=== PATIENT | male | born 1995 | race Caucasian/White ===

== ENCOUNTER 2021-09-25 18:02 | Inpatient (IN) | payer OTHER, SELFPAY ==
[2021-09-25] VITALS (12 sets, daily range): BP systolic 115–147; BP diastolic 67–98; PULSE 109–166; RESP 19–30; TEMP 36.6–37.1; O2SAT 97–100; BMI 24.6; BMI 24.7
--- NOTE | 2021-09-25 18:14 | EKG12_ITS ---
Test Reason : DYSRHYTHMIA Blood Pressure : / mmHG Vent. Rate : 145 BPM Atrial Rate : 145 BPM P-R Int : 112 ms QRS Dur : 088 ms QT Int : 300 ms P-R-T Axes : 059 076 062 degrees QTc Int : 466 ms Sinus tachycardia Otherwise normal ECG Confirmed by GRAYSON DELGADO, HIMA ([id number]), visual effects editor KEVIN BRANHAM ([id number]) on 09/27/2021 10:13:43 AM Referred By: ALFREDO Confirmed By:HIMA GALICIA MD
--- NOTE | 2021-09-25 18:15 | EX.ED.DYSGE1 ---
HPI History of Present Illness Chief Complaint: Hyperglycemia Detail of Chief Complaint: Blood sugar greater than 300 Informant: patient Onset/Context/Timing Onset: Today Context: Sudden Onset Timing: Continuous Quality: Elevated blood sugar, shortness of breath, upper respiratory infectious sym Location: Endocrine/respiratory Current Severity: Severe Maximum Severity: Severe Worsened by: Patient has not been compliant with diet. 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 He does endorse shortness of breath. He denies change in vision, polyuria polydipsia. He does endorse dry mouth and thirst. He denies fever, chills night sweats. He denies drainage from his ears or decreased hearing. He denies sore throat. Denies change in voice. Denies difficulty swallowing. He states he has not been compliant with his diet. Prior similar symptoms: Yes Recent Illness/Hospitalization: No PFSH PFS Medical History Diabetes HTN (hypertension) Home Medications Insulin Aspart [Novolog] See Protocol SUBCUT UD 12/29/14 [History Last Taken 09/25/21] atorvastatin 10 mg PO QHS 09/25/21 [History Last Taken 09/21/21] metoprolol succinate 25 mg PO DAILY 09/25/21 [History Last Taken 09/23/21] ramipril 10 mg PO DAILY 09/25/21 [History Last Taken 09/23/21] Allergy/AdvReac Type Severity Reaction Status Date / Time No Known Allergies Allergy Verified 09/25/21 18:04 Social History (Updated 09/25/21 @ 18:[address] Sachin Kennedy MD) household members: family Smoking Status: Never smoker substance use type: does not use ROS ROS ED Constitutional Constitutional ED: Denies chills, fever(s), subjective, sweats or weight loss Eyes Eyes: Denies blurry vision, change in vision or diplopia ENT ENT ED: Reports rhinorrhea; Denies ear pain or sore throat Cardiovascular Cardiovascular: Denies chest pain, orthopnea, palpitations or racing heartbeat Respiratory/Chest Respiratory/Chest: Reports cough and dyspnea; Denies dyspnea on exertion, orthopnea or sputum Gastrointestinal Gastrointestinal: Reports nausea; Denies abdominal pain, constipation, diarrhea, melena or vomiting Genitourinary Genitourinary ED: Denies dysuria, hematuria or urinary frequency Musculoskeletal Musculoskeletal: Denies arthralgias, back pain, myalgias or neck pain Integumentary Denies abscess, Abrasions or rash Neurologic Neurologic: Reports paresthesias; Denies headache(s) or weakness Endocrine Endocrinology: Denies polydipsia, polyphagia or polyuria EXAM Physical Exam Const Vital Signs: 09/25/21 18:03 09/25/21 18:16 09/25/21 18:52 Temperature 98.8 F Temperature Source Temporal Pulse Rate 146 H Respiratory Rate 30 H 28 H Respiratory Effort Short of Breath Respiratory Pattern Kussmaul Blood Pressure 136/98 H Blood Pressure Mean 110 Pulse Ox 100 Oxygen Delivery Method Room Air 09/25/21 19:04 Temperature Temperature Source Pulse Rate 140 H Respiratory Rate 25 H Respiratory Effort Respiratory Pattern Blood Pressure 135/82 H Blood Pressure Mean 99 Pulse Ox 97 Oxygen Delivery Method Room Air Positive well nourished and well developed General Appearance ED: well developed, pallor and other She is tachypneic. He has ketotic odor to his breath. He does not appear well. ; Negative for cyanotic, diaphoretic or NAD HEENT Reports TM's clear and dry mucous membranes HEENT Narrative: There is pain. There is no drainage. Uvula midline. There is no erythema or exudate. Negative for trauma or tenderness Tympanic Membrane ED: Yes TM's clear Mouth ED: Yes dry mucous membranes Mouth: dry mucous membranes Eyes PERRL and EOMs intact bilaterally General Eye ED: Negative for pale conjunctiva or scleral icterus Neck no lymphadenopathy, supple and no JVD Neck Narrative: There is no cervical lymphadenopathy. General: Negative for tenderness Resp No normal respiratory effort and clear to auscultation bilaterally Cardio regular rhythm, S1 normal heart sound, S2 normal heart sound and no murmurs Rate: tachycardic GI normal to inspection, nondistended, normoactive bowel sounds and non-tender Palpation: soft Extremity normal to inspection General Extremety ED: Negative for edema or tenderness General Extremity: Negative for edema Neuro oriented x3, CN's II-XII intact bilaterally and no sensory deficits noted Sensorium / Orientation: alert Motor Exam: strength 5/5 throughout Psych Mood & Affect: depressed Skin no rashes or lesions noted, no wounds and No skin turgor normal General Skin Exam: pallor; Negative for elasticity normal or jaundice MDM MDM MDM Narrative Medical decision making narrative: Clinically patient is in DKA. DKA order set was initiated. Chest x-ray obtained to evaluate for pneumonia. COVID swab and influenza swab to rule out. He will receive 2 L of normal saline. Potassium is 6.3. With peaked T waves we will treat with calcium gluconate. He also received 1 amp of bicarb. Lab Data Attestation: I reviewed the patient's lab results. Lab results narrative: White count is 30.5 thousand with shift. Blood cultures were ordered. This could be stress-induced. There is evidence of pseudohyponatremia, patient does have hyperkalemia with a potassium of 6.3. CO2 is 7 with an anion gap of 33. Blood sugar is 566. Acetone is large. Labs: Laboratory Results - last 24 hr 09/25/21 09/25/21 09/25/21 18:35 18:35 18:35 WBC 30.5 H* RBC 5.42 Hgb 16.6 H Hct 49.9 MCV 92.1 MCH 30.6 MCHC 33.3 RDW Std Deviation 41.3 RDW Coeff of Last 12.2 Plt Count 334 MPV 10.2 Immature Gran % (Auto) 1.100 H Neut % (Auto) 85.9 H Lymph % (Auto) 3.8 L [place] % (Auto) 8.6 Eos % (Auto) 0.1 Baso % (Auto) 0.5 Absolute Neuts (auto) 26.2 H Absolute Lymphs (auto) 1.17 Nucleated RBC % 0 Sodium 129 L Potassium 6.3 H* Chloride 89 L Carbon Dioxide 7.0 L* Anion Gap 33 H BUN 29 H Creatinine 2.18 H Estim Creat Clear Calc 60.23 Est GFR (MDRD) Af Amer 48 L Est GFR (MDRD) Non-Af 39 L BUN/Creatinine Ratio 13.3 Glucose 566 H* Calcium 9.4 Acetone Level LARGE H VBG reveals a metabolic acidosis with a pH of 6.9, PCO2 20.8, PO2 of 49.7, bicarb of 4.7 with a base excess of -27.1. ABG Data ABG results: ABG 09/25/21 18:49 Specimen Type BRITTNY VBG pH 6.96 L* VBG pO2 50 H VBG HCO3 5 L VBG Total CO2 5 L VBG O2 Sat (Calc) 63 VBG Base Excess -27 L POC Mix VBG pCO2 Pt Tmp 20.8 L O2 Delivery Device Room Air Crit Call To/Read Back Yes Blood Gas Notified Whom Kennedy Blood Gas Notified Time 18:50:44 Radiography Diagnostic Testing: Clinical Impression(s) from Imaging Studies Chest X-Ray 09/25/21 18:52 IMPRESSION: There are no acute findings. Electronically Signed: Tenzin Webb MD at 19:05 EDT , EKG Initial EKG: Attestation: I personally reviewed and interpreted this EKG as follows: Interpretation: Sinus Tachycardia (Ventricular rate is 145. T waves are peaked and raise concern for hyperkalemia. TX interval is 112 ms. QS duration 88 ms. QT duration 300 ms. 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
[2021-09-25] MEDS: Metoclopramide 10 MG/2 ML Vial 5 MG IV (18:36)
[2021-09-25] MEDS: 0.9% Normal Saline 1,000 ML 999 ML IV ×4 (18:41→21:45)
[2021-09-25 18:51] LABS: Absolute Lymphocyte Count 1.17 X10^3/uL (0.83-4.51); Absolute Neutrophil Count 26.2 X10^3/uL (2.0-7.7); Basophil# 0.14 X10^3/uL; Basophil% 0.5 % (0-1); Eosinophil# 0.02 X10^3/uL; Eosinophils% 0.1 % (0-5); Hematocrit 49.9 % (40-54); Hemoglobin 16.6 g/dL (13.0-16.5); Lymphocyte # 1.17 X10^3/ul (0.83-4.51); Lymphocyte % 3.8 % (19-41); Mean Corp Hgb Conc 33.3 g/dL (32-36); Mean Corpuscular Hgb 30.6 pg (27.0-32.0); Mean Corpuscular Volume 92.1 fL (80-94); Mean Platelet Vol. 10.2 fl (6.2-12.0); Monocyte# 2.63 X10^3/uL; Monocyte% 8.6 % (0-10); NRBC Flagged by Analyzer 0 % (0-5); Neutrophil % 85.9 % (47-70); POSITIVE COUNT YES; POSITIVE DIFFERENTIAL YES; Platelet Count 334 K/mm3 (150-450); RBC Distribution Width CV 12.2 % (11.6-14.6); RBC Distribution Width SD 41.3 fl (35.1-43.9); Red Blood Count 5.42 M/mm3 (4.6-6.2)
--- NOTE | 2021-09-25 18:52 | RAD_ITS ---
STUDY: X-RAY CHEST REASON FOR EXAM: Male, 26 years old. Upper respiratory infectious symptoms TECHNIQUE: XR Chest 1 View COMPARISON: Prior comparison studies are not available for review at this time. FINDINGS: There is no demonstrated pleural abnormality. Normal size heart. Normal mediastinum and tenzin. Normal visualized pulmonary arteries. Normal visualized aortic arch and descending thoracic aorta. Normal visualized thoracic spine. Normal visualized ribs, clavicles, and shoulders. There is no demonstrated abnormality of the visualized soft tissue structures of the upper abdomen. RAD/Chest 1 View (Portable) IMPRESSION: There are no acute findings. Electronically Signed: Tenzin Webb MD at 19:05 EDT ,
[2021-09-25 18:55] LABS: Differential Indicated SCAN CRITERIA MET; White Blood Count 30.5 K/mm3 (4.4-11.0)
--- NOTE | 2021-09-25 18:55 | ED.RN ---
wbc counts 30.5. dr garcia
[2021-09-25 18:56] LABS: Blood Gas Specimen Type VEN; O2 Delivery Device Room Air; VBG BASE EXCESS -27 mmol/L (-1.0-3.5); VBG Bicarbonate 5 mmol/L (22-26); VBG PO2 50 mmHg (25-40); VBG SO2 63 % (50-70); VBG TCO2 5 mmol/L (23-33); VBG pCO2 20.8 mmHg (41-51); VBG pH 6.96 (7.32-7.42)
[2021-09-25 19:05] LABS: Anion Gap 33 (5-15); BUN 29 mg/dL (7-18); BUN/Creat Ratio 13.3 RATIO (10-20); Calcium,Total 9.4 mg/dL (8.5-10.1); Chloride 89 mmol/L (98-107); Creatinine, Serum 2.18 mg/dL (0.70-1.30); EST Glomerular Filtration Rate 39 mL/min (>60); Est Glom Filt Rate - Afr Amer 48 mL/min (>60); Estimated Creatinine Clearance 60.23 ml/min; Glucose 566 mg/dL (74-106); Potassium 6.3 mmol/L (3.5-5.1); Sodium Level 129 mmol/L (136-145)
--- NOTE | 2021-09-25 19:21 | HP.PCM.HOS_ITS ---
HPI - General General Date of Admission: 09/25/21 Date of Service: 09/25/21 Chief Complaint: URI, nausea/emesis with elevated BS. HPI Narrative The patient is a 26 y/o M w/ PMHx: Diabetes mellitus type I, HTN who presents to the [facility] ED on 09/25/21 with history of elevated blood sugars greater than 300 with dyspnea as well as URI type symptoms which been worsening noted to be noncompliant with his oral intake with associated nausea with emesis and given significantly worsening fatigue, malaise, rhinorrhea and congestion as well as dyspnea prompted ED evaluation. Despite recent significant hyperglycemia patient denies any polyuria or polydipsia. 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 Work-up in the ED included T98.8, heart rate 146, BP 136/98, respiratory rate 30, 100% on room a ir, CBC with WC 30.5, hemoglobin 16.6, platelet 334 with left shift, VBG with pH 6.96, PO2 50, bicarb 5, total CO2 5, BMP with sodium 129, potassium 6.3, chloride 89, carbon oxide 7, anion gap 33, BUN/creat 29/2.18, glucose 566, acetone large, rapid COVID and influenza negative, chest x-ray with no acute cardiopulmonary findings, EKG with sinus tachycardia with T waves peaked consistent with patient's hyperkalemia with no acute evidence of ischemia. In the ED patient received 2 L normal saline, sodium bicarb 50 mill equivalent IV x1, Reglan 5 mg IV x1, calcium gluconate IV 1 g push x1, dextrose 10% water bolus x1, insulin drip. [facility] Medical History (Updated 09/25/21 @ 19:[address] Emy Salazar MD) Diabetes HTN (hypertension) Home Medications Insulin Aspart [Novolog] See Protocol SUBCUT UD 12/29/14 [History Last Taken 09/25/21] atorvastatin 10 mg PO QHS 09/25/21 [History Last Taken 09/21/21] metoprolol succinate 25 mg PO DAILY 09/25/21 [History Last Taken 09/23/21] ramipril 10 mg PO DAILY 09/25/21 [History Last Taken 09/23/21] Allergy/AdvReac Type Severity Reaction Status Date / Time No Known Allergies Allergy Verified 09/25/21 18:04 Family History (Updated 09/25/21 @ 19:[address] Emy Salazar MD) Mother Hypertension other (Denies any marked paternal family history including HD, DM, CA.) Surgical History (Updated 09/25/21 @ 19:[address] Emy Salazar MD) No history of previous surgery Social History (Updated 09/25/21 @ 19:[address] Emy Salazar MD) household members: none Smoking Status: Never smoker alcohol intake: current details: Will drink 2-5 drinks on the weekends. substance use type: does not use ROS ROS Narrative Admission Review of Systems: CONSTITUTIONAL: No weight loss, fever, chills, + weakness or fatigue. HEENT: + Sore throat, congestion, rhinorrhea. Eyes: No visual loss, blurred vision, double vision or yellow sclerae. Ears, Nose, Throat: No hearing loss, sneezing. SKIN: No rash or itching, lesions, wounds. CARDIOVASCULAR: No chest pain, chest pressure or chest discomfort, palpitations, edema, orthopnea, syncopal events. RESPIRATORY: + Shortness of breath, No cough or sputum, wheezing, hemoptysis. GASTROINTESTINAL: + Anorexia, nausea, vomiting, No diarrhea, abdominal pain, melena, BRBPR. GENITOURINARY: No dysuria, frequency, urgency or retention. NEUROLOGICAL: No headache, dizziness, syncope, paralysis, ataxia, numbness or tingling in the extremities, focal weakness, change in bowel or bladder control, seizure. MUSCULOSKELETAL: No muscle, back pain, joint pain or stiffness. HEMATOLOGIC: No anemia, bleeding or bruising. LYMPHATICS: No enlarged nodes. No history of splenectomy. PSYCHIATRIC: No history of depression or anxiety. ENDOCRINOLOGIC: No reports of sweating, cold or heat intolerance. No polyuria or polydipsia. ALLERGIES: No history of asthma, hives, eczema or rhinitis. Vital Signs Vital Signs Vital Signs: 09/25/21 18:03 09/25/21 18:16 09/25/21 18:52 Temperature 98.8 F Temperature Source Temporal Pulse Rate 146 H Respiratory Rate 30 H 28 H Respiratory Effort Short of Breath Respiratory Pattern Kussmaul Blood Pressure 136/98 H Blood Pressure Mean 110 Pulse Ox 100 Oxygen Delivery Method Room Air 09/25/21 19:04 Temperature Temperature Source Pulse Rate 140 H Respiratory Rate 25 H Respiratory Effort Respiratory Pattern Blood Pressure 135/82 H Blood Pressure Mean 99 Pulse Ox 97 Oxygen Delivery Method Room Air Weight Weight: 192 lb Body Mass Index (BMI) 24.6 Physical Exam Narrative Physical Examination: General: Awake, alert, oriented x 3 and cooperative, laying in the ED bed, fatigued and significantly ill-appearing, ketotic breath. Skin: Normal color, normal turgor, no icterus, no cyanosis. HEENT: AT/NC, EOMI, PERRLA, dry chapped MM, no carotid bruits or JVD noted. Lungs: Diminished, greater bases, mildly increased respiratory rate, no rales, ronchi or wheezing. Heart: Tachycardic with regular rhythm; no gallop, rub audible. Abdomen: Soft, NTTP, ND, hyperactive BS, no HSM. Extremities: No cyanosis, clubbing, or edema. Neurological: Patient awake, alert, oriented as noted, cognitive function in tact; pupils equally reactive to light and accommodation, cranial nerves II-XII grossly normal, moving all 4 extremities, no focal deficits, strength moderately to severely globally Angie secondary to acute presentation Psychiatric: Affect appears fatigued and ill-appearing no acute evidence of depressive or anxiety feelings. Results Lab / Micro Data Result Diagrams: 09/25/21 18:35 09/25/21 18:35 Labs: Laboratory Results - last 24 hr 09/25/21 18:35: WBC 30.5 H*, RBC 5.42, Hgb 16.6 H, Hct 49.9, MCV 92.1, MCH 30.6, MCHC 33.3, RDW Std Deviation 41.3, RDW Coeff of Last 12.2, Plt Count 334, MPV 10.2, Immature Gran % (Auto) 1.100 H, Neut % (Auto) 85.9 H, Lymph % (Auto) 3.8 L , [place] % (Auto) 8.6, Eos % (Auto) 0.1, Baso % (Auto) 0.5, Absolute Neuts (auto) 26.2 H, Absolute Lymphs (auto) 1.17, Nucleated RBC % 0 09/25/21 18:35: Sodium 129 L, Potassium 6.3 H*, Chloride 89 L, Carbon Dioxide 7.0 L*, Anion Gap 33 H, BUN 29 H, Creatinine 2.18 H, Estim Creat Clear Calc 60.23, Est GFR (MDRD) Af Amer 48 L, Est GFR (MDRD) Non-Af 39 L, BUN/Creatinine Ratio 13.3, Glucose 566 H*, Calcium 9.4 09/25/21 18:35: Acetone Level LARGE H Micro: Microbiology 09/25/21 18:37 Nasal Secretion SARS-CoV-2 & FLU Antigen (Rapid) - Final ABG Data ABG results: ABG 09/25/21 18:49 Specimen Type BRITTNY VBG pH 6.96 L* VBG pO2 50 H VBG HCO3 5 L VBG Total CO2 5 L VBG O2 Sat (Calc) 63 VBG Base Excess -27 L POC Mix VBG pCO2 Pt Tmp 20.8 L O2 Delivery Device Room Air Crit Call To/Read Back Yes Blood Gas Notified Whom Kennedy Blood Gas Notified Time 18:50:44 Radiology Impression Chest X-Ray 09/25/21 18:52 IMPRESSION: There are no acute findings. Electronically Signed: Tenzin Webb MD at 19:05 EDT Reading Location ID and State: [facility] [place] , Service support , Assessment & Plan Assessment/Plan (1) DKA (diabetic ketoacidoses): QUALIFIERS: Diabetes mellitus type: type 1 Diabetes mellitus complication detail: without coma Qualified Code(s): E10.10 - Type 1 diabetes mellitus with ketoacidosis without coma (2) Acute renal failure: QUALIFIERS: Acute renal failure type: unspecified Qualified Code(s): N17.9 - Acute kidney failure, unspecified (3) Acute hyperkalemia: PLAN: The patient is a 26 y/o M w/ PMHx: Diabetes mellitus type I, HTN who presents to the [facility] ED on 09/25/21 with history of elevated blood sugars greater than 300 with dyspnea as well as URI type symptoms which been worsening noted to be noncompliant with his oral intake with associated nausea with emesis however given significantly worsening fatigue, malaise, rhinorrhea and congestion as well as dyspnea prompted ED evaluation. #1. DKA w/ Diabetes mellitus type I with significant metabolic derangements: Patient administered IV bicarb bolus and started on insulin drip in the ED with additionally a 2 L normal saline bolus. Given hyperkalemia he also received calcium gluconate. Will admit to the ICU, consult curriculum specialist per protocol, continue on insulin drip, check serial K+, glucose w/ IVF changes pending these levels, serial chemistry, obtain mag, phos daily w/ repletion as needed, tr ansition to home SC regimen when gap closed w/ overlap on drip, nutrition consultation. Will give 1 additional IV bicarb bolus as well as 1 additional normal saline bolus prior to continue maintenance. Encouraged diet and insulin regimen compliance. Hemoglobin A1c requested. Will maintain on IV PPI while NPO. #2. Leukocytosis: Admission CBC with RBC 30.5, left shift noted, afebrile with recent URI type symptoms, blood culture pending, urinalysis requested and if appropriate will obtain urine culture, certainly could just be significant dehydration with #1, will repeat CBC in a.m. and continue treatment as noted. #3. Hyperkalemia: Admission potassium 6.3, not hemolyzed, received calcium gluconate and initiated on insulin drip in the ED as noted, will serially trend BMPs as noted #1 and if necessary may further aggressively treat however would expect potassium level to de-escalate given insulin usage. #4. Acute kidney injury: Secondary to acute presentation as noted #1. Admission BUN/Cr 29/2.18, prior baseline creatinine noted to be 0.8-1.0 primarily. Will hydrate aggressively as noted, hold nephrotoxic medications and repeat chemistry in AM. If no improvement would plan FeNa and consider renal ultrasound assessment. #5. Hypertension: Continue home regimen including metoprolol, holding ramipril given KATI as noted, PRN hydralazine. #6. DVT prophylaxis: SCDs, heparin. Charges/Coding Visit Charges Inpatient E&M: 52237 Init Hosp L3
--- NOTE | 2021-09-25 19:29 | ED.RN ---
ALL INSULIN HELD UNTIL 2000 ML NS INFUSED PER DR TAYLOR.
[2021-09-25 19:45] LABS: Bedside Glucose > 500 mg/dL (74-106)
[2021-09-25 19:45] LABS: Bedside Glucose 497 mg/dL (74-106)
[2021-09-25] MEDS: Calcium Gluconate 1 GM/10 ML Vial IVP (19:58)
[2021-09-25] MEDS: Sodium Bicarbonate 8.4% 50 ML Syringe 50 MEQ IV ×2 (19:59→20:39)
[2021-09-25 20:04] LABS: Platelet Estimate ADEQUATE (ADEQ); Red Cell Morphology NORM C+C NORMAL (NORM C&C)
[2021-09-25 20:19] LABS: AST(SGOT) 23 U/L (15-37); Alanine Aminotransfer ALT/SGPT 38 U/L (16-61); Albumin, Serum 4.7 g/dL (3.2-5.0); Alkaline Phosphatase 117 U/L (45-117); Bilirubin, Direct 0.15 mg/dL (0.00-0.30); Globulin 3.9 g/dL (2.2-4.2); Magnesium 2.6 mg/dL (1.6-2.6); Phosphorus 8.2 mg/dL (2.5-4.9); Protein, Total 8.6 g/dL (6.4-8.2)
[2021-09-25] MEDS: proCHLORPERazine 10 MG/2 ML Vial 5 MG IV (20:40)
[2021-09-25 21:26] LABS: Anion Gap 31 (5-15); BUN 29 mg/dL (7-18); BUN/Creat Ratio 15.1 RATIO (10-20); Calcium,Total 8.5 mg/dL (8.5-10.1); Chloride 98 mmol/L (98-107); Creatinine, Serum 1.92 mg/dL (0.70-1.30); EST Glomerular Filtration Rate 46 mL/min (>60); Est Glom Filt Rate - Afr Amer 55 mL/min (>60); Estimated Creatinine Clearance 68.38 ml/min; Glucose 477 mg/dL (74-106); Potassium 5.5 mmol/L (3.5-5.1); Sodium Level 136 mmol/L (136-145)
[2021-09-25 21:31] LABS: Bacteria 0 SEEN /hpf (None Seen); Mucous, Urine 0 SEEN /hpf (<or=2+); Red Blood Cells-Urine 0 SEEN /hpf (0-5); Squamous Epithelial Cells - UA 0 SEEN /hpf (0-5); White Blood Cells 0 SEEN /hpf (0-5)
[2021-09-25] MEDS: Heparin Injection (Vial) 5,000 UNIT/ML VIAL 5000 UNIT SC (21:37)
[2021-09-25] MEDS: Metoprolol Tartrate 5 MG/5 ML Vial IV (22:17)
[2021-09-25 22:18] LABS: Color, Urine Yellow (Yellow); Glucose, Dipstick 1000 mg/dl (Normal); Leukocyte Esterase-Dipstick Negative /ul (Negative); Nitrite-Dipstick Negative (Negative); Occult Blood-Urine 50 /ul (Negative); Protein-Dipstick 30 mg/dl (Negative); Specific Gravity, Urine 1.025 (1.002-1.030); Urine Bilirubin Dipstick Negative (Negative); Urine Clarity Clear (Clear); Urine Urobilinogen Normal (Normal)
[2021-09-25] MEDS: Haloperidol Lactate 5 MG/ML Vial IV (22:21)
[2021-09-25 22:38] LABS: Ketone-Dipstick 150 mg/dl (Negative)
[2021-09-25] MEDS: 0.9% Normal Saline 1,000 ML 150 ML IV (22:46)
[2021-09-25 23:20] LABS: Bedside Glucose 296 mg/dL (74-106)
[2021-09-25 23:20] LABS: Bedside Glucose 376 mg/dL (74-106)
[2021-09-26] VITALS (24 sets, daily range): BP systolic 114–150; BP diastolic 64–87; PULSE 78–127; RESP 15–24; TEMP 36.6–37.2; O2SAT 98–100
[2021-09-26 00:23] LABS: Anion Gap 24 (5-15); BUN 24 mg/dL (7-18); BUN/Creat Ratio 14.8 RATIO (10-20); Calcium,Total 7.7 mg/dL (8.5-10.1); Chloride 110 mmol/L (98-107); Creatinine, Serum 1.62 mg/dL (0.70-1.30); EST Glomerular Filtration Rate 55 mL/min (>60); Est Glom Filt Rate - Afr Amer 67 mL/min (>60); Estimated Creatinine Clearance 81.04 ml/min; Glucose 280 mg/dL (74-106); Potassium 5.6 mmol/L (3.5-5.1); Sodium Level 140 mmol/L (136-145)
[2021-09-26 01:06] LABS: Bedside Glucose 275 mg/dL (74-106)
[2021-09-26 01:06] LABS: Bedside Glucose 267 mg/dL (74-106)
[2021-09-26] MEDS: Sodium Bicarbonate 8.4% 50 ML Syringe 50 MEQ IV (01:22)
[2021-09-26] MEDS: Dext 5%-0.45% NS 1,000 ML 150 ML IV ×2 (02:13→09:07)
[2021-09-26 04:21] LABS: Bedside Glucose 243 mg/dL (74-106)
[2021-09-26 04:21] LABS: Bedside Glucose 265 mg/dL (74-106)
[2021-09-26 04:21] LABS: Bedside Glucose 244 mg/dL (74-106)
[2021-09-26 04:21] LABS: Absolute Lymphocyte Count 1.07 X10^3/uL (0.83-4.51); Absolute Neutrophil Count 19.5 X10^3/uL (2.0-7.7); Basophil# 0.03 X10^3/uL; Basophil% 0.1 % (0-1); Hematocrit 39.8 % (40-54); Hemoglobin 13.6 g/dL (13.0-16.5); Lymphocyte # 1.07 X10^3/ul (0.83-4.51); Lymphocyte % 4.8 % (19-41); Mean Corp Hgb Conc 34.2 g/dL (32-36); Mean Corpuscular Hgb 30.4 pg (27.0-32.0); Mean Corpuscular Volume 88.8 fL (80-94); Mean Platelet Vol. 9.7 fl (6.2-12.0); Monocyte# 1.68 X10^3/uL; Monocyte% 7.5 % (0-10); NRBC Flagged by Analyzer 0 % (0-5); Neutrophil # 19.49 X10^3/uL (2.7-7.7); Neutrophil % 86.7 % (47-70); POSITIVE DIFFERENTIAL YES; Platelet Count 214 K/mm3 (150-450); RBC Distribution Width CV 12.2 % (11.6-14.6); Red Blood Count 4.48 M/mm3 (4.6-6.2); White Blood Count 22.5 K/mm3 (4.4-11.0)
[2021-09-26 04:35] LABS: Differential Indicated SCAN CRITERIA MET
[2021-09-26 04:46] LABS: ALB/GLOB Ratio 1.1 RATIO (0.9-2.4); AST(SGOT) 18 U/L (15-37); Alanine Aminotransfer ALT/SGPT 30 U/L (16-61); Albumin, Serum 3.6 g/dL (3.2-5.0); Alkaline Phosphatase 80 U/L (45-117); Anion Gap 19 (5-15); BUN 19 mg/dL (7-18); BUN/Creat Ratio 12.2 RATIO (10-20); Calcium,Total 7.5 mg/dL (8.5-10.1); Chloride 112 mmol/L (98-107); Creatinine, Serum 1.56 mg/dL (0.70-1.30); EST Glomerular Filtration Rate 58 mL/min (>60); Est Glom Filt Rate - Afr Amer 70 mL/min (>60); Estimated Creatinine Clearance 84.16 ml/min; Globulin 3.2 g/dL (2.2-4.2); Glucose 258 mg/dL (74-106); Potassium 4.6 mmol/L (3.5-5.1); Protein, Total 6.8 g/dL (6.4-8.2); Sodium Level 141 mmol/L (136-145)
[2021-09-26 06:20] LABS: Bedside Glucose 229 mg/dL (74-106)
[2021-09-26 06:20] LABS: Bedside Glucose 246 mg/dL (74-106)
[2021-09-26 07:49] LABS: Hemoglobin A1c 9.8 % (3.8-5.6)
[2021-09-26 08:35] LABS: Bedside Glucose 236 mg/dL (74-106)
[2021-09-26 08:35] LABS: Bedside Glucose 242 mg/dL (74-106)
[2021-09-26 08:57] LABS: Anion Gap 13 (5-15); BUN 15 mg/dL (7-18); BUN/Creat Ratio 10.2 RATIO (10-20); Calcium,Total 7.7 mg/dL (8.5-10.1); Chloride 114 mmol/L (98-107); Creatinine, Serum 1.47 mg/dL (0.70-1.30); EST Glomerular Filtration Rate 62 mL/min (>60); Est Glom Filt Rate - Afr Amer 75 mL/min (>60); Estimated Creatinine Clearance 89.31 ml/min; Glucose 223 mg/dL (74-106); Potassium 3.9 mmol/L (3.5-5.1); Sodium Level 142 mmol/L (136-145)
[2021-09-26] MEDS: Heparin Injection (Vial) 5,000 UNIT/ML VIAL 5000 UNIT SC ×2 (09:09→22:34)
[2021-09-26] MEDS: Metoprolol(XL)Succ 25 MG Tablet PO (09:09)
[2021-09-26 09:10] LABS: Bedside Glucose 210 mg/dL (74-106)
--- NOTE | 2021-09-26 10:15 | CASEMGMT ---
RN TAMARA WELT POCKET MACHINE OPERATOR CM to room to meet with patient for initial transition planning/care coordination assessment. MARIOLA MCDONALD introduced self and role at [facility]. Pt voices understanding and consents to assessment at this time. Pt resting in bed in no distress at this time. Mother @ bedside. Pt agreeable to assessment w/mother in room. Pt is A/O at this time and answers all questions appropriately. Care providers, pharmacy, and demographics verified/updated at this time. PCP: Dr Rice @ [facility] in [place]. Mother and pt interested in pt getting PCP closer to home. Provided w/list of local PCP's. 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 Pt plans to switching to Dr Ontiveros. Has 1st appt w/GAS LINE REPAIRER @ Dr Ontiveros's office on 11/14/21 Preferred Pharmacy: [facility] Retail Insurance: MMO Prescription Benefit: Yes Living Will/HPOA: Pt does not currently have LW/HCPOA and declines info at this time. Pt made aware that he can contact as an out-pt and make appt in the future if he decides he would like to talk with someone about this or would like to utilize [facility] social work for advanced directive completion. Given Production Posting Clerk Rac card with information and contact number. Pt expresses understanding. LNOK: Mother, Iw[place]. Father, Vu Living Arrangements: Lives alone in one-story apartment. Independent. 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 Transportation: Pt states drives self and states no transportation concerns at this time. DME: Has a functioning glucometer w/supplies. Denies need for other DME HHC/SNF: No hx of either. No needs identified. Pt wishes to return home and states has no concerns with going home at time of discharge. CM to follow for any discharge planning/needs. Pt and mother voice no further concerns/needs at this time. Advised them to ask for CM if any further questions/concerns/needs arise. They voice understanding. PLAN: Home Madhavi HILARIO RN, CM
[2021-09-26 10:26] LABS: Bedside Glucose 192 mg/dL (74-106)
--- NOTE | 2021-09-26 11:10 | PN.HOSP_ITS ---
Subjective Subjective Patient seen and examined. He was lying comfortably in bed and had no active complaints. He had an uneventful night and review of systems otherwise negative. Blood sugar was down to 36 but anion gap still elevated. He remains on insulin drip. IV fluid. Objective Data Objective Data Vital Signs: Vital Signs Temp Pulse Resp BP Pulse Ox 99.0 F 104 H 19 H 134/82 H 99 09/26/21 08:00 09/26/21 10:00 09/26/21 10:00 09/26/21 10:00 09/26/21 10:00 Oxygen Delivery Method Room Air Weight: 190 lb 14.725 oz Body Mass Index (BMI) 24.7 Intake & Output: Intake and Output for Last 24 Hours 09/24/21 09/25/21 09/26/21 23:59 23:59 23:59 Intake Total 4124.98 / 4125.98 1662.24 / 1662.24 Output Total 750 / 1500 2950 / 2950 Balance 3374.98 / 2625.98 -1287.76 / -1287.76 Lab / Micro Data Result Diagrams: 09/26/21 04:15 09/26/21 08:30 Labs: Laboratory Results - last 24 hr 09/25/21 18:35: WBC 30.5 H*, RBC 5.42, Hgb 16.6 H, Hct 49.9, MCV 92.1, MCH 30.6, MCHC 33.3, RDW Std Deviation 41.3, RDW Coeff of Last 12.2, Plt Count 334, MPV 10.2, Immature Gran % (Auto) 1.100 H, Neut % (Auto) 85.9 H, Lymph % (Auto) 3.8 L , [place] % (Auto) 8.6, Eos % (Auto) 0.1, Baso % (Auto) 0.5, Absolute Neuts (auto) 26.2 H, Absolute Lymphs (auto) 1.17, Nucleated RBC % 0, Differential Comment , Diff Path Review May , Platelet Estimate ADEQUATE, RBC Morphology NORM C+C 09/25/21 18:35: Sodium 129 L, Potassium 6.3 H*, Chloride 89 L, Carbon Dioxide 7.0 L*, Anion Gap 33 H, BUN 29 H, Creatinine 2.18 H, Estim Creat Clear Calc 60.23, Est GFR (MDRD) Af Amer 48 L, Est GFR (MDRD) Non-Af 39 L, BUN/Creatinine Ratio 13.3, Glucose 566 H*, Calcium 9.4 09/25/21 18:35: Acetone Level LARGE H 09/25/21 18:35: Phosphorus 8.2 H, Magnesium 2.6, Total Bilirubin 0.80, Direct Bilirubin 0.15, AST 23, ALT 38, Alkaline Phosphatase 117, Total Protein 8.6 H, Albumin 4.7, Globulin 3.9 09/25/21 18:40: POC Glucose 497 H* 09/25/21 19:42: POC Glucose > 500 H* 09/25/21 20:52: Sodium 136, Potassium 5.5 H, Chloride 98, Carbon Dioxide 7.0 L*, Anion Gap 31 H, BUN 29 H, Creatinine 1.92 H, Estim Creat Clear Calc 68.38, Est GFR (MDRD) Af Amer 55 L, Est GFR (MDRD) Non-Af 46 L, BUN/Creatinine Ratio 15.1, Glucose 477 H*, Calcium 8.5 09/25/21 21:12: Urine Color Yellow, Urine Clarity Clear, Urine pH 5.0, Ur Specific [place] 1.025, Urine Protein 30 H, Urine Glucose (UA) 1000 H, Urine Ketones 150 A*, Urine Occult Blood 50 H, Urine Nitrite Negative, Urine Bilirubin Negative, Urine Urobilinogen Normal, Ur Leukocyte Esterase Negative, Urine RBC 0 SEEN, Urine WBC 0 SEEN, Ur Squamous Epith Cells 0 SEEN, Urine Bacteria 0 SEEN, Urine Mucus 0 SEEN 09/25/21 22:07: POC Glucose 376 H 09/25/21 23:01: POC Glucose 296 H 09/26/21 00:00: Sodium 140, Potassium 5.6 H, Chloride 110 H, Carbon Dioxide 6.0 L*, Anion Gap 24 H, BUN 24 H, Creatinine 1.62 H, Estim Creat Clear Calc 81.04, Est GFR (MDRD) Af Amer 67, Est GFR (MDRD) Non-Af 55 L, BUN/Creatinine Ratio 14.8, Glucose 280 H, Calcium 7.7 L 09/26/21 00:08: POC Glucose 267 H 09/26/21 01:00: POC Glucose 275 H 09/26/21 01:58: POC Glucose 243 H 09/26/21 03:03: POC Glucose 265 H 09/26/21 04:08: POC Glucose 244 H 09/26/21 04:15: Sodium 141, Potassium 4.6, Chloride 112 H, Carbon Dioxide 10.0 L , Anion Gap 19 H, BUN 19 H, Creatinine 1.56 H, Estim Creat Clear Calc 84.16, Est GFR (MDRD) Af Amer 70, Est GFR (MDRD) Non-Af 58 L, BUN/Creatinine Ratio 12.2, Glucose 258 H, Calcium 7.5 L, Total Bilirubin 0.70, AST 18, ALT 30, Alkaline Phosphatase 80, Total Protein 6.8, Albumin 3.6, Globulin 3.2, Albumin/Globulin Ratio 1.1 09/26/21 04:15: WBC 22.5 H, RBC 4.48 L, Hgb 13.6, Hct 39.8 L, MCV 88.8, MCH 30.4, MCHC 34.2, RDW Std Deviation 40.0, RDW Coeff of Last 12.2, Plt Count 214, MPV 9.7, Immature Gran % (Auto) 0.900, Neut % (Auto) 86.7 H, Lymph % (Auto) 4.8 L, [place] % (Auto) 7.5, Eos % (Auto) 0.0, Baso % (Auto) 0.1, Absolute Neuts (auto) 19.5 H, Absolute Lymphs (auto) 1.07, Nucleated RBC % 0, Diff Path Review September09/26/21 04:15: Hemoglobin A1c 9.8 H 09/26/21 05:07: POC Glucose 229 H 09/26/21 06:10: POC Glucose 246 H 09/26/21 07:08: POC Glucose 242 H 09/26/21 08:04: POC Glucose 236 H 09/26/21 08:30: Sodium 142, Potassium 3.9, Chloride 114 H, Carbon Dioxide 15.0 L , Anion Gap 13, BUN 15, Creatinine 1.47 H, Estim Creat Clear Calc 89.31, Est GFR (MDRD) Af Amer 75, Est GFR (MDRD) Non-Af 62, BUN/Creatinine Ratio 10.2, Glucose 223 H, Calcium 7.7 L 09/26/21 09:04: POC Glucose 210 H 09/26/21 10:18: POC Glucose 192 H Micro: Microbiology 09/25/21 22:35 Mucosa - Nasopharyngeal Respiratory Panel (PCR) - Final 09/25/21 18:37 Nasal Secretion SARS-CoV-2 & FLU Antigen (Rapid) - Final ABG Data ABG results: ABG 09/25/21 18:49 Specimen Type BRITTNY VBG pH 6.96 L* VBG pO2 50 H VBG HCO3 5 L VBG Total CO2 5 L VBG O2 Sat (Calc) 63 VBG Base Excess -27 L POC Mix VBG pCO2 Pt Tmp 20.8 L O2 Delivery Device Room Air Crit Call To/Read Back Yes Blood Gas Notified Whom Kennedy Blood Gas Notified Time 18:50:44 Radiography Diagnostic Testing: Radiology Impression Chest X-Ray 09/25/21 18:52 IMPRESSION: There are no acute findings. Electronically Signed: Tenzin Webb MD at 19:05 EDT Reading Location ID and State: [address] [place] [address] , Service support , Physical Exam Const alert, oriented x3 and no apparent distress Exam Limitations: no limitations and altered mental status HEENT head/scalp atraumatic, moist oral mucous membranes and oropharynx normal Head and Scalp: normocephalic Mouth: oral and palatal mucosa normal Eyes PERRL, EOMs intact bilaterally and conjunctivae normal Neck no lymphadenopathy and supple Resp normal respiratory effort, no retractions, no use of accessory muscles and clear to auscultation bilaterally Cardio regular rate, regular rhythm, S1 normal heart sound, S2 normal heart sound and no murmurs GI normal to inspection, nondistended, normoactive bowel sounds, soft to palpation, non-tender and non-distended Extremity normal to inspection, full ROM and no clubbing, cyanosis or edema Peripheral Pulses: Yes pulses 2+ throughout Skin Skin Narrative: resolving erythema over area of cellulitis on the posterior part of the RLE, near the alas. Neuro oriented x3, CN's II-XII intact bilaterally and moves all extremities Sensorium / Orientation: awake and alert Psych affect normal Assessment & Plan Assessment/Plan (1) DKA (diabetic ketoacidoses): QUALIFIERS: Diabetes mellitus type: type 1 Diabetes mellitus complication detail: without coma Qualified Code(s): E10.10 - Type 1 diabetes mellitus with ketoacidosis without coma (2) Acute renal failure: QUALIFIERS: Acute renal failure type: unspecified Qualified Code(s): N17.9 - Acute kidney failure, unspecified PLAN: #DKA in a known type 1 diabetic * Blood sugars trended down to 36 this morning. Anion gap is still elevated. * Continue insulin drip until anion gap closes. Continue hydration with IV fluids. * Keep n.p.o. Transition to subcu insulin once anion gap closes. * Check A1c. * #Hyperkalemia * Resolved. Potassium is 3.9 today. * #Anion gap metabolic acidosis * Due to DKA. Continue insulin drip and hydration with IV fluids. Serial BMPs to assess anion gap. * Bicarb is up to 15. Anion gap was 19 this morning but is now down to 13. * #KATI: * Creatinine was 2.18 on admission. * Likely prerenal from dehydration from DKA. * Creatinine now down to 1.47. * Continue hydration with IV fluid. #Leukocytosis: * Likely reactive. WBC is 22.5. Was 30.5 on admission. No clear evidence of infection. Will monitor. * Blood cultures pending. * #Hypertension: On metoprolol. Ramipril on hold on account of KATI and hyperkalemia Hyperlipidemia: On statin DVT prophylaxis: Heparin Charges/Coding Visit Charges Inpatient E&M: 32520 [facility] Hosp L3
[2021-09-26 11:16] LABS: Bedside Glucose 207 mg/dL (74-106)
[2021-09-26 12:10] LABS: Bedside Glucose 154 mg/dL (74-106)
[2021-09-26 12:25] LABS: Anion Gap 7 (5-15); BUN 14 mg/dL (7-18); Calcium,Total 7.9 mg/dL (8.5-10.1); Chloride 114 mmol/L (98-107); Creatinine, Serum 1.27 mg/dL (0.70-1.30); EST Glomerular Filtration Rate 73 mL/min (>60); Est Glom Filt Rate - Afr Amer 89 mL/min (>60); Estimated Creatinine Clearance 103.38 ml/min; Glucose 173 mg/dL (74-106); Potassium 3.6 mmol/L (3.5-5.1); Sodium Level 141 mmol/L (136-145)
[2021-09-26 13:40] LABS: Bedside Glucose 152 mg/dL (74-106)
--- NOTE | 2021-09-26 14:05 | CHAPLAIN ---
Type of Pastoral Visit _x__ Initial Visit ___ Follow-up Visit ___ On-call Visit ___ General Patient Visit ___ Spiritual Assessment ___ Family Conference ___ Bereavement ___ Rapid Response ___ Code Blue ___ Other (describe below) Pastoral Care Referral From _x__ Patient ___ Family ___ Nurse ___ Physician ___ Allergy Physician ___ Ripper Operator ___ Other (describe below) Sacrament/Intervention _x__ Active listening ___ Anointing ___ Moravian ___ Bereavement ___ Communion ___ Nicolasa exploration ___ _x__ Life review _x__ Prayer ___ Reconciliation ___ Sacrament of Sick _x__ Supportive presence ___ Wedding ___ Other (describe below) Pastoral Comments mother of patient is in room and ready to leave at this time; offer of support to patient; pt gives some details about current situation and health since he was 13; pt states learned to just live with it and not think much about it; 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
--- NOTE | 2021-09-26 14:10 | NURSING ---
patient administered 6 units of novolog via omnipod insulin pump in his left upper arm at this time
[2021-09-26 15:50] LABS: Bedside Glucose 183 mg/dL (74-106)
--- NOTE | 2021-09-26 16:34 | NURSING ---
report called to MS Juliana RN at this time
[2021-09-26] MEDS: Atorvastatin Calcium 10 MG Tablet PO (22:34)
[2021-09-26] MEDS: 0.9% Saline Lock 10 ML Syringe IV (22:41)
[2021-09-26 23:51] LABS: Bedside Glucose 63 mg/dL (74-106)
[2021-09-26 23:51] LABS: Bedside Glucose 64 mg/dL (74-106)
[2021-09-27 00:21] LABS: Bedside Glucose 196 mg/dL (74-106)
[2021-09-27 01:59] VITALS: PULSE 77
[2021-09-27 02:21] VITALS: BP 143/78; PULSE 73; RESP 16; TEMP 36.5; O2SAT 100
[2021-09-27] MEDS: 0.9% Saline Lock 10 ML Syringe IV (02:24)
[2021-09-27 05:59] VITALS: PULSE 68
[2021-09-27 07:02] VITALS: PULSE 76
[2021-09-27 07:11] LABS: Bedside Glucose 148 mg/dL (74-106)
[2021-09-27 07:52] VITALS: O2SAT 93
[2021-09-27 08:44] LABS: Absolute Lymphocyte Count 1.25 X10^3/uL (0.83-4.51); Absolute Neutrophil Count 7.3 X10^3/uL (2.0-7.7); Basophil# 0.01 X10^3/uL; Basophil% 0.1 % (0-1); Eosinophil# 0.01 X10^3/uL; Eosinophils% 0.1 % (0-5); Hematocrit 38.9 % (40-54); Hemoglobin 13.9 g/dL (13.0-16.5); Lymphocyte # 1.25 X10^3/ul (0.83-4.51); Lymphocyte % 13.2 % (19-41); Mean Corp Hgb Conc 35.7 g/dL (32-36); Mean Corpuscular Hgb 30.7 pg (27.0-32.0); Mean Corpuscular Volume 85.9 fL (80-94); Mean Platelet Vol. 9.4 fl (6.2-12.0); Monocyte# 0.92 X10^3/uL; Monocyte% 9.7 % (0-10); NRBC Flagged by Analyzer 0 % (0-5); Neutrophil # 7.27 X10^3/uL (2.7-7.7); Neutrophil % 76.6 % (47-70); Platelet Count 150 K/mm3 (150-450); RBC Distribution Width CV 12.6 % (11.6-14.6); RBC Distribution Width SD 39.5 fl (35.1-43.9); Red Blood Count 4.53 M/mm3 (4.6-6.2); White Blood Count 9.5 K/mm3 (4.4-11.0)
[2021-09-27 09:04] LABS: Anion Gap 9 (5-15); BUN 8 mg/dL (7-18); Calcium,Total 8.6 mg/dL (8.5-10.1); Chloride 108 mmol/L (98-107); Creatinine, Serum 0.89 mg/dL (0.70-1.30); EST Glomerular Filtration Rate 110 mL/min (>60); Est Glom Filt Rate - Afr Amer 133 mL/min (>60); Estimated Creatinine Clearance 147.52 ml/min; Glucose 137 mg/dL (74-106); Potassium 3.4 mmol/L (3.5-5.1); Sodium Level 139 mmol/L (136-145)
--- NOTE | 2021-09-27 09:37 | PCM.DC.SUM ---
Providers Date of Admission: 09/25/21 Primary Care Physician: Out of [facility] Doctor Reason For Visit: DKA, HYPERKALEMIA Diagnosis Discharge Diagnosis (1) DKA (diabetic ketoacidoses): Status: Acute Code(s): E13.10 - Other specified diabetes mellitus with ketoacidosis without coma Qualifiers: Diabetes mellitus type: type 1 Diabetes mellitus complication detail: without coma Qualified Code(s): E10.10 - Type 1 diabetes mellitus with ketoacidosis without coma (2) Acute renal failure: Status: Acute Qualifiers: Acute renal failure type: unspecified Qualified Code(s): N17.9 - Acute kidney failure, unspecified Medications at Discharge Home Medications Insulin Aspart [Novolog] See Protocol SUBCUT UD 12/29/14 atorvastatin 10 mg PO QHS 09/25/21 metoprolol succinate 25 mg PO DAILY 09/25/21 ramipril 10 mg PO DAILY 09/25/21 Hospital Course Operations None Procedures None Summary of Care Provided Minutes Spent on Discharge: 42 Hospital Course: Patient is a 26-year-old male with a past medical history as outlined which includes type 1 diabetes mellitus and hypertension. He was admitted through the ED on 09/25/2021 with a complaint of shortness of breath and upper respiratory symptoms as well as blood sugars more than 300. He also had associated nausea and vomiting and had been getting more tired. He also had rhinorrhea and congestion. 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 On admission blood sugars were elevated and sodium was 129 with elevated potassium of 6.3 and bicarb of 7 with anion gap of 33. COVID and influenza test were negative and he had large acetones in his blood. EKG showed peaked T waves consistent with hyperkalemia. He was admitted and managed for hyperkalemia as well as DKA in a known type I diabetic. He was aggressively hydrated with fluids and started on insulin drip. He was also given a bicarb bolus. A1c came back at 9.6. Of note patient also had KATI with creatinine of 2.18 with a baseline of around 0.8. This was all thought to be due to dehydration from his DKA. Anion gap subsequently closed and hyperglycemia resolved. Hyperkalemia also resolved as well as hyponatremia. Patient was transitioned back to his insulin pump. He said he was in the process of switching his account executive to [facility] and had an appointment scheduled soon. He remained stable and was discharged home on 09/27/2022. He was counseled to be compliant with his insulin pump. He is to follow-up with his primary care doctor and account executive within 1 to 2 weeks. Patient seen and examined prior to discharge. He had no active complaints and had an uneventful night. Review of systems otherwise negative. Labs and vitals reviewed. Home medication reviewed and reconciled. Physical Exam Const alert, oriented x3 and no apparent distress General Appearance: cooperative, comfortable and well kempt Exam Limitations: no limitations HEENT normocephalic, head/scalp atraumatic, hearing grossly normal bilaterally, moist oral mucous membranes and oropharynx normal Eyes PERRL, EOMs intact bilaterally and conjunctivae normal Neck no lymphadenopathy and supple Resp normal respiratory effort, no retractions, no use of accessory muscles and clear to auscultation bilaterally Cardio regular rate, regular rhythm, S1 normal heart sound, S2 normal heart sound and no murmurs GI normal to inspection, nondistended, normoactive bowel sounds, soft to palpation, non-tender and non-distended Extremity normal to inspection, full ROM and no clubbing, cyanosis or edema Neuro oriented x3, CN's II-XII intact bilaterally and moves all extremities Sensorium / Orientation: awake and alert Psych affect normal Weight / BMI Weight Weight: 196 lb 3.382 oz Body Mass Index (BMI) 24.7 ABG / Lab / Microbiology Data Result Diagrams: 09/27/21 08:38 09/27/21 08:38 Laboratory: Laboratory Results - last 24 hr 09/26/21 10:18: POC Glucose 192 H 09/26/21 11:08: POC Glucose 207 H 09/26/21 12:00: Sodium 141, Potassium 3.6, Chloride 114 H, Carbon Dioxide 20.0 L, Anion Gap 7, BUN 14, Creatinine 1.27, Estim Creat Clear Calc 103.38, Est GFR (MDRD) Af Amer 89, Est GFR (MDRD) Non-Af 73, BUN/Creatinine Ratio 11.0, Glucose 173 H, Calcium 7.9 L 09/26/21 12:00: POC Glucose 154 H 09/26/21 13:37: POC Glucose 152 H 09/26/21 15:46: POC Glucose 183 H 09/26/21 22:30: POC Glucose 64 L 09/26/21 22:50: POC Glucose 63 L 09/26/21 23:59: POC Glucose 196 H 09/27/21 06:57: POC Glucose 148 H 09/27/21 08:38: WBC 9.5, RBC 4.53 L, Hgb 13.9, Hct 38.9 L, MCV 85.9, MCH 30.7, MCHC 35.7, RDW Std Deviation 39.5, RDW Coeff of Last 12.6, Plt Count 150, MPV 9.4, Immature Gran % (Auto) 0.300, Neut % (Auto) 76.6 H, Lymph % (Auto) 13.2 L, [place] % (Auto) 9.7, Eos % (Auto) 0.1, Baso % (Auto) 0.1, Absolute Neuts (auto) 7.3, Absolute Lymphs (auto) 1.25, Nucleated RBC % 0 09/27/21 08:38: Sodium 139, Potassium 3.4 L, Chloride 108 H, Carbon Dioxide 22.0, Anion Gap 9, BUN 8, Creatinine 0.89, Estim Creat Clear Calc 147.52, Est GFR (MDRD) Af Amer 133, Est GFR (MDRD) Non-Af 110, BUN/Creatinine Ratio 9.0 L, Glucose 137 H, Calcium 8.6 Microbiology: Microbiology 09/25/21 22:35 Mucosa - Nasopharyngeal Respiratory Panel (PCR) - Final 09/25/21 18:37 Nasal Secretion SARS-CoV-2 & FLU Antigen (Rapid) - Final D/C Instructions Discharge Diet: 1800 Calorie Control Diet Discharge Activity: Return to Normal Activity Weight Bearing Status: Weight bearing as tolerated Call your doctor if you observe: Fever of 101 or Higher, Shortness of breath, Dizziness, Swelling in the ankles and Chest pain Meaningful Use Info Meaningful Use Diagnoses (Choose all that apply): None applicable Discharge Plan Admission Admit Date/Time: 09/25/21 19:27 Primary Reason for Your Visit: DKA Attending Provider: Chiquis Irwin Primary Care Provider: [facility] ,Out of Consulting Providers: Emy Salazar Instructions Patient Instructions: Ketoacidosis Ch Discharge Orders/Prescriptions Prescriptions: Continued Insulin Aspart [Novolog] 100 UNIT/ML Ml See Protocol unit subcut UD RF: 0 atorvastatin 10 mg Tablet 10 mg PO QHS RF: 0 ramipril 10 mg Capsule 10 mg PO DAILY RF: 0 metoprolol succinate 25 mg Capsule,Sprinkle,Er 24hr 25 mg PO DAILY RF: 0 Referrals / Follow Up: Yrn Pollock MD [NON-STAFF] - Paul Ontiveros MD [STAFF PHYSICIAN] - Within 2 Weeks [facility] Doctor,Out of [Primary Care Provider] - Disposition Disposition (needs filled in before D/C Order can be placed): Home, Self Care Charges/Coding Visit Charges Inpatient E&M: 36818 Disch Hosp
[2021-09-27 10:10] VITALS: BP 133/88; PULSE 73; RESP 18; TEMP 36.5; O2SAT 100
[2021-09-27] MEDS: Potassium Chloride Oral Tablet 20 MEQ 40 MEQ PO (10:22)
[2021-09-27 10:26] LABS: Pathologist Review Reviewed
[2021-09-27 10:31] LABS: Bedside Glucose 135 mg/dL (74-106)
[2021-09-27 10:33] LABS: Pathologist Review Reviewed
--- NOTE | 2021-09-27 12:04 | PHA.DC.MR ---
Pharmacy Service has performed discharge medication reconciliation for this patient. No new medications at time of discharge review. Medications reviewed are previously reported home medications. Went into patient's room to ask if he had any questions regarding hoe medication or insulin pump. No questions at this time. Home Medications Insulin Aspart [Novolog] See Protocol SUBCUT UD 12/29/14 atorvastatin 10 mg PO QHS 09/25/21 metoprolol succinate 25 mg PO DAILY 09/25/21 ramipril 10 mg PO DAILY 09/25/21 The patient's discharge medication list was reviewed for discrepancies and discrepancies were resolved.
== END 2021-09-27 11:16 | disposition home or self-care (01) | DRG 640 ==
LOC: ED 19:08 → ICU 19:35 → MS3 09-26 16:53
PROVIDERS: Admitting Provider Family Medicine; Emergency Provider Emergency Medicine; Visit Provider Student in an Organized Health Care Education/Training Program
DX: E87.5 Hyperkalemia (principal); E10.10 Type 1 diabetes mellitus with ketoacidosis without coma; N17.9 Acute kidney failure, unspecified; Z79.4 Long term (current) use of insulin; I10 Essential (primary) hypertension; E86.0 Dehydration; E78.5 Hyperlipidemia, unspecified; Z96.41 Presence of insulin pump (external) (internal); Z91.19 Patient's noncompliance with other medical treatment and regimen
CPT/HCPCS: 36415; 71045; 80048; 80053; 80076; 81001; 82009; 82803; 82962; 83036; 83735; 84100; 85025; 87040; 87428; 87633; 93005; 97802; 99285; J7030; A4216; J0610; J7799

== ENCOUNTER 2022-01-29 09:49 | Emergency (ER) | payer OTHER, SELFPAY ==
[2022-01-29 09:51] VITALS: BP 168/116; PULSE 118; RESP 16; TEMP 36.1; O2SAT 100; BMI 25.0
--- NOTE | 2022-01-29 10:24 | EX.ED.DYSGE1 ---
HPI History of Present Illness Chief Complaint: Hyperglycemia Informant: patient Onset/Context/Timing Onset: Yesterday Context: Gradual Onset Quality: 200's Associated Symptoms Associated Symptoms: n/v Narrative Narrative: 2 nights ago patient was drinking alcohol for the holiday weekend, he woke up yesterday morning vomiting, he had poor appetite and oral intake throughout the rest of the day, and vomiting persist today. His blood sugars been in the 200s, he wears an insulin pump for type 1 diabetes, he takes medications also for hypertension and hyperlipidemia. States he feels well otherwise, his insulin pump has been on and functioning, he has been trying to drink fluids but having trouble when he is vomiting which was worse yesterday morning than it was in the evening. He denies any pain. Denies any dyspnea. No syncope or other symptoms. No fevers or chills. No hematemesis or melena/bright red blood per rectum. [facility] Medical History (Updated 01/29/22 @ 15:[address] Lavell Patel MD) DM type 1 (diabetes mellitus, type 1) High cholesterol HTN (hypertension) Vitamin D deficiency Home Medications Insulin Aspart [Novolog] See Protocol subcut UD 12/29/14 [History Last Taken 09/25/21] atorvastatin 10 mg tablet 10 mg PO QHS cholesterol lowering 09/25/21 [History Last Taken 09/21/21] metoprolol succinate 25 mg capsule sprinkle, ext. release 24 hr 25 mg PO DAILY 09/25/21 [History Last Taken 09/23/21] Dexcom G6 Operator Assistant I Cementing (blood-glucose meter,continuous) #1 ea 11/14/21 [Rx Last Taken Unknown] Dexcom G6 Sensor (blood-glucose sensor) #9 ea 11/14/21 [Rx Last Taken Unknown] Dexcom G6 Transmitter (blood-glucose transmitter) #1 ea 11/14/21 [Rx Last Taken Unknown] Novolog U-100 Insulin aspart 100 unit/mL subcutaneous solution (insulin aspart U-100) 100 unit continuous subcutaneous infusion .continuous #90 mL 11/14/21 [Rx Last Taken Unknown] cholecalciferol (vitamin D3) 1,250 mcg (50,000 unit) capsule 1,250 mcg PO QWEEK #24 caps 11/14/21 [Rx Last Taken Unknown] insulin pump cart,automated,BT (Omnipod 5 G6 Pods (Gen 5) subcutaneous cartridge) #30 ea 11/14/21 [Rx Last Taken Unknown] insulin pump cartridge,automated dose,BT with controller subcutaneous (Omnipod 5 G6 Intro Kit (Gen 5) subcutaneous cartridge with controller) #1 ea 11/14/21 [Rx Last Taken Unknown] ramipril 10 mg capsule 10 mg PO BID #180 caps 11/14/21 [Rx Last Taken Unknown] Allergy/AdvReac Type Severity Reaction Status Date / Time No Known Allergies Allergy Verified 01/29/22 09:53 Family History Mother Hypertension Surgical History No history of previous surgery Social History household members: none Smoking Status: Never smoker alcohol intake: current details: Will drink 2-5 drinks on the weekends. substance use type: does not use ROS ROS ED Constitutional Constitutional ED: Reports malaise; Denies chills or fever(s) Eyes Eyes: Denies change in vision or diplopia ENT ENT ED: Denies rhinorrhea or sore throat Cardiovascular Cardiovascular: Denies chest pain or palpitations Respiratory/Chest Respiratory/Chest: Denies cough or dyspnea Gastrointestinal Gastrointestinal: Reports nausea and vomiting; Denies abdominal pain or diarrhea Genitourinary Genitourinary ED: Denies dysuria or hematuria Musculoskeletal Musculoskeletal: Denies back pain or neck pain Integumentary Denies abscess or rash Neurologic Neurologic: Denies headache(s), paresthesias or weakness Psychiatric Psychiatric: Denies anxiety or suicidal thoughts EXAM Physical Exam Const Vital Signs: 01/29/22 09:51 01/29/22 10:13 Temperature 97.0 F L Temperature Source Temporal Pulse Rate 118 H Respiratory Rate 16 Respiratory Pattern Normal Blood Pressure 168/116 H Blood Pressure Mean 133 Pulse Ox 100 Oxygen Delivery Method Room Air Positive well nourished and well developed General Appearance ED: well developed and NAD HEENT Reports moist mucous membranes normocephalic and atraumatic Eyes PERRL and EOMs intact bilaterally Neck full ROM and supple Resp normal respiratory effort and clear to auscultation bilaterally Cardio regular rate, regular rhythm and no murmurs Rate: tachycardic GI normal to inspection, nondistended, normoactive bowel sounds, non-tender and non-distended Auscultation: normoactive bowel sounds Palpation: soft Back/Spine no CVA tenderness General Back: other FROM Extremity normal to inspection General Extremety ED: Negative for edema, pulses abnormal or tenderness General Extremity: Negative for edema or pulses abnormal Neuro oriented x3, CN's II-XII intact bilaterally and no sensory deficits noted Sensorium / Orientation: awake and alert Motor Exam: strength 5/5 throughout Skin no rashes or lesions noted and no wounds MDM MDM MDM Narrative Medical decision making narrative: Patient was initially treated with IV fluids and Zofran, and screening labs were obtained, this showed a bicarb of 18 with an elevated anion gap at 17, consistent with mild DKA. I sent an acetone/ketone level which is elevated/positive as well as a venous pH which is barely acidotic at 7.34, however consistent with mild DKA. Since his blood sugars are only in the 200s, we started him on an insulin drip as well as D5 half-normal saline simultaneously, we ran this for less than 20 minutes before the nurse yariel a repeat BMP showing that his gap is closed and his bicarb is better at 20. We left him on insulin drip for another hour and repeated his blood sugar half-hour into that which was 160, repeated his chemistries again, bicarb is 24, gap is closed, blood sugar 145. He is feeling much better. Tolerating oral fluids. I do not think he needs to be admitted to the ICU since he really just needed an insulin drip for short period of time. He is reliable 26-year-old who is doing much better and is going to go home and eat, he will continue his insulin via pump as usual, we had a turned off while we were giving him IV insulin here. We discussed reasons to return he is comfortable with that plan. Lab Data Attestation: I reviewed the patient's lab results. Labs: Laboratory Results - last 24 hr 01/29/22 01/29/22 01/29/22 10:15 10:15 11:43 WBC 11.9 H RBC 5.10 Hgb 15.5 Hct 45.7 MCV 89.6 MCH 30.4 MCHC 33.9 RDW Std Deviation 40.8 RDW Coeff of Last 12.3 Plt Count 256 MPV 9.6 Immature Gran % (Auto) 0.500 Neut % (Auto) 76.1 H Lymph % (Auto) 10.5 L [place] % (Auto) 12.6 H Eos % (Auto) 0.0 Baso % (Auto) 0.3 Absolute Neuts (auto) 9.1 H Absolute Lymphs (auto) 1.25 Nucleated RBC % 0 Differential Comment COMMENT Diff Path Review May foll Sodium 136 Potassium 4.2 Chloride 101 Carbon Dioxide 18.0 L Anion Gap 17 H BUN 21 H Creatinine 1.05 Estim Creat Clear Calc 125.04 Est GFR (MDRD) Af Amer 110 Est GFR (MDRD) Non-Af 91 BUN/Creatinine Ratio 20.0 Glucose 239 H Calcium 10.0 Acetone Level MODERATE H POC Glucose 01/29/22 01/29/22 01/29/22 13:27 13:35 15:14 WBC RBC Hgb Hct MCV MCH MCHC RDW Std Deviation RDW Coeff of Last Plt Count MPV Immature Gran % (Auto) Neut % (Auto) Lymph % (Auto) [place] % (Auto) Eos % (Auto) Baso % (Auto) Absolute Neuts (auto) Absolute Lymphs (auto) Nucleated RBC % Differential Comment Diff Path Review Sodium 137 141 Potassium 4.4 3.6 Chloride 105 109 H Carbon Dioxide 20.0 L 24.0 Anion Gap 12 8 BUN 17 16 Creatinine 0.99 0.91 Estim Creat Clear Calc 132.62 144.28 Est GFR (MDRD) Af Amer 117 130 Est GFR (MDRD) Non-Af 97 107 BUN/Creatinine Ratio 17.1 17.5 Glucose 194 H 145 H Calcium 9.0 8.7 Acetone Level POC Glucose 174 H ABG Data ABG results: ABG 01/29/22 11:50 Specimen Type BRITTNY VBG pH 7.34 VBG pO2 54 H VBG HCO3 17 L VBG Total CO2 18 L VBG O2 Sat (Calc) 86 H VBG Base Excess -9 L POC Mix VBG pCO2 Pt Tmp 31.0 L Critical Care Time Critical Care Time: Yes Critical care time (excluding procedures): 30-74 minutes (45 min), Including time spent:, Discussing w/Patient &/or Family/Live Out Nanny and Performing Direct Patient Care at Bedside Discharge Plan Triage Chief Complaint: Hyperglycemia ED Provider: Lavell Patel Dx/Rx/DC Orders Clinical Impression: DKA (diabetic ketoacidosis) Instructions: Diabetic Ketoacidosis Prescriptions: No Action ramipril 10 mg capsule 10 mg PO BID Qty: 180 3RF insulin aspart U-100 [Novolog U-100 Insulin aspart] 100 unit/mL solution 100 unit continuous subcutaneous infusion .continuous Qty: 90 1RF (DME) Omnipod 5 G6 Intro Kit (Gen 5) Cartridge See Rx Instructions .Route Qty: 1 0RF Rx Instructions: As directed (DME) Omnipod 5 G6 Pods (Gen 5) Cartridge See Rx Instructions .Route Qty: 30 1RF Rx Instructions: 1 pod q 72 hours (DME) Dexcom G6 Operator Assistant I Cementing Misc See Rx Instructions .Route Qty: 1 0RF Rx Instructions: As directed (DME) Dexcom G6 Sensor Device See Rx Instructions .Route Qty: 9 1RF Rx Instructions: 1 sensor q 10 days (DME) Dexcom G6 Transmitter Device See Rx Instructions .Route Qty: 1 1RF Rx Instructions: 1 transmitter q 90 days cholecalciferol (vitamin D3) 1,250 mcg (50,000 unit) capsule 1,250 mcg PO QWEEK Qty: 24 0RF Insulin Aspart [Novolog] 100 UNIT/ML Ml See Protocol subcut UD Protocol: 6. Sliding Scale Insulin Custom Condition: mg/dl range Dose/Route: Number of Units Protocol Text: Custom Sliding Scale Label Comments: INSULIN PUMP- VARYING HOURLY BASAL RATE Rx Instructions: PT HAS INSULIN PUMP atorvastatin 10 mg Tablet 10 mg PO QHS metoprolol succinate 25 mg Capsule,Sprinkle,Er 24hr 25 mg PO DAILY Primary Care Provider: DEXTER DANIEL Referrals: DEXTER DANIEL [Other] - 1-2 Days if not improving Disposition Disposition: Home, Self Care
[2022-01-29] MEDS: Ondansetron 4 MG/2 ML Vial IV (10:33)
[2022-01-29] MEDS: 0.9% Normal Saline 1,000 ML 999 ML IV ×2 (10:33→13:39)
[2022-01-29] MEDS: Pantoprazole Sodium 40 MG Tablet PO (10:33)
[2022-01-29 10:48] LABS: Absolute Lymphocyte Count 1.25 X10^3/uL (0.83-4.51); Absolute Neutrophil Count 9.1 X10^3/uL (2.0-7.7); Basophil# 0.04 X10^3/uL; Basophil% 0.3 % (0-1); Hematocrit 45.7 % (40-54); Hemoglobin 15.5 g/dL (13.0-16.5); Lymphocyte # 1.25 X10^3/ul (0.83-4.51); Lymphocyte % 10.5 % (19-41); Mean Corp Hgb Conc 33.9 g/dL (32-36); Mean Corpuscular Hgb 30.4 pg (27.0-32.0); Mean Corpuscular Volume 89.6 fL (80-94); Mean Platelet Vol. 9.6 fl (6.2-12.0); Monocyte# 1.51 X10^3/uL; Monocyte% 12.6 % (0-10); NRBC Flagged by Analyzer 0 % (0-5); Neutrophil # 9.08 X10^3/uL (2.7-7.7); Neutrophil % 76.1 % (47-70); POSITIVE DIFFERENTIAL YES; Platelet Count 256 K/mm3 (150-450); RBC Distribution Width CV 12.3 % (11.6-14.6); RBC Distribution Width SD 40.8 fl (35.1-43.9); White Blood Count 11.9 K/mm3 (4.4-11.0)
[2022-01-29 10:49] LABS: Differential Indicated SCAN CRITERIA MET
[2022-01-29 11:01] LABS: Anion Gap 17 (5-15); BUN 21 mg/dL (7-18); Chloride 101 mmol/L (98-107); Creatinine, Serum 1.05 mg/dL (0.70-1.30); EST Glomerular Filtration Rate 91 mL/min (>60); Est Glom Filt Rate - Afr Amer 110 mL/min (>60); Estimated Creatinine Clearance 125.04 ml/min; Glucose 239 mg/dL (74-106); Potassium 4.2 mmol/L (3.5-5.1); Sodium Level 136 mmol/L (136-145)
[2022-01-29 11:55] LABS: Blood Gas Specimen Type VEN; VBG BASE EXCESS -9 mmol/L (-1.0-3.5); VBG Bicarbonate 17 mmol/L (22-26); VBG PO2 54 mmHg (25-40); VBG SO2 86 % (50-70); VBG TCO2 18 mmol/L (23-33); VBG pH 7.34 (7.32-7.42)
[2022-01-29 13:45] LABS: Bedside Glucose 174 mg/dL (74-106)
[2022-01-29 13:55] LABS: Anion Gap 12 (5-15); BUN 17 mg/dL (7-18); BUN/Creat Ratio 17.1 RATIO (10-20); Chloride 105 mmol/L (98-107); Creatinine, Serum 0.99 mg/dL (0.70-1.30); EST Glomerular Filtration Rate 97 mL/min (>60); Est Glom Filt Rate - Afr Amer 117 mL/min (>60); Estimated Creatinine Clearance 132.62 ml/min; Glucose 194 mg/dL (74-106); Potassium 4.4 mmol/L (3.5-5.1); Sodium Level 137 mmol/L (136-145)
[2022-01-29] MEDS: Dext 5%-0.45% NS 1,000 ML 100 ML IV (14:08)
--- NOTE | 2022-01-29 14:11 | ED.RN ---
PT. TURNED OFF OWN INSULIN PUMP AT 1410 IV INSULIN DRIP WAS STARTED.
[2022-01-29] MEDS: 0.9% Normal Saline 1,000 ML 500 ML IV (15:07)
[2022-01-29 15:36] LABS: Anion Gap 8 (5-15); BUN 16 mg/dL (7-18); BUN/Creat Ratio 17.5 RATIO (10-20); Calcium,Total 8.7 mg/dL (8.5-10.1); Chloride 109 mmol/L (98-107); Creatinine, Serum 0.91 mg/dL (0.70-1.30); EST Glomerular Filtration Rate 107 mL/min (>60); Est Glom Filt Rate - Afr Amer 130 mL/min (>60); Estimated Creatinine Clearance 144.28 ml/min; Glucose 145 mg/dL (74-106); Potassium 3.6 mmol/L (3.5-5.1); Sodium Level 141 mmol/L (136-145)
[2022-01-29 15:45] LABS: Bedside Glucose 160 mg/dL (74-106)
[2022-01-29 15:48] VITALS: BP 141/97; PULSE 80
[2022-01-30 15:46] LABS: Pathologist Review Reviewed
== END 2022-01-29 15:50 | disposition home or self-care (01) ==
PROVIDERS: Emergency Provider Emergency Medicine; Visit Provider Emergency Medicine
DX: E10.10 Type 1 diabetes mellitus with ketoacidosis without coma (principal); I10 Essential (primary) hypertension; E78.00 Pure hypercholesterolemia, unspecified; Z79.899 Other long term (current) drug therapy; Z96.41 Presence of insulin pump (external) (internal)
CPT/HCPCS: 80048; 82009; 82803; 82962; 85025; 96365; 96366; 96375; 99284; J7030; A4216; J2405; J7799

== ENCOUNTER 2022-05-03 13:25 | Emergency (ER) | payer OTHER, SELFPAY ==
[2022-05-03] VITALS (7 sets, daily range): BP systolic 120–158; BP diastolic 83–99; PULSE 91–124; RESP 16–25; TEMP 36.4–36.9; O2SAT 97–98; BMI 25.0
[2022-05-03 14:01] LABS: Bedside Glucose 107 mg/dL (74-106)
[2022-05-03 14:27] LABS: Absolute Lymphocyte Count 1.64 X10^3/uL (0.83-4.51); Absolute Neutrophil Count 3.4 X10^3/uL (2.0-7.7); Basophil# 0.06 X10^3/uL; Eosinophil# 0.08 X10^3/uL; Eosinophils% 1.3 % (0-5); Hematocrit 46.9 % (40-54); Hemoglobin 15.7 g/dL (13.0-16.5); Lymphocyte # 1.64 X10^3/ul (0.83-4.51); Lymphocyte % 27.1 % (19-41); Mean Corp Hgb Conc 33.5 g/dL (32-36); Mean Corpuscular Hgb 30.3 pg (27.0-32.0); Mean Corpuscular Volume 90.5 fL (80-94); Mean Platelet Vol. 10.7 fl (6.2-12.0); Monocyte# 0.86 X10^3/uL; Monocyte% 14.2 % (0-10); NRBC Flagged by Analyzer 0 % (0-5); Neutrophil # 3.38 X10^3/uL (2.7-7.7); Neutrophil % 55.9 % (47-70); POSITIVE COUNT YES; RBC Distribution Width CV 12.7 % (11.6-14.6); Red Blood Count 5.18 M/mm3 (4.6-6.2); White Blood Count 6.1 K/mm3 (4.4-11.0)
--- NOTE | 2022-05-03 14:31 | RAD_ITS ---
STUDY: X-RAY CHEST REASON FOR EXAM: Male, 26 years old. Altered mental status. Patient is diabetic. TECHNIQUE: Single AP portable view of the chest. COMPARISON: Comparison is made with prior examination 09/25/2021. FINDINGS: EKG electrodes are seen. The lungs are clear and expanded. There is no demonstrated pleural abnormality. Normal size heart. Normal mediastinum and tenzin. Normal visualized pulmonary arteries. Normal visualized aortic arch and descending thoracic aorta. Normal visualized thoracic spine. Normal visualized ribs, clavicles, and shoulders. There is no demonstrated abnormality of the visualized soft tissue structures of the upper abdomen. RAD/Chest 1 View (Portable) IMPRESSION: Normal x-ray examination of the chest. Electronically Signed: Sampson Hughes MD at 15:01 EST ,
--- NOTE | 2022-05-03 14:31 | EKG12_ITS ---
Test Reason : POSSIBLE SEIZURE Blood Pressure : / mmHG Vent. Rate : 095 BPM Atrial Rate : 095 BPM P-R Int : 136 ms QRS Dur : 094 ms QT Int : 352 ms P-R-T Axes : 057 056 045 degrees QTc Int : 442 ms Normal sinus rhythm Nonspecific T wave abnormality Abnormal ECG Confirmed by WOLFGANG DELGADO, SUMANTH ([id number]), acquisitions editor KEVIN BRANHAM ([id number]) on 05/07/2022 11:05:40 AM Referred By: SONIA Confirmed By:KIRAN GOSS MD
--- NOTE | 2022-05-03 14:32 | EX.ED.DYSGE1 ---
HPI History of Present Illness Chief Complaint: Hypoglycemia Narrative Narrative: 26-year-old male with history of type 1 diabetes with insulin pump presenting after witnessed seizure which occurred at school. 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 He sat down and apparently started to foam at the mouth. Another teacher grabbed him and laid him on the floor. He was put in a wheelchair. Its unknown how many minutes he had a seizure. On EMS arrival his blood sugar was 83 and they rechecked it and it was down to 60. Insulin pump was removed. Patient does not have a history of seizure disorder. His mother states that his blood sugars come down to 30 before without a seizure. He is complaining today of all of his muscles hurting. He states he was well prior to the seizure. He states he established with Dr. Matthews recently. [facility] Medical History DM type 1 (diabetes mellitus, type 1) High cholesterol HTN (hypertension) Vitamin D deficiency Home Medications Insulin Aspart [Novolog] See Protocol subcut UD 12/29/14 [History Last Taken 09/25/21] atorvastatin 10 mg tablet 10 mg PO QHS cholesterol lowering 09/25/21 [History Last Taken 09/21/21] metoprolol succinate 25 mg capsule sprinkle, ext. release 24 hr 25 mg PO DAILY 09/25/21 [History Last Taken 09/23/21] Dexcom G6 Mandate Retail [employer] Merchandiser (blood-glucose meter,continuous) #1 ea 11/14/21 [Rx Last Taken Unknown] Dexcom G6 Sensor (blood-glucose sensor) #9 ea 11/14/21 [Rx Last Taken Unknown] Dexcom G6 Transmitter (blood-glucose transmitter) #1 ea 11/14/21 [Rx Last Taken Unknown] Novolog U-100 Insulin aspart 100 unit/mL subcutaneous solution (insulin aspart U-100) 100 unit continuous subcutaneous infusion .continuous #90 mL 11/14/21 [Rx Last Taken Unknown] cholecalciferol (vitamin D3) 1,250 mcg (50,000 unit) capsule 1,250 mcg PO QWEEK #24 caps 11/14/21 [Rx Last Taken Unknown] insulin pump cart,automated,BT (Omnipod 5 G6 Pods (Gen 5) subcutaneous cartridge) #30 ea 11/14/21 [Rx Last Taken Unknown] insulin pump cartridge,automated dose,BT with controller subcutaneous (Omnipod 5 G6 Intro Kit (Gen 5) subcutaneous cartridge with controller) #1 ea 11/14/21 [Rx Last Taken Unknown] ramipril 10 mg capsule 10 mg PO BID #180 caps 11/14/21 [Rx Last Taken Unknown] Allergy/AdvReac Type Severity Reaction Status Date / Time No Known Allergies Allergy Verified 05/03/22 13:30 Family History Mother Hypertension Surgical History No history of previous surgery Social History household members: none Smoking Status: Never smoker alcohol intake: current details: Will drink 2-5 drinks on the weekends. substance use type: does not use EXAM Physical Exam Const Vital Signs: 05/03/22 13:26 05/03/22 13:28 05/03/22 14:38 Temperature 97.6 F L 97.6 F L 98.2 F Temperature Source Oral Oral Oral Pulse Rate 124 H 124 H 102 H Respiratory Rate 18 18 25 H Blood Pressure 120/95 H 120/95 H 127/94 H Blood Pressure Mean 103 103 105 Pulse Ox 98 98 97 Oxygen Delivery Method Room Air Room Air Room Air 05/03/22 14:54 05/03/22 16:49 05/03/22 18:26 Temperature 98.5 F Temperature Source Oral Pulse Rate 102 H 104 H 91 Respiratory Rate 18 18 20 H Blood Pressure 138/99 H 151/83 H 158/93 H Blood Pressure Mean 112 105 114 Pulse Ox 98 97 97 Oxygen Delivery Method Room Air Room Air Room Air Positive well nourished General Appearance ED: NAD; Negative for pallor HEENT Reports moist mucous membranes Eyes PERRL and EOMs intact bilaterally Chest Wall inspection of chest normal and palpation of chest normal Resp normal respiratory effort and clear to auscultation bilaterally Auscultation: Negative for rales, rhonchi or wheezes Cardio regular rhythm Rate: tachycardic GI normal to inspection, nondistended, normoactive bowel sounds Neuro oriented x3 and CN's II-XII intact bilaterally Sensorium / Orientation: alert Motor Exam: strength 5/5 throughout Psych mental status grossly normal Skin no rashes or lesions noted and no wounds General Skin Exam: Negative for jaundice or pallor MDM MDM MDM Narrative Medical decision making narrative: 26-year-old male with history of type 1 diabetes presenting with seizure. This was witnessed but all the details are unknown because the person that saw him was at school. It was reported that he did not fall and hit his head and was helped to the ground. Unknown seizure activity. The patient was evaluated about an hour and a half and after his seizure-like activity. He is awake and alert and no focal deficits. He complains of body aches. He states he is otherwise healthy before the seizure. No history of seizure disorder. Patient does wear an insulin pump. He states this was removed. Blood work is obtained and his CBC and CMP are fairly unremarkable. He does have an AST of 103 and an ALT of 108. Glucose is 103. He had a slight anion gap of 20. Other LFTs are normal. High-sensitivity troponin was 6. CPK 325. EKG was obtained to assess for dysrhythmia and on my interpretation this is sinus rhythm with a rate of 95 bpm with nonspecific changes. Chest x-ray monitor patient has no acute cardiopulmonary process and radiologist agree. Urinalysis is negative for infection. CT of the brain is negative for acute intracranial process. Patient had no return of seizure-like activity. I spoke with Dr. Paul Ontiveros regarding the patient as this is his regional cra. He had been question the patient as to whether he has a continuous glucose monitor. He states he does not have a continuous glucose monitor and tried to get this however insurance company did not believe it was medically necessary. He checks his own blood sugars. He had not had any low blood sugars prior to this. He has had some troubles in the recent past controlling high blood sugars but he states he has been doing well with this. Given that this is likely due to hypoglycemia no history of seizure disorder and he has no had return of seizure I feel he can safely be discharged home. Dr. Ontiveros wanted him to put his glucose monitor back on to control his blood sugars but also wanted to check his blood sugars more frequently. She recommended that he stay with family this weekend so that he can be monitored. He was amenable to this. She recommended checking a urine drug screen to be safe. I do not believe the patient needs to stay for the result of this. He will follow-up with Dr. Ontiveros as an outpatient. Impression: 1. History of type 1 diabetes 2. Seizure-like activity 3. Hyperglycemia Lab Data Attestation: I reviewed the patient's lab results. Labs: Laboratory Results - last 24 hr 05/03/22 05/03/22 05/03/22 13:36 13:41 13:41 WBC 6.1 RBC 5.18 Hgb 15.7 Hct 46.9 MCV 90.5 MCH 30.3 MCHC 33.5 RDW Std Deviation 42.0 RDW Coeff of Last 12.7 Plt Count MPV 10.7 Immature Gran % (Auto) 0.500 Neut % (Auto) 55.9 Lymph % (Auto) 27.1 [place] % (Auto) 14.2 H Eos % (Auto) 1.3 Baso % (Auto) 1.0 Absolute Neuts (auto) 3.4 Absolute Lymphs (auto) 1.64 Nucleated RBC % 0 Platelet Estimate ADEQUATE Sodium 141 Potassium 3.9 Chloride 105 Carbon Dioxide 16.0 L Anion Gap 20 H BUN 10 Creatinine 1.17 Estim Creat Clear Calc 109.08 Est GFR (MDRD) Af Amer 97 Est GFR (MDRD) Non-Af 80 BUN/Creatinine Ratio 8.5 L Glucose 103 Calcium 9.4 Total Bilirubin 0.60 AST 103 H ALT 108 H Alkaline Phosphatase 97 Total Creatine Kinase Troponin I High Sens Total Protein 8.0 Albumin 4.3 Globulin 3.7 Albumin/Globulin Ratio 1.2 Urine Color Urine Clarity Urine pH Ur Specific [place] Urine Protein Urine Glucose (UA) Urine Ketones Urine Occult Blood Urine Nitrite Urine Bilirubin Urine Urobilinogen Ur Leukocyte Esterase Urine RBC Urine WBC Ur Squamous Epith Cells Urine Bacteria Urine Mucus POC Glucose 107 H 05/03/22 05/03/22 05/03/22 13:41 14:15 15:45 WBC RBC Hgb Hct MCV MCH MCHC RDW Std Deviation RDW Coeff of Last Plt Count MPV Immature Gran % (Auto) Neut % (Auto) Lymph % (Auto) [place] % (Auto) Eos % (Auto) Baso % (Auto) Absolute Neuts (auto) Absolute Lymphs (auto) Nucleated RBC % Platelet Estimate Sodium Potassium Chloride Carbon Dioxide Anion Gap BUN Creatinine Estim Creat Clear Calc Est GFR (MDRD) Af Amer Est GFR (MDRD) Non-Af BUN/Creatinine Ratio Glucose Calcium Total Bilirubin AST ALT Alkaline Phosphatase Total Creatine Kinase 325 H Troponin I High Sens 6 Total Protein Albumin Globulin Albumin/Globulin Ratio Urine Color Yellow Urine Clarity Clear Urine pH 7.0 Ur Specific [place] 1.015 Urine Protein 100 H Urine Glucose (UA) 250 H Urine Ketones 15 H Urine Occult Blood 50 H Urine Nitrite Negative Urine Bilirubin Negative Urine Urobilinogen Normal Ur Leukocyte Esterase Negative Urine RBC 0-5 SEEN Urine WBC 0-5 SEEN Ur Squamous Epith Cells 0 SEEN Urine Bacteria 0 SEEN Urine Mucus 0 SEEN POC Glucose 114 H Radiography Diagnostic Testing: Clinical Impression(s) from Imaging Studies Chest X-Ray 05/03/22 14:31 IMPRESSION: Normal x-ray examination of the chest. Electronically Signed: Sampson Hughes MD at 15:01 EST , Brain CT 05/03/22 17:09 IMPRESSION: 1. No intracranial mass, hemorrhage or acute territorial infarct. 2. No structural abnormality identified to correspond to the history of seizure. 3. No radiographically significant sinus disease.. Electronically Signed: Tesfaye Obregon MD at 17:54 EST , Discharge Plan Triage Chief Complaint: Hypoglycemia ED Provider: Dipesh Corrales Dx/Rx/DC Orders Instructions: ED Diabetic Insulin Reaction, ED Seizure New Onset Unknown ... Prescriptions: No Action ramipril 10 mg capsule 10 mg PO BID Qty: 180 3RF insulin aspart U-100 [Novolog U-100 Insulin aspart] 100 unit/mL solution 100 unit continuous subcutaneous infusion .continuous Qty: 90 1RF (DME) Omnipod 5 G6 Intro Kit (Gen 5) Cartridge See Rx Instructions .Route Qty: 1 0RF Rx Instructions: As directed (DME) Omnipod 5 G6 Pods (Gen 5) Cartridge See Rx Instructions .Route Qty: 30 1RF Rx Instructions: 1 pod q 72 hours (DME) Dexcom G6 Mandate Retail Service Merchandiser Misc See Rx Instructions .Route Qty: 1 0RF Rx Instructions: As directed (DME) Dexcom G6 Sensor Device See Rx Instructions .Route Qty: 9 1RF Rx Instructions: 1 sensor q 10 days (DME) Dexcom G6 Transmitter Device See Rx Instructions .Route Qty: 1 1RF Rx Instructions: 1 transmitter q 90 days cholecalciferol (vitamin D3) 1,250 mcg (50,000 unit) capsule 1,250 mcg PO QWEEK Qty: 24 0RF Insulin Aspart [Novolog] 100 UNIT/ML Ml See Protocol subcut UD Protocol: 6. Sliding Scale Insulin Custom Condition: mg/dl range Dose/Route: Number of Units Protocol Text: Custom Sliding Scale Label Comments: INSULIN PUMP- VARYING HOURLY BASAL RATE Rx Instructions: PT HAS INSULIN PUMP atorvastatin 10 mg Tablet 10 mg PO QHS metoprolol succinate 25 mg Capsule,Sprinkle,Er 24hr 25 mg PO DAILY Primary Care Provider: Jarocho Rice Referrals: Jarocho Rice [Other] Paul Ontiveros MD [Med Staff - Courtesy Staff] - As soon as possible Disposition Disposition: Home, Self Care
[2022-05-03 14:35] LABS: Bedside Glucose 114 mg/dL (74-106)
[2022-05-03 14:35] LABS: ALB/GLOB Ratio 1.2 RATIO (0.9-2.4); AST(SGOT) 103 U/L (15-37); Alanine Aminotransfer ALT/SGPT 108 U/L (16-61); Albumin, Serum 4.3 g/dL (3.2-5.0); Alkaline Phosphatase 97 U/L (45-117); Anion Gap 20 (5-15); BUN 10 mg/dL (7-18); BUN/Creat Ratio 8.5 RATIO (10-20); Calcium,Total 9.4 mg/dL (8.5-10.1); Chloride 105 mmol/L (98-107); Creatinine, Serum 1.17 mg/dL (0.70-1.30); EST Glomerular Filtration Rate 80 mL/min (>60); Est Glom Filt Rate - Afr Amer 97 mL/min (>60); Estimated Creatinine Clearance 109.08 ml/min; Globulin 3.7 g/dL (2.2-4.2); Glucose 103 mg/dL (74-106); Potassium 3.9 mmol/L (3.5-5.1); Sodium Level 141 mmol/L (136-145)
[2022-05-03] MEDS: 0.9% Normal Saline 1,000 ML 999 ML IV (14:52)
[2022-05-03 14:55] LABS: Differential Indicated SCAN CRITERIA MET
[2022-05-03 14:56] LABS: Platelet Estimate ADEQUATE (ADEQ)
[2022-05-03 15:20] LABS: CPK Total, Creatine Kinase 325 U/L (39-308); Troponin-I HS 6 pg/mL (3.0-78.0)
[2022-05-03 15:54] LABS: Bacteria 0 SEEN /hpf (None Seen); Mucous, Urine 0 SEEN /hpf (<or=2+); Squamous Epithelial Cells - UA 0 SEEN /hpf (0-5)
[2022-05-03 15:59] LABS: Color, Urine Yellow (Yellow); Glucose, Dipstick 250 mg/dl (Normal); Ketone-Dipstick 15 mg/dl (Negative); Leukocyte Esterase-Dipstick Negative /ul (Negative); Nitrite-Dipstick Negative (Negative); Occult Blood-Urine 50 /ul (Negative); Protein-Dipstick 100 mg/dl (Negative); Specific Gravity, Urine 1.015 (1.002-1.030); Urine Bilirubin Dipstick Negative (Negative); Urine Clarity Clear (Clear); Urine Urobilinogen Normal (Normal)
[2022-05-03 16:06] LABS: Red Blood Cells-Urine 0-5 SEEN /hpf (0-5); White Blood Cells 0-5 SEEN /hpf (0-5)
--- NOTE | 2022-05-03 17:09 | CT_ITS ---
INDICATION: seizure EXAMINATION: CT BRAIN - CT Head or Brain W/O Contrast Injection TECHNIQUE: Multiple axial images were obtained of the head without intravenous contrast. A radiation dose optimization technique was used for this scan. IV Contrast dosage and agent: None. RADIATION DOSAGE (If Supplied By Facility): CTDIvol = ( 44.99 ) mGy, DLP = ( 846.73 ) mGycm COMPARISON: No relevant prior examinations for comparison FINDINGS: HEMISPHERES: 1. The cerebral parenchyma, ventricular system, subarachnoid spaces have normal configuration and density. There is a normal gyral pattern. There is normal koch/white differentiation. No midline shift.. 2. The hemispheric white matter has normal appearance. 3. No intraparenchymal mass, hemorrhage, or acute territorial infarct. CEREBELLUM - BRAINSTEM: The cerebellum, brainstem, basilar and suprasellar cisterns have normal appearance. No Chiari malformation. PITUITARY: Infundibulum and pituitary have normal configuration. Midline structures appear normal. CSF SPACES: Appropriate for age. No hydrocephalus. Basal cisterns are patent. VESSELS: 1. No significant vascular calcifications in the cavernous carotid vessels. 2. No hyperdense vascular signs noted.. ORBITS AND PARANASAL SINUSES: 1. Normal appearance of the bony orbits. Normal appearance of the globes and retrobulbar soft tissues.. 2. Paranasal sinuses are clear. BONY ELEMENTS: Bony elements of the cranial vault, facial skeleton and skull base have normal appearance. SCALP AND SOFT TISSUES: Normal appearance of the soft tissues of the scalp and the visualized face OTHER: None ASPECTS Score for Acute Strokes: 10 CT/Brain/Head without Contrast IMPRESSION: 1. No intracranial mass, hemorrhage or acute territorial infarct. 2. No structural abnormality identified to correspond to the history of seizure. 3. No radiographically significant sinus disease.. Electronically Signed: Tesfaye Obregon MD at 17:54 EST ,
== END 2022-05-03 19:44 | disposition home or self-care (01) ==
PROVIDERS: Emergency Provider Student in an Organized Health Care Education/Training Program; Visit Provider Student in an Organized Health Care Education/Training Program
DX: R56.9 Unspecified convulsions (principal); E10.65 Type 1 diabetes mellitus with hyperglycemia; E10.649 Type 1 diabetes mellitus with hypoglycemia without coma; I10 Essential (primary) hypertension; Z96.41 Presence of insulin pump (external) (internal); E78.00 Pure hypercholesterolemia, unspecified
CPT/HCPCS: 70450; 71045; 80053; 81001; 82550; 82962; 84484; 85025; 93005; 99283; J7030; A4216

== ENCOUNTER 2022-06-01 13:48 | Emergency (ER) | payer OTHER, SELFPAY ==
[2022-06-01 13:49] VITALS: BP 160/122; PULSE 104; RESP 15; TEMP 36.2; O2SAT 100; BMI 26.4
--- NOTE | 2022-06-01 14:10 | EDS_ITS ---
HPI History of Present Illness Chief Complaint: Allergic Reaction Narrative Narrative: 27-year-old male past medical history of hypertension, depression and anxiety, diabetes, with an insulin pump presents with tongue pain and swelling after he took mirtazapine on evening. He states he went to the counseling center and was started on a new medication for depression/anxiety. He had not been taking anything else previous. He took a dose of this on evening, 2 days ago. He awoke with tongue pain and swelling and lesions on the side of his tongue. He also experienced nausea and vomiting which has resolved. He states his blood sugar has been low because he has not been eating. He turned off his insulin pump. He denies any fevers or chills. No difficulty breathing or throat swelling. He states it is only my tongue. [facility] Medical History (Updated 06/01/22 @ 15:00 by Ammon Nice MD) Depression Diabetes mellitus type 1 High cholesterol HTN (hypertension) Presence of insulin pump Vitamin D deficiency Home Medications Insulin Aspart [Novolog] See Protocol subcut UD 12/29/14 [History Last Taken 09/25/21] atorvastatin 10 mg tablet 10 mg PO QHS cholesterol lowering 09/25/21 [History Last Taken 09/21/21] metoprolol succinate 25 mg capsule sprinkle, ext. release 24 hr 25 mg PO DAILY 09/25/21 [History Last Taken 09/23/21] Dexcom G6 Teleprinter Installer (blood-glucose meter,continuous) #1 ea 11/14/21 [Rx Last Taken Unknown] Dexcom G6 Sensor (blood-glucose sensor) #9 ea 11/14/21 [Rx Last Taken Unknown] Dexcom G6 Transmitter (blood-glucose transmitter) #1 ea 11/14/21 [Rx Last Taken Unknown] cholecalciferol (vitamin D3) 1,250 mcg (50,000 unit) capsule 1,250 mcg PO QWEEK #24 caps 11/14/21 [Rx Last Taken Unknown] insulin pump cart,automated,BT (Omnipod 5 G6 Pods (Gen 5) subcutaneous cartridge) #30 ea 11/14/21 [Rx Last Taken Unknown] insulin pump cartridge,automated dose,BT with controller subcutaneous (Omnipod 5 G6 Intro Kit (Gen 5) subcutaneous cartridge with controller) #1 ea 11/14/21 [Rx Last Taken Unknown] ramipril 10 mg capsule 10 mg PO BID #180 caps 11/14/21 [Rx Last Taken Unknown] Novolog U-100 Insulin aspart 100 unit/mL subcutaneous solution (insulin aspart U-100) 100 unit continuous subcutaneous infusion .continuous #90 mL 05/29/22 [Rx Last Taken Unknown] mirtazapine 30 mg tablet 30 mg PO DAILY 06/01/22 [History Last Taken Unknown] nystatin 100,000 unit/mL oral suspension 4 ml PO Q6H Oral Karen 7 days #112 mL 06/01/22 [Rx Last Taken Unknown] Allergy/AdvReac Type Severity Reaction Status Date / Time No Known Allergies Allergy Verified 06/01/22 13:49 Family History Mother Hypertension Surgical History No history of previous surgery Social History household members: none Smoking Status: Never smoker alcohol intake: current details: Will drink 2-5 drinks on the weekends. substance use type: does not use ROS ROS ED ROS Narrative Constitutional: No fever, no chills. Low blood sugar. HEENT: No sore throat. No neck pain. No loss of vision. No rhinorrhea. Positive tongue pain and swelling with lesions on the side. Cardiovascular: No chest pain. No palpitations. No pedal edema. Respiratory: No cough, no shortness of breath. Abdominal: No abdominal pain. No nausea, no vomiting currently-resolved Genitourinary: No dysuria. No hematuria. Musculoskeletal: No myalgias. No arthralgias. Neurologic: No headaches. No dizziness. No lightheadedness. Skin: No rash. No change in color. Psychiatric: No depression. No anxiety. EXAM Physical Exam Narrative Exam Narrative: Afebrile. Vital signs noted. HEENT: Normocephalic. Atraumatic. PERRL, EOMI. Neck soft and supple. No point tenderness or step off. Airway patent. No drooling or trismus. Positive sores on sides of tongue, white in nature with open sores, no active bleeding with minimal amount of swelling, more consistent with thrush. Positive xerostomia, no Mike angina. Cardiovascular: Regular rate and rhythm with intermittent tachycardia no murmurs, rubs, or gallops appreciated. Respiratory: No tachypnea. Lungs clear to auscultation bilaterally. Gastrointestinal: Abdomen soft, nontender, with normoactive bowel sounds. No rebound or guarding. Neurological: Awake. Alert. Nonfocal, nonlateralizing. Skin: No rash. Normal color. No pallor. Musculoskeletal: No pedal edema. Full range of motion extremities. Const Vital Signs: 06/01/22 13:49 06/01/22 14:25 Temperature 97.2 F L Temperature Source Temporal Pulse Rate 104 H 80 Respiratory Rate 15 16 Blood Pressure 160/122 H 161/107 H Blood Pressure Mean 134 125 Pulse Ox 100 96 Oxygen Delivery Method Room Air Room Air MDM MDM MDM Narrative Medical decision making narrative: I do feel that he has more of a side effect from his mirtazapine. In review of [facility], xerostomia is a common side effect. It may have been coincidental that he developed thrush from the xerostomia. He was administered Benadryl 50 mg intravenously and I will check his labs in the form of CBC and CMP as he is a diabetic. His [id number]-hnos glucose is appropriately elevated at 74. I am reluctant to give him a large amount of IV fluids so as not to lower his blood sugar. His insulin pump remained off. I obtained and reviewed his CBC which shows a normal white count of 9.8, hemoglobin stable at 15.5, hematocrit 43.3, platelet count 169. CMP shows potassium slightly low at 3.4, patient declined oral potassium replacement at this point in time, and he will have his potassium rechecked in a few days after altering his diet. Glucose is appropriately elevated at 104. AST is slightly elevated at 103 with ALT of 74 which I think is nonspecific. His heart rate has improved to 80 currently. I will treat this as thrush and he was written a prescription for nystatin swish and swallow to perform 4 times a day for the next 7 days. He will follow-up with his primary care physician regarding this. Regardless, I do feel he can be discharged safely home with follow-up. He will check his sugar and restart his insulin pump and perform his sliding scale as directed, and avoid use of mirtazapine. He will contact counseling center regarding this. Disposition is discharged home in stable condition. Lab Data Attestation: I reviewed the patient's lab results. Labs: Laboratory Results - last 24 hr 06/01/22 06/01/22 06/01/22 14:06 14:24 14:24 WBC 9.8 RBC 4.84 Hgb 15.5 Hct 43.3 MCV 89.5 MCH 32.0 MCHC 35.8 RDW Std Deviation 42.3 RDW Coeff of Last 12.9 Plt Count 169 MPV 9.3 Immature Gran % (Auto) 0.300 Neut % (Auto) 75.6 H Lymph % (Auto) 11.5 L [place] % (Auto) 10.9 H Eos % (Auto) 1.4 Baso % (Auto) 0.3 Absolute Neuts (auto) 7.4 Absolute Lymphs (auto) 1.13 Nucleated RBC % 0 Sodium 139 Potassium 3.4 L Chloride 100 Carbon Dioxide 28.0 Anion Gap 11 BUN 8 Creatinine 0.85 Estim Creat Clear Calc 148.83 Est GFR (MDRD) Af Amer 141 Est GFR (MDRD) Non-Af 116 BUN/Creatinine Ratio 9.4 L Glucose 104 Calcium 9.2 Total Bilirubin 1.00 AST 103 H ALT 74 H Alkaline Phosphatase 93 Total Protein 7.1 Albumin 3.5 Globulin 3.6 Albumin/Globulin Ratio 1.0 POC Glucose 74 Discharge Plan Triage Chief Complaint: Allergic Reaction ED Provider: Ammon Nice Dx/Rx/DC Orders Clinical Impression: Oral thrush, Medication side effect, Diabetes mellitus type 1, Hypokalemia Instructions: Karen Infection: Thrush, ED Drug Reaction, Other, ED Hypokalemia Prescriptions: New nystatin 100,000 unit/mL suspension 4 ml PO Q6H 7 Days Qty: 112 0RF Rx Instructions: swish and swallow No Action ramipril 10 mg capsule 10 mg PO BID Qty: 180 3RF (DME) Omnipod 5 G6 Intro Kit (Gen 5) Cartridge See Rx Instructions .Route Qty: 1 0RF Rx Instructions: As directed (DME) Omnipod 5 G6 Pods (Gen 5) Cartridge See Rx Instructions .Route Qty: 30 1RF Rx Instructions: 1 pod q 72 hours (DME) Dexcom G6 Teleprinter Installer Misc See Rx Instructions .Route Qty: 1 0RF Rx Instructions: As directed (DME) Dexcom G6 Sensor Device See Rx Instructions .Route Qty: 9 1RF Rx Instructions: 1 sensor q 10 days (DME) Dexcom G6 Transmitter Device See Rx Instructions .Route Qty: 1 1RF Rx Instructions: 1 transmitter q 90 days cholecalciferol (vitamin D3) 1,250 mcg (50,000 unit) capsule 1,250 mcg PO QWEEK Qty: 24 0RF insulin aspart U-100 [Novolog U-100 Insulin aspart] 100 unit/mL solution 100 unit continuous subcutaneous infusion .continuous Qty: 90 1RF Insulin Aspart [Novolog] 100 UNIT/ML Ml See Protocol subcut UD Protocol: 6. Sliding Scale Insulin Custom Condition: mg/dl range Dose/Route: Number of Units Protocol Text: Custom Sliding Scale Label Comments: INSULIN PUMP- VARYING HOURLY BASAL RATE Rx Instructions: PT HAS INSULIN PUMP atorvastatin 10 mg Tablet 10 mg PO QHS metoprolol succinate 25 mg Capsule,Sprinkle,Er 24hr 25 mg PO DAILY mirtazapine 30 mg Tablet 30 mg PO DAILY Primary Care Provider: Care Physician,No Primary Referrals: [facility] Doctor,Out of [Non-Staff] - Activity Restrictions/Additional Instructions: Avoid use of mirtazapine, and have your medication changed secondary to its side effects. Perform nystatin oral swish and swallow 4 times a day for the next 7 days and follow-up with your primary care provider. Disposition Disposition: Home, Self Care Discharge Date/Time: 06/01/22 15:04
[2022-06-01] MEDS: DiphenhydrAMINE 50 MG/ML Syringe IV (14:23)
[2022-06-01 14:25] VITALS: BP 161/107; PULSE 80; RESP 16; O2SAT 96
[2022-06-01 14:31] LABS: Bedside Glucose 74 mg/dL (74-106)
[2022-06-01 14:34] LABS: Absolute Lymphocyte Count 1.13 X10^3/uL (0.83-4.51); Absolute Neutrophil Count 7.4 X10^3/uL (2.0-7.7); Basophil# 0.03 X10^3/uL; Basophil% 0.3 % (0-1); Eosinophil# 0.14 X10^3/uL; Eosinophils% 1.4 % (0-5); Hematocrit 43.3 % (40-54); Hemoglobin 15.5 g/dL (13.0-16.5); Lymphocyte # 1.13 X10^3/ul (0.83-4.51); Lymphocyte % 11.5 % (19-41); Mean Corp Hgb Conc 35.8 g/dL (32-36); Mean Corpuscular Volume 89.5 fL (80-94); Mean Platelet Vol. 9.3 fl (6.2-12.0); Monocyte# 1.07 X10^3/uL; Monocyte% 10.9 % (0-10); NRBC Flagged by Analyzer 0 % (0-5); Neutrophil # 7.41 X10^3/uL (2.7-7.7); Neutrophil % 75.6 % (47-70); Platelet Count 169 K/mm3 (150-450); RBC Distribution Width CV 12.9 % (11.6-14.6); RBC Distribution Width SD 42.3 fl (35.1-43.9); Red Blood Count 4.84 M/mm3 (4.6-6.2); White Blood Count 9.8 K/mm3 (4.4-11.0)
[2022-06-01 14:50] LABS: AST(SGOT) 103 U/L (15-37); Alanine Aminotransfer ALT/SGPT 74 U/L (16-61); Albumin, Serum 3.5 g/dL (3.2-5.0); Alkaline Phosphatase 93 U/L (45-117); Anion Gap 11 (5-15); BUN 8 mg/dL (7-18); BUN/Creat Ratio 9.4 RATIO (10-20); Calcium,Total 9.2 mg/dL (8.5-10.1); Chloride 100 mmol/L (98-107); Creatinine, Serum 0.85 mg/dL (0.70-1.30); EST Glomerular Filtration Rate 116 mL/min (>60); Est Glom Filt Rate - Afr Amer 141 mL/min (>60); Estimated Creatinine Clearance 148.83 ml/min; Globulin 3.6 g/dL (2.2-4.2); Glucose 104 mg/dL (74-106); Potassium 3.4 mmol/L (3.5-5.1); Protein, Total 7.1 g/dL (6.4-8.2); Sodium Level 139 mmol/L (136-145)
== END 2022-06-01 15:04 | disposition home or self-care (01) ==
PROVIDERS: Emergency Provider Emergency Medicine; Visit Provider Emergency Medicine
DX: B37.0 Candidal stomatitis (principal); E10.9 Type 1 diabetes mellitus without complications; T43.025A Adverse effect of tetracyclic antidepressants, initial encounter; E87.6 Hypokalemia; Z96.41 Presence of insulin pump (external) (internal); E78.00 Pure hypercholesterolemia, unspecified; I10 Essential (primary) hypertension; Z79.899 Other long term (current) drug therapy
CPT/HCPCS: 80053; 82962; 85025; 96374; 99284; A4216

== ENCOUNTER 2022-06-17 07:48 | Inpatient (IN) | payer OTHER, SELFPAY ==
[2022-06-17] VITALS (10 sets, daily range): BP systolic 110–147; BP diastolic 56–105; PULSE 81–106; RESP 16–18; TEMP 36–36.8; O2SAT 94–100; BMI 26.1; BMI 25.9
--- NOTE | 2022-06-17 08:14 | EX.ED.SAOD ---
HPI History of Present Illness Chief Complaint: Substance Abuse Informant: patient Onset/Context/Timing Onset: - (a year or more) Timing: Intermittent Quality: shaky Location: all over Current Severity: Moderate Maximum Severity: Severe Worsened by: nothing Relieved by: drinking EtOH Associated Symptoms Associated Symptoms: Positive for vomiting* (several days); Negative for diarrhea*, fever*, rash*, seizure, palpatations, change in mental status, sex for drugs*, suicidal ideation, homicidal ideation or *HIV Risk Factors:Consider testing if last test > 6 months Narrative Narrative: Patient has been drinking between 12-24 beers/ 4-Locos per day for a long time he estimates over a year. He has never been through detox before but is seeking it today. He states it is easier to continue drinking but he needs to stop because it is ruining his life, interpersonal relationships, work, financial situation, etc. He is not suicidal. He wants help. He is here with his mother who did not force him to come. He is a type I diabetic, he has had some episodes of low blood sugars because he is not eating especially in the past week, but he is still using his insulin he has a pump. He denies any dyspnea. He has had vomiting for the last several days, but not a lot of it. Some abdominal cramps and feeling shaky when he has not drank, such as now but he denies any abdominal pain right now. Last drink was last night. Denies using any other substances or IV drugs. No confusion or seizure episodes. No known history of cirrhosis or other medical issues other than the diabetes and hypertension. [facility] Medical History Depression Diabetes mellitus type 1 High cholesterol HTN (hypertension) Presence of insulin pump Vitamin D deficiency Home Medications Insulin Aspart [Novolog] See Protocol subcut UD 12/29/14 [History Last Taken 09/25/21] atorvastatin 10 mg tablet 10 mg PO QHS cholesterol lowering 09/25/21 [History Last Taken 09/21/21] metoprolol succinate 25 mg capsule sprinkle, ext. release 24 hr 25 mg PO DAILY 09/25/21 [History Last Taken 09/23/21] Dexcom G6 Nuclear Engineering Technician (blood-glucose meter,continuous) #1 ea 11/14/21 [Rx Last Taken Unknown] Dexcom G6 Sensor (blood-glucose sensor) #9 ea 11/14/21 [Rx Last Taken Unknown] Dexcom G6 Transmitter (blood-glucose transmitter) #1 ea 11/14/21 [Rx Last Taken Unknown] cholecalciferol (vitamin D3) 1,250 mcg (50,000 unit) capsule 1,250 mcg PO QWEEK #24 caps 11/14/21 [Rx Last Taken Unknown] insulin pump cart,automated,BT (Omnipod 5 G6 Pods (Gen 5) subcutaneous cartridge) #30 ea 11/14/21 [Rx Last Taken Unknown] insulin pump cartridge,automated dose,BT with controller subcutaneous (Omnipod 5 G6 Intro Kit (Gen 5) subcutaneous cartridge with controller) #1 ea 11/14/21 [Rx Last Taken Unknown] ramipril 10 mg capsule 10 mg PO BID #180 caps 11/14/21 [Rx Last Taken Unknown] Novolog U-100 Insulin aspart 100 unit/mL subcutaneous solution (insulin aspart U-100) 100 unit continuous subcutaneous infusion .continuous #90 mL 05/29/22 [Rx Last Taken Unknown] mirtazapine 30 mg tablet 30 mg PO DAILY 06/01/22 [History Last Taken Unknown] nystatin 100,000 unit/mL oral suspension 4 ml PO Q6H Oral Karen 7 days #112 mL 06/01/22 [Rx Last Taken Unknown] Allergy/AdvReac Type Severity Reaction Status Date / Time No Known Allergies Allergy Verified 06/17/22 07:49 Family History Mother Hypertension Surgical History No history of previous surgery Social History household members: none Smoking Status: Never smoker alcohol intake: current details: Will drink 2-5 drinks on the weekends. substance use type: does not use ROS ROS ED Constitutional Constitutional ED: Reports malaise and sweats; Denies chills or fever(s) Eyes Eyes: Denies change in vision or diplopia ENT ENT ED: Denies rhinorrhea or sore throat Cardiovascular Cardiovascular: Denies chest pain or palpitations Respiratory/Chest Respiratory/Chest: Denies cough or dyspnea Gastrointestinal Gastrointestinal: Reports abdominal pain, nausea and vomiting; Denies diarrhea Genitourinary Genitourinary ED: Denies dysuria or hematuria Musculoskeletal Musculoskeletal: Denies back pain or neck pain Integumentary Denies abscess or rash Neurologic Neurologic: Denies headache(s), paresthesias or weakness Psychiatric Psychiatric: Denies anxiety or suicidal thoughts EXAM Physical Exam Const Vital Signs: 06/17/22 07:49 06/17/22 08:00 Temperature 96.9 F L 96.8 F L Temperature Source Temporal Temporal Pulse Rate 106 H 88 Respiratory Rate 17 18 Blood Pressure 146/105 H 132/97 H Blood Pressure Mean 118 108 Blood Pressure Source Monitor Blood Pressure Position Semi-Fowlers Blood Pressure Location Right Arm Pulse Ox 99 97 Oxygen Delivery Method Room Air Room Air Positive well nourished and well developed General Appearance ED: well developed and NAD HEENT Reports moist mucous membranes normocephalic and atraumatic Eyes PERRL and EOMs intact bilaterally Neck full ROM and supple Resp normal respiratory effort and clear to auscultation bilaterally Cardio regular rate, regular rhythm and no murmurs Rate: tachycardic GI non-tender and non-distended Auscultation: normoactive bowel sounds Palpation: soft Back/Spine no CVA tenderness General Back: other FROM Extremity normal to inspection General Extremety ED: Negative for edema, pulses abnormal or tenderness General Extremity: Negative for edema or pulses abnormal Neuro oriented x3, CN's II-XII intact bilaterally and no sensory deficits noted Sensorium / Orientation: awake and alert Motor Exam: strength 5/5 throughout Psych Mood & Affect: anxious and tearful Skin no rashes or lesions noted and no wounds MDM MDM MDM Narrative Medical decision making narrative: Is 1I treated patient with IV fluids, Zofran, followed by oral phenobarbital since he appeared to be in some mild alcohol withdrawal. Work-up argues against DKA and AKA, and other than very slight alcohol-related elevations of AST and ALT, his work-up is otherwise unremarkable. He does have an alcohol level of 334, not unexpectedly for an alcoholic. Plan is for admission for detox. Lab Data Attestation: I reviewed the patient's lab results. Labs: Laboratory Results - last 24 hr 06/17/22 06/17/22 06/17/22 08:25 08:43 08:43 WBC 6.1 RBC 4.84 Hgb 15.3 Hct 43.8 MCV 90.5 MCH 31.6 MCHC 34.9 RDW Std Deviation 45.5 H RDW Coeff of Last 13.7 Plt Count 192 MPV 9.4 Immature Gran % (Auto) 0.500 Neut % (Auto) 52.8 Lymph % (Auto) 36.5 [place] % (Auto) 8.2 Eos % (Auto) 1.5 Baso % (Auto) 0.5 Absolute Neuts (auto) 3.2 Absolute Lymphs (auto) 2.22 Nucleated RBC % 0 PT 13.1 INR 1.0 Sodium Potassium Chloride Carbon Dioxide Anion Gap BUN Creatinine Estim Creat Clear Calc Est GFR (MDRD) Af Amer Est GFR (MDRD) Non-Af BUN/Creatinine Ratio Glucose Calcium Total Bilirubin AST ALT Alkaline Phosphatase Total Protein Albumin Globulin Albumin/Globulin Ratio Urine Opiates Screen NEGATIVE Urine Methadone Screen NEGATIVE Ur Barbiturates Screen NEGATIVE Ur Phencyclidine Scrn NEGATIVE Ur Amphetamines Screen NEGATIVE MDMA (Ecstasy) Screen NEGATIVE U Benzodiazepines Scrn NEGATIVE Urine Cocaine Screen NEGATIVE U Cannabinoids Screen NEGATIVE Ur Drug Screen Comment Ethyl Alcohol Acetone Level 06/17/22 06/17/22 06/17/22 08:43 08:43 08:43 WBC RBC Hgb Hct MCV MCH MCHC RDW Std Deviation RDW Coeff of Last Plt Count MPV Immature Gran % (Auto) Neut % (Auto) Lymph % (Auto) [place] % (Auto) Eos % (Auto) Baso % (Auto) Absolute Neuts (auto) Absolute Lymphs (auto) Nucleated RBC % PT INR Sodium 145 Potassium 3.9 Chloride 111 H Carbon Dioxide 26.0 Anion Gap 8 BUN 6 L Creatinine 0.83 Estim Creat Clear Calc 152.42 Est GFR (MDRD) Af Amer 144 Est GFR (MDRD) Non-Af 119 BUN/Creatinine Ratio 7.2 L Glucose 203 H Calcium 8.7 Total Bilirubin 0.30 AST 81 H ALT 74 H Alkaline Phosphatase 93 Total Protein 7.7 Albumin 3.9 Globulin 3.8 Albumin/Globulin Ratio 1.0 Urine Opiates Screen Urine Methadone Screen Ur Barbiturates Screen Ur Phencyclidine Scrn Ur Amphetamines Screen MDMA (Ecstasy) Screen U Benzodiazepines Scrn Urine Cocaine Screen U Cannabinoids Screen Ur Drug Screen Comment Ethyl Alcohol 334.0 H* Acetone Level NEGATIVE Discharge Plan Dx/Rx/DC Orders Clinical Impression: Alcohol dependence, Alcohol withdrawal Disposition Disposition: Acute Care Hospital [facility]
[2022-06-17] MEDS: Ondansetron 4 MG/2 ML Vial IV (08:40)
[2022-06-17] MEDS: Phenobarbital 32.4 MG Tablet 97.2 MG PO (08:40)
[2022-06-17] MEDS: 0.9% Normal Saline 1,000 ML 999 ML IV (08:40)
[2022-06-17 08:52] LABS: Absolute Lymphocyte Count 2.22 X10^3/uL (0.83-4.51); Absolute Neutrophil Count 3.2 X10^3/uL (2.0-7.7); Basophil# 0.03 X10^3/uL; Basophil% 0.5 % (0-1); Eosinophil# 0.09 X10^3/uL; Eosinophils% 1.5 % (0-5); Hematocrit 43.8 % (40-54); Hemoglobin 15.3 g/dL (13.0-16.5); Lymphocyte # 2.22 X10^3/ul (0.83-4.51); Lymphocyte % 36.5 % (19-41); Mean Corp Hgb Conc 34.9 g/dL (32-36); Mean Corpuscular Hgb 31.6 pg (27.0-32.0); Mean Corpuscular Volume 90.5 fL (80-94); Mean Platelet Vol. 9.4 fl (6.2-12.0); Monocyte% 8.2 % (0-10); NRBC Flagged by Analyzer 0 % (0-5); Neutrophil # 3.22 X10^3/uL (2.7-7.7); Neutrophil % 52.8 % (47-70); Platelet Count 192 K/mm3 (150-450); RBC Distribution Width CV 13.7 % (11.6-14.6); RBC Distribution Width SD 45.5 fl (35.1-43.9); Red Blood Count 4.84 M/mm3 (4.6-6.2); White Blood Count 6.1 K/mm3 (4.4-11.0)
[2022-06-17 08:56] LABS: Amphetamine Urine VISTA NEGATIVE (<1000 ng/mL); Barbiturate Urine VISTA NEGATIVE (< 200 ng/mL); Benzodiazepine Urine VISTA NEGATIVE (< 200 ng/mL); Cocaine Urine VISTA NEGATIVE (< 300 ng/mL); Ecstacy Urine VISTA NEGATIVE (< 500 ng/mL); Methadone Urine VISTA NEGATIVE (< 300 ng/mL); PCP Urine VISTA NEGATIVE (< 25 ng/mL); THC Urine VISTA NEGATIVE (< 50 ng/mL); Vista UDS pH Range 5
[2022-06-17 08:58] LABS: Prothrombin Time (Protime)PT. 13.1 SECONDS (11.7-14.9)
[2022-06-17 09:10] LABS: AST(SGOT) 81 U/L (15-37); Alanine Aminotransfer ALT/SGPT 74 U/L (16-61); Albumin, Serum 3.9 g/dL (3.2-5.0); Alkaline Phosphatase 93 U/L (45-117); Anion Gap 8 (5-15); BUN 6 mg/dL (7-18); BUN/Creat Ratio 7.2 RATIO (10-20); Calcium,Total 8.7 mg/dL (8.5-10.1); Chloride 111 mmol/L (98-107); Creatinine, Serum 0.83 mg/dL (0.70-1.30); EST Glomerular Filtration Rate 119 mL/min (>60); Est Glom Filt Rate - Afr Amer 144 mL/min (>60); Estimated Creatinine Clearance 152.42 ml/min; Globulin 3.8 g/dL (2.2-4.2); Glucose 203 mg/dL (74-106); Potassium 3.9 mmol/L (3.5-5.1); Protein, Total 7.7 g/dL (6.4-8.2); Sodium Level 145 mmol/L (136-145)
--- NOTE | 2022-06-17 09:51 | HP.PCM.HOS_ITS ---
HPI - General General Date of Admission: 06/17/22 Date of Service: 06/17/22 Chief Complaint: EtOH Detox HPI Narrative JORGE HOLLIS, is a 27 M who presented to emergency department [facility] on 06/17/2021 requesting alcohol detox. Patient reports that he has been drinking anywhere from 12-24 beers and 4 Caroline's per day for a long time. The estimated at the time of my evaluation has been doing so for approximately 6 years. He has never been through detox previously. Patient indicated that he needs to stop drinking because it is ruining his life, interpersonal relationships, work and financial situation. He is a type I diabetic and has an insulin pump and follows with Dr. Ontiveros as an outpatient. He reported that he is having some nausea/ vomiting along with some abdominal cramping and feeling shaky. His last drink was approximately 11-12 o'clock last evening. He denies any other substance abuse or tobacco abuse. Vital signs at the time of presentation demonstrated a temperature of 96.9, heart rate 106, blood pressure 146/105, respiratory rate 17, oxygen saturations are 99% room air. CBC is unremarkable. Coags are normal. Chemistry panel is overall unremarkable other than mildly elevated blood glucose at 203. Hemoglobin A1c was obtained and found to be 8.2. Liver enzymes are elevated and alcohol type pattern with an AST of 81 and ALT of 74. Urine tox screen is negative. Ethyl alcohol level is 334.0. The emergency department he was treated with IV fluids and given initial dose of phenobarbital for alcohol withdrawal. [facility] Medical History Alcohol abuse Anxiety Depression Diabetes mellitus type 1 High cholesterol HTN (hypertension) Presence of insulin pump Vitamin D deficiency Home Medications Insulin Aspart [Novolog] See Protocol subcut UD dm 12/29/14 [History Last Taken 09/25/21] atorvastatin 10 mg tablet 10 mg PO QHS cholesterol lowering 09/25/21 [History Last Taken 09/21/21] metoprolol succinate 25 mg capsule sprinkle, ext. release 24 hr 25 mg PO DAILY blood pressure 09/25/21 [History Last Taken 09/23/21] Dexcom G6 [employer] (blood-glucose meter,continuous) #1 ea 11/14/21 [Rx Last Taken Unknown] Dexcom G6 Sensor (blood-glucose sensor) #9 ea 11/14/21 [Rx Last Taken Unknown] Dexcom G6 Transmitter (blood-glucose transmitter) #1 ea 11/14/21 [Rx Last Taken Unknown] cholecalciferol (vitamin D3) 1,250 mcg (50,000 unit) capsule 1,250 mcg PO QWEEK #24 caps 11/14/21 [Rx Last Taken Unknown] insulin pump cart,automated,BT (Omnipod 5 G6 Pods (Gen 5) subcutaneous cartridge) #30 ea 11/14/21 [Rx Last Taken Unknown] insulin pump cartridge,automated dose,BT with controller subcutaneous (Omnipod 5 G6 Intro Kit (Gen 5) subcutaneous cartridge with controller) #1 ea 11/14/21 [Rx Last Taken Unknown] Novolog U-100 Insulin aspart 100 unit/mL subcutaneous solution (insulin aspart U-100) 100 unit continuous subcutaneous infusion .continuous #90 mL 05/29/22 [Rx Last Taken Unknown] bupropion HCl 100 mg tablet 100 mg PO BID depression 06/17/22 [History Last Taken Unknown] lorazepam 1 mg tablet 1 mg PO QHS anxiety 06/17/22 [History Last Taken Unknown] ramipril 10 mg capsule 10 mg PO BID blood pressures 06/17/22 [History Last Taken Unknown] Allergy/AdvReac Type Severity Reaction Status Date / Time No Known Allergies Allergy Verified 06/17/22 07:49 Family History Mother Hypertension Surgical History No history of previous surgery Social History (Updated 06/17/22 @ 13:[address] Osiris Murphy DO) household members: none housing: apartment Smoking Status: Never smoker alcohol intake: current alcohol intake frequency: 3 or more drinks per day Alcohol type: beer and hard liquor substance use type: does not use ROS Constitutional Constitutional: Denies anorexia, change in weight, chills, fatigue, fever(s), malaise, night sweats, weakness or other Eyes Eyes: Denies blurry vision, change in eye color, change in vision, discharge from eye(s), double vision, erythema, eye pain, loss of vision or other ENT HEENT: Denies abnormal hearing, dysphagia, ear pain, epistaxis, headache(s), hearing loss, nasal congestion, nasal discharge, post nasal drip, sinus pressure, sore throat or other Cardiovascular Cardiovascular: Denies chest pain, claudication, dyspnea on exertion, edema, lightheadedness, orthopnea, palpitations, paroxysmal nocturnal dyspnea, rapid heart rate, syncope or other Respiratory/Chest Respiratory/Chest: Denies cough, dyspnea, excessive phlegm production, hemoptysis, productive cough, shortness of breath at rest, shortness of breath with exertion, wheezing or other Gastrointestinal Gastrointestinal: Reports abdominal pain, nausea and vomiting; Denies coffee ground emesis, constipation, diarrhea, dyspepsia, hematemesis, hematochezia, loose stools, melena or other Genitourinary Genitourinary: Denies burning urination, difficulty urinating, dysuria, hematuria, nocturia, urinary frequency, urinary hesitancy, urinary incontinence, urinary urgency or other Musculoskeletal Musculoskeletal: Denies arthralgias, back pain, joint pain, joint stiffness, joint swelling, myalgias, neck pain or other Neurologic Neurologic: Reports tremor(s); Denies abnormal gait, abnormal speech, confusion, disequilibrium, dizziness, focal weakness, headache(s), numbness, paresthesias, seizure-like activity, seizures, syncope, tingling or other Psychiatric Psychiatric: Reports anxiety and depression; Denies homicidal ideation, suicidal ideation or other Endocrine Endocrinology: Denies change in body appearance, cold intolerance, excessive sweating, heat intolerance, polydipsia, polyuria or other Hematologic/Lymphatic Hematologic/Lymphatic: Denies anemia, easy bleeding, easy bruising, lymphadenopathy or other Allergic/Immunologic Allergic/Immunologic: Denies rhinitis, hives, eczemia, asthma or other Vital Signs Vital Signs Vital Signs: 06/17/22 07:49 06/17/22 08:00 Temperature 96.9 F L 96.8 F L Temperature Source Temporal Temporal Pulse Rate 106 H 88 Respiratory Rate 17 18 Blood Pressure 146/105 H 132/97 H Blood Pressure Mean 118 108 Blood Pressure Source Monitor Blood Pressure Position Semi-Fowlers Blood Pressure Location Right Arm Pulse Ox 99 97 Oxygen Delivery Method Room Air Room Air Weight Weight: 89.766 kg Body Mass Index (BMI) 26.1 Physical Exam Const alert, oriented x3, no apparent distress, healthy appearing and well nourished Constitutional Narrative: Young overweight white male sitting up in bed, mother at bedside, appears comfortable, nontoxic General Appearance: cooperative HEENT normocephalic, head/scalp atraumatic, hearing grossly normal bilaterally and moist oral mucous membranes HEENT Narrative: Mild 2, no thrush, dentition is good Eyes PERRL, EOMs intact bilaterally and conjunctivae normal Eyes Narrative: No scleral icterus Neck no lymphadenopathy and supple Neck Narrative: Trachea midline, no thyroid enlargement Resp normal respiratory effort, no retractions, no use of accessory muscles and clear to auscultation bilaterally Auscultation: Negative for crackles, rhonchi or wheezes Cardio regular rate, regular rhythm, S1 normal heart sound, S2 normal heart sound, no murmurs, no rub, no gallops and no clicks GI normal to inspection, nondistended, normoactive bowel sounds, soft to palpation and non-tender Extremity no clubbing, cyanosis or edema Extremity Narrative: 2+ pedal pulses Skin no rashes or lesions noted, no wounds, skin turgor normal, no jaundice, no miladys chiae and no mottling Neuro oriented x3, CN's II-XII intact bilaterally, moves all extremities and no focal motor deficits Neuro Narrative: Mild fine tremor noted Speech: speech normal Motor Exam: strength 5/5 throughout Psych affect normal Mood & Affect: anxious Results Lab / Micro Data Attestation: I reviewed the patient's lab results. Result Diagrams: 06/17/22 08:43 06/17/22 08:43 Labs: Laboratory Results - last 24 hr 06/17/22 08:25: Urine Opiates Screen NEGATIVE, Urine Methadone Screen NEGATIVE, Ur Barbiturates Screen NEGATIVE, Ur Phencyclidine Scrn NEGATIVE, Ur Amphetamines Screen NEGATIVE, MDMA (Ecstasy) Screen NEGATIVE, U Benzodiazepines Scrn NEGATIVE, Urine Cocaine Screen NEGATIVE, U Cannabinoids Screen NEGATIVE, Ur Drug Screen Comment 06/17/22 08:43: WBC 6.1, RBC 4.84, Hgb 15.3, Hct 43.8, MCV 90.5, MCH 31.6, MCHC 34.9, RDW Std Deviation 45.5 H, RDW Coeff of Last 13.7, Plt Count 192, MPV 9.4, Immature Gran % (Auto) 0.500, Neut % (Auto) 52.8, Lymph % (Auto) 36.5, [place] % (Auto) 8.2, Eos % (Auto) 1.5, Baso % (Auto) 0.5, Absolute Neuts (auto) 3.2, Abs olute Lymphs (auto) 2.22, Nucleated RBC % 0 06/17/22 08:43: PT 13.1, INR 1.0 06/17/22 08:43: Acetone Level NEGATIVE 06/17/22 08:43: Sodium 145, Potassium 3.9, Chloride 111 H, Carbon Dioxide 26.0, Anion Gap 8, BUN 6 L, Creatinine 0.83, Estim Creat Clear Calc 152.42, Est GFR (MDRD) Af Amer 144, Est GFR (MDRD) Non-Af 119, BUN/Creatinine Ratio 7.2 L, G lucose 203 H, Calcium 8.7, Total Bilirubin 0.30, AST 81 H, ALT 74 H, Alkaline Phosphatase 93, Total Protein 7.7, Albumin 3.9, Globulin 3.8, Albumin/Globulin Ratio 1.0 06/17/22 08:43: Ethyl Alcohol 334.0 H* Assessment & Plan Assessment/Plan (1) Dehydration: (2) Alcohol dependence: (3) Alcohol withdrawal: (4) Alcoholic hepatitis: PLAN: Plan Acute alcohol withdrawal -Alcohol level on admission was 334.0 and patient was having some withdrawal symptoms -Patient drinks anywhere from 12-24 beers daily along with 4 Caroline's -Never been through detox previously -Start phenobarbital taper -IV thiamine 200 mg x 3 days -Folic acid supplementation -As needed medication for withdrawal symptoms -180 consultation Mild alcoholic hepatitis -AST 81/ALT 74 -Should improve with cessation Mild dehydration -No significant lab abnormalities related this however patient appears dry clinically -Was given 1 L IV fluids emergency department -Give 1 more liter now and assure patient is eating without any difficulty prior to discontinuing DM-1 -Continue insulin pump as long as patient is cognitively able to manage -If patient becomes confused or is unable to manage his insulin pump will need to transition to Lantus -Insulin basal rate is approximately 1.3 to 1.4 units an hour -Dose 20 units SQ daily as well as a sliding scale if patient is able to manage his insulin -Carb controlled diet -A1c is 8.2 -Recommend outpatient follow-up with Dr. Ontiveros after discharge Hypertension -Continue home while in the-continue home ramipril Hyperlipidemia -Continue home atorvastatin Anxiety/depression -Continue home medication Overweight -recommend weight loss DVT prophylaxis -Low risk -Encourage early ambulation CODE STATUS -Full code Charges/Coding Visit Charges Inpatient E&M: 65125 Init Hosp L3
--- NOTE | 2022-06-17 09:54 | NURSING ---
MED SURG KOKI ETOH DEPENDENCE/W/D
[2022-06-17 11:41] LABS: Hemoglobin A1c 8.2 % (3.8-5.6)
[2022-06-17] MEDS: Phenobarbital 32.4 MG Tablet 64.8 MG PO ×3 (13:40→20:38)
[2022-06-17] MEDS: Lactated Ringers 1,000 ML 75 ML IV (13:40)
[2022-06-17] MEDS: 0.9% Saline Lock 10 ML Syringe IV (13:41)
[2022-06-17] MEDS: NYSTATIN 500,000 UNIT/5 ML UDC 500000 UNIT PO (16:46)
[2022-06-17] MEDS: hydrOXYzine PAM 25 MG Capsule 50 MG PO (18:56)
[2022-06-17] MEDS: traZODone 100 MG Tablet PO (20:39)
[2022-06-17] MEDS: Gabapentin 300 MG Capsule PO (20:39)
[2022-06-17] MEDS: Ramipril 10 MG Capsule PO (20:39)
[2022-06-17] MEDS: Atorvastatin Calcium 10 MG Tablet PO (20:39)
--- NOTE | 2022-06-17 22:00 | NURSING ---
pt has personal blood glucose monitor at bedside. BG 129
[2022-06-18] VITALS (8 sets, daily range): BP systolic 125–147; BP diastolic 75–96; PULSE 65–78; RESP 16–18; TEMP 36.5–37; O2SAT 96–98
[2022-06-18] MEDS: Phenobarbital 32.4 MG Tablet 64.8 MG PO ×6 (00:33→21:13)
[2022-06-18] MEDS: NYSTATIN 500,000 UNIT/5 ML UDC 500000 UNIT PO ×3 (00:33→17:36)
--- NOTE | 2022-06-18 01:30 | NURSING ---
pt has personal blood glucose monitor at bedside. BG 122
--- NOTE | 2022-06-18 07:37 | NURSING ---
BG on pts controlled insulin pump 37, gave intervention and recheck was 50, 197 after second intervention
[2022-06-18 07:41] LABS: Anion Gap 7 (5-15); BUN 8 mg/dL (7-18); BUN/Creat Ratio 11.9 RATIO (10-20); Calcium,Total 8.1 mg/dL (8.5-10.1); Chloride 107 mmol/L (98-107); Creatinine, Serum 0.67 mg/dL (0.70-1.30); EST Glomerular Filtration Rate 152 mL/min (>60); Est Glom Filt Rate - Afr Amer 184 mL/min (>60); Estimated Creatinine Clearance 188.82 ml/min; Glucose 52 mg/dL (74-106); Potassium 3.4 mmol/L (3.5-5.1); Sodium Level 142 mmol/L (136-145)
[2022-06-18] MEDS: Ramipril 10 MG Capsule PO ×2 (08:59→21:13)
[2022-06-18] MEDS: Metoprolol(XL)Succ 25 MG Tablet PO (08:59)
[2022-06-18] MEDS: Folic Acid 1 MG Tablet PO (08:59)
[2022-06-18] MEDS: hydrOXYzine PAM 25 MG Capsule 50 MG PO (09:00)
[2022-06-18] MEDS: Ondansetron 8 MG Tablet PO (09:00)
[2022-06-18] MEDS: 0.9% Saline Lock 10 ML Syringe IV (09:01)
--- NOTE | 2022-06-18 10:50 | ADDICTION ---
This fiction and nonfiction writer prose met with PT to conduct ASAM, MSE, AUDIT assessments and to plan for d/c. PT A+Ox4 and participated actively. All assessments completed and placed in PT's chart. PT plans to f/u with [facility] for outpatient treatment services. PT did not indicate a need for transportation post d/c from [facility].
--- NOTE | 2022-06-18 14:55 | PN.HOSP_ITS ---
Subjective Subjective Patient states overall he is feeling okay. A little bit of nausea and anxiety but overall better than yesterday. No significant tremulousness. Did have some hypoglycemia overnight and we have reviewed his basal rates and made some adjustments. Objective Data Objective Data Vital Signs: Vital Signs Temp Pulse Resp BP Pulse Ox O2 Del Method 97.7 F L 65 16 133/80 H 97 Room Air 06/18/22 11:55 06/18/22 11:55 06/18/22 11:55 06/18/22 11:55 06/18/22 11:55 06/18/22 11:55 Oxygen Delivery Method Room Air Weight: 89.3 kg Body Mass Index (BMI) 25.9 Intake & Output: Intake and Output for Last 24 Hours 06/16/22 06/17/22 06/18/22 23:59 23:59 23:59 Intake Total 1752 / 2552 2151 Balance 175 / [id number] Lab / Micro Data Result Diagrams: 06/17/22 08:43 06/18/22 06:20 Labs: Laboratory Results - last 24 hr 06/18/22 06:20: Sodium 142, Potassium 3.4 L, Chloride 107, Carbon Dioxide 28.0, Anion Gap 7, BUN 8, Creatinine 0.67 L, Estim Creat Clear Calc 188.82, Est GFR (MDRD) Af Amer 184, Est GFR (MDRD) Non-Af 152, BUN/Creatinine Ratio 11.9, Glucose 52 L, Calcium 8.1 L Physical Exam Const alert, oriented x3, no apparent distress, healthy appearing and well nourished Constitutional Narrative: Young overweight white male lying in bed, appears comfortable, nontoxic General Appearance: cooperative HEENT normocephalic, head/scalp atraumatic, hearing grossly normal bilaterally and moist oral mucous membranes Resp normal respiratory effort, no retractions, no use of accessory muscles and clear to auscultation bilaterally Auscultation: Negative for crackles, rhonchi or wheezes Cardio regular rate, regular rhythm, S1 normal heart sound, S2 normal heart sound, no murmurs, no rub, no gallops and no clicks GI normal to inspection, nondistended, normoactive bowel sounds, soft to palpation and non-tender Extremity no clubbing, cyanosis or edema Extremity Narrative: 2+ pedal pulses Neuro oriented x3, moves all extremities and no focal motor deficits Neuro Narrative: Mild fine tremor noted Speech: speech normal Psych affect normal Mood & Affect: anxious Assessment & Plan Assessment/Plan (1) Dehydration: (2) Alcohol dependence: (3) Alcohol withdrawal: (4) Alcoholic hepatitis: PLAN: Plan Acute alcohol withdrawal -Alcohol level on admission was 334.0 and patient was having some withdrawal symptoms -Patient drinks anywhere from 12-24 beers daily along with 4 [place]'s -Never been through detox previously -Continue phenobarbital taper -IV thiamine 200 mg x 3 days--> day 2 of 3 -Folic acid supplementation -As needed medication for withdrawal symptoms -180evalulated-->f/u with [facility] for outpatient treatment services Mild alcoholic hepatitis -AST 81/ALT 74 -Repeat hepatic studies tomorrow -Should improve with cessation Mild dehydration -Resolved DM-1 -Continue insulin pump as long as patient is cognitively able to manage -If patient becomes confused or is unable to manage his insulin pump will need to transition to Lantus -Insulin basal rate is approximately 1.3 to 1.4 units an hour -Dose 20 units SQ daily as well as a sliding scale if patient is able to manage his insulin -Patient with some hypoglycemia overnight so we did make some adjustments in his insulin pump with his rates being decreased to 1.1 from 8:30 PM through tomorrow morning and will reevaluate again tomorrow. -I suspect his hypoglycemia is related to his alcohol cessation along with decreased gluconeogenesis from his liver from alcoholic hepatitis -Carb controlled diet -A1c is 8.2 -Recommend outpatient follow-up with Dr. Ontiveros after discharge -If further issues with blood sugar control will call Dr. Ontiveros tomorrow for assistance in managing his blood sugars Hypokalemia -40 M EQ's p.o. potassium -Recheck in a.m. -Check a.m. magnesium level Hypertension -Continue home metoprolol and ramipril Hyperlipidemia -Continue home atorvastatin Anxiety/depression -Continue home medication Overweight -recommend weight loss DVT prophylaxis -Low risk -Encourage early ambulation CODE STATUS -Full code Charges/Coding Visit Charges Inpatient E&M: 77154 Subs Hosp L2
[2022-06-18] MEDS: Potassium Chloride Oral Tablet 20 MEQ 40 MEQ PO (16:02)
[2022-06-18] MEDS: Gabapentin 300 MG Capsule PO (16:05)
--- NOTE | 2022-06-18 17:56 | NURSING ---
PT BLOOD SUGAR AT DINNER WAS 36 AND OJ GIVEN AND BACK TO 135 AT 1750
--- NOTE | 2022-06-18 18:31 | NURSING ---
Insulin pump changed to 1.0 unit/hr per patient at this time.
[2022-06-18 20:12] LABS: Magnesium 1.3 mg/dL (1.6-2.6); Phosphorus 3.9 mg/dL (2.5-4.9)
--- NOTE | 2022-06-18 21:00 | NURSING ---
blood glucose 212
[2022-06-18] MEDS: Atorvastatin Calcium 10 MG Tablet PO (21:13)
[2022-06-18] MEDS: traZODone 100 MG Tablet PO (21:13)
[2022-06-19] MEDS: NYSTATIN 500,000 UNIT/5 ML UDC 500000 UNIT PO (00:56)
[2022-06-19] MEDS: Phenobarbital 32.4 MG Tablet 64.8 MG PO ×6 (00:56→21:08)
[2022-06-19 02:18] VITALS: BP 121/70; PULSE 61; RESP 16; TEMP 36.8; O2SAT 97
[2022-06-19 07:23] LABS: AST(SGOT) 27 U/L (15-37); Alanine Aminotransfer ALT/SGPT 42 U/L (16-61); Albumin, Serum 3.1 g/dL (3.2-5.0); Alkaline Phosphatase 73 U/L (45-117); Anion Gap 6 (5-15); BUN 6 mg/dL (7-18); BUN/Creat Ratio 8.3 RATIO (10-20); Calcium,Total 8.8 mg/dL (8.5-10.1); Chloride 106 mmol/L (98-107); Creatinine, Serum 0.72 mg/dL (0.70-1.30); EST Glomerular Filtration Rate 140 mL/min (>60); Est Glom Filt Rate - Afr Amer 169 mL/min (>60); Estimated Creatinine Clearance 175.71 ml/min; Globulin 3.1 g/dL (2.2-4.2); Glucose 116 mg/dL (74-106); Phosphorus 3.8 mg/dL (2.5-4.9); Potassium 3.8 mmol/L (3.5-5.1); Protein, Total 6.2 g/dL (6.4-8.2); Sodium Level 140 mmol/L (136-145)
[2022-06-19 09:28] VITALS: BP 114/81; PULSE 66; RESP 18; TEMP 36.5; O2SAT 97
[2022-06-19 09:33] VITALS: PULSE 66
[2022-06-19] MEDS: Metoprolol(XL)Succ 25 MG Tablet PO (09:33)
[2022-06-19] MEDS: Ramipril 10 MG Capsule PO ×2 (09:33→21:09)
[2022-06-19] MEDS: Folic Acid 1 MG Tablet PO (09:33)
[2022-06-19] MEDS: 0.9% Saline Lock 10 ML Syringe IV (09:39)
--- NOTE | 2022-06-19 11:30 | NURSING ---
Pt blood sugar was 123 at 10:48
--- NOTE | 2022-06-19 14:24 | PN.HOSP_ITS ---
Subjective Subjective Patient states he still feels a little bit anxious. No nausea or vomiting. No diarrhea. No abdominal pain. No significant tremor at this time. Overall feeling better. Blood sugars were better overnight Objective Data Objective Data Vital Signs: Vital Signs Temp Pulse Resp BP Pulse Ox O2 Del Method 97.7 F L 66 18 114/81 H 97 Room Air 06/19/22 09:28 06/19/22 09:33 06/19/22 09:28 06/19/22 09:28 06/19/22 09:28 06/19/22 09:48 Oxygen Delivery Method Room Air Weight: 89.3 kg Body Mass Index (BMI) 25.9 Intake & Output: Intake and Output for Last 24 Hours 06/17/22 06/18/22 06/19/22 23:59 23:59 23:59 Intake Total 1752 / 2552 3052 / 3852 1552 / 1552 Balance 1752 / 2552 3052 / 3852 1552 / 1552 Lab / Micro Data Result Diagrams: 06/17/22 08:43 06/19/22 05:50 Labs: Laboratory Results - last 24 hr 06/18/22 06:20: Phosphorus 3.9, Magnesium 1.3 L 06/19/22 05:50: Sodium 140, Potassium 3.8, Chloride 106, Carbon Dioxide 28.0, Anion Gap 6, BUN 6 L, Creatinine 0.72, Estim Creat Clear Calc 175.71, Est GFR (MDRD) Af Amer 169, Est GFR (MDRD) Non-Af 140, BUN/Creatinine Ratio 8.3 L, Glucose 116 H, Calcium 8.8, Phosphorus 3.8, Magnesium 2.0, Total Bilirubin 0.50, AST 27, ALT 42, Alkaline Phosphatase 73, Total Protein 6.2 L, Albumin 3.1 L, Globulin 3.1, Albumin/Globulin Ratio 1.0 Physical Exam Const alert, oriented x3, no apparent distress, healthy appearing and well nourished Constitutional Narrative: Young overweight white male lying in bed, appears comfortable, nontoxic General Appearance: cooperative HEENT normocephalic, head/scalp atraumatic, hearing grossly normal bilaterally and m oist oral mucous membranes Resp normal respiratory effort, no retractions, no use of accessory muscles and clear to auscultation bilaterally Auscultation: Negative for crackles, rhonchi or wheezes Cardio regular rate, regular rhythm, S1 normal heart sound, S2 normal heart sound, no murmurs, no rub, no gallops and no clicks GI normal to inspection, nondistended, normoactive bowel sounds, soft to palpation and non-tender Extremity no clubbing, cyanosis or edema Extremity Narrative: 2+ pedal pulses Neuro oriented x3, moves all extremities and no focal motor deficits Neuro Narrative: Mild fine tremor noted Speech: speech normal Psych affect normal Psych Narrative: Seems calm, very pleasant Assessment & Plan Assessment/Plan (1) Dehydration: (2) Alcohol dependence: (3) Alcohol withdrawal: (4) Alcoholic hepatitis: PLAN: Plan Acute alcohol withdrawal -Alcohol level on admission was 334.0 and patient was having some withdrawal symptoms -Patient drinks anywhere from 12-24 beers daily along with 4 Rand's -Never been through detox previously -Continue phenobarbital taper -IV thiamine 200 mg x 3 days--> day 3 of 3 -Folic acid supplementation -As needed medication for withdrawal symptoms -180 evalulated-->f/u with [facility] for outpatient treatment services -Possible discharge tomorrow depending on withdrawal symptoms Mild alcoholic hepatitis -Resolved DM-1 -Continue insulin pump as long as patient is cognitively able to manage -If patient becomes confused or is unable to manage his insulin pump will need to transition to Lantus -Insulin basal rate is approximately 1.3 to 1.4 units an hour -Dose 20 units SQ daily as well as a sliding scale if patient is able to manage his insulin -Patient's current pump rate is 1.1 [id number] as he had some further issues with hypoglycemia intermittently throughout the day yesterday -Will talk to his hydro generation supervisor prior to discharge to see if we get some recommendations for him or early follow-up -I suspect his hypoglycemia is related to his alcohol cessation along with decreased gluconeogenesis from his liver from alcoholic hepatitis -Carb controlled diet -A1c is 8.2 -Recommend outpatient follow-up with Dr. Ontiveros after discharge -If further issues with blood sugar control will call Dr. Ontiveros tomorrow for assistance in managing his blood sugars Hypokalemia - resolved Hypertension -Continue home metoprolol and ramipril Hyperlipidemia -Continue home atorvastatin Anxiety/depression -Continue home medication Overweight -recommend weight loss DVT prophylaxis -Low risk -Encourage early ambulation CODE STATUS -Full code Charges/Coding Visit Charges Inpatient E&M: 49612 Subs Hosp L2
[2022-06-19 16:00] VITALS: BP 119/76; PULSE 57; RESP 18; TEMP 36.9; O2SAT 97
--- NOTE | 2022-06-19 16:17 | NURSING ---
blood sugar reading was 88 at 16:15
--- NOTE | 2022-06-19 19:45 | NURSING ---
pt checked his glucose it is 233, insulin pump intact
[2022-06-19] MEDS: Atorvastatin Calcium 10 MG Tablet PO (21:08)
[2022-06-19] MEDS: traZODone 100 MG Tablet PO (21:08)
[2022-06-19 21:16] VITALS: BP 122/74; PULSE 66; RESP 16; TEMP 37.2; O2SAT 97
[2022-06-20 02:49] VITALS: BP 120/81; PULSE 88; RESP 14; TEMP 36.8; O2SAT 99
[2022-06-20] MEDS: Phenobarbital 32.4 MG Tablet 64.8 MG PO ×2 (02:55→09:08)
--- NOTE | 2022-06-20 02:58 | NURSING ---
blood sugar at 1:06 am : 177
[2022-06-20 07:25] LABS: Anion Gap 7 (5-15); BUN 8 mg/dL (7-18); BUN/Creat Ratio 9.3 RATIO (10-20); Calcium,Total 9.1 mg/dL (8.5-10.1); Chloride 101 mmol/L (98-107); Creatinine, Serum 0.86 mg/dL (0.70-1.30); EST Glomerular Filtration Rate 114 mL/min (>60); Est Glom Filt Rate - Afr Amer 138 mL/min (>60); Glucose 94 mg/dL (74-106); Potassium 4.2 mmol/L (3.5-5.1); Sodium Level 137 mmol/L (136-145)
[2022-06-20 08:31] VITALS: O2SAT 97
--- NOTE | 2022-06-20 09:02 | NURSING ---
136 was pt blood sugar from his monitor
[2022-06-20 09:04] VITALS: BP 130/90; PULSE 74; RESP 18; TEMP 36.7; O2SAT 100
[2022-06-20 09:08] VITALS: PULSE 74
[2022-06-20] MEDS: Folic Acid 1 MG Tablet PO (09:08)
[2022-06-20] MEDS: Metoprolol(XL)Succ 25 MG Tablet PO (09:08)
[2022-06-20] MEDS: Ramipril 10 MG Capsule PO (09:08)
[2022-06-20] MEDS: 0.9% Saline Lock 10 ML Syringe IV (10:08)
--- NOTE | 2022-06-20 11:41 | NURSING ---
Pt blood sugar is 83 at 11:40am
--- NOTE | 2022-06-20 13:06 | DS.PCM_ITS ---
Providers Date of Admission: 06/17/22 Date of Discharge: 06/20/22 Primary Care Physician: No Primary Care Phys Reason For Visit: ETOH DETOX Diagnosis Discharge Diagnosis (1) Dehydration: Status: Acute Code(s): E86.0 - Dehydration (2) Alcohol dependence: Status: Acute Code(s): F10.20 - Alcohol dependence, uncomplicated (3) Alcohol withdrawal: Status: Acute Code(s): F10.939 - Alcohol use, unspecified with withdrawal, unspecified (4) Alcoholic hepatitis: Status: Acute Code(s): K70.10 - Alcoholic hepatitis without ascites Medications at Discharge Home Medications Insulin Aspart [Novolog] See Protocol subcut UD dm 12/29/14 atorvastatin 10 mg tablet 10 mg PO QHS cholesterol lowering 09/25/21 metoprolol succinate 25 mg capsule sprinkle, ext. release 24 hr 25 mg PO DAILY blood pressure 09/25/21 Dexcom G6 Certified Master Locksmith (blood-glucose meter,continuous) #1 ea 11/14/21 Dexcom G6 Sensor (blood-glucose sensor) #9 ea 11/14/21 Dexcom G6 Transmitter (blood-glucose transmitter) #1 ea 11/14/21 cholecalciferol (vitamin D3) 1,250 mcg (50,000 unit) capsule 1,250 mcg PO QWEEK #24 caps 11/14/21 insulin pump cart,automated,BT (Omnipod 5 G6 Pods (Gen 5) subcutaneous cartridge) #30 ea 11/14/21 insulin pump cartridge,automated dose,BT with controller subcutaneous (Omnipod 5 G6 Intro Kit (Gen 5) subcutaneous cartridge with controller) #1 ea 11/14/21 Novolog U-100 Insulin aspart 100 unit/mL subcutaneous solution (insulin aspart U-100) 100 unit continuous subcutaneous infusion .continuous #90 mL 05/29/22 bupropion HCl 100 mg tablet 100 mg PO BID depression 06/17/22 lorazepam 1 mg tablet 1 mg PO QHS anxiety 06/17/22 ramipril 10 mg capsule 10 mg PO BID blood pressures 06/17/22 Hospital Course Operations None Procedures None Summary of Care Provided Minutes Spent on Discharge: 36 Hospital Course: Mr. Moncada is a 27-year-old white male who presented to the emergency department at [facility] on 06/17/2019 2 in the morning for alcohol withdrawal. Patient reported that he is drinking for a long time. It sounds like its been 6 to 7 years. He indicated he drank anywhere from 12-24 beers daily as well as 4 Nephi's. He had never been through formal detox previously and felt that he needed to stop drinking because it is ruining his life, interpersonal relationships, work and financial situation. He is a type I diabetic with an insulin pump and follows with Dr. Ontiveros as an outpatient. At presentation he was complaining of some nausea and vomiting along with some abdominal cramping and was feeling shaky. His last drink was approximately 11- 12 on the night prior to presentation. He denied any other substance abuse or tobacco abuse. Vital signs at the time of presentation demonstrated a temperature of 96.9, heart rate 106, blood pressure 146/105, respiratory rate 17, oxygen saturations are 99% room air.? CBC is unremarkable.? Coags are normal.? Chemistry panel is overall unremarkable other than mildly elevated blood glucose at 203.? Hemoglobin A1c was obtained and found to be 8.2.? Liver enzymes are elevated and alcohol type pattern with an AST of 81 and ALT of 74.? Urine tox screen is negative.? Ethyl alcohol level is 334.0. He was admitted to the medical floor and started on a phenobarbital taper with the CIWA protocol and as needed Ativan as well as other as needed medications for symptom control. He was on 200 mg of IV thiamine and folate supplementation during his hospital course. He did quite well overall. 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 His liver function improved. With regards to his hypoglycemia the basal rate on his pump had typically been 1.3-1.4. We did adjust his basal rate down to 1.1 continuously and his blood sugars were improved with this. He was monitored closely for DKA throughout his hospitalization. I did have conversation with his computer terminal operator prior to discharge and she suggested we continue on his basal rate at 1.1 and have him keep track of his sugars and call them on Friday morning and let them know what his sugars had been running since discharge. He was evaluated by 180 with the plan to follow-up at [facility] at the time of discharge. He indicated he has a upcoming appointment with Dr. Ontiveros and I recommended he keep this. He was discharged home in stable condition on 06/20/2022. Discharge diagnoses: Acute alcohol withdrawal Mild alcoholic hepatitis DM-1 Hypokalemia-resolved Hypertension Hyperlipidemia Anxiety Depression Overweight Physical Exam Const alert, oriented x3, no apparent distress, healthy appearing and well nourished Constitutional Narrative: Young overweight white male lying in bed, appears comfortable, nontoxic General Appearance: cooperative, comfortable, well kempt and well developed Orientation / Consciousness: awake, oriented to person, oriented to place and oriented to time Exam Limitations: no limitations Nutritional Appearance: overweight HEENT normocephalic, head/scalp atraumatic, hearing grossly normal bilaterally and moist oral mucous membranes HEENT Narrative: Mallampati 3, no thrush Eyes PERRL, EOMs intact bilaterally and conjunctivae normal Eyes Narrative: No scleral icterus Neck no lymphadenopathy and supple Neck Narrative: Trachea midline, no thyroid enlargement Resp normal respiratory effort, no retractions, no use of accessory muscles and clear to auscultation bilaterally Auscultation: Negative for crackles, rhonchi or wheezes Cardio regular rate, regular rhythm, S1 normal heart sound, S2 normal heart sound, no murmurs, no rub, no gallops and no clicks GI normal to inspection, nondistended, normoactive bowel sounds, soft to palpation and non-tender Extremity no clubbing, cyanosis or edema Extremity Narrative: 2+ pedal pulses Skin no rashes or lesions noted, no wounds, skin turgor normal, no jaundice, no petechiae and no mottling Neuro oriented x3, CN's II-XII intact bilaterally, moves all extremities and no focal motor deficits Neuro Narrative: Mild fine tremor noted Speech: speech normal Motor Exam: strength 5/5 throughout Psych affect normal Psych Narrative: Seems calm, very pleasant Weight / BMI Weight Weight: 89.3 kg Body Mass Index (BMI) 25.9 ABG / Lab / Microbiology Data Result Diagrams: 06/17/22 08:43 06/20/22 06:05 Laboratory: Laboratory Results - last 24 hr 06/20/22 06:05: Sodium 137, Potassium 4.2, Chloride 101, Carbon Dioxide 29.0, Anion Gap 7, BUN 8, Creatinine 0.86, Estim Creat Clear Calc 147.10, Est GFR (MDRD) Af Amer 138, Est GFR (MDRD) Non-Af 114, BUN/Creatinine Ratio 9.3 L, Glucose 94, Calcium 9.1 D/C Instructions Discharge Diet: 1800 Calorie Control Diet Discharge Activity: Return to Normal Activity Return to work on: 06/21/22 Meaningful Use Info Meaningful Use Diagnoses (Choose all that apply): None applicable Discharge Plan Admission Admit Date/Time: 06/17/22 09:43 Primary Reason for Your Visit: EtOH dependence Attending Provider: Osiris Murphy Primary Care Provider: Care Physician,No Primary Instructions Additional Instructions / Restrictions: 1. Keep basal rate at 1 around the clock and keep track of your blood sugars. Call Dr. Ontiveros's office on Friday and update her with blood sugars to address any changes in needed basal rate 2. Follow-up with [facility] for outpatient addiction management as discussed with addiction medicine Discharge Orders/Prescriptions Prescriptions: Continued (DME) Omnipod 5 G6 Intro Kit (Gen 5) Cartridge See Rx Instructions .Route Qty: 1 0RF Rx Instructions: As directed (DME) Omnipod 5 G6 Pods (Gen 5) Cartridge See Rx Instructions .Route Qty: 30 1RF Rx Instructions: 1 pod q 72 hours (DME) Dexcom G6 Certified Master Locksmith Misc See Rx Instructions .Route Qty: 1 0RF Rx Instructions: As directed (DME) Dexcom G6 Sensor Device See Rx Instructions .Route Qty: 9 1RF Rx Instructions: 1 sensor q 10 days (DME) Dexcom G6 Transmitter Device See Rx Instructions .Route Qty: 1 1RF Rx Instructions: 1 transmitter q 90 days cholecalciferol (vitamin D3) 1,250 mcg (50,000 unit) capsule 1,250 mcg PO QWEEK Qty: 24 0RF insulin aspart U-100 [Novolog U-100 Insulin aspart] 100 unit/mL solution 100 unit continuous subcutaneous infusion .continuous Qty: 90 1RF Insulin Aspart [Novolog] 100 UNIT/ML Ml See Protocol subcut UD Protocol: 6. Sliding Scale Insulin Custom Condition: mg/dl range Dose/Route: Number of Units Protocol Text: Custom Sliding Scale Label Comments: INSULIN PUMP- VARYING HOURLY BASAL RATE from 8553-7915 1.3 units [id number] 1.35 units 8496-9915 1.4 units Rx Instructions: PT HAS INSULIN PUMP atorvastatin 10 mg Tablet 10 mg PO QHS metoprolol succinate 25 mg Capsule,Sprinkle,Er 24hr 25 mg PO DAILY ramipril 10 mg capsule 10 mg PO BID bupropion HCl 100 mg tablet 100 mg PO BID Label Comments: TAKE ONE TABLET BY MOUTH TWICE A DAY lorazepam 1 mg tablet 1 mg PO QHS Referrals / Follow Up: Paul Ontiveros MD [Med Staff - Courtesy Staff] - See Referral Note (Keep current scheduled appointment and call blood sugars to Dr. Ontiveros on Friday) Care Physician,No Primary [Primary Care Provider] - [facility] Doctor,Out of [Non-Staff] - Disposition Disposition (needs filled in before D/C Order can be placed): Home, Self Care Charges/Coding Visit Charges Inpatient E&M: 02066 Disch Hosp >30min
[2022-06-20 13:29] VITALS: BP 132/82; PULSE 71; RESP 18; TEMP 36.7; O2SAT 98
== END 2022-06-20 14:00 | disposition home or self-care (01) | DRG 897 ==
LOC: ED 09:33 → MS3 10:27
PROVIDERS: Family Medicine; Admitting Provider Internal Medicine; Emergency Provider Emergency Medicine; Visit Provider Internal Medicine
DX: F10.239 Alcohol dependence with withdrawal, unspecified (principal); E10.649 Type 1 diabetes mellitus with hypoglycemia without coma; K70.10 Alcoholic hepatitis without ascites; E10.65 Type 1 diabetes mellitus with hyperglycemia; Z79.4 Long term (current) use of insulin; I10 Essential (primary) hypertension; E78.00 Pure hypercholesterolemia, unspecified; E86.0 Dehydration; F41.9 Anxiety disorder, unspecified; E87.6 Hypokalemia; Z96.41 Presence of insulin pump (external) (internal); F32.A Depression, unspecified; E66.3 Overweight; Z68.25 Body mass index [BMI] 25.0-25.9, adult; Y90.8 Blood alcohol level of 240 mg/100 ml or more; Z79.899 Other long term (current) drug therapy
CPT/HCPCS: 36415; 80048; 80053; 80307; 82009; 82077; 83036; 83735; 84100; 85025; 85610; 99285; J7030; J7120; A4216; J2405; J3490

== ENCOUNTER 2022-07-03 15:42 | Emergency (ER) | payer OTHER, SELFPAY ==
[2022-07-03 15:43] VITALS: BP 182/118; PULSE 93; RESP 18; TEMP 36.1; O2SAT 100; BMI 26.4
--- NOTE | 2022-07-03 17:54 | EDS_ITS ---
HPI History of Present Illness Chief Complaint: Allergic Reaction Narrative Narrative: 27-year-old male presenting with diffuse rash. He states is on his trunk, extremities. It started on Friday. Patient notes that he was started on 3 new medications when he left the hospital for detox recently. He believes his atorvastatin, broke gone. He discontinued use of these and his rash does not resolve. He is not short of breath. He does not have any trouble swallowing or breathing. [facility] Medical History Alcohol abuse Alcohol dependence Anxiety Depression Diabetes mellitus type 1 High cholesterol HTN (hypertension) Presence of insulin pump Vitamin D deficiency Home Medications Insulin Aspart [Novolog] See Protocol subcut UD dm 12/29/14 [History Last Taken 09/25/21] atorvastatin 10 mg tablet 10 mg PO QHS cholesterol lowering 09/25/21 [History Last Taken 09/21/21] metoprolol succinate 25 mg capsule sprinkle, ext. release 24 hr 25 mg PO DAILY blood pressure 09/25/21 [History Last Taken 09/23/21] Dexcom G6 Computerized [employer] Mill Recorder (blood-glucose meter,continuous) #1 ea 11/14/21 [Rx Last Taken Unknown] Dexcom G6 Sensor (blood-glucose sensor) #9 ea 11/14/21 [Rx Last Taken Unknown] Dexcom G6 Transmitter (blood-glucose transmitter) #1 ea 11/14/21 [Rx Last Taken Unknown] cholecalciferol (vitamin D3) 1,250 mcg (50,000 unit) capsule 1,250 mcg PO QWEEK #24 caps 11/14/21 [Rx Last Taken Unknown] insulin pump cart,automated,BT (Omnipod 5 G6 Pods (Gen 5) subcutaneous cartridge) #30 ea 11/14/21 [Rx Last Taken Unknown] insulin pump cartridge,automated dose,BT with controller subcutaneous (Omnipod 5 G6 Intro Kit (Gen 5) subcutaneous cartridge with controller) #1 ea 11/14/21 [Rx Last Taken Unknown] Novolog U-100 Insulin aspart 100 unit/mL subcutaneous solution (insulin aspart U-100) 100 unit continuous subcutaneous infusion .continuous #90 mL 05/29/22 [Rx Last Taken Unknown] bupropion HCl 100 mg tablet 100 mg PO BID depression 06/17/22 [History Last Taken Unknown] lorazepam 1 mg tablet 1 mg PO QHS anxiety 06/17/22 [History Last Taken Unknown] ramipril 10 mg capsule 10 mg PO BID blood pressures 06/17/22 [History Last Taken Unknown] Allergy/AdvReac Type Severity Reaction Status Date / Time No Known Allergies Allergy Verified 07/03/22 15:42 Family History Mother Hypertension Surgical History No history of previous surgery Social History household members: none housing: apartment Smoking Status: Never smoker alcohol intake: current alcohol intake frequency: 3 or more drinks per day Alcohol type: beer and hard liquor substance use type: does not use ROS ROS ED Constitutional Constitutional ED: Denies chills, fever(s) or sweats Eyes Eyes: Denies blurry vision or change in vision ENT ENT ED: Denies ear pain or sore throat Cardiovascular Cardiovascular: Denies chest pain, palpitations or racing heartbeat Respiratory/Chest Respiratory/Chest: Denies cough, dyspnea or sputum Gastrointestinal Gastrointestinal: Denies abdominal pain, constipation, diarrhea, nausea or vomiting Genitourinary Genitourinary ED: Denies dysuria, hematuria or urinary frequency Musculoskeletal Musculoskeletal: Denies arthralgias, myalgias or neck pain Integumentary Reports rash; Denies abscess or Abrasions Neurologic Neurologic: Denies headache(s), paresthesias or weakness Psychiatric Psychiatric: Denies anxiety, depression, suicidal ideation or suicidal thoughts Endocrine Endocrinology: Denies polydipsia or polyuria EXAM Physical Exam Const Vital Signs: 07/03/22 15:43 07/03/22 18:13 07/03/22 19:51 Temperature 96.9 F L Temperature Source Temporal Pulse Rate 93 79 79 Respiratory Rate 18 17 16 Blood Pressure 182/118 H 157/97 H Blood Pressure Mean 139 Pulse Ox 100 99 99 Oxygen Delivery Method Room Air Room Air General Appearance ED: Negative for pallor HEENT Reports normocephalic, head/scalp atraumatic and moist mucous membranes Eyes PERRL and EOMs intact bilaterally Neck no lymphadenopathy and supple Chest Wall inspection of chest normal and palpation of chest normal Resp normal respiratory effort and clear to auscultation bilaterally Auscultation: Negative for rales, rhonchi or wheezes Cardio regular rate and regular rhythm GI normal to inspection, nondistended, normoactive bowel sounds and non-distended Auscultation: normoactive bowel sounds Palpation: soft Narrative: Deferred Back/Spine no CVA tenderness General Back: Negative for CVA tenderness Cervical Spine: Negative for cervical spine tenderness Extremity normal to inspection General Extremety ED: Yes edema and tenderness General Extremity: edema Neuro oriented x3 and CN's II-XII intact bilaterally Sensorium / Orientation: alert Motor Exam: strength 5/5 throughout Psych mental status grossly normal Attitude: No agitated Skin no wounds Skin Narrative: Maculopapular rash on trunk and extremities. General Skin Exam: Negative for jaundice or pallor MDM MDM MDM Narrative Medical decision making narrative: 27-year-old male presenting with diffuse rash on his trunk and extremities. He states this is believed to be a medication side effect he is started some new medications as an outpatient. He stopped taking these 3 days ago and his rash is not completely resolving. Patient is a type I diabetic so I wanted to stay away from steroids. He did get a dose of epinephrine, Benadryl, Pepcid and his rash is improved dramatically. I feel he stable for discharge home. He will follow-up with his PCP she reached start his medications as an outpatient. Return precautions discussed. Impression: 1. Drug reaction Lab Data Attestation: I reviewed the patient's lab results. Discharge Plan Triage Chief Complaint: Allergic Reaction ED Provider: Dipesh Corrales Dx/Rx/DC Orders Instructions: ED ADVERSE DRUG REACTION Allergic Prescriptions: No Action (DME) Omnipod 5 G6 Intro Kit (Gen 5) Cartridge See Rx Instructions .Route Qty: 1 0RF Rx Instructions: As directed (DME) Omnipod 5 G6 Pods (Gen 5) Cartridge See Rx Instructions .Route Qty: 30 1RF Rx Instructions: 1 pod q 72 hours (DME) Dexcom G6 Computerized [employer] Mill Recorder Misc See Rx Instructions .Route Qty: 1 0RF Rx Instructions: As directed (DME) Dexcom G6 Sensor Device See Rx Instructions .Route Qty: 9 1RF Rx Instructions: 1 sensor q 10 days (DME) Dexcom G6 Transmitter Device See Rx Instructions .Route Qty: 1 1RF Rx Instructions: 1 transmitter q 90 days cholecalciferol (vitamin D3) 1,250 mcg (50,000 unit) capsule 1,250 mcg PO QWEEK Qty: 24 0RF insulin aspart U-100 [Novolog U-100 Insulin aspart] 100 unit/mL solution 100 unit continuous subcutaneous infusion .continuous Qty: 90 1RF Insulin Aspart [Novolog] 100 UNIT/ML Ml See Protocol subcut UD Protocol: 6. Sliding Scale Insulin Custom Condition: mg/dl range Dose/Route: Number of Units Protocol Text: Custom Sliding Scale Label Comments: INSULIN PUMP- VARYING HOURLY BASAL RATE from 3045-7580 1.3 units [id number] 1.35 units [id number] 1.4 units Rx Instructions: PT HAS INSULIN PUMP atorvastatin 10 mg Tablet 10 mg PO QHS metoprolol succinate 25 mg Capsule,Sprinkle,Er 24hr 25 mg PO DAILY ramipril 10 mg capsule 10 mg PO BID bupropion HCl 100 mg tablet 100 mg PO BID Label Comments: TAKE ONE TABLET BY MOUTH TWICE A DAY lorazepam 1 mg tablet 1 mg PO QHS Primary Care Provider: Jarocho Rice MD Referrals: Jarocho Rice MD [Other] Disposition Disposition: Home, Self Care Discharge Date/Time: 07/03/22 19:57
[2022-07-03] MEDS: 0.9% Normal Saline 1,000 ML 999 ML IV (18:04)
[2022-07-03] MEDS: DiphenhydrAMINE 50 MG/ML Syringe IV (18:04)
[2022-07-03] MEDS: Epi Pen (EQUIV) 0.3 MG Syringe IM (18:04)
[2022-07-03] MEDS: Famotidine 200 MG/20 ML MDV 20 MG in 0.9% Normal Saline (Pres. free 8 ML 300 MG IV (18:11)
[2022-07-03 18:13] VITALS: PULSE 79; RESP 17; O2SAT 99
[2022-07-03 19:51] VITALS: BP 157/97; PULSE 79; RESP 16; O2SAT 99
== END 2022-07-03 19:57 | disposition home or self-care (01) ==
PROVIDERS: Emergency Provider Student in an Organized Health Care Education/Training Program; Visit Provider Student in an Organized Health Care Education/Training Program
DX: T50.905A Adverse effect of unspecified drugs, medicaments and biological substances, initial encounter (principal); R21 Rash and other nonspecific skin eruption
CPT/HCPCS: 96374; 99283; J7030; A4216; J3490

== ENCOUNTER 2022-07-15 21:18 | Inpatient (IN) | payer OTHER, SELFPAY ==
[2022-07-15 21:19] VITALS: BP 177/159; PULSE 116; RESP 16; TEMP 35.9; O2SAT 97; BMI 23.6
--- NOTE | 2022-07-15 21:46 | EDS_ITS ---
HPI History of Present Illness Chief Complaint: Hyperglycemia Informant: patient Onset/Context/Timing Onset: Days Context: Gradual Onset Timing: Intermittent Current Severity: Mild Maximum Severity: Mild Narrative Narrative: 27-year-old male history of diabetes, alcohol abuse for which he underwent recent admission for detox, hypertension and anxiety. Says that he has a automatic insulin pump. However he has been out of his insulin pods since Friday. His sugars have been going up and down High C been in the mid 300s. He has had some nausea and vomiting. No diarrhea. No fever. He wants to make sure he is not in DKA. Prior similar symptoms: Yes Recent Illness/Hospitalization: Yes [facility] Medical History Alcohol abuse Alcohol dependence Anxiety Depression Diabetes mellitus type 1 High cholesterol HTN (hypertension) Presence of insulin pump Vitamin D deficiency Home Medications Insulin Aspart [Novolog] See Protocol subcut UD dm 12/29/14 [History Last Taken 09/25/21] atorvastatin 10 mg tablet 10 mg PO QHS cholesterol lowering 09/25/21 [History Last Taken 09/21/21] metoprolol succinate 25 mg capsule sprinkle, ext. release 24 hr 25 mg PO DAILY blood pressure 09/25/21 [History Last Taken 09/23/21] Dexcom G6 Customer Servicer (blood-glucose meter,continuous) #1 ea 11/14/21 [Rx Last Taken Unknown] Dexcom G6 Sensor (blood-glucose sensor) #9 ea 11/14/21 [Rx Last Taken Unknown] Dexcom G6 Transmitter (blood-glucose transmitter) #1 ea 11/14/21 [Rx Last Taken Unknown] cholecalciferol (vitamin D3) 1,250 mcg (50,000 unit) capsule 1,250 mcg PO QWEEK #24 caps 11/14/21 [Rx Last Taken Unknown] insulin pump cart,automated,BT (Omnipod 5 G6 Pods (Gen 5) subcutaneous cartridge) #30 ea 11/14/21 [Rx Last Taken Unknown] insulin pump cartridge,automated dose,BT with controller subcutaneous (Omnipod 5 G6 Intro Kit (Gen 5) subcutaneous cartridge with controller) #1 ea 11/14/21 [Rx Last Taken Unknown] Novolog U-100 Insulin aspart 100 unit/mL subcutaneous solution (insulin aspart U-100) 100 unit continuous subcutaneous infusion .continuous #90 mL 05/29/22 [Rx Last Taken Unknown] bupropion HCl 100 mg tablet 100 mg PO BID depression 06/17/22 [History Last Taken Unknown] lorazepam 1 mg tablet 1 mg PO QHS anxiety 06/17/22 [History Last Taken Unknown] ramipril 10 mg capsule 10 mg PO BID blood pressures 06/17/22 [History Last Taken Unknown] Allergy/AdvReac Type Severity Reaction Status Date / Time No Known Allergies Allergy Verified 07/03/22 15:42 Family History Mother Hypertension Surgical History No history of previous surgery Social History household members: none housing: apartment Smoking Status: Never smoker alcohol intake: current alcohol intake frequency: 3 or more drinks per day Alcohol type: beer and hard liquor substance use type: does not use ROS ROS ED ROS Narrative Nausea and vomiting intermittently. Review of Systems ROS Unobtainable: Denies due to encephalopathy Constitutional Constitutional ED: Denies chills or fever(s) Eyes Eyes: Denies blurry vision ENT ENT ED: Denies ear pain Cardiovascular Cardiovascular: Denies chest pain Respiratory/Chest Respiratory/Chest: Denies cough or dyspnea Gastrointestinal Gastrointestinal: Reports nausea and vomiting; Denies abdominal pain, constipation, diarrhea or melena Genitourinary Genitourinary ED: Denies dysuria or hematuria Musculoskeletal Musculoskeletal: Denies arthralgias Integumentary Denies abscess Neurologic Neurologic: Denies headache(s) Psychiatric Psychiatric: Denies anxiety Endocrine Endocrinology: Denies cold intolerance Hematologic/Lymphatic Hematologic/Lymphatic: Reports none Allergic/Immunologic Allergic/Immunologic ED: Denies mouth swelling, tongue swelling or urticaria EXAM Physical Exam Narrative Exam Narrative: 27-year-old male no acute distress. Vital signs his blood pressure is elevated 170s and 159 OB recheck. Heart rate 116. Pulse ox 97% on room air no hypoxia. He is afebrile. He does not look septic or toxic. H EENT exam unremarkable. Neck nontender no JVD. Lungs clear to auscultation bilaterally. Heart tachycardic rate about 110 no murmur. Abdomen soft nontender normal bowel sounds no peritoneal signs. Moving all 4 extremities. Nontender no edema. Back nontender. Skin unremarkable. Neurologically is awake alert no focal motor deficits. Const Vital Signs: 07/15/22 21:19 Temperature 96.7 F L Temperature Source Temporal Pulse Rate 116 H Respiratory Rate 16 Blood Pressure 177/159 H Blood Pressure Mean 165 Pulse Ox 97 Oxygen Delivery Method Room Air Positive well nourished and well developed; Negative for obese, cachectic, contractures or unkempt General Appearance ED: well developed and NAD; Negative for unkempt, cachectic, contractures, cyanotic, diaphoretic or pallor Nutritional Appearance: Negative for cachectic or obese HEENT Reports moist mucous membranes; Denies dry mucous membranes Negative for trauma or tenderness Mouth ED: No dry mucous membranes Mouth: No dry mucous membranes Eyes PERRL and EOMs intact bilaterally General Eye ED: Negative for pale conjunctiva or scleral icterus Neck no lymphadenopathy, supple and no JVD General: Negative for tenderness Chest Wall inspection of chest normal and palpation of chest normal Chest: Negative for other Resp normal respiratory effort and clear to auscultation bilaterally Effort and Inspection: Negative for retractions Auscultation: Negative for rales, rhonchi, wheezes or diminished lung sounds Cardio regular rhythm, S1 normal heart sound, S2 normal heart sound and no murmurs; Negative for regular rate Rate: tachycardic GI normal to inspection, nondistended, normoactive bowel sounds, non-tender, non- distended and no masses; Negative for hepatosplenomegaly Inspection: Negative for abdominal distention Auscultation: normoactive bowel sounds Palpation: soft; Negative for tender or guarding Back/Spine no CVA tenderness General Back: Negative for CVA tenderness Cervical Spine: Negative for cervical spine tenderness Thoracic Spine / Upper Back: Negative for thoracic spinal tenderness Lumbar Spine / Lower Back: Negative for lumbar spinal tenderness Extremity normal to inspection General Extremety ED: Negative for edema or tenderness General Extremity: Negative for edema Neuro oriented x3 and CN's II-XII intact bilaterally Sensorium / Orientation: alert; Negative for orientation impaired, lethargic or stuporous Motor Exam: strength 5/5 throughout Psych mental status grossly normal Appearance: Negative for unkempt Attitude: agitated Mood & Affect: anxious; Negative for depressed or tearful Skin no rashes or lesions noted and no wounds General Skin Exam: Negative for jaundice or pallor Rashes: No rashes noted Trauma: Negative for abrasion Wounds: Negative for wounds noted MDM MDM MDM Narrative Medical decision making narrative: 27-year-old diabetic male out of his insulin pods for his insulin pump. Concern he may have gone back into DKA. Nausea and vomiting. Blood sugars between 2 and mid 300s. Will be treated with IV fluids. Screening labs and serum ketones to be obtained. Zofran for nausea. Patient on repeat exam no significant change. Patient will be given a second liter normal saline and started on insulin drip. Patient is in DKA and I will call the hospitalist for admission. Lab Data Attestation: I reviewed the patient's lab results. Lab results narrative: This is awake 11.9. H&H is 16.6 and 48. Platelets 163. Electrolytes show sodium 133. Anion gap of 27. BUN of 20 creatinine 1.59. Glucose is only 285. Serum ketones are moderate. This is consistent with DKA. Labs: Laboratory Results - last 24 hr 07/15/22 07/15/22 07/15/22 22:05 22:05 22:05 WBC 11.9 H RBC 5.34 Hgb 16.6 H Hct 48.3 MCV 90.4 MCH 31.1 MCHC 34.4 RDW Std Deviation 42.1 RDW Coeff of Last 12.8 Plt Count 163 MPV 9.8 Immature Gran % (Auto) 0.400 Neut % (Auto) 77.3 H Lymph % (Auto) 8.3 L [place] % (Auto) 12.8 H Eos % (Auto) 0.1 Baso % (Auto) 1.1 H Absolute Neuts (auto) 9.2 H Absolute Lymphs (auto) 0.99 Nucleated RBC % 0 Differential Comment SCANNED Diff Path Review May foll Sodium 133 L Potassium 3.8 Chloride 96 L Carbon Dioxide 10.0 L Anion Gap 27 H BUN 20 H Creatinine 1.59 H Estim Creat Clear Calc 79.56 Est GFR (MDRD) Af Amer 68 Est GFR (MDRD) Non-Af 56 L BUN/Creatinine Ratio 12.6 Glucose 285 H Calcium 9.8 Acetone Level MODERATE H Critical Care Time Critical Care Time: Yes Critical care time (excluding procedures): 30-74 minutes, Including time spent:, Discussing w/Patient &/or Family/Source Water Protection Specialist, Discussing w/Consultants, Arranging Admission or Transfer, Performing Direct Patient Care at Bedside and - (35 min) Discharge Plan Dx/Rx/DC Orders Clinical Impression: Diabetic keto-acidosis, History of diabetes mellitus, High anion gap metabolic acidosis, Acute kidney injury Disposition Disposition: Acute Care [facility]
[2022-07-15] MEDS: 0.9% Normal Saline 1,000 ML 999 ML IV ×2 (22:05→23:28)
[2022-07-15] MEDS: Ondansetron 4 MG/2 ML Vial IV (22:05)
[2022-07-15 22:14] LABS: Absolute Lymphocyte Count 0.99 X10^3/uL (0.83-4.51); Absolute Neutrophil Count 9.2 X10^3/uL (2.0-7.7); Basophil# 0.13 X10^3/uL; Basophil% 1.1 % (0-1); Eosinophil# 0.01 X10^3/uL; Eosinophils% 0.1 % (0-5); Hematocrit 48.3 % (40-54); Hemoglobin 16.6 g/dL (13.0-16.5); Lymphocyte # 0.99 X10^3/ul (0.83-4.51); Lymphocyte % 8.3 % (19-41); Mean Corp Hgb Conc 34.4 g/dL (32-36); Mean Corpuscular Hgb 31.1 pg (27.0-32.0); Mean Corpuscular Volume 90.4 fL (80-94); Mean Platelet Vol. 9.8 fl (6.2-12.0); Monocyte# 1.52 X10^3/uL; Monocyte% 12.8 % (0-10); NRBC Flagged by Analyzer 0 % (0-5); Neutrophil % 77.3 % (47-70); POSITIVE DIFFERENTIAL YES; Platelet Count 163 K/mm3 (150-450); RBC Distribution Width CV 12.8 % (11.6-14.6); RBC Distribution Width SD 42.1 fl (35.1-43.9); Red Blood Count 5.34 M/mm3 (4.6-6.2); White Blood Count 11.9 K/mm3 (4.4-11.0)
[2022-07-15 22:18] LABS: Differential Indicated SCAN CRITERIA MET
[2022-07-15 22:26] LABS: Anion Gap 27 (5-15); BUN 20 mg/dL (7-18); BUN/Creat Ratio 12.6 RATIO (10-20); Calcium,Total 9.8 mg/dL (8.5-10.1); Chloride 96 mmol/L (98-107); Creatinine, Serum 1.59 mg/dL (0.70-1.30); EST Glomerular Filtration Rate 56 mL/min (>60); Est Glom Filt Rate - Afr Amer 68 mL/min (>60); Estimated Creatinine Clearance 79.56 ml/min; Glucose 285 mg/dL (74-106); Potassium 3.8 mmol/L (3.5-5.1); Sodium Level 133 mmol/L (136-145)
[2022-07-15 22:50] LABS: Differential Comment SCANNED
--- NOTE | 2022-07-15 23:38 | PCM.HP.STD ---
HPI - General General Date of Admission: 07/15/22 Date of Service: 07/15/22 HPI Narrative JORGE HOLLIS, is a 27-year-old male with history of type 1 diabetes on an insulin pump, hypertension, alcohol abuse recently here for detox, who presented to [facility] 07/15/2022 feeling as though he was going into DKA. He ran out of pods for his glucometer on Friday and glucoses have been in 2-3 100s. Has had some nausea and vomiting. In ED he was found to have a gap of 27 and a bicarb of 10 with a glucose of 285 and he had moderate acetone as well as an KATI. He was bolused with fluid and started on insulin drip and hospitalist consulted for admission. Eval patient with family member at bedside, reportedly he had been in his usual health until Friday when he ran out of insulin pods, he picked up long-acting insulin from [employer] on Friday and was using that and sliding scale but was waxing and waning with feeling unwell and several times thought he may be going into DKA then over the past 24 hours or so he began vomiting and has not been able to tolerate p.o. and had vomited in the double digits and has a somewhat sore throat, had an episode of abdominal pain on the x1 but this resolved and did not return. Denies other complaints at this time. Reports he has not drank in over a week. [facility] Medical History Alcohol abuse Alcohol dependence Anxiety Depression Diabetes mellitus type 1 High cholesterol HTN (hypertension) Presence of insulin pump Vitamin D deficiency Home Medications Insulin Aspart [Novolog] See Protocol subcut UD dm 12/29/14 [History Last Taken 09/25/21] atorvastatin 10 mg tablet 10 mg PO QHS cholesterol lowering 09/25/21 [History Last Taken 09/21/21] metoprolol succinate 25 mg capsule sprinkle, ext. release 24 hr 25 mg PO DAILY blood pressure 09/25/21 [History Last Taken 09/23/21] Dexcom G6 Grain Spouter (blood-glucose meter,continuous) #1 ea 11/14/21 [Rx Last Taken Unknown] Dexcom G6 Sensor (blood-glucose sensor) #9 ea 11/14/21 [Rx Last Taken Unknown] Dexcom G6 Transmitter (blood-glucose transmitter) #1 ea 11/14/21 [Rx Last Taken Unknown] cholecalciferol (vitamin D3) 1,250 mcg (50,000 unit) capsule 1,250 mcg PO QWEEK #24 caps 11/14/21 [Rx Last Taken Unknown] insulin pump cart,automated,BT (Omnipod 5 G6 Pods (Gen 5) subcutaneous cartridge) #30 ea 11/14/21 [Rx Last Taken Unknown] insulin pump cartridge,automated dose,BT with controller subcutaneous (Omnipod 5 G6 Intro Kit (Gen 5) subcutaneous cartridge with controller) #1 ea 11/14/21 [Rx Last Taken Unknown] Novolog U-100 Insulin aspart 100 unit/mL subcutaneous solution (insulin aspart U-100) 100 unit continuous subcutaneous infusion .continuous #90 mL 05/29/22 [Rx Last Taken Unknown] bupropion HCl 100 mg tablet 100 mg PO BID depression 06/17/22 [History Last Taken Unknown] lorazepam 1 mg tablet 1 mg PO QHS anxiety 06/17/22 [History Last Taken Unknown] ramipril 10 mg capsule 10 mg PO BID blood pressures 06/17/22 [History Last Taken Unknown] Allergy/AdvReac Type Severity Reaction Status Date / Time No Known Allergies Allergy Verified 07/03/22 15:42 Family History Mother Hypertension Surgical History No history of previous surgery Social History household members: none housing: apartment Smoking Status: Never smoker alcohol intake: current alcohol intake frequency: 3 or more drinks per day Alcohol type: beer and hard liquor substance use type: does not use ROS ROS Narrative General: Denies fever or chills, generally feels unwell HENT: Denies headache, denies stuffy nose, throat slightly sore from throwing up EYES: Denies changes in vision Resp: Denies cough, denies shortness of breath Cardiac: Denies chest pain GI: Abdominal pain resolved but was having nausea and vomiting but is not vomited since 1 hour prior to ED : Denies changes in urination Extremity: Denies swelling MSK: Some generalized weakness Neuro: Denies any numbness, denies tingling Heme: Denies any bleeding or bruising Skin: Denies rashes Psychiatric: No complaints voiced Vital Signs Vital Signs Vital Signs: 07/15/22 21:19 Temperature 96.7 F L Temperature Source Temporal Pulse Rate 116 H Respiratory Rate 16 Blood Pressure 177/159 H Blood Pressure Mean 165 Pulse Ox 97 Oxygen Delivery Method Room Air Weight Weight: 81.102 kg Body Mass Index (BMI) 23.6 Physical Exam Narrative General: Alert, oriented, no apparent distress HEENT: Atraumatic, normocephalic Eyes: Anicteric, normal conjunctiva, extraocular movements grossly intact Neck: Supple Respiratory: Clear to auscultation bilaterally, normal respiratory effort Cardiovascular: Regular rate and rhythm GI: Soft, nontender, nondistended Extremities: No edema Musculoskeletal: Moving all extremities Neuro: No overt focal neurological deficits Skin: No rashes appreciated Psych: Cooperative Results Lab / Micro Data Result Diagrams: 07/15/22 22:05 07/15/22 22:05 Labs: Laboratory Results - last 24 hr 07/15/22 22:05: WBC 11.9 H, RBC 5.34, Hgb 16.6 H, Hct 48.3, MCV 90.4, MCH 31.1, MCHC 34.4, RDW Std Deviation 42.1, RDW Coeff of Last 12.8, Plt Count 163, MPV 9.8, Immature Gran % (Auto) 0.400, Neut % (Auto) 77.3 H, Lymph % (Auto) 8.3 L, [place] % (Auto) 12.8 H, Eos % (Auto) 0.1, Baso % (Auto) 1.1 H, Absolute Neuts (auto) 9.2 H, Absolute Lymphs (auto) 0.99, Nucleated RBC % 0, Differential Comment SCANNED, Diff Path Review September foll 07/15/22 22:05: Sodium 133 L, Potassium 3.8, Chloride 96 L, Carbon Dioxide 10.0 L, Anion Gap 27 H, BUN 20 H, Creatinine 1.59 H, Estim Creat Clear Calc 79.56, Est GFR (MDRD) Af Amer 68, Est GFR (MDRD) Non-Af 56 L, BUN/Creatinine Ratio 12.6, Glucose 285 H, Calcium 9.8 07/15/22 22:05: Acetone Level MODERATE H Assessment & Plan Assessment/Plan (1) Diabetic keto-acidosis: (2) History of diabetes mellitus: (3) High anion gap metabolic acidosis: (4) Acute kidney injury: PLAN: Plan #HIAGMA 2/2 DKA in setting of type 1 diabetes mellitus usually on insulin pump -DKA secondary to running out of insulin pods on Friday and ineffective long-acting with sliding scale regimen -Had moderate acetone and a gap of 27 with a glucose of 285 and CO2 of 10.0 -We will start DKA protocol with insulin drip, BMPs every 4, glucose checks -3 L fluid boluses and maintenance ordered -We will monitor in the ICU -Follows with Dr. Ontiveros as an outpatient #KATI -Possibly secondary to dehydration from his DKA -We will hydrate and follow BMP in a.m. hold lisinopril #Alcohol abuse -Was here 06/17 for alcohol detox, reports not drinking for over a week but family member was in the room -We will obtain EtOH level and CIWA at this time, once family member no longer present can reattempt to discuss this and if no recent alcohol use can DC -Thiamine folate #Hypertension -Fairly hypertensive in ED, on ramipril at home but will hold this given kidney function and will add as needed medication and continue beta-danielle -Labetalol as needed #DVT ppx: Raj, SCDs Teresa Cedillo MD Time spent in the patient's overall evaluation,decision-making process, review of diagnostic data, adjustment of management, discussion with other providers, nursing nursing and ancillary staff involved in patient's care documentation, 60 minutes Charges/Coding Visit Charges Inpatient E&M: 38860 Init Hosp L2
[2022-07-16] VITALS (17 sets, daily range): BP systolic 132–162; BP diastolic 91–111; PULSE 85–108; RESP 13–19; TEMP 36.2–36.8; O2SAT 97–100; BMI 24.3
[2022-07-16 00:04] LABS: Magnesium 2.2 mg/dL (1.6-2.6)
[2022-07-16 00:11] LABS: Bedside Glucose 219 mg/dL (74-106)
[2022-07-16 00:26] LABS: Osmolality, Serum 310 mOsm/KG (275-295)
[2022-07-16] MEDS: Dext 5%-0.45% NS 1,000 ML 150 ML IV (01:06)
[2022-07-16 01:41] LABS: Allen Test Positive; Base Excess -12 mmol/L (-2 to +2); Bicarbonate 13.3 mmol/L (22-26); Blood Gas Specimen Type ART; FI02 21; O2 Delivery Device Room Air; PO2 104 mmHG (75-100); SITE R Radial; SO2 98 % (95-99); Total Carbon Dioxide 14 mmol/L; pCO2 23.1 mmHg (35-45); pH 7.37 (7.35-7.45)
[2022-07-16 01:50] LABS: Alcohol, Blood (Medical)-Serum < 3.0 mg/dL; Anion Gap 19 (5-15); BUN 17 mg/dL (7-18); BUN/Creat Ratio 13.3 RATIO (10-20); Calcium,Total 8.5 mg/dL (8.5-10.1); Chloride 103 mmol/L (98-107); Creatinine, Serum 1.28 mg/dL (0.70-1.30); EST Glomerular Filtration Rate 72 mL/min (>60); Est Glom Filt Rate - Afr Amer 87 mL/min (>60); Estimated Creatinine Clearance 98.83 ml/min; Glucose 168 mg/dL (74-106); Potassium 4.7 mmol/L (3.5-5.1); Sodium Level 137 mmol/L (136-145)
[2022-07-16 02:00] LABS: Hemoglobin A1c 8.5 % (3.8-5.6)
[2022-07-16 02:20] LABS: Bedside Glucose 119 mg/dL (74-106)
[2022-07-16 02:20] LABS: Bedside Glucose 168 mg/dL (74-106)
[2022-07-16 05:07] LABS: Albumin, Serum 3.1 g/dL (3.2-5.0); BUN 14 mg/dL (7-18); BUN/Creat Ratio 11.1 RATIO (10-20); Creatinine, Serum 1.26 mg/dL (0.70-1.30); EST Glomerular Filtration Rate 73 mL/min (>60); Est Glom Filt Rate - Afr Amer 89 mL/min (>60); Glucose 462 mg/dL (74-106); Protein, Total 5.9 g/dL (6.4-8.2)
[2022-07-16 05:08] LABS: ALB/GLOB Ratio 1.1 RATIO (0.9-2.4); AST(SGOT) 27 U/L (15-37); Alanine Aminotransfer ALT/SGPT 48 U/L (16-61); Alkaline Phosphatase 75 U/L (45-117); Anion Gap 13 (5-15); Calcium,Total 7.7 mg/dL (8.5-10.1); Chloride 102 mmol/L (98-107); Globulin 2.8 g/dL (2.2-4.2); Potassium 3.1 mmol/L (3.5-5.1); Sodium Level 134 mmol/L (136-145)
[2022-07-16 05:40] LABS: Bedside Glucose 114 mg/dL (74-106)
[2022-07-16 05:40] LABS: Bedside Glucose 155 mg/dL (74-106)
[2022-07-16 05:40] LABS: Bedside Glucose 248 mg/dL (74-106)
[2022-07-16 08:41] LABS: Bedside Glucose 96 mg/dL (74-106)
[2022-07-16 08:41] LABS: Bedside Glucose 87 mg/dL (74-106)
[2022-07-16 08:41] LABS: Bedside Glucose 84 mg/dL (74-106)
[2022-07-16] MEDS: Insulin Lispro 100 UNIT/ML INSULN.PEN 6 UNIT SC (08:53)
[2022-07-16] MEDS: Insulin Glargine-YFGN 100 UNIT/ML Pen 24 UNIT SC (08:53)
[2022-07-16] MEDS: Metoprolol(XL)Succ 25 MG Tablet PO (08:58)
[2022-07-16] MEDS: Potassium Chloride Oral Tablet 20 MEQ 40 MEQ PO (08:59)
--- NOTE | 2022-07-16 10:41 | CASEMGMT ---
Addendum entered by Mara Dior 07/16/22 10:58: Per Dr Murphy, she has spoken w/Dr Ontiveros who states she has insulin in stock @ her office she can give to pt until the insulin pump pods come in. Dr Murphy to room to inform pt of same. Original Note: RN CM BURRING WHEEL OPERATOR CM to room to meet with patient for initial transition planning/care coordination assessment. RN TAMARA introduced self and role at [facility]. Pt voices understanding and consents to assessment at this time. Pt resting in bed in no distress at this time. Mother @ bedside. Pt agreeable to assessment w/mother in room. Pt is A/O at this time and answers all questions appropriately. Care providers, pharmacy, and demographics verified/updated at this time. PCP: Dr Rice @ [facility] in [place]. Mother and pt interested in pt getting PCP closer to home. Provided w/list of local PCP's. 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 Mother states there are FMLA papers that need completed and asked if this could be done while @ [facility]. RN TAMARA instructed them to f/u with PCP or Dr Ontiveros, as FMLA is on-going and hospitalist unable to follow for any on-going paperwork/info. They voice understanding. Preferred Pharmacy: [facility]. Insurance: MMO Prescription Benefit: Yes. Pt gets his insulin pump pods from [facility] home delivery. He ran out of pods for insulin pump and was unable to get refills thru his insurance co. Pt and mother state this was d/t he was previously under his mother's insurance plan and switched to his own insurance plan when he recently turned 27 and his prior rx's/refills were placed on hold until his new plan went into effect. Living Will/HPOA: Pt does not currently have LW/HCPOA LNOK: Mother, Iwona. Father, Vu Living Arrangements: Lives alone in one-story apartment. Independent. Mother assists pt as needed and helps w/getting groceries/supplies/medications. Transportation: Pt states he has not been driving. His mother provides transportation. DME: Has a functioning glucometer w/supplies. Denies need for other DME HHC/SNF: No hx of either. No needs identified. Pt wishes to return home and states has no further concerns with going home at time of discharge. CM to follow for any discharge planning/needs. Pt and mother voice no further concerns/needs at this time. Advised them to ask for CM if any further questions/concerns/needs arise. They voice understanding. PLAN: Home. Madhavi HILARIO RN CM
--- NOTE | 2022-07-16 11:05 | DS.PCM_ITS ---
Providers Date of Admission: 07/15/22 Date of Discharge: 07/16/22 Reason For Visit: DKA Diagnosis Discharge Diagnosis (1) Diabetic keto-acidosis: Status: Acute Code(s): E11.10 - Type 2 diabetes mellitus with ketoacidosis without coma (2) History of diabetes mellitus: Status: Acute Code(s): Z86.39 - Personal history of other endocrine, nutritional and metabolic disease (3) High anion gap metabolic acidosis: Status: Acute Code(s): E87.29 - Other acidosis (4) Acute kidney injury: Status: Acute Code(s): N17.9 - Acute kidney failure, unspecified Medications at Discharge Home Medications Insulin Aspart [Novolog] See Protocol subcut UD dm 12/29/14 atorvastatin 10 mg tablet 10 mg PO QHS cholesterol lowering 09/25/21 metoprolol succinate 25 mg capsule sprinkle, ext. release 24 hr 25 mg PO DAILY blood pressure 09/25/21 Dexcom G6 Sheetmetal Worker (blood-glucose meter,continuous) #1 ea 11/14/21 Dexcom G6 Sensor (blood-glucose sensor) #9 ea 11/14/21 Dexcom G6 Transmitter (blood-glucose transmitter) #1 ea 11/14/21 cholecalciferol (vitamin D3) 1,250 mcg (50,000 unit) capsule 1,250 mcg PO QWEEK #24 caps 11/14/21 insulin pump cart,automated,BT (Omnipod 5 G6 Pods (Gen 5) subcutaneous cartridge) #30 ea 11/14/21 insulin pump cartridge,automated dose,BT with controller subcutaneous (Omnipod 5 G6 Intro Kit (Gen 5) subcutaneous cartridge with controller) #1 ea 11/14/21 Novolog U-100 Insulin aspart 100 unit/mL subcutaneous solution (insulin aspart U-100) 100 unit continuous subcutaneous infusion .continuous #90 mL 05/29/22 bupropion HCl 100 mg tablet 100 mg PO BID depression 06/17/22 lorazepam 1 mg tablet 1 mg PO QHS anxiety 06/17/22 ramipril 10 mg capsule 10 mg PO BID blood pressures 06/17/22 Hospital Course Operations None Procedures None Summary of Care Provided Minutes Spent on Discharge: 37 Hospital Course: Mr. Moncada is a 27-year-old white male with a history of type 1 diabetes who is typically on insulin pump. He presented to the emergency department on 07/15/2022 as he was concerned he was going into DKA. He reported he ran out of pods for his glucometer on Friday and had ordered new pods. These pods were to be overnighted however they did not arrive. He lost his parents insurance when he turned 27 at the end of April and has transition to his own independent insurance however with the transition his medical supplies has not been smooth thus the delay on supply delivery. He reported on presentation that he was in his normal state of health until Friday when he ran out of his insulin pods. He picked up long-acting insulin from [employer] on Friday and was using that and intermittently using a sliding scale however he was feeling unwell and was concerned he might be going in DKA. The 24 hours prior to presentation he had vomiting and was not able to tolerate any p.o. He reported on admission he had not really had any water over the weekend. CBC at the time of presentation showed signs of hemoconcentration but was otherwise unremarkable. His metabolic profile showed a serum glucose of 285 with a sodium of 133, chloride 96, serum bicarb of 10, anion gap of 27, BUN of 20 and serum creatinine of 1.59. Serum osmolality was elevated and he had acetone in his blood. ABG showed a respiratory early compensated metabolic acidosis with a pH of 7.37/PCO2 of 23.1/PO2 of 104 and an oxygen saturation of 98% on room air. He was placed on an insulin drip and admitted to the ICU with the DKA protocol. By the a.m. of 07/16/2021 his DKA had resolved with resolution of his anion gap and marked improvement in his serum bicarbonate. His potassium was found to be low at 3.1 and he was replaced with oral potassium. He was transition to subcu insulin off the drip and an oral diet was started. Renal function had almost normalized. Hemoglobin A1c was obtained and found to be 8.5 at the time of admission. I discussed the case with his primary shower room attendant, Dr. Ontiveros, and she recommended that we discharge him and have him stop at her office on his way out from the hospital to obtain insulin samples so we could utilize these until his pods, in the mail. He has called the pod supplying company and they have indicated they are currently just verify having insurance. They have not even yet been shipped. I suspect it will be another few days until he has pods to reconnect to his insulin pump. He was discharged home in stable condition with complete resolution of his DKA and tolerating p.o. diet without any difficulty. I did discuss with him the need to follow-up with Dr. Ontiveros and he voiced understanding state he was up on the way out of the door. He is to follow-up with his primary care physician as needed. Discharge diagnoses: DKA-resolved Anion gap metabolic acidosis-resolved Hypokalemia KATI-resolved Pseudohyponatremia DM-1 Hypertension Hyperlipidemia History of alcohol abuse Anxiety Depression Physical Exam Const alert, oriented x3, no apparent distress, average body habitus and well nourished Constitutional Narrative: Young white male sitting up in bed eating a large breakfast, watching television, appears comfortable General Appearance: cooperative, comfortable, well kempt and well developed Orientation / Consciousness: awake, oriented to person, oriented to place and oriented to time Exam Limitations: no limitations HEENT normocephalic, head/scalp atraumatic, hearing grossly normal bilaterally and jayjay st oral mucous membranes HEENT Narrative: Mallampati 2, no thrush Eyes PERRL, EOMs intact bilaterally and conjunctivae normal Eyes Narrative: No scleral icterus Neck no lymphadenopathy and supple Neck Narrative: Trachea midline, no thyroid enlargement Resp normal respiratory effort, no retractions, no use of accessory muscles and clear to auscultation bilaterally Auscultation: Negative for crackles, rhonchi or wheezes Cardio regular rate, regular rhythm, S1 normal heart sound, S2 normal heart sound, no murmurs, no rub, no gallops and no clicks GI normal to inspection, nondistended, normoactive bowel sounds, soft to palpation and non-tender Extremity no clubbing, cyanosis or edema Extremity Narrative: 2+ pedal and radial pulses Skin no rashes or lesions noted, no wounds, skin turgor normal and no jaundice Neuro oriented x3, moves all extremities and no focal motor deficits Speech: speech normal Motor Exam: strength 5/5 throughout Psych affect normal Psych Narrative: Pleasant, appropriately interactive Weight / BMI Weight Weight: 83.7 kg Body Mass Index (BMI) 24.3 ABG / Lab / Microbiology Data Result Diagrams: 07/15/22 22:05 07/16/22 04:10 Laboratory: Laboratory Results - last 24 hr 07/15/22 22:05: WBC 11.9 H, RBC 5.34, Hgb 16.6 H, Hct 48.3, MCV 90.4, MCH 31.1, MCHC 34.4, RDW Std Deviation 42.1, RDW Coeff of Last 12.8, Plt Count 163, MPV 9.8, Immature Gran % (Auto) 0.400, Neut % (Auto) 77.3 H, Lymph % (Auto) 8.3 L, Addison % (Auto) 12.8 H, Eos % (Auto) 0.1, Baso % (Auto) 1.1 H, Absolute Neuts (auto) 9.2 H, Absolute Lymphs (auto) 0.99, Nucleated RBC % 0, Differential Comment SCANNED, Diff Path Review September07/15/22 22:05: Sodium 133 L, Potassium 3.8, Chloride 96 L, Carbon Dioxide 10.0 L, Anion Gap 27 H, BUN 20 H, Creatinine 1.59 H, Estim Creat Clear Calc 79.56, Est GFR (MDRD) Af Amer 68, Est GFR (MDRD) Non-Af 56 L, BUN/Creatinine Ratio 12.6, Glucose 285 H, Calcium 9.8 07/15/22 22:05: Acetone Level MODERATE H 07/15/22 22:05: Magnesium 2.2 07/15/22 22:05: Serum Osmolality 310 H 07/15/22 23:49: POC Glucose 219 H 07/16/22 01:00: Ethyl Alcohol < 3.0 07/16/22 01:00: Hemoglobin A1c 8.5 H 07/16/22 01:00: Sodium 137, Potassium 4.7, Chloride 103, Carbon Dioxide 15.0 L, Anion Gap 19 H, BUN 17, Creatinine 1.28, Estim Creat Clear Calc 98.83, Est GFR (MDRD) Af Amer 87, Est GFR (MDRD) Non-Af 72, BUN/Creatinine Ratio 13.3, Glucose 168 H, Calcium 8.5 07/16/22 01:03: POC Glucose 168 H 07/16/22 01:59: POC Glucose 119 H 07/16/22 03:01: POC Glucose 155 H 07/16/22 04:10: Sodium 134 L, Potassium 3.1 L, Chloride 102, Carbon Dioxide 19.0 L, Anion Gap 13, BUN 14, Creatinine 1.26, Estim Creat Clear Calc 100.40, Est GFR (MDRD) Af Amer 89, Est GFR (MDRD) Non-Af 73, BUN/Creatinine Ratio 11.1, Glucose 462 H*, Calcium 7.7 L, Total Bilirubin 0.60, AST 27, ALT 48, Alkaline Phosphatase 75, Total Protein 5.9 L, Albumin 3.1 L, Globulin 2.8, Album in/Globulin Ratio 1.1 07/16/22 04:15: POC Glucose 248 H 07/16/22 05:15: POC Glucose 114 H 07/16/22 06:00: POC Glucose 96 07/16/22 07:03: POC Glucose 84 07/16/22 08:20: POC Glucose 87 ABG: ABG 07/16/22 01:35 Specimen Type ART Sample Site R Radial pH 7.37 Bicarbonate Actual 13.3 L Total CO2 14 Base Excess -12 L O2 Saturation 98 O2 % 21 ABG pCO2 23.1 L ABG pO2 104 H Rambo Test Positive O2 Delivery Device Room Air D/C Instructions Discharge Diet: Low fat / Low cholesterol and 1800 Calorie Control Diet Discharge Activity: Return to Normal Activity Meaningful Use Info Meaningful Use Diagnoses (Choose all that apply): None applicable Discharge Plan Admission Admit Date/Time: 07/15/22 23:29 Primary Reason for Your Visit: Diabetic ketoacidosis Attending Provider: Osiris Murphy Consulting Providers: Teresa Cedillo Discharge Orders/Prescriptions Prescriptions: Continued (DME) Omnipod 5 G6 Intro Kit (Gen 5) Cartridge See Rx Instructions .Route Qty: 1 0RF Rx Instructions: As directed (DME) Omnipod 5 G6 Pods (Gen 5) Cartridge See Rx Instructions .Route Qty: 30 1RF Rx Instructions: 1 pod q 72 hours (DME) Dexcom G6 Sheetmetal Worker Misc See Rx Instructions .Route Qty: 1 0RF Rx Instructions: As directed (DME) Dexcom G6 Sensor Device See Rx Instructions .Route Qty: 9 1RF Rx Instructions: 1 sensor q 10 days (DME) Dexcom G6 Transmitter Device See Rx Instructions .Route Qty: 1 1RF Rx Instructions: 1 transmitter q 90 days cholecalciferol (vitamin D3) 1,250 mcg (50,000 unit) capsule 1,250 mcg PO QWEEK Qty: 24 0RF insulin aspart U-100 [Novolog U-100 Insulin aspart] 100 unit/mL solution 100 unit continuous subcutaneous infusion .continuous Qty: 90 1RF Insulin Aspart [Novolog] 100 UNIT/ML Ml See Protocol subcut UD Protocol: 6. Sliding Scale Insulin Custom Condition: mg/dl range Dose/Route: Number of Units Protocol Text: Custom Sliding Scale Label Comments: INSULIN PUMP- VARYING HOURLY BASAL RATE from 4201-8597 1.3 units 8313-8739 1.35 units 0815-9426 1.4 units Rx Instructions: PT HAS INSULIN PUMP atorvastatin 10 mg Tablet 10 mg PO QHS metoprolol succinate 25 mg Capsule,Sprinkle,Er 24hr 25 mg PO DAILY ramipril 10 mg capsule 10 mg PO BID bupropion HCl 100 mg tablet 100 mg PO BID Label Comments: TAKE ONE TABLET BY MOUTH TWICE A DAY lorazepam 1 mg tablet 1 mg PO QHS Referrals / Follow Up: Paul Ontiveros MD [Med Staff - Courtesy Staff] - See Referral Note (stop by office today after discharge to obtain subq insulin) NOT,DEFINED [Non-Staff] - Disposition Disposition (needs filled in before D/C Order can be placed): Home, Self Care Charges/Coding Visit Charges Inpatient E&M: 10617 Disch Hosp >30min
--- NOTE | 2022-07-16 11:45 | CASEMGMT ---
Social Work Consult: Substance Abuse Referral source: Self referral due to recent hospital stay under [facility] on 06/17. This social media project manager met with patient in room. Introduced self and social media project manager role. Patient agreeable to speak with this social media project manager. This social media project manager broached conversation of patient substance abuse history and inquired as to how things are going. Patient states to have had a few drinks since hospital stay but things are going well. This social media project manager inquired if patient is still following up with counseling in the community for substance abuse support, patient states I have not been. This social media project manager encouraged patient to follow up with counseling services as this will assist patient in being successful in maintaining sobriety, which is was patient voices to be the goal. Patient voiced understanding to the importance of establishing a support system for substance abuse/use. Patient verbal reports intention to set up counseling services. This social media project manager offered to set up appointment for patient, patient declined. Patient reports to have needed counseling resources in the community and declined this social media project manager providing any resources to patient. Patient reports to have transportation to home today. Patient denies concerns in the community. No further services requested or indicated. PLAN: Home Miki RUDOLPH, ESTRELLITA
--- NOTE | 2022-07-16 11:59 | CHAPLAIN ---
Type of Pastoral Visit _x__ Initial Visit ___ Follow-up Visit ___ On-call Visit ___ General Patient Visit ___ Spiritual Assessment ___ Family Conference ___ Bereavement ___ Rapid Response ___ Code Blue ___ Other (describe below) Pastoral Care Referral From _x__ Patient ___ Family ___ Nurse ___ Physician ___ Office Runner ___ Consulting Intern ___ Other (describe below) Sacrament/Intervention _x__ Active listening ___ Anointing ___ Jehovah'S Witness ___ Bereavement ___ Communion ___ Nicolasa exploration ___ ___ Life review _x__ Prayer ___ Reconciliation ___ Sacrament of Sick ___ Supportive presence ___ Wedding ___ Other (describe below) Pastoral Comments patient is getting dressed to leave hospital, stating that he is feeling much better; pt says only need a prayer if you want to do that; offer of support and a prayer is given; words of encouragement for future
[2022-07-16 14:54] LABS: Pathologist Review Reviewed
[2022-07-16 18:06] LABS: Bedside Glucose 123 mg/dL (74-106)
== END 2022-07-16 11:55 | disposition home or self-care (01) | DRG 638 ==
LOC: ED 23:06 → ICU 07-16 00:16
PROVIDERS: Admitting Provider Internal Medicine; Emergency Provider Emergency Medicine; Visit Provider Internal Medicine
DX: E10.10 Type 1 diabetes mellitus with ketoacidosis without coma (principal); N17.9 Acute kidney failure, unspecified; Z79.4 Long term (current) use of insulin; F10.20 Alcohol dependence, uncomplicated; F41.9 Anxiety disorder, unspecified; I10 Essential (primary) hypertension; E78.00 Pure hypercholesterolemia, unspecified; E87.6 Hypokalemia; Y90.0 Blood alcohol level of less than 20 mg/100 ml; F32.A Depression, unspecified; Z96.41 Presence of insulin pump (external) (internal); Z79.899 Other long term (current) drug therapy
CPT/HCPCS: 36600; 80048; 80053; 82009; 82077; 82803; 82962; 83036; 83735; 83930; 85025; 94762; 99283; J7030; A4216; J2405; J7799

== ENCOUNTER 2023-03-19 23:50 | Inpatient (IN) | payer OTHER, SELFPAY ==
[2023-03-19 23:51] VITALS: BP 161/129; PULSE 128; RESP 15; TEMP 36.3; O2SAT 96; BMI 24.9
[2023-03-20] VITALS (9 sets, daily range): BP systolic 128–168; BP diastolic 67–125; PULSE 85–94; RESP 16–18; TEMP 36.4–37; O2SAT 97–100; BMI 24.2
[2023-03-20 01:58] LABS: AST(SGOT) 38 U/L (15-37); Alanine Aminotransfer ALT/SGPT 69 U/L (16-61); Albumin, Serum 3.9 g/dL (3.2-5.0); Alkaline Phosphatase 83 U/L (45-117); Anion Gap 10 (5-15); BUN 8 mg/dL (7-18); BUN/Creat Ratio 7.6 RATIO (10-20); Calcium,Total 9.6 mg/dL (8.5-10.1); Chloride 105 mmol/L (98-107); Creatinine, Serum 1.05 mg/dL (0.70-1.30); EST Glomerular Filtration Rate 90 mL/min (>60); Est Glom Filt Rate - Afr Amer 109 mL/min (>60); Estimated Creatinine Clearance 120.48 ml/min; Globulin 3.8 g/dL (2.2-4.2); Glucose 372 mg/dL (74-106); Potassium 3.9 mmol/L (3.5-5.1); Protein, Total 7.7 g/dL (6.4-8.2); Sodium Level 142 mmol/L (136-145)
--- NOTE | 2023-03-20 03:01 | EDS_ITS ---
HPI History of Present Illness Chief Complaint: Substance Abuse Detail of Chief Complaint: Request for alcohol detox Informant: patient Narrative Narrative: Patient presents requesting help with alcohol detox. He states has been drinking for quite some time and has been through a detox program previously. He states he will drink anything he can get his hands on. His last drink was at 8 PM last evening. He denies having withdrawal symptoms at this time. He does report having 1 seizure in the past that was attributed to alcohol withdrawal. [facility] Medical History Alcohol abuse Alcohol dependence Anxiety Depression Diabetes mellitus type 1 High cholesterol History of diabetes mellitus HTN (hypertension) Presence of insulin pump Vitamin D deficiency Home Medications Insulin Aspart [Novolog] See Protocol subcut UD dm 12/29/14 [History Last Taken 09/25/21] atorvastatin 10 mg tablet 10 mg PO QHS cholesterol lowering 09/25/21 [History Last Taken 09/21/21] metoprolol succinate 25 mg capsule sprinkle, ext. release 24 hr 25 mg PO DAILY blood pressure 09/25/21 [History Last Taken 09/23/21] Dexcom G6 Food Technician (blood-glucose meter,continuous) #1 ea 11/14/21 [Rx Last Taken Unknown] Dexcom G6 Sensor (blood-glucose sensor) #9 ea 11/14/21 [Rx Last Taken Unknown] Dexcom G6 Transmitter (blood-glucose transmitter) #1 ea 11/14/21 [Rx Last Taken Unknown] cholecalciferol (vitamin D3) 1,250 mcg (50,000 unit) capsule 1,250 mcg PO QWEEK #24 caps 11/14/21 [Rx Last Taken Unknown] insulin pump cart,automated,BT (Omnipod 5 G6 Pods (Gen 5) subcutaneous cartridge) #30 ea 11/14/21 [Rx Last Taken Unknown] insulin pump cartridge,automated dose,BT with controller subcutaneous (Omnipod 5 G6 Intro Kit (Gen 5) subcutaneous cartridge with controller) #1 ea 11/14/21 [Rx Last Taken Unknown] Novolog U-100 Insulin aspart 100 unit/mL subcutaneous solution (insulin aspart U-100) 100 unit continuous subcutaneous infusion .continuous #90 mL 05/29/22 [Rx Last Taken Unknown] bupropion HCl 100 mg tablet 100 mg PO BID depression 06/17/22 [History Last Taken Unknown] lorazepam 1 mg tablet 1 mg PO QHS anxiety 06/17/22 [History Last Taken Unknown] ramipril 10 mg capsule 10 mg PO BID blood pressures 06/17/22 [History Last Taken Unknown] Allergy/AdvReac Type Severity Reaction Status Date / Time No Known Allergies Allergy Verified 03/19/23 23:54 Family History Mother Hypertension Surgical History No history of previous surgery Social History household members: none housing: apartment Smoking Status: Never smoker alcohol intake: current alcohol intake frequency: 3 or more drinks per day Alcohol type: beer and hard liquor substance use type: does not use ROS ROS ED Constitutional Constitutional ED: Denies chills or fever(s) Eyes Eyes: Denies discharge from eye(s) ENT ENT ED: Denies discharge from eye(s), rhinorrhea or sore throat Cardiovascular Cardiovascular: Denies chest pain or palpitations Respiratory/Chest Respiratory/Chest: Denies cough or dyspnea Gastrointestinal Gastrointestinal: Denies abdominal pain, nausea or vomiting Genitourinary Genitourinary ED: Denies dysuria Musculoskeletal Musculoskeletal: Denies back pain or extremity pain Integumentary Denies Abrasions or rash Neurologic Neurologic: Denies headache(s) or weakness Psychiatric Psychiatric: Denies anxiety or depression Allergic/Immunologic Allergic/Immunologic ED: Denies lip swelling or urticaria EXAM Physical Exam Const Vital Signs: 03/19/23 23:51 03/20/23 02:30 Temperature 97.4 F L Temperature Source Temporal Pulse Rate 128 H Respiratory Rate 15 16 Blood Pressure 161/129 H Blood Pressure Mean 139 Pulse Ox 96 Oxygen Delivery Method Room Air Room Air Positive well nourished and well developed General Appearance ED: well developed HEENT Reports moist mucous membranes Eyes EOMs intact bilaterally Neck no lymphadenopathy Chest Wall inspection of chest normal and palpation of chest normal Resp normal respiratory effort and clear to auscultation bilaterally Cardio regular rate and regular rhythm GI soft to palpation Neuro oriented x3 and no sensory deficits noted Sensorium / Orientation: alert Psych mental status grossly normal MDM MDM MDM Narrative Medical decision making narrative: Lab work for ED addiction medicine obtained. Patient agrees to the detox program. Lab Data Attestation: I reviewed the patient's lab results. Labs: Laboratory Results - last 24 hr 03/20/23 01:20 Sodium 142 Potassium 3.9 Chloride 105 Carbon Dioxide 27.0 Anion Gap 10 BUN 8 Creatinine 1.05 Estim Creat Clear Calc 120.48 Est GFR (MDRD) Af Amer 109 Est GFR (MDRD) Non-Af 90 BUN/Creatinine Ratio 7.6 L Glucose 372 H Calcium 9.6 Total Bilirubin 0.20 AST 38 H ALT 69 H Alkaline Phosphatase 83 Total Protein 7.7 Albumin 3.9 Globulin 3.8 Albumin/Globulin Ratio 1.0 Ethyl Alcohol 353.0 H* Treatment and Re-Evaluation Narrative: Chemistry studies are unremarkable with normal creatinine. His glucose is 372. LFTs significant for an AST of 38 and an ALT of 69. His EtOH is 353. Urine tox screen has been ordered but patient has not yet provided a sample. He denies any drug use other than alcohol. I will speak with hospitalist regarding admission. Discharge Plan Triage Chief Complaint: Substance Abuse ED Provider: Dafne Cornell Dx/Rx/DC Orders Clinical Impression: Desire for detoxification, ETOH abuse Prescriptions: No Action (DME) Omnipod 5 G6 Intro Kit (Gen 5) Cartridge See Rx Instructions .Route Qty: 1 0RF Rx Instructions: As directed (DME) Omnipod 5 G6 Pods (Gen 5) Cartridge See Rx Instructions .Route Qty: 30 1RF Rx Instructions: 1 pod q 72 hours (DME) Dexcom G6 Food Technician Misc See Rx Instructions .Route Qty: 1 0RF Rx Instructions: As directed (DME) Dexcom G6 Sensor Device See Rx Instructions .Route Qty: 9 1RF Rx Instructions: 1 sensor q 10 days (DME) Dexcom G6 Transmitter Device See Rx Instructions .Route Qty: 1 1RF Rx Instructions: 1 transmitter q 90 days cholecalciferol (vitamin D3) 1,250 mcg (50,000 unit) capsule 1,250 mcg PO QWEEK Qty: 24 0RF insulin aspart U-100 [Novolog U-100 Insulin aspart] 100 unit/mL solution 100 unit continuous subcutaneous infusion .continuous Qty: 90 1RF Insulin Aspart [Novolog] 100 UNIT/ML Ml See Protocol subcut UD Protocol: 6. Sliding Scale Insulin Custom Condition: mg/dl range Dose/Route: Number of Units Protocol Text: Custom Sliding Scale Patient Comments: INSULIN PUMP- VARYING HOURLY BASAL RATE from 3591-9347 1.3 units [id number] 1.35 units 7330-2629 1.4 units Rx Instructions: PT HAS INSULIN PUMP atorvastatin 10 mg Tablet 10 mg PO QHS metoprolol succinate 25 mg Capsule,Sprinkle,Er 24hr 25 mg PO DAILY ramipril 10 mg capsule 10 mg PO BID bupropion HCl 100 mg tablet 100 mg PO BID Patient Comments: TAKE ONE TABLET BY MOUTH TWICE A DAY lorazepam 1 mg tablet 1 mg PO QHS Primary Care Provider: DEXTER DANIEL Referrals: DEXTER DANIEL [Other] Disposition Disposition: Acute Care Hospital [facility]
--- NOTE | 2023-03-20 04:24 | PCM.HP.STD ---
HPI - General General Date of Admission: 03/20/23 Date of Service: 03/20/23 Chief Complaint: Desire for alcohol detoxification HPI Narrative JORGE HOLLIS, is a 27 M with a significant history of hypertension; diabetes mellitus on insulin pump; and alcoholism who presents to the emergency department for alcohol detoxification. Of note patient reports that he has been drinking for about 6 years. He reports drinking a lot each day. He reports drinking any alcoholic drink he can lay hands on ; and this includes beer, whisky and any other hard liquor. Last time he drank was about 2 hours prior to presentation. At time of evaluation he was not having any withdrawal symptoms but he is sure he will be withdrawing later on. He reports a one history of seizures. He is unsure whether his previous one time seizures was from alcohol withdrawal or not. FORMERLY [facility] Medical History Alcohol abuse Alcohol dependence Anxiety Depression Diabetes mellitus type 1 High cholesterol History of diabetes mellitus HTN (hypertension) Presence of insulin pump Vitamin D deficiency Home Medications Insulin Aspart [Novolog] See Protocol subcut UD dm 12/29/14 [History Last Taken 09/25/21] atorvastatin 10 mg tablet 10 mg PO QHS cholesterol lowering 09/25/21 [History Last Taken 09/21/21] metoprolol succinate 25 mg capsule sprinkle, ext. release 24 hr 25 mg PO DAILY blood pressure 09/25/21 [History Last Taken 09/23/21] Dexcom G6 Dental Manager (blood-glucose meter,continuous) #1 ea 11/14/21 [Rx Last Taken Unknown] Dexcom G6 Sensor (blood-glucose sensor) #9 ea 11/14/21 [Rx Last Taken Unknown] Dexcom G6 Transmitter (blood-glucose transmitter) #1 ea 11/14/21 [Rx Last Taken Unknown] cholecalciferol (vitamin D3) 1,250 mcg (50,000 unit) capsule 1,250 mcg PO QWEEK #24 caps 11/14/21 [Rx Last Taken Unknown] insulin pump cart,automated,BT (Omnipod 5 G6 Pods (Gen 5) subcutaneous cartridge) #30 ea 11/14/21 [Rx Last Taken Unknown] insulin pump cartridge,automated dose,BT with controller subcutaneous (Omnipod 5 G6 Intro Kit (Gen 5) subcutaneous cartridge with controller) #1 ea 11/14/21 [Rx Last Taken Unknown] Novolog U-100 Insulin aspart 100 unit/mL subcutaneous solution (insulin aspart U-100) 100 unit continuous subcutaneous infusion .continuous #90 mL 05/29/22 [Rx Last Taken Unknown] bupropion HCl 100 mg tablet 100 mg PO BID depression 06/17/22 [History Last Taken Unknown] lorazepam 1 mg tablet 1 mg PO QHS anxiety 06/17/22 [History Last Taken Unknown] ramipril 10 mg capsule 10 mg PO BID blood pressures 06/17/22 [History Last Taken Unknown] Allergy/AdvReac Type Severity Reaction Status Date / Time No Known Allergies Allergy Verified 03/19/23 23:54 Family History Mother Hypertension Surgical History No history of previous surgery Social History household members: none housing: apartment Smoking Status: Never smoker alcohol intake: current alcohol intake frequency: 3 or more drinks per day Alcohol type: beer and hard liquor substance use type: does not use ROS ROS Narrative Pertinent positives and pertinent negatives as noted in HPI. All other systems were reviewed and are negative Vital Signs Vital Signs Vital Signs: 03/19/23 23:51 03/20/23 02:30 Temperature 97.4 F L Temperature Source Temporal Pulse Rate 128 H Respiratory Rate 15 16 Blood Pressure 161/129 H Blood Pressure Mean 139 Pulse Ox 96 Oxygen Delivery Method Room Air Room Air Weight Weight: 85.729 kg Body Mass Index (BMI) 24.9 Physical Exam Narrative Physical exam: General: Well-nourished, well-developed. Head: Normocephalic, atraumatic, no tenderness Eyes: Vision is grossly intact. EOMI ENT, no trauma, moist mucous membranes, no rhinorrhea Neck: Nontender, No thyromegaly. CVS: Regular rate and rhythm. S1-S2 present. No murmur, gallop or rub. Respiratory : clear to auscultation bilaterally, chest wall nontender Abdomen: Soft, nontender, nondistended, normal bowel sounds, no masses : Deferred Back: Nontender, no CVA tenderness, no midline spinal tenderness, deformities, step-offs Extremities: Nontender full range of motion, no trauma Skin: Normal color, no trauma, abrasions Neuro: Alert, oriented, cranial nerves II through XII grossly intact. Psychiatry: Normal mood. Normal affect. Not depressed. Not anxious. Results Lab / Micro Data 03/20/23 01:20 Labs: Laboratory Results - last 24 hr 03/20/23 01:20: Sodium 142, Potassium 3.9, Chloride 105, Carbon Dioxide 27.0, Anion Gap 10, BUN 8, Creatinine 1.05, Estim Creat Clear Calc 120.48, Est GFR (MDRD) Af Amer 109, Est GFR (MDRD) Non-Af 90, BUN/Creatinine Ratio 7.6 L, Glucose 372 H, Calcium 9.6, Total Bilirubin 0.20, AST 38 H, ALT 69 H, Alkaline Phosphatase 83, Total Protein 7.7, Albumin 3.9, Globulin 3.8, Albumin/Globulin Ratio 1.0, Ethyl Alcohol 353.0 H* Assessment & Plan Assessment/Plan (1) Desire for detoxification: (2) ETOH abuse: (3) Diabetes mellitus type 1: QUALIFIERS: Diabetes mellitus complication status: with hypoglycemia Diabetes mellitus complication detail: without coma Qualified Code(s): E10.649 - Type 1 diabetes mellitus with hypoglycemia without coma (4) Presence of insulin pump: PLAN: Plan Alcohol dependence and desire for detoxification Emergency department labs reviewed showed ethanol level of 353 on presentation. Patient be started on phenobarbital and other adjunctive medications: Gabapentin as needed; dicyclomine as needed; Vistaril as needed; Imodium as needed; trazodone as needed; Zofran as needed; scheduled thiamine; and schedule folic acid. Monitor CIWA score Diabetes mellitus With history of DKA. Blood glucose was not within goal. Home insulin pump and checks continued. Hypertension Blood pressure is not within goal Home blood pressure medication continued. Trend blood pressure and adjust blood pressure medications. Elevated liver enzymes Chronic Trend CMP DVT prophylaxis Low risk Encourage to ambulate Time spent in the patient's overall evaluation,decision-making process, review of diagnostic data, adjustment of management, discussion with other providers, nursing and ancillary staff involved in patient's care documentation, 45 minutes. Charges/Coding Visit Charges Inpatient E&M: 00055 Init Hosp L2
[2023-03-20 05:17] LABS: Amphetamine Urine VISTA NEGATIVE (<1000 ng/mL); Barbiturate Urine VISTA NEGATIVE (< 200 ng/mL); Benzodiazepine Urine VISTA NEGATIVE (< 200 ng/mL); Cocaine Urine VISTA NEGATIVE (< 300 ng/mL); Ecstacy Urine VISTA NEGATIVE (< 500 ng/mL); Methadone Urine VISTA NEGATIVE (< 300 ng/mL); PCP Urine VISTA NEGATIVE (< 25 ng/mL); THC Urine VISTA NEGATIVE (< 50 ng/mL); Vista UDS pH Range 5
[2023-03-20 11:46] LABS: Bedside Glucose 88 mg/dL (74-106)
[2023-03-20] MEDS: Folic Acid 1 MG Tablet PO (11:59)
[2023-03-20] MEDS: Phenobarbital 32.4 MG Tablet 64.8 MG PO ×4 (11:59→22:51)
[2023-03-20] MEDS: Metoprolol(XL)Succ 25 MG Tablet PO (12:00)
--- NOTE | 2023-03-20 12:02 | NURSING ---
Meds verified with MARIOLA Dewitt. scanner in room not working.
[2023-03-20] MEDS: Insulin Basal Pump SC (14:42)
--- NOTE | 2023-03-20 16:52 | NURSING ---
Blood glucose was 40 at this time via fingerstick. Paitent was given 4 oz of regular pop. Will recheck per protocol.
--- NOTE | 2023-03-20 16:55 | NURSING ---
Patient was instructed to turn off insulin pump for now.
--- NOTE | 2023-03-20 17:05 | NURSING ---
Patient's blood glucose is 69 at this time. Dinner just arrived. Will recheck after dinner.
[2023-03-20 17:25] LABS: Bedside Glucose 69 mg/dL (74-106)
[2023-03-20 17:25] LABS: Bedside Glucose 40 mg/dL (74-106)
--- NOTE | 2023-03-20 17:56 | NURSING ---
Patient removed insulin pump from left arm. Report was called to Dhara on [facility].
[2023-03-20 18:07] LABS: Bedside Glucose 100 mg/dL (74-106)
[2023-03-20 21:13] LABS: Bedside Glucose 371 mg/dL (74-106)
[2023-03-20] MEDS: Insulin Lispro 100 UNIT/ML INSULN.PEN SC (21:26)
[2023-03-20] MEDS: Ondansetron 8 MG Tablet PO (21:31)
[2023-03-20] MEDS: Ondansetron 4 MG/2 ML Vial IV (21:57)
[2023-03-20] MEDS: 0.9% Saline Lock 10 ML Syringe IV (21:57)
[2023-03-20] MEDS: Atorvastatin Calcium 10 MG Tablet PO (22:51)
[2023-03-20] MEDS: Ramipril 10 MG Capsule PO (22:51)
[2023-03-21] MEDS: Phenobarbital 32.4 MG Tablet 64.8 MG PO ×6 (03:12→20:53)
[2023-03-21 03:13] VITALS: BP 127/89; PULSE 72; RESP 18; TEMP 36.6; O2SAT 98
[2023-03-21] MEDS: Insulin Lispro 100 UNIT/ML INSULN.PEN SC ×4 (05:32→20:56)
[2023-03-21 06:48] LABS: Bedside Glucose 276 mg/dL (74-106)
[2023-03-21 07:09] LABS: ALB/GLOB Ratio 0.8 RATIO (0.9-2.4); AST(SGOT) 36 U/L (15-37); Alanine Aminotransfer ALT/SGPT 59 U/L (16-61); Albumin, Serum 3.4 g/dL (3.2-5.0); Alkaline Phosphatase 76 U/L (45-117); Anion Gap 11 (5-15); BUN 16 mg/dL (7-18); BUN/Creat Ratio 16.9 RATIO (10-20); Chloride 98 mmol/L (98-107); Creatinine, Serum 0.95 mg/dL (0.70-1.30); EST Glomerular Filtration Rate 102 mL/min (>60); Est Glom Filt Rate - Afr Amer 123 mL/min (>60); Estimated Creatinine Clearance 133.17 ml/min; Glucose 263 mg/dL (74-106); Potassium 4.4 mmol/L (3.5-5.1); Protein, Total 7.4 g/dL (6.4-8.2); Sodium Level 133 mmol/L (136-145)
[2023-03-21 07:57] VITALS: BP 132/96; PULSE 74; RESP 16; TEMP 36.9; O2SAT 97
[2023-03-21] MEDS: Folic Acid 1 MG Tablet PO (08:05)
[2023-03-21] MEDS: Thiamine Hydrochloride 100 MG Tablet PO (08:05)
[2023-03-21 08:20] VITALS: O2SAT 98
--- NOTE | 2023-03-21 09:30 | PN.HOSP_ITS ---
Subjective Subjective Resting comfortably, had fairly significant hypoglycemia yesterday so his insulin pump was held. CIWA score of 1 Objective Data Objective Data Vital Signs: Vital Signs Temp Pulse Resp BP Pulse Ox O2 Del Method 98.5 F 74 16 132/96 H 98 Room Air 03/21/23 07:57 03/21/23 07:57 03/21/23 07:57 03/21/23 07:57 03/21/23 08:20 03/21/23 08:20 Oxygen Delivery Method Room Air Weight: 183 lb 10.321 oz Body Mass Index (BMI) 24.2 Intake & Output: Intake and Output for Last 24 Hours 03/20/23 03/21/23 03/22/23 03:59 03:59 03:59 Intake Total 1100 / 1100 Balance 1100 / 1100 Lab / Micro Data 03/21/23 06:10 Labs: Laboratory Results - last 24 hr 03/20/23 11:21: POC Glucose 88 03/20/23 16:47: POC Glucose 40 L* 03/20/23 17:03: POC Glucose 69 L 03/20/23 17:40: POC Glucose 100 03/20/23 20:56: POC Glucose 371 H 03/21/23 05:31: POC Glucose 276 H 03/21/23 06:10: Sodium 133 L, Potassium 4.4, Chloride 98, Carbon Dioxide 24.0, Anion Gap 11, BUN 16, Creatinine 0.95, Estim Creat Clear Calc 133.17, Est GFR (MDRD) Af Amer 123, Est GFR (MDRD) Non-Af 102, BUN/Creatinine Ratio 16.9, Glucose 263 H, Calcium 9.0, Total Bilirubin 1.30 H, AST 36, ALT 59, Alkaline Phosphatase 76, Total Protein 7.4, Albumin 3.4, Globulin 4.0, Albumin/Globulin Ratio 0.8 L Physical Exam Narrative General: Alert, Oriented x3, Cooperative, No apparent distress HEENT: Atraumatic, PERRLA, EOMI, Normocephalic Oral: Moist Mucosa Neck: Supple, No JVD Lungs: Clear to auscultation, Normal air movement, No rhonchi, No wheeze, No rales Cardiovascular: Regular rate, Regular Rhythm, Normal S1, Normal S2, No murmurs Abdomen: Soft, Non Tender, Non-Distended, No Hepato-splenomegaly Extremities: No edema, Capillary Refill Less than 3 Seconds Skin: No rashes, No breakdown Musculoskeletal: No Tenderness to Palpation of Joints or Extremities Neurological: Cranial nerves II-XII grossly intact, Motor Exam 5/5 strength th roughout, Sensory exam intact to light touch and pain Psych/Mental Status: Normal Affect, Appropriate Assessment & Plan Assessment/Plan (1) Desire for detoxification: (2) ETOH abuse: (3) Diabetes mellitus type 1: QUALIFIERS: Diabetes mellitus complication status: with hy poglycemia Diabetes mellitus complication detail: without coma Qualified Code(s): E10.649 - Type 1 diabetes mellitus with hypoglycemia without coma (4) Presence of insulin pump: PLAN: Plan 1. Alcohol withdrawal/elevated LFT's/anxiety/depression ? Continue with the alcohol withdrawal protocol ? We will have him follow-up with 180 to develop a discharge plan ? LFTs have normalized, likely related to alcohol ? Continue with his home mental health medications 2. DM 1 ? He is supposed to be wearing insulin pump however this caused him to be in significant hyperglycemia likely secondary to the fact that he is on a carb controlled diet which she likely does not follow at home ? Will place him on long-acting insulin with sliding scale insulin ? Accu-Cheks ACHS ? We will monitor and make adjustments as necessary 3. HTN/HLD ? Blood pressure are stable ? Continue with his home blood pressure medications will monitor and make adjustments ? Continue with his Lipitor DVT: Ambulation Charges/Coding Visit Charges Inpatient E&M: 34631 Subs Hosp L2
[2023-03-21] MEDS: Ramipril 10 MG Capsule PO ×2 (10:00→20:54)
[2023-03-21] MEDS: Insulin Glargine-YFGN 100 UNIT/ML Pen 10 UNIT SC ×2 (10:01→20:57)
[2023-03-21 10:02] VITALS: PULSE 74
[2023-03-21] MEDS: Metoprolol(XL)Succ 25 MG Tablet PO (10:02)
[2023-03-21 12:29] LABS: Bedside Glucose 313 mg/dL (74-106)
--- NOTE | 2023-03-21 12:53 | ADDICTION ---
This typewriter mechanic met with PT to conduct ASAM, MSE, AUDIT, DUDIT assessments and to plan for d/c. PT A+Ox4 and participated actively. All assessments completed and placed in PT's chart. Pt would like the Vivitrol shot upon discharge. He has met the requirements based on the assessment. He will follow up with his PCP for continued care. He is also going to follow up with his therapist at [facility] for ALEN counseling.
[2023-03-21 13:59] VITALS: BP 124/86; PULSE 70; RESP 16; TEMP 37.1; O2SAT 99
[2023-03-21 16:50] LABS: Bedside Glucose 183 mg/dL (74-106)
[2023-03-21 20:51] VITALS: BP 137/86; PULSE 57; RESP 18; TEMP 36.7; O2SAT 99
[2023-03-21] MEDS: Atorvastatin Calcium 10 MG Tablet PO (20:54)
[2023-03-22 00:58] LABS: Bedside Glucose 265 mg/dL (74-106)
[2023-03-22] MEDS: Phenobarbital 32.4 MG Tablet 64.8 MG PO ×6 (03:09→23:20)
[2023-03-22 03:10] VITALS: BP 129/78; PULSE 59; RESP 18; TEMP 36.4; O2SAT 97
[2023-03-22] MEDS: Insulin Lispro 100 UNIT/ML INSULN.PEN SC ×4 (06:47→21:53)
[2023-03-22 07:08] LABS: Bedside Glucose 232 mg/dL (74-106)
[2023-03-22] MEDS: Folic Acid 1 MG Tablet PO (08:27)
[2023-03-22] MEDS: Thiamine Hydrochloride 100 MG Tablet PO (08:28)
[2023-03-22 09:04] VITALS: BP 123/83; PULSE 71; RESP 18; TEMP 37; O2SAT 98
--- NOTE | 2023-03-22 10:09 | PCM.PN.HOSP ---
Subjective Subjective Well, no issues overnight. CIWA score 0 Objective Data Objective Data Vital Signs: Vital Signs Temp Pulse Resp BP Pulse Ox O2 Del Method 98.6 F 71 18 123/83 H 98 Room Air 03/22/23 09:04 03/22/23 09:04 03/22/23 09:04 03/22/23 09:04 03/22/23 09:04 03/22/23 09:05 Oxygen Delivery Method Room Air Weight: 183 lb 10.321 oz Body Mass Index (BMI) 24.2 Intake & Output: Intake and Output for Last 24 Hours 03/21/23 03/22/23 03/23/23 03:59 03:59 03:59 Intake Total 1100 / 1100 Balance 1100 / 1100 Lab / Micro Data 03/21/23 06:10 Labs: Laboratory Results - last 24 hr 03/21/23 11:38: POC Glucose 313 H 03/21/23 16:20: POC Glucose 183 H 03/21/23 20:56: POC Glucose 265 H 03/22/23 06:46: POC Glucose 232 H Physical Exam Narrative General: Alert, Oriented x3, Cooperative, No apparent distress HEENT: Atraumatic, PERRLA, EOMI, Normocephalic Oral: Moist Mucosa Neck: Supple, No JVD Lungs: Clear to auscultation, Normal air movement, No rhonchi, No wheeze, No rales Cardiovascular: Regular rate, Regular Rhythm, Normal S1, Normal S2, No murmurs Abdomen: Soft, Non Tender, Non-Distended, No Hepato-splenomegaly Extremities: No edema, Capillary Refill Less than 3 Seconds Skin: No rashes, No breakdown Musculoskeletal: No Tenderness to Palpation of Joints or Extremities Neurological: Cranial nerves II-XII grossly intact, Motor Exam 5/5 strength throughout, Sensory exam intact to light touch and pain Psych/Mental Status: Normal Affect, Appropriate Assessment & Plan Assessment/Plan (1) Desire for detoxification: (2) ETOH abuse: (3) Diabetes mellitus type 1: QUALIFIERS: Diabetes mellitus complication status: with hypoglycemia Diabetes mellitus complication detail: without coma Qualified Code(s): E10.649 - Type 1 diabetes mellitus with hypoglycemia without coma (4) Presence of insulin pump: PLAN: Plan 1. Alcohol withdrawal/elevated LFT's/anxiety/depression ? Continue with the alcohol withdrawal protocol ? We will have him follow-up with 180 to develop a discharge plan ? LFTs have normalized, likely related to alcohol ? Continue with his home mental health medications ? We will plan for Vivitrol on discharge 2. DM 1 ? He is supposed to be wearing insulin pump however this caused him to be in significant hyperglycemia likely secondary to the fact that he is on a carb controlled diet which she likely does not follow at home ? Will place him on long-acting insulin with sliding scale insulin ? Accu-Cheks ACHS ? We will monitor and make adjustments as necessary 3. HTN/HLD ? Blood pressure are stable ? Continue with his home blood pressure medications will monitor and make adjustments ? Continue with his Lipitor DVT: Ambulation Charges/Coding Visit Charges Inpatient E&M: 93102 Subs Hosp L2
[2023-03-22] MEDS: Insulin Glargine-YFGN 100 UNIT/ML Pen 15 UNIT SC ×2 (10:23→21:55)
[2023-03-22] MEDS: buPROPion 100 MG Tablet PO (10:23)
[2023-03-22 10:24] VITALS: PULSE 71
[2023-03-22] MEDS: Metoprolol(XL)Succ 25 MG Tablet PO (10:24)
[2023-03-22] MEDS: Ramipril 10 MG Capsule PO ×2 (10:24→21:53)
[2023-03-22 11:34] LABS: Bedside Glucose 219 mg/dL (74-106)
[2023-03-22 16:23] VITALS: BP 112/71; PULSE 70; RESP 18; TEMP 36.8; O2SAT 98
[2023-03-22 16:23] LABS: Bedside Glucose 264 mg/dL (74-106)
[2023-03-22 21:49] VITALS: BP 113/90; PULSE 69; RESP 18; TEMP 36.6; O2SAT 97
[2023-03-22] MEDS: Atorvastatin Calcium 10 MG Tablet PO (21:57)
[2023-03-22 22:19] LABS: Bedside Glucose 320 mg/dL (74-106)
[2023-03-23 05:18] VITALS: BP 117/83; PULSE 62; RESP 18; TEMP 36.5; O2SAT 96
[2023-03-23] MEDS: Phenobarbital 32.4 MG Tablet 64.8 MG PO (05:23)
[2023-03-23 06:09] LABS: Bedside Glucose 186 mg/dL (74-106)
[2023-03-23 08:00] VITALS: BP 115/68; PULSE 66; RESP 16; TEMP 36.3; O2SAT 100
[2023-03-23] MEDS: Insulin Lispro 100 UNIT/ML INSULN.PEN SC (08:46)
[2023-03-23] MEDS: Folic Acid 1 MG Tablet PO (08:47)
[2023-03-23] MEDS: Thiamine Hydrochloride 100 MG Tablet PO (08:47)
[2023-03-23] MEDS: Ramipril 10 MG Capsule PO (08:48)
[2023-03-23 08:54] VITALS: PULSE 66
[2023-03-23] MEDS: Metoprolol(XL)Succ 25 MG Tablet PO (08:54)
--- NOTE | 2023-03-23 09:13 | DCINST_ITS ---
Discharge Instructions Diet Discharge Diet: Carb Control Diet Activity Discharge Activity: Return to Normal Activity Dressing / Incision Call your doctor if you observe: Fever of 101 or Higher, Shortness of breath, Dizziness, Fainting spells, Swelling in the ankles, Chest pain and Increased palpitations (irregular heartbeat) Follow Up Care Test Results: Test results from this visit will be discussed in further detail at your follow- up appointment, if applicable. Discharge Plan Admission Admit Date/Time: 03/20/23 04:25 Attending Provider: Colten Crystal Primary Care Provider: DEXTER DANIEL Consulting Providers: William Bowers Discharge Orders/Prescriptions Prescriptions: Continued (DME) Omnipod 5 G6 Intro Kit (Gen 5) Cartridge See Rx Instructions .Route Qty: 1 0RF Rx Instructions: As directed (DME) Omnipod 5 G6 Pods (Gen 5) Cartridge See Rx Instructions .Route Qty: 30 1RF Rx Instructions: 1 pod q 72 hours (DME) Dexcom G6 Learning And Development Manager Misc See Rx Instructions .Route Qty: 1 0RF Rx Instructions: As directed (DME) Dexcom G6 Sensor Device See Rx Instructions .Route Qty: 9 1RF Rx Instructions: 1 sensor q 10 days (DME) Dexcom G6 Transmitter Device See Rx Instructions .Route Qty: 1 1RF Rx Instructions: 1 transmitter q 90 days cholecalciferol (vitamin D3) 1,250 mcg (50,000 unit) capsule 1,250 mcg PO QWEEK Qty: 24 0RF insulin aspart U-100 [Novolog U-100 Insulin aspart] 100 unit/mL solution 100 unit continuous subcutaneous infusion .continuous Qty: 90 1RF Insulin Aspart [Novolog] 100 UNIT/ML Ml See Protocol subcut UD Protocol: 6. Sliding Scale Insulin Custom Condition: mg/dl range Dose/Route: Number of Units Protocol Text: Custom Sliding Scale Patient Comments: INSULIN PUMP- VARYING HOURLY BASAL RATE from 7971-3414 1.3 units 2978-6100 1.35 units 1474-7289 1.4 units Rx Instructions: PT HAS INSULIN PUMP atorvastatin 10 mg Tablet 10 mg PO QHS metoprolol succinate 25 mg Capsule,Sprinkle,Er 24hr 25 mg PO DAILY ramipril 10 mg capsule 10 mg PO BID bupropion HCl 100 mg tablet 100 mg PO BID Hold Instructions: pt states he hasn't been taking Patient Comments: TAKE ONE TABLET BY MOUTH TWICE A DAY lorazepam 1 mg tablet 1 mg PO QHS Referrals / Follow Up: DEXTER DANIEL [Other] DEXTER DANIEL [Other] Disposition Disposition (needs filled in before D/C Order can be placed): Home, Self Care
--- NOTE | 2023-03-23 09:16 | PCM.DC.SUM ---
Providers Date of Admission: 03/20/23 Primary Care Physician: DEXTER DANIEL Reason For Visit: DESIRE FOR DETOXIFICATION Diagnosis Discharge Diagnosis (1) Desire for detoxification: Status: Acute (2) ETOH abuse: Status: Acute Code(s): F10.10 - Alcohol abuse, uncomplicated (3) Diabetes mellitus type 1: Status: Acute Code(s): E10.9 - Type 1 diabetes mellitus without complications Qualifiers: Diabetes mellitus complication status: with hypoglycemia Diabetes mellitus complication detail: without coma Qualified Code(s): E10.649 - Type 1 diabetes mellitus with hypoglycemia without coma (4) Presence of insulin pump: Status: Acute Code(s): Z96.41 - Presence of insulin pump (external) (internal) Plan 1. Alcohol withdrawal/elevated LFT's/anxiety/depression ? Continue with the alcohol withdrawal protocol ? We will have him follow-up with 180 to develop a discharge plan ? LFTs have normalized, likely related to alcohol ? Continue with his home mental health medications ? We will plan for Vivitrol on discharge 2. DM 1 ? He is supposed to be wearing insulin pump however this caused him to be in significant hyperglycemia likely secondary to the fact that he is on a carb controlled diet which she likely does not follow at home ? Will place him on long-acting insulin with sliding scale insulin ? Accu-Cheks ACHS ? We will monitor and make adjustments as necessary 3. HTN/HLD ? Blood pressure are stable ? Continue with his home blood pressure medications will monitor and make adjustments ? Continue with his Lipitor DVT: Ambulation Medications at Discharge Home Medications Insulin Aspart [Novolog] See Protocol subcut UD dm 12/29/14 atorvastatin 10 mg tablet 10 mg PO QHS cholesterol lowering 09/25/21 metoprolol succinate 25 mg capsule sprinkle, ext. release 24 hr 25 mg PO DAILY blood pressure 09/25/21 Dexcom G6 Oil Well Fishing Tool Operator (blood-glucose meter,continuous) #1 ea 11/14/21 Dexcom G6 Sensor (blood-glucose sensor) #9 ea 11/14/21 Dexcom G6 Transmitter (blood-glucose transmitter) #1 ea 11/14/21 cholecalciferol (vitamin D3) 1,250 mcg (50,000 unit) capsule 1,250 mcg PO QWEEK #24 caps 11/14/21 insulin pump cart,automated,BT (Omnipod 5 G6 Pods (Gen 5) subcutaneous cartridge) #30 ea 11/14/21 insulin pump cartridge,automated dose,BT with controller subcutaneous (Omnipod 5 G6 Intro Kit (Gen 5) subcutaneous cartridge with controller) #1 ea 11/14/21 Novolog U-100 Insulin aspart 100 unit/mL subcutaneous solution (insulin aspart U-100) 100 unit continuous subcutaneous infusion .continuous #90 mL 05/29/22 bupropion HCl 100 mg tablet 100 mg PO BID depression 06/17/22 lorazepam 1 mg tablet 1 mg PO QHS anxiety 06/17/22 ramipril 10 mg capsule 10 mg PO BID blood pressures 06/17/22 Hospital Course Operations None Procedures None Summary of Care Provided Minutes Spent on Discharge: 35 Hospital Course: Per HPI:JORGE HOLLIS, is a 27 M with a significant history of hypertension; diabetes mellitus on insulin pump; and alcoholism who presents to the emergency department for alcohol detoxification. Of note patient reports that he has been drinking for about 6 years. He reports drinking a lot each day. He reports drinking any alcoholic drink he can lay hands on ; and this includes beer, whisky and any other hard liquor. Last time he drank was about 2 hours prior to presentation. At time of evaluation he was not having any withdrawal symptoms but he is sure he will be withdrawing later on. He reports a one history of seizures. He is unsure whether his previous one time seizures was from alcohol withdrawal or not. Hospital course: 1. Alcohol withdrawal/elevated LFTs/anxiety/depression?27-year-old male presents to the hospital requesting detox from alcohol. He states that he has been drinking heavily throughout the last 6 years and has been through detox before. LFTs were elevated but these improved with abstinence. We will continue with his home mental health medications and I did encourage him to follow-up with 180 for outpatient rehab. We did discuss the role of Vivitrol on discharge however he was unsure and elected not to proceed. I discussed with him the plan for discharge today he expressed understanding of the risk benefits of going home and would like to go home today. 2. Type 1 diabetes, hypertension, hyperlipidemia are all chronic medical conditions which complicate his care. His home medications were continued where appropriate Physical Exam Narrative General: Alert, Oriented x3, Cooperative, No apparent distress HEENT: Atraumatic, PERRLA, EOMI, Normocephalic Oral: Moist Mucosa Neck: Supple, No JVD Lungs: Clear to auscultation, Normal air movement, No rhonchi, No wheeze, No rales Cardiovascular: Regular rate, Regular Rhythm, Normal S1, Normal S2, No murmurs Abdomen: Soft, Non Tender, Non-Distended, No Hepato-splenomegaly Extremities: No edema, Capillary Refill Less than 3 Seconds Skin: No rashes, No breakdown Musculoskeletal: No Tenderness to Palpation of Joints or Extremities Neurological: Cranial nerves II-XII grossly intact, Motor Exam 5/5 strength throughout, Sensory exam intact to light touch and pain Psych/Mental Status: Normal Affect, Appropriate Weight / BMI Weight Weight: 183 lb 10.321 oz Body Mass Index (BMI) 24.2 ABG / Lab / Microbiology Data 03/21/23 06:10 Laboratory: Laboratory Results - last 24 hr 03/22/23 11:16: POC Glucose 219 H 03/22/23 15:56: POC Glucose 264 H 03/22/23 21:53: POC Glucose 320 H 03/23/23 05:22: POC Glucose 186 H D/C Instructions Discharge Diet: Carb Control Diet Call your doctor if you observe: Fever of 101 or Higher, Shortness of breath, Dizziness, Fainting spells, Swelling in the ankles, Chest pain and Increased palpitations (irregular heartbeat) Meaningful Use Info Meaningful Use Diagnoses (Choose all that apply): None applicable Discharge Plan Admission Admit Date/Time: 03/20/23 04:25 Attending Provider: Colten Crystal Primary Care Provider: DEXTER DANIEL Consulting Providers: William Bowers Discharge Orders/Prescriptions Prescriptions: Continued (DME) Omnipod 5 G6 Intro Kit (Gen 5) Cartridge See Rx Instructions .Route Qty: 1 0RF Rx Instructions: As directed (DME) Omnipod 5 G6 Pods (Gen 5) Cartridge See Rx Instructions .Route Qty: 30 1RF Rx Instructions: 1 pod q 72 hours (DME) Dexcom G6 Oil Well Fishing Tool Operator Misc See Rx Instructions .Route Qty: 1 0RF Rx Instructions: As directed (DME) Dexcom G6 Sensor Device See Rx Instructions .Route Qty: 9 1RF Rx Instructions: 1 sensor q 10 days (DME) Dexcom G6 Transmitter Device See Rx Instructions .Route Qty: 1 1RF Rx Instructions: 1 transmitter q 90 days cholecalciferol (vitamin D3) 1,250 mcg (50,000 unit) capsule 1,250 mcg PO QWEEK Qty: 24 0RF insulin aspart U-100 [Novolog U-100 Insulin aspart] 100 unit/mL solution 100 unit continuous subcutaneous infusion .continuous Qty: 90 1RF Insulin Aspart [Novolog] 100 UNIT/ML Ml See Protocol subcut UD Protocol: 6. Sliding Scale Insulin Custom Condition: mg/dl range Dose/Route: Number of Units Protocol Text: Custom Sliding Scale Patient Comments: INSULIN PUMP- VARYING HOURLY BASAL RATE from 6919-6341 1.3 units 1621-5348 1.35 units 0496-3642 1.4 units Rx Instructions: PT HAS INSULIN PUMP atorvastatin 10 mg Tablet 10 mg PO QHS metoprolol succinate 25 mg Capsule,Sprinkle,Er 24hr 25 mg PO DAILY ramipril 10 mg capsule 10 mg PO BID bupropion HCl 100 mg tablet 100 mg PO BID Hold Instructions: pt states he hasn't been taking Patient Comments: TAKE ONE TABLET BY MOUTH TWICE A DAY lorazepam 1 mg tablet 1 mg PO QHS Referrals / Follow Up: DEXTER DANIEL [Other] DEXTER DANIEL [Other] Disposition Disposition (needs filled in before D/C Order can be placed): Home, Self Care Charges/Coding Visit Charges Inpatient E&M: 81297 Disch Hosp >30min
== END 2023-03-23 09:36 | disposition home or self-care (01) | DRG 897 ==
LOC: ED 03-20 03:04 → MS2 03-20 05:14 → MS3 03-20 18:12
PROVIDERS: Admitting Provider Hospitalist; Emergency Provider Emergency Medicine; Visit Provider Family Medicine
DX: F10.239 Alcohol dependence with withdrawal, unspecified (principal); E10.649 Type 1 diabetes mellitus with hypoglycemia without coma; Z79.4 Long term (current) use of insulin; I10 Essential (primary) hypertension; F32.A Depression, unspecified; E78.00 Pure hypercholesterolemia, unspecified; F41.9 Anxiety disorder, unspecified; Y90.8 Blood alcohol level of 240 mg/100 ml or more; Z96.41 Presence of insulin pump (external) (internal); Z79.899 Other long term (current) drug therapy
CPT/HCPCS: 36415; 80053; 80307; 82077; 82962; 99284; A4216; J2405

== ENCOUNTER 2023-09-04 07:38 | Emergency (ER) | payer OTHER, SELFPAY ==
[2023-09-04 07:39] VITALS: BP 155/118; PULSE 106; RESP 20; O2SAT 98
[2023-09-04 07:40] VITALS: BP 151/115; PULSE 108; RESP 20; TEMP 37.2; O2SAT 96; BMI 25.1
--- NOTE | 2023-09-04 07:51 | ED.VIS.GI ---
HPI HPI - GI History of Present Illness Chief Complaint: Abd Pain Informant: patient Nausea/Vomiting/Emesis GI Symptom: Positive for Nausea and Vomiting Onset: Yesterday Quality: Positive for Nonbilious; Negative for Blood streaks, Coffee ground or Hematemesis Severity: Severe Diarrhea/Melena/Hematochezia GI Symptom: Positive for Diarrhea; Negative for Melena or Hematochezia Onset: Today Stool Quality: Positive for Watery Episodes: 1 Associated Symptoms Associated Symptoms: Negative for Dysuria, Frequency or Hematuria Narrative Narrative: 28-year-old male woke up yesterday morning vomiting, he was drinking alcohol the previous night and thought maybe it was related but the vomiting persisted all day and into this morning, and now is having diarrhea as well. No fevers or chills. 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 He denies any known fevers or chills. No blood anywhere. No recent antibiotics or hospitalizations or travel out of the area or country. Patient states he is a type I diabetic, he states his blood sugars been good. He has an insulin pump and a Dexcom reader. Currently he is at 158. Denies any dyspnea. [facility] Medical History Alcohol abuse Alcohol dependence Anxiety Depression Diabetes mellitus type 1 High cholesterol History of diabetes mellitus HTN (hypertension) Presence of insulin pump Vitamin D deficiency Home Medications Dexcom G6 Cone Marker (blood-glucose meter,continuous) #1 ea 11/14/21 [Rx Last Taken Unknown] cholecalciferol (vitamin D3) 1,250 mcg (50,000 unit) capsule 1,250 mcg PO QWEEK #24 caps 11/14/21 [Rx Last Taken Unknown] insulin pump cart,automated,BT (Omnipod 5 G6 Pods (Gen 5) subcutaneous cartridge) #30 ea 11/14/21 [Rx Last Taken Unknown] Dexcom G6 Sensor (blood-glucose sensor) #9 ea 04/28/23 [Rx Last Taken Unknown] Dexcom G6 Transmitter (blood-glucose transmitter) #1 ea 04/28/23 [Rx Last Taken Unknown] Novolog U-100 Insulin aspart 100 unit/mL subcutaneous solution (insulin aspart U-100) 100 unit continuous subcutaneous infusion .continuous #90 mL 04/28/23 [Rx Last Taken Unknown] insulin pump cartridge,automated dose,BT with controller subcutaneous (Omnipod 5 G6 Intro Kit (Gen 5) subcutaneous cartridge with controller) #1 ea 04/28/23 [Rx Last Taken Unknown] amlodipine 5 mg-benazepril 10 mg capsule 1 cap PO QDAY 08/15/23 [History Last Taken Unknown] ondansetron 8 mg disintegrating tablet 8 mg PO Q8H PRN nausea and vomiting #20 tabs 09/04/23 [Rx Last Taken Unknown] Allergy/AdvReac Type Severity Reaction Status Date / Time No Known Allergies Allergy Verified 09/04/23 07:39 Family History Mother Hypertension Surgical History No history of previous surgery Social History household members: none housing: apartment Smoking Status: Never smoker alcohol intake: current alcohol intake frequency: 3 or more drinks per day Alcohol type: beer and hard liquor substance use type: does not use ROS ROS ED Constitutional Constitutional ED: Reports malaise; Denies chills or fever(s) Eyes Eyes: Denies change in vision or diplopia ENT ENT ED: Denies rhinorrhea or sore throat Cardiovascular Cardiovascular: Denies chest pain or palpitations Respiratory/Chest Respiratory/Chest: Denies cough or dyspnea Gastrointestinal Gastrointestinal: Reports diarrhea, nausea and vomiting; Denies abdominal pain Genitourinary Genitourinary ED: Denies dysuria or hematuria Musculoskeletal Musculoskeletal: Denies back pain or neck pain Integumentary Denies abscess or rash Neurologic Neurologic: Denies headache(s), paresthesias or weakness Psychiatric Psychiatric: Denies anxiety or suicidal thoughts EXAM Physical Exam Const Vital Signs: 09/04/23 07:40 09/04/23 07:39 09/04/23 10:15 Temperature 98.9 F 98.1 F Temperature Source Temporal Oral Pulse Rate 108 H 106 H 57 L Respiratory Rate 20 H 20 H 16 Blood Pressure 151/115 H 155/118 H 127/66 H Blood Pressure Mean 127 130 86 Pulse Ox 96 98 98 Oxygen Delivery Method Room Air Room Air Room Air Positive well nourished and well developed General Appearance ED: well developed and NAD HEENT Reports moist mucous membranes normocephalic and atraumatic Eyes PERRL and EOMs intact bilaterally Neck full ROM and supple Resp normal respiratory effort and clear to auscultation bilaterally Cardio regular rate, regular rhythm and no murmurs Rate: Negative for tachycardic GI non-tender and non-distended Auscultation: normoactive bowel sounds Palpation: soft Back/Spine no CVA tenderness General Back: other FROM Extremity normal to inspection General Extremety ED: Negative for edema, pulses abnormal or tenderness General Extremity: Negative for edema or pulses abnormal Neuro oriented x3, CN's II-XII intact bilaterally and no sensory deficits noted Sensorium / Orientation: awake and alert Motor Exam: strength 5/5 throughout Psych mental status grossly normal and thought process normal Skin no rashes or lesions noted and no wounds MDM MDM MDM Narrative Medical decision making narrative: Labs unremarkable, anion gap not elevated, no electrolytes that require replacing, not in DKA basically. He is feeling much better with decrease in his heart rate after IV fluids and Zofran. He is tolerating oral fluids. He does have a bit of a lymphocytosis, but his total white blood count is well within normal range, I do suspect this is viral gastroenteritis is most likely etiology. He has not had any significant bouts of diarrhea to suggest this is C. difficile, nor did he have any that we could send for testing here but he does not have any red flag risk factors for bacterial etiology. Supportive care advised along with Zofran and supportive care, given a work note and follow-up advised if he has symptoms that persist longer than 72 hours. Lab Data Attestation: I reviewed the patient's lab results. Labs: Laboratory Results - last 24 hr 09/04/23 08:00 WBC 9.9 RBC 4.94 Hgb 15.1 Hct 43.2 MCV 87.4 MCH 30.6 MCHC 35.0 RDW Std Deviation 41.1 RDW Coeff of Last 12.9 Plt Count 177 MPV 9.4 Immature Gran % (Auto) 0.400 Neut % (Auto) 43.0 L Lymph % (Auto) 45.7 H [place] % (Auto) 9.4 Eos % (Auto) 0.1 Baso % (Auto) 1.4 H Absolute Neuts (auto) 4.3 Absolute Lymphs (auto) 4.53 H Nucleated RBC % 0 Differential Comment SCANNED Atypical Lymphocytes 1+ Sodium 138 Potassium 3.5 Chloride 103 Carbon Dioxide 26.0 Anion Gap 9 BUN 9 Creatinine 0.96 Estim Creat Clear Calc 130.62 Est GFR (MDRD) Af Amer 121 Est GFR (MDRD) Non-Af 100 BUN/Creatinine Ratio 9.4 L Glucose 178 H Calcium 8.9 Total Bilirubin 1.10 H AST 130 H ALT 86 H Alkaline Phosphatase 151 H Total Protein 7.1 Albumin 3.5 Globulin 3.6 Albumin/Globulin Ratio 1.0 Discharge Plan Triage Chief Complaint: Abd Pain ED Provider: Lavell Patel Dx/Rx/DC Orders Clinical Impression: Gastroenteritis Instructions: ED Gastroenteritis, Viral (Adult) Prescriptions: New ondansetron 8 mg tablet,disintegrating 8 mg PO Q8H PRN (Reason: nausea and vomiting) Qty: 20 0RF No Action (DME) Omnipod 5 G6 Pods (Gen 5) Cartridge See Rx Instructions .Route Qty: 30 1RF Rx Instructions: 1 pod q 72 hours (DME) Dexcom G6 Cone Marker Misc See Rx Instructions .Route Qty: 1 0RF Rx Instructions: As directed cholecalciferol (vitamin D3) 1,250 mcg (50,000 unit) capsule 1,250 mcg PO QWEEK Qty: 24 0RF (DME) Omnipod 5 G6 Intro Kit (Gen 5) Cartridge See Rx Instructions .Route Qty: 1 0RF Rx Instructions: As directed (DME) Dexcom G6 Sensor Device See Rx Instructions .Route Qty: 9 1RF Rx Instructions: 1 sensor q 10 days (DME) Dexcom G6 Transmitter Device See Rx Instructions .Route Qty: 1 1RF Rx Instructions: 1 transmitter q 90 days insulin aspart U-100 [Novolog U-100 Insulin aspart] 100 unit/mL solution 100 unit continuous subcutaneous infusion .continuous Qty: 90 1RF amlodipine-benazepril 5-10 mg capsule 1 cap PO QDAY Stand Alone Forms: ED Work / School Excuse Primary Care Provider: DEXTER DANIEL MD Referrals: DEXTER DANIEL MD [Other] - 3-5 Days if not improving Disposition Disposition: Home, Self Care
[2023-09-04] MEDS: 0.9% Normal Saline (1000mL) 1,000 ML 1000 ML IV (08:04)
[2023-09-04] MEDS: Ondansetron 4 MG/2 ML Vial IV (08:04)
[2023-09-04 08:21] LABS: Absolute Lymphocyte Count 4.53 X10^3/uL (0.83-4.51); Absolute Neutrophil Count 4.3 X10^3/uL (2.0-7.7); Basophil# 0.14 X10^3/uL; Basophil% 1.4 % (0-1); Eosinophil# 0.01 X10^3/uL; Eosinophils% 0.1 % (0-5); Hematocrit 43.2 % (40-54); Hemoglobin 15.1 g/dL (13.0-16.5); Lymphocyte # 4.53 X10^3/ul (0.83-4.51); Lymphocyte % 45.7 % (19-41); Mean Corpuscular Hgb 30.6 pg (27.0-32.0); Mean Corpuscular Volume 87.4 fL (80-94); Mean Platelet Vol. 9.4 fl (6.2-12.0); Monocyte# 0.93 X10^3/uL; Monocyte% 9.4 % (0-10); NRBC Flagged by Analyzer 0 % (0-5); Neutrophil # 4.26 X10^3/uL (2.7-7.7); POSITIVE MORPHOLOGY YES; Platelet Count 177 K/mm3 (150-450); RBC Distribution Width CV 12.9 % (11.6-14.6); RBC Distribution Width SD 41.1 fl (35.1-43.9); Red Blood Count 4.94 M/mm3 (4.6-6.2); White Blood Count 9.9 K/mm3 (4.4-11.0)
[2023-09-04 08:23] LABS: Differential Indicated SCAN CRITERIA MET
[2023-09-04 08:44] LABS: Differential Comment SCANNED
[2023-09-04 08:46] LABS: Atypical Lymphocyte 1+ %
[2023-09-04 08:51] LABS: AST(SGOT) 130 U/L (15-37); Alanine Aminotransfer ALT/SGPT 86 U/L (16-61); Albumin, Serum 3.5 g/dL (3.2-5.0); Alkaline Phosphatase 151 U/L (45-117); Anion Gap 9 (5-15); BUN 9 mg/dL (7-18); BUN/Creat Ratio 9.4 RATIO (10-20); Calcium,Total 8.9 mg/dL (8.5-10.1); Chloride 103 mmol/L (98-107); Creatinine, Serum 0.96 mg/dL (0.70-1.30); EST Glomerular Filtration Rate 100 mL/min (>60); Est Glom Filt Rate - Afr Amer 121 mL/min (>60); Estimated Creatinine Clearance 130.62 ml/min; Globulin 3.6 g/dL (2.2-4.2); Glucose 178 mg/dL (74-106); Potassium 3.5 mmol/L (3.5-5.1); Protein, Total 7.1 g/dL (6.4-8.2); Sodium Level 138 mmol/L (136-145)
[2023-09-04 10:15] VITALS: BP 127/66; PULSE 57; RESP 16; TEMP 36.7; O2SAT 98
[2023-09-04 11:27] VITALS: BP 150/97; PULSE 87; RESP 16; TEMP 36.6; O2SAT 99
== END 2023-09-04 11:29 | disposition home or self-care (01) ==
PROVIDERS: Emergency Provider Emergency Medicine; Visit Provider Emergency Medicine
DX: K52.9 Noninfective gastroenteritis and colitis, unspecified (principal); E10.9 Type 1 diabetes mellitus without complications; Z96.41 Presence of insulin pump (external) (internal)
CPT/HCPCS: 80053; 85025; 96361; 96374; 99283; J7030; A4216; J2405

== ENCOUNTER → 2024-06-19 | Outpatient (CLI) | payer OTHER, SELFPAY ==
[2024-06-19 11:17] LABS: Absolute Lymphocyte Count 1.25 X10^3/uL (0.83-4.51); Basophil# 0.06 X10^3/uL; Basophil% 0.7 % (0-1); Hematocrit 42.8 % (40-54); Hemoglobin 14.7 g/dL (13.0-16.5); Lymphocyte # 1.25 X10^3/ul (0.83-4.51); Lymphocyte % 15.4 % (19-41); Mean Corp Hgb Conc 34.3 g/dL (32-36); Mean Corpuscular Hgb 30.9 pg (27.0-32.0); Mean Corpuscular Volume 90.1 fL (80-94); Mean Platelet Vol. 9.4 fl (6.2-12.0); Monocyte% 9.8 % (0-10); NRBC Flagged by Analyzer 0 % (0-5); Neutrophil % 73.7 % (47-70); Platelet Count 219 K/mm3 (150-450); RBC Distribution Width CV 12.6 % (11.6-14.6); RBC Distribution Width SD 41.7 fl (35.1-43.9); Red Blood Count 4.75 M/mm3 (4.6-6.2); White Blood Count 8.1 K/mm3 (4.4-11.0)
[2024-06-19 11:51] LABS: ALB/GLOB Ratio 1.1 RATIO (0.9-2.4); AST(SGOT) 111 U/L (15-37); Alanine Aminotransfer ALT/SGPT 136 U/L (16-61); Alkaline Phosphatase 92 U/L (45-117); Anion Gap 14 (5-15); BUN 11 mg/dL (7-18); BUN/Creat Ratio 10.6 RATIO (10-20); Calcium,Total 9.6 mg/dL (8.5-10.1); Chloride 100 mmol/L (98-107); Cholesterol 198 mg/dL (200); Creatinine, Serum 1.04 mg/dL (0.70-1.30); EST Glomerular Filtration Rate 90 mL/min (>60); Est Glom Filt Rate - Afr Amer 109 mL/min (>60); Globulin 3.8 g/dL (2.2-4.2); Glucose 122 mg/dL (74-106); High Density Lipoprotein 93 mg/dL; Potassium 3.7 mmol/L (3.5-5.1); Protein, Total 7.8 g/dL (6.4-8.2); Sodium Level 138 mmol/L (136-145); Triglycerides 136 mg/dL; Very Low Density Lipoprotein 27 mg/dL (5-40)
[2024-06-23 12:08] LABS: Testosterone, % Free 3.15 % (1.50-4.20); Testosterone, Free 15.15 ng/dL (5.00-21.00); Testosterone, Total 481 ng/dL (264-916)
== END | disposition home or self-care (01) ==
PROVIDERS: PCP Internal Medicine; Referring Provider Internal Medicine Endocrinology, Diabetes & Metabolism; Visit Provider Internal Medicine Endocrinology, Diabetes & Metabolism
DX: E10.65 Type 1 diabetes mellitus with hyperglycemia (principal); I10 Essential (primary) hypertension
CPT/HCPCS: 36415; 80053; 80061; 82533; 84402; 84403; 84443; 85025

== ENCOUNTER 2025-01-22 12:27 | Emergency (ER) | payer OTHER, SELFPAY ==
[2025-01-22] VITALS (8 sets, daily range): BP systolic 126–156; BP diastolic 80–111; PULSE 23–125; RESP 16–28; TEMP 36.7–37.1; O2SAT 100; BMI 27.3
--- NOTE | 2025-01-22 13:22 | EX.ED.DYSGE1 ---
HPI History of Present Illness Chief Complaint: Hypoglycemia Narrative Narrative: 29-year-old male past medical history of diabetes, has an insulin pump, presents with hypoglycemia and nausea since yesterday evening. History and physical is limited as patient tends to say I do not remember. He states he does not feel well. His girlfriend is at the bedside who states that they went to the [employer] yesterday, and the patient was able to drive them to an back home. He dropped her off. She called him at 1130 this morning, few hours ago, and noticed that he had more of a mental status change. He was not feeling well. He cannot recall if he has been vomiting or what he ate last. She states that she looked on his insulin pump and he gave himself a bolus of 0.5 units and runs at the basal rate. He may take Humalog exogenously. Per EMS, his blood sugars today prior to arrival around 56. He was bolused glucose, and now has blood sugar in the 1 teens. He presents with hypoglycemia and nausea. [facility] Medical History History of diabetes mellitus Anxiety Alcohol abuse Alcohol dependence Depression Presence of insulin pump Diabetes mellitus type 1 High cholesterol Vitamin D deficiency HTN (hypertension) Home Medications ?Medication ?Instructions ?Recorded ?Last Taken ?Type amlodipine 5 mg-benazepril 10 mg 1 cap PO QDAY 08/15/23 Unknown History capsule ondansetron 8 mg disintegrating 8 mg PO Q8H PRN nausea and 09/04/23 Unknown Rx tablet vomiting #20 tabs blood pressure monitor (Blood #1 ea 06/15/24 Unknown Rx Pressure Kit) blood-glucose sensor (Dexcom G7 #9 ea 10/22/24 Unknown Rx Sensor device) insulin pump cart,auto,BT,G6/7 #30 ea 12/29/24 Unknown Rx (Omnipod 5 G6-G7 Pods (Gen 5) subcutaneous cartridge) insulin lispro 100 unit/mL 100 unit subcut .COMPLEX 01/22/25 Unknown History subcutaneous solution (Humalog U-100 Insulin) ondansetron 4 mg disintegrating 4 mg PO Q8H PRN PRN Nausea #15 tabs 01/22/25 Unknown Rx tablet Allergy/AdvReac Type Severity Reaction Status Date / Time No Known Allergies Allergy Verified 01/22/25 12:29 Family History Mother Hypertension Surgical History No history of previous surgery Social History household members: none housing: apartment Smoking Status: Never smoker alcohol intake: current alcohol intake frequency: a few times a week Alcohol type: beer and hard liquor substance use type: does not use ROS ROS ED ROS Narrative Review of systems positive for low blood sugar, nausea, shakiness, and mental status change. No recent fevers or chills. Questionable vomiting. No exacerbating or alleviating factors. EXAM Physical Exam Narrative Exam Narrative: Afebrile. Vital signs noted. Nontoxic-appearing. Cardiovascular examination reveals mild tachycardia. Lungs are clear to auscultation bilaterally. Abdomen is soft and nontender without guarding or rebound. Positive bowel sounds. Neurological examination nonfocal, nonlateralizing. No pedal edema. Const Vital Signs: 01/22/25 12:29 01/22/25 12:32 01/22/25 13:29 Temperature 98.1 F Temperature Source Oral Pulse Rate 125 H 104 H Respiratory Rate 28 H 20 H Respiratory Effort Normal Non-Labored Respiratory Pattern Normal Blood Pressure 134/93 H 129/89 H Blood Pressure Mean 106 102 Pulse Ox 100 100 Oxygen Delivery Method Room Air Room Air 01/22/25 14:00 01/22/25 15:00 01/22/25 16:00 Temperature Temperature Source Pulse Rate 83 23 L 100 Respiratory Rate 17 16 Respiratory Effort Respiratory Pattern Blood Pressure 139/93 H 149/102 H 126/80 H Blood Pressure Mean 108 117 95 Pulse Ox 100 100 100 Oxygen Delivery Method Room Air Room Air 01/22/25 17:00 01/22/25 18:00 Temperature Temperature Source Pulse Rate 77 Respiratory Rate Respiratory Effort Respiratory Pattern Blood Pressure 156/80 H 146/111 H Blood Pressure Mean 105 122 Pulse Ox Oxygen Delivery Method MDM MDM MDM Narrative Medical decision making narrative: Differential diagnosis includes but not limited to hypoglycemia versus decreased p.o. intake with insulin use versus pancreatitis versus gastritis. Will not bolus the patient secondary to his hypoglycemia. He was only able to eat a small amount of juice of the cookie here. He will be not withdrawn. I will check a CBC, CMP, and lipase. He should probably turn off his insulin pump. His girlfriend stated that she did this for him. Initially, on arrival his blood sugar was 56 and after D10 and was 148. However, on his BMP it was only 65. I reviewed his other laboratory work and he has normal white count 7.3 with hemoglobin 14.5, hematocrit 41.6, platelet count 185. Electrolyte panel is otherwise unremarkable except for carbon dioxide low at 14.8, sodium 144, potassium normal at 3.5, AST and ALT slightly elevated at 133 and 129 which I think is nonspecific. Lipase normal at 62 so I doubt pancreatitis. Blood glucose currently 180. Patient will be encouraged to continue regular diet/p.o. challenge. He will be observed in the emergency department and his glucose rechecked prior to discharge. He states that the only insulin he gets is through his insulin pump and once again his girlfriend reiterates that he was last bolused 0.5 units yesterday evening. Given his mental status change and reported confusion, I obtained a CT of the brain and reviewed the radiology report. It shows no acute process. Rechecked his lipase and it has not increased. Urine for drugs of abuse is negative. Blood alcohol level is slightly elevated at 36. I had a discussion with the patient and his girlfriend. Given his elevation in alcohol level, it is suspected that he may have gone home and drink alcohol. Review of his prior record does show admission for detox. Upon repeat examination, he states that his nausea and vomiting may have been from his increased blood sugar. However, he was having nausea and vomiting prior to this. He was allowed to turn on his insulin pump and bolus his insulin as he states that he enters his blood sugar and it boluses him appropriately. At approximately 1840, reexamined shows him improved. I offered him detox for alcohol but he declined. He was warned of any withdrawal symptoms, but states he feels vastly improved. He is not tachycardic currently. 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 Return instructions to the emergency department were reviewed. Patient is motivated for discharge and would like to go home. Return instructions were reviewed. Disposition is discharged home in stable condition. History & Record Review Discussion w/independent historian: Patient and Significant other Additional record(s) reviewed:: Prior ED visit Lab Data Attestation: I reviewed the patient's lab results. Labs: Laboratory Results - last 24 hr 01/22/25 01/22/25 01/22/25 12:15 12:32 13:06 WBC 7.3 RBC 4.49 L Hgb 14.5 Hct 41.6 MCV 92.7 MCH 32.3 H MCHC 34.9 RDW Std Deviation 43.8 RDW Coeff of Last 12.9 Plt Count 185 MPV 10.2 Immature Gran % (Auto) 0.100 Neut % (Auto) 59.2 Lymph % (Auto) 27.4 [place] % (Auto) 11.8 H Eos % (Auto) 0.5 Baso % (Auto) 1.0 Absolute Neuts (auto) 4.3 Absolute Lymphs (auto) 2.00 Nucleated RBC % 0 Sodium 144 Potassium 3.5 Chloride 99 Carbon Dioxide 14.8 L Anion Gap 30 H BUN 7 Creatinine 0.90 Estim Creat Clear Calc 138.10 Est GFR (MDRD) Non-Af 120 BUN/Creatinine Ratio 7.7 L Glucose 65 L Calcium 9.7 Total Bilirubin 0.55 AST 133 H ALT 129 H Alkaline Phosphatase 99 Total Protein 7.2 Albumin 4.6 Globulin 2.6 Albumin/Globulin Ratio 1.8 Lipase 62 Urine Opiates Screen U Buprenorphine Qual Ur Oxycodone Screen Urine Methadone Screen Urine Fentanyl Screen Ur Barbiturates Screen Ur Phencyclidine Scrn Ur Amphetamines Screen U Benzodiazepines Scrn Urine Cocaine Screen U Cannabinoids Screen Ethyl Alcohol POC Glucose 56 L 148 H 01/22/25 01/22/25 01/22/25 13:22 13:58 15:06 WBC RBC Hgb Hct MCV MCH MCHC RDW Std Deviation RDW Coeff of Last Plt Count MPV Immature Gran % (Auto) Neut % (Auto) Lymph % (Auto) [place] % (Auto) Eos % (Auto) Baso % (Auto) Absolute Neuts (auto) Absolute Lymphs (auto) Nucleated RBC % Sodium Potassium Chloride Carbon Dioxide Anion Gap BUN Creatinine Estim Creat Clear Calc Est GFR (MDRD) Non-Af BUN/Creatinine Ratio Glucose Calcium Total Bilirubin AST ALT Alkaline Phosphatase Total Protein Albumin Globulin Albumin/Globulin Ratio Lipase 66 Urine Opiates Screen U Buprenorphine Qual Ur Oxycodone Screen Urine Methadone Screen Urine Fentanyl Screen Ur Barbiturates Screen Ur Phencyclidine Scrn Ur Amphetamines Screen U Benzodiazepines Scrn Urine Cocaine Screen U Cannabinoids Screen Ethyl Alcohol 36.6 H POC Glucose 180 H 01/22/25 01/22/25 01/22/25 15:31 16:11 16:40 WBC RBC Hgb Hct MCV MCH MCHC RDW Std Deviation RDW Coeff of Last Plt Count MPV Immature Gran % (Auto) Neut % (Auto) Lymph % (Auto) [place] % (Auto) Eos % (Auto) Baso % (Auto) Absolute Neuts (auto) Absolute Lymphs (auto) Nucleated RBC % Sodium Potassium Chloride Carbon Dioxide Anion Gap BUN Creatinine Estim Creat Clear Calc Est GFR (MDRD) Non-Af BUN/Creatinine Ratio Glucose Calcium Total Bilirubin AST ALT Alkaline Phosphatase Total Protein Albumin Globulin Albumin/Globulin Ratio Lipase Urine Opiates Screen NEGATIVE U Buprenorphine Qual NEGATIVE Ur Oxycodone Screen NEGATIVE Urine Methadone Screen NEGATIVE Urine Fentanyl Screen NEGATIVE Ur Barbiturates Screen NEGATIVE Ur Phencyclidine Scrn NEGATIVE Ur Amphetamines Screen NEGATIVE U Benzodiazepines Scrn NEGATIVE Urine Cocaine Screen NEGATIVE U Cannabinoids Screen NEGATIVE Ethyl Alcohol POC Glucose 310 H 337 H 01/22/25 18:20 WBC RBC Hgb Hct MCV MCH MCHC RDW Std Deviation RDW Coeff of Last Plt Count MPV Immature Gran % (Auto) Neut % (Auto) Lymph % (Auto) [place] % (Auto) Eos % (Auto) Baso % (Auto) Absolute Neuts (auto) Absolute Lymphs (auto) Nucleated RBC % Sodium Potassium Chloride Carbon Dioxide Anion Gap BUN Creatinine Estim Creat Clear Calc Est GFR (MDRD) Non-Af BUN/Creatinine Ratio Glucose Calcium Total Bilirubin AST ALT Alkaline Phosphatase Total Protein Albumin Globulin Albumin/Globulin Ratio Lipase Urine Opiates Screen U Buprenorphine Qual Ur Oxycodone Screen Urine Methadone Screen Urine Fentanyl Screen Ur Barbiturates Screen Ur Phencyclidine Scrn Ur Amphetamines Screen U Benzodiazepines Scrn Urine Cocaine Screen U Cannabinoids Screen Ethyl Alcohol POC Glucose 249 H Radiography Diagnostic Testing: Clinical Impression(s) from Imaging Studies Brain CT 01/22/25 15:21 IMPRESSION: 1. Normal CT brain without contrast. 2. Multifocal sinusitis. Reading Location: [id number] Discharge Plan Triage Chief Complaint: Hypoglycemia Other Complaint: Syncope ED Provider: Ammon Nice Dx/Rx/DC Orders Clinical Impression: Presence of insulin pump, ETOH abuse, Nausea and vomiting, Gastritis Instructions: ED Gastritis (Adult), ED Diabetic Insulin Reaction, ED Vomiting (Adult), ED Alcohol Abuse Prescriptions: New ondansetron 4 mg tablet,disintegrating 4 mg PO Q8H PRN PRN (Reason: Nausea) Qty: 15 0RF No Action amlodipine-benazepril 5-10 mg capsule 1 cap PO QDAY (DME) blood pressure monitor [Blood Pressure Kit] Kit See Rx Instructions .Route Qty: 1 0RF Rx Instructions: As directed ondansetron 8 mg tablet,disintegrating 8 mg PO Q8H PRN (Reason: nausea and vomiting) Qty: 20 0RF insulin lispro [Humalog U-100 Insulin] 100 unit/mL solution 100 unit subcut .COMPLEX Rx Instructions: basal rate 0.5, sliding scale ac/hs, insulin pump (DME) Dexcom G7 Sensor Device See Rx Instructions .Route Qty: 9 1RF Rx Instructions: As directed (DME) Omnipod 5 G6-G7 Pods (Gen 5) Cartridge See Rx Instructions .Route Qty: 30 1RF Rx Instructions: 1 pod q 72 hours Primary Care Provider: Jarocho Rice Referrals: Jarocho Rice MD [Primary Care Provider] - 3-5 Days if not improving Activity Restrictions/Additional Instructions: Medication as directed. Bolus yourself insulin as you have done in order to control your blood sugars. Make sure that you are eating appropriately. Return with intractable nausea and vomiting, increased shakiness, new or worsening symptoms. Print Language: Mozambican Disposition Disposition: Home, Self Care
[2025-01-22 13:37] LABS: Hematocrit 41.6 % (40-54); Hemoglobin 14.5 g/dL (13.0-16.5); Immature Granulocytes Count 0.010 X10^3/uL (0.0-0.0); Mean Corp Hgb Conc 34.9 g/dL (32-36); Mean Corpuscular Volume 92.7 fL (80-94); Mean Platelet Vol. 10.2 fl (6.2-12.0); NRBC Flagged by Analyzer 0 % (0-5); Platelet Count 185 K/mm3 (150-450); RBC Distribution Width CV 12.9 % (11.6-14.6); RBC Distribution Width SD 43.8 fl (35.1-43.9); Red Blood Count 4.49 M/mm3 (4.6-6.2); White Blood Count 7.3 K/mm3 (4.4-11.0)
--- OUTSIDE RECORDS SUMMARY | 2025-01-22 13:41 | XMS RPT_ITS | CCD ---
Author Organization [facility] Care Team Providers Care Progress Clerk Name Role Phone SILVIA MUNOZ Unavailable Unavailable PHYSICIAN, DEFAULT Unavailable Unavailable PHYSICIAN, DEFAULT Unavailable Unavailable Dexter Daniel Unavailable Unavailable Unavailable Dr. Sachin Kennedy Emergency Provider Dr. Emy Salazar Admit Provider Dr. Emy Salazar Other Provider Dr. Chiquis Irwin Attending Provider Dr. Chiquis Irwin Other Provider [facility] Doctor, Out of Primary Care Provider Dr. Yrn Lira Referring Provider ZEE Boothe Attending Provider Dr. Paul Ontiveros Attending Provider Dr. Lavell Patel Emergency Provider Care Physician, No Primary Primary Care Provider Unavailable Dr. Osiris Murphy Admit Provider Dr. sOiris Murphy Attending Provider Dr. Osiris Murphy Other Provider NOT, DEFINED Primary Care Provider UnavailDr. Jed Prasad Emergency Provider Dr. Teresa Cedillo Admit Provider Dr. Teresa Cedillo Attending Provider Dr. Teresa Cedillo Other Provider Fredy DELGADO, Dexter Frey Primary Care Provider Dr. Dafne Cornell Emergency Provider FREDY, VALJI Primary Care Provider [phone] Dr. William Bowers Admit Provider Dr. William Bowers Other Provider [phone] Colten Crystal Attending Provider Dr. Colten Crystal Other Provider Fredy DELGADO, Dexter Frey Unavailable Fredy DELGADO, Valdevante Frey Primary Care Provider [phone] Dr. Paul Ontiveros Attending Provider MUNJAPARA, VALJI D Primary Care Unavailable MUNJAPARA, VALJI D Primary Care Unavailable MUNJAPARA, VALJI D Referring Unavailable MUNJAPARA, VALJI D Primary Care Unavailable MUNJAPARA, VALJI D Primary Care Unavailable DAFNE RAMOS Admitting Unavailable DAFNE RAMOS Attending Unavailable MUNJAPARA, VALJI D Attending Unavailable MUNJAPARA, VALJI D Primary Care Unavailable MUNJAPARA, VALJI D Attending Unavailable MUNJAPARA, VALJI D Primary Care Unavailable MUNJAPARA, VALJI D Attending Unavailable MUNJAPARA, VALJI D Primary Care Unavailable Paul Ontiveros Attending Unavailable Munjapara, Dexter Referring Unavailable Paul Ontiveros Attending Unavailable Munjapara, Valji Primary Care Unavailable Munjapara, Valji Referring Unavailable Paul Ontiveros Attending Unavailable Munjapara, Valji Primary Care Unavailable Munjapara, Valji Primary Care Unavailable Paul Ontiveros Attending Unavailable Paul Ontiveros Referring Unavailable Allergies Allergy Classification Reported Allergen(s) Allergy Type Date of Onset Reaction(s) Facility (1 source) Metoprolol; Translations: [metoprolol] Drug Allergy -[facility] Internal Medicine Work Phone: Medications Current Medications Medication Drug Class(es) Dates Sig (Normalized) Sig (Original) amLODIPine 5 mg oral tablet (1 source) Dihydropyridine Calcium Channel Danielle Start: 10-08-2024 5 mg, oral, Daily, First dose on Fri03/02/24 at 0900, Therapeutic interchange for Lotrel 5 mg/40 mg tablet amLODIPine 5 mg / benazepril hydrochloride 40 mg oral capsule (8 sources) Dihydropyridine Calcium Channel Danielle, Angiotensin Converting Enzyme Inhibitor Start: 12-08-2023 End: 12-07-2024 take 1 capsule by mouth once daily amLODIPine-benaz epriL (Lotrel) 5-40 mg capsule Indications: Hypertension, unspecified type Take 1 capsule by mouth once daily. 30 capsule 3 12/08/2023 12/07/2024 Active Start: 08-15-2023 take 1 capsule by mo uth once daily Amlodipine-Benazepril Active 1 CAP PO daily August 15, 2023 12:00am Start: 06-09-2023 End: 12-08-2023 take 1 capsule by mouth once daily amLODIPine-benazepriL (LotreL) 5-10 mg capsule Indications: Hypertension, unspecified type Take 1 capsule by mouth once daily. 90 capsule 3 06/09/2023 12/08/2023 Discontinued (Therapy completed) Blood-Glucose Meter,Continuo us (Dexcom G6 Documentation Manager) misc (10 sources) Start: 11-14-2021 Blood-Glucose Meter,Continuous (Dexcom G6 Documentation Manager) misc Active 0 .Route November 13, 2021 11:00pm As directed Start: 11-14-2021 Blood-Glucose Meter,Continuous (Dexcom G6 Documentation Manager) misc Active 0 .Route November 14, 2021 12:00am As directed Blood-Glucose Sensor (Dexcom G6 Sensor) device (11 sources) Start: 04-28-2023 Blood-Glucose Sensor (Dexcom G6 Sensor) device Active 0 .Route April 28, 2023 4:15pm 1 sensor q 10 days Start: 11-14-2021 End: 04-28-2023 Blood-Glucose Sensor (Dexcom G6 Sensor) device Discontinued 0 .Route November 14, 2021 12:00am April 28, 2023 4:16pm 1 sensor q 10 days Start: 11-14-2021 Blood-Glucose Sensor (Dexcom G6 Sensor) device Active 0 .Route November 13, 2021 11:00pm 1 sensor q 10 days Start: 11-14-2021 Blood-Glucose Sensor (Dexcom G6 Sensor) device Active 0 .Route 9 November 14, 2021 12:00am 1 sensor q 10 days Blood-Glucose Transmitter (Dexcom G6 Transmitter) device (11 sources) Start: 04-28-2023 Blood-Glucose Transmitter (Dexcom G6 Transmitter) device Active 0 .Route 1 April 28, 2023 4:15pm 1 transmitter q 90 days Start: 11-14-2021 End: 04-28-2023 Blood-Glucose Transmitter (D excom G6 Transmitter) device Discontinued 0 .Route 1 November 14, 2021 12:00am April 28, 2023 4:16pm 1 transmitter q 90 days Start: 11-14-2021 Blood-Glucose Transmitter (Dexcom G6 Transmitter) device Active 0 .Route 1 November 13, 2021 11:00pm 1 transmitter q 90 days Start: 11-14-2021 Blood-Glucose Transmitter (Dexcom G6 Transmitter) device Active 0 .Route 1 November 14, 2021 12:00am 1 transmitter q 90 days cholecalciferol 1.25 mg oral capsule (10 sources) Vitamin D Start: 11-14-2021 take 1250 ug by mouth every week Cholecalciferol (Vitamin D3) Active 1250 MCG PO EVERY WEEK November 14, 2021 12:00am Dexcom G6 Sensor device (6 sources) Start: 05-08-2023 Dexcom G6 Sens or device 05/08/2023 Active Start: 05-08-2023 Dexcom G6 Sens or device Dexcom G6 Transmitter device (6 sources) Start: 05-08-2023 Dexcom G6 Knight smitter device 05/08/2023 Active Start: 05-08-2023 Dexcom G6 Knight smitter device glucagon (rdna) 1 mg injection (8 sources) Antihypoglycemic Agent Start: 01-05-2015 50 ml glucose 500 mg/ml prefilled syringe (2 sources) Start: 03-01-2024 50 mL, intrave nous, Every 15 min PRN, low blood sugar - see comments, blood glucose less than 70 mg/dL, Starting on 03/01/24 at 2050, Administer 50 mL; recheck blood glucose and administer another 50 mL if blood glucose still less than 70 mg/dL. Restart insulin infusion when blood glucose is greater than 70 mg/dL at 50% of previous rate AND start D10 at 150 - 250 mL/hour Start: 03-01-2024 End: 03-02-2024 take 150 mg intravenously every hour 150 mL/hr, intravenous, Continuous, Starting on Fri03/01/24 at 2120, Initiate when blood glucose less than or equal to 150 mg/dL and anion gap still open. HYDROmorphone hydrochloride 2 mg oral tablet (2 sources) Opioid Agonist Start: 03-01-2024 take 1 tablet by mouth every four hours as needed Start: 03-01-2024 End: 03-01-2024 0.4 mg, intravenous, Once, O n 03/01/24 at 2225, For 1 dose insulin aspart, human 100 unt/ml injectable solution (20 sources) Insulin Analog Start: 11-14-2021 End: 04-28-2023 Insulin Aspart U-100 (Novolog U-100 Insulin Aspart) 100 unit/mL solution Active 100 UNIT continuous subcutaneous infusion .continuous 90 April 28, 2023 4:27pm Start: 05-22-2015 End: 03-01-2024 inject 95 [IU] by subcutaneous injection once daily INSULIN ASPART U-100 SUBQ Used for his Omnipod insulin pump use up to 95 units daily as directed 05/22/2015 03/01/2024 Discontinued (Other) Start: 05-22-2015 inject 95 [IU] by barraza bcutaneous injection once daily INSULIN ASPART U-100 SUBQ Used for his Omnipod insulin pump use up to 95 units daily as directed 05/22/2015 Active Start: 05-22-2015 INSULIN ASPART U-100 SUBQ Used for his Omnipod insulin pump use up to 95 units daily as directed 0 05/22/2015 Active Start: 12-29-2014 End: 03-01-2024 NovoLOG U-100 Insulin aspart 100 unit/mL injection 05/28/2023 Active insulin lispro 100 unt/ml injectable solution (1 source) Insulin Analog Start: 03-02-2024 0-15 Units, barraza bcutaneous, 3 times daily (morning, midday, late afternoon), First dose on Fri03/02/24 at 0830, Do not hold when patient is not eating, continue order as scheduled for hyperglycemia management. Insulin Lispro Corrective Scale #3 Hypoglycemia protocol Call LIP unit(s) if Blood Glucose is between 0 - 70 mg/dL 0 unit(s) if Blood glucose is between 71-150 3 unit(s) if Blood glucose is between 151-200 6 unit(s) if Blood glucose is between 201-250 9 unit(s) if Blood glucose is between 251-300 12 unit(s) if Blood glucose is between 301-350 15 unit(s) if Blood glucose is between 351-400 Notify provider unit(s) if Blood Glucose is greater than 400 mg/dL Insulin Pump Cart,Auto,Bt-Cntr (Omnipod 5 G6 Intro Kit (Gen 5)) cartridge (11 sources) Start: 04-28-2023 Insulin Pump Cart,Auto,Bt-Cntr (Omnipod 5 G6 Intro Kit (Gen 5)) cartridge Active 0 .Route April 28, 2023 4:12pm As directed Start: 11-14-2021 End: 04-28-2023 Insulin Pump Cart,Auto,Bt-Cn tr (Omnipod 5 G6 Intro Kit (Gen 5)) cartridge Discontinued 0 .Route November 14, 2021 12:00am April 28, 2023 4:12pm As directed Start: 11-14-2021 Insulin Pump C art,Auto,Bt-Cntr (Omnipod 5 G6 Intro Kit (Gen 5)) cartridge Active 0 .Route November 13, 2021 11:00pm As directed Start: 11-14-2021 Insulin Pump C art,Auto,Bt-Cntr (Omnipod 5 G6 Intro Kit (Gen 5)) cartridge Active 0 .Route November 14, 2021 12:00am As directed Insulin Pump Cart,Automated, Bt (Omnipod 5 G6 Pods (Gen 5)) cartridge (10 sources) Start: 11-14-2021 Insulin Pump C art,Automated,Bt (Omnipod 5 G6 Pods (Gen 5)) cartridge Active 0 .Route November 13, 2021 11:00pm 1 pod q 72 hours Start: 11-14-2021 Insulin Pump C art,Automated,Bt (Omnipod 5 G6 Pods (Gen 5)) cartridge Active 0 .Route November 14, 2021 12:00am 1 pod q 72 hours lisinopril 40 mg oral tablet (1 source) Angiotensin Converting Enzyme Inhibitor Start: 03-02-2024 40 mg, oral, Daily, First dose on Fri03/02/24 at 0900, Therapeutic interchange for Lotrel 5 mg/40 mg tablet 24 hr metoprolol succinate 50 mg extended release oral tablet (20 sources) beta-Adrenergic Danielle Start: 03-02-2024 End: 05-31-2024 take 1 tablet by mouth once daily, then take 1 tablet by mouth once daily metoprolol succinate XL (Toprol-XL) 50 mg 24 hr tablet Indications: Hypertension, unspecified type Take 1 tablet (50 mg) by mouth once daily. Take 1 tablet by mouth once nightly. 30 tablet 2 03/02/2024 05/31/2024 Active Start: 12-15-2023 take 2 tablets by mo uth once daily, then take 1 tablet by mouth once daily metoprolol succinate XL (Toprol-XL) 25 mg 24 hr tablet Indications: Hypertension, unspecified type Take 2 tablets (50 mg) by mouth once daily. Take 1 tablet by mouth once nightly. 30 tablet 3 12/15/2023 Active Start: 12-08-2023 End: 03-02-2024 take 2 tablets by mouth once daily, then take 1 tablet by mouth once daily metoprolol succinate XL (Toprol-XL) 25 mg 24 hr tablet Indications: Hypertension, unspecified type Take 2 tablets (50 mg) by mouth once daily. Take 1 tablet by mouth once nightly. 30 tablet 3 12/15/2023 03/02/2024 Discontinued Start: 07-31-2022 End: 06-09-2023 take 1 tablet by mouth once daily metoprolol succinate XL (Toprol-XL) 50 mg 24 hr tablet Take 1 tablet (50 mg) by mouth once daily. 0 07/31/2022 06/09/2023 Discontinued (Therapy completed) Start: 06-06-2022 End: 06-10-2022 take 1 tablet by mouth once daily Metoprolol Succinate ER 50 MG Oral Tablet Extended Release 24 Hour TAKE 1 TABLET DAILY. Quantity: 90 Refills: 3 Ordered: 06-Jun-2022 Dexter Daniel MD Start : 06-Jun-2022 End : 10-Jun-2022 Complete Start: 09-25-2021 End: 08-15-2023 take 25 mg by mouth once daily Metoprolol Succinate Di scontinued 25 MG PO DAILY September 25, 2021 12:00am August 15, 2023 3:31pm Start: 07-26-2021 End: 07-22-2022 take 1 tablet by mouth once daily Metoprolol Succinate ER 25 MG Oral Tablet Extended Release 24 Hour TAKE 1 TABLET DAILY. Quantity: 90 Refills: 3 Ordered: 26-Jul-2021 Dexter Daniel MD Start : 26-Jul-2021 End : 22-Jul-2022 Complete mirtazapine 30 mg oral tablet (4 sources) Start: 05-30-2022 End: 06-09-2023 take 1 tablet by mouth once daily at bedtime mirtazapine (Remeron) 30 mg tablet Take 1 tablet (30 mg) by mouth once daily at bedtime. 0 05/30/2022 06/09/2023 Discontinued (Therapy completed) nystatin 786307 unt/ml oral suspension (2 sources) Polyene Antifungal Start: 06-01-2022 take 1 mL by mouth every six hours Nystatin Active 4 ML PO EVERY 6 HOURS 112 7 June 01, 2022 12:00am swish and swallow Omnipod 5 G6 Intro Kit, Gen 5, cartridge (6 sources) Start: 05-08-2023 Omnipod 5 G6 I ntro Kit, Gen 5, cartridge 05/08/2023 Active Start: 05-08-2023 Omnipod 5 G6 I ntro Kit, Gen 5, cartridge ondansetron 4 mg disintegrating oral tablet (4 sources) Serotonin-3 Receptor Antagonist Start: 03-02-2024 take 1 tablet by mouth every eight hours as needed 4 mg, oral, Every 8 hours PRN, nausea/vomiting, first line, Starting on Fri03/02/24 at 0615 Start: 03-01-2024 End: 03-01-2024 4 mg, intravenous, Once, On Fri03/01/24 at 2225, For 1 dose, When administering via IV Push, administer over 3-5 minutes. Start: 09-04-2023 take 8 mg by mouth e very eight hours Ondansetron Active 8 MG PO Q8H September 04, 2023 12:00am polyethylene glycol 3350 [id number] mg powder for oral solution (1 source) Osmotic Laxative Start: 03-02-2024 ramipril 10 mg oral capsule (20 sources) Angiotensin Converting Enzyme Inhibitor Start: 10-22-2022 End: 10-22-2023 take 1 capsule by mouth once daily ramipril (Altace) 10 mg capsule Indications: Hypertension, unspecified type Take 1 capsule (10 mg) by mouth once daily. 90 capsule 3 10/22/2022 06/09/2023 Discontinued (Therapy completed) Start: 11-14-2021 End: 08-15-2023 take 10 mg by mouth twice daily Ramipril Discontinued 10 MG PO TWICE A DAY June 17, 2022 12:50pm August 15, 2023 3:31pm Start: 06-11-2021 End: 11-14-2021 take 10 mg by mouth once daily Ramipril Discontinued 1 0 MG PO DAILY September 25, 2021 12:00am November 14, 2021 10:32am rosuvastatin calcium 5 mg oral tablet (3 sources) HMG-CoA Reductase Inhibitor Start: 12-15-2023 End: 01-18-2025 take 5 mg by mouth once daily 5 mg, oral, Daily, First dose on Fri03/02/24 at 0900 vortioxetine 10 mg oral tablet (3 sources) Start: 10-22-2022 End: 06-09-2023 take 1 tablet by mouth once daily vortioxetine (Trintellix) 10 mg tablet tablet Indications: Current mild episode of major depressive disorder without prior episode (CMS/HCC) Take 1 tablet (10 mg) by mouth once daily. 90 tablet 0 10/22/2022 06/09/2023 Discontinued (Therapy completed) Completed/Discontinued Medications Medication Drug Class(es) Dates Sig (Normalized) Sig (Original) allopurinol 300 mg oral tablet (2 sources) Xanthine Oxidase Inhibitor Start: 12-15-2023 End: 03-01-2024 take 1 tablet by mouth once daily allopurinol (Zyloprim) 300 mg tablet Indications: Gout, unspecified cause, unspecified chronicity, unspecified site Take 1 tablet (300 mg) by mouth once daily. 90 tablet 12/15/2023 03/01/2024 Discontinued (Ineffective) amoxicillin 500 mg oral tablet (3 sources) Penicillin-class Antibacterial Start: 07-26-2021 End: 06-10-2022 take 1 tablet by mouth three times daily Amoxicillin 500 MG Oral Tablet TAKE 1 TABLET 3 TIMES DAILY. Quantity: 30 Refills: 0 Ordered: 26-Jul-2021 Dexter Daniel MD Start : 26-Jul-2021 End : 10-Jun-2022 Complete aspirin 81 mg delayed release oral tablet (4 sources) Platelet Aggregation Inhibitor, Nonsteroidal Anti-inflammatory Drug Start: 06-11-2021 End: 06-10-2022 Aspirin 81 MG Oral Tablet Delayed Release Quantity: 0 Refills: 0 Ordered: 11-Jun-2021 Dexter Daniel MD Start : 11-Jun-2021 End : 10-Jun-2022 Complete atorvastatin 10 mg oral tablet (19 sources) HMG-CoA Reductase Inhibitor Start: 06-11-2021 End: 08-15-2023 take 10 mg by mouth at bedtime Atorvastatin Discontinued 10 MG PO AT BEDTIME September 25, 2021 12:00am August 15, 2023 3:30pm buPROPion hydrochloride 100 mg oral tablet (10 sources) Aminoketone Start: 06-07-2022 End: 08-15-2023 take 100 mg by mouth twice daily Bupropion Hcl Discontinued 100 MG PO TWICE A DAY June 17, 2022 1:00am August 15, 2023 3:30pm Start: 06-06-2022 buPROPion HCl - 100 MG Oral Tablet OEN TWICE A DAY Quantity: 60 Refills: 0 Ordered: 06-Jun-2022 Dexter Daniel MD Start : 06-Jun-2022 Active 250 ml glucose 50 mg/ml / sodium chloride 4.5 mg/ml injection (1 source) Start: 03-01-2024 End: 03-02-2024 take 150 mL intravenously every hour 150 mL/hr, intravenous, Continuous, Starting on Fri03/01/24 at 2120, Initiate when blood glucose between 150 mg/dL - 250 mg/dL. 3 ml insulin detemir 100 unt/ml pen injector (8 sources) Insulin Analog Start: 01-05-2015 End: 03-01-2024 insulin detemir (Levemir Flextouch) 100 unit/mL (3 mL) pen Use as Directed for pump failure 01/05/2015 03/01/2024 Discontinued (Therapy completed) Start: 01-05-2015 insulin detemi r (Levemir Flextouch) 100 unit/mL (3 mL) pen Use as Directed for pump failure 0 01/05/2015 Active insulin detemir (Levemir U-100 Insulin) 100 unit/mL injection Inject under the skin once daily at bedtime. Backup for pump failure Active 100 ml insulin, regular, human 1 unt/ml injection (1 source) Insulin Start: 03-01-2024 End: 03-02-2024 0-50 Units/hr (0-50 mL/hr), intravenous, Continuous, Starting on Fri03/01/24 at 2250, When patient meets DKA criteria (blood glucose > 250 mg/dL, arterial pH 3.3 mmol/L : INITIATE infusion at 0.14 units/kg/hr (max initial rate of 15 units/hr) If CrCl less than 30 mL/min or known CKD: INITIATE at 0.05 units/kg/hr (max initial rate of 7 units/hr) Adjust based on every 1 hour capillary blood glucose results as follows: Step 1: goal decrease in blood glucose within 1 hour after initiation of insulin infusion: 50 mg/dL or 10% of initial blood glucose value (choose a or b based on initial BG drop) Step 1 (a): IF blood glucose decreases by 250 mg/dL continue same rate and reassess hourly Step 2: If within next 1 - 2 hours blood glucose still not less than or equal to 250 mg/dL increase infusion rate by 25% until blood glucose less than 250 mg/dL and notify provider. Step 3: notify provider when blood glucose less than than 250 mg/dL and assess anion gap; If anion gap closed proceed to step 4 Step 3: When blood glucose less than than 250 mg/dL AND anion gap still open (choose a, b, or c based on hourly blood glucose level): Step 3 (a): If blood glucose between 151 and 250 mg/dL and anion gap OPEN continue infusion at the same rate; see dextrose orders for changing fluids to D5W containing fluids; titrate insulin up/down as needed by 25% to maintain blood glucose between 151-250 mg/dL and notify provider; repeat this step as needed and titrate down to a minimum insulin infusion rate of 0.1 units/kg/hr Step 3 (b): If blood glucose between 70-150 mg/dL and AG open decrease insulin infusion rate by 50% notify provider; see dextrose orders for addition of D10; repeat this step as needed and if unable to maintain blood glucose > 150 mg/dL titrate down to a minimum insulin infusion rate of 0.5 units/hr Step 3 (c): If blood glucose less than 70 mg/dL and AG open HOLD insulin infusion for 15 minutes and see dextrose orders for dextrose administration. Recheck blood glucose 15 minutes after dextrose treatment. If glucose is greater than 70 mg/dL, resume insulin drip at 50% of previous rate. If glucose is still less than 70 mg/dL, repeat this step. Notify provider. if unable to maintain blood glucose > 150 mg/dL titrate down to a minimum insulin infusion rate of 0.5 units/hr Step 4 anion gap closed and DKA resolved Do not discontinue unless the following criteria for resolution of DKA is met and discussed with the provider: anion gap closed acidosis reversed tolerates oral feeds a plan for long acting insulin is established If DKA resolved and patient does not tolerate oral feeds/not eating reliably continue intravenous insulin infusion using the Intensive Insulin Algorithm with a target blood glucose of 140-180 mg/dL. IF DKA resolved and patient tolerating oral feeds/eating reliably discontinue insulin infusion 2 hours after administration of long acting SQ insulin. , Protocol Document: , Other Initial Dose: 0.14 unit/kg/hr with max of 15 units/hr and 0.05 units/kg/hr and max of 7 units/hr for ckd or CrCl less than 30 mL/min iohexol (OMNIPaque) 350 mg iodine/mL solution 69 mL (1 source) Start: 03-01-2024 End: 03-01-2024 69 mL, intravenous, Once in imaging, Starting on Fri03/01/24 at 1954, For 1 dose LORazepam 1 mg oral tablet (10 sources) Benzodiazepine Start: 06-06-2022 End: 08-15-2023 take 1 mg by mouth at bedtime Lorazepam Discontinued 1 MG PO AT BEDTIME June 17, 2022 1:00am August 15, 2023 3:31pm 1 ml morphine sulfate 4 mg/ml prefilled syringe (1 source) Opioid Agonist Start: 03-01-2024 End: 03-01-2024 4 mg, intravenous, Once, On Fri03/01/24 at 1820, For 1 dose 1000 ml sodium chloride 9 mg/ml injection (2 sources) Start: 03-01-2024 End: 10-07-2024 1,000 mL, intravenous, at 999 mL/hr, Administer over 1 Hours, Once, On Fri03/01/24 at 2004, For 1 dose Problems Active Problems Problem Classification Problem Date Documented Date Episodic/Chronic Acute and unspecified renal failure (20 sources) Acute renal failure syndrome; Translations: [Acute kidney failure, unspecified] Episodic Alcohol-related disorders (20 sources) Alcohol dependence; Translations: [Alcohol dependence, uncomplicated] Onset: 06-09-2023 06-17-2022 Chronic Anxiety disorders (2 sources) Generalized anxiety disorder; Translations: [Generalized anxiety disorder] Chronic Cardiac dysrhythmias (14 sources) Sinus tachycardia; Translations: [Tachycardia, unspecified] Episodic Chronic kidney disease (11 sources) Chronic kidney disease, unspecified; Translations: [Chronic kidney disease] Onset: 12-08-2023 Resolved: 12-15-2023 Chronic Complications of surgical procedures or medical care (8 sources) Drug therapy finding; Translations: [Unspecified adverse effect of drug or medicament, initial encounter] 06-09-2022 Episodic Diabetes mellitus with complications (20 sources) Diabetes mellitus; Translations: [Diabetes with unspecified complication, type II or unspecified type, not stated as uncontrolled] Onset: 10-22-2022 Resolved: 03-02-2024 Chronic Diabetes mellitus without complication (20 sources) Type 1 diabetes mellitus; Translations: [Type 1 diabetes mellitus without complications] Chronic Diabetes mellitus without complication (16 sources) Insulin pump present; Translations: [Presence of insulin pump (external) (internal)] Episodic Diseases of white blood cells (14 sources) Leukocytosis; Translations: [Elevated white blood cell count, unspecified] Chronic Disorders of lipid metabolism (19 sources) Mixed hyperlipidemia; Translations: [Mixed hyperlipidemia] Onset: 10-22-2022 01-29-2022 Chronic Esophageal disorders (15 sources) Gastroesophageal reflux disease without esophagitis; Translations: [Gastro-esophageal reflux disease without esophagitis] Onset: 10-22-2022 10-22-2022 Chronic Essential hypertension (20 sources) Benign essential hypertension; Translations: [Benign essential hypertension] Onset: 10-22-2022 Chronic Fluid and electrolyte disorders (20 sources) Dehydration; Translations: [Dehydration] Episodic Gout and other crystal arthropathies (3 sources) Gout; Translations: [Gout, unspecified] Onset: 12-15-2023 12-15-2023 Chronic Malaise and fatigue (1 source) Chronic fatigue syndrome; Translations: [Chronic fatigue syndrome] Chronic Mood disorders (20 sources) Mild major depression, single episode; Translations: [Major depressive disorder, single episode, mild] Onset: 10-22-2022 Resolved: 12-15-2023 10-22-2022 Chronic Mycoses (8 sources) Candidiasis of mouth; Translations: [Candidal stomatitis] 06-09-2022 Episodic Noninfectious gastroenteritis (1 source) Gastroenteritis; Translations: [Noninfective gastroenteritis and colitis, unspecified] 09-04-2023 Episodic Nutritional deficiencies (10 sources) Vitamin D deficiency; Translations: [Vitamin D deficiency, unspecified] 01-29-2022 Chronic Other liver diseases (4 sources) Fatty (change of) liver, not elsewhere classified; Translations: [Fatty (change of) liver, not elsewhere classified] Onset: 12-15-2023 Chronic Other liver diseases (3 sources) Steatosis of liver; Translations: [Fatty (change of) liver, not elsewhere classified] Onset: 12-15-2023 12-15-2023 Chronic Other nutritional; endocrine; and metabolic disorders (4 sources) Overweight in adulthood with body mass index of 25 or more but less than 30; Translations: [Overweight] Episodic Other nutritional; endocrine; and metabolic disorders (5 sources) H/O: diabetes mellitus; Translations: [Personal history of other endocrine, nutritional and metabolic disease] 07-15-2022 Episodic Other nutritional; endocrine; and metabolic disorders (2 sources) Personal history of other endocrine, nutritional and metabolic disease; Translations: [Personal history of other endocrine, metabolic, and immunity disorders] 07-15-2022 Episodic Other upper respiratory infections (2 sources) Upper respiratory infection; Translations: [Acute upper respiratory infections of unspecified site] Episodic Pancreatic disorders (not diabetes) (3 sources) Acute pancreatitis without necrosis or infection, unspecified; Translations: [Acute pancreatitis] Onset: 03-01-2024 Episodic Screening and history of mental health and substance abuse codes (5 sources) Patient encounter status; Translations: [Screening for depression] Episodic Thyroid disorders (1 source) Nontoxic goiter, unspecified; Translations: [Nontoxic goiter, unspecified] Onset: 09-02-2017 Chronic Unclassified (3 sources) Readiness finding; Translations: [Desire for detoxification] 03-20-2023 Past or Other Problems Problem Classification Problem Date Documented Da te Episodic/Chronic Abdominal pain (15 sources) Abdominal pain; Translations: [Unspecified abdominal pain] Onset: 06-09-2023 Resolved: 12-15-2023 06-09-2023 Episodic Other lower respiratory disease (2 sources) H/O: respiratory disease; Translations: [Personal history of other infectious and parasitic diseases] Resolved: 06-06-2022 Episodic Other nutritional; endocrine; and metabolic disorders (5 sources) Central obesity; Translations: [Localized adiposity] Resolved: 07-22-2022 Chronic Other nutritional; endocrine; and metabolic disorders (1 source) Blood urate raised; Translations: [Hyperuricemia without signs of inflammatory arthritis and tophaceous disease] 12-15-2023 Episodic Residual codes; unclassified (4 sources) H/O: psychiatric disorder; Translations: [Personal history of other specified diseases] Resolved: 07-26-2021 Episodic Unclassified (5 sources) No history of procedure; Translations: [No history of previous surgery] Unclassified (2 sources) Onset: 12-15-2023 12-15-2023 Results Test Name Value Interpretation Reference Range Facility Endocrinology Visit Reporton 09-20-2024 Endocrinology Visit Report [facility] [address] [place] [address] OFFICE VISIT Date of Service: 09/20/24 MR#: [id number] Acct: [id number] Name: TELMAJORGE DALY Rep #: [id number] 5 : 1995 Provider: Jessica Chambers Age/Sex: 29/M Location: [facility] Status: Signed Intake Vital Signs 06/15/24 15:53 09/20/24 15:59 Height 6 ft 1 in 6 ft 1 in Weight: 205 lb 215 lb 8 oz BMI 27.0 28.4 BP 166/108 H 150/80 H Blood Pressure Location Lt brachial Position Sitting Pulse 106 H 110 H Pulse Source Monitor Monitor Pulse Oximetry (%) 97 97 Oxygen Delivery Method room air room air Intake Visit Reasons: 4 M FU Chief Complaint: Diabetes Is patient in pain?: No Allergies No Known Allergies Allergy (Verified 09/20/24 16:03) Medications ???Medication ???Instructions ???Recorded ???Confirmed ???Type amlodipine 5 mg-benazepril 10 mg 1 cap PO QDAY 08/15/23 09/20/24 Hi story capsule ondansetron 8 mg disintegrating 8 mg PO Q8H PRN nausea and 4 09/20/24 Rx tablet vomiting #20 tabs rosuvastatin 5 mg tablet 5 mg PO QDAY 12/16/23 09/20/24 His tory insulin pump cart,auto,BT,G6/7 #30 ea 06/07/24 09/20/24 Rx (Omnipod 5 G6-G7 Pods (Gen 5) subcutaneous cartridge) blood pressure monitor (Blood #1 ea 06/15/24 09/20/24 Rx Pressure Kit) dexamethasone 1 mg tablet 1 mg PO ONCE #1 TAB 06/15/2409/20 Rx metoprolol succinate 50 mg 50 mg PO QHS 06/15/24 09/20/24 His tory tablet,extended release 24 hr blood-glucose sensor (Dexcom G7 #9 ea 09/20/24 09/20/24 Rx Sensor device) insulin lispro 100 unit/mL 100 unit subcut DAILY #90 mL 09/2009/20/24 Rx subcutaneous solution (Humalog U-100 Insulin) [facility] Medical History History of diabetes mellitus Anxiety Alcohol abuse Alcohol dependence Depression Presence of insulin pump Diabetes mellitus type 1 High cholesterol Vitamin D deficiency HTN (hypertension) Surgical History No history of previous surgery Family History Mother Hypertension Social History household members: none housing: apartment Smoking Status: Never smoker alcohol intake: current alcohol intake frequency: a few times a week Alcohol type: beer and hard liquor substance use type: does not use HPI HPI Chief Complaint: Diabetes Details: JORGE HOLLIS, is a 29 M who presents to the office today for follow up. A1C is 6.5% (this is not accurate) GMI is 8% He is using Omnipod insulin pump with DExcom G7 CGM and automated mode. He is doing better. He is staying in automated mode, he is entering 60 g of carbs per day and before entering 22 g/ day. He continues to drink some alcohol. He is doing well at work. He isn't consistently taking his BP pills. ROS Const Constitutional: No fatigue, weight change or change in appetite Eyes Eyes: No change in vision ENT ENT: No dizziness/vertigo or difficulty swallowing Cardio Cardiology: No chest pain at rest, chest pain with exertion, shortness of breath or palpitations Musc Musculoskeletal: No abnormal gait, joint pain, numbness or tingling Neuro Neurology: No abnormal gait, memory loss, numbness or tingling Psych Psychiatric: Positive for anxiety, No change in appetite, Positive for depression, No memory loss and No Thoughts of harming yourself/Others Resp Respiratory: No cough, chest congestion or shortness of breath Gastro GI: No abdominal pain, constipation, diarrhea or difficulty swallowing Genitourinary Male: No burning urination Skin Skin: No itchy eyes or wounds Endo Endocrine: No fatigue or weight change Aller/Imm Allergy/Immunologic: No itchy eyes Exam Const General: cooperative, healthy appearing, comfortable, no acute distress, well developed and cushingoid (round facies) Nutritional Appearance: well nourished Orientation: alert, awake and oriented x3 HENMT Head: normal to inspection Ears: hearing grossly normal bilaterally Nose: external nose normal Mouth: oral mucosae normal Eyes General: appearance normal, both eyes and all related structures Alignment and Position: alignment normal Periorbital: periorbital findings normal Eyelids: eyelids normal Conjunctivae: conjunctivae normal Neck Neck: normal visual inspection Neck mass: No Chest Chest palpation inspection: normal inspection of the chest Resp Effort Inspection: normal respiratory effort, able to speak in complete sentences, symmetric chest movement, no audible wheezes and no cough Auscultation: Bilateral: Clear to Auscultation Cardio R (more content not included)... Normal [facility] Testosterone, Total / Freeon 06-23-2024 TESTOSTER,FREE 15.15 ng/dL Normal 5.00-21.00 [facility] Comment on above: Order Comment: N Performed By: #### L 570.2003, L3100.5310, L500.4100, L500.4050, L100.0100, L509.6000 #### [facility] [address] [place], [address] TESTOSTER,TOTAL 481 ng/dL Normal 264-916 [facility] Comment on above: Order Comment: N Result Comment: Adul t male reference interval is based on a population of healthy nonobese males (BMI <30) between 19 and 39 years old. wilver Sandoval.al. JCEM 2017,102;4640-8969. PMID: [id number]. Performed By: #### L 501.9520, L3100.5310, L500.4100, L500.4050, L100.0100, L509.6000 #### [facility] [address] [place], [place], [id number] TESTOSTERONE,%F 3.15 Normal 1.50-4.20 [facility] Comment on above: Order Comment: N Result Comment: Perf ormed at: [facility] [address] [id number] Nurse Practitioner Per Diem: Mick Rizvi PhD, Phone: [phone] Performed at: [facility] [address] [id number] Nurse Practitioner Per Diem: Khalif Kapoor MD, Phone: [phone] Performed By: #### L 501.9520, L3100.5310, L500.4100, L500.4050, L100.0100, L509.6000 #### [facility] [address] [place], [address] CORTISOL SERUMon 06-21-2024 CORTISOL 1.50 ug/dL Low 3.44-22.45 [facility] Comment on above: Result Comment: Adul t (AM) 5.27 - 22.45 ug/dL Adult (PM) 3.44 - 16.76 ug/dL Performed By: #### L 501.9520, L3100.5310, L500.4100, L500.4050, L100.0100, L509.6000 #### [facility] [address] [place], [address] CBC W/Diff, Automatedon 01-2 -2024 Absolute Lymph 1.25 X10 3/uL Normal 0.83-4.51 [facility] Comment on above: Performed By: #### L 501.9520, L3100.5310, L500.4100, L500.4050, L100.0100, L509.6000 #### [facility] [address] [place], [address] Absolute Neut 6.0 X10 3/uL Normal 2.0-7.7 [facility] Comment on above: Performed By: #### L 501.9520, L3100.5310, L500.4100, L500.4050, L100.0100, L509.6000 #### [facility] [address] [place], [address] Basophils/100 WBC (Bld) 0.7 % Normal 0-1 [facility] Comment on above: Performed By: #### L 501.9520, L3100.5310, L500.4100, L500.4050, L100.0100, L509.6000 #### [facility] [address] [place], [address] Eosinophils/100 WBC (Bld) 0.0 % Normal 0-5 [facility] Comment on above: Performed By: #### L 501.9520, L3100.5310, L500.4100, L500.4050, L100.0100, L509.6000 #### [facility] [address] [place], [address] Erythrocyte distribution width (RBC) [Ratio] 12.6 % Normal 11.6-14.6 [facility] Comment on above: Performed By: #### L 501.9520, L3100.5310, L500.4100, L500.4050, L100.0100, L509.6000 #### [facility] [address] [place], [address] Hematocrit (Bld) [Volume fraction] 42.8 % Normal 40-54 [facility] Comment on above: Performed By: #### L 501.9520, L3100.5310, L500.4100, L500.4050, L100.0100, L509.6000 #### [facility] [address] [place], [address] Hemoglobin (Bld) [Mass/Vol] 14.7 g/dL Normal 13.0-16.5 [facility] Comment on above: Performed By: #### L 501.9520, L3100.5310, L500.4100, L500.4050, L100.0100, L509.6000 #### [facility] [address] [place], [address] IG% 0.400 Normal 0.0-0.9 [facility] Comment on above: Result Comment: IG% - Immature Granulocytes (promyelocytes, myelocytes and metamyelocytes) > 1% indicates that a LEFT SHIFT is Present. Performed By: #### L 501.9520, L3100.5310, L500.4100, L500.4050, L100.0100, L509.6000 #### [facility] [address] [place], [address] Lymphocytes/100 WBC (Bld) 15.4 % Low 19-41 [facility] Comment on above: Performed By: #### L 501.9520, L3100.5310, L500.4100, L500.4050, L100.0100, L509.6000 #### [facility] [address] [place], [address] MCH (RBC) [Entitic mass] 30.9 pg Normal 27.0-32.0 [facility] Comment on above: Performed By: #### L 501.9520, L3100.5310, L500.4100, L500.4050, L100.0100, L509.6000 #### [facility] [address] [place], [address] MCHC (RBC) [Mass/Vol] 34.3 g/dL Normal 32-36 [facility] Comment on above: Performed By: #### L 501.9520, L3100.5310, L500.4100, L500.4050, L100.0100, L509.6000 #### [facility] [address] [place], [address] MCV (RBC) [Entitic vol] 90.1 fL Normal 80-94 [facility] Comment on above: Performed By: #### L 501.9520, L3100.5310, L500.4100, L500.4050, L100.0100, L509.6000 #### [facility] [address] [place], [address] Monocytes/100 WBC (Bld) 9.8 % Normal 0-10 [facility] Comment on above: Performed By: #### L 501.9520, L3100.5310, L500.4100, L500.4050, L100.0100, L509.6000 #### [facility] [address] [place], [address] Neutrophils/100 WBC (Bld) 73.7 % High 47-70 [facility] Comment on above: Performed By: #### L 501.9520, L3100.5310, L500.4100, L500.4050, L100.0100, L509.6000 #### [facility] [address] [place], [address] Nucleated RBC (Bld) [#/Vol] 0 10*3/uL Normal 0-5 [facility] Comment on above: Performed By: #### L 501.9520, L3100.5310, L500.4100, L500.4050, L100.0100, L509.6000 #### [facility] [address] [place], [address] Platelet mean volume (Bld) [Entitic vol] 9.4 fL Normal 6.2-12.0 [facility] Comment on above: Performed By: #### L 501.9520, L3100.5310, L500.4100, L500.4050, L100.0100, L509.6000 #### [facility] [address] [place], [address] Platelets (Bld) [#/Vol] 219 10*3/uL Normal 150-450 [facility] Comment on above: Performed By: #### L 501.9520, L3100.5310, L500.4100, L500.4050, L100.0100, L509.6000 #### [facility] [address] [place], [address] RBC (Bld) [#/Vol] 4.75 10*6/uL Normal 4.6-6.2 [facility] Comment on above: Performed By: #### L 501.9520, L3100.5310, L500.4100, L500.4050, L100.0100, L509.6000 #### [facility] [address] [place], [address] RDW SD 41.7 fl Normal 35.1-43.9 [facility] Comment on above: Performed By: #### L 501.9520, L3100.5310, L500.4100, L500.4050, L100.0100, L509.6000 #### [facility] [address] [place], [address] WBC (Bld) [#/Vol] 8.1 10*3/uL Normal 4.4-11.0 [facility] Comment on above: Performed By: #### L 501.9520, L3100.5310, L500.4100, L500.4050, L100.0100, L509.6000 #### [facility] [address] [place], [address] Comprehensive Metabolic Prof ilon 06-19-2024 Albumin [Mass/Vol] 4.0 g/dL Normal 3.2-5.0 [facility] Comment on above: Performed By: #### L 501.9520, L3100.5310, L500.4100, L500.4050, L100.0100, L509.6000 #### [facility] [address] [place], [address] Albumin/Globulin [Mass ratio] 1.1 {ratio} Normal 0.9-2.4 [facility] Comment on above: Performed By: #### L 501.9520, L3100.5310, L500.4100, L500.4050, L100.0100, L509.6000 #### [facility] [address] [place], [address] ALK P 92 U/L Normal 45-117 [facility] Comment on above: Performed By: #### L 501.9520, L3100.5310, L500.4100, L500.4050, L100.0100, L509.6000 #### [facility] [address] [place], [address] ALT [Catalytic activity/Vol] 136 U/L High 16-61 [facility] Comment on above: Performed By: #### L 501.9520, L3100.5310, L500.4100, L500.4050, L100.0100, L509.6000 #### [facility] [address] [place], [address] AST [Catalytic activity/Vol] 111 U/L High 15-37 [facility] Comment on above: Performed By: #### L 501.9520, L3100.5310, L500.4100, L500.4050, L100.0100, L509.6000 #### [facility] [address] [place], [address] Bilirubin [Mass/Vol] 1.60 mg/dL High 0.20-1.00 [facility] Comment on above: Result Comment: For patients on eltrombopag therapy, use of Dimension Alexis TBIL is not recommended. Performed By: #### L 501.9520, L3100.5310, L500.4100, L500.4050, L100.0100, L509.6000 #### [facility] [address] [place], [address] BUN/CRE 10.6 RATIO Normal 10-20 [facility] Comment on above: Performed By: #### L 501.9520, L3100.5310, L500.4100, L500.4050, L100.0100, L509.6000 #### [facility] [address] [place], [address] CA,Total 9.6 mg/dL Normal 8.5-10.1 [facility] Comment on above: Performed By: #### L 501.9520, L3100.5310, L500.4100, L500.4050, L100.0100, L509.6000 #### [facility] [address] [place], [address] Chloride [Moles/Vol] 100 mmol/L Normal 98-107 [facility] Comment on above: Performed By: #### L 501.9520, L3100.5310, L500.4100, L500.4050, L100.0100, L509.6000 #### [facility] [address] [place], [address] CO2 [Moles/Vol] 23.0 mmol/L Normal 21.0-32.0 [facility] Comment on above: Performed By: #### L 501.9520, L3100.5310, L500.4100, L500.4050, L100.0100, L509.6000 #### [facility] [address] [place], [place], [id number] (372) Creatinine [Mass/Vol] 1.04 mg/dL Normal 0.70-1.30 [facility] Comment on above: Result Comment: The validity of the calculated GFR GFRAA in patients over 70 years has not been determined. Clinical correlation is essential. Performed By: #### L 501.9520, L3100.5310, L500.4100, L500.4050, L100.0100, L509.6000 #### [facility] [address] [place], [place], [phone] (866) EST GFR - AA 109 mL/min Normal >60 [facility] Comment on above: Result Comment: Afri can Macanese GFR Calc Performed By: #### L 501.9520, L3100.5310, L500.4100, L500.4050, L100.0100, L509.6000 #### [facility] [address] [place], [place], [id number] GAP 14 Normal 5-15 [facility] Comment on above: Performed By: #### L 501.9520, L3100.5310, L500.4100, L500.4050, L100.0100, L509.6000 #### [facility] [address] [place], [place], [id number] GFR/1.73 sq M.predicted among non-blacks MDRD (S/P/Bld) [Vol rate/Area] 90 mL/min/{1.73_m2} Normal >60 [facility] Comment on above: Result Comment: Non- GFR Calc Performed By: #### L 501.9520, L3100.5310, L500.4100, L500.4050, L100.0100, L509.6000 #### [facility] [address] [place], [address] Globulin (S) [Mass/Vol] 3.8 g/dL Normal 2.2-4.2 [facility] Comment on above: Performed By: #### L 501.9520, L3100.5310, L500.4100, L500.4050, L100.0100, L509.6000 #### [facility] [address] [place], [address] Glucose [Mass/Vol] 122 mg/dL High 74-106 [facility] Comment on above: Result Comment: Fast ing Glucose result from 100 to 125 mg/dL suggests IMPAIRED HOMEOSTASIS per A.D.A. criteria. Performed By: #### L 501.9520, L3100.5310, L500.4100, L500.4050, L100.0100, L509.6000 #### [facility] [address] [place], [address] Potassium [Moles/Vol] 3.7 mmol/L Normal 3.5-5.1 [facility] Comment on above: Performed By: #### L 501.9520, L3100.5310, L500.4100, L500.4050, L100.0100, L509.6000 #### [facility] [address] [place], [address] Sodium [Moles/Vol] 138 mmol/L Normal 136-145 [facility] Comment on above: Performed By: #### L 501.9520, L3100.5310, L500.4100, L500.4050, L100.0100, L509.6000 #### [facility] [address] [place], [address] T PROT 7.8 g/dL Normal 6.4-8.2 [facility] Comment on above: Performed By: #### L 501.9520, L3100.5310, L500.4100, L500.4050, L100.0100, L509.6000 #### [facility] [address] [place], [address] Urea nitrogen [Mass/Vol] 11 mg/dL Normal 7-18 [facility] Comment on above: Performed By: #### L 501.9520, L3100.5310, L500.4100, L500.4050, L100.0100, L509.6000 #### [facility] [address] [place], [address] Lipid Profileon 06-19-2024 Cholesterol [Mass/Vol] 198 mg/dL Normal 200 [facility] Comment on above: Result Comment: <200 mg/dL Desirable 200-240 mg/dL Borderline >240 mg/dL High Risk Performed By: #### L 501.9520, L3100.5310, L500.4100, L500.4050, L100.0100, L509.6000 #### [facility] [address] [place], [address] Cholesterol in HDL [Mass/Vol] 93 mg/dL Normal [facility] Comment on above: Result Comment: The drugs N-Acetylcysteine and Metamizole may falsely depress this assay. Reference Range HDL <40 mg/dL Low HDL Cholesterol HDL >or= 60 mg/dL High HDL Cholesterol Performed By: #### L 501.9520, L3100.5310, L500.4100, L500.4050, L100.0100, L509.6000 #### [facility] [address] [place], [address] Cholesterol in LDL [Mass/Vol] 78 mg/dL Normal 0-130 [facility] Comment on above: Performed By: #### L 501.9520, L3100.5310, L500.4100, L500.4050, L100.0100, L509.6000 #### [facility] [address] [place], [address] Cholesterol in VLDL [Mass/Vol] 27 mg/dL Normal 5-40 [facility] Comment on above: Performed By: #### L 501.9520, L3100.5310, L500.4100, L500.4050, L100.0100, L509.6000 #### [facility] [address] [place], [place], [address] Triglyceride [Mass/Vol] 136 mg/dL Normal [facility] Comment on above: Result Comment: The drugs N-Acetylcysteine and Metamizole may falsely depress this assay. Serum Triglycerides Reference Interval Normal <150 mg/dL Borderline high 150 - 199 mg/dL High 200 - 499 mg/dL Very High > or = 500 mg/dL Performed By: #### L 501.9520, L3100.5310, L500.4100, L500.4050, L100.0100, L509.6000 #### [facility] [address] [place], [place], [id number] Thyroid Stim Hormone (TSH)on 06-19-2024 TSH 1.330 uIU/mL Normal 0.358-3.740 [facility] Comment on above: Performed By: #### L 501.9520, L3100.5310, L500.4100, L500.4050, L100.0100, L509.6000 #### [facility] [address] [place], [place], [id number] Endocrinology Visit Reporton 06-15-2024 Endocrinology Visit Report [facility] [address] [place], [place] [address] OFFICE VISIT Date of Service: 06/15/24 MR#: [id number] Acct: [id number] Name: JORGE HOLLIS Rep #: [id number] 1 : 1995 Provider: Jessica Chambers Age/Sex: 29/M Location: [facility] Status: Signed Intake Vital Signs 12/16/23 14:56 06/15/24 15:53 Height 6 ft 1 in 6 ft 1 in Weight: 201 lb 205 lb BMI 26.5 27.0 BP 138/90 H 166/108 H Blood Pressure Location Rt brachial Position Sitting Respiration 18 Pulse 78 106 H Pulse Source Monitor Monitor Temp 96.0 F L Temp Source Temporal Pulse Oximetry (%) 97 97 Oxygen Delivery Method room air room air Intake Visit Reasons: 6 M FU Chief Complaint: Diabetes Is patient in pain?: No Allergies No Known Allergies Allergy (Verified 06/15/24 15:57) Medications ???Medication ???Instructions ???Recorded ???Confirmed ???Type amlodipine 5 mg-benazepril 10 mg 1 cap PO QDAY 08/15/23 06/15/24 History capsule ondansetron 8 mg disintegrating 8 mg PO Q8H PRN nausea and 09/04/23 06/15/24 Rx tablet vomiting #20 tabs rosuvastatin 5 mg tablet 5 mg PO QDAY 12/16/23 06/15/24 History blood-glucose sensor (Dexcom G7 #9 ea 06/07/24 06/15/24 Rx Sensor device) insulin pump cart,auto,BT,G6/7 #30 ea 06/07/24 06/15/24 Rx (Omnipod 5 G6-G7 Pods (Gen 5) subcutaneous cartridge) insulin lispro 100 unit/mL 100 unit subcut DAILY #90 mL 06/08/24 06/15/24 Rx subcutaneous solution (Humalog U-100 Insulin) blood pressure monitor (Blood #1 ea 06/15/24 06/15/24 Rx Pressure Kit) dexamethasone 1 mg tablet 1 mg PO ONCE #1 TAB 06/15/24 06/15/24 Rx metoprolol succinate 50 mg 50 mg PO QHS 06/15/24 06/15/24 History tablet,extended release 24 hr PFSH Medical History History of diabetes mellitus Anxiety Alcohol abuse Alcohol dependence Depression Presence of insulin pump Diabetes mellitus type 1 High cholesterol Vitamin D deficiency HTN (hypertension) Surgical History No history of previous surgery Family History Mother Hypertension Social History household members: none housing: apartment Smoking Status: Never smoker alcohol intake: current alcohol intake frequency: a few times a week Alcohol type: beer and hard liquor substance use type: does not use HPI HPI Chief Complaint: Diabetes Details: JORGE HOLLIS, is a 29 M who presents to the office today for follow up. A1C is 6.5% GMI not available, however average glucose is 210 He is using Omnipod 5 with Dexcom CGM and automated mode. Upload shows inconsistent use of CGM and not entering carbs (average 22 g/day) Blood pressure is elevated, he is working on this with PCP. He is continuing to drink, but not daily. He appears Cushingoid. ROS Const Constitutional: No fatigue or weight change ENT ENT: No dizziness/vertigo Cardio Cardiology: No chest pain at rest, chest pain with exertion, shortness of breath or palpitations Skin Skin: No wounds Endo Endocrine: No fatigue or weight change Exam Const General: cooperative, healthy appearing, comfortable, no acute distress, well developed and cushingoid Nutritional Appearance: well nourished Orientation: alert, awake and oriented x3 HENMT Head: normal to inspection Ears: hearing grossly normal bilaterally Nose: external nose normal Mouth: oral mucosae normal Eyes General: appearance normal, both eyes and all related structures Alignment and Position: alignment normal Periorbital: periorbital findings normal Eyelids: eyelids normal Conjunctivae: conjunctivae normal Neck Neck: normal visual inspection Neck mass: No Chest Chest palpation inspection: normal inspection of the chest Resp Effort Inspection: normal respiratory effort, able to speak in complete sentences, symmetric chest movement, no audible wheezes and no cough Cardio Rate: regular rate Rhythm: regular rhythm Skin General: no rashes or lesions noted Neuro General: patient alert, patient awake and patient oriented x3 Cranial Nerves: CN's II-XI intact bilaterally Cognition: normal cognition Speech: speech normal Gait: normal gait Motor: muscle tone normal throughout Extrem General: no edema Psych Appearance: grossly normal Mental Status: mental status grossly normal Mood: congruent mood Affect: normal affect Speech and Movement: speech and movement normal Attitude: cooperative Thought Process: normal Thought Content: normal Judgment: judgment good Results POC A1C POC A1C 6.5 % Last Edit by Masoud Harris (more content not included)... Normal [facility] Basic metabolic 2000 panelon 03-02-2024 Anion gap [Moles/Vol] 17 mmol/L Normal 10-20 [facility] Comment on above: Performed By: #### 5 7021-8 #### LISSETTE NEAL ([id number]) [facility] ([facility]) [address] [place] [address] Performed By: #### 2 4339-4 #### LISSETTE NEAL ([id number]) [facility] ([facility]) [address] [place] [address] Calcium [Mass/Vol] 8.9 mg/dL Normal 8.6-10.3 [facility] Comment on above: Performed By: #### 5 7021-8 #### LISSETTE NEAL ([id number]) [facility] ([facility]) [address] [place] [address] Chloride [Moles/Vol] 104 mmol/L Normal 98-107 [facility] Comment on above: Performed By: #### 5 7021-8 #### LISSETTE NEAL ([id number]) [facility] ([facility]) [address] [place] [address] CO2 [Moles/Vol] 17 mmol/L Low 21-32 [facility] Comment on above: Performed By: #### 5 7021-8 #### LISSETTE NEAL ([id number]) [facility] ([facility]) [address] [place] [address] Performed By: #### 2 4339-4 #### LISSETTE NEAL ([id number]) [facility] ([facility]) [address] [place] [address] Creatinine [Mass/Vol] 0.94 mg/dL Normal 0.50-1.30 [facility] Comment on above: Performed By: #### 5 7021-8 #### LISSETTE NEAL ([id number]) [facility] ([facility]) [address] [place], [place] [id number] Glucose [Mass/Vol] 188 mg/dL High 74-99 [facility] Comment on above: Performed By: #### 5 7021-8 #### LISSETTE NEAL ([id number]) [facility] ([facility]) [address] [place] [address] Potassium [Moles/Vol] 4.1 mmol/L Normal 3.5-5.3 [facility] Comment on above: Performed By: #### 5 7021-8 #### LISSETTE NEAL ([id number]) [facility] ([facility]) [address] [place] [address] Sodium [Moles/Vol] 134 mmol/L Low 136-145 [facility] Comment on above: Performed By: #### 5 7021-8 #### LISSETTE NEAL ([id number]) [facility] ([facility]) [address] [place] [address] Urea nitrogen [Mass/Vol] 10 mg/dL Normal 6-23 [facility] Comment on above: Performed By: #### 5 7021-8 #### LISSETTE NEAL ([id number]) [facility] ([facility]) [address] [place] [address] eGFR - PINF [facility] Comment on above: Calculations of luis felipe mated GFR are performed using the 2020 CKD-EPI Study Refit equation without the race variable for the IDMS-Traceable creatinine methods. https://jasn.asnjournals.org/content/early/ASN.71599 88395 Interpretation and review of laboratory results Abnormal [facility] Calcium [Mass/Vol] 8.7 mg/dL 8.6 - 10. 3 mg/dL [facility] Chloride [Moles/Vol] 106 mmol/L 98 - 10 7 mmol/L [facility] Creatinine [Mass/Vol] 0.97 mg/dL 0.50 - 1.30 mg/dL [facility] eGFR - PINF [facility] Comment on above: Calculations of luis felipe mated GFR are performed using the 2020 CKD-EPI Study Refit equation without the race variable for the IDMS-Traceable creatinine methods. https://jasn.asnjournals.org/content/early/ASN.36519 40480 Glucose [Mass/Vol] 115 mg/dL High 74 - 99 mg/dL [facility] Interpretation and review of laboratory results Abnormal [facility] Potassium [Moles/Vol] 3.8 mmol/L 3.5 - 5.3 mmol/L [facility] Sodium [Moles/Vol] 136 mmol/L 136 - 145 mmol/L [facility] Urea nitrogen [Mass/Vol] 12 mg/dL 6 - 23 mg/dL [facility] Calcium [Mass/Vol] 8.7 mg/dL Normal 8.6-10.3 [facility] Comment on above: Performed By: #### 2 4339-4 #### LISSETTE NEAL ([id number]) [facility] ([facility]) [address] [place] [address] Chloride [Moles/Vol] 106 mmol/L Normal 98-107 [facility] Comment on above: Performed By: #### 2 4339-4 #### LISSETTE NEAL ([id number]) [facility] ([facility]) [address] [place] [address] Creatinine [Mass/Vol] 0.97 mg/dL Normal 0.50-1.30 [facility] Comment on above: Performed By: #### 2 4339-4 #### LISSETTE NEAL ([id number]) [facility] ([facility]) [address] [place] [address] 67235 GFR/1.73 sq M.predicted MDRD (S/P/Bld) [Vol rate/Area] mL/min/{1.73_m2} Normal >60 [facility] Comment on above: Result Comment: Calc ulations of estimated GFR are performed using the 2020 CKD-EPI Study Refit equation without the race variable for the IDMS-Traceable creatinine methods. https://jasn.asnjournals.org/content//ASN.55489 18273 Performed By: #### 5 7021-8 #### LISSETTE NEAL ([id number]) [facility] ([facility]) [address] [place] [address] Performed By: #### 2 4339-4 #### LISSETTE NEAL ([id number]) [facility] ([facility]) [address] [place] [address] Glucose [Mass/Vol] 115 mg/dL High 74-99 [facility] Comment on above: Performed By: #### 2 4339-4 #### LISSETTE NEAL ([id number]) [facility] ([facility]) [facility] [place] [address] Potassium [Moles/Vol] 3.8 mmol/L Normal 3.5-5.3 [facility] Comment on above: Performed By: #### 2 4339-4 #### LISSETTE NEAL ([id number]) [facility] ([facility]) [address] [place] [address] Sodium [Moles/Vol] 136 mmol/L Normal 136-145 [facility] Comment on above: Performed By: #### 2 4339-4 #### LISSETTE NEAL ([id number]) [facility] ([facility]) [address] [place] [address] 22878 Urea nitrogen [Mass/Vol] 12 mg/dL Normal 6-23 [facility] Comment on above: Performed By: #### 2 4339-4 #### LISSETTE NEAL ([id number]) [facility] ([facility]) [address] [place] [address] Beta hydroxybutyrate [Mass o r moles/Vol]on 03-02-2024 Beta hydroxybutyrate [Moles/Vol] 3.52 mmol/L High 0.02 - 0.27 mmol/L [facility] Interpretation and review of laboratory results Abnormal [facility] The beta-hydroxybutyrate test performance characteristics have been validated by [facility]. This test has not been approved by the FDA; however, such approval is not necessary. [facility] Beta hydroxybutyrate [Moles/Vol] 3.52 mmol/L High 0.02-0.27 [facility] Comment on above: Order Comment: The b eta-hydroxybutyrate test performance characteristics have been validated by [facility]. This test has not been approved by the FDA; however, such approval is not necessary. Performed By: #### 2 4339-4 #### MCLAUGHLIN VAL ([id number]) [facility] ([facility]) [address] [place] [address] ECG 12 LeadOrdered By: Kaylan Rubio on 03-02-2024 Atrial Rate 139 BPM [facility] Work Phone: [phone] P [place] 56 degrees [facility] Work Phone: [phone] P Offset 202 ms [facility] Work Phone: P Onset 153 ms [facility] Work Phone: DC Interval 130 ms [facility] Work Phone: [phone] Q Onset 218 ms [facility] Work Phone: [phone] QRS Count 23 beats [facility] Work Phone: [phone] QRS Duration 78 ms [facility] Work Phone: [phone] QT Interval 296 ms [facility] Work Phone: [phone] QTC Calculation(Bazett) 450 ms [facility] Work Phone: [phone] QTC Fredericia 391 ms [facility] Work Phone: [phone] R [place] 65 degrees [facility] Work Phone: [phone] T [place] 48 degrees [facility] Work Phone: [phone] T Offset 366 ms [facility] Work Phone: [phone] Ventricular Rate 139 BPM [facility] Work Phone: [phone] [facility] Work Phone: [phone] ECG 12 Leadon 03-02-2024 Sinus tachycardia Anterolateral infarct , age undetermined Abnormal ECG No previous ECGs available See ED provider note for full interpretation and clinical correlation Confirmed by Kaylan Rubio ([id number]) on 03/02/2024 11:21:20 AM MUSE Kaylan Rubio PA-C - 03/02/2024 Sinus tachycardia Anterolateral infarct , age undetermined Abnormal ECG No previous ECGs available See ED provider note for full interpretation and clinical correlation Confirmed by Kaylan Rubio ([id number]) on 03/02/2024 11:21:20 AM [facility] Work Phone: Glucose Test strip manual (B ld) [Mass/Vol]on 03-02-2024 Glucose [Mass/Vol] 191 mg/dL High 74 - 99 mg/dL [facility] Interpretation and review of laboratory results Abnormal [facility] Glucose [Mass/Vol] 191 mg/dL High 74-99 [facility] Comment on above: Performed By: #### 2 4339-4 #### LISSETTE NEAL ([id number]) [facility] ([facility]) [address] [place] [address] Glucose [Mass/Vol] 224 mg/dL High 74 - 99 mg/dL [facility] Interpretation and review of laboratory results Abnormal [facility] Glucose [Mass/Vol] 224 mg/dL High 74-99 [facility] Comment on above: Performed By: #### 2 4339-4 #### LISSETTE NEAL ([id number]) [facility] ([facility]) [address] [place] [address] Glucose [Mass/Vol] 238 mg/dL High 74 - 99 mg/dL [facility] Interpretation and review of laboratory results Abnormal [facility] Glucose [Mass/Vol] 238 mg/dL High 74-99 [facility] Comment on above: Performed By: #### 2 4339-4 #### LISSETTE NEAL ([id number]) [facility] ([facility]) [address] [place] [address] Glucose [Mass/Vol] 178 mg/dL High 74 - 99 mg/dL [facility] Interpretation and review of laboratory results Abnormal [facility] Glucose [Mass/Vol] 178 mg/dL High 74-99 [facility] Comment on above: Performed By: #### 2 4339-4 #### LISSETTE NEAL ([id number]) [facility] ([facility]) [address] [place] [address] Glucose [Mass/Vol] 129 mg/dL High 74 - 99 mg/dL [facility] Interpretation and review of laboratory results Abnormal [facility] Glucose [Mass/Vol] 129 mg/dL High 74-99 [facility] Comment on above: Performed By: #### 2 4339-4 #### LISSETTE NEAL ([id number]) [facility] ([facility]) [address] [place] [address]67[address] Glucose [Mass/Vol] 93 mg/dL 74 - 99 mg/dL [facility] Interpretation and review of laboratory results Normal [facility] Glucose [Mass/Vol] 93 mg/dL Normal 74-99 [facility] Comment on above: Performed By: #### 2 4339-4 #### LISSETTE NEAL ([id number]) [facility] ([facility]) [address] [place] [address]32 Glucose [Mass/Vol] 86 mg/dL 74 - 99 mg/dL [facility] Interpretation and review of laboratory results Normal [facility] Glucose [Mass/Vol] 86 mg/dL Normal 74-99 [facility] Comment on above: Performed By: #### 2 4339-4 #### LISSETTE NEAL ([id number]) [facility] ([facility]) [address] [place] [address]44 Glucose [Mass/Vol] 106 mg/dL High 74 - 99 mg/dL [facility] Interpretation and review of laboratory results Abnormal [facility] Glucose [Mass/Vol] 106 mg/dL High 74-99 [facility] Comment on above: Performed By: #### 2 341-6 ####LISSETTE NEAL ([id number])[facility] ([facility])[address] [place] [address] HbA1c (Bld) [Mass fraction]o n 03-02-2024 Average glucose Estimated from glycated hemoglobin (Bld) [Mass/Vol] 137 mg/dL Not Established [facility] Interpretation and review of laboratory results Abnormal [facility] Diagnosis of Diabetes-Adults Non-Diabetic: < or = 5.6% Increased risk for developing diabetes: 5.7-6.4% Diagnostic of diabetes: > or = 6.5% [facility] Hemoglobin A1con 03-02-2024 HbA1c (Bld) [Mass fraction] 6.4 % High See comment [facility] Lavender Topon 03-02-2024 Extra Tube Hold for add-ons. [facility] Comment on above: Auto resulted. [facility] SST TOPon 03-02-2024 Extra Tube Hold for add-ons. [facility] Comment on above: Auto resulted. [facility] Beta hydroxybutyrate [Mass o r moles/Vol]on 03-01-2024 Beta hydroxybutyrate [Moles/Vol] mmol/L High 0.02 - 0.27 mmol/L [facility] Interpretation and review of laboratory results Abnormal [facility] The beta-hydroxybutyrate test performance characteristics have been validated by [facility]. This test has not been approved by the FDA; however, such approval is not necessary. [facility] Beta hydroxybutyrate [Moles/Vol] >24.00 High 0.02-0.27 [facility] Comment on above: Order Comment: The b eta-hydroxybutyrate test performance characteristics have been validated by [facility]. This test has not been approved by the FDA; however, such approval is not necessary. Performed By: #### 3 5255-9 #### MCLAUGHLIN VAL ([id number]) [facility] ([facility]) [address] [place] [address] CBC W Auto Differential pane l (Bld)on 03-01-2024 Basophils (Bld) [#/Vol] 0.02 10*3/uL [facility] Basophils/100 WBC (Bld) 0.2 % 0.0 - 2.0 % [facility] Eosinophils (Bld) [#/Vol] 0.00 10*3/uL [facility] Eosinophils/100 WBC (Bld) 0.0 % 0.0 - 6.0 % [facility] Erythrocyte distribution width (RBC) [Ratio] 12.5 % 11.5 - 14.5 % [facility] Hematocrit (Bld) [Volume fraction] 45.7 % 41.0 - 52.0 % [facility] Hemoglobin (Bld) [Mass/Vol] 15.6 g/dL 13.5 - 17.5 g/dL [facility] Immature granulocytes (Bld) [#/Vol] 0.06 10*3/uL [facility] Immature granulocytes/100 WBC (Bld) 0.6 % 0.0 - 0.9 % [facility] Comment on above: Immature Granulocyte Count (IG) includes promyelocytes, myelocytes and metamyelocytes but does not include bands. Percent differential counts (%) should be interpreted in the context of the absolute cell counts (cells/UL). Interpretation and review of laboratory results Abnormal [facility] Lymphocytes (Bld) [#/Vol] 0.91 10*3/uL Low [facility] Lymphocytes/100 WBC (Bld) 8.5 % 13.0 - 44.0 % [facility] MCH (RBC) [Entitic mass] 31.1 pg 26.0 - 34.0 pg [facility] MCHC (RBC) [Mass/Vol] 34.1 g/dL 32.0 - 36.0 g/dL [facility] MCV (RBC) [Entitic vol] 91 fL 80 - 100 fL [facility] Monocytes (Bld) [#/Vol] 1.00 10*3/uL [facility] Monocytes/100 WBC (Bld) 9.4 % 2.0 - 10.0 % [facility] Neutrophils (Bld) [#/Vol] 8.69 10*3/uL High [facility] Comment on above: Percent differential counts (%) should be interpreted in the context of the absolute cell counts (cells/uL). Neutrophils/100 WBC (Bld) 81.3 % 40.0 - 80.0 % [facility] Nucleated RBC/100 WBC (Bld) [Ratio] 0.0 % [facility] Platelets (Bld) [#/Vol] 186 10*3/uL [facility] RBC (Bld) [#/Vol] 5.01 10*6/uL [facility] WBC (Bld) [#/Vol] 10.7 10*3/uL [facility] Basophils (Bld) [#/Vol] 0.02 x10*3/uL Normal 0.00-0.10 [facility] Comment on above: Performed By: #### 5 7021-8 #### LISSETTE NEAL ([id number]) [facility] ([facility]) [address] [place] [address]13 Basophils/100 WBC (Bld) 0.2 % Normal 0.0-2.0 [facility] Comment on above: Performed By: #### 5 7021-8 #### LISSETTE NEAL ([id number]) [facility] ([facility]) [address] [place] [address] 34024 Eosinophils (Bld) [#/Vol] 0.00 x10*3/uL Normal 0.00-0.70 [facility] Comment on above: Performed By: #### 5 7021-8 #### LISSETTE NEAL ([id number]) [facility] ([facility]) [address] [place] [address] 73270 Eosinophils/100 WBC (Bld) 0.0 % Normal 0.0-6.0 [facility] Comment on above: Performed By: #### 5 7021-8 #### LISSETTE NEAL ([id number]) [facility] ([facility]) [address] [place] [address] 74445 Erythrocyte distribution width (RBC) [Ratio] 12.5 % Normal 11.5-14.5 [facility] Comment on above: Performed By: #### 5 7021-8 #### LISSETTE NEAL ([id number]) [facility] ([facility]) [address] [place] [address] 11845 Hematocrit (Bld) [Volume fraction] 45.7 % Normal 41.0-52.0 [facility] Comment on above: Performed By: #### 5 7021-8 #### LISSETTE NEAL ([id number]) [facility] ([facility]) [address] [place] [address] 67989 Hemoglobin (Bld) [Mass/Vol] 15.6 g/dL Normal 13.5-17.5 [facility] Comment on above: Performed By: #### 5 7021-8 #### LISSETTE NEAL ([id number]) [facility] ([facility]) [address] [place] [address] 13072 Immature granulocytes (Bld) [#/Vol] 0.06 x10*3/uL Normal 0.00-0.70 [facility] Comment on above: Performed By: #### 5 7021-8 #### LISSETTE NEAL ([id number]) [facility] ([facility]) [address] [place] [address] 74431 Immature granulocytes/100 WBC (Bld) 0.6 % Normal 0.0-0.9 [facility] Comment on above: Result Comment: Suzanne ture Granulocyte Count (IG) includes promyelocytes, myelocytes and metamyelocytes but does not include bands. Percent differential counts (%) should be interpreted in the context of the absolute cell counts (cells/UL). Performed By: #### 5 7021-8 #### LISSETTE NEAL ([id number]) [facility] ([facility]) [address] [place] [address] 36659 Lymphocytes (Bld) [#/Vol] 0.91 x10*3/uL Low 1.20-4.80 [facility] Comment on above: Performed By: #### 5 7021-8 #### LISSETTE NEAL ([id number]) [facility] ([facility]) [address] [place] [address] 87633 Lymphocytes/100 WBC (Bld) 8.5 % Normal 13.0-44.0 [facility] Comment on above: Performed By: #### 5 7021-8 #### LISSETTE NEAL ([id number]) [facility] FACILITY LAB ([facility]) [address] [place] [address] MCH (RBC) [Entitic mass] 31.1 pg Normal 26.0-34.0 [facility] Comment on above: Performed By: #### 5 7021-8 #### LISSETTE NEAL ([id number]) [facility] ([facility]) [address] [place] [address] 52276 MCHC (RBC) [Mass/Vol] 34.1 g/dL Normal 32.0-36.0 [facility] Comment on above: Performed By: #### 5 7021-8 #### LISSETTE NEAL ([id number]) [facility] ([facility]) [address] [place] [address] 16850 MCV (RBC) [Entitic vol] 91 fL Normal 80-100 [facility] Comment on above: Performed By: #### 5 7021-8 #### LISSETTE NEAL ([id number]) [facility] ([facility]) [address] [place] [address] 85488 Monocytes (Bld) [#/Vol] 1.00 x10*3/uL Normal 0.10-1.00 [facility] Comment on above: Performed By: #### 5 7021-8 #### LISSETTE NEAL ([id number]) [facility] ([facility]) [address] [place] [address] 37849 Monocytes/100 WBC (Bld) 9.4 % Normal 2.0-10.0 [facility] Comment on above: Performed By: #### 5 7021-8 #### LISSETTE NEAL ([id number]) [facility] ([facility]) [address] [place] [address] 28193 Neutrophils (Bld) [#/Vol] 8.69 x10*3/uL High 1.20-7.70 [facility] Comment on above: Result Comment: Perc ent differential counts (%) should be interpreted in the context of the absolute cell counts (cells/uL). Performed By: #### 5 7021-8 #### LISSETTE NEAL ([id number]) [facility] ([facility]) [address] [place] [address] 94669 Neutrophils/100 WBC (Bld) 81.3 % Normal 40.0-80.0 [facility] Comment on above: Performed By: #### 5 7021-8 #### LISSETTE NEAL ([id number]) [facility] ([facility]) [address] [place] [address] 34942 Nucleated RBC/100 WBC (Bld) [Ratio] 0.0 /100 WBCs Normal 0.0-0.0 [facility] Comment on above: Performed By: #### 5 7021-8 #### LISSETTE NEAL ([id number]) [facility] ([facility]) [address] [place] [address] 51144 Platelets (Bld) [#/Vol] 186 x10*3/uL Normal 150-450 [facility] Comment on above: Performed By: #### 5 7021-8 #### LISSETTE NEAL ([id number]) [facility] ([facility]) [address] [place] [address] 36117 RBC (Bld) [#/Vol] 5.01 x10*6/uL Normal 4.50-5.90 [facility] Comment on above: Performed By: #### 5 7021-8 #### LISSETTE NEAL ([id number]) [facility] ([facility]) [address] [place] [address] 24092 WBC (Bld) [#/Vol] 10.7 x10*3/uL Normal 4.4-11.3 [facility] Comment on above: Performed By: #### 5 7021-8 #### LISSETTE NEAL ([id number]) [facility] ([facility]) [address] [place] [address] ABDOMEN PELVIS W IV CONTR Andreea 03-01-2024 CT ABDOMEN PELVIS W IV CONTRAST Interpreted By: Pierce Boothe, STUDY: CT ABDOMEN PELVIS W IV CONTRAST; 03/01/2024 7:54 pm INDICATION: Signs/Symptoms:abdomina l pain. COMPARISON: None. ACCESSION NUMBER(S): [id number] ORDERING CLINICIAN: MONA RODRIGUEZ TECHNIQUE: CT of the abdomen and pelvis was performed. Standard contiguous axial images were obtained at 3 mm slice thickness through the abdomen and pelvis. Coronal and sagittal reconstructions at 3 mm slice thickness were performed. Intravenous contrast administered intravenously without immediate complication. FINDINGS: Hepatic steatosis. 1 cm inferior right hepatic hemangioma is seen. No radiopaque gallstones or biliary duct dilatation Unremarkable adrenal glands and spleen. Subtle peripancreatic inflammation suspicious for mild pancreatitis. This is most prominent at the pancreaticoduodenal groove. No features of pancreatic necrosis. Normal appendix. Hydronephrosis. No abnormal renal enhancement Prostate gland measures 4.7 cm Urinary bladder is mildly distended. Diverticulosis. No diverticulitis No free air. No free fluid. No suspicious osseous lesions IMPRESSION: 1. 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 Hepatic steatosis. No gallstones. No biliary duct dilatation. Mild diverticulosis. 3. Mildly enlarged prostate gland. Distended urinary bladder. MACRO: None Signed by: Pierce Boothe 03/01/2024 8:29 PM Dictation workstation: [id number] [facility] CT Abdomen and Pelvis W cont rast Keisha 03-01-2024 1. 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 Hepatic steatosis. No gallstones. No biliary duct dilatation. Mild diverticulosis. 3. Mildly enlarged prostate gland. Distended urinary bladder. MACRO: None Signed by: Pierce Boothe 03/01/2024 8:29 PM Dictation workstation: [id number] [facility] Interpreted By: Pierce Boothe, STUDY: CT ABDOMEN PELVIS W IV CONTRAST; 03/01/2024 7:54 pm INDICATION: Signs/Symptoms:abdomina l pain. COMPARISON: None. ACCESSION NUMBER(S): [id number] ORDERING CLINICIAN: MONA RODRIGUEZ TECHNIQUE: CT of the abdomen and pelvis was performed. Standard contiguous axial images were obtained at 3 mm slice thickness through the abdomen and pelvis. Coronal and sagittal reconstructions at 3 mm slice thickness were performed. Intravenous contrast administered intravenously without immediate complication. FINDINGS: Hepatic steatosis. 1 cm inferior right hepatic hemangioma is seen. No radiopaque gallstones or biliary duct dilatation Unremarkable adrenal glands and spleen. Subtle peripancreatic inflammation suspicious for mild pancreatitis. This is most prominent at the pancreaticoduodenal groove. No features of pancreatic necrosis. Normal appendix. Hydronephrosis. No abnormal renal enhancement Prostate gland measures 4.7 cm Urinary bladder is mildly distended. Diverticulosis. No diverticulitis No free air. No free fluid. No suspicious osseous lesions [facility] Pierce Boothe MD - 03/01/2024 Interpreted By: Peirce Boothe, STUDY: CT ABDOMEN PELVIS W IV CONTRAST; 03/01/2024 7:54 pm INDICATION: Signs/Symptoms:abdomina l pain. COMPARISON: None. ACCESSION NUMBER(S): [id number] ORDERING CLINICIAN: MONA RODRIGUEZ TECHNIQUE: CT of the abdomen and pelvis was performed. Standard contiguous axial images were obtained at 3 mm slice thickness through the abdomen and pelvis. Coronal and sagittal reconstructions at 3 mm slice thickness were performed. Intravenous contrast administered intravenously without immediate complication. FINDINGS: Hepatic steatosis. 1 cm inferior right hepatic hemangioma is seen. No radiopaque gallstones or biliary duct dilatation Unremarkable adrenal glands and spleen. Subtle peripancreatic inflammation suspicious for mild pancreatitis. This is most prominent at the pancreaticoduodenal groove. No features of pancreatic necrosis. Normal appendix. Hydronephrosis. No abnormal renal enhancement Prostate gland measures 4.7 cm Urinary bladder is mildly distended. Diverticulosis. No diverticulitis No free air. No free fluid. No suspicious osseous lesions IMPRESSION: 1. 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 Hepatic steatosis. No gallstones. No biliary duct dilatation. Mild diverticulosis. 3. Mildly enlarged prostate gland. Distended urinary bladder. MACRO: None Signed by: Pierce Boothe 03/01/2024 8:29 PM Dictation workstation: [id number] [facility] Work Phone: Radiology Study observation (narrative) [facility] Work Phone: CT Abdomen and Pelvis W cont rast IVOrdered By: Pierce Boothe on 03-01-2024 [facility] Work Phone: Comprehensive metabolic 2000 panelon 03-01-2024 Albumin BCP dye [Mass/Vol] 4.4 g/dL 3.4 - 5.0 g/dL [facility] ALP [Catalytic activity/Vol] 74 U/L 33 - 120 U/L [facility] ALT With P-5'-P [Catalytic activity/Vol] 27 U/L 10 - 52 U/L [facility] Comment on above: Patients treated wit h Sulfasalazine may generate falsely decreased results for ALT. Anion gap [Moles/Vol] 23 mmol/L High 10 - 2 0 mmol/L [facility] AST With P-5'-P [Catalytic activity/Vol] 23 U/L 9 - 39 U/L [facility] Bilirubin [Mass/Vol] 1.0 mg/dL 0.0 - 1 .2 mg/dL [facility] Calcium [Mass/Vol] 8.6 mg/dL 8.6 - 10. 3 mg/dL [facility] Chloride [Moles/Vol] 106 mmol/L 98 - 10 7 mmol/L [facility] CO2 [Moles/Vol] 12 mmol/L Low 21 - 32 mmol/L [facility] Creatinine [Mass/Vol] 1.11 mg/dL 0.50 - 1.30 mg/dL [facility] eGFR - PINF [facility] Comment on above: Calculations of luis felipe mated GFR are performed using the 2020 CKD-EPI Study Refit equation without the race variable for the IDMS-Traceable creatinine methods. https://jasn.asnjournals.org/content//ASN.81110 93031 Glucose [Mass/Vol] 185 mg/dL High 74 - 99 mg/dL [facility] Interpretation and review of laboratory results Abnormal [facility] Potassium [Moles/Vol] 4.7 mmol/L 3.5 - 5.3 mmol/L [facility] Protein [Mass/Vol] 6.9 g/dL 6.4 - 8.2 g/dL [facility] Sodium [Moles/Vol] 136 mmol/L 136 - 145 mmol/L [facility] Urea nitrogen [Mass/Vol] 15 mg/dL 6 - 23 mg/dL [facility] Albumin BCP dye [Mass/Vol] 4.4 g/dL Normal 3.4-5.0 [facility] Comment on above: Performed By: #### 2 4323-8 ####MCLAUGHLIN VAL ([id number])[facility] ([facility])[address] [place] [address] ALP [Catalytic activity/Vol] 74 U/L Normal 33-120 [facility] Comment on above: Performed By: #### 2 4323-8 ####LISSETTE NEAL ([id number])[facility] ([facility])[address] [place] [address] ALT With P-5'-P [Catalytic activity/Vol] 27 U/L Normal 10-52 [facility] Comment on above: Result Comment: Marilu ents treated with Sulfasalazine may generate falsely decreased results for ALT. Performed By: #### 2 432-8 ####LISSETTE NEAL ([id number])[facility] ([facility])[address] [place] [address] 93042 Anion gap [Moles/Vol] 23 mmol/L High 10-20 [facility] Comment on above: Performed By: #### 2 432-8 ####LISSETTE NEAL ([id number])[facility] ([facility])[address] [place] [address] 36249 AST With P-5'-P [Catalytic activity/Vol] 23 U/L Normal 9-39 [facility] Comment on above: Performed By: #### 2 432-8 ####LISSETTE NEAL ([id number])[facility] ([facility])[address] [place] [address] Bilirubin [Mass/Vol] 1.0 mg/dL Normal 0.0-1.2 [facility] Comment on above: Performed By: #### 2 432-8 ####LISSETTE NEAL ([id number])[facility] ([facility])[address] [place] [address] Calcium [Mass/Vol] 8.6 mg/dL Normal 8.6-10.3 [facility] Comment on above: Performed By: #### 2 4323-8 ####LISSETTE NEAL ([id number])[facility] ([facility] [place] [address] Chloride [Moles/Vol] 106 mmol/L Normal 98-107 [facility] Comment on above: Performed By: #### 2 4323-8 ####LISSETTE NEAL ([id number])[facility] ([facility])[address] [place] [address] 52934 CO2 [Moles/Vol] 12 mmol/L Low 21-32 [facility] Comment on above: Performed By: #### 2 4323-8 ####LISSETTE NEAL ([id number])[facility] ([facility])[address] [place] [address] 08498 Creatinine [Mass/Vol] 1.11 mg/dL Normal 0.50-1.30 [facility] Comment on above: Performed By: #### 2 4323-8 ####LISSETTE NEAL ([id number])[facility] ([facility])[address] [place] [address] 59824 GFR/1.73 sq M.predicted MDRD (S/P/Bld) [Vol rate/Area] mL/min/{1.73_m2} Normal >60 [facility] Comment on above: Result Comment: Calc ulations of estimated GFR are performed using the 2020 CKD-EPI Study Refit equation without the race variable for the IDMS-Traceable creatinine methods. https://jasn.asnjournals.org/content/early//ASN.74640 82190 Performed By: #### 2 4323-8 ####LISSETTE NEAL ([id number])[facility] ([facility])[address] [place] [address] 59617 Glucose [Mass/Vol] 185 mg/dL High 74-99 [facility] Comment on above: Performed By: #### 2 4323-8 ####LISSETTE NEAL ([id number])[facility] ([facility])[address] [place] [address] 48220 Potassium [Moles/Vol] 4.7 mmol/L Normal 3.5-5.3 [facility] Comment on above: Performed By: #### 2 4323-8 ####LISSETTE NEAL ([id number])[facility] ([facility])[address] [place] [address] 48076 Protein [Mass/Vol] 6.9 g/dL Normal 6.4-8.2 [facility] Comment on above: Performed By: #### 2 4323-8 ####LISSETTE NEAL ([id number])[facility] ([facility])[address] [place] [address] 30344 Sodium [Moles/Vol] 136 mmol/L Normal 136-145 [facility] Comment on above: Performed By: #### 2 4323-8 ####LISSETTE NEAL ([id number])[facility] ([facility])[address] [place] [address] 79855 Urea nitrogen [Mass/Vol] 15 mg/dL Normal 6-23 [facility] Comment on above: Performed By: #### 2 4323-8 ####LISSETTE NEAL ([id number])[facility] ([facility])[address] [place] [address] 92953 Albumin BCP dye [Mass/Vol] 5.0 g/dL 3.4 - 5.0 g/dL [facility] ALP [Catalytic activity/Vol] 89 U/L 33 - 120 U/L [facility] ALT With P-5'-P [Catalytic activity/Vol] 34 U/L 10 - 52 U/L [facility] Comment on above: Patients treated wit h Sulfasalazine may generate falsely decreased results for ALT. Anion gap [Moles/Vol] 33 mmol/L High 10 - 2 0 mmol/L [facility] AST With P-5'-P [Catalytic activity/Vol] 26 U/L 9 - 39 U/L [facility] Bilirubin [Mass/Vol] 1.3 mg/dL High 0.0 - 1 .2 mg/dL [facility] Calcium [Mass/Vol] 9.9 mg/dL 8.6 - 10. 3 mg/dL [facility] Chloride [Moles/Vol] 99 mmol/L 98 - 10 7 mmol/L [facility] CO2 [Moles/Vol] 10 mmol/L Critically low 21 - 32 mmol/L [facility] Creatinine [Mass/Vol] 1.42 mg/dL High 0.50 - 1.30 mg/dL [facility] GFR/1.73 sq M.predicted among non-blacks MDRD (S/P/Bld) [Vol rate/Area] 69 mL/min/{1.73_m2} - PINF [facility] Comment on above: Calculations of luis felipe mated GFR are performed using the 2020 CKD-EPI Study Refit equation without the race variable for the IDMS-Traceable creatinine methods. https://jasn.asnjournals.org/content/early//ASN.48647 37345 Glucose [Mass/Vol] 178 mg/dL High 74 - 99 mg/dL [facility] Potassium [Moles/Vol] 4.5 mmol/L 3.5 - 5.3 mmol/L [facility] Protein [Mass/Vol] 8.1 g/dL 6.4 - 8.2 g/dL [facility] Sodium [Moles/Vol] 137 mmol/L 136 - 145 mmol/L [facility] Urea nitrogen [Mass/Vol] 19 mg/dL 6 - 23 mg/dL [facility] Albumin BCP dye [Mass/Vol] 5.0 g/dL Normal 3.4-5.0 [facility] Comment on above: Performed By: #### 2 4323-8 #### LISSETTE NEAL ([id number]) [facility] ([facility]) [address] [place] [address] ALP [Catalytic activity/Vol] 89 U/L Normal 33-120 [facility] Comment on above: Performed By: #### 2 4323-8 #### LISSETTE NEAL ([id number]) [facility] ([facility]) [facility] [place] [address] ALT With P-5'-P [Catalytic activity/Vol] 34 U/L Normal 10-52 [facility] Comment on above: Result Comment: Marilu ents treated with Sulfasalazine may generate falsely decreased results for ALT. Performed By: #### 2 4323-8 #### LISSETTE NEAL ([id number]) [facility] ([facility]) [address] [place] [address] Anion gap [Moles/Vol] 33 mmol/L High 10-20 [facility] Comment on above: Performed By: #### 2 432-8 #### LISSETTE NEAL (55502) [facility] ([facility]) [address] [place] [address] AST With P-5'-P [Catalytic activity/Vol] 26 U/L Normal 9-39 [facility] Comment on above: Performed By: #### 2 432-8 #### LISSETTE NEAL ([id number]) [facility] ([facility]) [address] [place] [address] Bilirubin [Mass/Vol] 1.3 mg/dL High 0.0-1.2 [facility] Comment on above: Performed By: #### 2 4322-8 #### LISSETTE NEAL ([id number]) [facility] ([facility]) [address] [place] [address] 66241 Calcium [Mass/Vol] 9.9 mg/dL Normal 8.6-10.3 [facility] Comment on above: Performed By: #### 2 4322-8 #### LISSETTE NEAL ([id number]) [facility] ([facility]) [address] [place] [address] 72712 Chloride [Moles/Vol] 99 mmol/L Normal 98-107 [facility] Comment on above: Performed By: #### 2 4322-8 #### LISSETTE NEAL ([id number]) [facility] ([facility]) [address] [place] [address] 86894 CO2 [Moles/Vol] 10 mmol/L Critically low 21-32 [facility] Comment on above: Performed By: #### 2 4322-8 #### LISSETTE NEAL ([id number]) [facility] ([facility]) [address] [place] [address] 28763 Creatinine [Mass/Vol] 1.42 mg/dL High 0.50-1.30 [facility] Comment on above: Performed By: #### 2 432-8 #### LISSETTE NEAL ([id number]) [facility] ([facility]) [facility] [place] [address] Glomerular filtration rate/1.73 sq M.predicted 69 mL/min/1.73m*2 Normal >60 [facility] Comment on above: Result Comment: Calc ulations of estimated GFR are performed using the 2020 CKD-EPI Study Refit equation without the race variable for the IDMS-Traceable creatinine methods. https://jasn.asnjournals.org/content/early//ASN.51524 43444 Performed By: #### 2 4323-8 #### LISSETTE NEAL (18601) [facility] ([facility]) [address] [place] [address] 71775 Glucose [Mass/Vol] 178 mg/dL High 74-99 [facility] Comment on above: Performed By: #### 2 432-8 #### LISSETTE NEAL ([id number]) [facility] ([facility]) [address] [place] [address] 70399 Potassium [Moles/Vol] 4.5 mmol/L Normal 3.5-5.3 [facility] Comment on above: Performed By: #### 2 4323-8 #### LISSETTE NEAL ([id number]) [facility] ([facility]) [address] [place] [address] 27525 Protein [Mass/Vol] 8.1 g/dL Normal 6.4-8.2 [facility] Comment on above: Performed By: #### 2 4323-8 #### LISSETTE NEAL ([id number]) [facility] ([facility]) [address] [place] [address] 46736 Sodium [Moles/Vol] 137 mmol/L Normal 136-145 [facility] Comment on above: Performed By: #### 2 4323-8 #### LISSETTE NEAL (45556) [facility] ([facility]) [address] [place] [address] 40965 Urea nitrogen [Mass/Vol] 19 mg/dL Normal 6-23 [facility] Comment on above: Performed By: #### 2 4323-8 #### MCLAUGHLIN VAL ([id number]) [facility] ([facility]) [address] [place] [address] ECG 12-LEADon 03-01-2024 ECG 12-LEAD Ventricular Rate 139 Atrial Rate 139 P-R Interval 130 QRS Duration 78 Q-T Interval 296 QTC Calculation(Bazett) 450 P [place] 56 R [place] 65 T [place] 48 QRS Count 23 Q Onset 218 P Onset 153 P Offset 202 T Offset 366 QTC Fredericia 391 Diagnosis Sinus tachycardia Anterolateral infarct , age undetermined Abnormal ECG No previous ECGs available See ED provider note for full interpretation and clinical correlation Confirmed by Kaylan Rubio ([id number]) on 03/02/2024 11:21:20 AM Normal [facility] FLUAV and FLUBV RNA JUAN J+prob e Nom (Unsp spec)on 03-01-2024 FLUAV RNA JUAN J+probe Ql (Resp) Not detected Not Detected [facility] FLUBV RNA JUAN J+probe Ql (Resp) Not detected Not Detected [facility] This assay is an in vitro diagnostic multiplex nucleic acid amplification test for the detection and discrimination of Influenza A & B from nasopharyngeal specimens, and has been validated for use at [facility]. Negative results do not preclude Influenza A/B infections, and should not be used as the sole basis for diagnosis, treatment, or other management decisions. If Influenza A/B and RSV PCR results are negative, testing for Parainfluenza virus, Adenovirus and Metapneumovirus is routinely performed for [facility] pediatric oncology and intensive care inpatients, and is available on other patients by placing an add-on request. [facility] FLUAV RNA JUAN J+probe Ql (Resp) Not detected Normal Not Detected [facility] Comment on above: Order Comment: This assay is an in vitro diagnostic multiplex nucleic acid amplification test for the detection and discrimination of Influenza A & B from nasopharyngeal specimens, and has been validated for use at [facility]. Negative results do not preclude Influenza A/B infections, and should not be used as the sole basis for diagnosis, treatment, or other management decisions. If Influenza A/B and RSV PCR results are negative, testing for Parainfluenza virus, Adenovirus and Metapneumovirus is routinely performed for [facility] pediatric oncology and intensive care inpatients, and is available on other patients by placing an add-on request. Performed By: #### 4 8509-4 #### LISSETTE NEAL ([id number]) [facility] ([facility]) [address] [place] [address]11 FLUBV RNA JUAN J+probe Ql (Resp) Not detected Normal Not Detected [facility] Comment on above: Order Comment: This assay is an in vitro diagnostic multiplex nucleic acid amplification test for the detection and discrimination of Influenza A & B from nasopharyngeal specimens, and has been validated for use at [facility]. Negative results do not preclude Influenza A/B infections, and should not be used as the sole basis for diagnosis, treatment, or other management decisions. If Influenza A/B and RSV PCR results are negative, testing for Parainfluenza virus, Adenovirus and Metapneumovirus is routinely performed for [facility] pediatric oncology and intensive care inpatients, and is available on other patients by placing an add-on request. Performed By: #### 4 8509-4 #### LISSETTE NEAL ([id number]) [facility] ([facility]) [address] [place] [address] 91633 Gas panel (BldV)on 4 Base excess Calc (BldV) [Moles/Vol] -11.40859 mmol/L Low -2.0 - 3.0 mmol/L [facility] CO2 (BldV) [Partial pressure] 22 mm[Hg] Low [facility] HCO3 (Bld) [Moles/Vol] 11.9 mmol/L Low 22.0 - 26.0 mmol/L [facility] Inhaled oxygen concentration 21 % [facility] Interpretation and review of laboratory results Abnormal [facility] Oxygen (BldV) [Partial pressure] 49 mm[Hg] High [facility] Oxygen saturation in Venous blood 76 % High 45 - 75 % [facility] Oxyhemoglobin (BldV) [Mass fraction] 74.2 % 45.0 - 75.0 % [facility] pH (BldV) 7.34 [pH] 7.33 - 7.43 pH [facility] Base excess Calc (BldV) [Moles/Vol] -11.34338 mmol/L Low -2.0-3.0 [facility] Comment on above: Performed By: #### 2 4339-4 #### LISSETTE NEAL ([id number]) [facility] ([facility]) [address] [place] [address] 47584 CO2 (BldV) [Partial pressure] 22 mm Hg Low 41-51 [facility] Comment on above: Performed By: #### 2 4339-4 #### LISSETTE NEAL ([id number]) [facility] ([facility]) [address] [place] [address] 15663 HCO3 (Bld) [Moles/Vol] 11.9 mmol/L Low 22.0-26.0 [facility] Comment on above: Performed By: #### 2 4339-4 #### LISSETTE NEAL ([id number]) [facility] ([facility]) [address] [place] [address] 67066 Inhaled oxygen concentration 21 % Normal [facility] Comment on above: Performed By: #### 2 4339-4 #### LISSETTE NEAL ([id number]) [facility] ([facility]) [address] [place] [address] 34254 Oxygen (BldV) [Partial pressure] 49 mm Hg High 35-45 [facility] Comment on above: Performed By: #### 2 4339-4 #### LISSETTE NEAL ([id number]) [facility] ([facility]) [address] [place] [address] 08897 Oxygen saturation in Venous blood 76 % High 45-75 [facility] Comment on above: Performed By: #### 2 4339-4 #### LISSETTE NEAL ([id number]) [facility] ([facility]) [address] [place] [address] 76672 Oxyhemoglobin (BldV) [Mass fraction] 74.2 % Normal 45.0-75.0 [facility] Comment on above: Performed By: #### 2 4339-4 #### LISSETTE NEAL ([id number]) [facility] ([facility]) [address] [place] [address] 67733 pH (BldV) 7.34 [pH] Normal 7.33-7.43 [facility] Comment on above: Performed By: #### 2 4339-4 #### LISSETTE NEAL ([id number]) [facility] ([facility]) [address] [place], [place] [phone] Glucose Test strip manual (B ld) [Mass/Vol]on 03-01-2024 Glucose [Mass/Vol] 151 mg/dL High 74 - 99 mg/dL [facility] Interpretation and review of laboratory results Abnormal [facility] Glucose [Mass/Vol] 151 mg/dL High 74-99 [facility] Comment on above: Performed By: #### 2 341-6 ####LISSETTE NEAL ([id number])[facility] ([facility])[address] [place] [address] HbA1c (Bld) [Mass fraction]o n 03-01-2024 Average glucose Estimated from glycated hemoglobin (Bld) [Mass/Vol] 137 mg/dL Normal Not Established [facility] Comment on above: Order Comment: Diagn osis of Sxkxtjhu-IwdnblZsx-Oaqbumit: < or = 5.6%Increased risk for developing diabetes: 5.7-6.4%Diagnostic of diabetes: > or = 6.5% Performed By: #### 2 4339-4 #### LISSETTE NEAL ([id number]) [facility] ([facility]) [address] [place], [place] [phone] Hemoglobin A1c/Hemoglobin.to adarsh 03-01-2024 HbA1c (Bld) [Mass fraction] 6.4 % High See comment [facility] Comment on above: Order Comment: Diagn osis of Wyvtuzus-UwwpgyWny-Mvjshnlm: < or = 5.6%Increased risk for developing diabetes: 5.7-6.4%Diagnostic of diabetes: > or = 6.5% Performed By: #### 2 4339-4 #### LISSETTE NEAL ([id number]) [facility] ([facility]) [address] [place] [address] 09614 Lactateon 03-01-2024 Lactate [Moles/Vol] 1.1 mmol/L 0.4 - 2. 0 mmol/L [facility] Lactate [Moles/Vol] 1.1 mmol/L Normal 0.4-2.0 [facility] Comment on above: Order Comment: Venip uncture immediately after or during the administration of Metamizole may lead to falsely low results. Testing should be performed immediately prior to Metamizole dosing. Performed By: #### 2 524-7 #### MCLAUGHLIN VAL ([id number]) [facility] ([facility]) [address] [place] [address] Lactate [Moles/Vol]on 2023 Interpretation and review of laboratory results Normal [facility] Venipuncture immediately after or during the administration of Metamizole may lead to falsely low results. Testing should be performed immediately prior to Metamizole dosing. [facility] Lipaseon 03-01-2024 Lipase [Catalytic activity/Vol] 267 U/L High 9 - 82 U/L [facility] Lipase [Catalytic activity/V ol]on 03-01-2024 Venipuncture immediately after or during the administration of Metamizole may lead to falsely low results. Testing should be performed immediately prior to Metamizole dosing. [facility] Lipid 1996 panelon Cholesterol [Mass/Vol] 204 mg/dL High 0 - 199 mg/dL [facility] Comment on above: Age Desirable Borderline High High 0-19 Y 0 - 169 170 - 199 >/= 200 20-24 Y 0 - 189 190 - 224 >/= 225 >24 Y 0 - 199 200 - 239 >/= 240 All ranges are based on fasting samples. Specific therapeutic targets will vary based on patient-specific cardiac risk. Pediatric guidelines reference:Pediatrics 2011, 128(S5).Adult guidelines reference: NCEP ATPIII Guidelines,TODD 2001, 258:2486-97 Venipuncture immediately after or during the administration of Metamizole may lead to falsely low results. Testing should be performed immediately prior to Metamizole dosing. Cholesterol in HDL [Mass/Vol] 74.0 mg/dL [facility] Comment on above: Age Very Low Low Normal High 0-19 Y < 35 < 40 40-45 ---- 20-24 Y ---- < 40 >45 ---- >24 Y ---- < 40 40-60 >60 Cholesterol in LDL [Mass/Vol] 87 mg/dL NINF - 99 mg/dL [facility] Comment on above: Near Borderline AGE Desirable Optimal High High Very High 0-19 Y 0 - 109 --- 110-129 >/= 130 ---- 20-24 Y 0 - 119 --- 120-159 >/= 160 ---- >24 Y 0 - 99 100-129 130-159 160-189 >/=190 Cholesterol in VLDL [Mass/Vol] 43 mg/dL High 0 - 40 mg/dL [facility] Cholesterol.total/Chol esterol in HDL [Mass ratio] 2.8 {ratio} [facility] Comment on above: Ref Values Desirable < 3.4 High Risk > 5.0 Interpretation and review of laboratory results Abnormal [facility] Non HDL Cholesterol 130 mg/dL 0 - 149 mg/dL [facility] Comment on above: Age Desirable Borderline High High Very High 0-19 Y 0 - 119 120 - 144 >/= 145 >/= 160 20-24 Y 0 - 149 150 - 189 >/= 190 ---- >24 Y 30 mg/dL above LDL Cholesterol goal Triglyceride [Mass/Vol] 214 mg/dL High 0 - 149 mg/dL [facility] Comment on above: Age Desirable Borderline High High Very High 0 D-90 D 19 - 174 ---- ---- ---- 91 D- 9 Y 0 - 74 75 - 99 >/= 100 ---- 10-19 Y 0 - 89 90 - 129 >/= 130 ---- 20-24 Y 0 - 114 115 - 149 >/= 150 ---- >24 Y 0 - 149 150 - 199 200- 499 >/= 500 Venipuncture immediately after or during the administration of Metamizole may lead to falsely low results. Testing should be performed immediately prior to Metamizole dosing. [facility] Cholesterol [Mass/Vol] 204 mg/dL High 0-199 [facility] Comment on above: Result Comment: Age Desirable Borderline High High 0-19 Y 0 - 169 170 - 199 >/= 200 20-24 Y 0 - 189 190 - 224 >/= 225 >24 Y 0 - 199 200 - 239 >/= 240 All ranges are based on fasting samples. Specific therapeutic targets will vary based on patient-specific cardiac risk. Pediatric guidelines reference:Pediatrics 2011, 128(S5).Adult guidelines reference: NCEP ATPIII Guidelines,TODD 2001, 258:2486-97 Venipuncture immediately after or during the administration of Metamizole may lead to falsely low results. Testing should be performed immediately prior to Metamizole dosing. Performed By: #### 2 4331-1 ####LISSETTE NEAL ([id number])[facility] ([facility] [place] [address] Cholesterol in HDL [Mass/Vol] 74.0 mg/dL Normal [facility] Comment on above: Result Comment: Age Very Low Low Normal High 0-19 Y < 35 < 40 40-45 ---- 20-24 Y ---- < 40 >45 ---- >24 Y ---- < 40 40-60 >60 Performed By: #### 2 4331-1 ####LISSETTE NEAL ([id number])[facility] ([facility] [place] [address] Cholesterol in LDL [Mass/Vol] 87 mg/dL Normal <=99 [facility] Comment on above: Result Comment: Near Borderline AGE Desirable Optimal High High Very High 0-19 Y 0 - 109 --- 110-129 >/= 130 ---- 20-24 Y 0 - 119 --- 120-159 >/= 160 ---- >24 Y 0 - 99 100-129 130-159 160-189 >/=190 Performed By: #### 2 4331-1 ####LISSETTE NEAL ([id number])[facility] ([facility] [place] [address] Cholesterol in VLDL [Mass/Vol] 43 mg/dL High 0-40 [facility] Comment on above: Performed By: #### 2 4331-1 ####LISSETTE NEAL ([id number])[facility] ([facility] [place] [address] CHOLESTEROL/HDL RATIO 2.8 Normal [facility] Comment on above: Result Comment: Ref Values Desirable < 3.4 High Risk > 5.0 Performed By: #### 2 4331-1 ####LISSETTE NEAL ([id number])[facility] ([facility])[address] [place], [place] [phone] NON HDL CHOLESTEROL 130 mg/dL Normal 0-149 [facility] Comment on above: Result Comment: Age Desirable Borderline High High Very High 0-19 Y 0 - 119 120 - 144 >/= 145 >/= 160 20-24 Y 0 - 149 150 - 189 >/= 190 ---- >24 Y 30 mg/dL above LDL Cholesterol goal Performed By: #### 2 4331-1 ####LISSETTE NEAL ([id number])[facility] ([facility])[address] [place] [address] Triglyceride [Mass/Vol] 214 mg/dL High 0-149 [facility] Comment on above: Result Comment: Age Desirable Borderline High High Very High 0 D-90 D 19 - 174 ---- ---- ---- 91 D- 9 Y 0 - 74 75 - 99 >/= 100 ---- 10-19 Y 0 - 89 90 - 129 >/= 130 ---- 20-24 Y 0 - 114 115 - 149 >/= 150 ---- >24 Y 0 - 149 150 - 199 200- 499 >/= 500 Venipuncture immediately after or during the administration of Metamizole may lead to falsely low results. Testing should be performed immediately prior to Metamizole dosing. Performed By: #### 2 4331-1 ####LISSETTE NEAL ([id number])[facility] ([facility])[address] [place] [address] No Panel Informationon 03-01 Interpretation and review of laboratory results Normal [facility] Interpretation and review of laboratory results Abnormal [facility] Potassiumon 03-01-2024 Potassium [Moles/Vol] 4.9 mmol/L Normal 3.5-5.3 [facility] Comment on above: Order Comment: [facility] [phone] to schedule Performed By: #### 2 823-3 ####LISSETTE NEAL ([id number])[facility] ([facility])[address] [phone] Potassium - 2 hours after IV infusion completeon 03-01-2024 Potassium [Moles/Vol] 4.9 mmol/L 3.5 - 5.3 mmol/L [facility] Potassium [Moles/Vol]on Interpretation and review of laboratory results Normal [facility] RSV PCRon 03-01-2024 RSV RNA JUAN J+probe Ql (Resp) Not detected Not Detected [facility] RSV RNA JUAN J+probe Ql (Resp)o n 03-01-2024 This assay is an FDA-cleared, in vitro diagnostic nucleic acid amplification test for the detection of RSV from nasopharyngeal specimens, and has been validated for use at [facility]. Negative results do not preclude RSV infections, and should not be used as the sole basis for diagnosis, treatment, or other management decisions. If Influenza A/B and RSV PCR results are negative, testing for Parainfluenza virus, Adenovirus and Metapneumovirus is routinely performed for pediatric oncology and intensive care inpatients at [facility], and is available on other patients by placing an add-on request. [facility] Respiratory syncytial virus RNAon 03-01-2024 RSV RNA JUAN J+probe Ql (Resp) Not detected Normal Not Detected [facility] Comment on above: Order Comment: This assay is an FDA-cleared, in vitro diagnostic nucleic acid amplification test for the detection of RSV from nasopharyngeal specimens, and has been validated for use at [facility]. Negative results do not preclude RSV infections, and should not be used as the sole basis for diagnosis, treatment, or other management decisions. If Influenza A/B and RSV PCR results are negative, testing for Parainfluenza virus, Adenovirus and Metapneumovirus is routinely performed for pediatric oncology and intensive care inpatients at [facility], and is available on other patients by placing an add-on request. Performed By: #### 9 2131-2 #### LISSETTE NEAL ([id number]) [facility] ([facility]) [address] [phone] SARS coronavirus 2 RNAon SARS-CoV-2 (COVID-19) RNA JUAN J+probe Ql (Resp) Not detected Normal Not Detected [facility] Comment on above: Order Comment: [facility] 89 to schedule Performed By: #### 9 4500-6 ####LISSETTE NEAL ([id number])[facility] ([facility] [place] [address] SARS-CoV-2 (COVID-19) RNA NA A+probe Ql (Resp)on 03-01-2024 This assay has recei alan FDA Emergency Use Authorization (EUA) and is only authorized for the duration of time that circumstances exist to justify the authorization of the emergency use of in vitro diagnostic tests for the detection of SARS-CoV-2 virus and/or diagnosis of COVID-19 infection under section 564(b)(1) of the Act, 21 U.S.C. 360bbb-3(b)(1). This assay is an in vitro diagnostic nucleic acid amplification test for the qualitative detection of SARS-CoV-2 from nasopharyngeal specimens and has been validated for use at [facility]. Negative results do not preclude COVID-19 infections and should not be used as the sole basis for diagnosis, treatment, or other management decisions. [facility] Sars-CoV-2 PCRon 03-01-2024 SARS-CoV-2 (COVID-19) RNA JUAN J+probe Ql (Resp) Not detected Not Detected [facility] TSHon 03-01-2024 TSH Qn 2.87 m[IU]/L [facility] TSH Qnon 03-01-2024 Interpretation and review of laboratory results Normal [facility] TSH testing is performed using different testing methodology at [facility] than at other [facility]. Direct result comparisons should only be made within the same method. [facility] Thyrotropinon 03-01-2024 TSH Qn 2.87 m[IU]/L Normal 0.44-3.98 [facility] Comment on above: Order Comment: [facility] [phone] to schedule Performed By: #### 3 016-3 ####LISSETTE NEAL ([id number])[facility] ([facility] [place] [address] Triacylglycerol lipaseon Lipase [Catalytic activity/Vol] 267 U/L High 9-82 [facility] Comment on above: Order Comment: Venip uncture immediately after or during the administration of Metamizole may lead to falsely low results. Testing should be performed immediately prior to Metamizole dosing. Performed By: #### 3 040-3 #### MCLAUGHLIN VAL ([id number]) [facility] ([facility]) [address] [phone] Urinalysis complete W Reflex Culture panel (U)on 03-01-2024 Appearance (U) Clear Clear [facility] Bilirubin (U) [Mass/Vol] Negative NEGATIVE [facility] Color (U) Light-Yellow Light-Yellow, Yellow, Dark-Yellow [facility] Glucose Auto test strip (U) [Mass/Vol] 300 (3+) Abnormal Normal mg/dL [facility] Hyaline casts Auto (Urine sed) [#/Area] 2+ Abnormal NONE /LPF [facility] Interpretation and review of laboratory results Abnormal [facility] Ketones (U) [Mass/Vol] OVER (4+) Abnormal NEGAT PATRICK mg/dL [facility] Leukocyte esterase Auto test strip Ql (U) Negative NEGATIVE [facility] Mucus Auto (Urine sed) [#/Area] FEW Reference range not established. /LPF [facility] Nitrite Auto test strip Ql (U) Negative NEGATIVE [facility] pH (U) 6.0 [pH] 5.0, 5.5, 6.0, 6.5, 7.0, 7.5, 8.0 [facility] Protein (U) [Mass/Vol] 300 (3+) Abnormal NEGAT PATRICK, 10 (TRACE), 20 (TRACE) mg/dL [facility] RBC (U) [#/Vol] 0.03 (TRACE) Abnormal NEGATIVE [facility] RBC Auto (Urine sed) [#/Area] 1-2 NONE, 1-2, 3-5 /HPF [facility] Specific gravity (U) [Rel density] 1.041 Abnormal 1.005 - 1.035 [facility] Urobilinogen (U) [Mass/Vol] 2 (1+) Abnormal Normal mg/dL [facility] Comment on above: Due to a manufacturi ng issue, low positive urobilinogen results may be falsely positive. Correlate with urine bilirubin and additional clinical/laboratory findings to assess the risk of hemolytic anemia or liver disease. If clinically indicated, repeat testing with an alternate method is available by contacting the laboratory within 24 hours. Some pigments and medications may cause a false positive urobilinogen. WBC Auto (Urine sed) [#/Area] 1-5 1-5, NONE /HPF [facility] OVER is reported whe n the result is greater than the clinically reportable range. [facility] Appearance (U) Clear Normal Clear [facility] Comment on above: Order Comment: [facility] to schedule Performed By: #### 5 8077-9 ####LISSETTE NEAL ([id number])[facility] ([facility])[address] [place] [address] Bilirubin (U) [Mass/Vol] Negative Normal NEGATIVE [facility] Comment on above: Order Comment: [facility] to schedule Performed By: #### 5 8077-9 ####LISSETTE NEAL ([id number])[facility] ([facility])[address] [place], [place] [phone] Color (U) Light-Yellow Normal Light-Yellow, Yellow, Dark-Yellow [facility] Comment on above: Order Comment: [facility] to schedule Performed By: #### 5 8077-9 ####LISSETTE NEAL ([id number])[facility] ([facility])[address] [place] [address] Glucose Auto test strip (U) [Mass/Vol] 300 (3+) Abnormal Normal [facility] Comment on above: Order Comment: [facility] to schedule Performed By: #### 5 8077-9 ####LISSETTE NEAL ([id number])[facility] ([facility])[address] [place] [address] Hyaline casts Auto (Urine sed) [#/Area] 2+ /LPF Abnormal NONE [facility] Comment on above: Performed By: #### 5 8077-9 ####LISSETTE NEAL ([id number])[facility] ([facility])[address] [place] [address] Ketones (U) [Mass/Vol] OVER (4+) Abnormal NEGATIVE [facility] Comment on above: Order Comment: [facility] to schedule Performed By: #### 5 8077-9 ####LISSETTE NEAL ([id number])[facility] ([facility])[address] [place] [address] Leukocyte esterase Auto test strip Ql (U) Negative Normal NEGATIVE [facility] Comment on above: Order Comment: [facility] to schedule Performed By: #### 5 8077-9 ####LISSETTE NEAL ([id number])[facility] ([facility])[address] [place] [address] Mucus Auto (Urine sed) [#/Area] FEW Normal Reference range not established. [facility] Comment on above: Performed By: #### 5 8077-9 ####LISSETTE NEAL ([id number])[facility] ([facility])[address] [place] [address] Nitrite Auto test strip Ql (U) Negative Normal NEGATIVE [facility] Comment on above: Order Comment: [facility] to schedule Performed By: #### 5 8077-9 ####LISSETTE NEAL ([id number])[facility] ([facility])[address] [place] [address] pH (U) 6.0 [pH] Normal 5.0, 5.5, 6.0, 6.5, 7.0, 7.5, 8.0 [facility] Comment on above: Order Comment: [facility] to schedule Performed By: #### 5 8077-9 ####LISSETTE NEAL ([id number])[facility] ([facility])[address] [place], [place] [phone] Protein (U) [Mass/Vol] 300 (3+) Abnormal NEGAT PATRICK, 10 (TRACE), 20 (TRACE) [facility] [facility] Comment on above: Order Comment: [facility] to schedule Performed By: #### 5 8077-9 ####LISSETTE NEAL ([id number])[facility] ([facility])[address] [place] [address] RBC (U) [#/Vol] 0.03 (TRACE) Abnormal NEGATIVE [facility] Comment on above: Order Comment: [facility] to schedule Performed By: #### 5 8077-9 ####LISSETTE NEAL ([id number])[facility] ([facility])[address] [place] [address] RBC Auto (Urine sed) [#/Area] 1-2 Normal NONE, 1-2, 3-5 [facility] Comment on above: Performed By: #### 5 8077-9 ####LISSETTE NEAL ([id number])[facility] ([facility])[address] [place] [address] Specific gravity (U) [Rel density] 1.041 Normal 1.005-1.035 [facility] Comment on above: Order Comment: [facility] to schedule Performed By: #### 5 8077-9 ####LISSETTE NEAL ([id number])[facility] ([facility])[address] [place] [address] Urobilinogen (U) [Mass/Vol] 2 (1+) Abnormal Normal [facility] Comment on above: Order Comment: [facility] to schedule Result Comment: Due to a manufacturing issue, low positive urobilinogen results may be falsely positive. Correlate with urine bilirubin and additional clinical/laboratory findings to assess the risk of hemolytic anemia or liver disease. If clinically indicated, repeat testing with an alternate method is available by contacting the laboratory within 24 hours. Some pigments and medications may cause a false positive urobilinogen. Performed By: #### 5 8077-9 ####LISSETTE NEAL ([id number])[facility] ([facility])[address] [place] [address] WBC Auto (Urine sed) [#/Area] 1-5 Normal 1-5, NONE [facility] Comment on above: Performed By: #### 5 8077-9 ####LISSETTE NEAL ([id number])[facility] ([facility] [place] [address] Comprehensive metabolic 2000 panelon 12-15-2023 Albumin BCP dye [Mass/Vol] 4.6 g/dL Normal 3.4-5.0 [facility] Comment on above: Performed By: #### 5 3315-8 #### TRE Nichols (52371) [facility] ([facility]) [address] [place] [address] ALP [Catalytic activity/Vol] 80 U/L Normal 33-120 [facility] Comment on above: Performed By: #### 5 3315-8 #### TRE ROSE L ([id number]) [facility] ([facility]) [address] [place] [address] ALT With P-5'-P [Catalytic activity/Vol] 61 U/L High 10-52 [facility] Comment on above: Result Comment: Marilu ents treated with Sulfasalazine may generate falsely decreased results for ALT. Performed By: #### 5 3315-8 #### TRE ROSE L ([id number]) [facility] ([facility]) [address] [place] [address] Anion gap [Moles/Vol] 15 mmol/L Normal 10-20 [facility] Comment on above: Performed By: #### 5 3315-8 #### TRE ROSE L ([id number]) [facility] ([facility]) [address] [place] [address] AST With P-5'-P [Catalytic activity/Vol] 57 U/L High 9-39 [facility] Comment on above: Performed By: #### 5 3315-8 #### TRE SAINZMOTZER L (04435) [facility] ([facility]) [address] [place] [address] Bilirubin [Mass/Vol] 0.8 mg/dL Normal 0.0-1.2 [facility] Comment on above: Performed By: #### 5 3315-8 #### TRE HENRYER L ([id number]) [facility] ([facility]) [address] [place] [address] Calcium [Mass/Vol] 9.8 mg/dL Normal 8.6-10.6 [facility] Comment on above: Performed By: #### 5 3315-8 #### TRE SAINZMOTZER L (47798) [facility] ([facility]) [address] [place] [address] Chloride [Moles/Vol] 98 mmol/L Normal 98-107 [facility] Comment on above: Performed By: #### 5 3315-8 #### TRE SAINZMOJESI L (75030) [facility] ([facility]) [address] [place] [address] CO2 [Moles/Vol] 32 mmol/L Normal 21-32 [facility] Comment on above: Performed By: #### 5 3315-8 #### TRE ROSE L (43814) [facility] ([facility]) [address] [place] [address] Creatinine [Mass/Vol] 0.86 mg/dL Normal 0.50-1.30 [facility] Comment on above: Performed By: #### 5 3315-8 #### TRE SAINZMOTZER L (09540) [facility] ([facility]) [address] [place] [address] GFR/1.73 sq M.predicted MDRD (S/P/Bld) [Vol rate/Area] mL/min/{1.73_m2} Normal >60 [facility] Comment on above: Result Comment: Calc ulations of estimated GFR are performed using the 2020 CKD-EPI Study Refit equation without the race variable for the IDMS-Traceable creatinine methods. https://jasn.asnjournals.org/content//ASN.86664 62234 Performed By: #### 5 3315-8 #### TRE GODWINTZER L (94440) [facility] ([facility]) [address] [place] [address] Glucose [Mass/Vol] 143 mg/dL High 74-99 [facility] Comment on above: Performed By: #### 5 3315-8 #### TRE SAINZMOTZER L (26919) [facility] ([facility]) [address] [place] [address]756 Potassium [Moles/Vol] 3.6 mmol/L Normal 3.5-5.3 [facility] Comment on above: Performed By: #### 5 3315-8 #### TRE ROSE L ([id number]) [facility] ([facility]) [address] [place] [address] 37882 Protein [Mass/Vol] 7.3 g/dL Normal 6.4-8.2 [facility] Comment on above: Performed By: #### 5 3315-8 #### TRE GODWINTZER L (74040) [facility] ([facility]) [address] [place] [address] 80211 Sodium [Moles/Vol] 141 mmol/L Normal 136-145 [facility] Comment on above: Performed By: #### 5 3315-8 #### TRE SAINZMOTZER L ([id number]) [facility] ([facility]) [address] [place] [address] 45448 Urea nitrogen [Mass/Vol] 10 mg/dL Normal 6-23 [facility] Comment on above: Performed By: #### 5 3315-8 #### TRE SCHMOTZER L ([id number]) [facility] ([facility]) [address] [place] [address] 42177 Urateon 12-15-2023 Urate [Mass/Vol] 6.2 mg/dL Normal 4.0-7.5 [facility] Comment on above: Result Comment: Nina puncture immediately after or during the administration of Metamizole may lead to falsely low results. Testing should be performed immediately prior to Metamizole dosing. Performed By: #### 5 3315-8 #### TRE Nichols (72155) [facility] ([facility]) [address] [address] US BILIARY SYSTEMon 12-11-19 US BILIARY SYSTEM Interpreted By: Mukesh Paredes, STUDY: US BILIARY SYSTEM 12/11/2023 3:51 pm INDICATION: 28 y/o M with Signs/Symptoms:liver pain. COMPARISON: None. ACCESSION NUMBER(S): [id number] ORDERING CLINICIAN: DEXTER DANIEL TECHNIQUE: Routine ultrasound of the right upper quadrant was performed. Static images were obtained for remote interpretation. FINDINGS: LIVER: Craniocaudal length: 17.7 cm, within normal limits of size for age. Echogenicity: Increased Mass: None. BILE DUCTS: Intrahepatic ducts: Non-dilated. Common bile duct diameter: 3 mm. GALLBLADDER: Gallbladder: Normal. Gallstones: None. Gallbladder sludge: None. Gallbladder wall thickening: None. Pericholecystic fluid: None. PANCREAS: Visualized portions are unremarkable. RIGHT KIDNEY: Craniocaudal length: 11.4 cm, within normal limits of size for age. No hydronephrosis, hydroureter or focal renal lesion. PERITONEAL FLUID: None seen in the right upper quadrant. IMPRESSION: Mild hepatomegaly and diffuse steatosis. No focal lesion. No cholelithiasis or ductal dilation. Signed by: Mukesh Paredes 12/12/2023 5:59 PM Dictation workstation: [id number] [facility] Comment on above: Order Comment: To Hiro bowen Call [phone] US RENAL COMPLETEon 12-11-19 US RENAL COMPLETE Interpreted By: Mukesh Paredes, STUDY: US RENAL COMPLETE; 12/11/2023 12:10 pm INDICATION: Signs/Symptoms:ckd. COMPARISON: None. ACCESSION NUMBER(S): [id number] ORDERING CLINICIAN: DEXTER DANIEL TECHNIQUE: Grayscale and color Doppler sonographic images of the kidneys were obtained . FINDINGS: RIGHT KIDNEY: The right kidney measures 11.6 cm in length. The renal cortical echogenicity and thickness are within normal limits. No hydronephrosis. No sonographic evidence of nephrolithiasis. LEFT KIDNEY: The left kidney measures 10.6 cm in length. The renal cortical echogenicity and thickness are within normal limits. No hydronephrosis. No sonographic evidence of nephrolithiasis. BLADDER: The urinary bladder is unremarkable in appearance. Bilateral ureteral jets visualized. Prevoid volume 220 cc, postvoid volume 36 cc. IMPRESSION: Unremarkable renal ultrasound. Signed by: Mukesh Paredes 12/12/2023 9:44 PM Dictation workstation: [id number] [facility] Comment on above: Order Comment: [facility] [phone] to schedule Absolute lymphocyte countOrd ered By: Lavell Patel on 09-04-2023 Lymphocytes Auto (Unsp spec) [#/Vol] 4.53 10*3/uL 0.83-4.51 [facility] Automated lymphocyte count a s percentage of total leukocytesOrdered By: Lavell Patel on 09-04-2023 Lymphocytes/100 WBC Auto (Unsp spec) 45.7 % 19-41 [facility] Basophil percentageOrdered B y: Lavell Patel on 09-04-2023 Basophils/100 WBC (Bld) 1.4 % 0-1 [facility] Bilirubin [Mass/Vol] 1.10 mg/dL 0.20-1.00 [facility] Comment on above: For patients on eltr ombopag therapy, use of Dimension Alexis TBIL is not recommended. Chloride [Moles/Vol] 103 mmol/L 98-107 [facility] Eosinophils/100 WBC (Bld) 0.1 % 0-5 [facility] Glucose [Mass/Vol] 178 mg/dL 74-106 [facility] Comment on above: Fasting Glucose resu lt greater than or equal to 126 mg/dL suggests DIABETES MELLITUS per A.D.A. criteria. Hemoglobin (Bld) [Mass/Vol] 15.1 g/dL 13.0-16.5 [facility] Monocytes/100 WBC (Bld) 9.4 % 0-10 [facility] Neutrophils (Bld) [#/Vol] 4.3 10*3/uL 2.0-7.7 [facility] Neutrophils/100 WBC (Bld) 43.0 % 47-70 [facility] Potassium [Moles/Vol] 3.5 mmol/L 3.5-5.1 [facility] Protein [Mass/Vol] 7.1 g/dL 6.4-8.2 [facility] Sodium [Moles/Vol] 138 mmol/L 136-145 [facility] WBC (Bld) [#/Vol] 9.9 10*3/uL 4.4-11.0 [facility] Blood manual differential co mment interpretation (narrative result)Ordered By: Lavell Patel on 09-04-2023 Manual differential comment Gabriel (Bld) [Interp] SCANNED [facility] Determination of erythrocyte mean corpuscular volume (MCV)Ordered By: Lavell Patel on 09-04-2023 MCV (RBC) [Entitic vol] 87.4 fL 80-94 [facility] Erythrocyte distribution wid th ratioOrdered By: Lavell Patel on 09-04-2023 Erythrocyte distribution width (RBC) [Ratio] 12.9 % 11.6-14.6 [facility] Erythrocyte distribution wid th standard deviationOrdered By: Lavell Patel on 09-04-2023 Erythrocyte distribution width (RBC) [Entitic vol] 41.1 fL 35.1-43.9 [facility] Hematocrit Auto (Bld) [Volum e fraction]Ordered By: Lavell Patel on 09-04-2023 Hematocrit (Bld) [Volume fraction] 43.2 % 40-54 [facility] Immature granulocytes/100 WB C Auto (Bld)Ordered By: Lavell Patel on 09-04-2023 Immature granulocytes/100 WBC (Bld) 0.400 % 0.0-0.9 [facility] Comment on above: IG% - Immature Granu locytes (promyelocytes, myelocytes and metamyelocytes) > 1% indicates that a LEFT SHIFT is Present. Laboratory - Chemistry and C hemistry - challengeOrdered By: Lavell Patel on 09-04-2023 Albumin/Globulin [Mass ratio] 1.0 {ratio} 0.9-2.4 [facility] ALP [Catalytic activity/Vol] 151 U/L 45-117 [facility] ALT [Catalytic activity/Vol] 86 U/L 16-61 [facility] CO2 [Moles/Vol] 26.0 mmol/L 21.0-32.0 [facility] Globulin (S) [Mass/Vol] 3.6 g/dL 2.2-4.2 [facility] Urea nitrogen/Creatinine [Mass ratio] 9.4 mg/mg 10-20 [facility] Laboratory - Hematology and Cell countsOrdered By: Lavell Patel on 09-04-2023 MCH (RBC) [Entitic mass] 30.6 pg 27.0-32.0 [facility] MCHC (RBC) [Mass/Vol] 35.0 g/dL 32-36 [facility] Nucleated RBC/100 WBC (Bld) [Ratio] 0 % 0-5 [facility] Platelet mean volume (Bld) [Entitic vol] 9.4 fL 6.2-12.0 [facility] Platelets (Bld) [#/Vol] 177 10*3/uL 150-450 [facility] No Panel InformationOrdered By: Lavell Patel on 09-04-2023 Atypical Lymphocytes 1+ % [facility] Estimated Creatinine Clearance Calc 130.62 ml/min [facility] Estimated GFR (MDRD) Amer 121 mL/min >60 [facility] Comment on above: GFR Calc Estimated GFR (MDRD) Non-Af Amer 100 mL/min >60 [facility] Comment on above: Non- GFR Calc RBC Auto (Bld) [#/Vol]Ordere d By: Lavell Patel on 09-04-2023 RBC (Bld) [#/Vol] 4.94 10*6/uL 4.6-6.2 [facility] Serum or plasma calcium bucky urement (mass/volume)Ordered By: Lavell Patel on 09-04-2023 Calcium [Mass/Vol] 8.9 mg/dL 8.5-10.1 [facility] Serum or plasma creatinine m easurement (mass/volume)Ordered By: Lavell Patel on 09-04-2023 Creatinine [Mass/Vol] 0.96 mg/dL 0.70-1.30 [facility] Comment on above: The validity of the calculated GFR & GFRAA in patients over 70 years has not been determined. Clinical correlation is essential. Serum or plasma urea nitroge n measurement (mass/volume)Ordered By: Lavell Patel on 09-04-2023 Urea nitrogen [Mass/Vol] 9 mg/dL 7-18 [facility] Thin prep Papanicolaou smear with manual screeningOrdered By: Lavell Patel on 09-04-2023 Thin prep Papanicolaou smear with manual screening 3.5 g/dL 3.2-5.0 [facility] Thin prep Papanicolaou smear with manual screening 130 U/L 15-37 [facility] Thin prep Papanicolaou smear with manual screening 9 5-15 [facility] Laboratory - Hematology and Cell countson 08-15-2023 HbA1c (Bld) [Mass fraction] 9.0 % 4.2-6.3 [facility] Albumin/Creatinineon 024 Albumin/Creatinine DL <= 20 mg/L (U) [Mass ratio] 791.1 ug/mg Creat High <30.0 [facility] Comment on above: Performed By: #### 1 4959-1 #### TRE Nichols ([id number]) [facility] ([facility]) [address] [place] [address]10 Albumin/Creatinine DL <= 20 mg/L (U) [Mass ratio]on 06-09-2023 Albumin DL <= 20 mg/L (U) [Mass/Vol] 425.6 mg/L Normal Not established [facility] Comment on above: Performed By: #### 1 4959-1 #### TRE Nichols (19883) [facility] ([facility]) [address] [place] [address]365 Creatinine (U) [Mass/Vol] 53.8 mg/dL Normal 20.0-370.0 [facility] Comment on above: Performed By: #### 1 4959-1 #### TRE Nichols (73052) [facility] ([facility]) [address] [place] [address] 79384 CBC W Auto Differential pane l (Bld)on 06-09-2023 Basophils (Bld) [#/Vol] 0.06 x10*3/uL Normal 0.00-0.10 [facility] Comment on above: Performed By: #### 5 7021-8 #### TRE Nichols (07007) [facility] ([facility]) [address] [place] [address] 89945 Basophils/100 WBC (Bld) 1.1 % Normal 0.0-2.0 [facility] Comment on above: Performed By: #### 5 7021-8 #### TRE ROSE L ([id number]) [facility] ([facility]) [address] [place] [address] 13737 Eosinophils (Bld) [#/Vol] 0.15 x10*3/uL Normal 0.00-0.70 [facility] Comment on above: Performed By: #### 5 7021-8 #### TRE ROSE L (96532) [facility] ([facility]) [address] [place] [address] 89847 Eosinophils/100 WBC (Bld) 2.6 % Normal 0.0-6.0 [facility] Comment on above: Performed By: #### 5 7021-8 #### TRE ROSE L (48260) [facility] ([facility]) [address] [place] [address] 66678 Erythrocyte distribution width (RBC) [Ratio] 12.9 % Normal 11.5-14.5 [facility] Comment on above: Performed By: #### 5 7021-8 #### TRE ROSE L (25055) [facility] ([facility]) [address] [place] [address] 43195 Hematocrit (Bld) [Volume fraction] 47.4 % Normal 41.0-52.0 [facility] Comment on above: Performed By: #### 5 7021-8 #### TRE ROSE L (52602) [facility] ([facility]) [address] [place] [address] 78850 Hemoglobin (Bld) [Mass/Vol] 16.4 g/dL Normal 13.5-17.5 [facility] Comment on above: Performed By: #### 5 7021-8 #### TRE ROSE L (30701) [facility] ([facility]) [address] [place] [address] Immature granulocytes (Bld) [#/Vol] 0.02 x10*3/uL Normal 0.00-0.70 [facility] Comment on above: Performed By: #### 5 7021-8 #### TRE Nichols (23551) [facility] ([facility]) [address] [place] [address] Immature granulocytes/100 WBC (Bld) 0.4 % Normal 0.0-0.9 [facility] Comment on above: Result Comment: Suzanne ture Granulocyte Count (IG) includes promyelocytes, myelocytes and metamyelocytes but does not include bands. Percent differential counts (%) should be interpreted in the context of the absolute cell counts (cells/UL). Performed By: #### 5 7021-8 #### TRE Nichols (00030) [facility] ([facility]) [address] [place] [address] 56911 Lymphocytes (Bld) [#/Vol] 2.00 x10*3/uL Normal 1.20-4.80 [facility] Comment on above: Performed By: #### 5 7021-8 #### TRE Nichols (85661) [facility] ([facility]) [address] [place] [address] 14535 Lymphocytes/100 WBC (Bld) 35.3 % Normal 13.0-44.0 [facility] Comment on above: Performed By: #### 5 7021-8 #### TRE Nichols (13314) [facility] ([facility]) [address] [place] [address] 83616 MCH (RBC) [Entitic mass] 30.7 pg Normal 26.0-34.0 [facility] Comment on above: Performed By: #### 5 7021-8 #### TRE Nichols (98764) [facility] ([facility]) [address] [place] [address] MCHC (RBC) [Mass/Vol] 34.6 g/dL Normal 32.0-36.0 [facility] Comment on above: Performed By: #### 5 7021-8 #### TRE Nichols (94323) [facility] ([facility]) [address] [place] [address] MCV (RBC) [Entitic vol] 89 fL Normal 80-100 [facility] Comment on above: Performed By: #### 5 7021-8 #### TRE Nichols (50752) [facility] ([facility]) [address] [place] [address] 87682 Monocytes (Bld) [#/Vol] 0.68 x10*3/uL Normal 0.10-1.00 [facility] Comment on above: Performed By: #### 5 7021-8 #### TRE Nichols ([id number]) [facility] ([facility]) [address] [place] [address] 49500 Monocytes/100 WBC (Bld) 12.0 % Normal 2.0-10.0 [facility] Comment on above: Performed By: #### 5 7021-8 #### TRE Nichols (58338) [facility] ([facility]) [address] [place] [address] 65582 Neutrophils (Bld) [#/Vol] 2.76 x10*3/uL Normal 1.20-7.70 [facility] Comment on above: Result Comment: Perc ent differential counts (%) should be interpreted in the context of the absolute cell counts (cells/uL). Performed By: #### 5 7021-8 #### TRE Nichols (57018) [facility] ([facility]) [address] [place] [address] Neutrophils/100 WBC (Bld) 48.6 % Normal 40.0-80.0 [facility] Comment on above: Performed By: #### 5 7021-8 #### TRE SAINZMOJESI L (89596) [facility] ([facility]) [address] [place] [address] 86443 Nucleated RBC/100 WBC (Bld) [Ratio] 0.0 /100 WBCs Normal 0.0-0.0 [facility] Comment on above: Performed By: #### 5 7021-8 #### TRE Nichols (81757) [facility] ([facility]) [address] [place] [address] 30983 Platelets (Bld) [#/Vol] 185 x10*3/uL Normal 150-450 [facility] Comment on above: Performed By: #### 5 7021-8 #### TRE Nichols (14535) [facility] ([facility]) [address] [place] [address] 17432 RBC (Bld) [#/Vol] 5.34 x10*6/uL Normal 4.50-5.90 [facility] Comment on above: Performed By: #### 5 7021-8 #### TRE Nichols (64132) [facility] ([facility]) [address] [place] [address] 09672 WBC (Bld) [#/Vol] 5.7 x10*3/uL Normal 4.4-11.3 [facility] Comment on above: Performed By: #### 5 7021-8 #### TRE Nichols (64726) [facility] ([facility]) [address] [place] [address] 43812 Cobalaminson 06-09-2023 Cobalamin (Vitamin B12) [Mass/Vol] 275 pg/mL Normal 211-911 [facility] Comment on above: Performed By: #### 2 132-9 #### TRE Nichols (13852) [facility] ([facility]) [address] [place] [address] 69159 Comprehensive metabolic 2000 panelon 06-09-2023 Albumin BCP dye [Mass/Vol] 5.3 g/dL High 3.4-5.0 [facility] Comment on above: Performed By: #### 2 4323-8 #### TRE Nichols ([id number]) [facility] ([facility]) [address] [place] [address] 19523 ALP [Catalytic activity/Vol] 74 U/L Normal 33-120 [facility] Comment on above: Performed By: #### 2 4323-8 #### TRE Nichols (79940) [facility] ([facility]) [address] [place] [address] ALT With P-5'-P [Catalytic activity/Vol] 35 U/L Normal 10-52 [facility] Comment on above: Result Comment: Marilu ents treated with Sulfasalazine may generate falsely decreased results for ALT. Performed By: #### 2 4323-8 #### TRE Nichols (56514) [facility] ([facility]) [address] [place] [address] Anion gap [Moles/Vol] 18 mmol/L Normal 10-20 [facility] Comment on above: Performed By: #### 2 4323-8 #### TRE ROSE L (99099) [facility] ([facility]) [address] [place] [address] AST With P-5'-P [Catalytic activity/Vol] 26 U/L Normal 9-39 [facility] Comment on above: Performed By: #### 2 4323-8 #### TRE Nichols (94813) [facility] ([facility]) [address] [place] [address] Bilirubin [Mass/Vol] 0.5 mg/dL Normal 0.0-1.2 [facility] Comment on above: Performed By: #### 2 4323-8 #### TRE Nichols (17529) [facility] ([facility]) [address] [place] [address] Calcium [Mass/Vol] 10.1 mg/dL Normal 8.6-10.6 [facility] Comment on above: Performed By: #### 2 4323-8 #### TRE ROSE L (14844) [facility] ([facility]) [address] [place] [address] Chloride [Moles/Vol] 99 mmol/L Normal 98-107 [facility] Comment on above: Performed By: #### 2 4323-8 #### TRE Nichols (84222) [facility] ([facility]) [address] [place] [address] CO2 [Moles/Vol] 27 mmol/L Normal 21-32 [facility] Comment on above: Performed By: #### 2 4323-8 #### TRE Nichols ([id number]) [facility] ([facility]) [address] [place] [address] 08925 Creatinine [Mass/Vol] 0.83 mg/dL Normal 0.50-1.30 [facility] Comment on above: Performed By: #### 2 4323-8 #### TRE Nichols ([id number]) [facility] ([facility]) [address] [place] [address] 33407 GFR/1.73 sq M.predicted MDRD (S/P/Bld) [Vol rate/Area] mL/min/{1.73_m2} Normal >60 [facility] Comment on above: Result Comment: Calc ulations of estimated GFR are performed using the 2020 CKD-EPI Study Refit equation without the race variable for the IDMS-Traceable creatinine methods. https://jasn.asnjournals.org/content/early//ASN.75155 64096 Performed By: #### 2 4323-8 #### TRE Nichols ([id number]) [facility] ([facility]) [address] [place] [address] 14551 Glucose [Mass/Vol] 250 mg/dL High 74-99 [facility] Comment on above: Performed By: #### 2 4323-8 #### TRE Nichols ([id number]) [facility] ([facility]) [address] [place] [address] 27686 Potassium [Moles/Vol] 4.0 mmol/L Normal 3.5-5.3 [facility] Comment on above: Performed By: #### 2 4323-8 #### TRE Nichols ([id number]) [facility] ([facility]) [address] [place] [address] Protein [Mass/Vol] 7.6 g/dL Normal 6.4-8.2 [facility] Comment on above: Performed By: #### 2 4323-8 #### TRE SCHMOTZER L ([id number]) [facility] ([facility]) [address] [place] [address] Sodium [Moles/Vol] 140 mmol/L Normal 136-145 [facility] Comment on above: Performed By: #### 2 4323-8 #### TRE SCHMOTZER L ([id number]) [facility] ([facility]) [address] [place] [address] Urea nitrogen [Mass/Vol] 13 mg/dL Normal 6-23 [facility] Comment on above: Performed By: #### 2 4323-8 #### TRE SAINZMOTZER L ([id number]) [facility] ([facility]) [address] [place] [address] Drugs of abuse screen W Refl ex confirm panel (U)on 06-09-2023 Amphetamines Screen Ql (U) Negative Normal Presumptive Negative [facility] Comment on above: Order Comment: Drug screen results are presumptive and should not be used to assesscompliance with prescribed medication. Definitive confirmatory drug testinghas been added to this sample for any positive screen result and will bereported separately.Toxicology screening results are reported qualitatively. The concentration mustbe greater than or equal to the cutoff to be reported as positive. The concentrationat which the screening test can detect an individual drug or metabolite varies.The absence of expected drug(s) and/or drug metabolite(s) may indicate non-compliance,inappropriate timing of specimen collection relative to drug administration, poor drugabsorption, diluted/adulterated urine, or limitations of testing. For medical purposesonly; not valid for forensic use.Interpretive questions should be directed to the laboratory medical directors. Result Comment: CUTO FF LEVEL: 500 NG/ML Cross-reactivity has been reported with high concentrations of the following drugs: buproprion, chloroquine, chlorpromazine, ephedrine, mephentermine, fenfluramine, phentermine, phenylpropanolamine, pseudoephedrine, and propranolol. Performed By: #### 5 3315-8 #### TRE Nichols ([id number]) [facility] ([facility]) [address] [address] Barbiturates Screen Ql (U) Negative Normal Presumptive Negative [facility] Comment on above: Order Comment: Drug screen results are presumptive and should not be used to assesscompliance with prescribed medication. Definitive confirmatory drug testinghas been added to this sample for any positive screen result and will bereported separately.Toxicology screening results are reported qualitatively. The concentration mustbe greater than or equal to the cutoff to be reported as positive. The concentrationat which the screening test can detect an individual drug or metabolite varies.The absence of expected drug(s) and/or drug metabolite(s) may indicate non-compliance,inappropriate timing of specimen collection relative to drug administration, poor drugabsorption, diluted/adulterated urine, or limitations of testing. For medical purposesonly; not valid for forensic use.Interpretive questions should be directed to the laboratory medical directors. Result Comment: CUTO FF LEVEL: 200 NG/ML Performed By: #### 5 3315-8 #### TRE Nichols ([id number]) [facility] ([facility]) [address] [address] Benzodiazepines Ql (U) Negative Normal Presu mptive Negative [facility] Comment on above: Order Comment: Drug screen results are presumptive and should not be used to assesscompliance with prescribed medication. Definitive confirmatory drug testinghas been added to this sample for any positive screen result and will bereported separately.Toxicology screening results are reported qualitatively. The concentration mustbe greater than or equal to the cutoff to be reported as positive. The concentrationat which the screening test can detect an individual drug or metabolite varies.The absence of expected drug(s) and/or drug metabolite(s) may indicate non-compliance,inappropriate timing of specimen collection relative to drug administration, poor drugabsorption, diluted/adulterated urine, or limitations of testing. For medical purposesonly; not valid for forensic use.Interpretive questions should be directed to the laboratory medical directors. Result Comment: CUTO FF LEVEL: 200 NG/ML Performed By: #### 5 3315-8 #### TRE HENRYER L ([id number]) [facility] ([facility]) [address] [address] Benzoylecgonine Screen Ql (U) Negative Normal Presumptive Negative [facility] Comment on above: Order Comment: Drug screen results are presumptive and should not be used to assesscompliance with prescribed medication. Definitive confirmatory drug testinghas been added to this sample for any positive screen result and will bereported separately.Toxicology screening results are reported qualitatively. The concentration mustbe greater than or equal to the cutoff to be reported as positive. The concentrationat which the screening test can detect an individual drug or metabolite varies.The absence of expected drug(s) and/or drug metabolite(s) may indicate non-compliance,inappropriate timing of specimen collection relative to drug administration, poor drugabsorption, diluted/adulterated urine, or limitations of testing. For medical purposesonly; not valid for forensic use.Interpretive questions should be directed to the laboratory medical directors. Result Comment: CUTO FF LEVEL: 150 NG/ML Performed By: #### 5 3315-8 #### TRE SAINZMOTZER L ([id number]) [facility] ([facility]) [address] [address] Cannabinoids Screen Ql (U) Negative Normal Presumptive Negative [facility] Comment on above: Order Comment: Drug screen results are presumptive and should not be used to assesscompliance with prescribed medication. Definitive confirmatory drug testinghas been added to this sample for any positive screen result and will bereported separately.Toxicology screening results are reported qualitatively. The concentration mustbe greater than or equal to the cutoff to be reported as positive. The concentrationat which the screening test can detect an individual drug or metabolite varies.The absence of expected drug(s) and/or drug metabolite(s) may indicate non-compliance,inappropriate timing of specimen collection relative to drug administration, poor drugabsorption, diluted/adulterated urine, or limitations of testing. For medical purposesonly; not valid for forensic use.Interpretive questions should be directed to the laboratory medical directors. Result Comment: CUTO FF LEVEL: 50 NG/ML Performed By: #### 5 3315-8 #### TRE SCHMOTZER L ([id number]) [facility] ([facility]) [address] [address] fentaNYL+Norfentanyl Screen Ql (U) Negative Normal Presumptive Negative [facility] Comment on above: Order Comment: Drug screen results are presumptive and should not be used to assesscompliance with prescribed medication. Definitive confirmatory drug testinghas been added to this sample for any positive screen result and will bereported separately.Toxicology screening results are reported qualitatively. The concentration mustbe greater than or equal to the cutoff to be reported as positive. The concentrationat which the screening test can detect an individual drug or metabolite varies.The absence of expected drug(s) and/or drug metabolite(s) may indicate non-compliance,inappropriate timing of specimen collection relative to drug administration, poor drugabsorption, diluted/adulterated urine, or limitations of testing. For medical purposesonly; not valid for forensic use.Interpretive questions should be directed to the laboratory medical directors. Result Comment: CUTO FF LEVEL: 5 NG/ML Performed By: #### 5 3315-8 #### TRE Nichols ([id number]) [facility] ([facility]) [address] [place] [address] Opiates Screen Ql (U) Negative Normal Presum ptive Negative [facility] Comment on above: Order Comment: Drug screen results are presumptive and should not be used to assesscompliance with prescribed medication. Definitive confirmatory drug testinghas been added to this sample for any positive screen result and will bereported separately.Toxicology screening results are reported qualitatively. The concentration mustbe greater than or equal to the cutoff to be reported as positive. The concentrationat which the screening test can detect an individual drug or metabolite varies.The absence of expected drug(s) and/or drug metabolite(s) may indicate non-compliance,inappropriate timing of specimen collection relative to drug administration, poor drugabsorption, diluted/adulterated urine, or limitations of testing. For medical purposesonly; not valid for forensic use.Interpretive questions should be directed to the laboratory medical directors. Result Comment: CUTO FF LEVEL: 300 NG/ML The opiate screen does not detect fentanyl, meperidine, or tramadol. Oxycodone is not consistently detected (refer to Oxycodone Screen, Urine result). Performed By: #### 5 3315-8 #### TRE Nichols ([id number]) [facility] ([facility]) [address] [place] [address] oxyCODONE+oxyMORphone Screen Ql (U) Negative Normal Presumptive Negative [facility] Comment on above: Order Comment: Drug screen results are presumptive and should not be used to assesscompliance with prescribed medication. Definitive confirmatory drug testinghas been added to this sample for any positive screen result and will bereported separately.Toxicology screening results are reported qualitatively. The concentration mustbe greater than or equal to the cutoff to be reported as positive. The concentrationat which the screening test can detect an individual drug or metabolite varies.The absence of expected drug(s) and/or drug metabolite(s) may indicate non-compliance,inappropriate timing of specimen collection relative to drug administration, poor drugabsorption, diluted/adulterated urine, or limitations of testing. For medical purposesonly; not valid for forensic use.Interpretive questions should be directed to the laboratory medical directors. Result Comment: CUTO FF LEVEL: 100 NG/ML This test will accurately detect both oxycodone and oxymorphone. Performed By: #### 5 3315-8 #### TRE Nichols ([id number]) [facility] ([facility]) [address] [place] [address] 609[address] Phencyclidine Ql (U) Negative Normal Presump tive Negative [facility] Comment on above: Order Comment: Drug screen results are presumptive and should not be used to assesscompliance with prescribed medication. Definitive confirmatory drug testinghas been added to this sample for any positive screen result and will bereported separately.Toxicology screening results are reported qualitatively. The concentration mustbe greater than or equal to the cutoff to be reported as positive. The concentrationat which the screening test can detect an individual drug or metabolite varies.The absence of expected drug(s) and/or drug metabolite(s) may indicate non-compliance,inappropriate timing of specimen collection relative to drug administration, poor drugabsorption, diluted/adulterated urine, or limitations of testing. For medical purposesonly; not valid for forensic use.Interpretive questions should be directed to the laboratory medical directors. Result Comment: CUTO FF LEVEL: 25 NG/ML Cross-reactivity has been reported with dextromethorphan. Performed By: #### 5 3315-8 #### TRE Nichols ([id number]) [facility] ([facility]) [address] [place] [id number] HIV 1+2 Ab+HIV1 p24 Agon HIV 1+2 Ab+HIV1 p24 Ag IA Ql Non-Reactive Normal Nonreactive [facility] Comment on above: Order Comment: HIV A g/Ab screen is performed using the Siemens Bit9 HIV Ag/Ab Combo assay which detects the presence of HIV p24 antigen as well as antibodies to HIV-1 (Group M and O) and HIV-2.No laboratory evidence of HIV infection. If acute HIV infection is suspected, consider testing for HIV RNA by PCR (viral load). Performed By: #### 5 3315-8 #### TRE Nichols ([id number]) [facility] ([facility]) [address] [place] [address] HbA1c (Bld) [Mass fraction]o n 06-09-2023 Average glucose Estimated from glycated hemoglobin (Bld) [Mass/Vol] 220 mg/dL Normal Not Established [facility] Comment on above: Order Comment: Diagn osis of Uafbjtki-WjezzsFkn-Awlpqbco: < or = 5.6%Increased risk for developing diabetes: 5.7-6.4%Diagnostic of diabetes: > or = 6.5%Monitoring of DiabetesAge (y)....................... Therapeutic Goal (%)Adults: >18.........................<7.0Pediatrics: 13-18...................<7.5Pediatrics: 7-12....................<8.0Pediatrics: 0-6..................... 7.5-8.5American Diabetes Association. Diabetes Care 33(S1)May 2009 Performed By: #### 5 3315-8 #### TRE Nichols ([id number]) [facility] ([facility]) [address] [place] [address] Hemoglobin A1c/Hemoglobin.to adarsh 06-09-2023 HbA1c (Bld) [Mass fraction] 9.3 % High see below [facility] Comment on above: Order Comment: Diagn osis of Eqbltgjn-ZbmzprLeq-Pcgttpdr: < or = 5.6%Increased risk for developing diabetes: 5.7-6.4%Diagnostic of diabetes: > or = 6.5%Monitoring of DiabetesAge (y)....................... Therapeutic Goal (%)Adults: >18.........................<7.0Pediatrics: 13-18...................<7.5Pediatrics: 7-12....................<8.0Pediatrics: 0-6..................... 7.5-8.5[facility] Diabetes Association. Diabetes Care 33(S1), May 2009 Performed By: #### 5 3315-8 #### TRE Nichols ([id number]) [facility] ([facility]) [address] [place], [place] [id number] Hepatitis C virus Abon 06-09 HCV Ab Ql (S) Non-Reactive Normal Nonreactive [facility] Comment on above: Result Comment: Resu lts from patients taking biotin supplements or receiving high-dose biotin therapy should be interpreted with caution due to possible interference with this test. Providers may contact their local laboratory for further information. Performed By: #### 5 3315-8 #### TRE Nichols ([id number]) [facility] ([facility]) [address] [place] [address] [place] panelon 06-09-2023 Iron [Mass/Vol] 77 ug/dL Normal 35-150 [facility] Comment on above: Performed By: #### 5 0190-8 #### TRE SAINZMOTZER L ([id number]) [facility] ([facility]) [address] [place] [address] 62594 Iron binding capacity [Mass/Vol] 381 ug/dL Normal 240-445 [facility] Comment on above: Performed By: #### 5 0190-8 #### TRE SAINZMOTZER L ([id number]) [facility] ([facility]) [address] [place] [address] 41927 Iron binding capacity.unsaturated [Mass/Vol] 304 ug/dL Normal 110-370 [facility] Comment on above: Performed By: #### 5 0190-8 #### TRE SAINZMOTZER L ([id number]) [facility] ([facility]) [address] [place] [address] 13282 Iron saturation [Mass fraction] 20 % Low 25-45 [facility] Comment on above: Performed By: #### 5 0190-8 #### TRE SAINZMOTZER L ([id number]) [facility] ([facility]) [address] [place] [address] 56913 Lipid 1996 panelon 4 Cholesterol [Mass/Vol] 297 mg/dL High 0-199 [facility] Comment on above: Result Comment: Age Desirable Borderline High High 0-19 Y 0 - 169 170 - 199 >/= 200 20-24 Y 0 - 189 190 - 224 >/= 225 >24 Y 0 - 199 200 - 239 >/= 240 All ranges are based on fasting samples. Specific therapeutic targets will vary based on patient-specific cardiac risk. Pediatric guidelines reference:Pediatrics 2011, 128(S5).Adult guidelines reference: NCEP ATPIII Guidelines,TODD 2001, 258:2486-97 Venipuncture immediately after or during the administration of Metamizole may lead to falsely low results. Testing should be performed immediately prior to Metamizole dosing. Performed By: #### 2 4331-1 #### TRE SAINZMOTZER L ([id number]) [facility] ([facility]) [address] [place] [address] 62120 Cholesterol in HDL [Mass/Vol] 73.2 mg/dL Normal [facility] Comment on above: Result Comment: Age Very Low Low Normal High 0-19 Y < 35 < 40 40-45 ---- 20-24 Y ---- < 40 >45 ---- >24 Y ---- < 40 40-60 >60 Performed By: #### 2 4331-1 #### TRE Nichols ([id number]) [facility] ([facility]) [address] [place] [address] 10040 Cholesterol in LDL [Mass/Vol] 177 mg/dL High <=99 [facility] Comment on above: Result Comment: Near Borderline AGE Desirable Optimal High High Very High 0-19 Y 0 - 109 --- 110-129 >/= 130 ---- 20-24 Y 0 - 119 --- 120-159 >/= 160 ---- >24 Y 0 - 99 100-129 130-159 160-189 >/=190 Performed By: #### 2 4331-1 #### TRE Nichols ([id number]) [facility] ([facility]) [address] [place] [address] 96001 Cholesterol in VLDL [Mass/Vol] 47 mg/dL High 0-40 [facility] Comment on above: Performed By: #### 2 4331-1 #### TRE Nichols ([id number]) [facility] ([facility]) [address] [place] [address] 43442 CHOLESTEROL/HDL RATIO 4.1 Normal [facility] Comment on above: Result Comment: Ref Values Desirable < 3.4 High Risk > 5.0 Performed By: #### 2 4331-1 #### TRE Nichols ([id number]) [facility] ([facility]) [address] [place] [address] 99329 NON HDL CHOLESTEROL 224 mg/dL High 0-149 [facility] Comment on above: Result Comment: Age Desirable Borderline High High Very High 0-19 Y 0 - 119 120 - 144 >/= 145 >/= 160 20-24 Y 0 - 149 150 - 189 >/= 190 ---- >24 Y 30 mg/dL above LDL Cholesterol goal Performed By: #### 2 4331-1 #### TRE Nichols ([id number]) [facility] ([facility]) [address] [place] [address] 26577 Triglyceride [Mass/Vol] 236 mg/dL High 0-149 [facility] Comment on above: Result Comment: Age Desirable Borderline High High Very High 0 D-90 D 19 - 174 ---- ---- ---- 91 D- 9 Y 0 - 74 75 - 99 >/= 100 ---- 10-19 Y 0 - 89 90 - 129 >/= 130 ---- 20-24 Y 0 - 114 115 - 149 >/= 150 ---- >24 Y 0 - 149 150 - 199 200- 499 >/= 500 Venipuncture immediately after or during the administration of Metamizole may lead to falsely low results. Testing should be performed immediately prior to Metamizole dosing. Performed By: #### 2 4331-1 #### TRE Nichols ([id number]) [facility] ([facility]) [address] [place] [address] 85710 Magnesiumon 06-09-2023 Magnesium [Mass/Vol] 2.19 mg/dL Normal 1.60-2.40 [facility] Comment on above: Performed By: #### 1 9123-9 #### TRE Nichols ([id number]) [facility] ([facility]) [address] [place] [address] 71269 TSH WITH REFLEX TO FREE T4 I F ABNORMALon 06-09-2023 TSH Qn 4.78 m[IU]/L High 0.44-3.98 [facility] Comment on above: Order Comment: TSH t esting is performed using different testing methodology at [facility] than at other [facility]. Direct result comparisons should only be made within the same method. Performed By: #### T CHANDRIKA #### TRE Nichols ([id number]) [facility] ([facility]) [address] [place] [address] 86592 Testosterone Free/Testostero ne.total [Mass fraction]on 06-09-2023 Testosterone [Mass/Vol] 638 ng/dL Normal 250-1100 [facility] Comment on above: Result Comment: For additional information, please refer to http://education.ChipX.In[employer] Logic/faq/ NqixwOjsyfoxwsrmlDYDBLQOTP276 (This link is being provided for informational/ educational purposes only.) This test was developed and its analytical performance characteristics have been determined by [employer], [place]. It has not been cleared or approved by the U.S. Food and Drug Administration. This assay has been validated pursuant to the CLIA regulations and is used for clinical purposes. Performed By: #### 5 3315-8 #### TRE Nichols ([id number]) [facility] ([facility]) [address] [address] Testosterone Free [Mass/Vol] 131.4 pg/mL Normal 35.0-155.0 [facility] Comment on above: Result Comment: This test was developed and its analytical performance characteristics have been determined by [employer] [place]. It has not been cleared or approved by the U.S. Food and Drug Administration. This assay has been validated pursuant to the CLIA regulations and is used for clinical purposes. Performed By: #### 5 3315-8 #### TRE Nichols ([id number]) [facility] ([facility]) [address] [address] Thyroxine.freeon 06-09-2023 Free T4 [Mass/Vol] 1.10 ng/dL Normal 0.78-1.48 [facility] Comment on above: Order Comment: Thyro xine Free testing is performed using different testing methodology at [facility] than at other [facility]. Direct result comparisons should only be made within the same method. Performed By: #### 5 3315-8 #### TRE Nichols ([id number]) [facility] ([facility]) [address] [address] Urateon 06-09-2023 Urate [Mass/Vol] 6.3 mg/dL Normal 4.0-7.5 [facility] Comment on above: Result Comment: Nina puncture immediately after or during the administration of Metamizole may lead to falsely low results. Testing should be performed immediately prior to Metamizole dosing. Performed By: #### 3 084-1 #### TRE Nichols ([id number]) [facility] ([facility]) [address] [place] [address] 51421 Urinalysis microscopic panel Auto Ql (U)on 06-09-2023 RBC Auto (Urine sed) [#/Area] NONE Normal NONE, 1-2, 3-5 [facility] Comment on above: Performed By: #### 5 3315-8 #### TRE Nichols ([id number]) [facility] ([facility]) [address] [place] [address] 63661 WBC Auto (Urine sed) [#/Area] NONE Normal 1-5, NONE [facility] Comment on above: Performed By: #### 5 [id number] #### TRE Nichols ([id number]) [facility] ([facility]) [address] [place] [id number] Glucose Glucometer (BldC) [M ass/Vol]Ordered By: Colten Crystal on 03-23-2023 Glucose [Mass/Vol] 186 mg/dL 74-106 [facility] Comment on above: MANAGEMENT OF PATIEN T CARE PER NURSING PROTOCOL Basophil percentageOrdered B y: William Bowers on 03-21-2023 Bilirubin [Mass/Vol] 1.30 mg/dL 0.20-1.00 [facility] Comment on above: For patients on eltr ombopag therapy, use of Dimension Alexis TBIL is not recommended. Chloride [Moles/Vol] 98 mmol/L 98-107 [facility] Glucose [Mass/Vol] 263 mg/dL 74-106 [facility] Comment on above: Glucose result great er than or equal to 200 mg/dLsuggests DIABETES MELLITUS per A.D.A. criteria. Potassium [Moles/Vol] 4.4 mmol/L 3.5-5.1 [facility] Protein [Mass/Vol] 7.4 g/dL 6.4-8.2 [facility] Sodium [Moles/Vol] 133 mmol/L 136-145 [facility] Laboratory - Chemistry and C hemistry - challengeOrdered By: William Bowers on 03-21-2023 ALP [Catalytic activity/Vol] 76 U/L 45-117 [facility] ALT [Catalytic activity/Vol] 59 U/L 16-61 [facility] CO2 [Moles/Vol] 24.0 mmol/L 21.0-32.0 [facility] Globulin (S) [Mass/Vol] 4.0 g/dL 2.2-4.2 [facility] Urea nitrogen/Creatinine [Mass ratio] 16.9 mg/mg 10-20 [facility] No Panel InformationOrdered By: William Bowers on 03-21-2023 Estimated Creatinine Clearance Calc 133.17 ml/min [facility] Estimated GFR (MDRD) Amer 123 mL/min >60 [facility] Comment on above: GFR Calc Estimated GFR (MDRD) Non-Af Amer 102 mL/min >60 [facility] Comment on above: Non- GFR Calc Serum or plasma albumin bucky urement (mass/volume)Ordered By: William Bowers on 03-21-2023 Albumin [Mass/Vol] 3.4 g/dL 3.2-5.0 [facility] Serum or plasma albumin/glob ulin mass ratioOrdered By: William Bowers on 03-21-2023 Albumin/Globulin [Mass ratio] 0.8 {ratio} 0.9-2.4 [facility] Serum or plasma calcium bucky urement (mass/volume)Ordered By: William Bowers on 03-21-2023 Calcium [Mass/Vol] 9.0 mg/dL 8.5-10.1 [facility] Serum or plasma creatinine m easurement (mass/volume)Ordered By: William Bowers on 03-21-2023 Creatinine [Mass/Vol] 0.95 mg/dL 0.70-1.30 [facility] Comment on above: The validity of the calculated GFR & GFRAA in patients over 70 years has not been determined. Clinical correlation is essential. Serum or plasma urea nitroge n measurement (mass/volume)Ordered By: William Bowers on 03-21-2023 Urea nitrogen [Mass/Vol] 16 mg/dL 7-18 [facility] Thin prep Papanicolaou smear with manual screeningOrdered By: William Elissa on 03-21-2023 Thin prep Papanicolaou smear with manual screening 36 U/L 15-37 [facility] Thin prep Papanicolaou smear with manual screening 11 5-15 [facility] Laboratory - Drug toxicology Ordered By: Dafne Cornell on 03-20-2023 Amphetamines Ql (U) Negative <1000 ng/mL [facility] Benzodiazepines Ql (U) Negative < 200 ng/mL [facility] Cannabinoids Screen Ql (U) Negative < 50 ng/mL [facility] Cocaine Ql (U) Negative < 300 ng/mL [facility] Opiates Ql (U) Negative < 300 ng/mL [facility] No Panel InformationOrdered By: Dafne Cornell on 03-20-2023 MDMA (Ecstasy) Screen Negative < 500 ng/mL [facility] Urine Barbiturates Screen Negative < 200 ng/mL [facility] Urine Drug Screen Comment [facility] Comment on above: CONFIRMATORY TESTING FOR ALL POSITIVE URINE DRUG SCREENRESULTS WILL ONLY BE SENT OUT UPON PHYSICIAN ORDER. VISTA Urine Drug Screen methods provide only preliminaryanalytical test results. A more specific alternate chemicalmethod must be used in order to obtain a confirmedanalytical result. Gas chromatography/mass spectrometery(GC/MS) is the preferred confirmatory method. Clinicalconsideration and professional judgement should be appliedto any drug of abuse test result, particularly whenpreliminary positive results are used. URINE TCA TESTING MUST BE ORDERED SEPARATELY. USE TESTMNEMONIC: [facility] Urine Methadone Screen Negative < 300 ng/mL [facility] Ethyl Alcohol Level 353.0 mg/dL [facility] Comment on above: Critical Result(s) C alled at: 02:22:34 03/20/2023 by: Capo Medina TO KRAIG VAN RN (ED) Results read back by same.The serum:whole blood ethanol ratio is approximately 1.14and varies slightly with hematocrit. Medical Alcohol reference interval and critical value innon-tolerant individuals; 50 - 100 Impairment 100 Intoxication 100 - 250 Severe Poisoning 250 - 400 Deep/possible fatal coma Urine phencyclidine (PCP) de tectionOrdered By: Dafne Cornell on 03-20-2023 Phencyclidine Ql (U) Negative < 25 ng/mL [facility] Office Visit (Internal Medic ine)on 07-22-2022 Follow-up visit Diagnoses/Problems Assessed Never smoker Benign essential hypertension (401.1) (I10) Depression screening (V79.0) (Z13.31) Diabetes mellitus with complication (250.90) (E11.8) RAIN (generalized anxiety disorder) (300.02) (F41.1) Mixed hyperlipidemia (272.2) (E78.2) Overweight with body mass index (BMI) of 27 to 27.9 in adult (278.02,V85.23) (E66.3,Z68.27) History of diabetic ketoacidosis (V12.29) (Z86.39) History of alcohol abuse (305.03) (F10.11) Orders SocHx: Never smoker Tobacco Use Screening; Status:Complete; Done: [id number] Perform:Not Applicable;Ordered; For:SocHx: Never smoker; Ordered By:Dexter Daniel; Patient Discussion/Summary Major depressive disorder Advice= Serum cortisol B12 and folic acid TSH CMP Avoid alcoholic beverages.; Status:Complete; Be sure to get at least 8 hours of sleep every nighti; Continue with our present treatment plan. Decreasing the stress in your life may help your condition improve Please bring all medicines, vitamins, and herbal supplements with you when you come to the office Regular aerobic exercise can help reduce stress You need to quit smoking. And alcohol or any drugs Call if: The symptoms are not better in 2 weeks The symptoms seem worse Your depression is worse Your moods often change suddenly for no reason.; Your symptoms return during treatment Call 911 if: You are thinking about harming yourself or someone else Call 911 if: You have feelings of hopelessness, not wanting to live, wanting to harm yourself, or you are thinking about dying Seek Immediate Medical Attention if he had a suicidal ideation GOAL= PHQ LESS REKHA 4 Follow-up 3-[address] Vieyra Provider Impressions 27-year-old patient who had history of alcohol abuse with the alcohol detoxification program complicated with DKA advised B12 folic acid and thiamine psych and criminal justice social worker evaluation done to follow Hyperlipidemia Lipitor Anxiety depression lorazepam lipidemia Hypertension Hyperlipidemia diet and exercise Gastritis Pepcid Diabetes continue NovoLog insulin pump Refer patient to psych and rebar worker According to the mom patient's and her comorbid condition patient not able to work at least for next 6 to 9 months advised follow-up with the psych and endocrine Chief Complaint Chief Complaints Visit For: Other follow up [facility] papers Adult Risk Screening Initial Fall Risk Screening: JORGE has not fallen in the last 6 months. History of Present Illness 27-year-old patient of hypertension hyperlipidemia diabetes alcohol abuse multiple hospitalization because of alcohol withdrawal and detox program and a DKA Seen by psych and rebar worker Because of underlying mental health problem and other problem not able to function well Negative for suicide Negative for drug abuse Review hospital record discussed with the patient and family and Review of Systems Constitutional: no fever, no chills, not feeling poorly, not feeling tired, no recent weight gain and no recent weight loss. ENT: no earache, no hearing loss, no nosebleeds, no nasal discharge, no sore throat and no hoarseness. Cardiovascular: the heart rate was not slow, the heart rate was not fast, no chest pain, no palpitations, no intermittent leg claudication and no lower extremity edema. Respiratory: no cough, not coughing up sputum and no wheezing that is consistent with asthma. Gastrointestinal: no abdominal pain, no constipation, no melena, no nausea, no diarrhea, no vomiting and no blood in stools. Musculoskeletal: no arthralgias, no myalgias, no back pain, no joint swelling, no joint stiffness, no limb pain and no limb swelling. Integumentary: no rashes, no skin lesions, no itching, no skin wound and no dry skin. Neurological: no headache, no confusion, no numbness, no dizziness, no tingling and no fainting. All other systems have been reviewed and are negative for complaint. 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 Normal [place] [employer] Tobacco Screening.on 023 Fall risk assessment a) No falls within the last year [employer] [facility] Work Phone: Tobacco use status [facility] b) No [facility] Work Phone: Assessment of wrist artery p atency prior to arterial punctureOrdered By: Dr. Cedillo on 07-16-2022 Arterial patency Wrist artery --pre arterial puncture Positive [facility] Base excessOrdered By: Dr. Destiny lewis on 07-16-2022 Base excess Calc (BldV) [Moles/Vol] -12 mmol/L -2- [facility] Basophil percentageOrdered B y: Dr. Cedillo on 07-16-2022 Bilirubin [Mass/Vol] 0.60 mg/dL 0.20-1.00 [facility] Comment on above: For patients on eltr ombopag therapy, use of Dimension Alexis TBIL is not recommended. Chloride [Moles/Vol] 102 mmol/L 98-107 [facility] Glucose [Mass/Vol] 462 mg/dL 74-106 [facility] Comment on above: Critical Result(s) C alled at: 05:11:14 07/16/2022 by: SIMONE SALAZAR TO EUNICE GARCIA. Results read back by same.Glucose result greater than or equal to 200 mg/dLsuggests DIABETES MELLITUS per A.D.A. criteria. Potassium [Moles/Vol] 3.1 mmol/L 3.5-5.1 [facility] Protein [Mass/Vol] 5.9 g/dL 6.4-8.2 [facility] Sodium [Moles/Vol] 134 mmol/L 136-145 [facility] Basophil percentage 13.3 mmol/L 22-26 [facility] Basophils/100 WBC (Bld) 98 % 95-99 [facility] CO2 (BldA) [Partial pressure ]Ordered By: Dr. Cedillo on 07-16-2022 CO2 (Bld) [Partial pressure] 23.1 mm[Hg] 35-45 [facility] Glucose Glucometer (BldC) [M ass/Vol]Ordered By: Dr. Murphy on 07-16-2022 Glucose [Mass/Vol] 87 mg/dL 74-106 [facility] Comment on above: MANAGEMENT OF PATIEN T CARE PER NURSING PROTOCOL Laboratory - Chemistry and C hemistry - challengeOrdered By: Dr. Cedillo on 07-16-2022 ALP [Catalytic activity/Vol] 75 U/L 45-117 [facility] ALT [Catalytic activity/Vol] 48 U/L 16-61 [facility] CO2 [Moles/Vol] 19.0 mmol/L 21.0-32.0 [facility] Globulin (S) [Mass/Vol] 2.8 g/dL 2.2-4.2 [facility] Urea nitrogen/Creatinine [Mass ratio] 11.1 mg/mg 10-20 [facility] No Panel InformationOrdered By: Dr. Cedillo on 07-16-2022 Estimated Creatinine Clearance Calc 100.40 ml/min [facility] Estimated GFR (MDRD) Amer 89 mL/min >60 [facility] Comment on above: GFR Calc Estimated GFR (MDRD) Non-Af Amer 73 mL/min >60 [facility] Comment on above: Non- GFR Calc Blood Gas Oxygen Percent 21 [facility] Blood Gas Sample Site R Radial [facility] Blood Gas Specimen Type ART [facility] Blood Gas Total CO2 14 mmol/L [facility] Oxygen Delivery Device Room Air [facility] Ethyl Alcohol Level < 3.0 mg/dL [facility] Comment on above: The serum:whole bloo d ethanol ratio is approximately 1.14and varies slightly with hematocrit. Medical Alcohol reference interval and critical value innon-tolerant individuals; 50 - 100 Impairment 100 Intoxication 100 - 250 Severe Poisoning 250 - 400 Deep/possible fatal coma Oxygen (BldA) [Partial press ure]Ordered By: Dr. Cedillo on 07-16-2022 Oxygen (Bld) [Partial pressure] 104 mmHG 75-100 [facility] Serum or plasma albumin bucky urement (mass/volume)Ordered By: Dr. Cedillo on 07-16-2022 Albumin [Mass/Vol] 3.1 g/dL 3.2-5.0 [facility] Serum or plasma albumin/glob ulin mass ratioOrdered By: Dr. Cedillo on 07-16-2022 Albumin/Globulin [Mass ratio] 1.1 {ratio} 0.9-2.4 [facility] Serum or plasma calcium bucky urement (mass/volume)Ordered By: Dr. Cedillo on 07-16-2022 Calcium [Mass/Vol] 7.7 mg/dL 8.5-10.1 [facility] Serum or plasma creatinine m easurement (mass/volume)Ordered By: Dr. Cedillo on 07-16-2022 Creatinine [Mass/Vol] 1.26 mg/dL 0.70-1.30 [facility] Comment on above: The validity of the calculated GFR & GFRAA in patients over 70 years has not been determined. Clinical correlation is essential. Serum or plasma urea nitroge n measurement (mass/volume)Ordered By: Dr. Cedillo on 07-16-2022 Urea nitrogen [Mass/Vol] 14 mg/dL 7-18 [facility] Thin prep Papanicolaou smear with manual screeningOrdered By: Dr. Cedillo on 07-16-2022 Thin prep Papanicolaou smear with manual screening 27 U/L 15-37 [facility] Thin prep Papanicolaou smear with manual screening 13 5-15 [facility] Whole blood hemoglobin A1c/t otal hemoglobin ratio (mass fraction)Ordered By: Dr. Cedillo on 07-16-2022 HbA1c (Bld) [Mass fraction] 8.5 % 3.8-5.6 [facility] Comment on above: Normal < 5.7 % Predi abetic 5.7 - 6.4 % Diabetic >or= 6.5 % Please note range changes. pH measurementOrdered By: Dr Danay Cedillo on 07-16-2022 pH (Unsp spec) 7.37 [pH] 7.35-7.45 [facility] Absolute lymphocyte countOrd ered By: Dr. Hopper on 07-15-2022 Lymphocytes Auto (Unsp spec) [#/Vol] 0.99 10*3/uL 0.83-4.51 [facility] Basophil percentageOrdered B y: Dr. Hopper on 07-15-2022 Basophils/100 WBC (Bld) 1.1 % 0-1 [facility] Chloride [Moles/Vol] 96 mmol/L 98-107 [facility] Eosinophils/100 WBC (Bld) 0.1 % 0-5 [facility] Glucose [Mass/Vol] 285 mg/dL 74-106 [facility] Comment on above: Glucose result great er than or equal to 200 mg/dLsuggests DIABETES MELLITUS per A.D.A. criteria. Neutrophils (Bld) [#/Vol] 9.2 10*3/uL 2.0-7.7 [facility] Neutrophils/100 WBC (Bld) 77.3 % 47-70 [facility] Potassium [Moles/Vol] 3.8 mmol/L 3.5-5.1 [facility] Sodium [Moles/Vol] 133 mmol/L 136-145 [facility] WBC (Bld) [#/Vol] 11.9 10*3/uL 4.4-11.0 [facility] Blood erythrocytes count (nu mber/volume)Ordered By: Dr. Hopper on 07-15-2022 RBC (Bld) [#/Vol] 5.34 10*6/uL 4.6-6.2 [facility] Blood hemoglobin measurement (mass/volume)Ordered By: Dr. Hopper on 07-15-2022 Hemoglobin (Bld) [Mass/Vol] 16.6 g/dL 13.0-16.5 [facility] Blood lymphocytes/100 leukoc ytesOrdered By: Dr. Hopper on 07-15-2022 Lymphocytes/100 WBC (Bld) 8.3 % 19-41 [facility] Blood manual differential co mment interpretation (narrative result)Ordered By: Dr. Hopper on 07-15-2022 Manual differential comment Gabriel (Bld) [Interp] SCANNED [facility] Comment on above: MONOCYTOSIS NOTED Blood monocytes/100 leukocyt esOrdered By: Dr. Hopper on 07-15-2022 Monocytes/100 WBC (Bld) 12.8 % 0-10 [facility] Blood platelet mean volumeOr dered By: Dr. Hopper on 07-15-2022 Platelet mean volume (Bld) [Entitic vol] 9.8 fL 6.2-12.0 [facility] Determination of erythrocyte mean corpuscular volume (MCV)Ordered By: Dr. Hopper on 07-15-2022 MCV (RBC) [Entitic vol] 90.4 fL 80-94 [facility] Glucose Glucometer (BldC) [M ass/Vol]Ordered By: Dr. Cedillo on 07-15-2022 Glucose [Mass/Vol] 219 mg/dL 74-106 [facility] Comment on above: MANAGEMENT OF PATIEN T CARE PER NURSING PROTOCOL Hematocrit Auto (Bld) [Volum e fraction]Ordered By: Dr. Hopper on 07-15-2022 Hematocrit (Bld) [Volume fraction] 48.3 % 40-54 [facility] Laboratory - Chemistry and C hemistry - challengeOrdered By: Dr. Hopper on 07-15-2022 CO2 [Moles/Vol] 10.0 mmol/L 21.0-32.0 [facility] Urea nitrogen/Creatinine [Mass ratio] 12.6 mg/mg 10-20 [facility] Laboratory - Chemistry and C hemistry - challengeOrdered By: Dr. Cedillo on 07-15-2022 Magnesium [Mass/Vol] 2.2 mg/dL 1.6-2.6 [facility] Laboratory - Hematology and Cell countsOrdered By: Dr. Hopper on 07-15-2022 Erythrocyte distribution width (RBC) [Entitic vol] 42.1 fL 35.1-43.9 [facility] Erythrocyte distribution width (RBC) [Ratio] 12.8 % 11.6-14.6 [facility] Immature granulocytes/100 WBC (Bld) 0.400 % 0.0-0.9 [facility] Comment on above: IG% - Immature Granu locytes (promyelocytes, myelocytes and metamyelocytes) > 1% indicates that a LEFT SHIFT is Present. MCH (RBC) [Entitic mass] 31.1 pg 27.0-32.0 [facility] Nucleated RBC/100 WBC (Bld) [Ratio] 0 % 0-5 [facility] ([facility]) [Mass/Vol]Or dered By: Dr. Hopper on 07-15-2022 MCHC (RBC) [Mass/Vol] 34.4 g/dL 32-36 [facility] No Panel InformationOrdered By: Dr. Hopper on 07-15-2022 Estimated Creatinine Clearance Calc 79.56 ml/min [facility] Estimated GFR (MDRD) Amer 68 mL/min >60 [facility] Comment on above: GFR Calc Estimated GFR (MDRD) Non-Af Amer 56 mL/min >60 [facility] Comment on above: Non- GFR Calc Platelets bldOrdered By: Dr. Hopper on 07-15-2022 Platelets (Bld) [#/Vol] 163 10*3/uL 150-450 [facility] Review by pathologistOrdered By: Dr. Hopper on 07-15-2022 Pathologist review Gabriel (Unsp spec) [Interp] May foll [facility] Serum or plasma acetone bucky urement (mass/volume)Ordered By: Dr. Hopper on 07-15-2022 Acetone [Mass/Vol] MODERATE NEG [facility] Serum or plasma calcium bucky urement (mass/volume)Ordered By: Dr. Hopper on 07-15-2022 Calcium [Mass/Vol] 9.8 mg/dL 8.5-10.1 [facility] Serum or plasma creatinine m easurement (mass/volume)Ordered By: Dr. Hopper on 07-15-2022 Creatinine [Mass/Vol] 1.59 mg/dL 0.70-1.30 [facility] Comment on above: The validity of the calculated GFR & GFRAA in patients over 70 years has not been determined. Clinical correlation is essential. Serum or plasma urea nitroge n measurement (mass/volume)Ordered By: Dr. Hopper on 07-15-2022 Urea nitrogen [Mass/Vol] 20 mg/dL 7-18 [facility] Thin prep Papanicolaou smear with manual screeningOrdered By: Dr. Hopper on 07-15-2022 Thin prep Papanicolaou smear with manual screening 27 5-15 [facility] Thin prep Papanicolaou smear with manual screeningOrdered By: Dr. Cedillo on 07-15-2022 Thin prep Papanicolaou smear with manual screening 310 mOsm/KG 275-295 [facility] Basophil percentageOrdered B y: Dr. Murphy on 06-20-2022 Chloride [Moles/Vol] 101 mmol/L 98-107 [facility] Glucose [Mass/Vol] 94 mg/dL 74-106 [facility] Potassium [Moles/Vol] 4.2 mmol/L 3.5-5.1 [facility] Sodium [Moles/Vol] 137 mmol/L 136-145 [facility] Laboratory - Chemistry and C hemistry - challengeOrdered By: Dr. Murphy on 06-20-2022 CO2 [Moles/Vol] 29.0 mmol/L 21.0-32.0 [facility] Urea nitrogen/Creatinine [Mass ratio] 9.3 mg/mg 10-20 [facility] No Panel InformationOrdered By: Dr. Murphy on 06-20-2022 Estimated Creatinine Clearance Calc 147.10 ml/min [facility] Estimated GFR (MDRD) Amer 138 mL/min >60 [facility] Comment on above: GFR Calc Estimated GFR (MDRD) Non-Af Amer 114 mL/min >60 [facility] Comment on above: Non- GFR Calc Serum or plasma calcium bucky urement (mass/volume)Ordered By: Dr. Murphy on 06-20-2022 Calcium [Mass/Vol] 9.1 mg/dL 8.5-10.1 [facility] Serum or plasma creatinine m easurement (mass/volume)Ordered By: Dr. Murphy on 06-20-2022 Creatinine [Mass/Vol] 0.86 mg/dL 0.70-1.30 [facility] Comment on above: The validity of the calculated GFR & GFRAA in patients over 70 years has not been determined. Clinical correlation is essential. Serum or plasma urea nitroge n measurement (mass/volume)Ordered By: Dr. Murphy on 06-20-2022 Urea nitrogen [Mass/Vol] 8 mg/dL 7-18 [facility] Thin prep Papanicolaou smear with manual screeningOrdered By: Dr. Murphy on 06-20-2022 Thin prep Papanicolaou smear with manual screening 7 5-15 [facility] Basophil percentageOrdered B y: Dr. Murphy on 06-19-2022 Basophil percentage 3.8 mg/dL 2.5-4.9 [facility] Bilirubin [Mass/Vol] 0.50 mg/dL 0.20-1.00 [facility] Comment on above: For patients on eltr ombopag therapy, use of Dimension Alexis TBIL is not recommended. Protein [Mass/Vol] 6.2 g/dL 6.4-8.2 [facility] Laboratory - Chemistry and C hemistry - challengeOrdered By: Dr. Murphy on 06-19-2022 ALP [Catalytic activity/Vol] 73 U/L 45-117 [facility] ALT [Catalytic activity/Vol] 42 U/L 16-61 [facility] Globulin (S) [Mass/Vol] 3.1 g/dL 2.2-4.2 [facility] Magnesium [Mass/Vol] 2.0 mg/dL 1.6-2.6 [facility] Serum or plasma albumin bucky urement (mass/volume)Ordered By: Dr. Murphy on 06-19-2022 Albumin [Mass/Vol] 3.1 g/dL 3.2-5.0 [facility] Serum or plasma albumin/glob ulin mass ratioOrdered By: Dr. Murphy on 06-19-2022 Albumin/Globulin [Mass ratio] 1.0 {ratio} 0.9-2.4 [facility] Thin prep Papanicolaou smear with manual screeningOrdered By: Dr. Murphy on 06-19-2022 Thin prep Papanicolaou smear with manual screening 27 U/L 15-37 [facility] Absolute lymphocyte countOrd ered By: Dr. Patel on 06-17-2022 Lymphocytes Auto (Unsp spec) [#/Vol] 2.22 10*3/uL 0.83-4.51 [facility] Basophil percentageOrdered B y: Dr. Patel on 06-17-2022 Basophils/100 WBC (Bld) 0.5 % 0-1 [facility] Bilirubin [Mass/Vol] 0.30 mg/dL 0.20-1.00 [facility] Comment on above: For patients on eltr ombopag therapy, use of Dimension Alexis TBIL is not recommended. Chloride [Moles/Vol] 111 mmol/L 98-107 [facility] Eosinophils/100 WBC (Bld) 1.5 % 0-5 [facility] Glucose [Mass/Vol] 203 mg/dL 74-106 [facility] Comment on above: Glucose result great er than or equal to 200 mg/dLsuggests DIABETES MELLITUS per A.D.A. criteria. Neutrophils (Bld) [#/Vol] 3.2 10*3/uL 2.0-7.7 [facility] Neutrophils/100 WBC (Bld) 52.8 % 47-70 [facility] Potassium [Moles/Vol] 3.9 mmol/L 3.5-5.1 [facility] Protein [Mass/Vol] 7.7 g/dL 6.4-8.2 [facility] Sodium [Moles/Vol] 145 mmol/L 136-145 [facility] WBC (Bld) [#/Vol] 6.1 10*3/uL 4.4-11.0 [facility] Blood erythrocytes count (nu mber/volume)Ordered By: Dr. Patel on 06-17-2022 RBC (Bld) [#/Vol] 4.84 10*6/uL 4.6-6.2 [facility] Blood hemoglobin measurement (mass/volume)Ordered By: Dr. Patel on 06-17-2022 Hemoglobin (Bld) [Mass/Vol] 15.3 g/dL 13.0-16.5 [facility] Blood lymphocytes/100 leukoc ytesOrdered By: Dr. Patel on 06-17-2022 Lymphocytes/100 WBC (Bld) 36.5 % 19-41 [facility] Blood monocytes/100 leukocyt esOrdered By: Dr. Patel on 06-17-2022 Monocytes/100 WBC (Bld) 8.2 % 0-10 [facility] Blood platelet mean volumeOr dered By: Dr. Patel on 06-17-2022 Platelet mean volume (Bld) [Entitic vol] 9.4 fL 6.2-12.0 [facility] Determination of erythrocyte mean corpuscular volume (MCV)Ordered By: Dr. Patel on 06-17-2022 MCV (RBC) [Entitic vol] 90.5 fL 80-94 [facility] Hematocrit Auto (Bld) [Volum e fraction]Ordered By: Dr. Patel on 06-17-2022 Hematocrit (Bld) [Volume fraction] 43.8 % 40-54 [facility] INR in Blood by Coagulation assayOrdered By: Dr. Patel on 06-17-2022 INR Coag (Bld) [Relative time] 1.0 {INR} [facility] Laboratory - Chemistry and C hemistry - challengeOrdered By: Dr. Patel on 06-17-2022 ALP [Catalytic activity/Vol] 93 U/L 45-117 [facility] ALT [Catalytic activity/Vol] 74 U/L 16-61 [facility] CO2 [Moles/Vol] 26.0 mmol/L 21.0-32.0 [facility] Globulin (S) [Mass/Vol] 3.8 g/dL 2.2-4.2 [facility] Urea nitrogen/Creatinine [Mass ratio] 7.2 mg/mg 10-20 [facility] Laboratory - CoagulationOrde red By: Dr. Patel on 06-17-2022 PT Coag (PPP) [Time] 13.1 s 11.7-14.9 [facility] Laboratory - Drug toxicology Ordered By: Dr. Paetl on 06-17-2022 Amphetamines Ql (U) Negative <1000 ng/mL [facility] Benzodiazepines Ql (U) Negative < 200 ng/mL [facility] Cannabinoids Screen Ql (U) Negative < 50 ng/mL [facility] Cocaine Ql (U) Negative < 300 ng/mL [facility] Opiates Ql (U) Negative < 300 ng/mL [facility] Laboratory - Hematology and Cell countsOrdered By: Dr. Patel on 06-17-2022 Erythrocyte distribution width (RBC) [Entitic vol] 45.5 fL 35.1-43.9 [facility] Erythrocyte distribution width (RBC) [Ratio] 13.7 % 11.6-14.6 [facility] Immature granulocytes/100 WBC (Bld) 0.500 % 0.0-0.9 [facility] Comment on above: IG% - Immature Granu locytes (promyelocytes, myelocytes and metamyelocytes) > 1% indicates that a LEFT SHIFT is Present. MCH (RBC) [Entitic mass] 31.6 pg 27.0-32.0 [facility] Nucleated RBC/100 WBC (Bld) [Ratio] 0 % 0-5 [facility] MCHC Auto (RBC) [Mass/Vol]Or dered By: Dr. Patel on 06-17-2022 MCHC (RBC) [Mass/Vol] 34.9 g/dL 32-36 [facility] No Panel InformationOrdered By: Dr. Patel on 06-17-2022 Estimated Creatinine Clearance Calc 152.42 ml/min [facility] Estimated GFR (MDRD) Amer 144 mL/min >60 [facility] Comment on above: GFR Calc Estimated GFR (MDRD) Non-Af Amer 119 mL/min >60 [facility] Comment on above: Non- GFR Calc Ethyl Alcohol Level 334.0 mg/dL [facility] Comment on above: Critical Result(s) C alled at: 09:34:32 06/17/2022 by: Tonya Smalls to Janes. Results read back by same.The serum:whole blood ethanol ratio is approximately 1.14and varies slightly with hematocrit. Medical Alcohol reference interval and critical value innon-tolerant individuals; 50 - 100 Impairment 100 Intoxication 100 - 250 Severe Poisoning 250 - 400 Deep/possible fatal coma MDMA (Ecstasy) Screen Negative < 500 ng/mL [facility] Urine Barbiturates Screen Negative < 200 ng/mL [facility] Urine Drug Screen Comment [facility] Comment on above: CONFIRMATORY TESTING FOR ALL POSITIVE URINE DRUG SCREENRESULTS WILL ONLY BE SENT OUT UPON PHYSICIAN ORDER. VISTA Urine Drug Screen methods provide only preliminaryanalytical test results. A more specific alternate chemicalmethod must be used in order to obtain a confirmedanalytical result. Gas chromatography/mass spectrometery(GC/MS) is the preferred confirmatory method. Clinicalconsideration and professional judgement should be appliedto any drug of abuse test result, particularly whenpreliminary positive results are used. URINE TCA TESTING MUST BE ORDERED SEPARATELY. USE TESTMNEMONIC: [facility] Urine Methadone Screen Negative < 300 ng/mL [facility] Platelets bldOrdered By: Dr. Patel on 06-17-2022 Platelets (Bld) [#/Vol] 192 10*3/uL 150-450 [facility] Serum or plasma acetone bucky urement (mass/volume)Ordered By: Dr. Patel on 06-17-2022 Acetone [Mass/Vol] Negative NEG [facility] Serum or plasma albumin bucky urement (mass/volume)Ordered By: Dr. Patel on 06-17-2022 Albumin [Mass/Vol] 3.9 g/dL 3.2-5.0 [facility] Serum or plasma albumin/glob ulin mass ratioOrdered By: Dr. Patel on 06-17-2022 Albumin/Globulin [Mass ratio] 1.0 {ratio} 0.9-2.4 [facility] Serum or plasma calcium bucky urement (mass/volume)Ordered By: Dr. Patel on 06-17-2022 Calcium [Mass/Vol] 8.7 mg/dL 8.5-10.1 [facility] Serum or plasma creatinine m easurement (mass/volume)Ordered By: Dr. Patel on 06-17-2022 Creatinine [Mass/Vol] 0.83 mg/dL 0.70-1.30 [facility] Comment on above: The validity of the calculated GFR & GFRAA in patients over 70 years has not been determined. Clinical correlation is essential. Serum or plasma urea nitroge n measurement (mass/volume)Ordered By: Dr. Patel on 06-17-2022 Urea nitrogen [Mass/Vol] 6 mg/dL 7-18 [facility] Thin prep Papanicolaou smear with manual screeningOrdered By: Dr. Patel on 06-17-2022 Thin prep Papanicolaou smear with manual screening 81 U/L 15-37 [facility] Thin prep Papanicolaou smear with manual screening 8 5-15 [facility] Urine phencyclidine (PCP) de tectionOrdered By: Dr. Patel on 06-17-2022 Phencyclidine Ql (U) Negative < 25 ng/mL [facility] Whole blood hemoglobin A1c/t otal hemoglobin ratio (mass fraction)Ordered By: Dr. Murphy on 06-17-2022 HbA1c (Bld) [Mass fraction] 8.2 % 3.8-5.6 [facility] Comment on above: Normal < 5.7 % Predi abetic 5.7 - 6.4 % Diabetic >or= 6.5 % Please note range changes. 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) Depression screening (V79.0) (Z13.31) Diabetes mellitus with complication (250.90) (E11.8) Mixed hyperlipidemia (272.2) (E78.2) Overweight with body mass index (BMI) of 27 to 27.9 in adult (278.02,V85.23) (E66.3,Z68.27) Orders SocHx: Never smoker Tobacco Use Screening; Status:Complete; Done: 06Jun2022 Perform:Not Applicable;Ordered; For:SocHx: Never smoker; Ordered By:Dexter Daniel; Provider Impressions 27-year-old patient who has a history of for oral thrush hypokalemia uncontrolled diabetes with complication 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 Moderate alcohol intake B12 folic acid thiamine given psychological evaluation Anxiety with depression given Ativan and Wellbutrin Palpitation increase Toprol to 50 mg a day Hyperlipidemia Lipitor Proteinuria ramipril Diabetes endocrine follow-up Obesity diet and exercise I spent 15 minutes obtaining and discussing depression screening using pHq-2 questions with patient documented in the chart treatment plan discussI spent 15 minutes [id number] major depressive disorder Advice= Serum cortisol B12 and folic acid TSH CMP Avoid alcoholic beverages.; Status:Complete; Be sure to get at least 8 hours of sleep every nighti; Continue with our present treatment plan. Decreasing the stress in your life may help your condition improve Please bring all medicines, vitamins, and herbal supplements with you when you come to the office Regular aerobic exercise can help reduce stress You need to quit smoking. And alcohol or any drugs Call if: The symptoms are not better in 2 weeks The symptoms seem worse Your depression is worse Your moods often change suddenly for no reason.; Your symptoms return during treatment Call 911 if: You are thinking about harming yourself or someone else Call 911 if: You have feelings of hopelessness, not wanting to live, wanting to harm yourself, or you are thinking about dying Seek Immediate Medical Attention if he had a suicidal ideation GOAL= PHQ LESS REKHA 4 Follow-up 3-[address] Vieyra Follow-up in 6 weeks Chief Complaint Chief Complaints Visit For: Other anxiety and depression Adult Risk Screening Initial Fall Risk Screening: JORGE has not fallen in the last 6 months. History of Present Illness 27-year-old patient will have a type 1 diabetes hypertension hyperlipidemia anxiety depression moderate alcohol intake because of the stress disorder Negative for jaundice hallucination or delirium or chemical abuse Family history of mental health problem substance problem Seen by endocrinology recently diagnosis of the oral thrush hypokalemia uncontrolled diabetes side effect medication Negative for suicide Negative for jaundice Negative for bleeding Review of Systems Constitutional: no fever, no chills, not feeling poorly, not feeling tired, no recent weight gain and no recent weight loss. ENT: no earache, no hearing loss, no nosebleeds, no nasal discharge, no sore throat and no hoarseness. Cardiovascular: the heart rate was not slow, the heart rate was not fast, no chest pain, no palpitations, no intermittent leg claudication and no lower extremity edema. Respiratory: no cough, not coughing up sputum and no wheezing that is consistent with asthma. Gastrointestinal: no abdominal pain, no constipation, no melena, no nausea, no diarrhea, no vomiting and no blood in stools. Musculoskeletal: no arthralgias, no myalgias, no back pain, no joint swelling, no joint stiffness, no limb pain and no limb swelling. Integumentary: no rashes, no skin lesions, no itching, no skin wound and no dry skin. Neurological: no headache, no confusion, no numbness, no dizziness, no tingling and no fainting. All other systems have been reviewed and are negative for complaint. 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) Depression screening (V79.0) (Z13.31) Diabetes mellitus with complication (250.90) (E11.8) Mixed hyperlipidemia (272.2) (E78.2) Overweight with body mass index (BMI) of 27 to 27.9 in adult (278.02,V85.23) (E66.3,Z68.27) Past Medical History Problems History of chronic fatigue syndrome (V13.89) (Z86.69) Resolved Date: 26 Jul 2021 History of upper respiratory infection (V12.09) (Z87.09) History of No history of previous surgery Family History Mother Family history of thyroid disease (V18.19) (Z83.49) Sister Family history of thyroid disease (V18.19) (Z83.49) Social History Problems Never smoker Allergies Medication No Known Drug Allergies Recorded By: Dexter Daniel; 07/10/2020 2:58:24 PM Current Meds Medication NameInstruction Amoxicillin 500 MG Oral TabletTAKE 1 TABLET 3 TIMES DAILY. Aspirin 81 MG Oral Tablet Delayed Release Atorvastatin C (more content not included)... Normal [place] [employer] Tobacco Screening.on 023 Adult depression screening assessment Yes [employer] [facility] Work Phone: Fall risk assessment a) No falls within the last year [employer] Internal [facility] Work Phone: Tobacco use status [facility] b) No [employer] Internal [facility] Work Phone: Absolute lymphocyte countOrd ered By: Dr. Nice on 06-01-2022 Lymphocytes Auto (Unsp spec) [#/Vol] 1.13 10*3/uL 0.83-4.51 [facility] Basophil percentageOrdered B y: Dr. Nice on 06-01-2022 Basophils/100 WBC (Bld) 0.3 % 0-1 [facility] Bilirubin [Mass/Vol] 1.00 mg/dL 0.20-1.00 [facility] Comment on above: For patients on eltr ombopag therapy, use of Dimension Alexis TBIL is not recommended. Chloride [Moles/Vol] 100 mmol/L 98-107 [facility] Eosinophils/100 WBC (Bld) 1.4 % 0-5 [facility] Glucose [Mass/Vol] 104 mg/dL 74-106 [facility] Comment on above: Fasting Glucose resu lt from 100 to 125 mg/dL suggests IMPAIRED HOMEOSTASIS per A.D.A. criteria. Neutrophils (Bld) [#/Vol] 7.4 10*3/uL 2.0-7.7 [facility] Neutrophils/100 WBC (Bld) 75.6 % 47-70 [facility] Potassium [Moles/Vol] 3.4 mmol/L 3.5-5.1 [facility] Protein [Mass/Vol] 7.1 g/dL 6.4-8.2 [facility] Sodium [Moles/Vol] 139 mmol/L 136-145 [facility] WBC (Bld) [#/Vol] 9.8 10*3/uL 4.4-11.0 [facility] Blood erythrocytes count (nu mber/volume)Ordered By: Dr. Nice on 06-01-2022 RBC (Bld) [#/Vol] 4.84 10*6/uL 4.6-6.2 [facility] Blood hemoglobin measurement (mass/volume)Ordered By: Dr. Nice on 06-01-2022 Hemoglobin (Bld) [Mass/Vol] 15.5 g/dL 13.0-16.5 [facility] Blood lymphocytes/100 leukoc ytesOrdered By: Dr. Nice on 06-01-2022 Lymphocytes/100 WBC (Bld) 11.5 % 19-41 [facility] Blood monocytes/100 leukocyt esOrdered By: Dr. Nice on 06-01-2022 Monocytes/100 WBC (Bld) 10.9 % 0-10 [facility] Blood platelet mean volumeOr dered By: Dr. Nice on 06-01-2022 Platelet mean volume (Bld) [Entitic vol] 9.3 fL 6.2-12.0 [facility] Determination of erythrocyte mean corpuscular volume (MCV)Ordered By: Dr. Nice on 06-01-2022 MCV (RBC) [Entitic vol] 89.5 fL 80-94 [facility] Glucose Glucometer (dC) [M ass/Vol]Ordered By: Dr. Nice on 06-01-2022 Glucose [Mass/Vol] 74 mg/dL 74-106 [facility] Comment on above: MANAGEMENT OF PATIEN T CARE PER NURSING PROTOCOL Hematocrit Auto (Bld) [Volum e fraction]Ordered By: Dr. Nice on 06-01-2022 Hematocrit (Bld) [Volume fraction] 43.3 % 40-54 [facility] Laboratory - Chemistry and C hemistry - challengeOrdered By: Dr. Nice on 06-01-2022 ALP [Catalytic activity/Vol] 93 U/L 45-117 [facility] ALT [Catalytic activity/Vol] 74 U/L 16-61 [facility] CO2 [Moles/Vol] 28.0 mmol/L 21.0-32.0 [facility] Globulin (S) [Mass/Vol] 3.6 g/dL 2.2-4.2 [facility] Urea nitrogen/Creatinine [Mass ratio] 9.4 mg/mg 10-20 [facility] Laboratory - Hematology and Cell countsOrdered By: Dr. Nice on 06-01-2022 Erythrocyte distribution width (RBC) [Entitic vol] 42.3 fL 35.1-43.9 [facility] Erythrocyte distribution width (RBC) [Ratio] 12.9 % 11.6-14.6 [facility] Immature granulocytes/100 WBC (Bld) 0.300 % 0.0-0.9 [facility] Comment on above: IG% - Immature Granu locytes (promyelocytes, myelocytes and metamyelocytes) > 1% indicates that a LEFT SHIFT is Present. MCH (RBC) [Entitic mass] 32.0 pg 27.0-32.0 [facility] Nucleated RBC/100 WBC (Bld) [Ratio] 0 % 0-5 [facility] MCHC Auto (RBC) [Mass/Vol]Or dered By: Dr. Nice on 06-01-2022 MCHC (RBC) [Mass/Vol] 35.8 g/dL 32-36 [facility] No Panel InformationOrdered By: Dr. Nice on 06-01-2022 Estimated Creatinine Clearance Calc 148.83 ml/min [facility] Estimated GFR (MDRD) Amer 141 mL/min >60 [facility] Comment on above: GFR Calc Estimated GFR (MDRD) Non-Af Amer 116 mL/min >60 [facility] Comment on above: Non- GFR Calc Platelets bldOrdered By: Dr. Nice on 06-01-2022 Platelets (Bld) [#/Vol] 169 10*3/uL 150-450 [facility] Serum or plasma albumin bucky urement (mass/volume)Ordered By: Dr. Nice on 06-01-2022 Albumin [Mass/Vol] 3.5 g/dL 3.2-5.0 [facility] Serum or plasma albumin/glob ulin mass ratioOrdered By: Dr. Nice on 06-01-2022 Albumin/Globulin [Mass ratio] 1.0 {ratio} 0.9-2.4 [facility] Serum or plasma calcium bucky urement (mass/volume)Ordered By: Dr. Nice on 06-01-2022 Calcium [Mass/Vol] 9.2 mg/dL 8.5-10.1 [facility] Serum or plasma creatinine m easurement (mass/volume)Ordered By: Dr. Nice on 06-01-2022 Creatinine [Mass/Vol] 0.85 mg/dL 0.70-1.30 [facility] Comment on above: The validity of the calculated GFR & GFRAA in patients over 70 years has not been determined. Clinical correlation is essential. Serum or plasma urea nitroge n measurement (mass/volume)Ordered By: Dr. Nice on 06-01-2022 Urea nitrogen [Mass/Vol] 8 mg/dL 7-18 [facility] Thin prep Papanicolaou smear with manual screeningOrdered By: Dr. Nice on 06-01-2022 Thin prep Papanicolaou smear with manual screening 103 U/L 15-37 [facility] Thin prep Papanicolaou smear with manual screening 11 5-15 [facility] Laboratory - Hematology and Cell countson 05-29-2022 HbA1c (Bld) [Mass fraction] 8.0 % [facility] Absolute lymphocyte countOrd ered By: ED PROVIDER on 05-03-2022 Lymphocytes Auto (Unsp spec) [#/Vol] 1.64 10*3/uL 0.83-4.51 [facility] Basophil percentageOrdered B y: Dr. Corrales on 05-03-2022 Basophil percentage 0-5 SEEN /hpf 0-5 [facility] Basophil percentageOrdered B y: ED PROVIDER on 05-03-2022 Basophils/100 WBC (Bld) 1.0 % 0-1 [facility] Bilirubin [Mass/Vol] 0.60 mg/dL 0.20-1.00 [facility] Comment on above: For patients on eltr ombopag therapy, use of Dimension Alexis TBIL is not recommended. Chloride [Moles/Vol] 105 mmol/L 98-107 [facility] Eosinophils/100 WBC (Bld) 1.3 % 0-5 [facility] Glucose [Mass/Vol] 103 mg/dL 74-106 [facility] Comment on above: Fasting Glucose resu lt from 100 to 125 mg/dL suggests IMPAIRED HOMEOSTASIS per A.D.A. criteria. Neutrophils (Bld) [#/Vol] 3.4 10*3/uL 2.0-7.7 [facility] Neutrophils/100 WBC (Bld) 55.9 % 47-70 [facility] Potassium [Moles/Vol] 3.9 mmol/L 3.5-5.1 [facility] Comment on above: Slight Hemolysis, Re sult may be falsely increased. Protein [Mass/Vol] 8.0 g/dL 6.4-8.2 [facility] Sodium [Moles/Vol] 141 mmol/L 136-145 [facility] WBC (Bld) [#/Vol] 6.1 10*3/uL 4.4-11.0 [facility] Bilirubin Test strip Ql (U)O rdered By: Dr. Corrales on 05-03-2022 Bilirubin Ql (U) Negative Negative [facility] Blood erythrocytes count (nu mber/volume)Ordered By: ED PROVIDER on 05-03-2022 RBC (Bld) [#/Vol] 5.18 10*6/uL 4.6-6.2 [facility] Blood hemoglobin measurement (mass/volume)Ordered By: ED PROVIDER on 05-03-2022 Hemoglobin (Bld) [Mass/Vol] 15.7 g/dL 13.0-16.5 [facility] Blood lymphocytes/100 leukoc ytesOrdered By: ED PROVIDER on 05-03-2022 Lymphocytes/100 WBC (Bld) 27.1 % 19-41 [facility] Blood monocytes/100 leukocyt esOrdered By: ED PROVIDER on 05-03-2022 Monocytes/100 WBC (Bld) 14.2 % 0-10 [facility] Blood platelet adequacy dete ction by light microscopyOrdered By: ED PROVIDER on 05-03-2022 Platelets LM Ql (Bld) ADEQUATE ADEQ [facility] Blood platelet mean volumeOr dered By: ED PROVIDER on 05-03-2022 Platelet mean volume (Bld) [Entitic vol] 10.7 fL 6.2-12.0 [facility] Determination of erythrocyte mean corpuscular volume (MCV)Ordered By: ED PROVIDER on 05-03-2022 MCV (RBC) [Entitic vol] 90.5 fL 80-94 [facility] Glucose Glucometer (BldC) [M ass/Vol]Ordered By: Dr. Corrales on 05-03-2022 Glucose [Mass/Vol] 114 mg/dL 74-106 [facility] Comment on above: MANAGEMENT OF PATIEN T CARE PER NURSING PROTOCOL Hematocrit Auto (Bld) [Volum e fraction]Ordered By: ED PROVIDER on 05-03-2022 Hematocrit (Bld) [Volume fraction] 46.9 % 40-54 [facility] Ketones Test strip Ql (U)Ord ered By: Dr. Corrales on 05-03-2022 Ketones Ql (U) 15 mg/dl Negative [facility] Laboratory - Chemistry and C hemistry - challengeOrdered By: ED PROVIDER on 05-03-2022 ALP [Catalytic activity/Vol] 97 U/L 45-117 [facility] ALT [Catalytic activity/Vol] 108 U/L 16-61 [facility] CO2 [Moles/Vol] 16.0 mmol/L 21.0-32.0 [facility] Globulin (S) [Mass/Vol] 3.7 g/dL 2.2-4.2 [facility] Urea nitrogen/Creatinine [Mass ratio] 8.5 mg/mg 10-20 [facility] Laboratory - Chemistry and C hemistry - challengeOrdered By: Dr. Corrales on 05-03-2022 CK [Catalytic activity/Vol] 325 U/L 39-308 [facility] Comment on above: Moderate Hemolysis, Result may be falsely increased. Laboratory - Hematology and Cell countsOrdered By: ED PROVIDER on 05-03-2022 Erythrocyte distribution width (RBC) [Entitic vol] 42.0 fL 35.1-43.9 [facility] Erythrocyte distribution width (RBC) [Ratio] 12.7 % 11.6-14.6 [facility] Immature granulocytes/100 WBC (Bld) 0.500 % 0.0-0.9 [facility] Comment on above: IG% - Immature Granu locytes (promyelocytes, myelocytes and metamyelocytes) > 1% indicates that a LEFT SHIFT is Present. MCH (RBC) [Entitic mass] 30.3 pg 27.0-32.0 [facility] Nucleated RBC/100 WBC (Bld) [Ratio] 0 % 0-5 [facility] MCHC Auto (RBC) [Mass/Vol]Or dered By: ED PROVIDER on 05-03-2022 MCHC (RBC) [Mass/Vol] 33.5 g/dL 32-36 [facility] Mucus LM Ql (Urine sed)Order ed By: Dr. Corrales on 05-03-2022 Mucus Ql (Urine sed) 0 SEEN /hpf [facility] Nitrite Test strip Ql (U)Ord ered By: Dr. Corrales on 05-03-2022 Nitrite Ql (U) Negative Negative [facility] No Panel InformationOrdered By: ED PROVIDER on 05-03-2022 Estimated Creatinine Clearance Calc 109.08 ml/min [facility] Estimated GFR (MDRD) Amer 97 mL/min >60 [facility] Comment on above: GFR Calc Estimated GFR (MDRD) Non-Af Amer 80 mL/min >60 [facility] Comment on above: Non- GFR Calc No Panel InformationOrdered By: Dr. Corrales on 05-03-2022 Troponin I High Sensitivity 6 pg/mL 3.0-78.0 [facility] Comment on above: Please Note: New Sendy t Units and Gender Specific Reference Ranges. For more information see Policy Stat Procedure Alexis High Sensitivity Troponin (TNIH) and attachments. Platelets bldOrdered By: ED PROVIDER on 05-03-2022 Platelets (Bld) [#/Vol] See comment 150-450 [facility] Comment on above: Please note: For thi s sample, a platelet estimate is provided rather than a platelet count due to platelet clumping. Other parameters associated with this sample are not affected by platelet clumping. If a more accurate platelet count is required, a redraw of the patient will be necessary. Protein Test strip Ql (U)Ord ered By: Dr. Corrales on 05-03-2022 Protein Ql (U) 100 mg/dl Negative [facility] Serum or plasma albumin bucky urement (mass/volume)Ordered By: ED PROVIDER on 05-03-2022 Albumin [Mass/Vol] 4.3 g/dL 3.2-5.0 [facility] Serum or plasma albumin/glob ulin mass ratioOrdered By: ED PROVIDER on 05-03-2022 Albumin/Globulin [Mass ratio] 1.2 {ratio} 0.9-2.4 [facility] Serum or plasma calcium bucky urement (mass/volume)Ordered By: ED PROVIDER on 05-03-2022 Calcium [Mass/Vol] 9.4 mg/dL 8.5-10.1 [facility] Serum or plasma creatinine m easurement (mass/volume)Ordered By: ED PROVIDER on 05-03-2022 Creatinine [Mass/Vol] 1.17 mg/dL 0.70-1.30 [facility] Comment on above: The validity of the calculated GFR & GFRAA in patients over 70 years has not been determined. Clinical correlation is essential. Serum or plasma urea nitroge n measurement (mass/volume)Ordered By: ED PROVIDER on 05-03-2022 Urea nitrogen [Mass/Vol] 10 mg/dL 7-18 [facility] Squamous epithelial cells de tection in urine sediment by light microscopyOrdered By: Dr. Corrales on 05-03-2022 Epithelial cells.squamous LM Ql (Urine sed) 0 SEEN /hpf 0-5 [facility] Thin prep Papanicolaou smear with manual screeningOrdered By: ED PROVIDER on 05-03-2022 Thin prep Papanicolaou smear with manual screening 103 U/L 15-37 [facility] Comment on above: Slight Hemolysis, Re sult may be falsely increased. Thin prep Papanicolaou smear with manual screening 20 5-15 [facility] Urine blood detectionOrdered By: Dr. Corrales on 05-03-2022 RBC Ql (U) 50 /ul Negative [facility] RBC Ql (U) 0-5 SEEN /hpf 0-5 [facility] Urine clarityOrdered By: Dr. Corrales on 05-03-2022 Clarity (U) Clear Clear [facility] Urine color determinationOrd ered By: Dr. Corrales on 05-03-2022 Color (U) Yellow Yellow [facility] Urine glucose detectionOrder ed By: Dr. Corrales on 05-03-2022 Glucose Ql (U) 250 mg/dl Normal [facility] Urine leukocyte esterase det ection by dipstickOrdered By: Dr. Corrales on 05-03-2022 Leukocyte esterase Test strip Ql (U) Negative Negative [facility] Urine pHOrdered By: Dr. Giovany castañeda on 05-03-2022 pH (U) 7.0 [pH] 5.0 - 8.0 [facility] Urine sediment bacteria coun t by microscopy (number/high power field)Ordered By: Dr. Corrales on 05-03-2022 Bacteria LM.HPF (Urine sed) [#/Area] 0 /[HPF] None Seen [facility] Urine specific gravity measu rementOrdered By: Dr. Corrales on 05-03-2022 Specific gravity (U) [Rel density] 1.015 1.002-1.030 [facility] Urobilinogen Auto test strip Ql (U)Ordered By: Dr. Corrales on 05-03-2022 Urobilinogen Ql (U) Normal mg/dl Normal [facility] Absolute lymphocyte counton 01-29-2022 Lymphocytes Auto (Unsp spec) [#/Vol] 1.25 10*3/uL 0.83-4.51 [facility] Work Phone: Basophil percentageon 2021 Chloride [Moles/Vol] 109 mmol/L 98-107 [facility] Work Phone: Glucose [Mass/Vol] 145 mg/dL 74-106 [facility] Work Phone: Comment on above: Fasting Glucose resu lt greater than or equal to 126 mg/dL suggests DIABETES MELLITUS per A.D.A. criteria. Potassium [Moles/Vol] 3.6 mmol/L 3.5-5.1 [facility] Work Phone: Sodium [Moles/Vol] 141 mmol/L 136-145 [facility] Work Phone: Basophils/100 WBC (Bld) 0.3 % 0-1 [facility] Work Phone: Eosinophils/100 WBC (Bld) 0.0 % 0-5 [facility] Work Phone: Neutrophils (Bld) [#/Vol] 9.1 10*3/uL 2.0-7.7 [facility] Work Phone: Neutrophils/100 WBC (Bld) 76.1 % 47-70 [facility] Work Phone: [phone] WBC (Bld) [#/Vol] 11.9 10*3/uL 4.4-11.0 [facility] Work Phone: Blood erythrocytes count (nu mber/volume)on 01-29-2022 RBC (Bld) [#/Vol] 5.10 10*6/uL 4.6-6.2 [facility] Work Phone: Blood hemoglobin measurement (mass/volume)on 01-29-2022 Hemoglobin (Bld) [Mass/Vol] 15.5 g/dL 13.0-16.5 [facility] Work Phone: Blood lymphocytes/100 leukoc yteson 01-29-2022 Lymphocytes/100 WBC (Bld) 10.5 % 19-41 [facility] Work Phone: Blood manual differential co mment interpretation (narrative result)on 01-29-2022 Manual differential comment Gabriel (Bld) [Interp] COMMENT [facility] Work Phone: Comment on above: MONOCYTOSIS. Blood monocytes/100 leukocyt eson 01-29-2022 Monocytes/100 WBC (Bld) 12.6 % 0-10 [facility] Work Phone: Blood platelet mean volumeon 01-29-2022 Platelet mean volume (Bld) [Entitic vol] 9.6 fL 6.2-12.0 [facility] Work Phone: Determination of erythrocyte mean corpuscular volume (MCV)on 01-29-2022 MCV (RBC) [Entitic vol] 89.6 fL 80-94 [facility] Work Phone: Glucose Glucometer (BldC) [M ass/Vol]on 01-29-2022 Glucose [Mass/Vol] 160 mg/dL 74-106 [facility] Work Phone: Comment on above: MANAGEMENT OF PATIEN T CARE PER NURSING PROTOCOL HCO3 (BldA) [Moles/Vol]on HCO3 (Bld) [Moles/Vol] 17 mmol/L 22-26 [facility] Work Phone: Hematocrit Auto (Bld) [Volum e fraction]on 01-29-2022 Hematocrit (Bld) [Volume fraction] 45.7 % 40-54 [facility] Work Phone: Laboratory - Chemistry and C hemistry - challengeon 01-29-2022 CO2 [Moles/Vol] 24.0 mmol/L 21.0-32.0 [facility] Work Phone: Urea nitrogen/Creatinine [Mass ratio] 17.5 mg/mg 10-20 [facility] Work Phone: CO2 [Moles/Vol] 18 mmol/L 23-33 [facility] Work Phone: Laboratory - Hematology and Cell countson 01-29-2022 Erythrocyte distribution width (RBC) [Entitic vol] 40.8 fL 35.1-43.9 [facility] Work Phone: Erythrocyte distribution width (RBC) [Ratio] 12.3 % 11.6-14.6 [facility] Work Phone: Immature granulocytes/100 WBC (Bld) 0.500 % 0.0-0.9 [facility] Work Phone: Comment on above: IG% - Immature Granu locytes (promyelocytes, myelocytes and metamyelocytes) > 1% indicates that a LEFT SHIFT is Present. MCH (RBC) [Entitic mass] 30.4 pg 27.0-32.0 [facility] Work Phone: Nucleated RBC/100 WBC (Bld) [Ratio] 0 % 0-5 [facility] Work Phone: MCHC Auto (RBC) [Mass/Vol]on 01-29-2022 MCHC (RBC) [Mass/Vol] 33.9 g/dL 32-36 [facility] Work Phone: No Panel Informationon 01-29 Estimated Creatinine Clearance Calc 144.28 ml/min [facility] Work Phone: Estimated GFR (MDRD) Amer 130 mL/min >60 [facility] Work Phone: Comment on above: GFR Calc Estimated GFR (MDRD) Non-Af Amer 107 mL/min >60 [facility] Work Phone: Comment on above: Non- GFR Calc Bed Mix Venous Bld PCO2 at Pat Temp 31.0 mmHg 41-51 [facility] Work Phone: Blood Gas Specimen Type BRITTNY [facility] Work Phone: Venous Blood Base Excess -9 mmol/L -1.0-3.5 [facility] Work Phone: PO2 venouson 01-29-2022 Oxygen (BldV) [Partial pressure] 54 mm[Hg] 25-40 [facility] Work Phone: Platelets bldon 01-29-2022 Platelets (Bld) [#/Vol] 256 10*3/uL 150-450 [facility] Work Phone: Review by pathologiston Pathologist review Gabriel (Unsp spec) [Interp] Jennifer gray [facility] Work Phone: Pathologist review Gabriel (Unsp spec) [Interp] Reviewed [facility] Work Phone: Comment on above: Previous reported re sult: Jennifer gray Edited by: RGOALISE on 01/30/22:1545Neutrophilic leukocytosis.Clinical correlation necessary.Sim Hassan M.D. 01/30/22 AMENDED REPORT 01/30/22 1545 PATH REV previously reported as: Jennifer gray Serum or plasma acetone bucky urement (mass/volume)on 01-29-2022 Acetone [Mass/Vol] MODERATE NEG [facility] Work Phone: Serum or plasma calcium bucky urement (mass/volume)on 01-29-2022 Calcium [Mass/Vol] 8.7 mg/dL 8.5-10.1 [facility] Work Phone: Serum or plasma creatinine m easurement (mass/volume)on 01-29-2022 Creatinine [Mass/Vol] 0.91 mg/dL 0.70-1.30 [facility] Work Phone: Comment on above: The validity of the calculated GFR & GFRAA in patients over 70 years has not been determined. Clinical correlation is essential. Serum or plasma urea nitroge n measurement (mass/volume)on 01-29-2022 Urea nitrogen [Mass/Vol] 16 mg/dL 7-18 [facility] Work Phone: Thin prep Papanicolaou smear with manual screeningon 01-29-2022 Thin prep Papanicolaou smear with manual screening 8 5-15 [facility] Work Phone: Vital signson 01-29-2022 Oxygen saturation in Blood 86 % 50-70 [facility] Work Phone: pH measurementon 01-29-2022 pH (Unsp spec) 7.34 [pH] 7.32-7.42 [facility] Work Phone: Laboratory - Hematology and Cell countson 11-14-2021 HbA1c (Bld) [Mass fraction] 9.3 % [facility] Work Phone: Absolute lymphocyte counton 09-27-2021 Lymphocytes Auto (Unsp spec) [#/Vol] 1.25 10*3/uL 0.83-4.51 [facility] Work Phone: Basophil percentageon 2021 Basophils/100 WBC (Bld) 0.1 % 0-1 [facility] Work Phone: Chloride [Moles/Vol] 108 mmol/L 98-107 [facility] Work Phone: Eosinophils/100 WBC (Bld) 0.1 % 0-5 [facility] Work Phone: Glucose [Mass/Vol] 137 mg/dL 74-106 [facility] Work Phone: Comment on above: Fasting Glucose resu lt greater than or equal to 126 mg/dL suggests DIABETES MELLITUS per A.D.A. criteria. Neutrophils (Bld) [#/Vol] 7.3 10*3/uL 2.0-7.7 [facility] Work Phone: Neutrophils/100 WBC (Bld) 76.6 % 47-70 [facility] Work Phone: Potassium [Moles/Vol] 3.4 mmol/L 3.5-5.1 [facility] Work Phone: Sodium [Moles/Vol] 139 mmol/L 136-145 [facility] Work Phone: WBC (Bld) [#/Vol] 9.5 10*3/uL 4.4-11.0 [facility] Work Phone: Blood erythrocytes count (nu mber/volume)on 09-27-2021 RBC (Bld) [#/Vol] 4.53 10*6/uL 4.6-6.2 [facility] Work Phone: Blood hemoglobin measurement (mass/volume)on 09-27-2021 Hemoglobin (Bld) [Mass/Vol] 13.9 g/dL 13.0-16.5 [facility] Work Phone: Blood lymphocytes/100 leukoc yteson 09-27-2021 Lymphocytes/100 WBC (Bld) 13.2 % 19-41 [facility] Work Phone: Blood monocytes/100 leukocyt eson 09-27-2021 Monocytes/100 WBC (Bld) 9.7 % 0-10 [facility] Work Phone: Blood platelet mean volumeon 09-27-2021 Platelet mean volume (Bld) [Entitic vol] 9.4 fL 6.2-12.0 [facility] Work Phone: Determination of erythrocyte mean corpuscular volume (MCV)on 09-27-2021 MCV (RBC) [Entitic vol] 85.9 fL 80-94 [facility] Work Phone: Glucose Glucometer (BldC) [M ass/Vol]on 09-27-2021 Glucose [Mass/Vol] 135 mg/dL 74-106 [facility] Work Phone: Comment on above: MANAGEMENT OF PATIEN T CARE PER NURSING PROTOCOL Hematocrit Auto (Bld) [Volum e fraction]on 09-27-2021 Hematocrit (Bld) [Volume fraction] 38.9 % 40-54 [facility] Work Phone: Laboratory - Chemistry and C hemistry - challengeon 09-27-2021 CO2 [Moles/Vol] 22.0 mmol/L 21.0-32.0 [facility] Work Phone: Urea nitrogen/Creatinine [Mass ratio] 9.0 mg/mg 10-20 [facility] Work Phone: Laboratory - Hematology and Cell countson 09-27-2021 Erythrocyte distribution width (RBC) [Entitic vol] 39.5 fL 35.1-43.9 [facility] Work Phone: Erythrocyte distribution width (RBC) [Ratio] 12.6 % 11.6-14.6 [facility] Work Phone: Immature granulocytes/100 WBC (Bld) 0.300 % 0.0-0.9 [facility] Work Phone: Comment on above: IG% - Immature Granu locytes (promyelocytes, myelocytes and metamyelocytes) > 1% indicates that a LEFT SHIFT is Present. MCH (RBC) [Entitic mass] 30.7 pg 27.0-32.0 [facility] Work Phone: Nucleated RBC/100 WBC (Bld) [Ratio] 0 % 0-5 [facility] Work Phone: MCHC Auto (RBC) [Mass/Vol]on 09-27-2021 MCHC (RBC) [Mass/Vol] 35.7 g/dL 32-36 [facility] Work Phone: No Panel Informationon 09-27 Estimated Creatinine Clearance Calc 147.52 ml/min [facility] Work Phone: Estimated GFR (MDRD) Amer 133 mL/min >60 [facility] Work Phone: Comment on above: GFR Calc Estimated GFR (MDRD) Non-Af Amer 110 mL/min >60 [facility] Work Phone: Comment on above: Non- GFR Calc Platelets bldon 09-27-2021 Platelets (Bld) [#/Vol] 150 10*3/uL 150-450 [facility] Work Phone: Serum or plasma calcium bucky urement (mass/volume)on 09-27-2021 Calcium [Mass/Vol] 8.6 mg/dL 8.5-10.1 [facility] Work Phone: Serum or plasma creatinine m easurement (mass/volume)on 09-27-2021 Creatinine [Mass/Vol] 0.89 mg/dL 0.70-1.30 [facility] Work Phone: Comment on above: The validity of the calculated GFR & GFRAA in patients over 70 years has not been determined. Clinical correlation is essential. Serum or plasma urea nitroge n measurement (mass/volume)on 09-27-2021 Urea nitrogen [Mass/Vol] 8 mg/dL 7-18 [facility] Work Phone: Thin prep Papanicolaou smear with manual screeningon 09-27-2021 Thin prep Papanicolaou smear with manual screening 9 5-15 [facility] Work Phone: Basophil percentageon 2021 Bilirubin [Mass/Vol] 0.70 mg/dL 0.20-1.00 [facility] Work Phone: Comment on above: For patients on eltr ombopag therapy, use of Dimension Alexis TBIL is not recommended. Protein [Mass/Vol] 6.8 g/dL 6.4-8.2 [facility] Work Phone: Laboratory - Chemistry and C hemistry - challengeon 09-26-2021 ALP [Catalytic activity/Vol] 80 U/L 45-117 [facility] Work Phone: ALT [Catalytic activity/Vol] 30 U/L 16-61 [facility] Work Phone: Globulin (S) [Mass/Vol] 3.2 g/dL 2.2-4.2 [facility] Work Phone: Review by pathologiston Pathologist review Gabriel (Unsp spec) [Interp] Reviewed [facility] Work Phone: Comment on above: Previous reported re sult: Jennifer gray Edited by: FAITH on 09/27/21:1033Neutrophilic leukocytosis.Clinical correlation necessary.Sim Hassan M.D. 09/27/21 AMENDED REPORT 09/27/21 1033 PATH REV previously reported as: Jennifer gray Serum or plasma albumin bucky urement (mass/volume)on 09-26-2021 Albumin [Mass/Vol] 3.6 g/dL 3.2-5.0 [facility] Work Phone: Serum or plasma albumin/glob ulin mass ratioon 09-26-2021 Albumin/Globulin [Mass ratio] 1.1 {ratio} 0.9-2.4 [facility] Work Phone: Thin prep Papanicolaou smear with manual screeningon 09-26-2021 Thin prep Papanicolaou smear with manual screening 18 U/L 15-37 [facility] Work Phone: Whole blood hemoglobin A1c/t otal hemoglobin ratio (mass fraction)on 09-26-2021 HbA1c (Bld) [Mass fraction] 9.8 % 3.8-5.6 [facility] Work Phone: Comment on above: Normal < 5.7 % Predi abetic 5.7 - 6.4 % Diabetic >or= 6.5 % Please note range changes. Absolute lymphocyte counton 09-25-2021 Lymphocytes Auto (Unsp spec) [#/Vol] 1.17 10*3/uL 0.83-4.51 [facility] Work Phone: Basophil percentageon 2021 Basophil percentage 0 SEEN /hpf [facility] Work Phone: Chloride [Moles/Vol] 98 mmol/L 98-107 [facility] Work Phone: Glucose [Mass/Vol] 477 mg/dL 74-106 [facility] Work Phone: Comment on above: Critical Result(s) C alled at: 21:31:58 09/25/2021 by: Ana Paula Grant. Results read back by same.Glucose result greater than or equal to 200 mg/dLsuggests DIABETES MELLITUS per A.D.A. criteria. Potassium [Moles/Vol] 5.5 mmol/L 3.5-5.1 [facility] Work Phone: Sodium [Moles/Vol] 136 mmol/L 136-145 [facility] Work Phone: Basophil percentage 8.2 mg/dL 2.5-4.9 [facility] Work Phone: Basophils/100 WBC (Bld) 0.5 % 0-1 [facility] Work Phone: Bilirubin [Mass/Vol] 0.80 mg/dL 0.20-1.00 [facility] Work Phone: Comment on above: For patients on eltr ombopag therapy, use of Dimension Alexis TBIL is not recommended. Eosinophils/100 WBC (Bld) 0.1 % 0-5 [facility] Work Phone: [phone] Neutrophils (Bld) [#/Vol] 26.2 10*3/uL 2.0-7.7 [facility] Work Phone: Neutrophils/100 WBC (Bld) 85.9 % 47-70 [facility] Work Phone: Protein [Mass/Vol] 8.6 g/dL 6.4-8.2 [facility] Work Phone: WBC (Bld) [#/Vol] 30.5 10*3/uL 4.4-11.0 [facility] Work Phone: Comment on above: CRITICAL VALUE VERIF IED. CALLED TO JANESSA JUNG09/25/21 Gabe Alvarez.RESULTS READ BACK BY SAME . Bilirubin Test strip Ql (U)o n 09-25-2021 Bilirubin Ql (U) Negative Negative [facility] Work Phone: Blood erythrocytes count (nu mber/volume)on 09-25-2021 RBC (Bld) [#/Vol] 5.42 10*6/uL 4.6-6.2 [facility] Work Phone: Blood hemoglobin measurement (mass/volume)on 09-25-2021 Hemoglobin (Bld) [Mass/Vol] 16.6 g/dL 13.0-16.5 [facility] Work Phone: Blood lymphocytes/100 leukoc yteson 09-25-2021 Lymphocytes/100 WBC (Bld) 3.8 % 19-41 [facility] Work Phone: Blood manual differential co mment interpretation (narrative result)on 09-25-2021 Manual differential comment Gabriel (Bld) [Interp] See comment [facility] Work Phone: Comment on above: MONOCYTOSIS NOTEDNEU TROPHILIA NOTED Blood monocytes/100 leukocyt eson 09-25-2021 Monocytes/100 WBC (Bld) 8.6 % 0-10 [facility] Work Phone: Blood platelet adequacy dete ction by light microscopyon 09-25-2021 Platelets LM Ql (Bld) ADEQUATE ADEQ [facility] Work Phone: Blood platelet mean volumeon 09-25-2021 Platelet mean volume (Bld) [Entitic vol] 10.2 fL 6.2-12.0 [facility] Work Phone: Determination of erythrocyte mean corpuscular volume (MCV)on 09-25-2021 MCV (RBC) [Entitic vol] 92.1 fL 80-94 [facility] Work Phone: Direct bilirubinon 2 Bilirubin.direct [Mass/Vol] 0.15 mg/dL 0.00-0.30 [facility] Work Phone: Glucose Glucometer (BldC) [M ass/Vol]on 09-25-2021 Glucose [Mass/Vol] mg/dL 74-106 [facility] Work Phone: Comment on above: Dr Christina BOJORQUEZ OF PATIENT CARE PER NURSING PROTOCOL HCO3 (BldA) [Moles/Vol]on HCO3 (Bld) [Moles/Vol] 5 mmol/L 22- [facility] Work Phone: Hematocrit Auto (Bld) [Volum e fraction]on 09-25-2021 Hematocrit (Bld) [Volume fraction] 49.9 % 40-54 [facility] Work Phone: Ketones Test strip Ql (U)on 09-25-2021 Ketones Ql (U) 150 mg/dl Negative [facility] Work Phone: Comment on above: CRITICAL VALUE *HCRI TICAL VALUE VERIFIED. CALLED TO [id number] Ana Paula Field.RESULTS READ BACK BY SAME . Laboratory - Chemistry and C hemistry - challengeon 09-25-2021 CO2 [Moles/Vol] 7.0 mmol/L 21.0-32.0 [facility] Work Phone: Comment on above: Critical Result(s) C alled at: 21:31:39 09/25/2021 by: Ana Paula Field to [facility]. Results read back by same. Urea nitrogen/Creatinine [Mass ratio] 15.1 mg/mg 10-20 [facility] Work Phone: CO2 [Moles/Vol] 5 mmol/L 23-33 [facility] Work Phone: ALP [Catalytic activity/Vol] 117 U/L 45-117 [facility] Work Phone: ALT [Catalytic activity/Vol] 38 U/L 16-61 [facility] Work Phone: Globulin (S) [Mass/Vol] 3.9 g/dL 2.2-4.2 [facility] Work Phone: Magnesium [Mass/Vol] 2.6 mg/dL 1.6-2.6 [facility] Work Phone: Laboratory - Hematology and Cell countson 09-25-2021 Erythrocyte distribution width (RBC) [Entitic vol] 41.3 fL 35.1-43.9 [facility] Work Phone: Erythrocyte distribution width (RBC) [Ratio] 12.2 % 11.6-14.6 [facility] Work Phone: Immature granulocytes/100 WBC (Bld) 1.100 % 0.0-0.9 [facility] Work Phone: Comment on above: IG% - Immature Granu locytes (promyelocytes, myelocytes and metamyelocytes) > 1% indicates that a LEFT SHIFT is Present. MCH (RBC) [Entitic mass] 30.6 pg 27.0-32.0 [facility] Work Phone: Nucleated RBC/100 WBC (Bld) [Ratio] 0 % 0-5 [facility] Work Phone: MCHC Auto (RBC) [Mass/Vol]on 09-25-2021 MCHC (RBC) [Mass/Vol] 33.3 g/dL 32-36 [facility] Work Phone: Mucus LM Ql (Urine sed)on Mucus Ql (Urine sed) 0 SEEN /hpf [facility] Work Phone: Nitrite Test strip Ql (U)on 09-25-2021 Nitrite Ql (U) Negative Negative [facility] Work Phone: No Panel Informationon 09-25 Respiratory Panel (PCR) [facility] Work Phone: Estimated Creatinine Clearance Calc 68.38 ml/min [facility] Work Phone: Estimated GFR (MDRD) Amer 55 mL/min >60 [facility] Work Phone: Comment on above: GFR Calc Estimated GFR (MDRD) Non-Af Amer 46 mL/min >60 [facility] Work Phone: Comment on above: Non- GFR Calc Bed Mix Venous Bld PCO2 at Pat Temp 20.8 mmHg 41-51 [facility] Work Phone: Bld Gas Crit Called To/Read Back By Yes [facility] Work Phone: Blood Gas Notified Time 18:50:44 [facility] Work Phone: Blood Gas Notified Whom Kennedy [facility] Work Phone: Blood Gas Specimen Type BRITTNY [facility] Work Phone: Oxygen Delivery Device Room Air [facility] Work Phone: Venous Blood Base Excess -27 mmol/L -1.0-3.5 [facility] Work Phone: PO2 venouson 09-25-2021 Oxygen (BldV) [Partial pressure] 50 mm[Hg] 25-40 [facility] Work Phone: Platelets bldon 09-25-2021 Platelets (Bld) [#/Vol] 334 10*3/uL 150-450 [facility] Work Phone: Protein Test strip Ql (U)on 09-25-2021 Protein Ql (U) 30 mg/dl Negative [facility] Work Phone: RBC morphologyon 09-25-2021 RBC morphology finding Nom (Bld) NORM C+C NORMAL NORM C&C [facility] Work Phone: Review by pathologiston Pathologist review Gabriel (Unsp spec) [Interp] May foll [facility] Work Phone: Serum or plasma acetone bucky urement (mass/volume)on 09-25-2021 Acetone [Mass/Vol] LARGE NEG [facility] Work Phone: Serum or plasma albumin bucky urement (mass/volume)on 09-25-2021 Albumin [Mass/Vol] 4.7 g/dL 3.2-5.0 [facility] Work Phone: Serum or plasma calcium bucky urement (mass/volume)on 09-25-2021 Calcium [Mass/Vol] 8.5 mg/dL 8.5-10.1 [facility] Work Phone: Serum or plasma creatinine m easurement (mass/volume)on 09-25-2021 Creatinine [Mass/Vol] 1.92 mg/dL 0.70-1.30 [facility] Work Phone: Comment on above: The validity of the calculated GFR & GFRAA in patients over 70 years has not been determined. Clinical correlation is essential. Serum or plasma urea nitroge n measurement (mass/volume)on 09-25-2021 Urea nitrogen [Mass/Vol] 29 mg/dL 7-18 [facility] Work Phone: Squamous epithelial cells de tection in urine sediment by light microscopyon 09-25-2021 Epithelial cells.squamous LM Ql (Urine sed) 0 SEEN /hpf [facility] Work Phone: Thin prep Papanicolaou smear with manual screeningon 09-25-2021 Thin prep Papanicolaou smear with manual screening 31 5-15 [facility] Work Phone: Thin prep Papanicolaou smear with manual screening 23 U/L 15-37 [facility] Work Phone: Urine blood detectionon RBC Ql (U) 50 /ul Negative [facility] Work Phone: RBC Ql (U) 0 SEEN /hpf [facility] Work Phone: Urine clarityon 09-25-2021 Clarity (U) Clear Clear [facility] Work Phone: Urine color determinationon 09-25-2021 Color (U) Yellow Yellow [facility] Work Phone: Urine glucose detectionon Glucose Ql (U) 1000 mg/dl Normal [facility] Work Phone: Urine leukocyte esterase det ection by dipstickon 09-25-2021 Leukocyte esterase Test strip Ql (U) Negative Negative [facility] Work Phone: Urine pHon 09-25-2021 pH (U) 5.0 [pH] [facility] Work Phone: Urine sediment bacteria coun t by microscopy (number/high power field)on 09-25-2021 Bacteria LM.HPF (Urine sed) [#/Area] 0 /[HPF] None Seen [facility] Work Phone: Urine specific gravity measu rementon 09-25-2021 Specific gravity (U) [Rel density] 1.025 [facility] Work Phone: Urobilinogen Auto test strip Ql (U)on 09-25-2021 Urobilinogen Ql (U) Normal mg/dl Normal [facility] Work Phone: Vital signson 09-25-2021 Oxygen saturation in Blood 63 % 50-70 [facility] Work Phone: pH measurementon 09-25-2021 pH (Unsp spec) 6.96 [pH] 7.32-7.42 [facility] Work Phone: Complete Blood Count + Diffe rentialon 07-26-2021 Basophils/100 WBC (Bld) 0.8 % 0.0 - 2.0 [facility] Work Phone: Erythrocyte distribution width (RBC) [Ratio] 12.3 % See Below [facility] Work Phone: Comment on above: Reference Range: 11. 5 - 14.5 Hematocrit (Bld) [Volume fraction] 51.4 % See Below [facility] Internal Medicine Work Phone: Comment on above: Reference Range: 41. 0 - 52.0 Hemoglobin (Bld) [Mass/Vol] 17.2 g/dL See Below [facility] Internal Medicine Work Phone: Comment on above: Reference Range: 13. 5 - 17.5 Lymphocytes/100 WBC (Bld) 23.1 % See Below [facility] Internal Medicine Work Phone: Comment on above: Reference Range: 13. 0 - 44.0 MCHC (RBC) [Mass/Vol] 33.5 g/dL See Below [facility] Internal Medicine Work Phone: Comment on above: Reference Range: 32. 0 - 36.0 MCV (RBC) [Entitic vol] 92 fL 80 - 100 [facility] Internal Medicine Work Phone: Monocytes/100 WBC (Bld) 10.6 % 2.0 - 10.0 [facility] Internal Medicine Work Phone: Neutrophils/100 WBC (Bld) 62.8 % See Below [facility] Internal Medicine Work Phone: Comment on above: Reference Range: 40. 0 - 80.0 Platelets (Bld) [#/Vol] 289 10*3/uL 150 - 450 [facility] Internal Medicine Work Phone: RBC (Bld) [#/Vol] 5.61 {x10E12/L} See Below [facility] Internal Medicine Work Phone: Comment on above: Reference Range: 4.5 0 - 5.90 WBC (Bld) [#/Vol] 8.6 10*3/uL 4.4 - 11.3 [facility] Internal Medicine Work Phone: Complete Blood Count + Differential 0.07 {x10E9/L} See Below [facility] Internal Medicine Work Phone: Comment on above: Reference Range: 0.0 0 - 0.10 Complete Blood Count + Differential 0.17 {x10E9/L} See Below [facility] Internal Medicine Work Phone: Comment on above: Reference Range: 0.0 0 - 0.70 Complete Blood Count + Differential 0.91 {x10E9/L} See Below [facility] Internal Medicine Work Phone: Comment on above: Reference Range: 0.1 0 - 1.00 Complete Blood Count + Differential 1.99 {x10E9/L} See Below [facility] Internal Medicine Work Phone: Comment on above: Reference Range: 1.2 0 - 4.80 Complete Blood Count + Differential 5.41 {x10E9/L} See Below [facility] Work Phone: Comment on above: Reference Range: 1.2 0 - 7.70 Complete Blood Count + Differential 2.0 % 0.0 - 6.0 [facility] Internal Medicine Work Phone: Complete Blood Count + Differential 0.7 % 0.0 - 0.9 [facility] Medicine Work Phone: Comment on above: Immature Granulocyte Count (IG) includes promyelocytes, myelocytes and metamyelocytes but does not include bands. Percent differential counts (%) should be interpreted in the context of the absolute cell counts (cells/L). Complete Blood Count + Differential 0.0 {/100_WBC} 0.0-0.0 [facility] Internal Medicine Work Phone: Hemoglobin A1Con 07-26-2021 Glucose [Mass/Vol] 235 mg/dL [facility] Internal Medicine Work Phone: HbA1c (Bld) [Mass fraction] 9.8 % Abnormal [facility] Internal Medicine Work Phone: Comment on above: Diagnosis of Diabete s-Adults Non-Diabetic: < or = 5.6% Increased risk for developing diabetes: 5.7-6.4% Diagnostic of diabetes: > or = 6.5%. Monitoring of Diabetes Age (y) Therapeutic Goal (%) Adults: >18 <7.0 Pediatrics: 13-18 <7.5 7-12 <8.0 0- 6 7.5-8.5 [employer] [employer]. Diabetes Care 33(S1), May 2009. Laboratory - Chemistry and C hemistry - challengeon 07-26-2021 Albumin BCP dye [Mass/Vol] 4.8 g/dL 3.4 - 5.0 [facility] Internal Medicine Work Phone: Albumin Ql (U) 263.0 mg/L See Below [facility] Internal Medicine Work Phone: Comment on above: Reference Range: Not Established Albumin/Creatinine DL <= 20 mg/L (U) [Mass ratio] 263.5 {ug/mg_crt} above high threshold 0.0 - 30.0 -[facility] Internal Medicine Work Phone: ALP [Catalytic activity/Vol] 121 U/L above high threshold 33 - 120 -[facility] Internal Medicine Work Phone: ALT With P-5'-P [Catalytic activity/Vol] 34 U/L 10 - 52 -[facility] Internal Medicine Work Phone: Comment on above: Patients treated wit h Sulfasalazine may generate falsely decreased results for ALT. Anion gap [Moles/Vol] 15 mmol/L 10 - 20 - [facility] Internal Medicine Work Phone: AST With P-5'-P [Catalytic activity/Vol] 21 U/L 9 - 39 -[facility] Internal Medicine Work Phone: Bilirubin [Mass/Vol] 0.5 mg/dL 0.0 - 1.2 -[facility] Internal Medicine Work Phone: Calcium [Mass/Vol] 10.6 mg/dL 8.6 - 10.6 [facility] Work Phone: Chloride [Moles/Vol] 99 mmol/L 98 - 107 [facility] Internal Medicine Work Phone: CO2 [Moles/Vol] 31 mmol/L 21 - 32 -João sanchez Internal Medicine Work Phone: Creatinine (U) [Mass/Vol] 99.8 mg/dL See Below -[facility] Internal Medicine Work Phone: Comment on above: Reference Range: 20. 0 - 370.0 Creatinine [Mass/Vol] 0.89 mg/dL See Below [facility] Work Phone: Comment on above: Reference Range: 0.5 0 - 1.30 Glucose [Mass/Vol] 243 mg/dL above high threshold 74 - 99 -[facility] Work Phone: Potassium [Moles/Vol] 4.3 mmol/L 3.5 - 5.3 [facility] Work Phone: Protein [Mass/Vol] 7.7 g/dL 6.4 - 8.2 -[facility] Internal Medicine Work Phone: Sodium [Moles/Vol] 141 mmol/L 136 - 145 -[facility] Internal Medicine Work Phone: Urea nitrogen [Mass/Vol] 15 mg/dL 6 - 23 -[facility] Work Phone: Lipid Panelon 07-26-2021 Cholesterol [Mass/Vol] 242 mg/dL above hig h threshold 0 - 199 -[facility] Work Phone: Comment on above: . AGE DESIRABLE BORD MARCY HIGH HIGH 0-19 Y 0 - 169 170 - 199 >/= 200 20-24 Y 0 - 189 190 - 224 >/= 225 >24 Y 0 - 199 200 - 239 >/= 240 All ranges are based on fasting samples. Specific therapeutic targets will vary based on patient-specific cardiac risk.. Pediatric guidelines reference:Pediatrics 2011, 128(S5). Adult guidelines reference: NCEP ATPIII Guidelines, TODD 2001, 258:2486-97. Venipuncture immediately after or during the administration of Metamizole may lead to falsely low results. Testing should be performed immediately prior to Metamizole dosing. Cholesterol in HDL [Mass/Vol] 56.5 mg/dL [facility] Internal Medicine Work Phone: Comment on above: . AGE VERY LOW LOW N ORMAL HIGH 0-19 Y < 35 < 40 40-45 ---- 20-24 Y ---- < 40 >45 ---- >24 Y ---- < 40 40-60 >60. Cholesterol in LDL [Mass/Vol] 148 mg/dL above high threshold 0 - 119 [facility] Internal Medicine Work Phone: Comment on above: . NEAR BORD AGE KRISTY RABLE OPTIMAL HIGH HIGH VERY HIGH 0-19 Y 0 - 109 --- 110-129 >/= 130 ---- 20-24 Y 0 - 119 --- 120-159 >/= 160 ---- >24 Y 0 - 99 100-129 130-159 160-189 >/=190. Cholesterol.total/Chol esterol in HDL [Mass ratio] 4.3 {ratio} [facility] Internal Medicine Work Phone: Comment on above: REF VALUESDESIRABLE < 3.4HIGH RISK > 5.0 Triglyceride [Mass/Vol] 186 mg/dL above high threshold 0 - 149 [facility] Medicine Work Phone: Comment on above: . AGE DESIRABLE BORD MARCY HIGH HIGH VERY HIGH 0 D-90 D 19 - 174 ---- ---- ----91 D- 9 Y 0 - 74 75 - 99 >/= 100 ---- 10-19 Y 0 - 89 90 - 129 >/= 130 ---- 20-24 Y 0 - 114 115 - 149 >/= 150 ---- >24 Y 0 - 149 150 - 199 200- 499 >/= 500. Venipuncture immediately after or during the administration of Metamizole may lead to falsely low results. Testing should be performed immediately prior to Metamizole dosing. Lipid Panel 37 mg/dL 0 - 40 [facility] Internal Medicine Work Phone: No Panel Informationon 07-26 >90 >90 [facility] Internal Medicine Work Phone: Comment on above: CALCULATIONS OF LUIS EFLIPE MATED GFR ARE PERFORMED USING THE 2020 CKD-EPI STUDY REFIT EQUATION WITHOUT THE RACE VARIABLE FOR THE IDMS-TRACEABLE CREATININE METHODS.https://jasn.asnjournals.org/content/22/A SN.5209474442 Office Visit (Internal Medic ine)on 07-26-2021 Follow-up visit Diagnoses/Problems Assessed Never smoker Benign essential hypertension (401.1) (I10) URI (upper respiratory infection) (465.9) (J06.9) 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) Depression screening (V79.0) (Z13.31) Diabetes mellitus with complication (250.90) (E11.8) Mixed hyperlipidemia (272.2) (E78.2) Overweight with body mass index (BMI) of 27 to 27.9 in adult (278.02,V85.23) (E66.3,Z68.27) Orders Benign essential hypertension Start: Metoprolol Succinate ER 25 MG Oral Tablet Extended Release 24 Hour (Toprol XL); TAKE 1 TABLET DAILY Rx By: Dexter Daniel; Dispense: 0 Days ; #:90 Tablet; Refill: 3;For: Benign essential hypertension; FROY = N; Sent To: [facility]; Last Updated By: [employer]; 07/26/2021 9:33:03 AM SocHx: Never smoker Tobacco Use Screening; Status:Complete; Done: 26Jul2021 Perform:Not Applicable;Ordered; For:SocHx: Never smoker; Ordered By:Dexter Daniel; URI (upper respiratory infection) Start: Amoxicillin 500 MG Oral Tablet; TAKE 1 TABLET 3 TIMES DAILY Rx By: Dexter Daniel; Dispense: 10 Days ; #:30 Tablet; Refill: 0;For: URI (upper respiratory infection); RFOY = N; Sent To: [facility]; Last Updated By: [employer]; 07/26/2021 9:33:04 AM Patient Discussion/Summary Healthy Lifestyle changes to help lower BP Stop smoking Regular exercise Lose weight Salt reduction Healthy diet and drinks Lower alcohol intake Home blood pressure monitor and Keep home log to bring into doctors office New Guidelines: Goal: <130/80, if >80 YO 140/80 Lab: Serum sodiumpotassium and creatinine Lipid profile and glucose Urinalysis Urine spot protein Twelve-lead EKG Recommed yearly eye exam Evaluation Exclude drug-induced hypertension Evaluate for organ damage Considered at hisCV risk factors Cardiovascular risk evaluation Signs and symptom of secondary hypertension Check adherence Treatment plan Consider mono-therapy in patients >80 YO or frail Start with low-dose Lorenzo/Arb + DHP+CCB Increase to full dose Add Thiazide like diuretic Add spiralactone Yearly eye exam GOAL= quality of life improvement/blood pressure less than 120/80 Follow up every 3-4 months Provider Impressions This is a 26-year-old patient have a hypertension obesity chronic fatigue syndrome depression diabetes type 1 complaining of a sore throat cough congestion headache onset acutely duration 2 weeks progressed intermittently aggravated by change of the weather acid reflux obesity post viral infection went to urgent care given medicine doesn't get any better Problem #1 upper respiratory infection immunocompromised host with the tonsillitis given Rocephin 1 g intramuscular amoxicillin 503 times a day probiotic twice a day salt water gargle Hypertension Toprol-XL 25 mg a day Proteinuria 10 mg ramipril Hyperlipidemia Lipitor 10 mg a day Diabetes continue Novolin pump Obesity BMI 27 diet and exercise Sent for the blood test follow-up in 6 to 8 weeks Chief Complaint Chief Complaints Visit For: Other sore throat, headaches, 2 weeks now Adult Risk Screening Initial Fall Risk Screening: JORGE has not fallen in the last 6 months. History of Present Illness This is a 26-year-old patient have a hypertension obesity chronic fatigue syndrome depression diabetes type 1 complaining of a sore throat cough congestion headache onset acutely duration 2 weeks progressed intermittently aggravated by change of the weather acid reflux obesity post viral infection went to urgent care given medicine doesn't get any better Problem #1 upper respiratory infection immunocompromised host with the tonsillitis given Rocephin 1 g intramuscular amoxicillin 503 times a day probiotic twice a day salt water gargle Hypertension Toprol-XL 25 mg a day Proteinuria 10 mg ramipril Hyperlipidemia Lipitor 10 mg a day Diabetes continue Novolin pump Obesity BMI 27 diet and exercise Sent for the blood test follow-up in 6 to 8 weeks 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) Depression screening (V79.0) (Z13.31) Diabetes mellitus with complication (250.90) (E11.8) Mixed hyperlipidemia (272.2) (E78.2) Past Medical History Problems History of chronic fatigue syndrome (V13.89) (Z87.898) History of No history of previous surgery Family History Mother Family history of thyroid disease (V18.19) (Z83.49) Sister Family history of thyroid disease (V18.19) (Z83.49) Social History Problems Never smoker Allergies Medication No Known Drug Allergies Recorded By: Dexter Daniel; 07/10/2020 2:58:24 PM Current Meds Medication NameInstruction Aspirin 81 MG Oral Tablet Delayed Release Atorvastatin Calcium 10 MG Oral TabletTAKE 1 TABLET DAILY. NovoLOG 100 UNIT/ML Subcutaneous Solution Ramipril 10 MG Oral CapsuleTAKE 1 CAPSULE DAILY IN THE PM Vitals Vital Signs Recorded: 26Jul2021 09:18AM Temperature9 (more content not included)... Normal [facility] TSH - Thyroid Stimulating Ho rmone, Serumon 07-26-2021 TSH Qn 2.54 m[IU]/L See Below [facility] Internal Medicine Work Phone: Comment on above: Reference Range: 0.4 4 - 3.98 TSH testing is performed using different testing methodology at [facility] than at other [facility]. Direct result comparisons should only be made within the same method. Tobacco Screening.on 022 Fall risk assessment a) No falls within the last year [facility] Internal Medicine Work Phone: Tobacco use status [facility] b) No [facility] Internal Medicine Work Phone: Vitamin D 25-Hydroxyon 07-26 25-hydroxyvitamin D3 [Mass/Vol] 11 ng/mL Abnormal [facility] Internal Medicine Work Phone: Comment on above: .DEFICIENCY: < 20 NG /MLINSUFFICIENCY: 20-29 NG/MLSUFFICIENCY: 30-100 NG/MLTHIS ASSAY ACCURATELY QUANTIFIES THE SUM OFVITAMIN D3, 25-HYDROXY AND VIT D2,25-HYDROXY. 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 The left lobe measures approximately 5.3 x 1.6 x 1.3 cm. The isthmus measures approximately 3 mm.IMPRESSION: Homogeneous thyroid echotexture, without focal thyroid nodule.Coil Winding Supervisor : LESA Transcribe Date/Time: Sep 02 2017 7:58ADictated by : GEE TEJADA MDThis examination was interpreted and the report reviewed and electronically signed by: GEE TEJADA MD on Sep 02 2017 7:59AM [facility] Vital Signs Date Time Vital Sign Value Performing Clinician Facility 03-02-2024 11:00-0400 Body temperature 97 [degF] Mona Rodriguez DO Work Phone: [facility] 03-02-2024 08:22-0400 Diastolic blood pressure 109 mm[Hg] Mona Rodriguez DO Work Phone: [facility] 03-02-2024 08:22-0400 Heart rate 78 /min Mona Rodriguez DO Work Phone: [facility] 03-02-2024 08:22-0400 Systolic blood pressure 151 mm[Hg] Mona Rodriguez DO Work Phone: [facility] 03-02-2024 06:00-0400 Respiratory rate 25 /min Mona Rodriguez DO Work Phone: [facility] 03-02-2024 06:00-0400 SaO2% (BldA) [Mass fraction] 100 % Mona Rodriguez DO Work Phone: 8(527)146-789042 [place] [address] 03-02-2024 01:24-0400 Body height 186 cm Mona Rodriguez DO Work Phone: 1(985)863-442082 [place] [address] 03-02-2024 01:24-0400 Body mass index (BMI) [Ratio] 25.26 kg/m2 Mona Rodriguez DO Work Phone: 5(092)734-480742 [place] [address] 03-02-2024 01:24-0400 Body weight 87.4 kg Mona Rodriguez DO Work Phone: 2(706)214-863842 [place] [address] 03-01-2024 18:35-0400 Body temperature 37.0 Mona Rodriguez DO Work Phone: [facility] 03-01-2024 18:30-0400 Body temperature 37.0 degrees Celsius [facility] Comment on above: Performed By: #### [id number] #### [facility] ([id number]) [facility] ([facility]) [address] [place] [address] 12-15-2023 09:53-0400 Body height 185.4 cm Dexter Daniel MD Work Phone: [facility] 12-15-2023 09:53-0400 Body mass index (BMI) [Ratio] 27.42 kg/m2 Detxer Daniel MD Work Phone: [facility] 12-15-2023 09:53-0400 Body temperature 97.11 [degF] Dexter Daniel MD Work Phone: [facility] 12-15-2023 09:53-0400 Body weight 94.26 kg Dexter Daniel MD Work Phone: 9(608)473-240817 [place] [address] 12-15-2023 09:53-0400 Diastolic blood pressure 78 mm[Hg] Dexter Daniel MD Work Phone: 8(833)602-342886 [place] [address] 12-15-2023 09:53-0400 Heart rate 85 /min Dexter Daniel MD Work Phone: 8(771)539-859417 [place] [address] 12-15-2023 09:53-0400 SaO2% (BldA) [Mass fraction] 98 % Dexter Daniel MD Work Phone: 8(382)713-738317 [place] [address] 12-15-2023 09:53-0400 Systolic blood pressure 142 mm[Hg] Dexter Daniel MD Work Phone: 5(991)571-376417 [place] [address] 12-08-2023 14:14-0400 Body height 185.4 cm Dexter Daniel MD Work Phone: 2(156)783-488317 [place] [address] 12-08-2023 14:14-0400 Body mass index (BMI) [Ratio] 25.99 kg/m2 Dexter Daniel MD Work Phone: 9(652)425-606917 [place] [address] 12-08-2023 14:14-0400 Body weight 89.36 kg Dexter Daniel MD Work Phone: 1(221)560-827917 [place] [address] 12-08-2023 14:14-0400 Diastolic blood pressure 90 mm[Hg] Dexter Daniel MD Work Phone: 7(930)563-275517 [place] [address] 12-08-2023 14:14-0400 Heart rate 109 /min Dexter Daniel MD Work Phone: 9(353)538-761317 [place] [address] 12-08-2023 14:14-0400 SaO2% (BldA) [Mass fraction] 98 % Dexter Daniel MD Work Phone: 0(207)570-211817 [place] [address] 12-08-2023 14:14-0400 Systolic blood pressure 160 mm[Hg] Dexter Daniel MD Work Phone: [facility] 09-04-2023 11:27-0400 Body temperature 98 [degF] Dr. Paul Ontiveros Work Phone: [facility] 09-04-2023 11:27-0400 Diastolic blood pressure 97 mm[Hg] Dr. Paul Ontiveros Work Phone: [facility] 09-04-2023 11:27-0400 Heart rate 87 /min Dr. Paul Ontiveros Work Phone: [facility] 09-04-2023 11:27-0400 Respiratory rate 16 /min Dr. Paul Ontiveros Work Phone: [facility] 09-04-2023 11:27-0400 SaO2% (BldA) [Mass fraction] 99 % Dr. Paul Ontiveros Work Phone: [facility] 09-04-2023 11:27-0400 Systolic blood pressure 150 mm[Hg] Dr. Paul Ontiveros Work Phone: [facility] 09-04-2023 07:40-0400 Body height 185.[address] Paul Ontiveros Work Phone: [facility] 09-04-2023 07:40-0400 Body mass index (BMI) [Ratio] 25.1 kg/m2 Dr. Paul Ontiveros Work Phone: [facility] 09-04-2023 07:40-0400 Body weight 86.[address] Paul Ontiveros Work Phone: [facility] 08-15-2023 15:23-0400 Body mass index (BMI) [Ratio] 25.8 kg/m2 Dr. Paul Ontiveros Work Phone: [facility] 08-15-2023 15:23-0400 Body temperature 98.2 [degF] Dr. Paul Ontiveros Work Phone: [facility] 08-15-2023 15:23-0400 Body weight 88.[address] Paul Ontiveros Work Phone: [facility] 08-15-2023 15:23-0400 Diastolic blood pressure 93 mm[Hg] Dr. Paul Ontiveros Work Phone: [facility] 08-15-2023 15:23-0400 Heart rate 83 /min Dr. Paul Ontiveros Work Phone: [facility] 08-15-2023 15:23-0400 SaO2% (BldA) [Mass fraction] 98 % Dr. Paul Ontiveros Work Phone: [facility] 08-15-2023 15:23-0400 Systolic blood pressure 150 mm[Hg] Dr. Paul Ontiveros Work Phone: [facility] 06-09-2023 08:47-0500 Body height 185.4 cm Dexter Daniel MD Work Phone: 7(002)313-277186 [place] [address] 06-09-2023 08:47-0500 Body mass index (BMI) [Ratio] 25.46 kg/m2 Dexter Daniel MD Work Phone: 2(033)926-903886 [place] [address] 06-09-2023 08:47-0500 Body temperature 97.59 [degF] Dexter Daniel MD Work Phone: 1(730)103-223986 [place] [address] 06-09-2023 08:47-0500 Body weight 87.54 kg Dexter Daniel MD Work Phone: 5(929)892-344486 [place] [address] 06-09-2023 08:47-0500 Diastolic blood pressure 107 mm[Hg] Dexter Daniel MD Work Phone: 4(197)018-779986 [place] [address] 06-09-2023 08:47-0500 Heart rate 107 /min Dexter Daniel MD Work Phone: 6(319)332-624486 [place] [address] 06-09-2023 08:47-0500 SaO2% (BldA) [Mass fraction] 97 % Dexter Daniel MD Work Phone: [facility] 06-09-2023 08:47-0500 Systolic blood pressure 146 mm[Hg] Dexter Daniel MD Work Phone: [facility] 03-23-2023 08:54-0400 Heart rate 66 /min Dr. Dafne Cornell Work Phone: [facility] 03-23-2023 08:00-0400 Body temperature 97.3 [degF] Dr. Dafne Cornell Work Phone: [facility] 03-23-2023 08:00-0400 Diastolic blood pressure 68 mm[Hg] Dr. Dafne Cornell Work Phone: [facility] 03-23-2023 08:00-0400 Respiratory rate 16 /min Dr. Dafne Cornell Work Phone: [facility] 03-23-2023 08:00-0400 SaO2% (BldA) [Mass fraction] 100 % Dr. Dafne Cornell Work Phone: [facility] 03-23-2023 08:00-0400 Systolic blood pressure 115 mm[Hg] Dr. Dafne Cornell Work Phone: [facility] 03-20-2023 10:28-0400 Body height 185.[address] Dafne Cornell Work Phone: [facility] 03-20-2023 10:28-0400 Body mass index (BMI) [Ratio] 24.2 kg/m2 Dr. Dafne Cornell Work Phone: [facility] 03-20-2023 10:28-0400 Body weight 83.[address] Dafne Cornell Work Phone: [facility] 10-22-2022 13:03-0400 Body height 185.4 cm Dexter Daniel MD Work Phone: [facility] 10-22-2022 13:03-0400 Body mass index (BMI) [Ratio] 24.94 kg/m2 Dexter Daniel MD Work Phone: [facility] 10-22-2022 13:03-0400 Body temperature 97.3 [degF] Dexter Daniel MD Work Phone: [facility] 10-22-2022 13:03-0400 Body weight 85.73 kg Dexter Daniel MD Work Phone: [facility] 10-22-2022 13:03-0400 Diastolic blood pressure 93 mm[Hg] Dexter Daniel MD Work Phone: [facility] 10-22-2022 13:03-0400 Heart rate 96 /min Dexter Daniel MD Work Phone: [facility] 10-22-2022 13:03-0400 SaO2% (BldA) [Mass fraction] 96 % Dexter Daniel MD Work Phone: [facility] 10-22-2022 13:03-0400 Systolic blood pressure 138 mm[Hg] Dexter Daniel MD Work Phone: [facility] 07-22-2022 16:33-0500 Body height 185.42 cm Dexter Daniel Work Phone: [facility] Work Phone: 07-22-2022 16:33-0500 Body mass index (BMI) [Ratio] 24.41 kg/m2 Dexter Daniel Work Phone: [facility] Work Phone: 07-22-2022 16:33-0500 Body surface area Derived from formula 2.08 m2 Dexter Daniel Work Phone: [facility] Work Phone: 07-22-2022 16:33-0500 Body temperature 97.3 [degF] Dexter Daniel Work Phone: [facility] Work Phone: 07-22-2022 16:33-0500 Body weight 83.92 kg Valdevante D Ann Mariepara Work Phone: [facility] Work Phone: 07-22-2022 16:33-0500 Diastolic blood pressure 93 mm[Hg] Valdevante D Munjapara Work Phone: [facility] Work Phone: 07-22-2022 16:33-0500 Heart rate 101 /min Valdevante D Ann Mariepara Work Phone: [facility] Work Phone: 07-22-2022 16:33-0500 SaO2% (BldA) [Mass fraction] 99 % Dexter Jesuspara Work Phone: [facility] Work Phone: 07-22-2022 16:33-0500 Systolic blood pressure 134 mm[Hg] Dexter D Ann Mariepara Work Phone: [facility] Work Phone: 07-16-2022 11:36-0500 Body temperature 97.6 [degF] Dr. Lavell Patel Work Phone: [facility] 07-16-2022 11:36-0500 Diastolic blood pressure 104 mm[Hg] Dr. Lavell Patel Work Phone: [facility] 07-16-2022 11:36-0500 Heart rate 86 /min Dr. Lavell Patel Work Phone: [facility] 07-16-2022 11:36-0500 Respiratory rate 15 /min Dr. Lavell Patel Work Phone: [facility] 07-16-2022 11:36-0500 SaO2% (BldA) [Mass fraction] 99 % Dr. Lavell Patel Work Phone: [facility] 07-16-2022 11:36-0500 Systolic blood pressure 145 mm[Hg] Dr. Lavell Patel Work Phone: [facility] 07-16-2022 04:47-0500 Body mass index (BMI) [Ratio] 24.3 kg/m2 Dr. Lavell Patel Work Phone: [facility] 07-16-2022 04:47-0500 Body weight 83.[address] Lavell Patel Work Phone: [facility] 07-16-2022 00:37-0500 Body height 185.[address] Lavell Patel Work Phone: [facility] 07-16-2022 00:05-0500 Body temperature 98.2 [degF] Dr. Lavell Patel Work Phone: [facility] 07-16-2022 00:05-0500 Diastolic blood pressure 99 mm[Hg] Dr. Lavell Patel Work Phone: [facility] 07-16-2022 00:05-0500 Heart rate 88 /min Dr. Lavell Patel Work Phone: [facility] 07-16-2022 00:05-0500 Respiratory rate 16 /min Dr. Lavell Patel Work Phone: [facility] 07-16-2022 00:05-0500 SaO2% (BldA) [Mass fraction] 97 % Dr. Lavell Patel Work Phone: [facility] 07-16-2022 00:05-0500 Systolic blood pressure 162 mm[Hg] Dr. Lavell Patel Work Phone: [facility] 07-15-2022 21:19-0500 Body height 185.[address] Lavell Patel Work Phone: [facility] 07-15-2022 21:19-0500 Body mass index (BMI) [Ratio] 23.6 kg/m2 Dr. Lavell Patel Work Phone: [facility] 07-15-2022 21:19-0500 Body weight 81.[address] Lavell Patel Work Phone: [facility] 07-03-2022 19:51-0500 Diastolic blood pressure 97 mm[Hg] Dr. Lavell Patel Work Phone: [facility] 07-03-2022 19:51-0500 Heart rate 79 /min Dr. Lavell Patel Work Phone: [facility] 07-03-2022 19:51-0500 Respiratory rate 16 /min Dr. Lavell Patel Work Phone: [phone] [place] [address] 07-03-2022 19:51-0500 SaO2% (BldA) [Mass fraction] 99 % Dr. Lavell Patel Work Phone: [facility] 07-03-2022 19:51-0500 Systolic blood pressure 157 mm[Hg] Dr. Lavell Patel Work Phone: [facility] 07-03-2022 15:43-0500 Body height 185.[address] Lavell Patel Work Phone: [facility] 07-03-2022 15:43-0500 Body mass index (BMI) [Ratio] 26.4 kg/m2 Dr. Lavell Patel Work Phone: [facility] 07-03-2022 15:43-0500 Body temperature 96.9 [degF] Dr. Lavell Patel Work Phone: [facility] 07-03-2022 15:43-0500 Body weight 90.[address] Lavell Patel Work Phone: [facility] 06-20-2022 13:29-0500 Body temperature 98.1 [degF] Dr. Lavell Patel Work Phone: [facility] 06-20-2022 13:29-0500 Diastolic blood pressure 82 mm[Hg] Dr. Lavell Patel Work Phone: [facility] 06-20-2022 13:29-0500 Heart rate 71 /min Dr. Lavell Patel Work Phone: [facility] 06-20-2022 13:29-0500 Respiratory rate 18 /min Dr. Lavell Patel Work Phone: [facility] 06-20-2022 13:29-0500 SaO2% (BldA) [Mass fraction] 98 % Dr. Lavell Patel Work Phone: [facility] 06-20-2022 13:29-0500 Systolic blood pressure 132 mm[Hg] Dr. Lavell Patel Work Phone: [facility] 06-17-2022 11:46-0500 Body height 185.[address] Lavell Patel Work Phone: [facility] 06-17-2022 11:46-0500 Body mass index (BMI) [Ratio] 25.9 kg/m2 Dr. Lavell Patel Work Phone: [facility] 06-17-2022 11:46-0500 Body weight 89.[address] Lavell Patel Work Phone: [facility] 06-17-2022 11:00-0500 Diastolic blood pressure 79 mm[Hg] Dr. Paul Ontiveros Work Phone: [facility] 06-17-2022 11:00-0500 Heart rate 82 /min Dr. Paul Ontiveros Work Phone: [facility] 06-17-2022 11:00-0500 Respiratory rate 16 /min Dr. Paul Ontiveros Work Phone: [facility] 06-17-2022 11:00-0500 SaO2% (BldA) [Mass fraction] 99 % Dr. Paul Ontiveros Work Phone: [facility] 06-17-2022 11:00-0500 Systolic blood pressure 123 mm[Hg] Dr. Paul Ontiveros Work Phone: [facility] 06-17-2022 10:18-0500 Body temperature 98.3 [degF] Dr. Paul Ontiveros Work Phone: [facility] 06-17-2022 07:49-0500 Body height 185.[address] Paul Ontiveros Work Phone: [facility] 06-17-2022 07:49-0500 Body mass index (BMI) [Ratio] 26.1 kg/m2 Dr. Paul Ontiveros Work Phone: [facility] 06-17-2022 07:49-0500 Body weight 89.[address] Paul Ontiveros Work Phone: [facility] 06-06-2022 16:46-0500 Body height 185.42 cm Dexter Daniel Work Phone: [facility] Work Phone: 06-06-2022 16:46-0500 Body mass index (BMI) [Ratio] 27.31 kg/m2 Dexter Jesuspara Work Phone: [facility] Work Phone: 06-06-2022 16:46-0500 Body surface area Derived from formula 2.18 m2 Dexter Jesuspara Work Phone: [facility] Work Phone: 06-06-2022 16:46-0500 Body temperature 97.5 [degF] Dexter Jesuspara Work Phone: [facility] Work Phone: 06-06-2022 16:46-0500 Body weight 93.9 kg Valdevante Jesuspara Work Phone: [facility] Work Phone: 06-06-2022 16:46-0500 Diastolic blood pressure 96 mm[Hg] Dexter Jesuspara Work Phone: [facility] Work Phone: 06-06-2022 16:46-0500 Heart rate 108 /min Dexter Jesuspara Work Phone: [facility] Work Phone: 06-06-2022 16:46-0500 SaO2% (BldA) [Mass fraction] 98 % Dexter Jesuspara Work Phone: [facility] Work Phone: 06-06-2022 16:46-0500 Systolic blood pressure 140 mm[Hg] Dexter Jesuspara Work Phone: [facility] Work Phone: 06-01-2022 14:25-0500 Diastolic blood pressure 107 mm[Hg] Dr. Paul Ontiveros Work Phone: [facility] 06-01-2022 14:25-0500 Heart rate 80 /min Dr. Paul Ontiveros Work Phone: [facility] 06-01-2022 14:25-0500 Respiratory rate 16 /min Dr. Paul Ontiveros Work Phone: [facility] 06-01-2022 14:25-0500 SaO2% (BldA) [Mass fraction] 96 % Dr. Paul Ontiveros Work Phone: [facility] 06-01-2022 14:25-0500 Systolic blood pressure 161 mm[Hg] Dr. Paul Ontiveros Work Phone: [facility] 06-01-2022 13:49-0500 Body height 185.[address] Paul Ontiveros Work Phone: [facility] Work Phone: 06-01-2022 13:49-0500 Body mass index (BMI) [Ratio] 26.4 kg/m2 Dr. Paul Ontiveros Work Phone: [facility] 06-01-2022 13:49-0500 Body temperature 97.2 [degF] Dr. Paul Ontiveros Work Phone: [facility] 06-01-2022 13:49-0500 Body weight 90.[address] Paul Ontiveros Work Phone: [facility] 05-29-2022 13:42-0500 Body mass index (BMI) [Ratio] 26.4 kg/m2 Dr. Paul Ontiveros Work Phone: [facility] 05-29-2022 13:42-0500 Body temperature 96.6 [degF] Dr. Paul Ontiveros Work Phone: [facility] 05-29-2022 13:42-0500 Body weight 90.[address] Paul Ontiveros Work Phone: [facility] 05-29-2022 13:42-0500 Diastolic blood pressure 84 mm[Hg] Dr. Paul Ontiveros Work Phone: [facility] 05-29-2022 13:42-0500 Heart rate 113 /min Dr. Paul Ontiveros Work Phone: [facility] 05-29-2022 13:42-0500 Respiratory rate 18 /min Dr. Paul Ontiveros Work Phone: [facility] 05-29-2022 13:42-0500 SaO2% (BldA) [Mass fraction] 97 % Dr. Paul Ontiveros Work Phone: [facility] 05-29-2022 13:42-0500 Systolic blood pressure 135 mm[Hg] Dr. Paul Ontiveros Work Phone: [facility] 05-03-2022 19:43-0500 Diastolic blood pressure 99 mm[Hg] [facility] 05-03-2022 19:43-0500 Heart rate 102 /min [facility] 05-03-2022 19:43-0500 Respiratory rate 16 /min [facility] 05-03-2022 19:43-0500 SaO2% (BldA) [Mass fraction] 98 % [facility] 05-03-2022 19:43-0500 Systolic blood pressure 153 mm[Hg] [facility] 05-03-2022 14:54-0500 Body temperature 98.5 [degF] [facility] 05-03-2022 13:26-0500 Body height 185.42 cm [facility] Work Phone: 05-03-2022 13:26-0500 Body mass index (BMI) [Ratio] 25 kg/m2 [facility] 05-03-2022 13:26-0500 Body weight 86.18 kg [facility] 01-29-2022 15:48-0400 Diastolic blood pressure 97 mm[Hg] Dr. Yrn Pollock Work Phone: [facility] Work Phone: 01-29-2022 15:48-0400 Heart rate 80 /min Dr. Yrn Pollock Work Phone: [facility] Work Phone: 01-29-2022 15:48-0400 Systolic blood pressure 141 mm[Hg] Dr. Yrn Pollock Work Phone: [facility] Work Phone: 01-29-2022 09:51-0400 Body height 187.[address] Yrn Pollock Work Phone: [facility] Work Phone: 01-29-2022 09:51-0400 Body mass index (BMI) [Ratio] 25 kg/m2 Dr. Yrn Pollock Work Phone: [facility] Work Phone: 01-29-2022 09:51-0400 Body temperature 97 [degF] Dr. Yrn Pollock Work Phone: [facility] Work Phone: 01-29-2022 09:51-0400 Body weight 88.[address] Yrn Pollock Work Phone: [facility] Work Phone: 01-29-2022 09:51-0400 Respiratory rate 16 /min Dr. Yrn Pollock Work Phone: [facility] Work Phone: 01-29-2022 09:51-0400 SaO2% (BldA) [Mass fraction] 100 % Dr. Yrn Pollock Work Phone: [facility] Work Phone: 11-14-2021 09:59-0400 Body mass index (BMI) [Ratio] 25.2 kg/m2 Dr. Yrn Pollock Work Phone: [facility] Work Phone: 11-14-2021 09:59-0400 Body temperature 93.7 [degF] Dr. Yrn Pollock Work Phone: [facility] Work Phone: 11-14-2021 09:59-0400 Body weight 88.[address] Yrn Pollock Work Phone: [facility] Work Phone: 11-14-2021 09:59-0400 Diastolic blood pressure 98 mm[Hg] Dr. Yrn Pollock Work Phone: [facility] Work Phone: 11-14-2021 09:59-0400 Heart rate 90 /min Dr. Yrn Pollock Work Phone: [facility] Work Phone: 11-14-2021 09:59-0400 Respiratory rate 18 /min Dr. Yrn Pollock Work Phone: [facility] Work Phone: 11-14-2021 09:59-0400 SaO2% (BldA) [Mass fraction] 99 % Dr. Yrn Pollock Work Phone: [facility] Work Phone: 11-14-2021 09:59-0400 Systolic blood pressure 140 mm[Hg] Dr. Yrn Pollock Work Phone: [facility] Work Phone: 09-27-2021 10:10-0400 Body temperature 97.7 [degF] Dr. Sachin Kennedy Work Phone: [facility] Work Phone: 09-27-2021 10:10-0400 Diastolic blood pressure 88 mm[Hg] Dr. Sachin Kennedy Work Phone: [facility] Work Phone: 09-27-2021 10:10-0400 Heart rate 73 /min Dr. Sachin Kennedy Work Phone: [facility] Work Phone: 09-27-2021 10:10-0400 Respiratory rate 18 /min Dr. Sachin Kennedy Work Phone: [facility] Work Phone: 09-27-2021 10:10-0400 SaO2% (BldA) [Mass fraction] 100 % Dr. Sachin Kennedy Work Phone: [facility] Work Phone: 09-27-2021 10:10-0400 Systolic blood pressure 133 mm[Hg] Dr. Sachin Kennedy Work Phone: [facility] Work Phone: 09-27-2021 05:29-0400 Body weight [address] Sachin Kennedy Work Phone: [facility] Work Phone: 09-26-2021 09:30-0400 Body height 187.[address] Sachin Kennedy Work Phone: [facility] Work Phone: 09-25-2021 22:17-0400 Diastolic blood pressure 91 mm[Hg] [facility] Work Phone: 09-25-2021 22:17-0400 Heart rate 140 /min [facility] Work Phone: 09-25-2021 22:17-0400 Systolic blood pressure 137 mm[Hg] [facility] Work Phone: 09-25-2021 20:17-0400 Body height 187.96 cm [facility] Work Phone: 09-25-2021 20:17-0400 Body mass index (BMI) [Ratio] 24.7 kg/m2 [facility] Work Phone: 09-25-2021 20:17-0400 Body weight 87.5 kg [facility] Work Phone: 09-25-2021 19:35-0400 Body temperature 98 [degF] [facility] Work Phone: 09-25-2021 19:35-0400 Respiratory rate 21 /min [facility] Work Phone: 09-25-2021 19:35-0400 SaO2% (BldA) [Mass fraction] 100 % [facility] Work Phone: 07-26-2021 09:18-0500 Body height 185.42 cm Katerinadevante Frey Marianowendiea Work Phone: [facility] Work Phone: 07-26-2021 09:18-0500 Body mass index (BMI) [Ratio] 27.15 kg/m2 Katerinadevante Jesuspara Work Phone: [facility] Work Phone: 07-26-2021 09:18-0500 Body surface area Derived from formula 2.18 m2 Dexter Jesuspara Work Phone: [facility] Work Phone: 07-26-2021 09:18-0500 Body temperature 97.4 [degF] Dexter Jesuspara Work Phone: [facility] Work Phone: 07-26-2021 09:18-0500 Body weight 93.35 kg Dexter Wrayjapara Work Phone: [facility] Work Phone: 07-26-2021 09:18-0500 Diastolic blood pressure 96 mm[Hg] Valji D Munjapara Work Phone: -[facility] Work Phone: 07-26-2021 09:18-0500 Systolic blood pressure 130 mm[Hg] Valji D Munjapara Work Phone: -[facility] Work Phone: 06-11-2021 14:07-0500 Diastolic blood pressure 90 mm[Hg] Valji D Munjapara Work Phone: -[facility] Work Phone: 06-11-2021 14:07-0500 Systolic blood pressure 160 mm[Hg] Valji D Munjapara Work Phone: [facility] Work Phone: 06-11-2021 13:43-0500 Body temperature 97.4 [degF] Valji D Munjapara Work Phone: -[facility] Work Phone: 06-11-2021 13:43-0500 Body weight 92.99 kg Valji D Munjapara Work Phone: -[facility] Work Phone: 06-11-2021 13:43-0500 Heart rate 104 /min Valji D Munjapara Work Phone: -[facility] Work Phone: 06-11-2021 13:43-0500 SaO2% (BldA) [Mass fraction] 98 % Valji D Munjapara Work Phone: [facility] Work Phone: Encounters Encounter Date Encounter Type Care Provider Facility Start: 05-09-2025 ambulatory Valji Munjapara Facilit y:[facility] Start: 09-20-2024 End: 09-20-2024 ambulatory Valji Munjapara Facility:[facility] Start: 06-19-2024 End: 06-19-2024 [facility] Facility:[facility] Start: 06-15-2024 End: 06-15-2024 ambulatory Paul Weston Facility:[facility] Start: 03-01-2024 End: 03-02-2024 Evaluation and management of inpatient [facility] Work Phone: Comment on above: DKA, type 1, not at goal (Primary Dx); Acute pancreatitis, unspecified complication status, unspecified pancreatitis type (HHS-HCC); Hypertension, unspecified type Start: 12-15-2023 End: 12-15-2023 Office outpatient visit 25 minutes Dexter Daniel MD Work Phone: [facility] Comment on above: Fatty liver (Primary Dx); Elevated uric acid in blood; DM type 2 with diabetic mixed hyperlipidemia (Multi); Gout, unspecified cause, unspecified chronicity, unspecified site; Alcohol abuse; GERD without esophagitis; Primary hypertension; Hypertension, unspecified type Start: 12-15-2023 End: 12-15-2023 ambulatory [facility] Start: 12-11-2023 End: 12-11-2023 Subsequent hospital visit by physician Jc Gomez [address] [place] [address] Comment on above: Abdominal pain, unsp ecified abdominal location Chronic kidney disea se, unspecified CKD stage Start: 12-11-2023 End: 12-11-2023 [facility] Start: 12-08-2023 End: 12-08-2023 Periodic preventive med est patient 18-39 yrs Dexter Daniel MD Work Phone: [facility] Comment on above: Annual visit for gen eral adult medical examination with abnormal findings (Primary Dx); Chronic kidney disease, unspecified CKD stage; Abdominal pain, unspecified abdominal location; 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); Current mild episode of major depressive disorder without prior episode (CMS-HCC); DM type 2 with diabetic mixed hyperlipidemia (Multi); Alcohol abuse; Hypertension, unspecified type; GERD without esophagitis Start: 12-08-2023 End: 12-08-2023 ambulatory [facility] Start: 12-08-2023 End: 12-08-2023 Patient encounter procedure Dexter Daniel MD Work Phone: [facility] Work Phone: Start: 09-04-2023 End: 09-04-2023 Emergency department patient visit Dr. Paul Ontiveros Work Phone: [facility] Work Phone: Start: 08-15-2023 End: 08-15-[address] Paul Ontiveros Work Phone: [facility] Work Phone: Start: 06-09-2023 End: 06-09-2023 Office outpatient visit 25 minutes Dexter Daniel MD Work Phone: [facility] Comment on above: Alcohol abuse (Prima ry Dx); Fatigue due to depression; Diabetes mellitus type 2 with neurological manifestations ([facility]/HCC); Current mild episode of major depressive disorder without prior episode ([facility]/HCC); Hypertension, unspecified type; DM type 2 with diabetic mixed hyperlipidemia ([facility]/HCC); Abdominal pain, unspecified abdominal location; GERD without esophagitis Start: 06-09-2023 End: 06-09-2023 ambulatory [facility] Start: 03-23-2023 Non-patient / Non-visit Dr. Francisco Cornell Work Phone: [facility] Work Phone: Start: 03-22-2023 Non-patient / Non-visit Dr. Francisco Cornell Work Phone: [facility] Work Phone: Start: 03-21-2023 Non-patient / Non-visit Dr. Francisco Cornell Work Phone: [facility] Work Phone: Start: 03-20-2023 End: 03-23-2023 Evaluation and management of inpatient Dr. Dafne Cornell Work Phone: [facility] 3 Work Phone: Start: 10-22-2022 End: 12-15-2023 Patient encounter procedure Dexter Daniel MD Work Phone: [facility] Work Phone: Start: 10-22-2022 End: 10-22-2022 Periodic preventive med est patient 18-39 yrs Dexter Daniel MD Work Phone: [facility] Comment on above: Annual visit for [facility] adult medical examination with abnormal findings (Primary Dx); Diabetes mellitus type 2 with neurological manifestations ([facility]/HCC); Current mild episode of major depressive disorder without prior episode ([facility]/HCC); Hypertension, unspecified type; DM type 2 with diabetic mixed hyperlipidemia ([facility]/HCC); GERD without esophagitis Start: 07-22-2022 Office outpatient vi sit 25 minutes Dexter Daniel Work Phone: [facility] Work Phone: Start: 07-16-2022 Non-patient / Non-visit Dr. Cheryl Patel Work Phone: [facility] Start: 07-15-2022 Non-patient / Non-visit Dr. Cheryl Patel Work Phone: [facility] Start: 07-15-2022 End: 07-16-2022 Evaluation and management of inpatient Dr. Lavell Patel Work Phone: [facility]Intensive [facility] Unit Start: 07-03-2022 End: 07-03-2022 Emergency department patient visit Dr. Lavell Patel Work Phone: [facility]Emergency Department Start: 06-20-2022 Non-patient / Non-visit Dr. Cheryl Patel Work Phone: [facility] Start: 06-19-2022 Non-patient / Non-visit Dr. Cheryl Patel Work Phone: [facility] Start: 06-18-2022 Non-patient / Non-visit Dr. Cheryl Patel Work Phone: [facility] Start: 06-17-2022 Non-patient / Non-visit Dr. Cheryl Patel Work Phone: [facility] Start: 06-17-2022 End: 06-20-2022 Evaluation and management of inpatient [facility] Start: 06-06-2022 Office outpatient vi sit 25 minutes Dexter Daniel Work Phone: [facility] Work Phone: Start: 06-01-2022 End: 06-01-2022 Emergency department patient visit Dr. Paul Ontiveros Work Phone: [facility]Emergency Department Start: 05-29-2022 End: 05-29-[address] Paul Ontiveros Work Phone: [facility] Start: 05-03-2022 End: 05-03-2022 Emergency department patient visit [facility] Start: 01-29-2022 End: 01-29-2022 Emergency department patient visit Dr. Yrn Pollock Work Phone: [facility]Emergency Department Start: 11-14-2021 End: 11-14-[address] Yrn Pollock Work Phone: [facility] Endocrinology Start: 09-27-2021 Non-patient / Non-visit Dr. Carrillo Kennedy Work Phone: [facility] Inpatient Phys[facility] Start: 09-26-2021 Non-patient / Non-visit Dr. Carrillo Kennedy Work Phone: [facility] Start: 09-25-2021 End: 09-27-2021 Evaluation and management of inpatient [facility]Intensive Care Unit Start: 07-27-2021 Chart Update Dexter gutierrez Work Phone: [facility] Work Phone: Start: 07-26-2021 Office outpatient vi sit 25 minutes Dexter Jesuspara Work Phone: [facility] Work Phone: Start: 06-11-2021 Office outpatient ne w 30 minutes Dexter Jesuspara Work Phone: [facility] Work Phone: Start: 02-10-2018 End: 02-11-2018 Patient encounter DEFAULT PHYSICIAN Facility:[facility] Start: 09-02-2017 [facility] Procedures Date Procedure Procedure Detail Performing Clinician Start: 03-02-2024 Glucose quantitative blood xcpt reagent strip Dafne Ramos MD Work Phone: Start: 03-02-2024 SST TOP Pierce harris MD Work Phone: Start: 03-02-2024 End: 03-02-2024 Glucose quantitative blood xcpt reagent strip Dafne Ramos MD Work Phone: Start: 03-02-2024 End: 03-02-2024 EXTRA TUBES Dexter Daniel MD Work Phone: Start: 03-02-2024 LAVENDER TOP Dexter hurtado MD Work Phone: Start: 03-02-2024 End: 03-02-2024 Basic metabolic panel calcium total Gordon M Mahesh DO Work Phone: Start: 03-02-2024 End: 03-02-2024 Glucose quantitative blood xcpt reagent strip Angelito Fabian DO Work Phone: Start: 03-01-2024 Potassium serum plasma/whole blood Angelito Hampton Fabian DO Work Phone: Start: 03-01-2024 End: 03-01-2024 Comprehensive metabolic panel Gordon Aragon DO Work Phone: Start: 03-01-2024 Ecg routine ecg w/le ast 12 lds trcg only w/o i&r Gordon Aragon DO Work Phone: Start: 03-01-2024 Urinalysis complete W Reflex Culture panel - Urine Mona Rodriguez DO Work Phone: Start: 03-01-2024 Urnls dip stick/tabl et reagent auto microscopy Mona Rodriguez DO Work Phone: Start: 03-01-2024 Ct abdomen & pelvis w/contrast material Mona Rodriguez DO Work Phone: Start: 03-01-2024 Influenza virus A an d B RNA [Identifier] in Unspecified specimen by JUAN J with probe detection Mona Rodriguez DO Work Phone: Start: 03-01-2024 Respiratory syncytia l virus RNA [Presence] in Respiratory specimen by JUAN J with probe detection Mona Rodriguez DO Work Phone: Start: 03-01-2024 SARS-CoV-2 (COVID-19 ) RNA [Presence] in Respiratory specimen by JUAN J with probe detection Mona Rodriguez DO Work Phone: Start: 03-01-2024 Comprehensive metabo lic panel Mona Rodriguez DO Work Phone: Start: 03-01-2024 Gases blood o2 satur ation only direct bucky Mona Rodriguez DO Work Phone: Start: 03-01-2024 Lipid panel Gordon reyes DO Work Phone: Start: 03-01-2024 Lipid 1996 panel - S tonio or Plasma Mona Rodriguez DO Work Phone: Start: 03-01-2024 Thyrotropin [Units/v olume] in Serum or Plasma Mona Rodriguez DO Work Phone: Start: 06-09-2023 ALBUMIN, URINE RANDOM V ALJI MUNJAPARA Start: 06-09-2023 CBC W Auto Different ial panel - Blood DEXTER DANIEL Start: 06-09-2023 Comprehensive metabo lic 2000 panel - Serum or Plasma DEXTER DANIEL Start: 06-09-2023 Cyanocobalamin vitamin b-12 DEXTER CASTREJONA Start: 06-09-2023 DRUG SCREEN, URINE W ITH REFLEX TO CONFIRMATION DEXTER CASTREJONA Start: 06-09-2023 Hemoglobin A1c/Hemoglobin.total in Blood DEXTER DANIEL Start: 06-09-2023 HEPATITIS C ANTIBODY VA JEYSON DANIEL Start: 06-09-2023 HIV 1/2 ANTIGEN/ANTI BODY SCREEN WIH REFLEX TO CONFIRMATION DEXTER DANIEL Start: 06-09-2023 IRON AND TIBC DEXTER WAITE Start: 06-09-2023 Lipid panel DEXTER VOGT Start: 06-09-2023 Magnesium [Mass/volu me] in Serum or Plasma DEXTER DANIEL Start: 06-09-2023 MICROSCOPIC ONLY, URINE DEXTER DANIEL Start: 06-09-2023 TESTOSTERONE,FREE AND TOTAL DEXTER DANIEL Start: 06-09-2023 THYROXINE, FREE DEXTER ROGERSPARA Start: 06-09-2023 TSH WITH REFLEX TO F REE T4 IF ABNORMAL DEXTER DANIEL Start: 06-09-2023 Urate [Mass/volume] in Serum or Plasma DEXTER DANIEL Start: 06-09-2023 Lipid 1996 panel - S tonio or Plasma Dexter Daniel MD Work Phone: Start: 05-03-2022 CT of head without contrast Start: 05-03-2022 Plain chest X-ray Start: 09-25-2021 Plain chest X-ray Start: 09-25-2021 Respiratory Panel (PCR) Dr. Sachin Kennedy Work Phone: Start: 07-26-2021 Lipid 1996 panel - S tonio or Plasma Dexter Daniel MD Work Phone: Plan of Treatment Date Care Activity Detail Author Start: 2046 Zoster Vaccines (1 of 2) Zoster Vacc stephanie (1 of 2) [facility] Start: 06-09-2028 Cyanocobalamin vitam in b-12 Vitamin B-12 [facility] Start: 03-01-2025 Lipid panel Lipid Panel [facility] Start: 03-01-2025 Thyroid stimulating hormone measurement TSH Level [facility] Start: 12-08-2024 Yearly Adult Physical Yearly Adult P hysical [facility] Start: 12-07-2024 Diabetic foot examination Diabetes: Foot Exam [facility] Start: 06-09-2024 Diabetic foot examination Diabetes: Foot Exam [facility] Start: 06-09-2024 Lipid panel Lipid Panel [facility] Start: 06-09-2024 Urine screening for protein Diabetes: Urine Protein Screening [facility] Start: 06-01-2024 Hemoglobin A1c measurement Diabetes: Hemoglobin A1C [facility] Start: 03-16-2024 End: 03-16-2024 Patient encounter procedure 03/16/2024 4:30 PM EDT Office Visit [facility] Medicine [address] [phone] Dexetr Daniel MD [address] [place] [address] [facility] Start: 03-07-2024 Glaucoma screening Diabetes: R etinopathy Screening [facility] Start: 01-25-2024 Influenza vaccination Influenza Vacc ine (#1) [facility] Start: 01-05-2024 End: 01-05-2024 Patient encounter procedure 01/05/2024 3:00 PM EDT Office Visit [facility] [address] [phone] Dexter Daniel MD [address] [place] [address] [facility] Start: 12-15-2023 End: 12-14-2024 Comprehensive metabolic 2000 panel - Serum or Plasma Comprehensive Metabolic Panel Lab Routine Fatty liver Expected: 12/15/2023 (Approximate), Expires: 12/14/2024 [facility] Work Phone: Comment on above: Expected: 12/15/2023 (Approximate), Expires: 12/14/2024 Start: 12-15-2023 End: 12-14-2024 Urate [Mass/volume] in Serum or Plasma Uric Acid Lab Routine Fatty liver Expected: 12/15/2023 (Approximate), Expires: 12/14/2024 [facility] Work Phone: Comment on above: Expected: 12/15/2023 (Approximate), Expires: 12/14/2024 Start: 12-15-2023 End: 12-15-2023 Patient encounter procedure 12/15/2023 9:45 AM EDT Office Visit [facility] [id number] [place] [phone] Dexter Daniel MD [address] [place] [address] [facility] Start: 12-08-2023 End: 12-07-2024 CBC W Auto Differential panel - Blood CBC and Auto Differential Lab Routine Chronic kidney disease, unspecified CKD stage Abdominal pain, unspecified abdominal location 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) Current mild episode of major depressive disorder without prior episode (CMS-HCC) DM type 2 with diabetic mixed hyperlipidemia (Multi) Alcohol abuse Expected: 12/08/2023 (Approximate), Expires: 12/07/2024 [facility] Work Phone: Comment on above: Expected: 12/08/2023 (Approximate), Expires: 12/07/2024 Start: 12-08-2023 End: 06-09-2025 Colonoscopy study Colonoscopy Screening; Average Risk Patient Endoscopy Routine Chronic kidney disease, unspecified CKD stage Abdominal pain, unspecified abdominal location 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) Current mild episode of major depressive disorder without prior episode (CMS-HCC) DM type 2 with diabetic mixed hyperlipidemia (Multi) Alcohol abuse Expected: 12/08/2023 (Approximate), Expires: 06/09/2025 [facility] Work Phone: Comment on above: Expected: 12/08/2023 (Approximate), Expires: 06/09/2025 Start: 12-08-2023 End: 12-07-2024 Comprehensive metabolic 2000 panel - Serum or Plasma Comprehensive Metabolic Panel Lab Routine Chronic kidney disease, unspecified CKD stage Abdominal pain, unspecified abdominal location 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) Current mild episode of major depressive disorder without prior episode (CMS-HCC) DM type 2 with diabetic mixed hyperlipidemia (Multi) Alcohol abuse Expected: 12/08/2023 (Approximate), Expires: 12/07/2024 [facility] Work Phone: Comment on above: Expected: 12/08/2023 (Approximate), Expires: 12/07/2024 Start: 12-08-2023 End: 12-07-2024 Hemoglobin A1c/Hemoglobin.total in Blood Hemoglobin A1c Lab Routine Chronic kidney disease, unspecified CKD stage Abdominal pain, unspecified abdominal location 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) Current mild episode of major depressive disorder without prior episode (CMS-HCC) DM type 2 with diabetic mixed hyperlipidemia (Multi) Alcohol abuse Expected: 12/08/2023 (Approximate), Expires: 12/07/2024 [facility] Service Area Work Phone: Comment on above: Expected: 12/08/2023 (Approximate), Expires: 12/07/2024 Start: 12-08-2023 End: 12-07-2024 Lipid 1996 panel - Serum or Plasma Lipid Panel Lab Routine Chronic kidney disease, unspecified CKD stage Abdominal pain, unspecified abdominal location 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) Current mild episode of major depressive disorder without prior episode (CMS-HCC) DM type 2 with diabetic mixed hyperlipidemia (Multi) Alcohol abuse Expected: 12/08/2023 (Approximate), Expires: 12/07/2024 [facility] Work Phone: Comment on above: Expected: 12/08/2023 (Approximate), Expires: 12/07/2024 Start: 12-08-2023 End: 12-07-2024 Microalbumin/Creatinine [Mass Ratio] in Urine Albumin-Creatinine Ratio, Urine Random Lab Routine Chronic kidney disease, unspecified CKD stage Abdominal pain, unspecified abdominal location 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) Current mild episode of major depressive disorder without prior episode (CMS-HCC) DM type 2 with diabetic mixed hyperlipidemia (Multi) Alcohol abuse Expected: 12/08/2023 (Approximate), Expires: 12/07/2024 [facility] Work Phone: Comment on above: Expected: 12/08/2023 (Approximate), Expires: 12/07/2024 Start: 12-08-2023 End: 12-07-2025 Stress cardiac echo study report Echocardiogram Stress Test Stress Echocardiography Routine Chronic kidney disease, unspecified CKD stage Abdominal pain, unspecified abdominal location 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) Current mild episode of major depressive disorder without prior episode (CMS-HCC) DM type 2 with diabetic mixed hyperlipidemia (Multi) Alcohol abuse Expected: 12/08/2023 (Approximate), Expires: 12/07/2025 [facility] Work Phone: Comment on above: Expected: 12/08/2023 (Approximate), Expires: 12/07/2025 Start: 12-08-2023 End: 12-07-2024 TSH with reflex to Free T4 if abnormal TSH with reflex to Free T4 if abnormal Lab Routine Chronic kidney disease, unspecified CKD stage Abdominal pain, unspecified abdominal location 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) Current mild episode of major depressive disorder without prior episode (CMS-HCC) DM type 2 with diabetic mixed hyperlipidemia (Multi) Alcohol abuse Expected: 12/08/2023 (Approximate), Expires: 12/07/2024 [facility] Work Phone: Comment on above: Expected: 12/08/2023 (Approximate), Expires: 12/07/2024 Start: 12-08-2023 End: 12-07-2024 Urate [Mass/volume] in Serum or Plasma Uric Acid Lab Routine Chronic kidney disease, unspecified CKD stage Abdominal pain, unspecified abdominal location 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) Current mild episode of major depressive disorder without prior episode (CMS-HCC) DM type 2 with diabetic mixed hyperlipidemia (Multi) Alcohol abuse Expected: 12/08/2023 (Approximate), Expires: 12/07/2024 [facility] Work Phone: Comment on above: Expected: 12/08/2023 (Approximate), Expires: 12/07/2024 Start: 12-08-2023 End: 12-07-2024 US Biliary ducts and Gallbladder US biliary system Imaging Routine Abdominal pain, unspecified abdominal location Expected: 12/08/2023, Expires: 12/07/2024 [facility] Work Phone: Comment on above: Expected: 12/08/2023 , Expires: 12/07/2024 Start: 12-08-2023 End: 12-07-2024 US Kidney - bilateral and Urinary bladder US renal complete Imaging Routine Chronic kidney disease, unspecified CKD stage Expected: 12/08/2023, Expires: 12/07/2024 [facility] Work Phone: Comment on above: Expected: 12/08/2023 , Expires: 12/07/2024 Start: 10-27-2023 End: 10-27-2023 Patient encounter procedure 10/27/2023 1:00 PM EDT Office Visit [facility] [address] [facility] [address] [place] [phone] Dexter Daniel MD [address] [place] [address] [facility] Start: 10-24-2023 Yearly Adult Physical Yearly Adult P hysical [facility] Start: 09-08-2023 Hemoglobin A1c measurement Diabetes: Hemoglobin A1C [facility] Start: 09-04-2023 [facility] Start: 06-09-2023 End: 06-09-2024 CBC W Auto Differential panel - Blood [facility] Work Phone: Comment on above: Expected: 06/09/2023 (Approximate), Expires: 06/09/2024 Start: 06-09-2023 End: 06-09-2024 Cobalamin (Vitamin B12) [Mass/volume] in Serum or Plasma [facility] Work Phone: Comment on above: Expected: 06/09/2023 (Approximate), Expires: 06/09/2024 Start: 06-09-2023 End: 06-09-2024 Comprehensive metabolic 2000 panel - Serum or Plasma [facility] Work Phone: Comment on above: Expected: 06/09/2023 (Approximate), Expires: 06/09/2024 Start: 06-09-2023 End: 06-09-2024 Drugs of abuse screen W Reflex confirm panel - Urine [facility] Work Phone: Comment on above: Expected: 06/09/2023 (Approximate), Expires: 06/09/2024 Start: 06-09-2023 End: 06-09-2024 Hemoglobin A1c/Hemoglobin.total in Blood [facility] Work Phone: Comment on above: Expected: 06/09/2023 (Approximate), Expires: 06/09/2024 Start: 06-09-2023 End: 06-09-2024 Hepatitis C virus Ab [Presence] in Serum [facility] Work Phone: Comment on above: Expected: 06/09/2023 (Approximate), Expires: 06/09/2024 Start: 06-09-2023 End: 06-09-2024 HIV 1+2 Ab+HIV1 p24 Ag [Presence] in Serum or Plasma by Immunoassay [facility] Service Area Work Phone: Comment on above: Expected: 06/09/2023 (Approximate), Expires: 06/09/2024 Start: 06-09-2023 End: 06-09-2024 Iron and Iron binding capacity panel - Serum or Plasma [facility] Work Phone: Comment on above: Expected: 06/09/2023 (Approximate), Expires: 06/09/2024 Start: 06-09-2023 End: 06-09-2024 Lipid 1996 panel - Serum or Plasma [facility] Work Phone: Comment on above: Expected: 06/09/2023 (Approximate), Expires: 06/09/2024 Start: 06-09-2023 End: 06-09-2024 Magnesium [Mass/volume] in Serum or Plasma [facility] Work Phone: Comment on above: Expected: 06/09/2023 (Approximate), Expires: 06/09/2024 Start: 06-09-2023 End: 06-09-2024 Microalbumin/Creatinine [Mass Ratio] in Urine [facility] Work Phone: Comment on above: Expected: 06/09/2023 (Approximate), Expires: 06/09/2024 Start: 06-09-2023 End: 06-09-2024 Testosterone, total and free [facility] Work Phone: Comment on above: Expected: 06/09/2023 (Approximate), Expires: 06/09/2024 Start: 06-09-2023 End: 06-09-2024 TSH with reflex to Free T4 if abnormal [facility] Work Phone: Comment on above: Expected: 06/09/2023 (Approximate), Expires: 06/09/2024 Start: 06-09-2023 End: 06-09-2024 Urate [Mass/volume] in Serum or Plasma [facility] Work Phone: Comment on above: Expected: 06/09/2023 (Approximate), Expires: 06/09/2024 Start: 06-09-2023 End: 06-09-2024 Urinalysis microscopic panel - Urine Qualitative by Automated [facility] Work Phone: Comment on above: Expected: 06/09/2023 (Approximate), Expires: 06/09/2024 Start: 06-09-2023 End: 06-09-2024 US Biliary ducts and Gallbladder US biliary system Imaging Routine Abdominal pain, unspecified abdominal location Expected: 06/09/2023, Expires: 06/09/2024 [facility] Work Phone: Comment on above: Expected: 06/09/2023 , Expires: 06/09/2024 Start: 03-23-2023 Patient discharge [facility] Start: 03-20-2023 [facility] Start: 03-20-2023 Following clinical pathway protocol [facility] Start: 03-20-2023 Assessment of risk o f venous thromboembolism [facility] Start: 03-20-2023 Care regimes management [facility] Start: 03-20-2023 Insertion of cathete r into peripheral vein [facility] Start: 03-20-2023 Notification of physician [facility] Start: 03-20-2023 Providing care accor ding to standard [facility] Start: 03-20-2023 Referral to service [facility] Start: 03-20-2023 [facility] Start: 03-20-2023 Verification routine [facility] Start: 03-20-2023 Admission procedure [facility] Start: 01-24-2023 Influenza vaccination [facility] Start: 11-28-2022 End: 11-28-2022 Patient encounter procedure 11/28/2022 1:45 PM EDT Office Visit [facility] [address] [phone] Dexter Daniel MD [phone] [facility] Start: 10-22-2022 End: 10-23-2023 CBC W Auto Differential panel - Blood CBC and Auto Differential Lab Routine Annual visit for general adult medical examination with abnormal findings 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) Expected: 10/22/2022 (Approximate), Expires: 10/23/2023 [facility] Work Phone: Comment on above: Expected: 10/22/2022 (Approximate), Expires: 10/23/2023 Start: 10-22-2022 End: 10-23-2023 Comprehensive metabolic 2000 panel - Serum or Plasma Comprehensive Metabolic Panel Lab Routine Annual visit for general adult medical examination with abnormal findings 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) Expected: 10/22/2022 (Approximate), Expires: 10/23/2023 [facility] Work Phone: Comment on above: Expected: 10/22/2022 (Approximate), Expires: 10/23/2023 Start: 10-22-2022 End: 10-23-2023 Hemoglobin A1c/Hemoglobin.total in Blood Hemoglobin A1C Lab Routine Annual visit for general adult medical examination with abnormal findings 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) Expected: 10/22/2022 (Approximate), Expires: 10/23/2023 [facility] Work Phone: Comment on above: Expected: 10/22/2022 (Approximate), Expires: 10/23/2023 Start: 10-22-2022 End: 10-23-2023 Lipid 1996 panel - Serum or Plasma Lipid Panel Lab Routine Annual visit for general adult medical examination with abnormal findings 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) Expected: 10/22/2022 (Approximate), Expires: 10/23/2023 [facility] Work Phone: Comment on above: Expected: 10/22/2022 (Approximate), Expires: 10/23/2023 Start: 10-22-2022 End: 10-23-2023 Microalbumin/Creatinine [Mass Ratio] in Urine Albumin , Urine Random Lab Routine Annual visit for general adult medical examination with abnormal findings 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) Expected: 10/22/2022 (Approximate), Expires: 10/23/2023 [facility] Service [facility] Work Phone: Comment on above: Expected: 10/22/2022 (Approximate), Expires: 10/23/2023 Start: 07-26-2022 Lipid panel Lipid Panel [facility] Start: 07-26-2022 Urine screening for protein Diabetes: Urine Protein Screening [facility] Start: 07-22-2022 FUV, Provider: Dexter Daniel, Status: Pen, Time: 4:45 PM FUV, Provider: Dexter Daniel, Status: Pen, Time: 4:45 PM [facility] Work Phone: Start: 07-17-2022 Blood chemistry [facility] Start: 07-16-2022 Blood chemistry [facility] Start: 07-16-2022 Blood chemistry [facility] Start: 07-16-2022 Blood chemistry [facility] Start: 07-16-2022 Patient discharge [facility] Start: 07-16-2022 Blood chemistry [facility] Start: 07-16-2022 [facility] Start: 07-16-2022 Application of intermittent pneumatic compression device [facility] Start: 07-16-2022 Assessment of risk o f venous thromboembolism [facility] Start: 07-16-2022 Continuous pulse oximetry [facility] Start: 07-16-2022 End: 07-16-2022 Following clinical pathway protocol [facility] Start: 07-16-2022 Insertion of cathete r into peripheral vein [facility] Start: 07-16-2022 Lab findings surveillance [facility] Start: 07-16-2022 Measuring intake and output [facility] Start: 07-16-2022 Notification of physician [facility] Start: 07-16-2022 Patient education [facility] Start: 07-16-2022 Providing care accor ding to [facility] Start: 07-16-2022 Vital signs measurements [facility] Start: 07-16-2022 End: 07-16-2022 [facility] Start: 07-16-2022 Patient referral to dietitian [facility] Start: 07-15-2022 Verification routine [facility] Start: 07-15-2022 Admission procedure [facility] Start: 07-15-2022 [facility] Start: 06-20-2022 Patient discharge [facility] Start: 06-17-2022 Assessment of risk o f venous thromboembolism [facility] Start: 06-17-2022 Care regimes management [facility] Start: 06-17-2022 Catheterization of vein [facility] Start: 06-17-2022 Insertion of cathete r into peripheral vein [facility] Start: 06-17-2022 Providing care accor ding to [facility] Start: 06-17-2022 Referral to service [facility] Start: 06-17-2022 End: 06-17-2022 [facility] Start: 06-17-2022 Following clinical pathway protocol [facility] Start: 06-17-2022 Verification routine [facility] Start: 06-17-2022 Admission procedure [facility] Start: 01-29-2022 Blood chemistry [facility] Work Phone: Start: 10-26-2021 Hemoglobin A1c measurement Diabetes: Hemoglobin A1C [facility] Start: 09-25-2021 Bacteria identified in Blood by Culture Blood Culture [facility] Work Phone: Start: 09-25-2021 Respiratory Panel (PCR) Respiratory Panel (PCR) [facility] Work Phone: Start: 10-05-2020 COVID-19 Vaccine (3 - Booster for Pfizer series) COVID-19 Vaccine (3 - Booster for Pfizer series) [facility] Start: 10-05-2020 COVID-19 Vaccine (3 - Pfizer series) COVID-19 Vaccine (3 - Pfizer series) [facility] Start: 02-27-2019 DTaP/Tdap/Td Vaccine s (7 - Td or Tdap) DTaP/Tdap/Td Vaccines (7 - Td or Tdap) [facility] Start: 2014 Hepatitis C screening Hepatitis C [facility] Start: 02-27-2010 Pneumococcal Vaccine : Pediatrics (0 to 5 Years) and At-Risk Patients (6 to 64 Years) (2 - PCV) Pneumococcal Vaccine: Pediatrics (0 to 5 Years) and At-Risk Patients (6 to 64 Years) (2 - PCV) [facility] Start: 2007 HPV Vaccines (1 - Ma le 2-dose series) HPV Vaccines (1 - Male 2-dose series) [facility] Start: 2006 Diabetic foot examination Diabetes: Foot Exam [facility] Start: 2006 Ophthalmic examinati on and evaluation Diabetes: Retinopathy Screening [facility] Start: 04-02-2002 Varicella vaccination Varicell a Vaccines (1 of 2 - 2-dose childhood series) [facility] Start: 1996 Diabetes: Celiac Dis ease Screening Diabetes: Celiac Disease Screening [facility] Start: 1996 HIV screening HIV Screening [facility] Anion gap measurement [facility] Work Phone: Anion gap measurement [facility] Anion gap measurement [facility] Anion gap measurement [facility] Anion gap measurement [facility] Anion gap measurement [facility] Bilirubin measuremen t, urine [facility] BUN/Creatinine ratio [facility] Work Phone: BUN/Creatinine ratio [facility] BUN/Creatinine ratio [facility] BUN/Creatinine ratio [facility] BUN/Creatinine ratio [facility] BUN/Creatinine ratio [facility] Calcium [Mass/volume ] in Serum or Plasma [facility] Work Phone: Calcium [Mass/volume ] in Serum or Plasma [facility] Calcium [Mass/volume ] in Serum or Plasma [facility] Calcium [Mass/volume ] in Serum or Plasma [facility] Calcium [Mass/volume ] in Serum or Plasma [facility] Calcium [Mass/volume ] in Serum or Plasma [facility] Carbon dioxide, tota l [Moles/volume] in Serum or Plasma [facility] Work Phone: Carbon dioxide, tota l [Moles/volume] in Serum or Plasma [facility] Carbon dioxide, tota l [Moles/volume] in Serum or Plasma [facility] Carbon dioxide, tota l [Moles/volume] in Serum or Plasma [facility] Carbon dioxide, tota l [Moles/volume] in Serum or Plasma [facility] Carbon dioxide, tota l [Moles/volume] in Serum or Plasma [facility] Chloride [Moles/volu me] in Serum or Plasma [facility] Work Phone: Chloride [Moles/volu me] in Serum or Plasma [facility] Chloride [Moles/volu me] in Serum or Plasma [facility] Chloride [Moles/volu me] in Serum or Plasma [facility] Chloride [Moles/volu me] in Serum or Plasma [facility] Chloride [Moles/volu me] in Serum or Plasma [facility] Creatinine [Moles/volume] in Serum or Plasma [facility] Work Phone: Creatinine [Moles/volume] in Serum or Plasma [facility] Creatinine [Moles/volume] in Serum or Plasma [facility] Creatinine [Moles/volume] in Serum or Plasma [facility] Creatinine [Moles/volume] in Serum or Plasma [facility] Creatinine [Moles/volume] in Serum or Plasma [facility] Electrocardiogram, 12-lead PRN ACS symptoms Electrocardiogram, 12-lead PRN ACS symptoms ECG Routine As needed until discontinued starting 03/01/2024 [facility] Work Phone: Comment on above: As needed until disc ontinued starting 03/01/2024 End: 03-01-2024 Extra Urine Francis Tube Extra Urine [facility] Lab Timed Once for 1 Occurrences starting 03/01/2024 until 03/01/2024 [facility] Work Phone: Comment on above: Once for 1 Occurrenc es starting 03/01/2024 until 03/01/2024 Glucose [Mass/volume ] in Serum or Plasma [facility] Work Phone: Glucose [Mass/volume ] in Serum or Plasma [facility] Glucose [Mass/volume ] in Serum or Plasma [facility] Glucose [Mass/volume ] in Serum or Plasma [facility] Glucose [Mass/volume ] in Serum or Plasma [facility] Glucose [Mass/volume ] in Serum or Plasma [facility] End: 03-04-2024 Glucose [Mass/volume] in Serum or Plasma POCT Glucose Point of Care Testing - Docked Device Routine 4 times daily before meals and at bedtime for 3 Days starting 03/01/2024 until 03/04/2024, 3 completed [facility] Work Phone: Comment on above: 4 times daily before meals and at bedtime for 3 Days starting 03/01/2024 until 03/04/2024, 3 completed Hematocrit [Volume Fraction] of Blood [facility] Hemoglobin [Mass/vol ume] in Blood [facility] Hemoglobin [Presence ] in Urine [facility] Leukocytes [#/volume ] in Blood [facility] Mean corpuscular hemoglobin concentration determination [facility] Mean corpuscular hemoglobin determination [facility] Measurement of keton es in urine using dipstick [facility] Measurement of renal function [facility] Work Phone: Measurement of renal function [facility] Measurement of renal function [facility] Measurement of renal function [facility] Measurement of renal function [facility] Measurement of renal function [facility] Microscopic urinalysis [facility] Neutrophil count [facility] Neutrophil percent differential count [facility] Patient Education [facility] Work Phone: Patient referral [facility] Work Phone: pH of Urine [facility] Platelets [#/volume] in Blood [facility] Potassium [Moles/vol ume] in Serum or Plasma [facility] Work Phone: Potassium [Moles/vol ume] in Serum or Plasma [facility] Potassium [Moles/vol ume] in Serum or Plasma [facility] Potassium [Moles/vol ume] in Serum or Plasma [facility] Potassium [Moles/vol ume] in Serum or Plasma [facility] Potassium [Moles/vol ume] in Serum or Plasma [facility] Red blood cell count [facility] Red cell distributio n width determination [facility] Sodium [Moles/volume ] in Serum or Plasma [facility] Work Phone: Sodium [Moles/volume ] in Serum or Plasma [facility] Sodium [Moles/volume ] in Serum or Plasma [facility] Sodium [Moles/volume ] in Serum or Plasma [facility] Sodium [Moles/volume ] in Serum or Plasma [facility] Sodium [Moles/volume ] in Serum or Plasma [facility] Specific gravity of Urine [facility] Urea nitrogen [Mass/volume] in Serum or Plasma [facility] Work Phone: Urea nitrogen [Mass/volume] in Serum or Plasma [facility] Urea nitrogen [Mass/volume] in Serum or Plasma [facility] Urea nitrogen [Mass/volume] in Serum or Plasma [facility] Urea nitrogen [Mass/volume] in Serum or Plasma [facility] Urea nitrogen [Mass/volume] in Serum or Plasma [facility] End: 03-01-2024 Urinalysis complete W Reflex Culture panel - Urine [facility] Work Phone: Comment on above: STAT (Lab) for 1 Occ urrences starting 03/01/2024 until 03/01/2024 Urinalysis, blood, qualitative [facility] Urine dipstick for glucose [facility] Urine dipstick for leukocyte esterase [facility] Urine dipstick for nitrite [facility] Urine dipstick for protein [facility] Urine examination [facility] Urine microscopy: epithelial cells [facility] Urine Microscopy: wh ite cells [facility] Urobilinogen [Presen ce] in Urine [facility] End: 12-11-2023 US Biliary ducts and Gallbladder [facility] Work Phone: Comment on above: Once for 1 Occurrenc es starting 12/11/2023 until 12/11/2023 End: 12-11-2023 US Kidney - bilateral and Urinary bladder [facility] Work Phone: Comment on above: Once for 1 Occurrenc es starting 12/11/2023 until 12/11/2023 Immunizations Immunization Date Immunization Notes Care Provider Juan Daniel nieves 02-10-2021 Covid (Pfizer) Dr. Sachin Kennedy Work Phone: [facility] 01-10-2021 Covid (Pfizer) Dr. Scahin Kennedy Work Phone: [facility] 08-10-2020 Pfizer-BioNTech COVI D-19 Vacc 30 MCG/0.3ML Intramuscular Suspension Valji D Munjapara Work Phone: [facility] 07-20-2020 Pfizer-BioNTech COVI D-19 Vacc 30 MCG/0.3ML Intramuscular Suspension Valji D Munjapara Work Phone: [facility] 05-22-2015 influenza, injectabl e, quadrivalent, preservative free Valji D Munjapara Work Phone: [facility] Work Phone: 05-22-2015 influenza virus vacc ine, unspecified formulation Dexter Daniel MD Work Phone: [facility] Work Phone: 03-08-2014 influenza, injectabl e, quadrivalent, preservative free Dexter Daniel Work Phone: [facility] Work Phone: 03-30-2013 influenza, injectabl e, quadrivalent, contains preservative Dexter Daniel MD Work Phone: [facility] Work Phone: 03-30-2013 influenza, injectabl e, quadrivalent, preservative free Dr. Dafne Cornell Work Phone: [facility] 03-30-2013 influenza, seasonal, injectable Dexter Daniel Work Phone: [facility] Work Phone: 05-01-2011 influenza virus vacc ine, unspecified formulation Dexter Daniel MD Work Phone: [facility] Work Phone: 02-27-2009 influenza virus vacc ine, unspecified formulation Dexter Daniel MD Work Phone: [facility] Work Phone: 02-27-2009 Meningococcal, MCV4, unspecified conjugate formulation(groups A, C, Y and W-135) Dexter Daniel MD Work Phone: [facility] Work Phone: 02-27-2009 pneumococcal polysaccharide vaccine, 23 katerinaent Dextre Daniel MD Work Phone: [facility] Work Phone: 02-27-2009 tetanus toxoid, redu walker diphtheria toxoid, and acellular pertussis vaccine, adsorbed Dexter Daniel MD Work Phone: [facility] Work Phone: 03-05-2002 diphtheria, tetanus toxoids and pertussis vaccine Dexter Daniel MD Work Phone: [facility] Work Phone: 03-05-2002 measles, mumps and rubella virus vaccine Dexter Daniel MD Work Phone: [facility] Work Phone: 03-05-2002 poliovirus vaccine, inactivated Dexter Daniel MD Work Phone: [facility] Work Phone: 10-31-1997 diphtheria, tetanus toxoids and pertussis vaccine Dexter Daniel MD Work Phone: [facility] Work Phone: 10-31-1997 haemophilus influenz ae type b vaccine, HbOC conjugate Dexter Daniel MD Work Phone: [facility] Work Phone: 10-31-1997 measles, mumps and rubella virus vaccine Dexter Daniel MD Work Phone: [facility] Work Phone: 10-31-1997 poliovirus vaccine, inactivated Dexter Daniel MD Work Phone: [facility] Work Phone: 03-24-1997 hepatitis B vaccine, pediatric or pediatric/adolescent dosage Dexter Daniel MD Work Phone: [facility] Work Phone: 1996 diphtheria, tetanus toxoids and pertussis vaccine Dexter Daniel MD Work Phone: [facility] Work Phone: 1996 haemophilus influenz ae type b vaccine, HbOC conjugate Dexter Daniel MD Work Phone: [facility] Work Phone: 1996 diphtheria, tetanus toxoids and pertussis vaccine Dexter Daniel MD Work Phone: [facility] Work Phone: 1996 haemophilus influenz ae type b vaccine, HbOC conjugate Dexter Daniel MD Work Phone: [facility] Work Phone: 1996 poliovirus vaccine, inactivated Dexter Daniel MD Work Phone: [facility] Work Phone: 1996 diphtheria, tetanus toxoids and pertussis vaccine Dexter Daniel MD Work Phone: [facility] Work Phone: 1996 haemophilus influenz ae type b vaccine, HbOC conjugate Dexter Daniel MD Work Phone: [facility] Work Phone: 1996 hepatitis B vaccine, pediatric or pediatric/adolescent dosage Dexter Daniel MD Work Phone: [facility] Work Phone: 1996 poliovirus vaccine, inactivated Dexter Daniel MD Work Phone: [facility] Work Phone: 1996 hepatitis B vaccine, pediatric or pediatric/adolescent dosage Dexter Daniel MD Work Phone: [facility] Work Phone: Payers Date Payer Category Payer Self-pay [id number] 2022 Unknown 2009 Unknown [id number] 2009 Unknown [id number] 1996 Unknown [id number] 2.16.8 [id number] 1996 Unknown [id number] 2.16.8 [id number] 1996 Unknown [id number] 2.16.8 [id number] 1996 Unknown [id number] 2.16.8 [id number] 1996 Unknown [id number] 2.16.8 [id number] 1996 Unknown [id number] 2.16.8 [id number] 1996 Unknown [id number] 2.16.8 [id number] 1996 Unknown [id number] 2.16.8 [id number] Unknown [id number] 2.16.8 [id number] Unknown [id number] 2.16.8 [id number] Unknown [id number] 2.16.8 [id number] Unknown [id number] 2.16.8 [id number] Social History Date Type Detail Facility Start: 10-22-2022 End: 12-08-2023 Never smoker Never smoker -[facility] Work Phone: Start: 09-25-2021 End: 09-04-2023 Tobacco smoking status NHIS Unknown if ever smoked [facility] Start: 12-29-2014 None [facility] Start: 12-29-2014 With Family [facility] Start: 12-29-2014 Non-smoker [facility] Start: 1996 Sex Assigned At Male [facility] Start: 10-22-2022 Tobacco smoking stat us NHIS Never smoked tobacco [facility] Work Phone: Start: 10-22-2022 Tobacco use and exposure Smokeless tobacco non-user [facility] Work Phone: Start: 10-22-2022 End: 12-08-2023 Alcohol intake Ex-drinker (finding) [facility] Work Phone: Start: 10-22-2022 End: 12-08-2023 Tobacco use panel [facility] Work Phone: Start: 1996 Sex Assigned At Not on file [facility] Work Phone: Start: 10-12-2022 End: 03-01-2024 Exposure to SARS-CoV-2 (event) Not sure [facility] Start: 12-15-2023 End: 03-02-2024 Alcoholic beverage intake Current drinker of alcohol (finding) [facility] Work Phone: How often to you hav e a drink containing alcohol? Monthly or less [facility] Work Phone: How many standard drinks containing alcohol do you have on a typical day? 1 or 2 [facility] Work Phone: How often do you hav e 6 or more drinks on 1 occasion? Monthly [facility] Work Phone: Medical Equipment Procedure Code Equipment Code Equipment Origin al Text Equipment Identifier Dates check sugars 3 t imes per day (on insulin pump) [id number] Start: 10-23-2018 End: 06-09-2023 Goals Date Patient Goal Desired Activity /State Functional Status Date Assessment Result Facility 03-23-2023 Functional status Ambulates;Up ad josh [facility] Work Phone: 07-16-2022 Functional status Ambulates [facility] Work Phone: 06-20-2022 Functional status Up ad josh [facility] Work Phone: 09-27-2021 Functional status Ambulates;Up ad josh [facility] Work Phone: Mental Status Date Assessment Result Facility 03-23-2023 Cognitive function Voice/Name [facility] Work Phone: 06-20-2022 Cognitive function Appropriate;Cooperativ e [facility] Work Phone: 01-29-2022 Cognitive function Level Of Cons ciousness Awake;Alert [facility] Work Phone: 09-27-2021 Cognitive function Voice/Name [facility] Work Phone: 09-25-2021 Cognitive function Level Of Cons ciousness Awake;Alert [facility] Work Phone: Clinical Notes 07-28-2020 to 03-02-2024 Esther Pablo RN - 03/02/2024 12:22 PM EDAviva Pablo RN - 03/02/2024 12:22 PM EDTBmichel Kennedy, PharmD - 03/02/2024 12:20 PM EDTGgarry Stevenson RRT - 03/01/2024 6:51 PM EDT Note Date & Type Note Facility 03-02-2024 Nurse Note Discharge Note: 03/02/2024 1219 AVS and pt responsibilities reviewed with pt and copy given. DKA, Diabetes and diet, education reviewed with pt and information sheets given. Pt verbalizes understanding of instructions received, verbalizes understanding of when to seek medical attention, denies any home going or personal care needs. Denies further questions or concerns. Reviewed follow up appts with pt and verbalizes understanding. Pt states has been diabetic for over 15 years and feels has a good handle on it. Tiera GARNETT [facility] 03-02-2024 Nurse Note Discharge Note: 03/02/2024 1219 AVS and pt responsibilities reviewed with pt and copy given. DKA, Diabetes and diet, education reviewed with pt and information sheets given. Pt verbalizes understanding of instructions received, verbalizes understanding of when to seek medical attention, denies any home going or personal care needs. Denies further questions or concerns. Reviewed follow up appts with pt and verbalizes understanding. Pt states has been diabetic for over 15 years and feels has a good handle on it. Tiera RN documented in this encounter [facility] Work Phone: 03-02-2024 History of Presen t illness Narrative Medication Education Medication education for Jorge Hollis was provided to the patient for the following medication(s): Metoprolol XL 50 mg daily - change in dose Medication education provided by a Pharmacist: Other Change in dose, when next doses due Identified potential barriers to education: None Method(s) of Education: Verbal Written materials provided and reviewed An opportunity to ask questions and receive answers was provided. Assessment of understanding the patient : 2= meets goals/outcomes Additional Notes (if applicable): Patient's pharmacy is [facility] in [place], [place] Eric Kennedy PharmD VBG results reported to the physician: 7.34/22/49/11.9 documented in this encounter [facility] Work Phone: 03-01-2024 History and physical note History Of Present Illness Jorge Hollis is a 28 y.o. male presenting with n/v/abdominal pain which started yesterday afternoon and progressed. Was unable to keep anything down since that time. Denies any other symptoms including cough or diarrhea. Sugars have not been above 200. No mental status change. Past Medical History He has a past medical history of Diabetes 1.5, managed as type 1 (Multi), Hypertension, Other conditions influencing health status, and Personal history of other diseases of the nervous system and sense organs (06/11/2021). Patient has CGM and insulin pump Surgical History He has a past surgical history that includes No past surgeries. Social History He reports that he has never smoked. He has never used smokeless tobacco. He reports current alcohol use. He reports that he does not use drugs. Family History Family History Problem Relation Name Age of Onset Thyroid disease Mother Alcohol abuse Father Clotting disorder Father Allergies Patient has no known allergies. Review of Systems Constitutional: Negative for chills and diaphoresis. HENT: Negative for congestion and rhinorrhea. Eyes: Negative for photophobia and visual disturbance. Respiratory: Negative for cough, shortness of breath and wheezing. Cardiovascular: Negative for chest pain, palpitations and leg swelling. Gastrointestinal: Positive for abdominal pain. Negative for nausea and vomiting. Endocrine: Negative for polydipsia and polyuria. Genitourinary: Negative for difficulty urinating, dysuria, frequency and urgency. Musculoskeletal: Negative for arthralgias and myalgias. Skin: Negative for rash and wound. Neurological: Negative for weakness and light-headedness. Psychiatric/Behavioral: Negative for dysphoric mood. The patient is not nervous/anxious. Physical Exam Constitutional: General: He is not in acute distress. Appearance: He is normal weight. He is ill-appearing. HENT: Head: Normocephalic and atraumatic. Right Ear: External ear normal. Left Ear: External ear normal. Mouth/Throat: Mouth: Mucous membranes are dry. Pharynx: Oropharynx is clear. Eyes: Extraocular Movements: Extraocular movements intact. Conjunctiva/sclera: Conjunctivae normal. Cardiovascular: Rate and Rhythm: Regular rhythm. Tachycardia present. Pulmonary: Effort: Pulmonary effort is normal. Breath sounds: Normal breath sounds. Abdominal: General: There is no distension. Tenderness: There is abdominal tenderness. There is no guarding. Musculoskeletal: General: Normal range of motion. Cervical back: Normal range of motion. Right lower leg: No edema. Left lower leg: No edema. Skin: General: Skin is warm and dry. Neurological: Mental Status: He is alert. Last Recorded Vitals BP (!) 158/102 (Patient Position: Sitting) Pulse (!) 113 Temp 36.2 C (97.2 F) (Temporal) Resp 18 Wt 88.5 kg (195 lb) SpO2 96% Relevant Results Assessment/Plan Assessment & Plan DKA, type 1, not at goal DKA Type 1 diabetes on insulin pump KATI Acidemia -aggressive hydration -monitor lytes -continue insulin pump/CGM Pancreatitis -imaging suspicious, elevated lipase -symptomatic management for now -monitor, advance diet as able once DKA resolved HTN HLD -continue home lotrel, toprol, crestor Dafne Ramos MD T [facility] Work Phone: 03-01-2024 History and physical note History Of Present Illness Jorge Hollis is a 28 y.o. male presenting with n/v/abdominal pain which started yesterday afternoon and progressed. Was unable to keep anything down since that time. Denies any other symptoms including cough or diarrhea. Sugars have not been above 200. No mental status change. Past Medical History He has a past medical history of Diabetes 1.5, managed as type 1 (Multi), Hypertension, Other conditions influencing health status, and Personal history of other diseases of the nervous system and sense organs (06/11/2021). Patient has CGM and insulin pump Surgical History He has a past surgical history that includes No past surgeries. Social History He reports that he has never smoked. He has never used smokeless tobacco. He reports current alcohol use. He reports that he does not use drugs. Family History Family History Problem Relation Name Age of Onset Thyroid disease Mother Alcohol abuse Father Clotting disorder Father Allergies Patient has no known allergies. Review of Systems Constitutional: Negative for chills and diaphoresis. HENT: Negative for congestion and rhinorrhea. Eyes: Negative for photophobia and visual disturbance. Respiratory: Negative for cough, shortness of breath and wheezing. Cardiovascular: Negative for chest pain, palpitations and leg swelling. Gastrointestinal: Positive for abdominal pain. Negative for nausea and vomiting. Endocrine: Negative for polydipsia and polyuria. Genitourinary: Negative for difficulty urinating, dysuria, frequency and urgency. Musculoskeletal: Negative for arthralgias and myalgias. Skin: Negative for rash and wound. Neurological: Negative for weakness and light-headedness. Psychiatric/Behavioral: Negative for dysphoric mood. The patient is not nervous/anxious. Physical Exam Constitutional: General: He is not in acute distress. Appearance: He is normal weight. He is ill-appearing. HENT: Head: Normocephalic and atraumatic. Right Ear: External ear normal. Left Ear: External ear normal. Mouth/Throat: Mouth: Mucous membranes are dry. Pharynx: Oropharynx is clear. Eyes: Extraocular Movements: Extraocular movements intact. Conjunctiva/sclera: Conjunctivae normal. Cardiovascular: Rate and Rhythm: Regular rhythm. Tachycardia present. Pulmonary: Effort: Pulmonary effort is normal. Breath sounds: Normal breath sounds. Abdominal: General: There is no distension. Tenderness: There is abdominal tenderness. There is no guarding. Musculoskeletal: General: Normal range of motion. Cervical back: Normal range of motion. Right lower leg: No edema. Left lower leg: No edema. Skin: General: Skin is warm and dry. Neurological: Mental Status: He is alert. Last Recorded Vitals BP (!) 158/102 (Patient Position: Sitting) Pulse (!) 113 Temp 36.2 C (97.2 F) (Temporal) Resp 18 Wt 88.5 kg (195 lb) SpO2 96% Relevant Results Assessment/Plan Assessment & Plan DKA, type 1, not at goal DKA Type 1 diabetes on insulin pump KATI Acidemia -aggressive hydration -monitor lytes -continue insulin pump/CGM Pancreatitis -imaging suspicious, elevated lipase -symptomatic management for now -monitor, advance diet as able once DKA resolved HTN HLD -continue home lotrel, toprol, crestor Dafne Ramos MD documented in this encounter [facility] Work Phone: 12-15-2023 Evaluation + Plan note Associated Problem(s): Hypertension Continue Lotrel plus Toprol aspirin monitor BMP twice a year Patients BP readings reviewed and addressed, as we age our arteries turn stiffer and less elastic. Restricting salt consumption and staying physically fit with regular exercise regimen is the only way to keep our vasculature less tonic. Studies have shown that keeping ideal body wt, exercise routine about 140 to 150 minutes a week, eating variety of plant based diet and drinking plentiful water are quite helpful. Monitor BP twice or once a week at home and bring log to be reviewed by me. Uncontrolled BP has chcf consequences including heart failure, myocardial infarction, accelerated atherosclerosis and kidney dysfunction. Therapy reviewed and explained. [facility] Work Phone: 12-15-2023 Miscellaneous Notes Associated Problem(s): Hypertension Continue Lotrel plus Toprol aspirin monitor BMP twice a year Patients BP readings reviewed and addressed, as we age our arteries turn stiffer and less elastic. Restricting salt consumption and staying physically fit with regular exercise regimen is the only way to keep our vasculature less tonic. Studies have shown that keeping ideal body wt, exercise routine about 140 to 150 minutes a week, eating variety of plant based diet and drinking plentiful water are quite helpful. Monitor BP twice or once a week at home and bring log to be reviewed by me. Uncontrolled BP has chcf consequences including heart failure, myocardial infarction, accelerated atherosclerosis and kidney dysfunction. Therapy reviewed and explained. Associated Problem(s): DM type 2 with diabetic mixed hyperlipidemia (Multi) Low-fat diet Associated Problem(s): GERD without esophagitis Advised OTC Prilosec Associated Problem(s): Alcohol abuse Alcoholic liver problem advised B12 folic acid thiamine join AA group cut down or stop alcohol Associated Problem(s): Gout Drink more water cut down protein and salt given allopurinol 300 mg a day recheck uric acid in 4 weeks keep uric acid less than 6 documented in this encounter [facility] Work Phone: 12-15-2023 Evaluation + Plan note Associated Problem(s): DM type 2 with diabetic mixed hyperlipidemia (Multi) Low-fat diet [facility] Work Phone: 12-15-2023 Evaluation + Plan note Associated Problem(s): GERD without esophagitis Advised OTC Prilosec [facility] Work Phone: 12-15-2023 Evaluation + Plan note Associated Problem(s): Alcohol abuse Alcoholic liver problem advised B12 folic acid thiamine join AA group cut down or stop alcohol [facility] Work Phone: 12-15-2023 Evaluation + Plan note Associated Problem(s): Gout Drink more water cut down protein and salt given allopurinol 300 mg a day recheck uric acid in 4 weeks keep uric acid less than 6 [facility] Work Phone: 12-15-2023 History of Presen t illness Narrative Subjective Patient ID: Jorge Hollis is a 28 y.o. male who presents for Follow-up (1 week /Go over blood work and ultrasounds ). Assessment/Plan Problem List Items Addressed This Visit Hypertension Continue Lotrel plus Toprol aspirin monitor BMP twice a year Patients BP readings reviewed and addressed, as we age our arteries turn stiffer and less elastic. Restricting salt consumption and staying physically fit with regular exercise regimen is the only way to keep our vasculature less tonic. Studies have shown that keeping ideal body wt, exercise routine about 140 to 150 minutes a week, eating variety of plant based diet and drinking plentiful water are quite helpful. Monitor BP twice or once a week at home and bring log to be reviewed by me. Uncontrolled BP has rn long term care consequences including heart failure, myocardial infarction, accelerated atherosclerosis and kidney dysfunction. Therapy reviewed and explained. DM type 2 with diabetic mixed hyperlipidemia (Multi) Low-fat diet GERD without esophagitis Advised OTC Prilosec Alcohol abuse Alcoholic liver problem advised B12 folic acid thiamine join AA group cut down or stop alcohol Fatty liver - Primary Relevant Orders Comprehensive Metabolic Panel Uric Acid Elevated uric acid in blood Drink more water cut down protein and salt given allopurinol 300 mg a day recheck uric acid in 4 weeks keep uric acid less than 6 Other Visit Diagnoses Gout, unspecified cause, unspecified chronicity, unspecified site Patient was evaluated today, problem list was reviewed, problems and concerns addressed, Rx list reviewed and updated, lab and tests were noted and reviewed. Life style changes were discussed, always it works better if we eat plant based diet and plenty of fibres and roughage. Consume adequate amount of water and avoid alcohol, light to moderate physical activities and stress reduction are always beneficial for ongoing physical well being. Do not forget to have 6 to 7 hours of sleep regularly and avoid late night sunni screen exposure. HPI patient have diabetes on insulin also doing moderate amount alcohol Underwent for battery of the test Patient's BUN 23 sodium 138 potassium 4.4 CO2 16 glucose 193 creatinine 1.4 uric acid 10.9 bilirubin 1.3 SGOT 40 SGPT 53 triglyceride 190 cholesterol 265 LDL 153 hemoglobin A1c 6.8 No nausea vomiting diarrhea constipation No polyuria no polydipsia Advised continue Lotrel Toprol Levemir add on Crestor and allopurinol Past Medical History: Diagnosis Date Other conditions influencing health status No history of previous surgery Personal history of other diseases of the nervous system and sense organs 06/11/2021 History of chronic fatigue syndrome Past Surgical History: Procedure Laterality Date NO PAST SURGERIES No Known Allergies Current Outpatient Medications Medication Sig Dispense Refill amLODIPine-benazepriL (Lotrel) 5-40 mg capsule Take 1 capsule by mouth once daily. 30 capsule 3 Dexcom G6 Sensor device Dexcom G6 Transmitter device glucagon 1 mg injection Inject 1 mg into the muscle if needed. INSULIN ASPART U-100 SUBQ Used for his Omnipod insulin pump use up to 95 units daily as directed insulin detemir (Levemir Flextouch) 100 unit/mL (3 mL) pen Use as Directed for pump failure metoprolol succinate XL (Toprol-XL) 25 mg 24 hr tablet Take 1 tablet by mouth once nightly. 30 tablet 3 NovoLOG U-100 Insulin aspart 100 unit/mL injection Omnipod 5 G6 Intro Kit, Gen 5, cartridge No current facility-administered medications for this visit. Family History Problem Relation Name Age of Onset Thyroid disease Mother Alcohol abuse Father Clotting disorder Father Social History Socioeconomic History Marital status: Single Tobacco Use Smoking status: Never Smokeless tobacco: Never Substance and Sexual Activity Alcohol use: Yes Alcohol/week: 0.0 - 40.0 standard drinks of alcohol Drug use: Never Immunization History Administered Date(s) Administered DTP 1996, 1996, 1996, 10/31/1997, 03/05/2002 Flu vaccine (IIV4), preservative free *Check age/dose* 03/30/2013, 03/08/2014, 05/22/2015 Hepatitis B vaccine, 19 yrs and under (RECOMBIVAX, ENGERIX) 1996, 1996, 03/24/1997 Hib (HbOC) 1996, 1996, 1996, 10/31/1997 Influenza, Unspecified 02/27/2009, 05/01/2011 Influenza, injectable, quadrivalent 03/30/2013 Influenza, seasonal, injectable 03/30/2013 MMR vaccine, subcutaneous (MMR II) 10/31/1997, 03/05/2002 Meningococcal MCV4, Unspecified 02/27/2009 Pfizer Purple Cap SARS-CoV-2 07/20/2020, 08/10/2020, 01/10/2021, 02/10/2021 Pneumococcal polysaccharide vaccine, 23-valent, age 2 years and older (PNEUMOVAX 23) 02/27/2009 Poliovirus vaccine, subcutaneous (IPOL) 1996, 1996, 10/31/1997, 03/05/2002 Tdap vaccine, age 7 year and older (BOOSTRIX, ADACEL) 02/27/2009 Review of Systems Review of systems is otherwise negative unless stated above or in history of present illness. Objective Visit Vitals BP 142/78 Pulse 85 Temp 36.2 C (97.1 F) Ht 1.854 m (6' 1) Wt 94.3 kg (207 lb 12.8 oz) SpO2 98% BMI 27.42 kg/m Smoking Status Never BSA 2.2 m Physical Exam Constitutional: BMI 27 General: not in acute distress. HENT: Head: Normocephalic and atraumatic. Nose: Nose normal. Eyes: No jaundice Extraocular Movements: Extraocular movements intact. Conjunctiva/sclera: Conjunctivae normal. Cardiovascular: S4 Rate and Rhythm: Normal rate , No M/R/G Pulmonary: Crackle Effort: Pulmonary effort is normal. Breath sounds: Normal, Bilat Equal AE Skin: Dry skin General: Skin is warm. 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 Psychiatric: Mood and Affect: Mood normal. Behavior: Behavior normal. Musculoskeletal FROM in all extremitirs, Joint-no swelling or tenderness No visits with results within 4 Month(s) from this visit. Latest known visit with results is: Lab on 06/09/2023 Component Date Value Ref Range Status HIV 1/2 Antigen/Antibody Screen wi* 06/09/2023 Nonreactive Nonreactive Final Hepatitis C AB 06/09/2023 Nonreactive Nonreactive Final Albumin, Urine Random 06/09/2023 425.6 Not established mg/L Final Creatinine, Urine Random 06/09/2023 53.8 20.0 - 370.0 mg/dL Final Albumin/Creatinine Ratio 06/09/2023 791.1 (H) <30.0 ug/mg Creat Final WBC 06/09/2023 5.7 4.4 - 11.3 x10*3/uL Final nRBC 06/09/2023 0.0 0.0 - 0.0 /100 WBCs Final RBC 06/09/2023 5.34 4.50 - 5.90 x10*6/uL Final Hemoglobin 06/09/2023 16.4 13.5 - 17.5 g/dL Final Hematocrit 06/09/2023 47.4 41.0 - 52.0 % Final MCV 06/09/2023 89 80 - 100 fL Final MCH 06/09/2023 30.7 26.0 - 34.0 pg Final MCHC 06/09/2023 34.6 32.0 - 36.0 g/dL Final RDW 06/09/2023 12.9 11.5 - 14.5 % Final Platelets 06/09/2023 185 150 - 450 x10*3/uL Final Neutrophils % 06/09/2023 48.6 40.0 - 80.0 % Final Immature Granulocytes %, Automated 06/09/2023 0.4 0.0 - 0.9 % Final Lymphocytes % 06/09/2023 35.3 13.0 - 44.0 % Final Monocytes % 06/09/2023 12.0 2.0 - 10.0 % Final Eosinophils % 06/09/2023 2.6 0.0 - 6.0 % Final Basophils % 06/09/2023 1.1 0.0 - 2.0 % Final Neutrophils Absolute 06/09/2023 2.76 1.20 - 7.70 x10*3/uL Final Immature Granulocytes Absolute, Au* 06/09/2023 0.02 0.00 - 0.70 x10*3/uL Final Lymphocytes Absolute 06/09/2023 2.00 1.20 - 4.80 x10*3/uL Final Monocytes Absolute 06/09/2023 0.68 0.10 - 1.00 x10*3/uL Final Eosinophils Absolute 06/09/2023 0.15 0.00 - 0.70 x10*3/uL Final Basophils Absolute 06/09/2023 0.06 0.00 - 0.10 x10*3/uL Final Glucose 06/09/2023 250 (H) 74 - 99 mg/dL Final Sodium 06/09/2023 140 136 - 145 mmol/L Final Potassium 06/09/2023 4.0 3.5 - 5.3 mmol/L Final Chloride 06/09/2023 99 98 - 107 mmol/L Final Bicarbonate 06/09/2023 27 21 - 32 mmol/L Final Anion Gap 06/09/2023 18 10 - 20 mmol/L Final Urea Nitrogen 06/09/2023 13 6 - 23 mg/dL Final Creatinine 06/09/2023 0.83 0.50 - 1.30 mg/dL Final eGFR 06/09/2023 >90 >60 mL/min/1.73m*2 Final Calcium 06/09/2023 10.1 8.6 - 10.6 mg/dL Final Albumin 06/09/2023 5.3 (H) 3.4 - 5.0 g/dL Final Alkaline Phosphatase 06/09/2023 74 33 - 120 U/L Final Total Protein 06/09/2023 7.6 6.4 - 8.2 g/dL Final AST 06/09/2023 26 9 - 39 U/L Final Bilirubin, Total 06/09/2023 0.5 0.0 - 1.2 mg/dL Final ALT 06/09/2023 35 10 - 52 U/L Final Amphetamine Screen, Urine 06/09/2023 Presumptive Negative Presumptive Negative Final Barbiturate Screen, Urine 06/09/2023 Presumptive Negative Presumptive Negative Final Benzodiazepines Screen, Urine 06/09/2023 Presumptive Negative Presumptive Negative Final Cannabinoid Screen, Urine 06/09/2023 Presumptive Negative Presumptive Negative Final Cocaine Metabolite Screen, Urine 06/09/2023 Presumptive Negative Presumptive Negative Final Fentanyl Screen, Urine 06/09/2023 Presumptive Negative Presumptive Negative Final Opiate Screen, Urine 06/09/2023 Presumptive Negative Presumptive Negative Final Oxycodone Screen, Urine 06/09/2023 Presumptive Negative Presumptive Negative Final PCP Screen, Urine 06/09/2023 Presumptive Negative Presumptive Negative Final Hemoglobin A1C 06/09/2023 9.3 (H) see below % Final Estimated Average Glucose 06/09/2023 220 Not Established mg/dL Final Cholesterol 06/09/2023 297 (H) 0 - 199 mg/dL Final HDL-Cholesterol 06/09/2023 73.2 mg/dL Final Cholesterol/HDL Ratio 06/09/2023 4.1 Final LDL Calculated 06/09/2023 177 (H) <=99 mg/dL Final VLDL 06/09/2023 47 (H) 0 - 40 mg/dL Final Triglycerides 06/09/2023 236 (H) 0 - 149 mg/dL Final Non HDL Cholesterol 06/09/2023 224 (H) 0 - 149 mg/dL Final Magnesium 06/09/2023 2.19 1.60 - 2.40 mg/dL Final WBC, Urine 06/09/2023 NONE 1-5, NONE /HPF Final RBC, Urine 06/09/2023 NONE NONE, 1-2, 3-5 /HPF Final Uric Acid 06/09/2023 6.3 4.0 - 7.5 mg/dL Final Thyroid Stimulating Hormone 06/09/2023 4.78 (H) 0.44 - 3.98 mIU/L Final Vitamin B12 06/09/2023 275 211 - 911 pg/mL Final Iron 06/09/2023 77 35 - 150 ug/dL Final UIBC 06/09/2023 304 110 - 370 ug/dL Final TIBC 06/09/2023 381 240 - 445 ug/dL Final % Saturation 06/09/2023 20 (L) 25 - 45 % Final Testosterone, Free 06/09/2023 131.4 35.0 - 155.0 pg/mL Final Testosterone, Total, LC-MS/MS 06/09/2023 638 250 - 1100 ng/dL Final Thyroxine, Free 06/09/2023 1.10 0.78 - 1.48 ng/dL Final Radiology: Reviewed imaging in powerchart. US renal complete Result Date: 12/12/2023 Interpreted By: Mukesh Pareeds, STUDY: US RENAL COMPLETE; 12/11/2023 12:10 pm INDICATION: Signs/Symptoms:ckd. COMPARISON: None. ACCESSION NUMBER(S): [id number] ORDERING CLINICIAN: DEXTER DANIEL TECHNIQUE: Grayscale and color Doppler sonographic images of the kidneys were obtained . FINDINGS: RIGHT KIDNEY: The right kidney measures 11.6 cm in length. The renal cortical echogenicity and thickness are within normal limits. No hydronephrosis. No sonographic evidence of nephrolithiasis. LEFT KIDNEY: The left kidney measures 10.6 cm in length. The renal cortical echogenicity and thickness are within normal limits. No hydronephrosis. No sonographic evidence of nephrolithiasis. BLADDER: The urinary bladder is unremarkable in appearance. Bilateral ureteral jets visualized. Prevoid volume 220 cc, postvoid volume 36 cc. Unremarkable renal ultrasound. Signed by: Mukesh Paredes 12/12/2023 9:44 PM Dictation workstation: [id number] US biliary system Result Date: 12/12/2023 Interpreted By: Mukesh Paredes, STUDY: US BILIARY SYSTEM 12/11/2023 3:51 pm INDICATION: 28 y/o M with Signs/Symptoms:liver pain. COMPARISON: None. ACCESSION NUMBER(S): [id number] ORDERING CLINICIAN: DEXTER DANIEL TECHNIQUE: Routine ultrasound of the right upper quadrant was performed. Static images were obtained for remote interpretation. FINDINGS: LIVER: Craniocaudal length: 17.7 cm, within normal limits of size for age. Echogenicity: Increased Mass: None. BILE DUCTS: Intrahepatic ducts: Non-dilated. Common bile duct diameter: 3 mm. GALLBLADDER: Gallbladder: Normal. Gallstones: None. Gallbladder sludge: None. Gallbladder wall thickening: None. Pericholecystic fluid: None. PANCREAS: Visualized portions are unremarkable. RIGHT KIDNEY: Craniocaudal length: 11.4 cm, within normal limits of size for age. No hydronephrosis, hydroureter or focal renal lesion. PERITONEAL FLUID: None seen in the right upper quadrant. Mild hepatomegaly and diffuse steatosis. No focal lesion. No cholelithiasis or ductal dilation. Signed by: Mukesh Paredes 12/12/2023 5:59 PM Dictation workstation: [id number] Charting was completed using voice recognition technology and may include unintended errors. 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 Vidal for EGD colonoscopy Associated Problem(s): Hypertension Advise get her Lotrel 5/40 a day plus Toprol 25 mg a day follow-up 2 weeks Associated Problem(s): DM type 2 with diabetic mixed hyperlipidemia (Multi) CMP CPK lipid once a year documented in this encounter [facility] Work Phone: 12-08-2023 Evaluation + Plan note Associated Problem(s): Alcohol abuse Get ultrasound of the gallbladder liver pancreas and kidney given B12 folic acid thiamine Pepcid and follow-up [facility] Work Phone: 12-08-2023 Evaluation + Plan note Associated Problem(s): Abdominal pain Father had colon cancer personal history of anemia with abdominal pain refer to GI Dr. Vidal for EGD colonoscopy [facility] Work Phone: 12-08-2023 Evaluation + Plan note Associated Problem(s): Hypertension Advise get her Lotrel 5/40 a day plus Toprol 25 mg a day follow-up 2 weeks [facility] Work Phone: 12-08-2023 Evaluation + Plan note Associated Problem(s): DM type 2 with diabetic mixed hyperlipidemia (Multi) CMP CPK lipid once a year [facility] Work Phone: 12-08-2023 History of Presen t illness Narrative Subjective Patient ID: Jorge Hollis is a 28 y.o. male who presents for Annual Exam, GI Problem (Vomiting, pain, weekly occurrence. ), and Fatigue. 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 ([facility]-HCC) Not suicidal PHQ less than 4 Relevant Orders Hemoglobin A1c Albumin-Creatinine Ratio, Urine Random CBC and Auto Differential Comprehensive Metabolic Panel Hemoglobin A1C Lipid Panel TSH with reflex to Free T4 if abnormal Uric Acid Colonoscopy Screening; Average Risk Patient Echocardiogram Stress Test Hypertension Advise get her Lotrel 5/40 a day plus Toprol 25 mg a day follow-up 2 weeks DM type 2 with diabetic mixed hyperlipidemia (Multi) CMP CPK lipid once a year Relevant Orders Hemoglobin A1c Albumin-Creatinine Ratio, Urine Random CBC and Auto Differential Comprehensive Metabolic Panel Hemoglobin A1C Lipid Panel TSH with reflex to Free T4 if abnormal Uric Acid Colonoscopy Screening; Average Risk Patient Echocardiogram Stress Test GERD without esophagitis Abdominal pain Father had colon cancer personal history of anemia with abdominal pain refer to GI Dr. Vidal for EGD colonoscopy Relevant Orders Hemoglobin A1c Albumin-Creatinine Ratio, Urine Random CBC and Auto Differential Comprehensive Metabolic Panel Hemoglobin A1C Lipid Panel TSH with reflex to Free T4 if abnormal Uric Acid Colonoscopy Screening; Average Risk Patient Echocardiogram Stress Test US biliary system Alcohol abuse Get ultrasound of the gallbladder liver pancreas and kidney given B12 folic acid thiamine Pepcid and follow-up Relevant Orders Hemoglobin A1c Albumin-Creatinine Ratio, Urine Random CBC and Auto Differential Comprehensive Metabolic Panel Hemoglobin A1C Lipid Panel TSH with reflex to Free T4 if abnormal Uric Acid Colonoscopy Screening; Average Risk Patient Echocardiogram Stress Test Chronic kidney disease Relevant Orders Hemoglobin A1c Albumin-Creatinine Ratio, Urine Random CBC and Auto Differential Comprehensive Metabolic Panel Hemoglobin A1C Lipid Panel TSH with reflex to Free T4 if abnormal Uric Acid Colonoscopy Screening; Average Risk Patient Echocardiogram Stress Test US renal complete GI Problem The primary symptoms include fatigue. Fatigue Associated symptoms include fatigue. 28-year-old patient single no children 1 brother 2 sister Mother have a thyroid problem Father had colon cancer with metastasis Personal history of diabetes hypertension hyperlipidemia moderate to alcohol abuse complaining of the nausea vomiting abdominal pain associated with the uncontrolled hypertension Negative for jaundice hematuria rectal bleeding Negative for headache or chest pain Negative for chemical abuse Negative for fall Negative for COVID-19 Negative for hepatitis A, B, and C Past Medical History: Diagnosis Date Other conditions influencing health status No history of previous surgery Personal history of other diseases of the nervous system and sense organs 06/11/2021 History of chronic fatigue syndrome Past Surgical History: Procedure Laterality Date NO PAST SURGERIES No Known Allergies Current Outpatient Medications Medication Sig Dispense Refill Dexcom G6 Sensor device Dexcom G6 Transmitter device glucagon 1 mg injection Inject 1 mg into the muscle if needed. INSULIN ASPART U-100 SUBQ Used for his Omnipod insulin pump use up to 95 units daily as directed insulin detemir (Levemir Flextouch) 100 unit/mL (3 mL) pen Use as Directed for pump failure NovoLOG U-100 Insulin aspart 100 unit/mL injection Omnipod 5 G6 Intro Kit, Gen 5, cartridge No current facility-administered medications for this visit. Family History Problem Relation Name Age of Onset Thyroid disease Mother Alcohol abuse Father Clotting disorder Father Social History Socioeconomic History Marital status: Single Tobacco Use Smoking status: Never Smokeless tobacco: Never Substance and Sexual Activity Alcohol use: Not Currently Alcohol/week: 0.0 - 40.0 standard drinks of alcohol Drug use: Never Immunization History Administered Date(s) Administered DTP 1996, 1996, 1996, 10/31/1997, 03/05/2002 Flu vaccine (IIV4), preservative free *Check age/dose* 03/08/2014, 05/22/2015 Hepatitis B vaccine, 19 yrs and under (RECOMBIVAX, ENGERIX) 1996, 1996, 03/24/1997 Hib (HbOC) 1996, 1996, 1996, 10/31/1997 Influenza, Unspecified 02/27/2009, 05/01/2011 Influenza, injectable, quadrivalent 03/30/2013 Influenza, seasonal, injectable 03/30/2013 MMR vaccine, subcutaneous (MMR II) 10/31/1997, 03/05/2002 Meningococcal MCV4, Unspecified 02/27/2009 Pfizer Purple Cap SARS-CoV-2 07/20/2020, 08/10/2020 Pneumococcal polysaccharide vaccine, 23-valent, age 2 years and older (PNEUMOVAX 23) 02/27/2009 Poliovirus vaccine, subcutaneous (IPOL) 1996, 1996, 10/31/1997, 03/05/2002 Tdap vaccine, age 7 year and older (BOOSTRIX, ADACEL) 02/27/2009 Review of Systems Constitutional: Positive for fatigue. Review of systems is otherwise negative unless stated above or in history of present illness. Objective Visit Vitals BP (!) 173/95 Pulse 109 Ht 1.854 m (6' 1) Wt 89.4 kg (197 lb) SpO2 98% BMI 25.99 kg/m Smoking Status Never BSA 2.15 m Physical Exam Cardiovascular: Pulses: Dorsalis pedis pulses are 2+ on the right side and 2+ on the left side. Posterior tibial pulses are 2+ on the right side and 2+ on the left side. Musculoskeletal: Right foot: No deformity. Left foot: No deformity. Feet: Right foot: Protective Sensation: 5 sites tested. Skin integrity: Skin integrity normal. Toenail Condition: Right toenails are normal. Left foot: Protective Sensation: 5 sites tested. Skin integrity: Skin integrity normal. Toenail Condition: Left toenails are normal. Constitutional: BMI 25 General: not in acute distress. HENT: Head: Normocephalic and atraumatic. Nose: Nose normal. Eyes: No jaundice Extraocular Movements: Extraocular movements intact. Conjunctiva/sclera: Conjunctivae normal. Cardiovascular: S4 Rate and Rhythm: Normal rate , No M/R/G Pulmonary: Rhonchi Effort: Pulmonary effort is normal. Breath sounds: Normal, Bilat Equal AE Skin: Dry peeling skin General: Skin is warm. Neurological: Diabetic neuropathy Mental Status: He is alert and oriented to person, place, and time. Psychiatric: Depression without suicide Mood and Affect: Mood normal. Behavior: Behavior normal. Musculoskeletal no gout FROM in all extremitirs, Joint-no swelling or tenderness No visits with results within 4 Month(s) from this visit. Latest known visit with results is: Lab on 06/09/2023 Component Date Value Ref Range Status HIV 1/2 Antigen/Antibody Screen wi* 06/09/2023 Nonreactive Nonreactive Final Hepatitis C AB 06/09/2023 Nonreactive Nonreactive Final Albumin, Urine Random 06/09/2023 425.6 Not established mg/L Final Creatinine, Urine Random 06/09/2023 53.8 20.0 - 370.0 mg/dL Final Albumin/Creatinine Ratio 06/09/2023 791.1 (H) <30.0 ug/mg Creat Final WBC 06/09/2023 5.7 4.4 - 11.3 x10*3/uL Final nRBC 06/09/2023 0.0 0.0 - 0.0 /100 WBCs Final RBC 06/09/2023 5.34 4.50 - 5.90 x10*6/uL Final Hemoglobin 06/09/2023 16.4 13.5 - 17.5 g/dL Final Hematocrit 06/09/2023 47.4 41.0 - 52.0 % Final MCV 06/09/2023 89 80 - 100 fL Final MCH 06/09/2023 30.7 26.0 - 34.0 pg Final MCHC 06/09/2023 34.6 32.0 - 36.0 g/dL Final RDW 06/09/2023 12.9 11.5 - 14.5 % Final Platelets 06/09/2023 185 150 - 450 x10*3/uL Final Neutrophils % 06/09/2023 48.6 40.0 - 80.0 % Final Immature Granulocytes %, Automated 06/09/2023 0.4 0.0 - 0.9 % Final Lymphocytes % 06/09/2023 35.3 13.0 - 44.0 % Final Monocytes % 06/09/2023 12.0 2.0 - 10.0 % Final Eosinophils % 06/09/2023 2.6 0.0 - 6.0 % Final Basophils % 06/09/2023 1.1 0.0 - 2.0 % Final Neutrophils Absolute 06/09/2023 2.76 1.20 - 7.70 x10*3/uL Final Immature Granulocytes Absolute, Au* 06/09/2023 0.02 0.00 - 0.70 x10*3/uL Final Lymphocytes Absolute 06/09/2023 2.00 1.20 - 4.80 x10*3/uL Final Monocytes Absolute 06/09/2023 0.68 0.10 - 1.00 x10*3/uL Final Eosinophils Absolute 06/09/2023 0.15 0.00 - 0.70 x10*3/uL Final Basophils Absolute 06/09/2023 0.06 0.00 - 0.10 x10*3/uL Final Glucose 06/09/2023 250 (H) 74 - 99 mg/dL Final Sodium 06/09/2023 140 136 - 145 mmol/L Final Potassium 06/09/2023 4.0 3.5 - 5.3 mmol/L Final Chloride 06/09/2023 99 98 - 107 mmol/L Final Bicarbonate 06/09/2023 27 21 - 32 mmol/L Final Anion Gap 06/09/2023 18 10 - 20 mmol/L Final Urea Nitrogen 06/09/2023 13 6 - 23 mg/dL Final Creatinine 06/09/2023 0.83 0.50 - 1.30 mg/dL Final eGFR 06/09/2023 >90 >60 mL/min/1.73m*2 Final Calcium 06/09/2023 10.1 8.6 - 10.6 mg/dL Final Albumin 06/09/2023 5.3 (H) 3.4 - 5.0 g/dL Final Alkaline Phosphatase 06/09/2023 74 33 - 120 U/L Final Total Protein 06/09/2023 7.6 6.4 - 8.2 g/dL Final AST 06/09/2023 26 9 - 39 U/L Final Bilirubin, Total 06/09/2023 0.5 0.0 - 1.2 mg/dL Final ALT 06/09/2023 35 10 - 52 U/L Final Amphetamine Screen, Urine 06/09/2023 Presumptive Negative Presumptive Negative Final Barbiturate Screen, Urine 06/09/2023 Presumptive Negative Presumptive Negative Final Benzodiazepines Screen, Urine 06/09/2023 Presumptive Negative Presumptive Negative Final Cannabinoid Screen, Urine 06/09/2023 Presumptive Negative Presumptive Negative Final Cocaine Metabolite Screen, Urine 06/09/2023 Presumptive Negative Presumptive Negative Final Fentanyl Screen, Urine 06/09/2023 Presumptive Negative Presumptive Negative Final Opiate Screen, Urine 06/09/2023 Presumptive Negative Presumptive Negative Final Oxycodone Screen, Urine 06/09/2023 Presumptive Negative Presumptive Negative Final PCP Screen, Urine 06/09/2023 Presumptive Negative Presumptive Negative Final Hemoglobin A1C 06/09/2023 9.3 (H) see below % Final Estimated Average Glucose 06/09/2023 220 Not Established mg/dL Final Cholesterol 06/09/2023 297 (H) 0 - 199 mg/dL Final HDL-Cholesterol 06/09/2023 73.2 mg/dL Final Cholesterol/HDL Ratio 06/09/2023 4.1 Final LDL Calculated 06/09/2023 177 (H) <=99 mg/dL Final VLDL 06/09/2023 47 (H) 0 - 40 mg/dL Final Triglycerides 06/09/2023 236 (H) 0 - 149 mg/dL Final Non HDL Cholesterol 06/09/2023 224 (H) 0 - 149 mg/dL Final Magnesium 06/09/2023 2.19 1.60 - 2.40 mg/dL Final WBC, Urine 06/09/2023 NONE 1-5, NONE /HPF Final RBC, Urine 06/09/2023 NONE NONE, 1-2, 3-5 /HPF Final Uric Acid 06/09/2023 6.3 4.0 - 7.5 mg/dL Final Thyroid Stimulating Hormone 06/09/2023 4.78 (H) 0.44 - 3.98 mIU/L Final Vitamin B12 06/09/2023 275 211 - 911 pg/mL Final Iron 06/09/2023 77 35 - 150 ug/dL Final UIBC 06/09/2023 304 110 - 370 ug/dL Final TIBC 06/09/2023 381 240 - 445 ug/dL Final % Saturation 06/09/2023 20 (L) 25 - 45 % Final Testosterone, Free 06/09/2023 131.4 35.0 - 155.0 pg/mL Final Testosterone, Total, LC-MS/MS 06/09/2023 638 250 - 1100 ng/dL Final Thyroxine, Free 06/09/2023 1.10 0.78 - 1.48 ng/dL Final Radiology: Reviewed imaging in powerchart. No results found. Charting was completed using voice recognition technology and may include unintended errors. documented in this encounter [facility] Work Phone: 09-04-2023 Discharge summary Note Date/Time September 04, 2023 7:54am [facility] Medical Records Department [address] [place] [address] Emergency Department Summary 09/04/23 MR#: [id number] Acct: [id number] Name: JORGE HOLLIS Rep #:[id number] : 1995 28 From: Lavell Patel MD PCP: DEXTER DANIEL MD Status:REG ER Location: ED HPI HPI - GI History of Present Illness Chief Complaint: Abd Pain Informant: patient Nausea/Vomiting/Emesis GI Symptom: Positive for Nausea and Vomiting Onset: Yesterday Quality: Positive for Nonbilious; Negative for Blood streaks, Coffee ground or Hematemesis Severity: Severe Diarrhea/Melena/Hematochezia GI Symptom: Positive for Diarrhea; Negative for Melena or Hematochezia Onset: Today Stool Quality: Positive for Watery Episodes: 1 Associated Symptoms Associated Symptoms: Negative for Dysuria, Frequency or Hematuria Narrative Narrative: 28-year-old male woke up yesterday morning vomiting, he was drinking alcohol theprevious night and thought maybe it was related but the vomiting persisted all day and into this morning, and now is having diarrhea as well. No fevers or chills. 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 He denies any known fevers or chills. No blood anywhere. No recent antibiotics or hospitalizations or travel out of the area or country. Patient states he is a type I diabetic, he states his blood sugars been good. He has an insulin pump and a Dexcom reader. Currently he is at 158. Denies anydyspnea. [facility] Medical History Alcohol abuse Alcohol dependence Anxiety Depression Diabetes mellitus type 1 High cholesterol History of diabetes mellitus HTN (hypertension) Presence of insulin pump Vitamin D deficiency Home Medications Dexcom G6 Documentation Manager (blood-glucose meter,continuous) #1 ea 11/14/21 [Rx Last Taken Unknown] cholecalciferol (vitamin D3) 1,250 mcg (50,000 unit) capsule 1,250 mcg PO QWEEK #24 caps 11/14/21 [Rx Last Taken Unknown] insulin pump cart,automated,BT (Omnipod 5 G6 Pods (Gen 5) subcutaneous cartridge) #30 ea 11/14/21 [Rx Last Taken Unknown] Dexcom G6 Sensor (blood-glucose sensor) #9 ea 04/28/23 [Rx Last Taken Unknown] Dexcom G6 Transmitter (blood-glucose transmitter) #1 ea 04/28/23 [Rx Last Taken Unknown] Novolog U-100 Insulin aspart 100 unit/mL subcutaneous solution (insulin aspart U-100) 100 unit continuous subcutaneous infusion .continuous #90 mL 04/28/23 [Rx Last Taken Unknown] insulin pump cartridge,automated dose,BT with controller subcutaneous (Omnipod 5G6 Intro Kit (Gen 5) subcutaneous cartridge with controller) #1 ea 04/28/23 [Rx Last Taken Unknown] amlodipine 5 mg-benazepril 10 mg capsule 1 cap PO QDAY 08/15/23 [History Last Taken Unknown] ondansetron 8 mg disintegrating tablet 8 mg PO Q8H PRN nausea and vomiting #20 tabs 09/04/23 [Rx Last Taken Unknown] Allergy/AdvReac Type Severity Reaction Status Date / Time No Known Allergies Allergy Verified 09/04/23 07:39 Family History Mother Hypertension Surgical History No history of previous surgery Social History household members: none housing: apartment Smoking Status: Never smoker alcohol intake: current alcohol intake frequency: 3 or more drinks per day Alcohol type: beer and hard liquor substance use type: does not use ROS ROS ED Constitutional Constitutional ED: Reports malaise; Denies chills or fever(s) Eyes Eyes: Denies change in vision or diplopia ENT ENT ED: Denies rhinorrhea or sore throat Cardiovascular Cardiovascular: Denies chest pain or palpitations Respiratory/Chest Respiratory/Chest: Denies cough or dyspnea Gastrointestinal Gastrointestinal: Reports diarrhea, nausea and vomiting; Denies abdominal pain Genitourinary Genitourinary ED: Denies dysuria or hematuria Musculoskeletal Musculoskeletal: Denies back pain or neck pain Integumentary Denies abscess or rash Neurologic Neurologic: Denies headache(s), paresthesias or weakness Psychiatric Psychiatric: Denies anxiety or suicidal thoughts EXAM Physical Exam Const Vital Signs: 09/04/23 07:40 09/04/23 07:39 09/04/23 10:15 Temperature 98.9 F 98.1 F Temperature Source Temporal Oral Pulse Rate 108 H 106 H 57 L Respiratory Rate 20 H 20 H 16 Blood Pressure 151/115 H 155/118 H 127/66 H Blood Pressure Mean 127 130 86 Pulse Ox 96 98 98 Oxygen Delivery Method Room Air Room Air Room Air Positive well nourished and well developed General Appearance ED: well developed and NAD HEENT Reports moist mucous membranes normocephalic and atraumatic Eyes PERRL and EOMs intact bilaterally Neck full ROM and supple Resp normal respiratory effort and clear to auscultation bilaterally Cardio regular rate, regular rhythm and no murmurs Rate: Negative for tachycardic GI non-tender and non-distended Auscultation: normoactive bowel sounds Palpation: soft Back/Spine no CVA tenderness General Back: other FROM Extremity normal to inspection General Extremety ED: Negative for edema, pulses abnormal or tenderness General Extremity: Negative for edema or pulses abnormal Neuro oriented x3, CN's II-XII intact bilaterally and no sensory deficits noted Sensorium / Orientation: awake and alert Motor Exam: strength 5/5 throughout Psych mental status grossly normal and thought process normal Skin no rashes or lesions noted and no wounds MDM MDM MDM Narrative Medical decision making narrative: Labs unremarkable, anion gap not elevated, no electrolytes that require replacing, not in DKA basically. He is feeling much better with decrease in hisheart rate after IV fluids and Zofran. He is tolerating oral fluids. He does have a bit of a lymphocytosis, but his total white blood count is well within normal range, I do suspect this is viral gastroenteritis is most likely etiology. He has not had any significant bouts of diarrhea to suggest this is C. difficile, nor did he have any that we could send for testing here but he does not have any red flag risk factors for bacterial etiology. Supportive careadvised along with Zofran and supportive care, given a work note and follow-up advised if he has symptoms that persist longer than 72 hours. Lab Data Attestation: I reviewed the patient's lab results. Labs: Laboratory Results - last 24 hr 09/04/23 08:00 WBC 9.9 RBC 4.94 Hgb 15.1 Hct 43.2 MCV 87.4 MCH 30.6 MCHC 35.0 RDW Std Deviation 41.1 RDW Coeff of Last 12.9 Plt Count 177 MPV 9.4 Immature Gran % (Auto) 0.400 Neut % (Auto) 43.0 L Lymph % (Auto) 45.7 H [place] % (Auto) 9.4 Eos % (Auto) 0.1 Baso % (Auto) 1.4 H Absolute Neuts (auto) 4.3 Absolute Lymphs (auto) 4.53 H Nucleated RBC % 0 Differential Comment SCANNED Atypical Lymphocytes 1+ Sodium 138 Potassium 3.5 Chloride 103 Carbon Dioxide 26.0 Anion Gap 9 BUN 9 Creatinine 0.96 Estim Creat Clear Calc 130.62 Est GFR (MDRD) Af Amer 121 Est GFR (MDRD) Non-Af 100 BUN/Creatinine Ratio 9.4 L Glucose 178 H Calcium 8.9 Total Bilirubin 1.10 H AST 130 H ALT 86 H Alkaline Phosphatase 151 H Total Protein 7.1 Albumin 3.5 Globulin 3.6 Albumin/Globulin Ratio 1.0 Discharge Plan Triage Chief Complaint: Abd Pain ED Provider: Lavell Patel Dx/Rx/DC Orders Clinical Impression: Gastroenteritis Instructions: ED Gastroenteritis, Viral (Adult) Prescriptions: New ondansetron 8 mg tablet,disintegrating 8 mg PO Q8H PRN (Reason: nausea and vomiting) Qty: 20 0RF No Action (DME) Omnipod 5 G6 Pods (Gen 5) Cartridge See Rx Instructions .Route Qty: 30 1RF Rx Instructions: 1 pod q 72 hours (DME) Dexcom G6 Documentation Manager Misc See Rx Instructions .Route Qty: 1 0RF Rx Instructions: As directed cholecalciferol (vitamin D3) 1,250 mcg (50,000 unit) capsule 1,250 mcg PO QWEEK Qty: 24 0RF (DME) Omnipod 5 G6 Intro Kit (Gen 5) Cartridge See Rx Instructions .Route Qty: 1 0RF Rx Instructions: As directed (DME) Dexcom G6 Sensor Device See Rx Instructions .Route Qty: 9 1RF Rx Instructions: 1 sensor q 10 days (DME) Dexcom G6 Transmitter Device See Rx Instructions .Route Qty: 1 1RF Rx Instructions: 1 transmitter q 90 days insulin aspart U-100 [Novolog U-100 Insulin aspart] 100 unit/mL solution 100 unit continuous subcutaneous infusion .continuous Qty: 90 1RF amlodipine-benazepril 5-10 mg capsule 1 cap PO QDAY Stand Alone Forms: ED Work / School Excuse Primary Care Provider: DEXTER DANIEL MD Referrals: DEXTER DANIEL MD [Other] - 3-5 Days if not improving Disposition Disposition: Home, Self Care What to do if you have Problems For any increased pain, shortness of breath, bleeding, nausea or vomiting, chest pain, or any unexpected problems, contact your Primary Care Provider. Call [facility] ([phone]) or report to the closest Emergency Room. Call 911 if necessary. 09/04/23 1053 <Electronically signed by Lavell Patel MD> Cosigner Signature (if applicable): CC: DEXTER DANIEL MD ~ Signed [facility] Work Phone: 1(360) 625-700601-15-2024 Evaluation + Plan note* Assessment & Plan Note - Dexter Daniel MD - 06/09/2023 1:00 PM ESTAssociated Problem(s): DM type 2 with diabetic mixed hyperlipidemia (CMS/HCC) Diabetes is chronic disease, it does not get cured but it can be controlled, in modern medicine there are variety of measures taken to control DM. Usually we want to preserve beta cell functions. Please understand the disease and how our life style can affect control of glycemia. Diabetes leads to macro and microvascular complications and they could be devastating. It is important to have annual eye check and frequent foot inspection and foot inspection. Kidney dysfunction including dialysis, foot amputations, neuropathy, foot ulcers and accelerated atherosclerotic vascular disease are known complications of uncontrolled DM, pt was educated and explained. [facility] Work Phone: [phone] 709-832801-15-2024 Evaluation + Plan note* Assessment & Plan Note - Dexter Daniel MD - 06/09/2023 1:00 PM ESTAssociated Problem(s): Current mild episode of major depressive disorder without prior episode (CMS/ HCC) Depression is chronic and quite common and notorious mental health disorder and it is quite common and widespread, there are several therapeutics available for depression now a days. It is consideredas chemical imbalance disorder and with medications , it can be adjusted. There are side effects from SSRI and SNRIs but on rn long term care, they are well tolerated. Please do not feel awkward or shy to con tact us if feel tired, sleepy, lack of energy or aloof/ alone. Untreated depression can bring serious consequences including suicidal ideations, mental health counselling is available if need arises.Usually treatment of depression is long lasting therapy with periodic evaluations and follow ups. Pt with depression no longer have to feel frustrated, helpless or isolated.Detailed discussion was carried out. [facility] Work Phone: [phone] [phone] Miscellaneous Notes* Assessment & Plan Note - Dexter Daniel MD - 06/09/2023 1:00 PM ESTAssociated Problem(s): DM type 2 with diabetic mixed hyperlipidemia (CMS/HCC) Diabetes is chronic disease, it does not get cured but it can be controlled, in modern medicine there are variety of measures taken to control DM. Usually we want to preserve beta cell functions. Please understand the disease and how our life style can affect control of glycemia. Diabetes leads to macro and microvascular complications and they could be devastating. It is important to have annual eye check and frequent foot inspection and foot inspection. Kidney dysfunction including dialysis, foot amputations, neuropathy, foot ulcers and accelerated atherosclerotic vascular disease are known complications of uncontrolled DM, pt was educated and explained. * Assessment & Plan Note - Dexter Daniel MD - 06/09/2023 1:00 PM EST Associated Problem(s): Current mild episode of major depressive disorder without prior episode (CMS/HCC) Depression is chronic and quite common and notorious mental health disorder and it is quite common and widespread, there are several therapeutics available for depression now a days. It is consideredas chemical imbalance disorder and with medications , it can be adjusted. There are side effects from SSRI and SNRIs but on [facility], they are well tolerated. Please do not feel awkward or shy to con tact us if feel tired, sleepy, lack of energy or aloof/ alone. Untreated depression can bring serious consequences including suicidal ideations, mental health counselling is available if need arises.Usually treatment of depression is long lasting therapy with periodic evaluations and follow ups. Pt with depression no longer have to feel frustrated, helpless or isolated.Detailed discussion was carried out. documented in this [facility] Work Phone: [phone] 110-357501-15-2024 History of Present illness Narrative* Dexter Daniel MD - 06/09/2023 8:45 AM EST Subjective Patient ID: Jorge Hollis is a 28 y.o. male who presents for Fatigue (All the time ) and Alcohol Problem (More now ). 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 Anxiety depression refer patient to the psych Gastritis continue Protonix 40 mg once a day magnesium once a year history of the smoking alcohol advise B12 folic acid thiamine and Refer patient to chemical dependency program given nicotine obstruction thiamine Advised varicella vaccine Pneumovax Tdap COVID-19 flu pneumonia vaccines follow-up Problem List Items Addressed This Visit 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) Relevant Orders HIV 1/2 Antigen/Antibody Screen with Reflex to Confirmation Hepatitis C antibody Albumin , Urine Random CBC and Auto Differential Comprehensive Metabolic Panel Drug Screen, Urine With Reflex to Confirmation Hemoglobin A1C Lipid Panel Magnesium Microscopic Only, Urine Uric Acid TSH with reflex to Free T4 if abnormal Vitamin B12 Iron and TIBC Testosterone, total and free Current mild episode of major depressive disorder without prior episode (CMS/HCC) Depression is chronic and quite common and notorious mental health disorder and it is quite common and widespread, there are several therapeutics available for depression now a days. It is consideredas chemical imbalance disorder and with medications , it can be adjusted. There are side effects from SSRI and SNRIs but on rn long term care, they are well tolerated. Please do not feel awkward or shy to con tact us if feel tired, sleepy, lack of energy or aloof/ alone. Untreated depression can bring serious consequences including suicidal ideations, mental health counselling is available if need arises.Usually treatment of depression is long lasting therapy with periodic evaluations and follow ups. Pt with depression no longer have to feel frustrated, helpless or isolated.Detailed discussion was carried out. Relevant Orders HIV 1/2 Antigen/Antibody Screen with Reflex to Confirmation Hepatitis C antibody Albumin , Urine Random CBC and Auto Differential Comprehensive Metabolic Panel Drug Screen, Urine With Reflex to Confirmation Hemoglobin A1C Lipid Panel Magnesium Microscopic Only, Urine Uric Acid TSH with reflex to Free T4 if abnormal Vitamin B12 Iron and TIBC Hypertension Relevant Medications amLODIPine-benazepriL (LotreL) 5-10 mg capsule Other Relevant Orders HIV 1/2 Antigen/Antibody Screen with Reflex to Confirmation Hepatitis C antibody Albumin , Urine Random CBC and Auto Differential Comprehensive Metabolic Panel Drug Screen, Urine With Reflex to Confirmation Hemoglobin A1C Lipid Panel Magnesium Microscopic Only, Urine Uric Acid TSH with reflex to Free T4 if abnormal Vitamin B12 Iron and TIBC DM type 2 with diabetic mixed hyperlipidemia (CMS/HCC) Diabetes is chronic disease, it does not get cured but it can be controlled, in modern medicine there are variety of measures taken to control DM. Usually we want to preserve beta cell functions. Please understand the disease and how our life style can affect control of glycemia. Diabetes leads to macro and microvascular complications and they could be devastating. It is important to have annual eye check and frequent foot inspection and foot inspection. Kidney dysfunction including dialysis, foot amputations, neuropathy, foot ulcers and accelerated atherosclerotic vascular disease are known complications of uncontrolled DM, pt was educated and explained. Relevant Orders HIV 1/2 Antigen/Antibody Screen with Reflex to Confirmation Hepatitis C antibody Albumin , Urine Random CBC and Auto Differential Comprehensive Metabolic Panel Drug Screen, Urine With Reflex to Confirmation Hemoglobin A1C Lipid Panel Magnesium Microscopic Only, Urine Uric Acid TSH with reflex to Free T4 if abnormal Vitamin B12 Iron and TIBC GERD without esophagitis Relevant Orders HIV 1/2 Antigen/Antibody Screen with Reflex to Confirmation Hepatitis C antibody Albumin , Urine Random CBC and Auto Differential Comprehensive Metabolic Panel Drug Screen, Urine With Reflex to Confirmation Hemoglobin A1C Lipid Panel Magnesium Microscopic Only, Urine Uric Acid TSH with reflex to Free T4 if abnormal Vitamin B12 Iron and TIBC Abdominal pain Relevant Orders HIV 1/2 Antigen/Antibody Screen with Reflex to Confirmation Hepatitis C antibody Albumin , Urine Random CBC and Auto Differential Comprehensive Metabolic Panel Drug Screen, Urine With Reflex to Confirmation Hemoglobin A1C Lipid Panel Magnesium Microscopic Only, Urine Uric Acid TSH with reflex to Free T4 if abnormal US biliary system Vitamin B12 Iron and TIBC Fatigue due to depression Alcohol abuse - Primary HPI 28-year-old patient diabetes hypertension hyperlipidemia anxiety depression abuse of the alcohol and smoking advised stop smoking drinking refer patient In April dependency program and psych Seen by rebar worker advised to follow-up with the dietitians 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 worker 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 INSULIN ASPART U-100 SUBQ Used for his Omnipod insulin pump use up to 95 units daily as directed insulin detemir (Levemir Flextouch) 100 unit/mL (3 mL) pen Use as Directed for pump failure NovoLOG U-100 Insulin aspart 100 unit/mL injection Omnipod 5 G6 Intro Kit, Gen 5, cartridge amLODIPine-benazepriL (LotreL) 5-10 mg capsule Take 1 capsule by mouth once daily. 90 capsule 3 No current facility-administered medications for this visit. Family History Problem Relation Name Age of Onset Thyroid disease Mother Alcohol abuse Father Clotting disorder Father Social History Socioeconomic History Marital status: Single Spouse name: None Number of children: None Years of education: None Highest education level: None Occupational History None Tobacco Use Smoking status: Never Smokeless tobacco: Never Substance and Sexual Activity Alcohol use: Not Currently Alcohol/week: 0.0 - 40.0 standard drinks of alcohol Drug use: Never Sexual activity: None Other Topics Concern None Social History Narrative None Social Determinants of Health Financial Resource Strain: Not on file Food Insecurity: Not on file Transportation Needs: Not on file Physical Activity: Not on file Stress: Not on file Social Connections: Not on file Intimate Partner Violence: Not on file Housing Stability: Not on file Immunization History Administered Date(s) Administered DTP 1996, 1996, 1996, 10/31/1997, 03/05/2002 Flu vaccine (IIV4), preservative free *Check age/dose* 03/08/2014, 05/22/2015 Hepatitis B vaccine, pediatric/adolescent (RECOMBIVAX, ENGERIX) 1996, 1996, 03/24/1997 Hib (HbOC) 1996, 1996, 1996, 10/31/1997 Influenza, Unspecified 02/27/2009, 05/01/2011 Influenza, injectable, quadrivalent 03/30/2013 Influenza, seasonal, injectable 03/30/2013 MMR vaccine, subcutaneous (MMR II) 10/31/1997, 03/05/2002 Meningococcal MCV4, Unspecified 02/27/2009 Pfizer Purple Cap SARS-CoV-2 07/20/2020, 08/10/2020 Pneumococcal polysaccharide vaccine, 23-valent, age 2 years and older (PNEUMOVAX 23) 02/27/2009 Poliovirus vaccine, subcutaneous (IPOL) 1996, 1996, 10/31/1997, 03/05/2002 Tdap vaccine, age 7 year and older (BOOSTRIX) 02/27/2009 Review of Systems Review of systems is otherwise negative unless stated above or in history of present illness. Objective Visit Vitals BP (!) 146/107 (BP Location: Right arm, Patient Position: Sitting, BP Cuff Size: Adult) Pulse 107 Temp 36.4 C (97.6 F) Ht 1.854 m (6' 1) Wt 87.5 kg (193 lb) SpO2 97% BMI 25.46 kg/m Smoking Status Never BSA 2.12 m Physical Exam Constitutional: General: not in acute distress. HENT: Head: Normocephalic and atraumatic. Nose: Nose normal. Eyes: Extraocular Movements: Extraocular movements intact. Conjunctiva/sclera: Conjunctivae normal. Cardiovascular: Heart murmur Pulmonary: Crackles Skin: General: Skin is warm. Neurological: Neuropathy Mental Status: He is alert and oriented to person, place, and time. Psychiatric: Anxiety depression Mood and Affect: Mood normal. Behavior: Behavior normal. Musculoskeletal FROM in all extremitirs, Joint-no swelling or tenderness No visits with results within 4 Month(s) from this visit. Latest known visit with results is: [facility] Encounter on 07/26/2021 Component Date Value Ref Range Status Glucose 07/26/2021 243 (H) 74 - 99 mg/dL Final Sodium 07/26/2021 141 136 - 145 mmol/L Final Potassium 07/26/2021 4.3 3.5 - 5.3 mmol/L Final Chloride 07/26/2021 99 98 - 107 mmol/L Final Bicarbonate 07/26/2021 31 21 - 32 mmol/L Final Anion Gap 07/26/2021 15 10 - 20 mmol/L Final Urea Nitrogen 07/26/2021 15 6 - 23 mg/dL Final Creatinine 07/26/2021 0.89 0.50 - 1.30 mg/dL Final GFR MALE 07/26/2021 >90 >90 mL/min/1.73m2 Final Calcium 07/26/2021 10.6 8.6 - 10.6 mg/dL Final Albumin 07/26/2021 4.8 3.4 - 5.0 g/dL Final Alkaline Phosphatase 07/26/2021 121 (H) 33 - 120 U/L Final Total Protein 07/26/2021 7.7 6.4 - 8.2 g/dL Final AST 07/26/2021 21 9 - 39 U/L Final Total Bilirubin 07/26/2021 0.5 0.0 - 1.2 mg/dL Final ALT (SGPT) 07/26/2021 34 10 - 52 U/L Final WBC 07/26/2021 8.6 4.4 - 11.3 x10E9/L Final nRBC 07/26/2021 0.0 0.0 - 0.0 /100 WBC Final RBC 07/26/2021 5.61 4.50 - 5.90 x10E12/L Final Hemoglobin 07/26/2021 17.2 13.5 - 17.5 g/dL Final Hematocrit 07/26/2021 51.4 41.0 - 52.0 % Final MCV 07/26/2021 92 80 - 100 fL Final MCHC 07/26/2021 33.5 32.0 - 36.0 g/dL Final Platelets 07/26/2021 289 150 - 450 x10E9/L Final RDW 07/26/2021 12.3 11.5 - 14.5 % Final Neutrophils % 07/26/2021 62.8 40.0 - 80.0 % Final Immature Granulocytes %, Automated 07/26/2021 0.7 0.0 - 0.9 % Final Lymphocytes % 07/26/2021 23.1 13.0 - 44.0 % Final Monocytes % 07/26/2021 10.6 2.0 - 10.0 % Final Eosinophils % 07/26/2021 2.0 0.0 - 6.0 % Final Basophils % 07/26/2021 0.8 0.0 - 2.0 % Final Neutrophils Absolute 07/26/2021 5.41 1.20 - 7.70 x10E9/L Final Lymphocytes Absolute 07/26/2021 1.99 1.20 - 4.80 x10E9/L Final Monocytes Absolute 07/26/2021 0.91 0.10 - 1.00 x10E9/L Final Eosinophils Absolute 07/26/2021 0.17 0.00 - 0.70 x10E9/L Final Basophils Absolute 07/26/2021 0.07 0.00 - 0.10 x10E9/L Final TSH 07/26/2021 2.54 0.44 - 3.98 mIU/L Final Vitamin D, 25-Hydroxy 07/26/2021 11 (A) ng/mL Final Hemoglobin A1C 07/26/2021 9.8 (A) % Final Estimated Average Glucose 07/26/2021 235 MG/DL Final ALBUMIN (MG/L) IN URINE 07/26/2021 263.0 Not Established mg/L Final Albumin/Creatine Ratio 07/26/2021 263.5 (H) 0.0 - 30.0 ug/mg senior 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 No results found. Charting was completed using voice recognition technology and may include unintended errors. documented in this [facility] Work Phone: 1(547) 377-553710-28-2023 Progress note Author Colten Crystal [facility] March 22, 2023 10:10am Note Date/Time March 22, 2023 1 0:10am [facility] Medical Records Department [address] [place] [id number] Progress Note - Hospitalist 03/22/23 1009 MR#: [id number] Acct: [id number] Name: JORGE HOLLIS Rep #:[id number] : 1995 27 From: Colten ovalle MD PCP: DEXTER DANIEL Status:ADM IN [id number] Subjective Subjective Well, no issues overnight. CIWA score 0 Objective Data Objective Data Vital Signs: Vital Signs Temp Pulse Resp BP Pulse Ox O2 Del Method 98.6 F 71 18 123/83 H 98 Room Air 03/22/23 09:04 03/22/23 09:04 03/22/23 09:04 03/22/23 09:04 03/22/23 09:04 03/22/23 09:05 Oxygen Delivery Method Room Air Weight: 183 lb 10.321 oz Body Mass Index (BMI) 24.2 Intake & Output: Intake and Output for Last 24 Hours 03/21/23 03/22/23 03/23/23 03:59 03:59 03:59 Intake Total 1100 / 1100 Balance 1100 / 1100 Lab / Micro Data 03/21/23 06:10 Labs: Laboratory Results - last 24 hr 03/21/23 11:38: POC Glucose 313 H 03/21/23 16:20: POC Glucose 183 H 03/21/23 20:56: POC Glucose 265 H 03/22/23 06:46: POC Glucose 232 H Physical Exam Narrative General: Alert, Oriented x3, Cooperative, No apparent distress HEENT: Atraumatic, PERRLA, EOMI, Normocephalic Oral: Moist Mucosa Neck: Supple, No JVD Lungs: Clear to auscultation, Normal air movement, No rhonchi, No wheeze, No rales Cardiovascular: Regular rate, Regular Rhythm, Normal S1, Normal S2, No murmurs Abdomen: Soft, Non Tender, Non-Distended, No Hepato-splenomegaly Extremities: No edema, Capillary Refill Less than 3 Seconds Skin: No rashes, No breakdown Musculoskeletal: No Tenderness to Palpation of Joints or Extremities Neurological: Cranial nerves II-XII grossly intact, Motor Exam 5/5 strength throughout, Sensory exam intact to light touch and pain Psych/Mental Status: Normal Affect, Appropriate Assessment & Plan Assessment/Plan (1) Desire for detoxification: (2) ETOH abuse: (3) Diabetes mellitus type 1: QUALIFIERS: Diabetes mellitus complication status: with hypoglycemia Diabetes mellitus complication detail: without coma Qualified Code(s): E10.649 - Type 1 diabetes mellitus with hypoglycemia without coma (4) Presence of insulin pump: PLAN: Plan 1. Alcohol withdrawal/elevated LFT's/anxiety/depression ? Continue with the alcohol withdrawal protocol ? We will have him follow-up with 180 to develop a discharge plan ? LFTs have normalized, likely related to alcohol ? Continue with his home mental health medications ? We will plan for Vivitrol on discharge 2. DM 1 ? He is supposed to be wearing insulin pump however this caused him to be in significant hyperglycemia likely secondary to the fact that he is on a carb controlled diet which she likely does not follow at home ? Will place him on long-acting insulin with sliding scale insulin ? Accu-Cheks ACHS ? We will monitor and make adjustments as necessary 3. HTN/HLD ? Blood pressure are stable ? Continue with his home blood pressure medications will monitor and make adjustments ? Continue with his Lipitor DVT: Ambulation Charges/Coding Visit Charges Inpatient E&M: 21642 Subs Hosp L2 03/22/23 1010 <Electronically signed by Colten Crystal MD> Cosigner Signature (if applicable): CC: ~ Signed [facility] Work Phone: 1(759) 401-528410-27-2023 Progress note Author Colten Crystal [facility] March 21, 2023 9:33am Note Date/Time March 21, 2023 9 :33am [facility] Medical Records Department [address] [place] [address] Progress Note - Hospitalist 03/21/23929 MR#: [id number] Acct: [id number] Name: JORGE HOLLIS Rep #:[id number] : 1995 From: Colten ovalel MD PCP: DEXTER DANIEL Status:ADM IN Location: [facility] [id number] Subjective Subjective Resting comfortably, had fairly significant hypoglycemia yesterday so his insulin pump was held. CIWA score of 1 Objective Data Objective Data Vital Signs: Vital Signs Temp Pulse Resp BP Pulse Ox O2 Del Method 98.5 F 74 16 132/96 H 98 Room Air 03/21/23 07:57 03/21/23 07:57 03/21/23 07:57 03/21/23 07:57 03/21/23 08:20 03/21/23 08:20 Oxygen Delivery Method Room Air Weight: 183 lb 10.321 oz Body Mass Index (BMI) 24.2 Intake & Output: Intake and Output for Last 24 Hours 03/20/23 03/21/23 03/22/23 03:59 03:59 03:59 Intake Total 1100 / 1100 Balance 1100 / 1100 Lab / Micro Data 03/21/23 06:10 Labs: Laboratory Results - last 24 hr 03/20/23 11:21: POC Glucose 88 03/20/23 16:47: POC Glucose 40 L* 03/20/23 17:03: POC Glucose 69 L 03/20/23 17:40: POC Glucose 100 03/20/23 20:56: POC Glucose 371 H 03/21/23 05:31: POC Glucose 276 H 03/21/23 06:10: Sodium 133 L, Potassium 4.4, Chloride 98, Carbon Dioxide 24.0, Anion Gap 11, BUN 16, Creatinine 0.95, Estim Creat Clear Calc 133.17, Est GFR (MDRD) Af Amer 123, Est GFR (MDRD) Non-Af 102, BUN/Creatinine Ratio 16.9, Glucose 263 H, Calcium 9.0, Total Bilirubin 1.30 H, AST 36, ALT 59, Alkaline Phosphatase 76, Total Protein 7.4, Albumin 3.4, Globulin 4.0, Albumin/Globulin Ratio 0.8 L Physical Exam Narrative General: Alert, Oriented x3, Cooperative, No apparent distress HEENT: Atraumatic, PERRLA, EOMI, Normocephalic Oral: Moist Mucosa Neck: Supple, No JVD Lungs: Clear to auscultation, Normal air movement, No rhonchi, No wheeze, No rales Cardiovascular: Regular rate, Regular Rhythm, Normal S1, Normal S2, No murmurs Abdomen: Soft, Non Tender, Non-Distended, No Hepato-splenomegaly Extremities: No edema, Capillary Refill Less than 3 Seconds Skin: No rashes, No breakdown Musculoskeletal: No Tenderness to Palpation of Joints or Extremities Neurological: Cranial nerves II-XII grossly intact, Motor Exam 5/5 strength throughout, Sensory exam intact to light touch and pain Psych/Mental Status: Normal Affect, Appropriate Assessment & Plan Assessment/Plan (1) Desire for detoxification: (2) ETOH abuse: (3) Diabetes mellitus type 1: QUALIFIERS: Diabetes mellitus complication status: with hypoglycemia Diabetes mellitus complication detail: without coma Qualified Code(s): E10.649 - Type 1 diabetes mellitus with hypoglycemia without coma (4) Presence of insulin pump: PLAN: Plan 1. Alcohol withdrawal/elevated LFT's/anxiety/depression ? Continue with the alcohol withdrawal protocol ? We will have him follow-up with 180 to develop a discharge plan ? LFTs have normalized, likely related to alcohol ? Continue with his home mental health medications 2. DM 1 ? He is supposed to be wearing insulin pump however this caused him to be in significant hyperglycemia likely secondary to the fact that he is on a carb controlled diet which she likely does not follow at home ? Will place him on long-acting insulin with sliding scale insulin ? Accu-Cheks ACHS ? We will monitor and make adjustments as necessary 3. HTN/HLD ? Blood pressure are stable ? Continue with his home blood pressure medications will monitor and make adjustments ? Continue with his Lipitor DVT: Ambulation Charges/Coding Visit Charges Inpatient E&M: 14736 Subs Hosp L2 03/21/23 0933 <Electronically signed by Colten Crystal MD> Cosigner Signature (if applicable): CC: ~ Signed [facility] Work Phone: 1(689) 484-508010-26-2023 History and physical note Author William Bowers [facility] March 20, 2023 7:40am Note Date/Time March 20, 2023 4 :27am [facility] Medical Records Department [address] [facility] [place] [address] H&P Exam - Hospitalist 03/20/23 0424 MR#: [id number] Acct: [id number] Name: JORGE HOLLIS Rep #:[id number] : 1995 27 From: William Bowers MD PCP: DEXTER DANIEL Status:ADM IN Location: [facility] [id number] HPI - General General Date of Admission: 03/20/23 Date of Service: 03/20/23 Chief Complaint: Desire for alcohol detoxification HPI Narrative JORGE HOLLIS, is a 27 M with a significant history of hypertension; diabetes mellitus on insulin pump; and alcoholism who presents to the emergency department for alcohol detoxification. Of note patient reports that he has beendrinking for about 6 years. He reports drinking a lot each day. He reports drinking any alcoholic drink he can lay hands on ; and this includes beer, whisky and any other hard liquor. Last time he drank was about 2 hours prior to presentation. At time of evaluation he was not having any withdrawal symptoms but he is sure he will be withdrawing later on. He reports a one history of seizures. He is unsure whether his previous one time seizures was from alcohol withdrawal or not. [facility] Medical History Alcohol abuse Alcohol dependence Anxiety Depression Diabetes mellitus type 1 High cholesterol History of diabetes mellitus HTN (hypertension) Presence of insulin pump Vitamin D deficiency Home Medications Insulin Aspart [Novolog] See Protocol subcut UD dm 12/29/14 [History Last Taken 09/25/21] atorvastatin 10 mg tablet 10 mg PO QHS cholesterol lowering 09/25/21 [History Last Taken 09/21/21] metoprolol succinate 25 mg capsule sprinkle, ext. release 24 hr 25 mg PO DAILY blood pressure 09/25/21 [History Last Taken 09/23/21] Dexcom G6 Documentation Manager (blood-glucose meter,continuous) #1 ea 11/14/21 [Rx Last Taken Unknown] Dexcom G6 Sensor (blood-glucose sensor) #9 ea 11/14/21 [Rx Last Taken Unknown] Dexcom G6 Transmitter (blood-glucose transmitter) #1 ea 11/14/21 [Rx Last Taken Unknown] cholecalciferol (vitamin D3) 1,250 mcg (50,000 unit) capsule 1,250 mcg PO QWEEK #24 caps 11/14/21 [Rx Last Taken Unknown] insulin pump cart,automated,BT (Omnipod 5 G6 Pods (Gen 5) subcutaneous cartridge) #30 ea 11/14/21 [Rx Last Taken Unknown] insulin pump cartridge,automated dose,BT with controller subcutaneous (Omnipod 5G6 Intro Kit (Gen 5) subcutaneous cartridge with controller) #1 ea 11/14/21 [Rx Last Taken Unknown] Novolog U-100 Insulin aspart 100 unit/mL subcutaneous solution (insulin aspart U-100) 100 unit continuous subcutaneous infusion .continuous #90 mL 05/29/22 [Rx Last Taken Unknown] bupropion HCl 100 mg tablet 100 mg PO BID depression 06/17/22 [History Last Taken Unknown] lorazepam 1 mg tablet 1 mg PO QHS anxiety 06/17/22 [History Last Taken Unknown] ramipril 10 mg capsule 10 mg PO BID blood pressures 06/17/22 [History Last Taken Unknown] Allergy/AdvReac Type Severity Reaction Status Date / Time No Known Allergies Allergy Verified 03/19/23 23:54 Family History Mother Hypertension Surgical History No history of previous surgery Social History household members: none housing: apartment Smoking Status: Never smoker alcohol intake: current alcohol intake frequency: 3 or more drinks per day Alcohol type: beer and hard liquor substance use type: does not use ROS ROS Narrative Pertinent positives and pertinent negatives as noted in HPI. All other systems were reviewed and are negative Vital Signs Vital Signs Vital Signs: 03/19/23 23:51 03/20/23 02:30 Temperature 97.4 F L Temperature Source Temporal Pulse Rate 128 H Respiratory Rate 15 16 Blood Pressure 161/129 H Blood Pressure Mean 139 Pulse Ox 96 Oxygen Delivery Method Room Air Room Air Weight Weight: 85.729 kg Body Mass Index (BMI) 24.9 Physical Exam Narrative Physical exam: General: Well-nourished, well-developed. Head: Normocephalic, atraumatic, no tenderness Eyes: Vision is grossly intact. EOMI ENT, no trauma, moist mucous membranes, no rhinorrhea Neck: Nontender, No thyromegaly. CVS: Regular rate and rhythm. S1-S2 present. No murmur, gallop or rub. Respiratory : clear to auscultation bilaterally, chest wall nontender Abdomen: Soft, nontender, nondistended, normal bowel sounds, no masses : Deferred Back: Nontender, no CVA tenderness, no midline spinal tenderness, deformities, step-offs Extremities: Nontender full range of motion, no trauma Skin: Normal color, no trauma, abrasions Neuro: Alert, oriented, cranial nerves II through XII grossly intact. Psychiatry: Normal mood. Normal affect. Not depressed. Not anxious. Results Lab / Micro Data 03/20/23 01:20 Labs: Laboratory Results - last 24 hr 03/20/23 01:20: Sodium 142, Potassium 3.9, Chloride 105, Carbon Dioxide 27.0, Anion Gap 10, BUN 8, Creatinine 1.05, Estim Creat Clear Calc 120.48, Est GFR (MDRD) Af Amer 109, Est GFR (MDRD) Non-Af 90, BUN/Creatinine Ratio 7.6 L, Glucose 372 H, Calcium 9.6, Total Bilirubin 0.20, AST 38 H, ALT 69 H, Alkaline Phosphatase 83, Total Protein 7.7, Albumin 3.9, Globulin 3.8, Albumin/Globulin Ratio 1.0, Ethyl Alcohol 353.0 H* Assessment & Plan Assessment/Plan (1) Desire for detoxification: (2) ETOH abuse: (3) Diabetes mellitus type 1: QUALIFIERS: Diabetes mellitus complication status: with hypoglycemia Diabetes mellitus complication detail: without coma Qualified Code(s): E10.649 - Type 1 diabetes mellitus with hypoglycemia without coma (4) Presence of insulin pump: PLAN: Plan Alcohol dependence and desire for detoxification Emergency department labs reviewed showed ethanol level of 353 on presentation. Patient be started on phenobarbital and other adjunctive medications: Gabapentinas needed; dicyclomine as needed; Vistaril as needed; Imodium as needed; trazodone as needed; Zofran as needed; scheduled thiamine; and schedule folic acid. Monitor CIWA score Diabetes mellitus With history of DKA. Blood glucose was not within goal. Home insulin pump and checks continued. Hypertension Blood pressure is not within goal Home blood pressure medication continued. Trend blood pressure and adjust blood pressure medications. Elevated liver enzymes Chronic Trend CMP DVT prophylaxis Low risk Encourage to ambulate Time spent in the patient's overall evaluation,decision-making process, review of diagnostic data, adjustment of management, discussion with other providers, nursing and ancillary staff involved in patient's care documentation, 45 minutes. Charges/Coding Visit Charges Inpatient E&M: 74346 Init Hosp L2 03/20/23 0740 <Electronically signed by William Bowers MD> Cosigner Signature (if applicable): CC: Dr. William Bowers MD; DEXTER DANIEL~ Signed [facility] Work Phone: 1(646) 582-688610-26-2023 Discharge summary Author Dafne Cornell [facility] March 20, 2023 5:29am Note Date/Time March 20, 2023 3 :04am [facility] Medical Records Department [address] [place] [id number] Emergency Department Summary 03/20/23 MR#: [id number] Acct: [id number] Name: JORGE HOLLIS Rep #:[id number] : 1995 27 From: Dafne Cornell MD PCP: DEXTER DANIEL Status:ADM IN Location: [facility] [id number] HPI History of Present Illness Chief Complaint: Substance Abuse Detail of Chief Complaint: Request for alcohol detox Informant: patient Narrative Narrative: Patient presents requesting help with alcohol detox. He states has been drinking for quite some time and has been through a detox program previously. He states he will drink anything he can get his hands on. His last drink was at8 PM last evening. He denies having withdrawal symptoms at this time. He does report having 1 seizure in the past that was attributed to alcohol withdrawal. [facility] Medical History Alcohol abuse Alcohol dependence Anxiety Depression Diabetes mellitus type 1 High cholesterol History of diabetes mellitus HTN (hypertension) Presence of insulin pump Vitamin D deficiency Home Medications Insulin Aspart [Novolog] See Protocol subcut UD dm 12/29/14 [History Last Taken 09/25/21] atorvastatin 10 mg tablet 10 mg PO QHS cholesterol lowering 09/25/21 [History Last Taken 09/21/21] metoprolol succinate 25 mg capsule sprinkle, ext. release 24 hr 25 mg PO DAILY blood pressure 09/25/21 [History Last Taken 09/23/21] Dexcom G6 Documentation Manager (blood-glucose meter,continuous) #1 ea 11/14/21 [Rx Last Taken Unknown] Dexcom G6 Sensor (blood-glucose sensor) #9 ea 11/14/21 [Rx Last Taken Unknown] Dexcom G6 Transmitter (blood-glucose transmitter) #1 ea 11/14/21 [Rx Last Taken Unknown] cholecalciferol (vitamin D3) 1,250 mcg (50,000 unit) capsule 1,250 mcg PO QWEEK #24 caps 11/14/21 [Rx Last Taken Unknown] insulin pump cart,automated,BT (Omnipod 5 G6 Pods (Gen 5) subcutaneous cartridge) #30 ea 11/14/21 [Rx Last Taken Unknown] insulin pump cartridge,automated dose,BT with controller subcutaneous (Omnipod 5G6 Intro Kit (Gen 5) subcutaneous cartridge with controller) #1 ea 11/14/21 [Rx Last Taken Unknown] Novolog U-100 Insulin aspart 100 unit/mL subcutaneous solution (insulin aspart U-100) 100 unit continuous subcutaneous infusion .continuous #90 mL 05/29/22 [Rx Last Taken Unknown] bupropion HCl 100 mg tablet 100 mg PO BID depression 06/17/22 [History Last Taken Unknown] lorazepam 1 mg tablet 1 mg PO QHS anxiety 06/17/22 [History Last Taken Unknown] ramipril 10 mg capsule 10 mg PO BID blood pressures 06/17/22 [History Last Taken Unknown] Allergy/AdvReac Type Severity Reaction Status Date / Time No Known Allergies Allergy Verified 03/19/23 23:54 Family History Mother Hypertension Surgical History No history of previous surgery Social History household members: none housing: apartment Smoking Status: Never smoker alcohol intake: current alcohol intake frequency: 3 or more drinks per day Alcohol type: beer and hard liquor substance use type: does not use ROS ROS ED Constitutional Constitutional ED: Denies chills or fever(s) Eyes Eyes: Denies discharge from eye(s) ENT ENT ED: Denies discharge from eye(s), rhinorrhea or sore throat Cardiovascular Cardiovascular: Denies chest pain or palpitations Respiratory/Chest Respiratory/Chest: Denies cough or dyspnea Gastrointestinal Gastrointestinal: Denies abdominal pain, nausea or vomiting Genitourinary Genitourinary ED: Denies dysuria Musculoskeletal Musculoskeletal: Denies back pain or extremity pain Integumentary Denies Abrasions or rash Neurologic Neurologic: Denies headache(s) or weakness Psychiatric Psychiatric: Denies anxiety or depression Allergic/Immunologic Allergic/Immunologic ED: Denies lip swelling or urticaria EXAM Physical Exam Const Vital Signs: 03/19/23 23:51 03/20/23 02:30 Temperature 97.4 F L Temperature Source Temporal Pulse Rate 128 H Respiratory Rate 15 16 Blood Pressure 161/129 H Blood Pressure Mean 139 Pulse Ox 96 Oxygen Delivery Method Room Air Room Air Positive well nourished and well developed General Appearance ED: well developed HEENT Reports moist mucous membranes Eyes EOMs intact bilaterally Neck no lymphadenopathy Chest Wall inspection of chest normal and palpation of chest normal Resp normal respiratory effort and clear to auscultation bilaterally Cardio regular rate and regular rhythm GI soft to palpation Neuro oriented x3 and no sensory deficits noted Sensorium / Orientation: alert Psych mental status grossly normal MDM MDM MDM Narrative Medical decision making narrative: Lab work for ED addiction medicine obtained. Patient agrees to the detox program. Lab Data Attestation: I reviewed the patient's lab results. Labs: Laboratory Results - last 24 hr 03/20/23 01:20 Sodium 142 Potassium 3.9 Chloride 105 Carbon Dioxide 27.0 Anion Gap 10 BUN 8 Creatinine 1.05 Estim Creat Clear Calc 120.48 Est GFR (MDRD) Af Amer 109 Est GFR (MDRD) Non-Af 90 BUN/Creatinine Ratio 7.6 L Glucose 372 H Calcium 9.6 Total Bilirubin 0.20 AST 38 H ALT 69 H Alkaline Phosphatase 83 Total Protein 7.7 Albumin 3.9 Globulin 3.8 Albumin/Globulin Ratio 1.0 Ethyl Alcohol 353.0 H* Treatment and Re-Evaluation Narrative: Chemistry studies are unremarkable with normal creatinine. His glucose is 372. LFTs significant for an AST of 38 and an ALT of 69. His EtOH is 353. Urine toxscreen has been ordered but patient has not yet provided a sample. He denies any drug use other than alcohol. I will speak with hospitalist regarding admission. Discharge Plan Triage Chief Complaint: Substance Abuse ED Provider: Dafne Cornell Dx/Rx/DC Orders Clinical Impression: Desire for detoxification, ETOH abuse Prescriptions: No Action (DME) Omnipod 5 G6 Intro Kit (Gen 5) Cartridge See Rx Instructions .Route Qty: 1 0RF Rx Instructions: As directed (DME) Omnipod 5 G6 Pods (Gen 5) Cartridge See Rx Instructions .Route Qty: 30 1RF Rx Instructions: 1 pod q 72 hours (DME) Dexcom G6 Documentation Manager Misc See Rx Instructions .Route Qty: 1 0RF Rx Instructions: As directed (DME) Dexcom G6 Sensor Device See Rx Instructions .Route Qty: 9 1RF Rx Instructions: 1 sensor q 10 days (DME) Dexcom G6 Transmitter Device See Rx Instructions .Route Qty: 1 1RF Rx Instructions: 1 transmitter q 90 days cholecalciferol (vitamin D3) 1,250 mcg (50,000 unit) capsule 1,250 mcg PO QWEEK Qty: 24 0RF insulin aspart U-100 [Novolog U-100 Insulin aspart] 100 unit/mL solution 100 unit continuous subcutaneous infusion .continuous Qty: 90 1RF Insulin Aspart [Novolog] 100 UNIT/ML Ml See Protocol subcut UD Protocol: 6. Sliding Scale Insulin Custom Condition: mg/dl range Dose/Route: Number of Units Protocol Text: Custom Sliding Scale Patient Comments: INSULIN PUMP- VARYING HOURLY BASAL RATE from 2361-6868 1.3 units 0946-4353 1.35 units 1229-4606 1.4 units Rx Instructions: PT HAS INSULIN PUMP atorvastatin 10 mg Tablet 10 mg PO QHS metoprolol succinate 25 mg Capsule,Sprinkle,Er 24hr 25 mg PO DAILY ramipril 10 mg capsule 10 mg PO BID bupropion HCl 100 mg tablet 100 mg PO BID Patient Comments: TAKE ONE TABLET BY MOUTH TWICE A DAY lorazepam 1 mg tablet 1 mg PO QHS Primary Care Provider: DEXTER DANIEL Referrals: DEXTER DANIEL [Other] Disposition Disposition: Acute Care Hospital [facility] What to do if you have Problems For any increased pain, shortness of breath, bleeding, nausea or vomiting, chest pain, or any unexpected problems, contact your Primary Care Provider. Call [facility] ([phone]) or report to the closest Emergency Room. Call 911 if necessary. 03/20/23528 <Electronically signed by Dafne Cornell MD> Cosigner Signature (if applicable): CC: DEXTER DANIEL ~ Signed [facility] Work Phone: [phone]) [phone] Evaluation + Plan note* Assessment & Plan Note - Dexter Daniel MD - 10/22/2022 3:17 PM EDTAssociated Problem(s): Current mild episode of major depressive disorder without prior episode ([facility]) Depression is chronic and quite common and notorious mental health disorder and it is quite common and widespread, there are several therapeutics available for depression now a days. It is consideredas chemical imbalance disorder and with medications , it can be adjusted. There are side effects from SSRI and SNRIs but on chcf, they are well tolerated. Please do not feel awkward or shy to con tact us if feel tired, sleepy, lack of energy or aloof/ alone. Untreated depression can bring serious consequences including suicidal ideations, mental health counselling is available if need arises.Usually treatment of depression is long lasting therapy with periodic evaluations and follow ups. Pt with depression no longer have to feel frustrated, helpless or isolated.Detailed discussion was carried out. [facility] Work Phone: [phone]) [phone] Miscellaneous Notes* Assessment & Plan Note - Dexter Daniel MD - 10/22/2022 3:17 PM EDTAssociated Problem(s): Current mild episode of major depressive disorder without prior episode (CMS/ HCC) Depression is chronic and quite common and notorious mental health disorder and it is quite common and widespread, there are several therapeutics available for depression now a days. It is consideredas chemical imbalance disorder and with medications , it can be adjusted. There are side effects from SSRI and SNRIs but on chcf, they are well tolerated. Please do not feel awkward or shy to con tact us if feel tired, sleepy, lack of energy or aloof/ alone. Untreated depression can bring serious consequences including suicidal ideations, mental health counselling is available if need arises.Usually treatment of depression is long lasting therapy with periodic evaluations and follow ups. Pt with depression no longer have to feel frustrated, helpless or isolated.Detailed discussion was carried out. 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 Restricting salt consumption and staying physically fit with regular exercise regimen is the only way to keep our vasculature less tonic. Studies have shown that keeping ideal body wt, exercise routine about 140 to 150 minutes a week, eating variety of plant based diet and drinking plentiful water are quite helpful. Monitor BP twice or once a week at home and bring log to be reviewed by me. Uncontrolled BP has chcf consequences including heart failure, myocardial infarction, accelerated atherosclerosis and kidney dysfunction. Therapy reviewed and explained. * Assessment & Plan Note - Dexter Daniel MD - 10/22/2022 3:16 PM EDT Associated Problem(s): 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) Diabetes is chronic disease, it does not get cured but it can be controlled, in modern medicine there are variety of measures taken to control DM. Usually we want to preserve beta cell functions. Please understand the disease and how our life style can affect control of glycemia. Diabetes leads to macro and microvascular complications and they could be devastating. It is important to have annual eye check and frequent foot inspection and foot inspection. Kidney dysfunction including dialysis, foot amputations, neuropathy, foot ulcers and accelerated atherosclerotic vascular disease are known complications of uncontrolled DM, pt was educated and explained. 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 Restricting salt consumption and staying physically fit with regular exercise regimen is the only way to keep our vasculature less tonic. Studies have shown that keeping ideal body wt, exercise routine about 140 to 150 minutes a week, eating variety of plant based diet and drinking plentiful water are quite helpful. Monitor BP twice or once a week at home and bring log to be reviewed by me. Uncontrolled BP has chcf consequences including heart failure, myocardial infarction, accelerated atherosclerosis and kidney dysfunction. Therapy reviewed and explained. [facility] Work Phone: [phone] Evaluation + Plan note* Assessment & Plan Note - Dexter Daniel MD - 10/22/2022 3:16 PM EDTAssociated Problem(s): 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) Diabetes is chronic disease, it does not get cured but it can be controlled, in modern medicine there are variety of measures taken to control DM. Usually we want to preserve beta cell functions. Please understand the disease and how our life style can affect control of glycemia. Diabetes leads to macro and microvascular complications and they could be devastating. It is important to have annual eye check and frequent foot inspection and foot inspection. Kidney dysfunction including dialysis, foot amputations, neuropathy, foot ulcers and accelerated atherosclerotic vascular disease are known complications of uncontrolled DM, pt was educated and explained. [facility] Work Phone: [phone] History of Present illness Narrative* Dexter Daniel MD - 10/22/2022 1:00 PM EDT Subjective Patient ID: Jorge Hollis is a 27 y.o. male who presents for Annual Exam. Assessment/Plan Problem List Items Addressed This Visit Nervous 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) Diabetes is chronic disease, it does not get cured but it can be controlled, in modern medicine there are variety of measures taken to control DM. Usually we want to preserve beta cell functions. Please understand the disease and how our life style can affect control of glycemia. Diabetes leads to macro and microvascular complications and they could be devastating. It is important to have annual eye check and frequent foot inspection and foot inspection. Kidney dysfunction including dialysis, foot amputations, neuropathy, foot ulcers and accelerated atherosclerotic vascular disease are known complications of uncontrolled DM, pt was educated and explained. Relevant Orders Albumin , Urine Random CBC and Auto Differential Comprehensive Metabolic Panel Hemoglobin A1C Lipid Panel Circulatory Hypertension Patients BP readings reviewed and addressed, as we age our arteries turn stiffer and less elastic. Restricting salt consumption and staying physically fit with regular exercise regimen is the only way to keep our vasculature less tonic. Studies have shown that keeping ideal body wt, exercise routine about 140 to 150 minutes a week, eating variety of plant based diet and drinking plentiful water are quite helpful. Monitor BP twice or once a week at home and bring log to be reviewed by me. Uncontrolled BP has chcf consequences including heart failure, myocardial infarction, accelerated atherosclerosis and kidney dysfunction. Therapy reviewed and explained. 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 It is consideredas chemical imbalance disorder and with medications , it can be adjusted. There are side effects from SSRI and SNRIs but on chcf, they are well tolerated. Please do not feel awkward or shy to con tact us if feel tired, sleepy, lack of energy or aloof/ alone. Untreated depression can bring serious consequences including suicidal ideations, mental health counselling is available if need arises.Usually treatment of depression is long lasting therapy with periodic evaluations and follow ups. Pt with depression no longer have to feel frustrated, helpless or isolated.Detailed discussion was carried out. Relevant Medications vortioxetine (Trintellix) 10 mg tablet tablet HPI 27-year-old patient who had history of diabetes hypertension hyperlipidemia proteinuria anxiety depression insomnia complaining arthralgia myalgia fatigue tired weakness onset gradual duration few months progressed slowly aggravating factor polypharmacy underlying sundown phenomena chemical disorder Negative for hypoglycemia hypotension Negative for COVID Negative for suicide Negative for fall No Known Allergies Current Outpatient Medications Medication Sig Dispense Refill atorvastatin (Lipitor) 10 mg tablet Take 1 tablet (10 mg) by mouth once daily. blood sugar diagnostic strip check sugars 3 times per day (on insulin pump) buPROPion (Wellbutrin) 100 mg tablet Take 1 tablet (100 mg) by mouth 2 times a day. glucagon 1 mg injection Inject 1 mg into the shoulder, thigh, or buttocks. INSULIN ASPART U-100 SUBQ Used for his Omnipod insulin pump use up to 95 units daily as directed insulin detemir (Levemir Flextouch) 100 unit/mL (3 mL) pen Use as Directed for pump failure LORazepam (Ativan) 1 mg tablet TAKE 1 TABLET DAILY PM metoprolol succinate XL (Toprol-XL) 50 mg 24 hr tablet Take 1 tablet (50 mg) by mouth once daily. mirtazapine (Remeron) 30 mg tablet Take 1 tablet (30 mg) by mouth once daily at bedtime. ramipril (Altace) 10 mg capsule Take 1 capsule (10 mg) by mouth once daily. 90 capsule 3 vortioxetine (Trintellix) 10 mg tablet tablet Take 1 tablet (10 mg) by mouth once daily. 90 tablet 0 No current facility-administered medications for this visit. Objective Visit Vitals BP (!) 138/93 (BP Location: Right arm, Patient Position: Sitting, BP Cuff Size: Adult) Pulse 96 Temp 36.3 C (97.3 F) Ht 1.854 m (6' 1) Wt 85.7 kg (189 lb) SpO2 96% BMI 24.94 kg/m Smoking Status Never BSA 2.1 m Physical Exam Constitutional: General: He is not in acute distress. Appearance: Normal appearance. Obesity HENT: Head: Normocephalic and atraumatic. Nose: Nose normal. Eyes: Extraocular Movements: Extraocular movements intact. Conjunctiva/sclera: Conjunctivae normal. Cardiovascular: Rate and Rhythm: Normal rate and regular rhythm. Pulmonary: Diabetic neuropathy Effort: Pulmonary effort is normal. Breath sounds: Normal breath sounds. Skin: General: Skin is warm. Neurological: Mental Status: He is alert and oriented to person, place, and time. Diabetic neuropathy Psychiatric: Mood and Affect: Mood normal. Behavior: Behavior normal. Anxiety with depression Immunization History Administered Date(s) Administered DTP 1996, 1996, 1996, 10/31/1997, 03/05/2002 Hep B, Adolescent or Pediatric 1996, 1996, 03/24/1997 Hib (HbOC) 1996, 1996, 1996, 10/31/1997 IPV 1996, 1996, 10/31/1997, 03/05/2002 Influenza, Unspecified 02/27/2009, 05/01/2011 Influenza, injectable, quadrivalent 03/30/2013 Influenza, injectable, quadrivalent, preservative free 03/08/2014, 05/22/2015 Influenza, seasonal, injectable 03/30/2013 MMR 10/31/1997, 03/05/2002 Meningococcal MCV4, Unspecified 02/27/2009 Pfizer Purple Cap SARS-CoV-2 07/20/2020, 08/10/2020 Pneumococcal Polysaccharide PPSV23 02/27/2009 Tdap 02/27/2009 Review of Systems No visits with results within 4 Month(s) from this visit. Latest known visit with results is: [facility] Encounter on 07/26/2021 Component Date Value Ref Range Status Glucose 07/26/2021 243 (H) 74 - 99 mg/dL Final Sodium 07/26/2021 141 136 - 145 mmol/L Final Potassium 07/26/2021 4.3 3.5 - 5.3 mmol/L Final Chloride 07/26/2021 99 98 - 107 mmol/L Final Bicarbonate 07/26/2021 31 21 - 32 mmol/L Final Anion Gap 07/26/2021 15 10 - 20 mmol/L Final Urea Nitrogen 07/26/2021 15 6 - 23 mg/dL Final Creatinine 07/26/2021 0.89 0.50 - 1.30 mg/dL Final GFR MALE 07/26/2021 >90 >90 mL/min/1.73m2 Final Calcium 07/26/2021 10.6 8.6 - 10.6 mg/dL Final Albumin 07/26/2021 4.8 3.4 - 5.0 g/dL Final Alkaline Phosphatase 07/26/2021 121 (H) 33 - 120 U/L Final Total Protein 07/26/2021 7.7 6.4 - 8.2 g/dL Final AST 07/26/2021 21 9 - 39 U/L Final Total Bilirubin 07/26/2021 0.5 0.0 - 1.2 mg/dL Final ALT (SGPT) 07/26/2021 34 10 - 52 U/L Final WBC 07/26/2021 8.6 4.4 - 11.3 x10E9/L Final nRBC 07/26/2021 0.0 0.0 - 0.0 /100 WBC Final RBC 07/26/2021 5.61 4.50 - 5.90 x10E12/L Final Hemoglobin 07/26/2021 17.2 13.5 - 17.5 g/dL Final Hematocrit 07/26/2021 51.4 41.0 - 52.0 % Final MCV 07/26/2021 92 80 - 100 fL Final MCHC 07/26/2021 33.5 32.0 - 36.0 g/dL Final Platelets 07/26/2021 289 150 - 450 x10E9/L Final RDW 07/26/2021 12.3 11.5 - 14.5 % Final Neutrophils % 07/26/2021 62.8 40.0 - 80.0 % Final Immature Granulocytes %, Automated 07/26/2021 0.7 0.0 - 0.9 % Final Lymphocytes % 07/26/2021 23.1 13.0 - 44.0 % Final Monocytes % 07/26/2021 10.6 2.0 - 10.0 % Final Eosinophils % 07/26/2021 2.0 0.0 - 6.0 % Final Basophils % 07/26/2021 0.8 0.0 - 2.0 % Final Neutrophils Absolute 07/26/2021 5.41 1.20 - 7.70 x10E9/L Final Lymphocytes Absolute 07/26/2021 1.99 1.20 - 4.80 x10E9/L Final Monocytes Absolute 07/26/2021 0.91 0.10 - 1.00 x10E9/L Final Eosinophils Absolute 07/26/2021 0.17 0.00 - 0.70 x10E9/L Final Basophils Absolute 07/26/2021 0.07 0.00 - 0.10 x10E9/L Final TSH 07/26/2021 2.54 0.44 - 3.98 mIU/L Final Vitamin D, 25-Hydroxy 07/26/2021 11 (A) ng/mL Final Hemoglobin A1C 07/26/2021 9.8 (A) % Final Estimated Average Glucose 07/26/2021 235 MG/DL Final ALBUMIN (MG/L) IN URINE 07/26/2021 263.0 Not Established mg/L Final Albumin/Creatine Ratio 07/26/2021 263.5 (H) 0.0 - 30.0 ug/mg senior 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 No results found. Family History Problem Relation Name Age of Onset Thyroid disease Mother Alcohol abuse Father Clotting disorder Father Social History Socioeconomic History Marital status: Single Spouse name: None Number of children: None Years of education: None Highest education level: None Occupational History None Tobacco Use Smoking status: Never Smokeless tobacco: Never Vaping Use Vaping status: None Substance and Sexual Activity Alcohol use: Not Currently Alcohol/week: 0.0 - 40.0 standard drinks of alcohol Drug use: Never Sexual activity: None Other Topics Concern None Social History Narrative None Social Determinants of Health Financial Resource Strain: Not on file Food Insecurity: Not on file Transportation Needs: Not on file Physical Activity: Not on file Stress: Not on file Social Connections: Not on file Intimate Partner Violence: Not on file Housing Stability: Not on file Past Medical History: Diagnosis Date Other conditions influencing health status No history of previous surgery Personal history of other diseases of the nervous system and sense organs 06/11/2021 History of chronic fatigue syndrome Past Surgical History: Procedure Laterality Date NO PAST SURGERIES Charting was completed using voice recognition technology and may include unintended errors. documented in this [facility] Work Phone: 1(630) 568-975502-21-[address] Hopper [facility] July 15, 2022 11:58pm Note Date/Time July 15, 2022 9:49pm [facility] Medical Records Department [address] [place] [address] Emergency Department Summary 07/15/22 MR#: [id number] Acct: [id number] Name: JORGE HOLLIS Rep #:[id number] : 1995 27 From: Jed Hopper MD PCP: NOT,DEFINED Status:ADM IN Location: ICU CVICU20 4-1 HPI History of Present Illness Chief Complaint: Hyperglycemia Informant: patient Onset/Context/Timing Onset: Days Context: Gradual Onset Timing: Intermittent Current Severity: Mild Maximum Severity: Mild Narrative Narrative: 27-year-old male history of diabetes, alcohol abuse for which he underwent recent admission for detox, hypertension and anxiety. Says that he has a automatic insulin pump. However he has been out of his insulin pods since Friday. His sugars have been going up and down High C been in the mid 300s. Hehas had some nausea and vomiting. No diarrhea. No fever. He wants to make sure he is not in DKA. Prior similar symptoms: Yes Recent Illness/Hospitalization: Yes PFSH PFSH Medical History Alcohol abuse Alcohol dependence Anxiety Depression Diabetes mellitus type 1 High cholesterol HTN (hypertension) Presence of insulin pump Vitamin D deficiency Home Medications Insulin Aspart [Novolog] See Protocol subcut UD dm 12/29/14 [History Last Taken 09/25/21] atorvastatin 10 mg tablet 10 mg PO QHS cholesterol lowering 09/25/21 [History Last Taken 09/21/21] metoprolol succinate 25 mg capsule sprinkle, ext. release 24 hr 25 mg PO DAILY blood pressure 09/25/21 [History Last Taken 09/23/21] Dexcom G6 Documentation Manager (blood-glucose meter,continuous) #1 ea 11/14/21 [Rx Last Taken Unknown] Dexcom G6 Sensor (blood-glucose sensor) #9 ea 11/14/21 [Rx Last Taken Unknown] Dexcom G6 Transmitter (blood-glucose transmitter) #1 ea 11/14/21 [Rx Last Taken Unknown] cholecalciferol (vitamin D3) 1,250 mcg (50,000 unit) capsule 1,250 mcg PO QWEEK #24 caps 11/14/21 [Rx Last Taken Unknown] insulin pump cart,automated,BT (Omnipod 5 G6 Pods (Gen 5) subcutaneous cartridge) #30 ea 11/14/21 [Rx Last Taken Unknown] insulin pump cartridge,automated dose,BT with controller subcutaneous (Omnipod 5G6 Intro Kit (Gen 5) subcutaneous cartridge with controller) #1 ea 11/14/21 [Rx Last Taken Unknown] Novolog U-100 Insulin aspart 100 unit/mL subcutaneous solution (insulin aspart U-100) 100 unit continuous subcutaneous infusion .continuous #90 mL 05/29/22 [Rx Last Taken Unknown] bupropion HCl 100 mg tablet 100 mg PO BID depression 06/17/22 [History Last Taken Unknown] lorazepam 1 mg tablet 1 mg PO QHS anxiety 06/17/22 [History Last Taken Unknown] ramipril 10 mg capsule 10 mg PO BID blood pressures 06/17/22 [History Last Taken Unknown] Allergy/AdvReac Type Severity Reaction Status Date / Time No Known Allergies Allergy Verified 07/03/22 15:42 Family History Mother Hypertension Surgical History No history of previous surgery Social History household members: none housing: apartment Smoking Status: Never smoker alcohol intake: current alcohol intake frequency: 3 or more drinks per day Alcohol type: beer and hard liquor substance use type: does not use ROS ROS ED ROS Narrative Nausea and vomiting intermittently. Review of Systems ROS Unobtainable: Denies due to encephalopathy Constitutional Constitutional ED: Denies chills or fever(s) Eyes Eyes: Denies blurry vision ENT ENT ED: Denies ear pain Cardiovascular Cardiovascular: Denies chest pain Respiratory/Chest Respiratory/Chest: Denies cough or dyspnea Gastrointestinal Gastrointestinal: Reports nausea and vomiting; Denies abdominal pain, constipation, diarrhea or melena Genitourinary Genitourinary ED: Denies dysuria or hematuria Musculoskeletal Musculoskeletal: Denies arthralgias Integumentary Denies abscess Neurologic Neurologic: Denies headache(s) Psychiatric Psychiatric: Denies anxiety Endocrine Endocrinology: Denies cold intolerance Hematologic/Lymphatic Hematologic/Lymphatic: Reports none Allergic/Immunologic Allergic/Immunologic ED: Denies mouth swelling, tongue swelling or urticaria EXAM Physical Exam Narrative Exam Narrative: 27-year-old male no acute distress. Vital signs his blood pressure is elevated 170s and 159 OB recheck. Heart rate 116. Pulse ox 97% on room air no hypoxia. He is afebrile. He does not look septic or toxic. H EENT exam unremarkable. Neck nontender no JVD. Lungs clear to auscultation bilaterally. Heart tachycardic rate about 110 no murmur. Abdomen soft nontender normal bowel sounds no peritoneal signs. Moving all 4 extremities. Nontender no edema. Back nontender. Skin unremarkable. Neurologically is awake alert no focal motor deficits. Const Vital Signs: 07/15/22 21:19 Temperature 96.7 F L Temperature Source Temporal Pulse Rate 116 H Respiratory Rate 16 Blood Pressure 177/159 H Blood Pressure Mean 165 Pulse Ox 97 Oxygen Delivery Method Room Air Positive well nourished and well developed; Negative for obese, cachectic, contractures or unkempt General Appearance ED: well developed and NAD; Negative for unkempt, cachectic, contractures, cyanotic, diaphoretic or pallor Nutritional Appearance: Negative for cachectic or obese HEENT Reports moist mucous membranes; Denies dry mucous membranes Negative for trauma or tenderness Mouth ED: No dry mucous membranes Mouth: No dry mucous membranes Eyes PERRL and EOMs intact bilaterally General Eye ED: Negative for pale conjunctiva or scleral icterus Neck no lymphadenopathy, supple and no JVD General: Negative for tenderness Chest Wall inspection of chest normal and palpation of chest normal Chest: Negative for other Resp normal respiratory effort and clear to auscultation bilaterally Effort and Inspection: Negative for retractions Auscultation: Negative for rales, rhonchi, wheezes or diminished lung sounds Cardio regular rhythm, S1 normal heart sound, S2 normal heart sound and no murmurs; Negative for regular rate Rate: tachycardic GI normal to inspection, nondistended, normoactive bowel sounds, non-tender, non-distended and no masses; Negative for hepatosplenomegaly Inspection: Negative for abdominal distention Auscultation: normoactive bowel sounds Palpation: soft; Negative for tender or guarding Back/Spine no CVA tenderness General Back: Negative for CVA tenderness Cervical Spine: Negative for cervical spine tenderness Thoracic Spine / Upper Back: Negative for thoracic spinal tenderness Lumbar Spine / Lower Back: Negative for lumbar spinal tenderness Extremity normal to inspection General Extremety ED: Negative for edema or tenderness General Extremity: Negative for edema Neuro oriented x3 and CN's II-XII intact bilaterally Sensorium / Orientation: alert; Negative for orientation impaired, lethargic or stuporous Motor Exam: strength 5/5 throughout Psych mental status grossly normal Appearance: Negative for unkempt Attitude: agitated Mood & Affect: anxious; Negative for depressed or tearful Skin no rashes or lesions noted and no wounds General Skin Exam: Negative for jaundice or pallor Rashes: No rashes noted Trauma: Negative for abrasion Wounds: Negative for wounds noted MDM MDM MDM Narrative Medical decision making narrative: 27-year-old diabetic male out of his insulin pods for his insulin pump. Concernhe may have gone back into DKA. Nausea and vomiting. Blood sugars between 2 and mid 300s. Will be treated with IV fluids. Screening labs and serum ketonesto be obtained. Zofran for nausea. Patient on repeat exam no significant change. Patient will be given a second liter normal saline and started on insulin drip. Patient is in DKA and I will call the hospitalist for admission. Lab Data Attestation: I reviewed the patient's lab results. Lab results narrative: This is awake 11.9. H&H is 16.6 and 48. Platelets 163. Electrolytes show sodium 133. Anion gap of 27. BUN of 20 creatinine 1.59. Glucose is only 285. Serum ketones are moderate. This is consistent with DKA. Labs: Laboratory Results - last 24 hr 07/15/22 07/15/22 07/15/22 22:05 22:05 22:05 WBC 11.9 H RBC 5.34 Hgb 16.6 H Hct 48.3 MCV 90.4 MCH 31.1 MCHC 34.4 RDW Std Deviation 42.1 RDW Coeff of Last 12.8 Plt Count 163 MPV 9.8 Immature Gran % (Auto) 0.400 Neut % (Auto) 77.3 H Lymph % (Auto) 8.3 L [place] % (Auto) 12.8 H Eos % (Auto) 0.1 Baso % (Auto) 1.1 H Absolute Neuts (auto) 9.2 H Absolute Lymphs (auto) 0.99 Nucleated RBC % 0 Differential Comment SCANNED Diff Path Review May foll Sodium 133 L Potassium 3.8 Chloride 96 L Carbon Dioxide 10.0 L Anion Gap 27 H BUN 20 H Creatinine 1.59 H Estim Creat Clear Calc 79.56 Est GFR (MDRD) Af Amer 68 Est GFR (MDRD) Non-Af 56 L BUN/Creatinine Ratio 12.6 Glucose 285 H Calcium 9.8 Acetone Level MODERATE H Critical Care Time Critical Care Time: Yes Critical care time (excluding procedures): 30-74 minutes, Including time spent:,Discussing w/Patient &/or Family/Epic [facility] Specialist, Discussing w/Consultants, ArrangingAdmission or Transfer, Performing Direct Patient Care at Bedside and - (35 min) Discharge Plan Dx/Rx/DC Orders Clinical Impression: Diabetic keto-acidosis, History of diabetes mellitus, High anion gap metabolic acidosis, Acute kidney injury Disposition Disposition: Acute Care Hospital [facility] What to do if you have Problems For any increased pain, shortness of breath, bleeding, nausea or vomiting, chestpain, or any unexpected problems, contact your Primary Care Provider. Call [facility] ([phone]) or report to the closest Emergency Room. Call 911 if necessary. 07/15/22 2440 <Electronically signed by Jed Hopper MD> Cosigner Signature (if applicable): CC: DEFINED NOT ~ Signed [facility] Work Phone: 1(779) 206-315402-21-2023 History and physical note Author Dr. Cedillo [facility] July 15, 2022 11:43pm Note Date/Time July 15, 2022 11:43pm [facility] Medical Records Department [address] [place] [address] H&P Exam - Hospitalist 07/15/22 [id number] MR#: [id number] Acct: [id number] Name: JORGE HOLLIS Rep #:[id number] : 1995 27 From: Teresa Cedillo MD PCP: NOT,DEFINED Status:ADM IN Location: ICU CVICU20 4-1 HPI - General General Date of Admission: 07/15/22 Date of Service: 07/15/22 HPI Narrative JORGE HOLLIS, is a 27-year-old male with history of type 1 diabetes on an insulin pump, hypertension, alcohol abuse recently here for detox, who [facility] 07[facility]22 feeling as though he was going into DKA. He ran out of pods for his glucometer on Friday and glucoses have been in 2-3 100s. Has had some nausea and vomiting. In ED he was found to have a gap of 27and a bicarb of 10 with a glucose of 285 and he had moderate acetone as well as an KATI. He was bolused with fluid and started on insulin drip and hospitalist consulted for admission. Eval patient with family member at bedside, reportedlyhe had been in his usual health until Friday when he ran out of insulin pods, hepicked up long-acting insulin from [facility] on Friday and was using that and sliding scale but was waxing and waning with feeling unwell and several times thought he may be going into DKA then over the past 24 hours or so he began vomiting and has not been able to tolerate p.o. and had vomited in the double digits and has a somewhat sore throat, had an episode of abdominal pain on the x1 but this resolved and did not return. Denies other complaints at this time. Reports he has not drank in over a week. [facility] Medical History Alcohol abuse Alcohol dependence Anxiety Depression Diabetes mellitus type 1 High cholesterol HTN (hypertension) Presence of insulin pump Vitamin D deficiency Home Medications Insulin Aspart [Novolog] See Protocol subcut UD dm 12/29/14 [History Last Taken 09/25/21] atorvastatin 10 mg tablet 10 mg PO QHS cholesterol lowering 09/25/21 [History Last Taken 09/21/21] metoprolol succinate 25 mg capsule sprinkle, ext. release 24 hr 25 mg PO DAILY blood pressure 09/25/21 [History Last Taken 09/23/21] Dexcom G6 Documentation Manager (blood-glucose meter,continuous) #1 ea 11/14/21 [Rx Last Taken Unknown] Dexcom G6 Sensor (blood-glucose sensor) #9 ea 11/14/21 [Rx Last Taken Unknown] Dexcom G6 Transmitter (blood-glucose transmitter) #1 ea 11/14/21 [Rx Last Taken Unknown] cholecalciferol (vitamin D3) 1,250 mcg (50,000 unit) capsule 1,250 mcg PO QWEEK #24 caps 11/14/21 [Rx Last Taken Unknown] insulin pump cart,automated,BT (Omnipod 5 G6 Pods (Gen 5) subcutaneous cartridge) #30 ea 11/14/21 [Rx Last Taken Unknown] insulin pump cartridge,automated dose,BT with controller subcutaneous (Omnipod 5G6 Intro Kit (Gen 5) subcutaneous cartridge with controller) #1 ea 11/14/21 [Rx Last Taken Unknown] Novolog U-100 Insulin aspart 100 unit/mL subcutaneous solution (insulin aspart U-100) 100 unit continuous subcutaneous infusion .continuous #90 mL 05/29/22 [Rx Last Taken Unknown] bupropion HCl 100 mg tablet 100 mg PO BID depression 06/17/22 [History Last Taken Unknown] lorazepam 1 mg tablet 1 mg PO QHS anxiety 06/17/22 [History Last Taken Unknown] ramipril 10 mg capsule 10 mg PO BID blood pressures 06/17/22 [History Last Taken Unknown] Allergy/AdvReac Type Severity Reaction Status Date / Time No Known Allergies Allergy Verified 07/03/22 15:42 Family History Mother Hypertension Surgical History No history of previous surgery Social History household members: none housing: apartment Smoking Status: Never smoker alcohol intake: current alcohol intake frequency: 3 or more drinks per day Alcohol type: beer and hard liquor substance use type: does not use ROS ROS Narrative General: Denies fever or chills, generally feels unwell HENT: Denies headache, denies stuffy nose, throat slightly sore from throwing up EYES: Denies changes in vision Resp: Denies cough, denies shortness of breath Cardiac: Denies chest pain GI: Abdominal pain resolved but was having nausea and vomiting but is not vomited since 1 hour prior to ED : Denies changes in urination Extremity: Denies swelling MSK: Some generalized weakness Neuro: Denies any numbness, denies tingling Heme: Denies any bleeding or bruising Skin: Denies rashes Psychiatric: No complaints voiced Vital Signs Vital Signs Vital Signs: 07/15/22 21:19 Temperature 96.7 F L Temperature Source Temporal Pulse Rate 116 H Respiratory Rate 16 Blood Pressure 177/159 H Blood Pressure Mean 165 Pulse Ox 97 Oxygen Delivery Method Room Air Weight Weight: 81.102 kg Body Mass Index (BMI) 23.6 Physical Exam Narrative General: Alert, oriented, no apparent distress HEENT: Atraumatic, normocephalic Eyes: Anicteric, normal conjunctiva, extraocular movements grossly intact Neck: Supple Respiratory: Clear to auscultation bilaterally, normal respiratory effort Cardiovascular: Regular rate and rhythm GI: Soft, nontender, nondistended Extremities: No edema Musculoskeletal: Moving all extremities Neuro: No overt focal neurological deficits Skin: No rashes appreciated Psych: Cooperative Results Lab / Micro Data Result Diagrams: 07/15/22 22:05 07/15/22 22:05 Labs: Laboratory Results - last 24 hr 07/15/22 22:05: WBC 11.9 H, RBC 5.34, Hgb 16.6 H, Hct 48.3, MCV 90.4, MCH 31.1, MCHC 34.4, RDW Std Deviation 42.1, RDW Coeff of Last 12.8, Plt Count 163, MPV 9.8, Immature Gran % (Auto) 0.400, Neut % (Auto) 77.3 H, Lymph % (Auto) 8.3 L, [place] % (Auto) 12.8 H, Eos % (Auto) 0.1, Baso % (Auto) 1.1 H, Absolute Neuts (auto) 9.2 H, Absolute Lymphs (auto) 0.99, Nucleated RBC % 0, Differential Comment SCANNED, Diff Path Review September07/15/22 22:05: Sodium 133 L, Potassium 3.8, Chloride 96 L, Carbon Dioxide 10.0 L, Anion Gap 27 H, BUN 20 H, Creatinine 1.59 H, Estim Creat Clear Calc 79.56, Est GFR (MDRD) Af Amer 68, Est GFR (MDRD) Non-Af 56 L, BUN/Creatinine Ratio 12.6, Glucose 285 H, Calcium 9.8 07/15/22 22:05: Acetone Level MODERATE H Assessment & Plan Assessment/Plan (1) Diabetic keto-acidosis: (2) History of diabetes mellitus: (3) High anion gap metabolic acidosis: (4) Acute kidney injury: PLAN: Plan #HIAGMA 2/2 DKA in setting of type 1 diabetes mellitus usually on insulin pump -DKA secondary to running out of insulin pods on Friday and ineffective long- acting with sliding scale regimen -Had moderate acetone and a gap of 27 with a glucose of 285 and CO2 of 10.0 -We will start DKA protocol with insulin drip, BMPs every 4, glucose checks -3 L fluid boluses and maintenance ordered -We will monitor in the ICU -Follows with Dr. Ontiveros as an outpatient #KATI -Possibly secondary to dehydration from his DKA -We will hydrate and follow BMP in a.m. hold lisinopril #Alcohol abuse -Was here 06/17 for alcohol detox, reports not drinking for over a week but family member was in the room -We will obtain EtOH level and CIWA at this time, once family member no longer present can reattempt to discuss this and if no recent alcohol use can DC -Thiamine folate #Hypertension -Fairly hypertensive in ED, on ramipril at home but will hold this given kidney function and will add as needed medication and continue beta-danielle -Labetalol as needed #DVT ppx: Lovenox, SCDs Teresa Cedillo MD Time spent in the patient's overall evaluation,decision-making process, review of diagnostic data, adjustment of management, discussion with other providers, nursing nursing and ancillary staff involved in patient's care documentation, 60minutes Charges/Coding Visit Charges Inpatient E&M: 33720 Init Hosp L2 07/15/22 2343 <Electronically signed by Teresa Cedillo MD> Cosigner Signature (if applicable): CC: DEFINED NOT; Dr. Teresa Cedillo MD~ Signed [facility] Work Phone: 1(370) 509-532102-20-[address] Hopper [facility] July 15, 2022 11:58pm Note Date/Time July 15, 2022 9:49pm [facility] Medical Records Department [address] [place], [place] [address] [place] [address] Emergency Department Summary 07/15/22 MR#: [id number] Acct: [id number] Name: JORGE HOLLIS Rep #:[id number] : 1995 27 From: Jed Hopper MD PCP: NOT,DEFINED Status:ADM IN Location: ICU CVICU20 4-1 HPI History of Present Illness Chief Complaint: Hyperglycemia Informant: patient Onset/Context/Timing Onset: Days Context: Gradual Onset Timing: Intermittent Current Severity: Mild Maximum Severity: Mild Narrative Narrative: 27-year-old male history of diabetes, alcohol abuse for which he underwent recent admission for detox, hypertension and anxiety. Says that he has a automatic insulin pump. However he has been out of his insulin pods since Friday. His sugars have been going up and down High C been in the mid 300s. Hehas had some nausea and vomiting. No diarrhea. No fever. He wants to make sure he is not in DKA. Prior similar symptoms: Yes Recent Illness/Hospitalization: Yes [facility] Medical History Alcohol abuse Alcohol dependence Anxiety Depression Diabetes mellitus type 1 High cholesterol HTN (hypertension) Presence of insulin pump Vitamin D deficiency Home Medications Insulin Aspart [Novolog] See Protocol subcut UD dm 12/29/14 [History Last Taken 09/25/21] atorvastatin 10 mg tablet 10 mg PO QHS cholesterol lowering 09/25/21 [History Last Taken 09/21/21] metoprolol succinate 25 mg capsule sprinkle, ext. release 24 hr 25 mg PO DAILY blood pressure 09/25/21 [History Last Taken 09/23/21] Dexcom G6 Documentation Manager (blood-glucose meter,continuous) #1 ea 11/14/21 [Rx Last Taken Unknown] Dexcom G6 Sensor (blood-glucose sensor) #9 ea 11/14/21 [Rx Last Taken Unknown] Dexcom G6 Transmitter (blood-glucose transmitter) #1 ea 11/14/21 [Rx Last Taken Unknown] cholecalciferol (vitamin D3) 1,250 mcg (50,000 unit) capsule 1,250 mcg PO QWEEK #24 caps 11/14/21 [Rx Last Taken Unknown] insulin pump cart,automated,BT (Omnipod 5 G6 Pods (Gen 5) subcutaneous cartridge) #30 ea 11/14/21 [Rx Last Taken Unknown] insulin pump cartridge,automated dose,BT with controller subcutaneous (Omnipod 5G6 Intro Kit (Gen 5) subcutaneous cartridge with controller) #1 ea 11/14/21 [Rx Last Taken Unknown] Novolog U-100 Insulin aspart 100 unit/mL subcutaneous solution (insulin aspart U-100) 100 unit continuous subcutaneous infusion .continuous #90 mL 05/29/22 [Rx Last Taken Unknown] bupropion HCl 100 mg tablet 100 mg PO BID depression 06/17/22 [History Last Taken Unknown] lorazepam 1 mg tablet 1 mg PO QHS anxiety 06/17/22 [History Last Taken Unknown] ramipril 10 mg capsule 10 mg PO BID blood pressures 06/17/22 [History Last Taken Unknown] Allergy/AdvReac Type Severity Reaction Status Date / Time No Known Allergies Allergy Verified 07/03/22 15:42 Family History Mother Hypertension Surgical History No history of previous surgery Social History household members: none housing: apartment Smoking Status: Never smoker alcohol intake: current alcohol intake frequency: 3 or more drinks per day Alcohol type: beer and hard liquor substance use type: does not use ROS ROS ED ROS Narrative Nausea and vomiting intermittently. Review of Systems ROS Unobtainable: Denies due to encephalopathy Constitutional Constitutional ED: Denies chills or fever(s) Eyes Eyes: Denies blurry vision ENT ENT ED: Denies ear pain Cardiovascular Cardiovascular: Denies chest pain Respiratory/Chest Respiratory/Chest: Denies cough or dyspnea Gastrointestinal Gastrointestinal: Reports nausea and vomiting; Denies abdominal pain, constipation, diarrhea or melena Genitourinary Genitourinary ED: Denies dysuria or hematuria Musculoskeletal Musculoskeletal: Denies arthralgias Integumentary Denies abscess Neurologic Neurologic: Denies headache(s) Psychiatric Psychiatric: Denies anxiety Endocrine Endocrinology: Denies cold intolerance Hematologic/Lymphatic Hematologic/Lymphatic: Reports none Allergic/Immunologic Allergic/Immunologic ED: Denies mouth swelling, tongue swelling or urticaria EXAM Physical Exam Narrative Exam Narrative: 27-year-old male no acute distress. Vital signs his blood pressure is elevated 170s and 159 OB recheck. Heart rate 116. Pulse ox 97% on room air no hypoxia. He is afebrile. He does not look septic or toxic. H EENT exam unremarkable. Neck nontender no JVD. Lungs clear to auscultation bilaterally. Heart tachycardic rate about 110 no murmur. Abdomen soft nontender normal bowel sounds no peritoneal signs. Moving all 4 extremities. Nontender no edema. Back nontender. Skin unremarkable. Neurologically is awake alert no focal motor deficits. Const Vital Signs: 07/15/22 21:19 Temperature 96.7 F L Temperature Source Temporal Pulse Rate 116 H Respiratory Rate 16 Blood Pressure 177/159 H Blood Pressure Mean 165 Pulse Ox 97 Oxygen Delivery Method Room Air Positive well nourished and well developed; Negative for obese, cachectic, contractures or unkempt General Appearance ED: well developed and NAD; Negative for unkempt, cachectic, contractures, cyanotic, diaphoretic or pallor Nutritional Appearance: Negative for cachectic or obese HEENT Reports moist mucous membranes; Denies dry mucous membranes Negative for trauma or tenderness Mouth ED: No dry mucous membranes Mouth: No dry mucous membranes Eyes PERRL and EOMs intact bilaterally General Eye ED: Negative for pale conjunctiva or scleral icterus Neck no lymphadenopathy, supple and no JVD General: Negative for tenderness Chest Wall inspection of chest normal and palpation of chest normal Chest: Negative for other Resp normal respiratory effort and clear to auscultation bilaterally Effort and Inspection: Negative for retractions Auscultation: Negative for rales, rhonchi, wheezes or diminished lung sounds Cardio regular rhythm, S1 normal heart sound, S2 normal heart sound and no murmurs; Negative for regular rate Rate: tachycardic GI normal to inspection, nondistended, normoactive bowel sounds, non-tender, non-distended and no masses; Negative for hepatosplenomegaly Inspection: Negative for abdominal distention Auscultation: normoactive bowel sounds Palpation: soft; Negative for tender or guarding Back/Spine no CVA tenderness General Back: Negative for CVA tenderness Cervical Spine: Negative for cervical spine tenderness Thoracic Spine / Upper Back: Negative for thoracic spinal tenderness Lumbar Spine / Lower Back: Negative for lumbar spinal tenderness Extremity normal to inspection General Extremety ED: Negative for edema or tenderness General Extremity: Negative for edema Neuro oriented x3 and CN's II-XII intact bilaterally Sensorium / Orientation: alert; Negative for orientation impaired, lethargic or stuporous Motor Exam: strength 5/5 throughout Psych mental status grossly normal Appearance: Negative for unkempt Attitude: agitated Mood & Affect: anxious; Negative for depressed or tearful Skin no rashes or lesions noted and no wounds General Skin Exam: Negative for jaundice or pallor Rashes: No rashes noted Trauma: Negative for abrasion Wounds: Negative for wounds noted MDM MDM MDM Narrative Medical decision making narrative: 27-year-old diabetic male out of his insulin pods for his insulin pump. Concernhe may have gone back into DKA. Nausea and vomiting. Blood sugars between 2 and mid 300s. Will be treated with IV fluids. Screening labs and serum ketonesto be obtained. Zofran for nausea. Patient on repeat exam no significant change. Patient will be given a second liter normal saline and started on insulin drip. Patient is in DKA and I will call the hospitalist for admission. Lab Data Attestation: I reviewed the patient's lab results. Lab results narrative: This is awake 11.9. H&H is 16.6 and 48. Platelets 163. Electrolytes show sodium 133. Anion gap of 27. BUN of 20 creatinine 1.59. Glucose is only 285. Serum ketones are moderate. This is consistent with DKA. Labs: Laboratory Results - last 24 hr 07/15/22 07/15/22 07/15/22 22:05 22:05 22:05 WBC 11.9 H RBC 5.34 Hgb 16.6 H Hct 48.3 MCV 90.4 MCH 31.1 MCHC 34.4 RDW Std Deviation 42.1 RDW Coeff of Last 12.8 Plt Count 163 MPV 9.8 Immature Gran % (Auto) 0.400 Neut % (Auto) 77.3 H Lymph % (Auto) 8.3 L [place] % (Auto) 12.8 H Eos % (Auto) 0.1 Baso % (Auto) 1.1 H Absolute Neuts (auto) 9.2 H Absolute Lymphs (auto) 0.99 Nucleated RBC % 0 Differential Comment SCANNED Diff Path Review May foll Sodium 133 L Potassium 3.8 Chloride 96 L Carbon Dioxide 10.0 L Anion Gap 27 H BUN 20 H Creatinine 1.59 H Estim Creat Clear Calc 79.56 Est GFR (MDRD) Af Amer 68 Est GFR (MDRD) Non-Af 56 L BUN/Creatinine Ratio 12.6 Glucose 285 H Calcium 9.8 Acetone Level MODERATE H Critical Care Time Critical Care Time: Yes Critical care time (excluding procedures): 30-74 minutes, Including time spent:,Discussing w/Patient &/or Family/Epic [facility] Specialist, Discussing w/Consultants, ArrangingAdmission or Transfer, Performing Direct Patient Care at Bedside and - (35 min) Discharge Plan Dx/Rx/DC Orders Clinical Impression: Diabetic keto-acidosis, History of diabetes mellitus, High anion gap metabolic acidosis, Acute kidney injury Disposition Disposition: Acute Care Hospital [facility] What to do if you have Problems For any increased pain, shortness of breath, bleeding, nausea or vomiting, chestpain, or any unexpected problems, contact your Primary Care Provider. Call [facility] ([phone]) or report to the closest Emergency Room. Call 911 if necessary. 07/15/22 0744 <Electronically signed by Jed Hopper MD> Cosigner Signature (if applicable): CC: DEFINED NOT ~ Signed [facility] Work Phone: 1(902) 208-673002-08-[address] Corrales [facility] July 03, 2022 10:46pm Note Date/Time July 03, 2022 5 :54pm [facility] Medical Records Department [address] [place] [address] Emergency Department Summary 07/03/22 MR#: [id number] Acct: [id number] Name: JORGE HOLLIS Rep #:[id number] : 1995 27 From: Dipesh Corrales DO PCP: Dexter Daniel MD Status:DEP ER Location: ED HPI History of Present Illness Chief Complaint: Allergic Reaction Narrative Narrative: 27-year-old male presenting with diffuse rash. He states is on his trunk, extremities. It started on Friday. Patient notes that he was started on 3 new medications when he left the hospital for detox recently. He believes his atorvastatin, broke gone. He discontinued use of these and his rash does not resolve. He is not short of breath. He does not have any trouble swallowing orbreathing. [facility] Medical History Alcohol abuse Alcohol dependence Anxiety Depression Diabetes mellitus type 1 High cholesterol HTN (hypertension) Presence of insulin pump Vitamin D deficiency Home Medications Insulin Aspart [Novolog] See Protocol subcut UD dm 12/29/14 [History Last Taken 09/25/21] atorvastatin 10 mg tablet 10 mg PO QHS cholesterol lowering 09/25/21 [History Last Taken 09/21/21] metoprolol succinate 25 mg capsule sprinkle, ext. release 24 hr 25 mg PO DAILY blood pressure 09/25/21 [History Last Taken 09/23/21] Dexcom G6 Documentation Manager (blood-glucose meter,continuous) #1 ea 11/14/21 [Rx Last Taken Unknown] Dexcom G6 Sensor (blood-glucose sensor) #9 ea 11/14/21 [Rx Last Taken Unknown] Dexcom G6 Transmitter (blood-glucose transmitter) #1 ea 11/14/21 [Rx Last Taken Unknown] cholecalciferol (vitamin D3) 1,250 mcg (50,000 unit) capsule 1,250 mcg PO QWEEK #24 caps 11/14/21 [Rx Last Taken Unknown] insulin pump cart,automated,BT (Omnipod 5 G6 Pods (Gen 5) subcutaneous cartridge) #30 ea 11/14/21 [Rx Last Taken Unknown] insulin pump cartridge,automated dose,BT with controller subcutaneous (Omnipod 5G6 Intro Kit (Gen 5) subcutaneous cartridge with controller) #1 ea 11/14/21 [Rx Last Taken Unknown] Novolog U-100 Insulin aspart 100 unit/mL subcutaneous solution (insulin aspart U-100) 100 unit continuous subcutaneous infusion .continuous #90 mL 05/29/22 [Rx Last Taken Unknown] bupropion HCl 100 mg tablet 100 mg PO BID depression 06/17/22 [History Last Taken Unknown] lorazepam 1 mg tablet 1 mg PO QHS anxiety 06/17/22 [History Last Taken Unknown] ramipril 10 mg capsule 10 mg PO BID blood pressures 06/17/22 [History Last Taken Unknown] Allergy/AdvReac Type Severity Reaction Status Date / Time No Known Allergies Allergy Verified 07/03/22 15:42 Family History Mother Hypertension Surgical History No history of previous surgery Social History household members: none housing: apartment Smoking Status: Never smoker alcohol intake: current alcohol intake frequency: 3 or more drinks per day Alcohol type: beer and hard liquor substance use type: does not use ROS ROS ED Constitutional Constitutional ED: Denies chills, fever(s) or sweats Eyes Eyes: Denies blurry vision or change in vision ENT ENT ED: Denies ear pain or sore throat Cardiovascular Cardiovascular: Denies chest pain, palpitations or racing heartbeat Respiratory/Chest Respiratory/Chest: Denies cough, dyspnea or sputum Gastrointestinal Gastrointestinal: Denies abdominal pain, constipation, diarrhea, nausea or vomiting Genitourinary Genitourinary ED: Denies dysuria, hematuria or urinary frequency Musculoskeletal Musculoskeletal: Denies arthralgias, myalgias or neck pain Integumentary Reports rash; Denies abscess or Abrasions Neurologic Neurologic: Denies headache(s), paresthesias or weakness Psychiatric Psychiatric: Denies anxiety, depression, suicidal ideation or suicidal thoughts Endocrine Endocrinology: Denies polydipsia or polyuria EXAM Physical Exam Const Vital Signs: 07/03/22 15:43 07/03/22 18:13 07/03/22 19:51 Temperature 96.9 F L Temperature Source Temporal Pulse Rate 93 79 79 Respiratory Rate 18 17 16 Blood Pressure 182/118 H 157/97 H Blood Pressure Mean 139 Pulse Ox 100 99 99 Oxygen Delivery Method Room Air Room Air General Appearance ED: Negative for pallor HEENT Reports normocephalic, head/scalp atraumatic and moist mucous membranes Eyes PERRL and EOMs intact bilaterally Neck no lymphadenopathy and supple Chest Wall inspection of chest normal and palpation of chest normal Resp normal respiratory effort and clear to auscultation bilaterally Auscultation: Negative for rales, rhonchi or wheezes Cardio regular rate and regular rhythm GI normal to inspection, nondistended, normoactive bowel sounds and non-distended Auscultation: normoactive bowel sounds Palpation: soft Narrative: Deferred Back/Spine no CVA tenderness General Back: Negative for CVA tenderness Cervical Spine: Negative for cervical spine tenderness Extremity normal to inspection General Extremety ED: Yes edema and tenderness General Extremity: edema Neuro oriented x3 and CN's II-XII intact bilaterally Sensorium / Orientation: alert Motor Exam: strength 5/5 throughout Psych mental status grossly normal Attitude: No agitated Skin no wounds Skin Narrative: Maculopapular rash on trunk and extremities. General Skin Exam: Negative for jaundice or pallor MDM MDM MDM Narrative Medical decision making narrative: 27-year-old male presenting with diffuse rash on his trunk and extremities. He states this is believed to be a medication side effect he is started some new medications as an outpatient. He stopped taking these 3 days ago and his rash is not completely resolving. Patient is a type I diabetic so I wanted to stay away from steroids. He did get a dose of epinephrine, Benadryl, Pepcid and his rash is improved dramatically. I feel he stable for discharge home. He will follow-up with his PCP she reached start his medications as an outpatient. Return precautions discussed. Impression: 1. Drug reaction Lab Data Attestation: I reviewed the patient's lab results. Discharge Plan Triage Chief Complaint: Allergic Reaction ED Provider: Dipesh Corrales Dx/Rx/DC Orders Instructions: ED ADVERSE DRUG REACTION Allergic Prescriptions: No Action (DME) Omnipod 5 G6 Intro Kit (Gen 5) Cartridge See Rx Instructions .Route Qty: 1 0RF Rx Instructions: As directed (DME) Omnipod 5 G6 Pods (Gen 5) Cartridge See Rx Instructions .Route Qty: 30 1RF Rx Instructions: 1 pod q 72 hours (DME) Dexcom G6 Documentation Manager Misc See Rx Instructions .Route Qty: 1 0RF Rx Instructions: As directed (DME) Dexcom G6 Sensor Device See Rx Instructions .Route Qty: 9 1RF Rx Instructions: 1 sensor q 10 days (DME) Dexcom G6 Transmitter Device See Rx Instructions .Route Qty: 1 1RF Rx Instructions: 1 transmitter q 90 days cholecalciferol (vitamin D3) 1,250 mcg (50,000 unit) capsule 1,250 mcg PO QWEEK Qty: 24 0RF insulin aspart U-100 [Novolog U-100 Insulin aspart] 100 unit/mL solution 100 unit continuous subcutaneous infusion .continuous Qty: 90 1RF Insulin Aspart [Novolog] 100 UNIT/ML Ml See Protocol subcut UD Protocol: 6. Sliding Scale Insulin Custom Condition: mg/dl range Dose/Route: Number of Units Protocol Text: Custom Sliding Scale Label Comments: INSULIN PUMP- VARYING HOURLY BASAL RATE from 1446-9198 1.3 units 5218-9173 1.35 units 9965-9044 1.4 units Rx Instructions: PT HAS INSULIN PUMP atorvastatin 10 mg Tablet 10 mg PO QHS metoprolol succinate 25 mg Capsule,Sprinkle,Er 24hr 25 mg PO DAILY ramipril 10 mg capsule 10 mg PO BID bupropion HCl 100 mg tablet 100 mg PO BID Label Comments: TAKE ONE TABLET BY MOUTH TWICE A DAY lorazepam 1 mg tablet 1 mg PO QHS Primary Care Provider: Dexter Daniel MD Referrals: Dexter Daniel MD [Other] Disposition Disposition: Home, Self Care Discharge Date/Time: 07/03/22 19:57 What to do if you have Problems For any increased pain, shortness of breath, bleeding, nausea or vomiting, chest pain, or any unexpected problems, contact your Primary Care Provider. Call [facility] ([phone]) or report to the closest Emergency Room. Call 911 if necessary. 07/03/222245 <Electronically signed by Dipesh Corrales DO> Cosigner Signature (if applicable): CC: Dexter Daniel MD ~ Signed [facility] Work Phone: 1(287) 581-893301-25-[address] Murphy [facility] June 19, 2022 2:27pm Note Date/Time June 19, 2022 2 :27pm [facility] Medical Records Department [address] [place] [id number] Progress Note - Hospitalist 06/19/22 1424 MR#: [id number] Acct: [id number] Name: JORGE HOLLIS Rep #:[id number] : 1995 27 From: Osiris Murphy DO PCP: Care Physician,No Primary Status :ADM IN Location: MT3 VS591-2 Subjective Subjective Patient states he still feels a little bit anxious. No nausea or vomiting. No diarrhea. No abdominal pain. No significant tremor at this time. Overall feeling better. Blood sugars were better overnight Objective Data Objective Data Vital Signs: Vital Signs Temp Pulse Resp BP Pulse Ox O2 Del Method 97.7 F L 66 18 114/81 H 97 Room Air 06/19/22 09:28 06/19/22 09:33 06/19/22 09:28 06/19/22 09:28 06/19/22 09:28 06/19/22 09:48 Oxygen Delivery Method Room Air Weight: 89.3 kg Body Mass Index (BMI) 25.9 Intake & Output: Intake and Output for Last 24 Hours 06/17/22 06/18/22 06/19/22 23:59 23:59 23:59 Intake Total 1752 / 2552 3052 / 3852 1552 / 1552 Balance 1752 / 2552 3052 / 3852 1552 / 1552 Lab / Micro Data Result Diagrams: 06/17/22 08:43 06/19/22 05:50 Labs: Laboratory Results - last 24 hr 06/18/22 06:20: Phosphorus 3.9, Magnesium 1.3 L 06/19/22 05:50: Sodium 140, Potassium 3.8, Chloride 106, Carbon Dioxide 28.0, Anion Gap 6, BUN 6 L, Creatinine 0.72, Estim Creat Clear Calc 175.71, Est GFR (MDRD) Af Amer 169, Est GFR (MDRD) Non-Af 140, BUN/Creatinine Ratio 8.3 L, Glucose 116 H, Calcium 8.8, Phosphorus 3.8, Magnesium 2.0, Total Bilirubin 0.50,AST 27, ALT 42, Alkaline Phosphatase 73, Total Protein 6.2 L, Albumin 3.1 L, Globulin 3.1, Albumin/Globulin Ratio 1.0 Physical Exam Const alert, oriented x3, no apparent distress, healthy appearing and well nourished Constitutional Narrative: Young overweight white male lying in bed, appears comfortable, nontoxic General Appearance: cooperative HEENT normocephalic, head/scalp atraumatic, hearing grossly normal bilaterally and moist oral mucous membranes Resp normal respiratory effort, no retractions, no use of accessory muscles and clearto auscultation bilaterally Auscultation: Negative for crackles, rhonchi or wheezes Cardio regular rate, regular rhythm, S1 normal heart sound, S2 normal heart sound, no murmurs, no rub, no gallops and no clicks GI normal to inspection, nondistended, normoactive bowel sounds, soft to palpation and non-tender Extremity no clubbing, cyanosis or edema Extremity Narrative: 2+ pedal pulses Neuro oriented x3, moves all extremities and no focal motor deficits Neuro Narrative: Mild fine tremor noted Speech: speech normal Psych affect normal Psych Narrative: Seems calm, very pleasant Assessment & Plan Assessment/Plan (1) Dehydration: (2) Alcohol dependence: (3) Alcohol withdrawal: (4) Alcoholic hepatitis: PLAN: Plan Acute alcohol withdrawal -Alcohol level on admission was 334.0 and patient was having some withdrawal symptoms -Patient drinks anywhere from 12-24 beers daily along with 4 [place]'s -Never been through detox previously -Continue phenobarbital taper -IV thiamine 200 mg x 3 days--> day 3 of 3 -Folic acid supplementation -As needed medication for withdrawal symptoms -180 evalulated-->f/u with [facility] for outpatient treatment services -Possible discharge tomorrow depending on withdrawal symptoms Mild alcoholic hepatitis -Resolved DM-1 -Continue insulin pump as long as patient is cognitively able to manage -If patient becomes confused or is unable to manage his insulin pump will need to transition to Lantus -Insulin basal rate is approximately 1.3 to 1.4 units an hour -Dose 20 units SQ daily as well as a sliding scale if patient is able to manage his insulin -Patient's current pump rate is 1.1 [id number] as he had some further issues with hypoglycemia intermittently throughout the day yesterday -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 Ontiveros after discharge -If further issues with blood sugar control will call Dr. Ontiveros tomorrow for assistance in managing his blood sugars Hypokalemia - resolved Hypertension -Continue home metoprolol and ramipril Hyperlipidemia -Continue home atorvastatin Anxiety/depression -Continue home medication Overweight -recommend weight loss DVT prophylaxis -Low risk -Encourage early ambulation CODE STATUS -Full code Charges/Coding Visit Charges Inpatient E&M: 02529 Subs Hosp L2 06/19/22 1427 <Electronically signed by Osiris Murphy DO> Aminataer Signature (if applicable): CC: ~ Signed [facility] Work Phone: 1(200) 165-384701-24-[address] Murphy [facility] June 18, 2022 3:02pm Note Date/Time June 18, 2022 3 :02pm [facility] Medical Records Department [address] [place] [address] Progress Note - Hospitalist 06/18/22 1455 MR#: [id number] Acct: [id number] Name: JORGE HOLLIS Rep #:[id number] : 1995 27 From: Osiris Murphy DO PCP: Care Physician,No Primary Status :ADM IN Location: MS3 [id number] Subjective Subjective Patient states overall he is feeling okay. A little bit of nausea and anxiety but overall better than yesterday. No significant tremulousness. Did have somehypoglycemia overnight and we have reviewed his basal rates and made some adjustments. Objective Data Objective Data Vital Signs: Vital Signs Temp Pulse Resp BP Pulse Ox O2 Del Method 97.7 F L 65 16 133/80 H 97 Room Air 06/18/22 11:55 06/18/22 11:55 06/18/22 11:55 06/18/22 11:55 06/18/22 11:55 06/18/22 11:55 Oxygen Delivery Method Room Air Weight: 89.3 kg Body Mass Index (BMI) 25.9 Intake & Output: Intake and Output for Last 24 Hours 06/16/22 06/17/22 06/18/22 23:59 23:59 23:59 Intake Total 1752 / 2552 2152 / 2152 Balance 1752 / 2552 215 / 215 Lab / Micro Data Result Diagrams: 06/17/22 08:43 06/18/22 06:20 Labs: Laboratory Results - last 24 hr 06/18/22 06:20: Sodium 142, Potassium 3.4 L, Chloride 107, Carbon Dioxide 28.0, Anion Gap 7, BUN 8, Creatinine 0.67 L, Estim Creat Clear Calc 188.82, Est GFR (MDRD) Af Amer 184, Est GFR (MDRD) Non-Af 152, BUN/Creatinine Ratio 11.9, Glucose 52 L, Calcium 8.1 L Physical Exam Const alert, oriented x3, no apparent distress, healthy appearing and well nourished Constitutional Narrative: Young overweight white male lying in bed, appears comfortable, nontoxic General Appearance: cooperative HEENT normocephalic, head/scalp atraumatic, hearing grossly normal bilaterally and moist oral mucous membranes Resp normal respiratory effort, no retractions, no use of accessory muscles and clearto auscultation bilaterally Auscultation: Negative for crackles, rhonchi or wheezes Cardio regular rate, regular rhythm, S1 normal heart sound, S2 normal heart sound, no murmurs, no rub, no gallops and no clicks GI normal to inspection, nondistended, normoactive bowel sounds, soft to palpation and non-tender Extremity no clubbing, cyanosis or edema Extremity Narrative: 2+ pedal pulses Neuro oriented x3, moves all extremities and no focal motor deficits Neuro Narrative: Mild fine tremor noted Speech: speech normal Psych affect normal Mood & Affect: anxious Assessment & Plan Assessment/Plan (1) Dehydration: (2) Alcohol dependence: (3) Alcohol withdrawal: (4) Alcoholic hepatitis: PLAN: Plan Acute alcohol withdrawal -Alcohol level on admission was 334.0 and patient was having some withdrawal symptoms -Patient drinks anywhere from 12-24 beers daily along with 4 [place]'s -Never been through detox previously -Continue phenobarbital taper -IV thiamine 200 mg x 3 days--> day 2 of 3 -Folic acid supplementation -As needed medication for withdrawal symptoms -180evalulated-->f/u with [facility] for outpatient treatment services Mild alcoholic hepatitis -AST 81/ALT 74 -Repeat hepatic studies tomorrow -Should improve with cessation Mild dehydration -Resolved DM-1 -Continue insulin pump as long as patient is cognitively able to manage -If patient becomes confused or is unable to manage his insulin pump will need to transition to Lantus -Insulin basal rate is approximately 1.3 to 1.4 units an hour -Dose 20 units SQ daily as well as a sliding scale if patient is able to manage his insulin -Patient with some hypoglycemia overnight so we did make some adjustments in hisinsulin pump with his rates being decreased to 1.1 from 8:30 PM through tomorrowmorning and will reevaluate again tomorrow. -I suspect his hypoglycemia is related to his alcohol cessation along with decreased gluconeogenesis from his liver from alcoholic hepatitis -Carb controlled diet -A1c is 8.2 -Recommend outpatient follow-up with Dr. Ontiveros after discharge -If further issues with blood sugar control will call Dr. Ontiveros tomorrow for assistance in managing his blood sugars Hypokalemia -40 M EQ's p.o. potassium -Recheck in a.m. -Check a.m. magnesium level Hypertension -Continue home metoprolol and ramipril Hyperlipidemia -Continue home atorvastatin Anxiety/depression -Continue home medication Overweight -recommend weight loss DVT prophylaxis -Low risk -Encourage early ambulation CODE STATUS -Full code Charges/Coding Visit Charges Inpatient E&M: 34707 Subs Hosp L2 06/18/22 1502 <Electronically signed by sOiris Murphy DO> Cosigner Signature (if applicable): CC: ~ Signed [facility] Work Phone: 1(259) 984-904001-23-2023 History and physical note Author Dr. Murphy [facility] June 17, 2022 1:52pm Note Date/Time June 17, 2022 9 :52am [facility] Medical Records Department [address] [place] [address] H&P Exam - Hospitalist 06/17/22 0951 MR#: [id number] Acct: [id number] Name: JORGE HOLLIS Rep #:[id number] : 1995 27 From: Osiris Murphy DO PCP: Care Physician,No Primary Status :ADM IN [place] [facility] [place] HPI - General General Date of Admission: 06/17/22 Date of Service: 06/17/22 Chief Complaint: EtOH Detox HPI Narrative JORGE HOLLIS, is a 27 M who presented to emergency department [facility] on 06/17/2021 requesting alcohol detox. Patient reports that he has been drinking anywhere from 12-24 beers and 4 [place]'s per day for a long time. The estimated at the time of my evaluation has been doing so for approximately 6years. He has never been through detox previously. Patient indicated that he needs to stop drinking because it is ruining his life, interpersonal relationships, work and financial situation. He is a type I diabetic and has aninsulin pump and follows with Dr. Ontiveros as an outpatient. He reported that he ishaving some nausea/ vomiting along with some abdominal cramping and feeling shaky. His last drink was approximately 11-12 o'clock last evening. He denies any other substance abuse or tobacco abuse. Vital signs at the time of presentation demonstrated a temperature of 96.9, heart rate 106, blood pressure 146/105, respiratory rate 17, oxygen saturations are 99% room air. CBC is unremarkable. Coags are normal. Chemistry panel is overall unremarkable other than mildly elevated blood glucose at 203. Hemoglobin A1c was obtained and found to be 8.2. Liver enzymes are elevated andalcohol type pattern with an AST of 81 and ALT of 74. Urine tox screen is negative. Ethyl alcohol level is 334.0. The emergency department he was treated with IV fluids and given initial dose ofphenobarbital for alcohol withdrawal. [facility] Medical History Alcohol abuse Anxiety Depression Diabetes mellitus type 1 High cholesterol HTN (hypertension) Presence of insulin pump Vitamin D deficiency Home Medications Insulin Aspart [Novolog] See Protocol subcut UD dm 12/29/14 [History Last Taken 09/25/21] atorvastatin 10 mg tablet 10 mg PO QHS cholesterol lowering 09/25/21 [History Last Taken 09/21/21] metoprolol succinate 25 mg capsule sprinkle, ext. release 24 hr 25 mg PO DAILY blood pressure 09/25/21 [History Last Taken 09/23/21] Dexcom G6 Documentation Manager (blood-glucose meter,continuous) #1 ea 11/14/21 [Rx Last Taken Unknown] Dexcom G6 Sensor (blood-glucose sensor) #9 ea 11/14/21 [Rx Last Taken Unknown] Dexcom G6 Transmitter (blood-glucose transmitter) #1 ea 11/14/21 [Rx Last Taken Unknown] cholecalciferol (vitamin D3) 1,250 mcg (50,000 unit) capsule 1,250 mcg PO QWEEK #24 caps 11/14/21 [Rx Last Taken Unknown] insulin pump cart,automated,BT (Omnipod 5 G6 Pods (Gen 5) subcutaneous cartridge) #30 ea 11/14/21 [Rx Last Taken Unknown] insulin pump cartridge,automated dose,BT with controller subcutaneous (Omnipod 5G6 Intro Kit (Gen 5) subcutaneous cartridge with controller) #1 ea 11/14/21 [Rx Last Taken Unknown] Novolog U-100 Insulin aspart 100 unit/mL subcutaneous solution (insulin aspart U-100) 100 unit continuous subcutaneous infusion .continuous #90 mL 05/29/22 [Rx Last Taken Unknown] bupropion HCl 100 mg tablet 100 mg PO BID depression 06/17/22 [History Last Taken Unknown] lorazepam 1 mg tablet 1 mg PO QHS anxiety 06/17/22 [History Last Taken Unknown] ramipril 10 mg capsule 10 mg PO BID blood pressures 06/17/22 [History Last Taken Unknown] Allergy/AdvReac Type Severity Reaction Status Date / Time No Known Allergies Allergy Verified 06/17/22 07:49 Family History Mother Hypertension Surgical History No history of previous surgery Social History (Updated 06/17/22 @ 13:[address] Osiris Murphy DO) household members: none housing: apartment Smoking Status: Never smoker alcohol intake: current alcohol intake frequency: 3 or more drinks per day Alcohol type: beer and hard liquor substance use type: does not use ROS Constitutional Constitutional: Denies anorexia, change in weight, chills, fatigue, fever(s), malaise, night sweats, weakness or other Eyes Eyes: Denies blurry vision, change in eye color, change in vision, discharge from eye(s), double vision, erythema, eye pain, loss of vision or other ENT HEENT: Denies abnormal hearing, dysphagia, ear pain, epistaxis, headache(s), hearing loss, nasal congestion, nasal discharge, post nasal drip, sinus pressure, sore throat or other Cardiovascular Cardiovascular: Denies chest pain, claudication, dyspnea on exertion, edema, lightheadedness, orthopnea, palpitations, paroxysmal nocturnal dyspnea, rapid heart rate, syncope or other Respiratory/Chest Respiratory/Chest: Denies cough, dyspnea, excessive phlegm production, hemoptysis, productive cough, shortness of breath at rest, shortness of breath with exertion, wheezing or other Gastrointestinal Gastrointestinal: Reports abdominal pain, nausea and vomiting; Denies coffee ground emesis, constipation, diarrhea, dyspepsia, hematemesis, hematochezia, loose stools, melena or other Genitourinary Genitourinary: Denies burning urination, difficulty urinating, dysuria, hematuria, nocturia, urinary frequency, urinary hesitancy, urinary incontinence,urinary urgency or other Musculoskeletal Musculoskeletal: Denies arthralgias, back pain, joint pain, joint stiffness, joint swelling, myalgias, neck pain or other Neurologic Neurologic: Reports tremor(s); Denies abnormal gait, abnormal speech, confusion,disequilibrium, dizziness, focal weakness, headache(s), numbness, paresthesias, seizure-like activity, seizures, syncope, tingling or other Psychiatric Psychiatric: Reports anxiety and depression; Denies homicidal ideation, suicidalideation or other Endocrine Endocrinology: Denies change in body appearance, cold intolerance, excessive sweating, heat intolerance, polydipsia, polyuria or other Hematologic/Lymphatic Hematologic/Lymphatic: Denies anemia, easy bleeding, easy bruising, lymphadenopathy or other Allergic/Immunologic Allergic/Immunologic: Denies rhinitis, hives, eczemia, asthma or other Vital Signs Vital Signs Vital Signs: 06/17/22 07:49 06/17/22 08:00 Temperature 96.9 F L 96.8 F L Temperature Source Temporal Temporal Pulse Rate 106 H 88 Respiratory Rate 17 18 Blood Pressure 146/105 H 132/97 H Blood Pressure Mean 118 108 Blood Pressure Source Monitor Blood Pressure Position Semi-Fowlers Blood Pressure Location Right Arm Pulse Ox 99 97 Oxygen Delivery Method Room Air Room Air Weight Weight: 89.766 kg Body Mass Index (BMI) 26.1 Physical Exam Const alert, oriented x3, no apparent distress, healthy appearing and well nourished Constitutional Narrative: Young overweight white male sitting up in bed, mother at bedside, appears comfortable, nontoxic General Appearance: cooperative HEENT normocephalic, head/scalp atraumatic, hearing grossly normal bilaterally and moist oral mucous membranes HEENT Narrative: Mild 2, no thrush, dentition is good Eyes PERRL, EOMs intact bilaterally and conjunctivae normal Eyes Narrative: No scleral icterus Neck no lymphadenopathy and supple Neck Narrative: Trachea midline, no thyroid enlargement Resp normal respiratory effort, no retractions, no use of accessory muscles and clearto auscultation bilaterally Auscultation: Negative for crackles, rhonchi or wheezes Cardio regular rate, regular rhythm, S1 normal heart sound, S2 normal heart sound, no murmurs, no rub, no gallops and no clicks GI normal to inspection, nondistended, normoactive bowel sounds, soft to palpation and non-tender Extremity no clubbing, cyanosis or edema Extremity Narrative: 2+ pedal pulses Skin no rashes or lesions noted, no wounds, skin turgor normal, no jaundice, no petechiae and no mottling Neuro oriented x3, CN's II-XII intact bilaterally, moves all extremities and no focal motor deficits Neuro Narrative: Mild fine tremor noted Speech: speech normal Motor Exam: strength 5/5 throughout Psych affect normal Mood & Affect: anxious Results Lab / Micro Data Attestation: I reviewed the patient's lab results. Result Diagrams: 06/17/22 08:43 06/17/22 08:43 Labs: Laboratory Results - last 24 hr 06/17/22 08:25: Urine Opiates Screen NEGATIVE, Urine Methadone Screen NEGATIVE, Ur Barbiturates Screen NEGATIVE, Ur Phencyclidine Scrn NEGATIVE, Ur AmphetaminesScreen NEGATIVE, MDMA (Ecstasy) Screen NEGATIVE, U Benzodiazepines Scrn NEGATIVE, Urine Cocaine Screen NEGATIVE, U Cannabinoids Screen NEGATIVE, Ur DrugScreen Comment 06/17/22 08:43: WBC 6.1, RBC 4.84, Hgb 15.3, Hct 43.8, MCV 90.5, MCH 31.6, MCHC 34.9, RDW Std Deviation 45.5 H, RDW Coeff of Last 13.7, Plt Count 192, MPV 9.4, Immature Gran % (Auto) 0.500, Neut % (Auto) 52.8, Lymph % (Auto) 36.5, [place] % (Auto) 8.2, Eos % (Auto) 1.5, Baso % (Auto) 0.5, Absolute Neuts (auto) 3.2, Absolute Lymphs (auto) 2.22, Nucleated RBC % 0 06/17/22 08:43: PT 13.1, INR 1.0 06/17/22 08:43: Acetone Level NEGATIVE 06/17/22 08:43: Sodium 145, Potassium 3.9, Chloride 111 H, Carbon Dioxide 26.0, Anion Gap 8, BUN 6 L, Creatinine 0.83, Estim Creat Clear Calc 152.42, Est GFR (MDRD) Af Amer 144, Est GFR (MDRD) Non-Af 119, BUN/Creatinine Ratio 7.2 L, Glucose 203 H, Calcium 8.7, Total Bilirubin 0.30, AST 81 H, ALT 74 H, Alkaline Phosphatase 93, Total Protein 7.7, Albumin 3.9, Globulin 3.8, Albumin/Globulin Ratio 1.0 06/17/22 08:43: Ethyl Alcohol 334.0 H* Assessment & Plan Assessment/Plan (1) Dehydration: (2) Alcohol dependence: (3) Alcohol withdrawal: (4) Alcoholic hepatitis: PLAN: Plan Acute alcohol withdrawal -Alcohol level on admission was 334.0 and patient was having some withdrawal symptoms -Patient drinks anywhere from 12-24 beers daily along with 4 [place] -Never been through detox previously -Start phenobarbital taper -IV thiamine 200 mg x 3 days -Folic acid supplementation -As needed medication for withdrawal symptoms -180 consultation Mild alcoholic hepatitis -AST 81/ALT 74 -Should improve with cessation Mild dehydration -No significant lab abnormalities related this however patient appears dry clinically -Was given 1 L IV fluids emergency department -Give 1 more liter now and assure patient is eating without any difficulty priorto discontinuing DM-1 -Continue insulin pump as long as patient is cognitively able to manage -If patient becomes confused or is unable to manage his insulin pump will need to transition to Lantus -Insulin basal rate is approximately 1.3 to 1.4 units an hour -Dose 20 units SQ daily as well as a sliding scale if patient is able to manage his insulin -Carb controlled diet -A1c is 8.2 -Recommend outpatient follow-up with Dr. Ontiveros after discharge Hypertension -Continue home while in the-continue home ramipril Hyperlipidemia -Continue home atorvastatin Anxiety/depression -Continue home medication Overweight -recommend weight loss DVT prophylaxis -Low risk -Encourage early ambulation CODE STATUS -Full code Charges/Coding Visit Charges Inpatient E&M: 32359 Init Hosp L3 06/17/22 1352 <Electronically signed by Osiris Murphy DO> Cosigner Signature (if applicable): CC: Dr. Osiris Murphy DO; No Primary Care Physician~ Signed [facility] Work Phone: [phone]) 188-776901-23-[address] Patel [facility] June 17, 2022 9:52am Note Date/Time June 17, 2022 8 :18am [facility] Medical Records Department [address] [place] [address] Emergency Department Summary 06/17/22 MR#: [id number] Acct: [id number] Name: TELMAJORGE DALY Rep #:[id number] : 1995 27 From: Lavell Patel MD PCP: Care Physician,No Primary Status :REG ER Location: ED HPI History of Present Illness Chief Complaint: Substance Abuse Informant: patient Onset/Context/Timing Onset: - (a year or more) Timing: Intermittent Quality: shaky Location: all over Current Severity: Moderate Maximum Severity: Severe Worsened by: nothing Relieved by: drinking EtOH Associated Symptoms Associated Symptoms: Positive for vomiting* (several days); Negative for diarrhea*, fever*, rash*, seizure, palpatations, change in mental status, sex for drugs*, suicidal ideation, homicidal ideation or *HIV Risk Factors:Consider testing if last test > 6 months Narrative Narrative: Patient has been drinking between 12-24 beers/ 4-Locos per day for a long timehe estimates over a year. He has never been through detox before but is seekingit today. He states it is easier to continue drinking but he needs to stop because it is ruining his life, interpersonal relationships, work, financial situation, etc. He is not suicidal. He wants help. He is here with his motherwho did not force him to come. He is a type I diabetic, he has had some episodes of low blood sugars because he is not eating especially in the past week, but he is still using his insulin he has a pump. He denies any dyspnea. He has had vomiting for the last several days, but not a lot of it. Some abdominal cramps and feeling shaky when he has not drank, such as now but he denies any abdominal pain right now. Last drink was last night. Denies using any other substances or IV drugs. No confusion or seizure episodes. No known history of cirrhosis or other medical issues other than the diabetes and hypertension. [facility] Medical History Depression Diabetes mellitus type 1 High cholesterol HTN (hypertension) Presence of insulin pump Vitamin D deficiency Home Medications Insulin Aspart [Novolog] See Protocol subcut UD 12/29/14 [History Last Taken 09/25/21] atorvastatin 10 mg tablet 10 mg PO QHS cholesterol lowering 09/25/21 [History Last Taken 09/21/21] metoprolol succinate 25 mg capsule sprinkle, ext. release 24 hr 25 mg PO DAILY 09/25/21 [History Last Taken 09/23/21] Dexcom G6 Documentation Manager (blood-glucose meter,continuous) #1 ea 11/14/21 [Rx Last Taken Unknown] Dexcom G6 Sensor (blood-glucose sensor) #9 ea 11/14/21 [Rx Last Taken Unknown] Dexcom G6 Transmitter (blood-glucose transmitter) #1 ea 11/14/21 [Rx Last Taken Unknown] cholecalciferol (vitamin D3) 1,250 mcg (50,000 unit) capsule 1,250 mcg PO QWEEK #24 caps 11/14/21 [Rx Last Taken Unknown] insulin pump cart,automated,BT (Omnipod 5 G6 Pods (Gen 5) subcutaneous cartridge) #30 ea 11/14/21 [Rx Last Taken Unknown] insulin pump cartridge,automated dose,BT with controller subcutaneous (Omnipod 5G6 Intro Kit (Gen 5) subcutaneous cartridge with controller) #1 ea 11/14/21 [Rx Last Taken Unknown] ramipril 10 mg capsule 10 mg PO BID #180 caps 11/14/21 [Rx Last Taken Unknown] Novolog U-100 Insulin aspart 100 unit/mL subcutaneous solution (insulin aspart U-100) 100 unit continuous subcutaneous infusion .continuous #90 mL 05/29/22 [Rx Last Taken Unknown] mirtazapine 30 mg tablet 30 mg PO DAILY 06/01/22 [History Last Taken Unknown] nystatin 100,000 unit/mL oral suspension 4 ml PO Q6H Oral Karen 7 days #112 mL06/01/22 [Rx Last Taken Unknown] Allergy/AdvReac Type Severity Reaction Status Date / Time No Known Allergies Allergy Verified 06/17/22 07:49 Family History Mother Hypertension Surgical History No history of previous surgery Social History household members: none Smoking Status: Never smoker alcohol intake: current details: Will drink 2-5 drinks on the weekends. substance use type: does not use ROS ROS ED Constitutional Constitutional ED: Reports malaise and sweats; Denies chills or fever(s) Eyes Eyes: Denies change in vision or diplopia ENT ENT ED: Denies rhinorrhea or sore throat Cardiovascular Cardiovascular: Denies chest pain or palpitations Respiratory/Chest Respiratory/Chest: Denies cough or dyspnea Gastrointestinal Gastrointestinal: Reports abdominal pain, nausea and vomiting; Denies diarrhea Genitourinary Genitourinary ED: Denies dysuria or hematuria Musculoskeletal Musculoskeletal: Denies back pain or neck pain Integumentary Denies abscess or rash Neurologic Neurologic: Denies headache(s), paresthesias or weakness Psychiatric Psychiatric: Denies anxiety or suicidal thoughts EXAM Physical Exam Const Vital Signs: 06/17/22 07:49 06/17/22 08:00 Temperature 96.9 F L 96.8 F L Temperature Source Temporal Temporal Pulse Rate 106 H 88 Respiratory Rate 17 18 Blood Pressure 146/105 H 132/97 H Blood Pressure Mean 118 108 Blood Pressure Source Monitor Blood Pressure Position Semi-Fowlers Blood Pressure Location Right Arm Pulse Ox 99 97 Oxygen Delivery Method Room Air Room Air Positive well nourished and well developed General Appearance ED: well developed and NAD HEENT Reports moist mucous membranes normocephalic and atraumatic Eyes PERRL and EOMs intact bilaterally Neck full ROM and supple Resp normal respiratory effort and clear to auscultation bilaterally Cardio regular rate, regular rhythm and no murmurs Rate: tachycardic GI non-tender and non-distended Auscultation: normoactive bowel sounds Palpation: soft Back/Spine no CVA tenderness General Back: other FROM Extremity normal to inspection General Extremety ED: Negative for edema, pulses abnormal or tenderness General Extremity: Negative for edema or pulses abnormal Neuro oriented x3, CN's II-XII intact bilaterally and no sensory deficits noted Sensorium / Orientation: awake and alert Motor Exam: strength 5/5 throughout Psych Mood & Affect: anxious and tearful Skin no rashes or lesions noted and no wounds MDM MDM MDM Narrative Medical decision making narrative: Is 1I treated patient with IV fluids, Zofran, followed by oral phenobarbital since he appeared to be in some mild alcohol withdrawal. Work-up argues againstDKA and AKA, and other than very slight alcohol-related elevations of AST and ALT, his work- up is otherwise unremarkable. He does have an alcohol level of 334, not unexpectedly for an alcoholic. Plan is for admission for detox. Lab Data Attestation: I reviewed the patient's lab results. Labs: Laboratory Results - last 24 hr 06/17/22 06/17/22 06/17/22 08:25 08:43 08:43 WBC 6.1 RBC 4.84 Hgb 15.3 Hct 43.8 MCV 90.5 MCH 31.6 MCHC 34.9 RDW Std Deviation 45.5 H RDW Coeff of Last 13.7 Plt Count 192 MPV 9.4 Immature Gran % (Auto) 0.500 Neut % (Auto) 52.8 Lymph % (Auto) 36.5 [place] % (Auto) 8.2 Eos % (Auto) 1.5 Baso % (Auto) 0.5 Absolute Neuts (auto) 3.2 Absolute Lymphs (auto) 2.22 Nucleated RBC % 0 PT 13.1 INR 1.0 Sodium Potassium Chloride Carbon Dioxide Anion Gap BUN Creatinine Estim Creat Clear Calc Est GFR (MDRD) Af Amer Est GFR (MDRD) Non-Af BUN/Creatinine Ratio Glucose Calcium Total Bilirubin AST ALT Alkaline Phosphatase Total Protein Albumin Globulin Albumin/Globulin Ratio Urine Opiates Screen NEGATIVE Urine Methadone Screen NEGATIVE Ur Barbiturates Screen NEGATIVE Ur Phencyclidine Scrn NEGATIVE Ur Amphetamines Screen NEGATIVE MDMA (Ecstasy) Screen NEGATIVE U Benzodiazepines Scrn NEGATIVE Urine Cocaine Screen NEGATIVE U Cannabinoids Screen NEGATIVE Ur Drug Screen Comment Ethyl Alcohol Acetone Level 06/17/22 06/17/22 06/17/22 08:43 08:43 08:43 WBC RBC Hgb Hct MCV MCH MCHC RDW Std Deviation RDW Coeff of Last Plt Count MPV Immature Gran % (Auto) Neut % (Auto) Lymph % (Auto) [place] % (Auto) Eos % (Auto) Baso % (Auto) Absolute Neuts (auto) Absolute Lymphs (auto) Nucleated RBC % PT INR Sodium 145 Potassium 3.9 Chloride 111 H Carbon Dioxide 26.0 Anion Gap 8 BUN 6 L Creatinine 0.83 Estim Creat Clear Calc 152.42 Est GFR (MDRD) Af Amer 144 Est GFR (MDRD) Non-Af 119 BUN/Creatinine Ratio 7.2 L Glucose 203 H Calcium 8.7 Total Bilirubin 0.30 AST 81 H ALT 74 H Alkaline Phosphatase 93 Total Protein 7.7 Albumin 3.9 Globulin 3.8 Albumin/Globulin Ratio 1.0 Urine Opiates Screen Urine Methadone Screen Ur Barbiturates Screen Ur Phencyclidine Scrn Ur Amphetamines Screen MDMA (Ecstasy) Screen U Benzodiazepines Scrn Urine Cocaine Screen U Cannabinoids Screen Ur Drug Screen Comment Ethyl Alcohol 334.0 H* Acetone Level NEGATIVE Discharge Plan Dx/Rx/DC Orders Clinical Impression: Alcohol dependence, Alcohol withdrawal Disposition Disposition: Acute Care Hospital [facility] What to do if you have Problems For any increased pain, shortness of breath, bleeding, nausea or vomiting, chestpain, or any unexpected problems, contact your Primary Care Provider. Call [facility] ([phone]) or report to the closest Emergency Room. Call 911 if necessary. 06/17/22 0952 <Electronically signed by Lavell Patel MD> Cosigner Signature (if applicable): CC: No Primary Care Physician ~ Signed [facility] Work Phone: [phone]) 946-389901-23-[address] Patel [facility] June 17, 2022 9:52am Note Date/Time June 17, 2022 8 :18am [facility] Medical Records Department [address] [place] [address] Emergency Department Summary 06/17/22 MR#: [id number] Acct: [id number] Name: JORGE HOLLIS Rep #:[id number] : 1995 27 From: Lavell Patel MD PCP: Care Physician,No Primary Status :REG ER Location: ED HPI History of Present Illness Chief Complaint: Substance Abuse Informant: patient Onset/Context/Timing Onset: - (a year or more) Timing: Intermittent Quality: shaky Location: all over Current Severity: Moderate Maximum Severity: Severe Worsened by: nothing Relieved by: drinking EtOH Associated Symptoms Associated Symptoms: Positive for vomiting* (several days); Negative for diarrhea*, fever*, rash*, seizure, palpatations, change in mental status, sex for drugs*, suicidal ideation, homicidal ideation or *HIV Risk Factors:Consider testing if last test > 6 months Narrative Narrative: Patient has been drinking between 12-24 beers/ 4-[place] per day for a long timehe estimates over a year. He has never been through detox before but is seekingit today. He states it is easier to continue drinking but he needs to stop because it is ruining his life, interpersonal relationships, work, financial situation, etc. He is not suicidal. He wants help. He is here with his motherwho did not force him to come. He is a type I diabetic, he has had some episodes of low blood sugars because he is not eating especially in the past week, but he is still using his insulin he has a pump. He denies any dyspnea. He has had vomiting for the last several days, but not a lot of it. Some abdominal cramps and feeling shaky when he has not drank, such as now but he denies any abdominal pain right now. Last drink was last night. Denies using any other substances or IV drugs. No confusion or seizure episodes. No known history of cirrhosis or other medical issues other than the diabetes and hypertension. [facility] Medical History Depression Diabetes mellitus type 1 High cholesterol HTN (hypertension) Presence of insulin pump Vitamin D deficiency Home Medications Insulin Aspart [Novolog] See Protocol subcut UD 12/29/14 [History Last Taken 09/25/21] atorvastatin 10 mg tablet 10 mg PO QHS cholesterol lowering 09/25/21 [History Last Taken 09/21/21] metoprolol succinate 25 mg capsule sprinkle, ext. release 24 hr 25 mg PO DAILY 09/25/21 [History Last Taken 09/23/21] Dexcom G6 Documentation Manager (blood-glucose meter,continuous) #1 ea 11/14/21 [Rx Last Taken Unknown] Dexcom G6 Sensor (blood-glucose sensor) #9 ea 11/14/21 [Rx Last Taken Unknown] Dexcom G6 Transmitter (blood-glucose transmitter) #1 ea 11/14/21 [Rx Last Taken Unknown] cholecalciferol (vitamin D3) 1,250 mcg (50,000 unit) capsule 1,250 mcg PO QWEEK #24 caps 11/14/21 [Rx Last Taken Unknown] insulin pump cart,automated,BT (Omnipod 5 G6 Pods (Gen 5) subcutaneous cartridge) #30 ea 11/14/21 [Rx Last Taken Unknown] insulin pump cartridge,automated dose,BT with controller subcutaneous (Omnipod 5G6 Intro Kit (Gen 5) subcutaneous cartridge with controller) #1 ea 11/14/21 [Rx Last Taken Unknown] ramipril 10 mg capsule 10 mg PO BID #180 caps 11/14/21 [Rx Last Taken Unknown] Novolog U-100 Insulin aspart 100 unit/mL subcutaneous solution (insulin aspart U-100) 100 unit continuous subcutaneous infusion .continuous #90 mL 05/29/22 [Rx Last Taken Unknown] mirtazapine 30 mg tablet 30 mg PO DAILY 06/01/22 [History Last Taken Unknown] nystatin 100,000 unit/mL oral suspension 4 ml PO Q6H Oral Karen 7 days #112 mL06/01/22 [Rx Last Taken Unknown] Allergy/AdvReac Type Severity Reaction Status Date / Time No Known Allergies Allergy Verified 06/17/22 07:49 Family History Mother Hypertension Surgical History No history of previous surgery Social History household members: none Smoking Status: Never smoker alcohol intake: current details: Will drink 2-5 drinks on the weekends. substance use type: does not use ROS ROS ED Constitutional Constitutional ED: Reports malaise and sweats; Denies chills or fever(s) Eyes Eyes: Denies change in vision or diplopia ENT ENT ED: Denies rhinorrhea or sore throat Cardiovascular Cardiovascular: Denies chest pain or palpitations Respiratory/Chest Respiratory/Chest: Denies cough or dyspnea Gastrointestinal Gastrointestinal: Reports abdominal pain, nausea and vomiting; Denies diarrhea Genitourinary Genitourinary ED: Denies dysuria or hematuria Musculoskeletal Musculoskeletal: Denies back pain or neck pain Integumentary Denies abscess or rash Neurologic Neurologic: Denies headache(s), paresthesias or weakness Psychiatric Psychiatric: Denies anxiety or suicidal thoughts EXAM Physical Exam Const Vital Signs: 06/17/22 07:49 06/17/22 08:00 Temperature 96.9 F L 96.8 F L Temperature Source Temporal Temporal Pulse Rate 106 H 88 Respiratory Rate 17 18 Blood Pressure 146/105 H 132/97 H Blood Pressure Mean 118 108 Blood Pressure Source Monitor Blood Pressure Position Semi-Fowlers Blood Pressure Location Right Arm Pulse Ox 99 97 Oxygen Delivery Method Room Air Room Air Positive well nourished and well developed General Appearance ED: well developed and NAD HEENT Reports moist mucous membranes normocephalic and atraumatic Eyes PERRL and EOMs intact bilaterally Neck full ROM and supple Resp normal respiratory effort and clear to auscultation bilaterally Cardio regular rate, regular rhythm and no murmurs Rate: tachycardic GI non-tender and non-distended Auscultation: normoactive bowel sounds Palpation: soft Back/Spine no CVA tenderness General Back: other FROM Extremity normal to inspection General Extremety ED: Negative for edema, pulses abnormal or tenderness General Extremity: Negative for edema or pulses abnormal Neuro oriented x3, CN's II-XII intact bilaterally and no sensory deficits noted Sensorium / Orientation: awake and alert Motor Exam: strength 5/5 throughout Psych Mood & Affect: anxious and tearful Skin no rashes or lesions noted and no wounds MDM MDM MDM Narrative Medical decision making narrative: Is 1I treated patient with IV fluids, Zofran, followed by oral phenobarbital since he appeared to be in some mild alcohol withdrawal. Work-up argues againstDKA and AKA, and other than very slight alcohol-related elevations of AST and ALT, his work- up is otherwise unremarkable. He does have an alcohol level of 334, not unexpectedly for an alcoholic. Plan is for admission for detox. Lab Data Attestation: I reviewed the patient's lab results. Labs: Laboratory Results - last 24 hr 06/17/22 06/17/22 06/17/22 08:25 08:43 08:43 WBC 6.1 RBC 4.84 Hgb 15.3 Hct 43.8 MCV 90.5 MCH 31.6 MCHC 34.9 RDW Std Deviation 45.5 H RDW Coeff of Last 13.7 Plt Count 192 MPV 9.4 Immature Gran % (Auto) 0.500 Neut % (Auto) 52.8 Lymph % (Auto) 36.5 [place] % (Auto) 8.2 Eos % (Auto) 1.5 Baso % (Auto) 0.5 Absolute Neuts (auto) 3.2 Absolute Lymphs (auto) 2.22 Nucleated RBC % 0 PT 13.1 INR 1.0 Sodium Potassium Chloride Carbon Dioxide Anion Gap BUN Creatinine Estim Creat Clear Calc Est GFR (MDRD) Af Amer Est GFR (MDRD) Non-Af BUN/Creatinine Ratio Glucose Calcium Total Bilirubin AST ALT Alkaline Phosphatase Total Protein Albumin Globulin Albumin/Globulin Ratio Urine Opiates Screen NEGATIVE Urine Methadone Screen NEGATIVE Ur Barbiturates Screen NEGATIVE Ur Phencyclidine Scrn NEGATIVE Ur Amphetamines Screen NEGATIVE MDMA (Ecstasy) Screen NEGATIVE U Benzodiazepines Scrn NEGATIVE Urine Cocaine Screen NEGATIVE U Cannabinoids Screen NEGATIVE Ur Drug Screen Comment Ethyl Alcohol Acetone Level 06/17/22 06/17/22 06/17/22 08:43 08:43 08:43 WBC RBC Hgb Hct MCV MCH MCHC RDW Std Deviation RDW Coeff of Last Plt Count MPV Immature Gran % (Auto) Neut % (Auto) Lymph % (Auto) [place] % (Auto) Eos % (Auto) Baso % (Auto) Absolute Neuts (auto) Absolute Lymphs (auto) Nucleated RBC % PT INR Sodium 145 Potassium 3.9 Chloride 111 H Carbon Dioxide 26.0 Anion Gap 8 BUN 6 L Creatinine 0.83 Estim Creat Clear Calc 152.42 Est GFR (MDRD) Af Amer 144 Est GFR (MDRD) Non-Af 119 BUN/Creatinine Ratio 7.2 L Glucose 203 H Calcium 8.7 Total Bilirubin 0.30 AST 81 H ALT 74 H Alkaline Phosphatase 93 Total Protein 7.7 Albumin 3.9 Globulin 3.8 Albumin/Globulin Ratio 1.0 Urine Opiates Screen Urine Methadone Screen Ur Barbiturates Screen Ur Phencyclidine Scrn Ur Amphetamines Screen MDMA (Ecstasy) Screen U Benzodiazepines Scrn Urine Cocaine Screen U Cannabinoids Screen Ur Drug Screen Comment Ethyl Alcohol 334.0 H* Acetone Level NEGATIVE Discharge Plan Dx/Rx/DC Orders Clinical Impression: Alcohol dependence, Alcohol withdrawal Disposition Disposition: Acute Care Hospital [facility] What to do if you have Problems For any increased pain, shortness of breath, bleeding, nausea or vomiting, chestpain, or any unexpected problems, contact your Primary Care Provider. Call [facility] ([phone]) or report to the closest Emergency Room. Call 911 if necessary. 06/17/22951 <Electronically signed by Lavell Patel MD> Cosigner Signature (if applicable): CC: No Primary Care Physician ~ Signed [facility] Work Phone: [phone]) 880-570103-05-2021 NotePatient Outreach (COVAMN) JORGE HOLLIS ([id number]) 1995 M Date Time Provider Department 07/28/20 CARINE SAVAGE During your visit today, we recorded the following information about you: Allergies As of Date: 07/28/2020 (No Known Allergies) Date Reviewed: 09/07/2019 Reviewed by: Patrick Rankin - Fully Assessed Order(s):SARS-COVID VACCINE 1ST DOSE APPT [[id number]] Order #: [id number] FUTURE Prescriptions as of 07/28/2020 Sig: INSULIN ASPART U-100 100 UNI* USE DIRECTED IN OMNIPOD UP* LISINOPRIL 5 MG TABLET Take 1 tablet by mouth once d* BLOOD SUGAR DIAGNOSTIC STRIPS check sugars 3 times per day * GLUCAGON (HUMAN RECOMBINANT) * one(1) mg as needed for hypog* ONDANSETRON HCL 8 MG TABLET Take 1 tablet by mouth every * GLUCOSE CHEWABLE TABLET Use as needed for low blood s* Problem List As Of Date 07/28/2020 Noted Resolved Type 1 diabetes mellitus (HCC) [E10.9] 09/06/2008 More... Insulin pump titration [Z46.81] 07/17/2016 Elevated BP without diagnosis of hypertension [*09/02/2017 Enlarged thyroid [E04.9] 09/02/[address] [Z96.41] 12/02/2017 Albuminuria [R80.9] 12/05/2017 Proteinuria [R80.9] 09/07/2019 Hypertension [I10] 09/07/2019 Encounter Status:Closed by FELISA GREENFIELD on 07/31/20[facility] Discharge summary Author Dr. Murphy [facility] June 20, 2022 1:23pm Note Date/Time June 20, 2022 1 :08pm [facility] Medical Records Department [address] [place], [place] [address] [address] Discharge Summary 06/20/22 1306 MR#: [id number] Acct: [id number] Name: JORGE HOLLIS Rep #:[id number] : 1995 27 From: Osiris Murphy DO PCP: Care Physician,No Primary Status :ADM IN [place] [facility] [place] Providers Date of Admission: 06/17/22 Date of Discharge: 06/20/22 Primary Care Physician: No Primary Care Phys Reason For Visit: ETOH DETOX Diagnosis Discharge Diagnosis (1) Dehydration: Status: Acute Code(s): E86.0 - Dehydration (2) Alcohol dependence: Status: Acute Code(s): F10.20 - Alcohol dependence, uncomplicated (3) Alcohol withdrawal: Status: Acute Code(s): F10.939 - Alcohol use, unspecified with withdrawal, unspecified (4) Alcoholic hepatitis: Status: Acute Code(s): K70.10 - Alcoholic hepatitis without ascites Medications at Discharge Home Medications Insulin Aspart [Novolog] See Protocol subcut UD dm 12/29/14 atorvastatin 10 mg tablet 10 mg PO QHS cholesterol lowering 09/25/21 metoprolol succinate 25 mg capsule sprinkle, ext. release 24 hr 25 mg PO DAILY blood pressure 09/25/21 Dexcom G6 Documentation Manager (blood-glucose meter,continuous) #1 ea 11/14/21 Dexcom G6 Sensor (blood-glucose sensor) #9 ea 11/14/21 Dexcom G6 Transmitter (blood-glucose transmitter) #1 ea 11/14/21 cholecalciferol (vitamin D3) 1,250 mcg (50,000 unit) capsule 1,250 mcg PO QWEEK #24 caps 11/14/21 insulin pump cart,automated,BT (Omnipod 5 G6 Pods (Gen 5) subcutaneous cartridge) #30 ea 11/14/21 insulin pump cartridge,automated dose,BT with controller subcutaneous (Omnipod 5 G6 Intro Kit (Gen 5) subcutaneous cartridge with controller) #1 ea 11/14/21 Novolog U-100 Insulin aspart 100 unit/mL subcutaneous solution (insulin aspart U-100) 100 unit continuous subcutaneous infusion .continuous #90 mL 05/29/22 bupropion HCl 100 mg tablet 100 mg PO BID depression 06/17/22 lorazepam 1 mg tablet 1 mg PO QHS anxiety 06/17/22 ramipril 10 mg capsule 10 mg PO BID blood pressures 06/17/22 Hospital Course Operations None Procedures None Summary of Care Provided Minutes Spent on Discharge: 36 Hospital Course: Mr. Hollis is a 27-year-old white male who presented to the emergency department at [facility] on 06/17/2019 2 in the morning for alcohol withdrawal. Patient reported that he is drinking for a long time. It sounds like its been 6 to 7 years. He indicated he drank anywhere from 12-24 beers daily as well as 4 [place]. He had never been through formal detox previously and felt that he needed to stop drinking because it is ruining his life, interpersonal relationships, work and financial situation. He is a type I diabetic with an insulin pump and follows with Dr. Ontiveros as an outpatient. At presentation he was complaining of some nausea and vomiting along with some abdominal cramping and was feeling shaky. His last drink was approximately 11-12 on the night prior to presentation. He denied any other substance abuse or tobacco abuse. Vital signs at the time of presentation demonstrated a temperature of 96.9, heart rate 106, blood pressure 146/105, respiratory rate 17, oxygen saturations are 99% room air.? CBC is unremarkable.? Coags are normal.? Chemistry panel is overall unremarkable other than mildly elevated blood glucose at 203.? Hemoglobin A1c was obtained and found to be 8.2.? Liver enzymes are elevated and alcohol type pattern with an AST of 81 and ALT of 74.? Urine tox screen is negative.? Ethyl alcohol level is 334.0. He was admitted to the medical floor and started on a phenobarbital taper with the CIWA protocol and as needed Ativan as well as other as needed medications for symptom control. He was on 200 mg of IV thiamine and folate supplementation during his hospital course. He did quite well overall. 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 His liver function improved. With regards to his hypoglycemia the basal rate on his pump had typically been 1.3-1.4. We did adjust his basal rate down to 1.1 continuously and his blood sugars were improved with this. He was monitored closely for DKA throughout his hospitalization. I did have conversation with his rebar worker prior to discharge and she suggested we continue on his basal rate at 1.1 and have him keep track of his sugars and call them on Friday morning and let them know what his sugars had been running since discharge. He was evaluated by 180 with the plan to follow-up at [facility] at the time of discharge. He indicated he has a upcoming appointment with Dr. Ontiveros and I recommended he keep this. He was discharged home in stable condition on 06/20/2022. Discharge diagnoses: Acute alcohol withdrawal Mild alcoholic hepatitis DM-1 Hypokalemia-resolved Hypertension Hyperlipidemia Anxiety Depression Overweight Physical Exam Const alert, oriented x3, no apparent distress, healthy appearing and well nourished Constitutional Narrative: Young overweight white male lying in bed, appears comfortable, nontoxic General Appearance: cooperative, comfortable, well kempt and well developed Orientation / Consciousness: awake, oriented to person, oriented to place and oriented to time Exam Limitations: no limitations Nutritional Appearance: overweight HEENT normocephalic, head/scalp atraumatic, hearing grossly normal bilaterally and moist oral mucous membranes HEENT Narrative: Mallampati 3, no thrush Eyes PERRL, EOMs intact bilaterally and conjunctivae normal Eyes Narrative: No scleral icterus Neck no lymphadenopathy and supple Neck Narrative: Trachea midline, no thyroid enlargement Resp normal respiratory effort, no retractions, no use of accessory muscles and clear to auscultation bilaterally Auscultation: Negative for crackles, rhonchi or wheezes Cardio regular rate, regular rhythm, S1 normal heart sound, S2 normal heart sound, no murmurs, no rub, no gallops and no clicks GI normal to inspection, nondistended, normoactive bowel sounds, soft to palpation and non-tender Extremity no clubbing, cyanosis or edema Extremity Narrative: 2+ pedal pulses Skin no rashes or lesions noted, no wounds, skin turgor normal, no jaundice, no petechiae and no mottling Neuro oriented x3, CN's II-XII intact bilaterally, moves all extremities and no focal motor deficits Neuro Narrative: Mild fine tremor noted Speech: speech normal Motor Exam: strength 5/5 throughout Psych affect normal Psych Narrative: Seems calm, very pleasant Weight / BMI Weight Weight: 89.3 kg Body Mass Index (BMI) 25.9 ABG / Lab / Microbiology Data Result Diagrams: 06/17/22 08:43 06/20/22 06:05 Laboratory: Laboratory Results - last 24 hr 06/20/22 06:05: Sodium 137, Potassium 4.2, Chloride 101, Carbon Dioxide 29.0, Anion Gap 7, BUN 8, Creatinine 0.86, Estim Creat Clear Calc 147.10, Est GFR (MDRD) Af Amer 138, Est GFR (MDRD) Non-Af 114, BUN/Creatinine Ratio 9.3 L, Glucose 94, Calcium 9.1 D/C Instructions Discharge Diet: 1800 Calorie Control Diet Discharge Activity: Return to Normal Activity Return to work on: 06/21/22 Meaningful Use Info Meaningful Use Diagnoses (Choose all that apply): None applicable Discharge Plan Admission Admit Date/Time: 06/17/22 09:43 Primary Reason for Your Visit: EtOH dependence Attending Provider: Osiris Murphy Primary Care Provider: Care Physician,No Primary Instructions Additional Instructions / Restrictions: 1. Keep basal rate at 1 around the clock and keep track of your blood sugars. Call Dr. Ontiveros's office on Friday and update her with blood sugars to address any changes in needed basal rate 2. Follow-up with [facility] for outpatient addiction management as discussed with addiction medicine Discharge Orders/Prescriptions Prescriptions: Continued (DME) Omnipod 5 G6 Intro Kit (Gen 5) Cartridge See Rx Instructions .Route Qty: 1 0RF Rx Instructions: As directed (DME) Omnipod 5 G6 Pods (Gen 5) Cartridge See Rx Instructions .Route Qty: 30 1RF Rx Instructions: 1 pod q 72 hours (DME) Dexcom G6 Documentation Manager Misc See Rx Instructions .Route Qty: 1 0RF Rx Instructions: As directed (DME) Dexcom G6 Sensor Device See Rx Instructions .Route Qty: 9 1RF Rx Instructions: 1 sensor q 10 days (DME) Dexcom G6 Transmitter Device See Rx Instructions .Route Qty: 1 1RF Rx Instructions: 1 transmitter q 90 days cholecalciferol (vitamin D3) 1,250 mcg (50,000 unit) capsule 1,250 mcg PO QWEEK Qty: 24 0RF insulin aspart U-100 [Novolog U-100 Insulin aspart] 100 unit/mL solution 100 unit continuous subcutaneous infusion .continuous Qty: 90 1RF Insulin Aspart [Novolog] 100 UNIT/ML Ml See Protocol subcut UD Protocol: 6. Sliding Scale Insulin Custom Condition: mg/dl range Dose/Route: Number of Units Protocol Text: Custom Sliding Scale Label Comments: INSULIN PUMP- VARYING HOURLY BASAL RATE from 6423-0809 1.3 units [id number] 1.35 units 5467-8590 1.4 units Rx Instructions: PT HAS INSULIN PUMP atorvastatin 10 mg Tablet 10 mg PO QHS metoprolol succinate 25 mg Capsule,Sprinkle,Er 24hr 25 mg PO DAILY ramipril 10 mg capsule 10 mg PO BID bupropion HCl 100 mg tablet 100 mg PO BID Label Comments: TAKE ONE TABLET BY MOUTH TWICE A DAY lorazepam 1 mg tablet 1 mg PO QHS Referrals / Follow Up: Paul Ontiveros MD [Med Staff - Courtesy Staff] - See Referral Note (Keep current scheduled appointment and call blood sugars to Dr. Ontiveros on Friday) Care Physician,No Primary [Primary Care Provider] - [facility] Doctor,Out of [Non-Staff] - Disposition Disposition (needs filled in before D/C Order can be placed): Home, Self Care Charges/Coding Visit Charges Inpatient E&M: 60991 Disch Hosp >30min 06/20/22 1323 <Electronically signed by Osiris Murphy DO> Cosigner Signature (if applicable): CC: Dr. Osiris Murphy DO; No Primary Care Physician~ Signed [facility] Work Phone: Discharge summary Author Dr. Murphy [facility] July 16, 2022 11:19am Note Date/Time July 16, 2022 11:05am [facility] Medical Records Department [address] [place] [address] Discharge Summary 07/16/22 1105 MR#: [id number] Acct: [id number] Name: JORGE HOLLIS Rep #:[id number] : 1995 27 From: Osiris Murphy DO PCP: Status:ADM IN Location: ICU [facility]20 4-1 Providers Date of Admission: 07/15/22 Date of Discharge: 07/16/22 Reason For Visit: DKA Diagnosis Discharge Diagnosis (1) Diabetic keto-acidosis: Status: Acute Code(s): E11.10 - Type 2 diabetes mellitus with ketoacidosis without coma (2) History of diabetes mellitus: Status: Acute Code(s): Z86.39 - Personal history of other endocrine, nutritional and metabolic disease (3) High anion gap metabolic acidosis: Status: Acute Code(s): E87.29 - Other acidosis (4) Acute kidney injury: Status: Acute Code(s): N17.9 - Acute kidney failure, unspecified Medications at Discharge Home Medications Insulin Aspart [Novolog] See Protocol subcut UD dm 12/29/14 atorvastatin 10 mg tablet 10 mg PO QHS cholesterol lowering 09/25/21 metoprolol succinate 25 mg capsule sprinkle, ext. release 24 hr 25 mg PO DAILY blood pressure 09/25/21 Dexcom G6 Documentation Manager (blood-glucose meter,continuous) #1 ea 11/14/21 Dexcom G6 Sensor (blood-glucose sensor) #9 ea 11/14/21 Dexcom G6 Transmitter (blood-glucose transmitter) #1 ea 11/14/21 cholecalciferol (vitamin D3) 1,250 mcg (50,000 unit) capsule 1,250 mcg PO QWEEK #24 caps 11/14/21 insulin pump cart,automated,BT (Omnipod 5 G6 Pods (Gen 5) subcutaneous cartridge) #30 ea 11/14/21 insulin pump cartridge,automated dose,BT with controller subcutaneous (Omnipod 5G6 Intro Kit (Gen 5) subcutaneous cartridge with controller) #1 ea 11/14/21 Novolog U-100 Insulin aspart 100 unit/mL subcutaneous solution (insulin aspart U-100) 100 unit continuous subcutaneous infusion .continuous #90 mL 05/29/22 bupropion HCl 100 mg tablet 100 mg PO BID depression 06/17/22 lorazepam 1 mg tablet 1 mg PO QHS anxiety 06/17/22 ramipril 10 mg capsule 10 mg PO BID blood pressures 06/17/22 Hospital Course Operations None Procedures None Summary of Care Provided Minutes Spent on Discharge: 37 Hospital Course: Mr. Hollis is a 27-year-old white male with a history of type 1 diabetes who is typically on insulin pump. He presented to the emergency department on 07/15/2022 as he was concerned he was going into DKA. He reported he ran out of pods for his glucometer on Friday and had ordered new pods. These pods were to be overnighted however they did not arrive. He lost his parents insurance when he turned 27 at the end of April and has transition to his own independent insurance however with the transition his medical supplies has not been smooth thus the delay on supply delivery. He reported on presentation that he was in his normal state of health until Friday when he ran out of his insulin pods. [facility] Friday and was using that and intermittently using a sliding scale however he was feeling unwell and was concerned he might be going in DKA. The 24 hours prior to presentation he had vomiting and was not able to tolerate any p.o. He reported on admission he had not really had any water over the weekend. CBC at the time of presentation showed signs of hemoconcentration but was otherwise unremarkable. His metabolicprofile showed a serum glucose of 285 with a sodium of 133, chloride 96, serum bicarb of 10, anion gap of 27, BUN of 20 and serum creatinine of 1.59. Serum osmolality was elevated and he had acetone in his blood. ABG showed a respiratory early compensated metabolic acidosis with a pH of 7.37/PCO2 of 23.1/PO2 of 104 and an oxygen saturation of 98% on room air. He was placed on an insulin drip and admitted to the ICU with the DKA protocol. By the a.m. of 07/16/2021 his DKA had resolved with resolution of his anion gap and marked improvement in his serum bicarbonate. His potassium was found to be low at 3.1 and he was replaced with oral potassium. He was transition to subcu insulin offthe drip and an oral diet was started. Renal function had almost normalized. Hemoglobin A1c was obtained and found to be 8.5 at the time of admission. I discussed the case with his primary rebar worker, Dr. Ontiveros, and she recommended that we discharge him and have him stop at her office on his way outfrom the hospital to obtain insulin samples so we could utilize these until his pods, in the mail. He has called the pod supplying company and they have indicated they are currently just verify having insurance. They have not even yet been shipped. I suspect it will be another few days until he has pods to reconnect to his insulin pump. He was discharged home in stable condition with complete resolution of his DKA and tolerating p.o. diet without any difficulty. I did discuss with him the need to follow-up with Dr. Ontiveros and he voiced understanding state he was up on the way out of the door. He is to follow-up with his primary care physician as needed. Discharge diagnoses: DKA-resolved Anion gap metabolic acidosis-resolved Hypokalemia KATI-resolved Pseudohyponatremia DM-1 Hypertension Hyperlipidemia History of alcohol abuse Anxiety Depression Physical Exam Const alert, oriented x3, no apparent distress, average body habitus and well nourished Constitutional Narrative: Young white male sitting up in bed eating a large breakfast, watching television, appears comfortable General Appearance: cooperative, comfortable, well kempt and well developed Orientation / Consciousness: awake, oriented to person, oriented to place and oriented to time Exam Limitations: no limitations HEENT normocephalic, head/scalp atraumatic, hearing grossly normal bilaterally and moist oral mucous membranes HEENT Narrative: Mallampati 2, no thrush Eyes PERRL, EOMs intact bilaterally and conjunctivae normal Eyes Narrative: No scleral icterus Neck no lymphadenopathy and supple Neck Narrative: Trachea midline, no thyroid enlargement Resp normal respiratory effort, no retractions, no use of accessory muscles and clearto auscultation bilaterally Auscultation: Negative for crackles, rhonchi or wheezes Cardio regular rate, regular rhythm, S1 normal heart sound, S2 normal heart sound, no murmurs, no rub, no gallops and no clicks GI normal to inspection, nondistended, normoactive bowel sounds, soft to palpation and non-tender Extremity no clubbing, cyanosis or edema Extremity Narrative: 2+ pedal and radial pulses Skin no rashes or lesions noted, no wounds, skin turgor normal and no jaundice Neuro oriented x3, moves all extremities and no focal motor deficits Speech: speech normal Motor Exam: strength 5/5 throughout Psych affect normal Psych Narrative: Pleasant, appropriately interactive Weight / BMI Weight Weight: 83.7 kg Body Mass Index (BMI) 24.3 ABG / Lab / Microbiology Data Result Diagrams: 07/15/22 22:05 07/16/22 04:10 Laboratory: Laboratory Results - last 24 hr 07/15/22 22:05: WBC 11.9 H, RBC 5.34, Hgb 16.6 H, Hct 48.3, MCV 90.4, MCH 31.1, MCHC 34.4, RDW Std Deviation 42.1, RDW Coeff of Last 12.8, Plt Count 163, MPV 9.8, Immature Gran % (Auto) 0.400, Neut % (Auto) 77.3 H, Lymph % (Auto) 8.3 L, [place] % (Auto) 12.8 H, Eos % (Auto) 0.1, Baso % (Auto) 1.1 H, Absolute Neuts (auto) 9.2 H, Absolute Lymphs (auto) 0.99, Nucleated RBC % 0, Differential Comment SCANNED, Diff Path Review September07/15/22 22:05: Sodium 133 L, Potassium 3.8, Chloride 96 L, Carbon Dioxide 10.0 L, Anion Gap 27 H, BUN 20 H, Creatinine 1.59 H, Estim Creat Clear Calc 79.56, Est GFR (MDRD) Af Amer 68, Est GFR (MDRD) Non-Af 56 L, BUN/Creatinine Ratio 12.6, Glucose 285 H, Calcium 9.8 07/15/22 22:05: Acetone Level MODERATE H 07/15/22 22:05: Magnesium 2.2 07/15/22 22:05: Serum Osmolality 310 H 07/15/22 23:49: POC Glucose 219 H 07/16/22 01:00: Ethyl Alcohol < 3.0 07/16/22 01:00: Hemoglobin A1c 8.5 H 07/16/22 01:00: Sodium 137, Potassium 4.7, Chloride 103, Carbon Dioxide 15.0 L, Anion Gap 19 H, BUN 17, Creatinine 1.28, Estim Creat Clear Calc 98.83, Est GFR (MDRD) Af Amer 87, Est GFR (MDRD) Non-Af 72, BUN/Creatinine Ratio 13.3, Glucose 168 H, Calcium 8.5 07/16/22 01:03: POC Glucose 168 H 07/16/22 01:59: POC Glucose 119 H 07/16/22 03:01: POC Glucose 155 H 07/16/22 04:10: Sodium 134 L, Potassium 3.1 L, Chloride 102, Carbon Dioxide 19.0L, Anion Gap 13, BUN 14, Creatinine 1.26, Estim Creat Clear Calc 100.40, Est GFR(MDRD) Af Amer 89, Est GFR (MDRD) Non-Af 73, BUN/Creatinine Ratio 11.1, Glucose 462 H*, Calcium 7.7 L, Total Bilirubin 0.60, AST 27, ALT 48, Alkaline Phosphatase 75, Total Protein 5.9 L, Albumin 3.1 L, Globulin 2.8, Albumin/Globulin Ratio 1.1 07/16/22 04:15: POC Glucose 248 H 07/16/22 05:15: POC Glucose 114 H 07/16/22 06:00: POC Glucose 96 07/16/22 07:03: POC Glucose 84 07/16/22 08:20: POC Glucose 87 ABG: ABG 07/16/22 01:35 Specimen Type ART Sample Site R Radial pH 7.37 Bicarbonate Actual 13.3 L Total CO2 14 Base Excess -12 L O2 Saturation 98 O2 % 21 ABG pCO2 23.1 L ABG pO2 104 H Rambo Test Positive O2 Delivery Device Room Air D/C Instructions Discharge Diet: Low fat / Low cholesterol and 1800 Calorie Control Diet Discharge Activity: Return to Normal Activity Meaningful Use Info Meaningful Use Diagnoses (Choose all that apply): None applicable Discharge Plan Admission Admit Date/Time: 07/15/22 23:29 Primary Reason for Your Visit: Diabetic ketoacidosis Attending Provider: Osiris Murphy Consulting Providers: Teresa Cedillo Discharge Orders/Prescriptions Prescriptions: Continued (DME) Omnipod 5 G6 Intro Kit (Gen 5) Cartridge See Rx Instructions .Route Qty: 1 0RF Rx Instructions: As directed (DME) Omnipod 5 G6 Pods (Gen 5) Cartridge See Rx Instructions .Route Qty: 30 1RF Rx Instructions: 1 pod q 72 hours (DME) Dexcom G6 Documentation Manager Misc See Rx Instructions .Route Qty: 1 0RF Rx Instructions: As directed (DME) Dexcom G6 Sensor Device See Rx Instructions .Route Qty: 9 1RF Rx Instructions: 1 sensor q 10 days (DME) Dexcom G6 Transmitter Device See Rx Instructions .Route Qty: 1 1RF Rx Instructions: 1 transmitter q 90 days cholecalciferol (vitamin D3) 1,250 mcg (50,000 unit) capsule 1,250 mcg PO QWEEK Qty: 24 0RF insulin aspart U-100 [Novolog U-100 Insulin aspart] 100 unit/mL solution 100 unit continuous subcutaneous infusion .continuous Qty: 90 1RF Insulin Aspart [Novolog] 100 UNIT/ML Ml See Protocol subcut UD Protocol: 6. Sliding Scale Insulin Custom Condition: mg/dl range Dose/Route: Number of Units Protocol Text: Custom Sliding Scale Label Comments: INSULIN PUMP- VARYING HOURLY BASAL RATE from 1761-2103 1.3 units 5342-0288 1.35 units 2985-7226 1.4 units Rx Instructions: PT HAS INSULIN PUMP atorvastatin 10 mg Tablet 10 mg PO QHS metoprolol succinate 25 mg Capsule,Sprinkle,Er 24hr 25 mg PO DAILY ramipril 10 mg capsule 10 mg PO BID bupropion HCl 100 mg tablet 100 mg PO BID Label Comments: TAKE ONE TABLET BY MOUTH TWICE A DAY lorazepam 1 mg tablet 1 mg PO QHS Referrals / Follow Up: Paul Ontiveros MD [Med Staff - Courtesy Staff] - See Referral Note (stop by office today after discharge to obtain subq insulin) NOT,DEFINED [Non-Staff] - Disposition Disposition (needs filled in before D/C Order can be placed): Home, Self Care Charges/Coding Visit Charges Inpatient E&M: 07893 Disch Hosp >30min 07/16/22 1119 <Electronically signed by Osiris Murphy DO> Cosigner Signature (if applicable): CC: Dr. Osiris Murphy DO~ Signed [facility] Work Phone: Discharge summary Author Colten Crystal [facility] March 23, 2023 9:15am Note Date/Time March 23, 2023 9 :13am [facility] Medical Records Department [address] [place] [address] Instructions for Home/Discharge Instructions 03/23/23912 MR#: [id number] Acct: [id number] Name: JORGE HOLLIS Rep #:[id number] : 1995 From: Colten ovalle MD PCP: DEXTER DANIEL Status:ADM IN Discharge Instructions Diet Discharge Diet: Carb Control Diet Activity Discharge Activity: Return to Normal Activity Dressing / Incision Call your doctor if you observe: Fever of 101 or Higher, Shortness of breath, Dizziness, Fainting spells, Swelling in the ankles, Chest pain and Increased palpitations (irregular heartbeat) Follow Up Care Test Results: Test results from this visit will be discussed in further detail at your follow- up appointment, if applicable. Discharge Plan Admission Admit Date/Time: 03/20/23 04:25 Attending Provider: Colten Crystal Primary Care Provider: DEXTER DANIEL Consulting Providers: William Bowers Discharge Orders/Prescriptions Prescriptions: Continued (DME) Omnipod 5 G6 Intro Kit (Gen 5) Cartridge See Rx Instructions .Route Qty: 1 0RF Rx Instructions: As directed (DME) Omnipod 5 G6 Pods (Gen 5) Cartridge See Rx Instructions .Route Qty: 30 1RF Rx Instructions: 1 pod q 72 hours (DME) Dexcom G6 Documentation Manager Misc See Rx Instructions .Route Qty: 1 0RF Rx Instructions: As directed (DME) Dexcom G6 Sensor Device See Rx Instructions .Route Qty: 9 1RF Rx Instructions: 1 sensor q 10 days (DME) Dexcom G6 Transmitter Device See Rx Instructions .Route Qty: 1 1RF Rx Instructions: 1 transmitter q 90 days cholecalciferol (vitamin D3) 1,250 mcg (50,000 unit) capsule 1,250 mcg PO QWEEK Qty: 24 0RF insulin aspart U-100 [Novolog U-100 Insulin aspart] 100 unit/mL solution 100 unit continuous subcutaneous infusion .continuous Qty: 90 1RF Insulin Aspart [Novolog] 100 UNIT/ML Ml See Protocol subcut UD Protocol: 6. Sliding Scale Insulin Custom Condition: mg/dl range Dose/Route: Number of Units Protocol Text: Custom Sliding Scale Patient Comments: INSULIN PUMP- VARYING HOURLY BASAL RATE from 8919-3586 1.3 units 5192-1952 1.35 units 5111-9850 1.4 units Rx Instructions: PT HAS INSULIN PUMP atorvastatin 10 mg Tablet 10 mg PO QHS metoprolol succinate 25 mg Capsule,Sprinkle,Er 24hr 25 mg PO DAILY ramipril 10 mg capsule 10 mg PO BID bupropion HCl 100 mg tablet 100 mg PO BID Hold Instructions: pt states he hasn't been taking Patient Comments: TAKE ONE TABLET BY MOUTH TWICE A DAY lorazepam 1 mg tablet 1 mg PO QHS Referrals / Follow Up: DEXTER DANIEL [Other] DEXTER DANIEL [Other] Disposition Disposition (needs filled in before D/C Order can be placed): Home, Self Care 03/23/23914<Electronically signed by Colten Crystal MD>Colten Crystal MD CC: Dr. William Bowers MD; DEXTER DANIEL ~ Signed [facility] Work Phone: Discharge summary Author Colten Crystal [facility] March 23, 2023 9:22am Note Date/Time March 23, 2023 9 :20am [facility] Medical Records Department [address] [place] [id number] Discharge Summary 03/23/23915 MR#: [id number] Acct: [id number] Name: JORGE HOLLIS Rep #:[id number] : 1995 27 From: Colten ovalle MD PCP: DEXTER DANIEL Status:ADM IN [facility] Prov[facility] Date of Admission: 03/20/23 Primary Care Physician: DEXTER DANIEL Reason For Visit: DESIRE FOR DETOXIFICATION Diagnosis Discharge Diagnosis (1) Desire for detoxification: Status: Acute (2) ETOH abuse: Status: Acute Code(s): F10.10 - Alcohol abuse, uncomplicated (3) Diabetes mellitus type 1: Status: Acute Code(s): E10.9 - Type 1 diabetes mellitus without complications Qualifiers: Diabetes mellitus complication status: with hypoglycemia Diabetes mellitus complication detail: without coma Qualified Code(s): E10.649 - Type 1 diabetes mellitus with hypoglycemia without coma (4) Presence of insulin pump: Status: Acute Code(s): Z96.41 - Presence of insulin pump (external) (internal) Plan 1. Alcohol withdrawal/elevated LFT's/anxiety/depression ? Continue with the alcohol withdrawal protocol ? We will have him follow-up with 180 to develop a discharge plan ? LFTs have normalized, likely related to alcohol ? Continue with his home mental health medications ? We will plan for Vivitrol on discharge 2. DM 1 ? He is supposed to be wearing insulin pump however this caused him to be in significant hyperglycemia likely secondary to the fact that he is on a carb controlled diet which she likely does not follow at home ? Will place him on long-acting insulin with sliding scale insulin ? Accu-Cheks ACHS ? We will monitor and make adjustments as necessary 3. HTN/HLD ? Blood pressure are stable ? Continue with his home blood pressure medications will monitor and make adjustments ? Continue with his Lipitor DVT: Ambulation Medications at Discharge Home Medications Insulin Aspart [Novolog] See Protocol subcut UD dm 12/29/14 atorvastatin 10 mg tablet 10 mg PO QHS cholesterol lowering 09/25/21 metoprolol succinate 25 mg capsule sprinkle, ext. release 24 hr 25 mg PO DAILY blood pressure 09/25/21 Dexcom G6 Documentation Manager (blood-glucose meter,continuous) #1 ea 11/14/21 Dexcom G6 Sensor (blood-glucose sensor) #9 ea 11/14/21 Dexcom G6 Transmitter (blood-glucose transmitter) #1 ea 11/14/21 cholecalciferol (vitamin D3) 1,250 mcg (50,000 unit) capsule 1,250 mcg PO QWEEK #24 caps 11/14/21 insulin pump cart,automated,BT (Omnipod 5 G6 Pods (Gen 5) subcutaneous cartridge) #30 ea 11/14/21 insulin pump cartridge,automated dose,BT with controller subcutaneous (Omnipod 5 G6 Intro Kit (Gen 5) subcutaneous cartridge with controller) #1 ea 11/14/21 Novolog U-100 Insulin aspart 100 unit/mL subcutaneous solution (insulin aspart U-100) 100 unit continuous subcutaneous infusion .continuous #90 mL 05/29/22 bupropion HCl 100 mg tablet 100 mg PO BID depression 06/17/22 lorazepam 1 mg tablet 1 mg PO QHS anxiety 06/17/22 ramipril 10 mg capsule 10 mg PO BID blood pressures 06/17/22 Hospital Course Operations None Procedures None Summary of Care Provided Minutes Spent on Discharge: 35 Hospital Course: Per HPI:JORGE HOLLIS, is a 27 M with a significant history of hypertension; diabetes mellitus on insulin pump; and alcoholism who presents to the emergency department for alcohol detoxification. Of note patient reports that he has been drinking for about 6 years. He reports drinking a lot each day. He reports drinking any alcoholic drink he can lay hands on ; and this includes beer, whisky and any other hard liquor. Last time he drank was about 2 hours prior to presentation. At time of evaluation he was not having any withdrawal symptoms but he is sure he will be withdrawing later on. He reports a one history of seizures. He is unsure whether his previous one time seizures was from alcohol withdrawal or not. Hospital course: 1. Alcohol withdrawal/elevated LFTs/anxiety/depression?27-year-old male presents to the hospital requesting detox from alcohol. He states that he has been drinking heavily throughout the last 6 years and has been through detox before. LFTs were elevated but these improved with abstinence. We will continue with his home mental health medications and I did encourage him to follow-up with 180 for outpatient rehab. We did discuss the role of Vivitrol on discharge however he was unsure and elected not to proceed. I discussed with him the plan for discharge today he expressed understanding of the risk benefits of going home and would like to go home today. 2. Type 1 diabetes, hypertension, hyperlipidemia are all chronic medical conditions which complicate his care. His home medications were continued where appropriate Physical Exam Narrative General: Alert, Oriented x3, Cooperative, No apparent distress HEENT: Atraumatic, PERRLA, EOMI, Normocephalic Oral: Moist Mucosa Neck: Supple, No JVD Lungs: Clear to auscultation, Normal air movement, No rhonchi, No wheeze, No rales Cardiovascular: Regular rate, Regular Rhythm, Normal S1, Normal S2, No murmurs Abdomen: Soft, Non Tender, Non-Distended, No Hepato-splenomegaly Extremities: No edema, Capillary Refill Less than 3 Seconds Skin: No rashes, No breakdown Musculoskeletal: No Tenderness to Palpation of Joints or Extremities Neurological: Cranial nerves II-XII grossly intact, Motor Exam 5/5 strength throughout, Sensory exam intact to light touch and pain Psych/Mental Status: Normal Affect, Appropriate Weight / BMI Weight Weight: 183 lb 10.321 oz Body Mass Index (BMI) 24.2 ABG / Lab / Microbiology Data 03/21/23 06:10 Laboratory: Laboratory Results - last 24 hr 03/22/23 11:16: POC Glucose 219 H 03/22/23 15:56: POC Glucose 264 H 03/22/23 21:53: POC Glucose 320 H 03/23/23 05:22: POC Glucose 186 H D/C Instructions Discharge Diet: Carb Control Diet Call your doctor if you observe: Fever of 101 or Higher, Shortness of breath, Dizziness, Fainting spells, Swelling in the ankles, Chest pain and Increased palpitations (irregular heartbeat) Meaningful Use Info Meaningful Use Diagnoses (Choose all that apply): None applicable Discharge Plan Admission Admit Date/Time: 03/20/23 04:25 Attending Provider: Colten Crystal Primary Care Provider: DEXTER DANIEL Consulting Providers: William Bowers Discharge Orders/Prescriptions Prescriptions: Continued (DME) Omnipod 5 G6 Intro Kit (Gen 5) Cartridge See Rx Instructions .Route Qty: 1 0RF Rx Instructions: As directed (DME) Omnipod 5 G6 Pods (Gen 5) Cartridge See Rx Instructions .Route Qty: 30 1RF Rx Instructions: 1 pod q 72 hours (DME) Dexcom G6 Documentation Manager Misc See Rx Instructions .Route Qty: 1 0RF Rx Instructions: As directed (DME) Dexcom G6 Sensor Device See Rx Instructions .Route Qty: 9 1RF Rx Instructions: 1 sensor q 10 days (DME) Dexcom G6 Transmitter Device See Rx Instructions .Route Qty: 1 1RF Rx Instructions: 1 transmitter q 90 days cholecalciferol (vitamin D3) 1,250 mcg (50,000 unit) capsule 1,250 mcg PO QWEEK Qty: 24 0RF insulin aspart U-100 [Novolog U-100 Insulin aspart] 100 unit/mL solution 100 unit continuous subcutaneous infusion .continuous Qty: 90 1RF Insulin Aspart [Novolog] 100 UNIT/ML Ml See Protocol subcut UD Protocol: 6. Sliding Scale Insulin Custom Condition: mg/dl range Dose/Route: Number of Units Protocol Text: Custom Sliding Scale Patient Comments: INSULIN PUMP- VARYING HOURLY BASAL RATE from 7218-3466 1.3 units 5881-3166 1.35 units 5534-5234 1.4 units Rx Instructions: PT HAS INSULIN PUMP atorvastatin 10 mg Tablet 10 mg PO QHS metoprolol succinate 25 mg Capsule,Sprinkle,Er 24hr 25 mg PO DAILY ramipril 10 mg capsule 10 mg PO BID bupropion HCl 100 mg tablet 100 mg PO BID Hold Instructions: pt states he hasn't been taking Patient Comments: TAKE ONE TABLET BY MOUTH TWICE A DAY lorazepam 1 mg tablet 1 mg PO QHS Referrals / Follow Up: DEXTER DANIEL [Other] DEXTER DANIEL [Other] Disposition Disposition (needs filled in before D/C Order can be placed): Home, Self Care Charges/Coding Visit Charges Inpatient E&M: 52506 Disch Hosp >30min 03/23/23921 <Electronically signed by Colten Crystal MD> Cosigner Signature (if applicable): CC: Dr. Colten Crystal MD; DEXTER DANIEL~ Signed [facility] Work Phone: Evaluation note* Diagnosis Onset Date Resolution Status Acute hyperkalemia acute Acute renal failure acute Diabetic ketoacidosis associ ated with type 1 diabetes mellitus acute DKA (diabetic ketoacidoses) acute Leukocytosis acute Sinus tachycardia acute [facility] Work Phone: Evaluation note* Diagnosis Onset Date Resolution Status HTN (hypertension) chronic [facility] Work Phone: Evaluation noteNo assessment information available [facility] Work Phone: Evaluation note* Diagnosis Onset Date Resolution Status Diabetes mellitus type 1 acu te Presence of insulin pump acu te HTN (hypertension) chronic [facility] Work Phone: Evaluation note* Diagnosis Onset Date Resolution Status Diabetes mellitus type 1 acu te Presence of insulin pump acu te HTN (hypertension) chronic Alcohol dependence acute Alcohol withdrawal acute [facility] Work Phone: Evaluation note* Diagnosis Onset Date Resolution Status Diabetes mellitus type 1 acu te Presence of insulin pump acu te HTN (hypertension) chronic Alcohol dependence acute Alcohol withdrawal acute Alcoholic hepatitis acute Dehydration acute [facility] Work Phone: Evaluation note* Diagnosis Onset Date Resolution Status Diabetes mellitus type 1 acu te Presence of insulin pump acu te HTN (hypertension) chronic Alcohol withdrawal resolved Alcoholic hepatitis resolved Dehydration resolved [facility] Work Phone: Evaluation note* Diagnosis Onset Date Resolution Status Diabetes mellitus type 1 acu te Presence of insulin pump acu te HTN (hypertension) chronic Alcohol withdrawal resolved Alcoholic hepatitis resolved Dehydration resolved Acute kidney injury acute Diabetic keto-acidosis acute High anion gap metabolic acidosis acute History of diabetes mellitus acute [facility] Work Phone: Evaluation note* Diagnosis Annual visit for general adult medical examination with abnormal findings- Primary 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) Current mild episode of major depressive disorder without prior episode (CMS/HCC) Hypertension, unspecified type DM type 2 with diabetic mixed hyperlipidemia (CMS/HCC) GERD without esophagitis Esophageal reflux documented in this encounter [facility] Work Phone: Evaluation note* Diagnosis Onset Date Resolution Status Desire for detoxification ac [place] Diabetes mellitus type 1 acu te ETOH abuse acute Presence of insulin pump acu te [facility] Work Phone: Evaluation note* Diagnosis Alcohol abuse- Primary Nondependent alcohol abuse, unspecified drinking behavior Fatigue due to depression 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) Current mild episode of major depressive disorder without prior episode (CMS/HCC) Hypertension, unspecified type DM type 2 with diabetic mixed hyperlipidemia (CMS/HCC) Abdominal pain, unspecified abdominal location GERD without esophagitis Esophageal reflux documented in this encounter [facility] Work Phone: Evaluation note* Diagnosis Onset Date Resolution Status Diabetes mellitus type 1 chr onic HTN (hypertension) chronic Presence of insulin pump chr onic [facility] Work Phone: Evaluation note* Diagnosis Annual visit for general adult medical examination with abnormal findings- Primary 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) Current mild episode of major depressive disorder without prior episode (CMS-HCC) Hypertension, unspecified type DM type 2 with diabetic mixed hyperlipidemia (Multi) GERD without esophagitis Esophageal reflux Alcohol abuse- Primary Nondependent alcohol abuse, unspecified drinking behavior Fatigue due to depression 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) Current mild episode of major depressive disorder without prior episode (CMS-HCC) Hypertension, unspecified type DM type 2 with diabetic mixed hyperlipidemia (Multi) Abdominal pain, unspecified abdominal location GERD without esophagitis Esophageal reflux Annual visit for general adult medical examination with abnormal findings- Primary Chronic kidney disease, unspecified CKD stage Abdominal pain, unspecified abdominal location 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) Current mild episode of major depressive disorder without prior episode (CMS-HCC) DM type 2 with diabetic mixed hyperlipidemia (Multi) Alcohol abuse Nondependent alcohol abuse, unspecified drinking behavior Hypertension, unspecified type GERD without esophagitis Esophageal reflux Fatty liver- Primary Other chronic nonalcoholic liver disease Elevated uric acid in blood DM type 2 with diabetic mixed hyperlipidemia (Multi) Gout, unspecified cause, unspecified chronicity, unspecified site Alcohol abuse Nondependent alcohol abuse, unspecified drinking behavior GERD without esophagitis Esophageal reflux Primary hypertension Unspecified essential hypertension Hypertension, unspecified type DKA, type 1, not at goal- Primary DKA, type 1, not at goal Acute pancreatitis, unspecified complication status, unspecified pancreatitis type ([facility]) Hypertension, unspecified type documented in this encounter [facility] Work Phone: Evaluation note* Diagnosis Annual visit for general adult medical examination with abnormal findings- Primary 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) Current mild episode of major depressive disorder without prior episode (CMS-HCC) Hypertension, unspecified type DM type 2 with diabetic mixed hyperlipidemia (Multi) GERD without esophagitis Esophageal reflux Alcohol abuse- Primary Nondependent alcohol abuse, unspecified drinking behavior Fatigue due to depression 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) Current mild episode of major depressive disorder without prior episode (CMS-HCC) Hypertension, unspecified type DM type 2 with diabetic mixed hyperlipidemia (Multi) Abdominal pain, unspecified abdominal location GERD without esophagitis Esophageal reflux Annual visit for general adult medical examination with abnormal findings- Primary Chronic kidney disease, unspecified CKD stage Abdominal pain, unspecified abdominal location 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) Current mild episode of major depressive disorder without prior episode (CMS-HCC) DM type 2 with diabetic mixed hyperlipidemia (Multi) Alcohol abuse Nondependent alcohol abuse, unspecified drinking behavior Hypertension, unspecified type GERD without esophagitis Esophageal reflux documented in this encounter [facility] Work Phone: Evaluation note* Diagnosis Annual visit for general adult medical examination with abnormal findings- Primary 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) Current mild episode of major depressive disorder without prior episode (CMS-HCC) Hypertension, unspecified type DM type 2 with diabetic mixed hyperlipidemia (Multi) GERD without esophagitis Esophageal reflux Alcohol abuse- Primary Nondependent alcohol abuse, unspecified drinking behavior Fatigue due to depression 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) Current mild episode of major depressive disorder without prior episode ([facility]-HCC) Hypertension, unspecified type DM type 2 with diabetic mixed hyperlipidemia (Multi) Abdominal pain, unspecified abdominal location GERD without esophagitis Esophageal reflux Annual visit for general adult medical examination with abnormal findings- Primary Chronic kidney disease, unspecified CKD stage Abdominal pain, unspecified abdominal location 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) Current mild episode of major depressive disorder without prior episode (CMS-HCC) DM type 2 with diabetic mixed hyperlipidemia (Multi) Alcohol abuse Nondependent alcohol abuse, unspecified drinking behavior Hypertension, unspecified type GERD without esophagitis Esophageal reflux Abdominal pain, unspecified abdominal location documented in this encounter [facility] Work Phone: Evaluation note* Diagnosis Annual visit for general adult medical examination with abnormal findings- Primary 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) Current mild episode of major depressive disorder without prior episode ([facility]-HCC) Hypertension, unspecified type DM type 2 with diabetic mixed hyperlipidemia (Multi) GERD without esophagitis Esophageal reflux Alcohol abuse- Primary Nondependent alcohol abuse, unspecified drinking behavior Fatigue due to depression 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) Current mild episode of major depressive disorder without prior episode ([facility]-HCC) Hypertension, unspecified type DM type 2 with diabetic mixed hyperlipidemia (Multi) Abdominal pain, unspecified abdominal location GERD without esophagitis Esophageal reflux Annual visit for general adult medical examination with abnormal findings- Primary Chronic kidney disease, unspecified CKD stage Abdominal pain, unspecified abdominal location 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) Current mild episode of major depressive disorder without prior episode (CMS-HCC) DM type 2 with diabetic mixed hyperlipidemia (Multi) Alcohol abuse Nondependent alcohol abuse, unspecified drinking behavior Hypertension, unspecified type GERD without esophagitis Esophageal reflux Chronic kidney disease, unspecified CKD stage documented in this encounter [facility] Work Phone: Evaluation note* Diagnosis Annual visit for general adult medical examination with abnormal findings- Primary 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) Current mild episode of major depressive disorder without prior episode (CMS-HCC) Hypertension, unspecified type DM type 2 with diabetic mixed hyperlipidemia (Multi) GERD without esophagitis Esophageal reflux Alcohol abuse- Primary Nondependent alcohol abuse, unspecified drinking behavior Fatigue due to depression 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) Current mild episode of major depressive disorder without prior episode ([facility]-HCC) Hypertension, unspecified type DM type 2 with diabetic mixed hyperlipidemia (Multi) Abdominal pain, unspecified abdominal location GERD without esophagitis Esophageal reflux Annual visit for general adult medical examination with abnormal findings- Primary Chronic kidney disease, unspecified CKD stage Abdominal pain, unspecified abdominal location 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) Current mild episode of major depressive disorder without prior episode (CMS-HCC) DM type 2 with diabetic mixed hyperlipidemia (Multi) Alcohol abuse Nondependent alcohol abuse, unspecified drinking behavior Hypertension, unspecified type GERD without esophagitis Esophageal reflux Fatty liver- Primary Other chronic nonalcoholic liver disease Elevated uric acid in blood DM type 2 with diabetic mixed hyperlipidemia (Multi) Gout, unspecified cause, unspecified chronicity, unspecified site Alcohol abuse Nondependent alcohol abuse, unspecified drinking behavior GERD without esophagitis Esophageal reflux Primary hypertension Unspecified essential hypertension Hypertension, unspecified type documented in this encounter [facility] Work Phone: History and physical note Author Dr. Cedillo [facility] July 15, 2022 11:43pm Note Date/Time July 15, 2022 11:43pm [facility] Medical Records Department [address] [place] [address] H&P Exam - Hospitalist 07/15/22 [id number] MR#: [id number] Acct: [id number] Name: JORGE HOLLIS Rep #:[id number] : 1995 27 From: Teresa Cedillo MD PCP: NOT,DEFINED Status:ADM IN Location: ICU CVICU20 4-1 HPI - General General Date of Admission: 07/15/22 Date of Service: 07/15/22 HPI Narrative JORGE HOLLIS, is a 27-year-old male with history of type 1 diabetes on an insulin pump, hypertension, alcohol abuse recently here for detox, who presentedto [facility] 07/15/2022 feeling as though he was going into DKA. He ran out of pods for his glucometer on Friday and glucoses have been in 2-3 100s. Has had some nausea and vomiting. In ED he was found to have a gap of 27and a bicarb of 10 with a glucose of 285 and he had moderate acetone as well as an KATI. He was bolused with fluid and started on insulin drip and hospitalist consulted for admission. Eval patient with family member at bedside, reportedlyhe had been in his usual health until Friday when he ran out of insulin pods, hepicked up long-acting insulin from [facility] Hospitalt on Friday and was using that and sliding scale but was waxing and waning with feeling unwell and several times thought he may be going into DKA then over the past 24 hours or so he began vomiting and has not been able to tolerate p.o. and had vomited in the double digits and has a somewhat sore throat, had an episode of abdominal pain on the but this resolved and did not return. Denies other complaints at this time. Reports he has not drank in over a week. [facility] Medical History Alcohol abuse Alcohol dependence Anxiety Depression Diabetes mellitus type 1 High cholesterol HTN (hypertension) Presence of insulin pump Vitamin D deficiency Home Medications Insulin Aspart [Novolog] See Protocol subcut UD dm 12/29/14 [History Last Taken 09/25/21] atorvastatin 10 mg tablet 10 mg PO QHS cholesterol lowering 09/25/21 [History Last Taken 09/21/21] metoprolol succinate 25 mg capsule sprinkle, ext. release 24 hr 25 mg PO DAILY blood pressure 09/25/21 [History Last Taken 09/23/21] Dexcom G6 Documentation Manager (blood-glucose meter,continuous) #1 ea 11/14/21 [Rx Last Taken Unknown] Dexcom G6 Sensor (blood-glucose sensor) #9 ea 11/14/21 [Rx Last Taken Unknown] Dexcom G6 Transmitter (blood-glucose transmitter) #1 ea 11/14/21 [Rx Last Taken Unknown] cholecalciferol (vitamin D3) 1,250 mcg (50,000 unit) capsule 1,250 mcg PO QWEEK #24 caps 11/14/21 [Rx Last Taken Unknown] insulin pump cart,automated,BT (Omnipod 5 G6 Pods (Gen 5) subcutaneous cartridge) #30 ea 11/14/21 [Rx Last Taken Unknown] insulin pump cartridge,automated dose,BT with controller subcutaneous (Omnipod 5G6 Intro Kit (Gen 5) subcutaneous cartridge with controller) #1 ea 11/14/21 [Rx Last Taken Unknown] Novolog U-100 Insulin aspart 100 unit/mL subcutaneous solution (insulin aspart U-100) 100 unit continuous subcutaneous infusion .continuous #90 mL 05/29/22 [Rx Last Taken Unknown] bupropion HCl 100 mg tablet 100 mg PO BID depression 06/17/22 [History Last Taken Unknown] lorazepam 1 mg tablet 1 mg PO QHS anxiety 06/17/22 [History Last Taken Unknown] ramipril 10 mg capsule 10 mg PO BID blood pressures 06/17/22 [History Last Taken Unknown] Allergy/AdvReac Type Severity Reaction Status Date / Time No Known Allergies Allergy Verified 07/03/22 15:42 Family History Mother Hypertension Surgical History No history of previous surgery Social History household members: none housing: apartment Smoking Status: Never smoker alcohol intake: current alcohol intake frequency: 3 or more drinks per day Alcohol type: beer and hard liquor substance use type: does not use ROS ROS Narrative General: Denies fever or chills, generally feels unwell HENT: Denies headache, denies stuffy nose, throat slightly sore from throwing up EYES: Denies changes in vision Resp: Denies cough, denies shortness of breath Cardiac: Denies chest pain GI: Abdominal pain resolved but was having nausea and vomiting but is not vomited since 1 hour prior to ED : Denies changes in urination Extremity: Denies swelling MSK: Some generalized weakness Neuro: Denies any numbness, denies tingling Heme: Denies any bleeding or bruising Skin: Denies rashes Psychiatric: No complaints voiced Vital Signs Vital Signs Vital Signs: 07/15/22 21:19 Temperature 96.7 F L Temperature Source Temporal Pulse Rate 116 H Respiratory Rate 16 Blood Pressure 177/159 H Blood Pressure Mean 165 Pulse Ox 97 Oxygen Delivery Method Room Air Weight Weight: 81.102 kg Body Mass Index (BMI) 23.6 Physical Exam Narrative General: Alert, oriented, no apparent distress HEENT: Atraumatic, normocephalic Eyes: Anicteric, normal conjunctiva, extraocular movements grossly intact Neck: Supple Respiratory: Clear to auscultation bilaterally, normal respiratory effort Cardiovascular: Regular rate and rhythm GI: Soft, nontender, nondistended Extremities: No edema Musculoskeletal: Moving all extremities Neuro: No overt focal neurological deficits Skin: No rashes appreciated Psych: Cooperative Results Lab / Micro Data Result Diagrams: 07/15/22 22:05 07/15/22 22:05 Labs: Laboratory Results - last 24 hr 07/15/22 22:05: WBC 11.9 H, RBC 5.34, Hgb 16.6 H, Hct 48.3, MCV 90.4, MCH 31.1, MCHC 34.4, RDW Std Deviation 42.1, RDW Coeff of Last 12.8, Plt Count 163, MPV 9.8, Immature Gran % (Auto) 0.400, Neut % (Auto) 77.3 H, Lymph % (Auto) 8.3 L, [place] % (Auto) 12.8 H, Eos % (Auto) 0.1, Baso % (Auto) 1.1 H, Absolute Neuts (auto) 9.2 H, Absolute Lymphs (auto) 0.99, Nucleated RBC % 0, Differential Comment SCANNED, Diff Path Review September07/15/22 22:05: Sodium 133 L, Potassium 3.8, Chloride 96 L, Carbon Dioxide 10.0 L, Anion Gap 27 H, BUN 20 H, Creatinine 1.59 H, Estim Creat Clear Calc 79.56, Est GFR (MDRD) Af Amer 68, Est GFR (MDRD) Non-Af 56 L, BUN/Creatinine Ratio 12.6, Glucose 285 H, Calcium 9.8 07/15/22 22:05: Acetone Level MODERATE H Assessment & Plan Assessment/Plan (1) Diabetic keto-acidosis: (2) History of diabetes mellitus: (3) High anion gap metabolic acidosis: (4) Acute kidney injury: PLAN: Plan #HIAGMA 2/2 DKA in setting of type 1 diabetes mellitus usually on insulin pump -DKA secondary to running out of insulin pods on Friday and ineffective long- acting with sliding scale regimen -Had moderate acetone and a gap of 27 with a glucose of 285 and CO2 of 10.0 -We will start DKA protocol with insulin drip, BMPs every 4, glucose checks -3 L fluid boluses and maintenance ordered -We will monitor in the ICU -Follows with Dr. Ontiveros as an outpatient #KATI -Possibly secondary to dehydration from his DKA -We will hydrate and follow BMP in a.m. hold lisinopril #Alcohol abuse -Was here 06/17 for alcohol detox, reports not drinking for over a week but family member was in the room -We will obtain EtOH level and CIWA at this time, once family member no longer present can reattempt to discuss this and if no recent alcohol use can DC -Thiamine folate #Hypertension -Fairly hypertensive in ED, on ramipril at home but will hold this given kidney function and will add as needed medication and continue beta-danielle -Labetalol as needed #DVT ppx: Lovenox, SCDs Teresa Cedillo MD Time spent in the patient's overall evaluation,decision-making process, review of diagnostic data, adjustment of management, discussion with other providers, nursing nursing and ancillary staff involved in patient's care documentation, 60minutes Charges/Coding Visit Charges Inpatient E&M: 53820 Init Hosp L2 07/15/22 2343 <Electronically signed by Teresa Cedillo MD> Cosigner Signature (if applicable): CC: DEFINED NOT; Dr. Teresa Cedillo MD~ Signed [facility] Work Phone: History of Present illness Narrative* This is a 26-year-old patient who had a history of diabetes obesity hypertension hyperlipidemia chronic fatigue syndrome * Diabetes advised endocrine dietitian ophthalmology evaluation * Hypertension aspirin ramipril * Hyperlipidemia low-fat diet Lipitor * I spent 15 minutes obtaining and discussing depression screening using pHq-2 questions with patientdocumented in the chart treatment plan discussI spent 15 minutes [id number] I spent 15 minutes [id number]. This patient discussing cardiovascular risk and behavior therapy of nutrition choices, exercise, and elevation of the habits contributing to risk. We agree on plan how they may be able to reduce the current cardiovascular risk for patient with risk calculation more than 10% aspirin use was discussed and encouraged unless no one allergy or increased discomfort bleeding or contraindication use of aspirin refer patient to Dr. Gabriela Lyn rebar worker and Dr. Chang construction estimator [facility] Work Phone: History of Present illness Narrative* This is a 26-year-old patient have a hypertension obesity chronic fatigue syndrome depression diabetes type 1 complaining of a sore throat cough congestion headache onset acutely duration 2 weeks progressed intermittently aggravated by change of the weather acid reflux obesity post viral infection went to urgent care given medicine doesn't get any better * Problem #1 upper respiratory infection immunocompromised host with the tonsillitis given Rocephin 1g intramuscular amoxicillin 503 times a day probiotic twice a day salt water gargle * Hypertension Toprol-XL 25 mg a day * Proteinuria 10 mg ramipril * Hyperlipidemia Lipitor 10 mg a day * Diabetes continue Novolin pump * Obesity BMI 27 diet and exercise * Sent for the blood test follow-up in 6 to 8 weeks [facility] Work Phone: History of Present illness Narrative* 27-year-old patient will have a type 1 diabetes hypertension hyperlipidemia anxiety depression moderate alcohol intake because of the stress disorder * Negative for jaundice hallucination or delirium or chemical abuse * Family history of mental health problem substance problem * Seen by endocrinology recently diagnosis of the oral thrush hypokalemia uncontrolled diabetes side effect medication * Negative for suicide * Negative for jaundice * Negative for bleeding [facility] Work Phone: History of Present illness Narrative* 27-year-old patient of hypertension hyperlipidemia diabetes alcohol abuse multiple hospitalization because of alcohol withdrawal and detox program and a DKA * Seen by psych and rebar worker * Because of underlying mental health problem and other problem not able to function well * Negative for suicide * Negative for drug abuse * Review hospital record discussed with the patient and family and [facility] Work Phone: Hospital Discharge instructions Additional Instructions Avoid use of mirtazapine, and have your medication changed secondary to its side effects. Perform nystatin oral swish and swallow 4 times a day for the next 7 days and follow-up with your primary care provider.[facility] Work Phone: Hospital Discharge instructions* Attachments The following attachments cannot be sent through Care Everywhere. * Diabetes and diet (Montenegrin) * Diabetic Ketoacidosis Discharge Instructions ([place]in) [facility] Work Phone: Reason for referral (narrative)* Consultation (Routine) - Authorized Specialty Diagnoses / Procedures Referred By Lurdes puentes Referred To Contact Primary Care Procedures Follow Up In Primary Care Dexter Daniel MD [address], [place] [address] Referral ID Status Reason Start Date Expiration Date V isits Requested Visits Authorized [id number] Authorized 10/22/2022 04/20/2023 1 1 * Consultation (Routine) - Authorized Specialty Diagnoses / Procedures Referred By Lurdes puentes Referred To Contact Primary Care Procedures Follow Up In Primary Care Dexter Daniel MD [address], [place] [id number] Referral ID Status Reason Start Date Expiration Date V isits Requested Visits Authorized [id number] Authorized 10/22/2022 04/20/2023 1 1 [facility] Work Phone: Summary Purpose Family History No Family History Records FoundUnknown Family Member Name Dates Details Family history of thyroid di sease: Mother, Sister(V18.19, Z83.49) Status:Active Unknown Family Member Name Dates Details Family history of thyroid di sease: Mother, Sister(V18.19, Z83.49) Status:Active Unknown Family Member Name Dates Details Family history of thyroid di sease: Mother, Sister(V18.19, Z83.49) Status:Active Relationship Condition Age at Onset Recorded Date/T kelsie mother Hypertension Unknown Unknown Family Member Name Dates Details Family history of thyroid di sease: Mother, Sister(V18.19, Z83.49) Status:Active Unknown Family Member Name Dates Details Family history of thyroid di sease: Mother, Sister(V18.19, Z83.49) Status:Active Advance Directives No Advanced Directives Records Found Advance Directive Response Recorded Date/ Time Advance Directives No December 29 015 2:43pm Living Will No September 25, 2021 8: 30pm Power of Finisher Operator No September 25, 2021 8:30pm Advance Directive Response Recorded Date/ Time Advance Directives No December 29 2:43pm Living Will No January 29 10:12am Power of Finisher Operator No January 29, 2022 10:12am Advance Directive Response Recorded Date/ Time Advance Directives No December 29 015 1:43pm Living Will No May 03 1:29pm Power of Finisher Operator No May 03, 2022 1:29pm Advance Directive Response Recorded Date/ Time Advance Directives No December 29 015 1:43pm Living Will No June 01 2:26pm Power of Finisher Operator No June 01 023 2:26pm Advance Directive Response Recorded Date/ Time Advance Directives No December 29 015 1:43pm Living Will No June 17 7:58am Power of Finisher Operator No June 17, 2022 7:58am Advance Directive Response Recorded Date/ Time Advance Directives No December 29 015 1:43pm Living Will No June 17 11:46am Power of Finisher Operator No June 17, 2022 11:46am Advance Directive Response Recorded Date/ Time Advance Directives No December 29 015 1:43pm Living Will No July 03 5:50pm Power of Finisher Operator No July 03, 2022 5:50pm Advance Directive Response Recorded Date/ Time Advance Directives No December 29 015 1:43pm Living Will No February 20th, 2 023 10:09pm Power of Finisher Operator No July 15, 2022 10:09pm Advance Directive Response Recorded Date/ Time Advance Directives No December 29 2 015 1:43pm Living Will No July 16 023 12:37am Power of Finisher Operator No July 16, 2022 12:37am Advance Directive Response Recorded Date/ Time Advance Directives No December 29 015 2:43pm Living Will No March 20 10:28am Power of Finisher Operator No March 20, 2023 10:28am Advance Directive Response Recorded Date/ Time Advance Directives No December 29 2:43pm Living Will No September 04, 2023 8:06am Power of Finisher Operator No September 03 8:06am Date Activated Date Inactivated Comments 03/01/2024 9:28 PM Question Answer Comments Plan of Care: Code Status Discussion Completed Decision Maker: Patient Date Activated Date Inactivated Comments 03/01/2024 9:28 PM 03/01/2024 9:28 PM Question Answer Comments Plan of Care: Code Status Discussion Completed Decision Maker: Patient Chief Complaint follow up on diabetessore throat, headaches, 2 weeks nowanxiety and depression* follow up * FMLA papers Chief Complaint and Reason for Visit Chief Complaint DKA, HYPERKALEMIA Reason for Visit Acute hyperkalemia Acute renal failure Diabetic ketoacidosis associated with type 1 diabetes mellitus DKA (diabetic ketoacidoses) Leukocytosis Sinus tachycardia Chief Complaint DKA, HYPERKALEMIA DKA, HYPERKALEMIA DKA, HYPERKALEMIA Reason for Visit Acute hyperkalemia Acute renal failure Diabetic ketoacidosis associated with type 1 diabetes mellitus DKA (diabetic ketoacidoses) Leukocytosis Sinus tachycardia Chief Complaint Diabetes VOMITING Reason for Visit HTN (hypertension) Chief Complaint VOMITING HYPOGLYCEMIA Chief Complaint HYPOGLYCEMIA 7 m fu MED REACTION Reason for Visit Diabetes mellitus ty pe 1 Presence of insulin pump HTN (hypertension) Chief Complaint HYPOGLYCEMIA 7 m fu MED REACTION ETOH DETOX Reason for Visit Diabetes mellitus ty pe 1 Presence of insulin pump HTN (hypertension) Alcohol dependence Alcohol withdrawal Chief Complaint HYPOGLYCEMIA 7 m fu MED REACTION ETOH DETOX ETOH DETOX ETOH DETOX ETOH DETOX ETOH DETOX Reason for Visit Diabetes mellitus ty pe 1 Presence of insulin pump HTN (hypertension) Alcohol dependence Alcohol withdrawal Alcoholic hepatitis Dehydration Chief Complaint HYPOGLYCEMIA 7 m fu MED REACTION ETOH DETOX ETOH DETOX ETOH DETOX ETOH DETOX ETOH DETOX allergic reaction Reason for Visit Diabetes mellitus ty pe 1 Presence of insulin pump HTN (hypertension) Alcohol withdrawal Alcoholic hepatitis Dehydration Chief Complaint HYPOGLYCEMIA 7 m fu MED REACTION ETOH DETOX ETOH DETOX ETOH DETOX ETOH DETOX ETOH DETOX allergic reaction DKA DKA Reason for Visit Diabetes mellitus ty pe 1 Presence of insulin pump HTN (hypertension) Alcohol withdrawal Alcoholic hepatitis Dehydration Acute kidney injury Diabetic keto-acidosis High anion gap metabolic acidosis History of diabetes mellitus Chief Complaint HYPOGLYCEMIA 7 m fu MED REACTION ETOH DETOX ETOH DETOX ETOH DETOX ETOH DETOX ETOH DETOX allergic reaction DKA DKA DKA Reason for Visit Diabetes mellitus ty pe 1 Presence of insulin pump HTN (hypertension) Alcohol withdrawal Alcoholic hepatitis Dehydration Acute kidney injury Diabetic keto-acidosis High anion gap metabolic acidosis History of diabetes mellitus Chief Complaint DESIRE FOR DETOXIFIC ATION DESIRE FOR DETOXIFICATION DESIRE FOR DETOXIFICATION DESIRE FOR DETOXIFICATION Reason for Visit Desire for detoxific ation Diabetes mellitus type 1 ETOH abuse Presence of insulin pump Chief Complaint 4 M FU, RS 06/13 n/v Reason for Visit Diabetes mellitus ty pe 1 HTN (hypertension) Presence of insulin pump Reason for Referral Specialty Diagnoses / Procedures Referred By Contac t Referred To Contact Radiology Diagnoses Abdominal pain, unspecified abdominal location Procedures US biliary system Dexter Daniel MD [address] [place] [address] Referral ID Status Reason Start Date Expiration Date Visits Requested Visits Authorized [id number] Authorized Perform Procedure 06/09/2023 06/08/2024 1 1 Referral ID Status Reason Start Date Expiration Date Visits Requested Visits Authorized [id number] Authorized Perform Procedure 12/08/2023 12/07/2024 1 1 Specialty Diagnoses / Procedures Referred By Contac t Referred To Contact Radiology Diagnoses Chronic kidney disease, unspecified CKD stage Procedures US renal complete Dexter Daniel MD [address] [place] [address] Referral ID Status Reason Start Date Expiration Date Visits Requested Visits Authorized [id number] Authorized Perform Procedure 12/08/2023 12/07/2024 1 1 Specialty Diagnoses / Procedures Referred By Contac t Referred To Contact Cardiology Diagnoses Chronic kidney disease, unspecified CKD stage Abdominal pain, unspecified abdominal location 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) Current mild episode of major depressive disorder without prior episode (CMS-HCC) DM type 2 with diabetic mixed hyperlipidemia (Multi) Alcohol abuse Procedures Echocardiogram Stress Test DC ECHO TTHRC R-T 2D W/WO M-MODE COMPLETE REST&ST Dexter Daniel MD [address] [place] [id number] Referral ID Status Reason Start Date Expiration Date Visits Requested Visits Authorized [id number] Pending Review Perform Procedure 12/08/2023 12/07/2024 1 1 Specialty Diagnoses / Procedures Referred By Contkiera t Referred To Contact Gastroenterology Diagnoses Chronic kidney disease, unspecified CKD stage Abdominal pain, unspecified abdominal location 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) Current mild episode of major depressive disorder without prior episode (CMS-HCC) DM type 2 with diabetic mixed hyperlipidemia (Multi) Alcohol abuse Procedures Colonoscopy Screening; Average Risk Patient DC COLONOSCOPY FLX DX W/COLLJ SPEC WHEN PFRMD DC COLON CA SCRN NOT HI RSK IND DC COLORECTAL SCRN; HI RISK IND DC COLONOSCOPY W/BIOPSY SINGLE/MULTIPLE DC COLSC FLX W/RMVL OF TUMOR POLYP LESION SNARE TQ DC COLSC FLX W/REMOVAL LESION BY HOT BX FORCEPS Dexter Daniel MD [address] [place] [address] Referral ID Status Reason Start Date Expiration Date V isits Requested Visits Authorized [id number] Pending Review 12/08/2023 12/07/2024 1 1 Additional Source Comments (unrecognized sect ion and content) No Status Records FoundNo Status Records FoundNo Status Records FoundNo Status Records FoundNo Status Records FoundNo Status Records FoundNo Status Records FoundNo Status Records FoundNo Status Records Found INFORMATION SOURCE (unrecogn ized section and content) DATE CREATED AUTHOR 11/13/2017 [facility] DATE CREATED AUTHOR AUTHOR'S ORGANIZ ATION 03/09/2018 [facility] DATE CREATED AUTHOR AUTHOR'S ORGANIZ ATION 07/13/2021 [facility] DATE CREATED AUTHOR AUTHOR'S ORGANIZ ATION 07/23/2022 [facility] DATE CREATED AUTHOR AUTHOR'S ORGANIZ ATION 12/17/2023 [facility] DATE CREATED AUTHOR AUTHOR'S ORGANIZ ATION 03/03/2024 [facility] DATE CREATED AUTHOR AUTHOR'S ORGANIZ ATION 03/05/2024 [facility] DATE CREATED AUTHOR AUTHOR'S ORGANIZ ATION 03/18/[address] [facility] DATE CREATED AUTHOR AUTHOR'S ORGANIZ ATION 01/18/2025 [facility] Goals (unrecognized section and content) Goals may be documented in a n alternate sectionGoals may be documented in an alternate sectionGoals may be documented in an alternate sectionGoals may be documented in an alternate sectionGoals may be documented in an alternate sectionGoals may be documented in an alternate sectionGoals may be documented in an alternate section Care Teams (unrecognized sec tion and content) Team Status: Active Member Role Status Dates Dr. Yrn Pollock MD Family Provider Active Team Status: Inactive Member Role Status Dates Dr. Paul Ontiveros MD Attending Provider Active Team Status: Active Member Role Status Dates Dr. Lavell Patel MD Emergency Provider Active No Primary Care Physician Primary Care Provider Active Dr. Osiris Murphy DO Admit Provider, Att ending Provider, Other Provider Active Team Status: Active Member Role Status Dates DEFINED NOT Primary Care Provider Active Dr. Jed Hopper MD Emergency Provider Active Dr. Teresa Cedillo MD Admit Provider, Attending Provid er, Other Provider Active Team Status: Active Member Role Status Dates Dr. Jed Hopper MD Emergency Provider Active Dr. Teresa Cedillo MD Admit Provider, Other Provider A ctive Dr. Osiris Murphy DO Attending Provider, Other Provide r Active Team Status: Inactive Member Role Status Dates Dr. Dipesh Corrales DO Attending Provider, Emergency Provider Active Fredy Renteria Primary Care Provider Active Team Status: Inactive Member Role Status Dates Ammon Nice MD Attending Provider, Emergency Provid er Active No Primary Care Physician Primary Care Provider Active Team Status: Inactive Member Role Status Dates Dr. Lavell Patel MD Emergency Provider Active No Primary Care Physician Primary Care Provider Active Dr. Osiris Murphy DO Admit Provider, Attending Provide r Active Team Status: Inactive Member Role Status Dates Dr. Dipesh Corrales DO Attending Provider, Emergency Provider Active Fredy Renteria MD Primary Care Provider Active Team Status: Inactive Member Role Status Dates Dr. Jed Hopper MD Emergency Provider Active Dr. Teresa Cedillo MD Admit Provider, Other Provider A ctive Dr. Osiris Murphy DO Attending Provider Active Team Status: Active Member Role Status Dates Dr. Yrn Pollock MD Family Provider Active No Primary Care Physician Primary Care Provider Active Team Status: Active Member Role Status Dates Dr. Lavell Patel MD Emergency Provider Active No Primary Care Physician Primary Care Provider Active Dr. Osiris Murphy DO Admit Provider, Attending Provide r Active Team Status: Active Member Role Status Dates Dr. Yrn Pollock MD Family Provider [facility] Provider Active Team Status: Inactive Member Role Status Dates Dr. Dipesh Corrales DO Emergency Provider Active Dexter [facility] Primary Care Provider Active Team Status: Active Member Role Status Dates Dr. Yrn Pollock MD Family Provider Active DEFINED NOT Primary Care Provider Active Team Status: Active Member Role Status Dates DEFINED NOT Primary Care Provider Active Dr. Jed Hopper MD Emergency Provider Active Dr. Teresa Cedillo MD Admit Provider, Attending Provid er Active Progress Clerk Relationship Specialty Start Date End Date Dexter Daniel MD [address], [facility] [address] [place] [address] PCP - General 07/10/20 Team Status: Active Member Role Status Dates Dr. Yrn Pollock MD Family Provider [facility] Provider Active Team Status: Active Member Role Status Dates Dr. Dafne Cornell MD Emergency Provider Active FREDY RENTERIA Primary Care Provider Active Dr. William Bowers MD Admit Provider, Other Provide r Active Dr. Colten Crystal MD Attending Provider, Other Provider Active Team Status: Inactive Member Role Status Dates Dr. Dafne Cornell MD Emergency Provider Active FREDY RENTERIA Primary Care Provider Active Dr. William Bowers MD Admit Provider, Other Provide r Active Dr. Colten Crystal MD Attending Provider Active Progress Clerk Relationship Specialty Start Date End Date Dexter Daniel MD [address] [place] [address] PCP - MMO ACO PCP 07/24/22 Dexter Daniel MD [address] [facility] [place] [address] PCP - General Internal Medicine 06/04/23 Team Status: Inactive Member Role Status Dates Dr. Lavell Patel MD Emergency Provider Active DEXTER DELGADO, FREDY Primary Care Provider Active Progress Clerk Relationship Specialty Start Date End Date Dexter Daniel MD [address] [facility] [place] [address] PCP - General Internal Medicine 06/04/23 Progress Clerk Relationship Specialty Start Date End Date Dexter Daniel MD [address] [facility] [place] [address] PCP - General Internal Medicine 06/04/23 Progress Clerk Relationship Specialty Start Date End Date Dexter Daniel MD [address] [facility] [place] [address] PCP - General Internal Medicine 06/04/23 Progress Clerk Relationship Specialty Start Date End Date Dexter Dainel MD [address] [facility] [place] [address] PCP - General Internal Medicine 06/04/23 Reason for Visit (unrecogniz ed section and content) Reason Comments Annual Exam Reason Comments Fatigue All the time Alcohol Problem More now Reason Comments Vomiting Nausea Abdominal Pain Pt is type 1 diabeti c. Has been vomiting since Friday afternoon. Has been unable to keep down even clear liquids and unable to take his oral meds. (BP meds) Specialty Diagnoses / Procedures Referred By Lurdes t Referred To Contact Diagnoses DKA, type 1, not at goal Acute pancreatitis, unspecified complication status, unspecified pancreatitis type ([facility]) Procedures Dafne Bedoya MD [address] [place] [id number] [facility] [address] [place] [phone] Referral ID Status Reason Start Date Expiration Date Visits Re quested Visits Authorized [id number] 1 Reason Comments Annual Exam GI Problem Vomiting, pain, week ly occurrence. Fatigue Specialty Diagnoses / Procedures Referred By Contac t Referred To Contact Radiology Diagnoses Abdominal pain, unspecified abdominal location Procedures US biliary system Dexter Daniel MD [address] [place] [address] Referral ID Status Reason Start Date Expiration Date Visits Requested Visits Authorized [id number] Authorized Perform Procedure 12/08/2023 12/07/2024 1 1 Specialty Diagnoses / Procedures Referred By Contkiera t Referred To Contact Radiology Diagnoses Chronic kidney disease, unspecified CKD stage Procedures US renal complete Dexter Daniel MD [address] [place] [id number] Referral ID Status Reason Start Date Expiration Date Visits Requested Visits Authorized [id number] Authorized Perform Procedure 12/08/2023 12/07/2024 1 1 Reason Comments Follow-up 1 week Go over blood work and ultrasounds Scheduled Active and Recently Administ ered Medications (unrecognized section and content) Medication Order 02/29/2024 03/01/2024 03/02/2024 amLODIPine (Norvasc) tablet 5 mg 5 mg, oral, Daily, First dose on Fri03/02/24 at 0900, Therapeutic interchange for Lotrel 5 mg/40 mg tablet 0822 (Given - Provid er: Willow Andrews RN) HYDROmorphone (Dilaudid) injection 0.4 mg (COMPLETED) 0.4 mg, intravenous, Once, On Fri03/01/24 at 2225, For 1 dose 2233 (Given - Provider: Gianfranco Borrero RN) insulin lispro (HumaLOG) injection 0-15 Units 0-15 Units, subcutaneous, 3 times daily (morning, midday, late afternoon), First dose on Fri03/02/24 at 0830, Do not hold when patient is not eating, continue order as scheduled for hyperglycemia management. Insulin Lispro Corrective Scale #3 Hypoglycemia protocol Call LIP unit(s) if Blood Glucose is between 0 - 70 mg/dL 0 unit(s) if Blood glucose is between 71-150 3 unit(s) if Blood glucose is between 151-200 6 unit(s) if Blood glucose is between 201-250 9 unit(s) if Blood glucose is between 251-300 12 unit(s) if Blood glucose is between 301-350 15 unit(s) if Blood glucose is between 351-400 Notify provider unit(s) if Blood Glucose is greater than 400 mg/dL 1008 (Not Given - Provider: Willow Andrews RN - Reason: Other - Comment: pt dosed off insulin pump)1143 (Not Given - Provider: Willow Andrews RN - Reason: Other - Comment: pt doses off insulin pump)1700 (Due) iohexol (OMNIPaque) 350 mg iodine/mL solution 69 mL (COMPLETED) 69 mL, intravenous, Once in imaging, Starting on Fri03/01/24 at 1954, For 1 dose 1954 (Given - Provider: Felicity Yanez) lisinopril tablet 40 mg 40 mg, oral, Daily, First dose on Fri03/02/24 at 0900, Therapeutic interchange for Lotrel 5 mg/40 mg tablet 822 (Given - Provid er: Willow Andrews RN) metoprolol succinate XL (Toprol-XL) 24 hr tablet 50 mg 50 mg, oral, Daily, First dose on Fri03/02/24 at 0900, Do not crush or chew. 822 (Given - Provid er: Willow Andrews RN) morphine injection 4 mg (COMPLETED) 4 mg, intravenous, Once, On Fri03/01/24 at 1820, For 1 dose 1843 (Given - Provider: Marley Moeller, RN) ondansetron (Zofran) injection 4 mg (COMPLETED) 4 mg, intravenous, Once, On Fri03/01/24 at 1820, For 1 dose, When administering via IV Push, administer over 3-5 minutes. 1843 (Given - Provider: Marley Moeller, RN) ondansetron (Zofran) injection 4 mg (COMPLETED) 4 mg, intravenous, Once, On Fri03/01/24 at 2225, For 1 dose, When administering via IV Push, administer over 3-5 minutes. 2233 (Given - Provider: Gianfranco Borrero RN) polyethylene glycol (Glycolax, Miralax) packet 17 g 17 g, oral, Daily, First dose on Fri03/02/24 at 0900, Bowel Regimen - for prevention of constipation. 0825 (Not Given - Provider: Willow Andrews RN - Reason: Patient/family refused) rosuvastatin (Crestor) tablet 5 mg 5 mg, oral, Daily, First dose on Fri03/02/24 at 0900 0824 (Given - Provid er: Willow Andrews RN) sodium chloride 0.9 % bolus 1,000 mL (COMPLETED) 1,000 mL, intravenous, at 999 mL/hr, Administer over 1 Hours, Once, On Fri03/01/24 at 1820, For 1 dose 1843 (New Bag - Provider: Marley Moeller RN)1955 (Stopped - Provider: Gianfranco Borrero RN) sodium chloride 0.9 % bolus 1,000 mL (COMPLETED) 1,000 mL, intravenous, at 999 mL/hr, Administer over 1 Hours, Once, On Fri03/01/24 at 2005, For 1 dose 2022 (New Bag - Provider: Gianfranco Borrero RN)211 (Stopped - Provider: Gianfranco Borrero RN) Continuous Medication Order 02/29/2024 03/01/2024 03/02/2024 dextrose 10 % in water (D10W) infusion (CANCELED) 150 mL/hr, intravenous, Continuous, Starting on Fri03/01/24 at 2120, Initiate when blood glucose less than or equal to 150 mg/dL and anion gap still open. 0122 (New Bag - Provider: Karen Box RN)0437 (Rate/Dose Verify - Provider: Karen oBx RN)0625 (Stopped - Provider: Karen Box RN) dextrose 5%-0.45 % sodium chloride infusion (CANCELED) 150 mL/hr, intravenous, Continuous, Starting on Fri03/01/24 at 2120, Initiate when blood glucose between 150 mg/dL - 250 mg/dL. 2149 (New Bag - Provider: Gianfranco Brorero RN) 0006 (Rate/Dose Verify - Provider: Gianfranco Borrero RN)9814 (Rate/Dose Verify - Provider: Karen Box, RN)0645 (Stopped - Provider: Karen Box, RN) insulin regular 100 unit/100 mL (1 unit/mL) in 0.9 % NaCl infusion (CANCELED) 0-50 Units/hr (0-50 mL/hr), intravenous, Continuous, Starting on Fri03/01/24 at 2250, When patient meets DKA criteria (blood glucose > 250 mg/dL, arterial pH < 7.3, bicarbonate < 15 mEq/L, and moderate ketonuria or ketonemia) AND K > 3.3 mmol/L : INITIATE infusion at 0.14 units/kg/hr (max initial rate of 15 units/hr) If CrCl less than 30 mL/min or known CKD: INITIATE at 0.05 units/kg/hr (max initial rate of 7 units/hr) Adjust based on every 1 hour capillary blood glucose results as follows: Step 1: goal decrease in blood glucose within 1 hour after initiation of insulin infusion: 50 mg/dL or 10% of initial blood glucose value (choose a or b based on initial BG drop) Step 1 (a): IF blood glucose decreases by < 50 mg/dL or < 10%: Bolus 0.1 units/kg (max 10 units) and continue infusion at same rate Step 1 (b): IF blood glucose decreases by 50 - 75 mg/dL or 10% AND still > 250 mg/dL continue same rate and reassess hourly Step 2: If within next 1 - 2 hours blood glucose still not less than or equal to 250 mg/dL increase infusion rate by 25% until blood glucose less than 250 mg/dL and notify provider. Step 3: notify provider when blood glucose less than than 250 mg/dL and assess anion gap; If anion gap closed proceed to step 4 Step 3: When blood glucose less than than 250 mg/dL AND anion gap still open (choose a, b, or c based on hourly blood glucose level): Step 3 (a): If blood glucose between 151 and 250 mg/dL and anion gap OPEN continue infusion at the same rate; see dextrose orders for changing fluids to D5W containing fluids; titrate insulin up/down as needed by 25% to maintain blood glucose between 151-250 mg/dL and notify provider; repeat this step as needed and titrate down to a minimum insulin infusion rate of 0.1 units/kg/hr Step 3 (b): If blood glucose between 70-150 mg/dL and AG open decrease insulin infusion rate by 50% notify provider; see dextrose orders for addition of D10; repeat this step as needed and if unable to maintain blood glucose > 150 mg/dL titrate down to a minimum insulin infusion rate of 0.5 units/hr Step 3 (c): If blood glucose less than 70 mg/dL and AG open HOLD insulin infusion for 15 minutes and see dextrose orders for dextrose administration. Recheck blood glucose 15 minutes after dextrose treatment. If glucose is greater than 70 mg/dL, resume insulin drip at 50% of previous rate. If glucose is still less than 70 mg/dL, repeat this step. Notify provider. if unable to maintain blood glucose > 150 mg/dL titrate down to a minimum insulin infusion rate of 0.5 units/hr Step 4 anion gap closed and DKA resolved Do not discontinue unless the following criteria for resolution of DKA is met and discussed with the provider: anion gap closed acidosis reversed tolerates oral feeds a plan for long acting insulin is established If DKA resolved and patient does not tolerate oral feeds/not eating reliably continue intravenous insulin infusion using the Intensive Insulin Algorithm with a target blood glucose of 140-180 mg/dL. IF DKA resolved and patient tolerating oral feeds/eating reliably discontinue insulin infusion 2 hours after administration of long acting SQ insulin. , Protocol Document: <a href=[email or web address]>, Other Initial Dose: 0.14 unit/kg/hr with max of 15 units/hr and 0.05 units/kg/hr and max of 7 units/hr for ckd or CrCl less than 30 mL/min 0003 (New Bag - Provider: Gianfranco Borrero RN)0100 (Rate/Dose Change - Provider: Karen Box RN)0200 (Rate/Dose Change - Provider: Karen Box RN)0300 (Rate/Dose Change - Provider: Karen Box RN)0400 (Rate/Dose Change - Provider: Karen Box RN)0437 (Canceled Entry - Provider: Karen Box RN - Comment: Cancelled from back documented administration.)0506 (Rate/Dose Change - Provider: Karen Box RN)0603 (Rate/Dose Change - Provider: Karen Box RN)1009 (Stopped - Provider: Willow Andrews RN) PRN Medication Order 02/29/2024 03/01/2024 03/02/2024 dextrose 50 % injection 50 mL 50 mL, intravenous, Every 15 min PRN, low blood sugar - see comments, blood glucose less than 70 mg/dL, Starting on Fri03/01/24 at 2050, Administer 50 mL; recheck blood glucose and administer another 50 mL if blood glucose still less than 70 mg/dL. Restart insulin infusion when blood glucose is greater than 70 mg/dL at 50% of previous rate AND start D10 at 150 - 250 mL/hour glucagon (Glucagen) injection 1 mg 1 mg, intramuscular, As needed, low blood sugar - see comments, hypoglycemia, Starting on Fri03/01/24 at 2127, Administer IV doses over at least 1 minute HYDROmorphone (Dilaudid) tablet 2 mg 2 mg, oral, Every 4 hours PRN, pain severe (7-10), first line, Starting on Fri03/01/24 at 2127, If ordered PRN for pain, nurse is permitted to administer this medication for higher pain scores based on patient preference? Yes ondansetron ODT (Zofran-ODT) disintegrating tablet 4 mg 4 mg, oral, Every 8 hours PRN, nausea/vomiting, first line, Starting on Fri03/02/24 at 0615 FOR RECORDS PERTAINING TO PATIENTS WHO ARE OR HAVE BEEN ENROLLED IN A CHEMICAL DEPENDENCY/SUBSTANCEABUSE PROGRAM, SOME INFORMATION MAY BE OMITTED. This clinical summary was aggregated from multiple sources. Caution should be exercised in using it in the provision of clinical care. This summary normalizes information from multiple sources, and as a consequence, information in this document may materially change the coding, format and clinical context of patient data. In addition, data may be omitted in some cases. CLINICAL DECISIONS SHOULD BE BASED ON THE PRIMARY CLINICAL RECORDS. [employer] [facility]. provides no warranty or guarantee of the accuracy or completeness of information in this document.
[2025-01-22 13:52] LABS: AST(SGOT) 133 U/L (<=37); Alanine Aminotransfer ALT/SGPT 129 U/L (<=46); Albumin, Serum 4.6 g/dL (3.5-5.0); Alkaline Phosphatase 99 U/L (40-129); Anion Gap 30 (5-15); BUN 7 mg/dL (4-19); BUN/Creat Ratio 7.7 RATIO (10-20); Calcium,Total 9.7 mg/dL (7.6-11.0); Carbon Dioxide 14.8 mmol/L (21.0-32.0); Chloride 99 mmol/L (98-108); Estimated Creatinine Clearance 138.10 ml/min (50-250); Globulin 2.6 g/dL (2.2-4.2); Glucose 65 mg/dL (70-99); Lipase 62 U/L (13-75); Potassium 3.5 mmol/L (3.3-5.1)
--- NOTE | 2025-01-22 15:21 | CT_ITS ---
PROCEDURE: BRAIN/HEAD WITHOUT CONTRAST 01/22/2025 REASON FOR EXAM: AMNESIA TECHNIQUE: Procedure Code: CTBR Modality: CT Procedure: BRAIN/HEAD WITHOUT CONTRAST Coronal and Sagittal reconstruction series were provided. One or more dose reduction techniques were used (e.g., Automated exposure control, adjustment of the mA and/or kV according to patient size, use of iterative reconstruction technique. RADIATION DOSE SUMMARY: CTDlvol: 44.99 mGy DLP: 846.73 mGycm COMPARISON: CT head without contrast, 05/03/2022. FINDINGS: There is no evidence of acute intracranial hemorrhage or infarction. There are no abnormal intracranial masses or mass effects. The ventricular system and basilar cisterns are unremarkable. The skull base and calvarium are normal. 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 There is mucoperiosteal thickening of the right maxillary sinus, multiple ethmoidal air cells in the sphenoid sinuses. There are mucous retention cysts in both sphenoid sinuses. The mastoid air cells are unremarkable. The intraorbital contents are normal. The visualized extracranial soft tissues are normal. CT/Brain/Head without Contrast IMPRESSION: 1. Normal CT brain without contrast. 2. Multifocal sinusitis. Reading Location: [id number]
[2025-01-22 15:44] LABS: Alcohol, Blood (Medical)-Serum 36.6 mg/dL (<=10.0)
[2025-01-22 17:03] LABS: Barbiturate Urine NEGATIVE (< 200 ng/mL); Benzodiazepine Urine NEGATIVE (< 200 ng/mL); PCP Urine NEGATIVE (< 25 ng/mL); THC Urine NEGATIVE (< 50 ng/mL)
[2025-01-22 17:03] LABS: Lipase 66 U/L (13-75)
== END 2025-01-22 18:47 | disposition home or self-care (01) ==
PROVIDERS: Emergency Provider Emergency Medicine; PCP Internal Medicine; Visit Provider Emergency Medicine
DX: E10.649 Type 1 diabetes mellitus with hypoglycemia without coma (principal); Z79.4 Long term (current) use of insulin; F10.10 Alcohol abuse, uncomplicated; Z96.41 Presence of insulin pump (external) (internal); R11.2 Nausea with vomiting, unspecified; K29.70 Gastritis, unspecified, without bleeding
CPT/HCPCS: 70450; 80053; 80307; 82077; 82962; 83690; 85025; 96374; 96376; 99285; A4216; J2405

== ENCOUNTER 2025-02-07 20:01 | Emergency (ER) | payer OTHER, SELFPAY ==
[2025-02-07 20:01] VITALS: BP 178/117; PULSE 130; RESP 19; TEMP 36.8; O2SAT 100; BMI 26.2
--- NOTE | 2025-02-07 20:35 | EDS_ITS ---
HPI History of Present Illness Chief Complaint: Ear Problem Informant: patient and family Narrative Narrative: 29-year-old male started having tinnitus while at work earlier today, was maybe 9 or 10 hours prior to evaluation, this progressed to complete hearing loss from his right ear. States when holding his cell phone up to his right ear he cannot hear anything, tinnitus persist, he had some brief disequilibrium but that has not been a prominent symptom nor dizziness or headache. He states he has developed some mild numbness throughout the right cheek, and family states that he had some swelling in that area. Patient denies having any pain here, he st ates he has some mild discomfort around the ear but not major pain. No focal neurologic symptoms distally. Patient is an alcoholic, he last drank last night heavily as he does each night. He is also a type I diabetic with an insulin pump. [facility] Medical History Pancreatitis GERD (gastroesophageal reflux disease) Seizures History of diabetes mellitus Anxiety Alcohol abuse Alcohol dependence Depression Presence of insulin pump Diabetes mellitus type 1 High cholesterol Vitamin D deficiency HTN (hypertension) Home Medications ?Medication ?Instructions ?Recorded ?Last Taken ?Type amlodipine 5 mg-benazepril 10 mg 1 cap PO QDAY 4 Unknown History capsule ondansetron 8 mg disintegrating 8 mg PO Q8H PRN nausea and 09/04/23 Unknown Rx tablet vomiting #20 tabs blood pressure monitor (Blood #1 ea 06/15/24 Unknown R x Pressure Kit) blood-glucose sensor (Dexcom G7 #9 ea 10/22/24 Unknown Rx Sensor device) insulin pump cart,auto,BT,G6/7 #30 ea 12/29/24 Unknown Rx (Omnipod 5 G6-G7 Pods (Gen 5) subcutaneous cartridge) insulin lispro 100 unit/mL 100 unit subcut .COMPLEX Unknown History subcutaneous solution (Humalog U-100 Insulin) ondansetron 4 mg disintegrating 4 mg PO Q8H PRN PRN Na usea #15 tabs 01/22/25 Unknown Rx tablet prednisone 10 mg tablet 10 mg PO UD #38 tabs 5 Unknown Rx Allergy/AdvReac Type Severity Reaction Status Date / Time No Known Allergies Allergy Verified 02/07/25 20:02 Family History Mother Hypertension Surgical History No history of previous surgery Social History household members: none housing: apartment Smoking Status: Never smoker alcohol intake: current alcohol intake frequency: a few times a week Alcohol type: beer and hard liquor substance use type: does not use ROS ROS ED Constitutional Constitutional ED: Denies chills or fever(s) Eyes Eyes: Denies change in vision or diplopia ENT ENT ED: Reports as per HPI, abnormal hearing and tinnitus; Denies rhinorrhea or sore throat Cardiovascular Cardiovascular: Denies chest pain or palpitations Respiratory/Chest Respiratory/Chest: Denies cough or dyspnea Gastrointestinal Gastrointestinal: Denies abdominal pain, diarrhea, nausea or vomiting Genitourinary Genitourinary ED: Denies dysuria or hematuria Musculoskeletal Musculoskeletal: Denies back pain or neck pain Integumentary Denies abscess or rash Neurologic Neurologic: Reports disequilibrium; Denies headache(s), paresthesias or weakness Psychiatric Psychiatric: Denies anxiety or suicidal thoughts EXAM Physical Exam Const Vital Signs: 02/07/25 20:01 02/07/25 20:38 Temperature 98.2 F 99.3 F H Temperature Source Temporal Oral Pulse Rate 130 H 101 H Respiratory Rate 19 H 16 Blood Pressure 178/117 H 144/108 H Blood Pressure Mean 137 120 Pulse Ox 100 99 Oxygen Delivery Method Room Air Positive well nourished and well developed General Appearance ED: well developed and NAD HEENT Reports moist mucous membranes HEENT Narrative: TMs and EAC normal bilaterally and symmetric. No periauricular lymphadenopathy. No parotid tenderness and no discharge from Stensen's duct. I am not able to objectively appreciate any swelling in the face or significant asymmetry. Family points to his right cheek back to where the parotid is as where she thinks it looks more prominent than the other side. normocephalic and atraumatic Eyes PERRL and EOMs intact bilaterally Neck full ROM, no lymphadenopathy and supple Resp normal respiratory effort and clear to auscultation bilaterally Cardio regular rate, regular rhythm and no murmurs Rate: other Other Details: Borderline tachycardic GI non-distended Back/Spine no CVA tenderness General Back: other FROM Extremity normal to inspection General Extremety ED: Negative for edema, pulses abnormal or tenderness General Extremity: Negative for edema or pulses abnormal Neuro oriented x3, CN's II-XII intact bilaterally and no sensory deficits noted Neuro Narrative: Mild tremor Sensorium / Orientation: awake and alert Motor Exam: strength 5/5 throughout Psych mental status grossly normal Skin no rashes or lesions noted and no wounds MDM MDM MDM Narrative Medical decision making narrative: Initial vitals, he is very hypertensive and tachycardic. I had nursing repeat that now that he is here resting in room, blood pressure 144/108 and pulse 101. He has a very mild hand tremor. He has not had alcohol since last night, currently is 2030 and I suspect that these vital signs are related to some mild alcohol withdrawal. I have them check his blood sugar it is 236. I ordered some basic labs to evaluate for the possibility of metabolic etiologies while simultaneously paging otolaryngology to discuss. I spoke with Dr. Kang. He states he is her symptoms of acute sensorineural hearing loss, recommends prednisone to be started soon as possible which we did, he recommends 50 mg today for 5 days and then tapering down. We do not have the 50 mg tablets here so I started him on 60 today, he is a type I diabetic he understands this may make his blood sugars go high but he has a pump so that should help him control them. His labs show a suppressed bicarb level, however he is well-appearing and his vital signs have remained stable, and I do not think he has any signs or symptoms of DKA. He has a working insulin pump and his blood sugar came back at a similar level on the chemistries, I am comfortable with him going home and following up and we discussed reasons to return. Lab Data Attestation: I reviewed the patient's lab results. Labs: Laboratory Results - last 24 hr 02/07/25 02/07/25 20:34 21:05 WBC 9.5 RBC 4.42 L Hgb 14.1 Hct 40.8 MCV 92.3 MCH 31.9 MCHC 34.6 RDW Std Deviation 44.9 H RDW Coeff of Last 13.2 Plt Count 144 L MPV 10.2 Immature Gran % (Auto) 0.600 Neut % (Auto) 80.1 H Lymph % (Auto) 11.0 L [place] % (Auto) 7.8 Eos % (Auto) 0.1 Baso % (Auto) 0.4 Absolute Neuts (auto) 7.6 Absolute Lymphs (auto) 1.05 Nucleated RBC % 0 Sodium 140 Potassium 4.3 Chloride 99 Carbon Dioxide 17.6 L Anion Gap 23 H BUN 12 Creatinine 1.10 Estim Creat Clear Calc 112.99 Est GFR (MDRD) Non-Af 94 BUN/Creatinine Ratio 11.3 Glucose 245 H Calcium 9.5 POC Glucose 236 H Management Discussion w/another healthcare provider: 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 ([facility]) Discharge Plan Triage Chief Complaint: Ear Problem ED Provider: Lavell Patel Dx/Rx/DC Orders Clinical Impression: Sensorineural hearing loss (SNHL) of right ear, Hyperglycemia due to type 1 diabetes mellitus Instructions: Understanding Hearing Loss Prescriptions: New prednisone 10 mg tablet 10 mg PO UD Qty: 38 0RF Rx Instructions: Take 5 tablets daily for 4 days, then 3 daily for 3 days, then 2 daily for 3 days, then 1 a day for 3 days No Action amlodipine-benazepril 5-10 mg capsule 1 cap PO QDAY (DME) blood pressure monitor [Blood Pressure Kit] Kit See Rx Instructions .Route Qty: 1 0RF Rx Instructions: As directed ondansetron 8 mg tablet,disintegrating 8 mg PO Q8H PRN (Reason: nausea and vomiting) Qty: 20 0RF insulin lispro [Humalog U-100 Insulin] 100 unit/mL solution 100 unit subcut .COMPLEX Rx Instructions: basal rate 0.5, sliding scale ac/hs, insulin pump ondansetron 4 mg tablet,disintegrating 4 mg PO Q8H PRN PRN (Reason: Nausea) Qty: 15 0RF (DME) Dexcom G7 Sensor Device See Rx Instructions .Route Qty: 9 1RF Rx Instructions: As directed (DME) Omnipod 5 G6-G7 Pods (Gen 5) Cartridge See Rx Instructions .Route Qty: 30 1RF Rx Instructions: 1 pod q 72 hours Primary Care Provider: Jarocho Rice Referrals: Buddy Kang MD [Med Staff - Active Staff] - As soon as possible Activity Restrictions/Additional Instructions: Can start prescription 02/08/2025 since you received the initial dose in the ED. Prednisone is just once daily. Print Language: [place] Disposition Disposition: Home, Self Care
[2025-02-07 20:38] VITALS: BP 144/108; PULSE 101; RESP 16; TEMP 37.4; O2SAT 99
[2025-02-07 21:28] LABS: Hematocrit 40.8 % (40-54); Hemoglobin 14.1 g/dL (13.0-16.5); Immature Granulocytes Count 0.060 X10^3/uL (0.0-0.0); Mean Corp Hgb Conc 34.6 g/dL (32-36); Mean Corpuscular Volume 92.3 fL (80-94); Mean Platelet Vol. 10.2 fl (6.2-12.0); NRBC Flagged by Analyzer 0 % (0-5); Platelet Count 144 K/mm3 (150-450); RBC Distribution Width CV 13.2 % (11.6-14.6); RBC Distribution Width SD 44.9 fl (35.1-43.9); Red Blood Count 4.42 M/mm3 (4.6-6.2); White Blood Count 9.5 K/mm3 (4.4-11.0)
[2025-02-07 21:47] LABS: Anion Gap 23 (5-15); BUN 12 mg/dL (4-19); BUN/Creat Ratio 11.3 RATIO (10-20); Calcium,Total 9.5 mg/dL (7.6-11.0); Carbon Dioxide 17.6 mmol/L (21.0-32.0); Chloride 99 mmol/L (98-108); Estimated Creatinine Clearance 112.99 ml/min (50-250); Glucose 245 mg/dL (70-99); Potassium 4.3 mmol/L (3.3-5.1)
[2025-02-07 22:50] VITALS: BP 144/102; PULSE 87; RESP 16; TEMP 36.7; O2SAT 98
== END 2025-02-07 22:54 | disposition home or self-care (01) ==
PROVIDERS: Emergency Provider Emergency Medicine; PCP Internal Medicine; Visit Provider Emergency Medicine
DX: H90.5 Unspecified sensorineural hearing loss (principal); G40.909 Epilepsy, unspecified, not intractable, without status epilepticus; F10.20 Alcohol dependence, uncomplicated; E10.65 Type 1 diabetes mellitus with hyperglycemia; Z79.4 Long term (current) use of insulin; I10 Essential (primary) hypertension; K21.9 Gastro-esophageal reflux disease without esophagitis; Z96.41 Presence of insulin pump (external) (internal); Z87.19 Personal history of other diseases of the digestive system; Z79.899 Other long term (current) drug therapy
CPT/HCPCS: 80048; 82962; 85025; 99282

== ENCOUNTER → 2025-03-02 | Outpatient (CLI) | payer OTHER, SELFPAY ==
--- NOTE | 2025-03-02 07:19 | MRI_ITS ---
PROCEDURE: BRAIN W/WO CONTRAST 03/02/2025 REASON FOR EXAM: SUDDEN SENSORINEURAL HEARING LOSS Right ear hearing loss. Tinnitus for 3-4 weeks. TECHNIQUE: Procedure Code: MRIBRWW Modality: MR Procedure: MRI brain without and with contrast, with additional attention to the internal auditory canals. Multiplanar and multisequence images were obtained. CONTRAST: Clariscan VOLUME: 19 mL intravenous. COMPARISON: Head CT of 01/22/2025. FINDINGS: Brain: No intracranial mass or mass effect is seen. No extra-axial fluid collection is noted. Internal auditory canals appear symmetric and within the normal range. No mass or area of abnormal enhancement is seen. No inner ear abnormality is seen on either side. The orbits appear within the normal range. Diffusion: Diffusion-weighted images demonstrate no area of restricted diffusion. Ventricles: Normal. Sinuses: Left sphenoid cyst appears unchanged. Mild mucosal thickening is noted at the bilateral ethmoid and maxillary sinuses. No air-fluid level is seen. Mastoids: Clear. Following intravenous contrast administration, no area of abnormal enhancement is seen. MRI/Brain W/WO Contrast IMPRESSION: 1. Internal auditory canals appear symmetric and within normal range. 2. No significant intracranial abnormality is seen. 3. Chronic appearing paranasal sinus disease. Reading Location: [id number]
== END | disposition home or self-care (01) ==
PROVIDERS: PCP Internal Medicine; Referring Provider Otolaryngology; Visit Provider Otolaryngology
DX: H93.11 Tinnitus, right ear (principal)
CPT/HCPCS: 70553; A9575

== ENCOUNTER 2025-05-10 18:51 | Inpatient (IN) | payer OTHER, SELFPAY ==
[2025-05-10] VITALS (17 sets, daily range): BP systolic 141–186; BP diastolic 75–121; PULSE 108–151; RESP 11–30; TEMP 37.1–39.2; O2SAT 98–100; BMI 25.0
--- NOTE | 2025-05-10 19:48 | EKG12_ITS ---
Test Reason : DYSRHYTHMIA Blood Pressure : */* mmHG Vent. Rate : 118 BPM Atrial Rate : 118 BPM P-R Int : 130 ms QRS Dur : 82 ms QT Int : 324 ms P-R-T Axes : 65 67 58 degrees QTcB Int : 454 ms Sinus tachycardia Possible Lateral infarct Otherwise normal ECG Confirmed by Vu Houser ([id number]), map editor MELVIN GIBBONS ([id number]) on 05/11/2025 10:25:25 AM Referred By: ER Confirmed By: Vu Houser
--- NOTE | 2025-05-10 19:48 | CT_ITS ---
PROCEDURE: ABDOMEN/PELVIS W IV CONT ONLY 05/10/2025 REASON FOR EXAM: ABDOMINAL PAIN, ALCOHOL USE TECHNIQUE: Procedure Code: [id number] Modality: CT Procedure: ABDOMEN/PELVIS W IV CONT ONLY Coronal and Sagittal reconstruction series were provided. CONTRAST: Isovue 370 VOLUME: 86 mL One or more dose reduction techniques were used (e.g., Automated exposure control, adjustment of the mA and/or kV according to patient size, use of iterative reconstruction technique. RADIATION DOSE SUMMARY: CTDlvol: 13.30, 17.58 mGy DLP: 960 mGycm COMPARISON: None. FINDINGS: LUNG BASES: No basilar airspace consolidation or pleural effusion. LIVER: Mildly enlarged measuring 17.6 cm in length. Diffuse decrease in parenchymal density. GALLBLADDER: Unremarkable. No calcified stone. BILE DUCTS: No ductal dilation. PANCREAS: Moderate diffuse peripancreatic fluid, consistent with pancreatitis. Homogeneous parenchymal enhancement. No pseudocyst or drainable collection seen. SPLEEN: Unremarkable. ADRENAL GLANDS: Unremarkable. KIDNEYS: Unremarkable. The kidneys enhance symmetrically. No hydronephrosis or hydroureter. STOMACH AND BOWEL: No obstruction or perforation. Mild diffuse colonic wall thickening from the cecum to the proximal transverse colon. APPENDIX: Normal-appearing appendix. No CT evidence for appendicitis. RETRO/PERITONEUM: Retroperitoneal fluid bilaterally. No free air or focal fluid collections. LYMPH NODES: No lymphadenopathy. PELVIC ORGANS: Unremarkable prostate gland and seminal vesicles. Incomplete bladder distention with diffuse wall thickening. Bilateral ductus deferens calcification, can result from diabetes (most common), normal aging or chronic infection/inflammation. VASCULATURE: No aortic aneurysm. Scattered calcified atherosclerosis in the visceral and peripheral arteries. ABDOMINAL WALL AND SOFT TISSUES: Unremarkable. BONES: No fracture or suspicious osseous abnormality. CT/Abdomen/Pelvis W IV Cont ONLY IMPRESSION: 1. Findings consistent with acute pancreatitis. No signs of pancreatic necros is or pseudocyst. 2. Hepatomegaly with diffuse hepatic steatosis. 3. Mildly thickened right colon, query acute colitis. Reading Location: [facility]
--- NOTE | 2025-05-10 19:51 | EDS_ITS ---
HPI History of Present Illness Chief Complaint: Hyperglycemia Narrative Narrative: Patient is a 29-year-old male presenting to the emergency department for nausea, vomiting, abdominal pain. Patient has a past medical history of diabetes on insulin, pancreatitis, GERD, alcohol abuse, hypertension, hyperlipidemia. Patient states that he has been drinking almost daily for the past 2 months. He states last night he went out drinking and is unsure how much he drank, he blacked out. He states yesterday he had an insulin pump on but this morning when he woke up today he did not have 1 on. He does not have a Dexcom. He states he went to work and actually felt okay until around 830 or 9 AM when he started having nausea with multiple episodes of nonbloody, nonbilious emesis. He states that he started having left-sided abdominal pain that is now generalized. When he started having the symptoms he checked his glucose and it was in the 300s and then realized he did not have an insulin pump on him but went on. States his glucoses have been going down since then and is now in the high 200s. He denies anyone with similar symptoms. Denies any fever or chills. Endorses a burning sensation in his chest, denies shortness of breath. Denies any diarrhea, dysuria or hematuria. [facility] Medical History Pancreatitis GERD (gastroesophageal reflux disease) Seizures History of diabetes mellitus Anxiety Alcohol abuse Alcohol dependence Depression Presence of insulin pump Diabetes mellitus type 1 High cholesterol Vitamin D deficiency HTN (hypertension) Home Medications ?Medication ?Instructions ?Recorded ?Last Taken ?Type amlodipine 5 mg-benazepril 10 mg 1 cap PO QDAY 08/14/2 4 05/06/25 History capsule blood pressure monitor (Blood #1 ea 06/15/24 Unknown R x Pressure Kit) blood-glucose sensor (Dexcom G7 #9 ea 10/22/24 Unknown Rx Sensor device) insulin pump cart,auto,BT,G6/7 #30 ea 12/29/24 Unknown Rx (Omnipod 5 G6-G7 Pods (Gen 5) subcutaneous cartridge) insulin lispro 100 unit/mL 100 unit subcut .COMPLEX 05/06/25 History subcutaneous solution (Humalog U-100 Insulin) ondansetron 4 mg disintegrating 4 mg PO Q8H PRN PRN Na usea #15 tabs 01/22/25 Unknown Rx tablet Allergy/AdvReac Type Severity Reaction Status Date / Time No Known Allergies Allergy Verified 05/10/25 18:54 Family History Mother Hypertension Surgical History No history of previous surgery Social History household members: none housing: apartment Smoking Status: Never smoker alcohol intake: current alcohol intake frequency: a few times a week Alcohol type: beer and hard liquor substance use type: does not use ROS ROS ED ROS Narrative see HPI EXAM Physical Exam Narrative Exam Narrative: Vital signs: Reviewed General: Alert and orientedx3. No acute distress. Well appearing, nontoxic. HEENT: Head is normocephalic and atraumatic, sinuses nontender, pupils equal round and reactive. Nares are patent. Oropharynx and throat exams normal. Dry mucous membranes. Neck: Supple without lymphadenopathy nontender Cardiovascular: Tachycardic rate and regular rhythm, no murmurs. No rubs or gallops. Normal S1 and S2 Respiratory: Clear to auscultation bilaterally. No wheezes, rales, rhonchi Abdominal: Soft and diffusely tender to palpation. Normal bowel sounds. No guarding or rebound. Nonsurgical abdomen Extremities: No tenderness. No bruising. Normal range of motion. Normal sensation. Skin: No rash or redness. The rest of the physical exam is unremarkable Const Vital Signs: 05/10/25 18:53 05/10/25 18:56 05/10/25 19:25 Temperature 99.6 F H 99.6 F H Temperature Source Oral Oral Pulse Rate 151 H 135 H 115 H Respiratory Rate 30 H 29 H 20 H Respiratory Effort Respiratory Pattern Blood Pressure 159/120 H 162/114 H Blood Pressure Mean 133 130 Pulse Ox 100 100 100 Oxygen Delivery Method Room Air Room Air 05/10/25 19:30 05/10/25 19:35 05/10/25 19:45 Temperature Temperature Source Pulse Rate 119 H Respiratory Rate 21 H 17 Respiratory Effort Normal Respiratory Pattern Normal Blood Pressure 159/109 H 186/104 H Blood Pressure Mean 122 125 Pulse Ox 99 99 Oxygen Delivery Method 05/10/25 19:56 05/10/25 20:00 05/10/25 20:00 Temperature 99.1 F 99.1 F Temperature Source Oral Oral Pulse Rate 111 H 109 H 111 H Respiratory Rate 20 H 21 H 25 H Respiratory Effort Respiratory Pattern Blood Pressure 186/104 H 147/121 H 147/121 H Blood Pressure Mean 131 129 130 Pulse Ox 100 99 99 Oxygen Delivery Method Room Air Room Air 05/10/25 20:15 05/10/25 20:30 05/10/25 20:45 Temperature Temperature Source Pulse Rate 108 H 108 H Respiratory Rate 17 19 H Respiratory Effort Respiratory Pattern Blood Pressure 153/97 H 154/94 H 150/92 H Blood Pressure Mean 112 110 109 Pulse Ox 100 100 Oxygen Delivery Method 05/10/25 21:00 05/10/25 21:00 05/10/25 21:15 Temperature Temperature Source Pulse Rate 112 H Respiratory Rate 17 Respiratory Effort Respiratory Pattern Blood Pressure 141/90 H 141/90 H 146/75 H Blood Pressure Mean 104 104 95 Pulse Ox 100 Oxygen Delivery Method 05/10/25 21:15 05/10/25 21:30 05/10/25 21:40 Temperature 102.6 F H Temperature Source Oral Pulse Rate 120 H 118 H Respiratory Rate 12 16 Respiratory Effort Respiratory Pattern Blood Pressure 146/75 H 157/95 H 157/95 H Blood Pressure Mean 95 111 115 Pulse Ox 99 98 Oxygen Delivery Method Room Air 05/10/25 22:00 05/10/25 22:01 Temperature 102.6 F H Temperature Source Pulse Rate 115 H 111 H Respiratory Rate 19 H 24 H Respiratory Effort Respiratory Pattern Blood Pressure 150/91 H 150/91 H Blood Pressure Mean 106 110 Pulse Ox 98 99 Oxygen Delivery Method MDM MDM MDM Narrative Medical decision making narrative: Patient is a 29-year-old male presenting to the emergency department with nausea, vomiting and abdominal pain after alcohol use last night. Patient was seen and examined. He is tachycardic in the 110s to 120s on my evaluation. He is resting in bed comfortably in no acute distress. [id number] glucose on arrival is 293. Differential includes but is not limited to: DKA, pancreatitis, alcoholic gastritis, ACS, pneumonia, colitis, cholecystitis Patient reports that his last drink was last night he has never had any alcohol withdrawal symptoms, I do not think the symptoms are consistent with alcohol withdrawal at this time. Will monitor. Fluid bolus and Zofran given. Protonix given as well for possible alcoholic gastritis. Toradol given for analgesic. Labs and CT imaging of the abdomen ordered. VBG with no significant acidosis, pH of 7.356, pCO2 of 19.7 and bicarb of 11. Likely respiratory compensation of his metabolic acidosis. CBC with leukocytosis of 16.8 and normal hemoglobin. CMP with bicarb of 8.7, anion gap of 39 and glucose of 335. DKA insulin order set and drip started. Liver enzymes are mildly elevated at an AST of 97 and ALT of 103. Similar to previous. Lipase elevated at 1323. Magnesium within normal limits. Troponin and reflex within normal limits. Urinalysis with glucose and ketones, consistent with his DKA. Chest x-ray reviewed by myself, no opacities, pneumothorax or wide mediastinum. Radiology read in agreement. CT shows findings consistent with acute pancreatitis. No signs of pancreatic necrosis or pseudocyst. Hepatomegaly with diffuse hepatic steatosis. Mildly thickened right colon, query acute colitis. Alcohol level negative. Discussed findings with the patient and family members at bedside. Explained need for admission for DKA and pancreatitis management. He is agreeable with the plan. On arrival vital by nursing staff, the patient is now febrile at 102. Patient given Tylenol, blood cultures obtained, given Zosyn for possible intra-abdominal source of fever. Viral swab also obtained. Patient admitted to hospitalist, Dr. Crystal for further management. Clinical impression Pancreatitis DKA Nausea and vomiting Alcohol abuse History & Record Review Discussion w/independent historian: Patient and Family Additional record(s) reviewed:: Prior labs Lab Data Attestation: I reviewed the patient's lab results. Labs: Laboratory Results - last 24 hr 05/10/25 05/10/25 05/10/25 19:15 19:20 20:00 WBC 16.8 H RBC 4.55 L Hgb 14.4 Hct 43.0 MCV 94.5 H MCH 31.6 MCHC 33.5 RDW Std Deviation 46.2 H RDW Coeff of Last 13.3 Plt Count 169 MPV 10.6 Immature Gran % (Auto) 0.500 Neut % (Auto) 87.3 H Lymph % (Auto) 2.1 L [place] % (Auto) 9.7 Eos % (Auto) 0.0 Baso % (Auto) 0.4 Absolute Neuts (auto) 14.6 H Absolute Lymphs (auto) 0.36 L Nucleated RBC % 0 Differential Comment SCANNED Sodium 142 Potassium 4.8 Chloride 95 L Carbon Dioxide 8.7 L* Anion Gap 39 H BUN 17 Creatinine 1.34 H Estim Creat Clear Calc 92.75 Est GFR (MDRD) Non-Af 74 BUN/Creatinine Ratio 12.5 Glucose 335 H Calcium 9.7 Phosphorus Magnesium 1.7 Total Bilirubin 0.79 AST 97 H ALT 103 H Alkaline Phosphatase 96 Troponin T High Sens 14 Troponin T Hi Sens 2 Hr Total Protein 7.4 Albumin 4.6 Globulin 2.8 Albumin/Globulin Ratio 1.6 Lipase 1323 H Urine Color Urine Clarity Urine pH Ur Specific [place] Urine Protein Urine Glucose (UA) Urine Ketones Urine Occult Blood Urine Nitrite Urine Bilirubin Urine Urobilinogen Ur Leukocyte Esterase Urine RBC Urine WBC Ur Squamous Epith Cells Urine Bacteria Urine Mucus Ethyl Alcohol < 10.1 POC Glucose 293 H 05/10/25 05/10/25 05/10/25 21:27 21:40 22:00 WBC RBC Hgb Hct MCV MCH MCHC RDW Std Deviation RDW Coeff of Last Plt Count MPV Immature Gran % (Auto) Neut % (Auto) Lymph % (Auto) [place] % (Auto) Eos % (Auto) Baso % (Auto) Absolute Neuts (auto) Absolute Lymphs (auto) Nucleated RBC % Differential Comment Sodium 140 Potassium 4.7 Chloride 99 Carbon Dioxide 12.9 L Anion Gap 28 H BUN Creatinine Estim Creat Clear Calc Est GFR (MDRD) Non-Af BUN/Creatinine Ratio Glucose Calcium Phosphorus 1.1 L* Magnesium 1.7 Total Bilirubin AST ALT Alkaline Phosphatase Troponin T High Sens Troponin T Hi Sens 2 Hr 16 Total Protein Albumin Globulin Albumin/Globulin Ratio Lipase Urine Color Yellow Urine Clarity Clear Urine pH 6.0 Ur Specific [place] 1.020 Urine Protein 30 H Urine Glucose (UA) 1000 H Urine Ketones 150 A* Urine Occult Blood Negative Urine Nitrite Negative Urine Bilirubin Negative Urine Urobilinogen Normal Ur Leukocyte Esterase Negative Urine RBC 0 SEEN Urine WBC 0 SEEN Ur Squamous Epith Cells 0 SEEN Urine Bacteria 0 SEEN Urine Mucus 0 SEEN Ethyl Alcohol POC Glucose 288 H ABG Data ABG results: ABG 05/10/25 20:11 Specimen Type BRITTNY Sample Site Not entered VBG pH 7.36 VBG pO2 47 H VBG HCO3 11 L VBG Total CO2 12 L VBG O2 Sat (Calc) 82 H VBG Base Excess -15 L POC Mix VBG pCO2 Pt Tmp 19.7 L O2 Delivery Device Room Air Radiography Chest X-Ray - ED: 2 View, Read by ED Physician, Normal, No Acute Disease and No Infiltrates Diagnostic Testing: Clinical Impression(s) from Imaging Studies Abdomen/Pelvis CT 05/10/25 19:48 IMPRESSION: 1. Findings consistent with acute pancreatitis. No signs of pancreatic necrosis or pseudocyst. 2. Hepatomegaly with diffuse hepatic steatosis. 3. Mildly thickened right colon, query acute colitis. Reading Location: [facility] Chest X-Ray 05/10/25 21:20 IMPRESSION: NO ACUTE FINDINGS. Reading [facility] Discharge Plan Disposition Disposition: Acute Care [facility] Discharge Date/Time: 05/10/25 23:23
[2025-05-10] MEDS: 0.9% Normal Saline (1000mL) 1,000 ML 999 ML IV (19:55)
[2025-05-10 20:06] LABS: Hematocrit 43.0 % (40-54); Hemoglobin 14.4 g/dL (13.0-16.5); Immature Granulocytes Count 0.090 X10^3/uL (0.0-0.0); Mean Corp Hgb Conc 33.5 g/dL (32-36); Mean Corpuscular Volume 94.5 fL (80-94); Mean Platelet Vol. 10.6 fl (6.2-12.0); NRBC Flagged by Analyzer 0 % (0-5); POSITIVE DIFFERENTIAL YES; Platelet Count 169 K/mm3 (150-450); RBC Distribution Width CV 13.3 % (11.6-14.6); RBC Distribution Width SD 46.2 fl (35.1-43.9); Red Blood Count 4.55 M/mm3 (4.6-6.2); White Blood Count 16.8 K/mm3 (4.4-11.0)
[2025-05-10] MEDS: Pantoprazole Sodium 40 MG in 0.9% Normal Saline (100mL MB+) 100 ML 300 MG IV (20:11)
[2025-05-10 20:13] LABS: SITE Not entered; VBG BASE EXCESS -15 mmol/L (-1.0-3.5); VBG PO2 47 mmHg (25-40); VBG SO2 82 % (50-70); VBG TCO2 12 mmol/L (23-33)
[2025-05-10 20:24] LABS: Alcohol, Blood (Medical)-Serum < 10.1 mg/dL (<=10.0)
[2025-05-10 20:25] LABS: Troponin T High Sensitivity 14 ng/L (<=22)
[2025-05-10 20:30] LABS: Differential Indicated SCAN CRITERIA MET
[2025-05-10 20:37] LABS: Lipase 1323 U/L (13-75); Magnesium 1.7 mg/dL (1.5-2.2)
--- OUTSIDE RECORDS SUMMARY | 2025-05-10 20:48 | XMS RPT_ITS | CCD ---
Author Organization [facility] Care Team Providers Care Professor Of Practice Name Role Phone SILVIA MUNOZ Unavailable Unavailable PHYSICIAN, DEFAULT Unavailable Unavailable PHYSICIAN, DEFAULT Unavailable Unavailable Dexter Daniel Unavailable [phone] Sachin Kennedy Emergency Provider Dr. Emy Salazar Admit Provider Dr. Emy Salazra Other Provider Dr. Chiquis Irwin Attending Provider [phone] Dr. Chiquis Irwin Other Provider [facility] Doctor, Out of Primary Care Provider Dr. Yrn Lira Referring Provider ZEE Boothe Attending Provider Dr. Paul Ontiveros Attending Provider Dr. Lavell Patel Emergency Provider Care Physician, No Primary Primary Care Provider Unavailable Dr. Osiris Murphy Admit Provider Dr. Osiris Murphy Attending Provider Dr. Osiris Murphy Other Provider NOT, DEFINED Primary Care Provider Unavailabl Dr. Jed Tirado Emergency Provider Dr. Teresa Cedillo Admit Provider Dr. Teresa Cedillo Attending Provider Dr. Teresa Cedillo Other Provider Fredy DELGADO, Dexter D Primary Care Provider Dr. Dafne Cornell Emergency Provider MUNJAPARA, VALJI Primary Care Provider [phone] William Bowers Admit Provider Dr. William Bowers Other Provider Dr. Colten Crystal Attending Provider Dr. Colten Crystal Other Provider Fredy DELGADO, Dexter D Unavailable Fredy DELGADO, Valji D Primary Care Provider Dr. Paul Ontiveros Attending Provider MUNJAPARA, VALJI [...] Unavailable MUNJAPARA, VALJI D Primary Care Unavailable Ann Mariepara Dr. Dexter DELGADO Primary Care Provider [phone] Ammon Nice MD Emergency Provider [phone] Ammon Nice MD Attending Provider Dr. Lavell Patel MD Emergency Provider Buddy Kang Attending Unavailable Buddy Kang Referring Unavailable Munjapara, Valji Primary Care Unavailable Paul Ontiveros Attending Unavailable Munjapara, Valji Primary Care Unavailable Munjapara, Valji Referring Unavailable Paul Ontiveros Attending Unavailable Paul Ontiveros Attending Unavailable Munjapara, Valji Primary Care Unavailable Munjapara, Valji Referring Unavailable Lavell Patel Attending Unavailable Munjapara, Valji Primary Care Unavailable Reodica, Ammon Attending Unavailable [facility] Primary [facility] Unavailable Paul Ontiveros Attending Unavailable Paul Ontiveros Referring Unavailable [facility] Unavailable Allergies Allergy Classification Reported Allergen(s) Allergy Type Date of Onset Reaction(s) Facility (1 source) Metoprolol; Translations: [metoprolol] Drug Allergy -[facility] Work Phone: Medications Current Medications Medication Drug Class(es) Dates Sig (Normalized) Sig (Original) amLODIPine 5 mg oral tablet (1 source) Dihydropyridine Calcium Channel Danielle Start: 03-02-2024 5 mg, oral, Daily, First dose on Fri03/02/24 at 0900, Therapeutic interchange for Lotrel 5 mg/40 mg tablet amLODIPine 5 mg / benazepril hydrochloride 40 mg oral capsule (10 sources) Dihydropyridine Calcium Channel Danielle, Angiotensin Converting Enzyme Inhibitor Start: 12-08-2023 End: 12-07-2024 take 1 capsule by mouth once daily amLODIPine-benaz epriL (Lotrel) 5-40 mg capsule Indications: Hypertension, unspecified type Take 1 capsule by mouth once daily. 30 capsule 3 12/08/2023 12/07/2024 Active Start: 08-15-2023 take 1 capsule by [facility] once daily Amlodipine-Benazepril Active 1 CAP PO daily August 15, 2023 12:00am Start: 06-09-2023 End: 12-08-2023 Amlodipine-Benazepril 5-10 m g capsule Active 1 NMA PO daily August 15, 2023 12:00am Blood Pressure Monitor (Bloo d Pressure Kit) kit (2 sources) Start: 06-15-2024 Blood Pressure Monitor (Blood Pressure Kit) kit Active 0 .Route 1 June 15, 2024 1:00am As directed Blood-Glucose Meter,Continuo us (Dexcom G6 Assembler Installer General) misc (10 sources) Start: 11-14-2021 Blood-Glucose Meter,Continuous (Dexcom G6 Assembler Installer General) misc Active 0 .Route 1 November 13, 2021 11:00pm As directed Start: 11-14-2021 Blood-Glucose Meter,Continuous (Dexcom G6 Assembler Installer General) misc Active 0 .Route 1 November 14, 2021 12:00am As directed Blood-Glucose Sensor (Dexcom G7 Sensor) device (8 sources) Start: 10-22-2024 Blood-Glucose Sensor (Dexcom G7 Sensor) device Active 0 .Route 9 October 22, 2024 10:31am As directed Start: 09-20-2024 End: 10-22-2024 Blood-Glucose Sensor (Dexcom G7 Sensor) device Discontinued 0 .Route 9 September 20, 2024 4:31pm October 22, 2024 10:31am As directed Start: 06-07-2024 End: 09-20-2024 Blood-Glucose Sensor (Dexcom G7 Sensor) device Discontinued 0 .Route 9 June 07, 2024 1:50pm September 20, 2024 4:32pm As directed Start: 12-16-2023 End: 06-07-2024 Blood-Glucose Sensor (Dexcom G7 Sensor) device Discontinued 0 .Route 9 December 16, 2023 12:00am June 07, 2024 1:50pm As directed Dexcom G6 Sensor device (6 sources) Start: [...] 03/01/24 at 2225, For 1 dose insulin lispro 100 unt/ml injectable solution (7 sources) Insulin Analog Start: 01-22-2025 Insulin Lispro (Humalog U-100 Insulin) 100 unit/mL solution Active 100 U SC .COMPLEX January 22, 2025 12:00am basal rate 0.5, sliding scale ac/hs, insulin pump Start: 06-08-2024 End: 01-22-2025 Insulin Lispro (Humalog U-10 0 Insulin) 100 unit/mL solution Discontinued 100 U SC DAILY 90 September 20, 2024 4:32pm January 22, 2025 12:37pm Start: 03-02-2024 0-15 Units, barraza bcutaneous, 3 [...] is greater than 400 mg/dL Insulin Pump Cart,Auto,Bt,G6 /7 (Omnipod 5 G6-G7 Pods (Gen 5)) cartridge (4 sources) Start: 12-29-2024 Insulin Pump C art,Auto,Bt,G6/7 (Omnipod 5 G6-G7 Pods (Gen 5)) cartridge Active 0 .Route 30 December 29, 2024 8:54am Type 1 diabetes mellitus Type 1 diabetes mellitus with hyperglycemia 1 pod q 72 hours Start: 06-07-2024 End: 12-29-2024 Insulin Pump Cart,Auto,Bt,G6 /7 (Omnipod 5 G6-G7 Pods (Gen 5)) cartridge Discontinued 0 .Route 30 June 07, 2024 1:00am December 29, 2024 8:54am Type 1 diabetes mellitus Type 1 diabetes mellitus with hyperglycemia 1 pod q 72 hours lisinopril 40 mg oral tablet (1 source) Angiotensin Converting Enzyme Inhibitor Start: 03-02-2024 40 mg, oral, Daily, First dose on Fri03/02/24 at 0900, Therapeutic interchange for Lotrel 5 mg/40 mg tablet mirtazapine 30 mg oral tablet (4 sources) Start: 05-30-2022 End: 06-09-2023 take 1 tablet by mouth once daily at bedtime mirtazapine (Remeron) 30 mg tablet Take 1 tablet (30 mg) by mouth once daily at bedtime. 0 05/30/2022 06/09/2023 Discontinued (Therapy completed) nystatin 174758 unt/ml oral suspension (2 sources) Polyene Antifungal Start: 06-01-2022 take 1 mL by mouth every six hours Nystatin Active 4 ML PO EVERY 6 HOURS 112 June 01, 2022 12:00am swish and swallow Omnipod 5 G6 Intro Kit, Gen 5, cartridge (6 sources) Start: 05-08-2023 Omnipod 5 G6 I ntro Kit, Gen 5, cartridge 05/08/2023 Active Start: 05-08-2023 Omnipod 5 G6 I ntro Kit, Gen 5, cartridge ondansetron 4 mg disintegrating oral tablet (8 sources) Serotonin-3 Receptor Antagonist Start: 01-22-2025 take 1 tablet by mouth every eight hours as needed for nausea Ondansetron 4 mg tablet,disintegrating Active 4 mg PO EVERY 8 HOURS NEEDED as needed for Nausea 15 0 January 22, 2025 12:00am Start: 03-02-2024 take 1 tablet by yolanda th every eight hours as needed 4 mg, oral, Every 8 hours PRN, nausea/vomiting, first line, Starting on Fri03/02/24 at 0615 Start: 03-01-2024 End: 03-01-2024 4 mg, intravenous, Once, On Fri03/01/24 at 2225, For 1 dose, When administering via IV Push, administer over 3-5 minutes. Start: 09-04-2023 take 1 tablet by yolanda th every eight hours as needed for nausea and vomiting Ondansetron 8 mg tablet,disintegrating Active 8 mg PO Q8H as needed for nausea and vomiting September 04, 2023 12:00am polyethylene glycol 3350 [id number] mg powder for oral solution (1 source) Osmotic Laxative Start: 03-02-2024 predniSONE 10 mg oral tablet (1 source) Start: 02-07-2025 take 5 tablets by mouth once daily, then take 3 tablets by mouth once daily, then take 2 tablets by mouth once daily, then take 1 tablet by mouth once daily Prednisone 10 mg tablet Active 10 mg PO DIRECTED 38 February 07, 2025 12:00am Take 5 tablets daily for 4 days, then 3 daily for 3 days, then 2 daily for 3 days, then 1 a day for 3 days ramipril 10 mg oral capsule (20 sources) Angiotensin Converting Enzyme Inhibitor Start: 10-22-2022 End: 10-22-2023 take 1 capsule by mouth once daily ramipril (Altace) 10 mg capsule Indications: Hypertension, unspecified type Take 1 capsule (10 mg) by mouth once daily. 90 capsule 3 10/22/2022 06/09/2023 Discontinued (Therapy completed) Start: 11-14-2021 End: 08-15-2023 take 1 capsule by mouth twice daily Ramipril 10 mg capsule Discontinued 10 mg PO TWICE A DAY June 17, 2022 12:50pm August 15, 2023 3:31pm blood pressures Start: 06-11-2021 End: 11-14-2021 take 1 capsule by mouth once daily Ramipril 10 mg Capsule Discontinued 10 mg PO DAILY September 25, 2021 12:00am November 14, 2021 10:32am vortioxetine 10 mg oral tablet (3 sources) [...] 10-Jun-2022 Complete atorvastatin 10 mg oral tablet (20 sources) HMG-CoA Reductase Inhibitor Start: 06-11-2021 End: 08-15-2023 take 1 tablet by mouth at bedtime Atorvastatin 10 mg Tablet Discontinued 10 mg PO AT BEDTIME September 25, 2021 12:00am August 15, 2023 3:30pm cholesterol lowering Blood-Glucose Sensor (Dexcom G6 Sensor) device (17 sources) Start: 09-11-2023 End: 12-16-2023 Blood-Glucose Sensor (Dexcom G6 Sensor) device Discontinued 0 .Route 9 September 11, 2023 7:47am December 16, 2023 3:18pm Type 1 diabetes mellitus 1 sensor q 10 days Start: 04-28-2023 End: 09-11-2023 Blood-Glucose Sensor (Dexcom G6 Sensor) device Discontinued 0 .Route 9 April 28, 2023 4:15pm September 11, 2023 7:47am Type 1 diabetes mellitus 1 sensor q 10 days Start: 04-28-2023 Blood-Glucose Sensor (Dexcom G6 Sensor) device Active 0 .Route 9 April 28, 2023 4:15pm 1 sensor q 10 days Start: 11-14-2021 End: 04-28-2023 Blood-Glucose Sensor (Dexcom G6 Sensor) device Discontinued 0 .Route 9 November 14, 2021 12:00am April 28, 2023 4:16pm Type 1 diabetes mellitus 1 sensor q 10 days Start: 11-14-2021 End: 04-28-2023 Blood-Glucose Sensor (Dexcom G6 Sensor) device Discontinued 0 .Route November 14, 2021 12:00am April 28, 2023 4:16pm 1 sensor q 10 days Start: 11-14-2021 Blood-Glucose Sensor (Dexcom G6 Sensor) device Active 0 .Route 9 November 13, 2021 11:00pm 1 sensor q 10 days Start: 11-14-2021 Blood-Glucose Sensor (Dexcom G6 Sensor) device Active 0 .Route November 14, 2021 12:00am 1 sensor q 10 days Blood-Glucose Transmitter (Dexcom G6 Transmitter) device (17 sources) Start: 09-11-2023 End: 06-07-2024 Blood-Glucose Transmitter (Dexcom G6 Transmitter) device Discontinued 0 .Route 1 September 11, 2023 7:47am June 07, 2024 1:50pm Type 1 diabetes mellitus 1 transmitter q 90 days Start: 04-28-2023 End: 09-11-2023 Blood-Glucose Transmitter (D excom G6 Transmitter) device Discontinued 0 .Route 1 April 28, 2023 4:15pm September 11, 2023 7:47am Type 1 diabetes mellitus 1 transmitter q 90 days Start: 04-28-2023 Blood-Glucose Transmitter (Dexcom G6 Transmitter) device Active 0 .Route April 28, 2023 4:15pm 1 transmitter q 90 days Start: 11-14-2021 End: 04-28-2023 Blood-Glucose Transmitter (D excom G6 Transmitter) device Discontinued 0 .Route 1 November 14, 2021 12:00am April 28, 2023 4:16pm Type 1 diabetes mellitus 1 transmitter q 90 days Start: 11-14-2021 End: 04-28-2023 Blood-Glucose Transmitter (D excom G6 Transmitter) device Discontinued 0 .Route November 142 12:00am April 28, 2023 4:16pm 1 transmitter q 90 days Start: 11-14-2021 Blood-Glucose Transmitter (Dexcom G6 Transmitter) device Active 0 .Route 1 November 13, 2021 11:00pm 1 transmitter q 90 days Start: 11-14-2021 Blood-Glucose Transmitter (Dexcom G6 Transmitter) device Active 0 .Route 1 November 14, 2021 12:00am 1 transmitter q 90 days Blood-Glucose,Assembler Installer General,Cont (Dexcom G6 Assembler Installer General) misc (2 sources) Start: 11-14-2021 End: 12-16-2023 Blood-Glucose,Assembler Installer General,Cont (Dexcom G6 Assembler Installer General) misc Discontinued 0 .Route 1 0 November 14, 2021 12:00am December 16, 2023 3:18pm Type 1 diabetes mellitus As directed buPROPion hydrochloride 100 mg oral tablet (12 sources) Aminoketone Start: 06-07-2022 End: 08-15-2023 take 1 tablet by mouth twice daily Bupropion Hcl 100 mg tablet Discontinued 100 mg PO TWICE A DAY June 17, 2022 1:00am August 15, 2023 3:30pm depression Start: 06-06-2022 buPROPion HCl - 100 MG Oral Tablet OEN TWICE A DAY Quantity: 60 Refills: 0 Ordered: 06-Jun-2022 Dexter Daniel MD Start : 06-Jun-2022 Active cholecalciferol 1.25 mg oral capsule (12 sources) Vitamin D Start: 11-14-2021 End: 12-16-2023 take 1 capsule by mouth every week Cholecalciferol (Vitamin D3) 1,250 mcg (50,000 unit) capsule Discontinued 1250 ug PO EVERY WEEK 24 0 November 14, 2021 12:00am December 16, 2023 2:59pm Vitamin d deficiency Vitamin D deficiency, unspecified dexamethasone 1 mg oral tablet (2 sources) Corticosteroid Start: 06-15-2024 End: 01-22-2025 take 1 tablet by mouth once Dexamethasone 1 mg tablet Discontinued 1 mg PO ONCE 1 0 June 15, 2024 1:00am January 22, 2025 12:33pm 250 ml glucose 50 mg/ml / sodium chloride 4.5 mg/ml injection (1 source) Start: 03-01-2024 End: 03-02-2024 take 150 mL intravenously every hour 150 mL/hr, intravenous, Continuous, Starting on Fri03/01/24 at 2120, Initiate when blood glucose between 150 mg/dL - 250 mg/dL. insulin aspart, human 100 unt/ml injectable solution (20 sources) Insulin Analog Start: 11-14-2021 End: 06-08-2024 Insulin Aspart U-100 (Novolog U-100 Insulin Aspart) 100 unit/mL solution Discontinued 100 U continuous subcutaneous infusion .continuous 90 1 June 07, 2024 1:50pm June 08, 2024 5:45pm Start: 05-22-2015 End: 03-01-2024 inject 95 [IU] [...] 0 05/22/2015 Active Start: 12-29-2014 End: 03-01-2024 Insulin Aspart (Novolog) 100 UNIT/ML Ml Discontinued 0 U SC DIRECTED December 29, 2014 12:00am August 15, 2023 3:31pm dm PT HAS INSULIN PUMP Please contact the information source for Protocol details. 3 ml insulin detemir 100 unt/ml pen [...] at bedtime. Backup for pump failure Active Insulin Pump Cart,Auto,Bt-Cn tr (Omnipod 5 G6 Intro Kit (Gen 5)) cartridge (15 sources) Start: 04-28-2023 End: 09-11-2023 Insulin Pump Cart,Auto,Bt-Cn tr (Omnipod 5 G6 Intro Kit (Gen 5)) cartridge Discontinued 0 .Route 1 0 April 28, 2023 4:12pm September 11, 2023 7:47am Type 1 diabetes mellitus As directed Start: 04-28-2023 Insulin Pump C art,Auto,Bt-Cntr (Omnipod 5 G6 Intro Kit (Gen 5)) cartridge Active 0 .Route 1 April 28, 2023 4:12pm As directed Start: 11-14-2021 End: 04-28-2023 Insulin Pump Cart,Auto,Bt-Cn tr (Omnipod 5 G6 Intro Kit (Gen 5)) cartridge Discontinued 0 .Route 1 0 November 14, 2021 12:00am April 28, 2023 4:12pm Type 1 diabetes mellitus As directed Start: 11-14-2021 End: 04-28-2023 Insulin Pump Cart,Auto,Bt-Cn tr (Omnipod 5 G6 Intro Kit (Gen 5)) cartridge Discontinued 0 .Route 1 November 14, 2021 12:00am April 28, 2023 4:12pm As directed Start: 11-14-2021 Insulin Pump C art,Auto,Bt-Cntr (Omnipod 5 G6 Intro Kit (Gen 5)) cartridge Active 0 .Route 1 November 13, 2021 11:00pm As directed Start: 11-14-2021 Insulin Pump C art,Auto,Bt-Cntr (Omnipod 5 G6 Intro Kit (Gen 5)) cartridge Active 0 .Route 1 November 14, 2021 12:00am As directed Insulin Pump Cart,Automated, Bt (Omnipod 5 G6 Pods (Gen 5)) cartridge (14 sources) Start: 09-11-2023 End: 03-08-2024 Insulin Pump Cart,Automated, Bt (Omnipod 5 G6 Pods (Gen 5)) cartridge Discontinued 0 .Route 30 September 11, 2023 7:47am March 08, 2024 9:19am Type 1 diabetes mellitus 1 pod q 72 hours Start: 11-14-2021 End: 09-11-2023 Insulin Pump Cart,Automated, Bt (Omnipod 5 G6 Pods (Gen 5)) cartridge Discontinued 0 .Route 30 November 14, 2021 12:00am September 11, 2023 7:47am Type 1 diabetes mellitus 1 pod q 72 hours Start: 11-14-2021 Insulin Pump C art,Automated,Bt (Omnipod 5 G6 Pods (Gen 5)) cartridge Active 0 .Route November 13, 2021 11:00pm 1 pod q 72 hours Start: 11-14-2021 Insulin Pump C art,Automated,Bt (Omnipod 5 G6 Pods (Gen 5)) cartridge Active 0 .Route November 14, 2021 12:00am 1 pod q 72 hours Insulin Pump Cart,Automated, Bt cartridge (4 sources) Start: 06-07-2024 End: 06-07-2024 Insulin Pump Cart,Automated, Bt cartridge Discontinued 0 .Route 30 June 07, 2024 1:50pm June 07, 2024 1:51pm Type 1 diabetes mellitus 1 pod q 72 hours Start: 03-08-2024 End: 06-07-2024 Insulin Pump Cart,Automated, Bt cartridge Discontinued 0 .Route 30 March 08, 2024 9:19am June 07, 2024 1:50pm Type 1 diabetes mellitus 1 pod q 72 hours 100 ml insulin, regular, human 1 unt/ml [...] mL, intravenous, Once in imaging, Starting on 03/01/24 at 1954, For 1 dose LORazepam 1 mg oral tablet (12 sources) Benzodiazepine Start: 06-06-2022 End: 08-15-2023 take 1 tablet by mouth at bedtime Lorazepam 1 mg tablet Discontinued 1 mg PO AT BEDTIME June 17, 2022 1:00am August 15, 2023 3:31pm anxiety 24 hr metoprolol succinate 50 mg extended release oral tablet (20 sources) beta-Adrenergic Danielle Start: 06-15-2024 End: 01-22-2025 take 1 tablet by mouth every twenty-four hours at bedtime Metoprolol Succinate 50 mg tablet extended release 24 hr Discontinued 50 mg PO AT BEDTIME June 15, 2024 1:00am January 22, 2025 12:34pm Start: 03-02-2024 End: 05-31-2024 take 1 tablet by mouth once daily, then take 1 tablet by mouth once daily metoprolol succinate XL (Toprol-XL) 50 mg 24 hr tablet Indications: Hypertension, unspecified type Take 1 tablet (50 mg) by mouth once daily. Take 1 tablet by mouth once nightly. 30 tablet 2 03/02/2024 05/31/2024 Active Start: 12-16-2023 End: 06-15-2024 take 1 tablet by mouth once daily Metoprolol Succinate 25 mg tablet extended release 24 hr Discontinued 25 mg PO daily December 16, 2023 12:00am June 15, 2024 5:00pm Start: 12-15-2023 take 2 tablets by mo ut once daily, then take 1 tablet by [...] 10-Jun-2022 Complete Start: 09-25-2021 End: 08-15-2023 take 1 capsule by mouth once daily Metoprolol Succinate 25 mg Capsule,Sprinkle,Er 24hr Discontinued 25 mg PO DAILY September 25, 2021 12:00am August 15, 2023 3:31pm blood pressure Start: 07-26-2021 End: 07-22-2022 take 1 tablet by mouth once daily Metoprolol Succinate ER 25 MG Oral Tablet Extended Release 24 Hour TAKE 1 TABLET DAILY. Quantity: 90 Refills: 3 Ordered: 26-Jul-2021 Dexter Daniel MD Start : 26-Jul-2021 End : 22-Jul-2022 Complete 1 ml morphine sulfate 4 mg/ml prefilled syringe (1 source) Opioid Agonist Start: 03-01-2024 End: 03-01-2024 4 mg, intravenous, Once, On Fri03/01/24 at 1820, For 1 dose rosuvastatin calcium 5 mg oral tablet (5 sources) HMG-CoA Reductase Inhibitor Start: 12-15-2023 End: 01-22-2025 take 1 tablet by mouth once daily Rosuvastatin 5 mg tablet Discontinued 5 mg PO daily December 16, 2023 12:00am January 22, 2025 12:34pm 1000 ml sodium chloride 9 mg/ml injection (2 sources) Start: 03-01-2024 End: 03-01-2024 1,000 mL, intravenous, at 999 mL/hr, Administer [...] Translations: [Generalized anxiety disorder] Chronic Cardiac dysrhythmias (16 sources) Sinus tachycardia; Translations: [Tachycardia, unspecified] Episodic Chronic kidney disease (11 sources) Chronic kidney disease, unspecified; Translations: [Chronic kidney disease] Onset: 12-08-2023 Resolved: 12-15-2023 Chronic Complications of surgical procedures or medical care (10 sources) Drug therapy finding; Translations: [Unspecified adverse [...] without complications] Chronic Diabetes mellitus without complication (18 sources) Insulin pump present; Translations: [Presence of insulin pump (external) (internal)] Episodic Diseases of white blood cells (16 sources) Leukocytosis; Translations: [Elevated white blood cell count, unspecified] Chronic Disorders of lipid metabolism (20 sources) Mixed hyperlipidemia; Translations: [Mixed hyperlipidemia] Onset: 10-22-2022 01-29-2022 Chronic Esophageal disorders (15 sources) Gastroesophageal reflux disease without esophagitis; Translations: [Gastro-esophageal reflux disease without esophagitis] Onset: 10-22-2022 10-22-2022 Chronic Essential hypertension (20 sources) Benign essential hypertension; Translations: [Benign essential hypertension] Onset: 10-22-2022 Chronic Fluid and electrolyte disorders (20 sources) Dehydration; Translations: [Dehydration] Episodic Gastritis and duodenitis (2 sources) Gastritis; Translations: [Gastritis, unspecified, without bleeding] 01-22-2025 Episodic Gout and other crystal arthropathies (3 sources) Gout; Translations: [Gout, unspecified] Onset: 12-15-2023 12-15-2023 Chronic Malaise and fatigue (1 source) Chronic fatigue syndrome; Translations: [Chronic fatigue syndrome] Chronic Mood disorders (20 sources) Mild major depression, single episode; Translations: [Major depressive disorder, single episode, mild] Onset: 10-22-2022 Resolved: 12-15-2023 10-22-2022 Chronic Mycoses (10 sources) Candidiasis of mouth; Translations: [Candidal stomatitis] 06-09-2022 Episodic Nausea and vomiting (2 sources) Nausea and vomiting; Translations: [Nausea with vomiting, unspecified] 01-22-2025 Episodic Noninfectious gastroenteritis (3 sources) Gastroenteritis; Translations: [Noninfective gastroenteritis and colitis, unspecified] 09-04-2023 Episodic Nutritional deficiencies (12 sources) Vitamin D deficiency; Translations: [Vitamin D deficiency, unspecified] 01-29-2022 Chronic Other ear and sense organ disorders (1 source) Unspecified sensorineural hearing loss; Translations: [Sensorineural hearing loss (SNHL) of right ear] 02-07-2025 Chronic Other ear and sense organ disorders (1 source) Unspecified hearing loss, right ear; Translations: [Unspecified hearing loss, right ear] Onset: 02-10-2025 Chronic Other ear and sense organ disorders (1 source) Tinnitus, right ear; Translations: [Tinnitus, right ear] Onset: 03-21-2025 Episodic Other liver diseases (4 sources) Fatty (change [...] Episodic Other nutritional; endocrine; and metabolic disorders (7 sources) H/O: diabetes mellitus; Translations: [Personal history [...] [Nontoxic goiter, unspecified] Onset: 09-02-2017 Chronic Unclassified (5 sources) Readiness finding; Translations: [Desire for detoxification] [...] Test Name Value Interpretation Reference Range Facility Brain W/WO Contraston 2024 Brain W/WO Contrast [facility] Imaging Services [address] [place] [address] [id number] Brain W/WO Contrast MR#: [id number] Acct: [id number] Name: JORGE HOLLIS Rep #: [id number] : 1995 M 29 From: Daly Frey PCP: Dr. Dexter Daniel MD Status: REG CLI Study: Brain W/WO Contrast Date of Exam: 03/02/25 Exam# [id number] Ordering Dr: Buddy Kang MD PROCEDURE: BRAIN W/WO CONTRAST 03/02/2025 REASON FOR EXAM: SUDDEN SENSORINEURAL HEARING LOSS Right ear hearing loss. Tinnitus for 3-4 weeks. TECHNIQUE: Procedure Code: [id number] Modality: MR Procedure: MRI brain without and with contrast, with additional attention to the internal auditory canals. Multiplanar and multisequence images were obtained. CONTRAST: Clariscan VOLUME: 19 mL intravenous. COMPARISON: Head CT of 01/22/2025. FINDINGS: Brain: No intracranial mass or mass effect is seen. No extra-axial fluid collection is noted. Internal auditory canals appear symmetric and within the normal range. No mass or area of abnormal enhancement is seen. No inner ear abnormality is seen on either side. The orbits appear within the normal range. Diffusion: Diffusion-weighted images demonstrate no area of restricted diffusion. Ventricles: Normal. Sinuses: Left sphenoid cyst appears unchanged. Mild mucosal thickening is noted at the bilateral ethmoid and maxillary sinuses. No air-fluid level is seen. Mastoids: Clear. Following intravenous contrast administration, no area of abnormal enhancement is seen. MRI/Brain W/WO Contrast IMPRESSION: 1. Internal auditory canals appear symmetric and within normal range. 2. No significant intracranial abnormality is seen. 3. Chronic appearing paranasal sinus disease. Reading Location: [place] [address] CC: Dr. Buddy Kang MD; Dr. Dexter Daniel MD Technical Laboratory Asst: Signed Normal [facility] Absolute lymphocyte countOrd ered By: Lavell Patel on 02-07-2025 Lymphocytes Auto (Unsp spec) [#/Vol] 1.05 10*3/uL 0.83-4.51 [facility] Absolute neutrophil countOrd ered By: Lavell Patel on 02-07-2025 Neutrophils (Bld) [#/Vol] 7.6 10*3/uL 2.0-7.7 [facility] Anion gap in Serum or Plasma Ordered By: Lavell Amanda on 02-07-2025 Anion gap [Moles/Vol] 23 mmol/L High 5-15 [facility] Automated lymphocyte count a s percentage of total leukocytesOrdered By: Lavell Amanda on 02-07-2025 Lymphocytes/100 WBC Auto (Unsp spec) 11.0 % Low 19-41 [facility] BUN/creatinine ratioOrdered By: Lavell Amanda on 02-07-2025 Urea nitrogen/Creatinine [Mass ratio] 11.3 mg/mg 03-14 [facility] Basic Metabolic Profile (BMP )on 02-07-2025 BUN/CRE 11.3 RATIO Normal 03-14 [facility] Comment on above: Performed By: #### L 500.2500 #### [facility] [address] [place], [address] Calcium [Mass/Vol] 9.5 mg/dL Normal 7.6-11.0 [facility] Comment on above: Performed By: #### L 500.2500 #### [facility] [address] [place], [address] Chloride [Moles/Vol] 99 mmol/L Normal 98-[address] [facility] Comment on above: Performed By: #### L 500.2500 #### [facility] [address] [place], [address] CO2 [Moles/Vol] 17.6 mmol/L Low 21.0-32.0 [facility] Comment on above: Performed By: #### L 500.2500 #### [facility] [address] [place], [address] Creatinine [Mass/Vol] 1.10 mg/dL Normal 0.70-1.20 [facility] Comment on above: Performed By: #### L 500.2500 #### [facility] [address] [place], [address] ECRCL 112.99 ml/min Normal 50-250 [facility] Comment on above: Performed By: #### L 500.2500 #### [facility] [address] [place], [address] GAP 23 High 5-15 [facility] Comment on above: Performed By: #### L 500.2500 #### [facility] [address] [place], [address] GFR/1.73 sq M.predicted among non-blacks MDRD (S/P/Bld) [Vol rate/Area] 94 mL/min/{1.73_m2} Normal >60 [facility] Comment on above: Result Comment: mL/m in/1.73m2 CKD-EPI Creatinine Equation (2020) Performed By: #### L 500.2500 #### [facility] [address] [place], [address] Glucose [Mass/Vol] 245 mg/dL High 70-99 [facility] Comment on above: Performed By: #### L 500.2500 #### [facility] [address] [place], [address] Potassium [Moles/Vol] 4.3 mmol/L Normal 3.3-5.1 [facility] Comment on above: Performed By: #### L [id number] #### [facility] [address] [place], [address] Sodium [Moles/Vol] 140 mmol/L Normal 133-145 [facility] Comment on above: Performed By: #### L [id number] #### [facility] [address] [place], [address] Urea nitrogen [Mass/Vol] 12 mg/dL Normal 4-19 [facility] Comment on above: Performed By: #### L 500.2500 #### [facility] [address] [place], [address] Basophil percentageOrdered B y: Lavell Patel on 02-07-2025 Basophils/100 WBC (Bld) 0.4 % 0-1 [facility] Bedside Glucoseon 02-07-2025 FINGERSTICK GLU 236 mg/dL High 74-106 [facility] Comment on above: Result Comment: MERY STAPLETON OF PATIENT CARE PER NURSING PROTOCOL Performed By: #### L 501.080 #### [facility] [address] [place], [address] CBC W/Diff, Automatedon 01-24 Absolute Lymph 1.05 X10 3/uL Normal 0.83-4.51 [facility] Comment on above: Performed By: #### L 501.080 #### [facility] [address] [place], [address] Absolute Neut 7.6 X10 3/uL Normal 2.0-7.7 [facility] Comment on above: Performed By: #### L 501.080 #### [facility] [address] [place], [address] Basophils/100 WBC (Bld) 0.4 % Normal 0-1 [facility] Comment on above: Performed By: #### L [id number] #### [facility] [address] [place], [address] Eosinophils/100 WBC (Bld) 0.1 % Normal 0-5 [facility] Comment on above: Performed By: #### L 501.080 #### [facility] [address] [place], [address] Erythrocyte distribution width (RBC) [Ratio] 13.2 % Normal 11.6-14.6 [facility] Comment on above: Performed By: #### L 501.080 #### [facility] [address] [place], [address] Hematocrit (Bld) [Volume fraction] 40.8 % Normal 40-54 [facility] Comment on above: Performed By: #### L 501.080 #### [facility] [address] [place], [address] Hemoglobin (Bld) [Mass/Vol] 14.1 g/dL Normal 13.0-16.5 [facility] Comment on above: Performed By: #### L 501.080 #### [facility] [address] [place], [address] IG% 0.600 Normal 0.0-0.9 [facility] Comment on above: Result Comment: IG% - Immature Granulocytes (promyelocytes, myelocytes and metamyelocytes) > 1% indicates that a LEFT SHIFT is Present. Performed By: #### L 501.080 #### [facility] [address] [place], [address] Lymphocytes/100 WBC (Bld) 11.0 % Low 19-41 [facility] Comment on above: Performed By: #### L 501.080 #### [facility] [address] [place], [address] MCH (RBC) [Entitic mass] 31.9 pg Normal 27.0-32.0 [facility] Comment on above: Performed By: #### L 501.080 #### [facility] [address] [place], [address] MCHC (RBC) [Mass/Vol] 34.6 g/dL Normal 32-36 [facility] Comment on above: Performed By: #### L 501.080 #### [facility] [address] [place], [address] MCV (RBC) [Entitic vol] 92.3 fL Normal 80-94 [facility] Comment on above: Performed By: #### L 501.080 #### [facility] [address] [place], [address] Monocytes/100 WBC (Bld) 7.8 % Normal 0-10 [facility] Comment on above: Performed By: #### L 501.080 #### [facility] [address] [place], [address] Neutrophils/100 WBC (Bld) 80.1 % High 47-70 [facility] Comment on above: Performed By: #### L 501.080 #### [facility] [address] [place], [address] Nucleated RBC (Bld) [#/Vol] 0 10*3/uL Normal 0-5 [facility] Comment on above: Performed By: #### L 501.080 #### [facility] [address] [place], [address] Platelet mean volume (Bld) [Entitic vol] 10.2 fL Normal 6.2-12.0 [facility] Comment on above: Performed By: #### L 501.080 #### [facility] [address] [place], [address] Platelets (Bld) [#/Vol] 144 10*3/uL Low 150-450 [facility] Comment on above: Performed By: #### L 501.080 #### [facility] [address] [place], [address] RBC (Bld) [#/Vol] 4.42 10*6/uL Low 4.6-6.2 [facility] Comment on above: Performed By: #### L 501.080 #### [facility] [address] [place], [address] RDW SD 44.9 fl High 35.1-43.9 [facility] Comment on above: Performed By: #### L 501.080 #### [facility] [address] [place], [address] WBC (Bld) [#/Vol] 9.5 10*3/uL Normal 4.4-11.0 [facility] Comment on above: Performed By: #### L 501.080 #### [facility] [address] [place], [address] Carbon dioxide, total [Moles /volume] in Central venous bloodOrdered By: Lavell Patel on 02-07-2025 CO2 [Moles/Vol] 17.6 mmol/L Low 21.0-32.0 [facility] Chloride assayOrdered By: Cheryl Patel on 02-07-2025 Chloride [Moles/Vol] 99 mmol/L 98-[address] [facility] Emergency Department Summary on 02-07-2025 Emergency Department Summary [facility] Medical Records Department [address] [place] [address] Emergency Department Summary 02/07/25 MR#: [id number] Acct: [id number] Name: JORGE HOLLIS Rep #: [id number] : 1995 29 From: Lavell Patel MD PCP: Dr. Dexter Daniel MD Status:REG ER Location: ED HPI History of Present Illness Chief Complaint: Ear Problem Informant: patient and family Narrative Narrative: 29-year-old male started having tinnitus while at work earlier today, was maybe 9 or 10 hours prior to evaluation, this progressed to complete hearing loss from his right ear. States when holding his cell phone up to his right ear he cannot hear anything, tinnitus persist, he had some brief disequilibrium but that has not been a prominent symptom nor dizziness or headache. He states he has developed some mild numbness throughout the right cheek, and family states that he had some swelling in that area. Patient denies having any pain here, he states he has some mild discomfort around the ear but not major pain. No focal neurologic symptoms distally. Patient is an alcoholic, he last drank last night heavily as he does each night. He is also a type I diabetic with an insulin pump. [facility] Medical History Pancreatitis GERD (gastroesophageal reflux disease) Seizures History of diabetes mellitus Anxiety Alcohol abuse Alcohol dependence Depression Presence of insulin pump Diabetes mellitus type 1 High cholesterol Vitamin D deficiency HTN (hypertension) Home Medications ???Medication ???Instructions ???Recorded ???Last Taken ???Type amlodipine 5 mg-benazepril 10 mg 1 cap PO QDAY 08/15/23 Unknown His tory capsule ondansetron 8 mg disintegrating 8 mg PO Q8H PRN nausea and 4 Unknown Rx tablet vomiting #20 tabs blood pressure monitor (Blood #1 ea 06/15/24 Unknown Rx Pressure Kit) blood-glucose sensor (Dexcom G7 #9 ea 10/22/24 Unknown Rx Sensor device) insulin pump cart,auto,BT,G6/7 #30 ea 12/29/24 Unknown Rx (Omnipod 5 G6-G7 Pods (Gen 5) subcutaneous cartridge) insulin lispro 100 unit/mL 100 unit subcut .COMPLEX 01/22/25 Unknown History subcutaneous solution (Humalog U-100 Insulin) ondansetron 4 mg disintegrating 4 mg PO Q8H PRN PRN Nausea #15 tab s 01/22/25 Unknown Rx tablet prednisone 10 mg tablet 10 mg PO UD #38 tabs 02/07/25 Unkn own Rx Allergy/AdvReac Type Severity Reaction Status Date / Time No Known Allergies Allergy Verified 02/07/25 20:02 Family History Mother Hypertension Surgical History No [...] in vision or diplopia ENT ENT ED: Reports as per HPI, abnormal hearing and tinnitus; Denies rhinorrhea or sore throat Cardiovascular Cardiovascular: Denies chest pain or palpitations Respiratory/Chest Respiratory/Chest: Denies cough or dyspnea Gastrointestinal Gastrointestinal: Denies abdominal pain, diarrhea, nausea or vomiting Genitourinary Genitourinary ED: Denies dysuria or hematuria Musculoskeletal Musculoskeletal: Denies back pain or neck pain Integumentary Denies abscess or rash Neurologic Neurologic: Reports disequilibrium; Denies headache(s), paresthesias or weakness Psychiatric Psychiatric: Denies anxiety or suicidal thoughts EXAM Physical Exam Const Vital Signs: 02/07/25 20:01 02/07/25 20:38 Temperature 98.2 F 99.3 F H Temperature Source Temporal Oral Pulse Rate 130 H 101 H Respiratory Rate 19 H 16 Blood Pressure 178/117 H 144/108 H Blood Pressure Mean 137 120 Pulse Ox 100 99 Oxygen Delivery Method Room Air Positive well nourished and well developed General Appearance ED: well developed and NAD HEENT Reports moist mucous membranes HEENT Narrative: TMs and EAC normal bilaterally and symmetric. No periauricular lymphadenopathy. No parotid tenderness and no discharge from Stensen's duct. I am not able to objectively appreciate any swelling in the face or significant asymmetry. Family points to his right cheek back to where the parotid is as where she thinks it looks more prominent than the other side. normocephalic and atraumatic Eyes PERRL and EOMs intact bilaterally Neck full ROM, no lymphadenopathy and supple Resp normal respiratory effort and (more content not included)... Normal [facility] Eosinophil percentageOrdered By: Lavell Patel on 02-07-2025 Eosinophils/100 WBC (Bld) 0.1 % 0-5 [facility] Erythrocyte distribution wid th ratioOrdered By: Lavell Patel on 02-07-2025 Erythrocyte distribution width (RBC) [Ratio] 13.2 % 11.6-14.6 [facility] Erythrocyte distribution wid th standard deviationOrdered By: Lavell Patel on 02-07-2025 Erythrocyte distribution width (RBC) [Ratio] 44.9 fl High 35.1-43.9 [facility] Glomerular filtration rate ( GFR) estimation/1.73 sq m using serum, plasma, or whole bOrdered By: Lavell Patel on 02-07-2025 GFR/1.73 sq M.predicted among non-blacks MDRD (S/P/Bld) [Vol rate/Area] 94 mL/min/{1.73_m2} >60 [facility] Comment on above: mL/min/1.73m2 CKD-EP I Creatinine Equation (2020) Glucose measurement at bedsi deOrdered By: Lavell Patel on 02-07-2025 Glucose [Mass/Vol] 236 mg/dL High 74-106 [facility] Comment on above: MANAGEMENT OF PATIEN T CARE PER NURSING PROTOCOL Hematocrit Auto (Bld) [Volum e fraction]Ordered By: Lavell Patel on 02-07-2025 Hematocrit (Bld) [Volume fraction] 40.8 % 40-54 [facility] Hemoglobin measurementOrdere d By: Lavell Patel on 02-07-2025 Hemoglobin (Bld) [Mass/Vol] 14.1 g/dL 13.0-16.5 [facility] Immature granulocytes/100 WB C Auto (Bld)Ordered By: Lavell Patel on 02-07-2025 Immature granulocytes/100 WBC (Bld) 0.600 % 0.0-0.9 [facility] Comment on above: IG% - Immature Granu locytes (promyelocytes, myelocytes and metamyelocytes) > 1% indicates that a LEFT SHIFT is Present. MCV (mean corpuscular volume ) determinationOrdered By: Lavell Patel on 02-07-2025 MCV (RBC) [Entitic vol] 92.3 fL 80-94 [facility] Mean corpuscular hemoglobin (MCH) determinationOrdered By: Lavell Patel on 02-07-2025 MCH (RBC) [Entitic mass] 31.9 pg 27.0-32.0 [facility] Mean corpuscular hemoglobin concentration (MCHC) determinationOrdered By: Lavell Patel on 02-07-2025 MCHC (RBC) [Mass/Vol] 34.6 g/dL 32-36 [facility] Mean platelet volume determi nationOrdered By: Lavell Patel on 02-07-2025 Platelet mean volume (Bld) [Entitic vol] 10.2 fL 6.2-12.0 [facility] Monocyte percentageOrdered B y: Lavell Patel on 02-07-2025 Monocytes/100 WBC (Bld) 7.8 % 0-10 [facility] Neutrophil percentageOrdered By: Lavell Patel on 02-07-2025 Neutrophils/100 WBC (Bld) 80.1 % High 47-70 [facility] Nucleated red blood cell per centageOrdered By: Lavell Patel on 02-07-2025 Nucleated RBC/100 WBC (Bld) [Ratio] 0 % 0-5 [facility] Platelet countOrdered By: Cheryl Patel on 02-07-2025 Platelets (Bld) [#/Vol] 144 10*3/uL Low 150-450 [facility] Potassium measurement (mass/ volume)Ordered By: Lavell Patel on 02-07-2025 Potassium (Unsp spec) [Mass/Vol] 4.3 mmol/L 3.3-5.1 [facility] RBC Auto (Bld) [#/Vol]Ordere d By: Lavell Patel on 02-07-2025 RBC (Bld) [#/Vol] 4.42 10*6/uL Low 4.6-6.2 [facility] Serum creatinine measurement (mass/volume)Ordered By: Lavell Patel on 02-07-2025 Creatinine [Mass/Vol] 1.10 mg/dL 0.70-1.20 [facility] Serum glucose measurement (m ass/volume)Ordered By: Lavell Patel on 02-07-2025 Glucose [Mass/Vol] 245 mg/dL High 70-99 [facility] Serum or plasma calcium bucky urement (mass/volume)Ordered By: Lavell Patel on 02-07-2025 Calcium [Mass/Vol] 9.5 mg/dL 7.6-11.0 [facility] Serum or plasma urea nitroge n measurement (mass/volume)Ordered By: Lavell Patel on 02-07-2025 Urea nitrogen [Mass/Vol] 12 mg/dL 4-19 [facility] Sodium levelOrdered By: Ge Patel on 02-07-2025 Sodium [Moles/Vol] 140 mmol/L 133-145 [facility] White blood cell (WBC) count Ordered By: Lavell Patel on 02-07-2025 WBC (Bld) [#/Vol] 9.5 10*3/uL 4.4-11.0 [facility] Absolute lymphocyte countOrd ered By: Ammon Nice on 01-22-2025 Lymphocytes Auto (Unsp spec) [#/Vol] 2.00 10*3/uL 0.83-4.51 [facility] Absolute neutrophil countOrd ered By: Ammon Nice on 01-22-2025 Neutrophils (Bld) [#/Vol] 4.3 10*3/uL 2.0-7.7 [facility] Alcohol, Blood (Medical)-Ser umon 01-22-2025 SERUM ETOH 36.6 mg/dL High <=10.0 [facility] Comment on above: Result Comment: This test is for medical purposes only. The legal definition of intoxication varies according to local law. Performed By: #### L 500.4100, L500.4050, L100.0100, L509.6000, L501.9520, L3100.5310 #### [facility] [address] [place], [place], [id number] Amphetamine detection with 1 000 ng/mL as cutoffOrdered By: Ammon Nice on 01-22-2025 Amphetamines Screen method >1000 ng/mL Ql (U) Negative < 200 ng/mL [facility] Anion gap in Serum or Plasma Ordered By: Ammon Nice on 01-22-2025 Anion gap [Moles/Vol] 30 mmol/L High 5-15 [facility] Automated lymphocyte count a s percentage of total leukocytesOrdered By: Ammon Nice on 01-22-2025 Lymphocytes/100 WBC Auto (Unsp spec) 27.4 % 19-41 [facility] BUN/creatinine ratioOrdered By: Ammon Nice on 01-22-2025 Urea nitrogen/Creatinine [Mass ratio] 7.7 mg/mg Low 10-20 [facility] Basophil percentageOrdered B y: Ammon Nice on 01-22-2025 Basophils/100 WBC (Bld) 1.0 % 0-1 [facility] Bedside Glucoseon 01-22-2025 FINGERSTICK GLU 249 mg/dL High 74-106 [facility] Comment on above: Result Comment: MERY STAPLETON OF PATIENT CARE PER NURSING PROTOCOL Performed By: #### L 501.080 #### [facility] [address] [place], [place], [address] FINGERSTICK GLU 337 mg/dL High 74-106 [facility] Comment on above: Result Comment: MERY GEMENT OF PATIENT CARE PER NURSING PROTOCOL Performed By: #### L 501.080 #### [facility] [address] [place], [address] FINGERSTICK GLU 310 mg/dL High 74-106 [facility] Comment on above: Result Comment: MERY GEMENT OF PATIENT CARE PER NURSING PROTOCOL Performed By: #### L 501.080 #### [facility] [address] [place], [address] FINGERSTICK GLU 180 mg/dL High 74-106 [facility] Comment on above: Result Comment: MERY GEMENT OF PATIENT CARE PER NURSING PROTOCOL Performed By: #### L 501.080 #### [facility] [address] [place], [address] FINGERSTICK GLU 56 mg/dL Low 74-106 [facility] Comment on above: Result Comment: MERY GEMENT OF PATIENT CARE PER NURSING PROTOCOL Performed By: #### L 501.080 #### [facility] [address] [place], [address] FINGERSTICK GLU 148 mg/dL High 74-106 [facility] Comment on above: Result Comment: MERY GEMENT OF PATIENT CARE PER NURSING PROTOCOL Performed By: #### L 501.080 #### [facility] [address] [place], [address] Bilirubin, totalOrdered By: Ammon Nice on 01-22-2025 Bilirubin [Mass/Vol] 0.55 mg/dL 0.00-1.[address] [facility] Brain/Head without Contrasto n 01-22-2025 Brain/Head without Contrast [facility] Imaging Services [address] [place] [address] Brain/Head without Contrast MR#: [id number] Acct: [id number] Name: JORGE HOLLIS Rep #: [id number] : 1995 M 29 From: Georgi Lund MD PCP: Dr. Dexter Daniel MD Status: REG ER Study: Brain/Head without Contrast Date of Exam: 12/26 Exam# [id number] Ordering Dr: Ammon Nice MD PROCEDURE: BRAIN/HEAD WITHOUT CONTRAST 01/22/2025 REASON FOR EXAM: AMNESIA TECHNIQUE: Procedure Code: CTBR Modality: CT Procedure: BRAIN/HEAD WITHOUT CONTRAST Coronal and Sagittal reconstruction series were provided. One or more dose reduction techniques were used (e.g., Automated exposure control, adjustment of the mA and/or kV according to patient size, use of iterative reconstruction technique. RADIATION DOSE SUMMARY: CTDlvol: 44.99 mGy DLP: 846.73 mGycm COMPARISON: CT head without contrast, 05/03/2022. FINDINGS: There is no evidence of acute intracranial hemorrhage or infarction. There are no abnormal intracranial masses or mass effects. The ventricular system and basilar cisterns are unremarkable. The skull base and calvarium are normal. 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 There is mucoperiosteal thickening of the right maxillary sinus, multiple ethmoidal air cells in the sphenoid sinuses. There are mucous retention cysts in both sphenoid sinuses. The mastoid air cells are unremarkable. The intraorbital contents are normal. The visualized extracranial soft tissues are normal. CT/Brain/Head without Contrast IMPRESSION: 1. Normal CT brain without contrast. 2. Multifocal sinusitis. Reading Location: [id number] CC: Dr. Ammon Nice MD; Dr. Dexter Daniel MD Technical Laboratory Asst: Signed Normal [facility] CBC W/Diff, Automatedon 12-26 Absolute Lymph 2.00 X10 3/uL Normal 0.83-4.51 [facility] Comment on above: Performed By: #### L 501.080 #### [facility] [address] [place], [place], [id number] Absolute Neut 4.3 X10 3/uL Normal 2.0-7.7 [facility] Comment on above: Performed By: #### L 501.080 #### [facility] [address] [place], [address] Basophils/100 WBC (Bld) 1.0 % Normal 0-1 [facility] Comment on above: Performed By: #### L 501.080 #### [facility] [address] [place], [address] Eosinophils/100 WBC (Bld) 0.5 % Normal 0-5 [facility] Comment on above: Performed By: #### L 501.080 #### [facility] [address] [place], [address] Erythrocyte distribution width (RBC) [Ratio] 12.9 % Normal 11.6-14.6 [facility] Comment on above: Performed By: #### L 501.080 #### [facility] [address] [place], [address] Hematocrit (Bld) [Volume fraction] 41.6 % Normal 40-54 [facility] Comment on above: Performed By: #### L 501.080 #### [facility] [address] [place], [address] Hemoglobin (Bld) [Mass/Vol] 14.5 g/dL Normal 13.0-16.5 [facility] Comment on above: Performed By: #### L 501.080 #### [facility] [address] [place], [address] IG% 0.100 Normal 0.0-0.9 [facility] Comment on above: Result Comment: IG% - Immature Granulocytes (promyelocytes, myelocytes and metamyelocytes) > 1% indicates that a LEFT SHIFT is Present. Performed By: #### L 501.080 #### [facility] [address] [place], [address] Lymphocytes/100 WBC (Bld) 27.4 % Normal 19-41 [facility] Comment on above: Performed By: #### L 501.080 #### [facility] [address] [place], [address] MCH (RBC) [Entitic mass] 32.3 pg High 27.0-32.0 [facility] Comment on above: Performed By: #### L 501.080 #### [facility] [address] [place], [address] MCHC (RBC) [Mass/Vol] 34.9 g/dL Normal 32-36 [facility] Comment on above: Performed By: #### L 501.080 #### [facility] [address] [place], [address] MCV (RBC) [Entitic vol] 92.7 fL Normal 80-94 [facility] Comment on above: Performed By: #### L 501.080 #### [facility] [address] [place], [address] Monocytes/100 WBC (Bld) 11.8 % High 0-10 [facility] Comment on above: Performed By: #### L 501.080 #### [facility] [address] [place], [address] Neutrophils/100 WBC (Bld) 59.2 % Normal 47-70 [facility] Comment on above: Performed By: #### L 501.080 #### [facility] [address] [place], [address] Nucleated RBC (Bld) [#/Vol] 0 10*3/uL Normal 0-5 [facility] Comment on above: Performed By: #### L 501.080 #### [facility] [address] [place], [address] Platelet mean volume (Bld) [Entitic vol] 10.2 fL Normal 6.2-12.0 [facility] Comment on above: Performed By: #### L 501.080 #### [facility] [address] [place], [address] Platelets (Bld) [#/Vol] 185 10*3/uL Normal 150-450 [facility] Comment on above: Performed By: #### L 501.080 #### [facility] [address] [place], [address] RBC (Bld) [#/Vol] 4.49 10*6/uL Low 4.6-6.2 [facility] Comment on above: Performed By: #### L 501.080 #### [facility] [address] [place], [address] RDW SD 43.8 fl Normal 35.1-43.9 [facility] Comment on above: Performed By: #### L 501.080 #### [facility] [address] [place], [address] WBC (Bld) [#/Vol] 7.3 10*3/uL Normal 4.4-11.0 [facility] Comment on above: Performed By: #### L 501.080 #### [facility] [address] [place], [address] [place] dioxide, total [Moles /volume] in Central venous bloodOrdered By: Ammon Nice on 01-22-2025 CO2 [Moles/Vol] 14.8 mmol/L Low 21.0-32.0 [facility] Chloride assayOrdered By: Jatin Nice on 01-22-2025 Chloride [Moles/Vol] 99 mmol/L 98-[address] [facility] Comprehensive Metabolic Prof ilon 01-22-2025 Albumin [Mass/Vol] 4.6 g/dL Normal 3.5-5.0 [facility] Comment on above: Performed By: #### L 501.080 #### [facility] [address] [place], [address] Albumin/Globulin [Mass ratio] 1.8 {ratio} Normal 0.9-2.4 [facility] Comment on above: Performed By: #### L 501.080 #### [facility] [address] [place], [address] ALK PHOS 99 U/L Normal 40-129 [facility] Comment on above: Performed By: #### L 501.080 #### [facility] [address] [place], [address] ALT [Catalytic activity/Vol] 129 U/L High <=46 [facility] Comment on above: Performed By: #### L 501.080 #### [facility] [address] [place], [address] AST [Catalytic activity/Vol] 133 U/L High <=37 [facility] Comment on above: Performed By: #### L 501.080 #### [facility] [address] [place], [address] Bilirubin [Mass/Vol] 0.55 mg/dL Normal 0.00-1.[address] [facility] Comment on above: Performed By: #### L 501.080 #### [facility] [address] [place], [address] BUN/CRE 7.7 RATIO Low 10-20 [facility] Comment on above: Performed By: #### L 501.080 #### [facility] [address] [place], [address] Calcium [Mass/Vol] 9.7 mg/dL Normal 7.6-11.0 [facility] Comment on above: Performed By: #### L 501.080 #### [facility] [address] [place], [address] Chloride [Moles/Vol] 99 mmol/L Normal 98-[address] [facility] Comment on above: Performed By: #### L 501.080 #### [facility] [address] [place], [address] CO2 [Moles/Vol] 14.8 mmol/L Low 21.0-32.0 [facility] Comment on above: Performed By: #### L 501.080 #### [facility] [address] [place], [address] Creatinine [Mass/Vol] 0.90 mg/dL Normal 0.70-1.20 [facility] Comment on above: Performed By: #### L 501.080 #### [facility] [address] [place], [address] ECRCL 138.10 ml/min Normal 50-250 [facility] Comment on above: Performed By: #### L 501.080 #### [facility] [address] [place], [address] GAP 30 High 5-15 [facility] Comment on above: Performed By: #### L 501.080 #### [facility] [address] [place], [address] GFR/1.73 sq M.predicted among non-blacks MDRD (S/P/Bld) [Vol rate/Area] 120 mL/min/{1.73_m2} Normal >60 [facility] Comment on above: Result Comment: mL/m in/1.73m2 CKD-EPI Creatinine Equation (2020) Performed By: #### L 501.080 #### [facility] [address] [place], [address] Globulin (S) [Mass/Vol] 2.6 g/dL Normal 2.2-4.2 [facility] Comment on above: Performed By: #### L 501.080 #### [facility] [address] [place], [address] Glucose [Mass/Vol] 65 mg/dL Low 70-99 [facility] Comment on above: Performed By: #### L 501.080 #### [facility] [address] [place], [address] Potassium [Moles/Vol] 3.5 mmol/L Normal 3.3-5.1 [facility] Comment on above: Performed By: #### L 501.080 #### [facility] [address] [place], [address] Sodium [Moles/Vol] 144 mmol/L Normal 133-145 [facility] Comment on above: Performed By: #### L 501.080 #### [facility] [address] [place], [address] T PROT 7.2 g/dL Normal 5.9-8.4 [facility] Comment on above: Performed By: #### L 501.080 #### [facility] [address] [place], [address] Urea nitrogen [Mass/Vol] 7 mg/dL Normal 4-19 [facility] Comment on above: Performed By: #### L 501.080 #### [facility] [address] [place], [address] Emergency Department Summary on 01-22-2025 Emergency Department Summary [facility] Medical Records Department [address] [place] [address] Emergency Department Summary 01/22/25 MR#: [id number] Acct: [id number] Name: JORGE HOLLIS Rep #: [id number] : 1995 29 From: Ammon Nice MD PCP: Dr. Dexter Daniel MD Status:REG ER Location: ED HPI History of Present Illness Chief Complaint: Hypoglycemia Narrative Narrative: 29-year-old male past medical history of diabetes, has an insulin pump, presents with hypoglycemia and nausea since yesterday evening. History and physical is limited as patient tends to say I do not remember. He states he does not feel well. His girlfriend is at the bedside who states that they went to the [employer] game yesterday, and the patient was able to drive them to an back home. He dropped her off. She called him at 1130 this morning, few hours ago, and noticed that he had more of a mental status change. He was not feeling well. He cannot recall if he has been vomiting or what he ate last. She states that she looked on his insulin pump and he gave himself a bolus of 0.5 units and runs at the basal rate. He may take Humalog exogenously. Per EMS, his blood sugars today prior to arrival around 56. He was bolused glucose, and now has blood sugar in the 1 teens. He presents with hypoglycemia and nausea. [facility] Medical History History of diabetes mellitus Anxiety Alcohol abuse Alcohol dependence Depression Presence of insulin pump Diabetes mellitus type 1 High cholesterol Vitamin D deficiency HTN (hypertension) Home Medications ???Medication ???Instructions ???Recorded ???Last Taken ???Type amlodipine 5 mg-benazepril 10 mg 1 cap PO QDAY 08/15/23 Unknown His tory capsule ondansetron 8 mg disintegrating 8 mg PO Q8H PRN nausea and 4 Unknown Rx tablet vomiting #20 tabs blood pressure monitor (Blood #1 ea 06/15/24 Unknown Rx Pressure Kit) blood-glucose sensor (Dexcom G7 #9 ea 10/22/24 Unknown Rx Sensor device) insulin pump cart,auto,BT,G6/7 #30 ea 12/29/24 Unknown Rx (Omnipod 5 G6-G7 Pods (Gen 5) subcutaneous cartridge) insulin lispro 100 unit/mL 100 unit subcut .COMPLEX 01/22/25 Unknown History subcutaneous solution (Humalog U-100 Insulin) ondansetron 4 mg disintegrating 4 mg PO Q8H PRN PRN Nausea #15 tab s 01/22/25 Unknown Rx tablet Allergy/AdvReac Type Severity Reaction Status Date / Time No Known Allergies Allergy Verified 01/22/25 12:29 Family History Mother Hypertension Surgical History No history of previous surgery Social History household members: none housing: apartment Smoking Status: Never smoker alcohol intake: current alcohol intake frequency: a few times a week Alcohol type: beer and hard liquor substance use type: does not use ROS ROS ED ROS Narrative Review of systems positive for low blood sugar, nausea, shakiness, and mental status change. No recent fevers or chills. Questionable vomiting. No exacerbating or alleviating factors. EXAM Physical Exam Narrative Exam Narrative: Afebrile. Vital signs noted. Nontoxic-appearing. Cardiovascular examination reveals mild tachycardia. Lungs are clear to auscultation bilaterally. Abdomen is soft and nontender without guarding or rebound. Positive bowel sounds. Neurological examination nonfocal, nonlateralizing. No pedal edema. Const Vital Signs: 01/22/25 12:29 01/22/25 12:32 01/22/25 13:29 Temperature 98.1 F Temperature Source Oral Pulse Rate 125 H 104 H Respiratory Rate 28 H 20 H Respiratory Effort Normal Non-Labored Respiratory Pattern Normal Blood Pressure 134/93 H 129/89 H Blood Pressure Mean 106 102 Pulse Ox 100 100 Oxygen Delivery Method Room Air Room Air 01/22/25 14:00 01/22/25 15:00 01/22/25 16:00 Temperature Temperature Source Pulse Rate 83 23 L 100 Respiratory Rate 17 16 Respiratory Effort Respiratory Pattern Blood Pressure 139/93 H 149/102 H 126/80 H Blood Pressure Mean 108 117 95 Pulse Ox 100 100 100 Oxygen Delivery Method Room Air Room Air 01/22/25 17:00 01/22/25 18:00 Temperature Temperature Source Pulse Rate 77 Respiratory Rate Respiratory Effort Respiratory Pattern Blood Pressure 156/80 H 146/111 H Blood Pressure Mean 105 122 Pulse Ox Oxygen Delivery Method MDM MDM MDM Narrative Medical decision making narrative: Differential diagnosis includes but not limited to hypoglycemia versus decreased p.o. intake with insulin use versus pancreatitis versus gastritis. Will not bolus the patient seconda (more content not included)... Normal [facility] Eosinophil percentageOrdered By: Ammon Nice on 01-22-2025 Eosinophils/100 WBC (Bld) 0.5 % 0-5 [facility] Erythrocyte distribution wid th ratioOrdered By: Ammon Nice on 01-22-2025 Erythrocyte distribution width (RBC) [Ratio] 12.9 % 11.6-14.6 [facility] Erythrocyte distribution wid th standard deviationOrdered By: Ammon Nice on 01-22-2025 Erythrocyte distribution width (RBC) [Ratio] 43.8 fl 35.1-43.9 [facility] Glomerular filtration rate ( GFR) estimation/1.73 sq m using serum, plasma, or whole bOrdered By: Ammon Nice on 01-22-2025 GFR/1.73 sq M.predicted among non-blacks MDRD (S/P/Bld) [Vol rate/Area] 120 mL/min/{1.73_m2} >60 [facility] Comment on above: mL/min/1.73m2 CKD-EP I Creatinine Equation (2020) [facility] deOrdered By: Ammon Nice on 01-22-2025 Glucose [Mass/Vol] 249 mg/dL High 74-106 [facility] Comment on above: MANAGEMENT OF PATIEN T CARE PER NURSING PROTOCOL Hematocrit Auto (Bld) [Volum e fraction]Ordered By: Ammon Nice on 01-22-2025 Hematocrit (Bld) [Volume fraction] 41.6 % 40-54 [facility] Hemoglobin measurementOrdere d By: Ammon Nice on 01-22-2025 Hemoglobin (Bld) [Mass/Vol] 14.5 g/dL 13.0-16.5 [facility] Immature granulocytes/100 WB C Auto (Bld)Ordered By: Ammon Nice on 01-22-2025 Immature granulocytes/100 WBC (Bld) 0.100 % 0.0-0.9 [facility] Comment on above: IG% - Immature Granu locytes (promyelocytes, myelocytes and metamyelocytes) > 1% indicates that a LEFT SHIFT is Present. Laboratory - Chemistry and C hemistry - challengeOrdered By: Ammon Nice on 01-22-2025 AST [Catalytic activity/Vol] 133 U/L High <38 [facility] Lipaseon 01-22-2025 Lipase [Catalytic activity/Vol] 66 U/L Normal 13-75 [facility] Comment on above: Result Comment: Ligia samano note: LIPASE revised reference range effective 22. New Lipase methodology. Expected to produce lower values than the previous assay method. NEW Reference Range: 13 - 75 U/L Performed By: #### L 500.4100, L500.4050, L100.0100, L509.6000, L501.9520, L3100.5310 #### [facility] [address] [place], [address] Lipase [Catalytic activity/Vol] 62 U/L Normal 13-75 [facility] Comment on above: Result Comment: Ligia samano note: LIPASE revised reference range effective 22. New Lipase methodology. Expected to produce lower values than the previous assay method. NEW Reference Range: 13 - 75 U/L Performed By: #### L 501.080 #### [facility] [address] [facility] [place], [address] Lipase measurementOrdered By : Ammon Nice on 01-22-2025 Lipase [Catalytic activity/Vol] 66 U/L 13-75 [facility] Comment on above: Please note:LIPASE r evised reference range effective 22. New Lipase methodology. Expected to produce lower values than the previous assay method. NEW Reference Range: 13 - 75 U/L MCV (mean corpuscular volume ) determinationOrdered By: Ammon Nice on 01-22-2025 MCV (RBC) [Entitic vol] 92.7 fL 80-94 [facility] Mean corpuscular hemoglobin (MCH) determinationOrdered By: Ammon Nice on 01-22-2025 MCH (RBC) [Entitic mass] 32.3 pg High 27.0-32.0 [facility] Mean corpuscular hemoglobin concentration (MCHC) determinationOrdered By: Ammon Nice on 01-22-2025 MCHC (RBC) [Mass/Vol] 34.9 g/dL 32-36 [facility] Mean platelet volume determi nationOrdered By: Ammon Nice on 01-22-2025 Platelet mean volume (Bld) [Entitic vol] 10.2 fL 6.2-12.0 [facility] Monocyte percentageOrdered B y: Ammon Nice on 01-22-2025 Monocytes/100 WBC (Bld) 11.8 % High 0-10 [facility] Neutrophil percentageOrdered By: Ammon Nice on 01-22-2025 Neutrophils/100 WBC (Bld) 59.2 % 47-70 [facility] No Panel InformationOrdered By: Ammon Nice on 01-22-2025 Urine Buprenorphine Qualitative Negative < 200 ng/mL [facility] Urine Oxycodone Screen Negative < 100 ng/mL [facility] Nucleated red blood cell per centageOrdered By: Ammon Nice on 01-22-2025 Nucleated RBC/100 WBC (Bld) [Ratio] 0 % 0-5 [facility] Platelet countOrdered By: Jatin Nice on 01-22-2025 Platelets (Bld) [#/Vol] 185 10*3/uL 150-450 [facility] Potassium measurement (mass/ volume)Ordered By: Ammon Nice on 01-22-2025 Potassium (Unsp spec) [Mass/Vol] 3.5 mmol/L 3.3-5.1 [facility] Quantitative urine opiates m easurementOrdered By: Ammon Nice on 01-22-2025 Opiates Ql (U) Negative < 300 ng/mL [facility] RBC Auto (Bld) [#/Vol]Ordere d By: Ammon Nice on 01-22-2025 RBC (Bld) [#/Vol] 4.49 10*6/uL Low 4.6-6.2 [facility] Screening urine fentanyl wade surementOrdered By: Ammon Nice on 01-22-2025 fentaNYL Screen Ql (U) Negative <5 ng/mL [facility] Comment on above: CONFIRMATORY TESTING FOR ALL POSITIVE URINE DRUG SCREENRESULTS WILL ONLY BE SENT OUT UPON PHYSICIAN ORDER. Shadia Pro Urine Drug Screen methods provide only preliminaryanalytical test results. A more specific alternate chemicalmethod must be used in order to obtain a confirmedanalytical result. Gas chromatography/mass spectrometery(GC/MS) is the preferred confirmatory method. Clinicalconsideration and professional judgement should be appliedto any drug of abuse test result, particularly whenpreliminary positive results are used. Urine TCA testing must be ordered separately. Use test mnemonic: UTCA Serum creatinine measurement (mass/volume)Ordered By: Ammon Nice on 01-22-2025 Creatinine [Mass/Vol] 0.90 mg/dL 0.70-1.20 [facility] Serum globulin measurementOr dered By: Ammon Nice on 01-22-2025 Globulin (S) [Mass/Vol] 2.6 g/dL 2.2-4.2 [facility] Serum glucose measurement (m ass/volume)Ordered By: Ammon Nice on 01-22-2025 Glucose [Mass/Vol] 65 mg/dL Low 70-99 [facility] Serum or plasma alanine nava otransferase (ALT) measurementOrdered By: Ammon Nice on 01-22-2025 ALT [Catalytic activity/Vol] 129 U/L High <47 [facility] Serum or plasma albumin bucky urement (mass/volume)Ordered By: Ammon Nice on 01-22-2025 Albumin [Mass/Vol] 4.6 g/dL 3.5-5.0 [facility] Serum or plasma albumin/glob ulin mass ratioOrdered By: Ammon Nice on 01-22-2025 Albumin/Globulin [Mass ratio] 1.8 {ratio} 0.9-2.4 [facility] Serum or plasma alkaline alfonso sphatase measurementOrdered By: Ammon Nice on 01-22-2025 ALP [Catalytic activity/Vol] 99 U/L 40-129 [facility] Serum or plasma calcium bucky urement (mass/volume)Ordered By: Ammon Nice on 01-22-2025 Calcium [Mass/Vol] 9.7 mg/dL 7.6-11.0 [facility] Serum or plasma ethanol bucky urement (mass/volume)Ordered By: Ammon Nice on 01-22-2025 Ethanol [Mass/Vol] 36.6 mg/dL High <10.1 [facility] Comment on above: This test is for med ical purposes only. The legal definition of intoxication varies according to local law. Serum or plasma urea nitroge n measurement (mass/volume)Ordered By: Ammon Nice on 01-22-2025 Urea nitrogen [Mass/Vol] 7 mg/dL 4-19 [facility] Sodium levelOrdered By: Ammon Nice on 01-22-2025 Sodium [Moles/Vol] 144 mmol/L 133-145 [facility] Total proteinOrdered By: Veronica Nice on 01-22-2025 Protein [Mass/Vol] 7.2 g/dL 5.9-8.4 [facility] Urine Drug Screen (VISTA)on 01-22-2025 AMPHETAMINES Negative Normal <1000 ng/mL [facility] Comment on above: Performed By: #### L 500.4100, L500.4050, L100.0100, L509.6000, L501.9520, L3100.5310 #### [facility] [address] [place] [address] BARBITIURATES Negative Normal < 200 ng/mL [facility] Comment on above: Performed By: #### L 500.4100, L500.4050, L100.0100, L509.6000, L501.9520, L3100.5310 #### [facility] [address] [place] [address] BENZODIAZIPINE Negative Normal < 200 ng/mL [facility] Comment on above: Performed By: #### L 500.4100, L500.4050, L100.0100, L509.6000, L501.9520, L3100.5310 #### [facility] [address] [place] [address] BUP Ur Drug Scr Negative Normal < 200 ng/mL [facility] Comment on above: Performed By: #### L 500.4100, L500.4050, L100.0100, L509.6000, L501.9520, L3100.5310 #### [facility] [address] [place] [address] COCAINE Negative Normal < 300 ng/mL [facility] Comment on above: Performed By: #### L 500.4100, L500.4050, L100.0100, L509.6000, L501.9520, L3100.5310 #### [facility] [address] [place], [address] Fentanyl Negative Normal <5 ng/mL [facility] Comment on above: Result Comment: CONF IRMATORY TESTING FOR ALL POSITIVE URINE DRUG SCREEN RESULTS WILL ONLY BE SENT OUT UPON PHYSICIAN ORDER. Shadia Pro Urine Drug Screen methods provide only preliminary analytical test results. A more specific alternate chemical method must be used in order to obtain a confirmed analytical result. Gas chromatography/mass spectrometery (GC/MS) is the preferred confirmatory method. Clinical consideration and professional judgement should be applied to any drug of abuse test result, particularly when preliminary positive results are used. Urine TCA testing must be ordered separately. Use test mnemonic: UTCA Performed By: #### L 500.4100, L500.4050, L100.0100, L509.6000, L501.9520, L3100.5310 #### [facility] [address] [place], [address] METHADONE Negative Normal < 300 ng/mL [facility] Comment on above: Performed By: #### L 500.4100, L500.4050, L100.0100, L509.6000, L501.9520, L3100.5310 #### [facility] [address] [place], [place], [facility] OPIATES Negative Normal < 300 ng/mL [facility] Comment on above: Performed By: #### L 500.4100, L500.4050, L100.0100, L509.6000, L501.9520, L3100.5310 #### [facility] [address] [place], [address] OXYCODONE Negative Normal < 100 ng/mL [facility] Comment on above: Performed By: #### L 500.4100, L500.4050, L100.0100, L509.6000, L501.9520, L3100.5310 #### [facility] [address] [place], [address] PCP Negative Normal < 25 ng/mL [facility] Comment on above: Performed By: #### L 500.4100, L500.4050, L100.0100, L509.6000, L501.9520, L3100.5310 #### [facility] [address] [place], [place], [id number] [phone] THC Negative Normal < 50 ng/mL [facility] Comment on above: Performed By: #### L 500.4100, L500.4050, L100.0100, L509.6000, L501.9520, L3100.5310 #### [facility] [address] [place], [place], [id number] ([phone] Urine benzodiazepine levelOr dered By: Ammon Nice on 01-22-2025 Benzodiazepines Ql (U) Negative < 200 ng/mL [facility] Urine cocaine levelOrdered B y: Ammon Nice on 01-22-2025 Cocaine Ql (U) Negative < 300 ng/mL [facility] Urine ddrgv-2-vdlimlvxkquorn abinol (THC) measurementOrdered By: Ammon Nice on 01-22-2025 Cannabinoids Screen Ql (U) Negative < 50 ng/mL [facility] Urine phencyclidine (PCP) de tectionOrdered By: Ammon Nice on 01-22-2025 Phencyclidine Ql (U) Negative < 25 ng/mL [facility] White blood cell (WBC) count Ordered By: Ammon Nice on 01-22-2025 WBC (Bld) [#/Vol] 7.3 10*3/uL 4.4-11.0 [facility] Endocrinology Visit Reporton 09-20-2024 Endocrinology Visit Report [facility] [address] [place], [place] [address] OFFICE VISIT Date of Service: 09/20/24 MR#: [id number] Acct: [id number] Name: JORGE HOLLIS DALY Rep #: [id number] : 1995 Provider: Jessica Chambers Age/Sex: 29/M [place] [facility] [place]: [place] Intake Vital Signs 06/15/24 15:53 [...] 09/2009/20/24 Rx subcutaneous solution (Humalog U-100 Insulin) [facility] Medical History History of diabetes mellitus Anxiety [...] Cardio R (more content not included)... Normal [facility] Testosterone, Total / Freeon 06-23-2024 TESTOSTER,FREE 15.15 ng/dL Normal 5.00-21.00 [facility] Comment on above: Order Comment: N Performed By: #### L 500.4100, L500.4050, L100.0100, L509.6000, L501.9520, L3100.5310 #### [facility] [address] [place], [address] TESTOSTER,TOTAL 481 ng/dL Normal 264-916 [facility] Comment on above: Order Comment: N Result Comment: Adul t male reference interval is based on a population of healthy nonobese males (BMI <30) between 19 and 39 years old. wilver Sandoval.al. JCEM 2017,102;2334-3235. PMID: [id number]. Performed By: #### L 500.4100, L500.4050, L100.0100, L509.6000, L501.9520, L3100.5310 #### [facility] [address] [place], [place], [phone] (536) TESTOSTERONE,%F 3.15 Normal 1.50-4.20 [facility] Comment on above: Order Comment: N Result Comment: Perf ormed at: [facility] [address] [id number] Stator Connector: Mick Rizvi PhD, Phone: [phone] Performed at: [facility] [address] [id number] Stator Connector: Khalif Kapoor MD, Phone: [phone] Performed By: #### L 500.4100, L500.4050, L100.0100, L509.6000, L501.9520, L3100.5310 #### [facility] [address] [place], [address] CORTISOL SERUMon 06-21-2024 CORTISOL 1.50 ug/dL Low 3.44-22.45 [facility] Comment on above: Result Comment: Adul t (AM) 5.27 - 22.45 ug/dL Adult (PM) 3.44 - 16.76 ug/dL Performed By: #### L 500.4100, L500.4050, L100.0100, L509.6000, L501.9520, L3100.5310 #### [facility] [address] [place], [address] CBC W/Diff, Automatedon 05-27 Absolute Lymph 1.25 X10 3/uL Normal 0.83-4.51 [facility] Comment on above: Performed By: #### L 500.4100, L500.4050, L100.0100, L509.6000, L501.9520, L3100.5310 #### [facility] [address] [place], [address] Absolute Neut 6.0 X10 3/uL Normal 2.0-7.7 [facility] Comment on above: Performed By: #### L 500.4100, L500.4050, L100.0100, L509.6000, L501.9520, L3100.5310 #### [facility] [address] [place], [address] Basophils/100 WBC (Bld) 0.7 % Normal 0-1 [facility] Comment on above: Performed By: #### L 500.4100, L500.4050, L100.0100, L509.6000, L501.9520, L3100.5310 #### [facility] [address] [place], [address] Eosinophils/100 WBC (Bld) 0.0 % Normal 0-5 [facility] Comment on above: Performed By: #### L 500.4100, L500.4050, L100.0100, L509.6000, L501.9520, L3100.5310 #### [facility] [address] [place], [address] Erythrocyte distribution width (RBC) [Ratio] 12.6 % Normal 11.6-14.6 [facility] Comment on above: Performed By: #### L 500.4100, L500.4050, L100.0100, L509.6000, L501.9520, L3100.5310 #### [facility] [address] [place], [address] Hematocrit (Bld) [Volume fraction] 42.8 % Normal 40-54 [facility] Comment on above: Performed By: #### L 500.4100, L500.4050, L100.0100, L509.6000, L501.9520, L3100.5310 #### [facility] [address] [place], [address] Hemoglobin (Bld) [Mass/Vol] 14.7 g/dL Normal 13.0-16.5 [facility] Comment on above: Performed By: #### L 500.4100, L500.4050, L100.0100, L509.6000, L501.9520, L3100.5310 #### [facility] [address] [place], [address] IG% 0.400 Normal 0.0-0.9 [facility] Comment on above: Result Comment: IG% - Immature Granulocytes (promyelocytes, myelocytes and metamyelocytes) > 1% indicates that a LEFT SHIFT is Present. Performed By: #### L 500.4100, L500.4050, L100.0100, L509.6000, L501.9520, L3100.5310 #### [facility] [address] [place], [address] Lymphocytes/100 WBC (Bld) 15.4 % Low 19-41 [facility] Comment on above: Performed By: #### L 500.4100, L500.4050, L100.0100, L509.6000, L501.9520, L3100.5310 #### [facility] [address] [place], [address] MCH (RBC) [Entitic mass] 30.9 pg Normal 27.0-32.0 [facility] Comment on above: Performed By: #### L 500.4100, L500.4050, L100.0100, L509.6000, L501.9520, L3100.5310 #### [facility] [address] [place], [address] MCHC (RBC) [Mass/Vol] 34.3 g/dL Normal 32-36 [facility] Comment on above: Performed By: #### L 500.4100, L500.4050, L100.0100, L509.6000, L501.9520, L3100.5310 #### [facility] [address] [place], [address] MCV (RBC) [Entitic vol] 90.1 fL Normal 80-94 [facility] Comment on above: Performed By: #### L 500.4100, L500.4050, L100.0100, L509.6000, L501.9520, L3100.5310 #### [facility] [address] [place], [address] Monocytes/100 WBC (Bld) 9.8 % Normal 0-10 [facility] Comment on above: Performed By: #### L 500.4100, L500.4050, L100.0100, L509.6000, L501.9520, L3100.5310 #### [facility] [address] [place], [address] Neutrophils/100 WBC (Bld) 73.7 % High 47-70 [facility] Comment on above: Performed By: #### L 500.4100, L500.4050, L100.0100, L509.6000, L501.9520, L3100.5310 #### [facility] [address] [place], [address] Nucleated RBC (Bld) [#/Vol] 0 10*3/uL Normal 0-5 [facility] Comment on above: Performed By: #### L 500.4100, L500.4050, L100.0100, L509.6000, L501.9520, L3100.5310 #### [facility] [address] [place], [address] Platelet mean volume (Bld) [Entitic vol] 9.4 fL Normal 6.2-12.0 [facility] Comment on above: Performed By: #### L 500.4100, L500.4050, L100.0100, L509.6000, L501.9520, L3100.5310 #### [facility] [address] [place], [address] Platelets (Bld) [#/Vol] 219 10*3/uL Normal 150-450 [facility] Comment on above: Performed By: #### L 500.4100, L500.4050, L100.0100, L509.6000, L501.9520, L3100.5310 #### [facility] [address] [place], [address] RBC (Bld) [#/Vol] 4.75 10*6/uL Normal 4.6-6.2 [facility] Comment on above: Performed By: #### L 500.4100, L500.4050, L100.0100, L509.6000, L501.9520, L3100.5310 #### [facility] [address] [place], [address] RDW SD 41.7 fl Normal 35.1-43.9 [facility] Comment on above: Performed By: #### L 500.4100, L500.4050, L100.0100, L509.6000, L501.9520, L3100.5310 #### [facility] [address] [place], [address] WBC (Bld) [#/Vol] 8.1 10*3/uL Normal 4.4-11.0 [facility] Comment on above: Performed By: #### L 500.4100, L500.4050, L100.0100, L509.6000, L501.9520, L3100.5310 #### [facility] [address] [place], [address] Comprehensive Metabolic Prof ilon 06-19-2024 Albumin [Mass/Vol] 4.0 g/dL Normal 3.2-5.0 [facility] Comment on above: Performed By: #### L 500.4100, L500.4050, L100.0100, L509.6000, L501.9520, L3100.5310 #### [facility] [address] [place], [address] Albumin/Globulin [Mass ratio] 1.1 {ratio} Normal 0.9-2.4 [facility] Comment on above: Performed By: #### L 500.4100, L500.4050, L100.0100, L509.6000, L501.9520, L3100.5310 #### [facility] [address] [place], [address] ALK P 92 U/L Normal 45-117 [facility] Comment on above: Performed By: #### L 500.4100, L500.4050, L100.0100, L509.6000, L501.9520, L3100.5310 #### [facility] [address] [place], [address] ALT [Catalytic activity/Vol] 136 U/L High 16-61 [facility] Comment on above: Performed By: #### L 500.4100, L500.4050, L100.0100, L509.6000, L501.9520, L3100.5310 #### [facility] [address] [place], [address] AST [Catalytic activity/Vol] 111 U/L High 15-37 [facility] Comment on above: Performed By: #### L 500.4100, L500.4050, L100.0100, L509.6000, L501.9520, L3100.5310 #### [facility] [address] [place], [address] Bilirubin [Mass/Vol] 1.60 mg/dL High 0.20-1.[address] [facility] Comment on above: Result Comment: For patients on eltrombopag therapy, use of Dimension Lena TBIL is not recommended. Performed By: #### L 500.4100, L500.4050, L100.0100, L509.6000, L501.9520, L3100.5310 #### [facility] [address] [place], [address] BUN/CRE 10.6 RATIO Normal 10-20 [facility] Comment on above: Performed By: #### L 500.4100, L500.4050, L100.0100, L509.6000, L501.9520, L3100.5310 #### [facility] [address] [place], [address] CA,Total 9.6 mg/dL Normal 8.5-10.1 [facility] Comment on above: Performed By: #### L 500.4100, L500.4050, L100.0100, L509.6000, L501.9520, L3100.5310 #### [facility] [address] [place], [address] Chloride [Moles/Vol] 100 mmol/L Normal 98-[address] [facility] Comment on above: Performed By: #### L 500.4100, L500.4050, L100.0100, L509.6000, L501.9520, L3100.5310 #### [facility] [address] [place], [address] CO2 [Moles/Vol] 23.0 mmol/L Normal 21.0-32.0 [facility] Comment on above: Performed By: #### L 500.4100, L500.4050, L100.0100, L509.6000, L501.9520, L3100.5310 #### [facility] [address] [place], [address] Creatinine [Mass/Vol] 1.04 mg/dL Normal 0.70-1.30 [facility] Comment on above: Result Comment: The validity of the calculated GFR GFRAA in patients over 70 years has not been determined. Clinical correlation is essential. Performed By: #### L 500.4100, L500.4050, L100.0100, L509.6000, L501.9520, L3100.5310 #### [facility] [address] [place], [address] EST GFR - AA 109 mL/min Normal >60 [facility] Comment on above: Result Comment: Afri can Fijian GFR Calc Performed By: #### L 500.4100, L500.4050, L100.0100, L509.6000, L501.9520, L3100.5310 #### [facility] [address] [place], [address] GAP 14 Normal 5-15 [facility] Comment on above: Performed By: #### L 500.4100, L500.4050, L100.0100, L509.6000, L501.9520, L3100.5310 #### [facility] [address] [place], [address] GFR/1.73 sq M.predicted among non-blacks MDRD (S/P/Bld) [Vol rate/Area] 90 mL/min/{1.73_m2} Normal >60 [facility] Comment on above: Result Comment: Non- GFR Calc Performed By: #### L 500.4100, L500.4050, L100.0100, L509.6000, L501.9520, L3100.5310 #### [facility] [address] [place], [address] Globulin (S) [Mass/Vol] 3.8 g/dL Normal 2.2-4.2 [facility] Comment on above: Performed By: #### L 500.4100, L500.4050, L100.0100, L509.6000, L501.9520, L3100.5310 #### [facility] [address] [place], [address] Glucose [Mass/Vol] 122 mg/dL High 74-106 [facility] Comment on above: Result Comment: Fast ing Glucose result from 100 to 125 mg/dL suggests IMPAIRED HOMEOSTASIS per A.D.A. criteria. Performed By: #### L 500.4100, L500.4050, L100.0100, L509.6000, L501.9520, L3100.5310 #### [facility] [address] [place], [address] Potassium [Moles/Vol] 3.7 mmol/L Normal 3.5-5.1 [facility] Comment on above: Performed By: #### L 500.4100, L500.4050, L100.0100, L509.6000, L501.9520, L3100.5310 #### [facility] [address] [place], [address] Sodium [Moles/Vol] 138 mmol/L Normal 136-145 [facility] Comment on above: Performed By: #### L 500.4100, L500.4050, L100.0100, L509.6000, L501.9520, L3100.5310 #### [facility] [address] [place], [address] T PROT 7.8 g/dL Normal 6.4-8.2 [facility] Comment on above: Performed By: #### L 500.4100, L500.4050, L100.0100, L509.6000, L501.9520, L3100.5310 #### [facility] [address] [place], [address] Urea nitrogen [Mass/Vol] 11 mg/dL Normal 7-18 [facility] Comment on above: Performed By: #### L 500.4100, L500.4050, L100.0100, L509.6000, L501.9520, L3100.5310 #### [facility] [address] [place], [address] Lipid Profileon 06-19-2024 Cholesterol [Mass/Vol] 198 mg/dL Normal 200 [facility] Comment on above: Result Comment: <200 mg/dL Desirable 200-240 mg/dL Borderline >240 mg/dL High Risk Performed By: #### L 500.4100, L500.4050, L100.0100, L509.6000, L501.9520, L3100.5310 #### [facility] [address] [place], [address] Cholesterol in HDL [Mass/Vol] 93 mg/dL Normal [facility] Comment on above: Result Comment: The drugs N-Acetylcysteine and Metamizole may falsely depress this assay. Reference Range HDL <40 mg/dL Low HDL Cholesterol HDL >or= 60 mg/dL High HDL Cholesterol Performed By: #### L 500.4100, L500.4050, L100.0100, L509.6000, L501.9520, L3100.5310 #### [facility] [address] [place], [address] Cholesterol in LDL [Mass/Vol] 78 mg/dL Normal 0-130 [facility] Comment on above: Performed By: #### L 500.4100, L500.4050, L100.0100, L509.6000, L501.9520, L3100.5310 #### [facility] [address] [place], [address] Cholesterol in VLDL [Mass/Vol] 27 mg/dL Normal 5-40 [facility] Comment on above: Performed By: #### L 500.4100, L500.4050, L100.0100, L509.6000, L501.9520, L3100.5310 #### [facility] [address] [place], [address] Triglyceride [Mass/Vol] 136 mg/dL Normal [facility] Comment on above: Result Comment: The drugs N-Acetylcysteine and Metamizole may falsely depress this assay. Serum Triglycerides Reference Interval Normal <150 mg/dL Borderline high 150 - 199 mg/dL High 200 - 499 mg/dL Very High > or = 500 mg/dL Performed By: #### L 500.4100, L500.4050, L100.0100, L509.6000, L501.9520, L3100.5310 #### [facility] [address] [place], [address] Thyroid Stim Hormone (TSH)on 06-19-2024 TSH 1.330 uIU/mL Normal 0.358-3.740 [facility] Comment on above: Performed By: #### L 500.4100, L500.4050, L100.0100, L509.6000, L501.9520, L3100.5310 #### [facility] [address] [place], [address] Endocrinology Visit Reporton 06-15-2024 Endocrinology Visit Report [facility] End[facility]. [address] [place], [place] [address] OFFICE VISIT Date of Service: 06/15/24 MR#: [id number] Acct: [id number] Name: JORGE HOLLIS Rep #: [id number] 1 : 1995 Provider: Jessica Chambers Age/Sex: 29/M Location[place] [facility] [place] [facility] [place] Status: Signed Intake Vital Signs 12/16/23 14:56 [...] Masoud Harris (more content not included)... Normal [facility] Basic metabolic 2000 panelon 03-02-2024 Anion gap [Moles/Vol] 17 mmol/L Normal - [facility] Comment on above: Performed By: #### 5 7021-8 #### LISSETTE NEAL (35207) [facility] ([facility]) [address] [place] [address] Performed By: #### 2 4339-4 #### LISSETTE NEAL (17124) [facility] ([facility]) [address] [place] [address] Calcium [Mass/Vol] 8.9 mg/dL Normal 8.6-10.3 [facility] Comment on above: Performed By: #### 5 7021-8 #### LISSETTE NEAL (18436) [facility] ([facility]) [address] [place] [address] Chloride [Moles/Vol] 104 mmol/L Normal 98-107 [facility] Comment on above: Performed By: #### 5 7021-8 #### LISSETTE NEAL (60016) [facility] ([facility]) [address] [place] [address] CO2 [Moles/Vol] 17 mmol/L Low 21-32 [facility] Comment on above: Performed By: #### 5 7021-8 #### LISSETTE NEAL (50451) [facility] ([facility]) [address] [place] [address] Performed By: #### 2 4339-4 #### LISSETTE NEAL (87026) [facility] ([facility]) [address] [place] [address] Creatinine [Mass/Vol] 0.94 mg/dL Normal 0.50-1.30 [facility] Comment on above: Performed By: #### 5 7021-8 #### LISSETTE NEAL (34073) [facility] ([facility]) [address] [place] [address] Glucose [Mass/Vol] 188 mg/dL High 74-99 [facility] Comment on above: Performed By: #### 5 7021-8 #### LISSETTE NEAL (69848) [facility] ([facility]) [address] [place] [address] Potassium [Moles/Vol] 4.1 mmol/L Normal 3.5-5.3 [facility] Comment on above: Performed By: #### 5 7021-8 #### LISSETTE NEAL (08789) [facility] ([facility]) [address] [place] [address] Sodium [Moles/Vol] 134 mmol/L Low 136-145 [facility] Comment on above: Performed By: #### 5 7021-8 #### LISSETTE NEAL (45372) [facility] ([facility]) [address] [place] [address] Urea nitrogen [Mass/Vol] 10 mg/dL Normal 6-23 [facility] Comment on above: Performed By: #### 5 7021-8 #### LISSETTE NEAL (90117) [facility] ([facility]) [address] [place] [address] eGFR - PINF [facility] Comment on above: Calculations of luis felipe mated GFR are performed using the 2020 CKD-EPI Study Refit equation without the race variable for the IDMS-Traceable creatinine methods. https://jasn.asnjournals.org/content//ASN.96412 82729 Interpretation and review of laboratory results Abnormal [facility] Calcium [Mass/Vol] 8.7 mg/dL 8.6 - 10. 3 mg/dL [facility] Chloride [Moles/Vol] 106 mmol/L 98 - 10 7 mmol/L [facility] Creatinine [Mass/Vol] 0.97 mg/dL 0.50 - 1.30 mg/dL [facility] eGFR - PINF [facility] Comment on above: Calculations of luis felipe mated GFR are performed using the 2020 CKD-EPI Study Refit equation without the race variable for the IDMS-Traceable creatinine methods. https://jasn.asnjournals.org/content//ASN.04196 82411 Glucose [Mass/Vol] 115 mg/dL High 74 - 99 mg/dL [facility] Interpretation and review of laboratory results Abnormal [facility] Potassium [Moles/Vol] 3.8 mmol/L 3.5 - 5.3 mmol/L [facility] Sodium [Moles/Vol] 136 mmol/L 136 - 145 mmol/L [facility] Urea nitrogen [Mass/Vol] 12 mg/dL 6 - 23 mg/dL [facility] Calcium [Mass/Vol] 8.7 mg/dL Normal 8.6-10.3 [facility] Comment on above: Performed By: #### 2 4339-4 #### LISSETTE NEAL (24144) [facility] ([facility]) [address] [place] [address] Chloride [Moles/Vol] 106 mmol/L Normal 98-107 [facility] Comment on above: Performed By: #### 2 4339-4 #### LISSETTE NEAL (61008) [facility] ([facility]) [facility] [place] [address] Creatinine [Mass/Vol] 0.97 mg/dL Normal 0.50-1.30 [facility] Comment on above: Performed By: #### 2 4339-4 #### LISSETTE NEAL (59442) [facility] ([facility]) [address] [place] [address] GFR/1.73 sq M.predicted MDRD (S/P/Bld) [Vol rate/Area] mL/min/{1.73_m2} Normal >60 [facility] Comment on above: Result Comment: Calc ulations of estimated GFR are performed using the 2020 CKD-EPI Study Refit equation without the race variable for the IDMS-Traceable creatinine methods. https://jasn.asnjournals.org/content//ASN.69661 18807 Performed By: #### 5 7021-8 #### LISSETTE NEAL (71740) [facility] ([facility]) [address] [place] [address] Performed By: #### 2 4339-4 #### LISSETTE NEAL (93485) [facility] ([facility]) [address] [place] [address] Glucose [Mass/Vol] 115 mg/dL High 74-99 [facility] Comment on above: Performed By: #### 2 4339-4 #### LISSETTE NEAL (44570) [facility] ([facility]) [address] [place] [address] Potassium [Moles/Vol] 3.8 mmol/L Normal 3.5-5.3 [facility] Comment on above: Performed By: #### 2 4339-4 #### LISSETTE NEAL (56992) [facility] ([facility]) [address] [place] [address] Sodium [Moles/Vol] 136 mmol/L Normal 136-145 [facility] Comment on above: Performed By: #### 2 4339-4 #### LISSETTE NEAL (98029) [facility] ([facility]) [address] [place] [address] Urea nitrogen [Mass/Vol] 12 mg/dL Normal 6-23 [facility] Comment on above: Performed By: #### 2 4339-4 #### LISSETTE NEAL (65180) [facility] ([facility]) [address] [place] [address] Beta hydroxybutyrate [Mass o r moles/Vol]on 03-02-2024 Beta hydroxybutyrate [Moles/Vol] 3.52 mmol/L High 0.02 - 0.27 mmol/L [facility] Interpretation and review of laboratory results Abnormal [facility] The beta-hydroxybutyrate test performance characteristics have been validated by [facility]. This test has not been approved by the FDA; however, such approval is not necessary. [facility] Beta hydroxybutyrate [Moles/Vol] 3.52 mmol/L High 0.02-0.27 [facility] Comment on above: Order Comment: The b eta-hydroxybutyrate test performance characteristics have been validated by [facility]. This test has not been approved by the FDA; however, such approval is not necessary. Performed By: #### 2 4339-4 #### MCLAUGHLIN VAL (60756) [facility] ([facility]) [address] [place] [address] ECG 12 LeadOrdered By: Kaylan Rubio on 03-02-2024 Atrial Rate 139 BPM [facility] Work Phone: [phone] P [place] 56 degrees [facility] Work Phone: [phone] P Offset 202 ms [facility] Work Phone: [phone] P Onset 153 ms [facility] Work Phone: [phone] DC Interval 130 ms [facility] Work Phone: [phone] Q Onset 218 ms [facility] Work Phone: [phone] QRS Count 23 beats [facility] Work Phone: [phone] QRS Duration 78 ms [facility] Work Phone: [phone] QT Interval 296 ms [facility] Work Phone: [phone] QTC Calculation(Bazett) 450 ms [facility] Work Phone: [phone] QTC Fredericia 391 ms [facility] Work Phone: [phone] R [place] 65 degrees [facility] Work Phone: [phone] T [place] 48 degrees [facility] Work Phone: [phone] T Offset 366 ms [facility] Work Phone: [phone] Ventricular Rate 139 BPM [facility] Work Phone: [facility] Work Phone: ECG 12 Leadon 03-02-2024 Sinus tachycardia Anterolateral infarct , age undetermined Abnormal ECG No previous ECGs available See ED provider note for full interpretation and clinical correlation Confirmed by Kaylan Rubio ([id number]) on 03/02/2024 11:21:20 AM Kaylan Rodriguez PA-C - 03/02/2024 Sinus tachycardia Anterolateral infarct , age undetermined Abnormal ECG No previous ECGs available See ED provider note for full interpretation and clinical correlation Confirmed by Kaylan Rubio ([id number]) on 03/02/2024 11:21:20 AM [facility] Work Phone: Glucose Test strip manual (B ld) [Mass/Vol]on 03-02-2024 Glucose [Mass/Vol] 191 mg/dL High 74 - 99 mg/dL [facility] Interpretation and review of laboratory results Abnormal [facility] Glucose [Mass/Vol] 191 mg/dL High 74-99 [facility] Comment on above: Performed By: #### 2 4339-4 #### LISSETTE NEAL ([id number]) [facility] ([facility]) [address] [place] [address] Glucose [Mass/Vol] 224 mg/dL High 74 - 99 mg/dL [facility] Interpretation and review of laboratory results Abnormal [facility] Glucose [Mass/Vol] 224 mg/dL High 74-99 [facility] Comment on above: Performed By: #### 2 4339-4 #### LISSETTE NEAL (18845) [facility] ([facility]) [address] [place] [address] Glucose [Mass/Vol] 238 mg/dL High 74 - 99 mg/dL [facility] Interpretation and review of laboratory results Abnormal [facility] Glucose [Mass/Vol] 238 mg/dL High 74-99 [facility] Comment on above: Performed By: #### 2 4339-4 #### LISSETTE NEAL (48255) [facility] ([facility]) [address] [place] [address] Glucose [Mass/Vol] 178 mg/dL High 74 - 99 mg/dL [facility] Interpretation and review of laboratory results Abnormal [facility] Glucose [Mass/Vol] 178 mg/dL High 74-99 [facility] Comment on above: Performed By: #### 2 4339-4 #### LISSETTE NEAL (49439) [facility] ([facility]) [address] [place] [address] Glucose [Mass/Vol] 129 mg/dL High 74 - 99 mg/dL [facility] Interpretation and review of laboratory results Abnormal [facility] Glucose [Mass/Vol] 129 mg/dL High 74-99 [facility] Comment on above: Performed By: #### 2 4339-4 #### LISSETTE NEAL (18370) [facility] ([facility]) [address] [place] [address] Glucose [Mass/Vol] 93 mg/dL 74 - 99 mg/dL [facility] Interpretation and review of laboratory results Normal [facility] Glucose [Mass/Vol] 93 mg/dL Normal 74-99 [facility] Comment on above: Performed By: #### 2 4339-4 #### LISSETTE NEAL (64527) [facility] ([facility]) [address] [place] [address] Glucose [Mass/Vol] 86 mg/dL 74 - 99 mg/dL [facility] Interpretation and review of laboratory results Normal [facility] Glucose [Mass/Vol] 86 mg/dL Normal 74-99 [facility] Comment on above: Performed By: #### 2 4339-4 #### LISSETTE NEAL (95235) [facility] ([facility]) [address] [place] [address] Glucose [Mass/Vol] 106 mg/dL High 74 - 99 mg/dL [facility] Interpretation and review of laboratory results Abnormal [facility] Glucose [Mass/Vol] 106 mg/dL High 74-99 [facility] Comment on above: Performed By: #### 2 341-6 ####MCLAUGHLIN VAL (79668)[facility] ([facility])[address] [place] [address] HbA1c (Bld) [Mass fraction]o n 03-02-2024 Average glucose Estimated from glycated hemoglobin (Bld) [Mass/Vol] 137 mg/dL Not Established [facility] Interpretation and review of laboratory results Abnormal [facility] Diagnosis of Diabetes-Adults Non-Diabetic: < or = 5.6% Increased risk for developing diabetes: 5.7-6.4% Diagnostic of diabetes: > or = 6.5% [facility] Hemoglobin A1con 03-02-2024 HbA1c (Bld) [Mass fraction] 6.4 % High See comment [facility] Lavender Topon 03-02-2024 Extra Tube Hold for add-ons. [facility] Comment on above: Auto resulted. [facility] SST TOPon 03-02-2024 Extra Tube Hold for add-ons. [facility] Comment on above: Auto resulted. [facility] Beta hydroxybutyrate [Mass o r moles/Vol]on 03-01-2024 Beta hydroxybutyrate [Moles/Vol] mmol/L High 0.02 - 0.27 mmol/L [facility] Interpretation and review of laboratory results Abnormal [facility] The beta-hydroxybutyrate test performance characteristics have been validated by [facility]. This test has not been approved by the FDA; however, such approval is not necessary. [facility] Beta hydroxybutyrate [Moles/Vol] >24.00 High 0.02-0.27 [facility] Comment on above: Order Comment: The b eta-hydroxybutyrate test performance characteristics have been validated by [facility]. This test has not been approved by the FDA; however, such approval is not necessary. Performed By: #### 3 5255-9 #### MCLAUGHLIN VAL ([id number]) [facility] ([facility]) [facility] [place] [address] CBC W Auto Differential pane l (Bld)on 03-01-2024 Basophils (Bld) [#/Vol] 0.02 10*3/uL [facility] Basophils/100 WBC (Bld) 0.2 % 0.0 - 2.0 % [facility] Eosinophils (Bld) [#/Vol] 0.00 10*3/uL [facility] Eosinophils/100 WBC (Bld) 0.0 % 0.0 - 6.0 % [facility] Erythrocyte distribution width (RBC) [Ratio] 12.5 % 11.5 - 14.5 % [facility] Hematocrit (Bld) [Volume fraction] 45.7 % 41.0 - 52.0 % [facility] Hemoglobin (Bld) [Mass/Vol] 15.6 g/dL 13.5 - 17.5 g/dL [facility] Immature granulocytes (Bld) [#/Vol] 0.06 10*3/uL [facility] Immature granulocytes/100 WBC (Bld) 0.6 % 0.0 - 0.9 % [facility] Comment on above: Immature Granulocyte Count (IG) includes promyelocytes, myelocytes and metamyelocytes but does not include bands. Percent differential counts (%) should be interpreted in the context of the absolute cell counts (cells/UL). Interpretation and review of laboratory results Abnormal [facility] Lymphocytes (Bld) [#/Vol] 0.91 10*3/uL Low [facility] Lymphocytes/100 WBC (Bld) 8.5 % 13.0 - 44.0 % [facility] MCH (RBC) [Entitic mass] 31.1 pg 26.0 - 34.0 pg [facility] MCHC (RBC) [Mass/Vol] 34.1 g/dL 32.0 - 36.0 g/dL [facility] MCV (RBC) [Entitic vol] 91 fL 80 - 100 fL [facility] Monocytes (Bld) [#/Vol] 1.00 10*3/uL [facility] Monocytes/100 WBC (Bld) 9.4 % 2.0 - 10.0 % [facility] Neutrophils (Bld) [#/Vol] 8.69 10*3/uL High [facility] Comment on above: Percent differential counts (%) should be interpreted in the context of the absolute cell counts (cells/uL). Neutrophils/100 WBC (Bld) 81.3 % 40.0 - 80.0 % [facility] Nucleated RBC/100 WBC (Bld) [Ratio] 0.0 % [facility] Platelets (Bld) [#/Vol] 186 10*3/uL [facility] RBC (Bld) [#/Vol] 5.01 10*6/uL [facility] WBC (Bld) [#/Vol] 10.7 10*3/uL [facility] Basophils (Bld) [#/Vol] 0.02 x10*3/uL Normal 0.00-0.10 [facility] Comment on above: Performed By: #### 5 7021-8 #### LISSETTE NEAL ([id number]) [facility] ([facility]) [address] [place] [address] Basophils/100 WBC (Bld) 0.2 % Normal 0.0-2.0 [facility] Comment on above: Performed By: #### 5 7021-8 #### LISSETTE NEAL (58794) [facility] ([facility]) [address] [place] [address]43 Eosinophils (Bld) [#/Vol] 0.00 x10*3/uL Normal 0.00-0.70 [facility] Comment on above: Performed By: #### 5 7021-8 #### LISSETTE NEAL (64061) [facility] ([facility]) [address] [place] [address]013 Eosinophils/100 WBC (Bld) 0.0 % Normal 0.0-6.0 [facility] Comment on above: Performed By: #### 5 7021-8 #### LISSETTE NEAL (83385) [facility] ([facility]) [address] [place] [address] Erythrocyte distribution width (RBC) [Ratio] 12.5 % Normal 11.5-14.5 [facility] Comment on above: Performed By: #### 5 7021-8 #### LISSETTE NEAL (40448) [facility] ([facility]) [address] [place] [address] Hematocrit (Bld) [Volume fraction] 45.7 % Normal 41.0-52.0 [facility] Comment on above: Performed By: #### 5 7021-8 #### LISSETTE NEAL (27815) [facility] ([facility]) [address] [place] [address] Hemoglobin (Bld) [Mass/Vol] 15.6 g/dL Normal 13.5-17.5 [facility] Comment on above: Performed By: #### 5 7021-8 #### LISSETTE NEAL ([id number]) [facility] ([facility]) [address] [place] [address] Immature granulocytes (Bld) [#/Vol] 0.06 x10*3/uL Normal 0.00-0.70 [facility] Comment on above: Performed By: #### 5 7021-8 #### LISSETTE NEAL (41016) [facility] ([facility]) [address] [place] [address] Immature granulocytes/100 WBC (Bld) 0.6 % Normal 0.0-0.9 [facility] Comment on above: Result Comment: Suzanne ture Granulocyte Count (IG) includes promyelocytes, myelocytes and metamyelocytes but does not include bands. Percent differential counts (%) should be interpreted in the context of the absolute cell counts (cells/UL). Performed By: #### 5 7021-8 #### LISSETTE NEAL (96643) [facility] ([facility]) [address] [place] [address] Lymphocytes (Bld) [#/Vol] 0.91 x10*3/uL Low 1.20-4.80 [facility] Comment on above: Performed By: #### 5 7021-8 #### LISSETTE NEAL ([id number]) [facility] ([facility]) [address] [place] [address]33 Lymphocytes/100 WBC (Bld) 8.5 % Normal 13.0-44.0 [facility] Comment on above: Performed By: #### 5 7021-8 #### LISSETTE NEAL (07917) [facility] ([facility]) [address] [place] [address] 30923 MCH (RBC) [Entitic mass] 31.1 pg Normal 26.0-34.0 [facility] Comment on above: Performed By: #### 5 7021-8 #### LISSETTE NEAL (44751) [facility] ([facility]) [address] [place] [address] 27523 MCHC (RBC) [Mass/Vol] 34.1 g/dL Normal 32.0-36.0 [facility] Comment on above: Performed By: #### 5 7021-8 #### LISSETTE NEAL (15631) [facility] ([facility]) [address] [place] [address] 38401 MCV (RBC) [Entitic vol] 91 fL Normal 80-100 [facility] Comment on above: Performed By: #### 5 7021-8 #### LISSETTE NEAL (15195) [facility] ([facility]) [address] [place] [address] 83782 Monocytes (Bld) [#/Vol] 1.00 x10*3/uL Normal 0.10-1.00 [facility] Comment on above: Performed By: #### 5 7021-8 #### LISSETTE NEAL (24168) [facility] ([facility]) [address] [place] [address] 21592 Monocytes/100 WBC (Bld) 9.4 % Normal 2.0-10.0 [facility] Comment on above: Performed By: #### 5 7021-8 #### LISSETTE NEAL (25896) [facility] ([facility]) [address] [place] [address] 21157 Neutrophils (Bld) [#/Vol] 8.69 x10*3/uL High 1.20-7.70 [facility] Comment on above: Result Comment: Perc ent differential counts (%) should be interpreted in the context of the absolute cell counts (cells/uL). Performed By: #### 5 7021-8 #### LISSETTE NEAL (31457) [facility] ([facility]) [address] [place] [address] 72962 Neutrophils/100 WBC (Bld) 81.3 % Normal 40.0-80.0 [facility] Comment on above: Performed By: #### 5 7021-8 #### LISSETTE NEAL (18990) [facility] ([facility]) [address] [place] [address] 13882 Nucleated RBC/100 WBC (Bld) [Ratio] 0.0 /100 WBCs Normal 0.0-0.0 [facility] Comment on above: Performed By: #### 5 7021-8 #### LISSETTE NEAL (80338) [facility] ([facility]) [address] [place] [address] 64418 Platelets (Bld) [#/Vol] 186 x10*3/uL Normal 150-450 [facility] Comment on above: Performed By: #### 5 7021-8 #### LISSETTE NEAL (36173) [facility] ([facility]) [address] [place] [address] 14533 RBC (Bld) [#/Vol] 5.01 x10*6/uL Normal 4.50-5.90 [facility] Comment on above: Performed By: #### 5 7021-8 #### LISSETTE NEAL (35043) [facility] ([facility]) [address] [place] [address] 96651 WBC (Bld) [#/Vol] 10.7 x10*3/uL Normal 4.4-11.3 [facility] Comment on above: Performed By: #### 5 7021-8 #### LISSETTE NEAL (73235) [facility] ([facility]) [address] [place] [address] CT ABDOMEN PELVIS W IV CONTR Andreea 03-01-2024 CT ABDOMEN PELVIS W IV CONTRAST Interpreted By: Pierce Boothe, STUDY: CT ABDOMEN PELVIS W IV CONTRAST; 03/01/2024 7:54 pm INDICATION: Signs/Symptoms:abdomina l pain. COMPARISON: None. ACCESSION NUMBER(S): [id number] ORDERING CLINICIAN: MONA RODRIGUEZ TECHNIQUE: CT of [...] Pierce Boothe 03/01/2024 8:29 PM Dictation workstation: [id number] [facility] CT Abdomen and Pelvis W cont rast Keisha 03-01-2024 1. 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 Hepatic steatosis. No gallstones. No biliary duct dilatation. Mild diverticulosis. 3. Mildly enlarged prostate gland. Distended urinary bladder. MACRO: None Signed by: Pierce Boothe 03/01/2024 8:29 PM Dictation workstation: [id number] Interpreted By: Pierce Boothe, STUDY: CT ABDOMEN PELVIS W IV CONTRAST; 03/01/2024 7:54 pm INDICATION: Signs/Symptoms:abdomina l pain. COMPARISON: None. ACCESSION NUMBER(S): [id number] ORDERING CLINICIAN: MONA RODRIGUEZ TECHNIQUE: CT of [...] Pierce Boothe MD - 03/01/2024 Interpreted By: Pierce Boothe, STUDY: CT ABDOMEN PELVIS W IV CONTRAST; 03/01/2024 7:54 pm INDICATION: Signs/Symptoms:abdomina l pain. COMPARISON: None. ACCESSION NUMBER(S): [id number] ORDERING CLINICIAN: MONA RODRIGUEZ TECHNIQUE: CT of [...] Pierce Boothe 03/01/2024 8:29 PM Dictation workstation: [id number] [facility] Work Phone: Radiology Study observation (narrative) [facility] Work Phone: CT Abdomen and Pelvis W cont rast IVOrdered By: Pierce Boothe on 03-01-2024 [facility] Work Phone: Comprehensive metabolic 2000 panelon 03-01-2024 Albumin BCP dye [Mass/Vol] 4.4 g/dL 3.4 - 5.0 g/dL [facility] ALP [Catalytic activity/Vol] 74 U/L 33 - 120 U/L [facility] ALT With P-5'-P [Catalytic activity/Vol] 27 U/L 10 - 52 U/L [facility] Comment on above: Patients treated wit h Sulfasalazine may generate falsely decreased results for ALT. Anion gap [Moles/Vol] 23 mmol/L High 10 - 2 0 mmol/L [facility] AST With P-5'-P [Catalytic activity/Vol] 23 U/L 9 - 39 U/L [facility] Bilirubin [Mass/Vol] 1.0 mg/dL 0.0 - 1 .2 mg/dL [facility] Calcium [Mass/Vol] 8.6 mg/dL 8.6 - 10. 3 mg/dL [facility] Chloride [Moles/Vol] 106 mmol/L 98 - 10 7 mmol/L [facility] CO2 [Moles/Vol] 12 mmol/L Low 21 - 32 mmol/L [facility] Creatinine [Mass/Vol] 1.11 mg/dL 0.50 - 1.30 mg/dL [facility] eGFR - PINF [facility] Comment on above: Calculations of luis felipe mated GFR are performed using the 2020 CKD-EPI Study Refit equation without the race variable for the IDMS-Traceable creatinine methods. https://jasn.asnjournals.org/content//ASN.95459 06624 Glucose [Mass/Vol] 185 mg/dL High 74 - 99 mg/dL [facility] Interpretation and review of laboratory results Abnormal [facility] Potassium [Moles/Vol] 4.7 mmol/L 3.5 - 5.3 mmol/L [facility] Protein [Mass/Vol] 6.9 g/dL 6.4 - 8.2 g/dL [facility] Sodium [Moles/Vol] 136 mmol/L 136 - 145 mmol/L [facility] Urea nitrogen [Mass/Vol] 15 mg/dL 6 - 23 mg/dL [facility] Albumin BCP dye [Mass/Vol] 4.4 g/dL Normal 3.4-5.0 [facility] Comment on above: Performed By: #### 2 4323-8 ####LISSETTE NEAL ([id number])[facility] ([facility])[address] [place] [address] 07620 ALP [Catalytic activity/Vol] 74 U/L Normal 33-120 [facility] Comment on above: Performed By: #### 2 4323-8 ####LISSETTE NEAL ([id number])[facility] ([facility])[address] [place] [address] 35804 ALT With P-5'-P [Catalytic activity/Vol] 27 U/L Normal 10-52 [facility] Comment on above: Result Comment: Marilu ents treated with Sulfasalazine may generate falsely decreased results for ALT. Performed By: #### 2 4323-8 ####LISSETTE NEAL ([id number])[facility] ([facility])[address] [place] [address] 72984 Anion gap [Moles/Vol] 23 mmol/L High 10-20 [facility] Comment on above: Performed By: #### 2 4323-8 ####LISSETTE NEAL ([id number])[facility] ([facility])[address] [place] [address] 54174 AST With P-5'-P [Catalytic activity/Vol] 23 U/L Normal 9-39 [facility] Comment on above: Performed By: #### 2 4323-8 ####LISSETTE NEAL (48729)[facility] ([facility])[address] [place] [address] 29808 Bilirubin [Mass/Vol] 1.0 mg/dL Normal 0.0-1.2 [facility] Comment on above: Performed By: #### 2 4323-8 ####LISSETTE NEAL (33698)[facility] ([facility] [place] [address] Calcium [Mass/Vol] 8.6 mg/dL Normal 8.6-10.3 [facility] Comment on above: Performed By: #### 2 4323-8 ####LISSETTE NEAL (54985)[facility] ([facility])[address] [place] [address] 10890 Chloride [Moles/Vol] 106 mmol/L Normal 98-107 [facility] Comment on above: Performed By: #### 2 4323-8 ####LISSETTE NEAL ([id number])[facility] ([facility])[address] [place] [address] 60409 CO2 [Moles/Vol] 12 mmol/L Low 21-32 [facility] Comment on above: Performed By: #### 2 4323-8 ####LISSETTE NEAL ([id number])[facility] ([facility])[address] [place] [address] 10128 Creatinine [Mass/Vol] 1.11 mg/dL Normal 0.50-1.30 [facility] Comment on above: Performed By: #### 2 4323-8 ####LISSETTE NEAL (24707)[facility] ([facility])[address] [place] [address] 48940 GFR/1.73 sq M.predicted MDRD (S/P/Bld) [Vol rate/Area] mL/min/{1.73_m2} Normal >60 [facility] Comment on above: Result Comment: Calc ulations of estimated GFR are performed using the 2020 CKD-EPI Study Refit equation without the race variable for the IDMS-Traceable creatinine methods. https://jasn.asnjournals.org/content//ASN.46631 41929 Performed By: #### 2 4323-8 ####LISSETTE NEAL ([id number])[facility] ([facility])[address] [place] [address] 71007 Glucose [Mass/Vol] 185 mg/dL High 74-99 [facility] Comment on above: Performed By: #### 2 4323-8 ####LISSETTE NEAL (16731)[facility] ([facility])[address] [place] [address] 16756 Potassium [Moles/Vol] 4.7 mmol/L Normal 3.5-5.3 [facility] Comment on above: Performed By: #### 2 4323-8 ####LISESTTE NEAL ([id number])[facility] ([facility])[address] [place] [address] 74748 Protein [Mass/Vol] 6.9 g/dL Normal 6.4-8.2 [facility] Comment on above: Performed By: #### 2 4323-8 ####LISSETTE NEAL (76984)[facility] ([facility])[address] [place] [address] 80283 Sodium [Moles/Vol] 136 mmol/L Normal 136-145 [facility] Comment on above: Performed By: #### 2 4323-8 ####LISSETTE NEAL ([id number])[facility] ([facility])[address] [place] [address] 63743 Urea nitrogen [Mass/Vol] 15 mg/dL Normal 6-23 [facility] Comment on above: Performed By: #### 2 4323-8 ####LISSETTE NEAL ([id number])[facility] ([facility])[address] [place] [address] 03296 Albumin BCP dye [Mass/Vol] 5.0 g/dL 3.4 - 5.0 g/dL [facility] ALP [Catalytic activity/Vol] 89 U/L 33 - 120 U/L [facility] ALT With P-5'-P [Catalytic activity/Vol] 34 U/L 10 - 52 U/L [facility] Comment on above: Patients treated wit h Sulfasalazine may generate falsely decreased results for ALT. Anion gap [Moles/Vol] 33 mmol/L High 10 - 2 0 mmol/L [facility] AST With P-5'-P [Catalytic activity/Vol] 26 U/L 9 - 39 U/L [facility] Bilirubin [Mass/Vol] 1.3 mg/dL High 0.0 - 1 .2 mg/dL [facility] Calcium [Mass/Vol] 9.9 mg/dL 8.6 - 10. 3 mg/dL [facility] Chloride [Moles/Vol] 99 mmol/L 98 - 10 7 mmol/L [facility] CO2 [Moles/Vol] 10 mmol/L Critically low 21 - 32 mmol/L [facility] Creatinine [Mass/Vol] 1.42 mg/dL High 0.50 - 1.30 mg/dL [facility] GFR/1.73 sq M.predicted among non-blacks MDRD (S/P/Bld) [Vol rate/Area] 69 mL/min/{1.73_m2} - PINF [facility] Comment on above: Calculations of luis felipe mated GFR are performed using the 2020 CKD-EPI Study Refit equation without the race variable for the IDMS-Traceable creatinine methods. https://jasn.asnjournals.org/content/early/ASN.47828 66557 Glucose [Mass/Vol] 178 mg/dL High 74 - 99 mg/dL [facility] Potassium [Moles/Vol] 4.5 mmol/L 3.5 - 5.3 mmol/L [facility] Protein [Mass/Vol] 8.1 g/dL 6.4 - 8.2 g/dL [facility] Sodium [Moles/Vol] 137 mmol/L 136 - 145 mmol/L [facility] Urea nitrogen [Mass/Vol] 19 mg/dL 6 - 23 mg/dL [facility] Albumin BCP dye [Mass/Vol] 5.0 g/dL Normal 3.4-5.0 [facility] Comment on above: Performed By: #### 2 4323-8 #### LISSETTE NEAL ([id number]) [facility] ([facility]) [address] [place] [address] ALP [Catalytic activity/Vol] 89 U/L Normal 33-120 [facility] Comment on above: Performed By: #### 2 4323-8 #### LISSETTE NEAL (71685) [facility] ([facility]) [address] [place] [address] ALT With P-5'-P [Catalytic activity/Vol] 34 U/L Normal 10-52 [facility] Comment on above: Result Comment: Marilu ents treated with Sulfasalazine may generate falsely decreased results for ALT. Performed By: #### 2 4323-8 #### LISSETTE NEAL (27726) [facility] ([facility]) [address] [place] [address] Anion gap [Moles/Vol] 33 mmol/L High 10-20 [facility] Comment on above: Performed By: #### 2 4323-8 #### LISSETTE NEAL (69216) [facility] ([facility]) [address] [place] [address] AST With P-5'-P [Catalytic activity/Vol] 26 U/L Normal 9-39 [facility] Comment on above: Performed By: #### 2 4323-8 #### LISSETTE NEAL (12886) [facility] ([facility]) [address] [place] [address] Bilirubin [Mass/Vol] 1.3 mg/dL High 0.0-1.2 [facility] Comment on above: Performed By: #### 2 4323-8 #### LISSETTE NEAL (43149) [facility] ([facility]) [address] [place] [address] Calcium [Mass/Vol] 9.9 mg/dL Normal 8.6-10.3 [facility] Comment on above: Performed By: #### 2 4323-8 #### LISSETTE NEAL (54929) [facility] ([facility]) [address] [place] [address] Chloride [Moles/Vol] 99 mmol/L Normal 98-107 [facility] Comment on above: Performed By: #### 2 4323-8 #### LISSETTE NEAL (44396) [facility] ([facility]) [address] [place] [address] CO2 [Moles/Vol] 10 mmol/L Critically low 21-32 [facility] Comment on above: Performed By: #### 2 4323-8 #### LISSETTE NEAL (02694) [facility] ([facility]) [address] [place] [address] 40043 Creatinine [Mass/Vol] 1.42 mg/dL High 0.50-1.30 [facility] Comment on above: Performed By: #### 2 432-8 #### LISSETTE NEAL (18608) [facility] ([facility]) [address] [place] [address] 19780 Glomerular filtration rate/1.73 sq M.predicted 69 mL/min/1.73m*2 Normal >60 [facility] Comment on above: Result Comment: Calc ulations of estimated GFR are performed using the 2020 CKD-EPI Study Refit equation without the race variable for the IDMS-Traceable creatinine methods. https://jasn.asnjournals.org/content/early//ASN.96532 44998 Performed By: #### 2 432-8 #### LISSETTE NEAL (41955) [facility] ([facility]) [address] [place] [address] 06215 Glucose [Mass/Vol] 178 mg/dL High 74-99 [facility] Comment on above: Performed By: #### 2 4323-8 #### LISSETTE NEAL (03219) [facility] ([facility]) [address] [place] [address] 35435 Potassium [Moles/Vol] 4.5 mmol/L Normal 3.5-5.3 [facility] Comment on above: Performed By: #### 2 4323-8 #### LISSETTE NEAL (26794) [facility] ([facility]) [address] [place] [address] 23393 Protein [Mass/Vol] 8.1 g/dL Normal 6.4-8.2 [facility] Comment on above: Performed By: #### 2 432-8 #### LISSETTE NEAL (30138) [facility] ([facility]) [address] [place] [address] Sodium [Moles/Vol] 137 mmol/L Normal 136-145 [facility] Comment on above: Performed By: #### 2 4323-8 #### LISSETTE NEAL (57280) [facility] ([facility]) [address] [place] [address] Urea nitrogen [Mass/Vol] 19 mg/dL Normal 6-23 [facility] Comment on above: Performed By: #### 2 4323-8 #### MCLAUGHLIN VAL (41229) [facility] ([facility]) [facility] [place] [address] ECG 12-LEADon 03-01-2024 ECG 12-LEAD Ventricular Rate 139 Atrial Rate 139 P-R Interval 130 QRS Duration 78 Q-T Interval 296 QTC Calculation(Bazett) 450 P Madison 56 R Madison 65 T Madison 48 QRS Count 23 Q Onset 218 P Onset 153 P Offset 202 T Offset 366 QTC Fredericia 391 Diagnosis Sinus tachycardia Anterolateral infarct , age undetermined Abnormal ECG No previous ECGs available See ED provider note for full interpretation and clinical correlation Confirmed by Kaylan Rubio ([id number]) on 03/02/2024 11:21:20 AM Normal [facility] FLUAV and FLUBV RNA JUAN J+prob e Nom (Unsp spec)on 03-01-2024 FLUAV RNA JUAN J+probe Ql (Resp) Not detected Not Detected [facility] FLUBV RNA JUAN J+probe Ql (Resp) Not detected Not Detected [facility] This assay is an in vitro diagnostic multiplex nucleic acid amplification test for the detection and discrimination of Influenza A & B from nasopharyngeal specimens, and has been validated for use at [facility]. Negative results do not preclude Influenza A/B infections, and should not be used as the sole basis for diagnosis, treatment, or other management decisions. If Influenza A/B and RSV PCR results are negative, testing for Parainfluenza virus, Adenovirus and Metapneumovirus is routinely performed for [facility] pediatric oncology and intensive care inpatients, and is available on other patients by placing an add-on request. [facility] FLUAV RNA JUAN J+probe Ql (Resp) Not detected Normal Not Detected [facility] Comment on above: Order Comment: This assay is an in vitro diagnostic multiplex nucleic acid amplification test for the detection and discrimination of Influenza A & B from nasopharyngeal specimens, and has been validated for use at [facility]. Negative results do not preclude Influenza A/B infections, and should not be used as the sole basis for diagnosis, treatment, or other management decisions. If Influenza A/B and RSV PCR results are negative, testing for Parainfluenza virus, Adenovirus and Metapneumovirus is routinely performed for [facility] pediatric oncology and intensive care inpatients, and is available on other patients by placing an add-on request. Performed By: #### 4 8509-4 #### LISSETTE NEAL ([id number]) [facility] ([facility]) [address] [place], [place] [id number] FLUBV RNA JUAN J+probe Ql (Resp) Not detected Normal Not Detected [facility] Comment on above: Order Comment: This assay is an in vitro diagnostic multiplex nucleic acid amplification test for the detection and discrimination of Influenza A & B from nasopharyngeal specimens, and has been validated for use at [facility]. Negative results do not preclude Influenza A/B infections, and should not be used as the sole basis for diagnosis, treatment, or other management decisions. If Influenza A/B and RSV PCR results are negative, testing for Parainfluenza virus, Adenovirus and Metapneumovirus is routinely performed for [facility] pediatric oncology and intensive care inpatients, and is available on other patients by placing an add-on request. Performed By: #### 4 8509-4 #### LISSETTE NEAL ([id number]) [facility] ([facility]) [address] [place] [address] Gas panel (BldV)on 4 Base excess Calc (BldV) [Moles/Vol] -11.61479 mmol/L Low -2.0 - 3.0 mmol/L [facility] CO2 (BldV) [Partial pressure] 22 mm[Hg] Low [facility] HCO3 (Bld) [Moles/Vol] 11.9 mmol/L Low 22.0 - 26.0 mmol/L [facility] Inhaled oxygen concentration 21 % [facility] Interpretation and review of laboratory results Abnormal [facility] Oxygen (BldV) [Partial pressure] 49 mm[Hg] High [facility] Oxygen saturation in Venous blood 76 % High 45 - 75 % [facility] Oxyhemoglobin (BldV) [Mass fraction] 74.2 % 45.0 - 75.0 % [facility] pH (BldV) 7.34 [pH] 7.33 - 7.43 pH [facility] Base excess Calc (BldV) [Moles/Vol] -11.94322 mmol/L Low -2.0-3.0 [facility] Comment on above: Performed By: #### 2 4339-4 #### LISSETTE NEAL ([id number]) [facility] ([facility]) [address] [place] [address] CO2 (BldV) [Partial pressure] 22 mm Hg Low 41-51 [facility] Comment on above: Performed By: #### 2 4339-4 #### LISSETTE NEAL ([id number]) [facility] ([facility]) [address] [place] [address]61 HCO3 (Bld) [Moles/Vol] 11.9 mmol/L Low 22.0-26.0 [facility] Comment on above: Performed By: #### 2 4339-4 #### LISSETTE NELA ([id number]) [facility] ([facility]) [address] [place] [address] Inhaled oxygen concentration 21 % Normal [facility] Comment on above: Performed By: #### 2 4339-4 #### LISSETTE NEAL ([id number]) [facility] ([facility]) [address] [place] [address] Oxygen (BldV) [Partial pressure] 49 mm Hg High 35-45 [facility] Comment on above: Performed By: #### 2 4339-4 #### LISSETTE NEAL ([id number]) [facility] ([facility]) [address] [place] [address]2965 Oxygen saturation in Venous blood 76 % High 45-75 [facility] Comment on above: Performed By: #### 2 4339-4 #### LISSETTE NEAL ([id number]) [facility] ([facility]) [address] [place] [address] 14096 Oxyhemoglobin (BldV) [Mass fraction] 74.2 % Normal 45.0-75.0 [facility] Comment on above: Performed By: #### 2 4339-4 #### LISSETTE NEAL ([id number]) [facility] ([facility]) [address] [place] [address] pH (BldV) 7.34 [pH] Normal 7.33-7.43 [facility] Comment on above: Performed By: #### 2 4339-4 #### LISSETTE NEAL ([id number]) [facility] ([facility]) [address] [place], [place] [phone] Glucose Test strip manual (B ld) [Mass/Vol]on 03-01-2024 Glucose [Mass/Vol] 151 mg/dL High 74 - 99 mg/dL [facility] Interpretation and review of laboratory results Abnormal [facility] Glucose [Mass/Vol] 151 mg/dL High 74-99 [facility] Comment on above: Performed By: #### 2 341-6 ####LISSETTE NEAL ([id number])[facility] ([facility])[address] [place], [place] [address] HbA1c (Bld) [Mass fraction]o n 03-01-2024 Average glucose Estimated from glycated hemoglobin (Bld) [Mass/Vol] 137 mg/dL Normal Not Established [facility] Comment on above: Order Comment: Diagn osis of Hathbzpy-JtgyhaJtz-Fnlbqoaz: < or = 5.6%Increased risk for developing diabetes: 5.7-6.4%Diagnostic of diabetes: > or = 6.5% Performed By: #### 2 4339-4 #### LISSETTE NEAL ([id number]) [facility] ([facility]) [address] [place], [place] [phone] Hemoglobin A1c/Hemoglobin.to adarsh 03-01-2024 HbA1c (Bld) [Mass fraction] 6.4 % High See comment [facility] Comment on above: Order Comment: Diagn osis of Bebwklwj-IxewdfUlh-Yharazcx: < or = 5.6%Increased risk for developing diabetes: 5.7-6.4%Diagnostic of diabetes: > or = 6.5% Performed By: #### 2 4339-4 #### LISSETTE NEAL ([id number]) [facility] ([facility]) [facility] [place] [address] Lactateon 03-01-2024 Lactate [Moles/Vol] 1.1 mmol/L 0.4 - 2. 0 mmol/L [facility] Lactate [Moles/Vol] 1.1 mmol/L Normal 0.4-2.0 [facility] Comment on above: Order Comment: Venip uncture immediately after or during the administration of Metamizole may lead to falsely low results. Testing should be performed immediately prior to Metamizole dosing. Performed By: #### 2 524-7 #### LISSETTE NEAL ([id number]) [facility] ([facility]) [facility] [place] [address] Lactate [Moles/Vol]on 2023 Interpretation and review of laboratory results Normal [facility] Venipuncture immediately after or during the administration of Metamizole may lead to falsely low results. Testing should be performed immediately prior to Metamizole dosing. [facility] Lipaseon 03-01-2024 Lipase [Catalytic activity/Vol] 267 U/L High 9 - 82 U/L [facility] Lipase [Catalytic activity/V ol]on 03-01-2024 Venipuncture immediately after or during the administration of Metamizole may lead to falsely low results. Testing should be performed immediately prior to Metamizole dosing. [facility] Lipid 1996 panelon Cholesterol [Mass/Vol] 204 mg/dL High 0 - 199 mg/dL [facility] Comment on above: Age Desirable [...] dosing. Cholesterol in HDL [Mass/Vol] 74.0 mg/dL [facility] Comment on above: Age Very Low Low Normal High 0-19 Y < 35 < 40 40-45 ---- 20-24 Y ---- < 40 >45 ---- >24 Y ---- < 40 40-60 >60 Cholesterol in LDL [Mass/Vol] 87 mg/dL NINF - 99 mg/dL [facility] Comment on above: Near Borderline AGE Desirable Optimal High High Very High 0-19 Y 0 - 109 --- 110-129 >/= 130 ---- 20-24 Y 0 - 119 --- 120-159 >/= 160 ---- >24 Y 0 - 99 100-129 130-159 160-189 >/=190 Cholesterol in VLDL [Mass/Vol] 43 mg/dL High 0 - 40 mg/dL [facility] Cholesterol.total/Chol esterol in HDL [Mass ratio] 2.8 {ratio} [facility] Comment on above: Ref Values Desirable < 3.4 High Risk > 5.0 Interpretation and review of laboratory results Abnormal [facility] Non HDL Cholesterol 130 mg/dL 0 - 149 mg/dL [facility] Comment on above: Age Desirable Borderline High High Very High 0-19 Y 0 - 119 120 - 144 >/= 145 >/= 160 20-24 Y 0 - 149 150 - 189 >/= 190 ---- >24 Y 30 mg/dL above LDL Cholesterol goal Triglyceride [Mass/Vol] 214 mg/dL High 0 - 149 mg/dL [facility] Comment on above: Age Desirable [...] be performed immediately prior to Metamizole dosing. [facility] Cholesterol [Mass/Vol] 204 mg/dL High 0-199 Un [facility] Comment on above: Result Comment: [...] Performed By: #### 2 4331-1 ####LISSETTE NEAL ([id number])[facility] ([facility])[address] [place] [address] Cholesterol in HDL [Mass/Vol] 74.0 mg/dL Normal [facility] Comment on above: Result Comment: Age Very Low Low Normal High 0-19 Y < 35 < 40 40-45 ---- 20-24 Y ---- < 40 >45 ---- >24 Y ---- < 40 40-60 >60 Performed By: #### 2 4331-1 ####LISSETTE NEAL ([id number])[facility] ([facility] [place] [address] Cholesterol in LDL [Mass/Vol] 87 mg/dL Normal <=99 [facility] Comment on above: Result Comment: Near Borderline AGE Desirable Optimal High High Very High 0-19 Y 0 - 109 --- 110-129 >/= 130 ---- 20-24 Y 0 - 119 --- 120-159 >/= 160 ---- >24 Y 0 - 99 100-129 130-159 160-189 >/=190 Performed By: #### 2 4331-1 ####LISSETTE NEAL ([id number])[facility] ([facility])[address] [place] [address] Cholesterol in VLDL [Mass/Vol] 43 mg/dL High 0-40 [facility] Comment on above: Performed By: #### 2 4331-1 ####LISSETTE NEAL ([id number])[facility] ([facility])[address] [place] [address] 11479 CHOLESTEROL/HDL RATIO 2.8 Normal [facility] Comment on above: Result Comment: Ref Values Desirable < 3.4 High Risk > 5.0 Performed By: #### 2 4331-1 ####LISSETTE NEAL ([id number])[facility] ([facility])[address] [place] [address] 61084 NON HDL CHOLESTEROL 130 mg/dL Normal 0-149 [facility] Comment on above: Result Comment: Age Desirable Borderline High High Very High 0-19 Y 0 - 119 120 - 144 >/= 145 >/= 160 20-24 Y 0 - 149 150 - 189 >/= 190 ---- >24 Y 30 mg/dL above LDL Cholesterol goal Performed By: #### 2 4331-1 ####LISSETTE NEAL ([id number])[facility] ([facility])[address] [place] [address] Triglyceride [Mass/Vol] 214 mg/dL High 0-149 [facility] Comment on above: Result Comment: Age [...] Performed By: #### 2 4331-1 ####LISSETTE NEAL ([id number])[facility] ([facility])[address] [place] [address], [place] [address] No Panel Informationon 03-01 Interpretation and review of laboratory results Normal [facility] Interpretation and review of laboratory results Abnormal [facility] Potassiumon 03-01-2024 Potassium [Moles/Vol] 4.9 mmol/L Normal 3.5-5.3 [facility] Comment on above: Order Comment: [facility] [phone] to schedule Performed By: #### 2 823-3 ####MCLAUGHLIN VAL ([id number])[facility] ([facility] [place] [address] Potassium - 2 hours after IV infusion completeon 03-01-2024 Potassium [Moles/Vol] 4.9 mmol/L 3.5 - 5.3 mmol/L [facility] Potassium [Moles/Vol]on Interpretation and review of laboratory results Normal [facility] RSV PCRon 03-01-2024 RSV RNA JUAN J+probe Ql (Resp) Not detected Not Detected [facility] RSV RNA JUAN J+probe Ql (Resp)o n 03-01-2024 This assay is an FDA-cleared, in vitro diagnostic nucleic acid amplification test for the detection of RSV from nasopharyngeal specimens, and has been validated for use at [facility]. Negative results do not preclude RSV infections, and should not be used as the sole basis for diagnosis, treatment, or other management decisions. If Influenza A/B and RSV PCR results are negative, testing for Parainfluenza virus, Adenovirus and Metapneumovirus is routinely performed for pediatric oncology and intensive care inpatients at [facility], and is available on other patients by placing an add-on request. [facility] Respiratory syncytial virus RNAon 03-01-2024 RSV RNA JUAN J+probe Ql (Resp) Not detected Normal Not Detected [facility] Comment on above: Order Comment: This assay is an FDA-cleared, in vitro diagnostic nucleic acid amplification test for the detection of RSV from nasopharyngeal specimens, and has been validated for use at [facility]. Negative results do not preclude RSV infections, and should not be used as the sole basis for diagnosis, treatment, or other management decisions. If Influenza A/B and RSV PCR results are negative, testing for Parainfluenza virus, Adenovirus and Metapneumovirus is routinely performed for pediatric oncology and intensive care inpatients at [facility], and is available on other patients by placing an add-on request. Performed By: #### 9 2131-2 #### LISSETTE NEAL ([id number]) [facility] ([facility]) [address] [place] [address] SARS coronavirus 2 RNAon SARS-CoV-2 (COVID-19) RNA JUAN J+probe Ql (Resp) Not detected Normal Not Detected [facility] Comment on above: Order Comment: [facility] to schedule Performed By: #### 9 4500-6 ####LISSETTE NEAL ([id number])[facility] ([facility])[address] [place] [address] SARS-CoV-2 (COVID-19) RNA NA A+probe Ql (Resp)on [...] and has been validated for use at [facility]. Negative results do not preclude COVID-19 infections and should not be used as the sole basis for diagnosis, treatment, or other management decisions. [facility] Sars-CoV-2 PCRon 03-01-2024 SARS-CoV-2 (COVID-19) RNA JUAN J+probe Ql (Resp) Not detected Not Detected [facility] TSHon 03-01-2024 TSH Qn 2.87 m[IU]/L [facility] TSH Qnon 03-01-2024 Interpretation and review of laboratory results Normal [facility] TSH testing is performed using different testing methodology at [facility] than at other [facility]. Direct result comparisons should only be made within the same method. [facility] Thyrotropinon 03-01-2024 TSH Qn 2.87 m[IU]/L Normal 0.44-3.98 [facility] Comment on above: Order Comment: [facility] to schedule Performed By: #### 3 016-3 ####LISSETTE NEAL ([id number])[facility] ([facility])[address] [place] [address] Triacylglycerol lipaseon Lipase [Catalytic activity/Vol] 267 U/L High 9-82 [facility] Comment on above: Order Comment: Venip uncture immediately after or during the administration of Metamizole may lead to falsely low results. Testing should be performed immediately prior to Metamizole dosing. Performed By: #### 3 040-3 #### LISSETTE NEAL ([id number]) [facility] ([facility]) [address] [place] [address] Urinalysis complete W Reflex Culture panel (U)on 03-01-2024 Appearance (U) Clear Clear [facility] Bilirubin (U) [Mass/Vol] Negative NEGATIVE [facility] Color (U) Light-Yellow Light-Yellow, Yellow, Dark-Yellow [facility] Glucose Auto test strip (U) [Mass/Vol] 300 (3+) Abnormal Normal mg/dL [facility] Hyaline casts Auto (Urine sed) [#/Area] 2+ Abnormal NONE /LPF [facility] Interpretation and review of laboratory results Abnormal [facility] Ketones (U) [Mass/Vol] OVER (4+) Abnormal NEGAT PATRICK mg/dL [facility] Leukocyte esterase Auto test strip Ql (U) Negative NEGATIVE [facility] Mucus Auto (Urine sed) [#/Area] FEW Reference range not established. /LPF [facility] Nitrite Auto test strip Ql (U) Negative NEGATIVE [facility] pH (U) 6.0 [pH] 5.0, 5.5, 6.0, 6.5, 7.0, 7.5, 8.0 [facility] Protein (U) [Mass/Vol] 300 (3+) Abnormal NEGAT PATRICK, 10 (TRACE), 20 (TRACE) mg/dL [facility] RBC (U) [#/Vol] 0.03 (TRACE) Abnormal NEGATIVE [facility] RBC Auto (Urine sed) [#/Area] 1-2 NONE, 1-2, 3-5 /HPF [facility] Specific gravity (U) [Rel density] 1.041 Abnormal 1.005 - 1.035 [facility] Urobilinogen (U) [Mass/Vol] 2 (1+) Abnormal Normal mg/dL [facility] Comment on above: Due to [...] (Urine sed) [#/Area] 1-5 1-5, NONE /HPF [facility] OVER is reported whe n the result is greater than the clinically reportable range. [facility] Appearance (U) Clear Normal Clear [facility] Comment on above: Order Comment: [facility] to schedule Performed By: #### 5 8077-9 ####LISSETTE NEAL ([id number])[facility] ([facility])[address] [place] [address] Bilirubin (U) [Mass/Vol] Negative Normal NEGATIVE [facility] Comment on above: Order Comment: [facility] to schedule Performed By: #### 5 8077-9 ####LISSETTE NEAL ([id number])[facility] ([facility])[address] [place] [address] Color (U) Light-Yellow Normal Light-Yellow, Yellow, Dark-Yellow [facility] Comment on above: Order Comment: [facility] to schedule Performed By: #### 5 8077-9 ####LISSETTE NEAL ([id number])[facility] ([facility])[address] [place] [address] Glucose Auto test strip (U) [Mass/Vol] 300 (3+) Abnormal Normal [facility] Comment on above: Order Comment: [facility] to schedule Performed By: #### 5 8077-9 ####LISSETTE NEAL ([id number])[facility] ([facility])[address] [place] [address] Hyaline casts Auto (Urine sed) [#/Area] 2+ /LPF Abnormal NONE [facility] Comment on above: Performed By: #### 5 8077-9 ####LISSETTE NEAL ([id number])[facility] ([facility])[address] [place] [address] Ketones (U) [Mass/Vol] OVER (4+) Abnormal NEGATIVE [facility] Comment on above: Order Comment: [facility] to schedule Performed By: #### 5 8077-9 ####LISSETTE NEAL ([id number])[facility] ([facility])[address] [place] [address] Leukocyte esterase Auto test strip Ql (U) Negative Normal NEGATIVE [facility] Comment on above: Order Comment: [facility] to schedule Performed By: #### 5 8077-9 ####LISSETTE NEAL ([id number])[facility] ([facility])[address] [place] [address] Mucus Auto (Urine sed) [#/Area] FEW Normal Reference range not established. [facility] Comment on above: Performed By: #### 5 8077-9 ####LISSETTE NEAL ([id number])[facility] ([facility])[address] [place], [place] [address] Nitrite Auto test strip Ql (U) Negative Normal NEGATIVE [facility] Comment on above: Order Comment: [facility] to schedule Performed By: #### 5 8077-9 ####LISSETTE NEAL ([id number])[facility] ([facility])[address] [place] [address] pH (U) 6.0 [pH] Normal 5.0, 5.5, 6.0, 6.5, 7.0, 7.5, 8.0 [facility] Comment on above: Order Comment: [facility] to schedule Performed By: #### 5 8077-9 ####LISSETTE NEAL ([id number])[facility] ([facility])[address] [place] [address] Protein (U) [Mass/Vol] 300 (3+) Abnormal NEGAT PATRICK, 10 (TRACE), 20 (TRACE) [facility] Comment on above: Order Comment: [facility] to schedule Performed By: #### 5 8077-9 ####LISSETTE NEAL ([id number])[facility] ([facility])[address] [place] [address] RBC (U) [#/Vol] 0.03 (TRACE) Abnormal NEGATIVE [facility] Comment on above: Order Comment: [facility] to schedule Performed By: #### 5 8077-9 ####LISSETTE NEAL ([id number])[facility] ([facility])[address] [place] [address] RBC Auto (Urine sed) [#/Area] 1-2 Normal NONE, 1-2, 3-5 [facility] Comment on above: Performed By: #### 5 8077-9 ####LISSETTE NEAL ([id number])[facility] ([facility])[address] [place] [address] Specific gravity (U) [Rel density] 1.041 Normal 1.005-1.035 [facility] Comment on above: Order Comment: [facility] to schedule Performed By: #### 5 8077-9 ####LISSETTE NEAL ([id number])[facility] ([facility])[address] [place] [address] Urobilinogen (U) [Mass/Vol] 2 (1+) Abnormal Normal [facility] Comment on above: Order Comment: [facility] to schedule Result Comment: Due to a [...] Performed By: #### 5 8077-9 ####LISSETTE NEAL ([id number])[facility] ([facility])[address] [place], [place] [address] WBC Auto (Urine sed) [#/Area] 1-5 Normal 1-5, NONE [facility] Comment on above: Performed By: #### 5 8077-9 ####LISSETTE NEAL ([id number])[facility] ([facility])[address] [place] [address] Comprehensive metabolic 2000 panelon 12-15-2023 Albumin BCP dye [Mass/Vol] 4.6 g/dL Normal 3.4-5.0 [facility] Comment on above: Performed By: #### 5 3315-8 #### TRE Nichols ([id number]) [facility] ([facility]) [address] [place] [address] ALP [Catalytic activity/Vol] 80 U/L Normal 33-120 [facility] Comment on above: Performed By: #### 5 3315-8 #### TRE Nichols ([id number]) [facility] ([facility]) [address] [place] [address] ALT With P-5'-P [Catalytic activity/Vol] 61 U/L High 10-52 [facility] Comment on above: Result Comment: Marilu ents treated with Sulfasalazine may generate falsely decreased results for ALT. Performed By: #### 5 3315-8 #### TRE ROSE L ([id number]) [facility] ([facility]) [address] [place] [address] Anion gap [Moles/Vol] 15 mmol/L Normal 10-20 [facility] Comment on above: Performed By: #### 5 3315-8 #### TRE Nichols ([id number]) [facility] ([facility]) [address] [place] [address] AST With P-5'-P [Catalytic activity/Vol] 57 U/L High 9-39 [facility] Comment on above: Performed By: #### 5 3315-8 #### TRE Nichols ([id number]) [facility] ([facility]) [address] [place] [address] Bilirubin [Mass/Vol] 0.8 mg/dL Normal 0.0-1.2 [facility] Comment on above: Performed By: #### 5 331-8 #### TRE Nichols ([id number]) [facility] ([facility]) [id number] [place] [address]33 Calcium [Mass/Vol] 9.8 mg/dL Normal 8.6-10.6 [facility] Comment on above: Performed By: #### 5 3315-8 #### TRE Nichols ([id number]) [facility] ([facility]) [id number] [place] [address] 60650 Chloride [Moles/Vol] 98 mmol/L Normal 98-107 [facility] Comment on above: Performed By: #### 5 3315-8 #### TRE Nichols ([id number]) [facility] ([facility]) [address] [place] [address] CO2 [Moles/Vol] 32 mmol/L Normal 21-32 [facility] Comment on above: Performed By: #### 5 3315-8 #### TRE Nichols ([id number]) [facility] ([facility]) [address] [place] [address] Creatinine [Mass/Vol] 0.86 mg/dL Normal 0.50-1.30 [facility] Comment on above: Performed By: #### 5 3315-8 #### TRE Nichols ([id number]) [facility] ([facility]) [address] [place] [address]159 GFR/1.73 sq M.predicted MDRD (S/P/Bld) [Vol rate/Area] mL/min/{1.73_m2} Normal >60 [facility] Comment on above: Result Comment: Calc ulations of estimated GFR are performed using the 2020 CKD-EPI Study Refit equation without the race variable for the IDMS-Traceable creatinine methods. https://jasn.asnjournals.org/content//ASN.80868 96588 Performed By: #### 5 3315-8 #### TRE Nichols ([id number]) [facility] ([facility]) [address] [place] [address] Glucose [Mass/Vol] 143 mg/dL High 74-99 [facility] Comment on above: Performed By: #### 5 3315-8 #### TRE ROSE L ([id number]) [facility] ([facility]) [address] [place] [address] 18924 Potassium [Moles/Vol] 3.6 mmol/L Normal 3.5-5.3 [facility] Comment on above: Performed By: #### 5 3315-8 #### TRE ROSE L ([id number]) [facility] ([facility]) [address] [place] [address] Protein [Mass/Vol] 7.3 g/dL Normal 6.4-8.2 [facility] Comment on above: Performed By: #### 5 3315-8 #### TRE SAINZMOJESI L (83638) [facility] ([facility]) [address] [place] [address] 83791 Sodium [Moles/Vol] 141 mmol/L Normal 136-145 [facility] Comment on above: Performed By: #### 5 3315-8 #### TRE SAINZMOJESI L (22251) [facility] ([facility]) [address] [place] [address] 75595 Urea nitrogen [Mass/Vol] 10 mg/dL Normal 6-23 [facility] Comment on above: Performed By: #### 5 3315-8 #### TRE Nichols ([id number]) [facility] ([facility]) [address] [place] [address] Urateon 12-15-2023 Urate [Mass/Vol] 6.2 mg/dL Normal 4.0-7.5 [facility] Comment on above: Result Comment: Nina puncture immediately after or during the administration of Metamizole may lead to falsely low results. Testing should be performed immediately prior to Metamizole dosing. Performed By: #### 5 3315-8 #### TRE Nichols ([id number]) [facility] ([facility]) [address] [place] [address] US BILIARY SYSTEMon 12-11-19 US BILIARY SYSTEM Interpreted By: uMkesh Paredes, STUDY: US BILIARY SYSTEM 12/11/2023 3:51 pm INDICATION: 28 y/o M with Signs/Symptoms:liver pain. COMPARISON: None. ACCESSION NUMBER(S): [id number] ORDERING CLINICIAN: DEXTER DANIEL TECHNIQUE: Routine ultrasound [...] Mukesh Paredes 12/12/2023 5:59 PM Dictation workstation: [id number] [facility] Comment on above: Order Comment: To Hiro bowen Call [phone] US RENAL COMPLETEon 07-18-20 24 US RENAL COMPLETE Interpreted By: Mukesh Paredes, STUDY: US RENAL COMPLETE; 12/11/2023 12:10 pm INDICATION: Signs/Symptoms:ckd. COMPARISON: None. ACCESSION NUMBER(S): [id number] ORDERING CLINICIAN: DEXTER DANIEL TECHNIQUE: Grayscale and [...] Mukesh Paredes 12/12/2023 9:44 PM Dictation workstation: [id number] [facility] Comment on above: Order Comment: [facility] [phone] to schedule Absolute lymphocyte countOrd ered By: Lavell Patel on 09-04-2023 Lymphocytes Auto (Unsp spec) [#/Vol] 4.53 10*3/uL 0.83-4.51 [facility] Automated lymphocyte count a s percentage of total leukocytesOrdered By: Lavell Patel on 09-04-2023 Lymphocytes/100 WBC Auto (Unsp spec) 45.7 % 19-41 [facility] Basophil percentageOrdered B y: Lavell Patel on 09-04-2023 Basophils/100 WBC (Bld) 1.4 % 0-1 [facility] Bilirubin [Mass/Vol] 1.10 mg/dL 0.20-1.[address] [facility] Comment on above: For patients on eltr ombopag therapy, use of Dimension Lena TBIL is not recommended. Chloride [Moles/Vol] 103 mmol/L 98-[address] [facility] Eosinophils/100 WBC (Bld) 0.1 % 0-5 [facility] Glucose [Mass/Vol] 178 mg/dL 74-106 [facility] Comment on above: Fasting Glucose resu lt greater than or equal to 126 mg/dL suggests DIABETES MELLITUS per A.D.A. criteria. Hemoglobin (Bld) [Mass/Vol] 15.1 g/dL 13.0-16.5 [facility] Monocytes/100 WBC (Bld) 9.4 % 0-10 [facility] Neutrophils (Bld) [#/Vol] 4.3 10*3/uL 2.0-7.7 [facility] Neutrophils/100 WBC (Bld) 43.0 % 47-70 [facility] Potassium [Moles/Vol] 3.5 mmol/L 3.5-5.1 [facility] Protein [Mass/Vol] 7.1 g/dL 6.4-8.2 [facility] Sodium [Moles/Vol] 138 mmol/L 136-145 [facility] WBC (Bld) [#/Vol] 9.9 10*3/uL 4.4-11.0 [facility] Blood manual differential co mment interpretation (narrative result)Ordered By: Lavell Patel on 09-04-2023 Manual differential comment Gabriel (Bld) [Interp] SCANNED [facility] Determination of erythrocyte mean corpuscular volume (MCV)Ordered By: Lavell Patel on 09-04-2023 MCV (RBC) [Entitic vol] 87.4 fL 80-94 [facility] Erythrocyte distribution wid th ratioOrdered By: Lavell Patel on 09-04-2023 Erythrocyte distribution width (RBC) [Ratio] 12.9 % 11.6-14.6 [facility] Erythrocyte distribution wid th standard deviationOrdered By: Lavell Patel on 09-04-2023 Erythrocyte distribution width (RBC) [Entitic vol] 41.1 fL 35.1-43.9 [facility] Hematocrit Auto (Bld) [Volum e fraction]Ordered By: Lavell Patel on 09-04-2023 Hematocrit (Bld) [Volume fraction] 43.2 % 40-54 [facility] Immature granulocytes/100 WB C Auto (Bld)Ordered By: Lavell Patel on 09-04-2023 Immature granulocytes/100 WBC (Bld) 0.400 % 0.0-0.9 [facility] Comment on above: IG% - Immature Granu locytes (promyelocytes, myelocytes and metamyelocytes) > 1% indicates that a LEFT SHIFT is Present. Laboratory - Chemistry and C hemistry - challengeOrdered By: Lavell Patel on 09-04-2023 Albumin/Globulin [Mass ratio] 1.0 {ratio} 0.9-2.4 [facility] ALP [Catalytic activity/Vol] 151 U/L 45-117 [facility] ALT [Catalytic activity/Vol] 86 U/L 16-61 [facility] CO2 [Moles/Vol] 26.0 mmol/L 21.0-32.0 [facility] Globulin (S) [Mass/Vol] 3.6 g/dL 2.2-4.2 [facility] Urea nitrogen/Creatinine [Mass ratio] 9.4 mg/mg 10-20 [facility] Laboratory - Hematology and Cell countsOrdered By: Lavell Patel on 09-04-2023 MCH (RBC) [Entitic mass] 30.6 pg 27.0-32.0 [facility] MCHC (RBC) [Mass/Vol] 35.0 g/dL 32-36 [facility] Nucleated RBC/100 WBC (Bld) [Ratio] 0 % 0-5 [facility] Platelet mean volume (Bld) [Entitic vol] 9.4 fL 6.2-12.0 [facility] Platelets (Bld) [#/Vol] 177 10*3/uL 150-450 [facility] No Panel InformationOrdered By: Lavell Patel on 09-04-2023 Atypical Lymphocytes 1+ % [facility] Estimated Creatinine Clearance Calc 130.62 ml/min [facility] Estimated GFR (MDRD) Amer 121 mL/min >60 [facility] Comment on above: GFR Calc Estimated GFR (MDRD) Non-Af Amer 100 mL/min >60 [facility] Comment on above: Non- GFR Calc RBC Auto (Bld) [#/Vol]Ordere d By: Lavell Patel on 09-04-2023 RBC (Bld) [#/Vol] 4.94 10*6/uL 4.6-6.2 [facility] Serum or plasma calcium bucky urement (mass/volume)Ordered By: Lavell Patel on 09-04-2023 Calcium [Mass/Vol] 8.9 mg/dL 8.5-10.1 [facility] Serum or plasma creatinine m easurement (mass/volume)Ordered By: Lavell Patel on 09-04-2023 Creatinine [Mass/Vol] 0.96 mg/dL 0.70-1.30 [facility] Comment on above: The validity of the calculated GFR & GFRAA in patients over 70 years has not been determined. Clinical correlation is essential. Serum or plasma urea nitroge n measurement (mass/volume)Ordered By: Lavell Patel on 09-04-2023 Urea nitrogen [Mass/Vol] 9 mg/dL 7-18 [facility] Thin prep Papanicolaou smear with manual screeningOrdered By: Lavell Patel on 09-04-2023 Thin prep Papanicolaou smear with manual screening 3.5 g/dL 3.2-5.0 [facility] Thin prep Papanicolaou smear with manual screening 130 U/L 15 [facility] Thin prep Papanicolaou smear with manual screening 9 5-15 [facility] Laboratory - Hematology and Cell countson 08-15-2023 HbA1c (Bld) [Mass fraction] 9.0 % 4.2-6.3 [facility] Albumin/Creatinineon 024 Albumin/Creatinine DL <= 20 mg/L (U) [Mass ratio] 791.1 ug/mg Creat High <30.0 [facility] Comment on above: Performed By: #### 1 4959-1 #### TRE Nichols ([id number]) [facility] ([facility]) [id number] [place] [address]19 Albumin/Creatinine DL <= 20 mg/L (U) [Mass ratio]on 06-09-2023 Albumin DL <= 20 mg/L (U) [Mass/Vol] 425.6 mg/L Normal Not established [facility] Comment on above: Performed By: #### 1 4959-1 #### TRE Nichols (67755) [facility] ([facility]) [address] [place] [address] Creatinine (U) [Mass/Vol] 53.8 mg/dL Normal 20.0-370.0 [facility] Comment on above: Performed By: #### 1 4959-1 #### TRE Nichols (08285) [facility] ([facility]) [address] [place] [address] 25095 CBC W Auto Differential pane l (Bld)on 06-09-2023 Basophils (Bld) [#/Vol] 0.06 x10*3/uL Normal 0.00-0.10 [facility] Comment on above: Performed By: #### 5 7021-8 #### TRE Nichols ([id number]) [facility] ([facility]) [address] [place] [address] 31834 Basophils/100 WBC (Bld) 1.1 % Normal 0.0-2.0 [facility] Comment on above: Performed By: #### 5 7021-8 #### TRE Nichols ([id number]) [facility] ([facility]) [address] [place] [address] 55492 Eosinophils (Bld) [#/Vol] 0.15 x10*3/uL Normal 0.00-0.70 [facility] Comment on above: Performed By: #### 5 7021-8 #### TRE Nichols ([id number]) [facility] ([facility]) [address] [place] [address] 09302 Eosinophils/100 WBC (Bld) 2.6 % Normal 0.0-6.0 [facility] Comment on above: Performed By: #### 5 7021-8 #### TRE Nichols ([id number]) [facility] ([facility]) [address] [place] [address] 42482 Erythrocyte distribution width (RBC) [Ratio] 12.9 % Normal 11.5-14.5 [facility] Comment on above: Performed By: #### 5 7021-8 #### TRE Nichols (65858) [facility] ([facility]) [address] [place] [address] 70338 Hematocrit (Bld) [Volume fraction] 47.4 % Normal 41.0-52.0 [facility] Comment on above: Performed By: #### 5 7021-8 #### TRE HENRYER Magdalena ([id number]) [facility] ([facility]) [address] [place] [address] Hemoglobin (Bld) [Mass/Vol] 16.4 g/dL Normal 13.5-17.5 [facility] Comment on above: Performed By: #### 5 7021-8 #### TRE SAINZMOTZER L (88510) [facility] ([facility]) [address] [place] [address] 59190 Immature granulocytes (Bld) [#/Vol] 0.02 x10*3/uL Normal 0.00-0.70 [facility] Comment on above: Performed By: #### 5 7021-8 #### TRE ROSE L (14089) [facility] ([facility]) [address] [place] [address] 55405 Immature granulocytes/100 WBC (Bld) 0.4 % Normal 0.0-0.9 [facility] Comment on above: Result Comment: Suzanne ture Granulocyte Count (IG) includes promyelocytes, myelocytes and metamyelocytes but does not include bands. Percent differential counts (%) should be interpreted in the context of the absolute cell counts (cells/UL). Performed By: #### 5 7021-8 #### TRE Nichols (73650) [facility] ([facility]) [address] [place] [address] Lymphocytes (Bld) [#/Vol] 2.00 x10*3/uL Normal 1.20-4.80 [facility] Comment on above: Performed By: #### 5 7021-8 #### TRE ROSE L ([id number]) [facility] ([facility]) [address] [place] [address] Lymphocytes/100 WBC (Bld) 35.3 % Normal 13.0-44.0 [facility] Comment on above: Performed By: #### 5 7021-8 #### TRE SAINZMOTZANNA L ([id number]) [facility] ([facility]) [address] [place] [address] 56840 MCH (RBC) [Entitic mass] 30.7 pg Normal 26.0-34.0 [facility] Comment on above: Performed By: #### 5 7021-8 #### TRE Nichols ([id number]) [facility] ([facility]) [address] [place] [address] 73004 MCHC (RBC) [Mass/Vol] 34.6 g/dL Normal 32.0-36.0 [facility] Comment on above: Performed By: #### 5 7021-8 #### TRE Nichols ([id number]) [facility] ([facility]) [address] [place] [address] 39811 MCV (RBC) [Entitic vol] 89 fL Normal 80-100 [facility] Comment on above: Performed By: #### 5 7021-8 #### TRE Nichols (74605) [facility] ([facility]) [address] [place] [address] 28111 Monocytes (Bld) [#/Vol] 0.68 x10*3/uL Normal 0.10-1.00 [facility] Comment on above: Performed By: #### 5 7021-8 #### TRE Nichols (46596) [facility] ([facility]) [address] [place] [address] 52168 Monocytes/100 WBC (Bld) 12.0 % Normal 2.0-10.0 [facility] Comment on above: Performed By: #### 5 7021-8 #### TRE Nichols ([id number]) [facility] ([facility]) [address] [place] [address] 87171 Neutrophils (Bld) [#/Vol] 2.76 x10*3/uL Normal 1.20-7.70 [facility] Comment on above: Result Comment: Perc ent differential counts (%) should be interpreted in the context of the absolute cell counts (cells/uL). Performed By: #### 5 7021-8 #### TRE Nichols ([id number]) [facility] ([facility]) [address] [place] [address] 48705 Neutrophils/100 WBC (Bld) 48.6 % Normal 40.0-80.0 [facility] Comment on above: Performed By: #### 5 7021-8 #### TRE Nichols ([id number]) [facility] ([facility]) [address] [place] [address] 08234 Nucleated RBC/100 WBC (Bld) [Ratio] 0.0 /100 WBCs Normal 0.0-0.0 [facility] Comment on above: Performed By: #### 5 7021-8 #### TRE Nichols (95930) [facility] ([facility]) [address] [place] [address] 97768 Platelets (Bld) [#/Vol] 185 x10*3/uL Normal 150-450 [facility] Comment on above: Performed By: #### 5 7021-8 #### TRE Nichols (23321) [facility] ([facility]) [address] [place] [address] 16910 RBC (Bld) [#/Vol] 5.34 x10*6/uL Normal 4.50-5.90 [facility] Comment on above: Performed By: #### 5 7021-8 #### TRE Nichols (18139) [facility] ([facility]) [address] [place] [address] 35390 WBC (Bld) [#/Vol] 5.7 x10*3/uL Normal 4.4-11.3 [facility] Comment on above: Performed By: #### 5 7021-8 #### TRE Nichols ([id number]) [facility] ([facility]) [address] [place] [address] 54134 Cobalaminson 06-09-2023 Cobalamin (Vitamin B12) [Mass/Vol] 275 pg/mL Normal 211-911 [facility] Comment on above: Performed By: #### 2 132-9 #### TRE Nichols (18592) [facility] ([facility]) [address] [place] [address] 11040 Comprehensive metabolic 2000 panelon 06-09-2023 Albumin BCP dye [Mass/Vol] 5.3 g/dL High 3.4-5.0 [facility] Comment on above: Performed By: #### 2 4323-8 #### TRE Nichols (69943) [facility] ([facility]) [address] [place] [address] 80278 ALP [Catalytic activity/Vol] 74 U/L Normal 33-120 [facility] Comment on above: Performed By: #### 2 4323-8 #### TRE Nichols (31254) [facility] ([facility]) [address] [place] [address] 46081 ALT With P-5'-P [Catalytic activity/Vol] 35 U/L Normal 10-52 [facility] Comment on above: Result Comment: Marilu ents treated with Sulfasalazine may generate falsely decreased results for ALT. Performed By: #### 2 4323-8 #### TRE Nichols (50363) [facility] ([facility]) [address] [place] [address] 26197 Anion gap [Moles/Vol] 18 mmol/L Normal 10-20 [facility] Comment on above: Performed By: #### 2 4323-8 #### TRE Nichols ([id number]) [facility] ([facility]) [address] [place] [address] 36108 AST With P-5'-P [Catalytic activity/Vol] 26 U/L Normal 9-39 [facility] Comment on above: Performed By: #### 2 4323-8 #### TRE ROSE L (96391) [facility] ([facility]) [address] [place] [address] 79184 Bilirubin [Mass/Vol] 0.5 mg/dL Normal 0.0-1.2 [facility] Comment on above: Performed By: #### 2 4323-8 #### TRE Nichols ([id number]) [facility] ([facility]) [address] [place] [address] Calcium [Mass/Vol] 10.1 mg/dL Normal 8.6-10.6 [facility] Comment on above: Performed By: #### 2 4323-8 #### TRE Nichols ([id number]) [facility] ([facility]) [address] [place] [address] Chloride [Moles/Vol] 99 mmol/L Normal 98-107 [facility] Comment on above: Performed By: #### 2 4323-8 #### TRE ROSE L (51702) [facility] ([facility]) [address] [place] [address] CO2 [Moles/Vol] 27 mmol/L Normal 21-32 [facility] Comment on above: Performed By: #### 2 4323-8 #### TRE Nichols (07402) [facility] ([facility]) [address] [place] [address] Creatinine [Mass/Vol] 0.83 mg/dL Normal 0.50-1.30 [facility] Comment on above: Performed By: #### 2 4323-8 #### TRE ROSE L (73910) [facility] ([facility]) [address] [place] [address] GFR/1.73 sq M.predicted MDRD (S/P/Bld) [Vol rate/Area] mL/min/{1.73_m2} Normal >60 [facility] Comment on above: Result Comment: Calc ulations of estimated GFR are performed using the 2020 CKD-EPI Study Refit equation without the race variable for the IDMS-Traceable creatinine methods. https://jasn.asnjournals.org/content//ASN.51090 63823 Performed By: #### 2 4323-8 #### TRE Nichols (70602) [facility] ([facility]) [address] [place] [address] Glucose [Mass/Vol] 250 mg/dL High 74-99 [facility] Comment on above: Performed By: #### 2 4323-8 #### TRE GODWINTZER L (28485) [facility] ([facility]) [address] [place] [address] 89315 Potassium [Moles/Vol] 4.0 mmol/L Normal 3.5-5.3 [facility] Comment on above: Performed By: #### 2 4323-8 #### TRE SAINZMOTZER L (48557) [facility] ([facility]) [address] [place] [address] 74818 Protein [Mass/Vol] 7.6 g/dL Normal 6.4-8.2 [facility] Comment on above: Performed By: #### 2 4323-8 #### TRE SAINZMOTZER L (22384) [facility] ([facility]) [address] [place] [address] 31751 Sodium [Moles/Vol] 140 mmol/L Normal 136-145 [facility] Comment on above: Performed By: #### 2 4323-8 #### TRE HENRYER L (97748) [facility] ([facility]) [address] [place] [address] 38713 Urea nitrogen [Mass/Vol] 13 mg/dL Normal 6-23 [facility] Comment on above: Performed By: #### 2 4323-8 #### TRE GODWINTZER L (30122) [facility] ([facility]) [address] [place] [address] 95120 Drugs of abuse screen W Refl ex confirm panel (U)on 06-09-2023 Amphetamines Screen Ql (U) Negative Normal Presumptive Negative [facility] Comment on above: Order Comment: Drug [...] By: #### 5 3315-8 #### TRE Nichols (67318) [facility] ([facility]) [address] [place] [address] Barbiturates Screen Ql (U) Negative Normal Presumptive Negative [facility] Comment on above: Order Comment: Drug [...] #### 5 3315-8 #### TRE SAINZMOTZER L (51898) [facility] ([facility]) [address] [place] [address] 08834 Benzodiazepines Ql (U) Negative Normal Presu mptive Negative [facility] Comment on above: Order Comment: Drug [...] By: #### 5 3315-8 #### TRE Nichols (34854) [facility] ([facility]) [address] [place] [address] Benzoylecgonine Screen Ql (U) Negative Normal Presumptive Negative [facility] Comment on above: Order Comment: Drug [...] By: #### 5 3315-8 #### TRE Nichols (67520) [facility] ([facility]) [address] [place], [place] [id number] Cannabinoids Screen Ql (U) Negative Normal Presumptive Negative [facility] Comment on above: Order Comment: Drug [...] By: #### 5 3315-8 #### TRE Nichols (87689) [facility] ([facility]) [address] [place] [address] fentaNYL+Norfentanyl Screen Ql (U) Negative Normal Presumptive Negative [facility] Comment on above: Order Comment: Drug [...] By: #### 5 3315-8 #### TRE Nichols (82563) [facility] ([facility]) [address] [place] [address] Opiates Screen Ql (U) Negative Normal Presum ptive Negative [facility] Comment on above: Order Comment: Drug [...] By: #### 5 3315-8 #### TRE Nichols ([id number]) [facility] ([facility]) [address] [place] [address] 91803 oxyCODONE+oxyMORphone Screen Ql (U) Negative Normal Presumptive Negative [facility] Comment on above: Order Comment: Drug [...] By: #### 5 3315-8 #### TRE Nichols (84045) [facility] ([facility]) [address] [place] [address] 09823 Phencyclidine Ql (U) Negative Normal Presump tive Negative [facility] Comment on above: Order Comment: Drug [...] By: #### 5 3315-8 #### TRE Nichols (75807) [facility] ([facility]) [address] [place], [place] [address] HIV 1+2 Ab+HIV1 p24 Agon HIV 1+2 Ab+HIV1 p24 Ag IA Ql Non-Reactive Normal Nonreactive [facility] Comment on above: Order Comment: HIV A g/Ab screen is performed using the Siemens [employer] HIV Ag/Ab Combo assay which detects the presence of HIV p24 antigen as well as antibodies to HIV-1 (Group M and O) and HIV-2.No laboratory evidence of HIV infection. If acute HIV infection is suspected, consider testing for HIV RNA by PCR (viral load). Performed By: #### 5 3315-8 #### TRE Nichols ([id number]) [facility] ([facility]) [address] [place] [id number] HbA1c (Bld) [Mass fraction]o n 06-09-2023 Average glucose Estimated from glycated hemoglobin (Bld) [Mass/Vol] 220 mg/dL Normal Not Established [facility] Comment on above: Order Comment: Diagn osis of Kllnokyh-DnqqbrLsl-Rmhumicw: < or = 5.6%Increased risk for developing diabetes: 5.7-6.4%Diagnostic of diabetes: > or = 6.5%Monitoring of DiabetesAge (y)....................... Therapeutic Goal (%)Adults: >18.........................<7.0Pediatrics: 13-18...................<7.5Pediatrics: 7-12....................<8.0Pediatrics: 0-6..................... 7.5-8.5American Diabetes Association. Diabetes Care 33(S1)May 2009 Performed By: #### 5 3315-8 #### TRE Nichols ([id number]) [facility] ([facility]) [address] [place] [address] Hemoglobin A1c/Hemoglobin.to adarsh 06-09-2023 HbA1c (Bld) [Mass fraction] 9.3 % High see below [facility] Comment on above: Order Comment: Diagn osis of Ssydfchs-VwqxgmHji-Vqitbreq: < or = 5.6%Increased risk for developing diabetes: 5.7-6.4%Diagnostic of diabetes: > or = 6.5%Monitoring of DiabetesAge (y)....................... Therapeutic Goal (%)Adults: >18.........................<7.0Pediatrics: 13-18...................<7.5Pediatrics: 7-12....................<8.0Pediatrics: 0-6..................... 7.5-8.5American Diabetes Association. Diabetes Care 33(S1)May 2009 Performed By: #### 5 3315-8 #### TRE Nichols ([id number]) [facility] ([facility]) [address] [place] [address] Hepatitis C virus Abon 06-09 HCV Ab Ql (S) Non-Reactive Normal Nonreactive [facility] Comment on above: Result Comment: Resu lts from patients taking biotin supplements or receiving high-dose biotin therapy should be interpreted with caution due to possible interference with this test. Providers may contact their local laboratory for further information. Performed By: #### 5 3315-8 #### TRE Nichols ([id number]) [facility] ([facility]) [id number] [place] [address] Iron and Iron binding capaci ty panelon 06-09-2023 Iron [Mass/Vol] 77 ug/dL Normal 35-150 [facility] Comment on above: Performed By: #### 5 0190-8 #### TRE Nichols ([id number]) [facility] ([facility]) [address] [place] [address]3428 Iron binding capacity [Mass/Vol] 381 ug/dL Normal 240-445 [facility] Comment on above: Performed By: #### 5 0190-8 #### TRE Nichols ([id number]) [facility] ([facility]) [address] [place] [address] Iron binding capacity.unsaturated [Mass/Vol] 304 ug/dL Normal 110-370 [facility] Comment on above: Performed By: #### 5 0190-8 #### TRE Nichols ([id number]) [facility] ([facility]) [address] [place] [address] 77318 Iron saturation [Mass fraction] 20 % Low 25-45 [facility] Comment on above: Performed By: #### 5 0190-8 #### TRE Nichols ([id number]) [facility] ([facility]) [address] [place] [address] Lipid 1996 panelon Cholesterol [Mass/Vol] 297 mg/dL High 0-199 Un [facility] Comment on above: Result Comment: Age [...] By: #### 2 4331-1 #### TRE Nichols ([id number]) [facility] ([facility]) [id number] [place] [address] Cholesterol in HDL [Mass/Vol] 73.2 mg/dL Normal [facility] Comment on above: Result Comment: Age Very Low Low Normal High 0-19 Y < 35 < 40 40-45 ---- 20-24 Y ---- < 40 >45 ---- >24 Y ---- < 40 40-60 >60 Performed By: #### 2 4331-1 #### TRE Nichols ([id number]) [facility] ([facility]) [address] [place] [address] Cholesterol in LDL [Mass/Vol] 177 mg/dL High <=99 [facility] Comment on above: Result Comment: Near Borderline AGE Desirable Optimal High High Very High 0-19 Y 0 - 109 --- 110-129 >/= 130 ---- 20-24 Y 0 - 119 --- 120-159 >/= 160 ---- >24 Y 0 - 99 100-129 130-159 160-189 >/=190 Performed By: #### 2 4331-1 #### TRE Nichols ([id number]) [facility] ([facility]) [address] [place] [address] Cholesterol in VLDL [Mass/Vol] 47 mg/dL High 0-40 [facility] Comment on above: Performed By: #### 2 4331-1 #### TRE Nichols ([id number]) [facility] ([facility]) [address] [place] [address]562 CHOLESTEROL/HDL RATIO 4.1 Normal [facility] Comment on above: Result Comment: Ref Values Desirable < 3.4 High Risk > 5.0 Performed By: #### 2 4331-1 #### TRE Nichols ([id number]) [facility] ([facility]) [address] [place] [address] 52465 NON HDL CHOLESTEROL 224 mg/dL High 0-149 [facility] Comment on above: Result Comment: Age Desirable Borderline High High Very High 0-19 Y 0 - 119 120 - 144 >/= 145 >/= 160 20-24 Y 0 - 149 150 - 189 >/= 190 ---- >24 Y 30 mg/dL above LDL Cholesterol goal Performed By: #### 2 4331-1 #### TRE Nichols ([id number]) [facility] ([facility]) [address] [place] [address] Triglyceride [Mass/Vol] 236 mg/dL High 0-149 [facility] Comment on above: Result Comment: [...] By: #### 2 4331-1 #### TRE Nichols ([id number]) [facility] ([facility]) [address] [place], [place] [id number] Magnesiumon 06-09-2023 Magnesium [Mass/Vol] 2.19 mg/dL Normal 1.60-2.40 [facility] Comment on above: Performed By: #### 1 9123-9 #### TRE Nichols ([id number]) [facility] ([facility]) [address] [place] [address] 64285 TSH WITH REFLEX TO FREE T4 I F ABNORMALon 06-09-2023 TSH Qn 4.78 m[IU]/L High 0.44-3.98 [facility] Comment on above: Order Comment: TSH t esting is performed using different testing methodology at [facility] than at [facility]. Direct result comparisons should only be made within the same method. Performed By: #### T CHANDRIKA #### TRE Nichols ([id number]) [facility] ([facility]) [address] [place] [address] 24661 Testosterone Free/Testostero ne.total [Mass fraction]on 06-09-2023 Testosterone [Mass/Vol] 638 ng/dL Normal 250-1100 [facility] Comment on above: Result Comment: For additional information, please refer to http://education.Imagga/faq/ [email or web address] (This link is being provided for informational/ educational purposes only.) This test was developed and its analytical performance characteristics have been determined by [employer] [place], [place]. It has not been cleared or approved by the U.S. Food and Drug Administration. This assay has been validated pursuant to the CLIA regulations and is used for clinical purposes. Performed By: #### 5 3315-8 #### TRE Nichols ([id number]) [facility] ([facility]) [address] [place] [address]2624 Testosterone Free [Mass/Vol] 131.4 pg/mL Normal 35.0-155.0 [facility] Comment on above: Result Comment: This test was developed and its analytical performance characteristics have been determined by [employer] [place], [place]. It has not been cleared or approved by the U.S. Food and Drug Administration. This assay has been validated pursuant to the CLIA regulations and is used for clinical purposes. Performed By: #### 5 3315-8 #### TRE Nichols ([id number]) [facility] ([facility]) [address] [place] [address]48[address] Thyroxine.freeon 06-09-2023 Free T4 [Mass/Vol] 1.10 ng/dL Normal 0.78-1.48 [facility] Comment on above: Order Comment: Thyro xine Free testing is performed using different testing methodology at [facility] than at other system hospitals. Direct result comparisons should only be made within the same method. Performed By: #### 5 3315-8 #### TRE Nichols ([id number]) [facility] ([facility]) [address] [place] [address] 6[address] Urateon 06-09-2023 Urate [Mass/Vol] 6.3 mg/dL Normal 4.0-7.5 [facility] Comment on above: Result Comment: Nina puncture immediately after or during the administration of Metamizole may lead to falsely low results. Testing should be performed immediately prior to Metamizole dosing. Performed By: #### 3 084-1 #### TRE Nichols ([id number]) [facility] ([facility]) [address] [place] [address]7791 Urinalysis microscopic panel Auto Ql (U)on 06-09-2023 RBC Auto (Urine sed) [#/Area] NONE Normal NONE, 1-2, 3-5 [facility] Comment on above: Performed By: #### 5 3315-8 #### TRE Nichols ([id number]) [facility] ([facility]) [address] [place] [address] 42775 WBC Auto (Urine sed) [#/Area] NONE Normal 1-5, NONE [facility] Comment on above: Performed By: #### 5 3315-8 #### TRE Nichols ([id number]) [facility] ([facility]) [address] [place] [address]32[address] Glucose Glucometer (BldC) [M ass/Vol]Ordered By: Colten Crystal on 03-23-2023 Glucose [Mass/Vol] 186 mg/dL 74-106 [facility] Comment on above: MANAGEMENT OF PATIEN T CARE PER NURSING PROTOCOL Basophil percentageOrdered B y: William Bowers on 03-21-2023 Bilirubin [Mass/Vol] 1.30 mg/dL 0.20-1.[address] [facility] Comment on above: For patients on eltr ombopag therapy, use of Dimension Lena TBIL is not recommended. Chloride [Moles/Vol] 98 mmol/L 98-[address] [facility] Glucose [Mass/Vol] 263 mg/dL 74-106 [facility] Comment on above: Glucose result great er than or equal to 200 mg/dLsuggests DIABETES MELLITUS per A.D.A. criteria. Potassium [Moles/Vol] 4.4 mmol/L 3.5-5.1 [facility] Protein [Mass/Vol] 7.4 g/dL 6.4-8.2 [facility] Sodium [Moles/Vol] 133 mmol/L 136-145 [facility] Laboratory - Chemistry and C hemistry - challengeOrdered By: William Bowers on 03-21-2023 ALP [Catalytic activity/Vol] 76 U/L 45-117 [facility] ALT [Catalytic activity/Vol] 59 U/L 16-61 [facility] CO2 [Moles/Vol] 24.0 mmol/L 21.0-32.0 [facility] Globulin (S) [Mass/Vol] 4.0 g/dL 2.2-4.2 [facility] Urea nitrogen/Creatinine [Mass ratio] 16.9 mg/mg 10-20 [facility] No Panel InformationOrdered By: William Bowers on 03-21-2023 Estimated Creatinine Clearance Calc 133.17 ml/min [facility] Estimated GFR (MDRD) Amer 123 mL/min >60 [facility] Comment on above: GFR Calc Estimated GFR (MDRD) Non-Af Amer 102 mL/min >60 [facility] Comment on above: Non- GFR Calc Serum or plasma albumin bucky urement (mass/volume)Ordered By: William Bowers on 03-21-2023 Albumin [Mass/Vol] 3.4 g/dL 3.2-5.0 [facility] Serum or plasma albumin/glob ulin mass ratioOrdered By: William Bowers on 03-21-2023 Albumin/Globulin [Mass ratio] 0.8 {ratio} 0.9-2.4 [facility] Serum or plasma calcium bucky urement (mass/volume)Ordered By: William Bowers on 03-21-2023 Calcium [Mass/Vol] 9.0 mg/dL 8.5-10.1 [facility] Serum or plasma creatinine m easurement (mass/volume)Ordered By: William Bowers on 03-21-2023 Creatinine [Mass/Vol] 0.95 mg/dL 0.70-1.30 [facility] Comment on above: The validity of the calculated GFR & GFRAA in patients over 70 years has not been determined. Clinical correlation is essential. Serum or plasma urea nitroge n measurement (mass/volume)Ordered By: William Bowers on 03-21-2023 Urea nitrogen [Mass/Vol] 16 mg/dL 7-18 [facility] Thin prep Papanicolaou smear with manual screeningOrdered By: William Bowers on 03-21-2023 Thin prep Papanicolaou smear with manual screening 36 U/L 15- [facility] Thin prep Papanicolaou smear with manual screening 11 5-15 [facility] Laboratory - Drug toxicology Ordered By: Dafne Cornell on 03-20-2023 Amphetamines Ql (U) Negative <1000 ng/mL [facility] Benzodiazepines Ql (U) Negative < 200 ng/mL [facility] Cannabinoids Screen Ql (U) Negative < 50 ng/mL [facility] Cocaine Ql (U) Negative < 300 ng/mL [facility] Opiates Ql (U) Negative < 300 ng/mL [facility] No Panel InformationOrdered By: Dafne Cornell on 03-20-2023 MDMA (Ecstasy) Screen Negative < 500 ng/mL [facility] Urine Barbiturates Screen Negative < 200 ng/mL [facility] Urine Drug Screen Comment [facility] Comment on above: CONFIRMATORY TESTING FOR ALL [...] Urine Methadone Screen Negative < 300 ng/mL [facility] Ethyl Alcohol Level 353.0 mg/dL [facility] Comment on above: Critical Result(s) Rj veronicad at: 02:22:34 03/20/2023 by: Capo Medina TO [...] (U) Negative < 25 ng/mL [facility] Office Visit (Internal Medic ine)on 07-22-2022 [...] Never smoker Tobacco Use Screening; Status:Complete; Done: [id number] Perform:Not Applicable;Ordered; For:SocHx: Never smoker; Ordered By:Dexter [...] reason.; Your symptoms return during treatment Call [phone] if: You are thinking about harming yourself [...] B12 folic acid and thiamine psych and social media developer evaluation done to follow Hyperlipidemia Lipitor Anxiety depression lorazepam lipidemia Hypertension Hyperlipidemia diet and exercise Gastritis Pepcid Diabetes continue NovoLog insulin pump Refer patient to psych and intelligence intern According to the mom patient's and her comorbid condition patient not able to work at least for next 6 to 9 months advised follow-up with the psych and endocrine Chief Complaint Chief Complaints Visit For: Other follow up [facility] papers Adult Risk Screening Initial Fall Risk Screening: JORGE has not fallen in the last 6 months. History of Present Illness 27-year-old patient of hypertension hyperlipidemia diabetes alcohol abuse multiple hospitalization because of alcohol withdrawal and detox program and a DKA Seen by psych and intelligence intern Because of underlying mental health problem and [...] NameInstruction Atorvas (more content not included)... Normal [place] Tobacco Screening.on 023 Fall risk assessment a) No falls within the last year [facility] Internal Medicine Work Phone: Tobacco use status [facility] b) No [facility] Internal Medicine Work Phone: Assessment of wrist artery p atency prior to arterial punctureOrdered By: Dr. Cedillo on 07-16-2022 Arterial patency Wrist artery --pre arterial puncture Positive [facility] Base excessOrdered By: Dr. Destiny lewis on 07-16-2022 Base excess Calc (BldV) [Moles/Vol] -12 mmol/L -- [facility] Basophil percentageOrdered B y: Dr. Cedillo on 07-16-2022 Bilirubin [Mass/Vol] 0.60 mg/dL 0.20-1.[address] [facility] Comment on above: For patients on eltr ombopag therapy, use of Dimension Lena TBIL is not recommended. Chloride [Moles/Vol] 102 mmol/L 98-[address] [facility] Glucose [Mass/Vol] 462 mg/dL 74-106 [facility] Comment on above: Critical Result(s) C alled at: 05:11:14 07/16/2022 by: SIMONE SALAZAR TO EUNICE GARCIA. Results read back by same.Glucose result greater than or equal to 200 mg/dLsuggests DIABETES MELLITUS per A.D.A. criteria. Potassium [Moles/Vol] 3.1 mmol/L 3.5-5.1 [facility] Protein [Mass/Vol] 5.9 g/dL 6.4-8.2 [facility] Sodium [Moles/Vol] 134 mmol/L 136-145 [facility] Basophil percentage 13.3 mmol/L 22-[address] [facility] Basophils/100 WBC (Bld) 98 % 95-99 [facility] CO2 (BldA) [Partial pressure ]Ordered By: Dr. Cedillo on 07-16-2022 CO2 (Bld) [Partial pressure] 23.1 mm[Hg] 35-45 [facility] Glucose Glucometer (BldC) [M ass/Vol]Ordered By: Dr. Murphy on 07-16-2022 Glucose [Mass/Vol] 87 mg/dL 74-106 [facility] Comment on above: MANAGEMENT OF PATIEN T CARE PER NURSING PROTOCOL Laboratory - Chemistry and C hemistry - challengeOrdered By: Dr. Cedillo on 07-16-2022 ALP [Catalytic activity/Vol] 75 U/L 45-117 [facility] ALT [Catalytic activity/Vol] 48 U/L 16-61 [facility] CO2 [Moles/Vol] 19.0 mmol/L 21.0-32.0 [facility] Globulin (S) [Mass/Vol] 2.8 g/dL 2.2-4.2 [facility] Urea nitrogen/Creatinine [Mass ratio] 11.1 mg/mg 10-20 [facility] No Panel InformationOrdered By: Dr. Cedillo on 07-16-2022 Estimated Creatinine Clearance Calc 100.40 ml/min [facility] Estimated GFR (MDRD) Amer 89 mL/min >60 [facility] Comment on above: GFR Calc Estimated GFR (MDRD) Non-Af Amer 73 mL/min >60 [facility] Comment on above: Non- GFR Calc Blood Gas Oxygen Percent 21 [facility] Blood Gas Sample Site R Radial [facility] Blood Gas Specimen Type ART [facility] Blood Gas Total CO2 14 [facility]L [facility] Room Air [facility] Ethyl Alcohol Level < 3.0 mg/dL [facility] Comment on above: The serum:whole bloo d ethanol ratio is approximately 1.14and varies slightly with hematocrit. Medical Alcohol reference interval and critical value innon-tolerant individuals; 50 - 100 Impairment 100 Intoxication 100 - 250 Severe Poisoning 250 - 400 Deep/possible fatal coma Oxygen (BldA) [Partial press ure]Ordered By: Dr. Cedillo on 07-16-2022 Oxygen (Bld) [Partial pressure] 104 mmHG 75-100 [facility] Serum or plasma albumin bucky urement (mass/volume)Ordered By: Dr. Cedillo on 07-16-2022 Albumin [Mass/Vol] 3.1 g/dL 3.2-5.0 [facility] Serum or plasma albumin/glob ulin mass ratioOrdered By: Dr. Cedillo on 07-16-2022 Albumin/Globulin [Mass ratio] 1.1 {ratio} 0.9-2.4 [facility] Serum or plasma calcium bucky urement (mass/volume)Ordered By: Dr. Cedillo on 07-16-2022 Calcium [Mass/Vol] 7.7 mg/dL 8.5-10.1 [facility] Serum or plasma creatinine m easurement (mass/volume)Ordered By: Dr. Cedillo on 07-16-2022 Creatinine [Mass/Vol] 1.26 mg/dL 0.70-1.30 [facility] Comment on above: The validity of the calculated GFR & GFRAA in patients over 70 years has not been determined. Clinical correlation is essential. Serum or plasma urea nitroge n measurement (mass/volume)Ordered By: Dr. Cedillo on 07-16-2022 Urea nitrogen [Mass/Vol] 14 mg/dL 7-18 [facility] Thin prep Papanicolaou smear with manual screeningOrdered By: Dr. Cedillo on 07-16-2022 Thin prep Papanicolaou smear with manual screening 27 U/L 15-37 [facility] Thin prep Papanicolaou smear with manual screening 13 5-15 [facility] Whole blood hemoglobin A1c/t otal hemoglobin ratio (mass fraction)Ordered By: Dr. Cedillo on 07-16-2022 HbA1c (Bld) [Mass fraction] 8.5 % 3.8-5.6 [facility] Comment on above: Normal < 5.7 % Predi abetic 5.7 - 6.4 % Diabetic >or= 6.5 % Please note range changes. pH measurementOrdered By: Dr Danay Cedillo on 07-16-2022 pH (Unsp spec) 7.37 [pH] 7.35-7.45 [facility] Absolute lymphocyte countOrd ered By: Dr. Hopper on 07-15-2022 Lymphocytes Auto (Unsp spec) [#/Vol] 0.99 10*3/uL 0.83-4.51 [facility] Basophil percentageOrdered B y: Dr. Hopper on 07-15-2022 Basophils/100 WBC (Bld) 1.1 % 0-1 [facility] Chloride [Moles/Vol] 96 mmol/L 98-[address] [facility] Eosinophils/100 WBC (Bld) 0.1 % 0-5 [facility] Glucose [Mass/Vol] 285 mg/dL 74-106 [facility] Comment on above: Glucose result great er than or equal to 200 mg/dLsuggests DIABETES MELLITUS per A.D.A. criteria. Neutrophils (Bld) [#/Vol] 9.2 10*3/uL 2.0-7.7 [facility] Neutrophils/100 WBC (Bld) 77.3 % 47-70 [facility] Potassium [Moles/Vol] 3.8 mmol/L 3.5-5.1 [facility] Sodium [Moles/Vol] 133 mmol/L 136-145 [facility] WBC (Bld) [#/Vol] 11.9 10*3/uL 4.4-11.0 [facility] Blood erythrocytes count (nu mber/volume)Ordered By: Dr. Hopper on 07-15-2022 RBC (Bld) [#/Vol] 5.34 10*6/uL 4.6-6.2 [facility] Blood hemoglobin measurement (mass/volume)Ordered By: Dr. Hopper on 07-15-2022 Hemoglobin (Bld) [Mass/Vol] 16.6 g/dL 13.0-16.5 [facility] Blood lymphocytes/100 leukoc ytesOrdered By: Dr. Hopper on 07-15-2022 Lymphocytes/100 WBC (Bld) 8.3 % 19-41 [facility] Blood manual differential co mment interpretation (narrative result)Ordered By: Dr. Hopper on 07-15-2022 Manual differential comment Gabriel (Bld) [Interp] SCANNED [facility] Comment on above: MONOCYTOSIS NOTED Blood monocytes/100 leukocyt esOrdered By: Dr. Hopper on 07-15-2022 Monocytes/100 WBC (Bld) 12.8 % 0-10 [facility] Blood platelet mean volumeOr dered By: Dr. Hopper on 07-15-2022 Platelet mean volume (Bld) [Entitic vol] 9.8 fL 6.2-12.0 [facility] Determination of erythrocyte mean corpuscular volume (MCV)Ordered By: Dr. Hopper on 07-15-2022 MCV (RBC) [Entitic vol] 90.4 fL 80-94 [facility] Glucose Glucometer (BldC) [M ass/Vol]Ordered By: Dr. Cedillo on 07-15-2022 Glucose [Mass/Vol] 219 mg/dL 74-106 [facility] Comment on above: MANAGEMENT OF PATIEN T CARE PER NURSING PROTOCOL Hematocrit Auto (Bld) [Volum e fraction]Ordered By: Dr. Hopper on 07-15-2022 Hematocrit (Bld) [Volume fraction] 48.3 % 40-54 [facility] Laboratory - Chemistry and C hemistry - challengeOrdered By: Dr. Hopper on 07-15-2022 CO2 [Moles/Vol] 10.0 mmol/L 21.0-32.0 [facility] Urea nitrogen/Creatinine [Mass ratio] 12.6 mg/mg 03-14 [facility] Laboratory - Chemistry and C hemistry - challengeOrdered By: Dr. Cedillo on 07-15-2022 Magnesium [Mass/Vol] 2.2 mg/dL 1.6-2.[address] [facility] Laboratory - Hematology and Cell countsOrdered By: Dr. Hopper on 07-15-2022 Erythrocyte distribution width (RBC) [Entitic vol] 42.1 fL 35.1-43.9 [facility] Erythrocyte distribution width (RBC) [Ratio] 12.8 % 11.6-14.6 [facility] Immature granulocytes/100 WBC (Bld) 0.400 % 0.0-0.9 [facility] Comment on above: IG% - Immature Granu locytes (promyelocytes, myelocytes and metamyelocytes) > 1% indicates that a LEFT SHIFT is Present. MCH (RBC) [Entitic mass] 31.1 pg 27.0-32.0 [facility] Nucleated RBC/100 WBC (Bld) [Ratio] 0 % 0-5 [facility] MCHC Auto (RBC) [Mass/Vol]Or dered By: Dr. Hopper on 07-15-2022 MCHC (RBC) [Mass/Vol] 34.4 g/dL 32-36 [facility] No Panel InformationOrdered By: Dr. Hopper on 07-15-2022 Estimated Creatinine Clearance Calc 79.56 ml/min [facility] Estimated GFR (MDRD) Amer 68 mL/min >60 [facility] Comment on above: GFR Calc Estimated GFR (MDRD) Non-Af Amer 56 mL/min >60 [facility] Comment on above: Non- GFR Calc Platelets bldOrdered By: Dr. Hopper on 07-15-2022 Platelets (Bld) [#/Vol] 163 10*3/uL 150-450 [facility] Review by pathologistOrdered By: Dr. Hopper on 07-15-2022 Pathologist review Gabriel (Unsp spec) [Interp] May foll [facility] Serum or plasma acetone bucky urement (mass/volume)Ordered By: Dr. Hopper on 07-15-2022 Acetone [Mass/Vol] MODERATE NEG [facility] Serum or plasma calcium bucky urement (mass/volume)Ordered By: Dr. Hopper on 07-15-2022 Calcium [Mass/Vol] 9.8 mg/dL 8.5-10.1 [facility] Serum or plasma creatinine m easurement (mass/volume)Ordered By: Dr. Hopper on 07-15-2022 Creatinine [Mass/Vol] 1.59 mg/dL 0.70-1.30 [facility] Comment on above: The validity of the calculated GFR & GFRAA in patients over 70 years has not been determined. Clinical correlation is essential. Serum or plasma urea nitroge n measurement (mass/volume)Ordered By: Dr. Hopper on 07-15-2022 Urea nitrogen [Mass/Vol] 20 mg/dL 7-18 [facility] Thin prep Papanicolaou smear with manual screeningOrdered By: Dr. Hopper on 07-15-2022 Thin prep Papanicolaou smear with manual screening 27 5-15 [facility] Thin prep Papanicolaou smear with manual screeningOrdered By: Dr. Cedillo on 07-15-2022 Thin prep Papanicolaou smear with manual screening 310 mOsm/KG 275-295 [facility] Basophil percentageOrdered B y: Dr. Murphy on 06-20-2022 Chloride [Moles/Vol] 101 mmol/L 98-[address] [facility] [facility] Glucose [Mass/Vol] 94 mg/dL 74-106 [facility] Potassium [Moles/Vol] 4.2 mmol/L 3.5-5.1 [facility] Sodium [Moles/Vol] 137 mmol/L 136-145 [facility] Laboratory - Chemistry and C hemistry - challengeOrdered By: Dr. Murphy on 06-20-2022 CO2 [Moles/Vol] 29.0 mmol/L 21.0-32.0 [facility] Urea nitrogen/Creatinine [Mass ratio] 9.3 mg/mg 10-20 [facility] No Panel InformationOrdered By: Dr. Murphy on 06-20-2022 Estimated Creatinine Clearance Calc 147.10 ml/min [facility] Estimated GFR (MDRD) Amer 138 mL/min >60 [facility] Comment on above: GFR Calc Estimated GFR (MDRD) Non-Af Amer 114 mL/min >60 [facility] Comment on above: Non- GFR Calc Serum or plasma calcium bucky urement (mass/volume)Ordered By: Dr. Murphy on 06-20-2022 Calcium [Mass/Vol] 9.1 mg/dL 8.5-10.1 [facility] Serum or plasma creatinine m easurement (mass/volume)Ordered By: Dr. Murphy on 06-20-2022 Creatinine [Mass/Vol] 0.86 mg/dL 0.70-1.30 [facility] Comment on above: The validity of the calculated GFR & GFRAA in patients over 70 years has not been determined. Clinical correlation is essential. Serum or plasma urea nitroge n measurement (mass/volume)Ordered By: Dr. Murphy on 06-20-2022 Urea nitrogen [Mass/Vol] 8 mg/dL 7-18 [facility] Thin prep Papanicolaou smear with manual screeningOrdered By: Dr. Murphy on 06-20-2022 Thin prep Papanicolaou smear with manual screening 7 5-15 [facility] Basophil percentageOrdered B y: Dr. Murphy on 06-19-2022 Basophil percentage 3.8 mg/dL 2.5-4.9 [facility] Bilirubin [Mass/Vol] 0.50 mg/dL 0.20-1.[address] [facility] Comment on above: For patients on eltr ombopag therapy, use of Dimension Lena TBIL is not recommended. Protein [Mass/Vol] 6.2 g/dL 6.4-8.2 [facility] Laboratory - Chemistry and C hemistry - challengeOrdered By: Dr. Murphy on 06-19-2022 ALP [Catalytic activity/Vol] 73 U/L 45-117 [facility] ALT [Catalytic activity/Vol] 42 U/L 16-61 [facility] Globulin (S) [Mass/Vol] 3.1 g/dL 2.2-4.2 [facility] Magnesium [Mass/Vol] 2.0 mg/dL 1.6-2.[address] [facility] Serum or plasma albumin bucky urement (mass/volume)Ordered By: Dr. Murphy on 06-19-2022 Albumin [Mass/Vol] 3.1 g/dL 3.2-5.0 [facility] Serum or plasma albumin/glob ulin mass ratioOrdered By: Dr. Murphy on 06-19-2022 Albumin/Globulin [Mass ratio] 1.0 {ratio} 0.9-2.4 [facility] Thin prep Papanicolaou smear with manual screeningOrdered By: Dr. Murphy on 06-19-2022 Thin prep Papanicolaou smear with manual screening 27 U/L 15-37 [facility] Absolute lymphocyte countOrd ered By: Dr. Patel on 06-17-2022 Lymphocytes Auto (Unsp spec) [#/Vol] 2.22 10*3/uL 0.83-4.51 [facility] Basophil percentageOrdered B y: Dr. Patel on 06-17-2022 Basophils/100 WBC (Bld) 0.5 % 0-1 [facility] Bilirubin [Mass/Vol] 0.30 mg/dL 0.20-1.[address] [facility] Comment on above: For patients on eltr ombopag therapy, use of Dimension Lena TBIL is not recommended. Chloride [Moles/Vol] 111 mmol/L 98-[address] [facility] Eosinophils/100 WBC (Bld) 1.5 % 0-5 [facility] Glucose [Mass/Vol] 203 mg/dL 74-106 [facility] Comment on above: Glucose result great er than or equal to 200 mg/dLsuggests DIABETES MELLITUS per A.D.A. criteria. Neutrophils (Bld) [#/Vol] 3.2 10*3/uL 2.0-7.7 [facility] Neutrophils/100 WBC (Bld) 52.8 % 47-70 [facility] Potassium [Moles/Vol] 3.9 mmol/L 3.5-5.1 [facility] Protein [Mass/Vol] 7.7 g/dL 6.4-8.2 [facility] Sodium [Moles/Vol] 145 mmol/L 136-145 [facility] WBC (Bld) [#/Vol] 6.1 10*3/uL 4.4-11.0 [facility] Blood erythrocytes count (nu mber/volume)Ordered By: Dr. Patel on 06-17-2022 RBC (Bld) [#/Vol] 4.84 10*6/uL 4.6-6.2 [facility] Blood hemoglobin measurement (mass/volume)Ordered By: Dr. Patel on 06-17-2022 Hemoglobin (Bld) [Mass/Vol] 15.3 g/dL 13.0-16.5 [facility] Blood lymphocytes/100 leukoc ytesOrdered By: Dr. Patel on 06-17-2022 Lymphocytes/100 WBC (Bld) 36.5 % 19-41 [facility] Blood monocytes/100 leukocyt esOrdered By: Dr. Patel on 06-17-2022 Monocytes/100 WBC (Bld) 8.2 % 0-10 [facility] Blood platelet mean volumeOr dered By: Dr. Patel on 06-17-2022 Platelet mean volume (Bld) [Entitic vol] 9.4 fL 6.2-12.0 [facility] Determination of erythrocyte mean corpuscular volume (MCV)Ordered By: Dr. Patel on 06-17-2022 MCV (RBC) [Entitic vol] 90.5 fL 80-94 [facility] Hematocrit Auto (Bld) [Volum e fraction]Ordered By: Dr. Patel on 06-17-2022 Hematocrit (Bld) [Volume fraction] 43.8 % 40-54 [facility] INR in Blood by Coagulation assayOrdered By: Dr. Patel on 06-17-2022 INR Coag (Bld) [Relative time] 1.0 {INR} [facility] Laboratory - Chemistry and C hemistry - challengeOrdered By: Dr. Patel on 06-17-2022 ALP [Catalytic activity/Vol] 93 U/L 45-117 [facility] ALT [Catalytic activity/Vol] 74 U/L 16-61 [facility] CO2 [Moles/Vol] 26.0 mmol/L 21.0-32.0 [facility] Globulin (S) [Mass/Vol] 3.8 g/dL 2.2-4.2 [facility] Urea nitrogen/Creatinine [Mass ratio] 7.2 mg/mg 10-20 [facility] Laboratory - CoagulationOrde red By: Dr. Patel on 06-17-2022 PT Coag (PPP) [Time] 13.1 s 11.7-14.[address] [facility] Laboratory - Drug toxicology Ordered By: Dr. Patel on 06-17-2022 Amphetamines Ql (U) Negative <1000 ng/mL [facility] Benzodiazepines Ql (U) Negative < 200 ng/mL [facility] Cannabinoids Screen Ql (U) Negative < 50 ng/mL [facility] Cocaine Ql (U) Negative < 300 ng/mL [facility] Opiates Ql (U) Negative < 300 ng/mL [facility] Laboratory - Hematology and Cell countsOrdered By: Dr. Patel on 06-17-2022 Erythrocyte distribution width (RBC) [Entitic vol] 45.5 fL 35.1-43.9 [facility] Erythrocyte distribution width (RBC) [Ratio] 13.7 % 11.6-14.6 [facility] Immature granulocytes/100 WBC (Bld) 0.500 % 0.0-0.9 [facility] Comment on above: IG% - Immature Granu locytes (promyelocytes, myelocytes and metamyelocytes) > 1% indicates that a LEFT SHIFT is Present. MCH (RBC) [Entitic mass] 31.6 pg 27.0-32.0 [facility] Nucleated RBC/100 WBC (Bld) [Ratio] 0 % 0-5 [facility] MCHC Auto (RBC) [Mass/Vol]Or dered By: Dr. Patel on 06-17-2022 MCHC (RBC) [Mass/Vol] 34.9 g/dL 32-36 [facility] No Panel InformationOrdered By: Dr. Patel on 06-17-2022 Estimated Creatinine Clearance Calc 152.42 ml/min [facility] Estimated GFR (MDRD) Amer 144 mL/min >60 [facility] Comment on above: GFR Calc Estimated GFR (MDRD) Non-Af Amer 119 mL/min >60 [facility] Comment on above: Non- GFR Calc Ethyl Alcohol Level 334.0 mg/dL [facility] Comment on above: Critical Result(s) C alled at: 09:34:32 06/17/2022 by: Tonya Marrero. Results read back by same.The serum:whole blood ethanol ratio is approximately 1.14and varies slightly with hematocrit. Medical Alcohol reference interval and critical value innon-tolerant individuals; 50 - 100 Impairment 100 Intoxication 100 - 250 Severe Poisoning 250 - 400 Deep/possible fatal coma MDMA (Ecstasy) Screen Negative < 500 ng/mL [facility] Urine Barbiturates Screen Negative < 200 ng/mL [facility] Urine Drug Screen Comment [facility] Comment on above: CONFIRMATORY TESTING FOR ALL [...] Urine Methadone Screen Negative < 300 ng/mL [facility] Platelets bldOrdered By: Dr. Patel on 06-17-2022 Platelets (Bld) [#/Vol] 192 10*3/uL 150-450 [facility] Serum or plasma acetone bucky urement (mass/volume)Ordered By: Dr. Patel on 06-17-2022 Acetone [Mass/Vol] Negative NEG [facility] Serum or plasma albumin bucky urement (mass/volume)Ordered By: Dr. Patel on 06-17-2022 Albumin [Mass/Vol] 3.9 g/dL 3.2-5.0 [facility] Serum or plasma albumin/glob ulin mass ratioOrdered By: Dr. Patel on 06-17-2022 Albumin/Globulin [Mass ratio] 1.0 {ratio} 0.9-2.4 [facility] Serum or plasma calcium bucky urement (mass/volume)Ordered By: Dr. Patel on 06-17-2022 Calcium [Mass/Vol] 8.7 mg/dL 8.5-10.1 [facility] Serum or plasma creatinine m easurement (mass/volume)Ordered By: Dr. Patel on 06-17-2022 Creatinine [Mass/Vol] 0.83 mg/dL 0.70-1.30 [facility] Comment on above: The validity of the calculated GFR & GFRAA in patients over 70 years has not been determined. Clinical correlation is essential. Serum or plasma urea nitroge n measurement (mass/volume)Ordered By: Dr. Patel on 06-17-2022 Urea nitrogen [Mass/Vol] 6 mg/dL 7-18 [facility] Thin prep Papanicolaou smear with manual screeningOrdered By: Dr. Patel on 06-17-2022 Thin prep Papanicolaou smear with manual screening 81 U/L 15-37 [facility] Thin prep Papanicolaou smear with manual screening 8 5-15 [facility] Urine phencyclidine (PCP) de tectionOrdered By: Dr. Patel on 06-17-2022 Phencyclidine Ql (U) Negative < 25 ng/mL [facility] Whole blood hemoglobin A1c/t otal hemoglobin ratio (mass fraction)Ordered By: Dr. Murphy on 06-17-2022 HbA1c (Bld) [Mass fraction] 8.2 % 3.8-5.6 [facility] Comment on above: Normal < 5.7 % [...] diabetes with complication advised to follow-up with intelligence intern Moderate alcohol intake B12 folic acid thiamine given psychological evaluation Anxiety with depression given Ativan and Wellbutrin Palpitation increase Toprol to 50 mg a day Hyperlipidemia Lipitor Proteinuria ramipril Diabetes endocrine follow-up Obesity diet and exercise I spent 15 minutes obtaining and discussing depression screening using pHq-2 questions with patient documented in the chart treatment plan discussI spent 15 minutes [id number] major depressive disorder Advice= Serum cortisol B12 [...] Atorvastatin C (more content not included)... Normal [place] Tobacco Screening.on 023 Adult depression screening assessment Yes [facility] Work Phone: Fall risk assessment a) No falls within the last year [facility] Work Phone: Tobacco use status CP b) No [facility] Work Phone: Absolute lymphocyte countOrd ered By: Dr. Nice on 06-01-2022 Lymphocytes Auto (Unsp spec) [#/Vol] 1.13 10*3/uL 0.83-4.51 [facility] Basophil percentageOrdered B y: Dr. Nice on 06-01-2022 Basophils/100 WBC (Bld) 0.3 % 0-1 [facility] Bilirubin [Mass/Vol] 1.00 mg/dL 0.20-1.[address] [facility] Comment on above: For patients on eltr ombopag therapy, use of Dimension Lena TBIL is not recommended. Chloride [Moles/Vol] 100 mmol/L 98-[address] [facility] Eosinophils/100 WBC (Bld) 1.4 % 0-5 [facility] Glucose [Mass/Vol] 104 mg/dL 74-106 [facility] Comment on above: Fasting Glucose resu lt from 100 to 125 mg/dL suggests IMPAIRED HOMEOSTASIS per A.D.A. criteria. Neutrophils (Bld) [#/Vol] 7.4 10*3/uL 2.0-7.7 [facility] Neutrophils/100 WBC (Bld) 75.6 % 47-70 [facility] Potassium [Moles/Vol] 3.4 mmol/L 3.5-5.1 [facility] Protein [Mass/Vol] 7.1 g/dL 6.4-8.2 [facility] Sodium [Moles/Vol] 139 mmol/L 136-145 [facility] WBC (Bld) [#/Vol] 9.8 10*3/uL 4.4-11.0 [facility] Blood erythrocytes count (nu mber/volume)Ordered By: Dr. Nice on 06-01-2022 RBC (Bld) [#/Vol] 4.84 10*6/uL 4.6-6.2 [facility] Blood hemoglobin measurement (mass/volume)Ordered By: Dr. Nice on 06-01-2022 Hemoglobin (Bld) [Mass/Vol] 15.5 g/dL 13.0-16.5 [facility] Blood lymphocytes/100 leukoc ytesOrdered By: Dr. Nice on 06-01-2022 Lymphocytes/100 WBC (Bld) 11.5 % 19-41 [facility] Blood monocytes/100 leukocyt esOrdered By: Dr. Nice on 06-01-2022 Monocytes/100 WBC (Bld) 10.9 % 0-10 [facility] Blood platelet mean volumeOr dered By: Dr. Nice on 06-01-2022 Platelet mean volume (Bld) [Entitic vol] 9.3 fL 6.2-12.0 [facility] Determination of erythrocyte mean corpuscular volume (MCV)Ordered By: Dr. Nice on 06-01-2022 MCV (RBC) [Entitic vol] 89.5 fL 80-94 [facility] Glucose Glucometer (BldC) [M ass/Vol]Ordered By: Dr. Nice on 06-01-2022 Glucose [Mass/Vol] 74 mg/dL 74-106 [facility] Comment on above: MANAGEMENT OF PATIEN T CARE PER NURSING PROTOCOL Hematocrit Auto (Bld) [Volum e fraction]Ordered By: Dr. Nice on 06-01-2022 Hematocrit (Bld) [Volume fraction] 43.3 % 40-54 [facility] Laboratory - Chemistry and C hemistry - challengeOrdered By: Dr. Nice on 06-01-2022 ALP [Catalytic activity/Vol] 93 U/L 45-117 [facility] ALT [Catalytic activity/Vol] 74 U/L 16-61 [facility] CO2 [Moles/Vol] 28.0 mmol/L 21.0-32.0 [facility] Globulin (S) [Mass/Vol] 3.6 g/dL 2.2-4.2 [facility] Urea nitrogen/Creatinine [Mass ratio] 9.4 mg/mg 10-20 [facility] Laboratory - Hematology and Cell countsOrdered By: Dr. Nice on 06-01-2022 Erythrocyte distribution width (RBC) [Entitic vol] 42.3 fL 35.1-43.9 [facility] Erythrocyte distribution width (RBC) [Ratio] 12.9 % 11.6-14.6 [facility] Immature granulocytes/100 WBC (Bld) 0.300 % 0.0-0.9 [facility] Comment on above: IG% - Immature Granu locytes (promyelocytes, myelocytes and metamyelocytes) > 1% indicates that a LEFT SHIFT is Present. MCH (RBC) [Entitic mass] 32.0 pg 27.0-32.0 [facility] Nucleated RBC/100 WBC (Bld) [Ratio] 0 % 0-5 [facility] MCHC Auto (RBC) [Mass/Vol]Or dered By: Dr. Nice on 06-01-2022 MCHC (RBC) [Mass/Vol] 35.8 g/dL 32-36 [facility] No Panel InformationOrdered By: Dr. Nice on 06-01-2022 Estimated Creatinine Clearance Calc 148.83 ml/min [facility] Estimated GFR (MDRD) Amer 141 mL/min >60 [facility] Comment on above: GFR Calc Estimated GFR (MDRD) Non-Af Amer 116 mL/min >60 [facility] Comment on above: Non- GFR Calc Platelets bldOrdered By: Dr. Nice on 06-01-2022 Platelets (Bld) [#/Vol] 169 10*3/uL 150-450 [facility] Serum or plasma albumin bucky urement (mass/volume)Ordered By: Dr. Nice on 06-01-2022 Albumin [Mass/Vol] 3.5 g/dL 3.2-5.0 [facility] Serum or plasma albumin/glob ulin mass ratioOrdered By: Dr. Nice on 06-01-2022 Albumin/Globulin [Mass ratio] 1.0 {ratio} 0.9-2.4 [facility] Serum or plasma calcium bucky urement (mass/volume)Ordered By: Dr. Nice on 06-01-2022 Calcium [Mass/Vol] 9.2 mg/dL 8.5-10.1 [facility] Serum or plasma creatinine m easurement (mass/volume)Ordered By: Dr. Nice on 06-01-2022 Creatinine [Mass/Vol] 0.85 mg/dL 0.70-1.30 [facility] Comment on above: The validity of the calculated GFR & GFRAA in patients over 70 years has not been determined. Clinical correlation is essential. Serum or plasma urea nitroge n measurement (mass/volume)Ordered By: Dr. Nice on 06-01-2022 Urea nitrogen [Mass/Vol] 8 mg/dL 7-18 [facility] Thin prep Papanicolaou smear with manual screeningOrdered By: Dr. Nice on 06-01-2022 Thin prep Papanicolaou smear with manual screening 103 U/L 15-37 [facility] Thin prep Papanicolaou smear with manual screening 11 5-15 [facility] Laboratory - Hematology and Cell countson 05-29-2022 HbA1c (Bld) [Mass fraction] 8.0 % [facility] Absolute lymphocyte countOrd ered By: ED PROVIDER on 05-03-2022 Lymphocytes Auto (Unsp spec) [#/Vol] 1.64 10*3/uL 0.83-4.51 [facility] Basophil percentageOrdered B y: Dr. Corrales on 05-03-2022 Basophil percentage 0-5 SEEN /hpf 0-5 [facility] Basophil percentageOrdered B y: ED PROVIDER on 05-03-2022 Basophils/100 WBC (Bld) 1.0 % 0-1 [facility] Bilirubin [Mass/Vol] 0.60 mg/dL 0.20-1.[address] [facility] Comment on above: For patients on eltr ombopag therapy, use of Dimension Lena TBIL is not recommended. Chloride [Moles/Vol] 105 mmol/L 98-[address] [facility] Eosinophils/100 WBC (Bld) 1.3 % 0-5 [facility] Glucose [Mass/Vol] 103 mg/dL 74-106 [facility] Comment on above: Fasting Glucose resu lt from 100 to 125 mg/dL suggests IMPAIRED HOMEOSTASIS per A.D.A. criteria. Neutrophils (Bld) [#/Vol] 3.4 10*3/uL 2.0-7.7 [facility] Neutrophils/100 WBC (Bld) 55.9 % 47-70 [facility] Potassium [Moles/Vol] 3.9 mmol/L 3.5-5.1 [facility] Comment on above: Slight Hemolysis, Re sult may be falsely increased. Protein [Mass/Vol] 8.0 g/dL 6.4-8.2 [facility] Sodium [Moles/Vol] 141 mmol/L 136-145 [facility] WBC (Bld) [#/Vol] 6.1 10*3/uL 4.4-11.0 [facility] Bilirubin Test strip Ql (U)O rdered By: Dr. Corrales on 05-03-2022 Bilirubin Ql (U) Negative Negative [facility] Blood erythrocytes count (nu mber/volume)Ordered By: ED PROVIDER on 05-03-2022 RBC (Bld) [#/Vol] 5.18 10*6/uL 4.6-6.2 [facility] Blood hemoglobin measurement (mass/volume)Ordered By: ED PROVIDER on 05-03-2022 Hemoglobin (Bld) [Mass/Vol] 15.7 g/dL 13.0-16.5 [facility] Blood lymphocytes/100 leukoc ytesOrdered By: ED PROVIDER on 05-03-2022 Lymphocytes/100 WBC (Bld) 27.1 % 19-41 [facility] Blood monocytes/100 leukocyt esOrdered By: ED PROVIDER on 05-03-2022 Monocytes/100 WBC (Bld) 14.2 % 0-10 [facility] Blood platelet adequacy dete ction by light microscopyOrdered By: ED PROVIDER on 05-03-2022 Platelets LM Ql (Bld) ADEQUATE ADEQ [facility] Blood platelet mean volumeOr dered By: ED PROVIDER on 05-03-2022 Platelet mean volume (Bld) [Entitic vol] 10.7 fL 6.2-12.0 [facility] Determination of erythrocyte mean corpuscular volume (MCV)Ordered By: ED PROVIDER on 05-03-2022 MCV (RBC) [Entitic vol] 90.5 fL 80-94 [facility] Glucose Glucometer (BldC) [M ass/Vol]Ordered By: Dr. Corrales on 05-03-2022 Glucose [Mass/Vol] 114 mg/dL 74-106 [facility] Comment on above: MANAGEMENT OF PATIEN T CARE PER NURSING PROTOCOL Hematocrit Auto (Bld) [Volum e fraction]Ordered By: ED PROVIDER on 05-03-2022 Hematocrit (Bld) [Volume fraction] 46.9 % 40-54 [facility] Ketones Test strip Ql (U)Ord ered By: Dr. Corrales on 05-03-2022 Ketones Ql (U) 15 mg/dl Negative [facility] Laboratory - Chemistry and C hemistry - challengeOrdered By: ED PROVIDER on 05-03-2022 ALP [Catalytic activity/Vol] 97 U/L 45-117 [facility] ALT [Catalytic activity/Vol] 108 U/L 16-61 [facility] CO2 [Moles/Vol] 16.0 mmol/L 21.0-32.0 [facility] Globulin (S) [Mass/Vol] 3.7 g/dL 2.2-4.2 [facility] Urea nitrogen/Creatinine [Mass ratio] 8.5 mg/mg 10-20 [facility] Laboratory - Chemistry and C hemistry - challengeOrdered By: Dr. Corrales on 05-03-2022 CK [Catalytic activity/Vol] 325 U/L 39-308 [facility] Comment on above: Moderate Hemolysis, Result may be falsely increased. Laboratory - Hematology and Cell countsOrdered By: ED PROVIDER on 05-03-2022 Erythrocyte distribution width (RBC) [Entitic vol] 42.0 fL 35.1-43.9 [facility] Erythrocyte distribution width (RBC) [Ratio] 12.7 % 11.6-14.6 [facility] Immature granulocytes/100 WBC (Bld) 0.500 % 0.0-0.9 [facility] Comment on above: IG% - Immature Granu locytes (promyelocytes, myelocytes and metamyelocytes) > 1% indicates that a LEFT SHIFT is Present. MCH (RBC) [Entitic mass] 30.3 pg 27.0-32.0 [facility] Nucleated RBC/100 WBC (Bld) [Ratio] 0 % 0-5 [facility] MCHC Auto (RBC) [Mass/Vol]Or dered By: ED PROVIDER on 05-03-2022 MCHC (RBC) [Mass/Vol] 33.5 g/dL 32-36 [facility] Mucus LM Ql (Urine sed)Order ed By: Dr. Corrales on 05-03-2022 Mucus Ql (Urine sed) 0 SEEN /hpf [facility] Nitrite Test strip Ql (U)Ord ered By: Dr. Corrales on 05-03-2022 Nitrite Ql (U) Negative Negative [facility] No Panel InformationOrdered By: ED PROVIDER on 05-03-2022 Estimated Creatinine Clearance Calc 109.08 ml/min [facility] Estimated GFR (MDRD) Amer 97 mL/min >60 [facility] Comment on above: GFR Calc Estimated GFR (MDRD) Non-Af Amer 80 mL/min >60 [facility] Comment on above: Non- GFR Calc No Panel InformationOrdered By: Dr. Corrales on 05-03-2022 Troponin I High Sensitivity 6 pg/mL 3.0-78.0 [facility] Comment on above: Please Note: New Sendy t Units and Gender Specific Reference Ranges. For more information see Policy Stat Procedure Lena High Sensitivity Troponin (TNIH) and attachments. Platelets bldOrdered By: ED PROVIDER on 05-03-2022 Platelets (Bld) [#/Vol] See comment 150-450 [facility] Comment on above: Please note: For thi [...] 05-03-2022 Protein Ql (U) 100 mg/dl Negative [facility] Serum or plasma albumin bucky urement (mass/volume)Ordered By: ED PROVIDER on 05-03-2022 Albumin [Mass/Vol] 4.3 g/dL 3.2-5.0 [facility] Serum or plasma albumin/glob ulin mass ratioOrdered By: ED PROVIDER on 05-03-2022 Albumin/Globulin [Mass ratio] 1.2 {ratio} 0.9-2.4 [facility] Serum or plasma calcium bucky urement (mass/volume)Ordered By: ED PROVIDER on 05-03-2022 Calcium [Mass/Vol] 9.4 mg/dL 8.5-10.1 [facility] Serum or plasma creatinine m easurement (mass/volume)Ordered By: ED PROVIDER on 05-03-2022 Creatinine [Mass/Vol] 1.17 mg/dL 0.70-1.30 [facility] Comment on above: The validity of the calculated GFR & GFRAA in patients over 70 years has not been determined. Clinical correlation is essential. Serum or plasma urea nitroge n measurement (mass/volume)Ordered By: ED PROVIDER on 05-03-2022 Urea nitrogen [Mass/Vol] 10 mg/dL 7-18 [facility] Squamous epithelial cells de tection in urine sediment by light microscopyOrdered By: Dr. Corrales on 05-03-2022 Epithelial cells.squamous LM Ql (Urine sed) 0 SEEN /hpf 0-5 [facility] Thin prep Papanicolaou smear with manual screeningOrdered By: ED PROVIDER on 05-03-2022 Thin prep Papanicolaou smear with manual screening 103 U/L 15-37 [facility] Comment on above: Slight Hemolysis, Re sult may be falsely increased. Thin prep Papanicolaou smear with manual screening 20 5-15 [facility] Urine blood detectionOrdered By: Dr. Corrales on 05-03-2022 RBC Ql (U) 50 /ul Negative [facility] RBC Ql (U) 0-5 SEEN /hpf 0-5 [facility] Urine clarityOrdered By: Dr. Corrales on 05-03-2022 Clarity (U) Clear Clear [facility] Urine color determinationOrd ered By: Dr. Corrales on 05-03-2022 Color (U) Yellow Yellow [facility] Urine glucose detectionOrder ed By: Dr. Corrales on 05-03-2022 Glucose Ql (U) 250 mg/dl Normal [facility] Urine leukocyte esterase det ection by dipstickOrdered By: Dr. Corrales on 05-03-2022 Leukocyte esterase Test strip Ql (U) Negative Negative [facility] Urine pHOrdered By: Dr. Giovany castañeda on 05-03-2022 pH (U) 7.0 [pH] 5.0 - 8.0 [facility] Urine sediment bacteria coun t by microscopy (number/high power field)Ordered By: Dr. Corrales on 05-03-2022 Bacteria LM.HPF (Urine sed) [#/Area] 0 /[HPF] None Seen [facility] Urine specific gravity measu rementOrdered By: Dr. Corrales on 05-03-2022 Specific gravity (U) [Rel density] 1.015 1.002-1.030 [facility] Urobilinogen Auto test strip Ql (U)Ordered By: Dr. Corrales on 05-03-2022 Urobilinogen Ql (U) Normal mg/dl Normal [facility] Absolute lymphocyte counton 01-29-2022 Lymphocytes Auto (Unsp spec) [#/Vol] 1.25 10*3/uL 0.83-4.51 [facility] Work Phone: Basophil percentageon 2021 Chloride [Moles/Vol] 109 mmol/L 98-[address] [facility] Work Phone: Glucose [Mass/Vol] 145 mg/dL 74-106 [facility] Work Phone: Comment on above: Fasting Glucose resu lt greater than or equal to 126 mg/dL suggests DIABETES MELLITUS per A.D.A. criteria. Potassium [Moles/Vol] 3.6 mmol/L 3.5-5.1 [facility] Work Phone: Sodium [Moles/Vol] 141 mmol/L 136-145 [facility] Work Phone: Basophils/100 WBC (Bld) 0.3 % 0-1 [facility] Work Phone: Eosinophils/100 WBC (Bld) 0.0 % 0-5 [facility] Work Phone: Neutrophils (Bld) [#/Vol] 9.1 10*3/uL 2.0-7.7 [facility] Work Phone: Neutrophils/100 WBC (Bld) 76.1 % 47-70 [facility] Work Phone: WBC (Bld) [#/Vol] 11.9 10*3/uL 4.4-11.0 [facility] Work Phone: Blood erythrocytes count (nu mber/volume)on 01-29-2022 RBC (Bld) [#/Vol] 5.10 10*6/uL 4.6-6.2 [facility] Work Phone: Blood hemoglobin measurement (mass/volume)on 01-29-2022 Hemoglobin (Bld) [Mass/Vol] 15.5 g/dL 13.0-16.5 [facility] Work Phone: Blood lymphocytes/100 leukoc yteson 01-29-2022 Lymphocytes/100 WBC (Bld) 10.5 % 19-41 [facility] Work Phone: Blood manual differential co mment interpretation (narrative result)on 01-29-2022 Manual differential comment Gabriel (Bld) [Interp] COMMENT [facility] Work Phone: Comment on above: MONOCYTOSIS. Blood monocytes/100 leukocyt eson 01-29-2022 Monocytes/100 WBC (Bld) 12.6 % 0-10 [facility] Work Phone: Blood platelet mean volumeon 01-29-2022 Platelet mean volume (Bld) [Entitic vol] 9.6 fL 6.2-12.0 [facility] Work Phone: Determination of erythrocyte mean corpuscular volume (MCV)on 01-29-2022 MCV (RBC) [Entitic vol] 89.6 fL 80-94 [facility] Work Phone: Glucose Glucometer (BldC) [M ass/Vol]on 01-29-2022 Glucose [Mass/Vol] 160 mg/dL 74-106 [facility] Work Phone: Comment on above: MANAGEMENT OF PATIEN T CARE PER NURSING PROTOCOL HCO3 (BldA) [Moles/Vol]on HCO3 (Bld) [Moles/Vol] 17 mmol/L 22-26 [facility] Work Phone: Hematocrit Auto (Bld) [Volum e fraction]on 01-29-2022 Hematocrit (Bld) [Volume fraction] 45.7 % 40-54 [facility] Work Phone: Laboratory - Chemistry and C hemistry - challengeon 01-29-2022 CO2 [Moles/Vol] 24.0 mmol/L 21.0-32.0 [facility] Work Phone: Urea nitrogen/Creatinine [Mass ratio] 17.5 mg/mg 10-20 [facility] Work Phone: CO2 [Moles/Vol] 18 mmol/L 23-33 [facility] Work Phone: Laboratory - Hematology and Cell countson 01-29-2022 Erythrocyte distribution width (RBC) [Entitic vol] 40.8 fL 35.1-43.9 [facility] Work Phone: Erythrocyte distribution width (RBC) [Ratio] 12.3 % 11.6-14.6 [facility] Work Phone: Immature granulocytes/100 WBC (Bld) 0.500 % 0.0-0.9 [facility] Work Phone: Comment on above: IG% - Immature Granu locytes (promyelocytes, myelocytes and metamyelocytes) > 1% indicates that a LEFT SHIFT is Present. MCH (RBC) [Entitic mass] 30.4 pg 27.0-32.0 [facility] Work Phone: Nucleated RBC/100 WBC (Bld) [Ratio] 0 % 0-5 [facility] Work Phone: MCHC Auto (RBC) [Mass/Vol]on 01-29-2022 MCHC (RBC) [Mass/Vol] 33.9 g/dL 32-36 [facility] Work Phone: No Panel Informationon 01-29 Estimated Creatinine Clearance Calc 144.28 ml/min [facility] Work Phone: Estimated GFR (MDRD) Amer 130 mL/min >60 [facility] Work Phone: Comment on above: GFR Calc Estimated GFR (MDRD) Non-Af Amer 107 mL/min >60 [facility] Work Phone: Comment on above: Non- GFR Calc Bed Mix Venous Bld PCO2 at Pat Temp 31.0 mmHg 41-51 [facility] Work Phone: Blood Gas Specimen Type BRITTNY [facility] Work Phone: Venous Blood Base Excess -9 mmol/L -1.0-3.5 [facility] Work Phone: PO2 venouson 01-29-2022 Oxygen (BldV) [Partial pressure] 54 mm[Hg] 25-40 [facility] Work Phone: Platelets bldon 01-29-2022 Platelets (Bld) [#/Vol] 256 10*3/uL 150-450 [facility] Work Phone: Review by pathologiston Pathologist review Gabriel (Unsp spec) [Interp] September [facility] Work Phone: Pathologist review Gabriel (Unsp spec) [Interp] Reviewed [facility] Work Phone: Comment on above: Previous reported re sult: Jennifer gray Edited by: FAITH on 01/30/22:1545Neutrophilic leukocytosis.Clinical correlation necessary.Sim Hassan M.D. 01/30/22 AMENDED REPORT 01/30/22 154 PATH REV previously reported as: September isaac Serum or plasma acetone bucky urement (mass/volume)on 01-29-2022 Acetone [Mass/Vol] MODERATE NEG [facility] Work Phone: Serum or plasma calcium bucky urement (mass/volume)on 01-29-2022 Calcium [Mass/Vol] 8.7 mg/dL 8.5-10.1 [facility] Work Phone: Serum or plasma creatinine m easurement (mass/volume)on 01-29-2022 Creatinine [Mass/Vol] 0.91 mg/dL 0.70-1.30 [facility] Work Phone: Comment on above: The validity of the calculated GFR & GFRAA in patients over 70 years has not been determined. Clinical correlation is essential. Serum or plasma urea nitroge n measurement (mass/volume)on 01-29-2022 Urea nitrogen [Mass/Vol] 16 mg/dL 7-18 [facility] Work Phone: Thin prep Papanicolaou smear with manual screeningon 01-29-2022 Thin prep Papanicolaou smear with manual screening 8 5-15 [facility] Work Phone: Vital signson 01-29-2022 Oxygen saturation in Blood 86 % 50-70 [facility] Work Phone: pH measurementon 01-29-2022 pH (Unsp spec) 7.34 [pH] 7.32-7.42 [facility] Work Phone: Laboratory - Hematology and Cell countson 11-14-2021 HbA1c (Bld) [Mass fraction] 9.3 % [facility] Work Phone: Absolute lymphocyte counton 09-27-2021 Lymphocytes Auto (Unsp spec) [#/Vol] 1.25 10*3/uL 0.83-4.51 [facility] Work Phone: Basophil percentageon 2021 Basophils/100 WBC (Bld) 0.1 % 0-1 [facility] Work Phone: Chloride [Moles/Vol] 108 mmol/L 98-[address] [facility] Work Phone: Eosinophils/100 WBC (Bld) 0.1 % 0-5 [facility] Work Phone: Glucose [Mass/Vol] 137 mg/dL 74-106 [facility] Work Phone: [phone] Comment on above: Fasting Glucose resu lt greater than or equal to 126 mg/dL suggests DIABETES MELLITUS per A.D.A. criteria. Neutrophils (Bld) [#/Vol] 7.3 10*3/uL 2.0-7.7 [facility] Work Phone: [phone] Neutrophils/100 WBC (Bld) 76.6 % 47-70 [facility] Work Phone: Potassium [Moles/Vol] 3.4 mmol/L 3.5-5.1 [facility] Work Phone: Sodium [Moles/Vol] 139 mmol/L 136-145 [facility] Work Phone: WBC (Bld) [#/Vol] 9.5 10*3/uL 4.4-11.0 [facility] Work Phone: Blood erythrocytes count (nu mber/volume)on 09-27-2021 RBC (Bld) [#/Vol] 4.53 10*6/uL 4.6-6.2 [facility] Work Phone: Blood hemoglobin measurement (mass/volume)on 09-27-2021 Hemoglobin (Bld) [Mass/Vol] 13.9 g/dL 13.0-16.5 [facility] Work Phone: Blood lymphocytes/100 leukoc yteson 09-27-2021 Lymphocytes/100 WBC (Bld) 13.2 % 19-41 [facility] Work Phone: Blood monocytes/100 leukocyt eson 09-27-2021 Monocytes/100 WBC (Bld) 9.7 % 0-10 [facility] Work Phone: Blood platelet mean volumeon 09-27-2021 Platelet mean volume (Bld) [Entitic vol] 9.4 fL 6.2-12.0 [facility] Work Phone: Determination of erythrocyte mean corpuscular volume (MCV)on 09-27-2021 MCV (RBC) [Entitic vol] 85.9 fL 80-94 [facility] Work Phone: Glucose Glucometer (BldC) [M ass/Vol]on 09-27-2021 Glucose [Mass/Vol] 135 mg/dL 74-106 [facility] Work Phone: Comment on above: MANAGEMENT OF PATIEN T CARE PER NURSING PROTOCOL Hematocrit Auto (Bld) [Volum e fraction]on 09-27-2021 Hematocrit (Bld) [Volume fraction] 38.9 % 40-54 [facility] Work Phone: Laboratory - Chemistry and C hemistry - challengeon 09-27-2021 CO2 [Moles/Vol] 22.0 mmol/L 21.0-32.0 [facility] Work Phone: Urea nitrogen/Creatinine [Mass ratio] 9.0 mg/mg 10-20 [facility] Work Phone: Laboratory - Hematology and Cell countson 09-27-2021 Erythrocyte distribution width (RBC) [Entitic vol] 39.5 fL 35.1-43.9 [facility] Work Phone: Erythrocyte distribution width (RBC) [Ratio] 12.6 % 11.6-14.6 [facility] Work Phone: Immature granulocytes/100 WBC (Bld) 0.300 % 0.0-0.9 [facility] Work Phone: Comment on above: IG% - Immature Granu locytes (promyelocytes, myelocytes and metamyelocytes) > 1% indicates that a LEFT SHIFT is Present. MCH (RBC) [Entitic mass] 30.7 pg 27.0-32.0 [facility] Work Phone: Nucleated RBC/100 WBC (Bld) [Ratio] 0 % 0-5 [facility] Work Phone: MCHC Auto (RBC) [Mass/Vol]on 09-27-2021 MCHC (RBC) [Mass/Vol] 35.7 g/dL 32-36 [facility] Work Phone: No Panel Informationon 09-27 Estimated Creatinine Clearance Calc 147.52 ml/min [facility] Work Phone: Estimated GFR (MDRD) Amer 133 mL/min >60 [facility] Work Phone: Comment on above: GFR Calc Estimated GFR (MDRD) Non-Af Amer 110 mL/min >60 [facility] Work Phone: Comment on above: Non- GFR Calc Platelets bldon 09-27-2021 Platelets (Bld) [#/Vol] 150 10*3/uL 150-450 [facility] Work Phone: Serum or plasma calcium bucky urement (mass/volume)on 09-27-2021 Calcium [Mass/Vol] 8.6 mg/dL 8.5-10.1 [facility] Work Phone: Serum or plasma creatinine m easurement (mass/volume)on 09-27-2021 Creatinine [Mass/Vol] 0.89 mg/dL 0.70-1.30 [facility] Work Phone: Comment on above: The validity of the calculated GFR & GFRAA in patients over 70 years has not been determined. Clinical correlation is essential. Serum or plasma urea nitroge n measurement (mass/volume)on 09-27-2021 Urea nitrogen [Mass/Vol] 8 mg/dL 7-18 [facility] Work Phone: Thin prep Papanicolaou smear with manual screeningon 09-27-2021 Thin prep Papanicolaou smear with manual screening 9 5-15 [facility] Work Phone: Basophil percentageon 2021 Bilirubin [Mass/Vol] 0.70 mg/dL 0.20-1.[address] [facility] Work Phone: Comment on above: For patients on eltr ombopag therapy, use of Dimension Lena TBIL is not recommended. Protein [Mass/Vol] 6.8 g/dL 6.4-8.2 [facility] Work Phone: Laboratory - Chemistry and C hemistry - challengeon 09-26-2021 ALP [Catalytic activity/Vol] 80 U/L 45-117 [facility] Work Phone: ALT [Catalytic activity/Vol] 30 U/L 16-61 [facility] Work Phone: Globulin (S) [Mass/Vol] 3.2 g/dL 2.2-4.2 [facility] Work Phone: Review by pathologiston Pathologist review Gabriel (Unsp spec) [Interp] Reviewed [facility] Work Phone: Comment on above: Previous reported re sult: Jennifer gray Edited by: FAITH on 09/27/21:1033Neutrophilic leukocytosis.Clinical correlation necessary.Sim Hassan M.D. 09/27/21 AMENDED REPORT 09/27/21 1033 PATH REV previously reported as: Jennifer gray Serum or plasma albumin bucky urement (mass/volume)on 09-26-2021 Albumin [Mass/Vol] 3.6 g/dL 3.2-5.0 [facility] Work Phone: Serum or plasma albumin/glob ulin mass ratioon 09-26-2021 Albumin/Globulin [Mass ratio] 1.1 {ratio} 0.9-2.4 [facility] Work Phone: Thin prep Papanicolaou smear with manual screeningon 09-26-2021 Thin prep Papanicolaou smear with manual screening 18 U/L 15-37 [facility] Work Phone: Whole blood hemoglobin A1c/t otal hemoglobin ratio (mass fraction)on 09-26-2021 HbA1c (Bld) [Mass fraction] 9.8 % 3.8-5.6 [facility] Work Phone: Comment on above: Normal < 5.7 % Predi abetic 5.7 - 6.4 % Diabetic >or= 6.5 % Please note range changes. Absolute lymphocyte counton 09-25-2021 Lymphocytes Auto (Unsp spec) [#/Vol] 1.17 10*3/uL 0.83-4.51 [facility] Work Phone: Basophil percentageon 2021 Basophil percentage 0 SEEN /hpf [facility] Work Phone: Chloride [Moles/Vol] 98 mmol/L 98-[address] [facility] Work Phone: Glucose [Mass/Vol] 477 mg/dL 74-106 [facility] Work Phone: Comment on above: Critical Result(s) C alled at: 21:31:58 09/25/2021 by: Ana Paula Grant. Results read back by same.Glucose result greater than or equal to 200 mg/dLsuggests DIABETES MELLITUS per A.D.A. criteria. Potassium [Moles/Vol] 5.5 mmol/L 3.5-5.1 [facility] Work Phone: Sodium [Moles/Vol] 136 mmol/L 136-145 [facility] Work Phone: Basophil percentage 8.2 mg/dL 2.5-4.9 [facility] Work Phone: Basophils/100 WBC (Bld) 0.5 % 0-1 [facility] Work Phone: Bilirubin [Mass/Vol] 0.80 mg/dL 0.20-1.[address] [facility] Work Phone: Comment on above: For patients on eltr ombopag therapy, use of Dimension Lena TBIL is not recommended. Eosinophils/100 WBC (Bld) 0.1 % 0-5 [facility] Work Phone: Neutrophils (Bld) [#/Vol] 26.2 10*3/uL 2.0-7.7 [facility] Work Phone: Neutrophils/100 WBC (Bld) 85.9 % 47-70 [facility] Work Phone: Protein [Mass/Vol] 8.6 g/dL 6.4-8.2 [facility] Work Phone: WBC (Bld) [#/Vol] 30.5 10*3/uL 4.4-11.0 [facility] Work Phone: Comment on above: CRITICAL VALUE VERIF IED. CALLED [facility] JANESSA JUNG09/25/21 [facility]RESULTS READ BACK BY SAME . Bilirubin Test strip Ql (U)o n 09-25-2021 Bilirubin Ql (U) Negative Negative [facility] Work Phone: [phone] Blood erythrocytes count (nu mber/volume)on 09-25-2021 RBC (Bld) [#/Vol] 5.42 10*6/uL 4.6-6.2 [facility] Work Phone: [phone] Blood hemoglobin measurement (mass/volume)on 09-25-2021 Hemoglobin (Bld) [Mass/Vol] 16.6 g/dL 13.0-16.5 [facility] Work Phone: Blood lymphocytes/100 leukoc yteson 09-25-2021 Lymphocytes/100 WBC (Bld) 3.8 % 19-41 [facility] Work Phone: Blood manual differential co mment interpretation (narrative result)on 09-25-2021 Manual differential comment Gabriel (Bld) [Interp] See comment [facility] Work Phone: Comment on above: MONOCYTOSIS NOTEDNEU TROPHILIA NOTED Blood monocytes/100 leukocyt eson 09-25-2021 Monocytes/100 WBC (Bld) 8.6 % 0-10 [facility] Work Phone: Blood platelet adequacy dete ction by light microscopyon 09-25-2021 Platelets LM Ql (Bld) ADEQUATE ADEQ [facility] Work Phone: Blood platelet mean volumeon 09-25-2021 Platelet mean volume (Bld) [Entitic vol] 10.2 fL 6.2-12.0 [facility] Work Phone: Determination of erythrocyte mean corpuscular volume (MCV)on 09-25-2021 MCV (RBC) [Entitic vol] 92.1 fL 80-94 [facility] Work Phone: Direct bilirubinon 2 Bilirubin.direct [Mass/Vol] 0.15 mg/dL 0.00-0.30 [facility] Work Phone: Glucose Glucometer (BldC) [M ass/Vol]on 09-25-2021 Glucose [Mass/Vol] mg/dL 74-106 [facility] Work Phone: Comment on above: Dr Christina BOJORQUEZ OF PATIENT CARE PER NURSING PROTOCOL HCO3 (BldA) [Moles/Vol]on HCO3 (Bld) [Moles/Vol] 5 mmol/L 22-26 [facility] Work Phone: Hematocrit Auto (Bld) [Volum e fraction]on 09-25-2021 Hematocrit (Bld) [Volume fraction] 49.9 % 40-54 [facility] Work Phone: Ketones Test strip Ql (U)on 09-25-2021 Ketones Ql (U) 150 mg/dl Negative [facility] Work Phone: Comment on above: CRITICAL VALUE *HCRI TICAL VALUE VERIFIED. CALLED TO [id number] Ana Paula Field.RESULTS READ BACK BY SAME . Laboratory - Chemistry and C hemistry - challengeon 09-25-2021 CO2 [Moles/Vol] 7.0 mmol/L 21.0-32.0 [facility] Work Phone: Comment on above: Critical Result(s) C alled at: 21:31:39 09/25/2021 by: Ana Paula Grant. Results read back by same. Urea nitrogen/Creatinine [Mass ratio] 15.1 mg/mg 10-20 [facility] Work Phone: CO2 [Moles/Vol] 5 mmol/L 23-33 [facility] Work Phone: ALP [Catalytic activity/Vol] 117 U/L 45-117 [facility] Work Phone: ALT [Catalytic activity/Vol] 38 U/L 16-61 [facility] Work Phone: Globulin (S) [Mass/Vol] 3.9 g/dL 2.2-4.2 [facility] Work Phone: Magnesium [Mass/Vol] 2.6 mg/dL 1.6-2.[address] [facility] Work Phone: Laboratory - Hematology and Cell countson 09-25-2021 Erythrocyte distribution width (RBC) [Entitic vol] 41.3 fL 35.1-43.9 [facility] Work Phone: Erythrocyte distribution width (RBC) [Ratio] 12.2 % 11.6-14.6 [facility] Work Phone: Immature granulocytes/100 WBC (Bld) 1.100 % 0.0-0.9 [facility] Work Phone: Comment on above: IG% - Immature Granu locytes (promyelocytes, myelocytes and metamyelocytes) > 1% indicates that a LEFT SHIFT is Present. MCH (RBC) [Entitic mass] 30.6 pg 27.0-32.0 [facility] Work Phone: Nucleated RBC/100 WBC (Bld) [Ratio] 0 % 0-5 [facility] Work Phone: MCHC Auto (RBC) [Mass/Vol]on 09-25-2021 MCHC (RBC) [Mass/Vol] 33.3 g/dL 32-36 [facility] Work Phone: Mucus LM Ql (Urine sed)on Mucus Ql (Urine sed) 0 SEEN /hpf [facility] Work Phone: Nitrite Test strip Ql (U)on 09-25-2021 Nitrite Ql (U) Negative Negative [facility] Work Phone: No Panel Informationon 09-25 Respiratory Panel (PCR) [facility] Work Phone: Estimated Creatinine Clearance Calc 68.38 ml/min [facility] Work Phone: Estimated GFR (MDRD) Amer 55 mL/min >60 [facility] Work Phone: Comment on above: GFR Calc Estimated GFR (MDRD) Non-Af Amer 46 mL/min >60 [facility] Work Phone: Comment on above: Non- GFR Calc Bed Mix Venous Bld PCO2 at Pat Temp 20.8 mmHg 41-51 [facility] Work Phone: Bld Gas Crit Called To/Read Back By Yes [facility] Work Phone: Blood Gas Notified Time 18:50:44 [facility] Work Phone: Blood Gas Notified Whom [facility] Work Phone: Blood Gas Specimen Type BRITTNY [facility] Work Phone: Oxygen Delivery Device Room Air [facility] Work Phone: Venous Blood Base Excess -27 mmol/L -1.0-3.5 [facility] Work Phone: PO2 venouson 09-25-2021 Oxygen (BldV) [Partial pressure] 50 mm[Hg] 25-40 [facility] Work Phone: Platelets bldon 09-25-2021 Platelets (Bld) [#/Vol] 334 10*3/uL 150-450 [facility] Work Phone: Protein Test strip Ql (U)on 09-25-2021 Protein Ql (U) 30 mg/dl Negative [facility] Work Phone: RBC morphologyon 09-25-2021 RBC morphology finding Nom (Bld) NORM C+C NORMAL NORM C&C [facility] Work Phone: Review by pathologiston Pathologist review Gabriel (Unsp spec) [Interp] May foll [facility] Work Phone: Serum or plasma acetone bucky urement (mass/volume)on 09-25-2021 Acetone [Mass/Vol] LARGE NEG [facility] Work Phone: Serum or plasma albumin bucky urement (mass/volume)on 09-25-2021 Albumin [Mass/Vol] 4.7 g/dL 3.2-5.0 [facility] Work Phone: Serum or plasma calcium bucky urement (mass/volume)on 09-25-2021 Calcium [Mass/Vol] 8.5 mg/dL 8.5-10.1 [facility] Work Phone: Serum or plasma creatinine m easurement (mass/volume)on 09-25-2021 Creatinine [Mass/Vol] 1.92 mg/dL 0.70-1.30 [facility] Work Phone: Comment on above: The validity of the calculated GFR & GFRAA in patients over 70 years has not been determined. Clinical correlation is essential. Serum or plasma urea nitroge n measurement (mass/volume)on 09-25-2021 Urea nitrogen [Mass/Vol] 29 mg/dL 7-18 [facility] Work Phone: Squamous epithelial cells de tection in urine sediment by light microscopyon 09-25-2021 Epithelial cells.squamous LM Ql (Urine sed) 0 SEEN /hpf [facility] Work Phone: Thin prep Papanicolaou smear with manual screeningon 09-25-2021 Thin prep Papanicolaou smear with manual screening 31 5-15 [facility] Work Phone: Thin prep Papanicolaou smear with manual screening 23 U/L 15-37 [facility] Work Phone: Urine blood detectionon 05-0 RBC Ql (U) 50 /ul Negative [facility] Work Phone: RBC Ql (U) 0 SEEN /hpf [facility] Work Phone: Urine clarityon 09-25-2021 Clarity (U) Clear Clear [facility] Work Phone: Urine color determinationon 09-25-2021 Color (U) Yellow Yellow [facility] Work Phone: Urine glucose detectionon Glucose Ql (U) 1000 mg/dl Normal [facility] Work Phone: Urine leukocyte esterase det ection by dipstickon 09-25-2021 Leukocyte esterase Test strip Ql (U) Negative Negative [facility] Work Phone: Urine pHon 09-25-2021 pH (U) 5.0 [pH] [facility] Work Phone: Urine sediment bacteria coun t by microscopy (number/high power field)on 09-25-2021 Bacteria LM.HPF (Urine sed) [#/Area] 0 /[HPF] None Seen [facility] Work Phone: Urine specific gravity measu rementon 09-25-2021 Specific gravity (U) [Rel density] 1.025 [facility] Work Phone: Urobilinogen Auto test strip Ql (U)on 09-25-2021 Urobilinogen Ql (U) Normal mg/dl Normal [facility] Work Phone: Vital signson 09-25-2021 Oxygen saturation in Blood 63 % 50-70 [facility] Work Phone: pH measurementon 09-25-2021 pH (Unsp spec) 6.96 [pH] 7.32-7.42 [facility] Work Phone: Complete Blood Count + Diffe rentialon 07-26-2021 Basophils/100 WBC (Bld) 0.8 % 0.0 - 2.0 [facility] Work Phone: Erythrocyte distribution width (RBC) [Ratio] 12.3 % See Below [facility] Work Phone: Comment on above: Reference Range: 11. 5 - 14.5 Hematocrit (Bld) [Volume fraction] 51.4 % See Below [facility] Work Phone: Comment on above: Reference Range: 41. 0 - 52.0 Hemoglobin (Bld) [Mass/Vol] 17.2 g/dL See Below [facility] Work Phone: Comment on above: Reference Range: 13. 5 - 17.5 Lymphocytes/100 WBC (Bld) 23.1 % See Below [facility] Work Phone: Comment on above: Reference Range: 13. 0 - 44.0 MCHC (RBC) [Mass/Vol] 33.5 g/dL See Below [facility] Work Phone: Comment on above: Reference Range: 32. 0 - 36.0 MCV (RBC) [Entitic vol] 92 fL 80 - 100 [facility] Work Phone: Monocytes/100 WBC (Bld) 10.6 % 2.0 - 10.0 [facility] Work Phone: Neutrophils/100 WBC (Bld) 62.8 % See Below [facility] Work Phone: Comment on above: Reference Range: 40. 0 - 80.0 Platelets (Bld) [#/Vol] 289 10*3/uL 150 - 450 [facility] Work Phone: RBC (Bld) [#/Vol] 5.61 {x10E12/L} See Below [facility] Work Phone: Comment on above: Reference Range: 4.5 0 - 5.90 WBC (Bld) [#/Vol] 8.6 10*3/uL 4.4 - 11.3 [facility] Work Phone: Complete Blood Count + Differential 0.07 {x10E9/L} See Below [facility] Work Phone: Comment on above: Reference Range: 0.0 0 - 0.10 Complete Blood Count + Differential 0.17 {x10E9/L} See Below [facility] Work Phone: Comment on above: Reference Range: 0.0 0 - 0.70 Complete Blood Count + Differential 0.91 {x10E9/L} See Below [facility] Work Phone: Comment on above: Reference Range: 0.1 0 - 1.00 Complete Blood Count + Differential 1.99 {x10E9/L} See Below [facility] Work Phone: Comment on above: Reference Range: 1.2 0 - 4.80 Complete Blood Count + Differential 5.41 {x10E9/L} See Below [facility] Work Phone: Comment on above: Reference Range: 1.2 0 - 7.70 Complete Blood Count + Differential 2.0 % 0.0 - 6.0 [facility] Work Phone: Complete Blood Count + Differential 0.7 % 0.0 - 0.9 [facility] Work Phone: Comment on above: Immature Granulocyte Count (IG) includes promyelocytes, myelocytes and metamyelocytes but does not include bands. Percent differential counts (%) should be interpreted in the context of the absolute cell counts (cells/L). Complete Blood Count + Differential 0.0 {/100_WBC} 0.0-0.0 [facility] Work Phone: Hemoglobin A1Con 07-26-2021 Glucose [Mass/Vol] 235 mg/dL [facility] Work Phone: HbA1c (Bld) [Mass fraction] 9.8 % Abnormal [facility] Work Phone: Comment on above: Diagnosis of Diabete s-Adults Non-Diabetic: < or = 5.6% Increased risk for developing diabetes: 5.7-6.4% Diagnostic of diabetes: > or = 6.5%. Monitoring of Diabetes Age (y) Therapeutic Goal (%) Adults: >18 <7.0 Pediatrics: 13-18 <7.5 7-12 <8.0 0- 6 7.5-8.5 [place] [employer]. Diabetes Care 34(S1), May 2009. Laboratory - Chemistry and C hemistry - challengeon 07-26-2021 Albumin BCP dye [Mass/Vol] 4.8 g/dL 3.4 - 5.0 [facility] Internal Medicine Work Phone: Albumin Ql (U) 263.0 mg/L See Below [facility] Internal Medicine Work Phone: Comment on above: Reference Range: Not Established Albumin/Creatinine DL <= 20 mg/L (U) [Mass ratio] 263.5 {ug/mg_crt} above high threshold 0.0 - 30.0 [facility] Internal Medicine Work Phone: ALP [Catalytic activity/Vol] 121 U/L above high threshold 33 - 120 [facility] Internal Medicine Work Phone: ALT With P-5'-P [Catalytic activity/Vol] 34 U/L 10 - 52 [facility] Internal Medicine Work Phone: Comment on above: Patients treated wit h Sulfasalazine may generate falsely decreased results for ALT. Anion gap [Moles/Vol] 15 mmol/L 10 - 20 [facility] Internal Medicine Work Phone: AST With P-5'-P [Catalytic activity/Vol] 21 U/L 9 - 39 [facility] Internal Medicine Work Phone: Bilirubin [Mass/Vol] 0.5 mg/dL 0.0 - 1.2 [facility] Work Phone: Calcium [Mass/Vol] 10.6 mg/dL 8.6 - 10.6 [facility] Internal [facility] Work Phone: Chloride [Moles/Vol] 99 mmol/L 98 - 107 [facility] Work Phone: CO2 [Moles/Vol] 31 mmol/L 21 - 32 [facility] Work Phone: Creatinine (U) [Mass/Vol] 99.8 mg/dL See Below [facility] Work Phone: Comment on above: Reference Range: 20. 0 - 370.0 Creatinine [Mass/Vol] 0.89 mg/dL See Below [facility] Work Phone: Comment on above: Reference Range: 0.5 0 - 1.30 Glucose [Mass/Vol] 243 mg/dL above high threshold 74 - 99 [facility] Work Phone: Potassium [Moles/Vol] 4.3 mmol/L 3.5 - 5.3 [facility] Work Phone: Protein [Mass/Vol] 7.7 g/dL 6.4 - 8.2 [facility] Internal [facility] Work Phone: Sodium [Moles/Vol] 141 mmol/L 136 - 145 [facility] Internal Medicine Work Phone: Urea nitrogen [Mass/Vol] 15 mg/dL 6 - 23 [facility] Work Phone: Lipid Panelon 07-26-2021 Cholesterol [Mass/Vol] 242 mg/dL above hig h threshold 0 - 199 [facility] Work Phone: Comment on above: [...] dosing. Cholesterol in HDL [Mass/Vol] 56.5 mg/dL [facility] Internal Medicine Work Phone: Comment on above: . AGE VERY LOW LOW N ORMAL HIGH 0-19 Y < 35 < 40 40-45 ---- 20-24 Y ---- < 40 >45 ---- >24 Y ---- < 40 40-60 >60. Cholesterol in LDL [Mass/Vol] 148 mg/dL above high threshold 0 - 119 [employer] [facility] Internal Medicine Work Phone: Comment on above: . NEAR BORD AGE KRISTY RABLE OPTIMAL HIGH HIGH VERY HIGH 0-19 Y 0 - 109 --- 110-129 >/= 130 ---- 20-24 Y 0 - 119 --- 120-159 >/= 160 ---- >24 Y 0 - 99 100-129 130-159 160-189 >/=190. Cholesterol.total/Chol esterol in HDL [Mass ratio] 4.3 {ratio} [facility] Internal Medicine Work Phone: Comment on above: REF VALUESDESIRABLE < 3.4HIGH RISK > 5.0 Triglyceride [Mass/Vol] 186 mg/dL above high threshold 0 - 149 [employer] [facility] Internal Medicine Work Phone: Comment on above: [...] Lipid Panel 37 mg/dL 0 - 40 [facility] Work Phone: No Panel Informationon 07-26 >90 >90 [facility] Work Phone: Comment on above: CALCULATIONS OF LUIS FELIPE MATED GFR ARE PERFORMED USING THE 2020 CKD-EPI STUDY REFIT EQUATION WITHOUT THE RACE VARIABLE FOR THE IDMS-TRACEABLE CREATININE METHODS.https://jasn.asnjournals.org/content//A SN.1876718112 Office Visit (Internal Medic ine)on 07-26-2021 Follow-up [...] essential hypertension; FROY = N; Sent To: [id number]; Last Updated By: System, Mystery Scienceer; 07/26/2021 9:33:03 AM SocHx: Never smoker Tobacco Use Screening; Status:Complete; Done: 26Jul2021 Perform:Not Applicable;Ordered; For:SocHx: Never smoker; Ordered By:Dexter Daniel; URI (upper respiratory infection) Start: Amoxicillin 500 MG Oral Tablet; TAKE 1 TABLET 3 TIMES DAILY Rx By: Dexter Daniel; Dispense: 10 Days ; #:30 Tablet; Refill: 0;For: URI (upper respiratory infection); FROY = N; Sent To: [facility] #[id number]; Last Updated By: SystemBuzzwireer; 07/26/2021 9:33:04 AM Patient Discussion/Summary Healthy Lifestyle [...] 07-26-2021 TSH Qn 2.54 m[IU]/L See Below [employer] Internal Medicine Work Phone: Comment on above: Reference Range: 0.4 4 - 3.98 TSH testing is performed using different testing methodology at [facility] than at other [facility] hospitals. Direct result comparisons should only be made within the same method. Tobacco Screening.on 022 Fall risk assessment a) No falls within the last year [facility] Work Phone: Tobacco use status [facility] b) No [facility] Work Phone: Vitamin D 25-Hydroxyon 07-26 25-hydroxyvitamin D3 [Mass/Vol] 11 ng/mL Abnormal [facility] Internal Medicine Work Phone: Comment on above: .DEFICIENCY: < 20 NG /MLINSUFFICIENCY: 20-29 NG/MLSUFFICIENCY: 30-100 NG/MLTHIS ASSAY ACCURATELY QUANTIFIES THE SUM OFVITAMIN D3, 25-HYDROXY AND VIT D2,25-HYDROXY. Tobacco Screening.on 022 Adult depression screening assessment No [facility] Internal Medicine Work Phone: Tobacco use status [facility] b) No [facility] Work Phone: Fall risk assessment a) No falls within the last year [facility] Internal Medicine Work Phone: Tobacco use status [facility] b) No [facility] Internal Medicine Work Phone: US THYROIDon 09-02-2017 [...] mm.IMPRESSION: Homogeneous thyroid echotexture, without focal thyroid nodule.Technical Laboratory Asst : LESA Transcribe Date/Time: Sep 02 2017 7:58ADictated by : GEE TEJADA MDThis examination was interpreted and the report reviewed and electronically signed by: GEE TEJADA MD on Sep 02 2017 7:59AM [facility] Vital Signs Date Time Vital Sign Value Performing Clinician Facility 02-07-2025 22:50-0400 Body temperature 98.1 [degF] Dr. Dexter Daniel MD Work Phone: 1(600)748-846510 [place] [address] 02-07-2025 22:50-0400 Diastolic blood pressure 102 mm[Hg] Dr. Dexter Daniel MD Work Phone: 6(566)049-016048 [place] [address] 02-07-2025 22:50-0400 Heart rate 87 /min Dr. Dexter Daniel MD Work Phone: 3(750)019-399748 [place] [address] 02-07-2025 22:50-0400 Respiratory rate 16 /min Dr. Dexter Daniel MD Work Phone: 8(678)828-196748 [place] [address] 02-07-2025 22:50-0400 SaO2% (BldA) [Mass fraction] 98 % Dr. Dexter Daniel MD Work Phone: 4(538)139-536848 [place] [address] 02-07-2025 22:50-0400 Systolic blood pressure 144 mm[Hg] Dr. Dexter Daniel MD Work Phone: 8(724)263-381648 [place] [address] 02-07-2025 20:01-0400 Body height 185.[address] Dexter Daniel MD Work Phone: 8(740)580-563248 [place] [address] 02-07-2025 20:01-0400 Body mass index (BMI) [Ratio] 26.2 kg/m2 Dr. Dexter Daniel MD Work Phone: 7(438)406-796748 [place] [address] 02-07-2025 20:01-0400 Body weight 89.[address] Dexter Daniel MD Work Phone: 7(609)657-126748 [place] [address] 01-22-2025 18:39-0400 Body temperature 98.7 [degF] Dr. Dexter Daniel MD Work Phone: 4(479)013-430048 [place] [address] 01-22-2025 18:39-0400 Diastolic blood pressure 90 mm[Hg] Dr. Dexter Daniel MD Work Phone: [facility] 01-22-2025 18:39-0400 Heart rate 77 /min Dr. Dexter Daniel MD Work Phone: [facility] 01-22-2025 18:39-0400 Respiratory rate 20 /min Dr. Dexter Daniel MD Work Phone: [facility] 01-22-2025 18:39-0400 SaO2% (BldA) [Mass fraction] 100 % Dr. Dexter Daniel MD Work Phone: [facility] 01-22-2025 18:39-0400 Systolic blood pressure 138 mm[Hg] Dr. Dexter Daniel MD Work Phone: 1(801)958-004510 [place] [address] 01-22-2025 12:29-0400 Body height 185.[address] Dexter Daniel MD Work Phone: [facility] 01-22-2025 12:29-0400 Body mass index (BMI) [Ratio] 27.3 kg/m2 Dr. Dexter Daneil MD Work Phone: [facility] 01-22-2025 12:29-0400 Body weight [address] Dexter Daniel MD Work Phone: [facility] 03-02-2024 11:00-0400 Body temperature 97 [degF] Mona Rodriguez DO Work Phone: [facility] 03-02-2024 08:22-0400 Diastolic blood pressure 109 mm[Hg] Mona Rodriguez DO Work Phone: [facility] 03-02-2024 08:22-0400 Heart rate 78 /min Mona Rodriguez DO Work Phone: [facility] 03-02-2024 08:22-0400 Systolic blood pressure 151 mm[Hg] Mona Rodriguez DO Work Phone: [facility] 03-02-2024 06:00-0400 Respiratory rate 25 /min Mona Rodriguez DO Work Phone: [facility] 03-02-2024 06:00-0400 SaO2% (BldA) [Mass fraction] 100 % Mona Rodriguez DO Work Phone: [facility] 03-02-2024 01:24-0400 Body height 186 cm Mona Rodriguez DO Work Phone: [facility] 03-02-2024 01:24-0400 Body mass index (BMI) [Ratio] 25.26 kg/m2 Mona Rodriguez DO Work Phone: [facility] 03-02-2024 01:24-0400 Body weight 87.4 kg Mona Rodriguez DO Work Phone: [facility] 03-01-2024 18:35-0400 Body temperature 37.0 Mona Rodriguez DO Work Phone: [facility] 03-01-2024 18:30-0400 Body temperature 37.0 degrees Celsius [facility] Comment on above: Performed By: #### [id number] #### [place] [facility] ([id number]) [facility] ([facility]) [address] [place] [address] 12-15-2023 09:53-0400 Body height 185.4 cm Dexter Daniel MD Work Phone: [facility] 12-15-2023 09:53-0400 Body mass index (BMI) [Ratio] 27.42 kg/m2 Dexter Daniel MD Work Phone: [facility] 12-15-2023 09:53-0400 Body temperature 97.11 [degF] Dexter Daniel MD Work Phone: [facility] 12-15-2023 09:53-0400 Body weight 94.26 kg Dexter Daniel MD Work Phone: [facility] 12-15-2023 09:53-0400 Diastolic blood pressure 78 mm[Hg] Dexter Daniel MD Work Phone: [facility] 12-15-2023 09:53-0400 Heart rate 85 /min Dexter Daniel MD Work Phone: [facility] 12-15-2023 09:53-0400 SaO2% (BldA) [Mass fraction] 98 % Dexter Daniel MD Work Phone: 9(388)748-560462 [place] [address] 12-15-2023 09:53-0400 Systolic blood pressure 142 mm[Hg] Dexter Daniel MD Work Phone: 7(152)585-527459 [place] [address] 12-08-2023 14:14-0400 Body height 185.4 cm Dexter Daniel MD Work Phone: 4(801)566-570459 [place] [address] 12-08-2023 14:14-0400 Body mass index (BMI) [Ratio] 25.99 kg/m2 Dexter Daniel MD Work Phone: 2(019)807-545359 [place] [address] 12-08-2023 14:14-0400 Body weight 89.36 kg Dexter Daniel MD Work Phone: 6(640)157-047659 [place] [address] 12-08-2023 14:14-0400 Diastolic blood pressure 90 mm[Hg] Dexter Daniel MD Work Phone: 5(419)962-089259 [place] [address] 12-08-2023 14:14-0400 Heart rate 109 /min Dexter Daniel MD Work Phone: 9(309)642-821559 [place] [address] 12-08-2023 14:14-0400 SaO2% (BldA) [Mass fraction] 98 % Dexter Daniel MD Work Phone: 8(718)109-552363 [place] [address] 12-08-2023 14:14-0400 Systolic blood pressure 160 mm[Hg] Dexter Daniel MD Work Phone: 6(101)100-062459 [place] [address] 09-04-2023 11:27-0400 Body temperature 98 [degF] Dr. Paul Ontiveros Work Phone: [facility] 09-04-2023 11:27-0400 Diastolic blood pressure 97 mm[Hg] Dr. Paul Ontiveros Work Phone: [facility] 09-04-2023 11:27-0400 Heart rate 87 /min Dr. Paul Ontiveros Work Phone: [facility] 09-04-2023 11:27-0400 Respiratory rate 16 /min Dr. Paul Ontiveros Work Phone: [facility] 09-04-2023 11:27-0400 SaO2% (BldA) [Mass fraction] 99 % Dr. Paul Ontiveros Work Phone: [facility] 09-04-2023 11:27-0400 Systolic blood pressure 150 mm[Hg] Dr. Paul Ontiveros Work Phone: [facility] 09-04-2023 07:40-0400 Body height 185.[address] Pual Ontiveros Work Phone: [facility] 09-04-2023 07:40-0400 Body mass index (BMI) [Ratio] 25.1 kg/m2 Dr. Paul Ontiveros Work Phone: [facility] 09-04-2023 07:40-0400 Body weight 86.[address] Paul Ontiveros Work Phone: [facility] 08-15-2023 15:23-0400 Body mass index (BMI) [Ratio] 25.8 kg/m2 Dr. Paul Ontiveros Work Phone: [facility] 08-15-2023 15:23-0400 Body temperature 98.2 [degF] Dr. Paul Ontiveros Work Phone: [facility] 08-15-2023 15:23-0400 Body weight 88.[address] Paul Ontiveros Work Phone: [facility] 08-15-2023 15:23-0400 Diastolic blood pressure 93 mm[Hg] Dr. Paul Ontiveros Work Phone: [facility] 08-15-2023 15:23-0400 Heart rate 83 /min Dr. Paul Ontiveros Work Phone: [facility] 08-15-2023 15:23-0400 SaO2% (BldA) [Mass fraction] 98 % Dr. Paul Ontiveros Work Phone: [facility] 08-15-2023 15:23-0400 Systolic blood pressure 150 mm[Hg] Dr. Paul Ontiveros Work Phone: [facility] 06-09-2023 08:47-0500 Body height 185.4 cm Dexetr Daniel MD Work Phone: 6(048)859-527359 [place] [address] 06-09-2023 08:47-0500 Body mass index (BMI) [Ratio] 25.46 kg/m2 Dexter Daniel MD Work Phone: 5(196)981-571959 [place] [address] 06-09-2023 08:47-0500 Body temperature 97.59 [degF] Dexter Daniel MD Work Phone: 4(606)711-464559 [place] [address] 06-09-2023 08:47-0500 Body weight 87.54 kg Dexter Daniel MD Work Phone: 8(496)161-352659 [place] [address] 06-09-2023 08:47-0500 Diastolic blood pressure 107 mm[Hg] Dexter Daniel MD Work Phone: 7(961)372-882659 [place] [address] 06-09-2023 08:47-0500 Heart rate 107 /min Dexter Daniel MD Work Phone: 5(206)434-159659 [place] [address] 06-09-2023 08:47-0500 SaO2% (BldA) [Mass fraction] 97 % Dexter Daniel MD Work Phone: 2(587)765-389259 [place] [address] 06-09-2023 08:47-0500 Systolic blood pressure 146 mm[Hg] Dexter Daniel MD Work Phone: 3(512)806-731459 [place] [address] 03-23-2023 08:54-0400 Heart rate 66 /min Dr. Dafne Cornell Work Phone: [facility] 03-23-2023 08:00-0400 Body temperature 97.3 [degF] Dr. Dafne Cornell Work Phone: [facility] 03-23-2023 08:00-0400 Diastolic blood pressure 68 mm[Hg] Dr. Dafne Cornell Work Phone: [facility] 03-23-2023 08:00-0400 Respiratory rate 16 /min Dr. Dafne Cornell Work Phone: [facility] 03-23-2023 08:00-0400 SaO2% (BldA) [Mass fraction] 100 % Dr. Dafne Cornell Work Phone: [facility] 03-23-2023 08:00-0400 Systolic blood pressure 115 mm[Hg] Dr. Dafne Cornell Work Phone: [facility] 03-20-2023 10:28-0400 Body height 185.[address] Dafne Cornell Work Phone: [facility] 03-20-2023 10:28-0400 Body mass index (BMI) [Ratio] 24.2 kg/m2 Dr. Dafne Cornell Work Phone: [facility] 03-20-2023 10:28-0400 Body weight 83.[address] Dafne Cornell Work Phone: [facility] 10-22-2022 13:03-0400 Body height 185.4 cm Dexter Daniel MD Work Phone: [facility] 10-22-2022 13:03-0400 Body mass index (BMI) [Ratio] 24.94 kg/m2 Dexter Daniel MD Work Phone: [facility] 10-22-2022 13:03-0400 Body temperature 97.3 [degF] Dexter Daniel MD Work Phone: [facility] 10-22-2022 13:03-0400 Body weight 85.73 kg Dexter Daniel MD Work Phone: [facility] 10-22-2022 13:03-0400 Diastolic blood pressure 93 mm[Hg] Dexter Daniel MD Work Phone: [facility] 10-22-2022 13:03-0400 Heart rate 96 /min Dexter Daniel MD Work Phone: [facility] 10-22-2022 13:03-0400 SaO2% (BldA) [Mass fraction] 96 % Dexter Daniel MD Work Phone: [facility] 10-22-2022 13:03-0400 Systolic blood pressure 138 mm[Hg] Dexter Daniel MD Work Phone: [facility] 07-22-2022 16:33-0500 Body height 185.42 cm Dexter Daniel Work Phone: [facility] Internal Medicine Work Phone: 07-22-2022 16:33-0500 Body mass index (BMI) [Ratio] 24.41 kg/m2 Dexter Daniel Work Phone: [facility] Internal Medicine Work Phone: 07-22-2022 16:33-0500 Body surface area Derived from formula 2.08 m2 Dexter Daniel Work Phone: [facility] Internal Medicine Work Phone: 07-22-2022 16:33-0500 Body temperature 97.3 [degF] Dexter Daniel Work Phone: [facility] Internal Medicine Work Phone: 07-22-2022 16:33-0500 Body weight 83.92 kg Dexter Daniel Work Phone: [facility] Internal Medicine Work Phone: 07-22-2022 16:33-0500 Diastolic blood pressure 93 mm[Hg] Dexter Uriosteguipara Work Phone: [facility] Internal Medicine Work Phone: 07-22-2022 16:33-0500 Heart rate 101 /min Valsharmin Uriosteguipara Work Phone: [facility] Internal Medicine Work Phone: 07-22-2022 16:33-0500 SaO2% (BldA) [Mass fraction] 99 % [facility] Tk Uriotseguipara Work Phone: [facility] Internal Medicine Work Phone: 07-22-2022 16:33-0500 Systolic blood pressure 134 mm[Hg] Dexter Uriosteguipara Work Phone: [facility] Work Phone: 07-16-2022 11:36-0500 Body temperature 97.6 [degF] Dr. Lavell Patel Work Phone: [facility] 07-16-2022 11:36-0500 Diastolic blood pressure 104 mm[Hg] Dr. Lavell Patel Work Phone: [facility] 07-16-2022 11:36-0500 Heart rate 86 /min Dr. Lavell Patel Work Phone: [facility] 07-16-2022 11:36-0500 Respiratory rate 15 /min Dr. Lavell Patel Work Phone: [facility] 07-16-2022 11:36-0500 SaO2% (BldA) [Mass fraction] 99 % Dr. Lavell Patel Work Phone: [facility] 07-16-2022 11:36-0500 Systolic blood pressure 145 mm[Hg] Dr. Lavell Patel Work Phone: [facility] 07-16-2022 04:47-0500 Body mass index (BMI) [Ratio] 24.3 kg/m2 Dr. Lavell Patel Work Phone: [facility] 07-16-2022 04:47-0500 Body weight 83.[address] Lavell Patel Work Phone: [facility] 07-16-2022 00:37-0500 Body height 185.[address] Lavell Patel Work Phone: [facility] 07-16-2022 00:05-0500 Body temperature 98.2 [degF] Dr. Lavell Patel Work Phone: [facility] 07-16-2022 00:05-0500 Diastolic blood pressure 99 mm[Hg] Dr. Lavell Patel Work Phone: [facility] 07-16-2022 00:05-0500 Heart rate 88 /min Dr. Lavell Patel Work Phone: [facility] 07-16-2022 00:05-0500 Respiratory rate 16 /min Dr. Lavell Patel Work Phone: [facility] 07-16-2022 00:05-0500 SaO2% (BldA) [Mass fraction] 97 % Dr. Lavell Patel Work Phone: [facility] 07-16-2022 00:05-0500 Systolic blood pressure 162 mm[Hg] Dr. Lavell Patel Work Phone: [facility] 07-15-2022 21:19-0500 Body height 185.[address] Lavell Patel Work Phone: [facility] 07-15-2022 21:19-0500 Body mass index (BMI) [Ratio] 23.6 kg/m2 Dr. Lavell Patel Work Phone: [facility] 07-15-2022 21:19-0500 Body weight 81.[address] Lavell Patel Work Phone: [facility] 07-03-2022 19:51-0500 Diastolic blood pressure 97 mm[Hg] Dr. Lavell Patel Work Phone: [facility] 07-03-2022 19:51-0500 Heart rate 79 /min Dr. Lavell Patel Work Phone: [facility] 07-03-2022 19:51-0500 Respiratory rate 16 /min Dr. Lavell Patel Work Phone: [facility] 07-03-2022 19:51-0500 SaO2% (BldA) [Mass fraction] 99 % Dr. Lavell Patel Work Phone: [facility] 07-03-2022 19:51-0500 Systolic blood pressure 157 mm[Hg] Dr. Lavell Patel Work Phone: [facility] 07-03-2022 15:43-0500 Body height 185.[address] Lavell Patel Work Phone: [facility] 07-03-2022 15:43-0500 Body mass index (BMI) [Ratio] 26.4 kg/m2 Dr. Lavell Patel Work Phone: [facility] 07-03-2022 15:43-0500 Body temperature 96.9 [degF] Dr. Lavell Patel Work Phone: [facility] 07-03-2022 15:43-0500 Body weight 90.[address] Lavell Patel Work Phone: [facility] 06-20-2022 13:29-0500 Body temperature 98.1 [degF] Dr. Lavell Patel Work Phone: [facility] 06-20-2022 13:29-0500 Diastolic blood pressure 82 mm[Hg] Dr. Lavell Patel Work Phone: [facility] 06-20-2022 13:29-0500 Heart rate 71 /min Dr. Lavell Patel Work Phone: [facility] 06-20-2022 13:29-0500 Respiratory rate 18 /min Dr. Lavell Patel Work Phone: [facility] 06-20-2022 13:29-0500 SaO2% (BldA) [Mass fraction] 98 % Dr. Lavell Patel Work Phone: [facility] 06-20-2022 13:29-0500 Systolic blood pressure 132 mm[Hg] Dr. Lavell Patel Work Phone: [facility] 06-17-2022 11:46-0500 Body height 185.[address] Lavell Patel Work Phone: [facility] 06-17-2022 11:46-0500 Body mass index (BMI) [Ratio] 25.9 kg/m2 Dr. Lavell Patel Work Phone: [facility] 06-17-2022 11:46-0500 Body weight 89.[address] Lavell Patel Work Phone: [facility] 06-17-2022 11:00-0500 Diastolic blood pressure 79 mm[Hg] Dr. Paul Ontiveros Work Phone: [facility] 06-17-2022 11:00-0500 Heart rate 82 /min Dr. Paul Ontiveros Work Phone: [facility] 06-17-2022 11:00-0500 Respiratory rate 16 /min Dr. Paul Ontiveros Work Phone: [facility] 06-17-2022 11:00-0500 SaO2% (BldA) [Mass fraction] 99 % Dr. Pual Ontiveros Work Phone: [facility] 06-17-2022 11:00-0500 Systolic blood pressure 123 mm[Hg] Dr. Paul Ontiveros Work Phone: [facility] 06-17-2022 10:18-0500 Body temperature 98.3 [degF] Dr. Paul Ontiveros Work Phone: [facility] 06-17-2022 07:49-0500 Body height 185.[address] Paul Ontiveros Work Phone: [facility] 06-17-2022 07:49-0500 Body mass index (BMI) [Ratio] 26.1 kg/m2 Dr. Paul Ontiveros Work Phone: [facility] 06-17-2022 07:49-0500 Body weight 89.[address] Paul Ontiveros Work Phone: [facility] 06-06-2022 16:46-0500 Body height 185.42 cm Dexter Uriosteguipara Work Phone: [facility] Work Phone: 06-06-2022 16:46-0500 Body mass index (BMI) [Ratio] 27.31 kg/m2 Valji D Munsebpara Work Phone: [facility] Work Phone: 06-06-2022 16:46-0500 Body surface area Derived from formula 2.18 m2 Tristasharmin Uriosteguipara Work Phone: [facility] Work Phone: 06-06-2022 16:46-0500 Body temperature 97.5 [degF] Dexter Tk Quintanajapara Work Phone: [facility] Work Phone: 06-06-2022 16:46-0500 Body weight 93.9 kg Valsharmin D Kamalajapara Work Phone: [facility] Work Phone: 06-06-2022 16:46-0500 Diastolic blood pressure 96 mm[Hg] Tristasharmin D Kamalajapara Work Phone: [facility] Work Phone: 06-06-2022 16:46-0500 Heart rate 108 /min Valsharmin D Kamalajapara Work Phone: [facility] Work Phone: 06-06-2022 16:46-0500 SaO2% (BldA) [Mass fraction] 98 % Dexter Daniel Work Phone: [facility] Work Phone: 06-06-2022 16:46-0500 Systolic blood pressure 140 mm[Hg] Dexter Daniel Work Phone: [facility] Work Phone: 06-01-2022 14:25-0500 Diastolic blood pressure 107 mm[Hg] Dr. Paul Ontiveros Work Phone: [facility] 06-01-2022 14:25-0500 Heart rate 80 /min Dr. Paul Ontiveros Work Phone: [facility] 06-01-2022 14:25-0500 Respiratory rate 16 /min Dr. Paul Ontiveros Work Phone: [facility] 06-01-2022 14:25-0500 SaO2% (BldA) [Mass fraction] 96 % Dr. Paul Ontiveros Work Phone: [facility] 06-01-2022 14:25-0500 Systolic blood pressure 161 mm[Hg] Dr. Paul Ontiveros Work Phone: [facility] 06-01-2022 13:49-0500 Body height 185.[address] Paul Ontiveros Work Phone: [facility] Work Phone: 06-01-2022 13:49-0500 Body mass index (BMI) [Ratio] 26.4 kg/m2 Dr. Paul Ontiveros Work Phone: [facility] 06-01-2022 13:49-0500 Body temperature 97.2 [degF] Dr. Paul Ontiveros Work Phone: [facility] 06-01-2022 13:49-0500 Body weight 90.[address] Paul Ontiveros Work Phone: [facility] 05-29-2022 13:42-0500 Body mass index (BMI) [Ratio] 26.4 kg/m2 Dr. Paul Ontiveros Work Phone: [facility] 05-29-2022 13:42-0500 Body temperature 96.6 [degF] Dr. Paul Ontiveros Work Phone: [facility] 05-29-2022 13:42-0500 Body weight 90.[address] Paul Ontiveros Work Phone: [facility] 05-29-2022 13:42-0500 Diastolic blood pressure 84 mm[Hg] Dr. Paul Ontiveros Work Phone: [facility] 05-29-2022 13:42-0500 Heart rate 113 /min Dr. Paul Ontiveros Work Phone: [facility] 05-29-2022 13:42-0500 Respiratory rate 18 /min Dr. Paul Ontiveros Work Phone: [facility] 05-29-2022 13:42-0500 SaO2% (BldA) [Mass fraction] 97 % Dr. Paul Ontiveros Work Phone: [facility] 05-29-2022 13:42-0500 Systolic blood pressure 135 mm[Hg] Dr. Paul Ontiveros Work Phone: [facility] 05-03-2022 19:43-0500 Diastolic blood pressure 99 mm[Hg] [facility] 05-03-2022 19:43-0500 Heart rate 102 /min [facility] 05-03-2022 19:43-0500 Respiratory rate 16 /min [facility] 05-03-2022 19:43-0500 SaO2% (BldA) [Mass fraction] 98 % [facility] 05-03-2022 19:43-0500 Systolic blood pressure 153 mm[Hg] [facility] 05-03-2022 14:54-0500 Body temperature 98.5 [degF] [facility] 05-03-2022 13:26-0500 Body height 185.42 cm [facility] Work Phone: 05-03-2022 13:26-0500 Body mass index (BMI) [Ratio] 25 kg/m2 [facility] 05-03-2022 13:26-0500 Body weight 86.18 kg [facility] 01-29-2022 15:48-0400 Diastolic blood pressure 97 mm[Hg] Dr. Yrn Pollock Work Phone: [facility] Work Phone: 01-29-2022 15:48-0400 Heart rate 80 /min Dr. Yrn Pollock Work Phone: [facility] Work Phone: 01-29-2022 15:48-0400 Systolic blood pressure 141 mm[Hg] Dr. Yrn Pollock Work Phone: [facility] Work Phone: 01-29-2022 09:51-0400 Body height 187.[address] Yrn Pollock Work Phone: [facility] Work Phone: 01-29-2022 09:51-0400 Body mass index (BMI) [Ratio] 25 kg/m2 Dr. Yrn Pollock Work Phone: [facility] Work Phone: 01-29-2022 09:51-0400 Body temperature 97 [degF] Dr. Yrn Pollock Work Phone: [facility] Work Phone: 01-29-2022 09:51-0400 Body weight 88.[address] Yrn Pollock Work Phone: [facility] Work Phone: 01-29-2022 09:51-0400 Respiratory rate 16 /min Dr. Yrn Pollock Work Phone: [facility] Work Phone: 01-29-2022 09:51-0400 SaO2% (BldA) [Mass fraction] 100 % Dr. Yrn Pollock Work Phone: [facility] Work Phone: 11-14-2021 09:59-0400 Body mass index (BMI) [Ratio] 25.2 kg/m2 Dr. Yrn Pollock Work Phone: [facility] Work Phone: 11-14-2021 09:59-0400 Body temperature 93.7 [degF] Dr. Yrn Pollock Work Phone: [facility] Work Phone: 11-14-2021 09:59-0400 Body weight 88.[address] Yrn Pollock Work Phone: [facility] Work Phone: 11-14-2021 09:59-0400 Diastolic blood pressure 98 mm[Hg] Dr. Yrn Pollock Work Phone: [facility] Work Phone: 11-14-2021 09:59-0400 Heart rate 90 /min Dr. Yrn Pollock Work Phone: [facility] Work Phone: 11-14-2021 09:59-0400 Respiratory rate 18 /min Dr. Yrn Pollock Work Phone: [facility] Work Phone: 11-14-2021 09:59-0400 SaO2% (BldA) [Mass fraction] 99 % Dr. Yrn Pollock Work Phone: [facility] Work Phone: 11-14-2021 09:59-0400 Systolic blood pressure 140 mm[Hg] Dr. Yrn Pollock Work Phone: [facility] Work Phone: 09-27-2021 10:10-0400 Body temperature 97.7 [degF] Dr. Sachin Kennedy Work Phone: [facility] Work Phone: 09-27-2021 10:10-0400 Diastolic blood pressure 88 mm[Hg] Dr. Sachin Kennedy Work Phone: [facility] Work Phone: 09-27-2021 10:10-0400 Heart rate 73 /min Dr. Sachin Kennedy Work Phone: [facility] Work Phone: 09-27-2021 10:10-0400 Respiratory rate 18 /min Dr. Sachin Kennedy Work Phone: [facility] Work Phone: 09-27-2021 10:10-0400 SaO2% (BldA) [Mass fraction] 100 % Dr. Sachin Kennedy Work Phone: [facility] Work Phone: 09-27-2021 10:10-0400 Systolic blood pressure 133 mm[Hg] Dr. Sachin Kennedy Work Phone: [facility] Work Phone: 09-27-2021 05:29-0400 Body weight [address] Sachin Kennedy Work Phone: [facility] Work Phone: 09-26-2021 09:30-0400 Body height 187.[address] Sachin Kennedy Work Phone: [facility] Work Phone: 09-25-2021 22:17-0400 Diastolic blood pressure 91 mm[Hg] [facility] Work Phone: 09-25-2021 22:17-0400 Heart rate 140 /min [facility] Work Phone: 09-25-2021 22:17-0400 Systolic blood pressure 137 mm[Hg] [facility] Work Phone: 09-25-2021 20:17-0400 Body height 187.96 cm [facility] Work Phone: 09-25-2021 20:17-0400 Body mass index (BMI) [Ratio] 24.7 kg/m2 [facility] Work Phone: 09-25-2021 20:17-0400 Body weight 87.5 kg [facility] Work Phone: 09-25-2021 19:35-0400 Body temperature 98 [degF] [facility] Work Phone: 09-25-2021 19:35-0400 Respiratory rate 21 /min [facility] Work Phone: 09-25-2021 19:35-0400 SaO2% (BldA) [Mass fraction] 100 % [facility] Work Phone: 07-26-2021 09:18-0500 Body height 185.42 cm Tristasharmin Uriosteguipara Work Phone: [facility] Work Phone: 07-26-2021 09:18-0500 Body mass index (BMI) [Ratio] 27.15 kg/m2 Dexter Quintanajapara Work Phone: [facility] Work Phone: 07-26-2021 09:18-0500 Body surface area Derived from formula 2.18 m2 Dexter Uriosteguipara Work Phone: [facility] Work Phone: 07-26-2021 09:18-0500 Body temperature 97.4 [degF] Dexter Quintanajapara Work Phone: [facility] Work Phone: 07-26-2021 09:18-0500 Body weight 93.35 kg Valji Tk Munjapara Work Phone: [facility] Work Phone: 07-26-2021 09:18-0500 Diastolic blood pressure 96 mm[Hg] Valsharmin Frey Munjapara Work Phone: [facility] Work Phone: 07-26-2021 09:18-0500 Systolic blood pressure 130 mm[Hg] Dexter Uriosteguipara Work Phone: [facility] Work Phone: 06-11-2021 14:07-0500 Diastolic blood pressure 90 mm[Hg] Dexter Uriosteguipara Work Phone: -[facility] Work Phone: 06-11-2021 14:07-0500 Systolic blood pressure 160 mm[Hg] Dexter Uriosteguipara Work Phone: -[facility] Work Phone: 06-11-2021 13:43-0500 Body temperature 97.4 [degF] Dexter Uriosteguipara Work Phone: [facility] Work Phone: 06-11-2021 13:43-0500 Body weight 92.99 kg Dexter Brusha Work Phone: [facility] Work Phone: 06-11-2021 13:43-0500 Heart rate 104 /min Dexter Brusha Work Phone: [facility] Work Phone: 06-11-2021 13:43-0500 SaO2% (BldA) [Mass fraction] 98 % Dexter Frey Kamalawendiea Work Phone: [facility] Work Phone: Encounters Encounter Date Encounter Type Care Provider Facility Start: 03-02-2025 End: 03-02-2025 [facility] Facility:[facility] Start: 02-07-2025 End: 02-07-2025 Emergency department patient visit Dr. Dexter Daniel MD Work Phone: -Emergency Department Work Phone: Start: 01-22-2025 End: 01-22-2025 Emergency department patient visit Dr. Dexter Daniel MD Work Phone: -Emergency Department Work Phone: Start: 09-20-2024 End: 09-20-2024 ambulatory [facility] Facility:[facility] [place] Start: 06-19-2024 End: 06-19-2024 ambulatory [facility] Facility:[facility] Start: 06-15-2024 End: 06-15-2024 ambulatory [facility] Facility:[facility] [place] Start: 03-01-2024 End: 03-02-2024 Evaluation and management of inpatient [facility] Work Phone: Comment on above: DKA, type 1, not at goal (Primary Dx); Acute pancreatitis, unspecified complication status, unspecified pancreatitis type (HHS-HCC); Hypertension, unspecified type Start: 12-15-2023 End: 12-15-2023 Office outpatient visit 25 minutes Dexter Daniel MD Work Phone: [facility] Comment on above: Fatty liver (Primary Dx); Elevated uric acid in blood; DM type 2 with diabetic mixed hyperlipidemia (Multi); Gout, unspecified cause, unspecified chronicity, unspecified site; Alcohol abuse; GERD without esophagitis; Primary hypertension; Hypertension, unspecified type Start: 12-15-2023 End: 12-15-2023 [facility] Start: 12-11-2023 End: 12-11-2023 Subsequent hospital visit by physician [address] Comment on above: Abdominal pain, unsp ecified abdominal location Chronic kidney disea se, unspecified CKD stage Start: 12-11-2023 End: 12-11-2023 ambulatory [facility] Start: 12-08-2023 End: 12-08-2023 Periodic preventive med est patient 18-39 yrs Dexter Daniel MD Work Phone: [facility] Comment on above: Annual visit for [facility] adult medical examination with abnormal findings (Primary Dx); Chronic kidney disease, unspecified CKD stage; Abdominal pain, unspecified abdominal location; 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 Paul Ontiveros Work Phone: [facility] Work Phone: Start: 08-15-2023 End: 08-15-[address] Paul Ontiveros Work Phone: [facility] Work Phone: Start: 06-09-2023 End: 06-09-2023 Office outpatient visit 25 minutes Dexter Daniel MD Work Phone: [facility] Comment on above: Alcohol abuse (Prima ry Dx); Fatigue due to depression; 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); Current mild episode of major depressive disorder without prior episode (CMS/HCC); Hypertension, unspecified type; DM type 2 with diabetic mixed hyperlipidemia ([facility]/HCC); Abdominal pain, unspecified abdominal location; GERD without esophagitis Start: 06-09-2023 End: 06-09-2023 ambulatory [facility] Start: 03-23-2023 Non-patient / Non-visit Dr. Francisco Cornell Work Phone: [facility] Work Phone: Start: 03-22-2023 Non-patient / Non-visit Dr. Francisco Cornell Work Phone: [facility] Work Phone: Start: 03-21-2023 Non-patient / Non-visit Dr. Francisco Cornell Work Phone: [facility] Work Phone: Start: 03-20-2023 End: 03-23-2023 Evaluation and management of inpatient Dr. Dafne Cornell Work Phone: [facility] 3 Work Phone: Start: 10-22-2022 End: 12-15-2023 Patient encounter procedure Dexter Daniel MD Work Phone: [facility] Work Phone: Start: 10-22-2022 End: 10-22-2022 Periodic preventive med est patient 18-39 yrs Dexter Daniel MD Work Phone: [facility] Comment on above: Annual visit for [facility] adult medical examination with abnormal findings (Primary Dx); 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); Current mild episode of major depressive disorder without prior episode (CMS/HCC); Hypertension, unspecified type; DM type 2 with diabetic mixed hyperlipidemia ([facility]/HCC); GERD without esophagitis Start: 07-22-2022 Office outpatient vi sit 25 minutes Dexter Daniel Work Phone: [facility] Work Phone: Start: 07-16-2022 Non-patient / Non-visit Dr. Cheryl Patel Work Phone: [facility] Start: 07-15-2022 Non-patient / Non-visit Dr. Cheryl Patel Work Phone: [facility] Start: 07-15-2022 End: 07-16-2022 Evaluation and management of inpatient Dr. Lavell Patel Work Phone: [facility] Start: 07-03-2022 End: 07-03-2022 Emergency department patient visit Dr. Lavell Patel Work Phone: [facility] Start: 06-20-2022 Non-patient / Non-visit Dr. Cheryl Patel Work Phone: [facility] Start: 06-19-2022 Non-patient / Non-visit Dr. Cheryl Patel Work Phone: [facility] Start: 06-18-2022 Non-patient / Non-visit Dr. Cheryl Patel Work Phone: [facility] Start: 06-17-2022 Non-patient / Non-visit Dr. Cheryl Patel Work Phone: [facility] Start: 06-17-2022 End: 06-20-2022 Evaluation and management of inpatient [facility]. Paul Ontiveros [facility] Start: 06-06-2022 Office outpatient vi sit 25 minutes Dexter Daniel Work Phone: [facility] Work Phone: Start: 06-01-2022 End: 06-01-2022 Emergency department patient visit Dr. Paul Ontiveros [facility] Start: 05-29-2022 End: 05-29-[address] Paul Ontiveros Work Phone: [facility] Start: 05-03-2022 End: 05-03-2022 Emergency department patient visit [facility] Start: 01-29-2022 End: 01-29-2022 Emergency department patient visit Dr. Yrn Pollock Work Phone: [facility] Start: 11-14-2021 End: 11-14-[address] Yrn Pollock Work Phone: [facility] Start: 09-27-2021 Non-patient / Non-visit Dr. Carrillo Kennedy Work Phone: [facility] Start: 09-26-2021 Non-patient / Non-visit Dr. Carrillo Kennedy Work Phone: [facility] Start: 09-25-2021 End: 09-27-2021 Evaluation and management of inpatient [facility] Start: 07-27-2021 Chart Update Dexter gutierrez Work Phone: [facility] Work Phone: Start: 07-26-2021 Office outpatient vi sit 25 minutes Dexter Daniel Work Phone: [facility] Work Phone: Start: 06-11-2021 Office outpatient ne w 30 minutes Dexter Daniel Work Phone: [facility] Work Phone: Start: 02-10-2018 End: 02-11-2018 Patient encounter DEFAULT PHYSICIAN Facility:[facility] Start: 09-02-2017 [facility] Procedures Date Procedure Procedure Detail Performing Clinician Start: 02-07-[address] Dexter Daniel MD Work Phone: Start: 01-22-2025 Methadone measuremen t, urine Dr. Dexter Daniel MD Work Phone: Start: 01-22-2025 CT of head without contrast Dr. Dexter Daniel MD Work Phone: Start: 01-22-[address] Dexter Daniel MD Work Phone: Start: 03-02-2024 Glucose quantitative blood xcpt reagent [...] 03-02-2024 Basic metabolic panel calcium total Gordon Aragon DO Work Phone: Start: 03-02-2024 End: 03-02-2024 Glucose quantitative blood xcpt reagent strip Angelito Memo Fabian DO Work Phone: Start: 03-01-2024 Potassium serum plasma/whole blood Angelito Memo Fabian DO Work Phone: Start: 03-01-2024 End: [...] W Auto Different ial panel - Blood VALJI MUNJAPARA Start: 06-09-2023 Comprehensive metabo lic 2000 panel - Serum or Plasma VALJI MUNJAPARA Start: 06-09-2023 Cyanocobalamin vitamin b-12 VALJI MUNJAPARA Start: 06-09-2023 DRUG SCREEN, URINE W ITH REFLEX TO CONFIRMATION VALJI MUNJAPARA Start: 06-09-2023 Hemoglobin A1c/Hemoglobin.total in Blood VALJI MUNJAPARA Start: 06-09-2023 HEPATITIS C ANTIBODY VA JEYSON URIOSTEGUIPARA Start: 06-09-2023 HIV 1/2 ANTIGEN/ANTI BODY SCREEN WIH REFLEX TO CONFIRMATION VALJI MUNJAPARA Start: 06-09-2023 IRON AND TIBC VALSHARMIN KAMALA JAPARA Start: 06-09-2023 Lipid panel DEXTER MUNJ APARA Start: 06-09-2023 Magnesium [Mass/volu me] in Serum or Plasma VALJI MUNJAPARA Start: 06-09-2023 MICROSCOPIC ONLY, URINE VALJI MUNJAPARA Start: 06-09-2023 TESTOSTERONE,FREE AND TOTAL VALJI MUNJAPARA Start: 06-09-2023 THYROXINE, FREE VALJI M UNJAPARA Start: 06-09-2023 TSH WITH REFLEX TO F REE T4 IF ABNORMAL VALJI MUNJAPARA Start: 06-09-2023 Urate [Mass/volume] in Serum or Plasma VALJI MUNJAPARA Start: 06-09-2023 Lipid 1996 panel - S [...] 2) Zoster Vacc stephanie (1 of 2) [facility] Start: 06-09-2028 Cyanocobalamin vitam in b-12 Vitamin B-12 [facility] Start: 05-09-2025 ambulatory Ambulatory Facility:[facility] Start: 03-01-2025 Lipid panel Lipid Panel [facility] Start: 03-01-2025 Thyroid stimulating hormone measurement TSH Level [facility] Start: 02-07-2025 [facility] Start: 12-08-2024 Yearly Adult Physical Yearly Adult P hysical [facility] Start: 12-07-2024 Diabetic foot examination Diabetes: Foot Exam [facility] Start: 06-09-2024 Diabetic foot examination Diabetes: Foot Exam [facility] Start: 06-09-2024 Lipid panel Lipid Panel [facility] Start: 06-09-2024 Urine screening for protein Diabetes: Urine Protein Screening [facility] Start: 06-01-2024 Hemoglobin A1c measurement Diabetes: Hemoglobin A1C [facility] Start: 03-16-2024 End: 03-16-2024 Patient encounter procedure 03/16/2024 4:30 PM EDT Office Visit [facility] [address] [facility] [address] [place] [phone] Dexter Daniel MD [address] [place] [address] [facility] Start: 03-07-2024 Glaucoma screening Diabetes: R etinopathy Screening [facility] Start: 01-25-2024 Influenza vaccination Influenza Vacc ine (#1) [facility] Start: 01-05-2024 End: 01-05-2024 Patient encounter procedure 01/05/2024 3:00 PM EDT Office Visit [facility] [address] [phone] Dexter Daniel MD [address] [place] [address] [facility] Start: 12-15-2023 End: 12-14-2024 Comprehensive metabolic 2000 panel - Serum or Plasma Comprehensive Metabolic Panel Lab Routine Fatty liver Expected: 12/15/2023 (Approximate), Expires: 12/14/2024 [facility] Service Area Work Phone: Comment on above: Expected: 12/15/2023 (Approximate), Expires: 12/14/2024 Start: 12-15-2023 End: 12-14-2024 Urate [Mass/volume] in Serum or Plasma Uric Acid Lab Routine Fatty liver Expected: 12/15/2023 (Approximate), Expires: 12/14/2024 [facility] Work Phone: Comment on above: Expected: 12/15/2023 (Approximate), Expires: 12/14/2024 Start: 12-15-2023 End: 12-15-2023 Patient encounter procedure 12/15/2023 9:45 AM EDT Office Visit [facility] [address] [phone] Dexter Daniel MD [address] [place], [place] [id number] [facility] Start: 12-08-2023 End: 12-07-2024 CBC [...] Alcohol abuse Expected: 12/08/2023 (Approximate), Expires: 12/07/2024 [facility] Work Phone: Comment on above: [...] Alcohol abuse Expected: 12/08/2023 (Approximate), Expires: 06/09/2025 [facility] Work Phone: Comment on above: [...] Alcohol abuse Expected: 12/08/2023 (Approximate), Expires: 12/07/2024 [facility] Work Phone: Comment on above: [...] Alcohol abuse Expected: 12/08/2023 (Approximate), Expires: 12/07/2024 [facility] Service Area Work Phone: Comment on above: Expected: 12/08/2023 (Approximate), Expires: 12/07/2024 Start: 12-08-2023 End: 12-07-2024 Lipid 1996 panel - Serum or Plasma Lipid Panel Lab Routine Chronic kidney disease, unspecified CKD stage Abdominal pain, unspecified abdominal location 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) Current mild episode of major depressive disorder without prior episode ([facility]-HCC) DM type 2 with diabetic mixed hyperlipidemia (Multi) Alcohol abuse Expected: 12/08/2023 (Approximate), Expires: 12/07/2024 [facility] Work Phone: Comment on above: Expected: 12/08/2023 (Approximate), Expires: 12/07/2024 Start: 12-08-2023 End: 12-07-2024 Microalbumin/Creatinine [Mass Ratio] in Urine Albumin-Creatinine Ratio, Urine Random Lab Routine Chronic kidney disease, unspecified CKD stage Abdominal pain, unspecified abdominal location 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) Current mild episode of major depressive disorder without prior episode ([facility]-HCC) DM type 2 with diabetic mixed hyperlipidemia (Multi) Alcohol abuse Expected: 12/08/2023 (Approximate), Expires: 12/07/2024 [facility] Work Phone: Comment on above: Expected: 12/08/2023 (Approximate), Expires: 12/07/2024 Start: 12-08-2023 End: 12-07-2025 Stress cardiac echo study report Echocardiogram Stress Test Stress Echocardiography Routine Chronic kidney disease, unspecified CKD stage Abdominal pain, unspecified abdominal location 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) Current mild episode of major depressive disorder without prior episode ([facility]-HCC) DM type 2 with diabetic mixed hyperlipidemia (Multi) Alcohol abuse Expected: 12/08/2023 (Approximate), Expires: 12/07/2025 [facility] Work Phone: Comment on above: [...] Alcohol abuse Expected: 12/08/2023 (Approximate), Expires: 12/07/2024 [facility] Work Phone: Comment on above: [...] Alcohol abuse Expected: 12/08/2023 (Approximate), Expires: 12/07/2024 [facility] Work Phone: Comment on above: Expected: 12/08/2023 (Approximate), Expires: 12/07/2024 Start: 12-08-2023 End: 12-07-2024 US Biliary ducts and Gallbladder US biliary system Imaging Routine Abdominal pain, unspecified abdominal location Expected: 12/08/2023, Expires: 12/07/2024 [facility] Work Phone: Comment on above: Expected: 12/08/2023 , Expires: 12/07/2024 Start: 12-08-2023 End: 12-07-2024 US Kidney - bilateral and Urinary bladder US renal complete Imaging Routine Chronic kidney disease, unspecified CKD stage Expected: 12/08/2023, Expires: 12/07/2024 [facility] Work Phone: Comment on above: Expected: 12/08/2023 , Expires: 12/07/2024 Start: 10-27-2023 End: 10-27-2023 Patient encounter procedure 10/27/2023 1:00 PM EDT Office Visit [facility] [address] [facility] [address] [place] [phone] Dexter Daniel MD [address] [place] [address] [facility] Start: 10-24-2023 Yearly Adult Physical Yearly Adult P hysical [facility] Start: 09-08-2023 Hemoglobin A1c measurement Diabetes: Hemoglobin A1C [facility] Start: 09-04-2023 [facility] Start: 06-09-2023 End: 06-09-2024 CBC W Auto Differential panel - Blood [facility] [facility] Work Phone: Comment on above: Expected: 06/09/2023 (Approximate), Expires: 06/09/2024 Start: 06-09-2023 End: 06-09-2024 Cobalamin (Vitamin B12) [Mass/volume] in Serum or Plasma [facility] Work Phone: Comment on above: Expected: 06/09/2023 (Approximate), Expires: 06/09/2024 Start: 06-09-2023 End: 06-09-2024 Comprehensive metabolic 2000 panel - Serum or Plasma [facility] Work Phone: Comment on above: Expected: 06/09/2023 (Approximate), Expires: 06/09/2024 Start: 06-09-2023 End: 06-09-2024 Drugs of abuse screen W Reflex confirm panel - Urine [facility] Work Phone: Comment on above: Expected: 06/09/2023 (Approximate), Expires: 06/09/2024 Start: 06-09-2023 End: 06-09-2024 Hemoglobin A1c/Hemoglobin.total in Blood [facility] Work Phone: Comment on above: Expected: 06/09/2023 (Approximate), Expires: 06/09/2024 Start: 06-09-2023 End: 06-09-2024 Hepatitis C virus Ab [Presence] in Serum [facility] Work Phone: Comment on above: Expected: 06/09/2023 (Approximate), Expires: 06/09/2024 Start: 06-09-2023 End: 06-09-2024 HIV 1+2 Ab+HIV1 p24 Ag [Presence] in Serum or Plasma by Immunoassay [facility] Service Area Work Phone: Comment on above: Expected: 06/09/2023 (Approximate), Expires: 06/09/2024 Start: 06-09-2023 End: 06-09-2024 Iron and Iron binding capacity panel - Serum or Plasma [facility] Work Phone: Comment on above: Expected: 06/09/2023 (Approximate), Expires: 06/09/2024 Start: 06-09-2023 End: 06-09-2024 Lipid 1996 panel - Serum or Plasma [facility] Work Phone: Comment on above: Expected: 06/09/2023 (Approximate), Expires: 06/09/2024 Start: 06-09-2023 End: 06-09-2024 Magnesium [Mass/volume] in Serum or Plasma [facility] Work Phone: Comment on above: Expected: 06/09/2023 (Approximate), Expires: 06/09/2024 Start: 06-09-2023 End: 06-09-2024 Microalbumin/Creatinine [Mass Ratio] in Urine [facility] Work Phone: Comment on above: Expected: 06/09/2023 (Approximate), Expires: 06/09/2024 Start: 06-09-2023 End: 06-09-2024 Testosterone, total and free [facility] Work Phone: Comment on above: Expected: 06/09/2023 (Approximate), Expires: 06/09/2024 Start: 06-09-2023 End: 06-09-2024 TSH with reflex to Free T4 if abnormal [facility] Work Phone: Comment on above: Expected: 06/09/2023 (Approximate), Expires: 06/09/2024 Start: 06-09-2023 End: 06-09-2024 Urate [Mass/volume] in Serum or Plasma [facility] Work Phone: Comment on above: Expected: 06/09/2023 (Approximate), Expires: 06/09/2024 Start: 06-09-2023 End: 06-09-2024 Urinalysis microscopic panel - Urine Qualitative by Automated [facility] Work Phone: Comment on above: Expected: 06/09/2023 (Approximate), Expires: 06/09/2024 Start: 06-09-2023 End: 06-09-2024 US Biliary ducts and Gallbladder US biliary system Imaging Routine Abdominal pain, unspecified abdominal location Expected: 06/09/2023, Expires: 06/09/2024 [facility] Work Phone: Comment on above: Expected: 06/09/2023 , Expires: 06/09/2024 Start: 03-23-2023 Patient discharge [facility] Start: 03-20-2023 [facility] Start: 03-20-2023 Following clinical pathway protocol [facility] Start: 03-20-2023 Assessment of risk o f venous thromboembolism [facility] Start: 03-20-2023 Care regimes management [facility] Start: 03-20-2023 Insertion of cathete r into peripheral vein [facility] Start: 03-20-2023 Notification of physician [facility] Start: 03-20-2023 Providing care accor ding to standard [facility] Start: 03-20-2023 Referral to service [facility] Start: 03-20-2023 [facility] Start: 03-20-2023 Verification routine [facility] Start: 03-20-2023 Admission procedure [facility] Start: 01-24-2023 Influenza vaccination [facility] Start: 11-28-2022 End: 11-28-2022 Patient encounter procedure 11/28/2022 1:45 PM EDT Office Visit [facility] [address] [place] [address] Dexter Daniel MD [address] [place] [address] [facility] Start: 10-22-2022 End: 10-23-2023 CBC W Auto Differential panel - Blood CBC and Auto Differential Lab Routine Annual visit for general adult medical examination with abnormal findings 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) Expected: 10/22/2022 (Approximate), Expires: 10/23/2023 [facility] Work Phone: Comment on above: Expected: 10/22/2022 (Approximate), Expires: 10/23/2023 Start: 10-22-2022 End: 10-23-2023 Comprehensive metabolic 2000 panel - Serum or Plasma Comprehensive Metabolic Panel Lab Routine Annual visit for general adult medical examination with abnormal findings 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) Expected: 10/22/2022 (Approximate), Expires: 10/23/2023 [facility] Work Phone: Comment on above: Expected: 10/22/2022 (Approximate), Expires: 10/23/2023 Start: 10-22-2022 End: 10-23-2023 Hemoglobin A1c/Hemoglobin.total in Blood Hemoglobin A1C Lab Routine Annual visit for general adult medical examination with abnormal findings 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) Expected: 10/22/2022 (Approximate), Expires: 10/23/2023 [facility] Work Phone: Comment on above: Expected: 10/22/2022 (Approximate), Expires: 10/23/2023 Start: 10-22-2022 End: 10-23-2023 Lipid 1996 panel - Serum or Plasma Lipid Panel Lab Routine Annual visit for general adult medical examination with abnormal findings 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) Expected: 10/22/2022 (Approximate), Expires: 10/23/2023 [facility] Work Phone: Comment on above: Expected: 10/22/2022 (Approximate), Expires: 10/23/2023 Start: 10-22-2022 End: 10-23-2023 Microalbumin/Creatinine [Mass Ratio] in Urine Albumin , Urine Random Lab Routine Annual visit for general adult medical examination with abnormal findings 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 Work Phone: Start: 07-17-2022 Blood chemistry [facility] Start: 07-16-2022 Blood chemistry [facility] Start: 07-16-2022 Blood chemistry [facility] Start: 07-16-2022 Blood chemistry [facility] Start: 07-16-2022 Patient discharge [facility] Start: 07-16-2022 Blood chemistry [facility] Start: 07-16-2022 [facility] Start: 07-16-2022 Application of intermittent pneumatic compression device [facility] Start: 07-16-2022 Assessment of risk o f venous thromboembolism [facility] Start: 07-16-2022 Continuous pulse oximetry [facility] Start: 07-16-2022 End: 07-16-2022 Following clinical pathway protocol [facility] Start: 07-16-2022 Insertion of cathete r into peripheral vein [facility] Start: 07-16-2022 Lab findings surveillance [facility] Start: 07-16-2022 Measuring intake and output [facility] Start: 07-16-2022 Notification of physician [facility] Start: 07-16-2022 Patient education [facility] Start: 07-16-2022 Providing care accor ding to standard [facility] Start: 07-16-2022 Vital signs measurements [facility] Start: 07-16-2022 End: 07-16-2022 [facility] Start: 07-16-2022 Patient referral to dietitian [facility] Start: 07-15-2022 Verification routine [facility] Start: 07-15-2022 Admission procedure [facility] Start: 07-15-2022 [facility] Start: 06-20-2022 Patient discharge [facility] Start: 06-17-2022 Assessment of risk o f venous thromboembolism [facility] Start: 06-17-2022 Care regimes management [facility] Start: 06-17-2022 Catheterization of vein [facility] Start: 06-17-2022 Insertion of cathete r into peripheral vein [facility] Start: 06-17-2022 Providing care accor ding to standard [facility] Start: 06-17-2022 Referral to service [facility] Start: 06-17-2022 End: 06-17-2022 [facility] Start: 06-17-2022 Following clinical pathway protocol [facility] Start: 06-17-2022 Verification routine [facility] Start: 06-17-2022 Admission procedure [facility] Start: 01-29-2022 Blood chemistry [facility] Work Phone: Start: 10-26-2021 Hemoglobin A1c measurement Diabetes: Hemoglobin A1C [facility] Start: 09-25-2021 Bacteria identified in Blood by Culture Blood Culture [facility] Work Phone: Start: 09-25-2021 Respiratory Panel (PCR) Respiratory Panel (PCR) [facility] Work Phone: Start: 10-05-2020 COVID-19 Vaccine (3 - Booster for Pfizer series) COVID-19 Vaccine (3 - Booster for Pfizer series) [facility] Start: 10-05-2020 COVID-19 Vaccine (3 - Pfizer series) COVID-19 Vaccine (3 - Pfizer series) [facility] Start: 02-27-2019 DTaP/Tdap/Td Vaccine s (7 - Td or Tdap) DTaP/Tdap/Td Vaccines (7 - Td or Tdap) [facility] Start: 2014 Hepatitis C screening Hepatitis C Sc yelena [facility] Start: 02-27-2010 Pneumococcal Vaccine : Pediatrics (0 to 5 Years) and At-Risk Patients (6 to 64 Years) (2 - PCV) Pneumococcal Vaccine: Pediatrics (0 to 5 Years) and At-Risk Patients (6 to 64 Years) (2 - PCV) [facility] Start: 2007 HPV Vaccines (1 - Ma le 2-dose series) HPV Vaccines (1 - Male 2-dose series) [facility] Start: 2006 Diabetic foot examination Diabetes: Foot Exam [facility] Start: 2006 Ophthalmic examinati on and evaluation Diabetes: Retinopathy Screening [facility] Start: 04-02-2002 Varicella vaccination Varicell a Vaccines (1 of 2 - 2-dose childhood series) [facility] Start: 1996 Diabetes: Celiac Dis ease Screening Diabetes: Celiac Disease Screening [facility] Start: 1996 HIV screening HIV Screening [facility] Anion gap measurement [facility] Work Phone: Anion gap measurement [facility] Anion gap measurement [facility] Anion gap measurement [facility] Anion gap measurement [facility] Anion gap measurement [facility] Bilirubin measuremen t, urine [facility] BUN/Creatinine ratio [facility] Work Phone: BUN/Creatinine ratio [facility] BUN/Creatinine ratio [facility] BUN/Creatinine ratio [facility] BUN/Creatinine ratio [facility] BUN/Creatinine ratio [facility] Calcium [Mass/volume ] in Serum or Plasma [facility] Work Phone: Calcium [Mass/volume ] in Serum or Plasma [facility] Calcium [Mass/volume ] in Serum or Plasma [facility] Calcium [Mass/volume ] in Serum or Plasma [facility] Calcium [Mass/volume ] in Serum or Plasma [facility] Calcium [Mass/volume ] in Serum or Plasma [facility] Carbon dioxide, tota l [Moles/volume] in Serum or Plasma [facility] Work Phone: Carbon dioxide, tota l [Moles/volume] in Serum or Plasma [facility] Carbon dioxide, tota l [Moles/volume] in Serum or Plasma [facility] Carbon dioxide, tota l [Moles/volume] in Serum or Plasma [facility] Carbon dioxide, tota l [Moles/volume] in Serum or Plasma [facility] Carbon dioxide, tota l [Moles/volume] in Serum or Plasma [facility] Chloride [Moles/volu me] in Serum or Plasma [facility] Work Phone: Chloride [Moles/volu me] in Serum or Plasma [facility] Chloride [Moles/volu me] in Serum or Plasma [facility] Chloride [Moles/volu me] in Serum or Plasma [facility] Chloride [Moles/volu me] in Serum or Plasma [facility] Chloride [Moles/volu me] in Serum or Plasma [facility] Creatinine [Moles/volume] in Serum or Plasma [facility] Work Phone: Creatinine [Moles/volume] in Serum or Plasma [facility] Creatinine [Moles/volume] in Serum or Plasma [facility] Creatinine [Moles/volume] in Serum or Plasma [facility] Creatinine [Moles/volume] in Serum or Plasma [facility] Creatinine [Moles/volume] in Serum or Plasma [facility] Electrocardiogram, 12-lead PRN ACS symptoms Electrocardiogram, 12-lead PRN ACS symptoms ECG Routine As needed until discontinued starting 03/01/2024 [facility] Service Area Work Phone: Comment on above: As needed until disc ontinued starting 03/01/2024 End: 03-01-2024 Extra Urine [facility] Extra Urine [facility] Lab Timed Once for 1 Occurrences starting 03/01/2024 until 03/01/2024 [facility] Work Phone: Comment on above: Once for 1 Occurrenc es starting 03/01/2024 until 03/01/2024 Glucose [Mass/volume ] in Serum or Plasma [facility] Work Phone: Glucose [Mass/volume ] in Serum or Plasma [facility] Glucose [Mass/volume ] in Serum or Plasma [facility] Glucose [Mass/volume ] in Serum or Plasma [facility] Glucose [Mass/volume ] in Serum or Plasma [facility] Glucose [Mass/volume ] in Serum or Plasma [facility] End: 03-04-2024 Glucose [Mass/volume] in Serum or Plasma POCT Glucose Point of Care Testing - Docked Device Routine 4 times daily before meals and at bedtime for 3 Days starting 03/01/2024 until 03/04/2024, 3 completed [facility] Work Phone: Comment on above: 4 times daily before meals and at bedtime for 3 Days starting 03/01/2024 until 03/04/2024, 3 completed Hematocrit [Volume Fraction] of Blood [facility] Hemoglobin [Mass/vol ume] in Blood [facility] Hemoglobin [Presence ] in Urine [facility] Leukocytes [#/volume ] in Blood [facility] Mean corpuscular hemoglobin concentration determination [facility] Mean corpuscular hemoglobin determination [facility] Measurement of keton es in urine using dipstick [facility] Measurement of renal function [facility] Work Phone: Measurement of renal function [facility] Measurement of renal function [facility] Measurement of renal function [facility] Measurement of renal function [facility] Measurement of renal function [facility] Microscopic urinalysis [facility] Neutrophil count [facility] Neutrophil percent differential count [facility] Patient Education [facility] Work Phone: Patient referral [facility] Work Phone: pH of Urine [facility] Platelets [#/volume] in Blood [facility] Potassium [Moles/vol ume] in Serum or Plasma [facility] Work Phone: Potassium [Moles/vol ume] in Serum or Plasma [facility] Potassium [Moles/vol ume] in Serum or Plasma [facility] Potassium [Moles/vol ume] in Serum or Plasma [facility] Potassium [Moles/vol ume] in Serum or Plasma [facility] Potassium [Moles/vol ume] in Serum or Plasma [facility] Red blood cell count [facility] Red cell distributio n width determination [facility] Sodium [Moles/volume ] in Serum or Plasma [facility] Work Phone: Sodium [Moles/volume ] in Serum or Plasma [facility] Sodium [Moles/volume ] in Serum or Plasma [facility] Sodium [Moles/volume ] in Serum or Plasma [facility] Sodium [Moles/volume ] in Serum or Plasma [facility] Sodium [Moles/volume ] in Serum or Plasma [facility] Specific gravity of Urine [facility] Urea nitrogen [Mass/volume] in Serum or Plasma [facility] Work Phone: Urea nitrogen [Mass/volume] in Serum or Plasma [facility] Urea nitrogen [Mass/volume] in Serum or Plasma [facility] Urea nitrogen [Mass/volume] in Serum or Plasma [facility] Urea nitrogen [Mass/volume] in Serum or Plasma [facility] Urea nitrogen [Mass/volume] in Serum or Plasma [facility] End: 03-01-2024 Urinalysis complete W Reflex Culture panel - Urine [facility] Service Area Work Phone: Comment on above: STAT (Lab) for 1 Occ urrences starting 03/01/2024 until 03/01/2024 Urinalysis, blood, qualitative [facility] Urine dipstick for glucose [facility] Urine dipstick for leukocyte esterase [facility] Urine dipstick for nitrite [facility] Urine dipstick for protein [facility] Urine examination [facility] Urine microscopy: epithelial cells [facility] Urine Microscopy: wh ite cells [facility] Urobilinogen [Presen ce] in Urine [facility] End: 12-11-2023 US Biliary ducts and Gallbladder [facility] Service Area Work Phone: Comment on above: Once for 1 Occurrenc es starting 12/11/2023 until 12/11/2023 End: 12-11-2023 US Kidney - bilateral and Urinary bladder [facility] Service Area Work Phone: Comment on above: Once for 1 Occurrenc es starting 12/11/2023 until 12/11/2023 Immunizations Immunization Date Immunization Notes Care Provider Juan Daniel nieves 02-10-2021 Covid (Pfizer) Dr. Sachin Kennedy Work Phone: [facility] 01-10-2021 Covid (Pfizer) Dr. Sachin Kennedy Work Phone: [facility] 08-10-2020 Pfizer-BioNTech COVI D-19 Vacc 30 MCG/0.3ML Intramuscular Suspension Valji D Munjapara Work Phone: [facility] 07-20-2020 Pfizer-BioNTech COVI D-19 Vacc 30 MCG/0.3ML Intramuscular Suspension Valji D Munjapara Work Phone: [facility] 05-22-2015 influenza, injectabl e, quadrivalent, preservative free Valji D Munjapara Work Phone: [facility] Work Phone: 05-22-2015 influenza virus vacc ine, unspecified formulation Dexter Daniel MD Work Phone: [facility] Work Phone: 03-08-2014 influenza, injectabl e, quadrivalent, preservative free Valji D Kamalajapara Work Phone: [facility] Work Phone: 03-30-2013 influenza, injectabl e, quadrivalent, contains preservative Dexter Daniel MD Work Phone: [facility] Work Phone: 03-30-2013 influenza, injectabl e, quadrivalent, preservative free Dr. Dafne Cornell Work Phone: [facility] 03-30-2013 influenza, seasonal, injectable Valji D Munjapara Work Phone: [facility] Work Phone: 05-01-2011 influenza virus vacc ine, unspecified formulation Dexter Daniel MD Work Phone: [facility] Work Phone: 02-27-2009 influenza virus vacc ine, unspecified formulation Dexter Daniel MD Work Phone: [facility] Work Phone: 02-27-2009 Meningococcal, MCV4, unspecified conjugate formulation(groups A, C, Y and W-135) Dexter Daniel MD Work Phone: [facility] Work Phone: 02-27-2009 pneumococcal polysaccharide vaccine, 23 valent Dexter Daniel MD Work Phone: [facility] Work Phone: 02-27-2009 tetanus toxoid, redu walker diphtheria toxoid, and acellular pertussis vaccine, adsorbed Dexter Daniel MD Work Phone: [facility] Work Phone: 03-05-2002 diphtheria, tetanus toxoids and pertussis vaccine Dexter Daniel MD Work Phone: [facility] Work Phone: 03-05-2002 measles, mumps and rubella virus vaccine Dexter Daniel MD Work Phone: [facility] Work Phone: 03-05-2002 poliovirus vaccine, inactivated Dexter Daniel MD Work Phone: [facility] Work Phone: 10-31-1997 diphtheria, tetanus toxoids and pertussis vaccine Dexter Daniel MD Work Phone: [facility] Work Phone: 10-31-1997 haemophilus influenz ae type b vaccine, HbOC conjugate Dexter Daniel MD Work Phone: [facility] Work Phone: 10-31-1997 measles, mumps and rubella virus vaccine Dexter Daniel MD Work Phone: [facility] Work Phone: 10-31-1997 poliovirus vaccine, inactivated Dexter Daniel MD Work Phone: [facility] Work Phone: 03-24-1997 hepatitis B vaccine, pediatric or pediatric/adolescent dosage Dexter Daniel MD Work Phone: [facility] Work Phone: 1996 diphtheria, tetanus toxoids and pertussis vaccine Dexter Daniel MD Work Phone: [facility] Work Phone: 1996 haemophilus influenz ae type b vaccine, HbOC conjugate Dexter Daniel MD Work Phone: [facility] Work Phone: 1996 diphtheria, tetanus toxoids and pertussis vaccine Dexter Daniel MD Work Phone: [facility] Work Phone: 1996 haemophilus influenz ae type b vaccine, HbOC conjugate Detxer Daniel MD Work Phone: [facility] Work Phone: 1996 poliovirus vaccine, inactivated Dexter Daniel MD Work Phone: [facility] Work Phone: 1996 diphtheria, tetanus toxoids and pertussis vaccine Dexter Daniel MD Work Phone: [facility] Work Phone: 1996 haemophilus influenz ae type b vaccine, HbOC conjugate Dexter Daniel MD Work Phone: [facility] Work Phone: 1996 hepatitis B vaccine, pediatric or pediatric/adolescent dosage Dexter Daniel MD Work Phone: [facility] Work Phone: 1996 poliovirus vaccine, inactivated Dexter Daniel MD Work Phone: [facility] Work Phone: 1996 hepatitis B vaccine, pediatric or pediatric/adolescent dosage Dexter Daniel MD Work Phone: [facility] Work Phone: Payers Date Payer Category Payer Self-pay [id number] 2022 Unknown 2009 Unknown [id number] 2009 Unknown [id number] 1996 Unknown [id number] 2.16.8 [id number] 1996 Unknown [id number] 2.16.8 [id number] 1996 Unknown [id number] 2.16.8 [id number] 1996 Unknown [id number] 2.16.8 [id number] 1996 Unknown [id number] 2.16.8 [id number] 1996 Unknown [id number] 2.16.8 [id number] 1996 Unknown [id number] 2.16.8 [id number] 1996 Unknown [id number] 2.16.8 [id number] Unknown [id number] 2.16.8 [id number] Unknown [id number] 2.16.8 [id number] Unknown [id number] 2.16.8 [id number] Unknown [id number] 2.16.8 [id number] Unknown [id number] 2.16.8 [id number] Unknown [id number] 2.16.8 [id number] Unknown [id number] 2.16.8 [id number] Social History Date Type Detail Facility Start: 10-22-2022 End: 12-08-2023 Never smoker Never smoker [facility] Work Phone: Start: 09-25-2021 End: 09-04-2023 Tobacco smoking status TXIS Unknown if ever smoked [facility] Start: 12-29-2014 None [facility] Start: 12-29-2014 With Family [facility] Start: 12-29-2014 Non-smoker [facility] Start: 1996 Sex Assigned At Male [facility] Start: 10-22-2022 End: 02-07-2025 Tobacco smoking status NHIS Never smoked tobacco [facility] Work Phone: Start: 10-22-2022 Tobacco use and exposure Smokeless tobacco non-user [facility] Work Phone: Start: 10-22-2022 End: 12-08-2023 Alcohol intake Ex-drinker (finding) [facility] Work Phone: Start: 10-22-2022 End: 12-08-2023 Tobacco use panel [facility] Work Phone: Start: 1996 Sex Assigned At Not on file [facility] Work Phone: Start: 10-12-2022 End: 03-01-2024 Exposure to SARS-CoV-2 (event) Not sure [facility] Start: 12-15-2023 End: 03-02-2024 Alcoholic beverage intake Current drinker of alcohol (finding) [facility] Work Phone: How often to you hav e a drink containing alcohol? Monthly or less [facility] Work Phone: How many standard drinks containing alcohol do you have on a typical day? 1 or 2 [facility] Work Phone: How often do you hav e 6 or more drinks on 1 occasion? Monthly [facility] Work Phone: Medical Equipment Procedure Code Equipment Code Equipment Origin al Text Equipment Identifier Dates check sugars 3 t imes per day (on insulin pump) [id number] Start: 10-23-2018 End: 06-09-2023 Goals Date Patient Goal Desired Activity /State Functional Status Date Assessment Result Facility 03-23-2023 Functional status Ambulates;Up ad josh [facility] Work Phone: 07-16-2022 Functional status Ambulates [facility] Work Phone: 06-20-2022 Functional status Up ad josh [facility] Work Phone: 09-27-2021 Functional status Ambulates;Up ad josh [facility] Work Phone: Mental Status Date Assessment Result Facility 01-22-2025 Cognitive function Level Of Cons ciousness Awake;Alert;Restless [facility] Work Phone: 03-23-2023 Cognitive function Voice/Name [facility] Work Phone: 06-20-2022 Cognitive function Appropriate;Cooperativ e [facility] Work Phone: 01-29-2022 Cognitive function Level Of Cons ciousness Awake;Alert [facility] Work Phone: 09-27-2021 Cognitive function Voice/Name [facility] Work Phone: 09-25-2021 Cognitive function Level Of Cons ciousness Awake;Alert [facility] Work Phone: Clinical Notes 07-28-2020 to 02-07-2025 Note Date & Type Note Facility 02-07-2025 Discharge summary [facility] 02-07-2025 Discharge summary Note Date/Time February 07, 2025 10:34pm [facility] Medical Records Department [address] [place] [address] Emergency Department Summary 02/07/25 MR#: [id number] Acct: [id number] Name: JORGE HOLLIS Rep #:[id number] : 1995 29 From: Lavell Patel MD PCP: Dr. Dexter Daniel MD Status:RE G ER Location: ED HPI History of Present Illness Chief Complaint: Ear Problem Informant: patient and family Narrative Narrative: 29-year-old male started having tinnitus while at work earlier today, was maybe 9 or 10 hours prior to evaluation, this progressed to complete hearing loss fromhis right ear. States when holding his cell phone up to his right ear he cannothear anything, tinnitus persist, he had some brief disequilibrium but that has not been a prominent symptom nor dizziness or headache. He states he has developed some mild numbness throughout the right cheek, and family states that he had some swelling in that area. Patient denies having any pain here, he states he has some mild discomfort around the ear but not major pain. No focal neurologic symptoms distally. Patient is an alcoholic, he last drank last night heavily as he does each night. He is also a type I diabetic with an insulin pump. [facility] Medical History Pancreatitis GERD (gastroesophageal reflux disease) Seizures History of diabetes mellitus Anxiety Alcohol abuse Alcohol dependence Depression Presence of insulin pump Diabetes mellitus type 1 High cholesterol Vitamin D deficiency HTN (hypertension) Home Medications ?Medication ?Instructions ?Recorded ?Last Taken ?Type amlodipine 5 mg-benazepril 10 mg 1 cap PO QDAY 4 Unknown History capsule ondansetron 8 mg disintegrating 8 mg PO Q8H PRN nausea and 09/04/23 Unknown Rx tablet vomiting #20 tabs blood pressure monitor (Blood #1 ea 06/15/24 Unknown R x Pressure Kit) blood-glucose sensor (Dexcom G7 #9 ea 10/22/24 Unknown Rx Sensor device) insulin pump cart,auto,BT,G6/7 #30 ea 12/29/24 Unknown Rx (Omnipod 5 G6-G7 Pods (Gen 5) subcutaneous cartridge) insulin lispro 100 unit/mL 100 unit subcut .COMPLEX Unknown History subcutaneous solution (Humalog U-100 Insulin) ondansetron 4 mg disintegrating 4 mg PO Q8H PRN PRN Na usea #15 tabs 01/22/25 Unknown Rx tablet prednisone 10 mg tablet 10 mg PO UD #38 tabs 5 Unknown Rx Allergy/AdvReac Type Severity Reaction Status Date / Time No Known Allergies Allergy Verified 02/07/25 20:02 Family History Mother Hypertension Surgical History No [...] in vision or diplopia ENT ENT ED: Reports as per HPI, abnormal hearing and tinnitus; Denies rhinorrhea or sore throat Cardiovascular Cardiovascular: Denies chest pain or palpitations Respiratory/Chest Respiratory/Chest: Denies cough or dyspnea Gastrointestinal Gastrointestinal: Denies abdominal pain, diarrhea, nausea or vomiting Genitourinary Genitourinary ED: Denies dysuria or hematuria Musculoskeletal Musculoskeletal: Denies back pain or neck pain Integumentary Denies abscess or rash Neurologic Neurologic: Reports disequilibrium; Denies headache(s), paresthesias or weakness Psychiatric Psychiatric: Denies anxiety or suicidal thoughts EXAM Physical Exam Const Vital Signs: 02/07/25 20:01 02/07/25 20:38 Temperature 98.2 F 99.3 F H Temperature Source Temporal Oral Pulse Rate 130 H 101 H Respiratory Rate 19 H 16 Blood Pressure 178/117 H 144/108 H Blood Pressure Mean 137 120 Pulse Ox 100 99 Oxygen Delivery Method Room Air Positive well nourished and well developed General Appearance ED: well developed and NAD HEENT Reports moist mucous membranes HEENT Narrative: TMs and EAC normal bilaterally and symmetric. No periauricular lymphadenopathy. No parotid tenderness and no discharge from Stensen's duct. I am not able to objectively appreciate any swelling in the face or significant asymmetry. Family points to his right cheek back to where the parotid is as where she thinks it looks more prominent than the other side. normocephalic and atraumatic Eyes PERRL and EOMs intact bilaterally Neck full ROM, no lymphadenopathy and supple Resp normal respiratory effort and clear to auscultation bilaterally Cardio regular rate, regular rhythm and no murmurs Rate: other Other Details: Borderline tachycardic GI non-distended Back/Spine no CVA tenderness General Back: other FROM Extremity normal to inspection General Extremety ED: Negative for edema, pulses abnormal or tenderness General Extremity: Negative for edema or pulses abnormal Neuro oriented x3, CN's II-XII intact bilaterally and no sensory deficits noted Neuro Narrative: Mild tremor Sensorium / Orientation: awake and alert Motor Exam: strength 5/5 throughout Psych mental status grossly normal Skin no rashes or lesions noted and no wounds MDM MDM MDM Narrative Medical decision making narrative: Initial vitals, he is very hypertensive and tachycardic. I had nursing repeat that now that he is here resting in room, blood pressure 144/108 and pulse 101. He has a very mild hand tremor. He has not had alcohol since last night, currently is 2030 and I suspect that these vital signs are related to some mild alcohol withdrawal. I have them check his blood sugar it is 236. I ordered some basic labs to evaluate for the possibility of metabolic etiologies while simultaneously paging otolaryngology to discuss. I spoke with Dr. Kang. He states he is her symptoms of acute sensorineural hearing loss, recommends prednisone to be started soon as possible which we did,he recommends 50 mg today for 5 days and then tapering down. We do not have the50 mg tablets here so I started him on 60 today, he is a type I diabetic he understands this may make his blood sugars go high but he has a pump so that should help him control them. His labs show a suppressed bicarb level, however he is well-appearing and his vital signs have remained stable, and I do not think he has any signs or symptoms of DKA. He has a working insulin pump and his blood sugar came back at a similar level on the chemistries, I am comfortable with him going home and following up and we discussed reasons to return. Lab Data Attestation: I reviewed the patient's lab results. Labs: Laboratory Results - last 24 hr 02/07/25 02/07/25 20:34 21:05 WBC 9.5 RBC 4.42 L Hgb 14.1 Hct 40.8 MCV 92.3 MCH 31.9 MCHC 34.6 RDW Std Deviation 44.9 H RDW Coeff of Last 13.2 Plt Count 144 L MPV 10.2 Immature Gran % (Auto) 0.600 Neut % (Auto) 80.1 H Lymph % (Auto) 11.0 L Carlton % (Auto) 7.8 Eos % (Auto) 0.1 Baso % (Auto) 0.4 Absolute Neuts (auto) 7.6 Absolute Lymphs (auto) 1.05 Nucleated RBC % 0 Sodium 140 Potassium 4.3 Chloride 99 Carbon Dioxide 17.6 L Anion Gap 23 H BUN 12 Creatinine 1.10 Estim Creat Clear Calc 112.99 Est GFR (MDRD) Non-Af 94 BUN/Creatinine Ratio 11.3 Glucose 245 H Calcium 9.5 POC Glucose 236 H Management Discussion w/another healthcare provider: Investigation Clerk ([facility]) Discharge Plan Triage Chief Complaint: Ear Problem ED Provider: Lavell Patel Dx/Rx/DC Orders Clinical Impression: Sensorineural hearing loss (SNHL) of right ear, Hyperglycemia due to type 1 diabetes mellitus Instructions: Understanding Hearing Loss Prescriptions: New prednisone 10 mg tablet 10 mg PO UD Qty: 38 0RF Rx Instructions: Take 5 tablets daily for 4 days, then 3 daily for 3 days, then 2 daily for 3 days, then 1 a day for 3 days No Action amlodipine-benazepril 5-10 mg capsule 1 cap PO QDAY (DME) blood pressure monitor [Blood Pressure Kit] Kit See Rx Instructions .Route Qty: 1 0RF Rx Instructions: As directed ondansetron 8 mg tablet,disintegrating 8 mg PO Q8H PRN (Reason: nausea and vomiting) Qty: 20 0RF insulin lispro [Humalog U-100 Insulin] 100 unit/mL solution 100 unit subcut .COMPLEX Rx Instructions: basal rate 0.5, sliding scale ac/hs, insulin pump ondansetron 4 mg tablet,disintegrating 4 mg PO Q8H PRN PRN (Reason: Nausea) Qty: 15 0RF (DME) Dexcom G7 Sensor Device See Rx Instructions .Route Qty: 9 1RF Rx Instructions: As directed (DME) Omnipod 5 G6-G7 Pods (Gen 5) Cartridge See Rx Instructions .Route Qty: 30 1RF Rx Instructions: 1 pod q 72 hours Primary Care Provider: Dexter Daniel Referrals: Buddy Kang MD [Med Staff - Active Staff] - As soon as possible Activity Restrictions/Additional Instructions: Can start prescription 02/08/2025 since you received the initial dose in the ED. Prednisone is just once daily. Print Language: Cymro Disposition Disposition: Home, Self Care What to do if you have Problems For any increased pain, shortness of breath, bleeding, nausea or vomiting, chestpain, or any unexpected problems, contact your Primary Care Provider. Call [facility] ([phone]) or report to the closest Emergency Room. Call 911 if necessary. 02/07/252233 <Electronically signed by Lavell Patel MD> Cosigner Signature (if applicable): CC: Dr. Buddy Kang MD; Dr. Dexter Daniel MD ~ Signed [facility] Work Phone: [phone]) 865-288408-30-2025 Discharge summary [facility] Medical Records Department [address] [place] [address] Emergency Department Summary 01/22/25 MR#: [id number] Acct: [id number] Name: JORGE HOLLIS Rep #:[id number] : 1995 29 From: Ammon Nice MD PCP: Dr. Dexter Daniel MD Status:RE G ER Location: ED HPI History of Present Illness Chief Complaint: Hypoglycemia Narrative Narrative: 29-year-old male past medical history of diabetes, has an insulin pump, presentswith hypoglycemia and nausea since yesterday evening. History and physical is limited as patient tends to say I do notremember. He states he does not feelwell. His girlfriend is at the bedside who states that they went to the guardian's game yesterday, and the patient was able to drive them to an back home. He dropped her off. She called him at 1130 this morning, few hours ago, and noticed that he had more of a mental status change. He was not feeling well. He cannot recall if he has been vomiting or what he ate last. She statesthat she looked on his insulin pump and he gave himself a bolus of 0.5 units andruns at the basal rate. He may take Humalog exogenously. Per EMS, his blood sugars today prior to arrival around 56. He was bolused glucose, and now has blood sugar in the 1 teens. He presents with hypoglycemia and nausea. [facility] Medical History History of diabetes mellitus Anxiety Alcohol abuse Alcohol dependence Depression Presence of insulin pump Diabetes mellitus type 1 High cholesterol Vitamin D deficiency HTN (hypertension) Home Medications ?Medication ?Instructions ?Recorded ?Last Taken ?Type amlodipine 5 mg-benazepril 10 mg 1 cap PO QDAY 4 Unknown History capsule ondansetron 8 mg disintegrating 8 mg PO Q8H PRN nausea and 09/04/23 Unknown Rx tablet vomiting #20 tabs blood pressure monitor (Blood #1 ea 06/15/24 Unknown R x Pressure Kit) blood-glucose sensor (Dexcom G7 #9 ea 10/22/24 Unknown Rx Sensor device) insulin pump cart,auto,BT,G6/7 #30 ea 12/29/24 Unknown Rx (Omnipod 5 G6-G7 Pods (Gen 5) subcutaneous cartridge) insulin lispro 100 unit/mL 100 unit subcut .COMPLEX Unknown History subcutaneous solution (Humalog U-100 Insulin) ondansetron 4 mg disintegrating 4 mg PO Q8H PRN PRN Na usea #15 tabs 01/22/25 Unknown Rx tablet Allergy/AdvReac Type Severity Reaction Status Date / Time No Known Allergies Allergy Verified 01/22/25 12:29 Family History Mother Hypertension Surgical History No history of previous surgery Social History household members: none housing: apartment Smoking Status: Never smoker alcohol intake: current alcohol intake frequency: a few times a week Alcohol type: beer and hard liquor substance use type: does not use ROS ROS ED ROS Narrative Review of systems positive for low blood sugar, nausea, shakiness, and mental status change. No recent fevers or chills. Questionable vomiting. No exacerbating or alleviating factors. EXAM Physical Exam Narrative Exam Narrative: Afebrile. Vital signs noted. Nontoxic-appearing. Cardiovascular examination reveals mild tachycardia. Lungs are clear to auscultation bilaterally. Abdomenis soft and nontender without guarding or rebound. Positive bowel sounds. Neurological examination nonfocal, nonlateralizing. No pedal edema. Const Vital Signs: 01/22/25 12:29 01/22/25 12:32 01/22/25 13:29 Temperature 98.1 F Temperature Source Oral Pulse Rate 125 H 104 H Respiratory Rate 28 H 20 H Respiratory Effort Normal Non-Labored Respiratory Pattern Normal Blood Pressure 134/93 H 129/89 H Blood Pressure Mean 106 102 Pulse Ox 100 100 Oxygen Delivery Method Room Air Room Air 01/22/25 14:00 01/22/25 15:00 01/22/25 16:00 Temperature Temperature Source Pulse Rate 83 23 L 100 Respiratory Rate 17 16 Respiratory Effort Respiratory Pattern Blood Pressure 139/93 H 149/102 H 126/80 H Blood Pressure Mean 108 117 95 Pulse Ox 100 100 100 Oxygen Delivery Method Room Air Room Air 01/22/25 17:00 01/22/25 18:00 Temperature Temperature Source Pulse Rate 77 Respiratory Rate Respiratory Effort Respiratory Pattern Blood Pressure 156/80 H 146/111 H Blood Pressure Mean 105 122 Pulse Ox Oxygen Delivery Method MDM MDM MDM Narrative Medical decision making narrative: Differential diagnosis includes but not limited to hypoglycemia versus decreasedp.o. intake with insulin use versus pancreatitis versus gastritis. Will not bolus the patient secondary to his hypoglycemia. He was only able to eat a small amount of juice of the cookie here. He will be not withdrawn. I will check a CBC, CMP, and lipase. He should probably turn off his insulin pump. His girlfriend stated that she did this for him. Initially, on arrival his blood sugar was 56 and after D10 and was 148. However, on his BMP it was only 65. I reviewed his other laboratory work and hehas normal white count 7.3 with hemoglobin 14.5,hematocrit 41.6, platelet [id number]. Electrolyte panel is otherwise unremarkable except for carbon dioxide low at 14.8, sodium 144, potassium normal at 3.5, AST and ALT slightly elevated at 133 and 129 which I think is nonspecific. Lipase normal at 62 so I doubt pancreatitis. Blood glucose [id number]. Patient will be encouraged to continue regular diet/p.o. challenge. He will be observed in the emergency department and his glucose rechecked prior to discharge. He states that the only insulin he gets is through his insulin pump and once again his girlfriend reiterates that he was last bolused 0.5units yesterday evening. Given his mental status change and reported confusion, I obtained a CT of the brain and reviewed the radiology report. It shows no acute process. Rechecked his lipase and it has not increased. Urine for drugs of abuse is negative. Blood alcohol level is slightly elevated at 36. I had a discussion with the patient and his girlfriend. Given his elevation in alcohol level, it issuspected that he may have gone home and drink alcohol. Review of his prior record does show admission for detox. Upon repeat examination, he states that his nausea and vomiting may have been from his increased blood sugar. However, he was having nausea and vomiting prior to this. He was allowed toturn on his insulin pump and bolus his insulin as he states that he enters his blood sugar and it boluses him appropriately. At approximately 1840, reexamined shows him improved. I offered him detox for alcohol but he declined. He was warned of any withdrawal symptoms, but states he feels vastly improved. He is not tachycardic currently. 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 Return instructions to the emergency departmentwere reviewed. Patient is motivated for discharge and would like to go home. Return instructions were reviewed. Disposition is discharged home in stable condition. History & Record Review Discussion w/independent historian: Patient and Significant other Additional record(s) reviewed:: Prior ED visit Lab Data Attestation: I reviewed the patient's lab results. Labs: Laboratory Results - last 24 hr 01/22/25 01/22/25 01/22/25 12:15 12:32 13:06 WBC 7.3 RBC 4.49 L Hgb 14.5 Hct 41.6 MCV 92.7 MCH 32.3 H MCHC 34.9 RDW Std Deviation 43.8 RDW Coeff of Last 12.9 Plt Count 185 MPV 10.2 Immature Gran % (Auto) 0.100 Neut % (Auto) 59.2 Lymph % (Auto) 27.4 Carlton % (Auto) 11.8 H Eos % (Auto) 0.5 Baso % (Auto) 1.0 Absolute Neuts (auto) 4.3 Absolute Lymphs (auto) 2.00 Nucleated RBC % 0 Sodium 144 Potassium 3.5 Chloride 99 Carbon Dioxide 14.8 L Anion Gap 30 H BUN 7 Creatinine 0.90 Estim Creat Clear Calc 138.10 Est GFR (MDRD) Non-Af 120 BUN/Creatinine Ratio 7.7 L Glucose 65 L Calcium 9.7 Total Bilirubin 0.55 AST 133 H ALT 129 H Alkaline Phosphatase 99 Total Protein 7.2 Albumin 4.6 Globulin 2.6 Albumin/Globulin Ratio 1.8 Lipase 62 Urine Opiates Screen U Buprenorphine Qual Ur Oxycodone Screen Urine Methadone Screen Urine Fentanyl Screen Ur Barbiturates Screen Ur Phencyclidine Scrn Ur Amphetamines Screen U Benzodiazepines Scrn Urine Cocaine Screen U Cannabinoids Screen Ethyl Alcohol POC Glucose 56 L 148 H 01/22/25 01/22/25 01/22/25 13:22 13:58 15:06 WBC RBC Hgb Hct MCV MCH MCHC RDW Std Deviation RDW Coeff of Last Plt Count MPV Immature Gran % (Auto) Neut % (Auto) Lymph % (Auto) Carlton % (Auto) Eos % (Auto) Baso % (Auto) Absolute Neuts (auto) Absolute Lymphs (auto) Nucleated RBC % Sodium Potassium Chloride Carbon Dioxide Anion Gap BUN Creatinine Estim Creat Clear Calc Est GFR (MDRD) Non-Af BUN/Creatinine Ratio Glucose Calcium Total Bilirubin AST ALT Alkaline Phosphatase Total Protein Albumin Globulin Albumin/Globulin Ratio Lipase 66 Urine Opiates Screen U Buprenorphine Qual Ur Oxycodone Screen Urine Methadone Screen Urine Fentanyl Screen Ur Barbiturates Screen Ur Phencyclidine Scrn Ur Amphetamines Screen U Benzodiazepines Scrn Urine Cocaine Screen U Cannabinoids Screen Ethyl Alcohol 36.6 H POC Glucose 180 H 01/22/25 01/22/25 01/22/25 15:31 16:11 16:40 WBC RBC Hgb Hct MCV MCH MCHC RDW Std Deviation RDW Coeff of Last Plt Count MPV Immature Gran % (Auto) Neut % (Auto) Lymph % (Auto) Carlton % (Auto) Eos % (Auto) Baso % (Auto) Absolute Neuts (auto) Absolute Lymphs (auto) Nucleated RBC % Sodium Potassium Chloride Carbon Dioxide Anion Gap BUN Creatinine Estim Creat Clear Calc Est GFR (MDRD) Non-Af BUN/Creatinine Ratio Glucose Calcium Total Bilirubin AST ALT Alkaline Phosphatase Total Protein Albumin Globulin Albumin/Globulin Ratio Lipase Urine Opiates Screen NEGATIVE U Buprenorphine Qual NEGATIVE Ur Oxycodone Screen NEGATIVE Urine Methadone Screen NEGATIVE Urine Fentanyl Screen NEGATIVE Ur Barbiturates Screen NEGATIVE Ur Phencyclidine Scrn NEGATIVE Ur Amphetamines Screen NEGATIVE U Benzodiazepines Scrn NEGATIVE Urine Cocaine Screen NEGATIVE U Cannabinoids Screen NEGATIVE Ethyl Alcohol POC Glucose 310 H 337 H 01/22/25 18:20 WBC RBC Hgb Hct MCV MCH MCHC RDW Std Deviation RDW Coeff of Last Plt Count MPV Immature Gran % (Auto) Neut % (Auto) Lymph % (Auto) Carlton % (Auto) Eos % (Auto) Baso % (Auto) Absolute Neuts (auto) Absolute Lymphs (auto) Nucleated RBC % Sodium Potassium Chloride Carbon Dioxide Anion Gap BUN Creatinine Estim Creat Clear Calc Est GFR (MDRD) Non-Af BUN/Creatinine Ratio Glucose Calcium Total Bilirubin AST ALT Alkaline Phosphatase Total Protein Albumin Globulin Albumin/Globulin Ratio Lipase Urine Opiates Screen U Buprenorphine Qual Ur Oxycodone Screen Urine Methadone Screen Urine Fentanyl Screen Ur Barbiturates Screen Ur Phencyclidine Scrn Ur Amphetamines Screen U Benzodiazepines Scrn Urine Cocaine Screen U Cannabinoids Screen Ethyl Alcohol POC Glucose 249 H Radiography Diagnostic Testing: Clinical Impression(s) from Imaging Studies Brain CT 01/22/25 15:21 IMPRESSION: 1. Normal CT brain without contrast. 2. Multifocal sinusitis. Reading Location: [id number] Discharge Plan Triage Chief Complaint: Hypoglycemia Other Complaint: Syncope ED Provider: Ammon Nice Dx/Rx/DC Orders Clinical Impression: Presence of insulin pump, ETOH abuse, Nausea and vomiting, Gastritis Instructions: ED Gastritis (Adult), ED Diabetic Insulin Reaction, ED Vomiting (Adult), ED Alcohol Abuse Prescriptions: New ondansetron 4 mg tablet,disintegrating 4 mg PO Q8H PRN PRN (Reason: Nausea) Qty: 15 0RF No Action amlodipine-benazepril 5-10 mg capsule 1 cap PO QDAY (DME) blood pressure monitor [Blood Pressure Kit] Kit See Rx Instructions .Route Qty: 1 0RF Rx Instructions: As directed ondansetron 8 mg tablet,disintegrating 8 mg PO Q8H PRN (Reason: nausea and vomiting) Qty: 20 0RF insulin lispro [Humalog U-100 Insulin] 100 unit/mL solution 100 unit subcut .COMPLEX Rx Instructions: basal rate 0.5, sliding scale ac/hs, insulin pump (DME) Dexcom G7 Sensor Device See Rx Instructions .Route Qty: 9 1RF Rx Instructions: As directed (DME) Omnipod 5 G6-G7 Pods (Gen 5) Cartridge See Rx Instructions .Route Qty: 30 1RF Rx Instructions: 1 pod q 72 hours Primary Care Provider: Dexter Daniel Referrals: Dexter Daniel MD [Primary Care Provider] - 3-5 Days if not improving Activity Restrictions/Additional Instructions: Medication as directed. Bolus yourself insulin as you have done in order to control your blood sugars. Make sure that you are eating appropriately. Returnwith intractable nausea and vomiting, increased shakiness, new or worsening symptoms. Print Language: Cymro Disposition Disposition: Home, Self Care What to do if you have Problems For any increased pain, shortness of breath, bleeding, nausea or vomiting, chestpain, or any unexpected problems, contact your Primary Care Provider. Call [facility] ([phone]) or report tothe closest Emergency Room. Call 911 if necessary. 01/22/25 1841 Cosigner Signature (if applicable): CC: Dr. Dexter Daniel MD ~ Signed [facility]08-30-2025 Radiology Diagnostic study note [facility] Imaging Services [address] [place], [place] [id number] Brain/Head without Contrast MR#: [id number] Acct: [id number] Name: JORGE HOLLIS Rep #: [id number] : 1995 M 29 From: Ayan Lund MD PCP: Dr. Dexter Daniel MD Status: RE G ER Study:Brain/Head without Contrast Date of Exa m: 01/22/25 Exam# [id number] Ordering Dr: Ammon Nice MD PROCEDURE: BRAIN/HEAD WITHOUT CONTRAST 01/22/2025 REASON FOR EXAM: AMNESIA TECHNIQUE: Procedure Code: CTBR Modality: CT Procedure: BRAIN/HEAD WITHOUT CONTRAST Coronal and Sagittal reconstruction series were provided. One or more dose reduction techniques were used (e.g., Automated exposure control, adjustment of the mA and/or kV according to patient size, use of iterative reconstruction technique. RADIATION DOSE SUMMARY: CTDlvol: 44.99 mGy DLP: 846.73 mGycm COMPARISON: CT head without contrast, 05/03/2022. FINDINGS: There is no evidence of acute intracranial hemorrhage or infarction. There are no abnormal intracranial masses or mass effects. The ventricular system and basilar cisterns are unremarkable. The skull base and calvarium are normal. 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 There is mucoperiosteal thickening of the right maxillary sinus, multiple ethmoidal air cells in the sphenoid sinuses. There are mucous retention cysts in both sphenoid sinuses. The mastoid air cells are unremarkable. The intraorbital contents are normal. The visualized extracranial soft tissues are normal. CT/Brain/Head without Contrast IMPRESSION: 1. Normal CT brain without contrast. 2. Multifocal sinusitis. Reading Location: [id number] CC: Dr. Ammon Nice MD; Dr. Dexter Daniel MD ~ Technical Laboratory Asst: Signed [facility] Work Phone: 1(218) 942-812308-30-2025 Discharge summary Author Ammon Nice [facility] Note Date/Time January 22, 2025 6: 41pm [facility] Medical Records Department [address] [place] [address] Emergency Department Summary 01/22/25 MR#: [id number] Acct: [id number] Name: BRIAN HOLLISTT DALY Rep #:[id number] : 1995 29 From: Ammon Nice MD PCP: Dr. Dexter Daniel MD Status:RE G ER Location: ED HPI History of Present Illness Chief Complaint: Hypoglycemia Narrative Narrative: 29-year-old male past medical history of diabetes, has an insulin pump, presentswith hypoglycemia and nausea since yesterday evening. History and physical is limited as patient tends to say I do not remember. He states he does not feelwell. His girlfriend is at the bedside who states that they went to the [employer] yesterday, and the patient was able to drive them to an back home. He dropped her off. She called him at 1130 this morning, few hours ago, and noticed that he had more of a mental status change. He was not feeling well. He cannot recall if he has been vomiting or what he ate last. She statesthat she looked on his insulin pump and he gave himself a bolus of 0.5 units andruns at the basal rate. He may take Humalog exogenously. Per EMS, his blood sugars today prior to arrival around 56. He was bolused glucose, and now has blood sugar in the 1 teens. He presents with hypoglycemia and nausea. [facility] Medical History History of diabetes mellitus Anxiety Alcohol abuse Alcohol dependence Depression Presence of insulin pump Diabetes mellitus type 1 High cholesterol Vitamin D deficiency HTN (hypertension) Home Medications ?Medication ?Instructions ?Recorded ?Last Taken ?Type amlodipine 5 mg-benazepril 10 mg 1 cap PO QDAY 4 Unknown History capsule ondansetron 8 mg disintegrating 8 mg PO Q8H PRN nausea and 09/04/23 Unknown Rx tablet vomiting #20 tabs blood pressure monitor (Blood #1 ea 06/15/24 Unknown R x Pressure Kit) blood-glucose sensor (Dexcom G7 #9 ea 10/22/24 Unknown Rx Sensor device) insulin pump cart,auto,BT,G6/7 #30 ea 12/29/24 Unknown Rx (Omnipod 5 G6-G7 Pods (Gen 5) subcutaneous cartridge) insulin lispro 100 unit/mL 100 unit subcut .COMPLEX Unknown History subcutaneous solution (Humalog U-100 Insulin) ondansetron 4 mg disintegrating 4 mg PO Q8H PRN PRN Na usea #15 tabs 01/22/25 Unknown Rx tablet Allergy/AdvReac Type Severity Reaction Status Date / Time No Known Allergies Allergy Verified 01/22/25 12:29 Family History Mother Hypertension Surgical History No history of previous surgery Social History household members: none housing: apartment Smoking Status: Never smoker alcohol intake: current alcohol intake frequency: a few times a week Alcohol type: beer and hard liquor substance use type: does not use ROS ROS ED ROS Narrative Review of systems positive for low blood sugar, nausea, shakiness, and mental status change. No recent fevers or chills. Questionable vomiting. No exacerbating or alleviating factors. EXAM Physical Exam Narrative Exam Narrative: Afebrile. Vital signs noted. Nontoxic-appearing. Cardiovascular examination reveals mild tachycardia. Lungs are clear to auscultation bilaterally. Abdomenis soft and nontender without guarding or rebound. Positive bowel sounds. Neurological examination nonfocal, nonlateralizing. No pedal edema. Const Vital Signs: 01/22/25 12:29 01/22/25 12:32 01/22/25 13:29 Temperature 98.1 F Temperature Source Oral Pulse Rate 125 H 104 H Respiratory Rate 28 H 20 H Respiratory Effort Normal Non-Labored Respiratory Pattern Normal Blood Pressure 134/93 H 129/89 H Blood Pressure Mean 106 102 Pulse Ox 100 100 Oxygen Delivery Method Room Air Room Air 01/22/25 14:00 01/22/25 15:00 01/22/25 16:00 Temperature Temperature Source Pulse Rate 83 23 L 100 Respiratory Rate 17 16 Respiratory Effort Respiratory Pattern Blood Pressure 139/93 H 149/102 H 126/80 H Blood Pressure Mean 108 117 95 Pulse Ox 100 100 100 Oxygen Delivery Method Room Air Room Air 01/22/25 17:00 01/22/25 18:00 Temperature Temperature Source Pulse Rate 77 Respiratory Rate Respiratory Effort Respiratory Pattern Blood Pressure 156/80 H 146/111 H Blood Pressure Mean 105 122 Pulse Ox Oxygen Delivery Method MDM MDM MDM Narrative Medical decision making narrative: Differential diagnosis includes but not limited to hypoglycemia versus decreasedp.o. intake with insulin use versus pancreatitis versus gastritis. Will not bolus the patient secondary to his hypoglycemia. He was only able to eat a small amount of juice of the cookie here. He will be not withdrawn. I will check a CBC, CMP, and lipase. He should probably turn off his insulin pump. His girlfriend stated that she did this for him. Initially, on arrival his blood sugar was 56 and after D10 and was 148. However, on his BMP it was only 65. I reviewed his other laboratory work and hehas normal white count 7.3 with hemoglobin 14.5, hematocrit 41.6, platelet . Electrolyte panel is otherwise unremarkable except for carbon dioxide low at 14.8, sodium 144, potassium normal at 3.5, AST and ALT slightly elevated at 133 and 129 which I think is nonspecific. Lipase normal at 62 so I doubt pancreatitis. Blood glucose currently 180. Patient will be encouraged to continue regular diet/p.o. challenge. He will be observed in the emergency department and his glucose rechecked prior to discharge. He states that the only insulin he gets is through his insulin pump and once again his girlfriend reiterates that he was last bolused 0.5 units yesterday evening. Given his mental status change and reported confusion, I obtained a CT of the brain and reviewed the radiology report. It shows no acute process. Rechecked his lipase and it has not increased. Urine for drugs of abuse is negative. Blood alcohol level is slightly elevated at 36. I had a discussion with the patient and his girlfriend. Given his elevation in alcohol level, it is suspected that he may have gone home and drink alcohol. Review of his prior record does show admission for detox. Upon repeat examination, he states that his nausea and vomiting may have been from his increased blood sugar. However, he was having nausea and vomiting prior to this. He was allowed to turn on his insulin pump and bolus his insulin as he states that he enters his blood sugar and it boluses him appropriately. At approximately 1840, reexamined shows him improved. I offered him detox for alcohol but he declined. He was warned of any withdrawal symptoms, but states he feels vastly improved. He is not tachycardic currently. 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 Return instructions to the emergency department were reviewed. Patient is motivated for discharge and would like to go home. Return instructions were reviewed. Disposition is discharged home in stable condition. History & Record Review Discussion w/independent historian: Patient and Significant other Additional record(s) reviewed:: Prior ED visit Lab Data Attestation: I reviewed the patient's lab results. Labs: Laboratory Results - last 24 hr 01/22/25 01/22/25 01/22/25 12:15 12:32 13:06 WBC 7.3 RBC 4.49 L Hgb 14.5 Hct 41.6 MCV 92.7 MCH 32.3 H MCHC 34.9 RDW Std Deviation 43.8 RDW Coeff of Last 12.9 Plt Count 185 MPV 10.2 Immature Gran % (Auto) 0.100 Neut % (Auto) 59.2 Lymph % (Auto) 27.4 Carlton % (Auto) 11.8 H Eos % (Auto) 0.5 Baso % (Auto) 1.0 Absolute Neuts (auto) 4.3 Absolute Lymphs (auto) 2.00 Nucleated RBC % 0 Sodium 144 Potassium 3.5 Chloride 99 Carbon Dioxide 14.8 L Anion Gap 30 H BUN 7 Creatinine 0.90 Estim Creat Clear Calc 138.10 Est GFR (MDRD) Non-Af 120 BUN/Creatinine Ratio 7.7 L Glucose 65 L Calcium 9.7 Total Bilirubin 0.55 AST 133 H ALT 129 H Alkaline Phosphatase 99 Total Protein 7.2 Albumin 4.6 Globulin 2.6 Albumin/Globulin Ratio 1.8 Lipase 62 Urine Opiates Screen U Buprenorphine Qual Ur Oxycodone Screen Urine Methadone Screen Urine Fentanyl Screen Ur Barbiturates Screen Ur Phencyclidine Scrn Ur Amphetamines Screen U Benzodiazepines Scrn Urine Cocaine Screen U Cannabinoids Screen Ethyl Alcohol POC Glucose 56 L 148 H 01/22/25 01/22/25 01/22/25 13:22 13:58 15:06 WBC RBC Hgb Hct MCV MCH MCHC RDW Std Deviation RDW Coeff of Last Plt Count MPV Immature Gran % (Auto) Neut % (Auto) Lymph % (Auto) Carlton % (Auto) Eos % (Auto) Baso % (Auto) Absolute Neuts (auto) Absolute Lymphs (auto) Nucleated RBC % Sodium Potassium Chloride Carbon Dioxide Anion Gap BUN Creatinine Estim Creat Clear Calc Est GFR (MDRD) Non-Af BUN/Creatinine Ratio Glucose Calcium Total Bilirubin AST ALT Alkaline Phosphatase Total Protein Albumin Globulin Albumin/Globulin Ratio Lipase 66 Urine Opiates Screen U Buprenorphine Qual Ur Oxycodone Screen Urine Methadone Screen Urine Fentanyl Screen Ur Barbiturates Screen Ur Phencyclidine Scrn Ur Amphetamines Screen U Benzodiazepines Scrn Urine Cocaine Screen U Cannabinoids Screen Ethyl Alcohol 36.6 H POC Glucose 180 H 01/22/25 01/22/25 01/22/25 15:31 16:11 16:40 WBC RBC Hgb Hct MCV MCH MCHC RDW Std Deviation RDW Coeff of Last Plt Count MPV Immature Gran % (Auto) Neut % (Auto) Lymph % (Auto) Carlton % (Auto) Eos % (Auto) Baso % (Auto) Absolute Neuts (auto) Absolute Lymphs (auto) Nucleated RBC % Sodium Potassium Chloride Carbon Dioxide Anion Gap BUN Creatinine Estim Creat Clear Calc Est GFR (MDRD) Non-Af BUN/Creatinine Ratio Glucose Calcium Total Bilirubin AST ALT Alkaline Phosphatase Total Protein Albumin Globulin Albumin/Globulin Ratio Lipase Urine Opiates Screen NEGATIVE U Buprenorphine Qual NEGATIVE Ur Oxycodone Screen NEGATIVE Urine Methadone Screen NEGATIVE Urine Fentanyl Screen NEGATIVE Ur Barbiturates Screen NEGATIVE Ur Phencyclidine Scrn NEGATIVE Ur Amphetamines Screen NEGATIVE U Benzodiazepines Scrn NEGATIVE Urine Cocaine Screen NEGATIVE U Cannabinoids Screen NEGATIVE Ethyl Alcohol POC Glucose 310 H 337 H 01/22/25 18:20 WBC RBC Hgb Hct MCV MCH MCHC RDW Std Deviation RDW Coeff of Last Plt Count MPV Immature Gran % (Auto) Neut % (Auto) Lymph % (Auto) Carlton % (Auto) Eos % (Auto) Baso % (Auto) Absolute Neuts (auto) Absolute Lymphs (auto) Nucleated RBC % Sodium Potassium Chloride Carbon Dioxide Anion Gap BUN Creatinine Estim Creat Clear Calc Est GFR (MDRD) Non-Af BUN/Creatinine Ratio Glucose Calcium Total Bilirubin AST ALT Alkaline Phosphatase Total Protein Albumin Globulin Albumin/Globulin Ratio Lipase Urine Opiates Screen U Buprenorphine Qual Ur Oxycodone Screen Urine Methadone Screen Urine Fentanyl Screen Ur Barbiturates Screen Ur Phencyclidine Scrn Ur Amphetamines Screen U Benzodiazepines Scrn Urine Cocaine Screen U Cannabinoids Screen Ethyl Alcohol POC Glucose 249 H Radiography Diagnostic Testing: Clinical Impression(s) from Imaging Studies Brain CT 01/22/25 15:21 IMPRESSION: 1. Normal CT brain without contrast. 2. Multifocal sinusitis. Reading Location: [facility] Discharge Plan Triage Chief Complaint: Hypoglycemia Other Complaint: Syncope ED Provider: Ammon Nice Dx/Rx/DC Orders Clinical Impression: Presence of insulin pump, ETOH abuse, Nausea and vomiting, Gastritis Instructions: ED Gastritis (Adult), ED Diabetic Insulin Reaction, ED Vomiting (Adult), ED Alcohol Abuse Prescriptions: New ondansetron 4 mg tablet,disintegrating 4 mg PO Q8H PRN PRN (Reason: Nausea) Qty: 15 0RF No Action amlodipine-benazepril 5-10 mg capsule 1 cap PO QDAY (DME) blood pressure monitor [Blood Pressure Kit] Kit See Rx Instructions .Route Qty: 1 0RF Rx Instructions: As directed ondansetron 8 mg tablet,disintegrating 8 mg PO Q8H PRN (Reason: nausea and vomiting) Qty: 20 0RF insulin lispro [Humalog U-100 Insulin] 100 unit/mL solution 100 unit subcut .COMPLEX Rx Instructions: basal rate 0.5, sliding scale ac/hs, insulin pump (DME) Dexcom G7 Sensor Device See Rx Instructions .Route Qty: 9 1RF Rx Instructions: As directed (DME) Omnipod 5 G6-G7 Pods (Gen 5) Cartridge See Rx Instructions .Route Qty: 30 1RF Rx Instructions: 1 pod q 72 hours Primary Care Provider: Dexter Daniel Referrals: Dexter Daniel MD [Primary Care Provider] - 3-5 Days if not improving Activity Restrictions/Additional Instructions: Medication as directed. Bolus yourself insulin as you have done in order to control your blood sugars. Make sure that you are eating appropriately. Returnwith intractable nausea and vomiting, increased shakiness, new or worsening symptoms. Print Language: Cymro Disposition Disposition: Home, Self Care What to do if you have Problems For any increased pain, shortness of breath, bleeding, nausea or vomiting, chestpain, or any unexpected problems, contact your Primary Care Provider. Call [facility] ([phone]) or report to the closest Emergency Room. Call 911 if necessary. 01/22/25 1841 <Electronically signed by Ammon Nice MD> Cosigner Signature (if applicable): CC: Dr. Dexter Daniel MD ~ Signed [facility] Work Phone: 1(346) 254-332010-08-2024 Nurse Note* Esther Pablo RN - 03/02/2024 12:22 PM EDT Discharge Note: 03/02/2024 1219 AVS and pt [...] a good handle on it. Tiera RN [facility]10-08-2024 Nurse Note* Esther Pablo RN - 03/02/2024 12:22 PM EDT Discharge Note: 03/02/2024 1219 AVS and pt [...] on it. Tiera RN [facility] Work Phone: 1(886) 482-858910-08-2024 History of Present illness Narrative* Eric Kennedy, PedroD - 03/02/2024 12:20 PM EDT Medication Education Medication education for Jorge Hollis [...] Additional Notes (if applicable): Patient's pharmacy is [facility] in [place], [place] Eric Kennedy PharmD * Tavon Stevenson RRT - 03/01/2024 6:51 PM EDT VBG results reported to the physician: 7.34/22/49/11.9 documented in this [facility] Work Phone: [phone] 691-662810-07-2024 History and physical note* Dafne Ramos MD - 03/01/2024 8:42 PM EDT History Of Present Illness Jorge Hollis is [...] 113 Temp 36.2 C (97.2 F) (Temporal) Resp18 Wt 88.5 kg (195 lb) SpO2 96% Relevant Results Assessment/Plan Assessment & Plan DKA, type 1, not at goal DKA Type 1 diabetes on insulin pump KATI Acidemia -aggressive hydration -monitor lytes -continue insulin pump/CGM Pancreatitis -imaging suspicious, elevated lipase -symptomatic management for now -monitor, advance diet as able once DKA resolved HTN HLD -continue home lotrel, toprol, crestor Dafne Ramos MD [facility] Work Phone: [phone] History and physical note* Dafne Ramos MD - 03/01/2024 8:42 PM EDT History Of Present Illness Jorge Hollis is [...] 113 Temp 36.2 C (97.2 F) (Temporal) Resp18 Wt 88.5 kg (195 lb) SpO2 96% [...] crestor Dafne Ramos MD [facility] Work Phone: [phone]) 619-549007-22-2024 Evaluation + Plan note* Assessment & Plan Note - Dexter Daniel MD - 12/15/2023 10:24 AM EDTAssociated Problem(s): Hypertension Continue Lotrel plus Toprol aspirin [...] be reviewed by me. Uncontrolled BP has [facility] consequences including heart failure, myocardial infarction, accelerated atherosclerosis and kidney dysfunction. Therapy reviewed and explained. [facility] Work Phone: [phone]) 294-462307-22-2024 Miscellaneous Notes* Assessment & Plan Note - Dexter Daniel MD - 12/15/2023 10:24 AM EDTAssociated Problem(s): Hypertension Continue Lotrel plus Toprol aspirin [...] be reviewed by me. 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 Therapy reviewed and explained. * Assessment & Plan Note - Dexter Daniel MD - 12/15/2023 10:23 AM EDT Associated Problem(s): DM type 2 with diabetic mixed hyperlipidemia (Multi) Low-fat diet * Assessment & Plan Note - Dexter Daniel MD - 12/15/2023 10:23 AM EDT Associated Problem(s): GERD without esophagitis Advised OTC Prilosec * Assessment & Plan Note - Dexter Daniel MD - 12/15/2023 10:23 AM EDT Associated Problem(s): Alcohol abuse Alcoholic liver problem advised B12 folic acid thiamine join AA group cut down or stop alcohol * Assessment & Plan Note - Dexter Daniel MD - 12/15/2023 10:23 AM EDT Associated Problem(s): Gout Drink more water cut down protein and salt given allopurinol 300 mg a day recheck uric acid in 4 weeks keep uric acid less than 6 [facility] Work Phone: [phone]) 528-549207-22-2024 Evaluation + Plan note* Assessment & Plan Note - Dexter Daniel MD - 12/15/2023 10:23 AM EDTAssociated Problem(s): DM type 2 with diabetic mixed hyperlipidemia (Multi) Low-fat diet [facility] Work Phone: [phone]) 768-138507-22-2024 Evaluation + Plan note* Assessment & Plan Note - Dexter Daniel MD - 12/15/2023 10:23 AM EDTAssociated Problem(s): GERD without esophagitis Advised OTC Prilosec [facility] Work Phone: [phone]) 692-827207-22-2024 Evaluation + Plan note* Assessment & Plan Note - Dexter Daniel MD - 12/15/2023 10:23 AM EDTAssociated Problem(s): Alcohol abuse Alcoholic liver problem advised B12 folic acid thiamine join AA group cut down or stop alcohol [facility] Work Phone: [phone]) 412-674607-22-2024 Evaluation + Plan note* Assessment & Plan Note - Dexter Daniel MD - 12/15/2023 10:23 AM EDTAssociated Problem(s): Gout Drink more water cut down protein and salt given allopurinol 300 mg a day recheck uric acid in 4 weeks keep uric acid less than 6 [facility] Work Phone: [phone] 441-916607-22-2024 History of Present illness Narrative* Dexter Daniel MD - 12/15/2023 9:45 AM EDT Subjective Patient ID: Jorge Hollis is a 28 y.o. male who presents for Follow-up (1 week /Go over blood workand ultrasounds ). Assessment/Plan Problem List Items Addressed [...] be reviewed by me. Uncontrolled BP has [facility] consequences including heart failure, myocardial infarction, accelerated [...] and reviewed. Life style changes were discussed, alwaysit works better if we eat plant based diet and plenty of fibres and roughage. Consume adequate amount of water and avoid alcohol, light to moderate physical activities and stress reduction are alwaysbeneficial for ongoing physical well being. Do not [...] complete Result Date: 12/12/2023 Interpreted By: Mukesh Paredes, STUDY: US RENAL COMPLETE; 12/11/2023 12:10 pm INDICATION: Signs/Symptoms:ckd. COMPARISON: None. ACCESSION NUMBER(S): [id number] ORDERING CLINICIAN: DEXTER DANIELS: Grayscale and color Doppler sonographic images of the kidneys were obtained . FINDINGS: RIGHT KIDNEY: The right kidney measures 11.6 cm in length. The renal cortical echogenicity and thickness are within normal limits. No hydronephrosis. No sonographic evidence of nephrolithiasis. LEFT KIDNEY: The left kidney measures 10.6 cm in length. The renal cortical echogenicity and thickness arewithin normal limits. No hydronephrosis. No sonographic evidence of nephrolithiasis. BLADDER: The urinary bladder is unremarkable in appearance. Bilateral ureteral jets visualized. Prevoid volume 220cc, postvoid volume 36 cc. Unremarkable renal ultrasound. Signed by: Mukesh Paredes 12/12/2023 9:44 PM Dictation workstation:[id number] US biliary system Result Date: 12/12/2023 Interpreted By: Mukesh Paredes, STUDY: US BILIARY SYSTEM 12/11/2023 3:51 pm INDICATION: 28 y/o M with Signs/Symptoms:liver pain. COMPARISON: None. ACCESSION NUMBER(S): [id number] ORDERING CLINICIAN: DEXTER DANIEL TECHNIQUE: Routine ultrasound of the right upper quadrant was performed. Static images were obtained for remote interpretation. FINDINGS: LIVER: Craniocaudal length: 17.7 cm, within normal limits of size for age. Echogenicity: Increased Mass: None. BILE DUCTS: Intrahepatic ducts:Non-dilated. Common bile duct diameter: 3 mm. GALLBLADDER: Gallbladder: Normal. Gallstones: None. Gallbladder sludge: None. Gallbladder wall thickening: None. Pericholecystic fluid: None. PANCREAS: Vi sualized portions are unremarkable. RIGHT KIDNEY: Craniocaudal length: 11.4 cm, within normal limits of size for age. No hydronephrosis, hydroureter or focal renal lesion. PERITONEAL FLUID: None seenin the right upper quadrant. Mild hepatomegaly and diffuse steatosis. No focal lesion. No cholelithiasis or ductal dilation. Signed by: Mukesh Paredes 12/12/2023 5:59 PM Dictation workstation: [id number] Charting was completed using voice recognition technology and may include unintended errors. documented in this [facility] Work Phone: 1(349) 129-994407-15-2024 Evaluation + Plan note* Assessment & Plan Note - Dexter Daniel MD - 12/08/2023 2:40 PM EDTAssociated Problem(s): Current mild episode of major depressive disorder without prior episode (CMS- HCC) Not suicidal PHQ less than 4 [facility] Work Phone: 1([phone]) 430-824407-15-2024 Miscellaneous Notes* Assessment & Plan Note - Dexter Daniel MD - 12/08/2023 2:40 PM EDTAssociated Problem(s): Current mild episode of major depressive disorder without prior episode (CMS-HCC) Not suicidal PHQ less than 4 * Assessment & Plan Note - Dexter Daniel MD - 12/08/2023 2:39 PM EDT Associated Problem(s): Alcohol abuse Get ultrasound of the gallbladder liver pancreas and kidney given B12 folic acid thiamine Pepcid and follow-up * Assessment & Plan Note - Dexter Daniel MD - 12/08/2023 2:39 PM EDT Associated Problem(s): Abdominal pain Father had colon cancer personal history of anemia with abdominal pain refer to GI Dr. Vidal for EGD colonoscopy * Assessment & Plan Note - Dexter Daniel MD - 12/08/2023 2:39 PM EDT Associated Problem(s): Hypertension Advise get her Lotrel 5/40 a day plus Toprol 25 mg a day follow-up 2 weeks * Assessment & Plan Note - Dexter Daniel MD - 12/08/2023 2:38 PM EDT Associated Problem(s): DM type 2 with diabetic mixed hyperlipidemia (Multi) CMP CPK lipid once a year [facility] Work Phone: [phone]) [phone] Evaluation + Plan note* Assessment & Plan Note - Dexter Daniel MD - 12/08/2023 2:39 PM EDTAssociated Problem(s): Alcohol abuse Get ultrasound of the gallbladder liver pancreas and kidney given B12 folic acid thiamine Pepcid and follow-up [facility] Work Phone: [phone] Evaluation + Plan note* Assessment & Plan Note - Dexter Daniel MD - 12/08/2023 2:39 PM EDTAssociated Problem(s): Abdominal pain Father had colon cancer personal history of anemia with abdominal pain refer to GI Dr. Vidal for EGD colonoscopy [facility] Work Phone: [phone]) [phone] Evaluation + Plan note* Assessment & Plan Note - Dexter Daniel MD - 12/08/2023 2:39 PM EDTAssociated Problem(s): Hypertension Advise get her Lotrel 5/40 a day plus Toprol 25 mg a day follow-up 2 weeks [facility] Work Phone: [phone] 572-202407-15-2024 Evaluation + Plan note* Assessment & Plan Note - Dexter Daniel MD - 12/08/2023 2:38 PM EDTAssociated Problem(s): DM type 2 with diabetic mixed hyperlipidemia (Multi) CMP CPK lipid once a year [facility] Work Phone: 1([phone]) 660-810007-15-2024 History of Present illness Narrative* Dexter Daniel MD - 12/08/2023 2:15 PM EDT Subjective Patient ID: Jorge Hollis [...] of major depressive disorder without prior episode ([facility]) Not suicidal PHQ less than 4 Relevant [...] may include unintended errors. documented in this [facility] Work Phone: [phone] Discharge summary Author Lavell Ptael [facility] September 04, 2023 10:53am Note Date/Time September 04, 2023 7:5 4am [facility] Medical Records Department [address] [place] [address] Emergency Department Summary 09/04/23 MR#: [id number] Acct: [id number] Name: JORGE HOLLIS Rep #:[id number] : [...] Currently he is at 158. Denies anydyspnea. [facility] Medical History Alcohol abuse Alcohol dependence Anxiety Depression Diabetes mellitus type 1 High cholesterol History of diabetes mellitus HTN (hypertension) Presence of insulin pump Vitamin D deficiency Home Medications Dexcom G6 Assembler Installer General (blood-glucose meter,continuous) #1 ea 11/14/21 [Rx Last [...] 43.0 L Lymph % (Auto) 45.7 H Carlton % (Auto) 9.4 Eos % (Auto) 0.1 [...] pod q 72 hours (DME) Dexcom G6 Assembler Installer General Misc See Rx Instructions .Route Qty: 1 [...] your Primary Care Provider. Call [facility] ([phone]) or report to the closest Emergency Room. Call 911 if necessary. 09/04/23 1053 <Electronically signed by Lavell Patel MD> Cosigner Signature (if applicable): CC: DEXTER DANIEL MD ~ Signed [facility] Work Phone: [phone]) [phone] Evaluation + Plan note* Assessment & Plan [...] uncontrolled DM, pt was educated and explained. [facility] Work Phone: 1([phone]) 541-275001-15-2024 Evaluation + Plan note* Assessment & Plan [...] effects from SSRI and SNRIs but on [employer], they are well tolerated. Please do not [...] helpless or isolated.Detailed discussion was carried out. [facility] Work Phone: [phone] Miscellaneous Notes* Assessment & Plan Note - [...] effects from SSRI and SNRIs but on [employer], they are well tolerated. Please do not [...] discussion was carried out. documented in this [facility] Work Phone: [phone] 120-965701-15-2024 History of Present illness Narrative* Dexter Daniel [...] year Diabetes with complication advised to see intelligence intern defensive line coach and dentist Anxiety depression refer patient to [...] effects from SSRI and SNRIs but on [employer], they are well tolerated. Please do not [...] April dependency program and psych Seen by intelligence intern advised to follow-up with the dietitians intelligence intern reforestation worker and defensive line coach Negative for suicide Negative for jaundice Negative [...] 07/26/2021 263.5 (H) 0.0 - 30.0 ug/mg validation manager Final Creatinine, Urine 07/26/2021 99.8 20.0 - [...] may include unintended errors. documented in this [facility] Work Phone: [phone] 422-853710-28-2023 Progress note Author Colten Crystal [facility] March 22, 2023 10:10am Note Date/Time March 22, 2023 1 0:10am [facility] Medical Records Department [address] [place] [address] Progress Note - Hospitalist 03/22/23 1009 MR#: [id number] Acct: [id number] Name: JORGE HOLLIS Rep #:[id number] : 1995 27 From: Colten ovalle MD PCP: DEXTER DANIEL Status:ADM IN [facility] Subjective Subjective Well, no issues overnight. CIWA [...] DVT: Ambulation Charges/Coding Visit Charges Inpatient E&M: 89204 Subs Hosp L2 03/22/23 1010 <Electronically signed by Colten Crystal MD> Cosigner Signature (if applicable): CC: ~ Signed [facility] Work Phone: [phone]) 235-959610-27-2023 Progress note Author Colten Crystal [facility] March 21, 2023 9:33am Note Date/Time March 21, 2023 9 :33am [facility] Medical Records Department [address] [place] [address] Progress Note - Hospitalist 03/21/23929 MR#: [id number] Acct: [id number] Name: JORGE HOLLIS Rep #:[id number] : 1995 From: Colten ovalle MD PCP: DEXTER DANIEL Status:ADM IN Location: MO3 QS822-5 Subjective Subjective Resting comfortably, had fairly significant [...] DVT: Ambulation Charges/Coding Visit Charges Inpatient E&M: 08419 Subs Hosp L2 03/21/23 0933 <Electronically signed by Colten Crystal MD> Cosigner Signature (if applicable): CC: ~ Signed [facility] Work Phone: [phone] 241-658810-26-2023 History and physical note Author William Bowers [facility] March 20, 2023 7:40am Note Date/Time March 20, 2023 4 :27am [facility] Medical Records Department [address] [facility] [place] [address] H&P Exam - Hospitalist 03/20/23 0424 MR#: [id number] Acct: [id number] Name: JORGE HOLLIS Rep #:[id number] : 1995 27 From: William Bowers MD PCP: DEXTER DANIEL Status:ADM IN [place] [facility] WU757-8 HPI - General General Date of Admission: [...] seizures was from alcohol withdrawal or not. [facility] Medical History Alcohol abuse Alcohol dependence Anxiety [...] 09/25/21 [History Last Taken 09/23/21] Dexcom G6 Assembler Installer General (blood-glucose meter,continuous) #1 ea 11/14/21 [Rx Last [...] 45 minutes. Charges/Coding Visit Charges Inpatient E&M: 92066 Init Hosp L2 03/20/23 0740 <Electronically signed by William Bowers MD> Cosigner Signature (if applicable): CC: Dr. William Bowers MD; DEXTER DANIEL~ Signed [facility] Work Phone: [phone] Discharge summary Author Dafne Cornell [facility] March 20, 2023 5:29am Note Date/Time March 20, 2023 3 :04am [facility] Medical Records Department [address] [place] [address] Emergency Department Summary 03/20/23 MR#: [id number] Acct: [id number] Name: JORGE HLOLIS Rep #:[id number] : 1995 27 From: Dafne Cornell MD PCP: DEXTER DANIEL Status:ADM IN Location: [facility] BS028-9 HPI History of Present Illness Chief Complaint: [...] past that was attributed to alcohol withdrawal. [facility] Medical History Alcohol abuse Alcohol dependence [...] 09/25/21 [History Last Taken 09/23/21] Dexcom G6 Assembler Installer General (blood-glucose meter,continuous) #1 ea 11/14/21 [Rx Last [...] pod q 72 hours (DME) Dexcom G6 Assembler Installer General Misc See Rx Instructions .Route Qty: 1 [...] INSULIN PUMP- VARYING HOURLY BASAL RATE from 3428-1651 1.3 units 0738-3701 1.35 units 5981-8033 1.4 units Rx Instructions: PT HAS INSULIN [...] DANIEL [Other] Disposition Disposition: Acute Care Hospital [facility] What to do if you have Problems For any increased pain, shortness of breath, bleeding, nausea or vomiting, chest pain, or any unexpected problems, contact your Primary Care Provider. Call [facility] ([phone]) or report to the closest Emergency Room. Call 911 if necessary. 03/20/23528 <Electronically signed by Dafne Cornell MD> Cosigner Signature (if applicable): CC: DEXTER DANIEL ~ Signed [facility] Work Phone: [phone]) 333-283505-30-2023 Evaluation + Plan note* Assessment & Plan Note - Dexter Daniel MD - 10/22/2022 3:17 PM EDTAssociated Problem(s): Current mild episode of major depressive disorder without prior episode ([facility]) Depression is chronic and quite common and notorious mental health disorder and it is quite common and widespread, there are several therapeutics available for depression now a days. It is consideredas chemical imbalance disorder and with medications , it can be adjusted. There are side effects from SSRI and SNRIs but on [facility], they are well tolerated. Please do not [...] helpless or isolated.Detailed discussion was carried out. [facility] Work Phone: [phone]) [phone] Miscellaneous Notes* Assessment & Plan Note - [...] effects from SSRI and SNRIs but on [facility], they are well tolerated. Please do not [...] cervical cancer screening refer patient to dentist defensive line coach and dietitian advised to get flu pneumonia [...] be reviewed by me. Uncontrolled BP has [facility] consequences including heart failure, myocardial infarction, accelerated [...] was educated and explained. [facility] [phone]) 331-165005-30-2023 Evaluation + Plan note* Assessment & Plan Note - Dexter Daniel MD - 10/22/2022 3:16 PM EDTAssociated Problem(s): Annual visit for general adult medical examination with abnormal findings 27-year-old male advised skin cancer cervical cancer screening refer patient to dentist defensive line coach and dietitian advised to get flu pneumonia COVID-19 vaccine [facility] Work Phone: [phone] Evaluation + Plan note* Assessment & Plan [...] be reviewed by me. 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 Therapy reviewed and explained. [facility] Work Phone: [phone] Evaluation + Plan note* Assessment & Plan [...] uncontrolled DM, pt was educated and explained. [facility] Work Phone: [phone] History of Present illness Narrative* Dexter Daniel [...] be reviewed by me. 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 Therapy reviewed and explained. Relevant Medications ramipril (Altace) 10 mg capsule Digestive GERD without esophagitis Endocrine/Metabolic DM type 2 with diabetic mixed hyperlipidemia (CMS/HCC) Other Annual visit for general adult medical examination with abnormal findings - Primary 27-year-old male advised skin cancer cervical cancer screening refer patient to dentist defensive line coach and dietitian advised to get flu pneumonia [...] effects from SSRI and SNRIs but on [employer], they are well tolerated. Please do not [...] 07/26/2021 263.5 (H) 0.0 - 30.0 ug/mg validation manager Final Creatinine, Urine 07/26/2021 99.8 20.0 - [...] may include unintended errors. documented in this [facility] Work Phone: [phone] 345-215002-21-[address] Hopper [facility] July 15, 2022 11:58pm Note Date/Time July 15, 2022 9:49pm [facility] Medical Records Department [address] [place] [address] Emergency Department Summary 07/15/22 MR#: [id number] Acct: [id number] Name: JORGE HOLLIS Rep #:[id number] : [...] 09/25/21 [History Last Taken 09/23/21] Dexcom G6 Assembler Installer General (blood-glucose meter,continuous) #1 ea 11/14/21 [Rx Last [...] 77.3 H Lymph % (Auto) 8.3 L Carlton % (Auto) 12.8 H Eos % (Auto) [...] 30-74 minutes, Including time spent:,Discussing w/Patient &/or Family/Revenue Manager, Discussing w/Consultants, ArrangingAdmission or Transfer, Performing Direct Patient Care at Bedside and - (35 min) Discharge Plan Dx/Rx/DC Orders Clinical Impression: Diabetic keto-acidosis, History of diabetes mellitus, High anion gap metabolic acidosis, Acute kidney injury Disposition Disposition: Acute Care Hospital [facility] What to do if you have Problems For any increased pain, shortness of breath, bleeding, nausea or vomiting, chestpain, or any unexpected problems, contact your Primary Care Provider. Call [facility] ([phone]) or report to the closest Emergency Room. Call 911 if necessary. 07/15/22 9474 <Electronically signed by Jed Hopper MD> Cosigner Signature (if applicable): CC: DEFINED NOT ~ Signed [facility] Work Phone: 1([phone]) 372-281002-21-2023 History and physical note Author Dr. Cedillo [facility] July 15, 2022 11:43pm Note Date/Time July 15, 2022 11:43pm [facility] Medical Records Department [address] [place] [address] H&P Exam - Hospitalist 07/15/22 7575 MR#: [id number] Acct: [id number] Name: JORGE HOLLIS Rep #:[id number] : 1995 27 From: Teresa Cedillo MD PCP: NOT,DEFINED Status:ADM IN Location: ICU CVICU20 4-1 HPI - General General Date of Admission: 07/15/22 Date of Service: 07/15/22 HPI Narrative JORGE HOLLIS, is a 27-year-old male with history of type 1 diabetes on an insulin pump, hypertension, alcohol abuse recently here for detox, who [facility]2022 feeling as though he was going [...] insulin pods, hepicked up long-acting insulin from [facility] on Friday and was using that and [...] has not drank in over a week. [facility] Medical History Alcohol abuse Alcohol dependence Anxiety [...] 09/25/21 [History Last Taken 09/23/21] Dexcom G6 Assembler Installer General (blood-glucose meter,continuous) #1 ea 11/14/21 [Rx Last [...] 77.3 H, Lymph % (Auto) 8.3 L, Carlton % (Auto) 12.8 H, Eos % (Auto) [...] documentation, 60minutes Charges/Coding Visit Charges Inpatient E&M: 96546 Init Hosp L2 07/15/22 2343 <Electronically signed by Teresa Cedillo MD> Cosigner Signature (if applicable): CC: DEFINED NOT; Dr. Teresa Cedillo MD~ Signed [facility] Work Phone: [phone]) 519-919002-20-[address] Hopper [facility] July 15, 2022 11:58pm Note Date/Time July 15, 2022 9:49pm [facility] Medical Records Department [address] [place], [place] [address] [address] Emergency Department Summary 07/15/22 MR#: [id number] Acct: [id number] Name: JORGE HOLLIS Rep #:[id number] : [...] Prior similar symptoms: Yes [facility] Medical History Alcohol abuse Alcohol dependence Anxiety [...] 09/25/21 [History Last Taken 09/23/21] Dexcom G6 Assembler Installer General (blood-glucose meter,continuous) #1 ea 11/14/21 [Rx Last [...] 77.3 H Lymph % (Auto) 8.3 L Carlton % (Auto) 12.8 H Eos % (Auto) [...] 30-74 minutes, Including time spent:,Discussing w/Patient &/or Family/Revenue Manager, Discussing w/Consultants, ArrangingAdmission or Transfer, Performing Direct Patient Care at Bedside and - (35 min) Discharge Plan Dx/Rx/DC Orders Clinical Impression: Diabetic keto-acidosis, History of diabetes mellitus, High anion gap metabolic acidosis, Acute kidney injury Disposition Disposition: Acute Care Hospital [facility] What to do if you have Problems For any increased pain, shortness of breath, bleeding, nausea or vomiting, chestpain, or any unexpected problems, contact your Primary Care Provider. Call [facility] ([phone]) or report to the closest Emergency Room. Call 911 if necessary. 07/15/22 4764 <Electronically signed by Jed Hopper MD> Cosigner Signature (if applicable): CC: DEFINED NOT ~ Signed [facility] Work Phone: [phone]) [phone] Corrales [facility] July 03, 2022 10:46pm Note Date/Time July 03, 2022 5 :54pm [facility] Medical Records Department [address] [place] [address] Emergency Department Summary 07/03/22 MR#: [id number] Acct: [id number] Name: JORGE HOLLIS Rep #:[id number] : [...] does not have any trouble swallowing orbreathing. [facility] Medical History Alcohol abuse Alcohol dependence [...] 09/25/21 [History Last Taken 09/23/21] Dexcom G6 Assembler Installer General (blood-glucose meter,continuous) #1 ea 11/14/21 [Rx Last [...] pod q 72 hours (DME) Dexcom G6 Assembler Installer General Misc See Rx Instructions .Route Qty: 1 [...] INSULIN PUMP- VARYING HOURLY BASAL RATE from 0001-4864 1.3 units 9730-5258 1.35 units 5563-7925 1.4 units Rx Instructions: PT HAS INSULIN [...] your Primary Care Provider. Call [facility] ([phone]) or report to the closest Emergency Room. Call 911 if necessary. 07/03/222245 <Electronically signed by Dipesh Corrales DO> Cosigner Signature (if applicable): CC: Dexter Daniel MD ~ Signed [facility] Work Phone: [phone] Murphy [facility] June 19, 2022 2:27pm Note Date/Time June 19, 2022 2 :27pm [facility] Medical Records Department [address] [place] [address] Progress Note - Hospitalist 06/19/22 1424 MR#: [id number] Acct: [id number] Name: JORGE HOLLIS Rep #:[id number] : 1995 27 From: Osiris Murphy DO PCP: Care Physician,No Primary Status :ADM IN Location: [facility]3 ZT564-1 Subjective Subjective Patient states he still feels [...] from 12-24 beers daily along with 4 Silverton's -Never been through detox previously -Continue phenobarbital [...] insulin -Patient's current pump rate is 1.1 gzbefn-uyn-puovs as he had some further issues with hypoglycemia intermittently throughout the day yesterday -Will talk to his intelligence intern prior to discharge to see if we [...] -Full code Charges/Coding Visit Charges Inpatient E&M: 82262 Subs Hosp L2 06/19/22 1427 <Electronically signed by Osiris Murphy DO> Aminataer Signature (if applicable): CC: ~ Signed [facility] Work Phone: [phone] Murphy [facility] June 18, 2022 3:02pm Note Date/Time June 18, 2022 3 :02pm [facility] Medical Records Department [address] [place] [address] Progress Note - Hospitalist 06/18/22 1455 MR#: [id number] Acct: [id number] Name: JORGE HOLLIS Rep #:[id number] : 1995 27 From: Osiris Murphy DO PCP: Care Physician,No Primary Status :ADM IN Location: [facility]3 GC759-3 Subjective Subjective Patient states overall he is [...] from 12-24 beers daily along with 4 Silverton's -Never been through detox previously -Continue phenobarbital [...] -Full code Charges/Coding Visit Charges Inpatient E&M: 65909 Subs Hosp L2 06/18/22 1502 <Electronically signed by Osiris Murphy DO> Cosigner Signature (if applicable): CC: ~ Signed [facility] Work Phone: [phone]) [phone] History and physical note Author Dr. Murphy [facility] June 17, 2022 1:52pm Note Date/Time June 17, 2022 9 :52am [facility] Medical Records Department [address] [place] [address] H&P Exam - Hospitalist 06/17/22 0951 MR#: [id number] Acct: [id number] Name: JORGE HOLLIS Rep #:[id number] : 1995 27 From: Osiris Murphy DO PCP: Care Physician,No Primary Status :ADM IN Location[place] [facility] YP959-4 HPI - General General Date of Admission: 06/17/22 Date of Service: 06/17/22 Chief Complaint: EtOH Detox HPI Narrative JORGE HOLLIS, is a 27 M who presented to emergency department [facility] on 06/17/2021 requesting alcohol detox. Patient reports that he has been drinking anywhere from 12-24 beers and 4 Silverton's per day for a long time. The [...] given initial dose ofphenobarbital for alcohol withdrawal. [facility] Medical History Alcohol abuse Anxiety Depression Diabetes [...] 09/25/21 [History Last Taken 09/23/21] Dexcom G6 Assembler Installer General (blood-glucose meter,continuous) #1 ea 11/14/21 [Rx Last [...] % (Auto) 52.8, Lymph % (Auto) 36.5, Carlton % (Auto) 8.2, Eos % (Auto) 1.5, [...] from 12-24 beers daily along with 4 Silverton's -Never been through detox previously -Start phenobarbital [...] -Full code Charges/Coding Visit Charges Inpatient E&M: 12216 Init Hosp L3 06/17/22 1352 <Electronically signed by Osiris Murphy DO> Cosigner Signature (if applicable): CC: Dr. Osiris Murphy DO; No Primary Care Physician~ Signed [facility] Work Phone: [phone]) [phone] Patel [facility] June 17, 2022 9:52am Note Date/Time June 17, 2022 8 :18am [facility] Medical Records Department [address] [place] [address] Emergency Department Summary 06/17/22 MR#: [id number] Acct: [id number] Name: TELMAJORGE DALY Rep #:[id number] : [...] issues other than the diabetes and hypertension. [facility] Medical History Depression Diabetes mellitus type 1 [...] 09/25/21 [History Last Taken 09/23/21] Dexcom G6 Assembler Installer General (blood-glucose meter,continuous) #1 ea 11/14/21 [Rx Last [...] % (Auto) 52.8 Lymph % (Auto) 36.5 Carlton % (Auto) 8.2 Eos % (Auto) 1.5 [...] (Auto) Neut % (Auto) Lymph % (Auto) Carlton % (Auto) Eos % (Auto) Baso % [...] Alcohol withdrawal Disposition Disposition: Acute Care Hospital [facility] What to do if you have Problems For any increased pain, shortness of breath, bleeding, nausea or vomiting, chestpain, or any unexpected problems, contact your Primary Care Provider. Call [facility] ([phone]) or report to the closest Emergency Room. Call 911 if necessary. 06/17/22 0952 <Electronically signed by Lavell Patel MD> Cosigner Signature (if applicable): CC: No Primary Care Physician ~ Signed [facility] Work Phone: [phone]) [phone] Patel [facility] June 17, 2022 9:52am Note Date/Time June 17, 2022 8 :18am [facility] Medical Records Department [address] [place] [address] Emergency Department Summary 06/17/22 MR#: [id number] Acct: [id number] Name: JORGE HOLLIS Rep #:[id number] : [...] issues other than the diabetes and hypertension. [facility] Medical History Depression Diabetes mellitus type 1 [...] 09/25/21 [History Last Taken 09/23/21] Dexcom G6 Assembler Installer General (blood-glucose meter,continuous) #1 ea 11/14/21 [Rx Last [...] % (Auto) 52.8 Lymph % (Auto) 36.5 Carlton % (Auto) 8.2 Eos % (Auto) 1.5 [...] (Auto) Neut % (Auto) Lymph % (Auto) Carlton % (Auto) Eos % (Auto) Baso % [...] Alcohol withdrawal Disposition Disposition: Acute Care Hospital [facility] What to do if you have Problems For any increased pain, shortness of breath, bleeding, nausea or vomiting, chestpain, or any unexpected problems, contact your Primary Care Provider. Call [facility] ([phone]) or report to the closest Emergency Room. Call 911 if necessary. 06/17/22951 <Electronically signed by Lavell Patel MD> Cosigner Signature (if applicable): CC: No Primary Care Physician ~ Signed [facility] Work Phone: [phone]) [phone] NotePatient Outreach (COVAMN) JORGE HOLLIS ([id number]) 1995 M Date Time Provider Department 07/28/20 CARINE SAVAGE During your visit today, we recorded the following information about you: Allergies As of Date: 07/28/2020 (No Known Allergies) Date Reviewed: 09/07/2019 Reviewed by: Patrick Rankin - Fully Assessed Order(s):SARS-COVID VACCINE 1ST DOSE APPT [[id number]] Order #: [id number] FUTURE Prescriptions as of 07/28/2020 Sig: INSULIN [...] 09/07/2019 Encounter Status:Closed by FELISA GREENFIELD on 07/31/20[facility] Discharge summary Author Dr. Murphy [facility] June 20, 2022 1:23pm Note Date/Time June 20, 2022 1 :08pm [facility] Medical Records Department [address] [place], [place] [address] [address] Discharge Summary 06/20/22 1306 MR#: [id number] Acct: [id number] Name: JORGE HOLLIS Rep #:[id number] : 1995 27 From: Osiris Murphy DO PCP: Care Physician,No Primary Status :ADM IN Location: [facility] UZ266-0 Providers Date of Admission: 06/17/22 Date of [...] PO DAILY blood pressure 09/25/21 Dexcom G6 Assembler Installer General (blood-glucose meter,continuous) #1 ea 11/14/21 Dexcom G6 [...] who presented to the emergency department at [facility] on 06/17/2019 2 in the morning for alcohol withdrawal. Patient reported that he is drinking for a long time. It sounds like its been 6 to 7 years. He indicated he drank anywhere from 12-24 beers daily as well as 4 Silverton's. He had never been through formal detox [...] hospitalization. I did have conversation with his intelligence intern prior to discharge and she suggested we continue on his basal rate at 1.1 and have him keep track of his sugars and call them on Friday morning and let them know what his sugars had been running since discharge. He was evaluated by 180 with the plan to follow-up at [facility] at the time of discharge. He [...] pod q 72 hours (DME) Dexcom G6 Assembler Installer General Misc See Rx Instructions .Route Qty: 1 [...] INSULIN PUMP- VARYING HOURLY BASAL RATE from 4231-8697 1.3 units 4061-5434 1.35 units 0034-5332 1.4 units Rx Instructions: PT HAS INSULIN [...] Care Physician,No Primary [Primary Care Provider] - [facility] Doctor,Out of [Non-Staff] - Disposition Disposition (needs filled in before D/C Order can be placed): Home, Self Care Charges/Coding Visit Charges Inpatient E&M: 41009 Disch Hosp >30min 06/20/22 1323 <Electronically signed by Osiris Murphy DO> Cosigner Signature (if applicable): CC: Dr. Osiris Murphy DO; No Primary Care Physician~ Signed [facility] Work Phone: Discharge summary Author Dr. Murphy [facility] July 16, 2022 11:19am Note Date/Time July 16, 2022 11:05am [facility] Medical Records Department [address] [place] [address] Discharge Summary 07/16/22 1105 MR#: [id number] Acct: [id number] Name: JORGE HOLLIS Rep #:[id number] : [...] PO DAILY blood pressure 09/25/21 Dexcom G6 Assembler Installer General (blood-glucose meter,continuous) #1 ea 11/14/21 Dexcom G6 [...] insulin pods. [facility] and was using that [...] I discussed the case with his primary intelligence intern, Dr. Ontiveros, and she recommended that we [...] 77.3 H, Lymph % (Auto) 8.3 L, Carlton % (Auto) 12.8 H, Eos % (Auto) [...] pod q 72 hours (DME) Dexcom G6 Assembler Installer General Misc See Rx Instructions .Route Qty: 1 [...] INSULIN PUMP- VARYING HOURLY BASAL RATE from 1188-6674 1.3 units 0916-1644 1.35 units 2918-9802 1.4 units Rx Instructions: PT HAS INSULIN [...] Self Care Charges/Coding Visit Charges Inpatient E&M: 35297 Disch Hosp >30min 07/16/22 1119 <Electronically signed by Osiris Murphy DO> Cosigner Signature (if applicable): CC: Dr. Osiris Murphy DO~ Signed [facility] Work Phone: Discharge summary Author Colten Crystal [facility] March 23, 2023 9:15am Note Date/Time March 23, 2023 9 :13am [facility] Medical Records Department [address] [place] [address] Instructions for Home/Discharge Instructions 03/23/23912 MR#: [id number] Acct: [id number] Name: JORGE HOLLIS Rep #:[id number] : [...] Attending Provider: Colten Crystal Primary Care Provider: EDXTER DANIEL Consulting Providers: William Bowers Discharge Orders/Prescriptions Prescriptions: Continued (DME) Omnipod 5 G6 Intro Kit (Gen 5) Cartridge See Rx Instructions .Route Qty: 1 0RF Rx Instructions: As directed (DME) Omnipod 5 G6 Pods (Gen 5) Cartridge See Rx Instructions .Route Qty: 30 1RF Rx Instructions: 1 pod q 72 hours (DME) Dexcom G6 Assembler Installer General Misc See Rx Instructions .Route Qty: 1 [...] INSULIN PUMP- VARYING HOURLY BASAL RATE from 1954-2046 1.3 units 7035-0972 1.35 units 9510-7818 1.4 units Rx Instructions: PT HAS INSULIN [...] William Bowers MD; DEXTER DANIEL ~ Signed [facility] Work Phone: Discharge summary Author Colten Crystal [facility] March 23, 2023 9:22am Note Date/Time March 23, 2023 9 :20am [facility] Medical Records Department [address] [place] [address] Discharge Summary 03/23/23915 MR#: [id number] Acct: [id number] Name: JORGE HOLLIS Rep #:[id number] : 1995 27 From: Colten ovalle MD PCP: DEXTER DANIEL Status:AD[facility] Providers Date of Admission: 03/20/23 Primary Care [...] PO DAILY blood pressure 09/25/21 Dexcom G6 Assembler Installer General (blood-glucose meter,continuous) #1 ea 11/14/21 Dexcom G6 [...] pod q 72 hours (DME) Dexcom G6 Assembler Installer General Misc See Rx Instructions .Route Qty: 1 [...] INSULIN PUMP- VARYING HOURLY BASAL RATE from 2400-1230 1.3 units 8151-1569 1.35 units 3659-7904 1.4 units Rx Instructions: PT HAS INSULIN [...] Self Care Charges/Coding Visit Charges Inpatient E&M: 22645 Disch Hosp >30min 03/23/23921 <Electronically signed by Colten Crystal MD> Cosigner Signature (if applicable): CC: Dr. Colten Crystal MD; DEXTER DANIEL~ Signed [facility] Work Phone: Evaluation note* Diagnosis Onset Date Resolution Status Acute hyperkalemia acute Acute renal failure acute Diabetic ketoacidosis associ ated with type 1 diabetes mellitus acute DKA (diabetic ketoacidoses) acute Leukocytosis acute Sinus tachycardia acute [facility] Work Phone: Evaluation note* Diagnosis Onset Date Resolution Status HTN (hypertension) chronic [facility] Work Phone: Evaluation noteNo assessment information available [facility] Work Phone: Evaluation note* Diagnosis Onset Date Resolution Status Diabetes mellitus type 1 acu te Presence of insulin pump acu te HTN (hypertension) chronic [facility] Work Phone: Evaluation note* Diagnosis Onset Date Resolution Status Diabetes mellitus type 1 acu te Presence of insulin pump acu te HTN (hypertension) chronic Alcohol dependence acute Alcohol withdrawal acute [facility] Work Phone: Evaluation note* Diagnosis Onset Date Resolution Status Diabetes mellitus type 1 acu te Presence of insulin pump acu te HTN (hypertension) chronic Alcohol dependence acute Alcohol withdrawal acute Alcoholic hepatitis acute Dehydration acute [facility] Work Phone: Evaluation note* Diagnosis Onset Date Resolution Status Diabetes mellitus type 1 acu te Presence of insulin pump acu te HTN (hypertension) chronic Alcohol withdrawal resolved Alcoholic hepatitis resolved Dehydration resolved [facility] Work Phone: Evaluation note* Diagnosis Onset Date Resolution Status Diabetes mellitus type 1 acu te Presence of insulin pump acu te HTN (hypertension) chronic Alcohol withdrawal resolved Alcoholic hepatitis resolved Dehydration resolved Acute kidney injury acute Diabetic keto-acidosis acute High anion gap metabolic acidosis acute History of diabetes mellitus acute [facility] Work Phone: Evaluation note* Diagnosis Annual visit for general adult medical examination with abnormal findings- Primary 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) Current mild episode of major depressive disorder without prior episode (CMS/HCC) Hypertension, unspecified type DM type 2 with diabetic mixed hyperlipidemia (CMS/HCC) GERD without esophagitis Esophageal reflux documented in this encounter [facility] Work Phone: Evaluation note* Diagnosis Onset Date Resolution Status Desire for detoxification ac shikha Diabetes mellitus type 1 acu te ETOH abuse acute Presence of insulin pump acu te [facility] Work Phone: Evaluation note* Diagnosis Alcohol abuse- Primary Nondependent alcohol abuse, unspecified drinking behavior Fatigue due to depression 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) Current mild episode of major depressive disorder without prior episode (CMS/HCC) Hypertension, unspecified type DM type 2 with diabetic mixed hyperlipidemia (CMS/HCC) Abdominal pain, unspecified abdominal location GERD without esophagitis Esophageal reflux documented in this encounter [facility] Work Phone: Evaluation note* Diagnosis Onset Date Resolution Status Diabetes mellitus type 1 chr onic HTN (hypertension) chronic Presence of insulin pump chr onic [facility] Work Phone: Evaluation note* Diagnosis Annual visit [...] pancreatitis, unspecified complication status, unspecified pancreatitis type ([facility]) Hypertension, unspecified type documented in this encounter [facility] Work Phone: Evaluation note* Diagnosis [...] esophagitis Esophageal reflux documented in this encounter [facility] Work Phone: Evaluation note* Diagnosis [...] of major depressive disorder without prior episode ([facility]) Hypertension, unspecified type DM type 2 with [...] unspecified abdominal location documented in this encounter [facility] Work Phone: Evaluation note* Diagnosis Annual visit for general adult medical examination with abnormal findings- Primary 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) Current mild episode of major depressive disorder without prior episode ([facility]) Hypertension, unspecified type DM type 2 with diabetic mixed hyperlipidemia (Multi) GERD without esophagitis Esophageal reflux Alcohol abuse- Primary Nondependent alcohol abuse, unspecified drinking behavior Fatigue due to depression 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) Current mild episode of major depressive disorder without prior episode ([facility]) Hypertension, unspecified type DM type 2 with [...] unspecified CKD stage documented in this encounter [facility] Work Phone: Evaluation note* Diagnosis [...] of major depressive disorder without prior episode ([facility]) Hypertension, unspecified type DM type 2 with [...] Hypertension, unspecified type documented in this encounter [facility] Work Phone: History and physical note Author Dr. Cedillo [facility] July 15, 2022 11:43pm Note Date/Time July 15, 2022 11:43pm [facility] Medical Records Department [address] [place] [address] H&P Exam - Hospitalist 07/15/22 6013 MR#: [id number] Acct: [id number] Name: JORGE HOLLIS Rep #:[id number] : 1995 27 From: Teresa Cedillo MD PCP: NOT,DEFINED Status:ADM IN Location: ICU CVICU20 4-1 HPI - General General Date of Admission: 07/15/22 Date of Service: 07/15/22 HPI Narrative JORGE HOLLIS, is a 27-year-old male with history of type 1 diabetes on an insulin pump, hypertension, alcohol abuse recently here for detox, who [facility] 07/15/2022 feeling as though he was going [...] insulin pods, [facility] and was using that [...] has not drank in over a week. [facility] Medical History Alcohol abuse Alcohol dependence Anxiety [...] 09/25/21 [History Last Taken 09/23/21] Dexcom G6 Assembler Installer General (blood-glucose meter,continuous) #1 ea 11/14/21 [Rx Last [...] 77.3 H, Lymph % (Auto) 8.3 L, Carlton % (Auto) 12.8 H, Eos % (Auto) [...] documentation, 60minutes Charges/Coding Visit Charges Inpatient E&M: 27392 Init Hosp L2 07/15/22 2343 <Electronically signed by Teresa Cedillo MD> Cosigner Signature (if applicable): CC: DEFINED NOT; Dr. Teresa Cedillo MD~ Signed [facility] Work Phone: History of Present illness [...] chart treatment plan discussI spent 15 minutes [id number] I spent 15 minutes [id number]. This patient discussing cardiovascular risk and behavior [...] aspirin refer patient to Dr. Gabriela Lyn intelligence intern and Dr. Chang defensive line coach [facility] Medicine Work Phone: History of Present illness [...] test follow-up in 6 to 8 weeks [facility] Work Phone: History of Present illness [...] Negative for jaundice * Negative for bleeding [facility] Work Phone: History of Present illness Narrative* 27-year-old patient of hypertension hyperlipidemia diabetes alcohol abuse multiple hospitalization because of alcohol withdrawal and detox program and a DKA * Seen by psych and intelligence intern * Because of underlying mental health problem and other problem not able to function well * Negative for suicide * Negative for drug abuse * Review hospital record discussed with the patient and family and [facility] Internal Medicine Work Phone: Hospital Discharge instructions Additional Instructions Avoid use of mirtazapine, and have your medication changed secondary to its side effects. Perform nystatin oral swish and swallow 4 times a day for the next 7 days and follow-up with your primary care provider.[facility] Work Phone: Hospital Discharge instructions* Attachments The following attachments cannot be sent through Care Everywhere. * Diabetes and diet ([facility]) * Diabetic Ketoacidosis Discharge Instructions ([facility]) [facility] Hospital Discharge instructionsAdditional Instructions Medication as directed. Bolus yourself insulin as you have done in order to control your blood sugars. Make sure that you are eating appropriately. Return with intractable nausea and vomiting, increased shakiness, new or worsening symptoms.[facility] Work Phone: Hospital Discharge instructionsAdditional Instructions Can start prescription 02/08/2025 since you received the initial dose in the ED. Prednisone is just once daily.[facility] Work Phone: Reason for referral (narrative)* Consultation (Routine) - Authorized Specialty Diagnoses / Procedures Referred By Lurdes puentes Referred To Contact Primary Care Procedures Follow Up In Primary Care Dexter Daniel MD [address] [place] [address] Referral ID Status Reason Start Date Expiration Date V isits Requested Visits Authorized [id number] Authorized 10/22/2022 04/20/2023 1 1 * Consultation (Routine) - Authorized Specialty Diagnoses / Procedures Referred By Lurdes puentes Referred To Contact Primary Care Procedures Follow Up In Primary Care Dexter Daniel MD [address] [place] [id number] Referral ID Status Reason Start Date Expiration Date V isits Requested Visits Authorized [id number] Authorized 10/22/2022 04/20/2023 1 1 [facility] Work Phone: Reason for referral (narrative)No reason for referral [facility] Work [facility]: Summary Purpose Family History No [...] September 25, 2021 8: 30pm Power of Ux Ui Designer No September 25, 2021 8:30pm Advance Directive Response Recorded Date/ Time Advance Directives No December 29 015 2:43pm Living Will No January 29 022 10:12am Power of Ux Ui Designer No January 29, 2022 10:12am Advance Directive Response Recorded Date/ Time Advance Directives No December 29 015 1:43pm Living Will No May 03 1:29pm Power of Ux Ui Designer No May 03, 2022 1:29pm Advance Directive Response Recorded Date/ Time Advance Directives No December 29 015 1:43pm Living Will No June 01 2:26pm Power of Ux Ui Designer No June 01 023 2:26pm Advance Directive Response Recorded Date/ Time Advance Directives No December 29 015 1:43pm Living Will No June 17 7:58am Power of Ux Ui Designer No June 17, 2022 7:58am Advance Directive Response Recorded Date/ Time Advance Directives No December 29 015 1:43pm Living Will No June 17 11:46am Power of Ux Ui Designer No June 17, 2022 11:46am Advance Directive Response Recorded Date/ Time Advance Directives No December 29 1:43pm Living Will No July 03 5:50pm Power of Ux Ui Designer No July 03, 2022 5:50pm Advance Directive Response Recorded Date/ Time Advance Directives No December 29 015 1:43pm Living Will No July 15 023 10:09pm Power of Ux Ui Designer No July 15, 2022 10:09pm Advance Directive Response Recorded Date/ Time Advance Directives No December 29 015 1:43pm Living Will No July 16 12:37am Power of Ux Ui Designer No July 16, 2022 12:37am Advance Directive Response Recorded Date/ Time Advance Directives No December 29 2:43pm Living Will No March 20 10:28am Power of Ux Ui Designer No March 20, 2023 10:28am Advance Directive Response Recorded Date/ Time Advance Directives No December 29 2:43pm Living Will No September 04, 2023 8:06am Power of Ux Ui Designer No September 03 8:06am Date Activated Date Inactivated Comments 03/01/2024 9:28 PM Question Answer Comments Plan of Care: Code Status Discussion Completed Decision Maker: Patient Date Activated Date Inactivated Comments 03/01/2024 9:28 PM 03/01/2024 9:28 PM Question Answer Comments Plan of Care: Code Status Discussion Completed Decision Maker: Patient Advance Directive Response Recorded Date/ Time Do you have a Healthcare Power of Ux Ui Designer? No January 22, 2025 12:32pm Advance Directives No December 29 2:43pm Advance Directive Response Recorded Date/ Time Do you have a Healthcare Power of Ux Ui Designer? No January 22, 2025 12:32pm Do you have a Healthcare Power of Ux Ui Designer? No February 07, 2025 8:39pm Advance Directives No December 29 2:43pm Chief Complaint follow up on diabetessore throat, headaches, 2 weeks nowanxiety and depression* follow up * [facility] papers Chief Complaint and Reason for Visit [...] 1 HTN (hypertension) Presence of insulin pump Chief Complaint Admit Date hypoglycemia, syncope January 22, 2025 12:27pm Chief Complaint Admit Date hypoglycemia, syncope January 22, 2025 12:27pm ear February 07, 2025 8:01pm Reason for Referral Specialty Diagnoses / Procedures Referred By Contac t Referred To Contact Radiology Diagnoses Abdominal pain, unspecified abdominal location Procedures US biliary system Dexter Daniel MD [address] [place], [place] [id number] Referral ID Status Reason Start Date Expiration Date Visits Requested Visits Authorized [id number] Authorized Perform Procedure 06/09/2023 06/08/2024 1 1 Referral ID Status Reason Start Date Expiration Date Visits Requested Visits Authorized [id number] Authorized Perform Procedure 12/08/2023 12/07/2024 1 1 Specialty Diagnoses / Procedures Referred By Contac t Referred To Contact Radiology Diagnoses Chronic kidney disease, unspecified CKD stage Procedures US renal complete Dexter Daniel MD [address] [place], [place] [id number] Referral ID Status Reason Start Date Expiration Date Visits Requested Visits Authorized [id number] Authorized Perform Procedure 12/08/2023 12/07/2024 1 1 [...] W/WO M-MODE COMPLETE REST&ST Dexter Daniel MD [address] [place], [place] [id number] Referral ID Status Reason Start Date Expiration Date Visits Requested Visits Authorized [id number] Pending Review Perform Procedure 12/08/2023 12/07/2024 1 1 Specialty Diagnoses / Procedures Referred By Contac t Referred To Contact Gastroenterology Diagnoses Chronic [...] BY HOT BX FORCEPS Dexter Daniel MD [address] [place] [address] Referral ID Status Reason Start Date Expiration Date V isits Requested Visits Authorized [id number] Pending Review 12/08/2023 12/07/2024 1 1 Additional Source Comments (unrecognized sect ion and content) No Status Records FoundNo Status Records FoundNo Status Records FoundNo Status Records FoundNo Status Records FoundNo Status Records FoundNo Status Records FoundNo Status Records FoundNo Status Records Found INFORMATION SOURCE (unrecogn ized section and content) DATE CREATED AUTHOR 11/13/2017 [facility] DATE CREATED AUTHOR AUTHOR'S ORGANIZ ATION 03/09/2018 [facility] DATE CREATED AUTHOR AUTHOR'S ORGANIZ ATION 07/13/2021 [facility] DATE CREATED AUTHOR AUTHOR'S ORGANIZ ATION 07/23/2022 [facility] DATE CREATED AUTHOR AUTHOR'S ORGANIZ ATION 12/17/2023 [facility] DATE CREATED AUTHOR AUTHOR'S ORGANIZ ATION 03/03/2024 [facility] DATE CREATED AUTHOR AUTHOR'S ORGANIZ ATION 03/05/2024 [facility] DATE CREATED AUTHOR AUTHOR'S ORGANIZ ATION 03/18/2024 [facility] DATE CREATED AUTHOR AUTHOR'S ORGANIZ ATION 03/22/2025 [facility] Goals (unrecognized section and content) Goals [...] Active Team Status: Inactive Member Role Status Ammon Nice MD Attending Provider, Emergency Provid [...] Yrn Pollock MD Family Provider Active Dexter Daniel Primary Care Provider Active Team Status: Inactive Member Role Status Dates Dr. Dipesh Corrales DO Emergency Provider Active Fredy Renteria MD Primary Care Provider Active Team Status: Active Member Role Status Dates Dr. Yrn Pollock MD Family Provider Active DEFINED NOT Primary Care Provider Active Team Status: Active Member Role Status Dates DEFINED NOT Primary Care Provider Active Dr. Jed Hopper MD Emergency Provider Active Dr. Teresa Cedillo MD Admit Provider, Attending Provid er Active Professor Of Practice Relationship Specialty Start Date End Date Dexter Daniel MD [address] [facility] [address] [place] [address] PCP - General 07/10/20 Team Status: Active Member Role Status Dates Dr. Yrn Pollock MD Family Provider Active DEXTER DANIEL Primary Care Provider Active Team Status: Active [...] Dr. Colten Crystal MD Attending Provider Active Professor Of Practice Relationship Specialty Start Date End Date Dexter Daniel MD [address] [facility] [place] [address] PCP - MMO ACO PCP 07/24/22 Dexter Daniel MD [address] [place] [place] [address] PCP - General Internal Medicine 06/04/23 Team Status: Inactive Member Role Status Dates Dr. Lavell Patel MD Emergency Provider Active FREDY RENTERIA MD Primary Care Provider Active Professor Of Practice Relationship Specialty Start Date End Date Dexter Daniel MD [address] [facility] [place] [address] PCP - General Internal Medicine 06/04/23 Professor Of Practice Relationship Specialty Start Date End Date Dexter Daniel MD [address] [place] [place] [address] PCP - General Internal Medicine 06/04/23 Professor Of Practice Relationship Specialty Start Date End Date Dexter Daniel MD [address] [place] [place] [address] PCP - General Internal Medicine 06/04/23 Professor Of Practice Relationship Specialty Start Date End Date Dexter Daniel MD [address] [place] [place] [address] PCP - General Internal Medicine 06/04/23 Team Status: Active Member Role/Relationship Status Dates Dr. Dexter Daniel MD Primary Care Provider Active Team Status: Inactive Member Role/Relationship Status Dates Dr. Dexter Daniel MD Primary Care Provider Active Start: January 22, 2025 End: January 22, 2025 Ammon Nice MD Emergency Provider Active Star t: January 22, 2025 End: January 22, 2025 Team Status: Inactive Member Role/Relationship Status Dates Dr. Dexter Daniel MD Primary Care Provider Active Start: January 22, 2025 End: January 22, 2025 Ammon Nice MD Attending Provider Active Star t: January 22, 2025 End: January 22, 2025 Ammon Nice MD Emergency Provider Active Star t: January 22, 2025 End: January 22, 2025 Team Status: Inactive Member Role/Relationship Status Dates Dr. Dexter Daniel MD Primary Care Provider Active Start: February 07, 2025 End: February 07, 2025 Dr. Lavell Patel MD Emergency Provider Active Start: February 07, 2025 End: February 07, 2025 Reason for Visit (unrecogniz ed section and [...] Referred By Lurdes puentes Referred To Contact Diagnoses DKA, type 1, not at goal Acute pancreatitis, unspecified complication status, unspecified pancreatitis type ([facility]) Procedures Dafne Bedoya MD [address] [place] [address] [facility] [address] [place] [address] Referral ID Status Reason Start Date Expiration Date Visits Re quested Visits Authorized [id number] 1 1 Reason Comments Annual Exam GI Problem Vomiting, pain, week ly occurrence. Fatigue Specialty Diagnoses / Procedures Referred By Lurdes puentes Referred To Contact Radiology Diagnoses Abdominal pain, unspecified abdominal location Procedures US biliary system Dexter Daniel MD [address] [place] [address] Referral ID Status Reason Start Date Expiration Date Visits Requested Visits Authorized [id number] Authorized Perform Procedure 12/08/2023 12/07/2024 1 1 Specialty Diagnoses / Procedures Referred By Lurdes puentes Referred To Contact Radiology Diagnoses Chronic kidney disease, unspecified CKD stage Procedures US renal complete Dexter Daniel MD [address] [place] [address] Referral ID Status Reason Start Date Expiration Date Visits Requested Visits Authorized [id number] Authorized Perform Procedure 12/08/2023 12/07/2024 1 1 [...] On Fri03/01/24 at 1820, For 1 dose 1844 (Given - Provider: Marley Moeller RN) ondansetron (Zofran) injection 4 mg (COMPLETED) 4 mg, intravenous, Once, On Fri03/01/24 at 1820, For 1 dose, When administering via IV Push, administer over 3-5 minutes. 184 (Given - Provider: Marley Moeller RN) ondansetron (Zofran) injection 4 mg (COMPLETED) 4 mg, intravenous, Once, On Fri03/01/24 at 2225, For 1 dose, When administering via IV Push, administer over 3-5 minutes. 223 (Given - Provider: Gianfranco Borrero RN) polyethylene [...] On Fri03/01/24 at 1820, For 1 dose 1842 (New Bag - Provider: Marley Moeller RN)1955 (Stopped - Provider: Gianfranco Borrero RN) sodium chloride 0.9 % bolus 1,000 mL (COMPLETED) 1,000 mL, intravenous, at 999 mL/hr, Administer over 1 Hours, Once, On Fri03/01/24 at 2005, For 1 dose 2022 (New Bag - Provider: Gianfranco Borrero RN)2117 (Stopped - Provider: Gianfranco Borrero RN) Continuous Medication Order 02/29/2024 03/01/2024 03/02/2024 dextrose 10 % in water (D10W) infusion (CANCELED) 150 mL/hr, intravenous, Continuous, Starting on Fri03/01/24 at 2120, Initiate when blood glucose less than or equal to 150 mg/dL and anion gap still open. 0122 (New Bag - Provider: Karen Box RN)0437 (Rate/Dose Verify - Provider: Karen Box RN)0625 (Stopped - Provider: Karen Box RN) dextrose 5%-0.45 % sodium chloride infusion (CANCELED) 150 mL/hr, intravenous, Continuous, Starting on Fri03/01/24 at 2120, Initiate when blood glucose between 150 mg/dL - 250 mg/dL. 2149 (New Bag - Provider: Gianfranco Borrero RN) 0006 (Rate/Dose Verify - Provider: Gianfranco Borrero RN)0437 (Rate/Dose Verify - Provider: Karen Box, RN)0625 (Stopped - Provider: Karen Box RN) insulin regular 100 unit/100 mL (1 [...] acting SQ insulin. , Protocol Document: <a href=[email or web address]>, Other Initial [...] see comments, hypoglycemia, Starting on Fri03/01/24 at 8, Administer IV doses over at least 1 minute HYDROmorphone (Dilaudid) tablet 2 mg 2 mg, oral, Every 4 hours PRN, pain severe (7-10), first line, Starting on Fri03/01/24 at 8, If ordered PRN for pain, nurse is [...] BE BASED ON THE PRIMARY CLINICAL RECORDS. [facility] [employer] [facility]. provides no warranty or guarantee of the accuracy or completeness of information in this document.
[2025-05-10 20:57] LABS: AST(SGOT) 97 U/L (<=37); Alanine Aminotransfer ALT/SGPT 103 U/L (<=46); Albumin, Serum 4.6 g/dL (3.5-5.0); Alkaline Phosphatase 96 U/L (40-129); Anion Gap 39 (5-15); BUN 17 mg/dL (4-19); BUN/Creat Ratio 12.5 RATIO (10-20); Calcium,Total 9.7 mg/dL (7.6-11.0); Carbon Dioxide 8.7 mmol/L (21.0-32.0); Chloride 95 mmol/L (98-108); Estimated Creatinine Clearance 92.75 ml/min (50-250); Globulin 2.8 g/dL (2.2-4.2); Glucose 335 mg/dL (70-99); Potassium 4.8 mmol/L (3.3-5.1)
[2025-05-10 21:13] LABS: Differential Comment SCANNED
--- NOTE | 2025-05-10 21:20 | RAD_ITS ---
PROCEDURE: CHEST PA AND LATERAL 05/10/2025 REASON FOR EXAM: CHEST PAIN TECHNIQUE: Procedure Code: RADCXR Modality: DX Procedure: CHEST PA AND LATERAL COMPARISON: 05/03/2022 FINDINGS: Hardware: None. Heart: The heart size is normal. Mediastinum: The mediastinal contour is unremarkable. Lungs: The lungs are clear. No pneumothorax or pleural effusion. Bones: The bones are unremarkable. RAD/Chest PA and Lateral IMPRESSION: NO ACUTE FINDINGS. Reading [facility]
[2025-05-10] MEDS: Insulin Lispro 100 UNIT in 0.9% Normal Saline (100mL Bag) 99 ML CONT INF (21:31)
--- NOTE | 2025-05-10 21:39 | ED.RN ---
paused insulin pump from home.
[2025-05-10] MEDS: 0.9% Normal Saline (1000mL) 1,000 ML 1000 ML IV (22:00)
[2025-05-10] MEDS: Piperacil/Tazobactam 3.375 GM in 0.9% Normal Saline (50mL MB+) 50 ML IV (22:08)
[2025-05-10 22:09] LABS: Troponin T High Sens 2 HR 16 ng/L (<=22)
[2025-05-10 22:16] LABS: Mucous, Urine 0 SEEN /hpf (<or=2+); Red Blood Cells-Urine 0 SEEN /hpf (0-5); Squamous Epithelial Cells - UA 0 SEEN /hpf (0-5)
[2025-05-10 22:30] LABS: Anion Gap 28 (5-15); Carbon Dioxide 12.9 mmol/L (21.0-32.0); Chloride 99 mmol/L (98-108); Potassium 4.7 mmol/L (3.3-5.1)
--- OUTSIDE RECORDS SUMMARY | 2025-05-10 22:34 | XMS RPT_ITS | CCD ---
Author Organization [facility] Care Team Providers Care Channel Development Manager Name Role Phone SILVIA MUNOZ Unavailable Unavailable PHYSICIAN, DEFAULT Unavailable Unavailable PHYSICIAN, DEFAULT Unavailable Unavailable Dexter Daniel Unavailable Unavailable Unavailable Dr. Sachin Kennedy Emergency Provider Dr. Emy Salazar Admit Provider Dr. Emy Salazar Other Provider Dr. Chiquis Irwin Attending Provider Dr. Chiquis Irwin Other Provider [facility] Doctor, Out of Primary Care Provider Dr. Yrn Lira Referring Provider ZEE Boothe Attending Provider Dr. Paul Ontiveros Attending Provider Dr. Lavell Patel Emergency Provider [phone] Care Physician, No Primary Primary Care Provider Unavailable Dr. Osiris Murphy Admit Provider Dr. Osiris Murphy Attending Provider Dr. Osiris Murphy Other Provider NOT, DEFINED Primary Care Provider Unavailabl Dr. Jed Tirado Emergency Provider Dr. Teresa Cedillo Admit Provider Dr. Teresa Cedillo Attending Provider Dr. Teresa Cedillo Other Provider Fredy DELGADO, Dexter D Primary Care Provider Dr. Dafne Cornell Emergency Provider [phone] MUNJAPARA, VALJI Primary Care Provider [phone] [...] Mariepara Dr. Dexter DELGADO Primary Care Provider Ammon Nice MD Emergency Provider Ammon Nice MD Attending Provider Dr. Lavell [...] Primary Care Unavailable Reodica, Ammon Attending Unavailable [facility] Primary [facility] Unavailable Paul Ontiveros Attending Unavailable Paul Ontiveros Referring Unavailable [facility] Unavailable Allergies Allergy Classification Reported Allergen(s) Allergy Type Date of Onset Reaction(s) Facility (1 source) Metoprolol; Translations: [metoprolol] Drug Allergy -[facility] Internal Medicine Work Phone: Medications Current [...] Active Start: 08-15-2023 take 1 capsule by [facility] once daily Amlodipine-Benazepril Active 1 CAP PO [...] As directed Blood-Glucose Meter,Continuo us ([employer]) misc (10 sources) Start: 11-14-2021 Blood-Glucose Meter,Continuous (Dex[employer]) misc Active 0 .Route 1 November 13, 2021 11:00pm As directed Start: 11-14-2021 Blood-Glucose Meter,Continuous ([employer]) misc Active 0 .Route 1 November 14, [...] 0 05/30/2022 06/09/2023 Discontinued (Therapy completed) nystatin 504425 unt/ml oral suspension (2 sources) Polyene Antifungal [...] September 04, 2023 12:00am polyethylene glycol 3350 83047 mg powder for oral solution (1 source) [...] 2021 12:00am 1 transmitter q 90 days Blood-Glucose,Newspaper Peddler,Cont (Dexcom G6 [employer] Peddler) misc (2 sources) Start: 11-14-2021 End: 12-16-2023 Blood-Glucose,Newspaper Peddler,Cont (Dexcom G6 [employer] Peddler) misc Discontinued 0 .Route 1 0 November [...] Brain W/WO Contraston 2024 Brain W/WO Contrast [facility] Imaging Services [address] [place] [address] [id number] Brain W/WO Contrast MR#: [id number] Acct: [id number] Name: JORGE HOLLIS Rep #: [id number] : 1995 M 29 From: Daly Frey PCP: Dr. Dexter Daniel MD Status: REG CLI Study: Brain W/WO Contrast Date of Exam: 03/02/25 Exam# [id number] Ordering Dr: Buddy Kang MD PROCEDURE: BRAIN [...] Chronic appearing paranasal sinus disease. Reading Location: [place] [address] CC: Dr. Buddy Kang MD; Dr. Dexter Daniel MD Decommissioning Well Site Manager: Signed Normal [facility] Absolute lymphocyte countOrd ered By: Lavell Patel on 02-07-2025 Lymphocytes Auto (Unsp spec) [#/Vol] 1.05 10*3/uL 0.83-4.51 [facility] Absolute neutrophil countOrd ered By: Lavell Patel on 02-07-2025 Neutrophils (Bld) [#/Vol] 7.6 10*3/uL 2.0-7.7 [facility] Anion gap in Serum or Plasma Ordered By: Lavell Amanda on 02-07-2025 Anion gap [Moles/Vol] 23 mmol/L High 5-15 [facility] Automated lymphocyte count a s percentage of total leukocytesOrdered By: Lavell Amanda on 02-07-2025 Lymphocytes/100 WBC Auto (Unsp spec) 11.0 % Low 19-41 [facility] BUN/creatinine ratioOrdered By: Lavell Amanda on 02-07-2025 Urea nitrogen/Creatinine [Mass ratio] 11.3 mg/mg 03-14 [facility] Basic Metabolic Profile (BMP )on 02-07-2025 BUN/CRE 11.3 RATIO Normal 03-14 [facility] Comment on above: Performed By: #### L 500.2500 #### [facility] [address] [place], [address] Calcium [Mass/Vol] 9.5 mg/dL Normal 7.6-11.0 [facility] Comment on above: Performed By: #### L 500.2500 #### [facility] [address] [place], [address] Chloride [Moles/Vol] 99 mmol/L Normal 98-108 [facility] Comment on above: Performed By: #### L 500.2500 #### [facility] [address] [place], [address] CO2 [Moles/Vol] 17.6 mmol/L Low 21.0-32.0 [facility] Comment on above: Performed By: #### L 500.2500 #### [facility] [address] [place], [address] Creatinine [Mass/Vol] 1.10 mg/dL Normal 0.70-1.20 [facility] Comment on above: Performed By: #### L 500.2500 #### [facility] [address] [place], [address] ECRCL 112.99 ml/min Normal 50-250 [facility] Comment on above: Performed By: #### L 500.2500 #### [facility] [address] [place], [address] GAP 23 High 5-15 [facility] Comment on above: Performed By: #### L 500.2500 #### [facility] [address] [place], [address] GFR/1.73 sq M.predicted among non-blacks MDRD (S/P/Bld) [Vol rate/Area] 94 mL/min/{1.73_m2} Normal >60 [facility] Comment on above: Result Comment: mL/m in/1.73m2 CKD-EPI Creatinine Equation (2020) Performed By: #### L 500.2500 #### [facility] [address] [place], [address] Glucose [Mass/Vol] 245 mg/dL High 70-99 [facility] Comment on above: Performed By: #### L 500.2500 #### [facility] [address] [place], [address] Potassium [Moles/Vol] 4.3 mmol/L Normal 3.3-5.1 [facility] Comment on above: Performed By: #### L 500.2500 #### [facility] [address] [place], [address] Sodium [Moles/Vol] 140 mmol/L Normal 133-145 [facility] Comment on above: Performed By: #### L 500.2500 #### [facility] [address] [place], [address] Urea nitrogen [Mass/Vol] 12 mg/dL Normal 4-19 [facility] Comment on above: Performed By: #### L 500.2500 #### [facility] [address] [place], [address] Basophil percentageOrdered B y: Lavell Patel on 02-07-2025 Basophils/100 WBC (Bld) 0.4 % 0-1 [facility] Bedside Glucoseon 02-07-2025 FINGERSTICK GLU 236 mg/dL High 74-106 [facility] Comment on above: Result Comment: MERY STAPLETON OF PATIENT CARE PER NURSING PROTOCOL Performed By: #### L 501.080 #### [facility] [address] [place], [address] CBC W/Diff, Automatedon 01-24 Absolute Lymph 1.05 X10 3/uL Normal 0.83-4.51 [facility] Comment on above: Performed By: #### L 501.080 #### [facility] [address] [place], [address] Absolute Neut 7.6 X10 3/uL Normal 2.0-7.7 [facility] Comment on above: Performed By: #### L 501.080 #### [facility] [address] [place], [address] Basophils/100 WBC (Bld) 0.4 % Normal 0-1 [facility] Comment on above: Performed By: #### L 501.080 #### [facility] [address] [place], [address] Eosinophils/100 WBC (Bld) 0.1 % Normal 0-5 [facility] Comment on above: Performed By: #### L 501.080 #### [facility] [address] [place], [address] Erythrocyte distribution width (RBC) [Ratio] 13.2 % Normal 11.6-14.6 [facility] Comment on above: Performed By: #### L 501.080 #### [facility] [address] [place], [address] Hematocrit (Bld) [Volume fraction] 40.8 % Normal 40-54 [facility] Comment on above: Performed By: #### L 501.080 #### [facility] [address] [place], [address] Hemoglobin (Bld) [Mass/Vol] 14.1 g/dL Normal 13.0-16.5 [facility] Comment on above: Performed By: #### L 501.080 #### [facility] [address] [place], [address] IG% 0.600 Normal 0.0-0.9 [facility] Comment on above: Result Comment: IG% - Immature Granulocytes (promyelocytes, myelocytes and metamyelocytes) > 1% indicates that a LEFT SHIFT is Present. Performed By: #### L 501.080 #### [facility] [address] [place], [address] Lymphocytes/100 WBC (Bld) 11.0 % Low 19-41 [facility] Comment on above: Performed By: #### L 501.080 #### [facility] [address] [place], [address] MCH (RBC) [Entitic mass] 31.9 pg Normal 27.0-32.0 [facility] Comment on above: Performed By: #### L 501.080 #### [facility] [address] [place], [address] MCHC (RBC) [Mass/Vol] 34.6 g/dL Normal 32-36 [facility] Comment on above: Performed By: #### L 501.080 #### [facility] [address] [place], [address] MCV (RBC) [Entitic vol] 92.3 fL Normal 80-94 [facility] Comment on above: Performed By: #### L 501.080 #### [facility] [address] [place], [address] Monocytes/100 WBC (Bld) 7.8 % Normal 0-10 [facility] Comment on above: Performed By: #### L 501.080 #### [facility] [address] [place], [address] Neutrophils/100 WBC (Bld) 80.1 % High 47-70 [facility] Comment on above: Performed By: #### L 501.080 #### [facility] [address] [place], [address] Nucleated RBC (Bld) [#/Vol] 0 10*3/uL Normal 0-5 [facility] Comment on above: Performed By: #### L 501.080 #### [facility] [address] [place], [address] Platelet mean volume (Bld) [Entitic vol] 10.2 fL Normal 6.2-12.0 [facility] Comment on above: Performed By: #### L 501.080 #### [facility] [address] [place], [address] Platelets (Bld) [#/Vol] 144 10*3/uL Low 150-450 [facility] Comment on above: Performed By: #### L 501.080 #### [facility] [address] [place], [address] RBC (Bld) [#/Vol] 4.42 10*6/uL Low 4.6-6.2 [facility] Comment on above: Performed By: #### L 501.080 #### [facility] [address] [place], [address] RDW SD 44.9 fl High 35.1-43.9 [facility] Comment on above: Performed By: #### L 501.080 #### [facility] [address] [place], [address] WBC (Bld) [#/Vol] 9.5 10*3/uL Normal 4.4-11.0 [facility] Comment on above: Performed By: #### L 501.080 #### [facility] [address] [place], [address] Carbon dioxide, total [Moles /volume] in Central venous bloodOrdered By: Lavell Patel on 02-07-2025 CO2 [Moles/Vol] 17.6 mmol/L Low 21.0-32.0 [facility] Chloride assayOrdered By: Cheryl Patel on 02-07-2025 Chloride [Moles/Vol] 99 mmol/L 98-108 [facility] Emergency Department Summary on 02-07-2025 Emergency Department Summary [facility] Medical Records Department [address] [place] [address] Emergency Department Summary 02/07/25 MR#: [id number] Acct: [id number] Name: JORGE HOLLIS Rep #: [id number] : 1995 29 From: Lavell Patel MD [...] type I diabetic with an insulin pump. [facility] Medical History Pancreatitis GERD (gastroesophageal reflux disease) [...] effort and (more content not included)... Normal [facility] Eosinophil percentageOrdered By: Lavell Patel on 02-07-2025 Eosinophils/100 WBC (Bld) 0.1 % 0-5 [facility] Erythrocyte distribution wid th ratioOrdered By: Lavell Patel on 02-07-2025 Erythrocyte distribution width (RBC) [Ratio] 13.2 % 11.6-14.6 [facility] Erythrocyte distribution wid th standard deviationOrdered By: Lavell Patel on 02-07-2025 Erythrocyte distribution width (RBC) [Ratio] 44.9 fl High 35.1-43.9 [facility] Glomerular filtration rate ( GFR) estimation/1.73 sq m using serum, plasma, or whole bOrdered By: Lavell Patel on 02-07-2025 GFR/1.73 sq M.predicted among non-blacks MDRD (S/P/Bld) [Vol rate/Area] 94 mL/min/{1.73_m2} >60 [facility] Comment on above: mL/min/1.73m2 CKD-EP I Creatinine Equation (2020) Glucose measurement at bedsi deOrdered By: Lavell Patel on 02-07-2025 Glucose [Mass/Vol] 236 mg/dL High 74-106 [facility] Comment on above: MANAGEMENT OF PATIEN T CARE PER NURSING PROTOCOL Hematocrit Auto (Bld) [Volum e fraction]Ordered By: Lavell Patel on 02-07-2025 Hematocrit (Bld) [Volume fraction] 40.8 % 40-54 [facility] Hemoglobin measurementOrdere d By: Lavell Patel on 02-07-2025 Hemoglobin (Bld) [Mass/Vol] 14.1 g/dL 13.0-16.5 [facility] Immature granulocytes/100 WB C Auto (Bld)Ordered By: Lavell Patel on 02-07-2025 Immature granulocytes/100 WBC (Bld) 0.600 % 0.0-0.9 [facility] Comment on above: IG% - Immature Granu locytes (promyelocytes, myelocytes and metamyelocytes) > 1% indicates that a LEFT SHIFT is Present. MCV (mean corpuscular volume ) determinationOrdered By: Lavell Patel on 02-07-2025 MCV (RBC) [Entitic vol] 92.3 fL 80-94 [facility] Mean corpuscular hemoglobin (MCH) determinationOrdered By: Lavell Patel on 02-07-2025 MCH (RBC) [Entitic mass] 31.9 pg 27.0-32.0 [facility] Mean corpuscular hemoglobin concentration (MCHC) determinationOrdered By: Lavell Patel on 02-07-2025 MCHC (RBC) [Mass/Vol] 34.6 g/dL 32-36 [facility] Mean platelet volume determi nationOrdered By: Lavell Patel on 02-07-2025 Platelet mean volume (Bld) [Entitic vol] 10.2 fL 6.2-12.0 [facility] Monocyte percentageOrdered B y: Lavell Patel on 02-07-2025 Monocytes/100 WBC (Bld) 7.8 % 0-10 [facility] Neutrophil percentageOrdered By: Lavell Patel on 02-07-2025 Neutrophils/100 WBC (Bld) 80.1 % High 47-70 [facility] Nucleated red blood cell per centageOrdered By: Lavell Patel on 02-07-2025 Nucleated RBC/100 WBC (Bld) [Ratio] 0 % 0-5 [facility] Platelet countOrdered By: Cheryl Patel on 02-07-2025 Platelets (Bld) [#/Vol] 144 10*3/uL Low 150-450 [facility] Potassium measurement (mass/ volume)Ordered By: Lavell Patel on 02-07-2025 Potassium (Unsp spec) [Mass/Vol] 4.3 mmol/L 3.3-5.1 [facility] RBC Auto (Bld) [#/Vol]Ordere d By: Lavell Patel on 02-07-2025 RBC (Bld) [#/Vol] 4.42 10*6/uL Low 4.6-6.2 [facility] Serum creatinine measurement (mass/volume)Ordered By: Lavell Patel on 02-07-2025 Creatinine [Mass/Vol] 1.10 mg/dL 0.70-1.20 [facility] Serum glucose measurement (m ass/volume)Ordered By: Lavell Patel on 02-07-2025 Glucose [Mass/Vol] 245 mg/dL High 70-99 [facility] Serum or plasma calcium bucky urement (mass/volume)Ordered By: Lavell Patel on 02-07-2025 Calcium [Mass/Vol] 9.5 mg/dL 7.6-11.0 [facility] Serum or plasma urea nitroge n measurement (mass/volume)Ordered By: Lavell Patel on 02-07-2025 Urea nitrogen [Mass/Vol] 12 mg/dL 4-19 [facility] Sodium levelOrdered By: Ge Patel on 02-07-2025 Sodium [Moles/Vol] 140 mmol/L 133-145 [facility] White blood cell (WBC) count Ordered By: Lavell Patel on 02-07-2025 WBC (Bld) [#/Vol] 9.5 10*3/uL 4.4-11.0 [facility] Absolute lymphocyte countOrd ered By: Ammon Nice on 01-22-2025 Lymphocytes Auto (Unsp spec) [#/Vol] 2.00 10*3/uL 0.83-4.51 [facility] Absolute neutrophil countOrd ered By: Ammon Nice on 01-22-2025 Neutrophils (Bld) [#/Vol] 4.3 10*3/uL 2.0-7.7 [facility] Alcohol, Blood (Medical)-Ser umon 01-22-2025 SERUM ETOH 36.6 mg/dL High <=10.0 [facility] Comment on above: Result Comment: This test is for medical purposes only. The legal definition of intoxication varies according to local law. Performed By: #### L 500.4100, L500.4050, L100.0100, L509.6000, L501.9520, L3100.5310 #### [facility] [address] [place], [place], [id number] Amphetamine detection with 1 000 ng/mL as cutoffOrdered By: Ammon Nice on 01-22-2025 Amphetamines Screen method >1000 ng/mL Ql (U) Negative < 200 ng/mL [facility] Anion gap in Serum or Plasma Ordered By: Ammon Nice on 01-22-2025 Anion gap [Moles/Vol] 30 mmol/L High 5-15 [facility] Automated lymphocyte count a s percentage of total leukocytesOrdered By: Ammon Nice on 01-22-2025 Lymphocytes/100 WBC Auto (Unsp spec) 27.4 % 19-41 [facility] BUN/creatinine ratioOrdered By: Ammon Nice on 01-22-2025 Urea nitrogen/Creatinine [Mass ratio] 7.7 mg/mg Low 10-20 [facility] Basophil percentageOrdered B y: Ammon Nice on 01-22-2025 Basophils/100 WBC (Bld) 1.0 % 0-1 [facility] Bedside Glucoseon 01-22-2025 FINGERSTICK GLU 249 mg/dL High 74-106 [facility] Comment on above: Result Comment: MERY STAPLETON OF PATIENT CARE PER NURSING PROTOCOL Performed By: #### L 501.080 #### [facility] [address] [place], [place], [id number] FINGERSTICK GLU 337 mg/dL High 74-106 [facility] Comment on above: Result Comment: MEYR GEMENT OF PATIENT CARE PER NURSING PROTOCOL Performed By: #### L 501.080 #### [facility] [address] [place], [address] FINGERSTICK GLU 310 mg/dL High 74-106 [facility] Comment on above: Result Comment: MERY GEMENT OF PATIENT CARE PER NURSING PROTOCOL Performed By: #### L 501.080 #### [facility] [address] [place], [address] FINGERSTICK GLU 180 mg/dL High 74-106 [facility] Comment on above: Result Comment: MERY GEMENT OF PATIENT CARE PER NURSING PROTOCOL Performed By: #### L 501.080 #### [facility] [address] [place], [address] FINGERSTICK GLU 56 mg/dL Low 74-106 [facility] Comment on above: Result Comment: MERY GEMENT OF PATIENT CARE PER NURSING PROTOCOL Performed By: #### L 501.080 #### [facility] [address] [place], [address] FINGERSTICK GLU 148 mg/dL High 74-106 [facility] Comment on above: Result Comment: MERY GEMENT OF PATIENT CARE PER NURSING PROTOCOL Performed By: #### L 501.080 #### [facility] [address] [place], [address] Bilirubin, totalOrdered By: Ammon Nice on 01-22-2025 Bilirubin [Mass/Vol] 0.55 mg/dL 0.00-1.30 [facility] Brain/Head without Contrasto n 01-22-2025 Brain/Head without Contrast [facility] Imaging Services [address] [place] [address] Brain/Head without Contrast MR#: [id number] Acct: [id number] Name: JORGE HOLLIS Rep #: [id number] : 1995 M 29 From: Georgi Lund MD PCP: Dr. Dexter Daniel MD Status: REG ER Study: Brain/Head without Contrast Date of Exam: 12/26 Exam# [id number] Ordering Dr: Ammon Nice MD PROCEDURE: BRAIN/HEAD [...] without contrast. 2. Multifocal sinusitis. Reading Location: [id number] CC: Dr. Ammon Nice MD; Dr. Dexter Daniel MD Decommissioning Well Site Manager: Signed Normal [facility] CBC W/Diff, Automatedon 12-26 Absolute Lymph 2.00 X10 3/uL Normal 0.83-4.51 [facility] Comment on above: Performed By: #### L 501.080 #### [facility] [address] [place], [place], [id number] Absolute Neut 4.3 X10 3/uL Normal 2.0-7.7 [facility] Comment on above: Performed By: #### L 501.080 #### [facility] [address] [place], [address] Basophils/100 WBC (Bld) 1.0 % Normal 0-1 [facility] Comment on above: Performed By: #### L 501.080 #### [facility] [address] [place], [address] Eosinophils/100 WBC (Bld) 0.5 % Normal 0-5 [facility] Comment on above: Performed By: #### L 501.080 #### [facility] [address] [place], [address] Erythrocyte distribution width (RBC) [Ratio] 12.9 % Normal 11.6-14.6 [facility] Comment on above: Performed By: #### L 501.080 #### [facility] [address] [place], [address] Hematocrit (Bld) [Volume fraction] 41.6 % Normal 40-54 [facility] Comment on above: Performed By: #### L 501.080 #### [facility] [address] [place], [address] Hemoglobin (Bld) [Mass/Vol] 14.5 g/dL Normal 13.0-16.5 [facility] Comment on above: Performed By: #### L 501.080 #### [facility] [address] [place], [address] IG% 0.100 Normal 0.0-0.9 [facility] Comment on above: Result Comment: IG% - Immature Granulocytes (promyelocytes, myelocytes and metamyelocytes) > 1% indicates that a LEFT SHIFT is Present. Performed By: #### L 501.080 #### [facility] [address] [place], [address] Lymphocytes/100 WBC (Bld) 27.4 % Normal 19-41 [facility] Comment on above: Performed By: #### L 501.080 #### [facility] [address] [place], [address] MCH (RBC) [Entitic mass] 32.3 pg High 27.0-32.0 [facility] Comment on above: Performed By: #### L 501.080 #### [facility] [address] [place], [address] MCHC (RBC) [Mass/Vol] 34.9 g/dL Normal 32-36 [facility] Comment on above: Performed By: #### L 501.080 #### [facility] [address] [place], [address] MCV (RBC) [Entitic vol] 92.7 fL Normal 80-94 [facility] Comment on above: Performed By: #### L 501.080 #### [facility] [address] [place], [address] Monocytes/100 WBC (Bld) 11.8 % High 0-10 [facility] Comment on above: Performed By: #### L 501.080 #### [facility] [address] [place], [address] Neutrophils/100 WBC (Bld) 59.2 % Normal 47-70 [facility] Comment on above: Performed By: #### L 501.080 #### [facility] [address] [place], [address] Nucleated RBC (Bld) [#/Vol] 0 10*3/uL Normal 0-5 [facility] Comment on above: Performed By: #### L 501.080 #### [facility] [address] [place], [address] Platelet mean volume (Bld) [Entitic vol] 10.2 fL Normal 6.2-12.0 [facility] Comment on above: Performed By: #### L 501.080 #### [facility] [address] [place], [address] Platelets (Bld) [#/Vol] 185 10*3/uL Normal 150-450 [facility] Comment on above: Performed By: #### L 501.080 #### [facility] [address] [place], [address] RBC (Bld) [#/Vol] 4.49 10*6/uL Low 4.6-6.2 [facility] Comment on above: Performed By: #### L 501.080 #### [facility] [address] [place], [address] RDW SD 43.8 fl Normal 35.1-43.9 [facility] Comment on above: Performed By: #### L 501.080 #### [facility] Laboratory [address] [place], [address] WBC (Bld) [#/Vol] 7.3 10*3/uL Normal 4.4-11.0 [facility] Comment on above: Performed By: #### L 501.080 #### [facility] Laboratory [address] [place], [address] Carbon dioxide, total [Moles /volume] in Central venous bloodOrdered By: Ammon Nice on 01-22-2025 CO2 [Moles/Vol] 14.8 mmol/L Low 21.0-32.0 [facility] Chloride assayOrdered By: Jatin Nice on 01-22-2025 Chloride [Moles/Vol] 99 mmol/L 98-108 [facility] Comprehensive Metabolic Prof ilon 01-22-2025 Albumin [Mass/Vol] 4.6 g/dL Normal 3.5-5.0 [facility] Comment on above: Performed By: #### L 501.080 #### [facility] Laboratory [address] [place], [address] Albumin/Globulin [Mass ratio] 1.8 {ratio} Normal 0.9-2.4 [facility] Comment on above: Performed By: #### L 501.080 #### [facility] [address] [place], [address] ALK PHOS 99 U/L Normal 40-129 [facility] Comment on above: Performed By: #### L 501.080 #### [facility] [address] [place], [address] ALT [Catalytic activity/Vol] 129 U/L High <=46 [facility] Comment on above: Performed By: #### L 501.080 #### [facility] Laboratory [address] [place], [address] AST [Catalytic activity/Vol] 133 U/L High <=37 [facility] Comment on above: Performed By: #### L 501.080 #### [facility] Laboratory [address] [place], [address] Bilirubin [Mass/Vol] 0.55 mg/dL Normal 0.00-1.30 [facility] Comment on above: Performed By: #### L 501.080 #### [facility] Laboratory [address] [place], [address] BUN/CRE 7.7 RATIO Low 10-20 [facility] Comment on above: Performed By: #### L 501.080 #### [facility] Laboratory [address] [place], [address] Calcium [Mass/Vol] 9.7 mg/dL Normal 7.6-11.0 [facility] Comment on above: Performed By: #### L 501.080 #### [facility] Laboratory [address] [place], [address] Chloride [Moles/Vol] 99 mmol/L Normal 98-108 [facility] Comment on above: Performed By: #### L 501.080 #### [facility] [address] [place], [address] CO2 [Moles/Vol] 14.8 mmol/L Low 21.0-32.0 [facility] Comment on above: Performed By: #### L 501.080 #### [facility] Laboratory [address] [place], [address] Creatinine [Mass/Vol] 0.90 mg/dL Normal 0.70-1.20 [facility] Comment on above: Performed By: #### L 501.080 #### [facility] [address] [place], [address] ECRCL 138.10 ml/min Normal 50-250 [facility] Comment on above: Performed By: #### L 501.080 #### [facility] [address] [place], [address] GAP 30 High 5-15 [facility] Comment on above: Performed By: #### L 501.080 #### [facility] Laboratory [address] [place], [address] GFR/1.73 sq M.predicted among non-blacks MDRD (S/P/Bld) [Vol rate/Area] 120 mL/min/{1.73_m2} Normal >60 [facility] Comment on above: Result Comment: mL/m in/1.73m2 CKD-EPI Creatinine Equation (2020) Performed By: #### L 501.080 #### [facility] Laboratory [address] [place], [address] Globulin (S) [Mass/Vol] 2.6 g/dL Normal 2.2-4.2 [facility] Comment on above: Performed By: #### L 501.080 #### [facility] Laboratory [address] [place], [address] Glucose [Mass/Vol] 65 mg/dL Low 70-99 [facility] Comment on above: Performed By: #### L 501.080 #### [facility] [address] [place], [address] Potassium [Moles/Vol] 3.5 mmol/L Normal 3.3-5.1 [facility] Comment on above: Performed By: #### L 501.080 #### [facility] [address] [place], [address] Sodium [Moles/Vol] 144 mmol/L Normal 133-145 [facility] Comment on above: Performed By: #### L 501.080 #### [facility] [address] [place], [address] T PROT 7.2 g/dL Normal 5.9-8.4 [facility] Comment on above: Performed By: #### L 501.080 #### [facility] [address] [place], [address] Urea nitrogen [Mass/Vol] 7 mg/dL Normal 4-19 [facility] Comment on above: Performed By: #### L 501.080 #### [facility] Laboratory [address] [place], [address] Emergency Department Summary on 01-22-2025 Emergency Department Summary [facility] Medical Records Department [address] [place] [address] Emergency Department Summary 01/22/25 MR#: [id number] Acct: [id number] Name: JORGE HOLLIS Rep #: [id number] : 1995 29 From: Ammon Nice MD [...] who states that they went to the [employer] [place] yesterday, and the patient was able [...] teens. He presents with hypoglycemia and nausea. [facility] Medical History History of diabetes mellitus [...] patient seconda (more content not included)... Normal [facility] Eosinophil percentageOrdered By: Ammon Nice on 01-22-2025 Eosinophils/100 WBC (Bld) 0.5 % 0-5 [facility] Erythrocyte distribution wid th ratioOrdered By: Ammon Nice on 01-22-2025 Erythrocyte distribution width (RBC) [Ratio] 12.9 % 11.6-14.6 [facility] Erythrocyte distribution wid th standard deviationOrdered By: Ammon Nice on 01-22-2025 Erythrocyte distribution width (RBC) [Ratio] 43.8 fl 35.1-43.9 [facility] Glomerular filtration rate ( GFR) estimation/1.73 sq m using serum, plasma, or whole bOrdered By: Ammon Nice on 01-22-2025 GFR/1.73 sq M.predicted among non-blacks MDRD (S/P/Bld) [Vol rate/Area] 120 mL/min/{1.73_m2} >60 [facility] Comment on above: mL/min/1.73m2 CKD-EP I Creatinine Equation (2020) [facility] deOrdered By: Ammon Nice on 01-22-2025 Glucose [Mass/Vol] 249 mg/dL High 74-106 [facility] Comment on above: MANAGEMENT OF PATIEN T CARE PER NURSING PROTOCOL Hematocrit Auto (Bld) [Volum e fraction]Ordered By: Ammon Nice on 01-22-2025 Hematocrit (Bld) [Volume fraction] 41.6 % 40-54 [facility] Hemoglobin measurementOrdere d By: Ammon Nice on 01-22-2025 Hemoglobin (Bld) [Mass/Vol] 14.5 g/dL 13.0-16.5 [facility] Immature granulocytes/100 WB C Auto (Bld)Ordered By: Ammon Nice on 01-22-2025 Immature granulocytes/100 WBC (Bld) 0.100 % 0.0-0.9 [facility] Comment on above: IG% - Immature Granu locytes (promyelocytes, myelocytes and metamyelocytes) > 1% indicates that a LEFT SHIFT is Present. Laboratory - Chemistry and C hemistry - challengeOrdered By: Ammon Nice on 01-22-2025 AST [Catalytic activity/Vol] 133 U/L High <38 [facility] Lipaseon 01-22-2025 Lipase [Catalytic activity/Vol] 66 U/L Normal 13-75 [facility] Comment on above: Result Comment: Ligia samano note: LIPASE revised reference range effective 22. New Lipase methodology. Expected to produce lower values than the previous assay method. NEW Reference Range: 13 - 75 U/L Performed By: #### L 500.4100, L500.4050, L100.0100, L509.6000, L501.9520, L3100.5310 #### [facility] Laboratory [address] [place], [address] Lipase [Catalytic activity/Vol] 62 U/L Normal 13-75 [facility] Comment on above: Result Comment: Ligia samano note: LIPASE revised reference range effective 22. New Lipase methodology. Expected to produce lower values than the previous assay method. NEW Reference Range: 13 - 75 U/L Performed By: #### L 501.080 #### [facility] Laboratory [address] [facility] [place], [address] Lipase measurementOrdered By : Ammon Nice on 01-22-2025 Lipase [Catalytic activity/Vol] 66 U/L 13-75 [facility] Comment on above: Please note:LIPASE r evised reference range effective 22. New Lipase methodology. Expected to produce lower values than the previous assay method. NEW Reference Range: 13 - 75 U/L MCV (mean corpuscular volume ) determinationOrdered By: Ammon Nice on 01-22-2025 MCV (RBC) [Entitic vol] 92.7 fL 80-94 [facility] Mean corpuscular hemoglobin (MCH) determinationOrdered By: Ammon Nice on 01-22-2025 MCH (RBC) [Entitic mass] 32.3 pg High 27.0-32.0 [facility] Mean corpuscular hemoglobin concentration (MCHC) determinationOrdered By: Ammon Nice on 01-22-2025 MCHC (RBC) [Mass/Vol] 34.9 g/dL 32-36 [facility] Mean platelet volume determi nationOrdered By: Ammon Nice on 01-22-2025 Platelet mean volume (Bld) [Entitic vol] 10.2 fL 6.2-12.0 [facility] Monocyte percentageOrdered B y: Ammon Nice on 01-22-2025 Monocytes/100 WBC (Bld) 11.8 % High 0-10 [facility] Neutrophil percentageOrdered By: Ammon Nice on 01-22-2025 Neutrophils/100 WBC (Bld) 59.2 % 47-70 [facility] No Panel InformationOrdered By: Ammon Nice on 01-22-2025 Urine Buprenorphine Qualitative Negative < 200 ng/mL [facility] Urine Oxycodone Screen Negative < 100 ng/mL [facility] Nucleated red blood cell per centageOrdered By: Ammon Nice on 01-22-2025 Nucleated RBC/100 WBC (Bld) [Ratio] 0 % 0-5 [facility] Platelet countOrdered By: Jatin Nice on 01-22-2025 Platelets (Bld) [#/Vol] 185 10*3/uL 150-450 [facility] Potassium measurement (mass/ volume)Ordered By: Ammon Nice on 01-22-2025 Potassium (Unsp spec) [Mass/Vol] 3.5 mmol/L 3.3-5.1 [facility] Quantitative urine opiates m easurementOrdered By: Ammon Nice on 01-22-2025 Opiates Ql (U) Negative < 300 ng/mL [facility] RBC Auto (Bld) [#/Vol]Ordere d By: Ammon Nice on 01-22-2025 RBC (Bld) [#/Vol] 4.49 10*6/uL Low 4.6-6.2 [facility] Screening urine fentanyl wade surementOrdered By: Ammon Nice on 01-22-2025 fentaNYL Screen Ql (U) Negative <5 ng/mL [facility] Comment on above: CONFIRMATORY TESTING FOR [...] on 01-22-2025 Creatinine [Mass/Vol] 0.90 mg/dL 0.70-1.20 [facility] Serum globulin measurementOr dered By: Ammon Nice on 01-22-2025 Globulin (S) [Mass/Vol] 2.6 g/dL 2.2-4.2 [facility] Serum glucose measurement (m ass/volume)Ordered By: Ammon Nice on 01-22-2025 Glucose [Mass/Vol] 65 mg/dL Low 70-99 [facility] Serum or plasma alanine nava otransferase (ALT) measurementOrdered By: Ammon Nice on 01-22-2025 ALT [Catalytic activity/Vol] 129 U/L High <47 [facility] Serum or plasma albumin bucky urement (mass/volume)Ordered By: Ammon Nice on 01-22-2025 Albumin [Mass/Vol] 4.6 g/dL 3.5-5.0 [facility] Serum or plasma albumin/glob ulin mass ratioOrdered By: Ammon Nice on 01-22-2025 Albumin/Globulin [Mass ratio] 1.8 {ratio} 0.9-2.4 [facility] Serum or plasma alkaline alfonso sphatase measurementOrdered By: Ammon Nice on 01-22-2025 ALP [Catalytic activity/Vol] 99 U/L 40-129 [facility] Serum or plasma calcium bucky urement (mass/volume)Ordered By: Ammon Nice on 01-22-2025 Calcium [Mass/Vol] 9.7 mg/dL 7.6-11.0 [facility] Serum or plasma ethanol bucky urement (mass/volume)Ordered By: Ammon Nice on 01-22-2025 Ethanol [Mass/Vol] 36.6 mg/dL High <10.1 [facility] Comment on above: This test is for med ical purposes only. The legal definition of intoxication varies according to local law. Serum or plasma urea nitroge n measurement (mass/volume)Ordered By: Ammon Nice on 01-22-2025 Urea nitrogen [Mass/Vol] 7 mg/dL 4-19 [facility] Sodium levelOrdered By: Ammon Nice on 01-22-2025 Sodium [Moles/Vol] 144 mmol/L 133-145 [facility] Total proteinOrdered By: Veronica Nice on 01-22-2025 Protein [Mass/Vol] 7.2 g/dL 5.9-8.4 [facility] Urine Drug Screen (VISTA)on 01-22-2025 AMPHETAMINES Negative Normal <1000 ng/mL [facility] Comment on above: Performed By: #### L 500.4100, L500.4050, L100.0100, L509.6000, L501.9520, L3100.5310 #### [facility] Laboratory [address] [place] [address] BARBITIURATES Negative Normal < 200 ng/mL [facility] Comment on above: Performed By: #### L 500.4100, L500.4050, L100.0100, L509.6000, L501.9520, L3100.5310 #### [facility] Laboratory [address] [place] [address] BENZODIAZIPINE Negative Normal < 200 ng/mL [facility] Comment on above: Performed By: #### L 500.4100, L500.4050, L100.0100, L509.6000, L501.9520, L3100.5310 #### [facility] [address] [place] [address] BUP Ur Drug Scr Negative Normal < 200 ng/mL [facility] Comment on above: Performed By: #### L 500.4100, L500.4050, L100.0100, L509.6000, L501.9520, L3100.5310 #### [facility] [address] [place] [address] COCAINE Negative Normal < 300 ng/mL [facility] Comment on above: Performed By: #### L 500.4100, L500.4050, L100.0100, L509.6000, L501.9520, L3100.5310 #### [facility] [address] [place], [address] Fentanyl Negative Normal <5 ng/mL [facility] Comment on above: Result Comment: CONF [...] 500.4100, L500.4050, L100.0100, L509.6000, L501.9520, L3100.5310 #### [facility] [address] [place], [address] METHADONE Negative Normal < 300 ng/mL [facility] Comment on above: Performed By: #### L 500.4100, L500.4050, L100.0100, L509.6000, L501.9520, L3100.5310 #### [facility] [address] [place], [place], [facility] OPIATES Negative Normal < 300 ng/mL [facility] Comment on above: Performed By: #### L 500.4100, L500.4050, L100.0100, L509.6000, L501.9520, L3100.5310 #### [facility] [address] [place], [address] OXYCODONE Negative Normal < 100 ng/mL [facility] Comment on above: Performed By: #### L 500.4100, L500.4050, L100.0100, L509.6000, L501.9520, L3100.5310 #### [facility] [address] [place], [address] PCP Negative Normal < 25 ng/mL [facility] Comment on above: Performed By: #### L 500.4100, L500.4050, L100.0100, L509.6000, L501.9520, L3100.5310 #### [facility] [address] [place], [place], [phone] THC Negative Normal < 50 ng/mL [facility] Comment on above: Performed By: #### L 500.4100, L500.4050, L100.0100, L509.6000, L501.9520, L3100.5310 #### [facility] [address] [place], [place], [phone] ([phone] Urine benzodiazepine levelOr dered By: Ammon Nice on 01-22-2025 Benzodiazepines Ql (U) Negative < 200 ng/mL [facility] Urine cocaine levelOrdered B y: Ammon Nice on 01-22-2025 Cocaine Ql (U) Negative < 300 ng/mL [facility] Urine lifex-3-ziipnqfmcpjpby abinol (THC) measurementOrdered By: Ammon Nice on 01-22-2025 Cannabinoids Screen Ql (U) Negative < 50 ng/mL [facility] Urine phencyclidine (PCP) de tectionOrdered By: Ammon Nice on 01-22-2025 Phencyclidine Ql (U) Negative < 25 ng/mL [facility] White blood cell (WBC) count Ordered By: Ammon Nice on 01-22-2025 WBC (Bld) [#/Vol] 7.3 10*3/uL 4.4-11.0 [facility] Endocrinology Visit Reporton 09-20-2024 Endocrinology Visit Report [facility] [address] [place], [place] [address] OFFICE VISIT Date of Service: 09/20/24 MR#: [id number] Acct: [id number] Name: JORGE HOLLIS DALY Rep #: [id number] : 1995 Provider: Jessica Chambers Age/Sex: 29/M Location: [facility] Status: Signed Intake Vital Signs 06/15/24 15:53 [...] 09/2009/20/24 Rx subcutaneous solution (Humalog U-100 Insulin) [facility] Medical History History of diabetes mellitus [...] Cardio R (more content not included)... Normal [facility] Testosterone, Total / Freeon 06-23-2024 TESTOSTER,FREE 15.15 ng/dL Normal 5.00-21.00 [facility] Comment on above: Order Comment: N Performed By: #### L 500.4100, L500.4050, L100.0100, L509.6000, L501.9520, L3100.5310 #### [facility] Laboratory [address] [place], [address] TESTOSTER,TOTAL 481 ng/dL Normal 264-916 [facility] Comment on above: Order Comment: N Result Comment: Adul t male reference interval is based on a population of healthy nonobese males (BMI <30) between 19 and 39 years old. wilver Sandoval.al. JCEM 2017,102;9455-4004. PMID: [id number]. Performed By: #### L 500.4100, L500.4050, L100.0100, L509.6000, L501.9520, L3100.5310 #### [facility] [address] [place], [place], [phone] ([phone] TESTOSTERONE,%F 3.15 Normal 1.50-4.20 [facility] Comment on above: Order Comment: N Result Comment: Perf ormed at: [facility] [address] [id number] Emergency Room Registered Nurse: Mick Rizvi PhD, Phone: [phone] Performed at: [facility] [address] [id number] Emergency Room Registered Nurse: Khalif Kapoor MD, Phone: [phone] Performed By: #### L 500.4100, L500.4050, L100.0100, L509.6000, L501.9520, L3100.5310 #### [facility] Laboratory [address] [place], [address] CORTISOL SERUMon 06-21-2024 CORTISOL 1.50 ug/dL Low 3.44-22.45 [facility] Comment on above: Result Comment: Adul t (AM) 5.27 - 22.45 ug/dL Adult (PM) 3.44 - 16.76 ug/dL Performed By: #### L 500.4100, L500.4050, L100.0100, L509.6000, L501.9520, L3100.5310 #### [facility] Laboratory [address] [place], [address] CBC W/Diff, Automatedon 05-27 Absolute Lymph 1.25 X10 3/uL Normal 0.83-4.51 [facility] Comment on above: Performed By: #### L 500.4100, L500.4050, L100.0100, L509.6000, L501.9520, L3100.5310 #### [facility] [address] [place], [address] Absolute Neut 6.0 X10 3/uL Normal 2.0-7.7 [facility] Comment on above: Performed By: #### L 500.4100, L500.4050, L100.0100, L509.6000, L501.9520, L3100.5310 #### [facility] [address] [place], [address] Basophils/100 WBC (Bld) 0.7 % Normal 0-1 [facility] Comment on above: Performed By: #### L 500.4100, L500.4050, L100.0100, L509.6000, L501.9520, L3100.5310 #### [facility] [address] [place], [address] Eosinophils/100 WBC (Bld) 0.0 % Normal 0-5 [facility] Comment on above: Performed By: #### L 500.4100, L500.4050, L100.0100, L509.6000, L501.9520, L3100.5310 #### [facility] [address] [place], [address] Erythrocyte distribution width (RBC) [Ratio] 12.6 % Normal 11.6-14.6 [facility] Comment on above: Performed By: #### L 500.4100, L500.4050, L100.0100, L509.6000, L501.9520, L3100.5310 #### [facility] Laboratory [address] [place], [address] Hematocrit (Bld) [Volume fraction] 42.8 % Normal 40-54 [facility] Comment on above: Performed By: #### L 500.4100, L500.4050, L100.0100, L509.6000, L501.9520, L3100.5310 #### [facility] [address] [place], [address] Hemoglobin (Bld) [Mass/Vol] 14.7 g/dL Normal 13.0-16.5 [facility] Comment on above: Performed By: #### L 500.4100, L500.4050, L100.0100, L509.6000, L501.9520, L3100.5310 #### [facility] [address] [place], [address] IG% 0.400 Normal 0.0-0.9 [facility] Comment on above: Result Comment: IG% - Immature Granulocytes (promyelocytes, myelocytes and metamyelocytes) > 1% indicates that a LEFT SHIFT is Present. Performed By: #### L 500.4100, L500.4050, L100.0100, L509.6000, L501.9520, L3100.5310 #### [facility] [address] [place], [address] Lymphocytes/100 WBC (Bld) 15.4 % Low 19-41 [facility] Comment on above: Performed By: #### L 500.4100, L500.4050, L100.0100, L509.6000, L501.9520, L3100.5310 #### [facility] [address] [place], [address] MCH (RBC) [Entitic mass] 30.9 pg Normal 27.0-32.0 [facility] Comment on above: Performed By: #### L 500.4100, L500.4050, L100.0100, L509.6000, L501.9520, L3100.5310 #### [facility] [address] [place], [address] MCHC (RBC) [Mass/Vol] 34.3 g/dL Normal 32-36 [facility] Comment on above: Performed By: #### L 500.4100, L500.4050, L100.0100, L509.6000, L501.9520, L3100.5310 #### [facility] [address] [place], [address] MCV (RBC) [Entitic vol] 90.1 fL Normal 80-94 [facility] Comment on above: Performed By: #### L 500.4100, L500.4050, L100.0100, L509.6000, L501.9520, L3100.5310 #### [facility] [address] [place], [address] Monocytes/100 WBC (Bld) 9.8 % Normal 0-10 [facility] Comment on above: Performed By: #### L 500.4100, L500.4050, L100.0100, L509.6000, L501.9520, L3100.5310 #### [facility] [address] [place], [address] Neutrophils/100 WBC (Bld) 73.7 % High 47-70 [facility] Comment on above: Performed By: #### L 500.4100, L500.4050, L100.0100, L509.6000, L501.9520, L3100.5310 #### [facility] [address] [place], [address] Nucleated RBC (Bld) [#/Vol] 0 10*3/uL Normal 0-5 [facility] Comment on above: Performed By: #### L 500.4100, L500.4050, L100.0100, L509.6000, L501.9520, L3100.5310 #### [facility] [address] [place], [address] Platelet mean volume (Bld) [Entitic vol] 9.4 fL Normal 6.2-12.0 [facility] Comment on above: Performed By: #### L 500.4100, L500.4050, L100.0100, L509.6000, L501.9520, L3100.5310 #### [facility] [address] [place], [address] Platelets (Bld) [#/Vol] 219 10*3/uL Normal 150-450 [facility] Comment on above: Performed By: #### L 500.4100, L500.4050, L100.0100, L509.6000, L501.9520, L3100.5310 #### [facility] [address] [place], [address] RBC (Bld) [#/Vol] 4.75 10*6/uL Normal 4.6-6.2 [facility] Comment on above: Performed By: #### L 500.4100, L500.4050, L100.0100, L509.6000, L501.9520, L3100.5310 #### [facility] [address] [place], [address] RDW SD 41.7 fl Normal 35.1-43.9 [facility] Comment on above: Performed By: #### L 500.4100, L500.4050, L100.0100, L509.6000, L501.9520, L3100.5310 #### [facility] [address] [place], [address] WBC (Bld) [#/Vol] 8.1 10*3/uL Normal 4.4-11.0 [facility] Comment on above: Performed By: #### L 500.4100, L500.4050, L100.0100, L509.6000, L501.9520, L3100.5310 #### [facility] [address] [place], [address] Comprehensive Metabolic Prof ilon 06-19-2024 Albumin [Mass/Vol] 4.0 g/dL Normal 3.2-5.0 [facility] Comment on above: Performed By: #### L 500.4100, L500.4050, L100.0100, L509.6000, L501.9520, L3100.5310 #### [facility] [address] [place], [address] Albumin/Globulin [Mass ratio] 1.1 {ratio} Normal 0.9-2.4 [facility] Comment on above: Performed By: #### L 500.4100, L500.4050, L100.0100, L509.6000, L501.9520, L3100.5310 #### [facility] [address] [place], [address] ALK P 92 U/L Normal 45-117 [facility] Comment on above: Performed By: #### L 500.4100, L500.4050, L100.0100, L509.6000, L501.9520, L3100.5310 #### [facility] [address] [place], [address] ALT [Catalytic activity/Vol] 136 U/L High 16-61 [facility] Comment on above: Performed By: #### L 500.4100, L500.4050, L100.0100, L509.6000, L501.9520, L3100.5310 #### [facility] [address] [place], [address] AST [Catalytic activity/Vol] 111 U/L High 15-37 [facility] Comment on above: Performed By: #### L 500.4100, L500.4050, L100.0100, L509.6000, L501.9520, L3100.5310 #### [facility] [address] [place], [address] Bilirubin [Mass/Vol] 1.60 mg/dL High 0.20-1.00 [facility] Comment on above: Result Comment: For patients on eltrombopag therapy, use of Dimension [place] TBIL is not recommended. Performed By: #### L 500.4100, L500.4050, L100.0100, L509.6000, L501.9520, L3100.5310 #### [facility] [address] [place], [address] BUN/CRE 10.6 RATIO Normal 10-20 [facility] Comment on above: Performed By: #### L 500.4100, L500.4050, L100.0100, L509.6000, L501.9520, L3100.5310 #### [facility] [address] [place], [address] CA,Total 9.6 mg/dL Normal 8.5-10.1 [facility] Comment on above: Performed By: #### L 500.4100, L500.4050, L100.0100, L509.6000, L501.9520, L3100.5310 #### [facility] [address] [place], [address] Chloride [Moles/Vol] 100 mmol/L Normal 98-107 [facility] Comment on above: Performed By: #### L 500.4100, L500.4050, L100.0100, L509.6000, L501.9520, L3100.5310 #### [facility] [address] [place], [address] CO2 [Moles/Vol] 23.0 mmol/L Normal 21.0-32.0 [facility] Comment on above: Performed By: #### L 500.4100, L500.4050, L100.0100, L509.6000, L501.9520, L3100.5310 #### [facility] [address] [place], [address] Creatinine [Mass/Vol] 1.04 mg/dL Normal 0.70-1.30 [facility] Comment on above: Result Comment: The validity of the calculated GFR GFRAA in patients over 70 years has not been determined. Clinical correlation is essential. Performed By: #### L 500.4100, L500.4050, L100.0100, L509.6000, L501.9520, L3100.5310 #### [facility] [address] [place], [address] EST GFR - AA 109 mL/min Normal >60 [facility] Comment on above: Result Comment: Afri can Filipino GFR Calc Performed By: #### L 500.4100, L500.4050, L100.0100, L509.6000, L501.9520, L3100.5310 #### [facility] [address] [place], [address] GAP 14 Normal 5-15 [facility] Comment on above: Performed By: #### L 500.4100, L500.4050, L100.0100, L509.6000, L501.9520, L3100.5310 #### [facility] [address] [place], [address] GFR/1.73 sq M.predicted among non-blacks MDRD (S/P/Bld) [Vol rate/Area] 90 mL/min/{1.73_m2} Normal >60 [facility] Comment on above: Result Comment: Non- GFR Calc Performed By: #### L 500.4100, L500.4050, L100.0100, L509.6000, L501.9520, L3100.5310 #### [facility] [address] [place], [address] Globulin (S) [Mass/Vol] 3.8 g/dL Normal 2.2-4.2 [facility] Comment on above: Performed By: #### L 500.4100, L500.4050, L100.0100, L509.6000, L501.9520, L3100.5310 #### [facility] [address] [place], [address] Glucose [Mass/Vol] 122 mg/dL High 74-106 [facility] Comment on above: Result Comment: Fast ing Glucose result from 100 to 125 mg/dL suggests IMPAIRED HOMEOSTASIS per A.D.A. criteria. Performed By: #### L 500.4100, L500.4050, L100.0100, L509.6000, L501.9520, L3100.5310 #### [facility] [address] [place], [address] Potassium [Moles/Vol] 3.7 mmol/L Normal 3.5-5.1 [facility] Comment on above: Performed By: #### L 500.4100, L500.4050, L100.0100, L509.6000, L501.9520, L3100.5310 #### [facility] [address] [place], [address] Sodium [Moles/Vol] 138 mmol/L Normal 136-145 [facility] Comment on above: Performed By: #### L 500.4100, L500.4050, L100.0100, L509.6000, L501.9520, L3100.5310 #### [facility] [address] [place], [address] T PROT 7.8 g/dL Normal 6.4-8.2 [facility] Comment on above: Performed By: #### L 500.4100, L500.4050, L100.0100, L509.6000, L501.9520, L3100.5310 #### [facility] [address] [place], [address] Urea nitrogen [Mass/Vol] 11 mg/dL Normal 7-18 [facility] Comment on above: Performed By: #### L 500.4100, L500.4050, L100.0100, L509.6000, L501.9520, L3100.5310 #### [facility] [address] [place], [address] Lipid Profileon 06-19-2024 Cholesterol [Mass/Vol] 198 mg/dL Normal 200 [facility] Comment on above: Result Comment: <200 mg/dL Desirable 200-240 mg/dL Borderline >240 mg/dL High Risk Performed By: #### L 500.4100, L500.4050, L100.0100, L509.6000, L501.9520, L3100.5310 #### [facility] [address] [place], [address] Cholesterol in HDL [Mass/Vol] 93 mg/dL Normal [facility] Comment on above: Result Comment: The drugs N-Acetylcysteine and Metamizole may falsely depress this assay. Reference Range HDL <40 mg/dL Low HDL Cholesterol HDL >or= 60 mg/dL High HDL Cholesterol Performed By: #### L 500.4100, L500.4050, L100.0100, L509.6000, L501.9520, L3100.5310 #### [facility] [address] [place], [address] Cholesterol in LDL [Mass/Vol] 78 mg/dL Normal 0-130 [facility] Comment on above: Performed By: #### L 500.4100, L500.4050, L100.0100, L509.6000, L501.9520, L3100.5310 #### [facility] [address] [place], [address] Cholesterol in VLDL [Mass/Vol] 27 mg/dL Normal 5-40 [facility] Comment on above: Performed By: #### L 500.4100, L500.4050, L100.0100, L509.6000, L501.9520, L3100.5310 #### [facility] [address] [place], [address] Triglyceride [Mass/Vol] 136 mg/dL Normal [facility] Comment on above: Result Comment: The drugs N-Acetylcysteine and Metamizole may falsely depress this assay. Serum Triglycerides Reference Interval Normal <150 mg/dL Borderline high 150 - 199 mg/dL High 200 - 499 mg/dL Very High > or = 500 mg/dL Performed By: #### L 500.4100, L500.4050, L100.0100, L509.6000, L501.9520, L3100.5310 #### [facility] [address] [place], [address] Thyroid Stim Hormone (TSH)on 06-19-2024 TSH 1.330 uIU/mL Normal 0.358-3.740 [facility] Comment on above: Performed By: #### L 500.4100, L500.4050, L100.0100, L509.6000, L501.9520, L3100.5310 #### [facility] [address] [place], [address] Endocrinology Visit Reporton 06-15-2024 Endocrinology Visit Report [facility] [facility] [place], [place] [address] OFFICE VISIT Date of Service: 06/15/24 MR#: [id number] Acct: [id number] Name: JORGE HOLLIS Rep #: [id number] 1 : 1995 Provider: Jessica Chmabers Age/Sex: 29/M Location: [facility] Status: Signed Intake Vital Signs 12/16/23 14:56 [...] Masoud Harris (more content not included)... Normal [facility] Basic metabolic 2000 panelon 03-02-2024 Anion gap [Moles/Vol] 17 mmol/L Normal - [facility] Comment on above: Performed By: #### 5 7021-8 #### LISSETTE NEAL ([id number]) [facility] ([facility]) [address] [place] [address] Performed By: #### 2 4339-4 #### LISSETTE NEAL ([id number]) [facility] ([facility]) [address] [place] [address] Calcium [Mass/Vol] 8.9 mg/dL Normal 8.6-10.3 [facility] Comment on above: Performed By: #### 5 7021-8 #### LISSETTE NEAL ([id number]) [facility] ([facility]) [address] [place] [address] Chloride [Moles/Vol] 104 mmol/L Normal 98-107 [facility] Comment on above: Performed By: #### 5 7021-8 #### LISSETTE NEAL ([id number]) [facility] ([facility]) [address] [place] [address] 11519 CO2 [Moles/Vol] 17 mmol/L Low 21-32 [facility] Comment on above: Performed By: #### 5 7021-8 #### LISSETTE NEAL ([id number]) [facility] ([facility]) [address] [place] [address] Performed By: #### 2 4339-4 #### LISSETTE NEAL ([id number]) [facility] ([facility]) [address] [place] [address] Creatinine [Mass/Vol] 0.94 mg/dL Normal 0.50-1.30 [facility] Comment on above: Performed By: #### 5 7021-8 #### LISSETTE NEAL ([id number]) [facility] ([facility]) [address] [place] [address] Glucose [Mass/Vol] 188 mg/dL High 74-99 [facility] Comment on above: Performed By: #### 5 7021-8 #### LISSETTE NEAL ([id number]) [facility] ([facility]) [address] [place] [address] Potassium [Moles/Vol] 4.1 mmol/L Normal 3.5-5.3 [facility] Comment on above: Performed By: #### 5 7021-8 #### LISSETTE NEAL ([id number]) [facility] ([facility]) [address] [place] [address]51 Sodium [Moles/Vol] 134 mmol/L Low 136-145 [facility] Comment on above: Performed By: #### 5 7021-8 #### LISSETTE NEAL (41201) [facility] ([facility]) [address] [place] [address] Urea nitrogen [Mass/Vol] 10 mg/dL Normal 6-23 [facility] Comment on above: Performed By: #### 5 7021-8 #### LISSETTE NEAL ([id number]) [facility] ([facility]) [address] [place] [address] 90568 eGFR - PINF [facility] Comment on above: Calculations of luis felipe mated GFR are performed using the 2020 CKD-EPI Study Refit equation without the race variable for the IDMS-Traceable creatinine methods. https://jasn.asnjournals.org/content//ASN.33795 49278 Interpretation and review of laboratory results Abnormal [facility] Calcium [Mass/Vol] 8.7 mg/dL 8.6 - 10. 3 mg/dL [facility] Chloride [Moles/Vol] 106 mmol/L 98 - 10 7 mmol/L [facility] Creatinine [Mass/Vol] 0.97 mg/dL 0.50 - 1.30 mg/dL [facility] eGFR - PINF [facility] Comment on above: Calculations of luis felipe mated GFR are performed using the 2020 CKD-EPI Study Refit equation without the race variable for the IDMS-Traceable creatinine methods. https://jasn.asnjournals.org/content//ASN.55271 51498 Glucose [Mass/Vol] 115 mg/dL High 74 - 99 mg/dL [facility] Interpretation and review of laboratory results Abnormal [facility] Potassium [Moles/Vol] 3.8 mmol/L 3.5 - 5.3 mmol/L [facility] Sodium [Moles/Vol] 136 mmol/L 136 - 145 mmol/L [facility] Urea nitrogen [Mass/Vol] 12 mg/dL 6 - 23 mg/dL [facility] Calcium [Mass/Vol] 8.7 mg/dL Normal 8.6-10.3 [facility] Comment on above: Performed By: #### 2 4339-4 #### LISSETTE NEAL (37829) [facility] ([facility]) [address] [place] [address]72[address] Chloride [Moles/Vol] 106 mmol/L Normal 98-107 [facility] Comment on above: Performed By: #### 2 4339-4 #### LISSETTE NEAL (93022) [facility] ([facility]) [facility] [place] [address] Creatinine [Mass/Vol] 0.97 mg/dL Normal 0.50-1.30 [facility] Comment on above: Performed By: #### 2 4339-4 #### LISSETTE NEAL ([id number]) [facility] ([facility]) [address] [place] [address] GFR/1.73 sq M.predicted MDRD (S/P/Bld) [Vol rate/Area] mL/min/{1.73_m2} Normal >60 [facility] Comment on above: Result Comment: Calc ulations of estimated GFR are performed using the 2020 CKD-EPI Study Refit equation without the race variable for the IDMS-Traceable creatinine methods. https://jasn.asnjournals.org/content//ASN.47524 20554 Performed By: #### 5 7021-8 #### LISSETTE NEAL (06030) [facility] ([facility]) [address] [place] [address] Performed By: #### 2 4339-4 #### LISSETTE NEAL (14345) [facility] ([facility]) [address] [place] [address]7877 Glucose [Mass/Vol] 115 mg/dL High 74-99 [facility] Comment on above: Performed By: #### 2 4339-4 #### LISSETTE NEAL (96532) [facility] ([facility]) [address] [place] [address]2553 Potassium [Moles/Vol] 3.8 mmol/L Normal 3.5-5.3 [facility] Comment on above: Performed By: #### 2 4339-4 #### LISSETTE NEAL (00333) [facility] ([facility]) [address] [place] [address] 31198 Sodium [Moles/Vol] 136 mmol/L Normal 136-145 [facility] Comment on above: Performed By: #### 2 4339-4 #### LISSETTE NEAL (03391) [facility] ([facility]) [address] [place] [address] 73863 Urea nitrogen [Mass/Vol] 12 mg/dL Normal 6-23 [facility] Comment on above: Performed By: #### 2 4339-4 #### LISSETTE NEAL (67552) [facility] ([facility]) [address] [place] [address] 39990 Beta hydroxybutyrate [Mass o r moles/Vol]on 03-02-2024 Beta hydroxybutyrate [Moles/Vol] 3.52 mmol/L High 0.02 - 0.27 mmol/L [facility] Interpretation and review of laboratory results Abnormal [facility] The beta-hydroxybutyrate test performance characteristics have been validated by [facility]. This test has not been approved by the FDA; however, such approval is not necessary. [facility] Beta hydroxybutyrate [Moles/Vol] 3.52 mmol/L High 0.02-0.27 [facility] Comment on above: Order Comment: The b eta-hydroxybutyrate test performance characteristics have been validated by [facility]. This test has not been approved by the FDA; however, such approval is not necessary. Performed By: #### 2 4339-4 #### MCLAUGHLIN VAL ([id number]) [facility] ([facility]) [address] [place] [address] ECG 12 LeadOrdered By: Kaylan Rubio on 03-02-2024 Atrial Rate 139 BPM [facility] Work Phone: [phone] P [place] 56 degrees [facility] Work Phone: [phone] P Offset 202 ms [facility] Work Phone: [phone] P Onset 153 ms [facility] Work Phone: [phone] [place] Interval 130 ms [facility] Work Phone: [phone] Q Onset 218 ms [facility] Work Phone: [phone] QRS Count 23 beats [facility] Work Phone: [phone] QRS Duration 78 ms [facility] Work Phone: [phone] QT Interval 296 ms [facility] Work Phone: [phone] QTC Calculation(Bazett) 450 ms [facility] Work Phone: [phone] QTC Fredericia 391 ms [facility] Work Phone: [phone] R [place] 65 degrees [facility] Work Phone: [phone] T [place] 48 degrees [facility] Work Phone: [phone] T Offset 366 ms [facility] Work Phone: [phone] Ventricular Rate 139 BPM [facility] Work Phone: [facility] Work Phone: ECG 12 Leadon 03-02-2024 Sinus tachycardia Anterolateral infarct , age undetermined Abnormal ECG No previous ECGs available See ED provider note for full interpretation and clinical correlation Confirmed by Kaylan Rubio ([id number]) on 03/02/2024 11:21:20 AM Kaylan Rodriguez PA-C - 03/02/2024 Sinus tachycardia Anterolateral infarct , age undetermined Abnormal ECG No previous ECGs available See ED provider note for full interpretation and clinical correlation Confirmed by Kaylan Rubio ([id number]) on 03/02/2024 11:21:20 AM [facility] Work Phone: Glucose Test strip manual (B ld) [Mass/Vol]on 03-02-2024 Glucose [Mass/Vol] 191 mg/dL High 74 - 99 mg/dL [facility] Interpretation and review of laboratory results Abnormal [facility] Glucose [Mass/Vol] 191 mg/dL High 74-99 [facility] Comment on above: Performed By: #### 2 4339-4 #### LISSETTE NEAL (45992) [facility] ([facility]) [address] [place] [address]1301 Glucose [Mass/Vol] 224 mg/dL High 74 - 99 mg/dL [facility] Interpretation and review of laboratory results Abnormal [facility] Glucose [Mass/Vol] 224 mg/dL High 74-99 [facility] Comment on above: Performed By: #### 2 4339-4 #### LISSETTE NEAL ([id number]) [facility] ([facility]) [address] [place] [address] 80734 Glucose [Mass/Vol] 238 mg/dL High 74 - 99 mg/dL [facility] Interpretation and review of laboratory results Abnormal [facility] Glucose [Mass/Vol] 238 mg/dL High 74-99 [facility] Comment on above: Performed By: #### 2 4339-4 #### LISSETTE NEAL (49711) [facility] ([facility]) [address] [place] [address] 07969 Glucose [Mass/Vol] 178 mg/dL High 74 - 99 mg/dL [facility] Interpretation and review of laboratory results Abnormal [facility] Glucose [Mass/Vol] 178 mg/dL High 74-99 [facility] Comment on above: Performed By: #### 2 4339-4 #### LISSETTE NEAL (55741) [facility] ([facility]) [address] [place] [address] 81578 Glucose [Mass/Vol] 129 mg/dL High 74 - 99 mg/dL [facility] Interpretation and review of laboratory results Abnormal [facility] Glucose [Mass/Vol] 129 mg/dL High 74-99 [facility] Comment on above: Performed By: #### 2 4339-4 #### LISSETTE NEAL (64236) [facility] ([facility]) [address] [place] [address] 81793 Glucose [Mass/Vol] 93 mg/dL 74 - 99 mg/dL [facility] Interpretation and review of laboratory results Normal [facility] Glucose [Mass/Vol] 93 mg/dL Normal 74-99 [facility] Comment on above: Performed By: #### 2 4339-4 #### LISSETTE NEAL (49022) [facility] ([facility]) [address] [place] [address] 87962 Glucose [Mass/Vol] 86 mg/dL 74 - 99 mg/dL [facility] Interpretation and review of laboratory results Normal [facility] Glucose [Mass/Vol] 86 mg/dL Normal 74-99 [facility] Comment on above: Performed By: #### 2 4339-4 #### LISSETTE NEAL (57666) [facility] ([facility]) [address] [place] [address] 79707 Glucose [Mass/Vol] 106 mg/dL High 74 - 99 mg/dL [facility] Interpretation and review of laboratory results Abnormal [facility] Glucose [Mass/Vol] 106 mg/dL High 74-99 [facility] Comment on above: Performed By: #### 2 341-6 ####MCLAUGHLIN VAL ([id number])[facility] ([facility])[address] [place] [address] HbA1c (Bld) [Mass fraction]o n 03-02-2024 Average glucose Estimated from glycated hemoglobin (Bld) [Mass/Vol] 137 mg/dL Not Established [facility] Interpretation and review of laboratory results Abnormal [facility] Diagnosis of Diabetes-Adults Non-Diabetic: < or = 5.6% Increased risk for developing diabetes: 5.7-6.4% Diagnostic of diabetes: > or = 6.5% [facility] Hemoglobin A1con 03-02-2024 HbA1c (Bld) [Mass fraction] 6.4 % High See comment [facility] Lavender Topon 03-02-2024 Extra Tube Hold for add-ons. [facility] Comment on above: Auto resulted. [facility] SST TOPon 03-02-2024 Extra Tube Hold for add-ons. [facility] Comment on above: Auto resulted. [facility] Beta hydroxybutyrate [Mass o r moles/Vol]on 03-01-2024 Beta hydroxybutyrate [Moles/Vol] mmol/L High 0.02 - 0.27 mmol/L [facility] Interpretation and review of laboratory results Abnormal [facility] The beta-hydroxybutyrate test performance characteristics have been validated by [facility]. This test has not been approved by the FDA; however, such approval is not necessary. [facility] Beta hydroxybutyrate [Moles/Vol] >24.00 High 0.02-0.27 [facility] Comment on above: Order Comment: The b eta-hydroxybutyrate test performance characteristics have been validated by [facility]. This test has not been approved by the FDA; however, such approval is not necessary. Performed By: #### 3 5255-9 #### MCLAUGHLIN VAL (03932) [facility] ([facility]) [facility] [place] [address] CBC W Auto Differential pane l (Bld)on 03-01-2024 Basophils (Bld) [#/Vol] 0.02 10*3/uL [facility] Basophils/100 WBC (Bld) 0.2 % 0.0 - 2.0 % [facility] Eosinophils (Bld) [#/Vol] 0.00 10*3/uL [facility] Eosinophils/100 WBC (Bld) 0.0 % 0.0 - 6.0 % [facility] Erythrocyte distribution width (RBC) [Ratio] 12.5 % 11.5 - 14.5 % [facility] Hematocrit (Bld) [Volume fraction] 45.7 % 41.0 - 52.0 % [facility] Hemoglobin (Bld) [Mass/Vol] 15.6 g/dL 13.5 - 17.5 g/dL [facility] Immature granulocytes (Bld) [#/Vol] 0.06 10*3/uL [facility] Immature granulocytes/100 WBC (Bld) 0.6 % 0.0 - 0.9 % [facility] Comment on above: Immature Granulocyte Count (IG) includes promyelocytes, myelocytes and metamyelocytes but does not include bands. Percent differential counts (%) should be interpreted in the context of the absolute cell counts (cells/UL). Interpretation and review of laboratory results Abnormal [facility] Lymphocytes (Bld) [#/Vol] 0.91 10*3/uL Low [facility] Lymphocytes/100 WBC (Bld) 8.5 % 13.0 - 44.0 % [facility] MCH (RBC) [Entitic mass] 31.1 pg 26.0 - 34.0 pg [facility] MCHC (RBC) [Mass/Vol] 34.1 g/dL 32.0 - 36.0 g/dL [facility] MCV (RBC) [Entitic vol] 91 fL 80 - 100 fL [facility] Monocytes (Bld) [#/Vol] 1.00 10*3/uL [facility] Monocytes/100 WBC (Bld) 9.4 % 2.0 - 10.0 % [facility] Neutrophils (Bld) [#/Vol] 8.69 10*3/uL High [facility] Comment on above: Percent differential counts (%) should be interpreted in the context of the absolute cell counts (cells/uL). Neutrophils/100 WBC (Bld) 81.3 % 40.0 - 80.0 % [facility] Nucleated RBC/100 WBC (Bld) [Ratio] 0.0 % [facility] Platelets (Bld) [#/Vol] 186 10*3/uL [facility] RBC (Bld) [#/Vol] 5.01 10*6/uL [facility] WBC (Bld) [#/Vol] 10.7 10*3/uL [facility] Basophils (Bld) [#/Vol] 0.02 x10*3/uL Normal 0.00-0.10 [facility] Comment on above: Performed By: #### 5 7021-8 #### LISSETTE NEAL ([id number]) [facility] ([facility]) [address] [place] [address] 50062 Basophils/100 WBC (Bld) 0.2 % Normal 0.0-2.0 [facility] Comment on above: Performed By: #### 5 7021-8 #### LISSETTE NEAL ([id number]) [facility] ([facility]) [address] [place] [address] 70692 Eosinophils (Bld) [#/Vol] 0.00 x10*3/uL Normal 0.00-0.70 [facility] Comment on above: Performed By: #### 5 7021-8 #### LISSETTE NEAL (79903) [facility] ([facility]) [address] [place] [address] 41795 Eosinophils/100 WBC (Bld) 0.0 % Normal 0.0-6.0 [facility] Comment on above: Performed By: #### 5 7021-8 #### LISSETTE NEAL (92482) [facility] ([facility]) [address] [place] [address] Erythrocyte distribution width (RBC) [Ratio] 12.5 % Normal 11.5-14.5 [facility] Comment on above: Performed By: #### 5 7021-8 #### LISSETTE NEAL ([id number]) [facility] ([facility]) [address] [place] [address] Hematocrit (Bld) [Volume fraction] 45.7 % Normal 41.0-52.0 [facility] Comment on above: Performed By: #### 5 7021-8 #### LISSETTE NEAL ([id number]) [facility] ([facility]) [address] [place] [address] Hemoglobin (Bld) [Mass/Vol] 15.6 g/dL Normal 13.5-17.5 [facility] Comment on above: Performed By: #### 5 7021-8 #### LISSETTE NEAL (37523) [facility] ([facility]) [address] [place] [address] Immature granulocytes (Bld) [#/Vol] 0.06 x10*3/uL Normal 0.00-0.70 [facility] Comment on above: Performed By: #### 5 7021-8 #### LISSETTE NEAL (31393) [facility] ([facility]) [address] [place] [address] Immature granulocytes/100 WBC (Bld) 0.6 % Normal 0.0-0.9 [facility] Comment on above: Result Comment: Suzanne ture Granulocyte Count (IG) includes promyelocytes, myelocytes and metamyelocytes but does not include bands. Percent differential counts (%) should be interpreted in the context of the absolute cell counts (cells/UL). Performed By: #### 5 7021-8 #### LISSETTE NEAL ([id number]) [facility] ([facility]) [address] [place] [address] Lymphocytes (Bld) [#/Vol] 0.91 x10*3/uL Low 1.20-4.80 [facility] Comment on above: Performed By: #### 5 7021-8 #### LISSETTE NEAL (93794) [facility] ([facility]) [address] [place] [address] 89592 Lymphocytes/100 WBC (Bld) 8.5 % Normal 13.0-44.0 [facility] Comment on above: Performed By: #### 5 7021-8 #### LISSETTE NEAL (04260) [facility] ([facility]) [address] [place] [address] 65924 MCH (RBC) [Entitic mass] 31.1 pg Normal 26.0-34.0 [facility] Comment on above: Performed By: #### 5 7021-8 #### LISSETTE NEAL (53057) [facility] ([facility]) [address] [place] [address] 98037 MCHC (RBC) [Mass/Vol] 34.1 g/dL Normal 32.0-36.0 [facility] Comment on above: Performed By: #### 5 7021-8 #### LISSETTE NEAL (23554) [facility] ([facility]) [address] [place] [address] 49732 MCV (RBC) [Entitic vol] 91 fL Normal 80-100 [facility] Comment on above: Performed By: #### 5 7021-8 #### LISSETTE NEAL (06540) [facility] ([facility]) [address] [place] [address] 50614 Monocytes (Bld) [#/Vol] 1.00 x10*3/uL Normal 0.10-1.00 [facility] Comment on above: Performed By: #### 5 7021-8 #### LISSETTE NEAL (43571) [facility] ([facility]) [address] [place] [address] 91941 Monocytes/100 WBC (Bld) 9.4 % Normal 2.0-10.0 [facility] Comment on above: Performed By: #### 5 7021-8 #### LISSETTE NEAL (36070) [facility] ([facility]) [address] [place] [address] 57924 Neutrophils (Bld) [#/Vol] 8.69 x10*3/uL High 1.20-7.70 [facility] Comment on above: Result Comment: Perc ent differential counts (%) should be interpreted in the context of the absolute cell counts (cells/uL). Performed By: #### 5 7021-8 #### LISSETTE NEAL (40453) [facility] ([facility]) [address] [place] [address] 60340 Neutrophils/100 WBC (Bld) 81.3 % Normal 40.0-80.0 [facility] Comment on above: Performed By: #### 5 7021-8 #### LISSETTE NEAL (52300) [facility] ([facility]) [address] [place] [address] 20390 Nucleated RBC/100 WBC (Bld) [Ratio] 0.0 /100 WBCs Normal 0.0-0.0 [facility] Comment on above: Performed By: #### 5 7021-8 #### LISSETTE NEAL (06898) [facility] ([facility]) [address] [place] [address] 45989 Platelets (Bld) [#/Vol] 186 x10*3/uL Normal 150-450 [facility] Comment on above: Performed By: #### 5 7021-8 #### LISSETTE NEAL (48304) [facility] ([facility]) [address] [place] [address] 66365 RBC (Bld) [#/Vol] 5.01 x10*6/uL Normal 4.50-5.90 [facility] Comment on above: Performed By: #### 5 7021-8 #### LISSETTE NEAL ([id number]) [facility] ([facility]) [address] [place] [address] 11156 WBC (Bld) [#/Vol] 10.7 x10*3/uL Normal 4.4-11.3 [facility] Comment on above: Performed By: #### 5 7021-8 #### LISSETTE NEAL (01471) [facility] ([facility]) [address] [place] [address] CT ABDOMEN PELVIS W IV CONTR Andreea 03-01-2024 CT ABDOMEN PELVIS W IV CONTRAST Interpreted By: Pierce Boothe, STUDY: CT ABDOMEN PELVIS W IV CONTRAST; 03/01/2024 7:54 pm INDICATION: Signs/Symptoms:abdomina l pain. COMPARISON: None. ACCESSION NUMBER(S): [id number] ORDERING CLINICIAN: MONA RODRIGUEZ TECHNIQUE: CT of [...] Pierce Boothe 03/01/2024 8:29 PM Dictation workstation: [id number] [facility] CT Abdomen and Pelvis W cont rast Keisha 03-01-2024 1. 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 Hepatic steatosis. No gallstones. No biliary duct dilatation. Mild diverticulosis. 3. Mildly enlarged prostate gland. Distended urinary bladder. MACRO: None Signed by: Pierce Boothe 03/01/2024 8:29 PM Dictation workstation: [id number] MMODAL Interpreted By: Pierce Boothe, STUDY: CT ABDOMEN PELVIS W IV CONTRAST; 03/01/2024 7:54 pm INDICATION: Signs/Symptoms:abdomina l pain. COMPARISON: None. ACCESSION NUMBER(S): [id number] ORDERING CLINICIAN: MONA RODRIGUEZ TECHNIQUE: CT of [...] Signs/Symptoms:abdomina l pain. COMPARISON: None. ACCESSION NUMBER(S): [id number] ORDERING CLINICIAN: MONA RODRIGUEZ TECHNIQUE: CT of [...] Pierce Boothe 03/01/2024 8:29 PM Dictation workstation: [id number] [facility] Work Phone: Radiology Study observation (narrative) [facility] Work Phone: CT Abdomen and Pelvis W cont rast IVOrdered By: Pierce Boothe on 03-01-2024 [facility] Work Phone: Comprehensive metabolic 2000 panelon 03-01-2024 Albumin BCP dye [Mass/Vol] 4.4 g/dL 3.4 - 5.0 g/dL [facility] ALP [Catalytic activity/Vol] 74 U/L 33 - 120 U/L [facility] ALT With P-5'-P [Catalytic activity/Vol] 27 U/L 10 - 52 U/L [facility] Comment on above: Patients treated wit h Sulfasalazine may generate falsely decreased results for ALT. Anion gap [Moles/Vol] 23 mmol/L High 10 - 2 0 mmol/L [facility] AST With P-5'-P [Catalytic activity/Vol] 23 U/L 9 - 39 U/L [facility] Bilirubin [Mass/Vol] 1.0 mg/dL 0.0 - 1 .2 mg/dL [facility] Calcium [Mass/Vol] 8.6 mg/dL 8.6 - 10. 3 mg/dL [facility] Chloride [Moles/Vol] 106 mmol/L 98 - 10 7 mmol/L [facility] CO2 [Moles/Vol] 12 mmol/L Low 21 - 32 mmol/L [facility] Creatinine [Mass/Vol] 1.11 mg/dL 0.50 - 1.30 mg/dL [facility] eGFR - PINF [facility] Comment on above: Calculations of luis felipe mated GFR are performed using the 2020 CKD-EPI Study Refit equation without the race variable for the IDMS-Traceable creatinine methods. https://jasn.asnjournals.org/content//ASN.68720 48014 Glucose [Mass/Vol] 185 mg/dL High 74 - 99 mg/dL [facility] Interpretation and review of laboratory results Abnormal [facility] Potassium [Moles/Vol] 4.7 mmol/L 3.5 - 5.3 mmol/L [facility] Protein [Mass/Vol] 6.9 g/dL 6.4 - 8.2 g/dL [facility] Sodium [Moles/Vol] 136 mmol/L 136 - 145 mmol/L [facility] Urea nitrogen [Mass/Vol] 15 mg/dL 6 - 23 mg/dL [facility] Albumin BCP dye [Mass/Vol] 4.4 g/dL Normal 3.4-5.0 [facility] Comment on above: Performed By: #### 2 4323-8 ####LISSETTE NEAL ([id number])[facility] ([facility])[address] [place] [address] 43168 ALP [Catalytic activity/Vol] 74 U/L Normal 33-120 [facility] Comment on above: Performed By: #### 2 4323-8 ####LISSETTE NEAL ([id number])[facility] ([facility])[address] [place] [address] 09248 ALT With P-5'-P [Catalytic activity/Vol] 27 U/L Normal 10-52 [facility] Comment on above: Result Comment: Marilu ents treated with Sulfasalazine may generate falsely decreased results for ALT. Performed By: #### 2 4323-8 ####LISSETTE NEAL ([id number])[facility] ([facility])[address] [place] [address] 88165 Anion gap [Moles/Vol] 23 mmol/L High 10-20 [facility] Comment on above: Performed By: #### 2 4323-8 ####LISSETTE NEAL ([id number])[facility] ([facility])[address] [place] [address] 39394 AST With P-5'-P [Catalytic activity/Vol] 23 U/L Normal 9-39 [facility] Comment on above: Performed By: #### 2 4323-8 ####LISSETTE NEAL (06590)[facility] ([facility])[address] [place] [address] 48742 Bilirubin [Mass/Vol] 1.0 mg/dL Normal 0.0-1.2 [facility] Comment on above: Performed By: #### 2 4323-8 ####LISSETTE NEAL (04494)[facility] ([facility] [place] [address] Calcium [Mass/Vol] 8.6 mg/dL Normal 8.6-10.3 [facility] Comment on above: Performed By: #### 2 4323-8 ####LISSETTE NEAL ([id number])[facility] ([facility])[address] [place] [address] 05080 Chloride [Moles/Vol] 106 mmol/L Normal 98-107 [facility] Comment on above: Performed By: #### 2 4323-8 ####LISSETTE NEAL (82754)[facility] ([facility])[address] [place] [address] 33352 CO2 [Moles/Vol] 12 mmol/L Low 21-32 [facility] Comment on above: Performed By: #### 2 4323-8 ####LISSETTE NEAL (77645)[facility] ([facility])[address] [place] [address] 33114 Creatinine [Mass/Vol] 1.11 mg/dL Normal 0.50-1.30 [facility] Comment on above: Performed By: #### 2 4323-8 ####LISSETTE NEAL ([id number])[facility] ([facility])[address] [place] [address] 98245 GFR/1.73 sq M.predicted MDRD (S/P/Bld) [Vol rate/Area] mL/min/{1.73_m2} Normal >60 [facility] Comment on above: Result Comment: Calc ulations of estimated GFR are performed using the 2020 CKD-EPI Study Refit equation without the race variable for the IDMS-Traceable creatinine methods. https://jasn.asnjournals.org/content//ASN.36984 32104 Performed By: #### 2 4323-8 ####LISSETTE NEAL (14601)[facility] ([facility])[address] [place] [address] 08893 Glucose [Mass/Vol] 185 mg/dL High 74-99 [facility] Comment on above: Performed By: #### 2 4323-8 ####LISSETTE NEAL (66861)[facility] ([facility])[address] [place] [address] 14147 Potassium [Moles/Vol] 4.7 mmol/L Normal 3.5-5.3 [facility] Comment on above: Performed By: #### 2 4323-8 ####LISSETTE NEAL ([id number])[facility] ([facility])[address] [place] [address] 97409 Protein [Mass/Vol] 6.9 g/dL Normal 6.4-8.2 [facility] Comment on above: Performed By: #### 2 4323-8 ####LISSETTE NEAL (23715)[facility] ([facility])[address] [place] [address] 33693 Sodium [Moles/Vol] 136 mmol/L Normal 136-145 [facility] Comment on above: Performed By: #### 2 4323-8 ####LISSETTE NEAL (28392)[facility] ([facility])[address] [place] [address] 34496 Urea nitrogen [Mass/Vol] 15 mg/dL Normal 6-23 [facility] Comment on above: Performed By: #### 2 4323-8 ####LISSETTE NEAL (36659)[facility] ([facility])[address] [place] [address] 77286 Albumin BCP dye [Mass/Vol] 5.0 g/dL 3.4 - 5.0 g/dL [facility] ALP [Catalytic activity/Vol] 89 U/L 33 - 120 U/L [facility] ALT With P-5'-P [Catalytic activity/Vol] 34 U/L 10 - 52 U/L [facility] Comment on above: Patients treated wit h Sulfasalazine may generate falsely decreased results for ALT. Anion gap [Moles/Vol] 33 mmol/L High 10 - 2 0 mmol/L [facility] AST With P-5'-P [Catalytic activity/Vol] 26 U/L 9 - 39 U/L [facility] Bilirubin [Mass/Vol] 1.3 mg/dL High 0.0 - 1 .2 mg/dL [facility] Calcium [Mass/Vol] 9.9 mg/dL 8.6 - 10. 3 mg/dL [facility] Chloride [Moles/Vol] 99 mmol/L 98 - 10 7 mmol/L [facility] CO2 [Moles/Vol] 10 mmol/L Critically low 21 - 32 mmol/L [facility] Creatinine [Mass/Vol] 1.42 mg/dL High 0.50 - 1.30 mg/dL [facility] GFR/1.73 sq M.predicted among non-blacks MDRD (S/P/Bld) [Vol rate/Area] 69 mL/min/{1.73_m2} - PINF [facility] Comment on above: Calculations of luis felipe mated GFR are performed using the 2020 CKD-EPI Study Refit equation without the race variable for the IDMS-Traceable creatinine methods. https://jasn.asnjournals.org/content/early/ASN.73120 74639 Glucose [Mass/Vol] 178 mg/dL High 74 - 99 mg/dL [facility] Potassium [Moles/Vol] 4.5 mmol/L 3.5 - 5.3 mmol/L [facility] Protein [Mass/Vol] 8.1 g/dL 6.4 - 8.2 g/dL [facility] Sodium [Moles/Vol] 137 mmol/L 136 - 145 mmol/L [facility] Urea nitrogen [Mass/Vol] 19 mg/dL 6 - 23 mg/dL [facility] Albumin BCP dye [Mass/Vol] 5.0 g/dL Normal 3.4-5.0 [facility] Comment on above: Performed By: #### 2 4323-8 #### LISSETTE NEAL (52611) [facility] ([facility]) [address] [place] [address] ALP [Catalytic activity/Vol] 89 U/L Normal 33-120 [facility] Comment on above: Performed By: #### 2 4323-8 #### LISSETTE NEAL (95451) [facility] ([facility]) [address] [place] [address] ALT With P-5'-P [Catalytic activity/Vol] 34 U/L Normal 10-52 [facility] Comment on above: Result Comment: Marilu ents treated with Sulfasalazine may generate falsely decreased results for ALT. Performed By: #### 2 4323-8 #### LISSETTE NEAL (77114) [facility] ([facility]) [address] [place] [address] Anion gap [Moles/Vol] 33 mmol/L High 10-20 [facility] Comment on above: Performed By: #### 2 4323-8 #### LISSETTE NEAL (43796) [facility] ([facility]) [address] [place] [address] AST With P-5'-P [Catalytic activity/Vol] 26 U/L Normal 9-39 [facility] Comment on above: Performed By: #### 2 4323-8 #### LISSETTE NEAL (54806) [facility] ([facility]) [address] [place] [address] Bilirubin [Mass/Vol] 1.3 mg/dL High 0.0-1.2 [facility] Comment on above: Performed By: #### 2 4323-8 #### LISSETTE NEAL (55272) [facility] ([facility]) [address] [place] [address] Calcium [Mass/Vol] 9.9 mg/dL Normal 8.6-10.3 [facility] Comment on above: Performed By: #### 2 4323-8 #### LISSETTE NEAL (46382) [facility] ([facility]) [address] [place] [address] Chloride [Moles/Vol] 99 mmol/L Normal 98-107 [facility] Comment on above: Performed By: #### 2 4323-8 #### LISSETTE NEAL (14224) [facility] ([facility]) [address] [place] [address] CO2 [Moles/Vol] 10 mmol/L Critically low 21-32 [facility] Comment on above: Performed By: #### 2 4323-8 #### LISSETTE NEAL (05778) [facility] ([facility]) [address] [place] [address] 32644 Creatinine [Mass/Vol] 1.42 mg/dL High 0.50-1.30 [facility] Comment on above: Performed By: #### 2 432-8 #### LISSETTE NEAL (32997) [facility] ([facility]) [address] [place] [address] 38247 Glomerular filtration rate/1.73 sq M.predicted 69 mL/min/1.73m*2 Normal >60 [facility] Comment on above: Result Comment: Calc ulations of estimated GFR are performed using the 2020 CKD-EPI Study Refit equation without the race variable for the IDMS-Traceable creatinine methods. https://jasn.asnjournals.org/content/early//ASN.89867 71613 Performed By: #### 2 432-8 #### LISSETTE NEAL (21491) [facility] ([facility]) [address] [place] [address] 85697 Glucose [Mass/Vol] 178 mg/dL High 74-99 [facility] Comment on above: Performed By: #### 2 4323-8 #### LISSETTE NEAL (01721) [facility] ([facility]) [address] [place] [address] 28692 Potassium [Moles/Vol] 4.5 mmol/L Normal 3.5-5.3 [facility] Comment on above: Performed By: #### 2 4323-8 #### LISSETTE NEAL (89252) [facility] ([facility]) [address] [place] [address] 53779 Protein [Mass/Vol] 8.1 g/dL Normal 6.4-8.2 [facility] Comment on above: Performed By: #### 2 432-8 #### LISSETTE NEAL (59254) [facility] ([facility]) [address] [place] [address] Sodium [Moles/Vol] 137 mmol/L Normal 136-145 [facility] Comment on above: Performed By: #### 2 4323-8 #### LISSETTE NEAL (26283) [facility] ([facility]) [address] [place] [address] Urea nitrogen [Mass/Vol] 19 mg/dL Normal 6-23 [facility] Comment on above: Performed By: #### 2 4323-8 #### [place] [facility] ([id number]) [facility] ([facility]) [facility] [place] [address] ECG 12-LEADon 03-01-2024 ECG 12-LEAD Ventricular Rate 139 Atrial Rate 139 P-R Interval 130 QRS Duration 78 Q-T Interval 296 QTC Calculation(Bazett) 450 P [place] 56 R [place] 65 T [place] 48 QRS Count 23 Q Onset 218 P Onset 153 P Offset 202 T Offset 366 QTC Fredericia 391 Diagnosis Sinus tachycardia Anterolateral infarct , age undetermined Abnormal ECG No previous ECGs available See ED provider note for full interpretation and clinical correlation Confirmed by Kaylan Rubio ([id number]) on 03/02/2024 11:21:20 AM Normal [facility] FLUAV and FLUBV RNA JUAN J+prob e Nom (Unsp spec)on 03-01-2024 FLUAV RNA JUAN J+probe Ql (Resp) Not detected Not Detected [facility] FLUBV RNA JUAN J+probe Ql (Resp) Not detected Not Detected [facility] This assay is an in vitro diagnostic multiplex nucleic acid amplification test for the detection and discrimination of Influenza A & B from nasopharyngeal specimens, and has been validated for use at [facility]. Negative results do not preclude Influenza A/B infections, and should not be used as the sole basis for diagnosis, treatment, or other management decisions. If Influenza A/B and RSV PCR results are negative, testing for Parainfluenza virus, Adenovirus and Metapneumovirus is routinely performed for [facility] [place] pediatric oncology and intensive care inpatients, and is available on other patients by placing an add-on request. [facility] FLUAV RNA JUAN J+probe Ql (Resp) Not detected Normal Not Detected [facility] Comment on above: Order Comment: This assay is an in vitro diagnostic multiplex nucleic acid amplification test for the detection and discrimination of Influenza A & B from nasopharyngeal specimens, and has been validated for use at [facility]. Negative results do not preclude Influenza A/B infections, and should not be used as the sole basis for diagnosis, treatment, or other management decisions. If Influenza A/B and RSV PCR results are negative, testing for Parainfluenza virus, Adenovirus and Metapneumovirus is routinely performed for [facility] [place] [place] pediatric oncology and intensive care inpatients, and is available on other patients by placing an add-on request. Performed By: #### 4 8509-4 #### LISSETTE NEAL (55881) [facility] ([facility]) [address] [place], [place] [id number] FLUBV RNA JUAN J+probe Ql (Resp) Not detected Normal Not Detected [facility] Comment on above: Order Comment: This assay is an in vitro diagnostic multiplex nucleic acid amplification test for the detection and discrimination of Influenza A & B from nasopharyngeal specimens, and has been validated for use at [facility]. Negative results do not preclude Influenza A/B infections, and should not be used as the sole basis for diagnosis, treatment, or other management decisions. If Influenza A/B and RSV PCR results are negative, testing for Parainfluenza virus, Adenovirus and Metapneumovirus is routinely performed for [facility] [place] [place] pediatric oncology and intensive care inpatients, and is available on other patients by placing an add-on request. Performed By: #### 4 8509-4 #### LISSETTE NEAL ([id number]) [facility] ([facility]) [address] [place] [id number] Gas panel (BldV)on 4 Base excess Calc (BldV) [Moles/Vol] -11.44962 mmol/L Low -2.0 - 3.0 mmol/L [facility] CO2 (BldV) [Partial pressure] 22 mm[Hg] Low [facility] HCO3 (Bld) [Moles/Vol] 11.9 mmol/L Low 22.0 - 26.0 mmol/L [facility] Inhaled oxygen concentration 21 % [facility] Interpretation and review of laboratory results Abnormal [facility] Oxygen (BldV) [Partial pressure] 49 mm[Hg] High [facility] Oxygen saturation in Venous blood 76 % High 45 - 75 % [facility] Oxyhemoglobin (BldV) [Mass fraction] 74.2 % 45.0 - 75.0 % [facility] pH (BldV) 7.34 [pH] 7.33 - 7.43 pH [facility] excess Calc (BldV) [Moles/Vol] -11.07635 mmol/L Low -2.0-3.0 [facility] Comment on above: Performed By: #### 2 4339-4 #### LISSETTE NEAL ([id number]) [facility] ([facility]) [address] [place] [address] 60440 CO2 (BldV) [Partial pressure] 22 mm Hg Low 41-51 [facility] Comment on above: Performed By: #### 2 4339-4 #### LISSETTE NEAL ([id number]) [facility] ([facility]) [address] [place] [address] 60164 HCO3 (Bld) [Moles/Vol] 11.9 mmol/L Low 22.0-26.0 [facility] Comment on above: Performed By: #### 2 4339-4 #### LISSETTE NEAL ([id number]) [facility] ([facility]) [address] [place] [address] 84137 Inhaled oxygen concentration 21 % Normal [facility] Comment on above: Performed By: #### 2 4339-4 #### LISSETTE NEAL ([id number]) [facility] ([facility]) [address] [place] [address] 70014 Oxygen (BldV) [Partial pressure] 49 mm Hg High 35-45 [facility] Comment on above: Performed By: #### 2 4339-4 #### LISSETTE NEAL ([id number]) [facility] ([facility]) [address] [place] [address] 14366 Oxygen saturation in Venous blood 76 % High 45-75 [facility] Comment on above: Performed By: #### 2 4339-4 #### LISSETTE NEAL ([id number]) [facility] ([facility]) [address] [place] [address] 26012 Oxyhemoglobin (BldV) [Mass fraction] 74.2 % Normal 45.0-75.0 [facility] Comment on above: Performed By: #### 2 4339-4 #### LISSETTE NEAL ([id number]) [facility] ([facility]) [address] [place] [address] 05934 pH (BldV) 7.34 [pH] Normal 7.33-7.43 [facility] Comment on above: Performed By: #### 2 4339-4 #### LISSETTE NEAL ([id number]) [facility] ([facility]) [address] [place], [place] [address] Glucose Test strip manual (B ld) [Mass/Vol]on 03-01-2024 Glucose [Mass/Vol] 151 mg/dL High 74 - 99 mg/dL [facility] Interpretation and review of laboratory results Abnormal [facility] Glucose [Mass/Vol] 151 mg/dL High 74-99 [facility] Comment on above: Performed By: #### 2 341-6 ####LISSETTE NEAL ([id number])[facility] ([facility])[address] [place], [place] [address] HbA1c (Bld) [Mass fraction]o n 03-01-2024 Average glucose Estimated from glycated hemoglobin (Bld) [Mass/Vol] 137 mg/dL Normal Not Established [facility] Comment on above: Order Comment: Diagn osis of Easvtber-DdazosNrs-Wydiivpl: < or = 5.6%Increased risk for developing diabetes: 5.7-6.4%Diagnostic of diabetes: > or = 6.5% Performed By: #### 2 4339-4 #### LISSETTE NEAL ([id number]) [facility] ([facility]) [address] [place], [place] [address] Hemoglobin A1c/Hemoglobin.to adarsh 03-01-2024 HbA1c (Bld) [Mass fraction] 6.4 % High See comment [facility] Comment on above: Order Comment: Diagn osis of Djinhhsy-YiiqkzXzs-Uvorklkp: < or = 5.6%Increased risk for developing diabetes: 5.7-6.4%Diagnostic of diabetes: > or = 6.5% Performed By: #### 2 4339-4 #### LISSETTE NEAL ([id number]) [facility] ([facility]) [facility] [place] [address] Lactateon 03-01-2024 Lactate [Moles/Vol] 1.1 mmol/L 0.4 - 2. 0 mmol/L [facility] Lactate [Moles/Vol] 1.1 mmol/L Normal 0.4-2.0 [facility] Comment on above: Order Comment: Venip uncture immediately after or during the administration of Metamizole may lead to falsely low results. Testing should be performed immediately prior to Metamizole dosing. Performed By: #### 2 524-7 #### LISSETTE NEAL ([id number]) [facility] ([facility]) [facility] [place] [address] Lactate [Moles/Vol]on 2023 Interpretation and review of laboratory results Normal [facility] Venipuncture immediately after or during the administration of Metamizole may lead to falsely low results. Testing should be performed immediately prior to Metamizole dosing. [facility] Lipaseon 03-01-2024 Lipase [Catalytic activity/Vol] 267 U/L High 9 - 82 U/L [facility] Lipase [Catalytic activity/V ol]on 03-01-2024 Venipuncture immediately after or during the administration of Metamizole may lead to falsely low results. Testing should be performed immediately prior to Metamizole dosing. [facility] Lipid 1996 panelon Cholesterol [Mass/Vol] 204 mg/dL High 0 - 199 mg/dL [facility] Comment on above: Age Desirable Borderline [...] dosing. Cholesterol in HDL [Mass/Vol] 74.0 mg/dL [facility] Comment on above: Age Very Low Low Normal High 0-19 Y < 35 < 40 40-45 ---- 20-24 Y ---- < 40 >45 ---- >24 Y ---- < 40 40-60 >60 Cholesterol in LDL [Mass/Vol] 87 mg/dL NINF - 99 mg/dL [facility] Comment on above: Near Borderline AGE Desirable Optimal High High Very High 0-19 Y 0 - 109 --- 110-129 >/= 130 ---- 20-24 Y 0 - 119 --- 120-159 >/= 160 ---- >24 Y 0 - 99 100-129 130-159 160-189 >/=190 Cholesterol in VLDL [Mass/Vol] 43 mg/dL High 0 - 40 mg/dL [facility] Cholesterol.total/Chol esterol in HDL [Mass ratio] 2.8 {ratio} [facility] Comment on above: Ref Values Desirable < 3.4 High Risk > 5.0 Interpretation and review of laboratory results Abnormal [facility] Non HDL Cholesterol 130 mg/dL 0 - 149 mg/dL [facility] Comment on above: Age Desirable Borderline High High Very High 0-19 Y 0 - 119 120 - 144 >/= 145 >/= 160 20-24 Y 0 - 149 150 - 189 >/= 190 ---- >24 Y 30 mg/dL above LDL Cholesterol goal Triglyceride [Mass/Vol] 214 mg/dL High 0 - 149 mg/dL [facility] Comment on above: Age Desirable Borderline [...] be performed immediately prior to Metamizole dosing. [facility] Cholesterol [Mass/Vol] 204 mg/dL High 0-199 [facility] Comment on above: Result Comment: Age Desirable [...] Performed By: #### 2 4331-1 ####LISSETTE NEAL ([id number])[facility] ([facility])[address] [place] [address] 92754 Cholesterol in HDL [Mass/Vol] 74.0 mg/dL Normal [facility] Comment on above: Result Comment: Age Very Low Low Normal High 0-19 Y < 35 < 40 40-45 ---- 20-24 Y ---- < 40 >45 ---- >24 Y ---- < 40 40-60 >60 Performed By: #### 2 4331-1 ####LISSETTE NEAL ([id number])[facility] ([facility] [place] [address] Cholesterol in LDL [Mass/Vol] 87 mg/dL Normal <=99 [facility] Comment on above: Result Comment: Near Borderline AGE Desirable Optimal High High Very High 0-19 Y 0 - 109 --- 110-129 >/= 130 ---- 20-24 Y 0 - 119 --- 120-159 >/= 160 ---- >24 Y 0 - 99 100-129 130-159 160-189 >/=190 Performed By: #### 2 4331-1 ####LISSETTE NEAL ([id number])[facility] ([facility])[address] [place] [address] 23264 Cholesterol in VLDL [Mass/Vol] 43 mg/dL High 0-40 [facility] Comment on above: Performed By: #### 2 4331-1 ####LISSETTE NEAL ([id number])[facility] ([facility])[address] [place] [address] 52981 CHOLESTEROL/HDL RATIO 2.8 Normal [facility] Comment on above: Result Comment: Ref Values Desirable < 3.4 High Risk > 5.0 Performed By: #### 2 4331-1 ####LISSETTE NEAL ([id number])[facility] ([facility])[address] [place] [address] 71434 NON HDL CHOLESTEROL 130 mg/dL Normal 0-149 [facility] Comment on above: Result Comment: Age Desirable Borderline High High Very High 0-19 Y 0 - 119 120 - 144 >/= 145 >/= 160 20-24 Y 0 - 149 150 - 189 >/= 190 ---- >24 Y 30 mg/dL above LDL Cholesterol goal Performed By: #### 2 4331-1 ####LISSETTE NEAL ([id number])[facility] ([facility])[address] [place] [address] 00075 Triglyceride [Mass/Vol] 214 mg/dL High 0-149 [facility] Comment on above: Result Comment: Age Desirable [...] Performed By: #### 2 4331-1 ####LISSETTE NEAL ([id number])[facility] ([facility])[address] [place] [address], [place] [address] No Panel Informationon 03-01 Interpretation and review of laboratory results Normal [facility] Interpretation and review of laboratory results Abnormal [facility] Potassiumon 03-01-2024 Potassium [Moles/Vol] 4.9 mmol/L Normal 3.5-5.3 [facility] Comment on above: Order Comment: [facility] [phone] to schedule Performed By: #### 2 823-3 ####MCLAUGHLIN VAL ([id number])[facility] ([facility] [place] [address] Potassium - 2 hours after IV infusion completeon 03-01-2024 Potassium [Moles/Vol] 4.9 mmol/L 3.5 - 5.3 mmol/L [facility] Potassium [Moles/Vol]on Interpretation and review of laboratory results Normal [facility] RSV PCRon 03-01-2024 RSV RNA JUAN J+probe Ql (Resp) Not detected Not Detected [facility] RSV RNA JUAN J+probe Ql (Resp)o n 03-01-2024 This assay is an FDA-cleared, in vitro diagnostic nucleic acid amplification test for the detection of RSV from nasopharyngeal specimens, and has been validated for use at [facility]. Negative results do not preclude RSV infections, and should not be used as the sole basis for diagnosis, treatment, or other management decisions. If Influenza A/B and RSV PCR results are negative, testing for Parainfluenza virus, Adenovirus and Metapneumovirus is routinely performed for pediatric oncology and intensive care inpatients at [facility] [place] [place], and is available on other patients by placing an add-on request. [facility] Respiratory syncytial virus RNAon 03-01-2024 RSV RNA JUAN J+probe Ql (Resp) Not detected Normal Not Detected [facility] Comment on above: Order Comment: This assay is an FDA-cleared, in vitro diagnostic nucleic acid amplification test for the detection of RSV from nasopharyngeal specimens, and has been validated for use at [facility]. Negative results do not preclude RSV infections, and should not be used as the sole basis for diagnosis, treatment, or other management decisions. If Influenza A/B and RSV PCR results are negative, testing for Parainfluenza virus, Adenovirus and Metapneumovirus is routinely performed for pediatric oncology and intensive care inpatients at [facility] [place] [place], and is available on other patients by placing an add-on request. Performed By: #### 9 2131-2 #### LISSETTE NEAL ([id number]) [facility] ([facility]) [address] [place] [address] SARS coronavirus 2 RNAon SARS-CoV-2 (COVID-19) RNA JUAN J+probe Ql (Resp) Not detected Normal Not Detected [facility] Comment on above: Order Comment: [facility] [phone] to schedule Performed By: #### 9 4500-6 ####LISSETTE NEAL ([id number])[facility] ([facility])[address] [place] [address] SARS-CoV-2 (COVID-19) RNA NA A+probe Ql (Resp)on [...] and has been validated for use at [facility]. Negative results do not preclude COVID-19 infections and should not be used as the sole basis for diagnosis, treatment, or other management decisions. [facility] Sars-CoV-2 PCRon 03-01-2024 SARS-CoV-2 (COVID-19) RNA JUAN J+probe Ql (Resp) Not detected Not Detected [facility] TSHon 03-01-2024 TSH Qn 2.87 m[IU]/L [facility] TSH Qnon 03-01-2024 Interpretation and review of laboratory results Normal [facility] TSH testing is performed using different testing methodology at [facility] than at other [facility]. Direct result comparisons should only be made within the same method. [facility] Thyrotropinon 03-01-2024 TSH Qn 2.87 m[IU]/L Normal 0.44-3.98 [facility] Comment on above: Order Comment: [facility] to schedule Performed By: #### 3 016-3 ####LISSETTE NEAL ([id number])[facility] ([facility])[address] [place] [address] Triacylglycerol lipaseon Lipase [Catalytic activity/Vol] 267 U/L High 9-82 [facility] Comment on above: Order Comment: Venip uncture immediately after or during the administration of Metamizole may lead to falsely low results. Testing should be performed immediately prior to Metamizole dosing. Performed By: #### 3 040-3 #### LISSETTE NEAL ([id number]) [facility] ([facility]) [address] [place] [address] Urinalysis complete W Reflex Culture panel (U)on 03-01-2024 Appearance (U) Clear Clear [facility] Bilirubin (U) [Mass/Vol] Negative NEGATIVE [facility] Color (U) Light-Yellow Light-Yellow, Yellow, Dark-Yellow [facility] Glucose Auto test strip (U) [Mass/Vol] 300 (3+) Abnormal Normal mg/dL [facility] Hyaline casts Auto (Urine sed) [#/Area] 2+ Abnormal NONE /LPF [facility] Interpretation and review of laboratory results Abnormal [facility] Ketones (U) [Mass/Vol] OVER (4+) Abnormal NEGAT PATRICK mg/dL [facility] Leukocyte esterase Auto test strip Ql (U) Negative NEGATIVE [facility] Mucus Auto (Urine sed) [#/Area] FEW Reference range not established. /LPF [facility] Nitrite Auto test strip Ql (U) Negative NEGATIVE [facility] pH (U) 6.0 [pH] 5.0, 5.5, 6.0, 6.5, 7.0, 7.5, 8.0 [facility] Protein (U) [Mass/Vol] 300 (3+) Abnormal NEGAT PATRICK, 10 (TRACE), 20 (TRACE) mg/dL [facility] RBC (U) [#/Vol] 0.03 (TRACE) Abnormal NEGATIVE [facility] RBC Auto (Urine sed) [#/Area] 1-2 NONE, 1-2, 3-5 /HPF [facility] Specific gravity (U) [Rel density] 1.041 Abnormal 1.005 - 1.035 [facility] Urobilinogen (U) [Mass/Vol] 2 (1+) Abnormal Normal mg/dL [facility] Comment on above: Due to a manufacturi [...] (Urine sed) [#/Area] 1-5 1-5, NONE /HPF [facility] OVER is reported whe n the result is greater than the clinically reportable range. [facility] Appearance (U) Clear Normal Clear [facility] Comment on above: Order Comment: [facility] to schedule Performed By: #### 5 8077-9 ####LISSETTE NEAL ([id number])[facility] ([facility])[address] [place] [address] Bilirubin (U) [Mass/Vol] Negative Normal NEGATIVE [facility] Comment on above: Order Comment: [facility] to schedule Performed By: #### 5 8077-9 ####LISSETTE NEAL ([id number])[facility] ([facility])[address] [place] [address] 26900 Color (U) Light-Yellow Normal Light-Yellow, Yellow, Dark-Yellow [facility] Comment on above: Order Comment: [facility] to schedule Performed By: #### 5 8077-9 ####LISSETTE NEAL ([id number])[facility] ([facility])[address] [place] [address] Glucose Auto test strip (U) [Mass/Vol] 300 (3+) Abnormal Normal [facility] Comment on above: Order Comment: [facility] to schedule Performed By: #### 5 8077-9 ####LISSETTE NEAL ([id number])[facility] ([facility])[address] [place] [address] Hyaline casts Auto (Urine sed) [#/Area] 2+ /LPF Abnormal NONE [facility] Comment on above: Performed By: #### 5 8077-9 ####LISSETTE NEAL ([id number])[facility] ([facility])[address] [place] [address] Ketones (U) [Mass/Vol] OVER (4+) Abnormal NEGATIVE [facility] Comment on above: Order Comment: [facility] to schedule Performed By: #### 5 8077-9 ####LISSETTE NEAL ([id number])[facility] ([facility])[address] [place] [address] Leukocyte esterase Auto test strip Ql (U) Negative Normal NEGATIVE [facility] Comment on above: Order Comment: [facility] to schedule Performed By: #### 5 8077-9 ####LISSETTE NEAL ([id number])[facility] ([facility])[address] [place] [address] Mucus Auto (Urine sed) [#/Area] FEW Normal Reference range not established. [facility] Comment on above: Performed By: #### 5 8077-9 ####LISSETTE NEAL ([id number])[facility] ([facility])[address] [place], [place] [address] Nitrite Auto test strip Ql (U) Negative Normal NEGATIVE [facility] Comment on above: Order Comment: [facility] to schedule Performed By: #### 5 8077-9 ####LISSETTE NEAL ([id number])[facility] ([facility])[address] [place] [address] pH (U) 6.0 [pH] Normal 5.0, 5.5, 6.0, 6.5, 7.0, 7.5, 8.0 [facility] Comment on above: Order Comment: [facility] to schedule Performed By: #### 5 8077-9 ####LISSETTE NEAL ([id number])[facility] ([facility])[address] [place] [address] Protein (U) [Mass/Vol] 300 (3+) Abnormal NEGAT PATRICK, 10 (TRACE), 20 (TRACE) [facility] Comment on above: Order Comment: [facility] to schedule Performed By: #### 5 8077-9 ####LISSETET NEAL ([id number])[facility] ([facility])[address] [place] [address] RBC (U) [#/Vol] 0.03 (TRACE) Abnormal NEGATIVE [facility] Comment on above: Order Comment: [facility] to schedule Performed By: #### 5 8077-9 ####LISSETTE NEAL ([id number])[facility] ([facility])[address] [place] [address] RBC Auto (Urine sed) [#/Area] 1-2 Normal NONE, 1-2, 3-5 [facility] Comment on above: Performed By: #### 5 8077-9 ####LISSETTE NEAL ([id number])[facility] ([facility])[address] [place] [address] Specific gravity (U) [Rel density] 1.041 Normal 1.005-1.035 [facility] Comment on above: Order Comment: [facility] to schedule Performed By: #### 5 8077-9 ####LISSETTE NEAL ([id number])[facility] ([facility])[address] [place] [address] Urobilinogen (U) [Mass/Vol] 2 (1+) Abnormal Normal [facility] Comment on above: Order Comment: [facility] to schedule Result Comment: Due to a [...] Performed By: #### 5 8077-9 ####LISSETTE NEAL ([id number])[facility] ([facility])[address] [place], [place] [address] WBC Auto (Urine sed) [#/Area] 1-5 Normal 1-5, NONE [facility] Comment on above: Performed By: #### 5 8077-9 ####LISSETTE NEAL ([id number])[facility] ([facility])[address] [place] [address] 948[address] Comprehensive metabolic 2000 panelon 12-15-2023 Albumin BCP dye [Mass/Vol] 4.6 g/dL Normal 3.4-5.0 [facility] Comment on above: Performed By: #### 5 3315-8 #### TRE Nichols ([id number]) [facility] ([facility]) [address] [place] [address] ALP [Catalytic activity/Vol] 80 U/L Normal 33-120 [facility] Comment on above: Performed By: #### 5 3315-8 #### TRE Nichols ([id number]) [facility] ([facility]) [address] [place] [address] ALT With P-5'-P [Catalytic activity/Vol] 61 U/L High 10-52 [facility] Comment on above: Result Comment: Marilu ents treated with Sulfasalazine may generate falsely decreased results for ALT. Performed By: #### 5 3315-8 #### TRE ROSE L ([id number]) [facility] ([facility]) [address] [place] [address] Anion gap [Moles/Vol] 15 mmol/L Normal 10-20 [facility] Comment on above: Performed By: #### 5 3315-8 #### TRE Nichols ([id number]) [facility] ([facility]) [address] [place] [address] AST With P-5'-P [Catalytic activity/Vol] 57 U/L High 9-39 [facility] Comment on above: Performed By: #### 5 3315-8 #### TRE Nichols ([id number]) [facility] ([facility]) [address] [place] [address] Bilirubin [Mass/Vol] 0.8 mg/dL Normal 0.0-1.2 [facility] Comment on above: Performed By: #### 5 331-8 #### TRE Nichols ([id number]) [facility] ([facility]) [address] [place] [address] Calcium [Mass/Vol] 9.8 mg/dL Normal 8.6-10.6 [facility] Comment on above: Performed By: #### 5 3315-8 #### TRE Nichols ([id number]) [facility] ([facility]) [address] [place] [address] Chloride [Moles/Vol] 98 mmol/L Normal 98-107 [facility] Comment on above: Performed By: #### 5 3315-8 #### TRE Nichols ([id number]) [facility] ([facility]) [address] [place] [address] CO2 [Moles/Vol] 32 mmol/L Normal 21-32 [facility] Comment on above: Performed By: #### 5 3315-8 #### TRE Nichols ([id number]) [facility] ([facility]) [address] [place] [address] Creatinine [Mass/Vol] 0.86 mg/dL Normal 0.50-1.30 [facility] Comment on above: Performed By: #### 5 3315-8 #### TRE Nichols ([id number]) [facility] ([facility]) [address] [place] [address] GFR/1.73 sq M.predicted MDRD (S/P/Bld) [Vol rate/Area] mL/min/{1.73_m2} Normal >60 [facility] Comment on above: Result Comment: Calc ulations of estimated GFR are performed using the 2020 CKD-EPI Study Refit equation without the race variable for the IDMS-Traceable creatinine methods. https://jasn.asnjournals.org/content//ASN.95049 31881 Performed By: #### 5 3315-8 #### TRE Nichols ([id number]) [facility] ([facility]) [address] [place] [address] Glucose [Mass/Vol] 143 mg/dL High 74-99 [facility] Comment on above: Performed By: #### 5 3315-8 #### TRE ROSE L ([id number]) [facility] ([facility]) [address] [place] [address] Potassium [Moles/Vol] 3.6 mmol/L Normal 3.5-5.3 [facility] Comment on above: Performed By: #### 5 3315-8 #### TRE ROSE L ([id number]) [facility] ([facility]) [address] [place] [address] Protein [Mass/Vol] 7.3 g/dL Normal 6.4-8.2 [facility] Comment on above: Performed By: #### 5 3315-8 #### TRE SAINZMOJESI L ([id number]) [facility] ([facility]) [address] [place] [address] 994[address] Sodium [Moles/Vol] 141 mmol/L Normal 136-145 [facility] Comment on above: Performed By: #### 5 3315-8 #### TRE SAINZMOJESI L ([id number]) [facility] ([facility]) [address] [place] [address]15 Urea nitrogen [Mass/Vol] 10 mg/dL Normal 6-23 [facility] Comment on above: Performed By: #### 5 3315-8 #### TRE Nichols ([id number]) [facility] ([facility]) [address] [place] [address] Urateon 12-15-2023 Urate [Mass/Vol] 6.2 mg/dL Normal 4.0-7.5 [facility] Comment on above: Result Comment: Nina puncture immediately after or during the administration of Metamizole may lead to falsely low results. Testing should be performed immediately prior to Metamizole dosing. Performed By: #### 5 3315-8 #### TRE Nichols ([id number]) [facility] ([facility]) [address] [place] [address] US BILIARY SYSTEMon 12-11-19 US BILIARY SYSTEM Interpreted By: Mukesh Paredes, STUDY: US BILIARY SYSTEM 12/11/2023 3:51 pm INDICATION: 28 y/o M with Signs/Symptoms:liver pain. COMPARISON: None. ACCESSION NUMBER(S): [id number] ORDERING CLINICIAN: DEXTER DANIEL TECHNIQUE: Routine ultrasound [...] Mukesh Paredes 12/12/2023 5:59 PM Dictation workstation: [id number] [facility] Comment on above: Order Comment: To Hiro bowen Call [phone] US RENAL COMPLETEon 07-18-20 24 US RENAL COMPLETE Interpreted By: Mukesh Paredes, STUDY: US RENAL COMPLETE; 12/11/2023 12:10 pm INDICATION: Signs/Symptoms:ckd. COMPARISON: None. ACCESSION NUMBER(S): [id number] ORDERING CLINICIAN: DEXTER DANIEL TECHNIQUE: Grayscale and [...] Mukesh Paredes 12/12/2023 9:44 PM Dictation workstation: [id number] [facility] Comment on above: Order Comment: [facility] [phone] to schedule Absolute lymphocyte countOrd ered By: Lavell Patel on 09-04-2023 Lymphocytes Auto (Unsp spec) [#/Vol] 4.53 10*3/uL 0.83-4.51 [facility] Automated lymphocyte count a s percentage of total leukocytesOrdered By: Lavell Patel on 09-04-2023 Lymphocytes/100 WBC Auto (Unsp spec) 45.7 % 19-41 [facility] Basophil percentageOrdered B y: Lavell Patel on 09-04-2023 Basophils/100 WBC (Bld) 1.4 % 0-1 [facility] Bilirubin [Mass/Vol] 1.10 mg/dL 0.20-1.00 [facility] Comment on above: For patients on eltr ombopag therapy, use of Dimension [place] TBIL is not recommended. Chloride [Moles/Vol] 103 mmol/L 98-107 [facility] Eosinophils/100 WBC (Bld) 0.1 % 0-5 [facility] Glucose [Mass/Vol] 178 mg/dL 74-106 [facility] Comment on above: Fasting Glucose resu lt greater than or equal to 126 mg/dL suggests DIABETES MELLITUS per A.D.A. criteria. Hemoglobin (Bld) [Mass/Vol] 15.1 g/dL 13.0-16.5 [facility] Monocytes/100 WBC (Bld) 9.4 % 0-10 [facility] Neutrophils (Bld) [#/Vol] 4.3 10*3/uL 2.0-7.7 [facility] Neutrophils/100 WBC (Bld) 43.0 % 47-70 [facility] Potassium [Moles/Vol] 3.5 mmol/L 3.5-5.1 [facility] Protein [Mass/Vol] 7.1 g/dL 6.4-8.2 [facility] Sodium [Moles/Vol] 138 mmol/L 136-145 [facility] WBC (Bld) [#/Vol] 9.9 10*3/uL 4.4-11.0 [facility] Blood manual differential co mment interpretation (narrative result)Ordered By: Lavell Patel on 09-04-2023 Manual differential comment Gabriel (Bld) [Interp] SCANNED [facility] Determination of erythrocyte mean corpuscular volume (MCV)Ordered By: Lavell Patel on 09-04-2023 MCV (RBC) [Entitic vol] 87.4 fL 80-94 [facility] Erythrocyte distribution wid th ratioOrdered By: Lavell Patel on 09-04-2023 Erythrocyte distribution width (RBC) [Ratio] 12.9 % 11.6-14.6 [facility] Erythrocyte distribution wid th standard deviationOrdered By: Lavell Patel on 09-04-2023 Erythrocyte distribution width (RBC) [Entitic vol] 41.1 fL 35.1-43.9 [facility] Hematocrit Auto (Bld) [Volum e fraction]Ordered By: Lavell Patel on 09-04-2023 Hematocrit (Bld) [Volume fraction] 43.2 % 40-54 [facility] Immature granulocytes/100 WB C Auto (Bld)Ordered By: Lavell Patel on 09-04-2023 Immature granulocytes/100 WBC (Bld) 0.400 % 0.0-0.9 [facility] Comment on above: IG% - Immature Granu locytes (promyelocytes, myelocytes and metamyelocytes) > 1% indicates that a LEFT SHIFT is Present. Laboratory - Chemistry and C hemistry - challengeOrdered By: Lavell Patel on 09-04-2023 Albumin/Globulin [Mass ratio] 1.0 {ratio} 0.9-2.4 [facility] ALP [Catalytic activity/Vol] 151 U/L 45-117 [facility] ALT [Catalytic activity/Vol] 86 U/L 16-61 [facility] CO2 [Moles/Vol] 26.0 mmol/L 21.0-32.0 [facility] Globulin (S) [Mass/Vol] 3.6 g/dL 2.2-4.2 [facility] Urea nitrogen/Creatinine [Mass ratio] 9.4 mg/mg 10-20 [facility] Laboratory - Hematology and Cell countsOrdered By: Lavell Patel on 09-04-2023 MCH (RBC) [Entitic mass] 30.6 pg 27.0-32.0 [facility] MCHC (RBC) [Mass/Vol] 35.0 g/dL 32-36 [facility] Nucleated RBC/100 WBC (Bld) [Ratio] 0 % 0-5 [facility] Platelet mean volume (Bld) [Entitic vol] 9.4 fL 6.2-12.0 [facility] Platelets (Bld) [#/Vol] 177 10*3/uL 150-450 [facility] No Panel InformationOrdered By: Lavell Patel on 09-04-2023 Atypical Lymphocytes 1+ % [facility] Estimated Creatinine Clearance Calc 130.62 ml/min [facility] Estimated GFR (MDRD) Amer 121 mL/min >60 [facility] Comment on above: GFR Calc Estimated GFR (MDRD) Non-Af Amer 100 mL/min >60 [facility] Comment on above: Non- GFR Calc RBC Auto (Bld) [#/Vol]Ordere d By: Lavell Patel on 09-04-2023 RBC (Bld) [#/Vol] 4.94 10*6/uL 4.6-6.2 [facility] Serum or plasma calcium bucky urement (mass/volume)Ordered By: Lavell Patel on 09-04-2023 Calcium [Mass/Vol] 8.9 mg/dL 8.5-10.1 [facility] Serum or plasma creatinine m easurement (mass/volume)Ordered By: Lavell Patel on 09-04-2023 Creatinine [Mass/Vol] 0.96 mg/dL 0.70-1.30 [facility] Comment on above: The validity of the calculated GFR & GFRAA in patients over 70 years has not been determined. Clinical correlation is essential. Serum or plasma urea nitroge n measurement (mass/volume)Ordered By: Lavell Patel on 09-04-2023 Urea nitrogen [Mass/Vol] 9 mg/dL 7-18 [facility] Thin prep Papanicolaou smear with manual screeningOrdered By: Lavell Patel on 09-04-2023 Thin prep Papanicolaou smear with manual screening 3.5 g/dL 3.2-5.0 [facility] Thin prep Papanicolaou smear with manual screening 130 U/L 15 [facility] Thin prep Papanicolaou smear with manual screening 9 5-15 [facility] Laboratory - Hematology and Cell countson 08-15-2023 HbA1c (Bld) [Mass fraction] 9.0 % 4.2-6.3 [facility] Albumin/Creatinineon 024 Albumin/Creatinine DL <= 20 mg/L (U) [Mass ratio] 791.1 ug/mg Creat High <30.0 [facility] Comment on above: Performed By: #### 1 4959-1 #### TRE Nichols ([id number]) [facility] ([facility]) [id number] [place] [address] Albumin/Creatinine DL <= 20 mg/L (U) [Mass ratio]on 06-09-2023 Albumin DL <= 20 mg/L (U) [Mass/Vol] 425.6 mg/L Normal Not established [facility] Comment on above: Performed By: #### 1 4959-1 #### TRE Nichols ([id number]) [facility] ([facility]) [address] [place] [address] Creatinine (U) [Mass/Vol] 53.8 mg/dL Normal 20.0-370.0 [facility] Comment on above: Performed By: #### 1 4959-1 #### TRE Nichols ([id number]) [facility] ([facility]) [address] [place] [address] 85102 CBC W Auto Differential pane l (Bld)on 06-09-2023 Basophils (Bld) [#/Vol] 0.06 x10*3/uL Normal 0.00-0.10 [facility] Comment on above: Performed By: #### 5 7021-8 #### TRE Nichols ([id number]) [facility] ([facility]) [address] [place] [address] Basophils/100 WBC (Bld) 1.1 % Normal 0.0-2.0 [facility] Comment on above: Performed By: #### 5 7021-8 #### TRE Nichols ([id number]) [facility] ([facility]) [address] [place] [address] Eosinophils (Bld) [#/Vol] 0.15 x10*3/uL Normal 0.00-0.70 [facility] Comment on above: Performed By: #### 5 7021-8 #### TRE Nichols ([id number]) [facility] ([facility]) [address] [place] [address]207 Eosinophils/100 WBC (Bld) 2.6 % Normal 0.0-6.0 [facility] Comment on above: Performed By: #### 5 7021-8 #### TRE Nichols ([id number]) [facility] ([facility]) [address] [place] [address] 02325 Erythrocyte distribution width (RBC) [Ratio] 12.9 % Normal 11.5-14.5 [facility] Comment on above: Performed By: #### 5 7021-8 #### TRE Nichols ([id number]) [facility] ([facility]) [address] [place] [address]805 Hematocrit (Bld) [Volume fraction] 47.4 % Normal 41.0-52.0 [facility] Comment on above: Performed By: #### 5 7021-8 #### TRE HENRYER Magdalena ([id number]) [facility] ([facility]) [address] [place] [address] Hemoglobin (Bld) [Mass/Vol] 16.4 g/dL Normal 13.5-17.5 [facility] Comment on above: Performed By: #### 5 7021-8 #### TRE SAINZMOTZER L ([id number]) [facility] ([facility]) [address] [place] [address] 80254 Immature granulocytes (Bld) [#/Vol] 0.02 x10*3/uL Normal 0.00-0.70 [facility] Comment on above: Performed By: #### 5 7021-8 #### TRE ROSE L ([id number]) [facility] ([facility]) [address] [place] [address] 48693 Immature granulocytes/100 WBC (Bld) 0.4 % Normal 0.0-0.9 [facility] Comment on above: Result Comment: Suzanne ture Granulocyte Count (IG) includes promyelocytes, myelocytes and metamyelocytes but does not include bands. Percent differential counts (%) should be interpreted in the context of the absolute cell counts (cells/UL). Performed By: #### 5 7021-8 #### TRE Nichols ([id number]) [facility] ([facility]) [address] [place] [address] Lymphocytes (Bld) [#/Vol] 2.00 x10*3/uL Normal 1.20-4.80 [facility] Comment on above: Performed By: #### 5 7021-8 #### TRE ROSE L ([id number]) [facility] ([facility]) [address] [place] [address] Lymphocytes/100 WBC (Bld) 35.3 % Normal 13.0-44.0 [facility] Comment on above: Performed By: #### 5 7021-8 #### TRE SAINZMOTZANNA L ([id number]) [facility] ([facility]) [address] [place] [address] 20540 MCH (RBC) [Entitic mass] 30.7 pg Normal 26.0-34.0 [facility] Comment on above: Performed By: #### 5 7021-8 #### TRE Nichols ([id number]) [facility] ([facility]) [address] [place] [address] 72384 MCHC (RBC) [Mass/Vol] 34.6 g/dL Normal 32.0-36.0 [facility] Comment on above: Performed By: #### 5 7021-8 #### TRE Nichols ([id number]) [facility] ([facility]) [address] [place] [address] 07819 MCV (RBC) [Entitic vol] 89 fL Normal 80-100 [facility] Comment on above: Performed By: #### 5 7021-8 #### TRE Nichols ([id number]) [facility] ([facility]) [address] [place] [address] 51596 Monocytes (Bld) [#/Vol] 0.68 x10*3/uL Normal 0.10-1.00 [facility] Comment on above: Performed By: #### 5 7021-8 #### TRE Nichols ([id number]) [facility] ([facility]) [address] [place] [address] 69338 Monocytes/100 WBC (Bld) 12.0 % Normal 2.0-10.0 [facility] Comment on above: Performed By: #### 5 7021-8 #### TRE Nichols ([id number]) [facility] ([facility]) [address] [place] [address] 29070 Neutrophils (Bld) [#/Vol] 2.76 x10*3/uL Normal 1.20-7.70 [facility] Comment on above: Result Comment: Perc ent differential counts (%) should be interpreted in the context of the absolute cell counts (cells/uL). Performed By: #### 5 7021-8 #### TRE Nichols ([id number]) [facility] ([facility]) [address] [place] [address] 92583 Neutrophils/100 WBC (Bld) 48.6 % Normal 40.0-80.0 [facility] Comment on above: Performed By: #### 5 7021-8 #### TRE Nichols ([id number]) [facility] ([facility]) [address] [place] [address] 60570 Nucleated RBC/100 WBC (Bld) [Ratio] 0.0 /100 WBCs Normal 0.0-0.0 [facility] Comment on above: Performed By: #### 5 7021-8 #### TRE Nichols ([id number]) [facility] ([facility]) [address] [place] [address] 03437 Platelets (Bld) [#/Vol] 185 x10*3/uL Normal 150-450 [facility] Comment on above: Performed By: #### 5 7021-8 #### TRE Nichols ([id number]) [facility] ([facility]) [address] [place] [address] 10973 RBC (Bld) [#/Vol] 5.34 x10*6/uL Normal 4.50-5.90 [facility] Comment on above: Performed By: #### 5 7021-8 #### TRE Nichols ([id number]) [facility] ([facility]) [id number] [place] [address] 27836 WBC (Bld) [#/Vol] 5.7 x10*3/uL Normal 4.4-11.3 [facility] Comment on above: Performed By: #### 5 7021-8 #### TRE Nichols ([id number]) [facility] ([facility]) [address] [place] [address] 69063 Cobalaminson 06-09-2023 Cobalamin (Vitamin B12) [Mass/Vol] 275 pg/mL Normal 211-911 [facility] Comment on above: Performed By: #### 2 132-9 #### TRE Nichols ([id number]) [facility] ([facility]) [address] [place] [address] 61067 Comprehensive metabolic 2000 panelon 06-09-2023 Albumin BCP dye [Mass/Vol] 5.3 g/dL High 3.4-5.0 [facility] Comment on above: Performed By: #### 2 4323-8 #### TRE Nichols ([id number]) [facility] ([facility]) [address] [place] [address] 15343 ALP [Catalytic activity/Vol] 74 U/L Normal 33-120 [facility] Comment on above: Performed By: #### 2 4323-8 #### TRE Nichols ([id number]) [facility] ([facility]) [address] [place] [address] 52916 ALT With P-5'-P [Catalytic activity/Vol] 35 U/L Normal 10-52 [facility] Comment on above: Result Comment: Marilu ents treated with Sulfasalazine may generate falsely decreased results for ALT. Performed By: #### 2 4323-8 #### TRE Nichols ([id number]) [facility] ([facility]) [address] [place] [address] 84974 Anion gap [Moles/Vol] 18 mmol/L Normal 10-20 [facility] Comment on above: Performed By: #### 2 4323-8 #### TRE Nichols ([id number]) [facility] ([facility]) [address] [place] [address] 40590 AST With P-5'-P [Catalytic activity/Vol] 26 U/L Normal 9-39 [facility] Comment on above: Performed By: #### 2 4323-8 #### TRE ROSE L ([id number]) [facility] ([facility]) [address] [place] [address] 27565 Bilirubin [Mass/Vol] 0.5 mg/dL Normal 0.0-1.2 [facility] Comment on above: Performed By: #### 2 4323-8 #### TRE Nichols ([id number]) [facility] ([facility]) [address] [place] [address] Calcium [Mass/Vol] 10.1 mg/dL Normal 8.6-10.6 [facility] Comment on above: Performed By: #### 2 4323-8 #### TRE Nichols ([id number]) [facility] ([facility]) [address] [place] [address] Chloride [Moles/Vol] 99 mmol/L Normal 98-107 [facility] Comment on above: Performed By: #### 2 4323-8 #### TRE ROSE L ([id number]) [facility] ([facility]) [address] [place] [address] CO2 [Moles/Vol] 27 mmol/L Normal 21-32 [facility] Comment on above: Performed By: #### 2 4323-8 #### TRE Nichols ([id number]) [facility] ([facility]) [address] [place] [address] Creatinine [Mass/Vol] 0.83 mg/dL Normal 0.50-1.30 [facility] Comment on above: Performed By: #### 2 4323-8 #### TRE ROSE L ([id number]) [facility] ([facility]) [address] [place] [address] GFR/1.73 sq M.predicted MDRD (S/P/Bld) [Vol rate/Area] mL/min/{1.73_m2} Normal >60 [facility] Comment on above: Result Comment: Calc ulations of estimated GFR are performed using the 2020 CKD-EPI Study Refit equation without the race variable for the IDMS-Traceable creatinine methods. https://jasn.asnjournals.org/content//ASN.78109 22940 Performed By: #### 2 4323-8 #### TRE Nichols ([id number]) [facility] ([facility]) [address] [place] [address] Glucose [Mass/Vol] 250 mg/dL High 74-99 [facility] Comment on above: Performed By: #### 2 4323-8 #### TRE GODWINTZER L ([id number]) [facility] ([facility]) [address] [place] [address] 53884 Potassium [Moles/Vol] 4.0 mmol/L Normal 3.5-5.3 [facility] Comment on above: Performed By: #### 2 4323-8 #### TRE SAINZMOTZER L ([id number]) [facility] ([facility]) [address] [place] [address] 69285 Protein [Mass/Vol] 7.6 g/dL Normal 6.4-8.2 [facility] Comment on above: Performed By: #### 2 4323-8 #### TRE SAINZMOTZER L ([id number]) [facility] ([facility]) [address] [place] [address] 57310 Sodium [Moles/Vol] 140 mmol/L Normal 136-145 [facility] Comment on above: Performed By: #### 2 4323-8 #### TRE HENRYER L ([id number]) [facility] ([facility]) [address] [place] [address] 41313 Urea nitrogen [Mass/Vol] 13 mg/dL Normal 6-23 [facility] Comment on above: Performed By: #### 2 4323-8 #### TRE GODWINTZER L ([id number]) [facility] ([facility]) [address] [place] [address] 21141 Drugs of abuse screen W Refl ex confirm panel (U)on 06-09-2023 Amphetamines Screen Ql (U) Negative Normal Presumptive Negative [facility] Comment on above: Order Comment: [...] By: #### 5 3315-8 #### TRE Nichols ([id number]) [facility] ([facility]) [address] [place] [address] Barbiturates Screen Ql (U) Negative Normal Presumptive Negative [facility] Comment on above: Order Comment: [...] #### 5 3315-8 #### TRE SAINZMOTZER L ([id number]) [facility] ([facility]) [address] [place] [address] 79856 Benzodiazepines Ql (U) Negative Normal Presu mptive Negative [facility] Comment on above: Order Comment: [...] By: #### 5 3315-8 #### TRE Nichols ([id number]) [facility] ([facility]) [address] [place] [address] Benzoylecgonine Screen Ql (U) Negative Normal Presumptive Negative [facility] Comment on above: Order Comment: [...] By: #### 5 3315-8 #### TRE Nichols ([id number]) [facility] ([facility]) [address] [place], [place] [address] Cannabinoids Screen Ql (U) Negative Normal Presumptive Negative [facility] Comment on above: Order Comment: [...] By: #### 5 3315-8 #### TRE Nichols ([id number]) [facility] ([facility]) [address] [place] [address] fentaNYL+Norfentanyl Screen Ql (U) Negative Normal Presumptive Negative [facility] Comment on above: Order Comment: [...] By: #### 5 3315-8 #### TRE Nichols ([id number]) [facility] ([facility]) [address] [place] [address] Opiates Screen Ql (U) Negative Normal Presum ptive Negative [facility] Comment on above: Order Comment: [...] By: #### 5 3315-8 #### TRE Nichols ([id number]) [facility] ([facility]) [address] [place] [address] 07366 oxyCODONE+oxyMORphone Screen Ql (U) Negative Normal Presumptive Negative [facility] Comment on above: Order Comment: [...] By: #### 5 3315-8 #### TRE Nichols ([id number]) [facility] ([facility]) [address] [place] [address] 01472 Phencyclidine Ql (U) Negative Normal Presump tive Negative [facility] Comment on above: Order Comment: [...] By: #### 5 3315-8 #### TRE Nichols ([id number]) [facility] ([facility]) [address] [place], [place] [address] HIV 1+2 Ab+HIV1 p24 Agon HIV 1+2 Ab+HIV1 p24 Ag IA Ql Non-Reactive Normal Nonreactive [facility] Comment on above: Order Comment: HIV A g/Ab screen is performed using the Siemens fluid OperationsllLinPrim HIV Ag/Ab Combo assay which detects the presence of HIV p24 antigen as well as antibodies to HIV-1 (Group M and O) and HIV-2.No laboratory evidence of HIV infection. If acute HIV infection is suspected, consider testing for HIV RNA by PCR (viral load). Performed By: #### 5 3315-8 #### TRE Nichols ([id number]) [facility] ([facility]) [address] [place] [address] 22931 HbA1c (Bld) [Mass fraction]o n 06-09-2023 Average glucose Estimated from glycated hemoglobin (Bld) [Mass/Vol] 220 mg/dL Normal Not Established [facility] Comment on above: Order Comment: Diagn osis of Qezwebnj-NijvzaQkd-Wujdarad: < or = 5.6%Increased risk for developing diabetes: 5.7-6.4%Diagnostic of diabetes: > or = 6.5%Monitoring of DiabetesAge (y)....................... Therapeutic Goal (%)Adults: >18.........................<7.0Pediatrics: 13-18...................<7.5Pediatrics: 7-12....................<8.0Pediatrics: 0-6..................... 7.5-8.5American Diabetes Association. Diabetes Care 33(S1)May 2009 Performed By: #### 5 3315-8 #### TRE Nichols ([id number]) [facility] ([facility]) [address] [place] [address] Hemoglobin A1c/Hemoglobin.to adarsh 06-09-2023 HbA1c (Bld) [Mass fraction] 9.3 % High see below [facility] Comment on above: Order Comment: Diagn osis of Cgdowuil-UxoealDre-Mabbfnaj: < or = 5.6%Increased risk for developing diabetes: 5.7-6.4%Diagnostic of diabetes: > or = 6.5%Monitoring of DiabetesAge (y)....................... Therapeutic Goal (%)Adults: >18.........................<7.0Pediatrics: 13-18...................<7.5Pediatrics: 7-12....................<8.0Pediatrics: 0-6..................... 7.5-8.5American Diabetes Association. Diabetes Care 33(S1)May 2009 Performed By: #### 5 3315-8 #### TRE Nichols ([id number]) [facility] ([facility]) [address] [place] [address] Hepatitis C virus Abon 06-09 HCV Ab Ql (S) Non-Reactive Normal Nonreactive [facility] Comment on above: Result Comment: Resu lts from patients taking biotin supplements or receiving high-dose biotin therapy should be interpreted with caution due to possible interference with this test. Providers may contact their local laboratory for further information. Performed By: #### 5 3315-8 #### TRE Nichols ([id number]) [facility] ([facility]) [id number] [place] [address] 05006 Iron and Iron binding capaci ty panelon 06-09-2023 Iron [Mass/Vol] 77 ug/dL Normal 35-150 [facility] Comment on above: Performed By: #### 5 0190-8 #### TRE Nichols ([id number]) [facility] ([facility]) [address] [place] [address] 77060 Iron binding capacity [Mass/Vol] 381 ug/dL Normal 240-445 [facility] Comment on above: Performed By: #### 5 0190-8 #### TRE Nichols ([id number]) [facility] ([facility]) [id number] [place] [address] 50089 Iron binding capacity.unsaturated [Mass/Vol] 304 ug/dL Normal 110-370 [facility] Comment on above: Performed By: #### 5 0190-8 #### TRE Nichols ([id number]) [facility] ([facility]) [address] [place] [address] 41514 Iron saturation [Mass fraction] 20 % Low 25-45 [facility] Comment on above: Performed By: #### 5 0190-8 #### TRE Nichols ([id number]) [facility] ([facility]) [address] [place] [address] 66303 Lipid 1996 panelon Cholesterol [Mass/Vol] 297 mg/dL High 0-199 Un [facility] Comment on above: Result Comment: Age [...] By: #### 2 4331-1 #### TRE Nichols ([id number]) [facility] ([facility]) [id number] [place] [address] 87045 Cholesterol in HDL [Mass/Vol] 73.2 mg/dL Normal [facility] Comment on above: Result Comment: Age Very Low Low Normal High 0-19 Y < 35 < 40 40-45 ---- 20-24 Y ---- < 40 >45 ---- >24 Y ---- < 40 40-60 >60 Performed By: #### 2 4331-1 #### TRE Nichols ([id number]) [facility] ([facility]) [address] [place] [address] 42330 Cholesterol in LDL [Mass/Vol] 177 mg/dL High <=99 [facility] Comment on above: Result Comment: Near Borderline AGE Desirable Optimal High High Very High 0-19 Y 0 - 109 --- 110-129 >/= 130 ---- 20-24 Y 0 - 119 --- 120-159 >/= 160 ---- >24 Y 0 - 99 100-129 130-159 160-189 >/=190 Performed By: #### 2 4331-1 #### TRE Nichols ([id number]) [facility] ([facility]) [id number] [place] [address] 11888 Cholesterol in VLDL [Mass/Vol] 47 mg/dL High 0-40 [facility] Comment on above: Performed By: #### 2 4331-1 #### TRE Nichols ([id number]) [facility] ([facility]) [id number] [place] [address] 61330 CHOLESTEROL/HDL RATIO 4.1 Normal [facility] Comment on above: Result Comment: Ref Values Desirable < 3.4 High Risk > 5.0 Performed By: #### 2 4331-1 #### TRE Nichols ([id number]) [facility] ([facility]) [id number] [place] [address] 50197 NON HDL CHOLESTEROL 224 mg/dL High 0-149 [facility] Comment on above: Result Comment: Age Desirable Borderline High High Very High 0-19 Y 0 - 119 120 - 144 >/= 145 >/= 160 20-24 Y 0 - 149 150 - 189 >/= 190 ---- >24 Y 30 mg/dL above LDL Cholesterol goal Performed By: #### 2 4331-1 #### TRE Nichols ([id number]) [facility] ([facility]) [address] [place] [address] Triglyceride [Mass/Vol] 236 mg/dL High 0-149 [facility] Comment on above: Result Comment: [...] By: #### 2 4331-1 #### TRE Nichols ([id number]) [facility] ([facility]) [address] [place], [place] [id number] Magnesiumon 06-09-2023 Magnesium [Mass/Vol] 2.19 mg/dL Normal 1.60-2.40 [facility] Comment on above: Performed By: #### 1 9123-9 #### TRE Nichols ([id number]) [facility] ([facility]) [address] [place] [address] 73446 TSH WITH REFLEX TO FREE T4 I F ABNORMALon 06-09-2023 TSH Qn 4.78 m[IU]/L High 0.44-3.98 [facility] Comment on above: Order Comment: TSH t esting is performed using different testing methodology at [facility] than at [facility]. Direct result comparisons should only be made within the same method. Performed By: #### T CHANDRIKA #### TRE Nichols ([id number]) [facility] ([facility]) [address] [place] [address] 05300 Testosterone Free/Testostero ne.total [Mass fraction]on 06-09-2023 Testosterone [Mass/Vol] 638 ng/dL Normal 250-1100 [facility] Comment on above: Result Comment: For additional information, please refer to http://education.[employer]/faq/ [email or web address] (This link is being provided for informational/ educational purposes only.) This test was developed and its analytical performance characteristics have been determined by [employer] [place], [place]. It has not been cleared or approved by the U.S. Food and Drug Administration. This assay has been validated pursuant to the CLIA regulations and is used for clinical purposes. Performed By: #### 5 3315-8 #### TRE Nichols ([id number]) [facility] ([facility]) [address] [place] [address] 25253 Testosterone Free [Mass/Vol] 131.4 pg/mL Normal 35.0-155.0 [facility] Comment on above: Result Comment: This test was developed and its analytical performance characteristics have been determined by [employer] [place], [place]. It has not been cleared or approved by the U.S. Food and Drug Administration. This assay has been validated pursuant to the CLIA regulations and is used for clinical purposes. Performed By: #### 5 3315-8 #### TRE Nichols ([id number]) [facility] ([facility]) [address] [place] [address] 51977 Thyroxine.freeon 06-09-2023 Free T4 [Mass/Vol] 1.10 ng/dL Normal 0.78-1.48 [facility] Comment on above: Order Comment: Thyro xine Free testing is performed using different testing methodology at [facility] than at other system hospitals. Direct result comparisons should only be made within the same method. Performed By: #### 5 3315-8 #### TRE Nichols ([id number]) [facility] ([facility]) [address] [place] [address] 72453 Urateon 06-09-2023 Urate [Mass/Vol] 6.3 mg/dL Normal 4.0-7.5 [facility] Comment on above: Result Comment: Nina puncture immediately after or during the administration of Metamizole may lead to falsely low results. Testing should be performed immediately prior to Metamizole dosing. Performed By: #### 3 084-1 #### TRE Nichols ([id number]) [facility] ([facility]) [address] [place] [address] 79578 Urinalysis microscopic panel Auto Ql (U)on 06-09-2023 RBC Auto (Urine sed) [#/Area] NONE Normal NONE, 1-2, 3-5 [facility] Comment on above: Performed By: #### 5 3315-8 #### TRE Nichols ([id number]) [facility] ([facility]) [address] [place] [address] 55032 WBC Auto (Urine sed) [#/Area] NONE Normal 1-5, NONE [facility] Comment on above: Performed By: #### 5 3315-8 #### TRE Nichols ([id number]) [facility] ([facility]) [address] [place] [address] 93597 Glucose Glucometer (BldC) [M ass/Vol]Ordered By: Colten Crystal on 03-23-2023 Glucose [Mass/Vol] 186 mg/dL 74-106 [facility] Comment on above: MANAGEMENT OF PATIEN T CARE PER NURSING PROTOCOL Basophil percentageOrdered B y: William Bowers on 03-21-2023 Bilirubin [Mass/Vol] 1.30 mg/dL 0.20-1.00 [facility] Comment on above: For patients on eltr ombopag therapy, use of [place] TBIL is not recommended. Chloride [Moles/Vol] 98 mmol/L 98-107 [facility] Glucose [Mass/Vol] 263 mg/dL 74-106 [facility] Comment on above: Glucose result great er than or equal to 200 mg/dLsuggests DIABETES MELLITUS per A.D.A. criteria. Potassium [Moles/Vol] 4.4 mmol/L 3.5-5.1 [facility] Protein [Mass/Vol] 7.4 g/dL 6.4-8.2 [facility] Sodium [Moles/Vol] 133 mmol/L 136-145 [facility] Laboratory - Chemistry and C hemistry - challengeOrdered By: William Bowers on 03-21-2023 ALP [Catalytic activity/Vol] 76 U/L 45-117 [facility] ALT [Catalytic activity/Vol] 59 U/L 16-61 [facility] CO2 [Moles/Vol] 24.0 mmol/L 21.0-32.0 [facility] Globulin (S) [Mass/Vol] 4.0 g/dL 2.2-4.2 [facility] Urea nitrogen/Creatinine [Mass ratio] 16.9 mg/mg 10-20 [facility] No Panel InformationOrdered By: William Bowers on 03-21-2023 Estimated Creatinine Clearance Calc 133.17 ml/min [facility] Estimated GFR (MDRD) Amer 123 mL/min >60 [facility] Comment on above: GFR Calc Estimated GFR (MDRD) Non-Af Amer 102 mL/min >60 [facility] Comment on above: Non- GFR Calc Serum or plasma albumin bucky urement (mass/volume)Ordered By: William Bowers on 03-21-2023 Albumin [Mass/Vol] 3.4 g/dL 3.2-5.0 [facility] Serum or plasma albumin/glob ulin mass ratioOrdered By: William Bowers on 03-21-2023 Albumin/Globulin [Mass ratio] 0.8 {ratio} 0.9-2.4 [facility] Serum or plasma calcium bucky urement (mass/volume)Ordered By: William Bowers on 03-21-2023 Calcium [Mass/Vol] 9.0 mg/dL 8.5-10.1 [facility] Serum or plasma creatinine m easurement (mass/volume)Ordered By: William Bowers on 03-21-2023 Creatinine [Mass/Vol] 0.95 mg/dL 0.70-1.30 [facility] Comment on above: The validity of the calculated GFR & GFRAA in patients over 70 years has not been determined. Clinical correlation is essential. Serum or plasma urea nitroge n measurement (mass/volume)Ordered By: William Bowers on 03-21-2023 Urea nitrogen [Mass/Vol] 16 mg/dL 7-18 [facility] Thin prep Papanicolaou smear with manual screeningOrdered By: William Bowers on 03-21-2023 Thin prep Papanicolaou smear with manual screening 36 U/L 15- [facility] Thin prep Papanicolaou smear with manual screening 11 5-15 [facility] Laboratory - Drug toxicology Ordered By: Dafne Cornell on 03-20-2023 Amphetamines Ql (U) Negative <1000 ng/mL [facility] Benzodiazepines Ql (U) Negative < 200 ng/mL [facility] Cannabinoids Screen Ql (U) Negative < 50 ng/mL [facility] Cocaine Ql (U) Negative < 300 ng/mL [facility] Opiates Ql (U) Negative < 300 ng/mL [facility] No Panel InformationOrdered By: Dafne Cornell on 03-20-2023 MDMA (Ecstasy) Screen Negative < 500 ng/mL [facility] Urine Barbiturates Screen Negative < 200 ng/mL [facility] Urine Drug Screen Comment [facility] Comment on above: CONFIRMATORY TESTING FOR [...] Urine Methadone Screen Negative < 300 ng/mL [facility] Ethyl Alcohol Level 353.0 mg/dL [facility] Comment on above: Critical Result(s) Rj [...] Phencyclidine Ql (U) Negative < 25 ng/mL [facility] Office Visit (Internal Medic ine)on 07-22-2022 [...] Never smoker Tobacco Use Screening; Status:Complete; Done: [id number] Perform:Not Applicable;Ordered; For:SocHx: Never smoker; Ordered By:Dexter [...] reason.; Your symptoms return during treatment Call [phone] if: You are thinking about harming yourself [...] B12 folic acid and thiamine psych and psychotherapist social worker evaluation done to follow Hyperlipidemia Lipitor Anxiety depression lorazepam lipidemia Hypertension Hyperlipidemia diet and exercise Gastritis Pepcid Diabetes continue NovoLog insulin pump 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 Normal [employer] Tobacco Screening.on 023 Fall risk assessment a) No falls within the last year [facility] Work Phone: Tobacco use status [facility] b) No [facility] Work Phone: Assessment of wrist artery p atency prior to arterial punctureOrdered By: Dr. Cedillo on 07-16-2022 Arterial patency Wrist artery --pre arterial puncture Positive [facility] Base excessOrdered By: Dr. Destiny lewis on 07-16-2022 Base excess Calc (BldV) [Moles/Vol] -12 mmol/L -- [facility] Basophil percentageOrdered B y: Dr. Cedillo on 07-16-2022 Bilirubin [Mass/Vol] 0.60 mg/dL 0.20-1.00 [facility] Comment on above: For patients on eltr ombopag therapy, use of [place] TBIL is not recommended. Chloride [Moles/Vol] 102 mmol/L 98-107 [facility] Glucose [Mass/Vol] 462 mg/dL 74-106 [facility] Comment on above: Critical Result(s) C alled at: 05:11:14 07/16/2022 by: SIMONE SALAZAR TO EUNICE GARCIA. Results read back by same.Glucose result greater than or equal to 200 mg/dLsuggests DIABETES MELLITUS per A.D.A. criteria. Potassium [Moles/Vol] 3.1 mmol/L 3.5-5.1 [facility] Protein [Mass/Vol] 5.9 g/dL 6.4-8.2 [facility] Sodium [Moles/Vol] 134 mmol/L 136-145 [facility] Basophil percentage 13.3 mmol/L 22-26 [facility] Basophils/100 WBC (Bld) 98 % 95-99 [facility] CO2 (BldA) [Partial pressure ]Ordered By: Dr. Cedillo on 07-16-2022 CO2 (Bld) [Partial pressure] 23.1 mm[Hg] 35-45 [facility] Glucose Glucometer (BldC) [M ass/Vol]Ordered By: Dr. Murphy on 07-16-2022 Glucose [Mass/Vol] 87 mg/dL 74-106 [facility] Comment on above: MANAGEMENT OF PATIEN T CARE PER NURSING PROTOCOL Laboratory - Chemistry and C hemistry - challengeOrdered By: Dr. Cedillo on 07-16-2022 ALP [Catalytic activity/Vol] 75 U/L 45-117 [facility] ALT [Catalytic activity/Vol] 48 U/L 16-61 [facility] CO2 [Moles/Vol] 19.0 mmol/L 21.0-32.0 [facility] Globulin (S) [Mass/Vol] 2.8 g/dL 2.2-4.2 [facility] Urea nitrogen/Creatinine [Mass ratio] 11.1 mg/mg 10-20 [facility] No Panel InformationOrdered By: Dr. Cedillo on 07-16-2022 Estimated Creatinine Clearance Calc 100.40 ml/min [facility] Estimated GFR (MDRD) Amer 89 mL/min >60 [facility] Comment on above: GFR Calc Estimated GFR (MDRD) Non-Af Amer 73 mL/min >60 [facility] Comment on above: Non- GFR Calc Blood Gas Oxygen Percent 21 [facility] Blood Gas Sample Site R Radial [facility] Blood Gas Specimen Type ART [facility] Blood Gas Total CO2 14 [facility] Air [facility] Ethyl Alcohol Level < 3.0 mg/dL [facility] Comment on above: The serum:whole bloo d ethanol ratio is approximately 1.14and varies slightly with hematocrit. Medical Alcohol reference interval and critical value innon-tolerant individuals; 50 - 100 Impairment 100 Intoxication 100 - 250 Severe Poisoning 250 - 400 Deep/possible fatal coma Oxygen (BldA) [Partial press ure]Ordered By: Dr. Cedillo on 07-16-2022 Oxygen (Bld) [Partial pressure] 104 mmHG 75-100 [facility] Serum or plasma albumin bucky urement (mass/volume)Ordered By: Dr. Cedillo on 07-16-2022 Albumin [Mass/Vol] 3.1 g/dL 3.2-5.0 [facility] Serum or plasma albumin/glob ulin mass ratioOrdered By: Dr. Cedillo on 07-16-2022 Albumin/Globulin [Mass ratio] 1.1 {ratio} 0.9-2.4 [facility] Serum or plasma calcium bucky urement (mass/volume)Ordered By: Dr. Cedillo on 07-16-2022 Calcium [Mass/Vol] 7.7 mg/dL 8.5-10.1 [facility] Serum or plasma creatinine m easurement (mass/volume)Ordered By: Dr. Cedillo on 07-16-2022 Creatinine [Mass/Vol] 1.26 mg/dL 0.70-1.30 [facility] Comment on above: The validity of the calculated GFR & GFRAA in patients over 70 years has not been determined. Clinical correlation is essential. Serum or plasma urea nitroge n measurement (mass/volume)Ordered By: Dr. Cedillo on 07-16-2022 Urea nitrogen [Mass/Vol] 14 mg/dL 7-18 [facility] Thin prep Papanicolaou smear with manual screeningOrdered By: Dr. Cedillo on 07-16-2022 Thin prep Papanicolaou smear with manual screening 27 U/L 15-37 [facility] Thin prep Papanicolaou smear with manual screening 13 5-15 [facility] Whole blood hemoglobin A1c/t otal hemoglobin ratio (mass fraction)Ordered By: Dr. Cedillo on 07-16-2022 HbA1c (Bld) [Mass fraction] 8.5 % 3.8-5.6 [facility] Comment on above: Normal < 5.7 % Predi abetic 5.7 - 6.4 % Diabetic >or= 6.5 % Please note range changes. pH measurementOrdered By: Dr Danay Cedillo on 07-16-2022 pH (Unsp spec) 7.37 [pH] 7.35-7.45 [facility] Absolute lymphocyte countOrd ered By: Dr. Hopper on 07-15-2022 Lymphocytes Auto (Unsp spec) [#/Vol] 0.99 10*3/uL 0.83-4.51 [facility] Basophil percentageOrdered B y: Dr. Hopper on 07-15-2022 Basophils/100 WBC (Bld) 1.1 % 0-1 [facility] Chloride [Moles/Vol] 96 mmol/L 98-107 [facility] Eosinophils/100 WBC (Bld) 0.1 % 0-5 [facility] Glucose [Mass/Vol] 285 mg/dL 74-106 [facility] Comment on above: Glucose result great er than or equal to 200 mg/dLsuggests DIABETES MELLITUS per A.D.A. criteria. Neutrophils (Bld) [#/Vol] 9.2 10*3/uL 2.0-7.7 [facility] Neutrophils/100 WBC (Bld) 77.3 % 47-70 [facility] Potassium [Moles/Vol] 3.8 mmol/L 3.5-5.1 [facility] Sodium [Moles/Vol] 133 mmol/L 136-145 [facility] WBC (Bld) [#/Vol] 11.9 10*3/uL 4.4-11.0 [facility] Blood erythrocytes count (nu mber/volume)Ordered By: Dr. Hopper on 07-15-2022 RBC (Bld) [#/Vol] 5.34 10*6/uL 4.6-6.2 [facility] Blood hemoglobin measurement (mass/volume)Ordered By: Dr. Hopper on 07-15-2022 Hemoglobin (Bld) [Mass/Vol] 16.6 g/dL 13.0-16.5 [facility] Blood lymphocytes/100 leukoc ytesOrdered By: Dr. Hopper on 07-15-2022 Lymphocytes/100 WBC (Bld) 8.3 % 19-41 [facility] Blood manual differential co mment interpretation (narrative result)Ordered By: Dr. Hopper on 07-15-2022 Manual differential comment Gabriel (Bld) [Interp] SCANNED [facility] Comment on above: MONOCYTOSIS NOTED Blood monocytes/100 leukocyt esOrdered By: Dr. Hopper on 07-15-2022 Monocytes/100 WBC (Bld) 12.8 % 0-10 [facility] Blood platelet mean volumeOr dered By: Dr. Hopper on 07-15-2022 Platelet mean volume (Bld) [Entitic vol] 9.8 fL 6.2-12.0 [facility] Determination of erythrocyte mean corpuscular volume (MCV)Ordered By: Dr. Hopper on 07-15-2022 MCV (RBC) [Entitic vol] 90.4 fL 80-94 [facility] Glucose Glucometer (BldC) [M ass/Vol]Ordered By: Dr. Cedillo on 07-15-2022 Glucose [Mass/Vol] 219 mg/dL 74-106 [facility] Comment on above: MANAGEMENT OF PATIEN T CARE PER NURSING PROTOCOL Hematocrit Auto (Bld) [Volum e fraction]Ordered By: Dr. Hopper on 07-15-2022 Hematocrit (Bld) [Volume fraction] 48.3 % 40-54 [facility] Laboratory - Chemistry and C hemistry - challengeOrdered By: Dr. Hopper on 07-15-2022 CO2 [Moles/Vol] 10.0 mmol/L 21.0-32.0 [facility] Urea nitrogen/Creatinine [Mass ratio] 12.6 mg/mg 03-14 [facility] Laboratory - Chemistry and C hemistry - challengeOrdered By: Dr. Cedillo on 07-15-2022 Magnesium [Mass/Vol] 2.2 mg/dL 1.6-2.6 [facility] Laboratory - Hematology and Cell countsOrdered By: Dr. Hopper on 07-15-2022 Erythrocyte distribution width (RBC) [Entitic vol] 42.1 fL 35.1-43.9 [facility] Erythrocyte distribution width (RBC) [Ratio] 12.8 % 11.6-14.6 [facility] Immature granulocytes/100 WBC (Bld) 0.400 % 0.0-0.9 [facility] Comment on above: IG% - Immature Granu locytes (promyelocytes, myelocytes and metamyelocytes) > 1% indicates that a LEFT SHIFT is Present. MCH (RBC) [Entitic mass] 31.1 pg 27.0-32.0 [facility] Nucleated RBC/100 WBC (Bld) [Ratio] 0 % 0-5 [facility] MCHC Auto (RBC) [Mass/Vol]Or dered By: Dr. Hopper on 07-15-2022 MCHC (RBC) [Mass/Vol] 34.4 g/dL 32-36 [facility] No Panel InformationOrdered By: Dr. Hopper on 07-15-2022 Estimated Creatinine Clearance Calc 79.56 ml/min [facility] Estimated GFR (MDRD) Amer 68 mL/min >60 [facility] Comment on above: GFR Calc Estimated GFR (MDRD) Non-Af Amer 56 mL/min >60 [facility] Comment on above: Non- GFR Calc Platelets bldOrdered By: Dr. Hopper on 07-15-2022 Platelets (Bld) [#/Vol] 163 10*3/uL 150-450 [facility] Review by pathologistOrdered By: Dr. Hopper on 07-15-2022 Pathologist review Gabriel (Unsp spec) [Interp] May foll [facility] Serum or plasma acetone bucky urement (mass/volume)Ordered By: Dr. Hopper on 07-15-2022 Acetone [Mass/Vol] MODERATE NEG [facility] Serum or plasma calcium bucky urement (mass/volume)Ordered By: Dr. Hopper on 07-15-2022 Calcium [Mass/Vol] 9.8 mg/dL 8.5-10.1 [facility] Serum or plasma creatinine m easurement (mass/volume)Ordered By: Dr. Hopper on 07-15-2022 Creatinine [Mass/Vol] 1.59 mg/dL 0.70-1.30 [facility] Comment on above: The validity of the calculated GFR & GFRAA in patients over 70 years has not been determined. Clinical correlation is essential. Serum or plasma urea nitroge n measurement (mass/volume)Ordered By: Dr. Hopper on 07-15-2022 Urea nitrogen [Mass/Vol] 20 mg/dL 7-18 [facility] Thin prep Papanicolaou smear with manual screeningOrdered By: Dr. Hopper on 07-15-2022 Thin prep Papanicolaou smear with manual screening 27 5-15 [facility] Thin prep Papanicolaou smear with manual screeningOrdered By: Dr. Cedillo on 07-15-2022 Thin prep Papanicolaou smear with manual screening 310 mOsm/KG 275-295 [facility] Basophil percentageOrdered B y: Dr. Murphy on 06-20-2022 Chloride [Moles/Vol] 101 mmol/L 98-107 [facility] Glucose [Mass/Vol] 94 mg/dL 74-106 [facility] Potassium [Moles/Vol] 4.2 mmol/L 3.5-5.1 [facility] Sodium [Moles/Vol] 137 mmol/L 136-145 [facility] Laboratory - Chemistry and C hemistry - challengeOrdered By: Dr. Murphy on 06-20-2022 CO2 [Moles/Vol] 29.0 mmol/L 21.0-32.0 [facility] [facility] Urea nitrogen/Creatinine [Mass ratio] 9.3 mg/mg 10-20 [facility] No Panel InformationOrdered By: Dr. Murphy on 06-20-2022 Estimated Creatinine Clearance Calc 147.10 ml/min [facility] Estimated GFR (MDRD) Amer 138 mL/min >60 [facility] Comment on above: GFR Calc Estimated GFR (MDRD) Non-Af Amer 114 mL/min >60 [facility] Comment on above: Non- GFR Calc Serum or plasma calcium bucky urement (mass/volume)Ordered By: Dr. Murphy on 06-20-2022 Calcium [Mass/Vol] 9.1 mg/dL 8.5-10.1 [facility] Serum or plasma creatinine m easurement (mass/volume)Ordered By: Dr. Murphy on 06-20-2022 Creatinine [Mass/Vol] 0.86 mg/dL 0.70-1.30 [facility] Comment on above: The validity of the calculated GFR & GFRAA in patients over 70 years has not been determined. Clinical correlation is essential. Serum or plasma urea nitroge n measurement (mass/volume)Ordered By: Dr. Murphy on 06-20-2022 Urea nitrogen [Mass/Vol] 8 mg/dL 7-18 [facility] Thin prep Papanicolaou smear with manual screeningOrdered By: Dr. Murphy on 06-20-2022 Thin prep Papanicolaou smear with manual screening 7 5-15 [facility] Basophil percentageOrdered B y: Dr. Murphy on 06-19-2022 Basophil percentage 3.8 mg/dL 2.5-4.9 [facility] Bilirubin [Mass/Vol] 0.50 mg/dL 0.20-1.00 [facility] Comment on above: For patients on eltr ombopag therapy, use of [employer] TBIL is not recommended. Protein [Mass/Vol] 6.2 g/dL 6.4-8.2 [facility] Laboratory - Chemistry and C hemistry - challengeOrdered By: Dr. Murphy on 06-19-2022 ALP [Catalytic activity/Vol] 73 U/L 45-117 [facility] ALT [Catalytic activity/Vol] 42 U/L 16-61 [facility] Globulin (S) [Mass/Vol] 3.1 g/dL 2.2-4.2 [facility] Magnesium [Mass/Vol] 2.0 mg/dL 1.6-2.6 [facility] Serum or plasma albumin bucyk urement (mass/volume)Ordered By: Dr. Murphy on 06-19-2022 Albumin [Mass/Vol] 3.1 g/dL 3.2-5.0 [facility] Serum or plasma albumin/glob ulin mass ratioOrdered By: Dr. Murphy on 06-19-2022 Albumin/Globulin [Mass ratio] 1.0 {ratio} 0.9-2.4 [facility] Thin prep Papanicolaou smear with manual screeningOrdered By: Dr. Murphy on 06-19-2022 Thin prep Papanicolaou smear with manual screening 27 U/L 15-37 [facility] Absolute lymphocyte countOrd ered By: Dr. Patel on 06-17-2022 Lymphocytes Auto (Unsp spec) [#/Vol] 2.22 10*3/uL 0.83-4.51 [facility] Basophil percentageOrdered B y: Dr. Patel on 06-17-2022 Basophils/100 WBC (Bld) 0.5 % 0-1 [facility] Bilirubin [Mass/Vol] 0.30 mg/dL 0.20-1.00 [facility] Comment on above: For patients on eltr ombopag therapy, use of [employer] TBIL is not recommended. Chloride [Moles/Vol] 111 mmol/L 98-107 [facility] Eosinophils/100 WBC (Bld) 1.5 % 0-5 [facility] Glucose [Mass/Vol] 203 mg/dL 74-106 [facility] Comment on above: Glucose result great er than or equal to 200 mg/dLsuggests DIABETES MELLITUS per A.D.A. criteria. Neutrophils (Bld) [#/Vol] 3.2 10*3/uL 2.0-7.7 [facility] Neutrophils/100 WBC (Bld) 52.8 % 47-70 [facility] Potassium [Moles/Vol] 3.9 mmol/L 3.5-5.1 [facility] Protein [Mass/Vol] 7.7 g/dL 6.4-8.2 [facility] Sodium [Moles/Vol] 145 mmol/L 136-145 [facility] WBC (Bld) [#/Vol] 6.1 10*3/uL 4.4-11.0 [facility] Blood erythrocytes count (nu mber/volume)Ordered By: Dr. Patel on 06-17-2022 RBC (Bld) [#/Vol] 4.84 10*6/uL 4.6-6.2 [facility] Blood hemoglobin measurement (mass/volume)Ordered By: Dr. Patel on 06-17-2022 Hemoglobin (Bld) [Mass/Vol] 15.3 g/dL 13.0-16.5 [facility] Blood lymphocytes/100 leukoc ytesOrdered By: Dr. Patel on 06-17-2022 Lymphocytes/100 WBC (Bld) 36.5 % 19-41 [facility] Blood monocytes/100 leukocyt esOrdered By: Dr. Patel on 06-17-2022 Monocytes/100 WBC (Bld) 8.2 % 0-10 [facility] Blood platelet mean volumeOr dered By: Dr. Patel on 06-17-2022 Platelet mean volume (Bld) [Entitic vol] 9.4 fL 6.2-12.0 [facility] Determination of erythrocyte mean corpuscular volume (MCV)Ordered By: Dr. Patel on 06-17-2022 MCV (RBC) [Entitic vol] 90.5 fL 80-94 [facility] Hematocrit Auto (Bld) [Volum e fraction]Ordered By: Dr. Patel on 06-17-2022 Hematocrit (Bld) [Volume fraction] 43.8 % 40-54 [facility] INR in Blood by Coagulation assayOrdered By: Dr. Patel on 06-17-2022 INR Coag (Bld) [Relative time] 1.0 {INR} [facility] Laboratory - Chemistry and C hemistry - challengeOrdered By: Dr. Patel on 06-17-2022 ALP [Catalytic activity/Vol] 93 U/L 45-117 [facility] ALT [Catalytic activity/Vol] 74 U/L 16-61 [facility] CO2 [Moles/Vol] 26.0 mmol/L 21.0-32.0 [facility] Globulin (S) [Mass/Vol] 3.8 g/dL 2.2-4.2 [facility] Urea nitrogen/Creatinine [Mass ratio] 7.2 mg/mg 10-20 [facility] Laboratory - CoagulationOrde red By: Dr. Patel on 06-17-2022 PT Coag (PPP) [Time] 13.1 s 11.7-14.9 [facility] Laboratory - Drug toxicology Ordered By: Dr. Patel on 06-17-2022 Amphetamines Ql (U) Negative <1000 ng/mL [facility] Benzodiazepines Ql (U) Negative < 200 ng/mL [facility] Cannabinoids Screen Ql (U) Negative < 50 ng/mL [facility] Cocaine Ql (U) Negative < 300 ng/mL [facility] Opiates Ql (U) Negative < 300 ng/mL [facility] Laboratory - Hematology and Cell countsOrdered By: Dr. Patel on 06-17-2022 Erythrocyte distribution width (RBC) [Entitic vol] 45.5 fL 35.1-43.9 [facility] Erythrocyte distribution width (RBC) [Ratio] 13.7 % 11.6-14.6 [facility] Immature granulocytes/100 WBC (Bld) 0.500 % 0.0-0.9 [facility] Comment on above: IG% - Immature Granu locytes (promyelocytes, myelocytes and metamyelocytes) > 1% indicates that a LEFT SHIFT is Present. MCH (RBC) [Entitic mass] 31.6 pg 27.0-32.0 [facility] Nucleated RBC/100 WBC (Bld) [Ratio] 0 % 0-5 [facility] MCHC Auto (RBC) [Mass/Vol]Or dered By: Dr. Patel on 06-17-2022 MCHC (RBC) [Mass/Vol] 34.9 g/dL 32-36 [facility] No Panel InformationOrdered By: Dr. Patel on 06-17-2022 Estimated Creatinine Clearance Calc 152.42 ml/min [facility] Estimated GFR (MDRD) Amer 144 mL/min >60 [facility] Comment on above: GFR Calc Estimated GFR (MDRD) Non-Af Amer 119 mL/min >60 [facility] Comment on above: Non- GFR Calc Ethyl Alcohol Level 334.0 mg/dL [facility] Comment on above: Critical Result(s) C alled at: 09:34:32 06/17/2022 by: Tonya Marrero. Results read back by same.The serum:whole blood ethanol ratio is approximately 1.14and varies slightly with hematocrit. Medical Alcohol reference interval and critical value innon-tolerant individuals; 50 - 100 Impairment 100 Intoxication 100 - 250 Severe Poisoning 250 - 400 Deep/possible fatal coma MDMA (Ecstasy) Screen Negative < 500 ng/mL [facility] Urine Barbiturates Screen Negative < 200 ng/mL [facility] Urine Drug Screen Comment [facility] Comment on above: CONFIRMATORY TESTING FOR [...] Methadone Screen Negative < 300 ng/mL [facility] Platelets bldOrdered By: Dr. Patel on 06-17-2022 Platelets (Bld) [#/Vol] 192 10*3/uL 150-450 [facility] Serum or plasma acetone bucky urement (mass/volume)Ordered By: Dr. Patel on 06-17-2022 Acetone [Mass/Vol] Negative NEG [facility] Serum or plasma albumin bucky urement (mass/volume)Ordered By: Dr. Patel on 06-17-2022 Albumin [Mass/Vol] 3.9 g/dL 3.2-5.0 [facility] Serum or plasma albumin/glob ulin mass ratioOrdered By: Dr. Patel on 06-17-2022 Albumin/Globulin [Mass ratio] 1.0 {ratio} 0.9-2.4 [facility] Serum or plasma calcium bucky urement (mass/volume)Ordered By: Dr. Patel on 06-17-2022 Calcium [Mass/Vol] 8.7 mg/dL 8.5-10.1 [facility] Serum or plasma creatinine m easurement (mass/volume)Ordered By: Dr. Patel on 06-17-2022 Creatinine [Mass/Vol] 0.83 mg/dL 0.70-1.30 [facility] Comment on above: The validity of the calculated GFR & GFRAA in patients over 70 years has not been determined. Clinical correlation is essential. Serum or plasma urea nitroge n measurement (mass/volume)Ordered By: Dr. Patel on 06-17-2022 Urea nitrogen [Mass/Vol] 6 mg/dL 7-18 [facility] Thin prep Papanicolaou smear with manual screeningOrdered By: Dr. Patel on 06-17-2022 Thin prep Papanicolaou smear with manual screening 81 U/L 15-37 [facility] Thin prep Papanicolaou smear with manual screening 8 5-15 [facility] Urine phencyclidine (PCP) de tectionOrdered By: Dr. Patel on 06-17-2022 Phencyclidine Ql (U) Negative < 25 ng/mL [facility] Whole blood hemoglobin A1c/t otal hemoglobin ratio (mass fraction)Ordered By: Dr. 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 Normal [employer] Tobacco Screening.on 023 Adult depression screening assessment Yes [facility] Work Phone: Fall risk assessment a) No falls within the last year [facility] Work Phone: Tobacco use status CP b) No [facility] Work Phone: Absolute lymphocyte countOrd ered By: Dr. Nice on 06-01-2022 Lymphocytes Auto (Unsp spec) [#/Vol] 1.13 10*3/uL 0.83-4.51 [facility] Basophil percentageOrdered B y: Dr. Nice on 06-01-2022 Basophils/100 WBC (Bld) 0.3 % 0-1 [facility] Bilirubin [Mass/Vol] 1.00 mg/dL 0.20-1.00 [facility] Comment on above: For patients on eltr ombopag therapy, use of [employer] TBIL is not recommended. Chloride [Moles/Vol] 100 mmol/L 98-107 [facility] Eosinophils/100 WBC (Bld) 1.4 % 0-5 [facility] Glucose [Mass/Vol] 104 mg/dL 74-106 [facility] Comment on above: Fasting Glucose resu lt from 100 to 125 mg/dL suggests IMPAIRED HOMEOSTASIS per A.D.A. criteria. Neutrophils (Bld) [#/Vol] 7.4 10*3/uL 2.0-7.7 [facility] Neutrophils/100 WBC (Bld) 75.6 % 47-70 [facility] Potassium [Moles/Vol] 3.4 mmol/L 3.5-5.1 [facility] Protein [Mass/Vol] 7.1 g/dL 6.4-8.2 [facility] Sodium [Moles/Vol] 139 mmol/L 136-145 [facility] WBC (Bld) [#/Vol] 9.8 10*3/uL 4.4-11.0 [facility] Blood erythrocytes count (nu mber/volume)Ordered By: Dr. Nice on 06-01-2022 RBC (Bld) [#/Vol] 4.84 10*6/uL 4.6-6.2 [facility] Blood hemoglobin measurement (mass/volume)Ordered By: Dr. Nice on 06-01-2022 Hemoglobin (Bld) [Mass/Vol] 15.5 g/dL 13.0-16.5 [facility] Blood lymphocytes/100 leukoc ytesOrdered By: Dr. Nice on 06-01-2022 Lymphocytes/100 WBC (Bld) 11.5 % 19-41 [facility] Blood monocytes/100 leukocyt esOrdered By: Dr. Nice on 06-01-2022 Monocytes/100 WBC (Bld) 10.9 % 0-10 [facility] Blood platelet mean volumeOr dered By: Dr. Nice on 06-01-2022 Platelet mean volume (Bld) [Entitic vol] 9.3 fL 6.2-12.0 [facility] Determination of erythrocyte mean corpuscular volume (MCV)Ordered By: Dr. Nice on 06-01-2022 MCV (RBC) [Entitic vol] 89.5 fL 80-94 [facility] Glucose Glucometer (BldC) [M ass/Vol]Ordered By: Dr. Nice on 06-01-2022 Glucose [Mass/Vol] 74 mg/dL 74-106 [facility] Comment on above: MANAGEMENT OF PATIEN T CARE PER NURSING PROTOCOL Hematocrit Auto (Bld) [Volum e fraction]Ordered By: Dr. Nice on 06-01-2022 Hematocrit (Bld) [Volume fraction] 43.3 % 40-54 [facility] Laboratory - Chemistry and C hemistry - challengeOrdered By: Dr. Nice on 06-01-2022 ALP [Catalytic activity/Vol] 93 U/L 45-117 [facility] ALT [Catalytic activity/Vol] 74 U/L 16-61 [facility] CO2 [Moles/Vol] 28.0 mmol/L 21.0-32.0 [facility] Globulin (S) [Mass/Vol] 3.6 g/dL 2.2-4.2 [facility] Urea nitrogen/Creatinine [Mass ratio] 9.4 mg/mg 10-20 [facility] Laboratory - Hematology and Cell countsOrdered By: Dr. Nice on 06-01-2022 Erythrocyte distribution width (RBC) [Entitic vol] 42.3 fL 35.1-43.9 [facility] Erythrocyte distribution width (RBC) [Ratio] 12.9 % 11.6-14.6 [facility] Immature granulocytes/100 WBC (Bld) 0.300 % 0.0-0.9 [facility] Comment on above: IG% - Immature Granu locytes (promyelocytes, myelocytes and metamyelocytes) > 1% indicates that a LEFT SHIFT is Present. MCH (RBC) [Entitic mass] 32.0 pg 27.0-32.0 [facility] Nucleated RBC/100 WBC (Bld) [Ratio] 0 % 0-5 [facility] MCHC Auto (RBC) [Mass/Vol]Or dered By: Dr. Nice on 06-01-2022 MCHC (RBC) [Mass/Vol] 35.8 g/dL 32-36 [facility] No Panel InformationOrdered By: Dr. Nice on 06-01-2022 Estimated Creatinine Clearance Calc 148.83 ml/min [facility] Estimated GFR (MDRD) Amer 141 mL/min >60 [facility] Comment on above: GFR Calc Estimated GFR (MDRD) Non-Af Amer 116 mL/min >60 [facility] Comment on above: Non- GFR Calc Platelets bldOrdered By: Dr. Nice on 06-01-2022 Platelets (Bld) [#/Vol] 169 10*3/uL 150-450 [facility] Serum or plasma albumin bucky urement (mass/volume)Ordered By: Dr. Nice on 06-01-2022 Albumin [Mass/Vol] 3.5 g/dL 3.2-5.0 [facility] Serum or plasma albumin/glob ulin mass ratioOrdered By: Dr. Nice on 06-01-2022 Albumin/Globulin [Mass ratio] 1.0 {ratio} 0.9-2.4 [facility] Serum or plasma calcium bucky urement (mass/volume)Ordered By: Dr. Nice on 06-01-2022 Calcium [Mass/Vol] 9.2 mg/dL 8.5-10.1 [facility] Serum or plasma creatinine m easurement (mass/volume)Ordered By: Dr. Nice on 06-01-2022 Creatinine [Mass/Vol] 0.85 mg/dL 0.70-1.30 [facility] Comment on above: The validity of the calculated GFR & GFRAA in patients over 70 years has not been determined. Clinical correlation is essential. Serum or plasma urea nitroge n measurement (mass/volume)Ordered By: Dr. Nice on 06-01-2022 Urea nitrogen [Mass/Vol] 8 mg/dL 7-18 [facility] Thin prep Papanicolaou smear with manual screeningOrdered By: Dr. Nice on 06-01-2022 Thin prep Papanicolaou smear with manual screening 103 U/L 15-37 [facility] Thin prep Papanicolaou smear with manual screening 11 5-15 [facility] Laboratory - Hematology and Cell countson 05-29-2022 HbA1c (Bld) [Mass fraction] 8.0 % [facility] Absolute lymphocyte countOrd ered By: ED PROVIDER on 05-03-2022 Lymphocytes Auto (Unsp spec) [#/Vol] 1.64 10*3/uL 0.83-4.51 [facility] Basophil percentageOrdered B y: Dr. Corrales on 05-03-2022 Basophil percentage 0-5 SEEN /hpf 0-5 [facility] Basophil percentageOrdered B y: ED PROVIDER on 05-03-2022 Basophils/100 WBC (Bld) 1.0 % 0-1 [facility] Bilirubin [Mass/Vol] 0.60 mg/dL 0.20-1.00 [facility] Comment on above: For patients on eltr ombopag therapy, use of [place] TBIL is not recommended. Chloride [Moles/Vol] 105 mmol/L 98-107 [facility] Eosinophils/100 WBC (Bld) 1.3 % 0-5 [facility] Glucose [Mass/Vol] 103 mg/dL 74-106 [facility] Comment on above: Fasting Glucose resu lt from 100 to 125 mg/dL suggests IMPAIRED HOMEOSTASIS per A.D.A. criteria. Neutrophils (Bld) [#/Vol] 3.4 10*3/uL 2.0-7.7 [facility] Neutrophils/100 WBC (Bld) 55.9 % 47-70 [facility] Potassium [Moles/Vol] 3.9 mmol/L 3.5-5.1 [facility] Comment on above: Slight Hemolysis, Re sult may be falsely increased. Protein [Mass/Vol] 8.0 g/dL 6.4-8.2 [facility] Sodium [Moles/Vol] 141 mmol/L 136-145 [facility] WBC (Bld) [#/Vol] 6.1 10*3/uL 4.4-11.0 [facility] Bilirubin Test strip Ql (U)O rdered By: Dr. Corrales on 05-03-2022 Bilirubin Ql (U) Negative Negative [facility] Blood erythrocytes count (nu mber/volume)Ordered By: ED PROVIDER on 05-03-2022 RBC (Bld) [#/Vol] 5.18 10*6/uL 4.6-6.2 [facility] Blood hemoglobin measurement (mass/volume)Ordered By: ED PROVIDER on 05-03-2022 Hemoglobin (Bld) [Mass/Vol] 15.7 g/dL 13.0-16.5 [facility] Blood lymphocytes/100 leukoc ytesOrdered By: ED PROVIDER on 05-03-2022 Lymphocytes/100 WBC (Bld) 27.1 % 19-41 [facility] Blood monocytes/100 leukocyt esOrdered By: ED PROVIDER on 05-03-2022 Monocytes/100 WBC (Bld) 14.2 % 0-10 [facility] Blood platelet adequacy dete ction by light microscopyOrdered By: ED PROVIDER on 05-03-2022 Platelets LM Ql (Bld) ADEQUATE ADEQ [facility] Blood platelet mean volumeOr dered By: ED PROVIDER on 05-03-2022 Platelet mean volume (Bld) [Entitic vol] 10.7 fL 6.2-12.0 [facility] Determination of erythrocyte mean corpuscular volume (MCV)Ordered By: ED PROVIDER on 05-03-2022 MCV (RBC) [Entitic vol] 90.5 fL 80-94 [facility] Glucose Glucometer (BldC) [M ass/Vol]Ordered By: Dr. Corrales on 05-03-2022 Glucose [Mass/Vol] 114 mg/dL 74-106 [facility] Comment on above: MANAGEMENT OF PATIEN T CARE PER NURSING PROTOCOL Hematocrit Auto (Bld) [Volum e fraction]Ordered By: ED PROVIDER on 05-03-2022 Hematocrit (Bld) [Volume fraction] 46.9 % 40-54 [facility] Ketones Test strip Ql (U)Ord ered By: Dr. Corrales on 05-03-2022 Ketones Ql (U) 15 mg/dl Negative [facility] Laboratory - Chemistry and C hemistry - challengeOrdered By: ED PROVIDER on 05-03-2022 ALP [Catalytic activity/Vol] 97 U/L 45-117 [facility] ALT [Catalytic activity/Vol] 108 U/L 16-61 [facility] CO2 [Moles/Vol] 16.0 mmol/L 21.0-32.0 [facility] Globulin (S) [Mass/Vol] 3.7 g/dL 2.2-4.2 [facility] Urea nitrogen/Creatinine [Mass ratio] 8.5 mg/mg 10-20 [facility] Laboratory - Chemistry and C hemistry - challengeOrdered By: Dr. Corrales on 05-03-2022 CK [Catalytic activity/Vol] 325 U/L 39-308 [facility] Comment on above: Moderate Hemolysis, Result may be falsely increased. Laboratory - Hematology and Cell countsOrdered By: ED PROVIDER on 05-03-2022 Erythrocyte distribution width (RBC) [Entitic vol] 42.0 fL 35.1-43.9 [facility] Erythrocyte distribution width (RBC) [Ratio] 12.7 % 11.6-14.6 [facility] Immature granulocytes/100 WBC (Bld) 0.500 % 0.0-0.9 [facility] Comment on above: IG% - Immature Granu locytes (promyelocytes, myelocytes and metamyelocytes) > 1% indicates that a LEFT SHIFT is Present. MCH (RBC) [Entitic mass] 30.3 pg 27.0-32.0 [facility] Nucleated RBC/100 WBC (Bld) [Ratio] 0 % 0-5 [facility] MCHC Auto (RBC) [Mass/Vol]Or dered By: ED PROVIDER on 05-03-2022 MCHC (RBC) [Mass/Vol] 33.5 g/dL 32-36 [facility] Mucus LM Ql (Urine sed)Order ed By: Dr. Corrales on 05-03-2022 Mucus Ql (Urine sed) 0 SEEN /hpf [facility] Nitrite Test strip Ql (U)Ord ered By: Dr. Corrales on 05-03-2022 Nitrite Ql (U) Negative Negative [facility] No Panel InformationOrdered By: ED PROVIDER on 05-03-2022 Estimated Creatinine Clearance Calc 109.08 ml/min [facility] Estimated GFR (MDRD) Amer 97 mL/min >60 [facility] Comment on above: GFR Calc Estimated GFR (MDRD) Non-Af Amer 80 mL/min >60 [facility] Comment on above: Non- GFR Calc No Panel InformationOrdered By: Dr. Corrales on 05-03-2022 Troponin I High Sensitivity 6 pg/mL 3.0-78.0 [facility] Comment on above: Please Note: New Sendy t Units and Gender Specific Reference Ranges. For more information see Policy Stat Procedure [place] High Sensitivity Troponin (TNIH) and attachments. Platelets bldOrdered By: ED PROVIDER on 05-03-2022 Platelets (Bld) [#/Vol] See comment 150-450 [facility] Comment on above: Please note: For [...] 05-03-2022 Protein Ql (U) 100 mg/dl Negative [facility] Serum or plasma albumin bucky urement (mass/volume)Ordered By: ED PROVIDER on 05-03-2022 Albumin [Mass/Vol] 4.3 g/dL 3.2-5.0 [facility] Serum or plasma albumin/glob ulin mass ratioOrdered By: ED PROVIDER on 05-03-2022 Albumin/Globulin [Mass ratio] 1.2 {ratio} 0.9-2.4 [facility] Serum or plasma calcium bucky urement (mass/volume)Ordered By: ED PROVIDER on 05-03-2022 Calcium [Mass/Vol] 9.4 mg/dL 8.5-10.1 [facility] Serum or plasma creatinine m easurement (mass/volume)Ordered By: ED PROVIDER on 05-03-2022 Creatinine [Mass/Vol] 1.17 mg/dL 0.70-1.30 [facility] Comment on above: The validity of the calculated GFR & GFRAA in patients over 70 years has not been determined. Clinical correlation is essential. Serum or plasma urea nitroge n measurement (mass/volume)Ordered By: ED PROVIDER on 05-03-2022 Urea nitrogen [Mass/Vol] 10 mg/dL 7-18 [facility] Squamous epithelial cells de tection in urine sediment by light microscopyOrdered By: Dr. Corrales on 05-03-2022 Epithelial cells.squamous LM Ql (Urine sed) 0 SEEN /hpf 0-5 [facility] Thin prep Papanicolaou smear with manual screeningOrdered By: ED PROVIDER on 05-03-2022 Thin prep Papanicolaou smear with manual screening 103 U/L 15-37 [facility] Comment on above: Slight Hemolysis, Re sult may be falsely increased. Thin prep Papanicolaou smear with manual screening 20 5-15 [facility] Urine blood detectionOrdered By: Dr. Corrales on 05-03-2022 RBC Ql (U) 50 /ul Negative [facility] RBC Ql (U) 0-5 SEEN /hpf 0-5 [facility] Urine clarityOrdered By: Dr. Corrales on 05-03-2022 Clarity (U) Clear Clear [facility] Urine color determinationOrd ered By: Dr. Corrales on 05-03-2022 Color (U) Yellow Yellow [facility] Urine glucose detectionOrder ed By: Dr. Corrales on 05-03-2022 Glucose Ql (U) 250 mg/dl Normal [facility] Urine leukocyte esterase det ection by dipstickOrdered By: Dr. Corrales on 05-03-2022 Leukocyte esterase Test strip Ql (U) Negative Negative [facility] Urine pHOrdered By: Dr. Giovany castañeda on 05-03-2022 pH (U) 7.0 [pH] 5.0 - 8.0 [facility] Urine sediment bacteria coun t by microscopy (number/high power field)Ordered By: Dr. Corrales on 05-03-2022 Bacteria LM.HPF (Urine sed) [#/Area] 0 /[HPF] None Seen [facility] Urine specific gravity measu rementOrdered By: Dr. Corrales on 05-03-2022 Specific gravity (U) [Rel density] 1.015 1.002-1.030 [facility] Urobilinogen Auto test strip Ql (U)Ordered By: Dr. Corrales on 05-03-2022 Urobilinogen Ql (U) Normal mg/dl Normal [facility] Absolute lymphocyte counton 01-29-2022 Lymphocytes Auto (Unsp spec) [#/Vol] 1.25 10*3/uL 0.83-4.51 [facility] Work Phone: Basophil percentageon 2021 Chloride [Moles/Vol] 109 mmol/L 98-107 [facility] Work Phone: Glucose [Mass/Vol] 145 mg/dL 74-106 [facility] Work Phone: Comment on above: Fasting Glucose resu lt greater than or equal to 126 mg/dL suggests DIABETES MELLITUS per A.D.A. criteria. Potassium [Moles/Vol] 3.6 mmol/L 3.5-5.1 [facility] Work Phone: Sodium [Moles/Vol] 141 mmol/L 136-145 [facility] Work Phone: Basophils/100 WBC (Bld) 0.3 % 0-1 [facility] Work Phone: Eosinophils/100 WBC (Bld) 0.0 % 0-5 [facility] Work Phone: Neutrophils (Bld) [#/Vol] 9.1 10*3/uL 2.0-7.7 [facility] Work Phone: Neutrophils/100 WBC (Bld) 76.1 % 47-70 [facility] Work Phone: WBC (Bld) [#/Vol] 11.9 10*3/uL 4.4-11.0 [facility] Work Phone: Blood erythrocytes count (nu mber/volume)on 01-29-2022 RBC (Bld) [#/Vol] 5.10 10*6/uL 4.6-6.2 [facility] Work Phone: Blood hemoglobin measurement (mass/volume)on 01-29-2022 Hemoglobin (Bld) [Mass/Vol] 15.5 g/dL 13.0-16.5 [facility] Work Phone: Blood lymphocytes/100 leukoc yteson 01-29-2022 Lymphocytes/100 WBC (Bld) 10.5 % 19-41 [facility] Work Phone: Blood manual differential co mment interpretation (narrative result)on 01-29-2022 Manual differential comment Gabriel (Bld) [Interp] COMMENT [facility] Work Phone: Comment on above: MONOCYTOSIS. Blood monocytes/100 leukocyt eson 01-29-2022 Monocytes/100 WBC (Bld) 12.6 % 0-10 [facility] Work Phone: Blood platelet mean volumeon 01-29-2022 Platelet mean volume (Bld) [Entitic vol] 9.6 fL 6.2-12.0 [facility] Work Phone: Determination of erythrocyte mean corpuscular volume (MCV)on 01-29-2022 MCV (RBC) [Entitic vol] 89.6 fL 80-94 [facility] Work Phone: Glucose Glucometer (BldC) [M ass/Vol]on 01-29-2022 Glucose [Mass/Vol] 160 mg/dL 74-106 [facility] Work Phone: Comment on above: MANAGEMENT OF PATIEN T CARE PER NURSING PROTOCOL HCO3 (BldA) [Moles/Vol]on HCO3 (Bld) [Moles/Vol] 17 mmol/L 22-26 [facility] Work Phone: Hematocrit Auto (Bld) [Volum e fraction]on 01-29-2022 Hematocrit (Bld) [Volume fraction] 45.7 % 40-54 [facility] Work Phone: Laboratory - Chemistry and C hemistry - challengeon 01-29-2022 CO2 [Moles/Vol] 24.0 mmol/L 21.0-32.0 [facility] Work Phone: Urea nitrogen/Creatinine [Mass ratio] 17.5 mg/mg 10-20 [facility] Work Phone: CO2 [Moles/Vol] 18 mmol/L 23-33 [facility] Work Phone: Laboratory - Hematology and Cell countson 01-29-2022 Erythrocyte distribution width (RBC) [Entitic vol] 40.8 fL 35.1-43.9 [facility] Work Phone: Erythrocyte distribution width (RBC) [Ratio] 12.3 % 11.6-14.6 [facility] Work Phone: Immature granulocytes/100 WBC (Bld) 0.500 % 0.0-0.9 [facility] Work Phone: Comment on above: IG% - Immature Granu locytes (promyelocytes, myelocytes and metamyelocytes) > 1% indicates that a LEFT SHIFT is Present. MCH (RBC) [Entitic mass] 30.4 pg 27.0-32.0 [facility] Work Phone: Nucleated RBC/100 WBC (Bld) [Ratio] 0 % 0-5 [facility] Work Phone: MCHC Auto (RBC) [Mass/Vol]on 01-29-2022 MCHC (RBC) [Mass/Vol] 33.9 g/dL 32-36 [facility] Work Phone: No Panel Informationon 01-29 Estimated Creatinine Clearance Calc 144.28 ml/min [facility] Work Phone: Estimated GFR (MDRD) Amer 130 mL/min >60 [facility] Work Phone: Comment on above: GFR Calc Estimated GFR (MDRD) Non-Af Amer 107 mL/min >60 [facility] Work Phone: Comment on above: Non- GFR Calc Bed Mix Venous Bld PCO2 at Pat Temp 31.0 mmHg 41-51 [facility] Work Phone: Blood Gas Specimen Type BRITTNY [facility] Work Phone: Venous Blood Base Excess -9 mmol/L -1.0-3.5 [facility] Work Phone: PO2 venouson 01-29-2022 Oxygen (BldV) [Partial pressure] 54 mm[Hg] 25-40 [facility] Work Phone: Platelets bldon 01-29-2022 Platelets (Bld) [#/Vol] 256 10*3/uL 150-450 [facility] Work Phone: Review by pathologiston Pathologist review Gabriel (Unsp spec) [Interp] September [facility] Work Phone: Pathologist review Gabriel (Unsp spec) [Interp] Reviewed [facility] Work Phone: Comment on above: Previous reported re sult: Jennifer gray Edited by: FAITH on 01/30/22:1545Neutrophilic leukocytosis.Clinical correlation necessary.Sim Hassan M.D. 01/30/22 AMENDED REPORT 01/30/22 1543 PATH REV previously reported as: September isaac Serum or plasma acetone bucky urement (mass/volume)on 01-29-2022 Acetone [Mass/Vol] MODERATE NEG [facility] Work Phone: Serum or plasma calcium bucky urement (mass/volume)on 01-29-2022 Calcium [Mass/Vol] 8.7 mg/dL 8.5-10.1 [facility] Work Phone: Serum or plasma creatinine m easurement (mass/volume)on 01-29-2022 Creatinine [Mass/Vol] 0.91 mg/dL 0.70-1.30 [facility] Work Phone: Comment on above: The validity of the calculated GFR & GFRAA in patients over 70 years has not been determined. Clinical correlation is essential. Serum or plasma urea nitroge n measurement (mass/volume)on 01-29-2022 Urea nitrogen [Mass/Vol] 16 mg/dL 7-18 [facility] Work Phone: Thin prep Papanicolaou smear with manual screeningon 01-29-2022 Thin prep Papanicolaou smear with manual screening 8 5-15 [facility] Work Phone: Vital signson 01-29-2022 Oxygen saturation in Blood 86 % 50-70 [facility] Work Phone: pH measurementon 01-29-2022 pH (Unsp spec) 7.34 [pH] 7.32-7.42 [facility] Work Phone: Laboratory - Hematology and Cell countson 11-14-2021 HbA1c (Bld) [Mass fraction] 9.3 % [facility] Work Phone: Absolute lymphocyte counton 09-27-2021 Lymphocytes Auto (Unsp spec) [#/Vol] 1.25 10*3/uL 0.83-4.51 [facility] Work Phone: Basophil percentageon 2021 Basophils/100 WBC (Bld) 0.1 % 0-1 [facility] Work Phone: Chloride [Moles/Vol] 108 mmol/L 98-107 [facility] Work Phone: Eosinophils/100 WBC (Bld) 0.1 % 0-5 [facility] Work Phone: Glucose [Mass/Vol] 137 mg/dL 74-106 [facility] Work Phone: Comment on above: Fasting Glucose resu lt greater than or equal to 126 mg/dL suggests DIABETES MELLITUS per A.D.A. criteria. Neutrophils (Bld) [#/Vol] 7.3 10*3/uL 2.0-7.7 [facility] Work Phone: Neutrophils/100 WBC (Bld) 76.6 % 47-70 [facility] Work Phone: Potassium [Moles/Vol] 3.4 mmol/L 3.5-5.1 [facility] Work Phone: Sodium [Moles/Vol] 139 mmol/L 136-145 [facility] Work Phone: WBC (Bld) [#/Vol] 9.5 10*3/uL 4.4-11.0 [facility] Work Phone: Blood erythrocytes count (nu mber/volume)on 09-27-2021 RBC (Bld) [#/Vol] 4.53 10*6/uL 4.6-6.2 [facility] Work Phone: Blood hemoglobin measurement (mass/volume)on 09-27-2021 Hemoglobin (Bld) [Mass/Vol] 13.9 g/dL 13.0-16.5 [facility] Work Phone: Blood lymphocytes/100 leukoc yteson 09-27-2021 Lymphocytes/100 WBC (Bld) 13.2 % 19-41 [facility] Work Phone: Blood monocytes/100 leukocyt eson 09-27-2021 Monocytes/100 WBC (Bld) 9.7 % 0-10 [facility] Work Phone: Blood platelet mean volumeon 09-27-2021 Platelet mean volume (Bld) [Entitic vol] 9.4 fL 6.2-12.0 [facility] Work Phone: Determination of erythrocyte mean corpuscular volume (MCV)on 09-27-2021 MCV (RBC) [Entitic vol] 85.9 fL 80-94 [facility] Work Phone: Glucose Glucometer (BldC) [M ass/Vol]on 09-27-2021 Glucose [Mass/Vol] 135 mg/dL 74-106 [facility] Work Phone: Comment on above: MANAGEMENT OF PATIEN T CARE PER NURSING PROTOCOL Hematocrit Auto (Bld) [Volum e fraction]on 09-27-2021 Hematocrit (Bld) [Volume fraction] 38.9 % 40-54 [facility] Work Phone: Laboratory - Chemistry and C hemistry - challengeon 09-27-2021 CO2 [Moles/Vol] 22.0 mmol/L 21.0-32.0 [facility] Work Phone: Urea nitrogen/Creatinine [Mass ratio] 9.0 mg/mg 10-20 [facility] Work Phone: Laboratory - Hematology and Cell countson 09-27-2021 Erythrocyte distribution width (RBC) [Entitic vol] 39.5 fL 35.1-43.9 [facility] Work Phone: Erythrocyte distribution width (RBC) [Ratio] 12.6 % 11.6-14.6 [facility] Work Phone: Immature granulocytes/100 WBC (Bld) 0.300 % 0.0-0.9 [facility] Work Phone: Comment on above: IG% - Immature Granu locytes (promyelocytes, myelocytes and metamyelocytes) > 1% indicates that a LEFT SHIFT is Present. MCH (RBC) [Entitic mass] 30.7 pg 27.0-32.0 [facility] Work Phone: Nucleated RBC/100 WBC (Bld) [Ratio] 0 % 0-5 [facility] Work Phone: MCHC Auto (RBC) [Mass/Vol]on 09-27-2021 MCHC (RBC) [Mass/Vol] 35.7 g/dL 32-36 [facility] Work Phone: No Panel Informationon 09-27 Estimated Creatinine Clearance Calc 147.52 ml/min [facility] Work Phone: Estimated GFR (MDRD) Amer 133 mL/min >60 [facility] Work Phone: Comment on above: GFR Calc Estimated GFR (MDRD) Non-Af Amer 110 mL/min >60 [facility] Work Phone: Comment on above: Non- GFR Calc Platelets bldon 09-27-2021 Platelets (Bld) [#/Vol] 150 10*3/uL 150-450 [facility] Work Phone: Serum or plasma calcium bucky urement (mass/volume)on 09-27-2021 Calcium [Mass/Vol] 8.6 mg/dL 8.5-10.1 [facility] Work Phone: Serum or plasma creatinine m easurement (mass/volume)on 09-27-2021 Creatinine [Mass/Vol] 0.89 mg/dL 0.70-1.30 [facility] Work Phone: Comment on above: The validity of the calculated GFR & GFRAA in patients over 70 years has not been determined. Clinical correlation is essential. Serum or plasma urea nitroge n measurement (mass/volume)on 09-27-2021 Urea nitrogen [Mass/Vol] 8 mg/dL 7-18 [facility] Work Phone: Thin prep Papanicolaou smear with manual screeningon 09-27-2021 Thin prep Papanicolaou smear with manual screening 9 5-15 [facility] Work Phone: Basophil percentageon 2021 Bilirubin [Mass/Vol] 0.70 mg/dL 0.20-1.00 [facility] Work Phone: Comment on above: For patients on eltr ombopag therapy, use of [employer] [place] TBIL is not recommended. Protein [Mass/Vol] 6.8 g/dL 6.4-8.2 [facility] Work Phone: Laboratory - Chemistry and C hemistry - challengeon 09-26-2021 ALP [Catalytic activity/Vol] 80 U/L 45-117 [facility] Work Phone: ALT [Catalytic activity/Vol] 30 U/L 16-61 [facility] Work Phone: Globulin (S) [Mass/Vol] 3.2 g/dL 2.2-4.2 [facility] Work Phone: Review by pathologiston Pathologist review Gabriel (Unsp spec) [Interp] Reviewed [facility] Work Phone: Comment on above: Previous reported re sult: Jennifer gray Edited by: FAITH on 09/27/21:1033Neutrophilic leukocytosis.Clinical correlation necessary.Sim Hassan M.D. 09/27/21 AMENDED REPORT 09/27/21 1033 PATH REV previously reported as: Jennifer gray Serum or plasma albumin bucky urement (mass/volume)on 09-26-2021 Albumin [Mass/Vol] 3.6 g/dL 3.2-5.0 [facility] Work Phone: Serum or plasma albumin/glob ulin mass ratioon 09-26-2021 Albumin/Globulin [Mass ratio] 1.1 {ratio} 0.9-2.4 [facility] Work Phone: Thin prep Papanicolaou smear with manual screeningon 09-26-2021 Thin prep Papanicolaou smear with manual screening 18 U/L 15-37 [facility] Work Phone: Whole blood hemoglobin A1c/t otal hemoglobin ratio (mass fraction)on 09-26-2021 HbA1c (Bld) [Mass fraction] 9.8 % 3.8-5.6 [facility] Work Phone: Comment on above: Normal < 5.7 % Predi abetic 5.7 - 6.4 % Diabetic >or= 6.5 % Please note range changes. Absolute lymphocyte counton 09-25-2021 Lymphocytes Auto (Unsp spec) [#/Vol] 1.17 10*3/uL 0.83-4.51 [facility] Work Phone: Basophil percentageon 2021 Basophil percentage 0 SEEN /hpf [facility] Work Phone: Chloride [Moles/Vol] 98 mmol/L 98-107 [facility] Work Phone: Glucose [Mass/Vol] 477 mg/dL 74-106 [facility] Work Phone: Comment on above: Critical Result(s) C alled at: 21:31:58 09/25/2021 by: Ana Paula Grant. Results read back by same.Glucose result greater than or equal to 200 mg/dLsuggests DIABETES MELLITUS per A.D.A. criteria. Potassium [Moles/Vol] 5.5 mmol/L 3.5-5.1 [facility] Work Phone: Sodium [Moles/Vol] 136 mmol/L 136-145 [facility] Work Phone: Basophil percentage 8.2 mg/dL 2.5-4.9 [facility] Work Phone: Basophils/100 WBC (Bld) 0.5 % 0-1 [facility] Work Phone: Bilirubin [Mass/Vol] 0.80 mg/dL 0.20-1.00 [facility] Work Phone: Comment on above: For patients on eltr ombopag therapy, use of [employer] [place] TBIL is not recommended. Eosinophils/100 WBC (Bld) 0.1 % 0-5 [facility] Work Phone: Neutrophils (Bld) [#/Vol] 26.2 10*3/uL 2.0-7.7 [facility] Work Phone: Neutrophils/100 WBC (Bld) 85.9 % 47-70 [facility] Work Phone: Protein [Mass/Vol] 8.6 g/dL 6.4-8.2 [facility] Work Phone: WBC (Bld) [#/Vol] 30.5 10*3/uL 4.4-11.0 [facility] Work Phone: Comment on above: CRITICAL VALUE VERIF IED. CALLED TO JANESSA JUNG09/25/21 [facility]RESULTS READ BACK BY SAME . Bilirubin Test strip Ql (U)o n 09-25-2021 Bilirubin Ql (U) Negative Negative [facility] Work Phone: [phone] Blood erythrocytes count (nu mber/volume)on 09-25-2021 RBC (Bld) [#/Vol] 5.42 10*6/uL 4.6-6.2 [facility] Work Phone: Blood hemoglobin measurement (mass/volume)on 09-25-2021 Hemoglobin (Bld) [Mass/Vol] 16.6 g/dL 13.0-16.5 [facility] Work Phone: Blood lymphocytes/100 leukoc yteson 09-25-2021 Lymphocytes/100 WBC (Bld) 3.8 % 19-41 [facility] Work Phone: Blood manual differential co mment interpretation (narrative result)on 09-25-2021 Manual differential comment Gabriel (Bld) [Interp] See comment [facility] Work Phone: Comment on above: MONOCYTOSIS NOTEDNEU TROPHILIA NOTED Blood monocytes/100 leukocyt eson 09-25-2021 Monocytes/100 WBC (Bld) 8.6 % 0-10 [facility] Work Phone: Blood platelet adequacy dete ction by light microscopyon 09-25-2021 Platelets LM Ql (Bld) ADEQUATE ADEQ [facility] Work Phone: Blood platelet mean volumeon 09-25-2021 Platelet mean volume (Bld) [Entitic vol] 10.2 fL 6.2-12.0 [facility] Work Phone: Determination of erythrocyte mean corpuscular volume (MCV)on 09-25-2021 MCV (RBC) [Entitic vol] 92.1 fL 80-94 [facility] Work Phone: Direct bilirubinon 2 Bilirubin.direct [Mass/Vol] 0.15 mg/dL 0.00-0.30 [facility] Work Phone: Glucose Glucometer (BldC) [M ass/Vol]on 09-25-2021 Glucose [Mass/Vol] mg/dL 74-106 [facility] Work Phone: Comment on above: Dr Christina BOJORQUEZ OF PATIENT CARE PER NURSING PROTOCOL HCO3 (BldA) [Moles/Vol]on HCO3 (Bld) [Moles/Vol] 5 mmol/L 22-26 [facility] Work Phone: Hematocrit Auto (Bld) [Volum e fraction]on 09-25-2021 Hematocrit (Bld) [Volume fraction] 49.9 % 40-54 [facility] Work Phone: Ketones Test strip Ql (U)on 09-25-2021 Ketones Ql (U) 150 mg/dl Negative [facility] Work Phone: Comment on above: CRITICAL VALUE *HCRI TICAL VALUE VERIFIED. CALLED TO [id number] Ana Paula Field.RESULTS READ BACK BY SAME . Laboratory - Chemistry and C hemistry - challengeon 09-25-2021 CO2 [Moles/Vol] 7.0 mmol/L 21.0-32.0 [facility] Work Phone: Comment on above: Critical Result(s) C alled at: 21:31:39 09/25/2021 by: Ana Paula Grant. Results read back by same. Urea nitrogen/Creatinine [Mass ratio] 15.1 mg/mg 10-20 [facility] Work Phone: CO2 [Moles/Vol] 5 mmol/L 23-33 [facility] Work Phone: ALP [Catalytic activity/Vol] 117 U/L 45-117 [facility] Work Phone: ALT [Catalytic activity/Vol] 38 U/L 16-61 [facility] Work Phone: Globulin (S) [Mass/Vol] 3.9 g/dL 2.2-4.2 [facility] Work Phone: Magnesium [Mass/Vol] 2.6 mg/dL 1.6-2.6 [facility] Work Phone: Laboratory - Hematology and Cell countson 09-25-2021 Erythrocyte distribution width (RBC) [Entitic vol] 41.3 fL 35.1-43.9 [facility] Work Phone: Erythrocyte distribution width (RBC) [Ratio] 12.2 % 11.6-14.6 [facility] Work Phone: Immature granulocytes/100 WBC (Bld) 1.100 % 0.0-0.9 [facility] Work Phone: Comment on above: IG% - Immature Granu locytes (promyelocytes, myelocytes and metamyelocytes) > 1% indicates that a LEFT SHIFT is Present. MCH (RBC) [Entitic mass] 30.6 pg 27.0-32.0 [facility] Work Phone: Nucleated RBC/100 WBC (Bld) [Ratio] 0 % 0-5 [facility] Work Phone: MCHC Auto (RBC) [Mass/Vol]on 09-25-2021 MCHC (RBC) [Mass/Vol] 33.3 g/dL 32-36 [facility] Work Phone: Mucus LM Ql (Urine sed)on Mucus Ql (Urine sed) 0 SEEN /hpf [facility] Work Phone: Nitrite Test strip Ql (U)on 09-25-2021 Nitrite Ql (U) Negative Negative [facility] Work Phone: No Panel Informationon 09-25 Respiratory Panel (PCR) [facility] Work Phone: Estimated Creatinine Clearance Calc 68.38 ml/min [facility] Work Phone: Estimated GFR (MDRD) Amer 55 mL/min >60 [facility] Work Phone: Comment on above: GFR Calc Estimated GFR (MDRD) Non-Af Amer 46 mL/min >60 [facility] Work Phone: Comment on above: Non- GFR Calc Bed Mix Venous Bld PCO2 at Pat Temp 20.8 mmHg 41-51 [facility] Work Phone: Bld Gas Crit Called To/Read Back By Yes [facility] Work Phone: Blood Gas Notified Time 18:50:44 [facility] Work Phone: Blood Gas Notified Whom [facility] Work Phone: Blood Gas Specimen Type BRITTNY [facility] Work Phone: Oxygen Delivery Device Room Air [facility] Work Phone: Venous Blood Base Excess -27 mmol/L -1.0-3.5 [facility] Work Phone: PO2 venouson 09-25-2021 Oxygen (BldV) [Partial pressure] 50 mm[Hg] 25-40 [facility] Work Phone: Platelets bldon 09-25-2021 Platelets (Bld) [#/Vol] 334 10*3/uL 150-450 [facility] Work Phone: Protein Test strip Ql (U)on 09-25-2021 Protein Ql (U) 30 mg/dl Negative [facility] Work Phone: RBC morphologyon 09-25-2021 RBC morphology finding Nom (Bld) NORM C+C NORMAL NORM C&C [facility] Work Phone: Review by pathologiston Pathologist review Gabriel (Unsp spec) [Interp] May foll [facility] Work Phone: Serum or plasma acetone bucky urement (mass/volume)on 09-25-2021 Acetone [Mass/Vol] LARGE NEG [facility] Work Phone: Serum or plasma albumin bucky urement (mass/volume)on 09-25-2021 Albumin [Mass/Vol] 4.7 g/dL 3.2-5.0 [facility] Work Phone: Serum or plasma calcium bucky urement (mass/volume)on 09-25-2021 Calcium [Mass/Vol] 8.5 mg/dL 8.5-10.1 [facility] Work Phone: Serum or plasma creatinine m easurement (mass/volume)on 09-25-2021 Creatinine [Mass/Vol] 1.92 mg/dL 0.70-1.30 [facility] Work Phone: Comment on above: The validity of the calculated GFR & GFRAA in patients over 70 years has not been determined. Clinical correlation is essential. Serum or plasma urea nitroge n measurement (mass/volume)on 09-25-2021 Urea nitrogen [Mass/Vol] 29 mg/dL 7-18 [facility] Work Phone: Squamous epithelial cells de tection in urine sediment by light microscopyon 09-25-2021 Epithelial cells.squamous LM Ql (Urine sed) 0 SEEN /hpf [facility] Work Phone: Thin prep Papanicolaou smear with manual screeningon 09-25-2021 Thin prep Papanicolaou smear with manual screening 31 5-15 [facility] Work Phone: Thin prep Papanicolaou smear with manual screening 23 U/L 15-37 [facility] Work Phone: Urine blood detectionon 05-0 RBC Ql (U) 50 /ul Negative [facility] Work Phone: RBC Ql (U) 0 SEEN /hpf [facility] Work Phone: Urine clarityon 09-25-2021 Clarity (U) Clear Clear [facility] Work Phone: Urine color determinationon 09-25-2021 Color (U) Yellow Yellow [facility] Work Phone: Urine glucose detectionon Glucose Ql (U) 1000 mg/dl Normal [facility] Work Phone: Urine leukocyte esterase det ection by dipstickon 09-25-2021 Leukocyte esterase Test strip Ql (U) Negative Negative [facility] Work Phone: Urine pHon 09-25-2021 pH (U) 5.0 [pH] [facility] Work Phone: Urine sediment bacteria coun t by microscopy (number/high power field)on 09-25-2021 Bacteria LM.HPF (Urine sed) [#/Area] 0 /[HPF] None Seen [facility] Work Phone: Urine specific gravity measu rementon 09-25-2021 Specific gravity (U) [Rel density] 1.025 [facility] Work Phone: Urobilinogen Auto test strip Ql (U)on 09-25-2021 Urobilinogen Ql (U) Normal mg/dl Normal [facility] Work Phone: Vital signson 09-25-2021 Oxygen saturation in Blood 63 % 50-70 [facility] Work Phone: pH measurementon 09-25-2021 pH (Unsp spec) 6.96 [pH] 7.32-7.42 [facility] Work Phone: Complete Blood Count + Diffe rentialon 07-26-2021 Basophils/100 WBC (Bld) 0.8 % 0.0 - 2.0 [facility] Work Phone: Erythrocyte distribution width (RBC) [Ratio] 12.3 % See Below [facility] Work Phone: Comment on above: Reference Range: 11. 5 - 14.5 Hematocrit (Bld) [Volume fraction] 51.4 % See Below [facility] Work Phone: Comment on above: Reference Range: 41. 0 - 52.0 Hemoglobin (Bld) [Mass/Vol] 17.2 g/dL See Below [facility] Work Phone: Comment on above: Reference Range: 13. 5 - 17.5 Lymphocytes/100 WBC (Bld) 23.1 % See Below [facility] Work Phone: Comment on above: Reference Range: 13. 0 - 44.0 MCHC (RBC) [Mass/Vol] 33.5 g/dL See Below [facility] Work Phone: Comment on above: Reference Range: 32. 0 - 36.0 MCV (RBC) [Entitic vol] 92 fL 80 - 100 [facility] Work Phone: Monocytes/100 WBC (Bld) 10.6 % 2.0 - 10.0 [facility] Work Phone: Neutrophils/100 WBC (Bld) 62.8 % See Below [facility] Internal Medicine Work Phone: Comment on above: Reference Range: 40. 0 - 80.0 Platelets (Bld) [#/Vol] 289 10*3/uL 150 - 450 [facility] Internal [facility] Work Phone: RBC (Bld) [#/Vol] 5.61 {x10E12/L} See Below [facility] Internal Medicine Work Phone: Comment on above: Reference Range: 4.5 0 - 5.90 WBC (Bld) [#/Vol] 8.6 10*3/uL 4.4 - 11.3 [facility] Work [facility]: Complete Blood Count + Differential 0.07 {x10E9/L} See Below [facility] Work Phone: Comment on above: Reference Range: 0.0 0 - 0.10 Complete Blood Count + Differential 0.17 {x10E9/L} See Below [facility] Work Phone: Comment on above: Reference Range: 0.0 0 - 0.70 Complete Blood Count + Differential 0.91 {x10E9/L} See Below [facility] Internal [facility] Work Phone: Comment on above: Reference Range: 0.1 0 - 1.00 Complete Blood Count + Differential 1.99 {x10E9/L} See Below [facility] Work Phone: Comment on above: Reference Range: 1.2 0 - 4.80 Complete Blood Count + Differential 5.41 {x10E9/L} See Below [facility] Work Phone: Comment on above: Reference Range: 1.2 0 - 7.70 Complete Blood Count + Differential 2.0 % 0.0 - 6.0 [facility] Work Phone: Complete Blood Count + Differential 0.7 % 0.0 - 0.9 [facility] Work Phone: Comment on above: Immature Granulocyte Count (IG) includes promyelocytes, myelocytes and metamyelocytes but does not include bands. Percent differential counts (%) should be interpreted in the context of the absolute cell counts (cells/L). Complete Blood Count + Differential 0.0 {/100_WBC} 0.0-0.0 [facility] Work Phone: Hemoglobin A1Con 07-26-2021 Glucose [Mass/Vol] 235 mg/dL [facility] Internal Medicine Work Phone: HbA1c (Bld) [Mass fraction] 9.8 % Abnormal [facility] Internal Medicine Work Phone: Comment on above: Diagnosis of Diabete s-Adults Non-Diabetic: < or = 5.6% Increased risk for developing diabetes: 5.7-6.4% Diagnostic of diabetes: > or = 6.5%. Monitoring of Diabetes Age (y) Therapeutic Goal (%) Adults: >18 <7.0 Pediatrics: 13-18 <7.5 7-12 <8.0 0- 6 7.5-8.5 [employer]. Diabetes Care 33(S1), May 2009. Laboratory - Chemistry and C hemistry - challengeon 07-26-2021 Albumin BCP dye [Mass/Vol] 4.8 g/dL 3.4 - 5.0 [facility] Internal [facility] Work Phone: Albumin Ql (U) 263.0 mg/L See Below [facility] Internal Medicine Work Phone: Comment on above: Reference Range: Not Established Albumin/Creatinine DL <= 20 mg/L (U) [Mass ratio] 263.5 {ug/mg_crt} above high threshold 0.0 - 30.0 [facility] Internal Medicine Work Phone: ALP [Catalytic activity/Vol] 121 U/L above high threshold 33 - 120 [facility] Internal [facility] Work Phone: ALT With P-5'-P [Catalytic activity/Vol] 34 U/L 10 - 52 [facility] Internal Medicine Work Phone: Comment on above: Patients treated wit h Sulfasalazine may generate falsely decreased results for ALT. Anion gap [Moles/Vol] 15 mmol/L 10 - 20 [facility] Internal Medicine Work Phone: AST With P-5'-P [Catalytic activity/Vol] 21 U/L 9 - 39 [facility] Internal Medicine Work Phone: Bilirubin [...] dosing. Cholesterol in HDL [Mass/Vol] 56.5 mg/dL [facility] Internal [facility] Work Phone: Comment on above: . AGE VERY LOW LOW N ORMAL HIGH 0-19 Y < 35 < 40 40-45 ---- 20-24 Y ---- < 40 >45 ---- >24 Y ---- < 40 40-60 >60. Cholesterol in LDL [Mass/Vol] 148 mg/dL above high threshold 0 - 119 [facility] Work Phone: Comment on above: . NEAR BORD AGE KRISTY RABLE OPTIMAL HIGH HIGH VERY HIGH 0-19 Y 0 - 109 --- 110-129 >/= 130 ---- 20-24 Y 0 - 119 --- 120-159 >/= 160 ---- >24 Y 0 - 99 100-129 130-159 160-189 >/=190. Cholesterol.total/Chol esterol in HDL [Mass ratio] 4.3 {ratio} [facility] Work Phone: Comment on above: REF VALUESDESIRABLE < 3.4HIGH RISK > 5.0 Triglyceride [Mass/Vol] 186 mg/dL above high threshold 0 - 149 [facility] Work Phone: Comment on above: [...] Lipid Panel 37 mg/dL 0 - 40 [facility] Work Phone: No Panel Informationon 07-26 >90 >90 [facility] Work Phone: Comment on above: CALCULATIONS OF LUIS FELIPE MATED GFR ARE PERFORMED USING THE 2020 CKD-EPI STUDY REFIT EQUATION WITHOUT THE RACE VARIABLE FOR THE IDMS-TRACEABLE CREATININE METHODS.https://jasn.asnjournals.org/content//A [email or web address] Office Visit (Internal Medic ine)on 07-26-2021 Follow-up [...] essential hypertension; FROY = N; Sent To: [id number]; Last Updated By: System, Anbado Videoer; 07/26/2021 9:33:03 AM SocHx: Never smoker Tobacco Use Screening; Status:Complete; Done: 26Jul2021 Perform:Not Applicable;Ordered; For:SocHx: Never smoker; Ordered By:Dexter Daniel; URI (upper respiratory infection) Start: Amoxicillin 500 MG Oral Tablet; TAKE 1 TABLET 3 TIMES DAILY Rx By: Dexter Danile; Dispense: 10 Days ; #:30 Tablet; Refill: 0;For: URI (upper respiratory infection); FROY = N; Sent To: [facility] #[id number]; Last Updated By: SystemClaro Energyer; 07/26/2021 9:33:04 AM Patient Discussion/Summary Healthy Lifestyle [...] 07-26-2021 TSH Qn 2.54 m[IU]/L See Below [facility] Internal [facility] Work Phone: Comment on above: Reference Range: 0.4 4 - 3.98 TSH testing is performed using different testing methodology at [facility] than at other [facility]. Direct result comparisons should only be made within the same method. Tobacco Screening.on 022 Fall risk assessment a) No falls within the last year [facility] Work Phone: Tobacco use status [facility] b) [facility] Work Phone: Vitamin D 25-Hydroxyon 07-26 25-hydroxyvitamin D3 [Mass/Vol] 11 ng/mL Abnormal [facility] Internal Medicine Work Phone: Comment on above: .DEFICIENCY: < 20 NG /MLINSUFFICIENCY: 20-29 NG/MLSUFFICIENCY: 30-100 NG/MLTHIS ASSAY ACCURATELY QUANTIFIES THE SUM OFVITAMIN D3, 25-HYDROXY AND VIT D2,25-HYDROXY. Tobacco Screening.on 022 Adult depression screening assessment No [facility] Internal Medicine Work Phone: Tobacco use status [facility] b) [facility] Work Phone: Fall risk assessment a) No falls within the last year [facility] Internal Medicine Work Phone: Tobacco use status [facility] b) No [facility] Internal Medicine Work Phone: US [...] mm.IMPRESSION: Homogeneous thyroid echotexture, without focal thyroid nodule.Decommissioning Well Site Manager : LESA Transcribe Date/Time: Sep 02 2017 7:58ADictated by : GEE TEJADA MDThis examination was interpreted and the report reviewed and electronically signed by: GEE TEJADA MD on Sep 02 2017 7:59AM [facility] Vital Signs Date Time Vital Sign Value Performing Clinician Facility 02-07-2025 22:50-0400 Body temperature 98.1 [degF] Dr. Dexter Daniel MD Work Phone: 7(945)385-082478 [place] [address] 02-07-2025 22:50-0400 Diastolic blood pressure 102 mm[Hg] Dr. Dexter Daniel MD Work Phone: 9(806)714-204003 [place] [address] 02-07-2025 22:50-0400 Heart rate 87 /min Dr. Dexter Daniel MD Work Phone: 9(977)142-526403 [place] [address] 02-07-2025 22:50-0400 Respiratory rate 16 /min Dr. Dexter Daniel MD Work Phone: 7(315)736-124803 [place] [address] 02-07-2025 22:50-0400 SaO2% (BldA) [Mass fraction] 98 % Dr. Dexter Daniel MD Work Phone: 4(125)031-848703 [place] [address] 02-07-2025 22:50-0400 Systolic blood pressure 144 mm[Hg] Dr. Dexter Daniel MD Work Phone: 9(640)580-134403 [place] [address] 02-07-2025 20:01-0400 Body height 185.[address] Dexter Daniel MD Work Phone: 7(699)646-477403 [place] [address] 02-07-2025 20:01-0400 Body mass index (BMI) [Ratio] 26.2 kg/m2 Dr. Dexter Daniel MD Work Phone: 1(385)524-744203 [place] [address] 02-07-2025 20:01-0400 Body weight 89.[address] Dexter Daniel MD Work Phone: 0(273)558-619603 [place] [address] 01-22-2025 18:39-0400 Body temperature 98.7 [degF] Dr. Dexter Daniel MD Work Phone: 5(753)895-595203 [place] [address] 01-22-2025 18:39-0400 Diastolic blood pressure 90 mm[Hg] Dr. Dexter Daniel MD Work Phone: [facility] 01-22-2025 18:39-0400 Heart rate 77 /min Dr. Dexter Daniel MD Work Phone: [facility] 01-22-2025 18:39-0400 Respiratory rate 20 /min Dr. Dexter Daniel MD Work Phone: [facility] 01-22-2025 18:39-0400 SaO2% (BldA) [Mass fraction] 100 % Dr. Dexter Daniel MD Work Phone: [facility] 01-22-2025 18:39-0400 Systolic blood pressure 138 mm[Hg] Dr. Dexter Daniel MD Work Phone: 6(560)827-155978 [place] [address] 01-22-2025 12:29-0400 Body height 185.[address] Dexter Daniel MD Work Phone: [facility] 01-22-2025 12:29-0400 Body mass index (BMI) [Ratio] 27.3 kg/m2 Dr. Dexter Daniel MD Work Phone: [facility] 01-22-2025 12:29-0400 Body weight [address] Dexter Daniel MD Work Phone: [facility] 03-02-2024 11:00-0400 Body temperature 97 [degF] Mona Rodriguez DO Work Phone: [facility] 03-02-2024 08:22-0400 Diastolic blood pressure 109 mm[Hg] Mona Rodriguez DO Work Phone: [facility] 03-02-2024 08:22-0400 Heart rate 78 /min Mona Rodriguez DO Work Phone: [facility] 03-02-2024 08:22-0400 Systolic blood pressure 151 mm[Hg] Mona Rodriguez DO Work Phone: [facility] 03-02-2024 06:00-0400 Respiratory rate 25 /min Mona Rodriguez DO Work Phone: [facility] 03-02-2024 06:00-0400 SaO2% (BldA) [Mass fraction] 100 % Mona Rodriguez DO Work Phone: [facility] 03-02-2024 01:24-0400 Body height 186 cm Mona Rodriguez DO Work Phone: [facility] 03-02-2024 01:24-0400 Body mass index (BMI) [Ratio] 25.26 kg/m2 Mona Rodriguez DO Work Phone: [facility] 03-02-2024 01:24-0400 Body weight 87.4 kg Mona Rodriguez DO Work Phone: [facility] 03-01-2024 18:35-0400 Body temperature 37.0 Mona Rodriguez DO Work Phone: [facility] 03-01-2024 18:30-0400 Body temperature 37.0 degrees Celsius [facility] Comment on above: Performed By: #### [id number] #### [facility] ([id number]) [facility] ([facility]) [address] [place] [address] 12-15-2023 09:53-0400 Body height 185.4 cm Dexter Daniel MD Work Phone: [facility] 12-15-2023 09:53-0400 Body mass index (BMI) [Ratio] 27.42 kg/m2 Dexter Daniel MD Work Phone: [facility] 12-15-2023 09:53-0400 Body temperature 97.11 [degF] Dexter Daniel MD Work Phone: [facility] 12-15-2023 09:53-0400 Body weight 94.26 kg Dexter Daniel MD Work Phone: [facility] 12-15-2023 09:53-0400 Diastolic blood pressure 78 mm[Hg] Dexter Daniel MD Work Phone: [facility] 12-15-2023 09:53-0400 Heart rate 85 /min Dexter Daniel MD Work Phone: [facility] 12-15-2023 09:53-0400 SaO2% (BldA) [Mass fraction] 98 % Dexter Daniel MD Work Phone: 2(785)220-028172 [place] [address] 12-15-2023 09:53-0400 Systolic blood pressure 142 mm[Hg] Dexter Daniel MD Work Phone: 0(847)109-188142 [place] [address] 12-08-2023 14:14-0400 Body height 185.4 cm Dexter Daniel MD Work Phone: 4(324)979-912942 [place] [address] 12-08-2023 14:14-0400 Body mass index (BMI) [Ratio] 25.99 kg/m2 Dexter Daniel MD Work Phone: 5(138)755-474142 [place] [address] 12-08-2023 14:14-0400 Body weight 89.36 kg Dexter Daniel MD Work Phone: 5(376)531-186542 [place] [address] 12-08-2023 14:14-0400 Diastolic blood pressure 90 mm[Hg] Dexter Daniel MD Work Phone: 7(674)117-205142 [place] [address] 12-08-2023 14:14-0400 Heart rate 109 /min Dexter Daniel MD Work Phone: 2(253)681-243942 [place] [address] 12-08-2023 14:14-0400 SaO2% (BldA) [Mass fraction] 98 % Dexter Daniel MD Work Phone: 8(193)221-819067 [place] [address] 12-08-2023 14:14-0400 Systolic blood pressure 160 mm[Hg] Dexter Daniel MD Work Phone: 4(430)449-186542 [place] [address] 09-04-2023 11:27-0400 Body temperature 98 [degF] Dr. Paul Ontiveros Work Phone: [facility] 09-04-2023 11:27-0400 Diastolic blood pressure 97 mm[Hg] Dr. Paul Ontiveros Work Phone: [facility] 09-04-2023 11:27-0400 Heart rate 87 /min Dr. Paul Ontiveros Work Phone: [facility] 09-04-2023 11:27-0400 Respiratory rate 16 /min Dr. Paul Ontiveros Work Phone: [facility] 09-04-2023 11:27-0400 SaO2% (BldA) [Mass fraction] 99 % Dr. Paul Ontiveros Work Phone: [facility] 09-04-2023 11:27-0400 Systolic blood pressure 150 mm[Hg] Dr. Paul Ontiveros Work Phone: [facility] 09-04-2023 07:40-0400 Body height 185.[address] Paul Ontiveros Work Phone: [facility] 09-04-2023 07:40-0400 Body mass index (BMI) [Ratio] 25.1 kg/m2 Dr. Paul Ontiveros Work Phone: [facility] 09-04-2023 07:40-0400 Body weight 86.[address] Paul Ontiveros Work Phone: [facility] 08-15-2023 15:23-0400 Body mass index (BMI) [Ratio] 25.8 kg/m2 Dr. Paul Ontiveros Work Phone: [facility] 08-15-2023 15:23-0400 Body temperature 98.2 [degF] Dr. Paul Ontiveros Work Phone: [facility] 08-15-2023 15:23-0400 Body weight 88.[address] Paul Ontiveros Work Phone: [facility] 08-15-2023 15:23-0400 Diastolic blood pressure 93 mm[Hg] Dr. Paul Ontiveros Work Phone: [facility] 08-15-2023 15:23-0400 Heart rate 83 /min Dr. Paul Ontiveros Work Phone: [facility] 08-15-2023 15:23-0400 SaO2% (BldA) [Mass fraction] 98 % Dr. Paul Ontiveros Work Phone: [facility] 08-15-2023 15:23-0400 Systolic blood pressure 150 mm[Hg] Dr. Paul Ontiveros Work Phone: [facility] 06-09-2023 08:47-0500 Body height 185.4 cm Dexter Daniel MD Work Phone: 4(126)571-735442 [place] [address] 06-09-2023 08:47-0500 Body mass index (BMI) [Ratio] 25.46 kg/m2 Dexter Daniel MD Work Phone: 8(467)329-812242 [place] [address] 06-09-2023 08:47-0500 Body temperature 97.59 [degF] Dexter Daniel MD Work Phone: 8(799)794-419742 [place] [address] 06-09-2023 08:47-0500 Body weight 87.54 kg Dexter Daniel MD Work Phone: 6(211)947-169142 [place] [address] 06-09-2023 08:47-0500 Diastolic blood pressure 107 mm[Hg] Dexter Daniel MD Work Phone: 4(444)261-030142 [place] [address] 06-09-2023 08:47-0500 Heart rate 107 /min Dexter Daniel MD Work Phone: 4(592)861-791842 [place] [address] 06-09-2023 08:47-0500 SaO2% (BldA) [Mass fraction] 97 % Dexter Daniel MD Work Phone: 3(321)847-988542 [place] [address] 06-09-2023 08:47-0500 Systolic blood pressure 146 mm[Hg] Dexter Daniel MD Work Phone: 8(271)071-022042 [place] [address] 03-23-2023 08:54-0400 Heart rate 66 /min Dr. Dafne Cornell Work Phone: [facility] 03-23-2023 08:00-0400 Body temperature 97.3 [degF] Dr. Dafne Cornell Work Phone: [facility] 03-23-2023 08:00-0400 Diastolic blood pressure 68 mm[Hg] Dr. Dafne Cornell Work Phone: [facility] 03-23-2023 08:00-0400 Respiratory rate 16 /min Dr. Dafne Cornell Work Phone: [facility] 03-23-2023 08:00-0400 SaO2% (BldA) [Mass fraction] 100 % Dr. Dafne Cornell Work Phone: [facility] 03-23-2023 08:00-0400 Systolic blood pressure 115 mm[Hg] Dr. Dafne Cornell Work Phone: [facility] 03-20-2023 10:28-0400 Body height 185.[address] Dafne Cornell Work Phone: [facility] 03-20-2023 10:28-0400 Body mass index (BMI) [Ratio] 24.2 kg/m2 Dr. Dafne Cornell Work Phone: [facility] 03-20-2023 10:28-0400 Body weight 83.[address] Dafne Cornell Work Phone: [facility] 10-22-2022 13:03-0400 Body height 185.4 cm Dexter Daniel MD Work Phone: [facility] 10-22-2022 13:03-0400 Body mass index (BMI) [Ratio] 24.94 kg/m2 Dexter Daniel MD Work Phone: [facility] 10-22-2022 13:03-0400 Body temperature 97.3 [degF] Dexter Daniel MD Work Phone: [facility] 10-22-2022 13:03-0400 Body weight 85.73 kg Dexter Daniel MD Work Phone: [facility] 10-22-2022 13:03-0400 Diastolic blood pressure 93 mm[Hg] Dexter Daniel MD Work Phone: [facility] 10-22-2022 13:03-0400 Heart rate 96 /min Dexter Daniel MD Work Phone: [facility] 10-22-2022 13:03-0400 SaO2% (BldA) [Mass fraction] 96 % Dexter Daniel MD Work Phone: [facility] 10-22-2022 13:03-0400 Systolic blood pressure 138 mm[Hg] Dexter Daniel MD Work Phone: [facility] 07-22-2022 16:33-0500 Body height 185.42 cm Dexter Daniel Work Phone: [facility] Work Phone: 07-22-2022 16:33-0500 Body mass index (BMI) [Ratio] 24.41 kg/m2 Dexter Daniel Work Phone: [facility] Work Phone: 07-22-2022 16:33-0500 Body surface area Derived from formula 2.08 m2 Dexter Daniel Work Phone: [facility] Work Phone: 07-22-2022 16:33-0500 Body temperature 97.3 [degF] Dexter Daniel Work Phone: [facility] Work Phone: 07-22-2022 16:33-0500 Body weight 83.92 kg Dexter Daniel Work Phone: [facility] Work Phone: 07-22-2022 16:33-0500 Diastolic blood pressure 93 mm[Hg] Dexter Uriosteguipara Work Phone: [facility] Work Phone: 07-22-2022 16:33-0500 Heart rate 101 /min Valsharmin Uriosteguipara Work Phone: [facility] Work Phone: 07-22-2022 16:33-0500 SaO2% (BldA) [Mass fraction] 99 % [facility] Tk Uriosteguipara Work Phone: [facility] Work Phone: 07-22-2022 16:33-0500 Systolic blood pressure 134 mm[Hg] Dexter Uriosteguipara Work Phone: [facility] Work Phone: 07-16-2022 11:36-0500 Body temperature 97.6 [degF] Dr. Lavell Patel Work Phone: [facility] 07-16-2022 11:36-0500 Diastolic blood pressure 104 mm[Hg] Dr. Lavell Patel Work Phone: [facility] 07-16-2022 11:36-0500 Heart rate 86 /min Dr. Lavell Patel Work Phone: [facility] 07-16-2022 11:36-0500 Respiratory rate 15 /min Dr. Lavell Patel Work Phone: [facility] 07-16-2022 11:36-0500 SaO2% (BldA) [Mass fraction] 99 % Dr. Lavell Patel Work Phone: [facility] 07-16-2022 11:36-0500 Systolic blood pressure 145 mm[Hg] Dr. Lavell Patel Work Phone: [facility] 07-16-2022 04:47-0500 Body mass index (BMI) [Ratio] 24.3 kg/m2 Dr. Lavell Patel Work Phone: [facility] 07-16-2022 04:47-0500 Body weight 83.[address] Lavell Patel Work Phone: [facility] 07-16-2022 00:37-0500 Body height 185.[address] Lavell Patel Work Phone: [facility] 07-16-2022 00:05-0500 Body temperature 98.2 [degF] Dr. Lavell Patel Work Phone: [facility] 07-16-2022 00:05-0500 Diastolic blood pressure 99 mm[Hg] Dr. Lavell Patel Work Phone: [facility] 07-16-2022 00:05-0500 Heart rate 88 /min Dr. Lavell Patel Work Phone: [facility] 07-16-2022 00:05-0500 Respiratory rate 16 /min Dr. Lavell Patel Work Phone: [facility] 07-16-2022 00:05-0500 SaO2% (BldA) [Mass fraction] 97 % Dr. Lavell Patel Work Phone: [facility] 07-16-2022 00:05-0500 Systolic blood pressure 162 mm[Hg] Dr. Lavell Patel Work Phone: [facility] 07-15-2022 21:19-0500 Body height 185.[address] Lavell Patel Work Phone: [facility] 07-15-2022 21:19-0500 Body mass index (BMI) [Ratio] 23.6 kg/m2 Dr. Lavell Patel Work Phone: [facility] 07-15-2022 21:19-0500 Body weight 81.[address] Lavell Patel Work Phone: [facility] 07-03-2022 19:51-0500 Diastolic blood pressure 97 mm[Hg] Dr. Lavell Patel Work Phone: [facility] 07-03-2022 19:51-0500 Heart rate 79 /min Dr. Lavell Patel Work Phone: [facility] 07-03-2022 19:51-0500 Respiratory rate 16 /min Dr. Lavell Patel Work Phone: [facility] 07-03-2022 19:51-0500 SaO2% (BldA) [Mass fraction] 99 % Dr. Lavell Patel Work Phone: [facility] 07-03-2022 19:51-0500 Systolic blood pressure 157 mm[Hg] Dr. Lavell Patel Work Phone: [facility] 07-03-2022 15:43-0500 Body height 185.[address] Lavell Patel Work Phone: [facility] 07-03-2022 15:43-0500 Body mass index (BMI) [Ratio] 26.4 kg/m2 Dr. Lavell Patel Work Phone: [facility] 07-03-2022 15:43-0500 Body temperature 96.9 [degF] Dr. Lavell Patel Work Phone: [facility] 07-03-2022 15:43-0500 Body weight 90.[address] Lavell Patel Work Phone: [facility] 06-20-2022 13:29-0500 Body temperature 98.1 [degF] Dr. Lavell Patel Work Phone: [facility] 06-20-2022 13:29-0500 Diastolic blood pressure 82 mm[Hg] Dr. Lavell Patel Work Phone: [facility] 06-20-2022 13:29-0500 Heart rate 71 /min Dr. Lavell Patel Work Phone: [facility] 06-20-2022 13:29-0500 Respiratory rate 18 /min Dr. Lavell Patel Work Phone: [facility] 06-20-2022 13:29-0500 SaO2% (BldA) [Mass fraction] 98 % Dr. Lavell Patel Work Phone: [facility] 06-20-2022 13:29-0500 Systolic blood pressure 132 mm[Hg] Dr. Lavell Patel Work Phone: [facility] 06-17-2022 11:46-0500 Body height 185.[address] Lavell Patel Work Phone: [facility] 06-17-2022 11:46-0500 Body mass index (BMI) [Ratio] 25.9 kg/m2 Dr. Lavell Patel Work Phone: [facility] 06-17-2022 11:46-0500 Body weight 89.[address] Lavell Patel Work Phone: [facility] 06-17-2022 11:00-0500 Diastolic blood pressure 79 mm[Hg] Dr. Paul Ontiveros Work Phone: [facility] 06-17-2022 11:00-0500 Heart rate 82 /min Dr. Paul Ontiveros Work Phone: [facility] 06-17-2022 11:00-0500 Respiratory rate 16 /min Dr. Paul Ontiveros Work Phone: [facility] 06-17-2022 11:00-0500 SaO2% (BldA) [Mass fraction] 99 % Dr. Paul Ontiveros Work Phone: [facility] 06-17-2022 11:00-0500 Systolic blood pressure 123 mm[Hg] Dr. Paul Ontiveros Work Phone: [facility] 06-17-2022 10:18-0500 Body temperature 98.3 [degF] Dr. Paul Ontiveros Work Phone: [facility] 06-17-2022 07:49-0500 Body height 185.[address] Paul Ontiveros Work Phone: [facility] 06-17-2022 07:49-0500 Body mass index (BMI) [Ratio] 26.1 kg/m2 Dr. Paul Ontiveros Work Phone: [facility] 06-17-2022 07:49-0500 Body weight 89.[address] Paul Ontiveros Work Phone: [facility] 06-06-2022 16:46-0500 Body height 185.42 cm Dexter Uriosteguipara Work Phone: [facility] Work Phone: 06-06-2022 16:46-0500 Body mass index (BMI) [Ratio] 27.31 kg/m2 Valji D Munsebpara Work Phone: [facility] Work Phone: 06-06-2022 16:46-0500 Body surface area Derived from formula 2.18 m2 Tristasharmin Uriosteguipara Work Phone: [facility] Work Phone: 06-06-2022 16:46-0500 Body temperature 97.5 [degF] Dexter Tk Quintanajapara Work Phone: [facility] Work Phone: 06-06-2022 16:46-0500 Body weight 93.9 kg Valsharmin D Kamalajapara Work Phone: [facility] Work Phone: 06-06-2022 16:46-0500 Diastolic blood pressure 96 mm[Hg] Tristasharmin D Kamalajapara Work Phone: [facility] Work Phone: 06-06-2022 16:46-0500 Heart rate 108 /min Valsharmin D Kamalajapara Work Phone: [facility] Work Phone: 06-06-2022 16:46-0500 SaO2% (BldA) [Mass fraction] 98 % Dexter Daniel Work Phone: [facility] Work Phone: 06-06-2022 16:46-0500 Systolic blood pressure 140 mm[Hg] Dexter Daniel Work Phone: [facility] Work Phone: 06-01-2022 14:25-0500 Diastolic blood pressure 107 mm[Hg] Dr. Paul Ontiveros Work Phone: [facility] 06-01-2022 14:25-0500 Heart rate 80 /min Dr. Paul Ontiveros Work Phone: [facility] 06-01-2022 14:25-0500 Respiratory rate 16 /min Dr. Paul Ontiveros Work Phone: [facility] 06-01-2022 14:25-0500 SaO2% (BldA) [Mass fraction] 96 % Dr. Paul Ontiveros Work Phone: [facility] 06-01-2022 14:25-0500 Systolic blood pressure 161 mm[Hg] Dr. Paul Ontiveros Work Phone: [facility] 06-01-2022 13:49-0500 Body height 185.[address] Paul Ontiveros Work Phone: [facility] Work Phone: 06-01-2022 13:49-0500 Body mass index (BMI) [Ratio] 26.4 kg/m2 Dr. Paul Ontiveros Work Phone: [facility] 06-01-2022 13:49-0500 Body temperature 97.2 [degF] Dr. Paul Ontiveros Work Phone: [facility] 06-01-2022 13:49-0500 Body weight 90.[address] Paul Ontiveros Work Phone: [facility] 05-29-2022 13:42-0500 Body mass index (BMI) [Ratio] 26.4 kg/m2 Dr. Paul Ontiveros Work Phone: [facility] 05-29-2022 13:42-0500 Body temperature 96.6 [degF] Dr. Paul Ontiveros Work Phone: [facility] 05-29-2022 13:42-0500 Body weight 90.[address] Paul Ontiveros Work Phone: [facility] 05-29-2022 13:42-0500 Diastolic blood pressure 84 mm[Hg] Dr. Paul Ontiveros Work Phone: [facility] 05-29-2022 13:42-0500 Heart rate 113 /min Dr. Paul Ontiveros Work Phone: [facility] 05-29-2022 13:42-0500 Respiratory rate 18 /min Dr. Paul Ontiveros Work Phone: [facility] 05-29-2022 13:42-0500 SaO2% (BldA) [Mass fraction] 97 % Dr. Paul Ontiveros Work Phone: [facility] 05-29-2022 13:42-0500 Systolic blood pressure 135 mm[Hg] Dr. Paul Ontiveros Work Phone: [facility] 05-03-2022 19:43-0500 Diastolic blood pressure 99 mm[Hg] [facility] 05-03-2022 19:43-0500 Heart rate 102 /min [facility] 05-03-2022 19:43-0500 Respiratory rate 16 /min [facility] 05-03-2022 19:43-0500 SaO2% (BldA) [Mass fraction] 98 % [facility] 05-03-2022 19:43-0500 Systolic blood pressure 153 mm[Hg] [facility] 05-03-2022 14:54-0500 Body temperature 98.5 [degF] [facility] 05-03-2022 13:26-0500 Body height 185.42 cm [facility] Work Phone: 05-03-2022 13:26-0500 Body mass index (BMI) [Ratio] 25 kg/m2 [facility] 05-03-2022 13:26-0500 Body weight 86.18 kg [facility] 01-29-2022 15:48-0400 Diastolic blood pressure 97 mm[Hg] Dr. Yrn Pollock Work Phone: [facility] Work Phone: 01-29-2022 15:48-0400 Heart rate 80 /min Dr. Yrn Pollock Work Phone: [facility] Work Phone: 01-29-2022 15:48-0400 Systolic blood pressure 141 mm[Hg] Dr. Yrn Pollock Work Phone: [facility] Work Phone: 01-29-2022 09:51-0400 Body height 187.[address] Yrn Pollock Work Phone: [facility] Work Phone: 01-29-2022 09:51-0400 Body mass index (BMI) [Ratio] 25 kg/m2 Dr. Yrn Pollock Work Phone: [facility] Work Phone: 01-29-2022 09:51-0400 Body temperature 97 [degF] Dr. Yrn Pollock Work Phone: [facility] Work Phone: 01-29-2022 09:51-0400 Body weight 88.[address] Yrn Pollock Work Phone: [facility] Work Phone: 01-29-2022 09:51-0400 Respiratory rate 16 /min Dr. Yrn Pollock Work Phone: [facility] Work Phone: 01-29-2022 09:51-0400 SaO2% (BldA) [Mass fraction] 100 % Dr. Yrn Pollock Work Phone: [facility] Work Phone: 11-14-2021 09:59-0400 Body mass index (BMI) [Ratio] 25.2 kg/m2 Dr. Yrn Pollock Work Phone: [facility] Work Phone: 11-14-2021 09:59-0400 Body temperature 93.7 [degF] Dr. Yrn Pollock Work Phone: [facility] Work Phone: 11-14-2021 09:59-0400 Body weight 88.[address] Yrn Pollock Work Phone: [facility] Work Phone: 11-14-2021 09:59-0400 Diastolic blood pressure 98 mm[Hg] Dr. Yrn Pollock Work Phone: [facility] Work Phone: 11-14-2021 09:59-0400 Heart rate 90 /min Dr. Yrn Pollock Work Phone: [facility] Work Phone: 11-14-2021 09:59-0400 Respiratory rate 18 /min Dr. Yrn Pollock Work Phone: [facility] Work Phone: 11-14-2021 09:59-0400 SaO2% (BldA) [Mass fraction] 99 % Dr. Yrn Pollock Work Phone: [facility] Work Phone: 11-14-2021 09:59-0400 Systolic blood pressure 140 mm[Hg] Dr. Yrn Pollock Work Phone: [facility] Work Phone: 09-27-2021 10:10-0400 Body temperature 97.7 [degF] Dr. Sachin Kennedy Work Phone: [facility] Work Phone: 09-27-2021 10:10-0400 Diastolic blood pressure 88 mm[Hg] Dr. Sachin Kennedy Work Phone: [facility] Work Phone: 09-27-2021 10:10-0400 Heart rate 73 /min Dr. Sachin Kennedy Work Phone: [facility] Work Phone: 09-27-2021 10:10-0400 Respiratory rate 18 /min Dr. Sachin Kennedy Work Phone: [facility] Work Phone: 09-27-2021 10:10-0400 SaO2% (BldA) [Mass fraction] 100 % Dr. Sachin Kennedy Work Phone: [facility] Work Phone: 09-27-2021 10:10-0400 Systolic blood pressure 133 mm[Hg] Dr. Sahcin Kennedy Work Phone: [facility] Work Phone: 09-27-2021 05:29-0400 Body weight [address] Sachin Kennedy Work Phone: [facility] Work Phone: 09-26-2021 09:30-0400 Body height 187.[address] Sachin Kennedy Work Phone: [facility] Work Phone: 09-25-2021 22:17-0400 Diastolic blood pressure 91 mm[Hg] [facility] Work Phone: 09-25-2021 22:17-0400 Heart rate 140 /min [facility] Work Phone: 09-25-2021 22:17-0400 Systolic blood pressure 137 mm[Hg] [facility] Work Phone: 09-25-2021 20:17-0400 Body height 187.96 cm [facility] Work Phone: 09-25-2021 20:17-0400 Body mass index (BMI) [Ratio] 24.7 kg/m2 [facility] Work Phone: 09-25-2021 20:17-0400 Body weight 87.5 kg [facility] Work Phone: 09-25-2021 19:35-0400 Body temperature 98 [degF] [facility] Work Phone: 09-25-2021 19:35-0400 Respiratory rate 21 /min [facility] Work Phone: 09-25-2021 19:35-0400 SaO2% (BldA) [Mass fraction] 100 % [facility] Work Phone: 07-26-2021 09:18-0500 Body height 185.42 cm Tristasharmin Uriosteguipara Work Phone: [facility] Work Phone: 07-26-2021 09:18-0500 Body mass index (BMI) [Ratio] 27.15 kg/m2 Dexter Quintanajapara Work Phone: [facility] Work Phone: 07-26-2021 09:18-0500 Body surface area Derived from formula 2.18 m2 Dexter Uriosteguipara Work Phone: [facility] Work Phone: 07-26-2021 09:18-0500 Body temperature 97.4 [degF] Dexter Quintanajapara Work Phone: [facility] Work Phone: 07-26-2021 09:18-0500 Body weight 93.35 kg Valji Tk Munjapara Work Phone: [facility] Work Phone: 07-26-2021 09:18-0500 Diastolic blood pressure 96 mm[Hg] Valsharmin Frey Munjapara Work Phone: [facility] Work Phone: 07-26-2021 09:18-0500 Systolic blood pressure 130 mm[Hg] Dexter Uriosteguipara Work Phone: [facility] Work Phone: 06-11-2021 14:07-0500 Diastolic blood pressure 90 mm[Hg] Dexter Uriosteguipara Work Phone: -[facility] Work Phone: 06-11-2021 14:07-0500 Systolic blood pressure 160 mm[Hg] Dexter Uriosteguipara Work Phone: -[facility] Work Phone: 06-11-2021 13:43-0500 Body temperature 97.4 [degF] Dexter Uriosteguipara Work Phone: [facility] Work Phone: 06-11-2021 13:43-0500 Body weight 92.99 kg Dexter Brusha Work Phone: [facility] Work Phone: 06-11-2021 13:43-0500 Heart rate 104 /min Dexter Brusha Work Phone: [facility] Work Phone: 06-11-2021 13:43-0500 SaO2% (BldA) [Mass fraction] 98 % Dexter Frey Kamalawendiea Work Phone: [facility] Work Phone: Encounters Encounter Date Encounter Type Care Provider Facility Start: 03-02-2025 End: 03-02-2025 [facility] Facility:[facility] Start: 02-07-2025 End: 02-07-2025 Emergency department patient visit Dr. Dexter Daniel MD Work Phone: -Emergency Department Work Phone: Start: 01-22-2025 End: 01-22-2025 Emergency department patient visit Dr. Dexter Daniel MD Work Phone: -Emergency Department Work Phone: Start: 09-20-2024 End: 09-20-2024 ambulatory [facility] Facility:[facility] Start: 06-19-2024 End: 06-19-2024 ambulatory [facility] Facility:[facility] Start: 06-15-2024 End: 06-15-2024 ambulatory [facility] Facility:[facility] Start: 03-01-2024 End: 03-02-2024 Evaluation and management of inpatient [facility] Work Phone: Comment on above: DKA, type 1, not at goal (Primary Dx); Acute pancreatitis, unspecified complication status, unspecified pancreatitis type (HHS-HCC); Hypertension, unspecified type Start: 12-15-2023 End: 12-15-2023 Office outpatient visit 25 minutes Dexter Daniel MD Work Phone: [facility] Comment on above: Fatty liver (Primary Dx); Elevated uric acid in blood; DM type 2 with diabetic mixed hyperlipidemia (Multi); Gout, unspecified cause, unspecified chronicity, unspecified site; Alcohol abuse; GERD without esophagitis; Primary hypertension; Hypertension, unspecified type Start: 12-15-2023 End: 12-15-2023 [facility] Start: 12-11-2023 End: 12-11-2023 Subsequent hospital visit by physician [address] Comment on above: Abdominal pain, unsp ecified abdominal location Chronic kidney disea se, unspecified CKD stage Start: 12-11-2023 End: 12-11-2023 ambulatory [facility] Start: 12-08-2023 End: 12-08-2023 Periodic preventive med est patient 18-39 yrs Dexter Daniel MD Work Phone: [facility] Comment on above: Annual visit for [facility] adult medical examination with abnormal findings (Primary Dx); Chronic kidney disease, unspecified CKD stage; Abdominal pain, unspecified abdominal location; 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 Paul Ontiveros Work Phone: [facility]Emergency Department Work Phone: Start: 08-15-2023 End: 08-15-[address] Paul Ontiveros Work Phone: [facility] Work Phone: Start: 06-09-2023 End: 06-09-2023 Office outpatient visit 25 minutes Dexter Daniel MD Work Phone: [facility] Comment on above: Alcohol abuse (Prima ry Dx); Fatigue due to depression; 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); Current mild episode of major depressive disorder without prior episode (CMS/HCC); Hypertension, unspecified type; DM type 2 with diabetic mixed hyperlipidemia ([facility]/HCC); Abdominal pain, unspecified abdominal location; GERD without esophagitis Start: 06-09-2023 End: 06-09-2023 ambulatory [facility] Start: 03-23-2023 Non-patient / Non-visit Dr. Francisco Cornell Work Phone: [facility] Work Phone: Start: 03-22-2023 Non-patient / Non-visit Dr. Francisco Cornell Work Phone: [facility] Work Phone: Start: 03-21-2023 Non-patient / Non-visit Dr. Francisco Cornell Work Phone: [facility] Work Phone: Start: 03-20-2023 End: 03-23-2023 Evaluation and management of inpatient Dr. Dafne Cornell Work Phone: [facility] Work Phone: Start: 10-22-2022 End: 12-15-2023 Patient encounter procedure Dexter Daniel MD Work Phone: [facility] Work Phone: Start: 10-22-2022 End: 10-22-2022 Periodic preventive med est patient 18-39 yrs Dexter Daniel MD Work Phone: [facility] Comment on above: Annual visit for [facility] adult medical examination with abnormal findings (Primary Dx); 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); Current mild episode of major depressive disorder without prior episode (CMS/HCC); Hypertension, unspecified type; DM type 2 with diabetic mixed hyperlipidemia ([facility]/HCC); GERD without esophagitis Start: 07-22-2022 Office outpatient vi sit 25 minutes Dexter Daniel Work Phone: [facility] Work Phone: Start: 07-16-2022 Non-patient / Non-visit Dr. Cheryl Patel Work Phone: [facility] Start: 07-15-2022 Non-patient / Non-visit Dr. Cheryl Patel Work Phone: [facility] Start: 07-15-2022 End: 07-16-2022 Evaluation and management of inpatient Dr. Lavell Patel Work Phone: [facility]Intensive [facility] Unit Start: 07-03-2022 End: 07-03-2022 Emergency department patient visit Dr. Lavell Patel Work Phone: [facility]Emergency Department Start: 06-20-2022 Non-patient / Non-visit Dr. Cheryl Patel Work Phone: [facility] Start: 06-19-2022 Non-patient / Non-visit Dr. Cheryl Patel Work Phone: [facility] Start: 06-18-2022 Non-patient / Non-visit Dr. Cheryl Patel Work Phone: [facility] Start: 06-17-2022 Non-patient / Non-visit Dr. Cheryl Patel Work Phone: [facility] Start: 06-17-2022 End: 06-20-2022 Evaluation and management of inpatient [facility]. Paul [facility] Start: 06-06-2022 Office outpatient vi sit 25 minutes Dexter Daniel Work Phone: [facility] Work Phone: Start: 06-01-2022 End: 06-01-2022 Emergency department patient visit Dr. Paul [facility] Start: 05-29-2022 End: 05-29-[address] Paul Ontiveros Work Phone: [facility] Start: 05-03-2022 End: 05-03-2022 Emergency department patient visit [facility] Start: 01-29-2022 End: 01-29-2022 Emergency department patient visit Dr. Yrn Pollock Work Phone: [facility]Emergency Department Start: 11-14-2021 End: 11-14-[address] Yrn Pollock Work Phone: [facility] Start: 09-27-2021 Non-patient / Non-visit Dr. Carrillo Kennedy Work Phone: [facility] Start: 09-26-2021 Non-patient / Non-visit Dr. Carrillo Kennedy Work Phone: [facility] Start: 09-25-2021 End: 09-27-2021 Evaluation and management of inpatient [facility]Intensive [facility] Unit Start: 07-27-2021 Chart Update Dexter gutierrez Work Phone: [facility] Work Phone: Start: 07-26-2021 Office outpatient vi sit 25 minutes Dexter Daniel Work Phone: [facility] Work Phone: Start: 06-11-2021 Office outpatient ne w 30 minutes Dexter Daniel Work Phone: [facility] Work Phone: Start: 02-10-2018 End: 02-11-2018 Patient encounter DEFAULT PHYSICIAN Facility:[facility] Start: 09-02-2017 Ambulatory SILVIA HASSHAYNE [...] 2) Zoster Vacc stephanie (1 of 2) [facility] Start: 06-09-2028 Cyanocobalamin vitam in b-12 Vitamin B-12 [facility] Start: 05-09-2025 ambulatory Ambulatory Facility:[facility] Start: 03-01-2025 Lipid panel Lipid Panel [facility] Start: 03-01-2025 Thyroid stimulating hormone measurement TSH Level [facility] Start: 02-07-2025 [facility] Start: 12-08-2024 Yearly Adult Physical Yearly Adult P hysical [facility] Start: 12-07-2024 Diabetic foot examination Diabetes: Foot Exam [facility] Start: 06-09-2024 Diabetic foot examination Diabetes: Foot Exam [facility] Start: 06-09-2024 Lipid panel Lipid Panel [facility] Start: 06-09-2024 Urine screening for protein Diabetes: Urine Protein Screening [facility] Start: 06-01-2024 Hemoglobin A1c measurement Diabetes: Hemoglobin A1C [facility] Start: 03-16-2024 End: 03-16-2024 Patient encounter procedure 03/16/2024 4:30 PM EDT Office Visit [facility] [address] [place] [phone] Dexter Daniel MD [address] [place] [address] [facility] Start: 03-07-2024 Glaucoma screening Diabetes: R etinopathy Screening [facility] Start: 01-25-2024 Influenza vaccination Influenza Vacc ine (#1) [facility] Start: 01-05-2024 End: 01-05-2024 Patient encounter procedure 01/05/2024 3:00 PM EDT Office Visit [facility] [address] [phone] Dexter Daniel MD [address] [place] [address] [facility] Start: 12-15-2023 End: 12-14-2024 Comprehensive metabolic 2000 panel - Serum or Plasma Comprehensive Metabolic Panel Lab Routine Fatty liver Expected: 12/15/2023 (Approximate), Expires: 12/14/2024 [facility] Service Area Work Phone: Comment on above: Expected: 12/15/2023 (Approximate), Expires: 12/14/2024 Start: 12-15-2023 End: 12-14-2024 Urate [Mass/volume] in Serum or Plasma Uric Acid Lab Routine Fatty liver Expected: 12/15/2023 (Approximate), Expires: 12/14/2024 [facility] Work Phone: Comment on above: Expected: 12/15/2023 (Approximate), Expires: 12/14/2024 Start: 12-15-2023 End: 12-15-2023 Patient encounter procedure 12/15/2023 9:45 AM EDT Office Visit [facility] [address] [phone] Dexter Daniel MD [address] [place], [place] [id number] [facility] Start: 12-08-2023 End: 12-07-2024 CBC [...] Alcohol abuse Expected: 12/08/2023 (Approximate), Expires: 12/07/2024 [facility] Work Phone: Comment on above: Expected: 12/08/2023 [...] Alcohol abuse Expected: 12/08/2023 (Approximate), Expires: 06/09/2025 [facility] Work Phone: Comment on above: Expected: 12/08/2023 [...] Alcohol abuse Expected: 12/08/2023 (Approximate), Expires: 12/07/2024 [facility] Work Phone: Comment on above: Expected: 12/08/2023 [...] Alcohol abuse Expected: 12/08/2023 (Approximate), Expires: 12/07/2024 [facility] Service Area Work Phone: Comment on above: Expected: 12/08/2023 (Approximate), Expires: 12/07/2024 Start: 12-08-2023 End: 12-07-2024 Lipid 1996 panel - Serum or Plasma Lipid Panel Lab Routine Chronic kidney disease, unspecified CKD stage Abdominal pain, unspecified abdominal location 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) Current mild episode of major depressive disorder without prior episode ([facility]-HCC) DM type 2 with diabetic mixed hyperlipidemia (Multi) Alcohol abuse Expected: 12/08/2023 (Approximate), Expires: 12/07/2024 [facility] Work Phone: Comment on above: Expected: 12/08/2023 (Approximate), Expires: 12/07/2024 Start: 12-08-2023 End: 12-07-2024 Microalbumin/Creatinine [Mass Ratio] in Urine Albumin-Creatinine Ratio, Urine Random Lab Routine Chronic kidney disease, unspecified CKD stage Abdominal pain, unspecified abdominal location 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) Current mild episode of major depressive disorder without prior episode ([facility]-HCC) DM type 2 with diabetic mixed hyperlipidemia (Multi) Alcohol abuse Expected: 12/08/2023 (Approximate), Expires: 12/07/2024 [facility] Work Phone: Comment on above: Expected: 12/08/2023 (Approximate), Expires: 12/07/2024 Start: 12-08-2023 End: 12-07-2025 Stress cardiac echo study report Echocardiogram Stress Test Stress Echocardiography Routine Chronic kidney disease, unspecified CKD stage Abdominal pain, unspecified abdominal location 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) Current mild episode of major depressive disorder without prior episode ([facility]-HCC) DM type 2 with diabetic mixed hyperlipidemia (Multi) Alcohol abuse Expected: 12/08/2023 (Approximate), Expires: 12/07/2025 [facility] Work Phone: Comment on above: Expected: 12/08/2023 [...] Alcohol abuse Expected: 12/08/2023 (Approximate), Expires: 12/07/2024 [facility] Work Phone: Comment on above: Expected: 12/08/2023 [...] Alcohol abuse Expected: 12/08/2023 (Approximate), Expires: 12/07/2024 [facility] Work Phone: Comment on above: Expected: 12/08/2023 (Approximate), Expires: 12/07/2024 Start: 12-08-2023 End: 12-07-2024 US Biliary ducts and Gallbladder US biliary system Imaging Routine Abdominal pain, unspecified abdominal location Expected: 12/08/2023, Expires: 12/07/2024 [facility] Work Phone: Comment on above: Expected: 12/08/2023 , Expires: 12/07/2024 Start: 12-08-2023 End: 12-07-2024 US Kidney - bilateral and Urinary bladder US renal complete Imaging Routine Chronic kidney disease, unspecified CKD stage Expected: 12/08/2023, Expires: 12/07/2024 [facility] Work Phone: Comment on above: Expected: 12/08/2023 , Expires: 12/07/2024 Start: 10-27-2023 End: 10-27-2023 Patient encounter procedure 10/27/2023 1:00 PM EDT Office Visit [facility] [address] [place] [phone] Dexter Daniel MD [address] [place] [address] [facility] Start: 10-24-2023 Yearly Adult Physical Yearly Adult P hysical [facility] Start: 09-08-2023 Hemoglobin A1c measurement Diabetes: Hemoglobin A1C [facility] Start: 09-04-2023 [place] [facility] [place] Start: 06-09-2023 End: 06-09-2024 CBC W Auto Differential panel - Blood [facility] Work Phone: Comment on above: Expected: 06/09/2023 (Approximate), Expires: 06/09/2024 Start: 06-09-2023 End: 06-09-2024 Cobalamin (Vitamin B12) [Mass/volume] in Serum or Plasma [facility] Work Phone: Comment on above: Expected: 06/09/2023 (Approximate), Expires: 06/09/2024 Start: 06-09-2023 End: 06-09-2024 Comprehensive metabolic 2000 panel - Serum or Plasma [facility] Work Phone: Comment on above: Expected: 06/09/2023 (Approximate), Expires: 06/09/2024 Start: 06-09-2023 End: 06-09-2024 Drugs of abuse screen W Reflex confirm panel - Urine [facility] Work Phone: Comment on above: Expected: 06/09/2023 (Approximate), Expires: 06/09/2024 Start: 06-09-2023 End: 06-09-2024 Hemoglobin A1c/Hemoglobin.total in Blood [facility] Work Phone: Comment on above: Expected: 06/09/2023 (Approximate), Expires: 06/09/2024 Start: 06-09-2023 End: 06-09-2024 Hepatitis C virus Ab [Presence] in Serum [facility] Work Phone: Comment on above: Expected: 06/09/2023 (Approximate), Expires: 06/09/2024 Start: 06-09-2023 End: 06-09-2024 HIV 1+2 Ab+HIV1 p24 Ag [Presence] in Serum or Plasma by Immunoassay [facility] Service Area Work Phone: Comment on above: Expected: 06/09/2023 (Approximate), Expires: 06/09/2024 Start: 06-09-2023 End: 06-09-2024 Iron and Iron binding capacity panel - Serum or Plasma [facility] Work Phone: Comment on above: Expected: 06/09/2023 (Approximate), Expires: 06/09/2024 Start: 06-09-2023 End: 06-09-2024 Lipid 1996 panel - Serum or Plasma [facility] Work Phone: Comment on above: Expected: 06/09/2023 (Approximate), Expires: 06/09/2024 Start: 06-09-2023 End: 06-09-2024 Magnesium [Mass/volume] in Serum or Plasma [facility] Work Phone: Comment on above: Expected: 06/09/2023 (Approximate), Expires: 06/09/2024 Start: 06-09-2023 End: 06-09-2024 Microalbumin/Creatinine [Mass Ratio] in Urine [facility] Work Phone: Comment on above: Expected: 06/09/2023 (Approximate), Expires: 06/09/2024 Start: 06-09-2023 End: 06-09-2024 Testosterone, total and free [facility] Work Phone: Comment on above: Expected: 06/09/2023 (Approximate), Expires: 06/09/2024 Start: 06-09-2023 End: 06-09-2024 TSH with reflex to Free T4 if abnormal [facility] Work Phone: Comment on above: Expected: 06/09/2023 (Approximate), Expires: 06/09/2024 Start: 06-09-2023 End: 06-09-2024 Urate [Mass/volume] in Serum or Plasma [facility] Work Phone: Comment on above: Expected: 06/09/2023 (Approximate), Expires: 06/09/2024 Start: 06-09-2023 End: 06-09-2024 Urinalysis microscopic panel - Urine Qualitative by Automated [facility] Work Phone: Comment on above: Expected: 06/09/2023 (Approximate), Expires: 06/09/2024 Start: 06-09-2023 End: 06-09-2024 US Biliary ducts and Gallbladder US biliary system Imaging Routine Abdominal pain, unspecified abdominal location Expected: 06/09/2023, Expires: 06/09/2024 [facility] Work Phone: Comment on above: Expected: 06/09/2023 , Expires: 06/09/2024 Start: 03-23-2023 Patient discharge [facility] Start: 03-20-2023 [facility] Start: 03-20-2023 Following clinical pathway protocol [facility] Start: 03-20-2023 Assessment of risk o f venous thromboembolism [facility] Start: 03-20-2023 Care regimes management [facility] Start: 03-20-2023 Insertion of cathete r into peripheral vein [facility] Start: 03-20-2023 Notification of physician [facility] Start: 03-20-2023 Providing care accor ding to standard [facility] Start: 03-20-2023 Referral to service [facility] Start: 03-20-2023 [facility] Start: 03-20-2023 Verification routine [facility] Start: 03-20-2023 Admission procedure [facility] Start: 01-24-2023 Influenza vaccination [facility] Start: 11-28-2022 End: 11-28-2022 Patient encounter procedure 11/28/2022 1:45 PM EDT Office Visit [facility] [address] [place] [address] Dexter Daniel MD [address] [place] [address] [facility] Start: 10-22-2022 End: 10-23-2023 CBC W Auto Differential panel - Blood CBC and Auto Differential Lab Routine Annual visit for general adult medical examination with abnormal findings 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) Expected: 10/22/2022 (Approximate), Expires: 10/23/2023 [facility] Work Phone: Comment on above: Expected: 10/22/2022 (Approximate), Expires: 10/23/2023 Start: 10-22-2022 End: 10-23-2023 Comprehensive metabolic 2000 panel - Serum or Plasma Comprehensive Metabolic Panel Lab Routine Annual visit for general adult medical examination with abnormal findings 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) Expected: 10/22/2022 (Approximate), Expires: 10/23/2023 [facility] Work Phone: Comment on above: Expected: 10/22/2022 (Approximate), Expires: 10/23/2023 Start: 10-22-2022 End: 10-23-2023 Hemoglobin A1c/Hemoglobin.total in Blood Hemoglobin A1C Lab Routine Annual visit for general adult medical examination with abnormal findings 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) Expected: 10/22/2022 (Approximate), Expires: 10/23/2023 [facility] Work Phone: Comment on above: Expected: 10/22/2022 (Approximate), Expires: 10/23/2023 Start: 10-22-2022 End: 10-23-2023 Lipid 1996 panel - Serum or Plasma Lipid Panel Lab Routine Annual visit for general adult medical examination with abnormal findings 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) Expected: 10/22/2022 (Approximate), Expires: 10/23/2023 [facility] Work Phone: Comment on above: Expected: 10/22/2022 (Approximate), Expires: 10/23/2023 Start: 10-22-2022 End: 10-23-2023 Microalbumin/Creatinine [Mass Ratio] in Urine Albumin , Urine Random Lab Routine Annual visit for general adult medical examination with abnormal findings 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) Expected: 10/22/2022 (Approximate), Expires: 10/23/2023 [facility] Service Area Work Phone: Comment on above: Expected: 10/22/2022 (Approximate), Expires: 10/23/2023 Start: 07-26-2022 Lipid panel Lipid Panel [facility] Start: 07-26-2022 Urine screening for protein Diabetes: Urine Protein Screening [facility] Start: 07-22-2022 FUV, Provider: Dexter Daniel, Status: Pen, Time: 4:45 PM FUV, Provider: Dexter Daniel, Status: Pen, Time: 4:45 PM [facility] Work Phone: Start: 07-17-2022 Blood chemistry [facility] Start: 07-16-2022 Blood chemistry [facility] Start: 07-16-2022 Blood chemistry [facility] Start: 07-16-2022 Blood chemistry [facility] Start: 07-16-2022 Patient discharge [facility] Start: 07-16-2022 Blood chemistry [facility] Start: 07-16-2022 [facility] Start: 07-16-2022 Application of intermittent pneumatic compression device [facility] Start: 07-16-2022 Assessment of risk o f venous thromboembolism [facility] Start: 07-16-2022 Continuous pulse oximetry [facility] Start: 07-16-2022 End: 07-16-2022 Following clinical pathway protocol [facility] Start: 07-16-2022 Insertion of cathete r into peripheral vein [facility] Start: 07-16-2022 Lab findings surveillance [facility] Start: 07-16-2022 Measuring intake and output [facility] Start: 07-16-2022 Notification of physician [facility] Start: 07-16-2022 Patient education [facility] Start: 07-16-2022 Providing care accor ding to standard [facility] Start: 07-16-2022 Vital signs measurements [facility] Start: 07-16-2022 End: 07-16-2022 [facility] Start: 07-16-2022 Patient referral to dietitian [facility] Start: 07-15-2022 Verification routine [facility] Start: 07-15-2022 Admission procedure [facility] Start: 07-15-2022 [facility] Start: 06-20-2022 Patient discharge [facility] Start: 06-17-2022 Assessment of risk o f venous thromboembolism [facility] Start: 06-17-2022 Care regimes management [facility] Start: 06-17-2022 Catheterization of vein [facility] Start: 06-17-2022 Insertion of cathete r into peripheral vein [facility] Start: 06-17-2022 Providing care accor ding to standard [facility] Start: 06-17-2022 Referral to service [facility] Start: 06-17-2022 End: 06-17-2022 [facility] Start: 06-17-2022 Following clinical pathway protocol [facility] Start: 06-17-2022 Verification routine [facility] Start: 06-17-2022 Admission procedure [facility] Start: 01-29-2022 Blood chemistry [facility] Work Phone: Start: 10-26-2021 Hemoglobin A1c measurement Diabetes: Hemoglobin A1C [facility] Start: 09-25-2021 Bacteria identified in Blood by Culture Blood Culture [facility] Work Phone: Start: 09-25-2021 Respiratory Panel (PCR) Respiratory Panel (PCR) [facility] Work Phone: Start: 10-05-2020 COVID-19 Vaccine (3 - Booster for Pfizer series) COVID-19 Vaccine (3 - Booster for Pfizer series) [facility] Start: 10-05-2020 COVID-19 Vaccine (3 - Pfizer series) COVID-19 Vaccine (3 - Pfizer series) [facility] Start: 02-27-2019 DTaP/Tdap/Td Vaccine s (7 - Td or Tdap) DTaP/Tdap/Td Vaccines (7 - Td or Tdap) [facility] Start: 2014 Hepatitis C screening Hepatitis C Sc yelena [facility] Start: 02-27-2010 Pneumococcal Vaccine : Pediatrics (0 to 5 Years) and At-Risk Patients (6 to 64 Years) (2 - PCV) Pneumococcal Vaccine: Pediatrics (0 to 5 Years) and At-Risk Patients (6 to 64 Years) (2 - PCV) [facility] Start: 2007 HPV Vaccines (1 - Ma le 2-dose series) HPV Vaccines (1 - Male 2-dose series) [facility] Start: 2006 Diabetic foot examination Diabetes: Foot Exam [facility] Start: 2006 Ophthalmic examinati on and evaluation Diabetes: Retinopathy Screening [facility] Start: 04-02-2002 Varicella vaccination Varicell a Vaccines (1 of 2 - 2-dose childhood series) [facility] Start: 1996 Diabetes: Celiac Dis ease Screening Diabetes: Celiac Disease Screening [facility] Start: 1996 HIV screening HIV Screening [facility] Anion gap measurement [facility] Work Phone: Anion gap measurement [facility] Anion gap measurement [facility] Anion gap measurement [facility] Anion gap measurement [facility] Anion gap measurement [facility] Bilirubin measuremen t, urine [facility] BUN/Creatinine ratio [facility] Work Phone: BUN/Creatinine ratio [facility] BUN/Creatinine ratio [facility] BUN/Creatinine ratio [facility] BUN/Creatinine ratio [facility] BUN/Creatinine ratio [facility] Calcium [Mass/volume ] in Serum or Plasma [facility] Work Phone: Calcium [Mass/volume ] in Serum or Plasma [facility] Calcium [Mass/volume ] in Serum or Plasma [facility] Calcium [Mass/volume ] in Serum or Plasma [facility] Calcium [Mass/volume ] in Serum or Plasma [facility] Calcium [Mass/volume ] in Serum or Plasma [facility] Carbon dioxide, tota l [Moles/volume] in Serum or Plasma [facility] Work Phone: Carbon dioxide, tota l [Moles/volume] in Serum or Plasma [facility] Carbon dioxide, tota l [Moles/volume] in Serum or Plasma [facility] Carbon dioxide, tota l [Moles/volume] in Serum or Plasma [facility] Carbon dioxide, tota l [Moles/volume] in Serum or Plasma [facility] Carbon dioxide, tota l [Moles/volume] in Serum or Plasma [facility] Chloride [Moles/volu me] in Serum or Plasma [facility] Work Phone: Chloride [Moles/volu me] in Serum or Plasma [facility] Chloride [Moles/volu me] in Serum or Plasma [facility] Chloride [Moles/volu me] in Serum or Plasma [facility] Chloride [Moles/volu me] in Serum or Plasma [facility] Chloride [Moles/volu me] in Serum or Plasma [facility] Creatinine [Moles/volume] in Serum or Plasma [facility] Work Phone: Creatinine [Moles/volume] in Serum or Plasma [facility] Creatinine [Moles/volume] in Serum or Plasma [facility] Creatinine [Moles/volume] in Serum or Plasma [facility] Creatinine [Moles/volume] in Serum or Plasma [facility] Creatinine [Moles/volume] in Serum or Plasma [facility] Electrocardiogram, 12-lead PRN ACS symptoms Electrocardiogram, 12-lead PRN ACS symptoms ECG Routine As needed until discontinued starting 03/01/2024 [facility] Service Area Work Phone: Comment on above: As needed until disc ontinued starting 03/01/2024 End: 03-01-2024 Extra Urine [facility] Extra Urine [facility] Lab Timed Once for 1 Occurrences starting 03/01/2024 until 03/01/2024 [facility] Work Phone: Comment on above: Once for 1 Occurrenc es starting 03/01/2024 until 03/01/2024 Glucose [Mass/volume ] in Serum or Plasma [facility] Work Phone: Glucose [Mass/volume ] in Serum or Plasma [facility] Glucose [Mass/volume ] in Serum or Plasma [facility] Glucose [Mass/volume ] in Serum or Plasma [facility] Glucose [Mass/volume ] in Serum or Plasma [facility] Glucose [Mass/volume ] in Serum or Plasma [facility] End: 03-04-2024 Glucose [Mass/volume] in Serum or Plasma POCT Glucose Point of Care Testing - Docked Device Routine 4 times daily before meals and at bedtime for 3 Days starting 03/01/2024 until 03/04/2024, 3 completed [facility] Work Phone: Comment on above: 4 times daily before meals and at bedtime for 3 Days starting 03/01/2024 until 03/04/2024, 3 completed Hematocrit [Volume Fraction] of Blood [facility] Hemoglobin [Mass/vol ume] in Blood [facility] Hemoglobin [Presence ] in Urine [facility] Leukocytes [#/volume ] in Blood [facility] Mean corpuscular hemoglobin concentration determination [facility] Mean corpuscular hemoglobin determination [facility] Measurement of keton es in urine using dipstick [facility] Measurement of renal function [facility] Work Phone: Measurement of renal function [facility] Measurement of renal function [facility] Measurement of renal function [facility] Measurement of renal function [facility] Measurement of renal function [facility] Microscopic urinalysis [facility] Neutrophil count [facility] Neutrophil percent differential count [facility] Patient Education [facility] Work Phone: Patient referral [facility] Work Phone: pH of Urine [facility] Platelets [#/volume] in Blood [facility] Potassium [Moles/vol ume] in Serum or Plasma [facility] Work Phone: Potassium [Moles/vol ume] in Serum or Plasma [facility] Potassium [Moles/vol ume] in Serum or Plasma [facility] Potassium [Moles/vol ume] in Serum or Plasma [facility] Potassium [Moles/vol ume] in Serum or Plasma [facility] Potassium [Moles/vol ume] in Serum or Plasma [facility] Red blood cell count [facility] Red cell distributio n width determination [facility] Sodium [Moles/volume ] in Serum or Plasma [facility] Work Phone: Sodium [Moles/volume ] in Serum or Plasma [facility] Sodium [Moles/volume ] in Serum or Plasma [facility] Sodium [Moles/volume ] in Serum or Plasma [facility] Sodium [Moles/volume ] in Serum or Plasma [facility] Sodium [Moles/volume ] in Serum or Plasma [facility] Specific gravity of Urine [facility] Urea nitrogen [Mass/volume] in Serum or Plasma [facility] Work Phone: Urea nitrogen [Mass/volume] in Serum or Plasma [facility] Urea nitrogen [Mass/volume] in Serum or Plasma [facility] Urea nitrogen [Mass/volume] in Serum or Plasma [facility] Urea nitrogen [Mass/volume] in Serum or Plasma [facility] Urea nitrogen [Mass/volume] in Serum or Plasma [facility] End: 03-01-2024 Urinalysis complete W Reflex Culture panel - Urine [facility] Service Area Work Phone: Comment on above: STAT (Lab) for 1 Occ urrences starting 03/01/2024 until 03/01/2024 Urinalysis, blood, qualitative [facility] Urine dipstick for glucose [facility] Urine dipstick for leukocyte esterase [facility] Urine dipstick for nitrite [facility] Urine dipstick for protein [facility] Urine examination [facility] Urine microscopy: epithelial cells [facility] Urine Microscopy: wh ite cells [facility] Urobilinogen [Presen ce] in Urine [facility] End: 12-11-2023 US Biliary ducts and Gallbladder [facility] Service Area Work Phone: Comment on above: Once for 1 Occurrenc es starting 12/11/2023 until 12/11/2023 End: 12-11-2023 US Kidney - bilateral and Urinary bladder [facility] Service Area Work Phone: Comment on above: Once for 1 Occurrenc es starting 12/11/2023 until 12/11/2023 Immunizations Immunization Date Immunization Notes Care Provider Juan Daniel nieves 02-10-2021 Covid (Pfizer) Dr. Sachin Kennedy Work Phone: [facility] 01-10-2021 Covid (Pfizer) Dr. Sachin Kennedy Work Phone: [facility] 08-10-2020 Pfizer-BioNTech COVI D-19 Vacc 30 MCG/0.3ML Intramuscular Suspension Valji D Munjapara Work Phone: [facility] 07-20-2020 Pfizer-BioNTech COVI D-19 Vacc 30 MCG/0.3ML Intramuscular Suspension Valji D Munjapara Work Phone: [facility] 05-22-2015 influenza, injectabl e, quadrivalent, preservative free Valji D Munjapara Work Phone: [facility] Work Phone: 05-22-2015 influenza virus vacc ine, unspecified formulation Dexter Daniel MD Work Phone: [facility] Work Phone: 03-08-2014 influenza, injectabl e, quadrivalent, preservative free Valji D Kamalajapara Work Phone: [facility] Work Phone: 03-30-2013 influenza, injectabl e, quadrivalent, contains preservative Dexter Daniel MD Work Phone: [facility] Work Phone: 03-30-2013 influenza, injectabl e, quadrivalent, preservative free Dr. Dafne Cornell Work Phone: [facility] 03-30-2013 influenza, seasonal, injectable Valji D Munjapara Work Phone: [facility] Work Phone: 05-01-2011 influenza virus vacc ine, unspecified formulation Dexter Daniel MD Work Phone: [facility] Work Phone: 02-27-2009 influenza virus vacc ine, unspecified formulation Dexter Daniel MD Work Phone: [facility] Work Phone: 02-27-2009 Meningococcal, MCV4, unspecified conjugate formulation(groups A, C, Y and W-135) Dexter Daniel MD Work Phone: [facility] Work Phone: 02-27-2009 pneumococcal polysaccharide vaccine, 23 valent Dexter Daniel MD Work Phone: [facility] Work Phone: 02-27-2009 tetanus toxoid, redu walker diphtheria toxoid, and acellular pertussis vaccine, adsorbed Dexter Daniel MD Work Phone: [facility] Work Phone: 03-05-2002 diphtheria, tetanus toxoids and pertussis vaccine Dexter Daniel MD Work Phone: [facility] Work Phone: 03-05-2002 measles, mumps and rubella virus vaccine Dexter Daniel MD Work Phone: [facility] Work Phone: 03-05-2002 poliovirus vaccine, inactivated Dexter Daniel MD Work Phone: [facility] Work Phone: 10-31-1997 diphtheria, tetanus toxoids and pertussis vaccine Dexter Daniel MD Work Phone: [facility] Work Phone: 10-31-1997 haemophilus influenz ae type b vaccine, HbOC conjugate Dexter Daniel MD Work Phone: [facility] Work Phone: 10-31-1997 measles, mumps and rubella virus vaccine Dexter Daniel MD Work Phone: [facility] Work Phone: 10-31-1997 poliovirus vaccine, inactivated Dexter Daniel MD Work Phone: [facility] Work Phone: 03-24-1997 hepatitis B vaccine, pediatric or pediatric/adolescent dosage Dexter Daniel MD Work Phone: [facility] Work Phone: 1996 diphtheria, tetanus toxoids and pertussis vaccine Dexter Daniel MD Work Phone: [facility] Work Phone: 1996 haemophilus influenz ae type b vaccine, HbOC conjugate Dexter Daniel MD Work Phone: [facility] Work Phone: 1996 diphtheria, tetanus toxoids and pertussis vaccine Dexter Daniel MD Work Phone: [facility] Work Phone: 1996 haemophilus influenz ae type b vaccine, HbOC conjugate Dexter Daniel MD Work Phone: [facility] Work Phone: 1996 poliovirus vaccine, inactivated Dexter Daniel MD Work Phone: [facility] Work Phone: 1996 diphtheria, tetanus toxoids and pertussis vaccine Dexter Daniel MD Work Phone: [facility] Work Phone: 1996 haemophilus influenz ae type b vaccine, HbOC conjugate Dexter Daniel MD Work Phone: [facility] Work Phone: 1996 hepatitis B vaccine, pediatric or pediatric/adolescent dosage Dexter Daniel MD Work Phone: [facility] Work Phone: 1996 poliovirus vaccine, inactivated Dexter Daniel MD Work Phone: [facility] Work Phone: 1996 hepatitis B vaccine, pediatric or pediatric/adolescent dosage Dexter Daniel MD Work Phone: [facility] Work Phone: Payers Date Payer Category Payer Self-pay [id number] 2022 Unknown 2009 Unknown [id number] 2009 [id number] 1996 Unknown [id number] 1996 Unknown [id number] 1996 Unknown [id number] 1996 Unknown [id number] 1996 Unknown [id number] 1996 Unknown [id number] 2.16.8 [id number] 1995 Unknown [id number] 2.16.8 [id number] 1995 Unknown [id number] 2.16.8 [id number] Unknown [id number] 2.16.8 [id number] Unknown [id number] 2.16.8 [id number] Unknown [id number] 2.16.8 [id number] Unknown [id number] 2.16.8 [id number] Unknown [id number] 2.16.8 [id number] Unknown [id number] 2.16.8 [id number] Unknown [id number] 2.16.8 [id number] Social History Date Type Detail Facility Start: 10-22-2022 End: 12-08-2023 Never smoker Never smoker [facility] Work Phone: Start: 09-25-2021 End: 09-04-2023 Tobacco smoking status HIIS Unknown if ever smoked [facility] Start: 12-29-2014 None [facility] Start: 12-29-2014 With Family [facility] Start: 12-29-2014 Non-smoker [facility] Start: 1995 Sex Assigned At Male W [facility] Start: 10-22-2022 End: 02-07-2025 Tobacco smoking status NHIS Never smoked tobacco [facility] Work Phone: Start: 10-22-2022 Tobacco use and exposure Smokeless tobacco non-user [facility] Work Phone: Start: 10-22-2022 End: 12-08-2023 Alcohol intake Ex-drinker (finding) [facility] Work Phone: Start: 10-22-2022 End: 12-08-2023 Tobacco use panel [facility] Work Phone: Start: 1995 Sex Assigned At Not on file [facility] Work Phone: Start: 10-12-2022 End: 03-01-2024 Exposure to SARS-CoV-2 (event) Not sure [facility] Start: 12-15-2023 End: 03-02-2024 Alcoholic beverage intake Current drinker of alcohol (finding) [facility] Work Phone: How often to you hav e a drink containing alcohol? Monthly or less [facility] Work Phone: How many standard drinks containing alcohol do you have on a typical day? 1 or 2 [facility] Work Phone: How often do you hav e 6 or more drinks on 1 occasion? Monthly [facility] Work Phone: Medical Equipment Procedure Code Equipment Code Equipment Origin al Text Equipment Identifier Dates check sugars 3 t imes per day (on insulin pump) [id number] Start: 10-23-2018 End: 06-09-2023 Goals Date Patient Goal Desired Activity /State Functional Status Date Assessment Result Facility 03-23-2023 Functional status Ambulates;Up ad josh [facility] Work Phone: 07-16-2022 Functional status Ambulates [facility] Work Phone: 06-20-2022 Functional status Up ad josh [facility] Work Phone: 09-27-2021 Functional status Ambulates;Up ad josh [facility] Work Phone: Mental Status Date Assessment Result Facility 01-22-2025 Cognitive function Level Of Cons ciousness Awake;Alert;Restless [facility] Work Phone: 03-23-2023 Cognitive function Voice/Name [facility] Work Phone: 06-20-2022 Cognitive function Appropriate;Cooperativ e [facility] Work Phone: 01-29-2022 Cognitive function Level Of Cons ciousness Awake;Alert [facility] Work Phone: 09-27-2021 Cognitive function Voice/Name [facility] Work Phone: 09-25-2021 Cognitive function Level Of Cons ciousness Awake;Alert [facility] Work Phone: Clinical Notes 07-28-2020 to 02-07-2025 Note Date & Type Note Facility 02-07-2025 Discharge summary [facility] 02-07-2025 Discharge summary Note Date/Time February 07, 2025 10:34pm [facility] Medical Records Department [address] [place] [address] Emergency Department Summary 02/07/25 MR#: [id number] Acct: [id number] Name: JORGE HOLLIS Rep #:[id number] : [...] type I diabetic with an insulin pump. [facility] Medical History Pancreatitis GERD (gastroesophageal reflux disease) [...] 80.1 H Lymph % (Auto) 11.0 L Clarendon % (Auto) 7.8 Eos % (Auto) 0.1 [...] 236 H Management Discussion w/another healthcare provider: Field Underwriter (reginald E[employer]) Discharge Plan Triage Chief Complaint: [...] Prednisone is just once daily. Print Language: Wallisian Disposition Disposition: Home, Self Care What to do if you have Problems For any increased pain, shortness of breath, bleeding, nausea or vomiting, chestpain, or any unexpected problems, contact your Primary Care Provider. Call [facility] ([phone]) or report to the closest Emergency Room. Call 911 if necessary. 02/07/252233 <Electronically signed by Lavell Patel MD> Cosigner Signature (if applicable): CC: Dr. Buddy Kang MD; Dr. Dexter Daniel MD ~ Signed [facility] Work Phone: 1([phone]) 839-858708-30-2025 Discharge summary [facility] Medical Records Department [address] [place] [address] Emergency Department Summary 01/22/25 MR#: [id number] Acct: [id number] Name: JORGE HOLLIS Rep #:[id number] : [...] teens. He presents with hypoglycemia and nausea. [facility] Medical History History of diabetes mellitus [...] count 7.3 with hemoglobin 14.5,hematocrit 41.6, platelet . Electrolyte panel is otherwise unremarkable except for carbon dioxide low at 14.8, sodium 144, potassium normal at 3.5, AST and ALT slightly elevated at 133 and 129 which I think is nonspecific. Lipase normal at 62 so I doubt pancreatitis. Blood glucose [id number]. 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 Return instructions to the [...] % (Auto) 59.2 Lymph % (Auto) 27.4 Clarendon % (Auto) 11.8 H Eos % (Auto) [...] (Auto) Neut % (Auto) Lymph % (Auto) Cla[place]on % (Auto) Eos % (Auto) Baso % [...] (Auto) Neut % (Auto) Lymph % (Auto) [place]on % (Auto) Eos % (Auto) Baso % [...] (Auto) Neut % (Auto) Lymph % (Auto) Cla[place]on % (Auto) Eos % (Auto) Baso % [...] without contrast. 2. Multifocal sinusitis. Reading Location: [id number] Discharge Plan Triage Chief Complaint: Hypoglycemia Other [...] shakiness, new or worsening symptoms. Print Language: Wallisian Disposition Disposition: Home, Self Care What to do if you have Problems For any increased pain, shortness of breath, bleeding, nausea or vomiting, chestpain, or any unexpected problems, contact your Primary Care Provider. Call [facility] ([phone]) or report tothe closest Emergency Room. Call 911 if necessary. 01/22/25 1841 Cosigner Signature (if applicable): CC: Dr. Dextre Daniel MD ~ Signed [facility]08-30-2025 Radiology Diagnostic study note [facility] Imaging Services [address] [place], [place] [id number] Brain/Head without Contrast MR#: [id number] Acct: [id number] Name: JORGE HOLLIS Rep #: [id number] : 1995 M 29 From: Ayan Lund MD PCP: Dr. Dexter Daniel MD Status: RE G ER Study:Brain/Head without Contrast Date of Exa m: 01/22/25 Exam# [id number] Ordering Dr: Ammon Nice MD PROCEDURE: BRAIN/HEAD [...] without contrast. 2. Multifocal sinusitis. Reading Location: [id number] CC: Dr. Ammon Nice MD; Dr. Dexter Daniel MD ~ Decommissioning Well Site Manager: Signed [facility] Work Phone: 1([phone]) 848-128708-30-2025 Discharge summary Author Ammon Nice [facility] Note Date/Time January 22, 2025 6: 41pm [facility] Medical Records Department [address] [place] [address] Emergency Department Summary 01/22/25 MR#: [id number] Acct: [id number] Name: BRIAN HOLLISTT DALY Rep #:[id number] [...] who states that they went to the [employer] yesterday, and the patient was able to [...] teens. He presents with hypoglycemia and nausea. [facility] Medical History History of diabetes mellitus [...] 7.3 with hemoglobin 14.5, hematocrit 41.6, platelet euoxg389. 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 Return instructions to the [...] % (Auto) 59.2 Lymph % (Auto) 27.4 Cla[place]on % (Auto) 11.8 H Eos % (Auto) [...] (Auto) Neut % (Auto) Lymph % (Auto) [place]on % (Auto) Eos % (Auto) Baso % [...] (Auto) Neut % (Auto) Lymph % (Auto) [place] % (Auto) Eos % (Auto) Baso % [...] (Auto) Neut % (Auto) Lymph % (Auto) [place]on % (Auto) Eos % (Auto) Baso % [...] without contrast. 2. Multifocal sinusitis. Reading Location: [facility] Discharge Plan Triage Chief Complaint: Hypoglycemia Other [...] shakiness, new or worsening symptoms. Print Language: Wallisian Disposition Disposition: Home, Self Care What to do if you have Problems For any increased pain, shortness of breath, bleeding, nausea or vomiting, chestpain, or any unexpected problems, contact your Primary Care Provider. Call [facility] ([phone]) or report to the closest Emergency Room. Call 911 if necessary. 01/22/25 1841 <Electronically signed by Ammon Nice MD> Cosigner Signature (if applicable): CC: Dr. Dexter Daniel MD ~ Signed [facility] Work Phone: [phone]) 447-628410-08-2024 Nurse Note* Esther Pablo RN - 03/02/2024 [...] a good handle on it. Tiera RN [facility]10-08-2024 Nurse Note* Esther Pablo RN - 03/02/2024 [...] on it. Tiera RN [facility] Work Phone: [phone] 381-888410-08-2024 History of Present illness Narrative* Eric Kennedy, [...] Additional Notes (if applicable): Patient's pharmacy is [facility] in [place], [place] Eric Kennedy PharmD * Tavon Stevenson RRT - 03/01/2024 6:51 PM EDT VBG results reported to the physician: 7.34/22/49/11.9 documented in this [facility] Work Phone: [phone]) 118-998810-07-2024 History and physical note* Dafne Ramos MD [...] home lotrel, toprol, crestor Dafne Ramos MD [facility] Work Phone: [phone]) 541-689410-07-2024 History and physical note* Dafne Ramos MD [...] crestor Dafne Ramos MD [facility] Work Phone: [phone]) 569-840207-22-2024 Evaluation + Plan note* Assessment & Plan [...] be reviewed by me. Uncontrolled BP has alf consequences including heart failure, myocardial infarction, accelerated atherosclerosis and kidney dysfunction. Therapy reviewed and explained. [facility] Work Phone: [phone]) 481-317007-22-2024 Miscellaneous Notes* Assessment & Plan Note - [...] be reviewed by me. Uncontrolled BP has predatory animal exterminator consequences including heart failure, myocardial infarction, accelerated [...] acid less than 6 documented [facility] Work Phone: [phone]) 370-601807-22-2024 Evaluation + Plan note* Assessment & Plan Note - Dexter Daniel MD - 12/15/2023 10:23 AM EDTAssociated Problem(s): DM type 2 with diabetic mixed hyperlipidemia (Multi) Low-fat diet [facility] Work Phone: [phone]) [phone] Evaluation + Plan note* Assessment & Plan Note - Dexter Daniel MD - 12/15/2023 10:23 AM EDTAssociated Problem(s): GERD without esophagitis Advised OTC Prilosec [facility] Work Phone: [phone] Evaluation + Plan note* Assessment & Plan Note - Dexter Daniel MD - 12/15/2023 10:23 AM EDTAssociated Problem(s): Alcohol abuse Alcoholic liver problem advised B12 folic acid thiamine join AA group cut down or stop alcohol [facility] Work Phone: [phone] Evaluation + Plan note* Assessment & Plan Note - Dexter Daniel MD - 12/15/2023 10:23 AM EDTAssociated Problem(s): Gout Drink more water cut down protein and salt given allopurinol 300 mg a day recheck uric acid in 4 weeks keep uric acid less than 6 [facility] Work Phone: [phone]) 417-299207-22-2024 History of Present illness Narrative* Dexter Daniel [...] be reviewed by me. Uncontrolled BP has alf consequences including heart failure, myocardial infarction, accelerated [...] pm INDICATION: Signs/Symptoms:ckd. COMPARISON: None. ACCESSION NUMBER(S): [id number] ORDERING CLINICIAN: DEXTER DANIELS: Grayscale and color [...] by: Mukesh Paredes 12/12/2023 9:44 PM Dictation workstation:[id number] US biliary system Result Date: 12/12/2023 Interpreted By: Mukesh Paredes, STUDY: US BILIARY SYSTEM 12/11/2023 3:51 pm INDICATION: 28 y/o M with Signs/Symptoms:liver pain. COMPARISON: None. ACCESSION NUMBER(S): [id number] ORDERING CLINICIAN: DEXTER DANIEL TECHNIQUE: Routine ultrasound [...] Mukesh Paredes 12/12/2023 5:59 PM Dictation workstation: [id number] Charting was completed using voice recognition technology and may include unintended errors. documented in this [facility] Work Phone: 1(232) 222-577407-15-2024 Evaluation + Plan note* Assessment & Plan Note - Dexter Daniel MD - 12/08/2023 2:40 PM EDTAssociated Problem(s): Current mild episode of major depressive disorder without prior episode (CMS- HCC) Not suicidal PHQ less than 4 [facility] Work Phone: [phone]) 113-836707-15-2024 Miscellaneous Notes* Assessment & Plan Note - Dexter Daniel MD - 12/08/2023 2:40 PM EDTAssociated Problem(s): Current mild episode of major depressive disorder without prior episode (CMS-HCC) Not suicidal PHQ less than 4 * Assessment & Plan Note - Dexter Daneil MD - 12/08/2023 2:39 PM EDT Associated [...] lipid once a year documented [facility] Work Phone: [phone] Evaluation + Plan note* Assessment & Plan Note - Dexter Daniel MD - 12/08/2023 2:39 PM EDTAssociated Problem(s): Alcohol abuse Get ultrasound of the gallbladder liver pancreas and kidney given B12 folic acid thiamine Pepcid and follow-up [facility] Work Phone: [phone]) 269-424307-15-2024 Evaluation + Plan note* Assessment & Plan Note - Dexter Daniel MD - 12/08/2023 2:39 PM EDTAssociated Problem(s): Abdominal pain Father had colon cancer personal history of anemia with abdominal pain refer to GI Dr. Vidal for EGD colonoscopy [facility] Work Phone: [phone]) [phone] Evaluation + Plan note* Assessment & Plan Note - Dexter Daniel MD - 12/08/2023 2:39 PM EDTAssociated Problem(s): Hypertension Advise get her Lotrel 5/40 a day plus Toprol 25 mg a day follow-up 2 weeks [facility] Work Phone: [phone] 126-205707-15-2024 Evaluation + Plan note* Assessment & Plan Note - Dexter Daniel MD - 12/08/2023 2:38 PM EDTAssociated Problem(s): DM type 2 with diabetic mixed hyperlipidemia (Multi) CMP CPK lipid once a year [facility] Work Phone: [phone]) 373-645107-15-2024 History of Present illness Narrative* Dexter Daniel [...] of major depressive disorder without prior episode ([facility]) Not suicidal PHQ less than 4 Relevant [...] may include unintended errors. documented in this [facility] Work Phone: [phone]) [phone] Discharge summary Author Lavell Patel [facility] September 04, 2023 10:53am Note Date/Time September 04, 2023 7:5 4am [facility] Medical Records Department [address] [place] [address] Emergency Department Summary 09/04/23 MR#: [id number] Acct: [id number] Name: JORGE HOLLIS Rep #:[id number] : [...] Currently he is at 158. Denies anydyspnea. [facility] Medical History Alcohol abuse Alcohol dependence Anxiety Depression Diabetes mellitus type 1 High cholesterol History of diabetes mellitus HTN (hypertension) Presence of insulin pump Vitamin D deficiency Home Medications Dexcom G6 Newspaper Peddler (blood-glucose meter,continuous) #1 ea 11/14/21 [Rx Last [...] 43.0 L Lymph % (Auto) 45.7 H Cla[place]on % (Auto) 9.4 Eos % (Auto) 0.1 [...] pod q 72 hours (DME) Dexcom G6 Newspaper Peddler Misc See Rx Instructions .Route Qty: 1 [...] your Primary Care Provider. Call [facility] ([phone]) or report to the closest Emergency Room. Call 911 if necessary. 09/04/23 1053 <Electronically signed by Lavell Patel MD> Cosigner Signature (if applicable): CC: DEXTER DANIEL MD ~ Signed [facility] Work Phone: [phone]) [phone] Evaluation + Plan note* Assessment & Plan [...] uncontrolled DM, pt was educated and explained. [facility] Work Phone: [phone]) 565-634801-15-2024 Evaluation + Plan note* Assessment & Plan [...] effects from SSRI and SNRIs but on predatory animal exterminator, they are well tolerated. Please do not [...] helpless or isolated.Detailed discussion was carried out. [facility] Work Phone: [phone]) 172-375201-15-2024 Miscellaneous Notes* Assessment & Plan Note - [...] effects from SSRI and SNRIs but on predatory animal exterminator, they are well tolerated. Please do not [...] discussion was carried out. documented in this [facility] Work Phone: [phone]) 358-924401-15-2024 History of Present illness Narrative* Dexter Daniel [...] year Diabetes with complication advised to see fox farmer nail puller and dentist Anxiety depression refer patient to [...] effects from SSRI and SNRIs but on predatory animal exterminator, they are well tolerated. Please do not [...] April dependency program and psych Seen by fox farmer advised to follow-up with the dietitians fox farmer packer sausage and wiener and nail puller Negative for suicide Negative for jaundice Negative [...] 07/26/2021 263.5 (H) 0.0 - 30.0 ug/mg personnel arbitrator Final Creatinine, Urine 07/26/2021 99.8 20.0 - [...] may include unintended errors. documented in this [facility] Work Phone: [phone] 192-803310-28-2023 Progress note Author Colten Crystal [facility] March 22, 2023 10:10am Note Date/Time March 22, 2023 1 0:10am [facility] Medical Records Department [address] [place] [address] Progress Note - Hospitalist 03/22/23 1009 MR#: [id number] Acct: [id number] Name: JORGE HOLLIS Rep #:[id number] : 1995 27 From: Colten ovalle MD PCP: DEXTER DANIEL Status:ADM IN [facility] Subject[facility] Subjective Well, no issues overnight. CIWA [...] DVT: Ambulation Charges/Coding Visit Charges Inpatient E&M: 83747 Subs Hosp L2 03/22/23 1010 <Electronically signed by Colten Crystal MD> Cosigner Signature (if applicable): CC: ~ Signed [facility] Work Phone: [phone] Progress note Author Colten Crystal [facility] March 21, 2023 9:33am Note Date/Time March 21, 2023 9 :33am [facility] Medical Records Department [address] [place] [address] Progress Note - Hospitalist 03/21/23929 MR#: [id number] Acct: [id number] Name: JORGE HOLLIS Rep #:[id number] : 1995 From: Colten ovalle MD PCP: DEXTER DANIEL Status:ADM IN Location: [facility] CS303-8 Subjective Subjective Resting comfortably, had fairly significant [...] DVT: Ambulation Charges/Coding Visit Charges Inpatient E&M: 61617 Subs Hosp L2 03/21/23 0933 <Electronically signed by Colten Crystal MD> Cosigner Signature (if applicable): CC: ~ Signed [facility] Work Phone: [phone] 600-477410-26-2023 History and physical note Author William Bowers [facility] March 20, 2023 7:40am Note Date/Time March 20, 2023 4 :27am [facility] Medical Records Department [address] [place] [address] H&P Exam - Hospitalist 03/20/23 0424 MR#: [id number] Acct: [id number] Name: JORGE HOLLIS Rep #:[id number] : 1995 27 From: William Bowers MD PCP: DEXTER DANIEL Status:ADM IN Location: [facility] HF837-3 HPI - General General Date of Admission: [...] seizures was from alcohol withdrawal or not. [facility] Medical History Alcohol abuse Alcohol dependence [...] 09/25/21 [History Last Taken 09/23/21] Dexcom G6 Newspaper Peddler (blood-glucose meter,continuous) #1 ea 11/14/21 [Rx Last [...] 45 minutes. Charges/Coding Visit Charges Inpatient E&M: 27765 Init Hosp L2 03/20/23 0740 <Electronically signed by William Bowers MD> Cosigner Signature (if applicable): CC: Dr. William Bowers MD; DEXTER DANIEL~ Signed [facility] Work Phone: [phone]) [phone] Discharge summary Author Dafne Cornell [facility] March 20, 2023 5:29am Note Date/Time March 20, 2023 3 :04am [facility] Medical Records Department [address] [place] [address] Emergency Department Summary 03/20/23 MR#: [id number] Acct: [id number] Name: JORGE HOLLIS Rep #:[id number] : 1995 27 From: Dafne Cornell MD PCP: DEXTER DANIEL Status:ADM IN Location: [facility] JU556-7 HPI History of Present Illness Chief Complaint: [...] past that was attributed to alcohol withdrawal. [facility] Medical History Alcohol abuse Alcohol dependence [...] 09/25/21 [History Last Taken 09/23/21] Dexcom G6 Newspaper Peddler (blood-glucose meter,continuous) #1 ea 11/14/21 [Rx Last [...] pod q 72 hours (DME) Dexcom G6 Newspaper Peddler Misc See Rx Instructions .Route Qty: 1 [...] INSULIN PUMP- VARYING HOURLY BASAL RATE from 1526-5352 1.3 units 8588-1666 1.35 units 2023-1187 1.4 units Rx Instructions: PT HAS INSULIN [...] DANIEL [Other] Disposition Disposition: Acute Care Hospital [facility] What to do if you have Problems For any increased pain, shortness of breath, bleeding, nausea or vomiting, chest pain, or any unexpected problems, contact your Primary Care Provider. Call [facility] ([phone]) or report to the closest Emergency Room. Call 911 if necessary. 03/20/23528 <Electronically signed by Dafne Cornell MD> Cosigner Signature (if applicable): CC: DEXTER DANIEL ~ Signed [facility] Work Phone: [phone]) 347-903705-30-2023 Evaluation + Plan note* Assessment & Plan Note - Dexter Daniel MD - 10/22/2022 3:17 PM EDTAssociated Problem(s): Current mild episode of major depressive disorder without prior episode ([facility]) Depression is chronic and quite common and notorious mental health disorder and it is quite common and widespread, there are several therapeutics available for depression now a days. It is consideredas chemical imbalance disorder and with medications , it can be adjusted. There are side effects from SSRI and SNRIs but on alf, they are well tolerated. Please do not [...] helpless or isolated.Detailed discussion was carried out. [facility] Work Phone: [phone]) 737-689905-30-2023 Miscellaneous Notes* Assessment & Plan Note - [...] effects from SSRI and SNRIs but on alf, they are well tolerated. Please do not [...] cervical cancer screening refer patient to dentist nail puller and dietitian advised to get flu pneumonia [...] be reviewed by me. Uncontrolled BP has alf consequences including heart failure, myocardial infarction, accelerated atherosclerosis and kidney dysfunction. Therapy reviewed and explained. * Assessment & Plan Note - Dexetr Daniel MD - 10/22/2022 3:16 PM EDT [...] was educated and explained. [facility] Work Phone: [phone]) 624-637205-30-2023 Evaluation + Plan note* Assessment & Plan Note - Dexter Daniel MD - 10/22/2022 3:16 PM EDTAssociated Problem(s): Annual visit for general adult medical examination with abnormal findings 27-year-old male advised skin cancer cervical cancer screening refer patient to dentist nail puller and dietitian advised to get flu pneumonia COVID-19 vaccine [facility] Work Phone: [phone] Evaluation + Plan note* Assessment & Plan [...] be reviewed by me. Uncontrolled BP has predatory animal exterminator consequences including heart failure, myocardial infarction, accelerated atherosclerosis and kidney dysfunction. Therapy reviewed and explained. [facility] Work Phone: [phone]) [phone] Evaluation + Plan note* Assessment & Plan [...] uncontrolled DM, pt was educated and explained. [facility] Work Phone: [phone] History of Present illness Narrative* Dexter Daniel [...] be reviewed by me. Uncontrolled BP has predatory animal exterminator consequences including heart failure, myocardial infarction, accelerated atherosclerosis and kidney dysfunction. Therapy reviewed and explained. Relevant Medications ramipril (Altace) 10 mg capsule Digestive GERD without esophagitis Endocrine/Metabolic DM type 2 with diabetic mixed hyperlipidemia (CMS/HCC) Other Annual visit for general adult medical examination with abnormal findings - Primary 27-year-old male advised skin cancer cervical cancer screening refer patient to dentist nail puller and dietitian advised to get flu pneumonia [...] effects from SSRI and SNRIs but on predatory animal exterminator, they are well tolerated. Please do not [...] 07/26/2021 263.5 (H) 0.0 - 30.0 ug/mg personnel arbitrator Final Creatinine, Urine 07/26/2021 99.8 20.0 - [...] may include unintended errors. documented in this [facility] Work Phone: 1(243) 964-706002-21-[address] Hopper [facility] July 15, 2022 11:58pm Note Date/Time July 15, 2022 9:49pm [facility] Medical Records Department [address] [place] [address] Emergency Department Summary 07/15/22 MR#: [id number] Acct: [id number] Name: JORGE HOLLIS Rep #:[id number] : 1995 27 From: eJd Hopper MD PCP: NOT,DEFINED Status:ADM IN Location: [...] 09/25/21 [History Last Taken 09/23/21] Dexcom G6 Newspaper Peddler (blood-glucose meter,continuous) #1 ea 11/14/21 [Rx Last [...] 77.3 H Lymph % (Auto) 8.3 L [place] % (Auto) 12.8 H Eos % (Auto) [...] 30-74 minutes, Including time spent:,Discussing w/Patient &/or Family/Furnace Builder, Discussing w/Consultants, ArrangingAdmission or Transfer, Performing Direct Patient Care at Bedside and - (35 min) Discharge Plan Dx/Rx/DC Orders Clinical Impression: Diabetic keto-acidosis, History of diabetes mellitus, High anion gap metabolic acidosis, Acute kidney injury Disposition Disposition: Acute Care Hospital [facility] What to do if you have Problems For any increased pain, shortness of breath, bleeding, nausea or vomiting, chestpain, or any unexpected problems, contact your Primary Care Provider. Call [facility] ([phone]) or report to the closest Emergency Room. Call 911 if necessary. 07/15/22 3664 <Electronically signed by Jed Hopper MD> Cosigner Signature (if applicable): CC: DEFINED NOT ~ Signed [facility] Work Phone: 1(104) 820-190402-21-2023 History and physical note Author Dr. Cedillo [facility] July 15, 2022 11:43pm Note Date/Time July 15, 2022 11:43pm [facility] Medical Records Department [address] [place] [address] H&P Exam - Hospitalist 07/15/22 5971 MR#: [id number] Acct: [id number] Name: JORGE HOLLIS Rep #:[id number] : 1995 27 From: Teresa Cedillo MD PCP: NOT,DEFINED Status:ADM IN Location: ICU CVICU20 4-1 HPI - General General Date of Admission: 07/15/22 Date of Service: 07/15/22 HPI Narrative JORGE HOLLIS, is a 27-year-old male with history of type 1 diabetes on an insulin pump, hypertension, alcohol abuse recently here for detox, who [facility]22 feeling as though he was [...] insulin pods, hepicked up long-acting insulin from [facility] on Friday and was using that and [...] has not drank in over a week. [facility] Medical History Alcohol abuse Alcohol dependence [...] 09/25/21 [History Last Taken 09/23/21] Dexcom G6 Newspaper Peddler (blood-glucose meter,continuous) #1 ea 11/14/21 [Rx Last [...] 77.3 H, Lymph % (Auto) 8.3 L, [place] % (Auto) 12.8 H, Eos % (Auto) [...] documentation, 60minutes Charges/Coding Visit Charges Inpatient E&M: 27645 Init Hosp L2 07/15/22 2343 <Electronically signed by Teresa Cedillo MD> Cosigner Signature (if applicable): CC: DEFINED NOT; Dr. Teresa Cedillo MD~ Signed [facility] Work Phone: 1(151) 546-102702-20-[address] Hopper [facility] July 15, 2022 11:58pm Note Date/Time July 15, 2022 9:49pm [facility] Medical Records Department [address] [place], [place] [address] [address] Emergency Department Summary 07/15/22 MR#: [id number] Acct: [id number] Name: JORGE HOLLIS Rep #:[id number] : [...] Prior similar symptoms: Yes Recent Illness[facility] Medical History Alcohol abuse Alcohol dependence [...] 09/25/21 [History Last Taken 09/23/21] Dexcom G6 Newspaper Peddler (blood-glucose meter,continuous) #1 ea 11/14/21 [Rx Last [...] 77.3 H Lymph % (Auto) 8.3 L [place] % (Auto) 12.8 H Eos % (Auto) [...] 30-74 minutes, Including time spent:,Discussing w/Patient &/or Family/Furnace Builder, Discussing w/Consultants, ArrangingAdmission or Transfer, Performing Direct Patient Care at Bedside and - (35 min) Discharge Plan Dx/Rx/DC Orders Clinical Impression: Diabetic keto-acidosis, History of diabetes mellitus, High anion gap metabolic acidosis, Acute kidney injury Disposition Disposition: Acute Care Hospital [facility] What to do if you have Problems For any increased pain, shortness of breath, bleeding, nausea or vomiting, chestpain, or any unexpected problems, contact your Primary Care Provider. Call [facility] ([phone]) or report to the closest Emergency Room. Call 911 if necessary. 07/15/22 2876 <Electronically signed by Jed Hopper MD> Cosigner Signature (if applicable): CC: DEFINED NOT ~ Signed [facility] Work Phone: 1([phone]) 896-493702-08-[address] Corrales [facility] July 03, 2022 10:46pm Note Date/Time July 03, 2022 5 :54pm [facility] Medical Records Department [address] [place] [address] Emergency Department Summary 07/03/22 MR#: [id number] Acct: [id number] Name: JORGE HOLLIS Rep #:[id number] : [...] does not have any trouble swallowing orbreathing. [facility] Medical History Alcohol abuse Alcohol dependence [...] 09/25/21 [History Last Taken 09/23/21] Dexcom G6 Newspaper Peddler (blood-glucose meter,continuous) #1 ea 11/14/21 [Rx Last [...] pod q 72 hours (DME) Dexcom G6 Newspaper Peddler Misc See Rx Instructions .Route Qty: 1 [...] INSULIN PUMP- VARYING HOURLY BASAL RATE from 9271-8819 1.3 units 3377-1082 1.35 units 9231-5085 1.4 units Rx Instructions: PT HAS INSULIN [...] your Primary Care Provider. Call [facility] ([phone]) or report to the closest Emergency Room. Call 911 if necessary. 07/03/222245 <Electronically signed by Dipesh Corrales DO> Cosigner Signature (if applicable): CC: Dexter Daniel MD ~ Signed [facility] Work Phone: [phone]) [phone] Murphy [facility] June 19, 2022 2:27pm Note Date/Time June 19, 2022 2 :27pm [facility] Medical Records Department [address] [place] [address] Progress Note - Hospitalist 06/19/22 1424 MR#: [id number] Acct: [id number] Name: JORGE HOLLIS Rep #:[id number] : 1995 27 From: Osiris Murphy DO PCP: Care Physician,No Primary Status :ADM IN Location: GA3 BX503-3 Subjective Subjective Patient states he still feels [...] from 12-24 beers daily along with 4 [place]'s -Never been through detox previously -Continue phenobarbital [...] insulin -Patient's current pump rate is 1.1 vcoqgi-aec-vvyyr as he had some further issues with hypoglycemia intermittently throughout the day yesterday -Will talk to his fox farmer prior to discharge to see if we [...] -Full code Charges/Coding Visit Charges Inpatient E&M: 65113 Subs Hosp L2 06/19/22 1427 <Electronically signed by Osiris Murphy DO> Aminataer Signature (if applicable): CC: ~ Signed [facility] Work Phone: 1(105) 806-994801-24-[address] Murphy [facility] June 18, 2022 3:02pm Note Date/Time June 18, 2022 3 :02pm [facility] Medical Records Department [address] [place] [address] Progress Note - Hospitalist 06/18/22 1455 MR#: [id number] Acct: [id number] Name: JORGE HOLLIS Rep #:[id number] : 1995 27 From: Osiris Murphy DO PCP: Care Physician,No Primary Status :ADM IN Location: MS3 KU537-8 Subjective Subjective Patient states overall he is [...] from 12-24 beers daily along with 4 [place]'s -Never been through detox previously -Continue phenobarbital [...] -Full code Charges/Coding Visit Charges Inpatient E&M: 25064 Subs Hosp L2 06/18/22 1502 <Electronically signed by Osiris Murphy DO> Cosigner Signature (if applicable): CC: ~ Signed [facility] Work Phone: 1(620) 604-901401-23-2023 History and physical note Author Dr. Murphy [facility] June 17, 2022 1:52pm Note Date/Time June 17, 2022 9 :52am [facility] Medical Records Department [address] [place] [address] H&P Exam - Hospitalist 06/17/22 0951 MR#: [id number] Acct: [id number] Name: JORGE HOLLIS Rep #:[id number] : 1995 27 From: Osiris Murphy DO PCP: Care Physician,No Primary Status :ADM IN Location: [facility] BG571-7 HPI - General General Date of Admission: 06/17/22 Date of Service: 06/17/22 Chief Complaint: EtOH Detox HPI Narrative JORGE HOLLIS, is a 27 M who presented to emergency department [facility] on 06/17/2021 requesting alcohol detox. Patient reports that he has been drinking anywhere from 12-24 beers and 4 [place]'s per day for a long time. The [...] given initial dose ofphenobarbital for alcohol withdrawal. [facility] Medical History Alcohol abuse Anxiety Depression [...] 09/25/21 [History Last Taken 09/23/21] Dexcom G6 Newspaper Peddler (blood-glucose meter,continuous) #1 ea 11/14/21 [Rx Last [...] % (Auto) 52.8, Lymph % (Auto) 36.5, [place] % (Auto) 8.2, Eos % (Auto) 1.5, [...] from 12-24 beers daily along with 4 [place]'s -Never been through detox previously -Start phenobarbital [...] -Full code Charges/Coding Visit Charges Inpatient E&M: 37986 Init Hosp L3 06/17/22 1352 <Electronically signed by Osiris Murphy DO> Cosigner Signature (if applicable): CC: Dr. Osiris Murphy DO; No Primary Care Physician~ Signed [facility] Work Phone: [phone]) 656-938401-23-[address] Patel [facility] June 17, 2022 9:52am Note Date/Time June 17, 2022 8 :18am [facility] Medical Records Department [address] [place] [address] Emergency Department Summary 06/17/22 MR#: [id number] Acct: [id number] Name: TELMAJORGE DALY Rep #:[id number] : [...] issues other than the diabetes and hypertension. [facility] Medical History Depression Diabetes mellitus type 1 [...] 09/25/21 [History Last Taken 09/23/21] Dexcom G6 Newspaper Peddler (blood-glucose meter,continuous) #1 ea 11/14/21 [Rx Last [...] % (Auto) 52.8 Lymph % (Auto) 36.5 [place] % (Auto) 8.2 Eos % (Auto) 1.5 [...] (Auto) Neut % (Auto) Lymph % (Auto) [place] % (Auto) Eos % (Auto) Baso % [...] Alcohol withdrawal Disposition Disposition: Acute Care Hospital [facility] What to do if you have Problems For any increased pain, shortness of breath, bleeding, nausea or vomiting, chestpain, or any unexpected problems, contact your Primary Care Provider. Call [facility] ([phone]) or report to the closest Emergency Room. Call 911 if necessary. 06/17/22 0952 <Electronically signed by Lavell Patel MD> Cosigner Signature (if applicable): CC: No Primary Care Physician ~ Signed [facility] Work Phone: [phone]) 772-856801-23-[address] Patel [facility] June 17, 2022 9:52am Note Date/Time June 17, 2022 8 :18am [facility] Medical Records Department [address] [place] [address] Emergency Department Summary 06/17/22 MR#: [id number] Acct: [id number] Name: JORGE HOLLIS Rep #:[id number] : [...] issues other than the diabetes and hypertension. [facility] Medical History Depression Diabetes mellitus type 1 [...] 09/25/21 [History Last Taken 09/23/21] Dexcom G6 Newspaper Peddler (blood-glucose meter,continuous) #1 ea 11/14/21 [Rx Last [...] % (Auto) 52.8 Lymph % (Auto) 36.5 [place] % (Auto) 8.2 Eos % (Auto) 1.5 [...] (Auto) Neut % (Auto) Lymph % (Auto) [place] % (Auto) Eos % (Auto) Baso % [...] Alcohol withdrawal Disposition Disposition: Acute Care Hospital [facility] What to do if you have Problems For any increased pain, shortness of breath, bleeding, nausea or vomiting, chestpain, or any unexpected problems, contact your Primary Care Provider. Call [facility] ([phone]) or report to the closest Emergency Room. Call 911 if necessary. 06/17/22951 <Electronically signed by Lavell Patel MD> Cosigner Signature (if applicable): CC: No Primary Care Physician ~ Signed [facility] Work Phone: 1(661) 153-127703-05-2021 NotePatient Outreach (COVAMN) JORGE HOLLIS ([id number]) 1995 M Date Time Provider Department 07/28/20 CARINE SAVAGE During your visit today, we recorded the following information about you: Allergies As of Date: 07/28/2020 (No Known Allergies) Date Reviewed: 09/07/2019 Reviewed by: Patrick Rankin - Fully Assessed Order(s):SARS-COVID VACCINE 1ST DOSE APPT [[id number]] Order #: [id number] FUTURE Prescriptions as of 07/28/2020 Sig: INSULIN [...] 09/07/2019 Encounter Status:Closed by FELISA GREENFIELD on 07/31/20[facility] Discharge summary Author Dr. Murphy [facility] June 20, 2022 1:23pm Note Date/Time June 20, 2022 1 :08pm [facility] Medical Records Department [address] [place], [place] [address] [address] Discharge Summary 06/20/22 1306 MR#: [id number] Acct: [id number] Name: JORGE HOLLIS Rep #:[id number] : 1995 27 From: Osiris Murphy DO PCP: Care Physician,No Primary Status :ADM IN Location: [facility] MT017-2 Providers Date of Admission: 06/17/22 Date of [...] PO DAILY blood pressure 09/25/21 Dexcom G6 Newspaper Peddler (blood-glucose meter,continuous) #1 ea 11/14/21 Dexcom G6 [...] who presented to the emergency department at [facility] on 06/17/2019 2 in the morning for alcohol withdrawal. Patient reported that he is drinking for a long time. It sounds like its been 6 to 7 years. He indicated he drank anywhere from 12-24 beers daily as well as 4 [place]'s. He had never been through formal detox [...] hospitalization. I did have conversation with his fox farmer prior to discharge and she suggested we continue on his basal rate at 1.1 and have him keep track of his sugars and call them on Friday morning and let them know what his sugars had been running since discharge. He was evaluated by 180 with the plan to follow-up at [facility] at the time of discharge. He [...] pod q 72 hours (DME) Dexcom G6 Newspaper Peddler Misc See Rx Instructions .Route Qty: 1 [...] INSULIN PUMP- VARYING HOURLY BASAL RATE from 3944-1732 1.3 units 6855-9243 1.35 units 9620-0841 1.4 units Rx Instructions: PT HAS INSULIN [...] Care Physician,No Primary [Primary Care Provider] - [facility] Doctor,Out of [Non-Staff] - Disposition Disposition (needs filled in before D/C Order can be placed): Home, Self Care Charges/Coding Visit Charges Inpatient E&M: 52343 Disch Hosp >30min 06/20/22 1323 <Electronically signed by Osiris Murphy DO> Cosigner Signature (if applicable): CC: Dr. Osiris Murphy DO; No Primary Care Physician~ Signed [facility] Work Phone: Discharge summary Author Dr. Murphy [facility] July 16, 2022 11:19am Note Date/Time July 16, 2022 11:05am [facility] Medical Records Department [address] [place] [address] Discharge Summary 07/16/22 1105 MR#: [id number] Acct: [id number] Name: JORGE HOLLIS Rep #:[id number] : [...] PO DAILY blood pressure 09/25/21 Dexcom G6 Newspaper Peddler (blood-glucose meter,continuous) #1 ea 11/14/21 Dexcom G6 [...] insulin pods. [facility] and was [facility] and [...] I discussed the case with his primary fox farmer, Dr. Ontiveros, and she recommended that we [...] 77.3 H, Lymph % (Auto) 8.3 L, [place] % (Auto) 12.8 H, Eos % (Auto) [...] pod q 72 hours (DME) Dexcom G6 Newspaper Peddler Misc See Rx Instructions .Route Qty: 1 [...] INSULIN PUMP- VARYING HOURLY BASAL RATE from 8839-2583 1.3 units 0960-6172 1.35 units 7268-8724 1.4 units Rx Instructions: PT HAS INSULIN [...] Self Care Charges/Coding Visit Charges Inpatient E&M: 11010 Disch Hosp >30min 07/16/22 1119 <Electronically signed by Osiris Murphy DO> Cosigner Signature (if applicable): CC: Dr. Osiris Murphy DO~ Signed [facility] Work Phone: Discharge summary Author Colten Crystal [facility] March 23, 2023 9:15am Note Date/Time March 23, 2023 9 :13am [facility] Medical Records Department [address] [place] [address] Instructions for Home/Discharge Instructions 03/23/23912 MR#: [id number] Acct: [id number] Name: JORGE HOLLIS Rep #:[id number] : [...] pod q 72 hours (DME) Dexcom G6 Newspaper Peddler Misc See Rx Instructions .Route Qty: 1 [...] INSULIN PUMP- VARYING HOURLY BASAL RATE from 1485-8393 1.3 units 0729-1820 1.35 units 7260-6245 1.4 units Rx Instructions: PT HAS INSULIN [...] William Bowers MD; DEXTER DANIEL ~ Signed [facility] Work Phone: Discharge summary Author Colten Crystal [facility] March 23, 2023 9:22am Note Date/Time March 23, 2023 9 :20am [facility] Medical Records Department [address] [place] [address] Discharge Summary 03/23/23915 MR#: [id number] Acct: [id number] Name: JORGE HOLLIS Rep #:[id number] : 1995 27 From: Colten ovalle MD PCP: DEXTER DANIEL Status:ADM IN [facility] Date of Admission: 03/20/23 Primary Care [...] PO DAILY blood pressure 09/25/21 Dexcom G6 Newspaper Peddler (blood-glucose meter,continuous) #1 ea 11/14/21 Dexcom G6 [...] pod q 72 hours (DME) Dexcom G6 Newspaper Peddler Misc See Rx Instructions .Route Qty: 1 [...] INSULIN PUMP- VARYING HOURLY BASAL RATE from 2599-3619 1.3 units 5310-4699 1.35 units 7540-6190 1.4 units Rx Instructions: PT HAS INSULIN [...] Self Care Charges/Coding Visit Charges Inpatient E&M: 78609 Disch Hosp >30min 03/23/23921 <Electronically signed by Colten Crystal MD> Cosigner Signature (if applicable): CC: Dr. Colten Crystal MD; DEXTER DANIEL~ Signed [facility] Work Phone: Evaluation note* Diagnosis Onset Date Resolution Status Acute hyperkalemia acute Acute renal failure acute Diabetic ketoacidosis associ ated with type 1 diabetes mellitus acute DKA (diabetic ketoacidoses) acute Leukocytosis acute Sinus tachycardia acute [facility] Work Phone: Evaluation note* Diagnosis Onset Date Resolution Status HTN (hypertension) chronic [facility] Work Phone: Evaluation noteNo assessment information available [facility] Work Phone: Evaluation note* Diagnosis Onset Date Resolution Status Diabetes mellitus type 1 acu te Presence of insulin pump acu te HTN (hypertension) chronic [facility] Work Phone: Evaluation note* Diagnosis Onset Date Resolution Status Diabetes mellitus type 1 acu te Presence of insulin pump acu te HTN (hypertension) chronic Alcohol dependence acute Alcohol withdrawal acute [facility] Work Phone: Evaluation note* Diagnosis Onset Date Resolution Status Diabetes mellitus type 1 acu te Presence of insulin pump acu te HTN (hypertension) chronic Alcohol dependence acute Alcohol withdrawal acute Alcoholic hepatitis acute Dehydration acute [facility] Work Phone: Evaluation note* Diagnosis Onset Date Resolution Status Diabetes mellitus type 1 acu te Presence of insulin pump acu te HTN (hypertension) chronic Alcohol withdrawal resolved Alcoholic hepatitis resolved Dehydration resolved [facility] Work Phone: Evaluation note* Diagnosis Onset Date Resolution Status Diabetes mellitus type 1 acu te Presence of insulin pump acu te HTN (hypertension) chronic Alcohol withdrawal resolved Alcoholic hepatitis resolved Dehydration resolved Acute kidney injury acute Diabetic keto-acidosis acute High anion gap metabolic acidosis acute History of diabetes mellitus acute [facility] Work Phone: Evaluation note* Diagnosis Annual visit for general adult medical examination with abnormal findings- Primary 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) Current mild episode of major depressive disorder without prior episode (CMS/HCC) Hypertension, unspecified type DM type 2 with diabetic mixed hyperlipidemia (CMS/HCC) GERD without esophagitis Esophageal reflux documented in this encounter [facility] Work Phone: Evaluation note* Diagnosis Onset Date Resolution Status Desire for detoxification ac shikha Diabetes mellitus type 1 acu te ETOH abuse acute Presence of insulin pump acu te [facility] Work Phone: Evaluation note* Diagnosis Alcohol abuse- Primary Nondependent alcohol abuse, unspecified drinking behavior Fatigue due to depression 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) Current mild episode of major depressive disorder without prior episode (CMS/HCC) Hypertension, unspecified type DM type 2 with diabetic mixed hyperlipidemia (CMS/HCC) Abdominal pain, unspecified abdominal location GERD without esophagitis Esophageal reflux documented in this encounter [facility] Work Phone: Evaluation note* Diagnosis Onset Date Resolution Status Diabetes mellitus type 1 chr onic HTN (hypertension) chronic Presence of insulin pump chr onic [facility] Work Phone: Evaluation note* Diagnosis Annual [...] pancreatitis, unspecified complication status, unspecified pancreatitis type ([facility]) Hypertension, unspecified type documented in this encounter [facility] Work Phone: Evaluation note* Diagnosis Annual [...] esophagitis Esophageal reflux documented in this encounter [facility] Work Phone: Evaluation note* Diagnosis Annual [...] of major depressive disorder without prior episode ([facility]) Hypertension, unspecified type DM type 2 with [...] unspecified abdominal location documented in this encounter [facility] Work Phone: Evaluation note* Diagnosis Annual visit for general adult medical examination with abnormal findings- Primary 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) Current mild episode of major depressive disorder without prior episode ([facility]) Hypertension, unspecified type DM type 2 with diabetic mixed hyperlipidemia (Multi) GERD without esophagitis Esophageal reflux Alcohol abuse- Primary Nondependent alcohol abuse, unspecified drinking behavior Fatigue due to depression 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) Current mild episode of major depressive disorder without prior episode ([facility]) Hypertension, unspecified type DM type 2 with [...] unspecified CKD stage documented in this encounter [facility] Work Phone: Evaluation note* Diagnosis Annual [...] of major depressive disorder without prior episode ([facility]) Hypertension, unspecified type DM type 2 with [...] Hypertension, unspecified type documented in this encounter [facility] Work Phone: History and physical note Author Dr. Cedillo [facility] July 15, 2022 11:43pm Note Date/Time July 15, 2022 11:43pm [facility] Medical Records Department [address] [place] [address] H&P Exam - Hospitalist 07/15/22 7808 MR#: [id number] Acct: [id number] Name: JORGE HOLLIS Rep #:[id number] : 1995 27 From: Teresa Cedillo MD PCP: NOT,DEFINED Status:ADM IN Location: ICU CVICU20 4-1 HPI - General General Date of Admission: 07/15/22 Date of Service: 07/15/22 HPI Narrative JORGE HOLLIS, is a 27-year-old male with history of type 1 diabetes on an insulin pump, hypertension, alcohol abuse recently here for detox, who [facility] 07[facility]22 feeling as though he was [...] insulin pods, [facility] and was using that and [...] has not drank in over a week. [facility] Medical History Alcohol abuse Alcohol dependence [...] 09/25/21 [History Last Taken 09/23/21] Dexcom G6 Newsp[employer] Peddler (blood-glucose meter,continuous) #1 ea 11/14/21 [Rx Last [...] 77.3 H, Lymph % (Auto) 8.3 L, [place] % (Auto) 12.8 H, Eos % (Auto) [...] documentation, 60minutes Charges/Coding Visit Charges Inpatient E&M: 72418 Init Hosp L2 07/15/22 2343 <Electronically signed by Teresa Cedillo MD> Cosigner Signature (if applicable): CC: DEFINED NOT; Dr. Teresa Cedillo MD~ Signed [facility] Work Phone: History of Present illness [...] chart treatment plan discussI spent 15 minutes [id number]-wffe I spent 15 minutes htqb-ll-[id number]. This patient discussing cardiovascular risk and behavior [...] aspirin refer patient to Dr. Gabriela Lyn fox farmer and Dr. Chang nail puller [facility] Medicine Work Phone: History of Present illness [...] test follow-up in 6 to 8 weeks [facility] Work Phone: History of Present illness [...] Negative for jaundice * Negative for bleeding [facility] Work Phone: History of Present illness Narrative* 27-year-old patient of hypertension hyperlipidemia diabetes alcohol abuse multiple hospitalization because of alcohol withdrawal and detox program and a DKA * Seen by psych and fox farmer * Because of underlying mental health problem and other problem not able to function well * Negative for suicide * Negative for drug abuse * Review hospital record discussed with the patient and family and [facility] Work Phone: Hospital Discharge instructions Additional Instructions Avoid use of mirtazapine, and have your medication changed secondary to its side effects. Perform nystatin oral swish and swallow 4 times a day for the next 7 days and follow-up with your primary care provider.[facility] Work Phone: Hospital Discharge instructions* Attachments The following attachments cannot be sent through Care Everywhere. * Diabetes and diet (Wallisian) * Diabetic Ketoacidosis Discharge Instructions (Wallisian) [facility] Work Phone: Hospital Discharge instructionsAdditional Instructions Medication as directed. Bolus yourself insulin as you have done in order to control your blood sugars. Make sure that you are eating appropriately. Return with intractable nausea and vomiting, increased shakiness, new or worsening symptoms.[facility] Work Phone: Hospital Discharge instructionsAdditional Instructions Can start prescription 02/08/2025 since you received the initial dose in the ED. Prednisone is just once daily.[facility] Work Phone: Reason for referral (narrative)* Consultation (Routine) - Authorized Specialty Diagnoses / Procedures Referred By Lurdes puentes Referred To Contact Primary Care Procedures Follow Up In Primary Care Dexter Daniel MD [address] [place] [address] Referral ID Status Reason Start Date Expiration Date V isits Requested Visits Authorized [id number] Authorized 10/22/2022 04/20/2023 1 1 * Consultation (Routine) - Authorized Specialty Diagnoses / Procedures Referred By Lurdes puentes Referred To Contact Primary Care Procedures Follow Up In Primary Care Dexter Daniel MD [address] [place] [id number] Referral ID Status Reason Start Date Expiration Date V isits Requested Visits Authorized [id number] Authorized 10/22/2022 04/20/2023 1 1 [facility] Work Phone: Reason for referral (narrative)No reason for referral information availableWSelect Medical [facility] Work Phone: Summary Purpose Family History No [...] September 25, 2021 8: 30pm Power of Ethics Manager No September 25, 2021 8:30pm Advance Directive Response Recorded Date/ Time Advance Directives No December 29 015 2:43pm Living Will No January 29 022 10:12am Power of Ethics Manager No January 29, 2022 10:12am Advance Directive Response Recorded Date/ Time Advance Directives No December 29 015 1:43pm Living Will No May 03 1:29pm Power of Ethics Manager No May 03, 2022 1:29pm Advance Directive Response Recorded Date/ Time Advance Directives No December 29 015 1:43pm Living Will No June 01 2:26pm Power of Ethics Manager No June 01 023 2:26pm Advance Directive Response Recorded Date/ Time Advance Directives No December 29 015 1:43pm Living Will No June 17 7:58am Power of Ethics Manager No June 17, 2022 7:58am Advance Directive Response Recorded Date/ Time Advance Directives No December 29 015 1:43pm Living Will No June 17 11:46am Power of Ethics Manager No June 17, 2022 11:46am Advance Directive Response Recorded Date/ Time Advance Directives No December 29 1:43pm Living Will No July 03 5:50pm Power of Ethics Manager No July 03, 2022 5:50pm Advance Directive Response Recorded Date/ Time Advance Directives No December 29 015 1:43pm Living Will No July 15 023 10:09pm Power of Ethics Manager No July 15, 2022 10:09pm Advance Directive Response Recorded Date/ Time Advance Directives No December 29 015 1:43pm Living Will No July 16 12:37am Power of Ethics Manager No July 16, 2022 12:37am Advance Directive Response Recorded Date/ Time Advance Directives No December 29 2:43pm Living Will No March 20 10:28am Power of Ethics Manager No March 20, 2023 10:28am Advance Directive Response Recorded Date/ Time Advance Directives No December 29 2:43pm Living Will No September 04, 2023 8:06am Power of Ethics Manager No September 03 8:06am Date Activated Date Inactivated Comments 03/01/2024 9:28 PM Question Answer Comments Plan of Care: Code Status Discussion Completed Decision Maker: Patient Date Activated Date Inactivated Comments 03/01/2024 9:28 PM 03/01/2024 9:28 PM Question Answer Comments Plan of Care: Code Status Discussion Completed Decision Maker: Patient Advance Directive Response Recorded Date/ Time Do you have a Healthcare Power of Ethics Manager? No January 22, 2025 12:32pm Advance Directives No December 29 2:43pm Advance Directive Response Recorded Date/ Time Do you have a Healthcare Power of Ethics Manager? No January 22, 2025 12:32pm Do you have a Healthcare Power of Ethics Manager? No February 07, 2025 8:39pm Advance Directives No December 29 2:43pm Chief Complaint follow up on diabetessore throat, headaches, 2 weeks nowanxiety and depression* follow up * [facility] papers Chief Complaint and Reason for Visit [...] Procedures US biliary system Dexter Daniel MD [address] [place], [place] [id number] Referral ID Status Reason Start Date Expiration Date Visits Requested Visits Authorized [id number] Authorized Perform Procedure 06/09/2023 06/08/2024 1 1 Referral ID Status Reason Start Date Expiration Date Visits Requested Visits Authorized [id number] Authorized Perform Procedure 12/08/2023 12/07/2024 1 1 Specialty Diagnoses / Procedures Referred By Contac t Referred To Contact Radiology Diagnoses Chronic kidney disease, unspecified CKD stage Procedures US renal complete Dexter Daniel MD [address] [place], [place] [phone] Referral ID Status Reason Start Date Expiration Date Visits Requested Visits Authorized [id number] Authorized Perform Procedure 12/08/2023 12/07/2024 1 1 [...] (Multi) Alcohol abuse Procedures Echocardiogram Stress Test [place] ECHO TTHRC R-T 2D W/WO M-MODE COMPLETE REST&ST Dexter Daniel MD [address] [place], [place] [id number] Referral ID Status Reason Start Date Expiration Date Visits Requested Visits Authorized [id number] Pending Review Perform Procedure 12/08/2023 12/07/2024 1 [...] abuse Procedures Colonoscopy Screening; Average Risk Patient [place] COLONOSCOPY FLX DX W/COLLJ SPEC WHEN PFRMD [place] COLON CA SCRN NOT HI RSK IND [place] COLORECTAL SCRN; HI RISK IND [place] COLONOSCOPY W/BIOPSY SINGLE/MULTIPLE [place] COLSC FLX W/RMVL OF TUMOR POLYP LESION SNARE TQ [place] COLSC FLX W/REMOVAL LESION BY HOT BX FORCEPS Dexter Daniel MD [address] [place] [address] Referral ID Status Reason Start Date Expiration Date V isits Requested Visits Authorized [id number] Pending Review 12/08/2023 12/07/2024 1 1 Additional Source Comments (unrecognized sect ion and content) No Status Records FoundNo Status Records FoundNo Status Records FoundNo Status Records FoundNo Status Records FoundNo Status Records FoundNo Status Records FoundNo Status Records FoundNo Status Records Found INFORMATION SOURCE (unrecogn ized section and content) DATE CREATED AUTHOR 11/13/2017 [facility] DATE CREATED AUTHOR AUTHOR'S ORGANIZ ATION 03/09/2018 [facility] DATE CREATED AUTHOR AUTHOR'S ORGANIZ ATION 07/13/2021 [facility] DATE CREATED AUTHOR AUTHOR'S ORGANIZ ATION 07/23/2022 [facility] DATE CREATED AUTHOR AUTHOR'S ORGANIZ ATION 12/17/2023 [facility] DATE CREATED AUTHOR AUTHOR'S ORGANIZ ATION 03/03/2024 [facility] DATE CREATED AUTHOR AUTHOR'S ORGANIZ ATION 03/05/2024 [facility] DATE CREATED AUTHOR AUTHOR'S ORGANIZ ATION 03/18/2024 [facility] DATE CREATED AUTHOR AUTHOR'S ORGANIZ ATION 03/22/2025 [facility] Goals (unrecognized section and content) Goals [...] MD Admit Provider, Attending Provid er Active Channel Development Manager Relationship Specialty Start Date End Date Dexter Daniel MD [address] [facility], [facility] [address] [place] [address] PCP - General 07/10/20 Team Status: Active [...] Dr. Colten Crystal MD Attending Provider Active Channel Development Manager Relationship Specialty Start Date End Date Dexter Daniel MD [address] [place] [place] [address] PCP - MMO ACO PCP 07/24/22 Dexter Daniel MD [address] [place] [address] PCP - General Internal Medicine 06/04/23 Team Status: Inactive Member Role Status Dates Dr. Lavell Patel MD Emergency Provider Active FREDY RENTERIA MD Primary Care Provider Active Channel Development Manager Relationship Specialty Start Date End Date Dexter Daniel MD [address] [place] [address] PCP - General Internal Medicine 06/04/23 Channel Development Manager Relationship Specialty Start Date End Date Dexter Daniel MD [address] [place] [address] PCP - General Internal Medicine 06/04/23 Channel Development Manager Relationship Specialty Start Date End Date Dexter Daniel MD [address] [place] [address] PCP - General Internal Medicine 06/04/23 Channel Development Manager Relationship Specialty Start Date End Date Dexter Daniel MD [address] [place] [address] PCP - General Internal Medicine 06/04/23 Team [...] pancreatitis, unspecified complication status, unspecified pancreatitis type ([facility]) Procedures Dafne Bedoya MD [address] [place] [address] [facility] [place] [address] Referral ID Status Reason Start Date Expiration Date Visits Re quested Visits Authorized [id number] 1 1 Reason Comments Annual Exam GI Problem Vomiting, pain, week ly occurrence. Fatigue Specialty Diagnoses / Procedures Referred By Lurdes puentes Referred To Contact Radiology Diagnoses Abdominal pain, unspecified abdominal location Procedures US biliary system Dexter Daniel MD [address] [place] [address] Referral ID Status Reason Start Date Expiration Date Visits Requested Visits Authorized [id number] Authorized Perform Procedure 12/08/2023 12/07/2024 1 1 Specialty Diagnoses / Procedures Referred By Lurdes puentes Referred To Contact Radiology Diagnoses Chronic kidney disease, unspecified CKD stage Procedures US renal complete Dexter Daniel MD [address] [place] [address] Referral ID Status Reason Start Date Expiration Date Visits Requested Visits Authorized [id number] Authorized Perform Procedure 12/08/2023 12/07/2024 1 1 [...] acting SQ insulin. , Protocol Document: <a [email or web address]>, Other Initial [...] BE BASED ON THE PRIMARY CLINICAL RECORDS. [facility]. provides no warranty or guarantee of the accuracy or completeness of information in this document.
[2025-05-10 22:36] LABS: Color, Urine Yellow (Yellow); Glucose, Dipstick 1000 mg/dl (Normal); Leukocyte Esterase-Dipstick Negative /ul (Negative); Nitrite-Dipstick Negative (Negative); Occult Blood-Urine Negative /ul (Negative); Protein-Dipstick 30 mg/dl (Negative); Specific Gravity, Urine 1.020 (1.002-1.030); Urine Bilirubin Dipstick Negative (Negative)
[2025-05-10 22:38] LABS: Magnesium 1.7 mg/dL (1.5-2.2)
--- NOTE | 2025-05-10 22:42 | ED.RN ---
attempted to call report to ICU, no response at this time.
[2025-05-10 22:43] LABS: Ketone-Dipstick 150 mg/dl (Negative)
[2025-05-10] MEDS: Dext 5%-0.45% NS 1,000 ML 150 ML IV (23:15)
[2025-05-10 23:22] LABS: BETA-HYDROXYBUTYRATE 7.9 mmol/L (0.0-0.3)
--- OUTSIDE RECORDS SUMMARY | 2025-05-10 23:37 | XMS RPT_ITS | CCD ---
Author Organization [facility] Care Team Providers Care Sampler Tester Name Role Phone SILVIA MUNOZ Unavailable Unavailable PHYSICIAN, DEFAULT Unavailable Unavailable PHYSICIAN, DEFAULT Unavailable Unavailable Dexter Daniel Unavailable [phone] Sachin Kennedy Emergency Provider Dr. Emy Salazar Admit Provider Dr. Emy Salazar Other Provider Dr. Chiquis Irwin Attending Provider [phone] Dr. Chiquis Irwin Other Provider [facility] Doctor, Out of Primary Care Provider Dr. Yrn Lira Referring Provider ZEE Boothe Attending Provider [phone] Dr. Paul Ontiveros Attending Provider Dr. Lavell [...] Fredy DELGADO, Dexter D Primary Care Provider [phone] Dr. Dafne Cornell Emergency Provider MUNJAPARA, VALJI Primary Care Provider [phone] William Bowers Admit Provider Dr. William Bowers Other Provider Dr. Colten Crystal Attending Provider Dr. Colten Crystal Other Provider Fredy DELGADO, Dexter D Unavailable [phone] Fredy DELGADO, Valji D Primary Care Provider [...] Dr. Dexter DELGADO Primary Care Provider [phone] Ammon Nice MD Emergency Provider Ammon Nice [...] Primary Care Unavailable Reodica, Ammon Attending Unavailable [facility] [place] [facility] Unavailable Paul Ontiveros Attending Unavailable Paul Ontiveros Referring Unavailable [facility] Unavailable Allergies Allergy Classification Reported Allergen(s) Allergy Type Date of Onset Reaction(s) Facility (1 source) Metoprolol; Translations: [metoprolol] Drug Allergy -[facility] Internal Medicine Work Phone: Medications Current [...] Active Start: 08-15-2023 take 1 capsule by [facility] once daily Amlodipine-Benazepril Active 1 CAP PO [...] As directed Blood-Glucose Meter,Continuo us (Dexcom G6 Aerosol Line Operator) misc (10 sources) Start: 11-14-2021 Blood-Glucose Meter,Continuous (Dexcom G6 Aerosol Line Operator) misc Active 0 .Route 1 November 13, 2021 11:00pm As directed Start: 11-14-2021 Blood-Glucose Meter,Continuous (Dexcom G6 Aerosol Line Operator) misc Active 0 .Route 1 November 14, [...] 0 05/30/2022 06/09/2023 Discontinued (Therapy completed) nystatin [id number] unt/ml oral suspension (2 sources) Polyene Antifungal [...] September 04, 2023 12:00am polyethylene glycol 3350 28803 mg powder for oral solution (1 source) [...] 2021 12:00am 1 transmitter q 90 days Blood-Glucose,Aerosol Line Operator,Cont (Dexcom G6 Aerosol Line Operator) misc (2 sources) Start: 11-14-2021 End: 12-16-2023 Blood-Glucose,Aerosol Line Operator,Cont (Dexcom G6 Aerosol Line Operator) misc Discontinued 0 .Route 1 0 November [...] Brain W/WO Contraston 2024 Brain W/WO Contrast [facility] Imaging Services [address] [place] [address] [id number] Brain W/WO Contrast MR#: [id number] Acct: [id number] Name: JORGE HOLLIS Rep #: [id number] : 1995 M 29 From: Daly Frey PCP: Dr. Dexter Daniel MD Status: REG CLI Study: Brain W/WO Contrast Date of Exam: 03/02/25 Exam# [id number] Ordering Dr: Buddy Kang MD PROCEDURE: BRAIN [...] Chronic appearing paranasal sinus disease. Reading Location: [place] [address] CC: Dr. Buddy Kang MD; Dr. Dexter Daniel MD Resident Medical Officer: Signed Normal [facility] Absolute lymphocyte countOrd ered By: Lavell Patel on 02-07-2025 Lymphocytes Auto (Unsp spec) [#/Vol] 1.05 10*3/uL 0.83-4.51 [facility] Absolute neutrophil countOrd ered By: Lavell Patel on 02-07-2025 Neutrophils (Bld) [#/Vol] 7.6 10*3/uL 2.0-7.7 [facility] Anion gap in Serum or Plasma Ordered By: Lavell Amanda on 02-07-2025 Anion gap [Moles/Vol] 23 mmol/L High 5-15 [facility] Automated lymphocyte count a s percentage of total leukocytesOrdered By: Lavell Amanda on 02-07-2025 Lymphocytes/100 WBC Auto (Unsp spec) 11.0 % Low 19-41 [facility] BUN/creatinine ratioOrdered By: Lavell Amanda on 02-07-2025 Urea nitrogen/Creatinine [Mass ratio] 11.3 mg/mg 03-14 [facility] Basic Metabolic Profile (BMP )on 02-07-2025 BUN/CRE 11.3 RATIO Normal 03-14 [facility] Comment on above: Performed By: #### L 500.2500 #### [facility] Laboratory [address] [place], [address] Calcium [Mass/Vol] 9.5 mg/dL Normal 7.6-11.0 [facility] Comment on above: Performed By: #### L 500.2500 #### [facility] [address] [place], [address] Chloride [Moles/Vol] 99 mmol/L Normal 98-108 [facility] Comment on above: Performed By: #### L 500.2500 #### [facility] [address] [place], [address] CO2 [Moles/Vol] 17.6 mmol/L Low 21.0-32.0 [facility] Comment on above: Performed By: #### L 500.2500 #### [facility] [address] [place], [address] Creatinine [Mass/Vol] 1.10 mg/dL Normal 0.70-1.20 [facility] Comment on above: Performed By: #### L 500.2500 #### [facility] [address] [place], [address] ECRCL 112.99 ml/min Normal 50-250 [facility] Comment on above: Performed By: #### L 500.2500 #### [facility] [address] [place], [address] GAP 23 High 5-15 [facility] Comment on above: Performed By: #### L 500.2500 #### [facility] [address] [place], [address] GFR/1.73 sq M.predicted among non-blacks MDRD (S/P/Bld) [Vol rate/Area] 94 mL/min/{1.73_m2} Normal >60 [facility] Comment on above: Result Comment: mL/m in/1.73m2 CKD-EPI Creatinine Equation (2020) Performed By: #### L 500.2500 #### [facility] [address] [place], [address] Glucose [Mass/Vol] 245 mg/dL High 70-99 [facility] Comment on above: Performed By: #### L 500.2500 #### [facility] [address] [place], [address] Potassium [Moles/Vol] 4.3 mmol/L Normal 3.3-5.1 [facility] Comment on above: Performed By: #### L 500.2500 #### [facility] [address] [place], [address] Sodium [Moles/Vol] 140 mmol/L Normal 133-145 [facility] Comment on above: Performed By: #### L 500.2500 #### [facility] [address] [place], [address] Urea nitrogen [Mass/Vol] 12 mg/dL Normal 4-19 [facility] Comment on above: Performed By: #### L 500.2500 #### [facility] [address] [place], [address] Basophil percentageOrdered B y: Lavell Patel on 02-07-2025 Basophils/100 WBC (Bld) 0.4 % 0-1 [facility] Bedside Glucoseon 02-07-2025 FINGERSTICK GLU 236 mg/dL High 74-106 [facility] Comment on above: Result Comment: MERY STAPLETON OF PATIENT CARE PER NURSING PROTOCOL Performed By: #### L 501.080 #### [facility] [address] [place], [address] CBC W/Diff, Automatedon 01-24 Absolute Lymph 1.05 X10 3/uL Normal 0.83-4.51 [facility] Comment on above: Performed By: #### L 501.080 #### [facility] [address] [place], [address] Absolute Neut 7.6 X10 3/uL Normal 2.0-7.7 [facility] Comment on above: Performed By: #### L 501.080 #### [facility] [address] [place], [address] Basophils/100 WBC (Bld) 0.4 % Normal 0-1 [facility] Comment on above: Performed By: #### L 501.080 #### [facility] [address] [place], [address] Eosinophils/100 WBC (Bld) 0.1 % Normal 0-5 [facility] Comment on above: Performed By: #### L 501.080 #### [facility] [address] [place], [address] Erythrocyte distribution width (RBC) [Ratio] 13.2 % Normal 11.6-14.6 [facility] Comment on above: Performed By: #### L 501.080 #### [facility] [address] [place], [address] Hematocrit (Bld) [Volume fraction] 40.8 % Normal 40-54 [facility] Comment on above: Performed By: #### L 501.080 #### [facility] [address] [place], [address] Hemoglobin (Bld) [Mass/Vol] 14.1 g/dL Normal 13.0-16.5 [facility] Comment on above: Performed By: #### L 501.080 #### [facility] [address] [place], [address] IG% 0.600 Normal 0.0-0.9 [facility] Comment on above: Result Comment: IG% - Immature Granulocytes (promyelocytes, myelocytes and metamyelocytes) > 1% indicates that a LEFT SHIFT is Present. Performed By: #### L 501.080 #### [facility] [address] [place], [address] Lymphocytes/100 WBC (Bld) 11.0 % Low 19-41 [facility] Comment on above: Performed By: #### L 501.080 #### [facility] [address] [place], [address] MCH (RBC) [Entitic mass] 31.9 pg Normal 27.0-32.0 [facility] Comment on above: Performed By: #### L 501.080 #### [facility] [address] [place], [address] MCHC (RBC) [Mass/Vol] 34.6 g/dL Normal 32-36 [facility] Comment on above: Performed By: #### L 501.080 #### [facility] [address] [place], [address] MCV (RBC) [Entitic vol] 92.3 fL Normal 80-94 [facility] Comment on above: Performed By: #### L 501.080 #### [facility] [address] [place], [address] Monocytes/100 WBC (Bld) 7.8 % Normal 0-10 [facility] Comment on above: Performed By: #### L 501.080 #### [facility] [address] [place], [address] Neutrophils/100 WBC (Bld) 80.1 % High 47-70 [facility] Comment on above: Performed By: #### L 501.080 #### [facility] [address] [place], [address] Nucleated RBC (Bld) [#/Vol] 0 10*3/uL Normal 0-5 [facility] Comment on above: Performed By: #### L 501.080 #### [facility] [address] [place], [address] Platelet mean volume (Bld) [Entitic vol] 10.2 fL Normal 6.2-12.0 [facility] Comment on above: Performed By: #### L 501.080 #### [facility] [address] [place], [address] Platelets (Bld) [#/Vol] 144 10*3/uL Low 150-450 [facility] Comment on above: Performed By: #### L 501.080 #### [facility] [address] [place], [address] RBC (Bld) [#/Vol] 4.42 10*6/uL Low 4.6-6.2 [facility] Comment on above: Performed By: #### L 501.080 #### [facility] [address] [place], [address] RDW SD 44.9 fl High 35.1-43.9 [facility] Comment on above: Performed By: #### L 501.080 #### [facility] [address] [place], [address] WBC (Bld) [#/Vol] 9.5 10*3/uL Normal 4.4-11.0 [facility] Comment on above: Performed By: #### L 501.080 #### [facility] [address] [place], [address] Carbon dioxide, total [Moles /volume] in Central venous bloodOrdered By: Lavell Patel on 02-07-2025 CO2 [Moles/Vol] 17.6 mmol/L Low 21.0-32.0 [facility] Chloride assayOrdered By: Cheryl Patel on 02-07-2025 Chloride [Moles/Vol] 99 mmol/L 98-108 [facility] Emergency Department Summary on 02-07-2025 Emergency Department Summary [facility] Medical Records Department [address] [place] [address] Emergency Department Summary 02/07/25 MR#: [id number] Acct: [id number] Name: JORGE HOLLIS Rep #: [id number] : 1995 29 From: Lavell Patel MD [...] type I diabetic with an insulin pump. [facility] Medical History Pancreatitis GERD (gastroesophageal reflux [...] effort and (more content not included)... Normal [facility] Eosinophil percentageOrdered By: Lavell Patel on 02-07-2025 Eosinophils/100 WBC (Bld) 0.1 % 0-5 [facility] Erythrocyte distribution wid th ratioOrdered By: Lavell Patel on 02-07-2025 Erythrocyte distribution width (RBC) [Ratio] 13.2 % 11.6-14.6 [facility] Erythrocyte distribution wid th standard deviationOrdered By: Lavell Patel on 02-07-2025 Erythrocyte distribution width (RBC) [Ratio] 44.9 fl High 35.1-43.9 [facility] Glomerular filtration rate ( GFR) estimation/1.73 sq m using serum, plasma, or whole bOrdered By: Lavell Patel on 02-07-2025 GFR/1.73 sq M.predicted among non-blacks MDRD (S/P/Bld) [Vol rate/Area] 94 mL/min/{1.73_m2} >60 [facility] Comment on above: mL/min/1.73m2 CKD-EP I Creatinine Equation (2020) Glucose measurement at bedsi deOrdered By: Lavell Patel on 02-07-2025 Glucose [Mass/Vol] 236 mg/dL High 74-106 [facility] Comment on above: MANAGEMENT OF PATIEN T CARE PER NURSING PROTOCOL Hematocrit Auto (Bld) [Volum e fraction]Ordered By: Lavell Patel on 02-07-2025 Hematocrit (Bld) [Volume fraction] 40.8 % 40-54 [facility] Hemoglobin measurementOrdere d By: Lavell Patel on 02-07-2025 Hemoglobin (Bld) [Mass/Vol] 14.1 g/dL 13.0-16.5 [facility] Immature granulocytes/100 WB C Auto (Bld)Ordered By: Lavell Patel on 02-07-2025 Immature granulocytes/100 WBC (Bld) 0.600 % 0.0-0.9 [facility] Comment on above: IG% - Immature Granu locytes (promyelocytes, myelocytes and metamyelocytes) > 1% indicates that a LEFT SHIFT is Present. MCV (mean corpuscular volume ) determinationOrdered By: Lavell Patel on 02-07-2025 MCV (RBC) [Entitic vol] 92.3 fL 80-94 [facility] Mean corpuscular hemoglobin (MCH) determinationOrdered By: Lavell Patel on 02-07-2025 MCH (RBC) [Entitic mass] 31.9 pg 27.0-32.0 [facility] Mean corpuscular hemoglobin concentration (MCHC) determinationOrdered By: Lavell Patel on 02-07-2025 MCHC (RBC) [Mass/Vol] 34.6 g/dL 32-36 [facility] Mean platelet volume determi nationOrdered By: Lavell Patel on 02-07-2025 Platelet mean volume (Bld) [Entitic vol] 10.2 fL 6.2-12.0 [facility] Monocyte percentageOrdered B y: Lavell Patel on 02-07-2025 Monocytes/100 WBC (Bld) 7.8 % 0-10 [facility] Neutrophil percentageOrdered By: Lavell Patel on 02-07-2025 Neutrophils/100 WBC (Bld) 80.1 % High 47-70 [facility] Nucleated red blood cell per centageOrdered By: Lavell Patel on 02-07-2025 Nucleated RBC/100 WBC (Bld) [Ratio] 0 % 0-5 [facility] Platelet countOrdered By: Cheryl Patel on 02-07-2025 Platelets (Bld) [#/Vol] 144 10*3/uL Low 150-450 [facility] Potassium measurement (mass/ volume)Ordered By: Lavell Patel on 02-07-2025 Potassium (Unsp spec) [Mass/Vol] 4.3 mmol/L 3.3-5.1 [facility] RBC Auto (Bld) [#/Vol]Ordere d By: Lavell Patel on 02-07-2025 RBC (Bld) [#/Vol] 4.42 10*6/uL Low 4.6-6.2 [facility] Serum creatinine measurement (mass/volume)Ordered By: Lavell Patel on 02-07-2025 Creatinine [Mass/Vol] 1.10 mg/dL 0.70-1.20 [facility] Serum glucose measurement (m ass/volume)Ordered By: Lavell Patel on 02-07-2025 Glucose [Mass/Vol] 245 mg/dL High 70-99 [facility] Serum or plasma calcium bucky urement (mass/volume)Ordered By: Lavell Patel on 02-07-2025 Calcium [Mass/Vol] 9.5 mg/dL 7.6-11.0 [facility] Serum or plasma urea nitroge n measurement (mass/volume)Ordered By: Lavell Patel on 02-07-2025 Urea nitrogen [Mass/Vol] 12 mg/dL 4-19 [facility] Sodium levelOrdered By: Ge Patel on 02-07-2025 Sodium [Moles/Vol] 140 mmol/L 133-145 [facility] White blood cell (WBC) count Ordered By: Lavell Patel on 02-07-2025 WBC (Bld) [#/Vol] 9.5 10*3/uL 4.4-11.0 [facility] Absolute lymphocyte countOrd ered By: Ammon Nice on 01-22-2025 Lymphocytes Auto (Unsp spec) [#/Vol] 2.00 10*3/uL 0.83-4.51 [facility] Absolute neutrophil countOrd ered By: Ammon Nice on 01-22-2025 Neutrophils (Bld) [#/Vol] 4.3 10*3/uL 2.0-7.7 [facility] Alcohol, Blood (Medical)-Ser umon 01-22-2025 SERUM ETOH 36.6 mg/dL High <=10.0 [facility] Comment on above: Result Comment: This test is for medical purposes only. The legal definition of intoxication varies according to local law. Performed By: #### L 500.4100, L500.4050, L100.0100, L509.6000, L501.9520, L3100.5310 #### [facility] [address] [place], [place], [id number] Amphetamine detection with 1 000 ng/mL as cutoffOrdered By: Ammon Nice on 01-22-2025 Amphetamines Screen method >1000 ng/mL Ql (U) Negative < 200 ng/mL [facility] Anion gap in Serum or Plasma Ordered By: Ammon Nice on 01-22-2025 Anion gap [Moles/Vol] 30 mmol/L High 5-15 [facility] Automated lymphocyte count a s percentage of total leukocytesOrdered By: Ammon Nice on 01-22-2025 Lymphocytes/100 WBC Auto (Unsp spec) 27.4 % 19-41 [facility] BUN/creatinine ratioOrdered By: Ammon Nice on 01-22-2025 Urea nitrogen/Creatinine [Mass ratio] 7.7 mg/mg Low 10-20 [facility] Basophil percentageOrdered B y: Ammon Nice on 01-22-2025 Basophils/100 WBC (Bld) 1.0 % 0-1 [facility] Bedside Glucoseon 01-22-2025 FINGERSTICK GLU 249 mg/dL High 74-106 [facility] Comment on above: Result Comment: MERY STAPLETON OF PATIENT CARE PER NURSING PROTOCOL Performed By: #### L 501.080 #### [facility] [address] [place], [place], [address] FINGERSTICK GLU 337 mg/dL High 74-106 [facility] Comment on above: Result Comment: MERY GEMENT OF PATIENT CARE PER NURSING PROTOCOL Performed By: #### L 501.080 #### [facility] [address] [place], [address] FINGERSTICK GLU 310 mg/dL High 74-106 [facility] Comment on above: Result Comment: MERY GEMENT OF PATIENT CARE PER NURSING PROTOCOL Performed By: #### L 501.080 #### [facility] [address] [place], [address] FINGERSTICK GLU 180 mg/dL High 74-106 [facility] Comment on above: Result Comment: MERY GEMENT OF PATIENT CARE PER NURSING PROTOCOL Performed By: #### L 501.080 #### [facility] [address] [place], [address] FINGERSTICK GLU 56 mg/dL Low 74-106 [facility] Comment on above: Result Comment: MERY GEMENT OF PATIENT CARE PER NURSING PROTOCOL Performed By: #### L 501.080 #### [facility] [address] [place], [address] FINGERSTICK GLU 148 mg/dL High 74-106 [facility] Comment on above: Result Comment: MERY GEMENT OF PATIENT CARE PER NURSING PROTOCOL Performed By: #### L 501.080 #### [facility] [address] [place], [address] Bilirubin, totalOrdered By: Ammon Nice on 01-22-2025 Bilirubin [Mass/Vol] 0.55 mg/dL 0.00-1.30 [facility] Brain/Head without Contrasto n 01-22-2025 Brain/Head without Contrast [facility] Imaging Services [address] [place] [address] Brain/Head without Contrast MR#: [id number] Acct: [id number] Name: JORGE HOLLIS Rep #: [id number] : 1995 M 29 From: Georgi Lund MD PCP: Dr. Dexter Daniel MD Status: REG ER Study: Brain/Head without Contrast Date of Exam: 12/26 Exam# [id number] Ordering Dr: Ammon Nice MD PROCEDURE: BRAIN/HEAD [...] without contrast. 2. Multifocal sinusitis. Reading Location: [id number] CC: Dr. Ammon Nice MD; Dr. Dexter Daniel MD Resident Medical Officer: Signed Normal [facility] CBC W/Diff, Automatedon 12-26 Absolute Lymph 2.00 X10 3/uL Normal 0.83-4.51 [facility] Comment on above: Performed By: #### L 501.080 #### [facility] [address] [place], [place], [id number] Absolute Neut 4.3 X10 3/uL Normal 2.0-7.7 [facility] Comment on above: Performed By: #### L 501.080 #### [facility] [address] [place], [address] Basophils/100 WBC (Bld) 1.0 % Normal 0-1 [facility] Comment on above: Performed By: #### L 501.080 #### [facility] [address] [place], [address] Eosinophils/100 WBC (Bld) 0.5 % Normal 0-5 [facility] Comment on above: Performed By: #### L 501.080 #### [facility] [address] [place], [address] Erythrocyte distribution width (RBC) [Ratio] 12.9 % Normal 11.6-14.6 [facility] Comment on above: Performed By: #### L 501.080 #### [facility] [address] [place], [address] Hematocrit (Bld) [Volume fraction] 41.6 % Normal 40-54 [facility] Comment on above: Performed By: #### L 501.080 #### [facility] [address] [place], [address] Hemoglobin (Bld) [Mass/Vol] 14.5 g/dL Normal 13.0-16.5 [facility] Comment on above: Performed By: #### L 501.080 #### [facility] [address] [place], [address] IG% 0.100 Normal 0.0-0.9 [facility] Comment on above: Result Comment: IG% - Immature Granulocytes (promyelocytes, myelocytes and metamyelocytes) > 1% indicates that a LEFT SHIFT is Present. Performed By: #### L 501.080 #### [facility] [address] [place], [address] Lymphocytes/100 WBC (Bld) 27.4 % Normal 19-41 [facility] Comment on above: Performed By: #### L 501.080 #### [facility] [facility] [address] [place], [address] MCH (RBC) [Entitic mass] 32.3 pg High 27.0-32.0 [facility] Comment on above: Performed By: #### L 501.080 #### [facility] [address] [place], [address] MCHC (RBC) [Mass/Vol] 34.9 g/dL Normal 32-36 [facility] Comment on above: Performed By: #### L 501.080 #### [facility] [address] [place], [address] MCV (RBC) [Entitic vol] 92.7 fL Normal 80-94 [facility] Comment on above: Performed By: #### L 501.080 #### [facility] [address] [place], [address] Monocytes/100 WBC (Bld) 11.8 % High 0-10 [facility] Comment on above: Performed By: #### L 501.080 #### [facility] [address] [place], [address] Neutrophils/100 WBC (Bld) 59.2 % Normal 47-70 [facility] Comment on above: Performed By: #### L 501.080 #### [facility] [address] [place], [address] Nucleated RBC (Bld) [#/Vol] 0 10*3/uL Normal 0-5 [facility] Comment on above: Performed By: #### L 501.080 #### [facility] [address] [place], [address] Platelet mean volume (Bld) [Entitic vol] 10.2 fL Normal 6.2-12.0 [facility] Comment on above: Performed By: #### L 501.080 #### [facility] [address] [place], [address] Platelets (Bld) [#/Vol] 185 10*3/uL Normal 150-450 [facility] Comment on above: Performed By: #### L 501.080 #### [facility] [address] [place], [address] RBC (Bld) [#/Vol] 4.49 10*6/uL Low 4.6-6.2 [facility] Comment on above: Performed By: #### L 501.080 #### [facility] [address] [place], [address] RDW SD 43.8 fl Normal 35.1-43.9 [facility] Comment on above: Performed By: #### L 501.080 #### [facility] [address] [place], [address] WBC (Bld) [#/Vol] 7.3 10*3/uL Normal 4.4-11.0 [facility] Comment on above: Performed By: #### L 501.080 #### [facility] [address] [place], [address] Carbon dioxide, total [Moles /volume] in Central venous bloodOrdered By: Ammon Nice on 01-22-2025 CO2 [Moles/Vol] 14.8 mmol/L Low 21.0-32.0 [facility] Chloride assayOrdered By: Jatin Nice on 01-22-2025 Chloride [Moles/Vol] 99 mmol/L 98-108 [facility] Comprehensive Metabolic Prof ilon 01-22-2025 Albumin [Mass/Vol] 4.6 g/dL Normal 3.5-5.0 [facility] Comment on above: Performed By: #### L 501.080 #### [facility] [address] [place], [address] Albumin/Globulin [Mass ratio] 1.8 {ratio} Normal 0.9-2.4 [facility] Comment on above: Performed By: #### L 501.080 #### [facility] [address] [place], [address] ALK PHOS 99 U/L Normal 40-129 [facility] Comment on above: Performed By: #### L 501.080 #### [facility] [address] [place], [address] ALT [Catalytic activity/Vol] 129 U/L High <=46 [facility] Comment on above: Performed By: #### L 501.080 #### [facility] [address] [place], [address] AST [Catalytic activity/Vol] 133 U/L High <=37 [facility] Comment on above: Performed By: #### L 501.080 #### [facility] [address] [place], [address] Bilirubin [Mass/Vol] 0.55 mg/dL Normal 0.00-1.30 [facility] Comment on above: Performed By: #### L 501.080 #### [facility] [address] [place], [address] BUN/CRE 7.7 RATIO Low 10-20 [facility] Comment on above: Performed By: #### L 501.080 #### [facility] [address] [place], [address] Calcium [Mass/Vol] 9.7 mg/dL Normal 7.6-11.0 [facility] Comment on above: Performed By: #### L 501.080 #### [facility] [address] [place], [address] Chloride [Moles/Vol] 99 mmol/L Normal 98-108 [facility] Comment on above: Performed By: #### L 501.080 #### [facility] [address] [place], [address] CO2 [Moles/Vol] 14.8 mmol/L Low 21.0-32.0 [facility] Comment on above: Performed By: #### L 501.080 #### [facility] [address] [place], [address] Creatinine [Mass/Vol] 0.90 mg/dL Normal 0.70-1.20 [facility] Comment on above: Performed By: #### L 501.080 #### [facility] [address] [place], [address] ECRCL 138.10 ml/min Normal 50-250 [facility] Comment on above: Performed By: #### L 501.080 #### [facility] [address] [place], [address] GAP 30 High 5-15 [facility] Comment on above: Performed By: #### L 501.080 #### [facility] [address] [place], [address] GFR/1.73 sq M.predicted among non-blacks MDRD (S/P/Bld) [Vol rate/Area] 120 mL/min/{1.73_m2} Normal >60 [facility] Comment on above: Result Comment: mL/m in/1.73m2 CKD-EPI Creatinine Equation (2020) Performed By: #### L 501.080 #### [facility] [address] [place], [address] Globulin (S) [Mass/Vol] 2.6 g/dL Normal 2.2-4.2 [facility] Comment on above: Performed By: #### L 501.080 #### [facility] [address] [place], [address] Glucose [Mass/Vol] 65 mg/dL Low 70-99 [facility] Comment on above: Performed By: #### L 501.080 #### [facility] [address] [place], [address] Potassium [Moles/Vol] 3.5 mmol/L Normal 3.3-5.1 [facility] Comment on above: Performed By: #### L 501.080 #### [facility] [address] [place] [place], [address] Sodium [Moles/Vol] 144 mmol/L Normal 133-145 [facility] Comment on above: Performed By: #### L 501.080 #### [facility] [address] [place], [address] T PROT 7.2 g/dL Normal 5.9-8.4 [facility] Comment on above: Performed By: #### L 501.080 #### [facility] [address] [place], [address] Urea nitrogen [Mass/Vol] 7 mg/dL Normal 4-19 [facility] Comment on above: Performed By: #### L 501.080 #### [facility] [address] [place], [address] Emergency Department Summary on 01-22-2025 Emergency Department Summary [facility] Medical Records Department [address] [place] [address] Emergency Department Summary 01/22/25 MR#: [id number] Acct: [id number] Name: JORGE HOLLIS Rep #: [id number] : 1995 29 From: Ammon Nice MD [...] who states that [place] [employer] [place] yesterday, and the patient was able [...] teens. He presents with hypoglycemia and nausea. [facility] Medical History History of diabetes mellitus [...] patient seconda (more content not included)... Normal [facility] Eosinophil percentageOrdered By: Ammon Nice on 01-22-2025 Eosinophils/100 WBC (Bld) 0.5 % 0-5 [facility] Erythrocyte distribution wid th ratioOrdered By: Ammon Nice on 01-22-2025 Erythrocyte distribution width (RBC) [Ratio] 12.9 % 11.6-14.6 [facility] Erythrocyte distribution wid th standard deviationOrdered By: Ammon Nice on 01-22-2025 Erythrocyte distribution width (RBC) [Ratio] 43.8 fl 35.1-43.9 [facility] Glomerular filtration rate ( GFR) estimation/1.73 sq m using serum, plasma, or whole bOrdered By: Ammon Nice on 01-22-2025 GFR/1.73 sq M.predicted among non-blacks MDRD (S/P/Bld) [Vol rate/Area] 120 mL/min/{1.73_m2} >60 [facility] Comment on above: mL/min/1.73m2 CKD-EP I Creatinine Equation (2020) Glucose measurement at [facility] deOrdered By: Ammon Nice on 01-22-2025 Glucose [Mass/Vol] 249 mg/dL High 74-106 [facility] Comment on above: MANAGEMENT OF PATIEN T CARE PER NURSING PROTOCOL Hematocrit Auto (Bld) [Volum e fraction]Ordered By: Ammon Nice on 01-22-2025 Hematocrit (Bld) [Volume fraction] 41.6 % 40-54 [facility] Hemoglobin measurementOrdere d By: Ammon Nice on 01-22-2025 Hemoglobin (Bld) [Mass/Vol] 14.5 g/dL 13.0-16.5 [facility] Immature granulocytes/100 WB C Auto (Bld)Ordered By: Ammon Nice on 01-22-2025 Immature granulocytes/100 WBC (Bld) 0.100 % 0.0-0.9 [facility] Comment on above: IG% - Immature Granu locytes (promyelocytes, myelocytes and metamyelocytes) > 1% indicates that a LEFT SHIFT is Present. Laboratory - Chemistry and C hemistry - challengeOrdered By: Ammon Nice on 01-22-2025 AST [Catalytic activity/Vol] 133 U/L High <38 [facility] Lipaseon 01-22-2025 Lipase [Catalytic activity/Vol] 66 U/L Normal 13-75 [facility] Comment on above: Result Comment: Ligia samano note: LIPASE revised reference range effective 22. New Lipase methodology. Expected to produce lower values than the previous assay method. NEW Reference Range: 13 - 75 U/L Performed By: #### L 500.4100, L500.4050, L100.0100, L509.6000, L501.9520, L3100.5310 #### [facility] [address] [place], [address] Lipase [Catalytic activity/Vol] 62 U/L Normal 13-75 [facility] Comment on above: Result Comment: Ligia samano note: LIPASE revised reference range effective 22. New Lipase methodology. Expected to produce lower values than the previous assay method. NEW Reference Range: 13 - 75 U/L Performed By: #### L 501.080 #### [facility] [address] [facility] [facility] [place], [address] Lipase measurementOrdered By : Ammon Nice on 01-22-2025 Lipase [Catalytic activity/Vol] 66 U/L 13-75 [facility] Comment on above: Please note:LIPASE r evised reference range effective 22. New Lipase methodology. Expected to produce lower values than the previous assay method. NEW Reference Range: 13 - 75 U/L MCV (mean corpuscular volume ) determinationOrdered By: Ammon Nice on 01-22-2025 MCV (RBC) [Entitic vol] 92.7 fL 80-94 [facility] Mean corpuscular hemoglobin (MCH) determinationOrdered By: Ammon Nice on 01-22-2025 MCH (RBC) [Entitic mass] 32.3 pg High 27.0-32.0 [facility] Mean corpuscular hemoglobin concentration (MCHC) determinationOrdered By: Ammon Nice on 01-22-2025 MCHC (RBC) [Mass/Vol] 34.9 g/dL 32-36 [facility] Mean platelet volume determi nationOrdered By: Ammon Nice on 01-22-2025 Platelet mean volume (Bld) [Entitic vol] 10.2 fL 6.2-12.0 [facility] Monocyte percentageOrdered B y: Ammon Nice on 01-22-2025 Monocytes/100 WBC (Bld) 11.8 % High 0-10 [facility] Neutrophil percentageOrdered By: Ammon Nice on 01-22-2025 Neutrophils/100 WBC (Bld) 59.2 % 47-70 [facility] No Panel InformationOrdered By: Ammon Nice on 01-22-2025 Urine Buprenorphine Qualitative Negative < 200 ng/mL [facility] Urine Oxycodone Screen Negative < 100 ng/mL [facility] Nucleated red blood cell per centageOrdered By: Ammon Nice on 01-22-2025 Nucleated RBC/100 WBC (Bld) [Ratio] 0 % 0-5 [facility] Platelet countOrdered By: Jatin Nice on 01-22-2025 Platelets (Bld) [#/Vol] 185 10*3/uL 150-450 [facility] Potassium measurement (mass/ volume)Ordered By: Ammon Nice on 01-22-2025 Potassium (Unsp spec) [Mass/Vol] 3.5 mmol/L 3.3-5.1 [facility] Quantitative urine opiates m easurementOrdered By: Ammon Nice on 01-22-2025 Opiates Ql (U) Negative < 300 ng/mL [facility] RBC Auto (Bld) [#/Vol]Ordere d By: Ammon Nice on 01-22-2025 RBC (Bld) [#/Vol] 4.49 10*6/uL Low 4.6-6.2 [facility] Screening urine fentanyl wade surementOrdered By: Ammon Nice on 01-22-2025 fentaNYL Screen Ql (U) Negative <5 ng/mL [facility] Comment on above: CONFIRMATORY TESTING FOR [...] on 01-22-2025 Creatinine [Mass/Vol] 0.90 mg/dL 0.70-1.20 [facility] Serum globulin measurementOr dered By: Ammon Nice on 01-22-2025 Globulin (S) [Mass/Vol] 2.6 g/dL 2.2-4.2 [facility] Serum glucose measurement (m ass/volume)Ordered By: Ammon Nice on 01-22-2025 Glucose [Mass/Vol] 65 mg/dL Low 70-99 [facility] Serum or plasma alanine nava otransferase (ALT) measurementOrdered By: Ammon Nice on 01-22-2025 ALT [Catalytic activity/Vol] 129 U/L High <47 [facility] Serum or plasma albumin bucky urement (mass/volume)Ordered By: Ammon Nice on 01-22-2025 Albumin [Mass/Vol] 4.6 g/dL 3.5-5.0 [facility] Serum or plasma albumin/glob ulin mass ratioOrdered By: Ammon Nice on 01-22-2025 Albumin/Globulin [Mass ratio] 1.8 {ratio} 0.9-2.4 [facility] Serum or plasma alkaline alfonso sphatase measurementOrdered By: Ammon Nice on 01-22-2025 ALP [Catalytic activity/Vol] 99 U/L 40-129 [facility] Serum or plasma calcium bucky urement (mass/volume)Ordered By: Ammon Nice on 01-22-2025 Calcium [Mass/Vol] 9.7 mg/dL 7.6-11.0 [facility] Serum or plasma ethanol bucky urement (mass/volume)Ordered By: Ammon Nice on 01-22-2025 Ethanol [Mass/Vol] 36.6 mg/dL High <10.1 [facility] Comment on above: This test is for med ical purposes only. The legal definition of intoxication varies according to local law. Serum or plasma urea nitroge n measurement (mass/volume)Ordered By: Ammon Nice on 01-22-2025 Urea nitrogen [Mass/Vol] 7 mg/dL 4-19 [facility] Sodium levelOrdered By: Ammon Nice on 01-22-2025 Sodium [Moles/Vol] 144 mmol/L 133-145 [facility] Total proteinOrdered By: Veronica Nice on 01-22-2025 Protein [Mass/Vol] 7.2 g/dL 5.9-8.4 [facility] Urine Drug Screen (VISTA)on 01-22-2025 AMPHETAMINES Negative Normal <1000 ng/mL [facility] Comment on above: Performed By: #### L 500.4100, L500.4050, L100.0100, L509.6000, L501.9520, L3100.5310 #### [facility] [address] [place] [address] BARBITIURATES Negative Normal < 200 ng/mL [facility] Comment on above: Performed By: #### L 500.4100, L500.4050, L100.0100, L509.6000, L501.9520, L3100.5310 #### [facility] [address] [place] [address] BENZODIAZIPINE Negative Normal < 200 ng/mL [facility] Comment on above: Performed By: #### L 500.4100, L500.4050, L100.0100, L509.6000, L501.9520, L3100.5310 #### [facility] [address] [place] [address] BUP Ur Drug Scr Negative Normal < 200 ng/mL [facility] Comment on above: Performed By: #### L 500.4100, L500.4050, L100.0100, L509.6000, L501.9520, L3100.5310 #### [facility] [address] [place] [address] COCAINE Negative Normal < 300 ng/mL [facility] Comment on above: Performed By: #### L 500.4100, L500.4050, L100.0100, L509.6000, L501.9520, L3100.5310 #### [facility] [address] [place], [address] Fentanyl Negative Normal <5 ng/mL [facility] Comment on above: Result Comment: CONF [...] 500.4100, L500.4050, L100.0100, L509.6000, L501.9520, L3100.5310 #### [facility] [address] [place], [address] METHADONE Negative Normal < 300 ng/mL [facility] Comment on above: Performed By: #### L 500.4100, L500.4050, L100.0100, L509.6000, L501.9520, L3100.5310 #### [facility] [address] [place], [place], [facility] OPIATES Negative Normal < 300 ng/mL [facility] Comment on above: Performed By: #### L 500.4100, L500.4050, L100.0100, L509.6000, L501.9520, L3100.5310 #### [facility] [address] [place], [address] OXYCODONE Negative Normal < 100 ng/mL [facility] Comment on above: Performed By: #### L 500.4100, L500.4050, L100.0100, L509.6000, L501.9520, L3100.5310 #### [facility] [address] [place], [address] PCP Negative Normal < 25 ng/mL [facility] Comment on above: Performed By: #### L 500.4100, L500.4050, L100.0100, L509.6000, L501.9520, L3100.5310 #### [facility] [address] [place], [place], [id number] [phone] THC Negative Normal < 50 ng/mL [facility] Comment on above: Performed By: #### L 500.4100, L500.4050, L100.0100, L509.6000, L501.9520, L3100.5310 #### [facility] [address] [place], [place], [id number] (216) Urine benzodiazepine levelOr dered By: Ammon Nice on 01-22-2025 Benzodiazepines Ql (U) Negative < 200 ng/mL [facility] Urine cocaine levelOrdered B y: Ammon Nice on 01-22-2025 Cocaine Ql (U) Negative < 300 ng/mL [facility] Urine mglno-2-soesrhqtjctyyv abinol (THC) measurementOrdered By: Ammon Nice on 01-22-2025 Cannabinoids Screen Ql (U) Negative < 50 ng/mL [facility] Urine phencyclidine (PCP) de tectionOrdered By: Ammon Nice on 01-22-2025 Phencyclidine Ql (U) Negative < 25 ng/mL [facility] White blood cell (WBC) count Ordered By: Ammon Nice on 01-22-2025 WBC (Bld) [#/Vol] 7.3 10*3/uL 4.4-11.0 [facility] Endocrinology Visit Reporton 09-20-2024 Endocrinology Visit Report [facility] [address] [place], [place] [address] OFFICE VISIT Date of Service: 09/20/24 MR#: [id number] Acct: [id number] Name: JORGE HOLLIS DALY Rep #: [id number] : 1995 Provider: Jessica Chambers Age/Sex: 29/M Location: [facility] [place] Status: Signed Intake Vital Signs 06/15/24 15:53 [...] 09/2009/20/24 Rx subcutaneous solution (Humalog U-100 Insulin) COUNTS INCLUDE 234 BEDS AT [facility] Medical History History of diabetes mellitus [...] Cardio R (more content not included)... Normal [facility] Testosterone, Total / Freeon 06-23-2024 TESTOSTER,FREE 15.15 ng/dL Normal 5.00-21.00 [facility] Comment on above: Order Comment: N Performed By: #### L 500.4100, L500.4050, L100.0100, L509.6000, L501.9520, L3100.5310 #### [facility] [address] [place], [address] TESTOSTER,TOTAL 481 ng/dL Normal 264-916 [facility] Comment on above: Order Comment: N Result Comment: Adul t male reference interval is based on a population of healthy nonobese males (BMI <30) between 19 and 39 years old. wilver Sandoval.al. JCEM 2017,102;5884-2244. PMID: [id number]. Performed By: #### L 500.4100, L500.4050, L100.0100, L509.6000, L501.9520, L3100.5310 #### [facility] [address] [place], [place], [id number] (276) TESTOSTERONE,%F 3.15 Normal 1.50-4.20 [facility] Comment on above: Order Comment: N Result Comment: Perf ormed at: [facility] [id number] Order Puller: Mick Rizvi PhD, Phone: [phone] Performed at: [facility] [address] [id number] Order Puller: Khalif Kapoor MD, Phone: [phone] Performed By: #### L 500.4100, L500.4050, L100.0100, L509.6000, L501.9520, L3100.5310 #### [facility] [address] [place], [address] CORTISOL SERUMon 06-21-2024 CORTISOL 1.50 ug/dL Low 3.44-22.45 [facility] Comment on above: Result Comment: Adul t (AM) 5.27 - 22.45 ug/dL Adult (PM) 3.44 - 16.76 ug/dL Performed By: #### L 500.4100, L500.4050, L100.0100, L509.6000, L501.9520, L3100.5310 #### [facility] [address] [place], [address] CBC W/Diff, Automatedon 05-27 Absolute Lymph 1.25 X10 3/uL Normal 0.83-4.51 [facility] Comment on above: Performed By: #### L 500.4100, L500.4050, L100.0100, L509.6000, L501.9520, L3100.5310 #### [facility] [address] [place], [address] Absolute Neut 6.0 X10 3/uL Normal 2.0-7.7 [facility] Comment on above: Performed By: #### L 500.4100, L500.4050, L100.0100, L509.6000, L501.9520, L3100.5310 #### [facility] [address] [place], [address] Basophils/100 WBC (Bld) 0.7 % Normal 0-1 [facility] Comment on above: Performed By: #### L 500.4100, L500.4050, L100.0100, L509.6000, L501.9520, L3100.5310 #### [facility] [address] [place], [address] Eosinophils/100 WBC (Bld) 0.0 % Normal 0-5 [facility] Comment on above: Performed By: #### L 500.4100, L500.4050, L100.0100, L509.6000, L501.9520, L3100.5310 #### [facility] [address] [place], [address] Erythrocyte distribution width (RBC) [Ratio] 12.6 % Normal 11.6-14.6 [facility] Comment on above: Performed By: #### L 500.4100, L500.4050, L100.0100, L509.6000, L501.9520, L3100.5310 #### [facility] [address] [place], [address] Hematocrit (Bld) [Volume fraction] 42.8 % Normal 40-54 [facility] Comment on above: Performed By: #### L 500.4100, L500.4050, L100.0100, L509.6000, L501.9520, L3100.5310 #### [facility] [address] [place], [address] Hemoglobin (Bld) [Mass/Vol] 14.7 g/dL Normal 13.0-16.5 [facility] Comment on above: Performed By: #### L 500.4100, L500.4050, L100.0100, L509.6000, L501.9520, L3100.5310 #### [facility] [address] [place], [address] IG% 0.400 Normal 0.0-0.9 [facility] Comment on above: Result Comment: IG% - Immature Granulocytes (promyelocytes, myelocytes and metamyelocytes) > 1% indicates that a LEFT SHIFT is Present. Performed By: #### L 500.4100, L500.4050, L100.0100, L509.6000, L501.9520, L3100.5310 #### [facility] [address] [place], [address] Lymphocytes/100 WBC (Bld) 15.4 % Low 19-41 [facility] Comment on above: Performed By: #### L 500.4100, L500.4050, L100.0100, L509.6000, L501.9520, L3100.5310 #### [facility] [address] [place], [address] MCH (RBC) [Entitic mass] 30.9 pg Normal 27.0-32.0 [facility] Comment on above: Performed By: #### L 500.4100, L500.4050, L100.0100, L509.6000, L501.9520, L3100.5310 #### [facility] [address] [place], [address] MCHC (RBC) [Mass/Vol] 34.3 g/dL Normal 32-36 [facility] Comment on above: Performed By: #### L 500.4100, L500.4050, L100.0100, L509.6000, L501.9520, L3100.5310 #### [facility] [address] [place], [address] MCV (RBC) [Entitic vol] 90.1 fL Normal 80-94 [facility] Comment on above: Performed By: #### L 500.4100, L500.4050, L100.0100, L509.6000, L501.9520, L3100.5310 #### [facility] [address] [place], [address] Monocytes/100 WBC (Bld) 9.8 % Normal 0-10 [facility] Comment on above: Performed By: #### L 500.4100, L500.4050, L100.0100, L509.6000, L501.9520, L3100.5310 #### [facility] [address] [place], [address] Neutrophils/100 WBC (Bld) 73.7 % High 47-70 [facility] Comment on above: Performed By: #### L 500.4100, L500.4050, L100.0100, L509.6000, L501.9520, L3100.5310 #### [facility] [address] [place], [address] Nucleated RBC (Bld) [#/Vol] 0 10*3/uL Normal 0-5 [facility] Comment on above: Performed By: #### L 500.4100, L500.4050, L100.0100, L509.6000, L501.9520, L3100.5310 #### [facility] [address] [place], [address] Platelet mean volume (Bld) [Entitic vol] 9.4 fL Normal 6.2-12.0 [facility] Comment on above: Performed By: #### L 500.4100, L500.4050, L100.0100, L509.6000, L501.9520, L3100.5310 #### [facility] [address] [place], [address] Platelets (Bld) [#/Vol] 219 10*3/uL Normal 150-450 [facility] Comment on above: Performed By: #### L 500.4100, L500.4050, L100.0100, L509.6000, L501.9520, L3100.5310 #### [facility] [address] [place], [address] RBC (Bld) [#/Vol] 4.75 10*6/uL Normal 4.6-6.2 [facility] Comment on above: Performed By: #### L 500.4100, L500.4050, L100.0100, L509.6000, L501.9520, L3100.5310 #### [facility] [address] [place], [address] RDW SD 41.7 fl Normal 35.1-43.9 [facility] Comment on above: Performed By: #### L 500.4100, L500.4050, L100.0100, L509.6000, L501.9520, L3100.5310 #### [facility] [address] [place], [address] WBC (Bld) [#/Vol] 8.1 10*3/uL Normal 4.4-11.0 [facility] Comment on above: Performed By: #### L 500.4100, L500.4050, L100.0100, L509.6000, L501.9520, L3100.5310 #### [facility] [address] [place], [address] Comprehensive Metabolic Prof ilon 06-19-2024 Albumin [Mass/Vol] 4.0 g/dL Normal 3.2-5.0 [facility] Comment on above: Performed By: #### L 500.4100, L500.4050, L100.0100, L509.6000, L501.9520, L3100.5310 #### [facility] [address] [place], [address] Albumin/Globulin [Mass ratio] 1.1 {ratio} Normal 0.9-2.4 [facility] Comment on above: Performed By: #### L 500.4100, L500.4050, L100.0100, L509.6000, L501.9520, L3100.5310 #### [facility] [address] [place], [address] ALK P 92 U/L Normal 45-117 [facility] Comment on above: Performed By: #### L 500.4100, L500.4050, L100.0100, L509.6000, L501.9520, L3100.5310 #### [facility] [address] [place], [address] ALT [Catalytic activity/Vol] 136 U/L High 16-61 [facility] Comment on above: Performed By: #### L 500.4100, L500.4050, L100.0100, L509.6000, L501.9520, L3100.5310 #### [facility] [address] [place], [address] AST [Catalytic activity/Vol] 111 U/L High 15-37 [facility] Comment on above: Performed By: #### L 500.4100, L500.4050, L100.0100, L509.6000, L501.9520, L3100.5310 #### [facility] [address] [place], [address] Bilirubin [Mass/Vol] 1.60 mg/dL High 0.20-1.00 [facility] Comment on above: Result Comment: For patients on eltrombopag therapy, use of Dimension [place] TBIL is not recommended. Performed By: #### L 500.4100, L500.4050, L100.0100, L509.6000, L501.9520, L3100.5310 #### [facility] [address] [place], [address] BUN/CRE 10.6 RATIO Normal 10-20 [facility] Comment on above: Performed By: #### L 500.4100, L500.4050, L100.0100, L509.6000, L501.9520, L3100.5310 #### [facility] [address] [place], [address] CA,Total 9.6 mg/dL Normal 8.5-10.1 [facility] Comment on above: Performed By: #### L 500.4100, L500.4050, L100.0100, L509.6000, L501.9520, L3100.5310 #### [facility] [address] [place], [address] Chloride [Moles/Vol] 100 mmol/L Normal 98-107 [facility] Comment on above: Performed By: #### L 500.4100, L500.4050, L100.0100, L509.6000, L501.9520, L3100.5310 #### [facility] [address] [place], [address] CO2 [Moles/Vol] 23.0 mmol/L Normal 21.0-32.0 [facility] Comment on above: Performed By: #### L 500.4100, L500.4050, L100.0100, L509.6000, L501.9520, L3100.5310 #### [facility] [address] [place], [address] Creatinine [Mass/Vol] 1.04 mg/dL Normal 0.70-1.30 [facility] Comment on above: Result Comment: The validity of the calculated GFR GFRAA in patients over 70 years has not been determined. Clinical correlation is essential. Performed By: #### L 500.4100, L500.4050, L100.0100, L509.6000, L501.9520, L3100.5310 #### [facility] [address] [place], [address] EST GFR - AA 109 mL/min Normal >60 [facility] Comment on above: Result Comment: Afri can Micronesian GFR Calc Performed By: #### L 500.4100, L500.4050, L100.0100, L509.6000, L501.9520, L3100.5310 #### [facility] [address] [place], [address] GAP 14 Normal 5-15 [facility] Comment on above: Performed By: #### L 500.4100, L500.4050, L100.0100, L509.6000, L501.9520, L3100.5310 #### [facility] [address] [place], [address] GFR/1.73 sq M.predicted among non-blacks MDRD (S/P/Bld) [Vol rate/Area] 90 mL/min/{1.73_m2} Normal >60 [facility] Comment on above: Result Comment: Non- GFR Calc Performed By: #### L 500.4100, L500.4050, L100.0100, L509.6000, L501.9520, L3100.5310 #### [facility] [address] [place], [address] Globulin (S) [Mass/Vol] 3.8 g/dL Normal 2.2-4.2 [facility] Comment on above: Performed By: #### L 500.4100, L500.4050, L100.0100, L509.6000, L501.9520, L3100.5310 #### [facility] [address] [place], [address] Glucose [Mass/Vol] 122 mg/dL High 74-106 [facility] Comment on above: Result Comment: Fast ing Glucose result from 100 to 125 mg/dL suggests IMPAIRED HOMEOSTASIS per A.D.A. criteria. Performed By: #### L 500.4100, L500.4050, L100.0100, L509.6000, L501.9520, L3100.5310 #### [facility] [address] [place], [address] Potassium [Moles/Vol] 3.7 mmol/L Normal 3.5-5.1 [facility] Comment on above: Performed By: #### L 500.4100, L500.4050, L100.0100, L509.6000, L501.9520, L3100.5310 #### [facility] [address] [place], [address] Sodium [Moles/Vol] 138 mmol/L Normal 136-145 [facility] Comment on above: Performed By: #### L 500.4100, L500.4050, L100.0100, L509.6000, L501.9520, L3100.5310 #### [facility] [address] [place], [address] T PROT 7.8 g/dL Normal 6.4-8.2 [facility] Comment on above: Performed By: #### L 500.4100, L500.4050, L100.0100, L509.6000, L501.9520, L3100.5310 #### [facility] [address] [place], [address] Urea nitrogen [Mass/Vol] 11 mg/dL Normal 7-18 [facility] Comment on above: Performed By: #### L 500.4100, L500.4050, L100.0100, L509.6000, L501.9520, L3100.5310 #### [facility] [address] [place], [address] Lipid Profileon 06-19-2024 Cholesterol [Mass/Vol] 198 mg/dL Normal 200 [facility] Comment on above: Result Comment: <200 mg/dL Desirable 200-240 mg/dL Borderline >240 mg/dL High Risk Performed By: #### L 500.4100, L500.4050, L100.0100, L509.6000, L501.9520, L3100.5310 #### [facility] [address] [place], [address] Cholesterol in HDL [Mass/Vol] 93 mg/dL Normal [facility] Comment on above: Result Comment: The drugs N-Acetylcysteine and Metamizole may falsely depress this assay. Reference Range HDL <40 mg/dL Low HDL Cholesterol HDL >or= 60 mg/dL High HDL Cholesterol Performed By: #### L 500.4100, L500.4050, L100.0100, L509.6000, L501.9520, L3100.5310 #### [facility] [address] [place], [address] Cholesterol in LDL [Mass/Vol] 78 mg/dL Normal 0-130 [facility] Comment on above: Performed By: #### L 500.4100, L500.4050, L100.0100, L509.6000, L501.9520, L3100.5310 #### [facility] [address] [place], [address] Cholesterol in VLDL [Mass/Vol] 27 mg/dL Normal 5-40 [facility] Comment on above: Performed By: #### L 500.4100, L500.4050, L100.0100, L509.6000, L501.9520, L3100.5310 #### [facility] [address] [place], [address] Triglyceride [Mass/Vol] 136 mg/dL Normal [facility] Comment on above: Result Comment: The drugs N-Acetylcysteine and Metamizole may falsely depress this assay. Serum Triglycerides Reference Interval Normal <150 mg/dL Borderline high 150 - 199 mg/dL High 200 - 499 mg/dL Very High > or = 500 mg/dL Performed By: #### L 500.4100, L500.4050, L100.0100, L509.6000, L501.9520, L3100.5310 #### [facility] [address] [place], [address] Thyroid Stim Hormone (TSH)on 06-19-2024 TSH 1.330 uIU/mL Normal 0.358-3.740 [facility] Comment on above: Performed By: #### L 500.4100, L500.4050, L100.0100, L509.6000, L501.9520, L3100.5310 #### [facility] [address] [place], [address] Endocrinology Visit Reporton 06-15-2024 Endocrinology Visit Report [facility] [facility] [place], [place] [address] OFFICE VISIT Date of Service: 06/15/24 MR#: [id number] Acct: [id number] Name: JORGE HOLLIS Rep #: [id number] 1 : 1995 Provider: Jessica Chambers Age/Sex: 29/M Location: [facility] Status: Signed Intake Vital Signs 12/16/23 14:56 [...] Masoud Harris (more content not included)... Normal [facility] Basic metabolic 2000 panelon 03-02-2024 Anion gap [Moles/Vol] 17 mmol/L [facility] Comment on above: Performed By: #### 5 7021-8 #### LISSETTE NEAL ([id number]) [facility] ([facility]) [address] [place] [address] Performed By: #### 2 4339-4 #### LISSETTE NEAL ([id number]) [facility] ([facility]) [address] [place] [address] Calcium [Mass/Vol] 8.9 mg/dL Normal 8.6-10.3 [facility] Comment on above: Performed By: #### 5 7021-8 #### LISSETTE NEAL ([id number]) [facility] ([facility]) [address] [place] [address] Chloride [Moles/Vol] 104 mmol/L Normal 98-107 [facility] Comment on above: Performed By: #### 5 7021-8 #### LISSETTE NEAL ([id number]) [facility] ([facility]) [address] [place] [address] CO2 [Moles/Vol] 17 mmol/L Low 21-32 [facility] Comment on above: Performed By: #### 5 7021-8 #### LISSETTE NEAL ([id number]) [facility] ([facility]) [address] [place] [address] Performed By: #### 2 4339-4 #### LISSETTE NEAL ([id number]) [facility] ([facility]) [address] [place] [address] Creatinine [Mass/Vol] 0.94 mg/dL Normal 0.50-1.30 [facility] Comment on above: Performed By: #### 5 7021-8 #### LISSETTE NEAL ([id number]) [facility] ([facility]) [address] [place] [address] Glucose [Mass/Vol] 188 mg/dL High 74-99 [facility] Comment on above: Performed By: #### 5 7021-8 #### LISSETTE NEAL ([id number]) [facility] ([facility]) [address] [place] [address] Potassium [Moles/Vol] 4.1 mmol/L Normal 3.5-5.3 [facility] Comment on above: Performed By: #### 5 7021-8 #### LISSETET NEAL ([id number]) [facility] ([facility]) [address] [place] [address] Sodium [Moles/Vol] 134 mmol/L Low 136-145 [facility] Comment on above: Performed By: #### 5 7021-8 #### LISSETTE NEAL ([id number]) [facility] ([facility]) [address] [place] [address] Urea nitrogen [Mass/Vol] 10 mg/dL Normal 6-23 [facility] Comment on above: Performed By: #### 5 7021-8 #### LISSETTE NEAL ([id number]) [facility] ([facility]) [address] [place] [address] 36014 eGFR - PINF [facility] Comment on above: Calculations of luis felipe mated GFR are performed using the 2020 CKD-EPI Study Refit equation without the race variable for the IDMS-Traceable creatinine methods. https://jasn.asnjournals.org/content//ASN.81551 88420 Interpretation and review of laboratory results Abnormal [facility] Calcium [Mass/Vol] 8.7 mg/dL 8.6 - 10. 3 mg/dL [facility] Chloride [Moles/Vol] 106 mmol/L 98 - 10 7 mmol/L [facility] Creatinine [Mass/Vol] 0.97 mg/dL 0.50 - 1.30 mg/dL [facility] eGFR - PINF [facility] Comment on above: Calculations of luis felipe mated GFR are performed using the 2020 CKD-EPI Study Refit equation without the race variable for the IDMS-Traceable creatinine methods. https://jasn.asnjournals.org/content//ASN.29012 86422 Glucose [Mass/Vol] 115 mg/dL High 74 - 99 mg/dL [facility] Interpretation and review of laboratory results Abnormal [facility] Potassium [Moles/Vol] 3.8 mmol/L 3.5 - 5.3 mmol/L [facility] Sodium [Moles/Vol] 136 mmol/L 136 - 145 mmol/L [facility] Urea nitrogen [Mass/Vol] 12 mg/dL 6 - 23 mg/dL [facility] Calcium [Mass/Vol] 8.7 mg/dL Normal 8.6-10.3 [facility] Comment on above: Performed By: #### 2 4339-4 #### LISSETTE NEAL ([id number]) [facility] ([facility]) [address] [place] [address] Chloride [Moles/Vol] 106 mmol/L Normal 98-107 [facility] Comment on above: Performed By: #### 2 4339-4 #### LISSETTE NEAL ([id number]) [facility] ([facility]) [facility] [place] [address] Creatinine [Mass/Vol] 0.97 mg/dL Normal 0.50-1.30 [facility] Comment on above: Performed By: #### 2 4339-4 #### LISSETTE NEAL ([id number]) [facility] ([facility]) [address] [place] [address] GFR/1.73 sq M.predicted MDRD (S/P/Bld) [Vol rate/Area] mL/min/{1.73_m2} Normal >60 [facility] Comment on above: Result Comment: Calc ulations of estimated GFR are performed using the 2020 CKD-EPI Study Refit equation without the race variable for the IDMS-Traceable creatinine methods. https://jasn.asnjournals.org/content//ASN.61004 74574 Performed By: #### 5 7021-8 #### LISSETTE NEAL ([id number]) [facility] ([facility]) [address] [place] [address] Performed By: #### 2 4339-4 #### LISSETTE NEAL ([id number]) [facility] ([facility]) [address] [place] [address]662 Glucose [Mass/Vol] 115 mg/dL High 74-99 [facility] Comment on above: Performed By: #### 2 4339-4 #### LISSETTE NEAL ([id number]) [facility] ([facility]) [address] [place] [address] Potassium [Moles/Vol] 3.8 mmol/L Normal 3.5-5.3 [facility] Comment on above: Performed By: #### 2 4339-4 #### LISSETTE NEAL ([id number]) [facility] ([facility]) [address] [place] [address] Sodium [Moles/Vol] 136 mmol/L Normal 136-145 [facility] Comment on above: Performed By: #### 2 4339-4 #### LISSETTE NEAL ([id number]) [facility] ([facility]) [address] [place] [address]1999 Urea nitrogen [Mass/Vol] 12 mg/dL Normal 6-23 [facility] Comment on above: Performed By: #### 2 4339-4 #### LISSETTE NEAL ([id number]) [facility] ([facility]) [address] [place] [address]76 Beta hydroxybutyrate [Mass o r moles/Vol]on 03-02-2024 Beta hydroxybutyrate [Moles/Vol] 3.52 mmol/L High 0.02 - 0.27 mmol/L [facility] Interpretation and review of laboratory results Abnormal [facility] The beta-hydroxybutyrate test performance characteristics have been validated by [facility]. This test has not been approved by the FDA; however, such approval is not necessary. [facility] Beta hydroxybutyrate [Moles/Vol] 3.52 mmol/L High 0.02-0.27 [facility] Comment on above: Order Comment: The b eta-hydroxybutyrate test performance characteristics have been validated by [facility]. This test has not been approved by the FDA; however, such approval is not necessary. Performed By: #### 2 4339-4 #### MCLAUGHLIN VAL ([id number]) [facility] ([facility]) [address] [place] [address] ECG 12 LeadOrdered By: Kaylan Rubio on 03-02-2024 Atrial Rate 139 BPM [facility] Work Phone: [phone] P [place] 56 degrees [facility] Work Phone: [phone] P Offset 202 ms [facility] Work Phone: [phone] P Onset 153 ms [facility] Work Phone: [phone] CA Interval 130 ms [facility] Work Phone: [phone] Q Onset 218 ms [facility] Work Phone: [phone] QRS Count 23 beats [facility] Work Phone: [phone] QRS Duration 78 ms [facility] Work Phone: [phone] QT Interval 296 ms [facility] Work Phone: [phone] QTC Calculation(Bazett) 450 ms [facility] Work Phone: [phone] QTC Fredericia 391 ms [facility] Work Phone: [phone] R [place] 65 degrees [facility] Work Phone: [phone] T [place] 48 degrees [facility] Work Phone: [phone] T Offset 366 ms [facility] Work Phone: [phone] Ventricular Rate 139 BPM [facility] Work Phone: [facility] Work Phone: ECG 12 Leadon 03-02-2024 Sinus tachycardia Anterolateral infarct , age undetermined Abnormal ECG No previous ECGs available See ED provider note for full interpretation and clinical correlation Confirmed by Kaylan Rubio ([id number]) on 03/02/2024 11:21:20 AM Kaylan Rodriguez PA-C - 03/02/2024 Sinus tachycardia Anterolateral infarct , age undetermined Abnormal ECG No previous ECGs available See ED provider note for full interpretation and clinical correlation Confirmed by Kaylan Rubio ([id number]) on 03/02/2024 11:21:20 AM [facility] Work Phone: Glucose Test strip manual (B ld) [Mass/Vol]on 03-02-2024 Glucose [Mass/Vol] 191 mg/dL High 74 - 99 mg/dL [facility] Interpretation and review of laboratory results Abnormal [facility] Glucose [Mass/Vol] 191 mg/dL High 74-99 [facility] Comment on above: Performed By: #### 2 4339-4 #### LISSETTE NEAL ([id number]) [facility] ([facility]) [address] [place] [address]6214 Glucose [Mass/Vol] 224 mg/dL High 74 - 99 mg/dL [facility] Interpretation and review of laboratory results Abnormal [facility] Glucose [Mass/Vol] 224 mg/dL High 74-99 [facility] Comment on above: Performed By: #### 2 4339-4 #### LISSETTE NEAL ([id number]) [facility] ([facility]) [address] [place] [address]13 Glucose [Mass/Vol] 238 mg/dL High 74 - 99 mg/dL [facility] Interpretation and review of laboratory results Abnormal [facility] Glucose [Mass/Vol] 238 mg/dL High 74-99 [facility] Comment on above: Performed By: #### 2 4339-4 #### LISSETTE NEAL ([id number]) [facility] ([facility]) [address] [place] [address] 52968 Glucose [Mass/Vol] 178 mg/dL High 74 - 99 mg/dL [facility] Interpretation and review of laboratory results Abnormal [facility] Glucose [Mass/Vol] 178 mg/dL High 74-99 [facility] Comment on above: Performed By: #### 2 4339-4 #### LISSETTE NEAL ([id number]) [facility] ([facility]) [address] [place] [address] 93279 Glucose [Mass/Vol] 129 mg/dL High 74 - 99 mg/dL [facility] Interpretation and review of laboratory results Abnormal [facility] Glucose [Mass/Vol] 129 mg/dL High 74-99 [facility] Comment on above: Performed By: #### 2 4339-4 #### LISSETTE NEAL ([id number]) [facility] ([facility]) [address] [place] [address] 36009 Glucose [Mass/Vol] 93 mg/dL 74 - 99 mg/dL [facility] Interpretation and review of laboratory results Normal [facility] Glucose [Mass/Vol] 93 mg/dL Normal 74-99 [facility] Comment on above: Performed By: #### 2 4339-4 #### LISSETTE NEAL ([id number]) [facility] ([facility]) [address] [place] [address] 74261 Glucose [Mass/Vol] 86 mg/dL 74 - 99 mg/dL [facility] Interpretation and review of laboratory results Normal [facility] Glucose [Mass/Vol] 86 mg/dL Normal 74-99 [facility] Comment on above: Performed By: #### 2 4339-4 #### LISSETTE NEAL ([id number]) [facility] ([facility]) [address] [place] [address] 27500 Glucose [Mass/Vol] 106 mg/dL High 74 - 99 mg/dL [facility] Interpretation and review of laboratory results Abnormal [facility] Glucose [Mass/Vol] 106 mg/dL High 74-99 [facility] Comment on above: Performed By: #### 2 341-6 ####MCLAUGHLIN VAL ([id number])[facility] ([facility])[address] [place] [address] HbA1c (Bld) [Mass fraction]o n 03-02-2024 Average glucose Estimated from glycated hemoglobin (Bld) [Mass/Vol] 137 mg/dL Not Established [facility] Interpretation and review of laboratory results Abnormal [facility] Diagnosis of Diabetes-Adults Non-Diabetic: < or = 5.6% Increased risk for developing diabetes: 5.7-6.4% Diagnostic of diabetes: > or = 6.5% [facility] Hemoglobin A1con 03-02-2024 HbA1c (Bld) [Mass fraction] 6.4 % High See comment [facility] Lavender Topon 03-02-2024 Extra Tube Hold for add-ons. [facility] Comment on above: Auto resulted. [facility] SST TOPon 03-02-2024 Extra Tube Hold for add-ons. [facility] Comment on above: Auto resulted. [facility] Beta hydroxybutyrate [Mass o r moles/Vol]on 03-01-2024 Beta hydroxybutyrate [Moles/Vol] mmol/L High 0.02 - 0.27 mmol/L [facility] Interpretation and review of laboratory results Abnormal [facility] The beta-hydroxybutyrate test performance characteristics have been validated by [facility]. This test has not been approved by the FDA; however, such approval is not necessary. [facility] Beta hydroxybutyrate [Moles/Vol] >24.00 High 0.02-0.27 [facility] Comment on above: Order Comment: The b eta-hydroxybutyrate test performance characteristics have been validated by [facility]. This test has not been approved by the FDA; however, such approval is not necessary. Performed By: #### 3 5255-9 #### MCLAUGHLIN VAL ([id number]) [facility] ([facility]) [facility] [place] [address] CBC W Auto Differential pane l (Bld)on 03-01-2024 Basophils (Bld) [#/Vol] 0.02 10*3/uL [facility] Basophils/100 WBC (Bld) 0.2 % 0.0 - 2.0 % [facility] Eosinophils (Bld) [#/Vol] 0.00 10*3/uL [facility] Eosinophils/100 WBC (Bld) 0.0 % 0.0 - 6.0 % [facility] Erythrocyte distribution width (RBC) [Ratio] 12.5 % 11.5 - 14.5 % [facility] Hematocrit (Bld) [Volume fraction] 45.7 % 41.0 - 52.0 % [facility] Hemoglobin (Bld) [Mass/Vol] 15.6 g/dL 13.5 - 17.5 g/dL [facility] Immature granulocytes (Bld) [#/Vol] 0.06 10*3/uL [facility] Immature granulocytes/100 WBC (Bld) 0.6 % 0.0 - 0.9 % [facility] Comment on above: Immature Granulocyte Count (IG) includes promyelocytes, myelocytes and metamyelocytes but does not include bands. Percent differential counts (%) should be interpreted in the context of the absolute cell counts (cells/UL). Interpretation and review of laboratory results Abnormal [facility] Lymphocytes (Bld) [#/Vol] 0.91 10*3/uL Low [facility] Lymphocytes/100 WBC (Bld) 8.5 % 13.0 - 44.0 % [facility] MCH (RBC) [Entitic mass] 31.1 pg 26.0 - 34.0 pg [facility] MCHC (RBC) [Mass/Vol] 34.1 g/dL 32.0 - 36.0 g/dL [facility] MCV (RBC) [Entitic vol] 91 fL 80 - 100 fL [facility] Monocytes (Bld) [#/Vol] 1.00 10*3/uL [facility] Monocytes/100 WBC (Bld) 9.4 % 2.0 - 10.0 % [facility] Neutrophils (Bld) [#/Vol] 8.69 10*3/uL High [facility] Comment on above: Percent differential counts (%) should be interpreted in the context of the absolute cell counts (cells/uL). Neutrophils/100 WBC (Bld) 81.3 % 40.0 - 80.0 % [facility] Nucleated RBC/100 WBC (Bld) [Ratio] 0.0 % [facility] Platelets (Bld) [#/Vol] 186 10*3/uL [facility] RBC (Bld) [#/Vol] 5.01 10*6/uL [facility] WBC (Bld) [#/Vol] 10.7 10*3/uL [facility] Basophils (Bld) [#/Vol] 0.02 x10*3/uL Normal 0.00-0.10 [facility] Comment on above: Performed By: #### 5 7021-8 #### LISSETTE NEAL ([id number]) [facility] ([facility]) [address] [place] [address] 56729 Basophils/100 WBC (Bld) 0.2 % Normal 0.0-2.0 [facility] Comment on above: Performed By: #### 5 7021-8 #### LISSETTE NEAL ([id number]) [facility] ([facility]) [address] [place] [address] 45580 Eosinophils (Bld) [#/Vol] 0.00 x10*3/uL Normal 0.00-0.70 [facility] Comment on above: Performed By: #### 5 7021-8 #### LISSETTE NEAL ([id number]) [facility] ([facility]) [address] [place] [address] 97158 Eosinophils/100 WBC (Bld) 0.0 % Normal 0.0-6.0 [facility] Comment on above: Performed By: #### 5 7021-8 #### LISSETTE NEAL ([id number]) [facility] ([facility]) [address] [place] [address] Erythrocyte distribution width (RBC) [Ratio] 12.5 % Normal 11.5-14.5 [facility] Comment on above: Performed By: #### 5 7021-8 #### LISSETTE NEAL ([id number]) [facility] ([facility]) [address] [place] [address] Hematocrit (Bld) [Volume fraction] 45.7 % Normal 41.0-52.0 [facility] Comment on above: Performed By: #### 5 7021-8 #### LISSETTE NEAL ([id number]) [facility] ([facility]) [address] [place] [address] Hemoglobin (Bld) [Mass/Vol] 15.6 g/dL Normal 13.5-17.5 [facility] Comment on above: Performed By: #### 5 7021-8 #### LISSETTE NEAL ([id number]) [facility] ([facility]) [address] [place] [address] Immature granulocytes (Bld) [#/Vol] 0.06 x10*3/uL Normal 0.00-0.70 [facility] Comment on above: Performed By: #### 5 7021-8 #### LISSETTE NEAL ([id number]) [facility] ([facility]) [address] [place] [address] Immature granulocytes/100 WBC (Bld) 0.6 % Normal 0.0-0.9 [facility] Comment on above: Result Comment: Suzanne ture Granulocyte Count (IG) includes promyelocytes, myelocytes and metamyelocytes but does not include bands. Percent differential counts (%) should be interpreted in the context of the absolute cell counts (cells/UL). Performed By: #### 5 7021-8 #### LISSETTE NEAL ([id number]) [facility] ([facility]) [address] [place] [address] Lymphocytes (Bld) [#/Vol] 0.91 x10*3/uL Low 1.20-4.80 [facility] Comment on above: Performed By: #### 5 7021-8 #### LISSETTE NEAL ([id number]) [facility] ([facility]) [address] [place] [address] 87584 Lymphocytes/100 WBC (Bld) 8.5 % Normal 13.0-44.0 [facility] Comment on above: Performed By: #### 5 7021-8 #### LISSETTE NEAL ([id number]) [facility] ([facility]) [address] [place] [address] 16979 MCH (RBC) [Entitic mass] 31.1 pg Normal 26.0-34.0 [facility] Comment on above: Performed By: #### 5 7021-8 #### LISSETTE NEAL ([id number]) [facility] ([facility]) [address] [place] [address] 16048 MCHC (RBC) [Mass/Vol] 34.1 g/dL Normal 32.0-36.0 [facility] Comment on above: Performed By: #### 5 7021-8 #### LISSETTE NEAL ([id number]) [facility] ([facility]) [address] [place] [address] 73385 MCV (RBC) [Entitic vol] 91 fL Normal 80-100 [facility] Comment on above: Performed By: #### 5 7021-8 #### LISSETTE NEAL ([id number]) [facility] ([facility]) [address] [place] [address] 83600 Monocytes (Bld) [#/Vol] 1.00 x10*3/uL Normal 0.10-1.00 [facility] Comment on above: Performed By: #### 5 7021-8 #### LISSETTE NEAL ([id number]) [facility] ([facility]) [address] [place] [address] 70646 Monocytes/100 WBC (Bld) 9.4 % Normal 2.0-10.0 [facility] Comment on above: Performed By: #### 5 7021-8 #### LISSETTE NEAL ([id number]) [facility] ([facility]) [address] [place] [address] 88017 Neutrophils (Bld) [#/Vol] 8.69 x10*3/uL High 1.20-7.70 [facility] Comment on above: Result Comment: Perc ent differential counts (%) should be interpreted in the context of the absolute cell counts (cells/uL). Performed By: #### 5 7021-8 #### LISSETTE NEAL ([id number]) [facility] ([facility]) [address] [place] [address] 26496 Neutrophils/100 WBC (Bld) 81.3 % Normal 40.0-80.0 [facility] Comment on above: Performed By: #### 5 7021-8 #### LISSETTE NEAL ([id number]) [facility] ([facility]) [address] [place] [address] 67104 Nucleated RBC/100 WBC (Bld) [Ratio] 0.0 /100 WBCs Normal 0.0-0.0 [facility] Comment on above: Performed By: #### 5 7021-8 #### LISSETTE NEAL ([id number]) [facility] ([facility]) [address] [place] [address] 69693 Platelets (Bld) [#/Vol] 186 x10*3/uL Normal 150-450 [facility] Comment on above: Performed By: #### 5 7021-8 #### LISSETTE NEAL ([id number]) [facility] ([facility]) [address] [place] [address] 68292 RBC (Bld) [#/Vol] 5.01 x10*6/uL Normal 4.50-5.90 [facility] Comment on above: Performed By: #### 5 7021-8 #### LISSETTE NEAL ([id number]) [facility] ([facility]) [address] [place] [address] 75656 WBC (Bld) [#/Vol] 10.7 x10*3/uL Normal 4.4-11.3 [facility] Comment on above: Performed By: #### 5 7021-8 #### LISSETTE NEAL ([id number]) [facility] ([facility]) [address] [place] [address] CT ABDOMEN PELVIS W IV CONTR Andreea 03-01-2024 CT ABDOMEN PELVIS W IV CONTRAST Interpreted By: Pierce Boothe, STUDY: CT ABDOMEN PELVIS W IV CONTRAST; 03/01/2024 7:54 pm INDICATION: Signs/Symptoms:abdomina l pain. COMPARISON: None. ACCESSION NUMBER(S): [id number] ORDERING CLINICIAN: MONA RODRIGUEZ TECHNIQUE: CT of [...] Pierce Boothe 03/01/2024 8:29 PM Dictation workstation: [id number] [facility] CT Abdomen and Pelvis W cont rast Keisha 03-01-2024 1. 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 Hepatic steatosis. No gallstones. No biliary duct dilatation. Mild diverticulosis. 3. Mildly enlarged prostate gland. Distended urinary bladder. MACRO: None Signed by: Pierce Boothe 03/01/2024 8:29 PM Dictation workstation: [id number] MMODAL Interpreted By: Pierce Boothe, STUDY: CT ABDOMEN PELVIS W IV CONTRAST; 03/01/2024 7:54 pm INDICATION: Signs/Symptoms:abdomina l pain. COMPARISON: None. ACCESSION NUMBER(S): [id number] ORDERING CLINICIAN: MONA RODRIGUEZ TECHNIQUE: CT of [...] Signs/Symptoms:abdomina l pain. COMPARISON: None. ACCESSION NUMBER(S): [id number] ORDERING CLINICIAN: MONA RODRIGUEZ TECHNIQUE: CT of [...] Pierce Boothe 03/01/2024 8:29 PM Dictation workstation: [id number] [facility] Work Phone: Radiology Study observation (narrative) [facility] Work Phone: CT Abdomen and Pelvis W cont rast IVOrdered By: Pierce Boothe on 03-01-2024 [facility] Work Phone: Comprehensive metabolic 2000 panelon 03-01-2024 Albumin BCP dye [Mass/Vol] 4.4 g/dL 3.4 - 5.0 g/dL [facility] ALP [Catalytic activity/Vol] 74 U/L 33 - 120 U/L [facility] ALT With P-5'-P [Catalytic activity/Vol] 27 U/L 10 - 52 U/L [facility] Comment on above: Patients treated wit h Sulfasalazine may generate falsely decreased results for ALT. Anion gap [Moles/Vol] 23 mmol/L High 10 - 2 0 mmol/L [facility] AST With P-5'-P [Catalytic activity/Vol] 23 U/L 9 - 39 U/L [facility] Bilirubin [Mass/Vol] 1.0 mg/dL 0.0 - 1 .2 mg/dL [facility] Calcium [Mass/Vol] 8.6 mg/dL 8.6 - 10. 3 mg/dL [facility] Chloride [Moles/Vol] 106 mmol/L 98 - 10 7 mmol/L [facility] CO2 [Moles/Vol] 12 mmol/L Low 21 - 32 mmol/L [facility] Creatinine [Mass/Vol] 1.11 mg/dL 0.50 - 1.30 mg/dL [facility] eGFR - PINF [facility] Comment on above: Calculations of luis felipe mated GFR are performed using the 2020 CKD-EPI Study Refit equation without the race variable for the IDMS-Traceable creatinine methods. https://jasn.asnjournals.org/content//ASN.94058 00858 Glucose [Mass/Vol] 185 mg/dL High 74 - 99 mg/[facility] Interpretation and review of laboratory results Abnormal [facility] Potassium [Moles/Vol] 4.7 mmol/L 3.5 - 5.3 mmol/L [facility] Protein [Mass/Vol] 6.9 g/dL 6.4 - 8.2 g/dL [facility] Sodium [Moles/Vol] 136 mmol/L 136 - 145 mmol/L [facility] Urea nitrogen [Mass/Vol] 15 mg/dL 6 - 23 mg/dL [facility] Albumin BCP dye [Mass/Vol] 4.4 g/dL Normal 3.4-5.0 [facility] Comment on above: Performed By: #### 2 4323-8 ####LISSETTE NEAL ([id number])[facility] ([facility])[address] [place] [address] 11728 ALP [Catalytic activity/Vol] 74 U/L Normal 33-120 [facility] Comment on above: Performed By: #### 2 4323-8 ####LISSETTE NEAL ([id number])[facility] ([facility])[address] [place] [address] 01017 ALT With P-5'-P [Catalytic activity/Vol] 27 U/L Normal 10-52 [facility] Comment on above: Result Comment: Marilu ents treated with Sulfasalazine may generate falsely decreased results for ALT. Performed By: #### 2 4323-8 ####LISSETTE NEAL ([id number])[facility] ([facility])[address] [place] [address] 24268 Anion gap [Moles/Vol] 23 mmol/L High 10-20 [facility] Comment on above: Performed By: #### 2 4323-8 ####LISSETTE NEAL ([id number])[facility] ([facility])[address] [place] [address] 39450 AST With P-5'-P [Catalytic activity/Vol] 23 U/L Normal 9-39 [facility] Comment on above: Performed By: #### 2 4323-8 ####LISSETTE NEAL ([id number])[facility] ([facility])[address] [place] [address] 12656 Bilirubin [Mass/Vol] 1.0 mg/dL Normal 0.0-1.2 [facility] Comment on above: Performed By: #### 2 4323-8 ####LISSETTE NEAL ([id number])[facility] ([facility] [place] [address] Calcium [Mass/Vol] 8.6 mg/dL Normal 8.6-10.3 [facility] Comment on above: Performed By: #### 2 4323-8 ####LISSETTE NEAL ([id number])[facility] ([facility])[address] [place] [address] 76604 Chloride [Moles/Vol] 106 mmol/L Normal 98-107 [facility] Comment on above: Performed By: #### 2 4323-8 ####LISSETTE NEAL ([id number])[facility] ([facility])[address] [place] [address] 05815 CO2 [Moles/Vol] 12 mmol/L Low 21-32 [facility] Comment on above: Performed By: #### 2 4323-8 ####LISSETTE NEAL ([id number])[facility] ([facility])[address] [place] [address] 10784 Creatinine [Mass/Vol] 1.11 mg/dL Normal 0.50-1.30 [facility] Comment on above: Performed By: #### 2 4323-8 ####LISSETTE NEAL ([id number])[facility] ([facility])[address] [place] [address] 85914 GFR/1.73 sq M.predicted MDRD (S/P/Bld) [Vol rate/Area] mL/min/{1.73_m2} Normal >60 [facility] Comment on above: Result Comment: Calc ulations of estimated GFR are performed using the 2020 CKD-EPI Study Refit equation without the race variable for the IDMS-Traceable creatinine methods. https://jasn.asnjournals.org/content//ASN.43487 04050 Performed By: #### 2 4323-8 ####LISSETTE NEAL ([id number])[facility] ([facility])[address] [place] [address] 83378 Glucose [Mass/Vol] 185 mg/dL High 74-99 [facility] Comment on above: Performed By: #### 2 4323-8 ####LISSETTE NEAL ([id number])[facility] ([facility])[address] [place] [address] 46121 Potassium [Moles/Vol] 4.7 mmol/L Normal 3.5-5.3 [facility] Comment on above: Performed By: #### 2 4323-8 ####LISSETTE NEAL ([id number])[facility] ([facility])[address] [place] [address] 19142 Protein [Mass/Vol] 6.9 g/dL Normal 6.4-8.2 [facility] Comment on above: Performed By: #### 2 4323-8 ####LISSETTE NEAL ([id number])[facility] ([facility])[address] [place] [address] 14749 Sodium [Moles/Vol] 136 mmol/L Normal 136-145 [facility] Comment on above: Performed By: #### 2 4323-8 ####LISSETTE NEAL ([id number])[facility] ([facility])[address] [place] [address] 22730 Urea nitrogen [Mass/Vol] 15 mg/dL Normal 6-23 [facility] Comment on above: Performed By: #### 2 4323-8 ####LISSETTE NEAL ([id number])[facility] ([facility])[address] [place] [address] 49441 Albumin BCP dye [Mass/Vol] 5.0 g/dL 3.4 - 5.0 g/dL [facility] ALP [Catalytic activity/Vol] 89 U/L 33 - 120 U/L [facility] ALT With P-5'-P [Catalytic activity/Vol] 34 U/L 10 - 52 U/L [facility] Comment on above: Patients treated wit h Sulfasalazine may generate falsely decreased results for ALT. Anion gap [Moles/Vol] 33 mmol/L High 10 - 2 0 mmol/L [facility] AST With P-5'-P [Catalytic activity/Vol] 26 U/L 9 - 39 U/L [facility] Bilirubin [Mass/Vol] 1.3 mg/dL High 0.0 - 1 .2 mg/dL [facility] Calcium [Mass/Vol] 9.9 mg/dL 8.6 - 10. 3 mg/dL [facility] Chloride [Moles/Vol] 99 mmol/L 98 - 10 7 mmol/L [facility] CO2 [Moles/Vol] 10 mmol/L Critically low 21 - 32 mmol/L [facility] Creatinine [Mass/Vol] 1.42 mg/dL High 0.50 - 1.30 mg/dL [facility] GFR/1.73 sq M.predicted among non-blacks MDRD (S/P/Bld) [Vol rate/Area] 69 mL/min/{1.73_m2} - PINF [facility] Comment on above: Calculations of luis felipe mated GFR are performed using the 2020 CKD-EPI Study Refit equation without the race variable for the IDMS-Traceable creatinine methods. https://jasn.asnjournals.org/content/early/ASN.38709 99174 Glucose [Mass/Vol] 178 mg/dL High 74 - 99 mg/dL [facility] Potassium [Moles/Vol] 4.5 mmol/L 3.5 - 5.3 mmol/L [facility] Protein [Mass/Vol] 8.1 g/dL 6.4 - 8.2 g/dL [facility] Sodium [Moles/Vol] 137 mmol/L 136 - 145 mmol/L [facility] Urea nitrogen [Mass/Vol] 19 mg/dL 6 - 23 mg/dL [facility] Albumin BCP dye [Mass/Vol] 5.0 g/dL Normal 3.4-5.0 [facility] Comment on above: Performed By: #### 2 4323-8 #### LISSETTE NEAL ([id number]) [facility] ([facility]) [address] [place] [address] ALP [Catalytic activity/Vol] 89 U/L Normal 33-120 [facility] Comment on above: Performed By: #### 2 4323-8 #### LISSETTE NEAL ([id number]) [facility] ([facility]) [address] [place] [address] ALT With P-5'-P [Catalytic activity/Vol] 34 U/L Normal 10-52 [facility] Comment on above: Result Comment: Marilu ents treated with Sulfasalazine may generate falsely decreased results for ALT. Performed By: #### 2 4323-8 #### LISSETTE NEAL ([id number]) [facility] ([facility]) [address] [place] [address] Anion gap [Moles/Vol] 33 mmol/L High 10-20 [facility] Comment on above: Performed By: #### 2 4323-8 #### LISSETTE NEAL ([id number]) [facility] ([facility]) [address] [place] [address] AST With P-5'-P [Catalytic activity/Vol] 26 U/L Normal 9-39 [facility] Comment on above: Performed By: #### 2 4323-8 #### LISSETTE NEAL ([id number]) [facility] ([facility]) [address] [place] [address] Bilirubin [Mass/Vol] 1.3 mg/dL High 0.0-1.2 [facility] Comment on above: Performed By: #### 2 4323-8 #### LISSETTE NEAL ([id number]) [facility] ([facility]) [address] [place] [address] Calcium [Mass/Vol] 9.9 mg/dL Normal 8.6-10.3 [facility] Comment on above: Performed By: #### 2 4323-8 #### LISSETTE NEAL ([id number]) [facility] ([facility]) [address] [place] [address] Chloride [Moles/Vol] 99 mmol/L Normal 98-107 [facility] Comment on above: Performed By: #### 2 4323-8 #### LISSETTE NEAL ([id number]) [facility] ([facility]) [address] [place] [address] CO2 [Moles/Vol] 10 mmol/L Critically low 21-32 [facility] Comment on above: Performed By: #### 2 4323-8 #### LISSETTE NEAL ([id number]) [facility] ([facility]) [address] [place] [address] 98957 Creatinine [Mass/Vol] 1.42 mg/dL High 0.50-1.30 [facility] Comment on above: Performed By: #### 2 432-8 #### LISSETTE NEAL ([id number]) [facility] ([facility]) [address] [place] [address] 24510 Glomerular filtration rate/1.73 sq M.predicted 69 mL/min/1.73m*2 Normal >60 [facility] Comment on above: Result Comment: Calc ulations of estimated GFR are performed using the 2020 CKD-EPI Study Refit equation without the race variable for the IDMS-Traceable creatinine methods. https://jasn.asnjournals.org/content/early//ASN.23986 95215 Performed By: #### 2 432-8 #### LISSETTE NEAL ([id number]) [facility] [facility]) [address] [place] [address] 70152 Glucose [Mass/Vol] 178 mg/dL High 74-99 [facility] Comment on above: Performed By: #### 2 4323-8 #### LISSETTE NEAL ([id number]) [facility] ([facility]) [address] [place] [address] 42238 Potassium [Moles/Vol] 4.5 mmol/L Normal 3.5-5.3 [facility] Comment on above: Performed By: #### 2 4323-8 #### LISSETTE NEAL ([id number]) [facility] ([facility]) [address] [place] [address] 69456 Protein [Mass/Vol] 8.1 g/dL Normal 6.4-8.2 [facility] Comment on above: Performed By: #### 2 432-8 #### LISSETTE NEAL ([id number]) [facility] ([facility]) [address] [place] [address] Sodium [Moles/Vol] 137 mmol/L Normal 136-145 [facility] Comment on above: Performed By: #### 2 4323-8 #### LISSETTE NEAL ([id number]) [facility] ([facility]) [address] [place] [address] Urea nitrogen [Mass/Vol] 19 mg/dL Normal 6-23 [facility] Comment on above: Performed By: #### 2 4323-8 #### MCLAUGHLIN VAL ([id number]) [facility] ([facility]) [facility] [place] [address] ECG 12-LEADon 03-01-2024 ECG 12-LEAD Ventricular Rate 139 Atrial Rate 139 P-R Interval 130 QRS Duration 78 Q-T Interval 296 QTC Calculation(Bazett) 450 P [place] 56 R [place] 65 T [place] 48 QRS Count 23 Q Onset 218 P Onset 153 P Offset 202 T Offset 366 QTC Fredericia 391 Diagnosis Sinus tachycardia Anterolateral infarct , age undetermined Abnormal ECG No previous ECGs available See ED provider note for full interpretation and clinical correlation Confirmed by Kaylan Rubio ([id number]) on 03/02/2024 11:21:20 AM Normal [facility] FLUAV and FLUBV RNA JUAN J+prob e Nom (Unsp spec)on 03-01-2024 FLUAV RNA JUAN J+probe Ql (Resp) Not detected Not Detected [facility] FLUBV RNA JUAN J+probe Ql (Resp) Not detected Not Detected [facility] This assay is an in vitro diagnostic multiplex nucleic acid amplification test for the detection and discrimination of Influenza A & B from nasopharyngeal specimens, and has been validated for use at [facility]. Negative results do not preclude Influenza A/B infections, and should not be used as the sole basis for diagnosis, treatment, or other management decisions. If Influenza A/B and RSV PCR results are negative, testing for Parainfluenza virus, Adenovirus and Metapneumovirus is routinely performed for [facility] pediatric oncology and intensive care inpatients, and is available on other patients by placing an add-on request. [facility] FLUAV RNA JUAN J+probe Ql (Resp) Not detected Normal Not Detected [facility] Comment on above: Order Comment: This assay is an in vitro diagnostic multiplex nucleic acid amplification test for the detection and discrimination of Influenza A & B from nasopharyngeal specimens, and has been validated for use at [facility]. Negative results do not preclude Influenza A/B infections, and should not be used as the sole basis for diagnosis, treatment, or other management decisions. If Influenza A/B and RSV PCR results are negative, testing for Parainfluenza virus, Adenovirus and Metapneumovirus is routinely performed for [facility] pediatric oncology and intensive care inpatients, and is available on other patients by placing an add-on request. Performed By: #### 4 8509-4 #### LISSETTE NEAL ([id number]) [facility] ([facility]) [address] [place], [place] [address] FLUBV RNA JUAN J+probe Ql (Resp) Not detected Normal Not Detected [facility] Comment on above: Order Comment: This assay is an in vitro diagnostic multiplex nucleic acid amplification test for the detection and discrimination of Influenza A & B from nasopharyngeal specimens, and has been validated for use at [facility]. Negative results do not preclude Influenza A/B infections, and should not be used as the sole basis for diagnosis, treatment, or other management decisions. If Influenza A/B and RSV PCR results are negative, testing for Parainfluenza virus, Adenovirus and Metapneumovirus is routinely performed for [facility] pediatric oncology and intensive care inpatients, and is available on other patients by placing an add-on request. Performed By: #### 4 8509-4 #### LISSETTE NEAL ([id number]) [facility] ([facility]) [address] [place] [address] 07987 Gas panel (BldV)on 4 Base excess Calc (BldV) [Moles/Vol] -11.30399 mmol/L Low -2.0 - 3.0 mmol/L [facility] CO2 (BldV) [Partial pressure] 22 mm[Hg] Low [facility] HCO3 (Bld) [Moles/Vol] 11.9 mmol/L Low 22.0 - 26.0 mmol/L [facility] Inhaled oxygen concentration 21 % [facility] Interpretation and review of laboratory results Abnormal [facility] Oxygen (BldV) [Partial pressure] 49 mm[Hg] High [facility] Oxygen saturation in Venous blood 76 % High 45 - 75 % [facility] Oxyhemoglobin (BldV) [Mass fraction] 74.2 % 45.0 - 75.0 % [facility] pH (BldV) 7.34 [pH] 7.33 - 7.43 pH [facility] Base excess Calc (BldV) [Moles/Vol] -11.33846 mmol/L Low -2.0-3.0 [facility] Comment on above: Performed By: #### 2 4339-4 #### LISSETTE NEAL ([id number]) [facility] ([facility]) [address] [place] [address] 63848 CO2 (BldV) [Partial pressure] 22 mm Hg Low 41-51 [facility] Comment on above: Performed By: #### 2 4339-4 #### LISSETTE NEAL ([id number]) [facility] ([facility]) [address] [place] [address] 44655 HCO3 (Bld) [Moles/Vol] 11.9 mmol/L Low 22.0-26.0 [facility] Comment on above: Performed By: #### 2 4339-4 #### LISSETTE NEAL ([id number]) [facility] ([facility]) [address] [place] [address] 81403 Inhaled oxygen concentration 21 % Normal [facility] Comment on above: Performed By: #### 2 4339-4 #### LISSETTE NEAL ([id number]) [facility] ([facility]) [address] [place] [address] 36583 Oxygen (BldV) [Partial pressure] 49 mm Hg High 35-45 [facility] Comment on above: Performed By: #### 2 4339-4 #### LISSETTE NEAL ([id number]) [facility] ([facility]) [address] [place] [address] 87728 Oxygen saturation in Venous blood 76 % High 45-75 [facility] Comment on above: Performed By: #### 2 4339-4 #### LISSETTE NEAL ([id number]) [facility] ([facility]) [address] [place] [address] 64734 Oxyhemoglobin (BldV) [Mass fraction] 74.2 % Normal 45.0-75.0 [facility] Comment on above: Performed By: #### 2 4339-4 #### LISSETTE NEAL ([id number]) [facility] ([facility]) [address] [place] [address] 57468 pH (BldV) 7.34 [pH] Normal 7.33-7.43 [facility] Comment on above: Performed By: #### 2 4339-4 #### LISSETTE NEAL ([id number]) [facility] ([facility]) [address] [place], [place] [address] Glucose Test strip manual (B ld) [Mass/Vol]on 03-01-2024 Glucose [Mass/Vol] 151 mg/dL High 74 - 99 mg/dL [facility] Interpretation and review of laboratory results Abnormal [facility] Glucose [Mass/Vol] 151 mg/dL High 74-99 [facility] Comment on above: Performed By: #### 2 341-6 ####LISSETTE NEAL ([id number])[facility] ([facility])[address] [place], [place] [address] HbA1c (Bld) [Mass fraction]o n 03-01-2024 Average glucose Estimated from glycated hemoglobin (Bld) [Mass/Vol] 137 mg/dL Normal Not Established [facility] Comment on above: Order Comment: Diagn osis of Fuwfaela-XtrosaYxi-Crjchptx: < or = 5.6%Increased risk for developing diabetes: 5.7-6.4%Diagnostic of diabetes: > or = 6.5% Performed By: #### 2 4339-4 #### LISSETTE NEAL ([id number]) [facility] ([facility]) [address] [place], [place] [address] Hemoglobin A1c/Hemoglobin.to adarsh 03-01-2024 HbA1c (Bld) [Mass fraction] 6.4 % High See comment [facility] Comment on above: Order Comment: Diagn osis of Psmixduh-OgwrlnUzo-Ayoqlypa: < or = 5.6%Increased risk for developing diabetes: 5.7-6.4%Diagnostic of diabetes: > or = 6.5% Performed By: #### 2 4339-4 #### LISSETTE NEAL ([id number]) [facility] ([facility]) [facility] [place] [address] Lactateon 03-01-2024 Lactate [Moles/Vol] 1.1 mmol/L 0.4 - 2. 0 mmol/L [facility] Lactate [Moles/Vol] 1.1 mmol/L Normal 0.4-2.0 [facility] Comment on above: Order Comment: Venip uncture immediately after or during the administration of Metamizole may lead to falsely low results. Testing should be performed immediately prior to Metamizole dosing. Performed By: #### 2 524-7 #### LISSETTE NEAL ([id number]) [facility] ([facility]) [facility] [place] [address] Lactate [Moles/Vol]on 2023 Interpretation and review of laboratory results Normal [facility] Venipuncture immediately after or during the administration of Metamizole may lead to falsely low results. Testing should be performed immediately prior to Metamizole dosing. [facility] Lipaseon 03-01-2024 Lipase [Catalytic activity/Vol] 267 U/L High 9 - 82 U/L [facility] Lipase [Catalytic activity/V ol]on 03-01-2024 Venipuncture immediately after or during the administration of Metamizole may lead to falsely low results. Testing should be performed immediately prior to Metamizole dosing. [facility] Lipid 1996 panelon Cholesterol [Mass/Vol] 204 mg/dL High 0 - 199 mg/dL [facility] Comment on above: Age Desirable Borderline [...] Cholesterol in HDL [Mass/Vol] 74.0 mg/dL [facility] Comment on above: Age Very Low Low Normal High 0-19 Y < 35 < 40 40-45 ---- 20-24 Y ---- < 40 >45 ---- >24 Y ---- < 40 40-60 >60 Cholesterol in LDL [Mass/Vol] 87 mg/dL NINF - 99 mg/dL [facility] Comment on above: Near Borderline AGE Desirable Optimal High High Very High 0-19 Y 0 - 109 --- 110-129 >/= 130 ---- 20-24 Y 0 - 119 --- 120-159 >/= 160 ---- >24 Y 0 - 99 100-129 130-159 160-189 >/=190 Cholesterol in VLDL [Mass/Vol] 43 mg/dL High 0 - 40 mg/dL [facility] Cholesterol.total/Chol esterol in HDL [Mass ratio] 2.8 {ratio} [facility] Comment on above: Ref Values Desirable < 3.4 High Risk > 5.0 Interpretation and review of laboratory results Abnormal [facility] Non HDL Cholesterol 130 mg/dL 0 - 149 mg/dL [facility] Comment on above: Age Desirable Borderline High High Very High 0-19 Y 0 - 119 120 - 144 >/= 145 >/= 160 20-24 Y 0 - 149 150 - 189 >/= 190 ---- >24 Y 30 mg/dL above LDL Cholesterol goal Triglyceride [Mass/Vol] 214 mg/dL High 0 - 149 mg/dL [facility] Comment on above: Age Desirable Borderline [...] performed immediately prior to Metamizole dosing. [facility] Cholesterol [Mass/Vol] 204 mg/dL High 0-199 Un [facility] Comment on above: Result Comment: [...] Performed By: #### 2 4331-1 ####LISSETTE NEAL ([id number])[facility] ([facility])[address] [place] [address] 96904 Cholesterol in HDL [Mass/Vol] 74.0 mg/dL Normal [facility] Comment on above: Result Comment: Age Very Low Low Normal High 0-19 Y < 35 < 40 40-45 ---- 20-24 Y ---- < 40 >45 ---- >24 Y ---- < 40 40-60 >60 Performed By: #### 2 4331-1 ####LISSETTE NEAL ([id number])[facility] ([facility] [place] [address] Cholesterol in LDL [Mass/Vol] 87 mg/dL Normal <=99 [facility] Comment on above: Result Comment: Near Borderline AGE Desirable Optimal High High Very High 0-19 Y 0 - 109 --- 110-129 >/= 130 ---- 20-24 Y 0 - 119 --- 120-159 >/= 160 ---- >24 Y 0 - 99 100-129 130-159 160-189 >/=190 Performed By: #### 2 4331-1 ####LISSETTE NEAL ([id number])[facility] ([facility])[address] [place] [address] 60745 Cholesterol in VLDL [Mass/Vol] 43 mg/dL High 0-40 [facility] Comment on above: Performed By: #### 2 4331-1 ####LISSETTE NEAL ([id number])[facility] ([facility])[address] [place] [address] 74375 CHOLESTEROL/HDL RATIO 2.8 Normal Uni [facility] Comment on above: Result Comment: Ref Values Desirable < 3.4 High Risk > 5.0 Performed By: #### 2 4331-1 ####LISSETTE NEAL ([id number])[facility] ([facility])[address] [place] [address] 77699 NON HDL CHOLESTEROL 130 mg/dL Normal 0-149 [facility] Comment on above: Result Comment: Age Desirable Borderline High High Very High 0-19 Y 0 - 119 120 - 144 >/= 145 >/= 160 20-24 Y 0 - 149 150 - 189 >/= 190 ---- >24 Y 30 mg/dL above LDL Cholesterol goal Performed By: #### 2 4331-1 ####LISSETTE NEAL ([id number])[facility] ([facility])[address] [place] [address] 58975 Triglyceride [Mass/Vol] 214 mg/dL High 0-149 [facility] Comment on above: Result Comment: Age Desirable [...] Performed By: #### 2 4331-1 ####LISSETTE NEAL ([id number])[facility] ([facility])[address] [place] [address], [place] [address] No Panel Informationon 03-01 Interpretation and review of laboratory results Normal [facility] Interpretation and review of laboratory results Abnormal [facility] Potassiumon 03-01-2024 Potassium [Moles/Vol] 4.9 mmol/L Normal 3.5-5.3 [facility] Comment on above: Order Comment: [facility] [phone] to schedule Performed By: #### 2 823-3 ####MCLAUGHLIN VAL ([id number])[facility] ([facility] [place] [address] Potassium - 2 hours after IV infusion completeon 03-01-2024 Potassium [Moles/Vol] 4.9 mmol/L 3.5 - 5.3 mmol/L [facility] Potassium [Moles/Vol]on Interpretation and review of laboratory results Normal [facility] RSV PCRon 03-01-2024 RSV RNA JUAN J+probe Ql (Resp) Not detected Not Detected [facility] RSV RNA JUAN J+probe Ql (Resp)o n 03-01-2024 This assay is an FDA-cleared, in vitro diagnostic nucleic acid amplification test for the detection of RSV from nasopharyngeal specimens, and has been validated for use at [facility]. Negative results do not preclude RSV infections, and should not be used as the sole basis for diagnosis, treatment, or other management decisions. If Influenza A/B and RSV PCR results are negative, testing for Parainfluenza virus, Adenovirus and Metapneumovirus is routinely performed for pediatric oncology and intensive care inpatients at [facility], and is available on other patients by placing an add-on request. [facility] Respiratory syncytial virus RNAon 03-01-2024 RSV RNA JUAN J+probe Ql (Resp) Not detected Normal Not Detected [facility] Comment on above: Order Comment: This assay is an FDA-cleared, in vitro diagnostic nucleic acid amplification test for the detection of RSV from nasopharyngeal specimens, and has been validated for use at [facility]. Negative results do not preclude RSV infections, and should not be used as the sole basis for diagnosis, treatment, or other management decisions. If Influenza A/B and RSV PCR results are negative, testing for Parainfluenza virus, Adenovirus and Metapneumovirus is routinely performed for pediatric oncology and intensive care inpatients at [facility], and is available on other patients by placing an add-on request. Performed By: #### 9 2131-2 #### LISSETTE NEAL ([id number]) [facility] ([facility]) [address] [place] [address] SARS coronavirus 2 RNAon SARS-CoV-2 (COVID-19) RNA JUAN J+probe Ql (Resp) Not detected Normal Not Detected [facility] Comment on above: Order Comment: [facility] to schedule Performed By: #### 9 4500-6 ####LISSETTE NEAL ([id number])[facility] ([facility])[address] [place] [address] SARS-CoV-2 (COVID-19) RNA NA A+probe Ql (Resp)on [...] been validated for use at [facility]. Negative results do not preclude COVID-19 infections and should not be used as the sole basis for diagnosis, treatment, or other management decisions. [facility] Sars-CoV-2 PCRon 03-01-2024 SARS-CoV-2 (COVID-19) RNA JUAN J+probe Ql (Resp) Not detected Not Detected [facility] TSHon 03-01-2024 TSH Qn 2.87 m[IU]/L [facility] TSH Qnon 03-01-2024 Interpretation and review of laboratory results Normal [facility] TSH testing is performed using different testing methodology at [facility] than at other [facility]. Direct result comparisons should only be made within the same method. [facility] Thyrotropinon 03-01-2024 TSH Qn 2.87 m[IU]/L Normal 0.44-3.98 [facility] Comment on above: Order Comment: [facility] to schedule Performed By: #### 3 016-3 ####LISSETTE NEAL ([id number])[facility] ([facility])[address] [place] [address] Triacylglycerol lipaseon Lipase [Catalytic activity/Vol] 267 U/L High 9-82 [facility] Comment on above: Order Comment: Venip uncture immediately after or during the administration of Metamizole may lead to falsely low results. Testing should be performed immediately prior to Metamizole dosing. Performed By: #### 3 040-3 #### LISSETTE NEAL ([id number]) [facility] ([facility]) [address] [place] [address] Urinalysis complete W Reflex Culture panel (U)on 03-01-2024 Appearance (U) Clear Clear [facility] Bilirubin (U) [Mass/Vol] Negative NEGATIVE [facility] Color (U) Light-Yellow Light-Yellow, Yellow, Dark-Yellow [facility] Glucose Auto test strip (U) [Mass/Vol] 300 (3+) Abnormal Normal mg/dL [facility] Hyaline casts Auto (Urine sed) [#/Area] 2+ Abnormal NONE /LPF [facility] Interpretation and review of laboratory results Abnormal [facility] Ketones (U) [Mass/Vol] OVER (4+) Abnormal NEGAT PATRICK mg/dL [facility] Leukocyte esterase Auto test strip Ql (U) Negative NEGATIVE [facility] Mucus Auto (Urine sed) [#/Area] FEW Reference range not established. /LPF [facility] Nitrite Auto test strip Ql (U) Negative NEGATIVE [facility] pH (U) 6.0 [pH] 5.0, 5.5, 6.0, 6.5, 7.0, 7.5, 8.0 [facility] Protein (U) [Mass/Vol] 300 (3+) Abnormal NEGAT PTARICK, 10 (TRACE), 20 (TRACE) mg/dL [facility] RBC (U) [#/Vol] 0.03 (TRACE) Abnormal NEGATIVE [facility] RBC Auto (Urine sed) [#/Area] 1-2 NONE, 1-2, 3-5 /HPF [facility] Specific gravity (U) [Rel density] 1.041 Abnormal 1.005 - 1.035 [facility] Urobilinogen (U) [Mass/Vol] 2 (1+) Abnormal Normal mg/dL [facility] Comment on above: Due to a [...] sed) [#/Area] 1-5 1-5, NONE /HPF [facility] OVER is reported whe n the result is greater than the clinically reportable range. [facility] Appearance (U) Clear Normal Clear [facility] Comment on above: Order Comment: [facility] to schedule Performed By: #### 5 8077-9 ####LISSETTE NEAL ([id number])[facility] ([facility])[address] [place] [address] Bilirubin (U) [Mass/Vol] Negative Normal NEGATIVE [facility] Comment on above: Order Comment: [facility] to schedule Performed By: #### 5 8077-9 ####LISSETTE NEAL ([id number])[facility] ([facility])[address] [place] [address] Color (U) Light-Yellow Normal Light-Yellow, Yellow, Dark-Yellow [facility] Comment on above: Order Comment: [facility] to schedule Performed By: #### 5 8077-9 ####LISSETTE NEAL ([id number])[facility] ([facility])[address] [place] [address] Glucose Auto test strip (U) [Mass/Vol] 300 (3+) Abnormal Normal [facility] Comment on above: Order Comment: [facility] to schedule Performed By: #### 5 8077-9 ####LISSETTE NEAL ([id number])[facility] ([facility])[address] [place] [address] Hyaline casts Auto (Urine sed) [#/Area] 2+ /LPF Abnormal NONE [facility] Comment on above: Performed By: #### 5 8077-9 ####LISSETTE NEAL ([id number])[facility] ([facility])[address] [place] [address] Ketones (U) [Mass/Vol] OVER (4+) Abnormal NEGATIVE Un [facility] Comment on above: Order Comment: [facility] to schedule Performed By: #### 5 8077-9 ####LISSETTE NEAL ([id number])[facility] ([facility])[address] [place] [address] Leukocyte esterase Auto test strip Ql (U) Negative Normal NEGATIVE [facility] Comment on above: Order Comment: [facility] to schedule Performed By: #### 5 8077-9 ####LISSETTE NEAL ([id number])[facility] ([facility])[address] [place] [address] Mucus Auto (Urine sed) [#/Area] FEW Normal Reference range not established. [facility] Comment on above: Performed By: #### 5 8077-9 ####LISSETTE NEAL ([id number])[facility] ([facility])[address] [place], [place] [address] Nitrite Auto test strip Ql (U) Negative Normal NEGATIVE [facility] Comment on above: Order Comment: [facility] to schedule Performed By: #### 5 8077-9 ####LISSETTE NEAL ([id number])[facility] ([facility])[address] [place] [address] pH (U) 6.0 [pH] Normal 5.0, 5.5, 6.0, 6.5, 7.0, 7.5, 8.0 [facility] Comment on above: Order Comment: [facility] to schedule Performed By: #### 5 8077-9 ####LISSETTE NEAL ([id number])[facility] ([facility])[address] [place] [address] Protein (U) [Mass/Vol] 300 (3+) Abnormal NEGAT PATRICK, 10 (TRACE), 20 (TRACE) [facility] Comment on above: Order Comment: [facility] to schedule Performed By: #### 5 8077-9 ####LISSETTE NEAL ([id number])[facility] ([facility])[address] [place] [address] RBC (U) [#/Vol] 0.03 (TRACE) Abnormal NEGATIVE [facility] Comment on above: Order Comment: [facility] to schedule Performed By: #### 5 8077-9 ####LISSETTE NEAL ([id number])[facility] [facility] [place] [address] RBC Auto (Urine sed) [#/Area] 1-2 Normal NONE, 1-2, 3-5 [facility] Comment on above: Performed By: #### 5 8077-9 ####LISSETTE NEAL ([id number])[facility] ([facility])[address] [place] [address] Specific gravity (U) [Rel density] 1.041 Normal 1.005-1.035 [facility] Comment on above: Order Comment: [facility] to schedule Performed By: #### 5 8077-9 ####LISSETTE NEAL ([id number])[facility] ([facility])[address] [place] [address] Urobilinogen (U) [Mass/Vol] 2 (1+) Abnormal Normal [facility] Comment on above: Order Comment: [facility] to schedule Result Comment: Due to [...] Performed By: #### 5 8077-9 ####LISSETTE NEAL ([id number])[facility] ([facility])[address] [place], [place] [address] WBC Auto (Urine sed) [#/Area] 1-5 Normal 1-5, NONE [facility] Comment on above: Performed By: #### 5 8077-9 ####LISSETTE NEAL ([id number])[facility] ([facility])[address] [place] [address] Comprehensive metabolic 2000 panelon 12-15-2023 Albumin BCP dye [Mass/Vol] 4.6 g/dL Normal 3.4-5.0 [facility] Comment on above: Performed By: #### 5 3315-8 #### TRE Nichols ([id number]) [facility] ([facility]) [address] [place] [address] ALP [Catalytic activity/Vol] 80 U/L Normal 33-120 [facility] Comment on above: Performed By: #### 5 3315-8 #### TRE Nichols ([id number]) [facility] ([facility]) [address] [place] [address] ALT With P-5'-P [Catalytic activity/Vol] 61 U/L High 10-52 [facility] Comment on above: Result Comment: Marilu ents treated with Sulfasalazine may generate falsely decreased results for ALT. Performed By: #### 5 3315-8 #### TRE ROSE L ([id number]) [facility] ([facility]) [address] [place] [address] Anion gap [Moles/Vol] 15 mmol/L Normal 10-20 [facility] Comment on above: Performed By: #### 5 3315-8 #### TRE Nichols ([id number]) [facility] ([facility]) [address] [place] [address] AST With P-5'-P [Catalytic activity/Vol] 57 U/L High 9-39 [facility] Comment on above: Performed By: #### 5 3315-8 #### TRE Nichols ([id number]) [facility] ([facility]) [address] [place] [address] Bilirubin [Mass/Vol] 0.8 mg/dL Normal 0.0-1.2 [facility] Comment on above: Performed By: #### 5 331-8 #### TRE Nichols (53314) [facility] ([facility]) [address] [place] [address] Calcium [Mass/Vol] 9.8 mg/dL Normal 8.6-10.6 [facility] Comment on above: Performed By: #### 5 3315-8 #### TRE Nichols ([id number]) [facility] ([facility]) [address] [place] [address]190 Chloride [Moles/Vol] 98 mmol/L Normal 98-107 [facility] Comment on above: Performed By: #### 5 3315-8 #### TRE Nichols (60254) [facility] ([facility]) [address] [place] [address] CO2 [Moles/Vol] 32 mmol/L Normal 21-32 [facility] Comment on above: Performed By: #### 5 3315-8 #### TRE Nichols ([id number]) [facility] ([facility]) [address] [place] [address] Creatinine [Mass/Vol] 0.86 mg/dL Normal 0.50-1.30 [facility] Comment on above: Performed By: #### 5 3315-8 #### TRE Nichols ([id number]) [facility] ([facility]) [address] [place] [address] GFR/1.73 sq M.predicted MDRD (S/P/Bld) [Vol rate/Area] mL/min/{1.73_m2} Normal >60 [facility] Comment on above: Result Comment: Calc ulations of estimated GFR are performed using the 2020 CKD-EPI Study Refit equation without the race variable for the IDMS-Traceable creatinine methods. https://jasn.asnjournals.org/content//ASN.09067 62633 Performed By: #### 5 3315-8 #### TRE Nichols ([id number]) [facility] ([facility]) [address] [place] [address] Glucose [Mass/Vol] 143 mg/dL High 74-99 [facility] Comment on above: Performed By: #### 5 3315-8 #### TRE ROSE L ([id number]) [facility] ([facility]) [address] [place] [address] Potassium [Moles/Vol] 3.6 mmol/L Normal 3.5-5.3 [facility] Comment on above: Performed By: #### 5 3315-8 #### TRE ROSE L ([id number]) [facility] ([facility]) [address] [place] [address] Protein [Mass/Vol] 7.3 g/dL Normal 6.4-8.2 [facility] Comment on above: Performed By: #### 5 3315-8 #### TRE SAINZMOJSEI L (58796) [facility] ([facility]) [address] [place] [address] Sodium [Moles/Vol] 141 mmol/L Normal 136-145 [facility] Comment on above: Performed By: #### 5 3315-8 #### TRE SAINZMOJESI L (74603) [facility] ([facility]) [address] [place] [address] Urea nitrogen [Mass/Vol] 10 mg/dL Normal 6-23 [facility] Comment on above: Performed By: #### 5 3315-8 #### TRE Nichols ([id number]) [facility] ([facility]) [address] [place] [address] Urateon 12-15-2023 Urate [Mass/Vol] 6.2 mg/dL Normal 4.0-7.5 [facility] Comment on above: Result Comment: Nina puncture immediately after or during the administration of Metamizole may lead to falsely low results. Testing should be performed immediately prior to Metamizole dosing. Performed By: #### 5 3315-8 #### TRE Nichols ([id number]) [facility] ([facility]) [address] [place] [address] US BILIARY SYSTEMon 12-11-19 US BILIARY SYSTEM Interpreted By: Mukesh Paredes, STUDY: US BILIARY SYSTEM 12/11/2023 3:51 pm INDICATION: 28 y/o M with Signs/Symptoms:liver pain. COMPARISON: None. ACCESSION NUMBER(S): [id number] ORDERING CLINICIAN: DEXTER DANIEL TECHNIQUE: Routine ultrasound [...] Mukesh Paredes 12/12/2023 5:59 PM Dictation workstation: [id number] [facility] Comment on above: Order Comment: To Hiro bowen Call [phone] US RENAL COMPLETEon 07-18-20 24 US RENAL COMPLETE Interpreted By: Mukesh Paredes, STUDY: US RENAL COMPLETE; 12/11/2023 12:10 pm INDICATION: Signs/Symptoms:ckd. COMPARISON: None. ACCESSION NUMBER(S): [id number] ORDERING CLINICIAN: DEXTER DANIEL TECHNIQUE: Grayscale and [...] Mukesh Paredes 12/12/2023 9:44 PM Dictation workstation: [id number] [facility] Comment on above: Order Comment: [facility] [phone] to schedule Absolute lymphocyte countOrd ered By: Lavell Patel on 09-04-2023 Lymphocytes Auto (Unsp spec) [#/Vol] 4.53 10*3/uL 0.83-4.51 [facility] Automated lymphocyte count a s percentage of total leukocytesOrdered By: Lavell Patel on 09-04-2023 Lymphocytes/100 WBC Auto (Unsp spec) 45.7 % 19-41 [facility] Basophil percentageOrdered B y: Lavell Patel on 09-04-2023 Basophils/100 WBC (Bld) 1.4 % 0-1 [facility] Bilirubin [Mass/Vol] 1.10 mg/dL 0.20-1.00 [facility] Comment on above: For patients on eltr ombopag therapy, use of Dimension [place] TBIL is not recommended. Chloride [Moles/Vol] 103 mmol/L 98-107 [facility] Eosinophils/100 WBC (Bld) 0.1 % 0-5 [facility] Glucose [Mass/Vol] 178 mg/dL 74-106 [facility] Comment on above: Fasting Glucose resu lt greater than or equal to 126 mg/dL suggests DIABETES MELLITUS per A.D.A. criteria. Hemoglobin (Bld) [Mass/Vol] 15.1 g/dL 13.0-16.5 [facility] Monocytes/100 WBC (Bld) 9.4 % 0-10 [facility] Neutrophils (Bld) [#/Vol] 4.3 10*3/uL 2.0-7.7 [facility] Neutrophils/100 WBC (Bld) 43.0 % 47-70 [facility] Potassium [Moles/Vol] 3.5 mmol/L 3.5-5.1 [facility] Protein [Mass/Vol] 7.1 g/dL 6.4-8.2 [facility] Sodium [Moles/Vol] 138 mmol/L 136-145 [facility] WBC (Bld) [#/Vol] 9.9 10*3/uL 4.4-11.0 [facility] Blood manual differential co mment interpretation (narrative result)Ordered By: Lavell Patel on 09-04-2023 Manual differential comment Gabriel (Bld) [Interp] SCANNED [facility] Determination of erythrocyte mean corpuscular volume (MCV)Ordered By: Lavell Patel on 09-04-2023 MCV (RBC) [Entitic vol] 87.4 fL 80-94 [facility] Erythrocyte distribution wid th ratioOrdered By: Lavell Patel on 09-04-2023 Erythrocyte distribution width (RBC) [Ratio] 12.9 % 11.6-14.6 [facility] Erythrocyte distribution wid th standard deviationOrdered By: Lavell Patel on 09-04-2023 Erythrocyte distribution width (RBC) [Entitic vol] 41.1 fL 35.1-43.9 [facility] Hematocrit Auto (Bld) [Volum e fraction]Ordered By: Lavell Patel on 09-04-2023 Hematocrit (Bld) [Volume fraction] 43.2 % 40-54 [facility] Immature granulocytes/100 WB C Auto (Bld)Ordered By: Lavell Patel on 09-04-2023 Immature granulocytes/100 WBC (Bld) 0.400 % 0.0-0.9 [facility] Comment on above: IG% - Immature Granu locytes (promyelocytes, myelocytes and metamyelocytes) > 1% indicates that a LEFT SHIFT is Present. Laboratory - Chemistry and C hemistry - challengeOrdered By: Lavell Patel on 09-04-2023 Albumin/Globulin [Mass ratio] 1.0 {ratio} 0.9-2.4 [facility] ALP [Catalytic activity/Vol] 151 U/L 45-117 [facility] ALT [Catalytic activity/Vol] 86 U/L 16-61 [facility] CO2 [Moles/Vol] 26.0 mmol/L 21.0-32.0 [facility] Globulin (S) [Mass/Vol] 3.6 g/dL 2.2-4.2 [facility] Urea nitrogen/Creatinine [Mass ratio] 9.4 mg/mg 10-20 [facility] Laboratory - Hematology and Cell countsOrdered By: Lavell Patel on 09-04-2023 MCH (RBC) [Entitic mass] 30.6 pg 27.0-32.0 [facility] MCHC (RBC) [Mass/Vol] 35.0 g/dL 32-36 [facility] Nucleated RBC/100 WBC (Bld) [Ratio] 0 % 0-5 [facility] Platelet mean volume (Bld) [Entitic vol] 9.4 fL 6.2-12.0 [facility] Platelets (Bld) [#/Vol] 177 10*3/uL 150-450 [facility] No Panel InformationOrdered By: Lavell Patel on 09-04-2023 Atypical Lymphocytes 1+ % [facility] Estimated Creatinine Clearance Calc 130.62 ml/min [facility] Estimated GFR (MDRD) Amer 121 mL/min >60 [facility] Comment on above: GFR Calc Estimated GFR (MDRD) Non-Af Amer 100 mL/min >60 [facility] Comment on above: Non- GFR Calc RBC Auto (Bld) [#/Vol]Ordere d By: Lavell Patel on 09-04-2023 RBC (Bld) [#/Vol] 4.94 10*6/uL 4.6-6.2 [facility] Serum or plasma calcium bucky urement (mass/volume)Ordered By: Lavell Patel on 09-04-2023 Calcium [Mass/Vol] 8.9 mg/dL 8.5-10.1 [facility] Serum or plasma creatinine m easurement (mass/volume)Ordered By: Lavell Patel on 09-04-2023 Creatinine [Mass/Vol] 0.96 mg/dL 0.70-1.30 [facility] Comment on above: The validity of the calculated GFR & GFRAA in patients over 70 years has not been determined. Clinical correlation is essential. Serum or plasma urea nitroge n measurement (mass/volume)Ordered By: Lavell Patel on 09-04-2023 Urea nitrogen [Mass/Vol] 9 mg/dL 7-18 [facility] Thin prep Papanicolaou smear with manual screeningOrdered By: Lavell Patel on 09-04-2023 Thin prep Papanicolaou smear with manual screening 3.5 g/dL 3.2-5.0 [facility] Thin prep Papanicolaou smear with manual screening 130 U/L 15 [facility] Thin prep Papanicolaou smear with manual screening 9 5-15 [facility] Laboratory - Hematology and Cell countson 08-15-2023 HbA1c (Bld) [Mass fraction] 9.0 % 4.2-6.3 [facility] Albumin/Creatinineon 024 Albumin/Creatinine DL <= 20 mg/L (U) [Mass ratio] 791.1 ug/mg Creat High <30.0 [facility] Comment on above: Performed By: #### 1 4959-1 #### TRE Nichols ([id number]) [facility] ([facility]) [address] [place] [address]64 Albumin/Creatinine DL <= 20 mg/L (U) [Mass ratio]on 06-09-2023 Albumin DL <= 20 mg/L (U) [Mass/Vol] 425.6 mg/L Normal Not established [facility] Comment on above: Performed By: #### 1 4959-1 #### TRE Nichols (83706) [facility] ([facility]) [address] [place] [address] Creatinine (U) [Mass/Vol] 53.8 mg/dL Normal 20.0-370.0 [facility] Comment on above: Performed By: #### 1 4959-1 #### TRE Nichols ([id number]) [facility] ([facility]) [address] [place] [address] 30091 CBC W Auto Differential pane l (Bld)on 06-09-2023 Basophils (Bld) [#/Vol] 0.06 x10*3/uL Normal 0.00-0.10 [facility] Comment on above: Performed By: #### 5 7021-8 #### TRE Nichols ([id number]) [facility] ([facility]) [address] [place] [address]164 Basophils/100 WBC (Bld) 1.1 % Normal 0.0-2.0 [facility] Comment on above: Performed By: #### 5 7021-8 #### TRE Nichols ([id number]) [facility] ([facility]) [address] [place] [address] 51775 Eosinophils (Bld) [#/Vol] 0.15 x10*3/uL Normal 0.00-0.70 [facility] Comment on above: Performed By: #### 5 7021-8 #### TRE Nichols ([id number]) [facility] ([facility]) [address] [place] [address] 97763 Eosinophils/100 WBC (Bld) 2.6 % Normal 0.0-6.0 [facility] Comment on above: Performed By: #### 5 7021-8 #### TRE Nichols ([id number]) [facility] ([facility]) [address] [place] [address] 78656 Erythrocyte distribution width (RBC) [Ratio] 12.9 % Normal 11.5-14.5 [facility] Comment on above: Performed By: #### 5 7021-8 #### TRE Nichols (49710) [facility] ([facility]) [address] [place] [address] 27597 Hematocrit (Bld) [Volume fraction] 47.4 % Normal 41.0-52.0 [facility] Comment on above: Performed By: #### 5 7021-8 #### TRE HENRYER Magdalena (53634) [facility] ([facility]) [address] [place] [address] Hemoglobin (Bld) [Mass/Vol] 16.4 g/dL Normal 13.5-17.5 [facility] Comment on above: Performed By: #### 5 7021-8 #### TRE SAINZMOTZER L (66442) [facility] ([facility]) [address] [place] [address]32 Immature granulocytes (Bld) [#/Vol] 0.02 x10*3/uL Normal 0.00-0.70 [facility] Comment on above: Performed By: #### 5 7021-8 #### TRE ROSE L ([id number]) [facility] ([facility]) [address] [place] [address] 38235 Immature granulocytes/100 WBC (Bld) 0.4 % Normal 0.0-0.9 [facility] Comment on above: Result Comment: Suzanne ture Granulocyte Count (IG) includes promyelocytes, myelocytes and metamyelocytes but does not include bands. Percent differential counts (%) should be interpreted in the context of the absolute cell counts (cells/UL). Performed By: #### 5 7021-8 #### TRE Nichols ([id number]) [facility] ([facility]) [address] [place] [address] Lymphocytes (Bld) [#/Vol] 2.00 x10*3/uL Normal 1.20-4.80 [facility] Comment on above: Performed By: #### 5 7021-8 #### TRE ROSE L (41013) [facility] ([facility]) [address] [place] [address] Lymphocytes/100 WBC (Bld) 35.3 % Normal 13.0-44.0 [facility] Comment on above: Performed By: #### 5 7021-8 #### TRE SAINZMOTZANNA L (10049) [facility] ([facility]) [address] [place] [address] 47978 MCH (RBC) [Entitic mass] 30.7 pg Normal 26.0-34.0 [facility] Comment on above: Performed By: #### 5 7021-8 #### TRE Nichols ([id number]) [facility] ([facility]) [address] [place] [address]28 MCHC (RBC) [Mass/Vol] 34.6 g/dL Normal 32.0-36.0 [facility] Comment on above: Performed By: #### 5 7021-8 #### TRE Nichols ([id number]) [facility] ([facility]) [address] [place] [address] 27458 MCV (RBC) [Entitic vol] 89 fL Normal 80-100 [facility] Comment on above: Performed By: #### 5 7021-8 #### TRE Nichols (47072) [facility] ([facility]) [address] [place] [address] 14575 Monocytes (Bld) [#/Vol] 0.68 x10*3/uL Normal 0.10-1.00 [facility] Comment on above: Performed By: #### 5 7021-8 #### TRE Nichols (64929) [facility] ([facility]) [address] [place] [address] 61271 Monocytes/100 WBC (Bld) 12.0 % Normal 2.0-10.0 [facility] Comment on above: Performed By: #### 5 7021-8 #### TRE Nichols ([id number]) [facility] ([facility]) [address] [place] [address] 03152 Neutrophils (Bld) [#/Vol] 2.76 x10*3/uL Normal 1.20-7.70 [facility] Comment on above: Result Comment: Perc ent differential counts (%) should be interpreted in the context of the absolute cell counts (cells/uL). Performed By: #### 5 7021-8 #### TRE Nichols ([id number]) [facility] ([facility]) [address] [place] [address] 04735 Neutrophils/100 WBC (Bld) 48.6 % Normal 40.0-80.0 [facility] Comment on above: Performed By: #### 5 7021-8 #### TRE Nichols (67036) [facility] ([facility]) [address] [place] [address] 40176 Nucleated RBC/100 WBC (Bld) [Ratio] 0.0 /100 WBCs Normal 0.0-0.0 [facility] Comment on above: Performed By: #### 5 7021-8 #### TRE Nichols ([id number]) [facility] ([facility]) [address] [place] [address] 74104 Platelets (Bld) [#/Vol] 185 x10*3/uL Normal 150-450 [facility] Comment on above: Performed By: #### 5 7021-8 #### TRE Nichols ([id number]) [facility] ([facility]) [address] [place] [address] 96434 RBC (Bld) [#/Vol] 5.34 x10*6/uL Normal 4.50-5.90 [facility] Comment on above: Performed By: #### 5 7021-8 #### TRE Nichols ([id number]) [facility] ([facility]) [address] [place] [address] 47421 WBC (Bld) [#/Vol] 5.7 x10*3/uL Normal 4.4-11.3 [facility] Comment on above: Performed By: #### 5 7021-8 #### TRE Nichols (75292) [facility] ([facility]) [address] [place] [address] 69042 Cobalaminson 06-09-2023 Cobalamin (Vitamin B12) [Mass/Vol] 275 pg/mL Normal 211-911 [facility] Comment on above: Performed By: #### 2 132-9 #### TRE Nichols ([id number]) [facility] ([facility]) [address] [place] [address] 76918 Comprehensive metabolic 2000 panelon 06-09-2023 Albumin BCP dye [Mass/Vol] 5.3 g/dL High 3.4-5.0 [facility] Comment on above: Performed By: #### 2 4323-8 #### TRE Nichols (78448) [facility] ([facility]) [address] [place] [address] 36932 ALP [Catalytic activity/Vol] 74 U/L Normal 33-120 [facility] Comment on above: Performed By: #### 2 4323-8 #### TRE Nichols ([id number]) [facility] ([facility]) [address] [place] [address] 92503 ALT With P-5'-P [Catalytic activity/Vol] 35 U/L Normal 10-52 [facility] Comment on above: Result Comment: Marilu ents treated with Sulfasalazine may generate falsely decreased results for ALT. Performed By: #### 2 4323-8 #### TRE Nichols (38655) [facility] ([facility]) [address] [place] [address] 15329 Anion gap [Moles/Vol] 18 mmol/L Normal 10-20 [facility] Comment on above: Performed By: #### 2 4323-8 #### TRE Nichols ([id number]) [facility] ([facility]) [address] [place] [address] 15691 AST With P-5'-P [Catalytic activity/Vol] 26 U/L Normal 9-39 [facility] Comment on above: Performed By: #### 2 4323-8 #### TRE ROSE L (82453) [facility] ([facility]) [address] [place] [address] 70685 Bilirubin [Mass/Vol] 0.5 mg/dL Normal 0.0-1.2 [facility] Comment on above: Performed By: #### 2 4323-8 #### TRE Nichols ([id number]) [facility] ([facility]) [address] [place] [address] Calcium [Mass/Vol] 10.1 mg/dL Normal 8.6-10.6 [facility] Comment on above: Performed By: #### 2 4323-8 #### TRE Nichols (12687) [facility] ([facility]) [address] [place] [address] Chloride [Moles/Vol] 99 mmol/L Normal 98-107 [facility] Comment on above: Performed By: #### 2 4323-8 #### TRE ROSE L (52027) [facility] ([facility]) [address] [place] [address] CO2 [Moles/Vol] 27 mmol/L Normal 21-32 [facility] Comment on above: Performed By: #### 2 4323-8 #### TRE Nichols ([id number]) [facility] ([facility]) [address] [place] [address] Creatinine [Mass/Vol] 0.83 mg/dL Normal 0.50-1.30 [facility] Comment on above: Performed By: #### 2 4323-8 #### TRE ROSE L ([id number]) [facility] ([facility]) [address] [place] [address] GFR/1.73 sq M.predicted MDRD (S/P/Bld) [Vol rate/Area] mL/min/{1.73_m2} Normal >60 [facility] Comment on above: Result Comment: Calc ulations of estimated GFR are performed using the 2020 CKD-EPI Study Refit equation without the race variable for the IDMS-Traceable creatinine methods. https://jasn.asnjournals.org/content//ASN.38084 01143 Performed By: #### 2 4323-8 #### TRE Nichols ([id number]) [facility] ([facility]) [address] [place] [address] Glucose [Mass/Vol] 250 mg/dL High 74-99 [facility] Comment on above: Performed By: #### 2 4323-8 #### TRE GODWINTZER L (61927) [facility] ([facility]) [address] [place] [address] 37214 Potassium [Moles/Vol] 4.0 mmol/L Normal 3.5-5.3 [facility] Comment on above: Performed By: #### 2 4323-8 #### TRE SAINZMOTZER L (21618) [facility] ([facility]) [address] [place] [address] 31362 Protein [Mass/Vol] 7.6 g/dL Normal 6.4-8.2 [facility] Comment on above: Performed By: #### 2 4323-8 #### TRE SAINZMOTZER L ([id number]) [facility] ([facility]) [address] [place] [address] [id number] Sodium [Moles/Vol] 140 mmol/L Normal 136-145 [facility] Comment on above: Performed By: #### 2 4323-8 #### TRE HENRYER L ([id number]) [facility] ([facility]) [address] [place] [address] 08374 Urea nitrogen [Mass/Vol] 13 mg/dL Normal 6-23 [facility] Comment on above: Performed By: #### 2 4323-8 #### TRE GODWINTZER L ([id number]) [facility] ([facility]) [address] [place] [id number] Drugs of abuse screen W Refl ex confirm panel (U)on 06-09-2023 Amphetamines Screen Ql (U) Negative Normal Presumptive Negative [facility] Comment on above: Order Comment: Drug screen [...] By: #### 5 3315-8 #### TRE Nichols ([id number]) [facility] ([facility]) [address] [place] [address] Barbiturates Screen Ql (U) Negative Normal Presumptive Negative [facility] Comment on above: Order Comment: Drug screen [...] #### 5 3315-8 #### TRE SAINZMOTZER L ([id number]) [facility] ([facility]) [address] [place] [address] 76003 Benzodiazepines Ql (U) Negative Normal Presu mptive Negative [facility] Comment on above: Order Comment: Drug screen [...] By: #### 5 3315-8 #### TRE Nichols ([id number]) [facility] ([facility]) [address] [place] [address] Benzoylecgonine Screen Ql (U) Negative Normal Presumptive Negative [facility] Comment on above: Order Comment: Drug screen [...] By: #### 5 3315-8 #### TRE Nichols ([id number]) [facility] ([facility]) [address] [place], [place] [id number] Cannabinoids Screen Ql (U) Negative Normal Presumptive Negative [facility] Comment on above: Order Comment: Drug screen [...] By: #### 5 3315-8 #### TRE Nichols ([id number]) [facility] ([facility]) [address] [place] [address] fentaNYL+Norfentanyl Screen Ql (U) Negative Normal Presumptive Negative [facility] Comment on above: Order Comment: Drug screen [...] By: #### 5 3315-8 #### TRE Nichols ([id number]) [facility] ([facility]) [address] [place] [address] Opiates Screen Ql (U) Negative Normal Presum ptive Negative [facility] Comment on above: Order Comment: Drug screen [...] By: #### 5 3315-8 #### TRE Nichols ([id number]) [facility] ([facility]) [address] [place] [address] 59696 oxyCODONE+oxyMORphone Screen Ql (U) Negative Normal Presumptive Negative [facility] Comment on above: Order Comment: Drug screen [...] By: #### 5 3315-8 #### TRE Nichols ([id number]) [facility] ([facility]) [address] [place] [address] 96057 Phencyclidine Ql (U) Negative Normal Presump tive Negative [facility] Comment on above: Order Comment: Drug screen [...] By: #### 5 3315-8 #### TRE Nichols ([id number]) [facility] ([facility]) [address] [place], [place] [id number] HIV 1+2 Ab+HIV1 p24 Agon HIV 1+2 Ab+HIV1 p24 Ag IA Ql Non-Reactive Normal Nonreactive [facility] Comment on above: Order Comment: HIV A g/Ab screen is performed using the Siemens R&LllTimeBridge HIV Ag/Ab Combo assay which detects the presence of HIV p24 antigen as well as antibodies to HIV-1 (Group M and O) and HIV-2.No laboratory evidence of HIV infection. If acute HIV infection is suspected, consider testing for HIV RNA by PCR (viral load). Performed By: #### 5 3315-8 #### TRE Nichols ([id number]) [facility] ([facility]) [address] [place] [address] 46287 HbA1c (Bld) [Mass fraction]o n 06-09-2023 Average glucose Estimated from glycated hemoglobin (Bld) [Mass/Vol] 220 mg/dL Normal Not Established [facility] Comment on above: Order Comment: Diagn osis of Ttxydltj-KnylssCyz-Bmjtnznk: < or = 5.6%Increased risk for developing diabetes: 5.7-6.4%Diagnostic of diabetes: > or = 6.5%Monitoring of DiabetesAge (y)....................... Therapeutic Goal (%)Adults: >18.........................<7.0Pediatrics: 13-18...................<7.5Pediatrics: 7-12....................<8.0Pediatrics: 0-6..................... 7.5-8.5American Diabetes Association. Diabetes Care 33(S1)May 2009 Performed By: #### 5 3315-8 #### TRE Nichols ([id number]) [facility] ([facility]) [address] [place] [address] Hemoglobin A1c/Hemoglobin.to adarsh 06-09-2023 HbA1c (Bld) [Mass fraction] 9.3 % High see below [facility] Comment on above: Order Comment: Diagn osis of Tdmclgmg-EiunwuYio-Cpzgagfm: < or = 5.6%Increased risk for developing diabetes: 5.7-6.4%Diagnostic of diabetes: > or = 6.5%Monitoring of DiabetesAge (y)....................... Therapeutic Goal (%)Adults: >18.........................<7.0Pediatrics: 13-18...................<7.5Pediatrics: 7-12....................<8.0Pediatrics: 0-6..................... 7.5-8.5American Diabetes Association. Diabetes Care 33(S1)May 2009 Performed By: #### 5 3315-8 #### TRE Nichols ([id number]) [facility] ([facility]) [address] [place] [address] Hepatitis C virus Abon 06-09 HCV Ab Ql (S) Non-Reactive Normal Nonreactive [facility] Comment on above: Result Comment: Resu lts from patients taking biotin supplements or receiving high-dose biotin therapy should be interpreted with caution due to possible interference with this test. Providers may contact their local laboratory for further information. Performed By: #### 5 3315-8 #### TRE Nichols ([id number]) [facility] ([facility]) [address] [place] [address] 33619 Iron and Iron binding capaci ty panelon 06-09-2023 Iron [Mass/Vol] 77 ug/dL Normal 35-150 [facility] Comment on above: Performed By: #### 5 0190-8 #### TRE Nichols ([id number]) [facility] ([facility]) [address] [place] [address] 08265 Iron binding capacity [Mass/Vol] 381 ug/dL Normal 240-445 [facility] Comment on above: Performed By: #### 5 0190-8 #### TRE Nichols ([id number]) [facility] ([facility]) [address] [place] [address] 14685 Iron binding capacity.unsaturated [Mass/Vol] 304 ug/dL Normal 110-370 [facility] Comment on above: Performed By: #### 5 0190-8 #### TRE Nichols ([id number]) [facility] ([facility]) [address] [place] [address] 26445 Iron saturation [Mass fraction] 20 % Low 25-45 [facility] Comment on above: Performed By: #### 5 0190-8 #### TRE Nichols ([id number]) [facility] ([facility]) [address] [place] [address] 02910 Lipid 1996 panelon Cholesterol [Mass/Vol] 297 mg/dL High 0-199 [facility] Comment on above: Result Comment: Age [...] By: #### 2 4331-1 #### TRE Nichols ([id number]) [facility] ([facility]) [address] [place] [address] 16981 Cholesterol in HDL [Mass/Vol] 73.2 mg/dL Normal [facility] Comment on above: Result Comment: Age Very Low Low Normal High 0-19 Y < 35 < 40 40-45 ---- 20-24 Y ---- < 40 >45 ---- >24 Y ---- < 40 40-60 >60 Performed By: #### 2 4331-1 #### TRE Nichols ([id number]) [facility] ([facility]) [address] [place] [address] 79145 Cholesterol in LDL [Mass/Vol] 177 mg/dL High <=99 [facility] Comment on above: Result Comment: Near Borderline AGE Desirable Optimal High High Very High 0-19 Y 0 - 109 --- 110-129 >/= 130 ---- 20-24 Y 0 - 119 --- 120-159 >/= 160 ---- >24 Y 0 - 99 100-129 130-159 160-189 >/=190 Performed By: #### 2 4331-1 #### TRE Nichols ([id number]) [facility] ([facility]) [address] [place] [address]36 Cholesterol in VLDL [Mass/Vol] 47 mg/dL High 0-40 [facility] Comment on above: Performed By: #### 2 4331-1 #### TRE Nichols ([id number]) [facility] ([facility]) [address] [place] [address] 88169 CHOLESTEROL/HDL RATIO 4.1 Normal [facility] Comment on above: Result Comment: Ref Values Desirable < 3.4 High Risk > 5.0 Performed By: #### 2 4331-1 #### TRE Nichols ([id number]) [facility] ([facility]) [address] [place] [address] 69500 NON HDL CHOLESTEROL 224 mg/dL High 0-149 [facility] Comment on above: Result Comment: Age Desirable Borderline High High Very High 0-19 Y 0 - 119 120 - 144 >/= 145 >/= 160 20-24 Y 0 - 149 150 - 189 >/= 190 ---- >24 Y 30 mg/dL above LDL Cholesterol goal Performed By: #### 2 4331-1 #### TRE Nichols ([id number]) [facility] ([facility]) [address] [place] [address] Triglyceride [Mass/Vol] 236 mg/dL High 0-149 [facility] Comment on above: Result Comment: Age [...] By: #### 2 4331-1 #### TRE Nichols ([id number]) [facility] ([facility]) [address] [place], [place] [phone] Magnesiumon 06-09-2023 Magnesium [Mass/Vol] 2.19 mg/dL Normal 1.60-2.40 [facility] Comment on above: Performed By: #### 1 9123-9 #### TRE Nichols ([id number]) [facility] ([facility]) [address] [place] [address] 42430 TSH WITH REFLEX TO FREE T4 I F ABNORMALon 06-09-2023 TSH Qn 4.78 m[IU]/L High 0.44-3.98 [facility] Comment on above: Order Comment: TSH t esting is performed using different testing methodology at [facility] than at [facility]. Direct result comparisons should only be made within the same method. Performed By: #### T CHANDRIKA #### TRE Nichols ([id number]) [facility] ([facility]) [address] [place] [address] 27904 Testosterone Free/Testostero ne.total [Mass fraction]on 06-09-2023 Testosterone [Mass/Vol] 638 ng/dL Normal 250-1100 [facility] Comment on above: Result Comment: For additional information, please refer to http://education.[employer]/faq/ [email or web address] (This link is being provided for informational/ educational purposes only.) This test was developed and its analytical performance characteristics have been determined by [employer] [place], [place]. It has not been cleared or approved by the U.S. Food and Drug Administration. This assay has been validated pursuant to the CLIA regulations and is used for clinical purposes. Performed By: #### 5 3315-8 #### TRE Nichols ([id number]) [facility] ([facility]) [address] [place] [address] 53326 Testosterone Free [Mass/Vol] 131.4 pg/mL Normal 35.0-155.0 [facility] Comment on above: Result Comment: This test was developed and its analytical performance characteristics have been determined by [employer] [place], [place]. It has not been cleared or approved by the U.S. Food and Drug Administration. This assay has been validated pursuant to the CLIA regulations and is used for clinical purposes. Performed By: #### 5 3315-8 #### TRE Nichols ([id number]) [facility] ([facility]) [address] [place] [address] 69863 Thyroxine.freeon 06-09-2023 Free T4 [Mass/Vol] 1.10 ng/dL Normal 0.78-1.48 [facility] Comment on above: Order Comment: Thyro xine Free testing is performed using different testing methodology at [facility] than at other system hospitals. Direct result comparisons should only be made within the same method. Performed By: #### 5 3315-8 #### TRE Nichols ([id number]) [facility] ([facility]) [address] [place] [address] 86039 Urateon 06-09-2023 Urate [Mass/Vol] 6.3 mg/dL Normal 4.0-7.5 [facility] Comment on above: Result Comment: Nina puncture immediately after or during the administration of Metamizole may lead to falsely low results. Testing should be performed immediately prior to Metamizole dosing. Performed By: #### 3 084-1 #### TRE Nichols ([id number]) [facility] ([facility]) [address] [place] [address] 30722 Urinalysis microscopic panel Auto Ql (U)on 06-09-2023 RBC Auto (Urine sed) [#/Area] NONE Normal NONE, 1-2, 3-5 [facility] Comment on above: Performed By: #### 5 3315-8 #### TRE Nichols ([id number]) [facility] ([facility]) [address] [place] [address] 02671 WBC Auto (Urine sed) [#/Area] NONE Normal 1-5, NONE [facility] Comment on above: Performed By: #### 5 3315-8 #### TRE Nichols ([id number]) [facility] ([facility]) [address] [place] [address] 22907 Glucose Glucometer (BldC) [M ass/Vol]Ordered By: Colten Crystal on 03-23-2023 Glucose [Mass/Vol] 186 mg/dL 74-106 [facility] Comment on above: MANAGEMENT OF PATIEN T CARE PER NURSING PROTOCOL Basophil percentageOrdered B y: William Bowers on 03-21-2023 Bilirubin [Mass/Vol] 1.30 mg/dL 0.20-1.00 [facility] Comment on above: For patients on eltr ombopag therapy, use of Dimension [place] TBIL is not recommended. Chloride [Moles/Vol] 98 mmol/L 98-107 [facility] Glucose [Mass/Vol] 263 mg/dL 74-106 [facility] Comment on above: Glucose result great er than or equal to 200 mg/dLsuggests DIABETES MELLITUS per A.D.A. criteria. Potassium [Moles/Vol] 4.4 mmol/L 3.5-5.1 [facility] Protein [Mass/Vol] 7.4 g/dL 6.4-8.2 [facility] Sodium [Moles/Vol] 133 mmol/L 136-145 [facility] Laboratory - Chemistry and C hemistry - challengeOrdered By: William Bowers on 03-21-2023 ALP [Catalytic activity/Vol] 76 U/L 45-117 [facility] ALT [Catalytic activity/Vol] 59 U/L 16-61 [facility] CO2 [Moles/Vol] 24.0 mmol/L 21.0-32.0 [facility] Globulin (S) [Mass/Vol] 4.0 g/dL 2.2-4.2 [facility] Urea nitrogen/Creatinine [Mass ratio] 16.9 mg/mg 10-20 [facility] No Panel InformationOrdered By: William Bowers on 03-21-2023 Estimated Creatinine Clearance Calc 133.17 ml/min [facility] Estimated GFR (MDRD) Amer 123 mL/min >60 [facility] Comment on above: GFR Calc Estimated GFR (MDRD) Non-Af Amer 102 mL/min >60 [facility] Comment on above: Non- GFR Calc Serum or plasma albumin bucky urement (mass/volume)Ordered By: William Bowers on 03-21-2023 Albumin [Mass/Vol] 3.4 g/dL 3.2-5.0 [facility] Serum or plasma albumin/glob ulin mass ratioOrdered By: William Bowers on 03-21-2023 Albumin/Globulin [Mass ratio] 0.8 {ratio} 0.9-2.4 [facility] Serum or plasma calcium bucky urement (mass/volume)Ordered By: William Bowers on 03-21-2023 Calcium [Mass/Vol] 9.0 mg/dL 8.5-10.1 [facility] Serum or plasma creatinine m easurement (mass/volume)Ordered By: William Bowers on 03-21-2023 Creatinine [Mass/Vol] 0.95 mg/dL 0.70-1.30 [facility] Comment on above: The validity of the calculated GFR & GFRAA in patients over 70 years has not been determined. Clinical correlation is essential. Serum or plasma urea nitroge n measurement (mass/volume)Ordered By: William Bowers on 03-21-2023 Urea nitrogen [Mass/Vol] 16 mg/dL 7-18 [facility] Thin prep Papanicolaou smear with manual screeningOrdered By: William Bowers on 03-21-2023 Thin prep Papanicolaou smear with manual screening 36 U/L 15- [facility] Thin prep Papanicolaou smear with manual screening 11 5-15 [facility] Laboratory - Drug toxicology Ordered By: Dafne Cornell on 03-20-2023 Amphetamines Ql (U) Negative <1000 ng/mL [facility] Benzodiazepines Ql (U) Negative < 200 ng/mL [facility] Cannabinoids Screen Ql (U) Negative < 50 ng/mL [facility] Cocaine Ql (U) Negative < 300 ng/mL [facility] Opiates Ql (U) Negative < 300 ng/mL [facility] No Panel InformationOrdered By: Dafne Cornell on 03-20-2023 MDMA (Ecstasy) Screen Negative < 500 ng/mL [facility] Urine Barbiturates Screen Negative < 200 ng/mL [facility] Urine Drug Screen Comment [facility] Comment on above: CONFIRMATORY TESTING FOR [...] Urine Methadone Screen Negative < 300 ng/mL [facility] Ethyl Alcohol Level 353.0 mg/dL [facility] Comment on above: Critical Result(s) Rj [...] Phencyclidine Ql (U) Negative < 25 ng/mL [facility] Office Visit (Internal Medic ine)on 07-22-2022 [...] Never smoker Tobacco Use Screening; Status:Complete; Done: [id number] Perform:Not Applicable;Ordered; For:SocHx: Never smoker; Ordered By:Dexter [...] reason.; Your symptoms return during treatment Call 227 if: You are thinking about harming yourself [...] B12 folic acid and thiamine psych and renal social worker evaluation done to follow Hyperlipidemia Lipitor Anxiety depression lorazepam lipidemia Hypertension Hyperlipidemia diet and exercise Gastritis Pepcid Diabetes continue NovoLog insulin pump Refer patient to psych and federal aid coordinator According to the mom patient's and her comorbid condition patient not able to work at least for next 6 to 9 months advised follow-up with the psych and endocrine Chief Complaint Chief Complaints Visit For: Other follow up [facility] papers Adult Risk Screening Initial Fall Risk Screening: JORGE has not fallen in the last 6 months. History of Present Illness 27-year-old patient of hypertension hyperlipidemia diabetes alcohol abuse multiple hospitalization because of alcohol withdrawal and detox program and a DKA Seen by psych and federal aid coordinator Because of underlying mental health problem and [...] NameInstruction Atorvas (more content not included)... Normal Catglobe Tobacco Screening.on 023 Fall risk assessment a) No falls within the last year [facility] Work Phone: Tobacco use status [facility] b) No [facility] Work Phone: Assessment of wrist artery p atency prior to arterial punctureOrdered By: Dr. Cedillo on 07-16-2022 Arterial patency Wrist artery --pre arterial puncture Positive [facility] Base excessOrdered By: Dr. Destiny lewis on 07-16-2022 Base excess Calc (BldV) [Moles/Vol] -12 mmol/L -- [facility] Basophil percentageOrdered B y: Dr. Cedillo on 07-16-2022 Bilirubin [Mass/Vol] 0.60 mg/dL 0.20-1.00 [facility] Comment on above: For patients on eltr ombopag therapy, use of Dimension [place] TBIL is not recommended. Chloride [Moles/Vol] 102 mmol/L 98-107 [facility] Glucose [Mass/Vol] 462 mg/dL 74-106 [facility] Comment on above: Critical Result(s) C alled at: 05:11:14 07/16/2022 by: SIMONE SALAZAR TO EUNICE GARCIA. Results read back by same.Glucose result greater than or equal to 200 mg/dLsuggests DIABETES MELLITUS per A.D.A. criteria. Potassium [Moles/Vol] 3.1 mmol/L 3.5-5.1 [facility] Protein [Mass/Vol] 5.9 g/dL 6.4-8.2 [facility] Sodium [Moles/Vol] 134 mmol/L 136-145 [facility] Basophil percentage 13.3 mmol/L 22-26 [facility] Basophils/100 WBC (Bld) 98 % 95-99 [facility] CO2 (BldA) [Partial pressure ]Ordered By: Dr. Cedillo on 07-16-2022 CO2 (Bld) [Partial pressure] 23.1 mm[Hg] 35-45 [facility] Glucose Glucometer (BldC) [M ass/Vol]Ordered By: Dr. Murphy on 07-16-2022 Glucose [Mass/Vol] 87 mg/dL 74-106 [facility] Comment on above: MANAGEMENT OF PATIEN T CARE PER NURSING PROTOCOL Laboratory - Chemistry and C hemistry - challengeOrdered By: Dr. Cedillo on 07-16-2022 ALP [Catalytic activity/Vol] 75 U/L 45-117 [facility] ALT [Catalytic activity/Vol] 48 U/L 16-61 [facility] CO2 [Moles/Vol] 19.0 mmol/L 21.0-32.0 [facility] Globulin (S) [Mass/Vol] 2.8 g/dL 2.2-4.2 [facility] Urea nitrogen/Creatinine [Mass ratio] 11.1 mg/mg 10-20 [facility] No Panel InformationOrdered By: Dr. Cedillo on 07-16-2022 Estimated Creatinine Clearance Calc 100.40 ml/min [facility] Estimated GFR (MDRD) Amer 89 mL/min >60 [facility] Comment on above: GFR Calc Estimated GFR (MDRD) Non-Af Amer 73 mL/min >60 [facility] Comment on above: Non- GFR Calc Blood Gas Oxygen Percent 21 [facility] Blood Gas Sample Site R Radial [facility] Blood Gas Specimen Type ART [facility] Blood Gas Total CO2 14 mmol/L [facility] Room Air [facility] Ethyl Alcohol Level < 3.0 mg/dL [facility] Comment on above: The serum:whole bloo d ethanol ratio is approximately 1.14and varies slightly with hematocrit. Medical Alcohol reference interval and critical value innon-tolerant individuals; 50 - 100 Impairment 100 Intoxication 100 - 250 Severe Poisoning 250 - 400 Deep/possible fatal coma Oxygen (BldA) [Partial press ure]Ordered By: Dr. Cedillo on 07-16-2022 Oxygen (Bld) [Partial pressure] 104 mmHG 75-100 [facility] Serum or plasma albumin bucky urement (mass/volume)Ordered By: Dr. Cedillo on 07-16-2022 Albumin [Mass/Vol] 3.1 g/dL 3.2-5.0 [facility] Serum or plasma albumin/glob ulin mass ratioOrdered By: Dr. Cedillo on 07-16-2022 Albumin/Globulin [Mass ratio] 1.1 {ratio} 0.9-2.4 [facility] Serum or plasma calcium bucky urement (mass/volume)Ordered By: Dr. Cedillo on 07-16-2022 Calcium [Mass/Vol] 7.7 mg/dL 8.5-10.1 [facility] Serum or plasma creatinine m easurement (mass/volume)Ordered By: Dr. Cedillo on 07-16-2022 Creatinine [Mass/Vol] 1.26 mg/dL 0.70-1.30 [facility] Comment on above: The validity of the calculated GFR & GFRAA in patients over 70 years has not been determined. Clinical correlation is essential. Serum or plasma urea nitroge n measurement (mass/volume)Ordered By: Dr. Cedillo on 07-16-2022 Urea nitrogen [Mass/Vol] 14 mg/dL 7-18 [facility] Thin prep Papanicolaou smear with manual screeningOrdered By: Dr. Cedillo on 07-16-2022 Thin prep Papanicolaou smear with manual screening 27 U/L 15-37 [facility] Thin prep Papanicolaou smear with manual screening 13 5-15 [facility] Whole blood hemoglobin A1c/t otal hemoglobin ratio (mass fraction)Ordered By: Dr. Cedillo on 07-16-2022 HbA1c (Bld) [Mass fraction] 8.5 % 3.8-5.6 [facility] Comment on above: Normal < 5.7 % Predi abetic 5.7 - 6.4 % Diabetic >or= 6.5 % Please note range changes. pH measurementOrdered By: Dr Danay Cedillo on 07-16-2022 pH (Unsp spec) 7.37 [pH] 7.35-7.45 [facility] Absolute lymphocyte countOrd ered By: Dr. Hopper on 07-15-2022 Lymphocytes Auto (Unsp spec) [#/Vol] 0.99 10*3/uL 0.83-4.51 [facility] Basophil percentageOrdered B y: Dr. Hopper on 07-15-2022 Basophils/100 WBC (Bld) 1.1 % 0-1 [facility] Chloride [Moles/Vol] 96 mmol/L 98-107 [facility] Eosinophils/100 WBC (Bld) 0.1 % 0-5 [facility] Glucose [Mass/Vol] 285 mg/dL 74-106 [facility] Comment on above: Glucose result great er than or equal to 200 mg/dLsuggests DIABETES MELLITUS per A.D.A. criteria. Neutrophils (Bld) [#/Vol] 9.2 10*3/uL 2.0-7.7 [facility] [facility] Neutrophils/100 WBC (Bld) 77.3 % 47-70 [facility] Potassium [Moles/Vol] 3.8 mmol/L 3.5-5.1 [facility] Sodium [Moles/Vol] 133 mmol/L 136-145 [facility] WBC (Bld) [#/Vol] 11.9 10*3/uL 4.4-11.0 [facility] Blood erythrocytes count (nu mber/volume)Ordered By: Dr. Hopper on 07-15-2022 RBC (Bld) [#/Vol] 5.34 10*6/uL 4.6-6.2 [facility] Blood hemoglobin measurement (mass/volume)Ordered By: Dr. Hopper on 07-15-2022 Hemoglobin (Bld) [Mass/Vol] 16.6 g/dL 13.0-16.5 [facility] Blood lymphocytes/100 leukoc ytesOrdered By: Dr. Hopper on 07-15-2022 Lymphocytes/100 WBC (Bld) 8.3 % 19-41 [facility] Blood manual differential co mment interpretation (narrative result)Ordered By: Dr. Hopper on 07-15-2022 Manual differential comment Gabriel (Bld) [Interp] SCANNED [facility] Comment on above: MONOCYTOSIS NOTED Blood monocytes/100 leukocyt esOrdered By: [address] Hopper on 07-15-2022 Monocytes/100 WBC (Bld) 12.8 % 0-10 [facility] Blood platelet mean volumeOr dered By: Dr. Hopper on 07-15-2022 Platelet mean volume (Bld) [Entitic vol] 9.8 fL 6.2-12.0 [facility] Determination of erythrocyte mean corpuscular volume (MCV)Ordered By: Dr. Hopper on 07-15-2022 MCV (RBC) [Entitic vol] 90.4 fL 80-94 [facility] Glucose Glucometer (BldC) [M ass/Vol]Ordered By: Dr. Cedillo on 07-15-2022 Glucose [Mass/Vol] 219 mg/dL 74-106 [facility] Comment on above: MANAGEMENT OF PATIEN T CARE PER NURSING PROTOCOL Hematocrit Auto (Bld) [Volum e fraction]Ordered By: Dr. Hopper on 07-15-2022 Hematocrit (Bld) [Volume fraction] 48.3 % 40-54 [facility] Laboratory - Chemistry and C hemistry - challengeOrdered By: Dr. Hopper on 07-15-2022 CO2 [Moles/Vol] 10.0 mmol/L 21.0-32.0 [facility] Urea nitrogen/Creatinine [Mass ratio] 12.6 mg/mg 03-14 [facility] Laboratory - Chemistry and C hemistry - challengeOrdered By: Dr. Cedillo on 07-15-2022 Magnesium [Mass/Vol] 2.2 mg/dL 1.6-2.6 [facility] Laboratory - Hematology and Cell countsOrdered By: Dr. Hopper on 07-15-2022 Erythrocyte distribution width (RBC) [Entitic vol] 42.1 fL 35.1-43.9 [facility] Erythrocyte distribution width (RBC) [Ratio] 12.8 % 11.6-14.6 [facility] Immature granulocytes/100 WBC (Bld) 0.400 % 0.0-0.9 [facility] Comment on above: IG% - Immature Granu locytes (promyelocytes, myelocytes and metamyelocytes) > 1% indicates that a LEFT SHIFT is Present. MCH (RBC) [Entitic mass] 31.1 pg 27.0-32.0 [facility] Nucleated RBC/100 WBC (Bld) [Ratio] 0 % 0-5 [facility] MCHC Auto (RBC) [Mass/Vol]Or dered By: Dr. Hopper on 07-15-2022 MCHC (RBC) [Mass/Vol] 34.4 g/dL 32-36 [facility] No Panel InformationOrdered By: Dr. Hopper on 07-15-2022 Estimated Creatinine Clearance Calc 79.56 ml/min [facility] Estimated GFR (MDRD) Amer 68 mL/min >60 [facility] Comment on above: GFR Calc Estimated GFR (MDRD) Non-Af Amer 56 mL/min >60 [facility] Comment on above: Non- GFR Calc Platelets bldOrdered By: Dr. Hopper on 07-15-2022 Platelets (Bld) [#/Vol] 163 10*3/uL 150-450 [facility] Review by pathologistOrdered By: Dr. Hopper on 07-15-2022 Pathologist review Gabriel (Unsp spec) [Interp] May foll [facility] Serum or plasma acetone bucky urement (mass/volume)Ordered By: Dr. Hopper on 07-15-2022 Acetone [Mass/Vol] MODERATE NEG [facility] Serum or plasma calcium bucky urement (mass/volume)Ordered By: Dr. Hopper on 07-15-2022 Calcium [Mass/Vol] 9.8 mg/dL 8.5-10.1 [facility] Serum or plasma creatinine m easurement (mass/volume)Ordered By: Dr. Hopper on 07-15-2022 Creatinine [Mass/Vol] 1.59 mg/dL 0.70-1.30 [facility] Comment on above: The validity of the calculated GFR & GFRAA in patients over 70 years has not been determined. Clinical correlation is essential. Serum or plasma urea nitroge n measurement (mass/volume)Ordered By: Dr. Hopper on 07-15-2022 Urea nitrogen [Mass/Vol] 20 mg/dL 7-18 [facility] Thin prep Papanicolaou smear with manual screeningOrdered By: Dr. Hopper on 07-15-2022 Thin prep Papanicolaou smear with manual screening 27 5-15 [facility] Thin prep Papanicolaou smear with manual screeningOrdered By: Dr. Cedillo on 07-15-2022 Thin prep Papanicolaou smear with manual screening 310 mOsm/KG 275-295 [facility] Basophil percentageOrdered B y: Dr. Murphy on 06-20-2022 Chloride [Moles/Vol] 101 mmol/L 98-107 [facility] Glucose [Mass/Vol] 94 mg/dL 74-106 [facility] Potassium [Moles/Vol] 4.2 mmol/L 3.5-5.1 [facility] Sodium [Moles/Vol] 137 mmol/L 136-145 [facility] Laboratory - Chemistry and C hemistry - challengeOrdered By: Dr. Murphy on 06-20-2022 CO2 [Moles/Vol] 29.0 mmol/L 21.0-32.0 [facility] Urea nitrogen/Creatinine [Mass ratio] 9.3 mg/mg 10-20 [facility] No Panel InformationOrdered By: Dr. Murphy on 06-20-2022 Estimated Creatinine Clearance Calc 147.10 ml/min [facility] Estimated GFR (MDRD) Amer 138 mL/min >60 [facility] Comment on above: GFR Calc Estimated GFR (MDRD) Non-Af Amer 114 mL/min >60 [facility] Comment on above: Non- GFR Calc Serum or plasma calcium bucky urement (mass/volume)Ordered By: Dr. Murphy on 06-20-2022 Calcium [Mass/Vol] 9.1 mg/dL 8.5-10.1 [facility] Serum or plasma creatinine m easurement (mass/volume)Ordered By: Dr. Murphy on 06-20-2022 Creatinine [Mass/Vol] 0.86 mg/dL 0.70-1.30 [facility] Comment on above: The validity of the calculated GFR & GFRAA in patients over 70 years has not been determined. Clinical correlation is essential. Serum or plasma urea nitroge n measurement (mass/volume)Ordered By: Dr. Murphy on 06-20-2022 Urea nitrogen [Mass/Vol] 8 mg/dL 7-18 [facility] Thin prep Papanicolaou smear with manual screeningOrdered By: Dr. Murphy on 06-20-2022 Thin prep Papanicolaou smear with manual screening 7 5-15 [facility] Basophil percentageOrdered B y: Dr. Murphy on 06-19-2022 Basophil percentage 3.8 mg/dL 2.5-4.9 [facility] Bilirubin [Mass/Vol] 0.50 mg/dL 0.20-1.00 [facility] Comment on above: For patients on eltr ombopag therapy, use of Dimension [place] TBIL is not recommended. Protein [Mass/Vol] 6.2 g/dL 6.4-8.2 [facility] Laboratory - Chemistry and C hemistry - challengeOrdered By: Dr. Murphy on 06-19-2022 ALP [Catalytic activity/Vol] 73 U/L 45-117 [facility] ALT [Catalytic activity/Vol] 42 U/L 16-61 [facility] Globulin (S) [Mass/Vol] 3.1 g/dL 2.2-4.2 [facility] Magnesium [Mass/Vol] 2.0 mg/dL 1.6-2.6 [facility] Serum or plasma albumin bucky urement (mass/volume)Ordered By: Dr. Murphy on 06-19-2022 Albumin [Mass/Vol] 3.1 g/dL 3.2-5.0 [facility] Serum or plasma albumin/glob ulin mass ratioOrdered By: Dr. Murphy on 06-19-2022 Albumin/Globulin [Mass ratio] 1.0 {ratio} 0.9-2.4 [facility] Thin prep Papanicolaou smear with manual screeningOrdered By: Dr. Murphy on 06-19-2022 Thin prep Papanicolaou smear with manual screening 27 U/L 15-37 [facility] Absolute lymphocyte countOrd ered By: Dr. Patel on 06-17-2022 Lymphocytes Auto (Unsp spec) [#/Vol] 2.22 10*3/uL 0.83-4.51 [facility] Basophil percentageOrdered B y: Dr. Patel on 06-17-2022 Basophils/100 WBC (Bld) 0.5 % 0-1 [facility] Bilirubin [Mass/Vol] 0.30 mg/dL 0.20-1.00 [facility] Comment on above: For patients on eltr ombopag therapy, use of [place] TBIL is not recommended. Chloride [Moles/Vol] 111 mmol/L 98-107 [facility] Eosinophils/100 WBC (Bld) 1.5 % 0-5 [facility] Glucose [Mass/Vol] 203 mg/dL 74-106 [facility] Comment on above: Glucose result great er than or equal to 200 mg/dLsuggests DIABETES MELLITUS per A.D.A. criteria. Neutrophils (Bld) [#/Vol] 3.2 10*3/uL 2.0-7.7 [facility] Neutrophils/100 WBC (Bld) 52.8 % 47-70 [facility] Potassium [Moles/Vol] 3.9 mmol/L 3.5-5.1 [facility] Protein [Mass/Vol] 7.7 g/dL 6.4-8.2 [facility] Sodium [Moles/Vol] 145 mmol/L 136-145 [facility] WBC (Bld) [#/Vol] 6.1 10*3/uL 4.4-11.0 [facility] Blood erythrocytes count (nu mber/volume)Ordered By: Dr. Patel on 06-17-2022 RBC (Bld) [#/Vol] 4.84 10*6/uL 4.6-6.2 [facility] Blood hemoglobin measurement (mass/volume)Ordered By: Dr. Patel on 06-17-2022 Hemoglobin (Bld) [Mass/Vol] 15.3 g/dL 13.0-16.5 [facility] Blood lymphocytes/100 leukoc ytesOrdered By: Dr. Patel on 06-17-2022 Lymphocytes/100 WBC (Bld) 36.5 % 19-41 [facility] Blood monocytes/100 leukocyt esOrdered By: Dr. Patel on 06-17-2022 Monocytes/100 WBC (Bld) 8.2 % 0-10 [facility] Blood platelet mean volumeOr dered By: Dr. Patel on 06-17-2022 Platelet mean volume (Bld) [Entitic vol] 9.4 fL 6.2-12.0 [facility] Determination of erythrocyte mean corpuscular volume (MCV)Ordered By: Dr. Patel on 06-17-2022 MCV (RBC) [Entitic vol] 90.5 fL 80-94 [facility] Hematocrit Auto (Bld) [Volum e fraction]Ordered By: Dr. Patel on 06-17-2022 Hematocrit (Bld) [Volume fraction] 43.8 % 40-54 [facility] INR in Blood by Coagulation assayOrdered By: Dr. Patel on 06-17-2022 INR Coag (Bld) [Relative time] 1.0 {INR} [facility] Laboratory - Chemistry and C hemistry - challengeOrdered By: Dr. Patel on 06-17-2022 ALP [Catalytic activity/Vol] 93 U/L 45-117 [facility] ALT [Catalytic activity/Vol] 74 U/L 16-61 [facility] CO2 [Moles/Vol] 26.0 mmol/L 21.0-32.0 [facility] Globulin (S) [Mass/Vol] 3.8 g/dL 2.2-4.2 [facility] Urea nitrogen/Creatinine [Mass ratio] 7.2 mg/mg 10-20 [facility] Laboratory - CoagulationOrde red By: Dr. Patel on 06-17-2022 PT Coag (PPP) [Time] 13.1 s 11.7-14.9 [facility] Laboratory - Drug toxicology Ordered By: Dr. Patel on 06-17-2022 Amphetamines Ql (U) Negative <1000 ng/mL [facility] Benzodiazepines Ql (U) Negative < 200 ng/mL [facility] Cannabinoids Screen Ql (U) Negative < 50 ng/mL [facility] Cocaine Ql (U) Negative < 300 ng/mL [facility] Opiates Ql (U) Negative < 300 ng/mL [facility] Laboratory - Hematology and Cell countsOrdered By: Dr. Patel on 06-17-2022 Erythrocyte distribution width (RBC) [Entitic vol] 45.5 fL 35.1-43.9 [facility] Erythrocyte distribution width (RBC) [Ratio] 13.7 % 11.6-14.6 [facility] Immature granulocytes/100 WBC (Bld) 0.500 % 0.0-0.9 [facility] Comment on above: IG% - Immature Granu locytes (promyelocytes, myelocytes and metamyelocytes) > 1% indicates that a LEFT SHIFT is Present. MCH (RBC) [Entitic mass] 31.6 pg 27.0-32.0 [facility] Nucleated RBC/100 WBC (Bld) [Ratio] 0 % 0-5 [facility] MCHC Auto (RBC) [Mass/Vol]Or dered By: Dr. Patel on 06-17-2022 MCHC (RBC) [Mass/Vol] 34.9 g/dL 32-36 [facility] No Panel InformationOrdered By: Dr. Patel on 06-17-2022 Estimated Creatinine Clearance Calc 152.42 ml/min [facility] Estimated GFR (MDRD) Amer 144 mL/min >60 [facility] Comment on above: GFR Calc Estimated GFR (MDRD) Non-Af Amer 119 mL/min >60 [facility] Comment on above: Non- GFR Calc Ethyl Alcohol Level 334.0 mg/dL [facility] Comment on above: Critical Result(s) C alled at: 09:34:32 06/17/2022 by: Tonya Marrero. Results read back by same.The serum:whole blood ethanol ratio is approximately 1.14and varies slightly with hematocrit. Medical Alcohol reference interval and critical value innon-tolerant individuals; 50 - 100 Impairment 100 Intoxication 100 - 250 Severe Poisoning 250 - 400 Deep/possible fatal coma MDMA (Ecstasy) Screen Negative < 500 ng/mL [facility] Urine Barbiturates Screen Negative < 200 ng/mL [facility] Urine Drug Screen Comment [facility] Comment on above: CONFIRMATORY TESTING FOR [...] Methadone Screen Negative < 300 ng/mL [facility] Platelets bldOrdered By: Dr. Patel on 06-17-2022 Platelets (Bld) [#/Vol] 192 10*3/uL 150-450 [facility] Serum or plasma acetone bucky urement (mass/volume)Ordered By: Dr. Patel on 06-17-2022 Acetone [Mass/Vol] Negative NEG [facility] Serum or plasma albumin bucky urement (mass/volume)Ordered By: Dr. Patel on 06-17-2022 Albumin [Mass/Vol] 3.9 g/dL 3.2-5.0 [facility] Serum or plasma albumin/glob ulin mass ratioOrdered By: Dr. Patel on 06-17-2022 Albumin/Globulin [Mass ratio] 1.0 {ratio} 0.9-2.4 [facility] Serum or plasma calcium bucky urement (mass/volume)Ordered By: Dr. Patel on 06-17-2022 Calcium [Mass/Vol] 8.7 mg/dL 8.5-10.1 [facility] Serum or plasma creatinine m easurement (mass/volume)Ordered By: Dr. Patel on 06-17-2022 Creatinine [Mass/Vol] 0.83 mg/dL 0.70-1.30 [facility] Comment on above: The validity of the calculated GFR & GFRAA in patients over 70 years has not been determined. Clinical correlation is essential. Serum or plasma urea nitroge n measurement (mass/volume)Ordered By: Dr. Patel on 06-17-2022 Urea nitrogen [Mass/Vol] 6 mg/dL 7-18 [facility] Thin prep Papanicolaou smear with manual screeningOrdered By: Dr. Patel on 06-17-2022 Thin prep Papanicolaou smear with manual screening 81 U/L 15-37 [facility] Thin prep Papanicolaou smear with manual screening 8 5-15 [facility] Urine phencyclidine (PCP) de tectionOrdered By: Dr. Patel on 06-17-2022 Phencyclidine Ql (U) Negative < 25 ng/mL [facility] Whole blood hemoglobin A1c/t otal hemoglobin ratio (mass fraction)Ordered By: Dr. Murphy on 06-17-2022 HbA1c (Bld) [Mass fraction] 8.2 % 3.8-5.6 [facility] Comment on above: Normal < 5.7 [...] diabetes with complication advised to follow-up with federal aid coordinator Moderate alcohol intake B12 folic acid thiamine given psychological evaluation Anxiety with depression given Ativan and Wellbutrin Palpitation increase Toprol to 50 mg a day Hyperlipidemia Lipitor Proteinuria ramipril Diabetes endocrine follow-up Obesity diet and exercise I spent 15 minutes obtaining and discussing depression screening using pHq-2 questions with patient documented in the chart treatment plan discussI spent 15 minutes [id number] major depressive disorder Advice= Serum cortisol B12 [...] Atorvastatin C (more content not included)... Normal [place] Tobacco Screening.on 023 Adult depression screening assessment Yes [facility] Work Phone: Fall risk assessment a) No falls within the last year [facility] Work Phone: Tobacco use status CP b) No [facility] Work Phone: Absolute lymphocyte countOrd ered By: Dr. Nice on 06-01-2022 Lymphocytes Auto (Unsp spec) [#/Vol] 1.13 10*3/uL 0.83-4.51 [facility] Basophil percentageOrdered B y: Dr. Nice on 06-01-2022 Basophils/100 WBC (Bld) 0.3 % 0-1 [facility] Bilirubin [Mass/Vol] 1.00 mg/dL 0.20-1.00 [facility] Comment on above: For patients on eltr ombopag therapy, use of [place] TBIL is not recommended. Chloride [Moles/Vol] 100 mmol/L 98-107 [facility] Eosinophils/100 WBC (Bld) 1.4 % 0-5 [facility] Glucose [Mass/Vol] 104 mg/dL 74-106 [facility] Comment on above: Fasting Glucose resu lt from 100 to 125 mg/dL suggests IMPAIRED HOMEOSTASIS per A.D.A. criteria. Neutrophils (Bld) [#/Vol] 7.4 10*3/uL 2.0-7.7 [facility] Neutrophils/100 WBC (Bld) 75.6 % 47-70 [facility] Potassium [Moles/Vol] 3.4 mmol/L 3.5-5.1 [facility] Protein [Mass/Vol] 7.1 g/dL 6.4-8.2 [facility] Sodium [Moles/Vol] 139 mmol/L 136-145 [facility] WBC (Bld) [#/Vol] 9.8 10*3/uL 4.4-11.0 [facility] Blood erythrocytes count (nu mber/volume)Ordered By: Dr. Nice on 06-01-2022 RBC (Bld) [#/Vol] 4.84 10*6/uL 4.6-6.2 [facility] Blood hemoglobin measurement (mass/volume)Ordered By: Dr. Nice on 06-01-2022 Hemoglobin (Bld) [Mass/Vol] 15.5 g/dL 13.0-16.5 [facility] Blood lymphocytes/100 leukoc ytesOrdered By: Dr. Nice on 06-01-2022 Lymphocytes/100 WBC (Bld) 11.5 % 19-41 [facility] Blood monocytes/100 leukocyt esOrdered By: Dr. Nice on 06-01-2022 Monocytes/100 WBC (Bld) 10.9 % 0-10 [facility] Blood platelet mean volumeOr dered By: Dr. Nice on 06-01-2022 Platelet mean volume (Bld) [Entitic vol] 9.3 fL 6.2-12.0 [facility] Determination of erythrocyte mean corpuscular volume (MCV)Ordered By: Dr. Nice on 06-01-2022 MCV (RBC) [Entitic vol] 89.5 fL 80-94 [facility] Glucose Glucometer (BldC) [M ass/Vol]Ordered By: Dr. Nice on 06-01-2022 Glucose [Mass/Vol] 74 mg/dL 74-106 [facility] Comment on above: MANAGEMENT OF PATIEN T CARE PER NURSING PROTOCOL Hematocrit Auto (Bld) [Volum e fraction]Ordered By: Dr. Nice on 06-01-2022 Hematocrit (Bld) [Volume fraction] 43.3 % 40-54 [facility] Laboratory - Chemistry and C hemistry - challengeOrdered By: Dr. Nice on 06-01-2022 ALP [Catalytic activity/Vol] 93 U/L 45-117 [facility] ALT [Catalytic activity/Vol] 74 U/L 16-61 [facility] CO2 [Moles/Vol] 28.0 mmol/L 21.0-32.0 [facility] Globulin (S) [Mass/Vol] 3.6 g/dL 2.2-4.2 [facility] Urea nitrogen/Creatinine [Mass ratio] 9.4 mg/mg 10-20 [facility] Laboratory - Hematology and Cell countsOrdered By: Dr. Nice on 06-01-2022 Erythrocyte distribution width (RBC) [Entitic vol] 42.3 fL 35.1-43.9 [facility] Erythrocyte distribution width (RBC) [Ratio] 12.9 % 11.6-14.6 [facility] Immature granulocytes/100 WBC (Bld) 0.300 % 0.0-0.9 [facility] Comment on above: IG% - Immature Granu locytes (promyelocytes, myelocytes and metamyelocytes) > 1% indicates that a LEFT SHIFT is Present. MCH (RBC) [Entitic mass] 32.0 pg 27.0-32.0 [facility] Nucleated RBC/100 WBC (Bld) [Ratio] 0 % 0-5 [facility] MCHC Auto (RBC) [Mass/Vol]Or dered By: Dr. Nice on 06-01-2022 MCHC (RBC) [Mass/Vol] 35.8 g/dL 32-36 [facility] No Panel InformationOrdered By: Dr. Nice on 06-01-2022 Estimated Creatinine Clearance Calc 148.83 ml/min [facility] Estimated GFR (MDRD) Amer 141 mL/min >60 [facility] Comment on above: GFR Calc Estimated GFR (MDRD) Non-Af Amer 116 mL/min >60 [facility] Comment on above: Non- GFR Calc Platelets bldOrdered By: Dr. Nice on 06-01-2022 Platelets (Bld) [#/Vol] 169 10*3/uL 150-450 [facility] Serum or plasma albumin bucky urement (mass/volume)Ordered By: Dr. Nice on 06-01-2022 Albumin [Mass/Vol] 3.5 g/dL 3.2-5.0 [facility] Serum or plasma albumin/glob ulin mass ratioOrdered By: Dr. Nice on 06-01-2022 Albumin/Globulin [Mass ratio] 1.0 {ratio} 0.9-2.4 [facility] Serum or plasma calcium bucky urement (mass/volume)Ordered By: Dr. Nice on 06-01-2022 Calcium [Mass/Vol] 9.2 mg/dL 8.5-10.1 [facility] Serum or plasma creatinine m easurement (mass/volume)Ordered By: Dr. Nice on 06-01-2022 Creatinine [Mass/Vol] 0.85 mg/dL 0.70-1.30 [facility] Comment on above: The validity of the calculated GFR & GFRAA in patients over 70 years has not been determined. Clinical correlation is essential. Serum or plasma urea nitroge n measurement (mass/volume)Ordered By: Dr. Nice on 06-01-2022 Urea nitrogen [Mass/Vol] 8 mg/dL 7-18 [facility] Thin prep Papanicolaou smear with manual screeningOrdered By: Dr. Nice on 06-01-2022 Thin prep Papanicolaou smear with manual screening 103 U/L 15-37 [facility] Thin prep Papanicolaou smear with manual screening 11 5-15 [facility] Laboratory - Hematology and Cell countson 05-29-2022 HbA1c (Bld) [Mass fraction] 8.0 % [facility] Absolute lymphocyte countOrd ered By: ED PROVIDER on 05-03-2022 Lymphocytes Auto (Unsp spec) [#/Vol] 1.64 10*3/uL 0.83-4.51 [facility] Basophil percentageOrdered B y: Dr. Corrales on 05-03-2022 Basophil percentage 0-5 SEEN /hpf 0-5 [facility] Basophil percentageOrdered B y: ED PROVIDER on 05-03-2022 Basophils/100 WBC (Bld) 1.0 % 0-1 [facility] Bilirubin [Mass/Vol] 0.60 mg/dL 0.20-1.00 [facility] Comment on above: For patients on eltr ombopag therapy, use of Dim[place] TBIL is not recommended. Chloride [Moles/Vol] 105 mmol/L 98-107 [facility] Eosinophils/100 WBC (Bld) 1.3 % 0-5 [facility] Glucose [Mass/Vol] 103 mg/dL 74-106 [facility] Comment on above: Fasting Glucose resu lt from 100 to 125 mg/dL suggests IMPAIRED HOMEOSTASIS per A.D.A. criteria. Neutrophils (Bld) [#/Vol] 3.4 10*3/uL 2.0-7.7 [facility] [facility] Neutrophils/100 WBC (Bld) 55.9 % 47-70 [facility] Potassium [Moles/Vol] 3.9 mmol/L 3.5-5.1 [facility] Comment on above: Slight Hemolysis, Re sult may be falsely increased. Protein [Mass/Vol] 8.0 g/dL 6.4-8.2 [facility] Sodium [Moles/Vol] 141 mmol/L 136-145 [facility] WBC (Bld) [#/Vol] 6.1 10*3/uL 4.4-11.0 [facility] Bilirubin Test strip Ql (U)O rdered By: Dr. Corrales on 05-03-2022 Bilirubin Ql (U) Negative Negative [facility] Blood erythrocytes count (nu mber/volume)Ordered By: ED PROVIDER on 05-03-2022 RBC (Bld) [#/Vol] 5.18 10*6/uL 4.6-6.2 [facility] Blood hemoglobin measurement (mass/volume)Ordered By: ED PROVIDER on 05-03-2022 Hemoglobin (Bld) [Mass/Vol] 15.7 g/dL 13.0-16.5 [facility] Blood lymphocytes/100 leukoc ytesOrdered By: ED PROVIDER on 05-03-2022 Lymphocytes/100 WBC (Bld) 27.1 % 19-41 [facility] Blood monocytes/100 leukocyt esOrdered By: ED PROVIDER on 05-03-2022 Monocytes/100 WBC (Bld) 14.2 % 0-10 [facility] Blood platelet adequacy dete ction by light microscopyOrdered By: ED PROVIDER on 05-03-2022 Platelets LM Ql (Bld) ADEQUATE ADEQ [facility] Blood platelet mean volumeOr dered By: ED PROVIDER on 05-03-2022 Platelet mean volume (Bld) [Entitic vol] 10.7 fL 6.2-12.0 [facility] Determination of erythrocyte mean corpuscular volume (MCV)Ordered By: ED PROVIDER on 05-03-2022 MCV (RBC) [Entitic vol] 90.5 fL 80-94 [facility] Glucose Glucometer (BldC) [M ass/Vol]Ordered By: Dr. Corrales on 05-03-2022 Glucose [Mass/Vol] 114 mg/dL 74-106 [facility] Comment on above: MANAGEMENT OF PATIEN T CARE PER NURSING PROTOCOL Hematocrit Auto (Bld) [Volum e fraction]Ordered By: ED PROVIDER on 05-03-2022 Hematocrit (Bld) [Volume fraction] 46.9 % 40-54 [facility] Ketones Test strip Ql (U)Ord ered By: Dr. Corrales on 05-03-2022 Ketones Ql (U) 15 mg/dl Negative [facility] Laboratory - Chemistry and C hemistry - challengeOrdered By: ED PROVIDER on 05-03-2022 ALP [Catalytic activity/Vol] 97 U/L 45-117 [facility] ALT [Catalytic activity/Vol] 108 U/L 16-61 [facility] CO2 [Moles/Vol] 16.0 mmol/L 21.0-32.0 [facility] Globulin (S) [Mass/Vol] 3.7 g/dL 2.2-4.2 [facility] Urea nitrogen/Creatinine [Mass ratio] 8.5 mg/mg 10-20 [facility] Laboratory - Chemistry and C hemistry - challengeOrdered By: Dr. Corrales on 05-03-2022 CK [Catalytic activity/Vol] 325 U/L 39-308 [facility] Comment on above: Moderate Hemolysis, Result may be falsely increased. Laboratory - Hematology and Cell countsOrdered By: ED PROVIDER on 05-03-2022 Erythrocyte distribution width (RBC) [Entitic vol] 42.0 fL 35.1-43.9 [facility] Erythrocyte distribution width (RBC) [Ratio] 12.7 % 11.6-14.6 [facility] Immature granulocytes/100 WBC (Bld) 0.500 % 0.0-0.9 [facility] Comment on above: IG% - Immature Granu locytes (promyelocytes, myelocytes and metamyelocytes) > 1% indicates that a LEFT SHIFT is Present. MCH (RBC) [Entitic mass] 30.3 pg 27.0-32.0 [facility] Nucleated RBC/100 WBC (Bld) [Ratio] 0 % 0-5 [facility] MCHC Auto (RBC) [Mass/Vol]Or dered By: ED PROVIDER on 05-03-2022 MCHC (RBC) [Mass/Vol] 33.5 g/dL 32-36 [facility] Mucus LM Ql (Urine sed)Order ed By: Dr. Corrales on 05-03-2022 Mucus Ql (Urine sed) 0 SEEN /hpf [facility] Nitrite Test strip Ql (U)Ord ered By: Dr. Corrales on 05-03-2022 Nitrite Ql (U) Negative Negative [facility] No Panel InformationOrdered By: ED PROVIDER on 05-03-2022 Estimated Creatinine Clearance Calc 109.08 ml/min [facility] Estimated GFR (MDRD) Amer 97 mL/min >60 [facility] Comment on above: GFR Calc Estimated GFR (MDRD) Non-Af Amer 80 mL/min >60 [facility] Comment on above: Non- GFR Calc No Panel InformationOrdered By: Dr. Corrales on 05-03-2022 Troponin I High Sensitivity 6 pg/mL 3.0-78.0 [facility] Comment on above: Please Note: New Sendy t Units and Gender Specific Reference Ranges. For more information see Policy Stat Procedure [place] High Sensitivity Troponin (TNIH) and attachments. Platelets bldOrdered By: ED PROVIDER on 05-03-2022 Platelets (Bld) [#/Vol] See comment 150-450 [facility] Comment on above: Please note: For [...] 05-03-2022 Protein Ql (U) 100 mg/dl Negative [facility] Serum or plasma albumin bucky urement (mass/volume)Ordered By: ED PROVIDER on 05-03-2022 Albumin [Mass/Vol] 4.3 g/dL 3.2-5.0 [facility] Serum or plasma albumin/glob ulin mass ratioOrdered By: ED PROVIDER on 05-03-2022 Albumin/Globulin [Mass ratio] 1.2 {ratio} 0.9-2.4 [facility] Serum or plasma calcium bucky urement (mass/volume)Ordered By: ED PROVIDER on 05-03-2022 Calcium [Mass/Vol] 9.4 mg/dL 8.5-10.1 [facility] Serum or plasma creatinine m easurement (mass/volume)Ordered By: ED PROVIDER on 05-03-2022 Creatinine [Mass/Vol] 1.17 mg/dL 0.70-1.30 [facility] Comment on above: The validity of the calculated GFR & GFRAA in patients over 70 years has not been determined. Clinical correlation is essential. Serum or plasma urea nitroge n measurement (mass/volume)Ordered By: ED PROVIDER on 05-03-2022 Urea nitrogen [Mass/Vol] 10 mg/dL 7-18 [facility] Squamous epithelial cells de tection in urine sediment by light microscopyOrdered By: Dr. Corrales on 05-03-2022 Epithelial cells.squamous LM Ql (Urine sed) 0 SEEN /hpf 0-5 [facility] Thin prep Papanicolaou smear with manual screeningOrdered By: ED PROVIDER on 05-03-2022 Thin prep Papanicolaou smear with manual screening 103 U/L 15-37 [facility] Comment on above: Slight Hemolysis, Re sult may be falsely increased. Thin prep Papanicolaou smear with manual screening 20 5-15 [facility] Urine blood detectionOrdered By: Dr. Corrales on 05-03-2022 RBC Ql (U) 50 /ul Negative [facility] RBC Ql (U) 0-5 SEEN /hpf 0-5 [facility] Urine clarityOrdered By: Dr. Corrales on 05-03-2022 Clarity (U) Clear Clear [facility] Urine color determinationOrd ered By: Dr. Corrales on 05-03-2022 Color (U) Yellow Yellow [facility] Urine glucose detectionOrder ed By: Dr. Corrales on 05-03-2022 Glucose Ql (U) 250 mg/dl Normal [facility] Urine leukocyte esterase det ection by dipstickOrdered By: Dr. Corrales on 05-03-2022 Leukocyte esterase Test strip Ql (U) Negative Negative [facility] Urine pHOrdered By: Dr. Giovany castañeda on 05-03-2022 pH (U) 7.0 [pH] 5.0 - 8.0 [facility] Urine sediment bacteria coun t by microscopy (number/high power field)Ordered By: Dr. Corrales on 05-03-2022 Bacteria LM.HPF (Urine sed) [#/Area] 0 /[HPF] None Seen [facility] Urine specific gravity measu rementOrdered By: Dr. Corrales on 05-03-2022 Specific gravity (U) [Rel density] 1.015 1.002-1.030 [facility] Urobilinogen Auto test strip Ql (U)Ordered By: Dr. Corrales on 05-03-2022 Urobilinogen Ql (U) Normal mg/dl Normal [facility] Absolute lymphocyte counton 01-29-2022 Lymphocytes Auto (Unsp spec) [#/Vol] 1.25 10*3/uL 0.83-4.51 [facility] Work Phone: Basophil percentageon 2021 Chloride [Moles/Vol] 109 mmol/L 98-107 [facility] Work Phone: Glucose [Mass/Vol] 145 mg/dL 74-106 [facility] Work Phone: Comment on above: Fasting Glucose resu lt greater than or equal to 126 mg/dL suggests DIABETES MELLITUS per A.D.A. criteria. Potassium [Moles/Vol] 3.6 mmol/L 3.5-5.1 [facility] Work Phone: [phone] Sodium [Moles/Vol] 141 mmol/L 136-145 [facility] Work Phone: Basophils/100 WBC (Bld) 0.3 % 0-1 [facility] Work Phone: Eosinophils/100 WBC (Bld) 0.0 % 0-5 [facility] Work Phone: Neutrophils (Bld) [#/Vol] 9.1 10*3/uL 2.0-7.7 [facility] Work Phone: Neutrophils/100 WBC (Bld) 76.1 % 47-70 [facility] Work Phone: WBC (Bld) [#/Vol] 11.9 10*3/uL 4.4-11.0 [facility] Work Phone: Blood erythrocytes count (nu mber/volume)on 01-29-2022 RBC (Bld) [#/Vol] 5.10 10*6/uL 4.6-6.2 [facility] Work Phone: Blood hemoglobin measurement (mass/volume)on 01-29-2022 Hemoglobin (Bld) [Mass/Vol] 15.5 g/dL 13.0-16.5 [facility] Work Phone: Blood lymphocytes/100 leukoc yteson 01-29-2022 Lymphocytes/100 WBC (Bld) 10.5 % 19-41 [facility] Work Phone: Blood manual differential co mment interpretation (narrative result)on 01-29-2022 Manual differential comment Gabriel (Bld) [Interp] COMMENT [facility] Work Phone: Comment on above: MONOCYTOSIS. Blood monocytes/100 leukocyt eson 01-29-2022 Monocytes/100 WBC (Bld) 12.6 % 0-10 [facility] Work Phone: Blood platelet mean volumeon 01-29-2022 Platelet mean volume (Bld) [Entitic vol] 9.6 fL 6.2-12.0 [facility] Work Phone: Determination of erythrocyte mean corpuscular volume (MCV)on 01-29-2022 MCV (RBC) [Entitic vol] 89.6 fL 80-94 [facility] Work Phone: Glucose Glucometer (BldC) [M ass/Vol]on 01-29-2022 Glucose [Mass/Vol] 160 mg/dL 74-106 [facility] Work Phone: Comment on above: MANAGEMENT OF PATIEN T CARE PER NURSING PROTOCOL HCO3 (BldA) [Moles/Vol]on HCO3 (Bld) [Moles/Vol] 17 mmol/L 22-26 [facility] Work Phone: Hematocrit Auto (Bld) [Volum e fraction]on 01-29-2022 Hematocrit (Bld) [Volume fraction] 45.7 % 40-54 [facility] Work Phone: Laboratory - Chemistry and C hemistry - challengeon 01-29-2022 CO2 [Moles/Vol] 24.0 mmol/L 21.0-32.0 [facility] Work Phone: Urea nitrogen/Creatinine [Mass ratio] 17.5 mg/mg 10-20 [facility] Work Phone: CO2 [Moles/Vol] 18 mmol/L 23-33 [facility] Work Phone: Laboratory - Hematology and Cell countson 01-29-2022 Erythrocyte distribution width (RBC) [Entitic vol] 40.8 fL 35.1-43.9 [facility] Work Phone: Erythrocyte distribution width (RBC) [Ratio] 12.3 % 11.6-14.6 [facility] Work Phone: Immature granulocytes/100 WBC (Bld) 0.500 % 0.0-0.9 [facility] Work Phone: Comment on above: IG% - Immature Granu locytes (promyelocytes, myelocytes and metamyelocytes) > 1% indicates that a LEFT SHIFT is Present. MCH (RBC) [Entitic mass] 30.4 pg 27.0-32.0 [facility] Work Phone: Nucleated RBC/100 WBC (Bld) [Ratio] 0 % 0-5 [facility] Work Phone: MCHC Auto (RBC) [Mass/Vol]on 01-29-2022 MCHC (RBC) [Mass/Vol] 33.9 g/dL 32-36 [facility] Work Phone: No Panel Informationon 01-29 Estimated Creatinine Clearance Calc 144.28 ml/min [facility] Work Phone: Estimated GFR (MDRD) Amer 130 mL/min >60 [facility] Work Phone: Comment on above: GFR Calc Estimated GFR (MDRD) Non-Af Amer 107 mL/min >60 [facility] Work Phone: Comment on above: Non- GFR Calc Bed Mix Venous Bld PCO2 at Pat Temp 31.0 mmHg 41-51 [facility] Work Phone: Blood Gas Specimen Type BRITTNY [facility] Work Phone: Venous Blood Base Excess -9 mmol/L -1.0-3.5 [facility] Work Phone: PO2 venouson 01-29-2022 Oxygen (BldV) [Partial pressure] 54 mm[Hg] 25-40 [facility] Work Phone: Platelets bldon 01-29-2022 Platelets (Bld) [#/Vol] 256 10*3/uL 150-450 [facility] Work Phone: Review by pathologiston Pathologist review Gabriel (Unsp spec) [Interp] September [facility] Work Phone: Pathologist review Gabriel (Unsp spec) [Interp] Reviewed [facility] Work Phone: Comment on above: Previous reported re sult: Jennifer gray Edited by: FAITH on 01/30/22:1545Neutrophilic leukocytosis.Clinical correlation necessary.Sim Hassan M.D. 01/30/22 AMENDED REPORT 01/30/22 1547 PATH REV previously reported as: September isaac Serum or plasma acetone bucky urement (mass/volume)on 01-29-2022 Acetone [Mass/Vol] MODERATE NEG [facility] Work Phone: Serum or plasma calcium bucky urement (mass/volume)on 01-29-2022 Calcium [Mass/Vol] 8.7 mg/dL 8.5-10.1 [facility] Work Phone: Serum or plasma creatinine m easurement (mass/volume)on 01-29-2022 Creatinine [Mass/Vol] 0.91 mg/dL 0.70-1.30 [facility] Work Phone: Comment on above: The validity of the calculated GFR & GFRAA in patients over 70 years has not been determined. Clinical correlation is essential. Serum or plasma urea nitroge n measurement (mass/volume)on 01-29-2022 Urea nitrogen [Mass/Vol] 16 mg/dL 7-18 [facility] Work Phone: Thin prep Papanicolaou smear with manual screeningon 01-29-2022 Thin prep Papanicolaou smear with manual screening 8 5-15 [facility] Work Phone: Vital signson 01-29-2022 Oxygen saturation in Blood 86 % 50-70 [facility] Work Phone: pH measurementon 01-29-2022 pH (Unsp spec) 7.34 [pH] 7.32-7.42 [facility] Work Phone: Laboratory - Hematology and Cell countson 11-14-2021 HbA1c (Bld) [Mass fraction] 9.3 % [facility] Work Phone: Absolute lymphocyte counton 09-27-2021 Lymphocytes Auto (Unsp spec) [#/Vol] 1.25 10*3/uL 0.83-4.51 [facility] Work Phone: Basophil percentageon 2021 Basophils/100 WBC (Bld) 0.1 % 0-1 [facility] Work Phone: Chloride [Moles/Vol] 108 mmol/L 98-107 [facility] Work Phone: Eosinophils/100 WBC (Bld) 0.1 % 0-5 [facility] Work Phone: [phone] Glucose [Mass/Vol] 137 mg/dL 74-106 [facility] Work Phone: Comment on above: Fasting Glucose resu lt greater than or equal to 126 mg/dL suggests DIABETES MELLITUS per A.D.A. criteria. Neutrophils (Bld) [#/Vol] 7.3 10*3/uL 2.0-7.7 [facility] Work Phone: Neutrophils/100 WBC (Bld) 76.6 % 47-70 [facility] Work Phone: Potassium [Moles/Vol] 3.4 mmol/L 3.5-5.1 [facility] Work Phone: Sodium [Moles/Vol] 139 mmol/L 136-145 [facility] Work Phone: WBC (Bld) [#/Vol] 9.5 10*3/uL 4.4-11.0 [facility] Work Phone: Blood erythrocytes count (nu mber/volume)on 09-27-2021 RBC (Bld) [#/Vol] 4.53 10*6/uL 4.6-6.2 [facility] Work Phone: Blood hemoglobin measurement (mass/volume)on 09-27-2021 Hemoglobin (Bld) [Mass/Vol] 13.9 g/dL 13.0-16.5 [facility] Work Phone: Blood lymphocytes/100 leukoc yteson 09-27-2021 Lymphocytes/100 WBC (Bld) 13.2 % 19-41 [facility] Work Phone: Blood monocytes/100 leukocyt eson 09-27-2021 Monocytes/100 WBC (Bld) 9.7 % 0-10 [facility] Work Phone: Blood platelet mean volumeon 09-27-2021 Platelet mean volume (Bld) [Entitic vol] 9.4 fL 6.2-12.0 [facility] Work Phone: Determination of erythrocyte mean corpuscular volume (MCV)on 09-27-2021 MCV (RBC) [Entitic vol] 85.9 fL 80-94 [facility] Work Phone: Glucose Glucometer (BldC) [M ass/Vol]on 09-27-2021 Glucose [Mass/Vol] 135 mg/dL 74-106 [facility] Work Phone: Comment on above: MANAGEMENT OF PATIEN T CARE PER NURSING PROTOCOL Hematocrit Auto (Bld) [Volum e fraction]on 09-27-2021 Hematocrit (Bld) [Volume fraction] 38.9 % 40-54 [facility] Work Phone: Laboratory - Chemistry and C hemistry - challengeon 09-27-2021 CO2 [Moles/Vol] 22.0 mmol/L 21.0-32.0 [facility] Work Phone: Urea nitrogen/Creatinine [Mass ratio] 9.0 mg/mg 10-20 [facility] Work Phone: Laboratory - Hematology and Cell countson 09-27-2021 Erythrocyte distribution width (RBC) [Entitic vol] 39.5 fL 35.1-43.9 [facility] Work Phone: Erythrocyte distribution width (RBC) [Ratio] 12.6 % 11.6-14.6 [facility] Work Phone: Immature granulocytes/100 WBC (Bld) 0.300 % 0.0-0.9 [facility] Work Phone: Comment on above: IG% - Immature Granu locytes (promyelocytes, myelocytes and metamyelocytes) > 1% indicates that a LEFT SHIFT is Present. MCH (RBC) [Entitic mass] 30.7 pg 27.0-32.0 [facility] Work Phone: Nucleated RBC/100 WBC (Bld) [Ratio] 0 % 0-5 [facility] Work Phone: MCHC Auto (RBC) [Mass/Vol]on 09-27-2021 MCHC (RBC) [Mass/Vol] 35.7 g/dL 32-36 [facility] Work Phone: No Panel Informationon 09-27 Estimated Creatinine Clearance Calc 147.52 ml/min [facility] Work Phone: Estimated GFR (MDRD) Amer 133 mL/min >60 [facility] Work Phone: Comment on above: GFR Calc Estimated GFR (MDRD) Non-Af Amer 110 mL/min >60 [facility] Work Phone: Comment on above: Non- GFR Calc Platelets bldon 09-27-2021 Platelets (Bld) [#/Vol] 150 10*3/uL 150-450 [facility] Work Phone: Serum or plasma calcium bucky urement (mass/volume)on 09-27-2021 Calcium [Mass/Vol] 8.6 mg/dL 8.5-10.1 [facility] Work Phone: Serum or plasma creatinine m easurement (mass/volume)on 09-27-2021 Creatinine [Mass/Vol] 0.89 mg/dL 0.70-1.30 [facility] Work Phone: Comment on above: The validity of the calculated GFR & GFRAA in patients over 70 years has not been determined. Clinical correlation is essential. Serum or plasma urea nitroge n measurement (mass/volume)on 09-27-2021 Urea nitrogen [Mass/Vol] 8 mg/dL 7-18 [facility] Work Phone: Thin prep Papanicolaou smear with manual screeningon 09-27-2021 Thin prep Papanicolaou smear with manual screening 9 5-15 [facility] Work Phone: Basophil percentageon 2021 Bilirubin [Mass/Vol] 0.70 mg/dL 0.20-1.00 [facility] Work Phone: Comment on above: For patients on eltr ombopag therapy, use of Dimension [place] TBIL is not recommended. Protein [Mass/Vol] 6.8 g/dL 6.4-8.2 [facility] Work Phone: Laboratory - Chemistry and C hemistry - challengeon 09-26-2021 ALP [Catalytic activity/Vol] 80 U/L 45-117 [facility] Work Phone: ALT [Catalytic activity/Vol] 30 U/L 16-61 [facility] Work Phone: Globulin (S) [Mass/Vol] 3.2 g/dL 2.2-4.2 [facility] Work Phone: Review by pathologiston Pathologist review Gabriel (Unsp spec) [Interp] Reviewed [facility] Work Phone: Comment on above: Previous reported re sult: Jennifer gray Edited by: FAITH on 09/27/21:1033Neutrophilic leukocytosis.Clinical correlation necessary.Sim Hassan M.D. 09/27/21 AMENDED REPORT 09/27/21 1033 PATH REV previously reported as: Jennifer gray Serum or plasma albumin bucky urement (mass/volume)on 09-26-2021 Albumin [Mass/Vol] 3.6 g/dL 3.2-5.0 [facility] Work Phone: Serum or plasma albumin/glob ulin mass ratioon 09-26-2021 Albumin/Globulin [Mass ratio] 1.1 {ratio} 0.9-2.4 [facility] Work Phone: Thin prep Papanicolaou smear with manual screeningon 09-26-2021 Thin prep Papanicolaou smear with manual screening 18 U/L 15-37 [facility] Work Phone: Whole blood hemoglobin A1c/t otal hemoglobin ratio (mass fraction)on 09-26-2021 HbA1c (Bld) [Mass fraction] 9.8 % 3.8-5.6 [facility] Work Phone: Comment on above: Normal < 5.7 % Predi abetic 5.7 - 6.4 % Diabetic >or= 6.5 % Please note range changes. Absolute lymphocyte counton 09-25-2021 Lymphocytes Auto (Unsp spec) [#/Vol] 1.17 10*3/uL 0.83-4.51 [facility] Work Phone: Basophil percentageon 2021 Basophil percentage 0 SEEN /hpf [facility] Work Phone: Chloride [Moles/Vol] 98 mmol/L 98-107 [facility] Work Phone: Glucose [Mass/Vol] 477 mg/dL 74-106 [facility] Work Phone: Comment on above: Critical Result(s) C alled at: 21:31:58 09/25/2021 by: Ana Paula Grant. Results read back by same.Glucose result greater than or equal to 200 mg/dLsuggests DIABETES MELLITUS per A.D.A. criteria. Potassium [Moles/Vol] 5.5 mmol/L 3.5-5.1 [facility] Work Phone: Sodium [Moles/Vol] 136 mmol/L 136-145 [facility] Work Phone: Basophil percentage 8.2 mg/dL 2.5-4.9 [facility] Work Phone: Basophils/100 WBC (Bld) 0.5 % 0-1 [facility] Work Phone: Bilirubin [Mass/Vol] 0.80 mg/dL 0.20-1.00 [facility] Work Phone: Comment on above: For patients on eltr ombopag therapy, use of Dimension [place] TBIL is not recommended. Eosinophils/100 WBC (Bld) 0.1 % 0-5 [facility] Work Phone: Neutrophils (Bld) [#/Vol] 26.2 10*3/uL 2.0-7.7 [facility] Work Phone: Neutrophils/100 WBC (Bld) 85.9 % 47-70 [facility] Work Phone: Protein [Mass/Vol] 8.6 g/dL 6.4-8.2 [facility] Work Phone: WBC (Bld) [#/Vol] 30.5 10*3/uL 4.4-11.0 [facility] Work Phone: Comment on above: CRITICAL VALUE VERIF IED. CALLED TO JANESSA JUNG09/25/21 [facility] Al[facility].RESULTS READ BACK BY SAME . Bilirubin Test strip Ql (U)o n 09-25-2021 Bilirubin Ql (U) Negative Negative [facility] Work Phone: [phone] Blood erythrocytes count (nu mber/volume)on 09-25-2021 RBC (Bld) [#/Vol] 5.42 10*6/uL 4.6-6.2 [facility] Work Phone: Blood hemoglobin measurement (mass/volume)on 09-25-2021 Hemoglobin (Bld) [Mass/Vol] 16.6 g/dL 13.0-16.5 [facility] [facility] Work Phone: [phone] Blood lymphocytes/100 leukoc yteson 09-25-2021 Lymphocytes/100 WBC (Bld) 3.8 % 19-41 [facility] Work Phone: Blood manual differential co mment interpretation (narrative result)on 09-25-2021 Manual differential comment Gabriel (Bld) [Interp] See comment [facility] Work Phone: Comment on above: MONOCYTOSIS NOTEDNEU TROPHILIA NOTED Blood monocytes/100 leukocyt eson 09-25-2021 Monocytes/100 WBC (Bld) 8.6 % 0-10 [facility] Work Phone: Blood platelet adequacy dete ction by light microscopyon 09-25-2021 Platelets LM Ql (Bld) ADEQUATE ADEQ [facility] Work Phone: Blood platelet mean volumeon 09-25-2021 Platelet mean volume (Bld) [Entitic vol] 10.2 fL 6.2-12.0 [facility] Work Phone: Determination of erythrocyte mean corpuscular volume (MCV)on 09-25-2021 MCV (RBC) [Entitic vol] 92.1 fL 80-94 [facility] Work Phone: Direct bilirubinon 2 Bilirubin.direct [Mass/Vol] 0.15 mg/dL 0.00-0.30 [facility] Work Phone: Glucose Glucometer (BldC) [M ass/Vol]on 09-25-2021 Glucose [Mass/Vol] mg/dL 74-106 [facility] Work Phone: Comment on above: Dr Christina BOJORQUEZ OF PATIENT CARE PER NURSING PROTOCOL HCO3 (BldA) [Moles/Vol]on HCO3 (Bld) [Moles/Vol] 5 mmol/L 22-26 [facility] Work Phone: Hematocrit Auto (Bld) [Volum e fraction]on 09-25-2021 Hematocrit (Bld) [Volume fraction] 49.9 % 40-54 [facility] Work Phone: Ketones Test strip Ql (U)on 09-25-2021 Ketones Ql (U) 150 mg/dl Negative [facility] Work Phone: Comment on above: CRITICAL VALUE *HCRI TICAL VALUE VERIFIED. CALLED TO [id number] Ana Paula Field.RESULTS READ BACK BY SAME . Laboratory - Chemistry and C hemistry - challengeon 09-25-2021 CO2 [Moles/Vol] 7.0 mmol/L 21.0-32.0 [facility] Work Phone: Comment on above: Critical Result(s) C alled at: 21:31:39 09/25/2021 by: Ana Paula Grant. Results read back by same. Urea nitrogen/Creatinine [Mass ratio] 15.1 mg/mg 10-20 [facility] Work Phone: CO2 [Moles/Vol] 5 mmol/L 23-33 [facility] Work Phone: ALP [Catalytic activity/Vol] 117 U/L 45-117 [facility] Work Phone: ALT [Catalytic activity/Vol] 38 U/L 16-61 [facility] Work Phone: Globulin (S) [Mass/Vol] 3.9 g/dL 2.2-4.2 [facility] Work Phone: Magnesium [Mass/Vol] 2.6 mg/dL 1.6-2.6 [facility] Work Phone: Laboratory - Hematology and Cell countson 09-25-2021 Erythrocyte distribution width (RBC) [Entitic vol] 41.3 fL 35.1-43.9 [facility] Work Phone: Erythrocyte distribution width (RBC) [Ratio] 12.2 % 11.6-14.6 [facility] Work Phone: Immature granulocytes/100 WBC (Bld) 1.100 % 0.0-0.9 [facility] Work Phone: Comment on above: IG% - Immature Granu locytes (promyelocytes, myelocytes and metamyelocytes) > 1% indicates that a LEFT SHIFT is Present. MCH (RBC) [Entitic mass] 30.6 pg 27.0-32.0 [facility] Work Phone: Nucleated RBC/100 WBC (Bld) [Ratio] 0 % 0-5 [facility] Work Phone: MCHC Auto (RBC) [Mass/Vol]on 09-25-2021 MCHC (RBC) [Mass/Vol] 33.3 g/dL 32-36 [facility] Work Phone: Mucus LM Ql (Urine sed)on Mucus Ql (Urine sed) 0 SEEN /hpf [facility] Work Phone: Nitrite Test strip Ql (U)on 09-25-2021 Nitrite Ql (U) Negative Negative [facility] Work Phone: No Panel Informationon 09-25 Respiratory Panel (PCR) [facility] Work Phone: Estimated Creatinine Clearance Calc 68.38 ml/min [facility] Work Phone: Estimated GFR (MDRD) Amer 55 mL/min >60 [facility] Work Phone: Comment on above: GFR Calc Estimated GFR (MDRD) Non-Af Amer 46 mL/min >60 [facility] Work Phone: Comment on above: Non- GFR Calc Bed Mix Venous Bld PCO2 at Pat Temp 20.8 mmHg 41-51 [facility] Work Phone: Bld Gas Crit Called To/Read Back By Yes [facility] Work Phone: Blood Gas Notified Time 18:50:44 [facility] Work Phone: Blood Gas Notified [facility] Work Phone: Blood Gas Specimen Type BRITTNY [facility] Work Phone: Oxygen Delivery Device Room Air [facility] Work Phone: Venous Blood Base Excess -27 mmol/L -1.0-3.5 [facility] Work Phone: PO2 venouson 09-25-2021 Oxygen (BldV) [Partial pressure] 50 mm[Hg] 25-40 [facility] Work Phone: Platelets bldon 09-25-2021 Platelets (Bld) [#/Vol] 334 10*3/uL 150-450 [facility] Work Phone: Protein Test strip Ql (U)on 09-25-2021 Protein Ql (U) 30 mg/dl Negative [facility] Work Phone: RBC morphologyon 09-25-2021 RBC morphology finding Nom (Bld) NORM C+C NORMAL NORM C&C [facility] Work Phone: Review by pathologiston Pathologist review Gabriel (Unsp spec) [Interp] May foll [facility] Work Phone: Serum or plasma acetone bucky urement (mass/volume)on 09-25-2021 Acetone [Mass/Vol] LARGE NEG [facility] Work Phone: Serum or plasma albumin bucky urement (mass/volume)on 09-25-2021 Albumin [Mass/Vol] 4.7 g/dL 3.2-5.0 [facility] Work Phone: Serum or plasma calcium bucky urement (mass/volume)on 09-25-2021 Calcium [Mass/Vol] 8.5 mg/dL 8.5-10.1 [facility] Work Phone: Serum or plasma creatinine m easurement (mass/volume)on 09-25-2021 Creatinine [Mass/Vol] 1.92 mg/dL 0.70-1.30 [facility] Work Phone: Comment on above: The validity of the calculated GFR & GFRAA in patients over 70 years has not been determined. Clinical correlation is essential. Serum or plasma urea nitroge n measurement (mass/volume)on 09-25-2021 Urea nitrogen [Mass/Vol] 29 mg/dL 7-18 [facility] Work Phone: Squamous epithelial cells de tection in urine sediment by light microscopyon 09-25-2021 Epithelial cells.squamous LM Ql (Urine sed) 0 SEEN /hpf [facility] Work Phone: Thin prep Papanicolaou smear with manual screeningon 09-25-2021 Thin prep Papanicolaou smear with manual screening 31 5-15 [facility] Work Phone: Thin prep Papanicolaou smear with manual screening 23 U/L 15-37 [facility] Work Phone: Urine blood detectionon 05-0 RBC Ql (U) 50 /ul Negative [facility] Work Phone: RBC Ql (U) 0 SEEN /hpf [facility] Work Phone: Urine clarityon 09-25-2021 Clarity (U) Clear Clear [facility] Work Phone: Urine color determinationon 09-25-2021 Color (U) Yellow Yellow [facility] Work Phone: Urine glucose detectionon Glucose Ql (U) 1000 mg/dl Normal [facility] Work Phone: Urine leukocyte esterase det ection by dipstickon 09-25-2021 Leukocyte esterase Test strip Ql (U) Negative Negative [facility] Work Phone: Urine pHon 09-25-2021 pH (U) 5.0 [pH] [facility] Work Phone: Urine sediment bacteria coun t by microscopy (number/high power field)on 09-25-2021 Bacteria LM.HPF (Urine sed) [#/Area] 0 /[HPF] None Seen [facility] Work Phone: Urine specific gravity measu rementon 09-25-2021 Specific gravity (U) [Rel density] 1.025 [facility] Work Phone: Urobilinogen Auto test strip Ql (U)on 09-25-2021 Urobilinogen Ql (U) Normal mg/dl Normal [facility] Work Phone: Vital signson 09-25-2021 Oxygen saturation in Blood 63 % 50-70 [facility] Work Phone: pH measurementon 09-25-2021 pH (Unsp spec) 6.96 [pH] 7.32-7.42 [facility] Work Phone: Complete Blood Count + Diffe rentialon 07-26-2021 Basophils/100 WBC (Bld) 0.8 % 0.0 - 2.0 [facility] Work Phone: Erythrocyte distribution width (RBC) [Ratio] 12.3 % See Below [facility] Work Phone: Comment on above: Reference Range: 11. 5 - 14.5 Hematocrit (Bld) [Volume fraction] 51.4 % See Below [facility] Work Phone: Comment on above: Reference Range: 41. 0 - 52.0 Hemoglobin (Bld) [Mass/Vol] 17.2 g/dL See Below [facility] Work Phone: Comment on above: Reference Range: 13. 5 - 17.5 Lymphocytes/100 WBC (Bld) 23.1 % See Below [facility] Work Phone: Comment on above: Reference Range: 13. 0 - 44.0 MCHC (RBC) [Mass/Vol] 33.5 g/dL See Below [facility] Work Phone: Comment on above: Reference Range: 32. 0 - 36.0 MCV (RBC) [Entitic vol] 92 fL 80 - 100 [facility] Work Phone: Monocytes/100 WBC (Bld) 10.6 % 2.0 - 10.0 [facility] Work Phone: Neutrophils/100 WBC (Bld) 62.8 % See Below [facility] Work Phone: Comment on above: Reference Range: 40. 0 - 80.0 Platelets (Bld) [#/Vol] 289 10*3/uL 150 - 450 [facility] Work Phone: RBC (Bld) [#/Vol] 5.61 {x10E12/L} See Below [facility] Work Phone: Comment on above: Reference Range: 4.5 0 - 5.90 WBC (Bld) [#/Vol] 8.6 10*3/uL 4.4 - 11.3 [facility] Work Phone: Complete Blood Count + Differential 0.07 {x10E9/L} See Below [facility] Work Phone: Comment on above: Reference Range: 0.0 0 - 0.10 Complete Blood Count + Differential 0.17 {x10E9/L} See Below [facility] Work Phone: Comment on above: Reference Range: 0.0 0 - 0.70 Complete Blood Count + Differential 0.91 {x10E9/L} See Below [facility] Work Phone: Comment on above: Reference Range: 0.1 0 - 1.00 Complete Blood Count + Differential 1.99 {x10E9/L} See Below [facility] Work Phone: Comment on above: Reference Range: 1.2 0 - 4.80 Complete Blood Count + Differential 5.41 {x10E9/L} See Below [facility] Work Phone: Comment on above: Reference Range: 1.2 0 - 7.70 Complete Blood Count + Differential 2.0 % 0.0 - 6.0 [facility] Work Phone: Complete Blood Count + Differential 0.7 % 0.0 - 0.9 [facility] Work Phone: Comment on above: Immature Granulocyte Count (IG) includes promyelocytes, myelocytes and metamyelocytes but does not include bands. Percent differential counts (%) should be interpreted in the context of the absolute cell counts (cells/L). Complete Blood Count + Differential 0.0 {/100_WBC} 0.0-0.0 [facility] Work Phone: Hemoglobin A1Con 07-26-2021 Glucose [Mass/Vol] 235 mg/dL [facility] Work Phone: HbA1c (Bld) [Mass fraction] 9.8 % Abnormal [facility] Work Phone: Comment on above: Diagnosis of Diabete s-Adults Non-Diabetic: < or = 5.6% Increased risk for developing diabetes: 5.7-6.4% Diagnostic of diabetes: > or = 6.5%. Monitoring of Diabetes Age (y) Therapeutic Goal (%) Adults: >18 <7.0 Pediatrics: 13-18 <7.5 7-12 <8.0 0- 6 7.5-8.5 [employer]. Diabetes Care 33(S1), May 2009. Laboratory - Chemistry and C hemistry - challengeon 07-26-2021 Albumin BCP dye [Mass/Vol] 4.8 g/dL 3.4 - 5.0 [facility] Work Phone: Albumin Ql (U) 263.0 mg/L See Below [facility] Work Phone: Comment on above: Reference Range: Not Established Albumin/Creatinine DL <= 20 mg/L (U) [Mass ratio] 263.5 {ug/mg_crt} above high threshold 0.0 - 30.0 [facility] Work Phone: ALP [Catalytic activity/Vol] 121 U/L above high threshold 33 - 120 [facility] Work Phone: ALT With P-5'-P [Catalytic activity/Vol] 34 U/L 10 - 52 [facility] Work Phone: Comment on above: Patients treated wit h Sulfasalazine may generate falsely decreased results for ALT. Anion gap [Moles/Vol] 15 mmol/L 10 - 20 [facility] Work Phone: AST With P-5'-P [Catalytic activity/Vol] 21 U/L 9 - 39 [facility] Work Phone: Bilirubin [Mass/Vol] [...] dosing. Cholesterol in HDL [Mass/Vol] 56.5 mg/dL [facility] Work Phone: Comment on above: . AGE VERY LOW LOW N ORMAL HIGH 0-19 Y < 35 < 40 40-45 ---- 20-24 Y ---- < 40 >45 ---- >24 Y ---- < 40 40-60 >60. Cholesterol in LDL [Mass/Vol] 148 mg/dL above high threshold 0 - 119 [facility] Work Phone: Comment on above: . NEAR BORD AGE KRISTY RABLE OPTIMAL HIGH HIGH VERY HIGH 0-19 Y 0 - 109 --- 110-129 >/= 130 ---- 20-24 Y 0 - 119 --- 120-159 >/= 160 ---- >24 Y 0 - 99 100-129 130-159 160-189 >/=190. Cholesterol.total/Chol esterol in HDL [Mass ratio] 4.3 {ratio} [facility] Work Phone: Comment on above: REF VALUESDESIRABLE < 3.4HIGH RISK > 5.0 Triglyceride [Mass/Vol] 186 mg/dL above high threshold 0 - 149 [facility] Work Phone: Comment on above: [...] Lipid Panel 37 mg/dL 0 - 40 [facility] Work Phone: No Panel Informationon 07-26 >90 >90 [facility] Work Phone: Comment on above: CALCULATIONS OF LUIS FELIPE MATED GFR ARE PERFORMED USING THE 2020 CKD-EPI STUDY REFIT EQUATION WITHOUT THE RACE VARIABLE FOR THE IDMS-TRACEABLE CREATININE METHODS.https://jasn.asnjournals.org/content//[email or web address] Office Visit (Internal Medic ine)on 07-26-2021 Follow-up [...] essential hypertension; FROY = N; Sent To: [id number]; Last Updated By: System, [employer]; 07/26/2021 9:33:03 AM SocHx: Never smoker Tobacco Use Screening; Status:Complete; Done: 26Jul2021 Perform:Not Applicable;Ordered; For:SocHx: Never smoker; Ordered By:Dexter Daniel; URI (upper respiratory infection) Start: Amoxicillin 500 MG Oral Tablet; TAKE 1 TABLET 3 TIMES DAILY Rx By: Dexter Daniel; Dispense: 10 Days ; #:30 Tablet; Refill: 0;For: URI (upper respiratory infection); FROY = N; Sent To: [facility] #[id number]; Last Updated By: SystemKivaer; 07/26/2021 9:33:04 AM Patient Discussion/Summary Healthy Lifestyle [...] 07-26-2021 TSH Qn 2.54 m[IU]/L See Below [facility] Work Phone: Comment on above: Reference Range: 0.4 4 - 3.98 TSH testing is performed using different testing methodology at [facility] than at other [facility] hospitals. Direct result comparisons should only be made within the same method. Tobacco Screening.on 022 Fall risk assessment a) No falls within the last year [facility] Work Phone: Tobacco use status [facility] b) No [facility] Work Phone: Vitamin D 25-Hydroxyon 07-26 25-hydroxyvitamin D3 [Mass/Vol] 11 ng/mL Abnormal [facility] Work Phone: Comment on above: .DEFICIENCY: < 20 NG /MLINSUFFICIENCY: 20-29 NG/MLSUFFICIENCY: 30-100 NG/MLTHIS ASSAY ACCURATELY QUANTIFIES THE SUM OFVITAMIN D3, 25-HYDROXY AND VIT D2,25-HYDROXY. Tobacco Screening.on 022 Adult depression screening assessment No [facility] Work Phone: Tobacco use status [facility] b) No [facility] Work Phone: Fall risk assessment a) No falls within the last year [facility] Work Phone: Tobacco use status [facility] b) No [facility] Work Phone: US THYROIDon 09-02-2017 [...] mm.IMPRESSION: Homogeneous thyroid echotexture, without focal thyroid nodule.Resident Medical Officer : LESA Transcribe Date/Time: Sep 02 2017 7:58ADictated by : GEE TEJADA MDThis examination was interpreted and the report reviewed and electronically signed by: GEE TEJADA MD on Sep 02 2017 7:59AM [facility] Vital Signs Date Time Vital Sign Value Performing Clinician Facility 02-07-2025 22:50-0400 Body temperature 98.1 [degF] Dr. Dexter Daniel MD Work Phone: 7(854)392-658453 [place] [address] 02-07-2025 22:50-0400 Diastolic blood pressure 102 mm[Hg] Dr. Dexter Daniel MD Work Phone: 8(272)513-927832 [place] [address] 02-07-2025 22:50-0400 Heart rate 87 /min Dr. Dexter Daniel MD Work Phone: 5(409)597-743232 [place] [address] 02-07-2025 22:50-0400 Respiratory rate 16 /min Dr. Dexter Daniel MD Work Phone: 7(558)897-694732 [place] [address] 02-07-2025 22:50-0400 SaO2% (BldA) [Mass fraction] 98 % Dr. Dexter Daniel MD Work Phone: 3(749)269-124032 [place] [address] 02-07-2025 22:50-0400 Systolic blood pressure 144 mm[Hg] Dr. Dexter Daniel MD Work Phone: 9(646)529-379832 [place] [address] 02-07-2025 20:01-0400 Body height 185.[address] Dexter Daniel MD Work Phone: 1(410)650-696432 [place] [address] 02-07-2025 20:01-0400 Body mass index (BMI) [Ratio] 26.2 kg/m2 Dr. Dexter Daniel MD Work Phone: 6(318)484-384032 [place] [address] 02-07-2025 20:01-0400 Body weight 89.[address] Dexter Daniel MD Work Phone: 6(715)988-222832 [place] [address] 01-22-2025 18:39-0400 Body temperature 98.7 [degF] Dr. Dexter Daniel MD Work Phone: 9(262)533-739632 [place] [address] 01-22-2025 18:39-0400 Diastolic blood pressure 90 mm[Hg] Dr. Dexter Daniel MD Work Phone: [facility] 01-22-2025 18:39-0400 Heart rate 77 /min Dr. Dexter Daniel MD Work Phone: [facility] 01-22-2025 18:39-0400 Respiratory rate 20 /min Dr. Dexter Daniel MD Work Phone: [facility] 01-22-2025 18:39-0400 SaO2% (BldA) [Mass fraction] 100 % Dr. Dexter Daniel MD Work Phone: [facility] 01-22-2025 18:39-0400 Systolic blood pressure 138 mm[Hg] Dr. Dexter Daniel MD Work Phone: 8(986)704-762753 [place] [address] 01-22-2025 12:29-0400 Body height 185.[address] Dexter Daniel MD Work Phone: [facility] 01-22-2025 12:29-0400 Body mass index (BMI) [Ratio] 27.3 kg/m2 Dr. Dexter Daniel MD Work Phone: [facility] 01-22-2025 12:29-0400 Body weight [address] Dexter Daniel MD Work Phone: [facility] 03-02-2024 11:00-0400 Body temperature 97 [degF] Mona Rodriguez DO Work Phone: [facility] 03-02-2024 08:22-0400 Diastolic blood pressure 109 mm[Hg] Mona Rodriguez DO Work Phone: [facility] 03-02-2024 08:22-0400 Heart rate 78 /min Mona Rodriguez DO Work Phone: [facility] 03-02-2024 08:22-0400 Systolic blood pressure 151 mm[Hg] Mona Rodriguez DO Work Phone: [facility] 03-02-2024 06:00-0400 Respiratory rate 25 /min Mona Rodriguez DO Work Phone: [facility] 03-02-2024 06:00-0400 SaO2% (BldA) [Mass fraction] 100 % Mona Rodriguez DO Work Phone: [facility] 03-02-2024 01:24-0400 Body height 186 cm Mona Rodriguez DO Work Phone: [facility] 03-02-2024 01:24-0400 Body mass index (BMI) [Ratio] 25.26 kg/m2 Moan Rodriguez DO Work Phone: [facility] 03-02-2024 01:24-0400 Body weight 87.4 kg Mona Rodriguez DO Work Phone: [facility] 03-01-2024 18:35-0400 Body temperature 37.0 Mona Rodriguez DO Work Phone: [facility] 03-01-2024 18:30-0400 Body temperature 37.0 degrees Celsius [facility] Comment on above: Performed By: #### [id number] #### [facility] ([id number]) [facility] ([facility]) [address] [place] [address] 12-15-2023 09:53-0400 Body height 185.4 cm Dexter Daniel MD Work Phone: [facility] 12-15-2023 09:53-0400 Body mass index (BMI) [Ratio] 27.42 kg/m2 Dexter Daniel MD Work Phone: [facility] 12-15-2023 09:53-0400 Body temperature 97.11 [degF] Dexter Daniel MD Work Phone: [facility] 12-15-2023 09:53-0400 Body weight 94.26 kg Dexter Daniel MD Work Phone: [facility] 12-15-2023 09:53-0400 Diastolic blood pressure 78 mm[Hg] Dexter Daniel MD Work Phone: [facility] 12-15-2023 09:53-0400 Heart rate 85 /min Dexter Daniel MD Work Phone: [facility] 12-15-2023 09:53-0400 SaO2% (BldA) [Mass fraction] 98 % Dexter Daniel MD Work Phone: 9(669)878-855879 [place] [address] 12-15-2023 09:53-0400 Systolic blood pressure 142 mm[Hg] Dexter Daniel MD Work Phone: 9(341)453-429529 [place] [address] 12-08-2023 14:14-0400 Body height 185.4 cm Dexter Daniel MD Work Phone: 0(036)495-632829 [place] [address] 12-08-2023 14:14-0400 Body mass index (BMI) [Ratio] 25.99 kg/m2 Dexter Daniel MD Work Phone: 7(046)399-621729 [place] [address] 12-08-2023 14:14-0400 Body weight 89.36 kg Dexter Daniel MD Work Phone: 0(509)817-724729 [place] [address] 12-08-2023 14:14-0400 Diastolic blood pressure 90 mm[Hg] Dexter Daniel MD Work Phone: 9(846)464-646129 [place] [address] 12-08-2023 14:14-0400 Heart rate 109 /min Dexter Daniel MD Work Phone: 4(751)516-008629 [place] [address] 12-08-2023 14:14-0400 SaO2% (BldA) [Mass fraction] 98 % Dexter Daniel MD Work Phone: 2(252)358-108448 [place] [address] 12-08-2023 14:14-0400 Systolic blood pressure 160 mm[Hg] Dexter Daniel MD Work Phone: 4(222)216-914029 [place] [address] 09-04-2023 11:27-0400 Body temperature 98 [degF] Dr. Paul Ontiveros Work Phone: [facility] 09-04-2023 11:27-0400 Diastolic blood pressure 97 mm[Hg] Dr. Paul Ontiveros Work Phone: [facility] 09-04-2023 11:27-0400 Heart rate 87 /min Dr. Paul Ontiveros Work Phone: [facility] 09-04-2023 11:27-0400 Respiratory rate 16 /min Dr. Paul Ontiveros Work Phone: [facility] 09-04-2023 11:27-0400 SaO2% (BldA) [Mass fraction] 99 % Dr. Paul Ontiveros Work Phone: [facility] 09-04-2023 11:27-0400 Systolic blood pressure 150 mm[Hg] Dr. Paul Ontiveros Work Phone: [facility] 09-04-2023 07:40-0400 Body height 185.[address] Paul Ontiveros Work Phone: [facility] 09-04-2023 07:40-0400 Body mass index (BMI) [Ratio] 25.1 kg/m2 Dr. Paul Ontiveros Work Phone: [facility] 09-04-2023 07:40-0400 Body weight 86.[address] Paul Ontiveros Work Phone: [facility] 08-15-2023 15:23-0400 Body mass index (BMI) [Ratio] 25.8 kg/m2 Dr. Paul Ontiveros Work Phone: [facility] 08-15-2023 15:23-0400 Body temperature 98.2 [degF] Dr. Paul Ontiveros Work Phone: [facility] [facility] 08-15-2023 15:23-0400 Body weight 88.[address] Paul Ontiveros Work Phone: [facility] 08-15-2023 15:23-0400 Diastolic blood pressure 93 mm[Hg] Dr. Paul Ontiveros Work Phone: [facility] 08-15-2023 15:23-0400 Heart rate 83 /min Dr. Paul Ontiveros Work Phone: [facility] 08-15-2023 15:23-0400 SaO2% (BldA) [Mass fraction] 98 % Dr. Paul Ontiveros Work Phone: [facility] 08-15-2023 15:23-0400 Systolic blood pressure 150 mm[Hg] Dr. Paul Ontiveros Work Phone: [facility] 06-09-2023 08:47-0500 Body height 185.4 cm Dexter Daniel MD Work Phone: 4(546)678-738829 [place] [address] 06-09-2023 08:47-0500 Body mass index (BMI) [Ratio] 25.46 kg/m2 Dexter Daniel MD Work Phone: 1(176)682-239429 [place] [address] 06-09-2023 08:47-0500 Body temperature 97.59 [degF] Dexter Daniel MD Work Phone: 9(233)[phone] [place] [address] 06-09-2023 08:47-0500 Body weight 87.54 kg Dexter Daniel MD Work Phone: 3(988)878-602029 [place] [address] 06-09-2023 08:47-0500 Diastolic blood pressure 107 mm[Hg] Dexter Daniel MD Work Phone: 6(171)559-107829 [place] [address] 06-09-2023 08:47-0500 Heart rate 107 /min Dexter Daniel MD Work Phone: 9(421)386-351529 [place] [address] 06-09-2023 08:47-0500 SaO2% (BldA) [Mass fraction] 97 % Dexter Daniel MD Work Phone: 4(880)230-266229 [place] [address] 06-09-2023 08:47-0500 Systolic blood pressure 146 mm[Hg] Dexter Daniel MD Work Phone: 7(430)518-235229 [place] [address] 03-23-2023 08:54-0400 Heart rate 66 /min Dr. Dafne Cornell Work Phone: [facility] 03-23-2023 08:00-0400 Body temperature 97.3 [degF] Dr. Dafne Cornell Work Phone: [facility] 03-23-2023 08:00-0400 Diastolic blood pressure 68 mm[Hg] Dr. Dafne Cornell Work Phone: [facility] 03-23-2023 08:00-0400 Respiratory rate 16 /min Dr. Dafne Cornell Work Phone: [facility] 03-23-2023 08:00-0400 SaO2% (BldA) [Mass fraction] 100 % Dr. Dafne Cornell Work Phone: [facility] 03-23-2023 08:00-0400 Systolic blood pressure 115 mm[Hg] Dr. Dafne Cornell Work Phone: [facility] 03-20-2023 10:28-0400 Body height 185.[address] Dafne Cornell Work Phone: [facility] 03-20-2023 10:28-0400 Body mass index (BMI) [Ratio] 24.2 kg/m2 Dr. Dafne Cornell Work Phone: [facility] 03-20-2023 10:28-0400 Body weight 83.[address] Dafne Cornell Work Phone: [facility] 10-22-2022 13:03-0400 Body height 185.4 cm Dexter Daniel MD Work Phone: [facility] 10-22-2022 13:03-0400 Body mass index (BMI) [Ratio] 24.94 kg/m2 Dexter Daniel MD Work Phone: [facility] 10-22-2022 13:03-0400 Body temperature 97.3 [degF] Dexter Daniel MD Work Phone: [facility] 10-22-2022 13:03-0400 Body weight 85.73 kg Dexter Daniel MD Work Phone: [facility] 10-22-2022 13:03-0400 Diastolic blood pressure 93 mm[Hg] Dexter Daniel MD Work Phone: [facility] 10-22-2022 13:03-0400 Heart rate 96 /min Dexter Daniel MD Work Phone: [facility] 10-22-2022 13:03-0400 SaO2% (BldA) [Mass fraction] 96 % Dexter Daniel MD Work Phone: [facility] 10-22-2022 13:03-0400 Systolic blood pressure 138 mm[Hg] Dexter Daniel MD Work Phone: [facility] 07-22-2022 16:33-0500 Body height 185.42 cm Dexter Daniel Work Phone: [facility] Work Phone: 07-22-2022 16:33-0500 Body mass index (BMI) [Ratio] 24.41 kg/m2 Dexter Daniel Work Phone: [facility] Work Phone: 07-22-2022 16:33-0500 Body surface area Derived from formula 2.08 m2 Dexter Daniel Work Phone: [facility] Work Phone: 07-22-2022 16:33-0500 Body temperature 97.3 [degF] Dexter Daniel Work Phone: [facility] Work Phone: 07-22-2022 16:33-0500 Body weight 83.92 kg Dexter Daniel Work Phone: [facility] Work Phone: 07-22-2022 16:33-0500 Diastolic blood pressure 93 mm[Hg] Dexter Uriosteguipara Work Phone: [facility] Work Phone: 07-22-2022 16:33-0500 Heart rate 101 /min Valsharmin Uriosteguipara Work Phone: [facility] Work Phone: 07-22-2022 16:33-0500 SaO2% (BldA) [Mass fraction] 99 % [facility] Tk Uriosteguipara Work Phone: [facility] Work Phone: 07-22-2022 16:33-0500 Systolic blood pressure 134 mm[Hg] Dexter Uriosteguipara Work Phone: [facility] Work Phone: 07-16-2022 11:36-0500 Body temperature 97.6 [degF] Dr. Lavell Patel Work Phone: [facility] 07-16-2022 11:36-0500 Diastolic blood pressure 104 mm[Hg] Dr. Lavell Patel Work Phone: [facility] 07-16-2022 11:36-0500 Heart rate 86 /min Dr. Lavell Patel Work Phone: [facility] 07-16-2022 11:36-0500 Respiratory rate 15 /min Dr. Lavell Patel Work Phone: [facility] 07-16-2022 11:36-0500 SaO2% (BldA) [Mass fraction] 99 % Dr. Lavell Patel Work Phone: [facility] 07-16-2022 11:36-0500 Systolic blood pressure 145 mm[Hg] Dr. Lavell Patel Work Phone: [facility] 07-16-2022 04:47-0500 Body mass index (BMI) [Ratio] 24.3 kg/m2 Dr. Lavell Patel Work Phone: [facility] 07-16-2022 04:47-0500 Body weight 83.[address] Lavell Patel Work Phone: [facility] 07-16-2022 00:37-0500 Body height 185.[address] Lavell Patel Work Phone: [facility] 07-16-2022 00:05-0500 Body temperature 98.2 [degF] Dr. Lavell Patel Work Phone: [facility] 07-16-2022 00:05-0500 Diastolic blood pressure 99 mm[Hg] Dr. Lavell Patel Work Phone: [facility] 07-16-2022 00:05-0500 Heart rate 88 /min Dr. Lavell Patel Work Phone: [facility] 07-16-2022 00:05-0500 Respiratory rate 16 /min Dr. Lavell Patel Work Phone: [facility] 07-16-2022 00:05-0500 SaO2% (BldA) [Mass fraction] 97 % Dr. Lavell Patel Work Phone: [facility] 07-16-2022 00:05-0500 Systolic blood pressure 162 mm[Hg] Dr. Lavell Patel Work Phone: [facility] 07-15-2022 21:19-0500 Body height 185.[address] Lavell Patel Work Phone: [facility] 07-15-2022 21:19-0500 Body mass index (BMI) [Ratio] 23.6 kg/m2 Dr. Lavell Patel Work Phone: [facility] 07-15-2022 21:19-0500 Body weight 81.[address] Lavell Patel Work Phone: [facility] 07-03-2022 19:51-0500 Diastolic blood pressure 97 mm[Hg] Dr. Lavell Patel Work Phone: [facility] 07-03-2022 19:51-0500 Heart rate 79 /min Dr. Lavell Patel Work Phone: [facility] 07-03-2022 19:51-0500 Respiratory rate 16 /min Dr. Lavell Patel Work Phone: [facility] 07-03-2022 19:51-0500 SaO2% (BldA) [Mass fraction] 99 % Dr. Lavell Patel Work Phone: [facility] 07-03-2022 19:51-0500 Systolic blood pressure 157 mm[Hg] Dr. Lavell Patel Work Phone: [facility] 07-03-2022 15:43-0500 Body height 185.[address] Lavell Patel Work Phone: [facility] 07-03-2022 15:43-0500 Body mass index (BMI) [Ratio] 26.4 kg/m2 Dr. Lavell Patel Work Phone: [facility] 07-03-2022 15:43-0500 Body temperature 96.9 [degF] Dr. Lavell Patel Work Phone: [facility] 07-03-2022 15:43-0500 Body weight 90.[address] Lavell Patel Work Phone: [facility] 06-20-2022 13:29-0500 Body temperature 98.1 [degF] Dr. Lavell Patel Work Phone: [facility] 06-20-2022 13:29-0500 Diastolic blood pressure 82 mm[Hg] Dr. Lavell Patel Work Phone: [facility] 06-20-2022 13:29-0500 Heart rate 71 /min Dr. Lavell Patel Work Phone: [facility] 06-20-2022 13:29-0500 Respiratory rate 18 /min Dr. Lavell Patel Work Phone: [facility] 06-20-2022 13:29-0500 SaO2% (BldA) [Mass fraction] 98 % Dr. Lavell Patel Work Phone: [facility] 06-20-2022 13:29-0500 Systolic blood pressure 132 mm[Hg] Dr. Lavell Patel Work Phone: [facility] 06-17-2022 11:46-0500 Body height 185.[address] Lavell Patel Work Phone: [facility] 06-17-2022 11:46-0500 Body mass index (BMI) [Ratio] 25.9 kg/m2 Dr. Lavell Patel Work Phone: [facility] 06-17-2022 11:46-0500 Body weight 89.[address] Lavell Patel Work Phone: [facility] 06-17-2022 11:00-0500 Diastolic blood pressure 79 mm[Hg] Dr. Paul Ontiveros Work Phone: [facility] 06-17-2022 11:00-0500 Heart rate 82 /min Dr. Paul Ontiveros Work Phone: [facility] 06-17-2022 11:00-0500 Respiratory rate 16 /min Dr. Paul Ontiveros Work Phone: [facility] 06-17-2022 11:00-0500 SaO2% (BldA) [Mass fraction] 99 % Dr. Paul Ontiveros Work Phone: [facility] 06-17-2022 11:00-0500 Systolic blood pressure 123 mm[Hg] Dr. Paul Ontiveros Work Phone: [facility] 06-17-2022 10:18-0500 Body temperature 98.3 [degF] Dr. Paul Ontiveros Work Phone: [facility] 06-17-2022 07:49-0500 Body height 185.[address] Paul Ontiveros Work Phone: [facility] 06-17-2022 07:49-0500 Body mass index (BMI) [Ratio] 26.1 kg/m2 Dr. Paul Ontiveros Work Phone: [facility] 06-17-2022 07:49-0500 Body weight 89.[address] Paul Ontiveros Work Phone: [facility] 06-06-2022 16:46-0500 Body height 185.42 cm Dexter Uriosteguipara Work Phone: [facility] Work Phone: 06-06-2022 16:46-0500 Body mass index (BMI) [Ratio] 27.31 kg/m2 Valji D Munsebpara Work Phone: [facility] Work Phone: 06-06-2022 16:46-0500 Body surface area Derived from formula 2.18 m2 Tristasharmin Uriosteguipara Work Phone: [facility] Work Phone: 06-06-2022 16:46-0500 Body temperature 97.5 [degF] Dexter Tk Quintanajapara Work Phone: [facility] Work Phone: 06-06-2022 16:46-0500 Body weight 93.9 kg Valsharmin D Kamalajapara Work Phone: [facility] Work Phone: 06-06-2022 16:46-0500 Diastolic blood pressure 96 mm[Hg] Tristasharmin D Kamalajapara Work Phone: [facility] Work Phone: 06-06-2022 16:46-0500 Heart rate 108 /min Valsharmin D Kamalajapara Work Phone: [facility] Work Phone: 06-06-2022 16:46-0500 SaO2% (BldA) [Mass fraction] 98 % Dexter Daniel Work Phone: [facility] Work Phone: 06-06-2022 16:46-0500 Systolic blood pressure 140 mm[Hg] Dexter Daniel Work Phone: [facility] Work Phone: 06-01-2022 14:25-0500 Diastolic blood pressure 107 mm[Hg] Dr. Paul Ontiveros Work Phone: [facility] 06-01-2022 14:25-0500 Heart rate 80 /min Dr. Paul Ontiveros Work Phone: [facility] 06-01-2022 14:25-0500 Respiratory rate 16 /min Dr. Paul Ontiveros Work Phone: [facility] 06-01-2022 14:25-0500 SaO2% (BldA) [Mass fraction] 96 % Dr. Paul Ontiveros Work Phone: [facility] 06-01-2022 14:25-0500 Systolic blood pressure 161 mm[Hg] Dr. Paul Ontiveros Work Phone: [facility] 06-01-2022 13:49-0500 Body height 185.[address] Paul Ontiveros Work Phone: [facility] Work Phone: 06-01-2022 13:49-0500 Body mass index (BMI) [Ratio] 26.4 kg/m2 Dr. Paul Ontiveros Work Phone: [facility] 06-01-2022 13:49-0500 Body temperature 97.2 [degF] Dr. Paul Ontiveros Work Phone: [facility] 06-01-2022 13:49-0500 Body weight 90.[address] Paul Ontiveros Work Phone: [facility] 05-29-2022 13:42-0500 Body mass index (BMI) [Ratio] 26.4 kg/m2 Dr. Paul Ontiveros Work Phone: [facility] 05-29-2022 13:42-0500 Body temperature 96.6 [degF] Dr. Paul Ontiveros Work Phone: [facility] 05-29-2022 13:42-0500 Body weight 90.[address] Paul Ontiveros Work Phone: [facility] 05-29-2022 13:42-0500 Diastolic blood pressure 84 mm[Hg] Dr. Paul Ontiveros Work Phone: [facility] 05-29-2022 13:42-0500 Heart rate 113 /min Dr. Paul Ontiveros Work Phone: [facility] 05-29-2022 13:42-0500 Respiratory rate 18 /min Dr. Paul Ontiveros Work Phone: [facility] 05-29-2022 13:42-0500 SaO2% (BldA) [Mass fraction] 97 % Dr. Paul Ontiveros Work Phone: [facility] 05-29-2022 13:42-0500 Systolic blood pressure 135 mm[Hg] Dr. Paul Ontiveros Work Phone: [facility] 05-03-2022 19:43-0500 Diastolic blood pressure 99 mm[Hg] [facility] 05-03-2022 19:43-0500 Heart rate 102 /min [facility] 05-03-2022 19:43-0500 Respiratory rate 16 /min [facility] 05-03-2022 19:43-0500 SaO2% (BldA) [Mass fraction] 98 % [facility] 05-03-2022 19:43-0500 Systolic blood pressure 153 mm[Hg] [facility] 05-03-2022 14:54-0500 Body temperature 98.5 [degF] [facility] 05-03-2022 13:26-0500 Body height 185.42 cm [facility] Work Phone: 05-03-2022 13:26-0500 Body mass index (BMI) [Ratio] 25 kg/m2 [facility] 05-03-2022 13:26-0500 Body weight 86.18 kg [facility] 01-29-2022 15:48-0400 Diastolic blood pressure 97 mm[Hg] Dr. Yrn Pollock Work Phone: [facility] Work Phone: 01-29-2022 15:48-0400 Heart rate 80 /min Dr. Yrn Pollock Work Phone: [facility] Work Phone: 01-29-2022 15:48-0400 Systolic blood pressure 141 mm[Hg] Dr. Yrn Pollock Work Phone: [facility] Work Phone: 01-29-2022 09:51-0400 Body height 187.[address] Yrn Pollock Work Phone: [facility] Work Phone: 01-29-2022 09:51-0400 Body mass index (BMI) [Ratio] 25 kg/m2 Dr. Yrn Pollock Work Phone: [facility] Work Phone: 01-29-2022 09:51-0400 Body temperature 97 [degF] Dr. Yrn Pollock Work Phone: [facility] Work Phone: 01-29-2022 09:51-0400 Body weight 88.[address] Yrn Pollock Work Phone: [facility] Work Phone: 01-29-2022 09:51-0400 Respiratory rate 16 /min Dr. Yrn Pollock Work Phone: [facility] Work Phone: 01-29-2022 09:51-0400 SaO2% (BldA) [Mass fraction] 100 % Dr. Yrn Pollock Work Phone: [facility] Work Phone: 11-14-2021 09:59-0400 Body mass index (BMI) [Ratio] 25.2 kg/m2 Dr. Yrn Pollock Work Phone: [facility] Work Phone: 11-14-2021 09:59-0400 Body temperature 93.7 [degF] Dr. Yrn Pollock Work Phone: [facility] Work Phone: 11-14-2021 09:59-0400 Body weight 88.[address] Yrn Pollock Work Phone: [facility] Work Phone: 11-14-2021 09:59-0400 Diastolic blood pressure 98 mm[Hg] Dr. Yrn Pollock Work Phone: [facility] Work Phone: 11-14-2021 09:59-0400 Heart rate 90 /min Dr. Yrn Pollock Work Phone: [facility] Work Phone: 11-14-2021 09:59-0400 Respiratory rate 18 /min Dr. Yrn Pollock Work Phone: [facility] Work Phone: 11-14-2021 09:59-0400 SaO2% (BldA) [Mass fraction] 99 % Dr. Yrn Pollock Work Phone: [facility] Work Phone: 11-14-2021 09:59-0400 Systolic blood pressure 140 mm[Hg] Dr. Yrn Pollock Work Phone: [facility] Work Phone: 09-27-2021 10:10-0400 Body temperature 97.7 [degF] Dr. Sachin Kennedy Work Phone: [facility] Work Phone: 09-27-2021 10:10-0400 Diastolic blood pressure 88 mm[Hg] Dr. Sachin Kennedy Work Phone: [facility] Work Phone: 09-27-2021 10:10-0400 Heart rate 73 /min Dr. Sachin Kennedy Work Phone: [facility] Work Phone: 09-27-2021 10:10-0400 Respiratory rate 18 /min Dr. Sachin Kennedy Work Phone: [facility] Work Phone: 09-27-2021 10:10-0400 SaO2% (BldA) [Mass fraction] 100 % Dr. Sachin Kennedy Work Phone: [facility] Work Phone: 09-27-2021 10:10-0400 Systolic blood pressure 133 mm[Hg] Dr. Sachin Kennedy Work Phone: [facility] Work Phone: 09-27-2021 05:29-0400 Body weight [address] Sachin Kennedy Work Phone: [facility] Work Phone: 09-26-2021 09:30-0400 Body height 187.[address] Sachin Kennedy Work Phone: [facility] Work Phone: 09-25-2021 22:17-0400 Diastolic blood pressure 91 mm[Hg] [facility] Work Phone: 09-25-2021 22:17-0400 Heart rate 140 /min [facility] Work Phone: 09-25-2021 22:17-0400 Systolic blood pressure 137 mm[Hg] [facility] Work Phone: 09-25-2021 20:17-0400 Body height 187.96 cm [facility] Work Phone: 09-25-2021 20:17-0400 Body mass index (BMI) [Ratio] 24.7 kg/m2 [facility] Work Phone: 09-25-2021 20:17-0400 Body weight 87.5 kg [facility] Work Phone: 09-25-2021 19:35-0400 Body temperature 98 [degF] [facility] Work Phone: 09-25-2021 19:35-0400 Respiratory rate 21 /min [facility] Work Phone: 09-25-2021 19:35-0400 SaO2% (BldA) [Mass fraction] 100 % [facility] Work Phone: 07-26-2021 09:18-0500 Body height 185.42 cm Tristasharmin Uriosteguipara Work Phone: [facility] Work Phone: 07-26-2021 09:18-0500 Body mass index (BMI) [Ratio] 27.15 kg/m2 Dexter Quintanajapara Work Phone: [facility] Work Phone: 07-26-2021 09:18-0500 Body surface area Derived from formula 2.18 m2 Dexter Uriosteguipara Work Phone: [facility] Work Phone: 07-26-2021 09:18-0500 Body temperature 97.4 [degF] Dexter Quintanajapara Work Phone: [facility] Work Phone: 07-26-2021 09:18-0500 Body weight 93.35 kg Valji Tk Munjapara Work Phone: [facility] Work Phone: 07-26-2021 09:18-0500 Diastolic blood pressure 96 mm[Hg] Valsharmin Frey Munjapara Work Phone: [facility] Work Phone: 07-26-2021 09:18-0500 Systolic blood pressure 130 mm[Hg] Dexter Uriosteguipara Work Phone: [facility] Work Phone: 06-11-2021 14:07-0500 Diastolic blood pressure 90 mm[Hg] Dexter Uriosteguipara Work Phone: -[facility] Work Phone: 06-11-2021 14:07-0500 Systolic blood pressure 160 mm[Hg] Dexter Uriosteguipara Work Phone: -[facility] Work Phone: 06-11-2021 13:43-0500 Body temperature 97.4 [degF] Dexter Uriosteguipara Work Phone: [facility] Work Phone: 06-11-2021 13:43-0500 Body weight 92.99 kg Dexter Brusha Work Phone: [facility] Work Phone: 06-11-2021 13:43-0500 Heart rate 104 /min Dexter Brusha Work Phone: [facility] Work Phone: 06-11-2021 13:43-0500 SaO2% (BldA) [Mass fraction] 98 % Dexter Frey Kamalawendiea Work Phone: [facility] Work Phone: Encounters Encounter Date Encounter Type Care Provider Facility Start: 03-02-2025 End: 03-02-2025 [facility] Facility:[facility] Start: 02-07-2025 End: 02-07-2025 Emergency department patient visit Dr. Dexter Daniel MD Work Phone: -Emergency Department Work Phone: Start: 01-22-2025 End: 01-22-2025 Emergency department patient visit Dr. Dexter Daniel MD Work Phone: -Emergency Department Work Phone: Start: 09-20-2024 End: 09-20-2024 ambulatory [facility] Facility:[facility] Start: 06-19-2024 End: 06-19-2024 ambulatory [facility] Facility:[facility] Start: 06-15-2024 End: 06-15-2024 ambulatory [facility] Facility:[facility] Start: 03-01-2024 End: 03-02-2024 Evaluation and management of inpatient [facility] Work Phone: Comment on above: DKA, type 1, not at goal (Primary Dx); Acute pancreatitis, unspecified complication status, unspecified pancreatitis type (HHS-HCC); Hypertension, unspecified type Start: 12-15-2023 End: 12-15-2023 Office outpatient visit 25 minutes Dexter Daniel MD Work Phone: [facility] Comment on above: Fatty liver (Primary Dx); Elevated uric acid in blood; DM type 2 with diabetic mixed hyperlipidemia (Multi); Gout, unspecified cause, unspecified chronicity, unspecified site; Alcohol abuse; GERD without esophagitis; Primary hypertension; Hypertension, unspecified type Start: 12-15-2023 End: 12-15-2023 [facility] Start: 12-11-2023 End: 12-11-2023 Subsequent hospital visit by physician [address] Comment on above: Abdominal pain, unsp ecified abdominal location Chronic kidney disea se, unspecified CKD stage Start: 12-11-2023 End: 12-11-2023 ambulatory [facility] Start: 12-08-2023 End: 12-08-2023 Periodic preventive med est patient 18-39 yrs Dexter Daniel MD Work Phone: [facility] Comment on above: Annual visit for [facility] adult medical examination with abnormal findings (Primary Dx); Chronic kidney disease, unspecified CKD stage; Abdominal pain, unspecified abdominal location; 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 Paul Ontiveros Work Phone: [facility] Work Phone: Start: 08-15-2023 End: 08-15-2023 Patient encounter procedure Dr. Paul Ontiveros Work Phone: [facility] Work Phone: Start: 06-09-2023 End: 06-09-2023 Office outpatient visit 25 minutes Dexter Daniel MD Work Phone: [facility] Comment on above: Alcohol abuse (Prima ry Dx); Fatigue due to depression; 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); Current mild episode of major depressive disorder without prior episode (CMS/HCC); Hypertension, unspecified type; DM type 2 with diabetic mixed hyperlipidemia ([facility]/HCC); Abdominal pain, unspecified abdominal location; GERD without esophagitis Start: 06-09-2023 End: 06-09-2023 ambulatory [facility] Start: 03-23-2023 Non-patient / Non-visit Dr. Francisco Cornell Work Phone: [facility] Work Phone: Start: 03-22-2023 Non-patient / Non-visit Dr. Francisco Cornell Work Phone: [facility] Work Phone: Start: 03-21-2023 Non-patient / Non-visit Dr. Francisco Cornell Work Phone: [facility] Work Phone: Start: 03-20-2023 End: 03-23-2023 Evaluation and management of inpatient Dr. Dafne Cornell Work Phone: [facility]-Medical Surgical 3 Work Phone: Start: 10-22-2022 End: 12-15-2023 Patient encounter procedure Dexter Daniel MD Work Phone: [facility] Work Phone: Start: 10-22-2022 End: 10-22-2022 Periodic preventive med est patient 18-39 yrs Dexter Daniel MD Work Phone: [facility] Comment on above: Annual visit for [facility] adult medical examination with abnormal findings (Primary Dx); 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); Current mild episode of major depressive disorder without prior episode (CMS/HCC); Hypertension, unspecified type; DM type 2 with diabetic mixed hyperlipidemia ([facility]/HCC); GERD without esophagitis Start: 07-22-2022 Office outpatient vi sit 25 minutes Dexter Daniel Work Phone: [facility] Work Phone: Start: 07-16-2022 Non-patient / Non-visit Dr. Cheryl Patel Work Phone: [facility] Start: 07-15-2022 Non-patient / Non-visit Dr. Cheryl Patel Work Phone: [facility] Start: 07-15-2022 End: 07-16-2022 Evaluation and management of inpatient Dr. Lavell Patel Work Phone: [facility]-Intensive Care Unit Start: 07-03-2022 End: 07-03-2022 Emergency department patient visit Dr. Lavell Patel Work Phone: [facility]-Emergency Department Start: 06-20-2022 Non-patient / Non-visit Dr. Cheryl Patel Work Phone: [facility] Start: 06-19-2022 Non-patient / Non-visit Dr. Cheryl Patel Work Phone: [facility] Start: 06-18-2022 Non-patient / Non-visit Dr. Cheryl Patel Work Phone: [facility] Start: 06-17-2022 Non-patient / Non-visit Dr. Cheryl Patel Work Phone: [facility] Start: 06-17-2022 End: 06-20-2022 Evaluation and management of inpatient [facility]. [facility] Start: 06-06-2022 Office outpatient vi sit 25 minutes Dexter Daniel Work Phone: [facility] Work Phone: Start: 06-01-2022 End: 06-01-2022 Emergency department patient visit Dr. [facility] Start: 05-29-2022 End: 05-29-[address] Paul Ontiveros Work Phone: [facility] Endocr[facility] Start: 05-03-2022 End: 05-03-2022 Emergency department patient visit [facility]-Emergency Department Start: 01-29-2022 End: 01-29-2022 Emergency department patient visit Dr. Yrn Pollock Work Phone: [facility]-Emergency Department Start: 11-14-2021 End: 11-14-[address] Yrn Pollock Work Phone: [facility] Endocr[facility]ology Start: 09-27-2021 Non-patient / Non-visit Dr. Carrillo Kennedy Work Phone: [facility] Start: 09-26-2021 Non-patient / Non-visit Dr. Carrillo Kennedy Work Phone: [facility] Start: 09-25-2021 End: 09-27-2021 Evaluation and management of inpatient [facility]-Intensive Care Unit Start: 07-27-2021 Chart Update Dexter gutierrez Work Phone: [facility] Work Phone: Start: 07-26-2021 Office outpatient vi sit 25 minutes Dexter Daniel Work Phone: [facility] Work Phone: Start: 06-11-2021 Office outpatient ne w 30 minutes Dexter Daniel Work Phone: [facility] Work Phone: Start: 02-10-2018 End: 02-11-2018 Patient encounter DEFAULT PHYSICIAN Facility:[facility] Start: 09-02-2017 Ambulatory [facility] [...] Zoster Vacc stephanie (1 of 2) [facility] Start: 06-09-2028 Cyanocobalamin vitam in b-12 Vitamin B-12 [facility] Start: 05-09-2025 ambulatory Ambulatory Facility:[facility] Start: 03-01-2025 Lipid panel Lipid Panel [facility] Start: 03-01-2025 Thyroid stimulating hormone measurement TSH Level [facility] Start: 02-07-2025 [facility] Start: 12-08-2024 Yearly Adult Physical Yearly Adult P hysical [facility] Start: 12-07-2024 Diabetic foot examination Diabetes: Foot Exam [facility] Start: 06-09-2024 Diabetic foot examination Diabetes: Foot Exam [facility] Start: 06-09-2024 Lipid panel Lipid Panel [facility] Start: 06-09-2024 Urine screening for protein Diabetes: Urine Protein Screening [facility] Start: 06-01-2024 Hemoglobin A1c measurement Diabetes: Hemoglobin A1C [facility] Start: 03-16-2024 End: 03-16-2024 Patient encounter procedure 03/16/2024 4:30 PM EDT Office Visit [facility] [address] [facility] [address] [place] [phone] Dexter Daniel MD [address] [place] [address] [facility] Start: 03-07-2024 Glaucoma screening Diabetes: R etinopathy Screening [facility] Start: 01-25-2024 Influenza vaccination Influenza Vacc ine (#1) [facility] Start: 01-05-2024 End: 01-05-2024 Patient encounter procedure 01/05/2024 3:00 PM EDT Office Visit [facility] [address] [phone] Dexter Daniel MD [address] [place] [address] [facility] Start: 12-15-2023 End: 12-14-2024 Comprehensive metabolic 2000 panel - Serum or Plasma Comprehensive Metabolic Panel Lab Routine Fatty liver Expected: 12/15/2023 (Approximate), Expires: 12/14/2024 [facility] Service Area Work Phone: Comment on above: Expected: 12/15/2023 (Approximate), Expires: 12/14/2024 Start: 12-15-2023 End: 12-14-2024 Urate [Mass/volume] in Serum or Plasma Uric Acid Lab Routine Fatty liver Expected: 12/15/2023 (Approximate), Expires: 12/14/2024 [facility] Work Phone: Comment on above: Expected: 12/15/2023 (Approximate), Expires: 12/14/2024 Start: 12-15-2023 End: 12-15-2023 Patient encounter procedure 12/15/2023 9:45 AM EDT Office Visit [facility] [address] [phone] Dexter Daniel MD [address] [place], [place] [id number] [facility] Start: 12-08-2023 End: 12-07-2024 CBC [...] abuse Expected: 12/08/2023 (Approximate), Expires: 12/07/2024 [facility] Work Phone: Comment on above: Expected: [...] abuse Expected: 12/08/2023 (Approximate), Expires: 06/09/2025 [facility] Work Phone: Comment on above: Expected: [...] abuse Expected: 12/08/2023 (Approximate), Expires: 12/07/2024 [facility] Work Phone: Comment on above: Expected: [...] Alcohol abuse Expected: 12/08/2023 (Approximate), Expires: 12/07/2024 [facility] Service Area Work Phone: Comment on above: Expected: 12/08/2023 (Approximate), Expires: 12/07/2024 Start: 12-08-2023 End: 12-07-2024 Lipid 1996 panel - Serum or Plasma Lipid Panel Lab Routine Chronic kidney disease, unspecified CKD stage Abdominal pain, unspecified abdominal location 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) Current mild episode of major depressive disorder without prior episode ([facility]-HCC) DM type 2 with diabetic mixed hyperlipidemia (Multi) Alcohol abuse Expected: 12/08/2023 (Approximate), Expires: 12/07/2024 [facility] Work Phone: Comment on above: Expected: 12/08/2023 (Approximate), Expires: 12/07/2024 Start: 12-08-2023 End: 12-07-2024 Microalbumin/Creatinine [Mass Ratio] in Urine Albumin-Creatinine Ratio, Urine Random Lab Routine Chronic kidney disease, unspecified CKD stage Abdominal pain, unspecified abdominal location 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) Current mild episode of major depressive disorder without prior episode ([facility]-HCC) DM type 2 with diabetic mixed hyperlipidemia (Multi) Alcohol abuse Expected: 12/08/2023 (Approximate), Expires: 12/07/2024 [facility] Work Phone: Comment on above: Expected: 12/08/2023 (Approximate), Expires: 12/07/2024 Start: 12-08-2023 End: 12-07-2025 Stress cardiac echo study report Echocardiogram Stress Test Stress Echocardiography Routine Chronic kidney disease, unspecified CKD stage Abdominal pain, unspecified abdominal location 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) Current mild episode of major depressive disorder without prior episode ([facility]-HCC) DM type 2 with diabetic mixed hyperlipidemia (Multi) Alcohol abuse Expected: 12/08/2023 (Approximate), Expires: 12/07/2025 [facility] Work Phone: Comment on above: Expected: [...] abuse Expected: 12/08/2023 (Approximate), Expires: 12/07/2024 [facility] Work Phone: Comment on above: Expected: [...] abuse Expected: 12/08/2023 (Approximate), Expires: 12/07/2024 [facility] Work Phone: Comment on above: Expected: 12/08/2023 (Approximate), Expires: 12/07/2024 Start: 12-08-2023 End: 12-07-2024 US Biliary ducts and Gallbladder US biliary system Imaging Routine Abdominal pain, unspecified abdominal location Expected: 12/08/2023, Expires: 12/07/2024 [facility] Work Phone: Comment on above: Expected: 12/08/2023 , Expires: 12/07/2024 Start: 12-08-2023 End: 12-07-2024 US Kidney - bilateral and Urinary bladder US renal complete Imaging Routine Chronic kidney disease, unspecified CKD stage Expected: 12/08/2023, Expires: 12/07/2024 [facility] Work Phone: Comment on above: Expected: 12/08/2023 , Expires: 12/07/2024 Start: 10-27-2023 End: 10-27-2023 Patient encounter procedure 10/27/2023 1:00 PM EDT Office Visit [facility] [address] [facility] [address] [place] [phone] Dexter Daniel MD [address] [place] [address] [facility] Start: 10-24-2023 Yearly Adult Physical Yearly Adult P hysical [facility] Start: 09-08-2023 Hemoglobin A1c measurement Diabetes: Hemoglobin A1C [facility] Start: 09-04-2023 [facility] Start: 06-09-2023 End: 06-09-2024 CBC W Auto Differential panel - Blood [facility] Work Phone: Comment on above: Expected: 06/09/2023 (Approximate), Expires: 06/09/2024 Start: 06-09-2023 End: 06-09-2024 Cobalamin (Vitamin B12) [Mass/volume] in Serum or Plasma [facility] Work Phone: Comment on above: Expected: 06/09/2023 (Approximate), Expires: 06/09/2024 Start: 06-09-2023 End: 06-09-2024 Comprehensive metabolic 2000 panel - Serum or Plasma [facility] Work Phone: Comment on above: Expected: 06/09/2023 (Approximate), Expires: 06/09/2024 Start: 06-09-2023 End: 06-09-2024 Drugs of abuse screen W Reflex confirm panel - Urine [facility] Work Phone: Comment on above: Expected: 06/09/2023 (Approximate), Expires: 06/09/2024 Start: 06-09-2023 End: 06-09-2024 Hemoglobin A1c/Hemoglobin.total in Blood [facility] Work Phone: Comment on above: Expected: 06/09/2023 (Approximate), Expires: 06/09/2024 Start: 06-09-2023 End: 06-09-2024 Hepatitis C virus Ab [Presence] in Serum [facility] Work Phone: Comment on above: Expected: 06/09/2023 (Approximate), Expires: 06/09/2024 Start: 06-09-2023 End: 06-09-2024 HIV 1+2 Ab+HIV1 p24 Ag [Presence] in Serum or Plasma by Immunoassay [facility] Service Area Work Phone: Comment on above: Expected: 06/09/2023 (Approximate), Expires: 06/09/2024 Start: 06-09-2023 End: 06-09-2024 Iron and Iron binding capacity panel - Serum or Plasma [facility] Work Phone: Comment on above: Expected: 06/09/2023 (Approximate), Expires: 06/09/2024 Start: 06-09-2023 End: 06-09-2024 Lipid 1996 panel - Serum or Plasma [facility] Work Phone: Comment on above: Expected: 06/09/2023 (Approximate), Expires: 06/09/2024 Start: 06-09-2023 End: 06-09-2024 Magnesium [Mass/volume] in Serum or Plasma [facility] Work Phone: Comment on above: Expected: 06/09/2023 (Approximate), Expires: 06/09/2024 Start: 06-09-2023 End: 06-09-2024 Microalbumin/Creatinine [Mass Ratio] in Urine [facility] Work Phone: Comment on above: Expected: 06/09/2023 (Approximate), Expires: 06/09/2024 Start: 06-09-2023 End: 06-09-2024 Testosterone, total and free [facility] Work Phone: Comment on above: Expected: 06/09/2023 (Approximate), Expires: 06/09/2024 Start: 06-09-2023 End: 06-09-2024 TSH with reflex to Free T4 if abnormal [facility] Work Phone: Comment on above: Expected: 06/09/2023 (Approximate), Expires: 06/09/2024 Start: 06-09-2023 End: 06-09-2024 Urate [Mass/volume] in Serum or Plasma [facility] Work Phone: Comment on above: Expected: 06/09/2023 (Approximate), Expires: 06/09/2024 Start: 06-09-2023 End: 06-09-2024 Urinalysis microscopic panel - Urine Qualitative by Automated [facility] Work Phone: Comment on above: Expected: 06/09/2023 (Approximate), Expires: 06/09/2024 Start: 06-09-2023 End: 06-09-2024 US Biliary ducts and Gallbladder US biliary system Imaging Routine Abdominal pain, unspecified abdominal location Expected: 06/09/2023, Expires: 06/09/2024 [facility] Work Phone: Comment on above: Expected: 06/09/2023 , Expires: 06/09/2024 Start: 03-23-2023 Patient discharge [facility] Start: 03-20-2023 [facility] Start: 03-20-2023 Following clinical pathway protocol [facility] Start: 03-20-2023 Assessment of risk o f venous thromboembolism [facility] Start: 03-20-2023 Care regimes management [facility] Start: 03-20-2023 Insertion of cathete r into peripheral vein [facility] Start: 03-20-2023 Notification of physician [facility] Start: 03-20-2023 Providing care accor ding to standard [facility] Start: 03-20-2023 Referral to service [facility] Start: 03-20-2023 [facility] Start: 03-20-2023 Verification routine [facility] Start: 03-20-2023 Admission procedure [facility] Start: 01-24-2023 Influenza vaccination U [facility] Start: 11-28-2022 End: 11-28-2022 Patient encounter procedure 11/28/2022 1:45 PM EDT Office Visit [facility] [address] [facility] [address] [place] [phone] Dexter Daniel MD [address] [facility] [address] [place] [address] [facility] Start: 10-22-2022 End: 10-23-2023 CBC W Auto Differential panel - Blood CBC and Auto Differential Lab Routine Annual visit for general adult medical examination with abnormal findings 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) Expected: 10/22/2022 (Approximate), Expires: 10/23/2023 [facility] Work Phone: Comment on above: Expected: 10/22/2022 (Approximate), Expires: 10/23/2023 Start: 10-22-2022 End: 10-23-2023 Comprehensive metabolic 2000 panel - Serum or Plasma Comprehensive Metabolic Panel Lab Routine Annual visit for general adult medical examination with abnormal findings 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) Expected: 10/22/2022 (Approximate), Expires: 10/23/2023 [facility] Work Phone: Comment on above: Expected: 10/22/2022 (Approximate), Expires: 10/23/2023 Start: 10-22-2022 End: 10-23-2023 Hemoglobin A1c/Hemoglobin.total in Blood Hemoglobin A1C Lab Routine Annual visit for general adult medical examination with abnormal findings 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) Expected: 10/22/2022 (Approximate), Expires: 10/23/2023 [facility] Work Phone: Comment on above: Expected: 10/22/2022 (Approximate), Expires: 10/23/2023 Start: 10-22-2022 End: 10-23-2023 Lipid 1996 panel - Serum or Plasma Lipid Panel Lab Routine Annual visit for general adult medical examination with abnormal findings 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) Expected: 10/22/2022 (Approximate), Expires: 10/23/2023 [facility] Work Phone: Comment on above: Expected: 10/22/2022 (Approximate), Expires: 10/23/2023 Start: 10-22-2022 End: 10-23-2023 Microalbumin/Creatinine [Mass Ratio] in Urine Albumin , Urine Random Lab Routine Annual visit for general adult medical examination with abnormal findings 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) Expected: 10/22/2022 (Approximate), Expires: 10/23/2023 [facility] Service Area Work Phone: Comment on above: Expected: 10/22/2022 (Approximate), Expires: 10/23/2023 Start: 07-26-2022 Lipid panel Lipid Panel [facility] Start: 07-26-2022 Urine screening for protein Diabetes: Urine Protein Screening [facility] Start: 07-22-2022 FUV, Provider: eDxter Daniel, Status: Pen, Time: 4:45 PM FUV, Provider: Dexter Daniel, Status: Pen, Time: 4:45 PM [facility] Work Phone: Start: 07-17-2022 Blood chemistry [facility] Start: 07-16-2022 Blood chemistry [facility] Start: 07-16-2022 Blood chemistry [facility] Start: 07-16-2022 Blood chemistry [facility] Start: 07-16-2022 Patient discharge [facility] Start: 07-16-2022 Blood chemistry [facility] Start: 07-16-2022 [facility] Start: 07-16-2022 Application of intermittent pneumatic compression device [facility] Start: 07-16-2022 Assessment of risk o f venous thromboembolism [facility] Start: 07-16-2022 Continuous pulse oximetry [facility] Start: 07-16-2022 End: 07-16-2022 Following clinical pathway protocol [facility] Start: 07-16-2022 Insertion of cathete r into peripheral vein [facility] Start: 07-16-2022 Lab findings surveillance [facility] Start: 07-16-2022 Measuring intake and output [facility] Start: 07-16-2022 Notification of physician [facility] Start: 07-16-2022 Patient education [facility] Start: 07-16-2022 Providing care accor ding to standard [facility] Start: 07-16-2022 Vital signs measurements [facility] Start: 07-16-2022 End: 07-16-2022 [facility] Start: 07-16-2022 Patient referral to dietitian [facility] Start: 07-15-2022 Verification routine [facility] Start: 07-15-2022 Admission procedure [facility] Start: 07-15-2022 [facility] Start: 06-20-2022 Patient discharge [facility] Start: 06-17-2022 Assessment of risk o f venous thromboembolism [facility] Start: 06-17-2022 Care regimes management [facility] Start: 06-17-2022 Catheterization of vein [facility] Start: 06-17-2022 Insertion of cathete r into peripheral vein [facility] Start: 06-17-2022 Providing care accor ding to standard [facility] Start: 06-17-2022 Referral to service [facility] Start: 06-17-2022 End: 06-17-2022 [facility] Start: 06-17-2022 Following clinical pathway protocol [facility] Start: 06-17-2022 Verification routine [facility] Start: 06-17-2022 Admission procedure [facility] Start: 01-29-2022 Blood chemistry [facility] Work Phone: Start: 10-26-2021 Hemoglobin A1c measurement Diabetes: Hemoglobin A1C [facility] Start: 09-25-2021 Bacteria identified in Blood by Culture Blood Culture [facility] Work Phone: Start: 09-25-2021 Respiratory Panel (PCR) Respiratory Panel (PCR) [facility] Work Phone: Start: 10-05-2020 COVID-19 Vaccine (3 - Booster for Pfizer series) COVID-19 Vaccine (3 - Booster for Pfizer series) [facility] Start: 10-05-2020 COVID-19 Vaccine (3 - Pfizer series) COVID-19 Vaccine (3 - Pfizer series) [facility] Start: 02-27-2019 DTaP/Tdap/Td Vaccine s (7 - Td or Tdap) DTaP/Tdap/Td Vaccines (7 - Td or Tdap) [facility] Start: 2014 Hepatitis C screening Hepatitis C Sc yelena [facility] Start: 02-27-2010 Pneumococcal Vaccine : Pediatrics (0 to 5 Years) and At-Risk Patients (6 to 64 Years) (2 - PCV) Pneumococcal Vaccine: Pediatrics (0 to 5 Years) and At-Risk Patients (6 to 64 Years) (2 - PCV) [facility] Start: 2007 HPV Vaccines (1 - Ma le 2-dose series) HPV Vaccines (1 - Male 2-dose series) [facility] Start: 2006 Diabetic foot examination Diabetes: Foot Exam [facility] Start: 2006 Ophthalmic examinati on and evaluation Diabetes: Retinopathy Screening [facility] Start: 04-02-2002 Varicella vaccination Varicell a Vaccines (1 of 2 - 2-dose childhood series) [facility] Start: 1996 Diabetes: Celiac Dis ease Screening Diabetes: Celiac Disease Screening [facility] Start: 1996 HIV screening HIV Screening [facility] Anion gap measurement [facility] Work Phone: Anion gap measurement [facility] Anion gap measurement [facility] Anion gap measurement [facility] Anion gap measurement [facility] Anion gap measurement [facility] Bilirubin measuremen t, urine [facility] BUN/Creatinine ratio [facility] Work Phone: BUN/Creatinine ratio [facility] BUN/Creatinine ratio [facility] BUN/Creatinine ratio [facility] BUN/Creatinine ratio [facility] BUN/Creatinine ratio [facility] Calcium [Mass/volume ] in Serum or Plasma [facility] Work Phone: Calcium [Mass/volume ] in Serum or Plasma [facility] Calcium [Mass/volume ] in Serum or Plasma [facility] Calcium [Mass/volume ] in Serum or Plasma [facility] Calcium [Mass/volume ] in Serum or Plasma [facility] Calcium [Mass/volume ] in Serum or Plasma [facility] Carbon dioxide, tota l [Moles/volume] in Serum or Plasma [facility] Work Phone: Carbon dioxide, tota l [Moles/volume] in Serum or Plasma [facility] Carbon dioxide, tota l [Moles/volume] in Serum or Plasma [facility] Carbon dioxide, tota l [Moles/volume] in Serum or Plasma [facility] Carbon dioxide, tota l [Moles/volume] in Serum or Plasma [facility] Carbon dioxide, tota l [Moles/volume] in Serum or Plasma [facility] Chloride [Moles/volu me] in Serum or Plasma [facility] Work Phone: Chloride [Moles/volu me] in Serum or Plasma [facility] Chloride [Moles/volu me] in Serum or Plasma [facility] Chloride [Moles/volu me] in Serum or Plasma [facility] Chloride [Moles/volu me] in Serum or Plasma [facility] Chloride [Moles/volu me] in Serum or Plasma [facility] Creatinine [Moles/volume] in Serum or Plasma [facility] Work Phone: Creatinine [Moles/volume] in Serum or Plasma [facility] Creatinine [Moles/volume] in Serum or Plasma [facility] Creatinine [Moles/volume] in Serum or Plasma [facility] Creatinine [Moles/volume] in Serum or Plasma [facility] Creatinine [Moles/volume] in Serum or Plasma [facility] Electrocardiogram, 12-lead PRN ACS symptoms Electrocardiogram, 12-lead PRN ACS symptoms ECG Routine As needed until discontinued starting 03/01/2024 [facility] Service Area Work Phone: Comment on above: As needed until disc ontinued starting 03/01/2024 End: 03-01-2024 Extra Urine [facility] Extra Urine [facility] Lab Timed Once for 1 Occurrences starting 03/01/2024 until 03/01/2024 [facility] Work Phone: Comment on above: Once for 1 Occurrenc es starting 03/01/2024 until 03/01/2024 Glucose [Mass/volume ] in Serum or Plasma [facility] Work Phone: Glucose [Mass/volume ] in Serum or Plasma [facility] Glucose [Mass/volume ] in Serum or Plasma [facility] Glucose [Mass/volume ] in Serum or Plasma [facility] Glucose [Mass/volume ] in Serum or Plasma [facility] Glucose [Mass/volume ] in Serum or Plasma [facility] End: 03-04-2024 Glucose [Mass/volume] in Serum or Plasma POCT Glucose Point of Care Testing - Docked Device Routine 4 times daily before meals and at bedtime for 3 Days starting 03/01/2024 until 03/04/2024, 3 completed [facility] Work Phone: Comment on above: 4 times daily before meals and at bedtime for 3 Days starting 03/01/2024 until 03/04/2024, 3 completed Hematocrit [Volume Fraction] of Blood [facility] Hemoglobin [Mass/vol ume] in Blood [facility] Hemoglobin [Presence ] in Urine [facility] Leukocytes [#/volume ] in Blood [facility] Mean corpuscular hemoglobin concentration determination [facility] Mean corpuscular hemoglobin determination [facility] Measurement of keton es in urine using dipstick [facility] Measurement of renal function [facility] Work Phone: Measurement of renal function [facility] Measurement of renal function [facility] Measurement of renal function [facility] Measurement of renal function [facility] Measurement of renal function [facility] Microscopic urinalysis [facility] Neutrophil count [facility] Neutrophil percent differential count [facility] Patient Education [facility] Work Phone: Patient referral [facility] Work Phone: pH of Urine [facility] Platelets [#/volume] in Blood [facility] Potassium [Moles/vol ume] in Serum or Plasma [facility] Work Phone: Potassium [Moles/vol ume] in Serum or Plasma [facility] Potassium [Moles/vol ume] in Serum or Plasma [facility] Potassium [Moles/vol ume] in Serum or Plasma [facility] Potassium [Moles/vol ume] in Serum or Plasma [facility] Potassium [Moles/vol ume] in Serum or Plasma [facility] Red blood cell count [facility] Red cell distributio n width determination [facility] Sodium [Moles/volume ] in Serum or Plasma [facility] Work Phone: Sodium [Moles/volume ] in Serum or Plasma [facility] Sodium [Moles/volume ] in Serum or Plasma [facility] Sodium [Moles/volume ] in Serum or Plasma [facility] Sodium [Moles/volume ] in Serum or Plasma [facility] Sodium [Moles/volume ] in Serum or Plasma [facility] Specific gravity of Urine [facility] Urea nitrogen [Mass/volume] in Serum or Plasma [facility] Work Phone: Urea nitrogen [Mass/volume] in Serum or Plasma [facility] Urea nitrogen [Mass/volume] in Serum or Plasma [facility] Urea nitrogen [Mass/volume] in Serum or Plasma [facility] Urea nitrogen [Mass/volume] in Serum or Plasma [facility] Urea nitrogen [Mass/volume] in Serum or Plasma [facility] End: 03-01-2024 Urinalysis complete W Reflex Culture panel - Urine [facility] Service Area Work Phone: Comment on above: STAT (Lab) for 1 Occ urrences starting 03/01/2024 until 03/01/2024 Urinalysis, blood, qualitative [facility] Urine dipstick for glucose [facility] Urine dipstick for leukocyte esterase [facility] Urine dipstick for nitrite [facility] Urine dipstick for protein [facility] Urine examination [facility] Urine microscopy: epithelial cells [facility] Urine Microscopy: wh ite cells [facility] Urobilinogen [Presen ce] in Urine [facility] End: 12-11-2023 US Biliary ducts and Gallbladder [facility] Service Area Work Phone: Comment on above: Once for 1 Occurrenc es starting 12/11/2023 until 12/11/2023 End: 12-11-2023 US Kidney - bilateral and Urinary bladder [facility] Service Area Work Phone: Comment on above: Once for 1 Occurrenc es starting 12/11/2023 until 12/11/2023 Immunizations Immunization Date Immunization Notes Care Provider Juan Daniel nieves 02-10-2021 Covid (Pfizer) Dr. Sachin Kennedy Work Phone: [facility] 01-10-2021 Covid (Pfizer) Dr. Sachin Kennedy Work Phone: [facility] 08-10-2020 Pfizer-BioNTech COVI D-19 Vacc 30 MCG/0.3ML Intramuscular Suspension Valji D Munjapara Work Phone: [facility] 07-20-2020 Pfizer-BioNTech COVI D-19 Vacc 30 MCG/0.3ML Intramuscular Suspension Valji D Munjapara Work Phone: [facility] 05-22-2015 influenza, injectabl e, quadrivalent, preservative free Valji D Munjapara Work Phone: [facility] Work Phone: 05-22-2015 influenza virus vacc ine, unspecified formulation Dexter Daniel MD Work Phone: [facility] Work Phone: 03-08-2014 influenza, injectabl e, quadrivalent, preservative free Valji D Kamalajapara Work Phone: [facility] Work Phone: 03-30-2013 influenza, injectabl e, quadrivalent, contains preservative Dexter Daniel MD Work Phone: [facility] Work Phone: 03-30-2013 influenza, injectabl e, quadrivalent, preservative free Dr. Dafne Cornell Work Phone: [facility] 03-30-2013 influenza, seasonal, injectable Valji D Munjapara Work Phone: [facility] Work Phone: 05-01-2011 influenza virus vacc ine, unspecified formulation Dexter Daniel MD Work Phone: [facility] Work Phone: 02-27-2009 influenza virus vacc ine, unspecified formulation Dexter Daniel MD Work Phone: [facility] Work Phone: 02-27-2009 Meningococcal, MCV4, unspecified conjugate formulation(groups A, C, Y and W-135) Dexter Daniel MD Work Phone: [facility] Work Phone: 02-27-2009 pneumococcal polysaccharide vaccine, 23 valent Dexter Daniel MD Work Phone: [facility] Work Phone: 02-27-2009 tetanus toxoid, redu walker diphtheria toxoid, and acellular pertussis vaccine, adsorbed Dexter Daniel MD Work Phone: [facility] Work Phone: 03-05-2002 diphtheria, tetanus toxoids and pertussis vaccine Dexter Daniel MD Work Phone: [facility] Work Phone: 03-05-2002 measles, mumps and rubella virus vaccine Dexter Daniel MD Work Phone: [facility] Work Phone: 03-05-2002 poliovirus vaccine, inactivated Dexter Daniel MD Work Phone: [facility] Work Phone: 10-31-1997 diphtheria, tetanus toxoids and pertussis vaccine Dexter Daniel MD Work Phone: [facility] Work Phone: 10-31-1997 haemophilus influenz ae type b vaccine, HbOC conjugate Dexter Daniel MD Work Phone: [facility] Work Phone: 10-31-1997 measles, mumps and rubella virus vaccine eDxter Daniel MD Work Phone: [facility] Work Phone: 10-31-1997 poliovirus vaccine, inactivated Dexter Daniel MD Work Phone: [facility] Work Phone: 03-24-1997 hepatitis B vaccine, pediatric or pediatric/adolescent dosage Dexter Daniel MD Work Phone: [facility] Work Phone: 1996 diphtheria, tetanus toxoids and pertussis vaccine Dexter Daniel MD Work Phone: [facility] Work Phone: 1996 haemophilus influenz ae type b vaccine, HbOC conjugate Dexter Daniel MD Work Phone: [facility] Work Phone: 1996 diphtheria, tetanus toxoids and pertussis vaccine Dexter Daniel MD Work Phone: [facility] Work Phone: 1996 haemophilus influenz ae type b vaccine, HbOC conjugate Dexter Daniel MD Work Phone: [facility] Work Phone: 1996 poliovirus vaccine, inactivated Dexter Daniel MD Work Phone: [facility] Work Phone: 1996 diphtheria, tetanus toxoids and pertussis vaccine Dexter Daniel MD Work Phone: [facility] Work Phone: 1996 haemophilus influenz ae type b vaccine, HbOC conjugate Dexter Daniel MD Work Phone: [facility] Work Phone: 1996 hepatitis B vaccine, pediatric or pediatric/adolescent dosage Dexter Daniel MD Work Phone: [facility] Work Phone: 1996 poliovirus vaccine, inactivated Dexter Daniel MD Work Phone: [facility] Work Phone: 1996 hepatitis B vaccine, pediatric or pediatric/adolescent dosage Dexter Daniel MD Work Phone: [facility] Work Phone: Payers Date Payer Category Payer Self-pay [id number] Unknown 2009 Unknown [id number] 2009 Unknown [id number] 1996 Unknown [id number] 2.16.8 [id number] 1996 Unknown [id number] 2.16.8 [id number] 1996 Unknown [id number] 2.16.8 [id number] 1996 Unknown [id number] 2.16.8 [id number] 1996 Unknown [id number] 2.16.8 [id number] 1996 Unknown [id number] 2.16.8 [id number] 1996 Unknown [id number] 2.16.8 [id number] 1996 Unknown [id number] 2.16.8 [id number] Unknown [id number] 2.16.8 [id number] Unknown [id number] 2.16.8 [id number] Unknown [id number] 2.16.8 [id number] Unknown [id number] 2.16.8 [id number] Unknown [id number] 2.16.8 [id number] Unknown [id number] 2.16.8 [id number] Unknown [id number] 2.16.8 [id number] Social History Date Type Detail Facility Start: 10-22-2022 End: 12-08-2023 Never smoker Never smoker [facility] Work Phone: Start: 09-25-2021 End: 09-04-2023 Tobacco smoking status PRIS Unknown if ever smoked [facility] Start: 12-29-2014 None [facility] Start: 12-29-2014 With Family [facility] Start: 12-29-2014 Non-smoker [facility] Start: 1995 Sex Assigned At Male [facility] Start: 10-22-2022 End: 02-07-2025 Tobacco smoking status NHIS Never smoked tobacco [facility] Work Phone: Start: 10-22-2022 Tobacco use and exposure Smokeless tobacco non-user [facility] Work Phone: Start: 10-22-2022 End: 12-08-2023 Alcohol intake Ex-drinker (finding) [facility] Work Phone: Start: 10-22-2022 End: 12-08-2023 Tobacco use panel [facility] Work Phone: Start: 1995 Sex Assigned At Not on file U [facility] Work Phone: Start: 10-12-2022 End: 03-01-2024 Exposure to SARS-CoV-2 (event) Not sure [facility] Start: 12-15-2023 End: 03-02-2024 Alcoholic beverage intake Current drinker of alcohol (finding) [facility] Work Phone: How often to you hav e a drink containing alcohol? Monthly or less [facility] Work Phone: How many standard drinks containing alcohol do you have on a typical day? 1 or 2 [facility] Work Phone: How often do you hav e 6 or more drinks on 1 occasion? Monthly [facility] Work Phone: Medical Equipment Procedure Code Equipment Code Equipment Origin al Text Equipment Identifier Dates check sugars 3 t imes per day (on insulin pump) [id number] Start: 10-23-2018 End: 06-09-2023 Goals Date Patient Goal Desired Activity /State Functional Status Date Assessment Result Facility 03-23-2023 Functional status Ambulates;Up ad josh [facility] Work Phone: 07-16-2022 Functional status Ambulates [facility] Work Phone: 06-20-2022 Functional status Up ad josh [facility] Work Phone: 09-27-2021 Functional status Ambulates;Up ad josh [facility] Work Phone: Mental Status Date Assessment Result Facility 01-22-2025 Cognitive function Level Of Cons ciousness Awake;Alert;Restless [facility] Work Phone: 03-23-2023 Cognitive function Voice/Name [facility] Work Phone: 06-20-2022 Cognitive function Appropriate;Cooperativ e [facility] Work Phone: 01-29-2022 Cognitive function Level Of Cons ciousness Awake;Alert [facility] Work Phone: 09-27-2021 Cognitive function Voice/Name [facility] Work Phone: 09-25-2021 Cognitive function Level Of Cons ciousness Awake;Alert [facility] Work Phone: Clinical Notes 07-28-2020 to 02-07-2025 Note Date & Type Note Facility 02-07-2025 Discharge summary [facility] 02-07-2025 Discharge summary Note Date/Time February 07, 2025 10:34pm [facility] Medical Records Department [address] [place] [address] Emergency Department Summary 02/07/25 MR#: [id number] Acct: [id number] Name: JORGE HOLLIS Rep #:[id number] : [...] type I diabetic with an insulin pump. 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 Print Language: Bhutanese Disposition Disposition: Home, Self Care What to do if you have Problems For any increased pain, shortness of breath, bleeding, nausea or vomiting, chestpain, or any unexpected problems, contact your Primary Care Provider. Call [facility] ([phone]) or report to the closest Emergency Room. Call 911 if necessary. 02/07/252233 <Electronically signed by Lavell Patel MD> Cosigner Signature (if applicable): CC: Dr. Buddy Kang MD; Dr. Dexter Daniel MD ~ Signed [facility] Work Phone: 1(681) 509-134308-30-2025 Discharge summary [facility] Medical Records Department [address] [place] [address] Emergency Department Summary 01/22/25 MR#: [id number] Acct: [id number] Name: JORGE HOLLIS Rep #:[id number] : [...] teens. He presents with hypoglycemia and nausea. [facility] Medical History History of diabetes mellitus [...] count 7.3 with hemoglobin 14.5,hematocrit 41.6, platelet [id number]. Electrolyte panel is otherwise unremarkable except for carbon dioxide low at 14.8, sodium 144, potassium normal at 3.5, AST and ALT slightly elevated at 133 and 129 which I think is nonspecific. Lipase normal at 62 so I doubt pancreatitis. Blood glucose [id number]. Patient will be encouraged to continue regular [...] have more of a gastritis, he can picker / packer [id number] Pepcid or omeprazole. Return instructions to the [...] % (Auto) 59.2 Lymph % (Auto) 27.4 [place] % (Auto) 11.8 H Eos % (Auto) [...] (Auto) Neut % (Auto) Lymph % (Auto) [place] % (Auto) Eos % (Auto) Baso % [...] (Auto) Neut % (Auto) Lymph % (Auto) [place] % (Auto) Eos % (Auto) Baso % [...] (Auto) Neut % (Auto) Lymph % (Auto) [place] % (Auto) Eos % (Auto) Baso % [...] without contrast. 2. Multifocal sinusitis. Reading Location: [id number] Discharge Plan Triage Chief Complaint: Hypoglycemia Other [...] shakiness, new or worsening symptoms. Print Language: Bhutanese Disposition Disposition: Home, Self Care What to do if you have Problems For any increased pain, shortness of breath, bleeding, nausea or vomiting, chestpain, or any unexpected problems, contact your Primary Care Provider. Call [facility] ([phone]) or report tothe closest Emergency Room. Call 911 if necessary. 01/22/25 1841 Cosigner Signature (if applicable): CC: Dr. Dexter Daniel MD ~ Signed [facility]08-30-2025 Radiology Diagnostic study note [facility] Imaging Services [address] [place], [place] [id number] Brain/Head without Contrast MR#: [id number] Acct: [id number] Name: JORGE HOLLIS Rep #: [id number] : 1995 M 29 From: Ayan Lund MD PCP: Dr. Dexter Daniel MD Status: RE G ER Study:Brain/Head without Contrast Date of Exa m: 01/22/25 Exam# [id number] Ordering Dr: Ammon Nice MD PROCEDURE: BRAIN/HEAD [...] without contrast. 2. Multifocal sinusitis. Reading Location: [id number] CC: Dr. Ammon Nice MD; Dr. Dexter Daniel MD ~ Resident Medical Officer: Signed [facility] Work Phone: 1(244) 351-694208-30-2025 Discharge summary Author Ammon Nice [facility] Note Date/Time January 22, 2025 6: 41pm [facility] Medical Records Department [address] [place] [address] Emergency Department Summary 01/22/25 MR#: [id number] Acct: [id number] Name: BRIAN HOLILSTT DALY Rep #:[id number] : 1995 29 [...] who states that they went to the [employer] yesterday, and the patient was able to [...] teens. He presents with hypoglycemia and nausea. [facility] Medical History History of diabetes mellitus [...] 7.3 with hemoglobin 14.5, hematocrit 41.6, platelet [id number]. Electrolyte panel is otherwise unremarkable except for [...] have more of a gastritis, he can picker / packer [id number] Pepcid or omeprazole. Return instructions to the [...] % (Auto) 59.2 Lymph % (Auto) 27.4 [place] % (Auto) 11.8 H Eos % (Auto) [...] (Auto) Neut % (Auto) Lymph % (Auto) [place] % (Auto) Eos % (Auto) Baso % [...] (Auto) Neut % (Auto) Lymph % (Auto) [place] % (Auto) Eos % (Auto) Baso % [...] (Auto) Neut % (Auto) Lymph % (Auto) [place] % (Auto) Eos % (Auto) Baso % [...] without contrast. 2. Multifocal sinusitis. Reading Location: [facility] Discharge Plan Triage Chief Complaint: Hypoglycemia Other [...] shakiness, new or worsening symptoms. Print Language: Bhutanese Disposition Disposition: Home, Self Care What to do if you have Problems For any increased pain, shortness of breath, bleeding, nausea or vomiting, chestpain, or any unexpected problems, contact your Primary Care Provider. Call [facility] ([phone]) or report to the closest Emergency Room. Call 911 if necessary. 01/22/25 1841 <Electronically signed by Ammon Nice MD> Cosigner Signature (if applicable): CC: Dr. Dexter Daniel MD ~ Signed [facility] Work Phone: 1(299) 259-680710-08-2024 Nurse Note* Esther Pablo RN - 03/02/2024 [...] good handle on it. Tiera RN [facility]10-08-2024 Nurse Note* Esther Pablo RN - [...] it. Tiera RN [facility]: 1(655) 222-329110-08-2024 History of Present illness Narrative* Eric Kennedy, [...] Additional Notes (if applicable): Patient's pharmacy is [facility] in [place], [place] Eric Kennedy PharmD * Tavon Stevenson RRT - 03/01/2024 6:51 PM EDT VBG results reported to the physician: 7.34/22/49/11.[address] [facility] Work Phone: 1(885) 384-138010-07-2024 History and physical note* Dafne Ramos MD [...] lotrel, toprol, crestor Dafne Ramos MD [facility] Work Phone: 1(610) 116-248610-07-2024 History and physical note* Dafne Ramos MD [...] Dafne Ramos MD [facility] Work Phone: 1(540) 884-639207-22-2024 Evaluation + Plan note* Assessment & Plan [...] be reviewed by me. Uncontrolled BP has snf consequences including heart failure, myocardial infarction, accelerated atherosclerosis and kidney dysfunction. Therapy reviewed and explained. [facility] Work Phone: 1(257) 621-161607-22-2024 Miscellaneous Notes* Assessment & Plan Note - [...] be reviewed by me. Uncontrolled BP has rat exterminator consequences including heart failure, myocardial infarction, [...] less than 6 [facility] Work Phone: 1(645) 316-590407-22-2024 Evaluation + Plan note* Assessment & Plan Note - Dexter Daniel MD - 12/15/2023 10:23 AM EDTAssociated Problem(s): DM type 2 with diabetic mixed hyperlipidemia (Multi) Low-fat diet [facility] Work Phone: 1(103) 593-515507-22-2024 Evaluation + Plan note* Assessment & Plan Note - Dexter Daniel MD - 12/15/2023 10:23 AM EDTAssociated Problem(s): GERD without esophagitis Advised OTC Prilosec [facility] Work Phone: [phone]) [phone] Evaluation + Plan note* Assessment & Plan Note - Dexter Daniel MD - 12/15/2023 10:23 AM EDTAssociated Problem(s): Alcohol abuse Alcoholic liver problem advised B12 folic acid thiamine join AA group cut down or stop alcohol [facility] Work Phone: 1([phone]) 599-149107-22-2024 Evaluation + Plan note* Assessment & Plan Note - Dexter Daniel MD - 12/15/2023 10:23 AM EDTAssociated Problem(s): Gout Drink more water cut down protein and salt given allopurinol 300 mg a day recheck uric acid in 4 weeks keep uric acid less than 6 [facility] Work Phone: 1([phone]) 883-464907-22-2024 History of Present illness Narrative* Dexter Daniel [...] be reviewed by me. Uncontrolled BP has snf consequences including heart failure, myocardial infarction, accelerated [...] pm INDICATION: Signs/Symptoms:ckd. COMPARISON: None. ACCESSION NUMBER(S): [id number] ORDERING CLINICIAN: DEXTER DANIELS: Grayscale and color [...] by: Mukesh Paredes 12/12/2023 9:44 PM Dictation workstation:[id number] US biliary system Result Date: 12/12/2023 Interpreted By: Mukesh Paredes, STUDY: US BILIARY SYSTEM 12/11/2023 3:51 pm INDICATION: 28 y/o M with Signs/Symptoms:liver pain. COMPARISON: None. ACCESSION NUMBER(S): [id number] ORDERING CLINICIAN: DEXTER DANIEL TECHNIQUE: Routine ultrasound [...] Mukesh Paredes 12/12/2023 5:59 PM Dictation workstation: [id number] Charting was completed using voice recognition technology and may include unintended errors. documented in this [facility] Work Phone: 1(158) 441-985507-15-2024 Evaluation + Plan note* Assessment & Plan Note - Dexter Daniel MD - 12/08/2023 2:40 PM EDTAssociated Problem(s): Current mild episode of major depressive disorder without prior episode (CMS- HCC) Not suicidal PHQ less than 4 [facility] Work Phone: [phone]) [phone] Miscellaneous Notes* Assessment & Plan Note - [...] once a year [facility]: [phone]) 900-954007-15-2024 Evaluation + Plan note* Assessment & Plan Note - Dexter Daniel MD - 12/08/2023 2:39 PM EDTAssociated Problem(s): Alcohol abuse Get ultrasound of the gallbladder liver pancreas and kidney given B12 folic acid thiamine Pepcid and follow-up [facility] Work Phone: [phone]) [phone] Evaluation + Plan note* Assessment & Plan Note - Dexter Daniel MD - 12/08/2023 2:39 PM EDTAssociated Problem(s): Abdominal pain Father had colon cancer personal history of anemia with abdominal pain refer to GI Dr. Vidal for EGD colonoscopy [facility] Work Phone: [phone] Evaluation + Plan note* Assessment & Plan Note - Dexter Daniel MD - 12/08/2023 2:39 PM EDTAssociated Problem(s): Hypertension Advise get her Lotrel 5/40 a day plus Toprol 25 mg a day follow-up 2 weeks [facility] Work Phone: [phone] Evaluation + Plan note* Assessment & Plan Note - Dexter Daniel MD - 12/08/2023 2:38 PM EDTAssociated Problem(s): DM type 2 with diabetic mixed hyperlipidemia (Multi) CMP CPK lipid once a year [facility] Work Phone: [phone] History of Present illness Narrative* Dexter Daniel [...] of major depressive disorder without prior episode ([facility]) Not suicidal PHQ less than 4 Relevant [...] may include unintended errors. documented in this [facility] Work Phone: [phone]) 138-249004-11-2024 Discharge summary Author Lavell Patel [facility] September 04, 2023 10:53am Note Date/Time September 04, 2023 7:5 4am [facility] Medical Records Department [address] [place] [address] Emergency Department Summary 09/04/23 MR#: [id number] Acct: [id number] Name: JORGE HOLLIS Rep #:[id number] : [...] Currently he is at 158. Denies anydyspnea. [facility] Medical History Alcohol abuse Alcohol dependence Anxiety Depression Diabetes mellitus type 1 High cholesterol History of diabetes mellitus HTN (hypertension) Presence of insulin pump Vitamin D deficiency Home Medications Dexcom G6 Aerosol Line Operator (blood-glucose meter,continuous) #1 ea 11/14/21 [Rx Last [...] 43.0 L Lymph % (Auto) 45.7 H [place] % (Auto) 9.4 Eos % (Auto) 0.1 [...] pod q 72 hours (DME) Dexcom G6 Aerosol Line Operator Misc See Rx Instructions .Route Qty: 1 [...] your Primary Care Provider. Call [facility] ([phone]) or report to the closest Emergency Room. Call 911 if necessary. 09/04/23 1053 <Electronically signed by Lavell Patel MD> Cosigner Signature (if applicable): CC: DEXTER DANIEL MD ~ Signed [facility] Work Phone: [phone]) [phone] Evaluation + Plan note* Assessment & Plan [...] uncontrolled DM, pt was educated and explained. [facility] Work Phone: [phone]) 777-129201-15-2024 Evaluation + Plan note* Assessment & Plan [...] effects from SSRI and SNRIs but on rat exterminator, they are well tolerated. Please do [...] helpless or isolated.Detailed discussion was carried out. [facility] Work Phone: [phone]) [phone] Miscellaneous Notes* Assessment & Plan Note - [...] effects from SSRI and SNRIs but on rat exterminator, they are well tolerated. Please do [...] discussion was carried out. documented in this [facility] Work Phone: [phone] History of Present illness Narrative* Dexter Daniel [...] year Diabetes with complication advised to see federal aid coordinator sheet turner and dentist Anxiety depression refer patient to [...] effects from SSRI and SNRIs but on rat exterminator, they are well tolerated. Please do [...] April dependency program and psych Seen by federal aid coordinator advised to follow-up with the dietitians federal aid coordinator flume tender and sheet turner Negative for suicide Negative for jaundice Negative [...] 07/26/2021 263.5 (H) 0.0 - 30.0 ug/mg job forwarder Final Creatinine, Urine 07/26/2021 99.8 20.0 - [...] may include unintended errors. documented in this [facility] Work Phone: [phone]) 820-649610-28-2023 Progress note Author Colten Crystal [facility] March 22, 2023 10:10am Note Date/Time March 22, 2023 1 0:10am [facility] Medical Records Department [address] [place] [address] Progress Note - Hospitalist 03/22/23 1009 MR#: [id number] Acct: [id number] Name: JORGE HOLLIS Rep #:[id number] : 1995 27 From: Colten ovalle MD PCP: DEXTER DANIEL Status:ADM IN [facility] Subjective Subjective Well, no issues overnight. CIWA [...] DVT: Ambulation Charges/Coding Visit Charges Inpatient E&M: 99805 Subs Hosp L2 03/22/23 1010 <Electronically signed by Colten Crystal MD> Cosigner Signature (if applicable): CC: ~ Signed [facility] Work Phone: [phone]) 345-877310-27-2023 Progress note Author Colten Crystal [facility] March 21, 2023 9:33am Note Date/Time March 21, 2023 9 :33am [facility] Medical Records Department [address] [place] [address] Progress Note - Hospitalist 03/21/23929 MR#: [id number] Acct: [id number] Name: JORGE HOLLIS Rep #:[id number] : 1995 From: Colten ovalle MD PCP: DEXTER DANIEL Status:ADM IN Location: [facility]3 ZI558-8 Subjective Subjective Resting comfortably, had fairly significant [...] DVT: Ambulation Charges/Coding Visit Charges Inpatient E&M: 61168 Subs Hosp L2 03/21/23 0933 <Electronically signed by Colten Crystal MD> Cosigner Signature (if applicable): CC: ~ Signed [facility] Work Phone: [phone] 675-188810-26-2023 History and physical note Author William Bowers [facility] March 20, 2023 7:40am Note Date/Time March 20, 2023 4 :27am [facility] Medical Records Department [address] [facility] [place] [address] H&P Exam - Hospitalist 03/20/23 0424 MR#: [id number] Acct: [id number] Name: JORGE HOLLIS Rep #:[id number] : 1995 27 From: William Bowers MD PCP: DEXTER DANIEL Status:ADM IN Location: [facility] OR007-8 HPI - General General Date of Admission: [...] seizures was from alcohol withdrawal or not. COUNTS INCLUDE 234 BEDS AT [facility] Medical History Alcohol abuse Alcohol dependence [...] 09/25/21 [History Last Taken 09/23/21] Dexcom G6 Aerosol Line Operator (blood-glucose meter,continuous) #1 ea 11/14/21 [Rx Last [...] 45 minutes. Charges/Coding Visit Charges Inpatient E&M: 22346 Init Hosp L2 03/20/23 0740 <Electronically signed by William Bowers MD> Cosigner Signature (if applicable): CC: Dr. William Bowers MD; DEXTER DANIEL~ Signed [facility] Work Phone: [phone] 354-409410-26-2023 Discharge summary Author Dafne Cornell [facility] March 20, 2023 5:29am Note Date/Time March 20, 2023 3 :04am [facility] Medical Records Department [address] [place] [address] Emergency Department Summary 03/20/23 MR#: [id number] Acct: [id number] Name: JORGE HOLLIS Rep #:[id number] : 1995 27 From: Dafne Cornell MD PCP: DEXTER DANIEL Status:ADM IN Location: [facility] VZ295-9 HPI History of Present Illness Chief Complaint: [...] past that was attributed to alcohol withdrawal. [facility] Medical History Alcohol abuse Alcohol dependence [...] 09/25/21 [History Last Taken 09/23/21] Dexcom G6 Aerosol Line Operator (blood-glucose meter,continuous) #1 ea 11/14/21 [Rx Last [...] pod q 72 hours (DME) Dexcom G6 Aerosol Line Operator Misc See Rx Instructions .Route Qty: 1 [...] INSULIN PUMP- VARYING HOURLY BASAL RATE from 7341-1922 1.3 units 0899-5354 1.35 units 3273-4374 1.4 units Rx Instructions: PT HAS INSULIN [...] DANIEL [Other] Disposition Disposition: Acute Care Hospital [facility] What to do if you have Problems For any increased pain, shortness of breath, bleeding, nausea or vomiting, chest pain, or any unexpected problems, contact your Primary Care Provider. Call [facility] ([phone]) or report to the closest Emergency Room. Call 911 if necessary. 03/20/23528 <Electronically signed by Dafne Cornell MD> Cosigner Signature (if applicable): CC: DEXTER DANIEL ~ Signed [facility] Work Phone: [phone] Evaluation + Plan note* Assessment & Plan Note - Dexter Daniel MD - 10/22/2022 3:17 PM EDTAssociated Problem(s): Current mild episode of major depressive disorder without prior episode ([facility]) Depression is chronic and quite common and notorious mental health disorder and it is quite common and widespread, there are several therapeutics available for depression now a days. It is consideredas chemical imbalance disorder and with medications , it can be adjusted. There are side effects from SSRI and SNRIs but on snf, they are well tolerated. Please do not [...] or isolated.Detailed discussion was carried out. [facility] Work Phone: [phone] Miscellaneous Notes* Assessment & Plan Note - [...] effects from SSRI and SNRIs but on snf, they are well tolerated. Please do not [...] cervical cancer screening refer patient to dentist sheet turner and dietitian advised to get flu pneumonia [...] be reviewed by me. Uncontrolled BP has snf consequences including heart failure, myocardial infarction, accelerated [...] educated and explained. [facility]: [phone] Evaluation + Plan note* Assessment & Plan Note - Dexter Daniel MD - 10/22/2022 3:16 PM EDTAssociated Problem(s): Annual visit for general adult medical examination with abnormal findings 27-year-old male advised skin cancer cervical cancer screening refer patient to dentist sheet turner and dietitian advised to get flu pneumonia COVID-19 vaccine [facility] Work Phone: [phone] Evaluation + Plan note* Assessment & Plan [...] be reviewed by me. Uncontrolled BP has rat exterminator consequences including heart failure, myocardial infarction, accelerated atherosclerosis and kidney dysfunction. Therapy reviewed and explained. [facility] Work Phone: [phone] Evaluation + Plan note* Assessment & Plan [...] uncontrolled DM, pt was educated and explained. [facility] Work Phone: [phone] History of Present illness Narrative* Dexter Daniel [...] be reviewed by me. Uncontrolled BP has rat exterminator consequences including heart failure, myocardial infarction, accelerated atherosclerosis and kidney dysfunction. Therapy reviewed and explained. Relevant Medications ramipril (Altace) 10 mg capsule Digestive GERD without esophagitis Endocrine/Metabolic DM type 2 with diabetic mixed hyperlipidemia (CMS/HCC) Other Annual visit for general adult medical examination with abnormal findings - Primary 27-year-old male advised skin cancer cervical cancer screening refer patient to dentist sheet turner and dietitian advised to get flu pneumonia [...] effects from SSRI and SNRIs but on rat exterminator, they are well tolerated. Please do [...] 07/26/2021 263.5 (H) 0.0 - 30.0 ug/mg job forwarder Final Creatinine, Urine 07/26/2021 99.8 20.0 - [...] may include unintended errors. documented in this [facility] Work Phone: [phone] Hopper [facility] July 15, 2022 11:58pm Note Date/Time July 15, 2022 9:49pm [facility] Medical Records Department [address] [place] [address] Emergency Department Summary 07/15/22 MR#: [id number] Acct: [id number] Name: JORGE HOLLIS Rep #:[id number] : [...] 09/25/21 [History Last Taken 09/23/21] Dexcom G6 Aerosol Line Operator (blood-glucose meter,continuous) #1 ea 11/14/21 [Rx Last [...] 77.3 H Lymph % (Auto) 8.3 L [place] % (Auto) 12.8 H Eos % (Auto) [...] 30-74 minutes, Including time spent:,Discussing w/Patient &/or Family/Wheel Loader Operator, Discussing w/Consultants, ArrangingAdmission or Transfer, Performing Direct Patient Care at Bedside and - (35 min) Discharge Plan Dx/Rx/DC Orders Clinical Impression: Diabetic keto-acidosis, History of diabetes mellitus, High anion gap metabolic acidosis, Acute kidney injury Disposition Disposition: Acute Care Hospital [facility] What to do if you have Problems For any increased pain, shortness of breath, bleeding, nausea or vomiting, chestpain, or any unexpected problems, contact your Primary Care Provider. Call [facility] ([phone]) or report to the closest Emergency Room. Call 911 if necessary. 07/15/22 7932 <Electronically signed by eJd Hopper MD> Cosigner Signature (if applicable): CC: DEFINED NOT ~ Signed [facility] Work Phone: [phone]) 718-644502-21-2023 History and physical note Author Dr. Cedillo [facility] July 15, 2022 11:43pm Note Date/Time July 15, 2022 11:43pm [facility] Medical Records Department [address] [place] [address] H&P Exam - Hospitalist 07/15/22 8895 MR#: [id number] Acct: [id number] Name: JORGE HOLLIS Rep #:[id number] : 1995 27 From: Teresa Cedillo MD PCP: NOT,DEFINED Status:ADM IN Location: ICU CVICU20 4-1 HPI - General General Date of Admission: 07/15/22 Date of Service: 07/15/22 HPI Narrative JORGE HOLLIS, is a 27-year-old male with history of type 1 diabetes on an insulin pump, hypertension, alcohol abuse recently here for detox, who presentedto [facility] 07/15/2022 feeling as though he was [...] insulin pods, hepicked up long-acting insulin from [facility] on Friday and was using that [...] has not drank in over a week. COUNTS INCLUDE 234 BEDS AT THE [facility] Medical History Alcohol abuse Alcohol dependence [...] 09/25/21 [History Last Taken 09/23/21] Dexcom G6 Aerosol Line Operator (blood-glucose meter,continuous) #1 ea 11/14/21 [Rx Last [...] 77.3 H, Lymph % (Auto) 8.3 L, [place] % (Auto) 12.8 H, Eos % (Auto) [...] documentation, 60minutes Charges/Coding Visit Charges Inpatient E&M: 39292 Init Hosp L2 07/15/22 2343 <Electronically signed by Teresa Cedillo MD> Cosigner Signature (if applicable): CC: DEFINED NOT; Dr. Teresa Cedillo MD~ Signed [facility] Work Phone: [phone]) 346-631702-20-[address] Hopper [facility] July 15, 2022 11:58pm Note Date/Time July 15, 2022 9:49pm [facility] Medical Records Department [address] [place], [place] [address] [address] Emergency Department Summary 07/15/22 MR#: [id number] Acct: [id number] Name: JORGE HOLLIS Rep #:[id number] : [...] Prior similar symptoms: Yes [facility] Medical History Alcohol abuse Alcohol dependence [...] 09/25/21 [History Last Taken 09/23/21] Dexcom G6 Aerosol Line Operator (blood-glucose meter,continuous) #1 ea 11/14/21 [Rx Last [...] 77.3 H Lymph % (Auto) 8.3 L [place] % (Auto) 12.8 H Eos % (Auto) [...] 30-74 minutes, Including time spent:,Discussing w/Patient &/or Family/Wheel Loader Operator, Discussing w/Consultants, ArrangingAdmission or Transfer, Performing Direct Patient Care at Bedside and - (35 min) Discharge Plan Dx/Rx/DC Orders Clinical Impression: Diabetic keto-acidosis, History of diabetes mellitus, High anion gap metabolic acidosis, Acute kidney injury Disposition Disposition: Acute Care [facility] What to do if you have Problems For any increased pain, shortness of breath, bleeding, nausea or vomiting, chestpain, or any unexpected problems, contact your Primary Care Provider. Call [facility] ([phone]) or report to the closest Emergency Room. Call 911 if necessary. 07/15/22 7464 <Electronically signed by Jed Hopper MD> Cosigner Signature (if applicable): CC: DEFINED NOT ~ Signed [facility] Work Phone: [phone]) 441-154802-08-[address] Corrales [facility] July 03, 2022 10:46pm Note Date/Time July 03, 2022 5 :54pm [facility] Medical Records Department [address] [place] [address] Emergency Department Summary 07/03/22 MR#: [id number] Acct: [id number] Name: JORGE HOLLIS Rep #:[id number] : [...] does not have any trouble swallowing orbreathing. [facility] Medical History Alcohol abuse Alcohol dependence [...] 09/25/21 [History Last Taken 09/23/21] Dexcom G6 Aerosol Line Operator (blood-glucose meter,continuous) #1 ea 11/14/21 [Rx Last [...] pod q 72 hours (DME) Dexcom G6 Aerosol Line Operator Misc See Rx Instructions .Route Qty: 1 [...] INSULIN PUMP- VARYING HOURLY BASAL RATE from 4592-4137 1.3 units 0069-6002 1.35 units 0007-3128 1.4 units Rx Instructions: PT HAS INSULIN [...] your Primary Care Provider. Call [facility] ([phone]) or report to the closest Emergency Room. Call 911 if necessary. 07/03/222245 <Electronically signed by Dipesh Corrales DO> Cosigner Signature (if applicable): CC: Dexter Daniel MD ~ Signed [facility] Work Phone: [phone]) 917-748801-25-[address] Murphy [facility] June 19, 2022 2:27pm Note Date/Time June 19, 2022 2 :27pm [facility] Medical Records Department [address] [place] [address] Progress Note - Hospitalist 06/19/22 1424 MR#: [id number] Acct: [id number] Name: JORGE HOLLIS Rep #:[id number] : 1995 27 From: Osiris Murphy DO PCP: Care Physician,No Primary Status :ADM IN Location: [facility]3 UY630-5 Subjective Subjective Patient states he still feels [...] from 12-24 beers daily along with 4 Grandview's -Never been through detox previously -Continue phenobarbital taper -IV thiamine 200 mg x 3 days--> day 3 of 3 -Folic acid supplementation -As needed medication for withdrawal symptoms -180 evalulated-->f/u with [facility] for outpatient treatment services -Possible discharge tomorrow [...] insulin -Patient's current pump rate is 1.1 [id number]-[id number] as he had some further issues with hypoglycemia intermittently throughout the day yesterday -Will talk to his federal aid coordinator prior to discharge to see if we [...] -Full code Charges/Coding Visit Charges Inpatient E&M: 40958 Subs Hosp L2 06/19/22 1427 <Electronically signed by Osiris Murphy DO> Aminataer Signature (if applicable): CC: ~ Signed [facility] Work Phone: 1([phone]) 509-346001-24-[address] Murphy [facility] June 18, 2022 3:02pm Note Date/Time June 18, 2022 3 :02pm [facility] Medical Records Department [address] [place] [address] Progress Note - Hospitalist 06/18/22 1455 MR#: [id number] Acct: [id number] Name: JORGE HOLLIS Rep #:[id number] : 1995 27 From: Osiris Murphy DO PCP: Care Physician,No Primary Status :ADM IN Location: [facility] HT681-3 Subjective Subjective Patient states overall he is [...] from 12-24 beers daily along with 4 Grandview's -Never been through detox previously -Continue phenobarbital [...] -Full code Charges/Coding Visit Charges Inpatient E&M: 59691 Subs Hosp L2 06/18/22 1502 <Electronically signed by Osiris Murphy DO> Cosigner Signature (if applicable): CC: ~ Signed [facility] Work Phone: 1([phone]) [phone] History and physical note Author Dr. Murphy [facility] June 17, 2022 1:52pm Note Date/Time June 17, 2022 9 :52am [facility] Medical Records Department [address] [place] [address] H&P Exam - Hospitalist 06/17/22 0951 MR#: [id number] Acct: [id number] Name: JORGE HOLLIS Rep #:[id number] : 1995 27 From: Osiris Murphy DO PCP: Care Physician,No Primary Status :ADM IN Location: [facility] YY064-3 HPI - General General Date of Admission: 06/17/22 Date of Service: 06/17/22 Chief Complaint: EtOH Detox HPI Narrative JORGE HOLLIS, is a 27 M who presented to emergency department [facility] on 06/17/2021 requesting alcohol detox. Patient reports that he has been drinking anywhere from 12-24 beers and 4 Grandview's per day for a long time. The [...] given initial dose ofphenobarbital for alcohol withdrawal. COUNTS INCLUDE 234 BEDS AT THE [facility] Medical History Alcohol abuse Anxiety Depression [...] 09/25/21 [History Last Taken 09/23/21] Dexcom G6 Aerosol Line Operator (blood-glucose meter,continuous) #1 ea 11/14/21 [Rx Last [...] % (Auto) 52.8, Lymph % (Auto) 36.5, [place] % (Auto) 8.2, Eos % (Auto) 1.5, [...] from 12-24 beers daily along with 4 Grandview's -Never been through detox previously -Start phenobarbital [...] -Full code Charges/Coding Visit Charges Inpatient E&M: 67730 Init Hosp L3 06/17/22 1352 <Electronically signed by Osiris Murphy DO> Cosigner Signature (if applicable): CC: Dr. Osiris Murphy DO; No Primary Care Physician~ Signed [facility] Work Phone: 1(334) 574-819201-23-[address] Patel [facility] June 17, 2022 9:52am Note Date/Time June 17, 2022 8 :18am [facility] Medical Records Department [address] [place] [address] Emergency Department Summary 06/17/22 MR#: [id number] Acct: [id number] Name: TELMAJORGE DALY Rep #:[id number] : [...] issues other than the diabetes and hypertension. [facility] Medical History Depression Diabetes mellitus type [...] 09/25/21 [History Last Taken 09/23/21] Dexcom G6 Aerosol Line Operator (blood-glucose meter,continuous) #1 ea 11/14/21 [Rx Last [...] % (Auto) 52.8 Lymph % (Auto) 36.5 [place] % (Auto) 8.2 Eos % (Auto) 1.5 [...] (Auto) Neut % (Auto) Lymph % (Auto) [place] % (Auto) Eos % (Auto) Baso % [...] Alcohol withdrawal Disposition Disposition: Acute Care Hospital [facility] What to do if you have Problems For any increased pain, shortness of breath, bleeding, nausea or vomiting, chestpain, or any unexpected problems, contact your Primary Care Provider. Call [facility] ([phone]) or report to the closest Emergency Room. Call 911 if necessary. 06/17/22 0952 <Electronically signed by Lavell Patel MD> Cosigner Signature (if applicable): CC: No Primary Care Physician ~ Signed [facility] Work Phone: 1(930) 343-501001-23-[address] Patel [facility] June 17, 2022 9:52am Note Date/Time June 17, 2022 8 :18am [facility] Medical Records Department [address] [place] [address] Emergency Department Summary 06/17/22 MR#: [id number] Acct: [id number] Name: JORGE HOLLIS Rep #:[id number] : [...] issues other than the diabetes and hypertension. [facility] Medical History Depression Diabetes mellitus type [...] 09/25/21 [History Last Taken 09/23/21] Dexcom G6 Aerosol Line Operator (blood-glucose meter,continuous) #1 ea 11/14/21 [Rx Last [...] % (Auto) 52.8 Lymph % (Auto) 36.5 [place] % (Auto) 8.2 Eos % (Auto) 1.5 [...] (Auto) Neut % (Auto) Lymph % (Auto) [place] % (Auto) Eos % (Auto) Baso % [...] Alcohol withdrawal Disposition Disposition: Acute Care [facility] What to do if you have Problems For any increased pain, shortness of breath, bleeding, nausea or vomiting, chestpain, or any unexpected problems, contact your Primary Care Provider. Call [facility] ([phone]) or report to the closest Emergency Room. Call 911 if necessary. 06/17/22951 <Electronically signed by Lavell Patel MD> Cosigner Signature (if applicable): CC: No Primary Care Physician ~ Signed [facility] Work Phone: 1(277) 629-612703-05-2021 NotePatient Outreach ([facility]AM[facility]) JORGE HOLLIS ([id number]) 1995 M Date Time Provider Department 07/28/20 CARINE SAVAGE During your visit today, we recorded the following information about you: Allergies As of Date: 07/28/2020 (No Known Allergies) Date Reviewed: 09/07/2019 Reviewed by: Patrick Rankin - Fully Assessed Order(s):SARS-COVID VACCINE 1ST DOSE APPT [[id number]] Order #: [id number] FUTURE Prescriptions as of 07/28/2020 Sig: INSULIN [...] 09/07/2019 Encounter Status:Closed by FELISA GREENFIELD on 07/31/20[facility] Discharge summary Author Dr. Murphy [facility] June 20, 2022 1:23pm Note Date/Time June 20, 2022 1 :08pm [facility] Medical Records Department [address] [place], [place] [address] [address] Discharge Summary 06/20/22 1306 MR#: [id number] Acct: [id number] Name: JORGE HOLLIS Rep #:[id number] : 1995 27 From: Osiris Murphy DO PCP: Care Physician,No Primary Status :ADM IN Location: [facility] [id number] Providers Date of Admission: 06/17/22 Date of [...] PO DAILY blood pressure 09/25/21 Dexcom G6 Aerosol Line Operator (blood-glucose meter,continuous) #1 ea 11/14/21 Dexcom G6 [...] who presented to the emergency department at [facility] on 06/17/2019 2 in the morning for alcohol withdrawal. Patient reported that he is drinking for a long time. It sounds like its been 6 to 7 years. He indicated he drank anywhere from 12-24 beers daily as well as 4 [place]. He had never been through formal detox [...] hospitalization. I did have conversation with his federal aid coordinator prior to discharge and she suggested we continue on his basal rate at 1.1 and have him keep track of his sugars and call them on Friday morning and let them know what his sugars had been running since discharge. He was evaluated by 180 with the plan to follow-up at [facility] at the time of discharge. He [...] pod q 72 hours (DME) Dexcom G6 Aerosol Line Operator Misc See Rx Instructions .Route Qty: 1 [...] INSULIN PUMP- VARYING HOURLY BASAL RATE from 4141-1016 1.3 units 7808-4458 1.35 units 7194-7538 1.4 units Rx Instructions: PT HAS INSULIN [...] Care Physician,No Primary [Primary Care Provider] - [facility] Doctor,Out of [Non-Staff] - Disposition Disposition (needs filled in before D/C Order can be placed): Home, Self Care Charges/Coding Visit Charges Inpatient E&M: 44001 Disch Hosp >30min 06/20/22 1323 <Electronically signed by Osiris Murphy DO> Cosigner Signature (if applicable): CC: Dr. Osiris Murphy DO; No Primary Care Physician~ Signed [facility] Work Phone: Discharge summary Author Dr. Murphy [facility] July 16, 2022 11:19am Note Date/Time July 16, 2022 11:05am [facility] Medical Records Department [address] [place] [address] Discharge Summary 07/16/22 1105 MR#: [id number] Acct: [id number] Name: JORGE HOLLIS Rep #:[id number] : [...] PO DAILY blood pressure 09/25/21 Dexcom G6 Aerosol Line Operator (blood-glucose meter,continuous) #1 ea 11/14/21 Dexcom G6 [...] insulin pods. [facility] and was using [facility] [...] I discussed the case with his primary federal aid coordinator, Dr. Ontiveros, and she recommended that we [...] 77.3 H, Lymph % (Auto) 8.3 L, [place] % (Auto) 12.8 H, Eos % (Auto) [...] pod q 72 hours (DME) Dexcom G6 Aerosol Line Operator Misc See Rx Instructions .Route Qty: 1 [...] INSULIN PUMP- VARYING HOURLY BASAL RATE from 5849-0465 1.3 units 1241-8429 1.35 units 6386-0281 1.4 units Rx Instructions: PT HAS INSULIN [...] Self Care Charges/Coding Visit Charges Inpatient E&M: 80677 Disch Hosp >30min 07/16/22 1119 <Electronically signed by Osiris Murphy DO> Cosigner Signature (if applicable): CC: Dr. Osiris Murphy DO~ Signed [facility] Work Phone: Discharge summary Author Colten Crystal [facility] March 23, 2023 9:15am Note Date/Time March 23, 2023 9 :13am [facility] Medical Records Department [address] [place] [address] Instructions for Home/Discharge Instructions 03/23/23912 MR#: [id number] Acct: [id number] Name: JORGE HOLLIS Rep #:[id number] : [...] pod q 72 hours (DME) Dexcom G6 Aerosol Line Operator Misc See Rx Instructions .Route Qty: 1 [...] INSULIN PUMP- VARYING HOURLY BASAL RATE from 3153-2042 1.3 units 7723-1949 1.35 units 8435-4252 1.4 units Rx Instructions: PT HAS INSULIN [...] William Bowers MD; DEXTER DANIEL ~ Signed [facility] Work Phone: Discharge summary Author Colten Crystal [facility] March 23, 2023 9:22am Note Date/Time March 23, 2023 9 :20am [facility] Medical Records Department [address] [place] [address] Discharge Summary 03/23/23915 MR#: [id number] Acct: [id number] Name: JORGE HOLLIS Rep #:[id number] : 1995 27 From: Colten ovalle MD PCP: DEXTER DANIEL Status:ADM IN [facility] Prov[facility] Date of Admission: 03/20/23 Primary Care [...] PO DAILY blood pressure 09/25/21 Dexcom G6 Aerosol Line Operator (blood-glucose meter,continuous) #1 ea 11/14/21 Dexcom G6 [...] pod q 72 hours (DME) Dexcom G6 Aerosol Line Operator Misc See Rx Instructions .Route Qty: 1 [...] INSULIN PUMP- VARYING HOURLY BASAL RATE from 3569-7308 1.3 units 0032-9353 1.35 units 6182-3741 1.4 units Rx Instructions: PT HAS INSULIN [...] Self Care Charges/Coding Visit Charges Inpatient E&M: 48503 Disch Hosp >30min 03/23/23921 <Electronically signed by Colten Crystal MD> Cosigner Signature (if applicable): CC: Dr. Colten Crystal MD; DEXTER DANIEL~ Signed [facility] Work Phone: Evaluation note* Diagnosis Onset Date Resolution Status Acute hyperkalemia acute Acute renal failure acute Diabetic ketoacidosis associ ated with type 1 diabetes mellitus acute DKA (diabetic ketoacidoses) acute Leukocytosis acute Sinus tachycardia acute [facility] Work Phone: Evaluation note* Diagnosis Onset Date Resolution Status HTN (hypertension) chronic [facility] Work Phone: Evaluation noteNo assessment information available [facility] Work Phone: Evaluation note* Diagnosis Onset Date Resolution Status Diabetes mellitus type 1 acu te Presence of insulin pump acu te HTN (hypertension) chronic [facility] Work Phone: Evaluation note* Diagnosis Onset Date Resolution Status Diabetes mellitus type 1 acu te Presence of insulin pump acu te HTN (hypertension) chronic Alcohol dependence acute Alcohol withdrawal acute [facility] Work Phone: Evaluation note* Diagnosis Onset Date Resolution Status Diabetes mellitus type 1 acu te Presence of insulin pump acu te HTN (hypertension) chronic Alcohol dependence acute Alcohol withdrawal acute Alcoholic hepatitis acute Dehydration acute [facility] Work Phone: Evaluation note* Diagnosis Onset Date Resolution Status Diabetes mellitus type 1 acu te Presence of insulin pump acu te HTN (hypertension) chronic Alcohol withdrawal resolved Alcoholic hepatitis resolved Dehydration resolved [facility] Work Phone: Evaluation note* Diagnosis Onset Date Resolution Status Diabetes mellitus type 1 acu te Presence of insulin pump acu te HTN (hypertension) chronic Alcohol withdrawal resolved Alcoholic hepatitis resolved Dehydration resolved Acute kidney injury acute Diabetic keto-acidosis acute High anion gap metabolic acidosis acute History of diabetes mellitus acute [facility] Work Phone: Evaluation note* Diagnosis Annual visit for general adult medical examination with abnormal findings- Primary 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) Current mild episode of major depressive disorder without prior episode (CMS/HCC) Hypertension, unspecified type DM type 2 with diabetic mixed hyperlipidemia (CMS/HCC) GERD without esophagitis Esophageal reflux documented in this encounter [facility] Work Phone: Evaluation note* Diagnosis Onset Date Resolution Status Desire for detoxification ac shikha Diabetes mellitus type 1 acu te ETOH abuse acute Presence of insulin pump acu te [facility] Work Phone: Evaluation note* Diagnosis Alcohol [...] Esophageal reflux documented in this encounter [facility] Work Phone: Evaluation note* Diagnosis Onset Date Resolution Status Diabetes mellitus type 1 chr onic HTN (hypertension) chronic Presence of insulin pump chr onic [facility] Work Phone: Evaluation note* Diagnosis Annual [...] pancreatitis, unspecified complication status, unspecified pancreatitis type ([facility]) Hypertension, unspecified type documented in this encounter [facility] Work Phone: Evaluation note* Diagnosis Annual [...] Esophageal reflux documented in this encounter [facility] Work Phone: Evaluation note* Diagnosis Annual [...] of major depressive disorder without prior episode ([facility]) Hypertension, unspecified type DM type 2 with [...] abdominal location documented in this encounter [facility] Work Phone: Evaluation note* Diagnosis Annual visit for general adult medical examination with abnormal findings- Primary 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) Current mild episode of major depressive disorder without prior episode ([facility]) Hypertension, unspecified type DM type 2 with diabetic mixed hyperlipidemia (Multi) GERD without esophagitis Esophageal reflux Alcohol abuse- Primary Nondependent alcohol abuse, unspecified drinking behavior Fatigue due to depression 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) Current mild episode of major depressive disorder without prior episode ([facility]) Hypertension, unspecified type DM type 2 with [...] CKD stage documented in this encounter [facility] Work Phone: Evaluation note* Diagnosis Annual [...] of major depressive disorder without prior episode ([facility]) Hypertension, unspecified type DM type 2 with [...] unspecified type documented in this encounter [facility] Work Phone: History and physical note Author Dr. Cedillo [facility] July 15, 2022 11:43pm Note Date/Time July 15, 2022 11:43pm [facility] Medical Records Department [address] [place] [address] H&P Exam - Hospitalist 07/15/22 6064 MR#: [id number] Acct: [id number] Name: JORGE HOLLIS Rep #:[id number] : 1995 27 From: Teresa Cedillo MD PCP: NOT,DEFINED Status:ADM IN Location: ICU CVICU20 4-1 HPI - General General Date of Admission: 07/15/22 Date of Service: 07/15/22 HPI Narrative JORGE HOLLIS, is a 27-year-old male with history of type 1 diabetes on an insulin pump, hypertension, alcohol abuse recently here for detox, who presentedto [facility] 07/15/2022 feeling as though he was [...] insulin pods, [facility] and was using that [...] has not drank in over a week. COUNTS INCLUDE 234 BEDS AT [facility] Medical History Alcohol abuse Alcohol dependence [...] 09/25/21 [History Last Taken 09/23/21] Dexcom G6 Aerosol Line Operator (blood-glucose meter,continuous) #1 ea 11/14/21 [Rx Last [...] 77.3 H, Lymph % (Auto) 8.3 L, [place] % (Auto) 12.8 H, Eos % (Auto) [...] documentation, 60minutes Charges/Coding Visit Charges Inpatient E&M: 04091 Init Hosp L2 07/15/22 2343 <Electronically signed by Teresa Cedillo MD> Cosigner Signature (if applicable): CC: DEFINED NOT; Dr. Teresa Cedillo MD~ Signed [facility] Work Phone: History of Present illness [...] chart treatment plan discussI spent 15 minutes [id number] I spent 15 minutes [id number]. This patient discussing cardiovascular risk and behavior [...] aspirin refer patient to Dr. Gabriela Lyn federal aid coordinator and Dr. Chang sheet turner [facility] Work Phone: History of Present [...] test follow-up in 6 to 8 weeks [facility] Work Phone: History of Present illness Narrative* [...] Negative for jaundice * Negative for bleeding [facility] Work Phone: History of Present illness Narrative* 27-year-old patient of hypertension hyperlipidemia diabetes alcohol abuse multiple hospitalization because of alcohol withdrawal and detox program and a DKA * Seen by psych and federal aid coordinator * Because of underlying mental health problem and other problem not able to function well * Negative for suicide * Negative for drug abuse * Review hospital record discussed with the patient and family and [facility] Work Phone: Hospital Discharge instructions Additional Instructions Avoid use of mirtazapine, and have your medication changed secondary to its side effects. Perform nystatin oral swish and swallow 4 times a day for the next 7 days and follow-up with your primary care provider.[facility] Work Phone: Hospital Discharge instructions* Attachments The following attachments cannot be sent through Care Everywhere. * Diabetes and diet (Bhutanese) * Diabetic Ketoacidosis Discharge Instructions (Bhutanese) [facility] Hospital Discharge instructionsAdditional Instructions Medication as directed. Bolus yourself insulin as you have done in order to control your blood sugars. Make sure that you are eating appropriately. Return with intractable nausea and vomiting, increased shakiness, new or worsening symptoms.[facility] Work Phone: Hospital Discharge instructionsAdditional Instructions Can start prescription 02/08/2025 since you received the initial dose in the ED. Prednisone is just once daily.[facility] Work Phone: Reason for referral (narrative)* Consultation (Routine) - Authorized Specialty Diagnoses / Procedures Referred By Lurdes puentes Referred To Contact Primary Care Procedures Follow Up In Primary Care Dexter Daniel MD [address] [place] [address] Referral ID Status Reason Start Date Expiration Date V isits Requested Visits Authorized [id number] Authorized 10/22/2022 04/20/2023 1 1 * Consultation (Routine) - Authorized Specialty Diagnoses / Procedures Referred By Lurdes puentes Referred To Contact Primary Care Procedures Follow Up In Primary Care Dexter Daniel MD [address] [place] [id number] Referral ID Status Reason Start Date Expiration Date V isits Requested Visits Authorized [id number] Authorized 10/22/2022 04/20/2023 1 1 [facility] Work Phone: Reason for referral (narrative)No reason for referral information availableWTuscarawas [facility] Work Phone: Summary Purpose Family History [...] September 25, 2021 8: 30pm Power of Office Employee No September 25, 2021 8:30pm Advance Directive Response Recorded Date/ Time Advance Directives No December 29 015 2:43pm Living Will No January 29 022 10:12am Power of Office Employee No January 29, 2022 10:12am Advance Directive Response Recorded Date/ Time Advance Directives No December 29 015 1:43pm Living Will No May 03 1:29pm Power of Office Employee No May 03, 2022 1:29pm Advance Directive Response Recorded Date/ Time Advance Directives No December 29 015 1:43pm Living Will No June 01 2:26pm Power of Office Employee No June 01 023 2:26pm Advance Directive Response Recorded Date/ Time Advance Directives No December 29 015 1:43pm Living Will No June 17 7:58am Power of Office Employee No June 17, 2022 7:58am Advance Directive Response Recorded Date/ Time Advance Directives No December 29 015 1:43pm Living Will No June 17 11:46am Power of Office Employee No June 17, 2022 11:46am Advance Directive Response Recorded Date/ Time Advance Directives No December 29 1:43pm Living Will No July 03 5:50pm Power of Office Employee No July 03, 2022 5:50pm Advance Directive Response Recorded Date/ Time Advance Directives No December 29 015 1:43pm Living Will No July 15 023 10:09pm Power of Office Employee No July 15, 2022 10:09pm Advance Directive Response Recorded Date/ Time Advance Directives No December 29 015 1:43pm Living Will No July 16 12:37am Power of Office Employee No July 16, 2022 12:37am Advance Directive Response Recorded Date/ Time Advance Directives No December 29 2:43pm Living Will No March 20 10:28am Power of Office Employee No March 20, 2023 10:28am Advance Directive Response Recorded Date/ Time Advance Directives No December 29 2:43pm Living Will No September 04, 2023 8:06am Power of Office Employee No September 03 8:06am Date Activated Date Inactivated Comments 03/01/2024 9:28 PM Question Answer Comments Plan of Care: Code Status Discussion Completed Decision Maker: Patient Date Activated Date Inactivated Comments 03/01/2024 9:28 PM 03/01/2024 9:28 PM Question Answer Comments Plan of Care: Code Status Discussion Completed Decision Maker: Patient Advance Directive Response Recorded Date/ Time Do you have a Healthcare Power of Office Employee? No January 22, 2025 12:32pm Advance Directives No December 29 2:43pm Advance Directive Response Recorded Date/ Time Do you have a Healthcare Power of Office Employee? No January 22, 2025 12:32pm Do you have a Healthcare Power of Office Employee? No February 07, 2025 8:39pm Advance Directives No December 29 2:43pm Chief Complaint follow up on diabetessore throat, headaches, 2 weeks nowanxiety and depression* follow up * [facility] papers Chief Complaint and Reason for Visit [...] Procedures US biliary system Dexter Daniel MD [address] [place], [place] [id number] Referral ID Status Reason Start Date Expiration Date Visits Requested Visits Authorized [id number] Authorized Perform Procedure 06/09/2023 06/08/2024 1 1 Referral ID Status Reason Start Date Expiration Date Visits Requested Visits Authorized [id number] Authorized Perform Procedure 12/08/2023 12/07/2024 1 1 Specialty Diagnoses / Procedures Referred By Contac t Referred To Contact Radiology Diagnoses Chronic kidney disease, unspecified CKD stage Procedures US renal complete Dexter Daniel MD [address] [place], [place] [id number] Referral ID Status Reason Start Date Expiration Date Visits Requested Visits Authorized [id number] Authorized Perform Procedure 12/08/2023 12/07/2024 1 1 [...] (Multi) Alcohol abuse Procedures Echocardiogram Stress Test CA ECHO TTHRC R-T 2D W/WO M-MODE COMPLETE REST&ST Dexter Daniel MD [address] [place], [place] [id number] Referral ID Status Reason Start Date Expiration Date Visits Requested Visits Authorized [id number] Pending Review Perform Procedure 12/08/2023 12/07/2024 1 [...] abuse Procedures Colonoscopy Screening; Average Risk Patient CA COLONOSCOPY FLX DX W/COLLJ SPEC WHEN PFRMD CA COLON CA SCRN NOT HI RSK IND CA COLORECTAL SCRN; HI RISK IND CA COLONOSCOPY W/BIOPSY SINGLE/MULTIPLE CA COLSC FLX W/RMVL OF TUMOR POLYP LESION SNARE TQ CA COLSC FLX W/REMOVAL LESION BY HOT BX FORCEPS Dexter Daniel MD [address] [place] [address] Referral ID Status Reason Start Date Expiration Date V isits Requested Visits Authorized [id number] Pending Review 12/08/2023 12/07/2024 1 1 Additional Source Comments (unrecognized sect ion and content) No Status Records FoundNo Status Records FoundNo Status Records FoundNo Status Records FoundNo Status Records FoundNo Status Records FoundNo Status Records FoundNo Status Records FoundNo Status Records Found INFORMATION SOURCE (unrecogn ized section and content) DATE CREATED AUTHOR 11/13/2017 [facility] DATE CREATED AUTHOR AUTHOR'S ORGANIZ ATION 03/09/2018 [facility] DATE CREATED AUTHOR AUTHOR'S ORGANIZ ATION 07/13/2021 [facility] DATE CREATED AUTHOR AUTHOR'S ORGANIZ ATION 07/23/2022 [facility] DATE CREATED AUTHOR AUTHOR'S ORGANIZ ATION 12/17/2023 [facility] DATE CREATED AUTHOR AUTHOR'S ORGANIZ ATION 03/03/2024 [facility] DATE CREATED AUTHOR AUTHOR'S ORGANIZ ATION 03/05/2024 [facility] DATE CREATED AUTHOR AUTHOR'S ORGANIZ ATION 03/18/2024 [facility] DATE CREATED AUTHOR AUTHOR'S ORGANIZ ATION 03/22/2025 [facility] y [facility] Goals (unrecognized section and content) Goals may [...] MD Admit Provider, Attending Provid er Active Sampler Tester Relationship Specialty Start Date End Date Dexter Daniel MD [address] [facility] [address] [place] [address] PCP - General 07/10/20 Team Status: Active [...] Dr. Colten Crystal MD Attending Provider Active Sampler Tester Relationship Specialty Start Date End Date Dexter Daniel MD [address] [facility] [place] [address] PCP - MMO ACO PCP 07/24/22 Dexter Daniel MD [address] [place] [place] [address] PCP - General Internal Medicine 06/04/23 Team Status: Inactive Member Role Status Dates Dr. Lavell Patel MD Emergency Provider Active FREDY RENTERIA MD Primary Care Provider Active Sampler Tester Relationship Specialty Start Date End Date Dexter Daniel MD [address] [facility] [place] [address] PCP - General Internal Medicine 06/04/23 Sampler Tester Relationship Specialty Start Date End Date Dexter Daniel MD [address] [facility] [place] [place] [address] PCP - General Internal Medicine 06/04/23 Sampler Tester Relationship Specialty Start Date End Date Dexter Daniel MD [address] [facility] [place] [place] [address] PCP - General Internal Medicine 06/04/23 Sampler Tester Relationship Specialty Start Date End Date Dexter Daniel MD [address] [facility] [place] [address] PCP - General Internal Medicine 06/04/23 Team [...] pancreatitis, unspecified complication status, unspecified pancreatitis type ([facility]) Procedures Dafne Bedoya MD [address] [place] [address] [facility] [address] [place] [address] Referral ID Status Reason Start Date Expiration Date Visits Re quested Visits Authorized [id number] 1 1 Reason Comments Annual Exam GI Problem Vomiting, pain, week ly occurrence. Fatigue Specialty Diagnoses / Procedures Referred By Lurdes puentes Referred To Contact Radiology Diagnoses Abdominal pain, unspecified abdominal location Procedures US biliary system Dexter Daniel MD [address] [place] [id number] Referral ID Status Reason Start Date Expiration Date Visits Requested Visits Authorized [id number] Authorized Perform Procedure 12/08/2023 12/07/2024 1 1 Specialty Diagnoses / Procedures Referred By Lurdes puentes Referred To Contact Radiology Diagnoses Chronic kidney disease, unspecified CKD stage Procedures US renal complete Dexter Daniel MD [address] [place] [id number] Referral ID Status Reason Start Date Expiration Date Visits Requested Visits Authorized [id number] Authorized Perform Procedure 12/08/2023 12/07/2024 1 1 [...] acting SQ insulin. , Protocol Document: <a [email or web address]>, Other Initial Dose: [...] BE BASED ON THE PRIMARY CLINICAL RECORDS. [facility]. provides no warranty or guarantee of the accuracy or completeness of information in this document.
[2025-05-10] MEDS: KCL 20MEQ in 0.45%NS 20 MEQ/1,000 ML IV.SOLN. 250 MEQ IV (23:42)
--- NOTE | 2025-05-10 23:55 | PCM.HP.STD ---
HPI - General General Date of Admission: 05/10/25 HPI Narrative JORGE HOLLIS, is a 29 M who presents to the hospital with abdominal pain. He states that he has increased drinking since March when his father from colon cancer and recently had drank quite a bit but had felt fine over the weekend and then this morning woke up and started having severe abdominal pain. He presented to the hospital was found to be in DKA with elevated ketones and a beta hydroxybutyric acid of 7.9 as well as pancreatitis with signs of peripancreatic inflammation and a lipase of 1323. There is also some concern for possible colitis in the right lower quadrant though he is not complaining of any pain in that area on exam and denies any diarrhea. He states that he has not been on his insulin pump since last evening because of the binge drinking and forgetting to put it on. He received 2 L of fluid in the emergency room as well as started on insulin drip. Because of his colitis and his leukocytosis he was given a dose of Zosyn in the emergency room, he does not have sepsis. [facility] Medical History (Updated 05/11/25 @ 01:[address] Colten Crystal MD) Pancreatitis GERD (gastroesophageal reflux disease) Seizures History of diabetes mellitus Anxiety Alcohol abuse Alcohol dependence Depression Presence of insulin pump Diabetes mellitus type 1 High cholesterol Vitamin D deficiency HTN (hypertension) Home Medications ?Medication ?Instructions ?Recorded ?Last Taken ?Type amlodipine 5 mg-benazepril 10 mg 1 cap PO QDAY 08/15/23 05/06/25 History capsule blood pressure monitor (Blood #1 ea 06/15/24 Unknown Rx Pressure Kit) blood-glucose sensor (Dexcom G7 #9 ea 10/22/24 Unknown Rx Sensor device) insulin pump cart,auto,BT,G6/7 #30 ea 12/29/24 Unknown Rx (Omnipod 5 G6-G7 Pods (Gen 5) subcutaneous cartridge) insulin lispro 100 unit/mL 100 unit subcut .COMPLEX 01/22/25 05/06/25 History subcutaneous solution (Humalog U-100 Insulin) ondansetron 4 mg disintegrating 4 mg PO Q8H PRN PRN Nausea #15 tabs 01/22/25 Unknown Rx tablet Allergy/AdvReac Type Severity Reaction Status Date / Time No Known Allergies Allergy Verified 05/10/25 18:54 Family History Mother Hypertension Surgical History No history of previous surgery Social History household members: none housing: apartment Smoking Status: Never smoker alcohol intake: current alcohol intake frequency: a few times a week Alcohol type: beer and hard liquor substance use type: does not use ROS Constitutional Constitutional: Denies chills, fatigue, fever(s) or malaise Eyes Eyes: Denies blurry vision ENT HEENT: Denies headache(s) or nasal discharge Cardiovascular Cardiovascular: Denies chest pain, dyspnea on exertion or syncope Respiratory/Chest Respiratory/Chest: Denies cough, shortness of breath at rest or shortness of breath with exertion Gastrointestinal Gastrointestinal: Reports abdominal pain, nausea and vomiting; Denies constipation or diarrhea Genitourinary Genitourinary: Denies dysuria Neurologic Neurologic: Denies focal weakness, numbness or tremor(s) Psychiatric Psychiatric: Denies anxiety or depression Vital Signs Vital Signs Vital Signs: 05/10/25 18:53 05/10/25 18:56 05/10/25 19:25 Temperature 99.6 F H 99.6 F H Temperature Source Oral Oral Pulse Rate 151 H 135 H 115 H Respiratory Rate 30 H 29 H 20 H Respiratory Effort Respiratory Pattern Blood Pressure 159/120 H 162/114 H Blood Pressure Mean 133 130 Pulse Ox 100 100 100 Oxygen Delivery Method Room Air Room Air 05/10/25 19:30 05/10/25 19:35 05/10/25 19:45 Temperature Temperature Source Pulse Rate 119 H Respiratory Rate 21 H 17 Respiratory Effort Normal Respiratory Pattern Normal Blood Pressure 159/109 H 186/104 H Blood Pressure Mean 122 125 Pulse Ox 99 99 Oxygen Delivery Method 05/10/25 19:56 05/10/25 20:00 05/10/25 20:00 Temperature 99.1 F 99.1 F Temperature Source Oral Oral Pulse Rate 111 H 109 H 111 H Respiratory Rate 20 H 21 H 25 H Respiratory Effort Respiratory Pattern Blood Pressure 186/104 H 147/121 H 147/121 H Blood Pressure Mean 131 129 130 Pulse Ox 100 99 99 Oxygen Delivery Method Room Air Room Air 05/10/25 20:15 05/10/25 20:30 05/10/25 20:45 Temperature Temperature Source Pulse Rate 108 H 108 H Respiratory Rate 17 19 H Respiratory Effort Respiratory Pattern Blood Pressure 153/97 H 154/94 H 150/92 H Blood Pressure Mean 112 110 109 Pulse Ox 100 100 Oxygen Delivery Method 05/10/25 21:00 05/10/25 21:00 05/10/25 21:15 Temperature Temperature Source Pulse Rate 112 H Respiratory Rate 17 Respiratory Effort Respiratory Pattern Blood Pressure 141/90 H 141/90 H 146/75 H Blood Pressure Mean 104 104 95 Pulse Ox 100 Oxygen Delivery Method 05/10/25 21:15 05/10/25 21:30 05/10/25 21:40 Temperature 102.6 F H Temperature Source Oral Pulse Rate 120 H 118 H Respiratory Rate 12 16 Respiratory Effort Respiratory Pattern Blood Pressure 146/75 H 157/95 H 157/95 H Blood Pressure Mean 95 111 115 Pulse Ox 99 98 Oxygen Delivery Method Room Air 05/10/25 22:00 05/10/25 22:01 Temperature 102.6 F H Temperature Source Pulse Rate 115 H 111 H Respiratory Rate 19 H 24 H Respiratory Effort Respiratory Pattern Blood Pressure 150/91 H 150/91 H Blood Pressure Mean 106 110 Pulse Ox 98 99 Oxygen Delivery Method Weight Weight: 189 lb 9.561 oz Body Mass Index (BMI) 25.0 Physical Exam Narrative General: Alert, Oriented x3, Cooperative, No apparent distress, restless HEENT: Atraumatic, PERRLA, EOMI, Normocephalic Oral: Moist Mucosa Neck: Supple, No JVD Lungs: Diminished, Normal air movement, No rhonchi, No wheeze, No rales Cardiovascular: Tachycardic, Regular Rhythm, Normal S1, Normal S2, No murmurs Abdomen: Soft, epigastric TTP, Non-Distended, No Hepato-splenomegaly Extremities: No edema, Capillary Refill Less than 3 Seconds Skin: No rashes, No breakdown Musculoskeletal: No Tenderness to Palpation of Joints or Extremities Neurological: No focal neurological deficits, moves all extremities Psych/Mental Status: Normal Affect, Appropriate Results Lab / Micro Data 05/10/25 19:20 05/10/25 22:00 Labs: Laboratory Results - last 24 hr 05/10/25 19:15: POC Glucose 293 H 05/10/25 19:20: WBC 16.8 H, RBC 4.55 L, Hgb 14.4, Hct 43.0, MCV 94.5 H, MCH 31.6, MCHC 33.5, RDW Std Deviation 46.2 H, RDW Coeff of Last 13.3, Plt Count 169, MPV 10.6, Immature Gran % (Auto) 0.500, Neut % (Auto) 87.3 H, Lymph % (Auto) 2.1 L, [place] % (Auto) 9.7, Eos % (Auto) 0.0, Baso % (Auto) 0.4, Absolute Neuts (auto) 14.6 H, Absolute Lymphs (auto) 0.36 L, Nucleated RBC % 0, Differential Comment SCANNED, Sodium 142, Potassium 4.8, Chloride 95 L, Carbon Dioxide 8.7 L*, Anion Gap 39 H, BUN 17, Creatinine 1.34 H, Estim Creat Clear Calc 92.75, Est GFR (MDRD) Non-Af 74, BUN/Creatinine Ratio 12.5, Glucose 335 H, Calcium 9.7, Magnesium 1.7, Total Bilirubin 0.79, AST 97 H, ALT 103 H, Alkaline Phosphatase 96, Troponin T High Sens 14, Total Protein 7.4, Albumin 4.6, Globulin 2.8, Albumin/Globulin Ratio 1.6, Lipase 1323 H 05/10/25 20:00: Ethyl Alcohol < 10.1 05/10/25 21:27: POC Glucose 288 H 05/10/25 21:40: Troponin T Hi Sens 2 Hr 16, b-Hydroxybutyric mmol/L 7.9 H 05/10/25 22:00: Sodium 140, Potassium 4.7, Chloride 99, Carbon Dioxide 12.9 L, Anion Gap 28 H, Phosphorus 1.1 L*, Magnesium 1.7, Urine Color Yellow, Urine Clarity Clear, Urine pH 6.0, Ur Specific [place] 1.020, Urine Protein 30 H, Urine Glucose (UA) 1000 H, Urine Ketones 150 A*, Urine Occult Blood Negative, Urine Nitrite Negative, Urine Bilirubin Negative, Urine Urobilinogen Normal, Ur Leukocyte Esterase Negative, Urine RBC 0 SEEN, Urine WBC 0 SEEN, Ur Squamous Epith Cells 0 SEEN, Urine Bacteria 0 SEEN, Urine Mucus 0 SEEN 05/10/25 22:33: POC Glucose 222 H Micro: Microbiology 05/10/25 21:55 Mucosa - Nose SARS-CoV-2, Influenza & RSV (PCR) - Final ABG Data ABG results: ABG 05/10/25 20:11 Specimen Type BRITTNY Sample Site Not entered VBG pH 7.36 VBG pO2 47 H VBG HCO3 11 L VBG Total CO2 12 L VBG O2 Sat (Calc) 82 H VBG Base Excess -15 L POC Mix VBG pCO2 Pt Tmp 19.7 L O2 Delivery Device Room Air Imaging Radiology Impression Abdomen/Pelvis CT 05/10/25 19:48 IMPRESSION: 1. Findings consistent with acute pancreatitis. No signs of pancreatic necrosis or pseudocyst. 2. Hepatomegaly with diffuse hepatic steatosis. 3. Mildly thickened right colon, query acute colitis. Reading Location: [id number] Chest X-Ray 05/10/25 21:20 IMPRESSION: NO ACUTE FINDINGS. Reading [facility] Assessment & Plan Assessment/Plan (1) ETOH abuse: (2) Diabetic ketoacidosis associated with type 1 diabetes mellitus: (3) Pancreatitis: PLAN: Plan 1. DKA in the setting of type 1 diabetes with pancreatitis and potential alcohol withdrawal ? Unclear as to what initiated which disease process, consistent alcohol consumption for the last 2 months is obviously leading to the alcohol withdrawal and the pancreatitis however it is unclear if the alcohol is causing the DKA or if the inflammatory reaction from the pancreatitis has precipitated DKA since he was not wearing his insulin pump overnight ? Continue with DKA protocol ? Continue with n.p.o. status pending his abdominal pain and resolution ? Continue with aggressive fluid hydration ? 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 Reactive leukocytosis ? He did have a little bit of a fever today and was given a dose of Zosyn, CT scan of his abdomen pelvis does indicate a possible colitis however he is not symptomatic in that regard ? Will recheck white blood cell count in the morning ? He is currently not septic therefore we will hold off antibiotics at this time 3. Essential HTN ? Will hold off on his home blood pressure medications with the benazepril and amlodipine ? Can restart if necessary once he is taking p.o. DVT: Lovenox Charges/Coding Visit Charges Inpatient E&M: 65357 Init Hosp L3
[2025-05-11] VITALS (21 sets, daily range): BP systolic 133–158; BP diastolic 81–118; PULSE 82–107; RESP 10–23; TEMP 36.9–37.1; O2SAT 96–100; BMI 25.1
[2025-05-11 00:48] LABS: Troponin T High Sens 4 HR 17 ng/L (<=22)
[2025-05-11 02:19] LABS: Anion Gap 16 (5-15); Carbon Dioxide 20.4 mmol/L (21.0-32.0); Chloride 104 mmol/L (98-108); Magnesium 1.7 mg/dL (1.5-2.2); Potassium 4.3 mmol/L (3.3-5.1)
[2025-05-11] MEDS: KCL 20MEQ in 0.45%NS 20 MEQ/1,000 ML IV.SOLN. 250 MEQ IV (04:47)
[2025-05-11] MEDS: Potassium Chloride 10mEq/100mL 10 MEQ/100 ML IV.SOLN. 100 MEQ IV BOLUS ×5 (06:20→13:30)
[2025-05-11 06:22] LABS: Anion Gap 10 (5-15); Carbon Dioxide 22.8 mmol/L (21.0-32.0); Chloride 105 mmol/L (98-108); Magnesium 1.8 mg/dL (1.5-2.2); Potassium 3.9 mmol/L (3.3-5.1)
[2025-05-11] MEDS: Dext 5%-0.45% NS 1,000 ML 150 ML IV (06:22)
[2025-05-11 07:18] LABS: Anion Gap 12 (5-15); BUN 18 mg/dL (4-19); BUN/Creat Ratio 16.3 RATIO (10-20); Calcium,Total 8.1 mg/dL (7.6-11.0); Carbon Dioxide 21.5 mmol/L (21.0-32.0); Chloride 105 mmol/L (98-108); Estimated Creatinine Clearance 115.08 ml/min (50-250); Glucose 127 mg/dL (70-99); Potassium 4.0 mmol/L (3.3-5.1)
[2025-05-11 10:34] LABS: Magnesium 1.8 mg/dL (1.5-2.2)
[2025-05-11 10:35] LABS: Anion Gap 16 (5-15); Carbon Dioxide 18.0 mmol/L (21.0-32.0); Chloride 105 mmol/L (98-108); Potassium 4.1 mmol/L (3.3-5.1)
--- NOTE | 2025-05-11 10:42 | CASEMGMT ---
Social Work- SW updated RAMP coordinator that pt does not want RAMP at this time. AZAR Roth
[2025-05-11 10:48] LABS: Hematocrit 36.8 % (40-54); Hemoglobin 12.8 g/dL (13.0-16.5); Immature Granulocytes Count 0.030 X10^3/uL (0.0-0.0); Mean Corp Hgb Conc 34.8 g/dL (32-36); Mean Corpuscular Volume 92.9 fL (80-94); Mean Platelet Vol. 9.9 fl (6.2-12.0); NRBC Flagged by Analyzer 0 % (0-5); POSITIVE DIFFERENTIAL YES; Platelet Count 115 K/mm3 (150-450); RBC Distribution Width CV 12.9 % (11.6-14.6); RBC Distribution Width SD 43.8 fl (35.1-43.9); Red Blood Count 3.96 M/mm3 (4.6-6.2); White Blood Count 8.9 K/mm3 (4.4-11.0)
--- NOTE | 2025-05-11 11:21 | CASEMGMT ---
MARIOLA MCDONALD Assessment Face to Face with patient for initial transition planning/care coordination assessment. MARIOLA MCDONALD introduced self and role at [facility], pt voices understanding. Pt is A&Ox4 and is resting comfortably in bed and is calm. Pt's mother at the bedside. Care providers, pharmacy, and demographics verified. Admitting dx: Pancreatitis, DKA LACE Strata: 2 PCP: Jarocho Rice Specialists: [facility] Preferred Pharmacy: [facility] Insurance: MMO Prescription Benefit: Yes LNOK: [place] (Mother) Living Arrangements: Pt lives with his mom in a single story home with 3 steps to enter ADLs/IADLs: Indep. 6-Click score is 24 Transportation: Self, mom DME: Pt states that he has a functioning BGM with sufficient testing supplies including lancets, test strips, and EtOH swabs. Pt states that he gets his insulin through a working pump and denies any issues or concerns. HHC/SNF: Denies hx of or needs Pt?s goal: Home Plan: Home with pt's mother once medically ready, no additional needs identified. Pt states that he has been drinking a lot since his father . Pt states that the amount fluctuates. Pt was offered SW follow up as well as the RAMP. Pt declines both. At this time, the pt states that he plans to return home with his mother once he is medically ready and denies further questions, concerns, or needs. Penelope Cuevas RN, CM
[2025-05-11 12:10] LABS: Anion Gap 12 (5-15); BUN 15 mg/dL (4-19); BUN/Creat Ratio 16.6 RATIO (10-20); Calcium,Total 7.9 mg/dL (7.6-11.0); Carbon Dioxide 20.7 mmol/L (21.0-32.0); Chloride 103 mmol/L (98-108); Estimated Creatinine Clearance 135.10 ml/min (50-250); Glucose 168 mg/dL (70-99); Potassium 3.9 mmol/L (3.3-5.1)
--- NOTE | 2025-05-11 12:38 | PN_ITS ---
Subjective Subjective Patient seen and examined. He was admitted with complaint of DKA and acute pancreatitis. He is feeling much better today. He denies any abdominal pain. He had an uneventful night and review of systems otherwise negative. Anion gap has closed x 2. As at 10am, the anion gap was 16, and increase from the previously closed anion gap. THis was thought to be a spurious result, especially as potassium was also hemolysed. Stat repeat BMP was then drawn which showed that anion gap was 12 with bicarb of 20.7. Objective Data Objective Data Vital Signs: Vital Signs Temp Pulse Resp BP Pulse Ox O2 Del Method 98.7 F 92 13 142/112 H 99 Room Air 05/11/25 05:00 05/11/25 11:00 05/11/25 11:00 05/11/25 11:00 05/11/25 11:00 05/11/25 11:00 Oxygen Delivery Method Room Air Weight: 189 lb 9.561 oz Body Mass Index (BMI) 25.1 Intake & Output: Intake and Output for Last 24 Hours 05/09/25 05/10/25 05/11/25 23:59 23:59 23:59 Intake Total 2158.04 / 2158.04 2600.48 / 2600.48 Balance 2158.04 / 2158.04 2600.48 / 2600.48 Lab / Micro Data 05/11/25 10:36 05/11/25 10:52 Labs: Laboratory Results - last 24 hr 05/10/25 19:15: POC Glucose 293 H 05/10/25 19:20: WBC 16.8 H, RBC 4.55 L, Hgb 14.4, Hct 43.0, MCV 94.5 H, MCH 31.6, MCHC 33.5, RDW Std Deviation 46.2 H, RDW Coeff of Last 13.3, Plt Count 169, MPV 10.6, Immature Gran % (Auto) 0.500, Neut % (Auto) 87.3 H, Lymph % (Auto) 2.1 L, [place] % (Auto) 9.7, Eos % (Auto) 0.0, Baso % (Auto) 0.4, Absolute Neuts (auto) 14.6 H, Absolute Lymphs (auto) 0.36 L, Nucleated RBC % 0, Differential Comment SCANNED, Sodium 142, Potassium 4.8, Chloride 95 L, Carbon Dioxide 8.7 L*, Anion Gap 39 H, BUN 17, Creatinine 1.34 H, Estim Creat Clear Calc 92.75, Est GFR (MDRD) Non-Af 74, BUN/Creatinine Ratio 12.5, Glucose 335 H, Calcium 9.7, Magnesium 1.7, Total Bilirubin 0.79, AST 97 H, ALT 103 H, Alkaline Phosphatase 96, Troponin T High Sens 14, Total Protein 7.4, Albumin 4.6, Globulin 2.8, Albumin/Globulin Ratio 1.6, Lipase 1323 H 05/10/25 20:00: Ethyl Alcohol < 10.1 05/10/25 21:27: POC Glucose 288 H 05/10/25 21:40: Troponin T Hi Sens 2 Hr 16, b-Hydroxybutyric mmol/L 7.9 H 05/10/25 22:00: Sodium 140, Potassium 4.7, Chloride 99, Carbon Dioxide 12.9 L, A nion Gap 28 H, Phosphorus 1.1 L*, Magnesium 1.7, Urine Color Yellow, Urine Clarity Clear, Urine pH 6.0, Ur Specific [place] 1.020, Urine Protein 30 H, U rine Glucose (UA) 1000 H, Urine Ketones 150 A*, Urine Occult Blood Negative, Urine Nitrite Negative, Urine Bilirubin Negative, Urine Urobilinogen Normal, Ur Leukocyte Esterase Negative, Urine RBC 0 SEEN, Urine WBC 0 SEEN, Ur Squamous Epith Cells 0 SEEN, Urine Bacteria 0 SEEN, Urine Mucus 0 SEEN 05/10/25 22:33: POC Glucose 222 H 05/10/25 23:18: POC Glucose 166 H 05/11/25 00:12: Troponin T Hi Sens 4Hr 17 05/11/25 00:22: POC Glucose 179 H 05/11/25 01:25: POC Glucose 188 H 05/11/25 01:55: Sodium 140, Potassium 4.3, Chloride 104, Carbon Dioxide 20.4 L, Anion Gap 16 H, Phosphorus 1.5 L, Magnesium 1.7 05/11/25 02:40: POC Glucose 180 H 05/11/25 03:32: POC Glucose 165 H 05/11/25 04:42: POC Glucose 152 H 05/11/25 05:33: POC Glucose 127 H 05/11/25 05:52: Sodium 137 05/11/25 05:52: Sodium 138, Potassium 3.9 05/11/25 05:52: Potassium 4.0, Chloride 105 05/11/25 05:52: Chloride 105, Carbon Dioxide 22.8 05/11/25 05:52: Carbon Dioxide 21.5, Anion Gap 10 05/11/25 05:52: Anion Gap 12, BUN 18, Creatinine 1.08, Estim Creat Clear Calc 115.08, Est GFR (MDRD) Non-Af 96, BUN/Creatinine Ratio 16.3, Glucose 127 H, Calcium 8.1, Phosphorus 2.3 L, Magnesium 1.8 05/11/25 06:22: POC Glucose 132 H 05/11/25 07:35: POC Glucose 113 H 05/11/25 08:25: POC Glucose 113 H 05/11/25 09:27: POC Glucose 114 H 05/11/25 10:00: WBC Cancelled, Corrected WBC Cancelled, RBC Cancelled, Hgb Cancelled, Hct Cancelled, MCV Cancelled, MCH Cancelled, MCHC Cancelled, RDW Std Deviation Cancelled, RDW Coeff of Last Cancelled, Plt Count Cancelled, MPV Cancelled, Immature Gran % (Auto) Cancelled, Neut % (Auto) Cancelled, Lymph % (Auto) Cancelled, [place] % (Auto) Cancelled, Eos % (Auto) Cancelled, Baso % (Auto) Cancelled, Absolute Neuts (auto) Cancelled, Absolute Lymphs (auto) Cancelled, Total Counted Cancelled, Neutrophils % (Manual) Cancelled, Band Neutrophils % Cancelled, Lymphocytes % (Manual) Cancelled, Monocytes % (Manual) Cancelled, Eosinophils % (Manual) Cancelled, Basophils % (Manual) Cancelled, Metamyelocytes % Cancelled, Myelocytes % Cancelled, Promyelocytes % Cancelled, Blast Cells % Cancelled, Plasma Cell % (Manual) Cancelled, Other Cells % Cancelled, Nucleated RBC % Cancelled, Nucleated RBCs/100 WBC Cancelled, Differential Comment Cancelled, Diff Path Review Cancelled, Hypersegmented Neuts Cancelled, Atypical Lymphocytes Cancelled, Reactive Lymphocytes Cancelled, Smudge Cells Cancelled, Toxic Granulation Cancelled, Toxic Vacuolation Cancelled, Dohle Bodies Cancelled, Craig Rods Cancelled, Platelet Estimate Cancelled, Plt Morphology Comment Cancelled, RBC Morphology Cancelled 05/11/25 10:00: RBC Morphology Cancelled, Polychromasia Cancelled, Hypochromasia Cancelled, Basophilic Stippling Cancelled, Anisocytosis Cancelled, Microcytosis Cancelled, Macrocytosis Cancelled, Spherocytes Cancelled, Sickle Cells Cancelled, Target Cells Cancelled, Tear Drop Cells Cancelled, Ovalocytes Cancelled, Stomatocytes Cancelled, Singer-Prompton Bodies Cancelled, Maria Guadalupe Cells Cancelled, Bite Cells Cancelled, Crenated Cell Cancelled, Acanthocytes (Spur) Cancelled, Rouleaux Cancelled, Schistocytes Cancelled, Sodium 139, Potassium 4.1, Chloride 105, Carbon Dioxide 18.0 L, Anion Gap 16 H, Hemoglobin A1c 8.3 H, Phosphorus 2.1 L, Magnesium 1.8 05/11/25 10:36: WBC 8.9, RBC 3.96 L, Hgb 12.8 L, Hct 36.8 L, MCV 92.9, MCH 32.3 H, MCHC 34.8, RDW Std Deviation 43.8, RDW Coeff of Last 12.9, Plt Count 115 L, MPV 9.9, Immature Gran % (Auto) 0.300, Neut % (Auto) 76.1 H, Lymph % (Auto) 6.1 L, [place] % (Auto) 16.5 H, Eos % (Auto) 0.5, Baso % (Auto) 0.5, Absolute Neuts (auto) 6.8, Absolute Lymphs (auto) 0.54 L, Nucleated RBC % 0 05/11/25 10:52: Sodium 136, Potassium 3.9, Chloride 103, Carbon Dioxide 20.7 L, Anion Gap 12, BUN 15, Creatinine 0.92, Estim Creat Clear Calc 135.10, Est GFR (MDRD) Non-Af 117, BUN/Creatinine Ratio 16.6, Glucose 168 H, Calcium 7.9 05/11/25 11:27: POC Glucose 183 H Micro: Microbiology 05/10/25 21:55 Mucosa - Nose SARS-CoV-2, Influenza & RSV (PCR) - Final ABG Data ABG results: ABG 05/10/25 20:11 Specimen Type BRITTNY Sample Site Not entered VBG pH 7.36 VBG pO2 47 H VBG HCO3 11 L VBG Total CO2 12 L VBG O2 Sat (Calc) 82 H VBG Base Excess -15 L POC Mix VBG pCO2 Pt Tmp 19.7 L O2 Delivery Device Room Air Radiography Diagnostic Testing: Radiology Impression Abdomen/Pelvis CT 05/10/25 19:48 IMPRESSION: 1. Findings consistent with acute pancreatitis. No signs of pancreatic necrosis or pseudocyst. 2. Hepatomegaly with diffuse hepatic steatosis. 3. Mildly thickened right colon, query acute colitis. Reading Location: [facility] Chest X-Ray 05/10/25 21:20 IMPRESSION: NO ACUTE FINDINGS. Reading [facility] Physical Exam Const alert, oriented x3 and no apparent distress Constitutional Narrative: class III obesity General Appearance: cooperative HEENT normocephalic, head/scalp atraumatic, moist oral mucous membranes and oropharynx normal Eyes EOMs intact bilaterally Neck supple and no JVD Lymph Lymphatic: no lymphedema noted Resp normal respiratory effort, normal air movement and clear to auscultation bilaterally Cardio regular rate, regular rhythm, S1 normal heart sound, S2 normal heart sound and no murmurs Peripheral Pulses: pulses 2+ throughout GI normal to inspection, nondistended, normoactive bowel sounds, soft to palpation and non-tender Extremity normal capillary refill and no clubbing, cyanosis or edema General Extremity: no tenderness to palpation of joints or extremities Skin General Skin Exam: no breakdown Neuro no focal motor deficits and no sensory deficits noted Motor Exam: strength 5/5 throughout Psych thought process normal, cooperative and affect normal Appearance: appropriate Assessment & Plan Assessment/Plan (1) Pancreatitis: (2) Diabetic keto-acidosis: PLAN: Plan #DKA * Admitted with a complaint of DKA. Usually uses insulin pump at home. He had also been drinking heavily. * Anion gap is closed x 2. He did have an anion gap of 16 at around 10 AM but this was thought to be a spurious result and so a stat repeat BMP was done which showed that anion gap was 12 and so anion gap had closed x 2. * Weaned off of insulin drip. Start soft diet as abdominal pain is also resolved. Placed back on his insulin pump. Insulin sliding scale. Accu- Cheks ACHS. * A1c is 8.3. #Acute pancreatitis * Lipase was elevated and he had abdominal pain. Abdominal pain is now resolved. He says he had acute pancreatitis in the past on account of chronic alcohol abuse. * Placed on soft diet and advance as tolerated. #Alcohol use disorder * Patient drank heavily recently and that is what caused the acute pancreatitis. Patient states he does not want to go through the ramp detox program during this admission. Currently on Ativan as needed and thiamine and folic acid. * #Hypertension: On amlodipine and benazepril. IV hydralazine as needed DVT prophylaxis: Lovenox. Charges/Coding Visit Charges Inpatient E&M: 47130 Subs Hosp L2
--- NOTE | 2025-05-11 13:27 | NURSING ---
Pts home continuous insulin infusion device ordered pt already has continuous infusion device on but it is inactive, pt turned on home continuous infusion device at 1327 insulin gtt turned off at 1327.
[2025-05-11] MEDS: INSULIN PUMP (SELF-ADMIN/POM) 1 EACH NOTE (18:17)
[2025-05-12 02:00] VITALS: BP 129/92; PULSE 73; RESP 18; O2SAT 97
[2025-05-12 05:00] VITALS: BP 148/116; PULSE 75; RESP 18; O2SAT 98
[2025-05-12 05:05] LABS: Hematocrit 37.1 % (40-54); Hemoglobin 13.1 g/dL (13.0-16.5); Immature Granulocytes Count 0.030 X10^3/uL (0.0-0.0); Mean Corp Hgb Conc 35.3 g/dL (32-36); Mean Corpuscular Volume 90.9 fL (80-94); Mean Platelet Vol. 10.2 fl (6.2-12.0); NRBC Flagged by Analyzer 0 % (0-5); Platelet Count 118 K/mm3 (150-450); RBC Distribution Width CV 12.6 % (11.6-14.6); RBC Distribution Width SD 41.8 fl (35.1-43.9); Red Blood Count 4.08 M/mm3 (4.6-6.2); White Blood Count 8.3 K/mm3 (4.4-11.0)
[2025-05-12 05:06] VITALS: BMI 25.0
[2025-05-12 05:25] LABS: Anion Gap 12 (5-15); BUN 7 mg/dL (4-19); BUN/Creat Ratio 10.4 RATIO (10-20); Calcium,Total 8.5 mg/dL (7.6-11.0); Carbon Dioxide 21.4 mmol/L (21.0-32.0); Chloride 102 mmol/L (98-108); Estimated Creatinine Clearance 175.05 ml/min (50-250); Glucose 66 mg/dL (70-99); Potassium 3.7 mmol/L (3.3-5.1)
[2025-05-12 08:00] VITALS: BP 157/122; PULSE 83; RESP 16; O2SAT 100
[2025-05-12 12:00] VITALS: BP 139/112; PULSE 92; RESP 20; O2SAT 100
--- NOTE | 2025-05-12 13:22 | DCINST_ITS ---
Discharge Instructions DC O2, CPAP, BIPAP needs Home O2 Discharge instructions: No Dressing / Incision Discharge Activity: Return to Normal Activity Dressing / Incision Call your doctor if you observe: Fever of 101 or Higher, Shortness of breath, Dizziness, Swelling in the ankles and Chest pain Follow Up Care Test Results: Test results from this visit will be discussed in further detail at your follow- up appointment, if applicable. Discharge Plan Admission Admit Date/Time: 05/10/25 22:32 Primary Reason for Your Visit: DKA, Acute pancreatitis Attending Provider: Chiquis Irwin Primary Care Provider: Jarocho Rice Consulting Providers: Colten Crystal Instructions Patient Instructions: Pancreatitis Acute Dc, Ketoacidosis Ch Discharge Orders/Prescriptions Prescriptions: Continued amlodipine-benazepril 5-10 mg capsule 1 cap PO QDAY (DME) blood pressure monitor [Blood Pressure Kit] Kit See Rx Instructions .Route Qty: 1 0RF Rx Instructions: As directed insulin lispro [Humalog U-100 Insulin] 100 unit/mL solution 100 unit subcut .COMPLEX Rx Instructions: basal rate 0.5, sliding scale ac/hs, insulin pump ondansetron 4 mg tablet,disintegrating 4 mg PO Q8H PRN PRN (Reason: Nausea) Qty: 15 0RF (DME) Dexcom G7 Sensor Device See Rx Instructions .Route Qty: 9 1RF Rx Instructions: As directed (DME) Omnipod 5 G6-G7 Pods (Gen 5) Cartridge See Rx Instructions .Route Qty: 30 1RF Rx Instructions: 1 pod q 72 hours Referrals / Follow Up: Jarocho Rice MD [Primary Care Provider, Internal Medicine] - Within 1 Week Disposition Disposition (needs filled in before D/C Order can be placed): Home, Self Care
--- NOTE | 2025-05-12 13:23 | PCM.DC.SUM ---
Providers Date of Admission: 05/10/25 Date of Discharge: 05/12/25 Primary Care Physician: Dr. Jarocho Rice MD Reason For Visit: PANCREATITIS DKA Diagnosis Discharge Diagnosis (1) Pancreatitis: Status: Acute Code(s): K85.90 - Acute pancreatitis without necrosis or infection, unspecified (2) Diabetic keto-acidosis: Status: Resolved Code(s): E11.10 - Type 2 diabetes mellitus with ketoacidosis without coma Plan #DKA Admitted with a complaint of DKA. Usually uses insulin pump at home. He had also been drinking heavily. Anion gap is closed x 2. He did have an anion gap of 16 at around 10 AM but this was thought to be a spurious result and so a stat repeat BMP was done which showed that anion gap was 12 and so anion gap had closed x 2. Weaned off of insulin drip. Start soft diet as abdominal pain is also resolved. Placed back on his insulin pump. Insulin sliding scale. Accu-Cheks ACHS. A1c is 8.3. #Acute pancreatitis Lipase was elevated and he had abdominal pain. Abdominal pain is now resolved. He says he had acute pancreatitis in the past on account of chronic alcohol abuse. Placed on soft diet and advance as tolerated. #Alcohol use disorder Patient drank heavily recently and that is what caused the acute pancreatitis. Patient states he does not want to go through the [facility] detox program during this admission. Currently on Ativan as needed and thiamine and folic acid. #Hypertension: On amlodipine and benazepril. IV hydralazine as needed DVT prophylaxis: Lovenox. Medications at Discharge Home Medications amlodipine 5 mg-benazepril 10 mg capsule 1 cap PO QDAY 08/15/23 blood pressure monitor (Blood Pressure Kit) #1 ea 06/15/24 blood-glucose sensor (Dexcom G7 Sensor device) #9 ea 10/22/24 insulin pump cart,auto,BT,G6/7 (Omnipod 5 G6-G7 Pods (Gen 5) subcutaneous cartridge) #30 ea 12/29/24 insulin lispro 100 unit/mL subcutaneous solution (Humalog U-100 Insulin) 100 unit subcut .COMPLEX 01/22/25 ondansetron 4 mg disintegrating tablet 4 mg PO Q8H PRN PRN Nausea #15 tabs 01/22/25 Hospital Course Operations None Procedures None Summary of Care Provided Minutes Spent on Discharge: 42 Hospital Course: Patient is a 29-year-old male with past medical history as outlined including diabetes mellitus as well as pancreatitis and history of alcohol use disorder. He was admitted through the ED on 05/10/2025 with a complaint of abdominal pain. He had been drinking heavily since March when his father and said he woke up on the day of admission with severe abdominal pain. On admission in the ED he was found to have elevated blood sugars and serum beta hydroxy butyrate was also elevated. His lipase was also elevated and CT of the abdomen and pelvis showed evidence of peripancreatic inflammation and a lipase of 1323. There was also concern about possible colitis in the left lower quadrant though he did not have any pain in that area. Patient used an insulin pump but said he had not used it since the evening before admission because he was binge drinking and forgot to put it on. He was admitted and managed for acute pancreatitis as well as DKA. He was placed on insulin drip and hydrated with IV fluid and initially kept NPO. His abdominal pain resolved and he actually felt better. His anion gap closed x 2 and he was put back on his insulin pump and put on a diet. Patient's blood sugar came controlled after he was placed back on his insulin pump. His abdominal pain also completely resolved and his diet was advanced to a regular diet which he tolerated. He may stable and was discharged on 05/12/2025. Of note patient was offered the ramp program and alcohol detox during this admission but he declined. He is follow-up with his primary care doctor within 1 to 2 weeks. HE was counseled to quit drinking. Patient seen and examined prior to discharge. He felt much better and he had no active complaints. Review of systems otherwise negative. Labs and vitals reviewed. Home medication reviewed and reconciled. Physical Exam Const alert, oriented x3 and no apparent distress Constitutional Narrative: class III obesity General Appearance: cooperative and comfortable HEENT normocephalic, head/scalp atraumatic, hearing grossly normal bilaterally, moist oral mucous membranes and oropharynx normal Mouth: oral and palatal mucosa normal Eyes EOMs intact bilaterally Neck supple and no JVD Lymph Lymphatic: no lymphedema noted Resp normal respiratory effort, normal air movement and clear to auscultation bilaterally Cardio regular rate, regular rhythm, S1 normal heart sound, S2 normal heart sound and no murmurs Peripheral Pulses: pulses 2+ throughout GI normal to inspection, nondistended, normoactive bowel sounds, soft to palpation and non-tender Extremity normal to inspection, full ROM, normal capillary refill and no clubbing, cyanosis or edema General Extremity: no tenderness to palpation of joints or extremities Skin General Skin Exam: no breakdown Neuro oriented x3, moves all extremities, no focal motor deficits and no sensory deficits noted Sensorium / Orientation: awake and alert Motor Exam: strength 5/5 throughout Psych thought process normal, cooperative and affect normal Appearance: appropriate Weight / BMI Weight Weight: 189 lb 9.561 oz Body Mass Index (BMI) 25.0 ABG / Lab / Microbiology Data 05/12/25 04:56 05/12/25 04:56 Laboratory: Laboratory Results - last 24 hr 05/11/25 10:34: POC Glucose 143 H 05/11/25 13:36: POC Glucose 243 H 05/11/25 16:34: POC Glucose 241 H 05/11/25 18:16: POC Glucose 190 H 05/11/25 20:14: POC Glucose 141 H 05/11/25 21:10: POC Glucose 130 H 05/12/25 04:56: WBC 8.3, RBC 4.08 L, Hgb 13.1, Hct 37.1 L, MCV 90.9, MCH 32.1 H, MCHC 35.3, RDW Std Deviation 41.8, RDW Coeff of Last 12.6, Plt Count 118 L, MPV 10.2, Immature Gran % (Auto) 0.400, Neut % (Auto) 70.4 H, Lymph % (Auto) 12.1 L, [place] % (Auto) 15.9 H, Eos % (Auto) 0.8, Baso % (Auto) 0.4, Absolute Neuts (auto) 5.9, Absolute Lymphs (auto) 1.01, Nucleated RBC % 0, Sodium 136, Potassium 3.7, Chloride 102, Carbon Dioxide 21.4, Anion Gap 12, BUN 7, Creatinine 0.71, Estim Creat Clear Calc 175.05, Est GFR (MDRD) Non-Af 128, BUN/Creatinine Ratio 10.4, Glucose 66 L, Calcium 8.5 05/12/25 08:04: POC Glucose 80 05/12/25 11:29: POC Glucose 92 05/12/25 12:28: POC Glucose 99 Microbiology: Microbiology 12/16/25 21:55 Mucosa - Nose SARS-CoV-2, Influenza & RSV (PCR) - Final D/C Instructions Discharge Activity: Return to Normal Activity Weight Bearing Status: Weight bearing as tolerated Call your doctor if you observe: Fever of 101 or Higher, Shortness of breath, Dizziness, Swelling in the ankles and Chest pain DC O2, CPAP, BIPAP Needs Home O2 Discharge instructions: No DC home with Oxygen: No Patient's Goals Of Care - F/U Goals Reviewed Goals of care reviewed with patient: Yes - No change Meaningful Use Info Meaningful Use Meaningful Use Diagnoses (Choose all that apply): None applicable Discharge Plan Admission Admit Date/Time: 05/10/25 22:32 Primary Reason for Your Visit: DKA, Acute pancreatitis Attending Provider: Chiquis Irwin Primary Care Provider: Jarocho Rice Consulting Providers: Colten Crystal Instructions Patient Instructions: Pancreatitis Acute Dc, Ketoacidosis Ch Discharge Orders/Prescriptions Prescriptions: Continued amlodipine-benazepril 5-10 mg capsule 1 cap PO QDAY (DME) blood pressure monitor [Blood Pressure Kit] Kit See Rx Instructions .Route Qty: 1 0RF Rx Instructions: As directed insulin lispro [Humalog U-100 Insulin] 100 unit/mL solution 100 unit subcut .COMPLEX Rx Instructions: basal rate 0.5, sliding scale ac/hs, insulin pump ondansetron 4 mg tablet,disintegrating 4 mg PO Q8H PRN PRN (Reason: Nausea) Qty: 15 0RF (DME) Dexcom G7 Sensor Device See Rx Instructions .Route Qty: 9 1RF Rx Instructions: As directed (DME) Omnipod 5 G6-G7 Pods (Gen 5) Cartridge See Rx Instructions .Route Qty: 30 1RF Rx Instructions: 1 pod q 72 hours Referrals / Follow Up: Jarocho Rice MD [Primary Care Provider, Internal Medicine] - Within 1 Week Disposition Disposition (needs filled in before D/C Order can be placed): Home, Self Care Charges/Coding Visit Charges Inpatient E&M: 51684 Disch Hosp >30min
--- NOTE | 2025-05-12 13:55 | NURSING ---
Pt given discharge instructions including medications, follow up appointments and all other discharge instructions. pt denies any further needs or questions at this time. telemetry removed and placed at nurses station. Both iv's removed with catheters intact, clean dry dressing applied, pt tolerated well. pt waiting on ride and will notify when ready to leave.
--- NOTE | 2025-05-12 14:22 | NURSING ---
pt walked out at this time
== END 2025-05-12 14:18 | disposition home or self-care (01) | DRG 637 ==
LOC: ED 19:32 → ICU 23:33
PROVIDERS: Admitting Provider Family Medicine; Emergency Provider Student in an Organized Health Care Education/Training Program; PCP Internal Medicine; Visit Provider Student in an Organized Health Care Education/Training Program
DX: E10.10 Type 1 diabetes mellitus with ketoacidosis without coma (principal); K85.90 Acute pancreatitis without necrosis or infection, unspecified; F10.239 Alcohol dependence with withdrawal, unspecified; E66.813 Obesity, class 3; I10 Essential (primary) hypertension; Z79.899 Other long term (current) drug therapy; Z96.41 Presence of insulin pump (external) (internal); Z68.25 Body mass index [BMI] 25.0-25.9, adult; Y90.0 Blood alcohol level of less than 20 mg/100 ml
CPT/HCPCS: 71046; 74177; 80048; 80051; 80053; 81001; 82010; 82077; 82803; 82962; 83036; 83690; 83735; 84100; 84484; 85025; 87040; 87631; 93005; 97802; 99285; Q9967; A4216; J2405